=== PATIENT | female | born 1970 | race Caucasian/White ===

== ENCOUNTER → 2020-02-25 15:05 | Outpatient (BNV) | payer MEDICARE, SELFPAY | PROVIDERS: PCP Family Medicine; Visit Provider Internal Medicine | DX: D72.829 Elevated white blood cell count, unspecified (principal); C20 Malignant neoplasm of rectum; K76.89 Other specified diseases of liver | CPT/HCPCS: 99212; 99213; 99214; 99215; G2211 ==

== ENCOUNTER 2020-05-23 11:55 | Outpatient (REF) | payer MEDICARE, SELFPAY ==
--- NOTE | ~2020-05-23 | MM_ITS ---
EXAMINATION: MM SCREENING DIGITAL BREAST TOMOSYNTHESIS, BILATERAL CLINICAL INFORMATION: Screening. Asymptomatic. The lifetime risk of breast cancer based on the Tyrer-Cuzick Model is 7%. COMPARISON: Mammography: 10/16/2018; outside exams 09/28/2015, 05/19/2014 ([place], [place]). TECHNIQUE: Digital breast tomosynthesis is performed in both the craniocaudal and mediolateral oblique views along with computer-aided detection (CAD). Synthesized 2D images are generated from the tomosynthesis. FINDINGS: The breasts are heterogeneously dense, which may obscure small masses (ACR BI-RADS breast composition Category c). Parenchymal pattern is similar to prior studies. There is regional parenchymal asymmetry again noted in the upper outer quadrants, or an right. Bilateral parenchymal asymmetries are stable. There is a small nodule with adjacent biopsy clip marker again seen central 12:00 right breast. There is no interval mass or architectural abnormality or abnormal calcifications. No significant changes. MM/MM tomosynthesis screening BI IMPRESSION: No significant changes from prior exams. ASSESSMENT: BI-RADS 2: Benign RECOMMENDATION: Routine annual mammography screening. This patient's information was entered into a reminder system with a target due date for their next mammogram.
== END 2020-05-23 11:56 | disposition home or self-care (01) ==
LOC: HO.MAMMO 11:55
PROVIDERS: PCP Family Medicine; Visit Provider Family Medicine
DX: Z12.31 Encounter for screening mammogram for malignant neoplasm of breast (principal)
CPT/HCPCS: 77063; 77067

== ENCOUNTER 2020-06-15 10:07 | Outpatient (REF) | payer MEDICARE, SELFPAY ==
[2020-06-15 11:21] LABS: Alanine Aminotransferase 11 U/L (0-31); Albumin Level 4.1 g/dL (3.5-5.0); Alkaline Phosphatase 83 U/L (39-117); Anion Gap 11 (12-20); Aspartate Amino Transferase 12 U/L (5-31); Bilirubin Total 0.3 mg/dL (0.0-1.0); Blood Urea Nitrogen 9 mg/dL (9-16); Calcium 9.1 mg/dL (8.4-10.2); Carbon Dioxide 29 mmol/L (22-29); Chloride 104 mmol/L (96-108); Cholesterol 156 mg/dL; Estimated Glomerular Filt Rate > 60; Glucose Random 103 mg/dL (60-115); HDL Cholesterol 28 mg/dL; LDL Cholesterol Calculated 105 mg/dl; Potassium 4.8 mmol/L (3.3-5.1); Sodium 139 mmol/L (135-145); Total Protein 7.4 g/dL (6.5-8.0); Triglycerides 116 mg/dL
== END 2020-06-15 10:08 | disposition home or self-care (01) ==
LOC: HO.LAB 10:07
PROVIDERS: Absent Provider Internal Medicine; PCP Family Medicine; Visit Provider Family Medicine
DX: D72.829 Elevated white blood cell count, unspecified (principal); E78.5 Hyperlipidemia, unspecified; J44.9 Chronic obstructive pulmonary disease, unspecified
CPT/HCPCS: 36415; 80053; 80061

== ENCOUNTER 2021-04-11 11:16 | Outpatient (REF) | payer MEDICARE, SELFPAY ==
--- NOTE | ~2021-04-11 | MM_ITS ---
EXAMINATION: MM DIAGNOSTIC DIGITAL BREAST TOMOSYNTHESIS, BILATERAL US DIAGNOSTIC ULTRASOUND BREAST, LEFT CLINICAL INFORMATION: Recent palpable fullness subareolar left breast with tenderness. No discharge. Patient started on antibiotics. Due for yearly. No known family history breast cancer. The lifetime risk of breast cancer based on the Tyrer-Cuzick Model is 8%. COMPARISON: Mammography: 05/23/2020, 10/16/2018 TECHNIQUE: Digital breast tomosynthesis is performed in both the craniocaudal and mediolateral oblique views along with computer-aided detection (CAD). Synthesized 2D images are generated from the tomosynthesis. Ultrasound left breast is targeted to the retroareolar region. Grayscale imaging and color Doppler are performed without and with harmonics. FINDINGS: The breasts are heterogeneously dense, which may obscure small masses (ACR BI-RADS breast composition Category c). Right breast parenchymal pattern is similar to prior studies. There are scattered parenchymal asymmetries similar to prior exams. No interval mass or architectural abnormality or abnormal calcifications. There is old biopsy clip marker again seen central 12:00 position. Left breast has new subareolar mass measuring approximately 2 cm in diameter. This extends to the areola. There is borderline/mild nipple retraction. The remainder left breast is unremarkable. The bilateral axilla are stable. Ultrasound left breast demonstrates a complex heterogeneous predominantly cystic mass subareolar left breast measuring approximately 2.0 x 1.8 x 1.5 cm. There is suggestion of uniform thin peripheral rim. Color Doppler shows hyperemia around the mass. No definite color-flow within the lesion. There is mild increased through-transmission of sound. No focal duct ectasia. Results are discussed with the patient at time of visit. Finding left breast is suspicious for abscess. Management options discussed including ultrasound guided aspiration. In the meantime, patient to continue with antibiotics and follow-up with her provider later today for definitive management. Results discussed with primary care provider Ananth Tinajero NP at approximately 1509 hours. Ultrasound-guided aspiration of the lesion recommended and fluid sent for microbiology. If lesion will not aspirate, then this could be converted to core sampling. MM/MM tomosynthesis diagnostic BI IMPRESSION: Left: Complex mass with surrounding hyperemia retroareolar breast 2 cm, suspect abscess. Right: No mammographic evidence of malignancy. ASSESSMENT: BI-RADS 3: Probably Benign RECOMMENDATION: 1. Ultrasound-guided aspiration left breast. If lesion will not aspirate, then conversion to core sampling at same appointment. 2. Patient to continue with antibiotics as prescribed.
== END 2021-04-11 11:17 | disposition home or self-care (01) ==
LOC: HO.MAMMO 11:16
PROVIDERS: PCP Family Medicine; Visit Provider Emergency Medicine
DX: N63.42 Unspecified lump in left breast, subareolar (principal)
CPT/HCPCS: 76642; 77062; 77066

== ENCOUNTER 2021-05-14 13:10 | Outpatient (REF) | payer MEDICARE, SELFPAY | END 2021-05-14 13:11 | disposition home or self-care (01) | LOC: HO.MAMMO 13:10 | PROVIDERS: PCP Family Medicine; Visit Provider Emergency Medicine | DX: Z13.89 Encounter for screening for other disorder (principal) ==

== ENCOUNTER 2021-07-16 10:03 | Outpatient (REF) | payer MEDICARE, SELFPAY ==
--- NOTE | ~2021-07-16 | US_ITS ---
EXAMINATION: US DIAGNOSTIC ULTRASOUND BREAST, LEFT CLINICAL INFORMATION: Six-month follow up left breast lesion, question abscess. COMPARISON: 04/11/2021 and studies dating back to 05/19/2014. TECHNIQUE: Ultrasound of the breast is performed with real-time kuhn scale imaging and color Doppler. FINDINGS: In the retroareolar region approximately 9 o'clock location there is again noted to be a heterogeneous echotexture structure which appears better marginated now than on previous study and is a little smaller in appearance. There is some surrounding vascularity with no definite internal vascularity. Lesion now measures approximately 1.7 x 0.8 x 0.9 cm in size. Lesion is wider than it is tall. No distal sound shadowing is identified and there appears to be some minimal distal sound enhancement. Recommend 6 month followup left breast ultrasound only with mammography to be performed at its yearly interval. Results are discussed with the patient at time of visit. US/US breast LT limited IMPRESSION: Some improvement in appearance of heterogeneous structure retroareolar region 9 o'clock position of the left breast with mild decrease in size. 6 month followup ultrasound is recommended. ASSESSMENT: BI-RADS 3: Probably Benign. RECOMMENDATION: Diagnostic ultrasound in 6 months. This patient's information was entered into a reminder system with a target due date for their next mammogram.
== END 2021-07-16 10:04 | disposition home or self-care (01) ==
LOC: HO.MAMMO 10:03
PROVIDERS: PCP Family Medicine; Visit Provider Emergency Medicine
DX: N64.52 Nipple discharge (principal); N63.42 Unspecified lump in left breast, subareolar
CPT/HCPCS: 76642

== ENCOUNTER 2022-01-31 14:48 | Outpatient (REF) | payer OTHER, SELFPAY | END 2022-01-31 14:49 | disposition home or self-care (01) | LOC: HO.MAMMO 14:48 | PROVIDERS: PCP Family Medicine; Visit Provider Emergency Medicine | DX: N63.25 Unspecified lump in the left breast, overlapping quadrants (principal) | CPT/HCPCS: 76642; 77061; 77065 ==

== ENCOUNTER 2022-07-24 09:40 | Outpatient (REF) | payer OTHER, SELFPAY ==
--- NOTE | ~2022-07-24 | MM_ITS ---
EXAMINATION: MM SCREENING DIGITAL BREAST TOMOSYNTHESIS, BILATERAL CLINICAL INFORMATION: Screening. Asymptomatic. The lifetime risk of breast cancer based on the Tyrer-Cuzick Model is 9%. COMPARISON: Mammography: 01/31/2022, 04/11/2021, 05/23/2020, 10/16/2018; left breast ultrasound 01/31/2022 TECHNIQUE: Digital breast tomosynthesis is performed in both the craniocaudal and mediolateral oblique views along with computer-aided detection (CAD). Synthesized 2D images are generated from the tomosynthesis. FINDINGS: The breasts are heterogeneously dense, which may obscure small masses (ACR BI-RADS breast composition Category c). Parenchymal pattern is similar to prior studies and there is no developing density or interval significant mass or architectural abnormality. There are scattered bilateral stable asymmetries. There is a stable nodule with adjacent biopsy clip marker central mid right breast. No abnormal calcifications. The axilla and skin contours are unremarkable. MM/MM tomosynthesis screening BI IMPRESSION: No mammographic evidence of malignancy. ASSESSMENT: BI-RADS 2: Benign RECOMMENDATION: Routine annual mammography screening. This patient's information was entered into a reminder system with a target due date for their next mammogram.
== END 2022-07-24 09:41 | disposition home or self-care (01) ==
LOC: HO.MAMMO 09:40
PROVIDERS: PCP Family Medicine; Visit Provider Family Medicine
DX: Z12.31 Encounter for screening mammogram for malignant neoplasm of breast (principal)
CPT/HCPCS: 77063; 77067

== ENCOUNTER 2022-09-03 10:29 | Outpatient (REF) | payer OTHER, SELFPAY ==
[2022-09-03 13:33] LABS: Alanine Aminotransferase 34 U/L (0-31); Albumin Level 4.1 g/dL (3.5-5.0); Alkaline Phosphatase 117 U/L (39-117); Aspartate Amino Transferase 14 U/L (5-31); Bilirubin Direct 0.3 mg/dL (0.0-0.5); Bilirubin Total 0.4 mg/dL (0.0-1.0)
== END 2022-09-03 10:30 | disposition home or self-care (01) ==
LOC: HO.HHCL 10:29
PROVIDERS: Visit Provider Family Medicine
DX: R74.01 Elevation of levels of liver transaminase levels (principal)
CPT/HCPCS: 36415; 80076

== ENCOUNTER 2022-10-08 12:26 | Outpatient (REF) | payer OTHER, SELFPAY | END 2022-10-08 12:27 | disposition home or self-care (01) | LOC: HO.HHCL 12:26 | PROVIDERS: Visit Provider Family Medicine | DX: R74.01 Elevation of levels of liver transaminase levels (principal) | CPT/HCPCS: 87338 ==

== ENCOUNTER 2023-01-22 12:05 | Outpatient (REF) | payer OTHER, SELFPAY ==
[2023-01-22 13:29] LABS: Basophils Absolute Auto 0.1 X10*3/uL (0.0-0.2); Basophils Percent Auto 0.4 % (0-2); Eosinophils Absolute Auto 0.1 X10*3/uL (0.0-0.4); Eosinophils Percent Auto 0.7 % (0-4); Hematocrit 43.1 % (37.0-47.0); Hemoglobin 13.7 g/dl (12.0-16.0); Imm Gran Abs Auto 0.04 X10*3/uL (0.00-0.03); Imm Gran Pct Auto 0.3 % (0.0-0.4); Lymphocytes Percent Auto 52.1 % (20-40); MANUAL DIFF FLAG SCAN; Mean Corpuscular HGB Conc 31.8 g/dl (31.0-35.0); Mean Corpuscular Hemoglobin 28.6 pg (27.0-33.0); Mean Platelet Volume 11.5 fL (9.4-12.3); Monocytes Absolute Auto 0.6 X10*3/uL (0.1-1.2); Monocytes Percent Auto 4.8 % (2-11); Neutrophils Absolute Auto 5.6 x10*3/uL (2.0-8.3); Neutrophils Percent Auto 41.7 % (45-73); Platelet Count 220 X10*3/uL (160-400); Red Blood Count 4.79 X10*6/uL (4.20-5.50); Red Cell Distribution Width 21.7 % (11.0-16.0); SCAN SMEAR FLAG 1; White Blood Count 13.4 X10*3/uL (4.8-10.8)
[2023-01-22 13:33] LABS: Estimated Average Glucose 114 mg/dL; Hemoglobin A1c % 5.6 % (<6.0)
[2023-01-22 13:48] LABS: SLIDE REVIEW VERIFIED
[2023-01-22 14:12] LABS: Alanine Aminotransferase 17 U/L (0-31); Albumin Level 4.2 g/dL (3.5-5.0); Alkaline Phosphatase 114 U/L (39-117); Anion Gap 14 (12-20); Aspartate Amino Transferase 15 U/L (5-31); Bilirubin Direct 0.2 mg/dL (0.0-0.5); Bilirubin Total 0.4 mg/dL (0.0-1.0); Blood Urea Nitrogen 10 mg/dL (9-16); Calcium 10.1 mg/dL (8.4-10.2); Carbon Dioxide 26 mmol/L (22-29); Chloride 102 mmol/L (96-108); Cholesterol 132 mg/dL (<200); Estimated Glomerular Filt Rate > 60; Glucose Random 122 mg/dL (60-115); HDL Cholesterol 29 mg/dL (>40); LDL Cholesterol Calculated 77 mg/dL (<100); Magnesium 2.3 mg/dL (1.6-2.6); Potassium 4.4 mmol/L (3.3-5.1); Sodium 138 mmol/L (135-145); Total Protein 8.3 g/dL (6.5-8.0); Triglycerides 130 mg/dL (<150)
[2023-01-22 14:16] LABS: TSH reflex Free T4 0.85 uIU/mL (0.32-4.0); Vitamin D 25-OH Total 10.6 ng/mL (>30)
[2023-01-23 08:06] LABS: HIV AB/AG Nonreactive (Nonreactive); HIV Num 1 0.07 S/CO (0.00-0.99)
== END 2023-01-22 12:06 | disposition home or self-care (01) ==
LOC: HO.HHCL 12:05
PROVIDERS: Visit Provider Family Medicine
DX: F20.9 Schizophrenia, unspecified (principal); E78.5 Hyperlipidemia, unspecified; D72.829 Elevated white blood cell count, unspecified; Z20.2 Contact with and (suspected) exposure to infections with a predominantly sexual mode of transmission; E55.9 Vitamin D deficiency, unspecified
CPT/HCPCS: 36415; 80048; 80061; 80076; 82306; 83036; 83735; 84443; 85025; 87389

== ENCOUNTER 2023-06-30 16:11 | Outpatient (REF) | payer MEDICARE, SELFPAY | END 2023-06-30 16:12 | disposition home or self-care (01) | LOC: HO.LAB 16:11 | PROVIDERS: Visit Provider Internal Medicine | DX: Z13.89 Encounter for screening for other disorder (principal) ==

== ENCOUNTER 2023-07-17 13:42 | Outpatient (AMB) | payer MEDICARE, SELFPAY ==
--- NOTE | 2023-07-17 13:46 | MHC.OFFVIS ---
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 ASL interpretor Suzan Cohennilda present. She is doing well with concerns: diarrhea x 1-2wks. no fever, flu like symptoms, chills or abdominal pain. She reports prior MiraLax use. LMP 01/2023 or 02/2023, spacing out over the last year. Has one meal a day-dinner. Currently not sexually active, lastly 3-4yrs. ago. Denies any vaginal dryness or irritation. STI testing offered; she declines. Last pap smear; 2019, denies any abnormal Pap history. Last mammogram; up-to-date, booked for August 03. Denies any family history of breast, ovarian or colon cancer. She thinks about quitting smoking a little bit, 1 pack a day smoker. FOR[facility]LY [facility], [facility] Medical History History of gallbladder disease Chronic pain of left knee Low vitamin D level Dyslipidemia Mental health disorder Hx of Lyme disease Congenital deafness Surgical History Hx of tubal ligation Hx of appendectomy History of cholecystectomy Hx of foot surgery Family History (Updated 07/17/23 @ 14:29 by GRETTA Madison) Mother Hypertension Social History (Updated 07/17/23 @ 14:12 by Ale Rodas CNM) Household Members: None Housing: Apartment Alcohol intake: former Patient Tobacco Use Status: Current everyday Tobacco user Tobacco use type: Cigarette Cigarette Packs Per Day: 1 Substance Use Type: Marijuana service: No Current occupational status: disabled Female Reproductive History Menstrual Age of Menarche: 15 control method: permanent sterilization Total pregnancies: 4 Full term: 2 Number of Living Children: 2 Ab induced: 1 Ab spontaneous: 1 Date of last pap smear: 02/22/19 (negative) Date of Mammogram: 07/24/22 Review of Systems Const All systems reviewed & are unremarkable except as noted in HPI and below Reports as per HPI Eyes Reports no additional complaints ENT Reports no additional complaints Card Reports no additional complaints Resp Reports no additional complaints GI Reports as per HPI and Reports no additional complaints Reports as per HPI Musc Reports no additional complaints Skin/Breast Reports as per HPI Neuro Reports no additional complaints Psych Reports no additional complaints Endo Reports no additional complaints Augusto/Lymph Reports no additional complaints Aller/Immun Reports no additional complaints Physical Exam Vital Signs: Last Vital Signs BP 94/60 07/17/23 13:49 BMI result Body Mass Index 24.1 Const General: cooperative, healthy appearing, no acute distress, well developed and alert Orientation/consciousness: patient oriented x3 HEENT Head: Yes normal to inspection Teeth and gingiva: other (Teeth removed, no dentures in place) Eyes General: appearance normal, both eyes and all related structures Neck Neck: Yes normal visual inspection Thyroid: Thyroid normal Chest Chest palpation & inspection: normal inspection of the chest and other (no puckering, dimpling, peau de orange, retraction, discharge, masses) Breast/axilla inspection: normal inspection of the breasts Breast/axilla palpation: normal palpation of the breasts Resp Effort & Inspection: normal respiratory effort GI Inspection: Yes normal to inspection Palpation (GI): Soft to palpation Rectal Exam - Female: deferred Other: Liquid stool externally on perineum/ leg General: Yes bladder normal to palpation External Female Exam: normal external appearance and normal appearance of the urethra Speculum Exam - Vagina: normal appearance of the vagina, normal palpation and normal vaginal discharge Speculum Exam - Cervix: normal appearance of the cervix and normal palpation Bimanual exam- vagina & uterus: normal bimanual exam, normal palpation, uterine size normal, bladder normal to palpation, normal palpation and non-tender Bimanual Exam- Adnexa, other: no masses Skin General skin exam: no rashes or lesions noted Rashes: no rashes Neuro General: patient oriented x3 Cognition (Neuro): normal cognition Extrem General: Yes normal to inspection Psych Attitude: cooperative Thought process: Normal thought process present Assessment & Plan Assessment & Plan (1) Encounter for well woman exam with routine gynecological exam: Code(s): Z01.419 - Encounter for gynecological examination (general) (routine) without abnormal findings Category: Medical Plan Discussed: Current recommendations for pap smears per ASCCP guidelines. Breast awareness, periodic self breast exams and yearly mammogram. Maintain a healthy lifestyle. Follow up with Dr. Li regarding diarrhea as soon as possible and continue to hydrate well. Menopause verses perimenopause. Menopause is definitive of 1 year of no menses or 12 months in succession. Report any abnormal uterine bleeding in example prolonged episodes, or short intervals less than [address] Li regarding intention for tobacco sensation for support. Patient verbalizes understanding and agrees to the plan of care. She was given opportunity to ask questions and all questions were answered to the best of my ability. RTO in 1 year for annual editor publications exam. This note is constructed using voice recognition software. While every effort has been made to ensure accuracy, head refrigerating engineer errors may have been included. Coding Level of Care Code New Pt Prev Care 40-64y(86545) Diagnoses Encounter for well woman exam with routine gynecological exam Z01.419
[2023-07-17 13:49] VITALS: BP 94/60; BMI 24.1
== END 2023-07-17 15:08 | disposition home or self-care (01) ==
LOC: HO.HWS 13:42
PROVIDERS: PCP Family Medicine; Visit Provider Advanced Practice Midwife
DX: Z01.419 Encounter for gynecological examination (general) (routine) without abnormal findings (principal)
CPT/HCPCS: G0101

== ENCOUNTER → 2023-07-17 13:42 | Outpatient (BNVA) | payer MEDICARE, SELFPAY | PROVIDERS: PCP Family Medicine; Visit Provider Advanced Practice Midwife | DX: Z01.419 Encounter for gynecological examination (general) (routine) without abnormal findings (principal) | CPT/HCPCS: G0101 ==

== ENCOUNTER → 2023-08-04 14:45 | Outpatient (BNV) | payer MEDICARE, MEDICAID, SELFPAY | PROVIDERS: Visit Provider Radiology Diagnostic Radiology | DX: Z12.31 Encounter for screening mammogram for malignant neoplasm of breast (principal) | CPT/HCPCS: 77063; 77067 ==

== ENCOUNTER 2023-08-04 15:01 | Outpatient (REF) | payer MEDICARE, MEDICAID, SELFPAY ==
--- NOTE | ~2023-08-04 | MM_ITS ---
EXAMINATION: MM SCREENING DIGITAL BREAST TOMOSYNTHESIS, BILATERAL CLINICAL INFORMATION: Screening. Asymptomatic. COMPARISON: Mammography: This study is compared with prior exams dating back to 2019. TECHNIQUE: Procedure with a Digital breast tomosynthesis is performed in both the craniocaudal and mediolateral oblique views along with computer-aided detection (CAD). Synthesized 2D images are generated from the tomosynthesis. FINDINGS: There are scattered areas of fibroglandular density (ACR BI-RADS breast composition Category b). There are no significant masses, abnormal calcifications, or other abnormalities. There is a biopsy tissue marker associated with a benign mass in the superior aspect of the right breast. BI-RADS 2 MM/MM tomosynthesis screening BI IMPRESSION: No mammographic evidence of malignancy. ASSESSMENT: BI-RADS BI-RADS 2 - Benign Findings RECOMMENDATION: Routine annual mammography screening. 1 year F/U This examination should not preclude the clinical evaluation of a suspicious palpable abnormality. This patient's information was entered into a reminder system with a target due date for their next mammogram.
== END 2023-08-04 15:02 | disposition home or self-care (01) ==
LOC: HO.MAMMO 15:01
PROVIDERS: Visit Provider Family Medicine
DX: Z12.31 Encounter for screening mammogram for malignant neoplasm of breast (principal)
CPT/HCPCS: 77063; 77067

== ENCOUNTER 2023-10-08 10:38 | Outpatient (REF) | payer OTHER, SELFPAY ==
[2023-10-08 11:45] LABS: Basophils Absolute Auto 0.1 X10*3/uL (0.0-0.2); Basophils Percent Auto 0.3 % (0-2); Eosinophils Absolute Auto 0.1 X10*3/uL (0.0-0.4); Eosinophils Percent Auto 0.6 % (0-4); Hematocrit 33.6 % (37.0-47.0); Hemoglobin 10.4 g/dl (12.0-16.0); Imm Gran Abs Auto 0.06 X10*3/uL (0.00-0.03); Imm Gran Pct Auto 0.3 % (0.0-0.4); MANUAL DIFF FLAG SCAN; Mean Corpuscular Hemoglobin 23.4 pg (27.0-33.0); Mean Corpuscular Volume 75.5 fL (80.0-98.0); Mean Platelet Volume 9.7 fL (9.4-12.3); Monocytes Absolute Auto 0.9 X10*3/uL (0.1-1.2); Monocytes Percent Auto 5.4 % (2-11); Neutrophils Absolute Auto 9.7 x10*3/uL (2.0-8.3); Neutrophils Percent Auto 55.4 % (45-73); Platelet Count 454 X10*3/uL (160-400); Red Blood Count 4.45 X10*6/uL (4.20-5.50); Red Cell Distribution Width 18.4 % (11.0-16.0); SCAN SMEAR FLAG 1; White Blood Count 17.5 X10*3/uL (4.8-10.8)
[2023-10-08 11:47] LABS: Lymphocytes Absolute Auto 6.6 X10*3/uL (1.2-4.9)
[2023-10-08 12:07] LABS: Estimated Average Glucose 117 mg/dL; Hemoglobin A1c % 5.7 % (<6.0)
[2023-10-08 12:12] LABS: SLIDE REVIEW VERIFIED
[2023-10-08 12:29] LABS: Alanine Aminotransferase 7 U/L (0-31); Albumin Level 3.5 g/dL (3.5-5.0); Alkaline Phosphatase 89 U/L (39-117); Anion Gap 13 (12-20); Aspartate Amino Transferase 8 U/L (5-31); Bilirubin Direct < 0.2 mg/dL (0.0-0.5); Bilirubin Total 0.2 mg/dL (0.0-1.0); Blood Urea Nitrogen 12 mg/dL (9-16); Calcium 9.6 mg/dL (8.4-10.2); Carbon Dioxide 28 mmol/L (22-29); Chloride 101 mmol/L (96-108); Cholesterol 97 mg/dL (<200); Estimated Glomerular Filt Rate > 60; Glucose Random 107 mg/dL (60-115); HDL Cholesterol 25 mg/dL (>40); LDL Cholesterol Calculated 40 mg/dL (<100); Lactate Dehydrogenase 133 U/L (122-220); Magnesium 1.9 mg/dL (1.6-2.6); Sodium 138 mmol/L (135-145); Total Protein 7.1 g/dL (6.5-8.0); Triglycerides 161 mg/dL (<150)
[2023-10-08 12:41] LABS: HIV AB/AG Nonreactive (Nonreactive); HIV Num 1 0.04 S/CO (0.00-0.99)
[2023-10-08 12:48] LABS: TSH reflex Free T4 1.38 uIU/mL (0.32-4.0); Vitamin D 25-OH Total 12.3 ng/mL (>30)
[2023-10-09 12:58] LABS: Alpha Fetoprotein 1.9 ng/mL
== END 2023-10-08 10:39 | disposition home or self-care (01) ==
LOC: HO.LAB 10:38
PROVIDERS: PCP Family Medicine; Visit Provider Family Medicine
DX: F20.9 Schizophrenia, unspecified (principal); D72.829 Elevated white blood cell count, unspecified; R79.89 Other specified abnormal findings of blood chemistry; R59.9 Enlarged lymph nodes, unspecified; Z11.3 Encounter for screening for infections with a predominantly sexual mode of transmission; E78.5 Hyperlipidemia, unspecified
CPT/HCPCS: 36415; 80048; 80061; 80076; 82105; 82306; 82378; 83036; 83615; 83735; 84443; 85025; 87389

== ENCOUNTER 2023-10-23 13:31 | Outpatient (REF) | payer MEDICARE, SELFPAY ==
--- NOTE | ~2023-10-23 | CT_ITS ---
EXAMINATION: CT CHEST, ABDOMEN AND PELVIS WITH CONTRAST CLINICAL INFORMATION: Pretracheal lymph node. Right groin lymph node. COMPARISON: None available. TECHNIQUE: Multidetector volumetric CT imaging of the chest, abdomen, and pelvis was performed after the administration of 85 mL of Omnipaque 300 intravenous contrast without immediate adverse reactions. DOSE LOWERING TECHNIQUES: This CT examination was performed using dose optimization techniques as appropriate, variously including the following: - Automated exposure control - Adjustment of mA and/or kV according to patient size (this includes techniques or standardized protocols for targeted exams where dose is matched to indication/reason for exam; i.e. extremities or head) - Use of iterative reconstruction technique DLP: 236 mGy-cm. FINDINGS: CHEST: LUNGS: 3 mm nodule left upper lobe on image 105 series 7. No focal consolidation. Central airways are patent. MEDIASTINUM: Imaged thyroid gland is unremarkable. Right paratracheal lymph node measures 2.4 x 2.3 cm. No hilar lymphadenopathy. Great vessels are of normal caliber. Heart size is normal. No pericardial effusion. PLEURA: No pleural effusion. AXILLA: No axillary lymphadenopathy. Asymmetrically dense right breast tissue. Advise correlation with recent mammography. ABDOMEN AND PELVIS: LIVER, GALLBLADDER, AND BILIARY TREE: The liver is normal size and contour. Hypervascular lesion in the left hepatic lobe measures 2.3 x 2.7 cm. No biliary ductal dilatation is present. The gallbladder is surgically absent. PANCREAS: No ductal dilatation. SPLEEN: Enlarged. Measures 15.1 cm in AP dimension. ADRENAL GLANDS: 8 mm nodule of the left adrenal apex. No follow-up imaging is recommended. KIDNEYS AND URETERS: The kidneys are normal in size, shape, and attenuation. No hydronephrosis. No perinephric stranding. BLADDER: Unremarkable. GASTROINTESTINAL TRACT: There is an infiltrative soft tissue mass in the presacral region measuring 6.6 x 5.4 x 10.1 cm. There is involvement of the rectosigmoid colon as well as the vagina and cervix. There is extension into the perineum. Small free fluid and inflammatory stranding in the presacral space. A small nodule in the left hemipelvis measures 1.2 x 1.2 cm on image 70 of series 3. Marked fecal retention in the colon. No small bowel obstruction. ABDOMINAL WALL: No significant hernia is appreciated. LYMPH NODES: Enlarged right inguinal lymph node measures 1.9 x 1.4 cm. Right obturator lymph node measures 0.9 x 1.8 cm. VASCULAR: Normal caliber abdominal aorta. PELVIC VISCERA: Uterus and ovaries are within normal limits. OSSEOUS STRUCTURES: No destructive bone lesions. CT/CT abdomen pelvis w IV con IMPRESSION: Infiltrative soft tissue mass in the low pelvis/presacral region measuring 6.6 x 5.4 x 10.1 cm with invasion of the rectosigmoid colon as well as the cervix and vagina. There is extension into the perineum. Small free fluid and inflammatory changes in the presacral space. This most likely represents neoplasm. PET/CT is recommended. There is possible metastatic disease with a small nodule in the left hemipelvis measuring 1.2 x 1.2 cm, an enlarged right inguinal lymph node measuring 1.9 x 1.4 cm and an enlarged right paratracheal lymph node measuring 2.4 x 2.3 cm. 3 mm left upper lobe pulmonary nodule is nonspecific. Hypervascular left hepatic lesion measuring 2.3 x 2.7 cm may be further characterized with MRI. Splenomegaly. Findings were reviewed and discussed with Dr. Li at 9:40 AM on 10/24/2023. Electronically signed by: Lul Kan MD 10/24/2023 09:40 AM EDT
[2023-10-23] MEDS: Barium Sulfate Oral (Vanilla) 450 ML ORAL.SUSP PO ×2 (16:26→16:27)
[2023-10-23] MEDS: iohexoL 350 MG/ML 100 ML INFUS..BTL IV (16:26)
== END 2023-10-23 13:32 | disposition home or self-care (01) ==
LOC: HO.CT 13:31
PROVIDERS: PCP Family Medicine; Visit Provider Family Medicine
DX: R59.9 Enlarged lymph nodes, unspecified (principal); R93.89 Abnormal findings on diagnostic imaging of other specified body structures
CPT/HCPCS: 71260; 74177; Q9967

== ENCOUNTER 2023-10-28 10:16 | Inpatient (IN) | payer OTHER, SELFPAY ==
--- NOTE | ~2023-10-28 | US_ITS ---
Pelvic mass with enlarged right inguinal lymph node PROCEDURES: 1. Limited preprocedure ultrasound of the groin. Permanent images saved in PACS. 2. Ultrasound-guided biopsy of a right inguinal lymph node 3. Limited postprocedure ultrasound of the right groin. Permanent images saved in PACS. CLINICIANS: Shayne Parish PA-C MEDICATIONS: -Lidocaine 1% 10 mL SQ -Antibiotics: None -For additional details, please see nursing flowsheet. COMPLICATIONS: None ESTIMATED BLOOD LOSS: < 5 ml CONTRAST: None SPECIMENS: 5 x 18 g cores were sent for pathology and flow cytometry. PROCEDURE NOTE: The procedure, risks, benefits, and alternatives were carefully explained to the patient and written informed consent was obtained. The patient was placed supine on the exam table. A timeout was performed. A limited ultrasound of the right groin was performed to localize the enlarged, abnormal right inguinal lymph node and choose appropriate needle entry and trajectory. The patient was prepped and draped in usual sterile fashion. The skin and deeper soft tissues were anesthetized with lidocaine. Under ultrasound guidance, a 17 gauge trocar needle was advanced to the right inguinal lymph node An 18 gauge biopsy device was inserted through the trocar needle advanced into the lesion. A total of 5, 18-gauge cores were performed. The specimens were placed in formalin and RPMI. The needle was removed. A limited post procedure ultrasound was then performed. Images were saved in PACS. A dry dressing was applied and secured with Tegaderm. There were no immediate complications. The patient was stable after the procedure and was transferred to the patient's room. US/US biopsy lymph node Impression: Ultrasound-guided biopsy of right inguinal lymph node. This procedure was performed by Shayne Parish PA-C and supervised by Dr. Forbes. Electronically signed by: Sky Forbes MD 11/06/2023 03:19 PM EDT
--- NOTE | ~2023-10-28 | XR_ITS ---
EXAMINATION: XR CHEST CLINICAL INFORMATION: Hypoxia COMPARISON: CT scan of the chest October 2023 TECHNIQUE: Frontal view of the chest was obtained. FINDINGS: Subtle ill-defined opacity overlying the mid-upper right lung. Left lung clear. Cardiomediastinal silhouette normal. Bone and soft tissues unremarkable XR/XR chest 1V IMPRESSION: Subtle ill-defined opacity overlying the mid-upper right lung. This this is not present on the prior CT exam. This could reflect a developing pneumonia. Electronically signed by: Vicente Hutson MD 11/05/2023 03:31 PM EDT
[2023-10-28 10:31] VITALS: BP 92/67; PULSE 96; RESP 18; TEMP 37.1; O2SAT 97; BMI 21.4
[2023-10-28 10:57] LABS: Basophils Absolute Auto 0.1 X10*3/uL (0.0-0.2); Basophils Percent Auto 0.4 % (0-2); Eosinophils Absolute Auto 0.1 X10*3/uL (0.0-0.4); Eosinophils Percent Auto 0.6 % (0-4); Hematocrit 30.2 % (37.0-47.0); Hemoglobin 9.5 g/dl (12.0-16.0); Imm Gran Abs Auto 0.06 X10*3/uL (0.00-0.03); Imm Gran Pct Auto 0.4 % (0.0-0.4); Lymphocytes Absolute Auto 7.1 X10*3/uL (1.2-4.9); Lymphocytes Percent Auto 42.9 % (20-40); MANUAL DIFF FLAG SCAN; Mean Corpuscular HGB Conc 31.5 g/dl (31.0-35.0); Mean Corpuscular Hemoglobin 23.5 pg (27.0-33.0); Mean Corpuscular Volume 74.8 fL (80.0-98.0); Mean Platelet Volume 8.6 fL (9.4-12.3); Monocytes Absolute Auto 0.8 X10*3/uL (0.1-1.2); Monocytes Percent Auto 4.9 % (2-11); Neutrophils Absolute Auto 8.4 x10*3/uL (2.0-8.3); Neutrophils Percent Auto 50.8 % (45-73); Platelet Count 412 X10*3/uL (160-400); Red Blood Count 4.04 X10*6/uL (4.20-5.50); SCAN SMEAR FLAG 1; White Blood Count 16.4 X10*3/uL (4.8-10.8)
[2023-10-28 11:01] LABS: Red Cell Distribution Width 17.8 % (11.0-16.0)
--- OUTSIDE RECORDS SUMMARY | 2023-10-28 11:26 | XMS_ITS | Continuity of Care Document ---
Author Organization [facility] Address [address] [place] [address]- Care Team Providers Care Supervisory Civil Engineer Name Role Phone Sneha Li MD Primary Care Physician Encounter 05/30/23 - 06/12/23 [facility] [address] [place] [id number]- Discharge Disposition: GOALS MET Allergies, Adverse Reactions, Alerts No Known Allergies Immunizations Given and Recorded Vaccine Date Status Refusal Reason pneumococcal 23-valent vaccine 11/22/19 Given influenza virus vaccine, inactivated 11/22/19 Give n Medications Ativan 0.5 mg oral tablet 1 tablet = 0.5 mg, By Mouth, Daily at bedtime, Maintenance, 04/29/23 10:55:00 EDT, Partial fill upon patient request if the prescription is for a schedule II opioid drug. Start Date: 04/29/23 Status: Ordered Colace sodium 100 mg oral capsule 100 mg, 1, capsule, By Mouth, 2 times a day, PRN, # 100 capsule, Refills 0, Tot. Refills 0, Maintenance, for constipation, 05/29/23 13:46:00 EDT, Route to Pharmacy Electronically, [facility], Partial fill upon patient request if the pres... Start Date: 05/29/23 Status: Ordered MiraLax oral powder for reconstitution = 17 Gm, By Mouth, Daily, PRN Constipation, Maintenance, 04/29/23 10:54:00 EDT, Partial fill upon patient request if the prescription is for a schedule II opioid drug. Start Date: 04/29/23 Status: Ordered omeprazole 20 mg oral delayed release tablet 1 tablet = 20 mg, By Mouth, Daily, PRN Dyspepsia, # 30 capsule, 0 Refills, Maintenance, 08/10/22 11:15:00 EDT, CR Tablet, Partial fill upon patient request if the prescription is for a schedule II opioid drug. Start Date: 08/10/22 Status: Ordered risperiDONE 1 mg oral tablet 0.5 mg, 0.5, tablet, By Mouth, Daily, @Noon, Maintenance, 04/29/23 10:53:00 EDT, Partial fill upon patient request if the prescription is for a schedule II opioid drug. Start Date: 04/29/23 Status: Ordered risperiDONE 1 mg oral tablet 1 mg, 1, tablet, By Mouth, Daily in AM, Refills 0, Maintenance, 08/10/22 10:12:00 EDT, Partial fillupon patient request if the prescription is for a schedule II opioid drug. Start Date: 08/10/22 Status: Ordered risperiDONE 4 mg oral tablet 1 tablet = 4 mg, By Mouth, Daily at bedtime, Maintenance, 04/29/23 10:54:00 EDT, Partial fill upon patient request if the prescription is for a schedule II opioid drug. Start Date: 04/29/23 Status: Ordered Walker See Instructions, # 1 each, Maintenance, walker with wheels, 05/02/23 12:12:00 EDT, dx post procedure weakness, Supply Start Date: 05/02/23 Status: Ordered Walker See Instructions, # 1 each, Maintenance, walker with wheels, 05/02/23 12:16:00 EDT, dx post procedure weakness, Supply Start Date: 05/02/23 Status: Ordered Problem List Condition Confirmation Course Effective Dates Status Health St at[facility] Informant Cigarette nicotine dependence Confirmed Active Chronic psychosis Confirmed Active Social History Social History Type Response Smoking Status Former smoker, quit more than 30 days ago; Other: Pt quit 3 months ago; entered on: 04/28/23 Sex Patient Care team information Care Team Personnel Name: Sneha Li MD Position: [facility] Outreach Member Role: PCP Address: Address: [address] [place] [address] [place] [id number] Name: Rebeka Jimenez RN Position: S RN Member Role: Primary Care Nurse Name: Jamaal Cooney RN Position: S RN Member Role: Primary Care Nurse Name: Cathleen Hudson RN Position: S RN Member Role: Primary Care Nurse Name: Kathleen Muniz RN Position: S RN Member Role: Primary Care Nurse Care Team Related Persons Name: ROLA VEGA Name: SHA CORONADO Name: GAUTAM MONTIEL Address: home [address] [place] [address]
--- OUTSIDE RECORDS SUMMARY | 2023-10-28 11:26 | XMS_ITS | Continuity of Care Document ---
Author Organization [facility] Address [address] [place] [id number]- Care Team Providers Care Bead Wrapper Name Role Phone [place] Sneha AVILEZ Primary Care Physician Encounter [facility] Date(s): 05/02/23 - 06/01/[address] [id number] Attending Physician: Not on Staff, Attending MD Admitting Physician: Not on Staff, Admitting MD Referring Physician: Not on Staff, Referring MD Allergies, Adverse Reactions, Alerts No Known Allergies Immunizations Given and Recorded Vaccine Date Status Refusal Reason pneumococcal 23-valent vaccine 11/22/19 Given influenza virus vaccine, inactivated 11/22/19 Give n Medications amoxicillin-clavulanate 875 mg-125 mg oral tablet 1 tablet, By Mouth, 2 times a day, for 4 days, # 7 tablet, 0 Refills, Acute 06/02/23 13:44:00 EDT, 05/29/23 13:44:00 EDT, Tablet, [facility], Partial fill upon patient request if the prescription is for a schedule II opioid drug., 159, c... Start Date: 05/29/23 Stop Date: 06/02/23 Status: Ordered Ativan 0.5 mg oral tablet 1 tablet [...] 05/29/23 13:46:00 EDT, Route to Pharmacy Electronically, [facility], Partial fill upon patient [...] opioid drug. Start Date: 04/29/23 Status: Ordered Tylenol 325 mg oral tablet 650 mg, By Mouth, Every 4 hours, for 14 days, # 84 tablet, Refills 0, Tot. Refills 0, Acute 06/12/23 13:44:00 EDT, 05/29/23 13:44:00 EDT, Route to Pharmacy Electronically, [facility], Partial fill upon patient request if the prescription... Start Date: 05/29/23 Stop Date: 06/12/23 Status: Ordered Walker See Instructions, # 1 [...] Care team information Care Team Personnel Name: Guillermo AVILEZ , Sneha Arceo Position: [facility] Outreach Member Role: PCP Address: Address: [address] [place] [address] [place] [id number] Name: eRbeka Jimenez RN Position: S RN Member Role: Primary Care Nurse Name: Jamaal Cooney RN Position: S RN Member Role: Primary Care Nurse Name: Cathleen Hudson RN Position: S RN Member Role: Primary Care Nurse Name: Kathleen Muniz RN Position: S RN Member Role: Primary Care Nurse Care Team Related Persons Name: ROLA VEGA Name: SHA CORONADO Name: GAUTAM MONTIEL Address: [address] [place] [address]
--- OUTSIDE RECORDS SUMMARY | 2023-10-28 11:26 | XMS_ITS | Continuity of Care Document ---
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 Pitting Machine Operator Name Role Phone Sneha Li MD Primary Care Physician Encounter [facility] [place] Date(s): 09/05/22 - 10/24/[address] [place], [place] [address] Attending Physician: Jaylene Guajardo MD Referring Physician: Sneha Li MD Allergies, Adverse Reactions, Alerts No Known Allergies Immunizations Given and Recorded Vaccine Date Status Refusal Reason pneumococcal 23-valent vaccine 11/22/19 Given influenza virus vaccine, inactivated 11/22/19 Give n Medications diazepam 2 mg oral tablet 2 mg, 1, tablet, By Mouth, Daily, PRN, Refills 0, Maintenance, as needed for anxiety, 08/10/22 11:12:00 EDT, Partial fill upon patient request if the prescription is for a schedule II opioid drug. Start Date: 08/10/22 Status: Ordered LORazepam 0.5 mg oral tablet 1 tablet = 0.5 mg, By Mouth, 2 times a day, PRN Anxiety, # 60 tablet, 0 Refills, Maintenance, 11/29/19 11:39:00 EDT, Tablet Start Date: 11/29/19 Status: Ordered omeprazole 20 mg oral delayed release tablet 1 tablet = 20 mg, By Mouth, Daily, PRN Dyspepsia, # 30 tablet, 0 Refills, Maintenance, 08/10/22 11:15:00 EDT, CR Tablet, Partial fill upon patient request if the prescription is for a schedule II opioid drug. Start Date: 08/10/22 Status: Ordered risperiDONE 1 mg oral tablet See Instructions, 1 tabletin am and 1/2 tab at noon, Refills 0, Maintenance, 08/10/22 10:12:00 EDT,Instructions Replace Required Details, Partial fill upon patient request if the prescription is fora schedule II opioid drug. Start Date: 08/10/22 Status: Ordered risperiDONE 4 mg oral tablet 1 tablet = 4 mg, By Mouth, Daily at bedtime, # 14 capsule, 0 Refills, Maintenance, 01/14/21 17:58:00 EST, [facility] #[id number], 158, cm, 01/14/21 10:58:00 EST, Height, 61.3, kg, 01/14/21 10:58:00 EST, Dry Weight Start Date: 01/14/21 Status: Ordered sertraline 50 mg oral tablet 1 tablet = 50 mg, By Mouth, Daily, # 30 tablet, 0 Refills, Maintenance, 08/25/22 14:48:00 EDT, Tablet, [facility], Partial fill upon patient request if the prescription is for a schedule II opioid drug., 158, cm, 08/25/22 7:37:00 EDT, He... Start Date: 08/25/22 Stop Date: 09/24/22 Status: Ordered Problem List Condition Confirmation Course Effective Dates Status [facility] Informant Cigarette nicotine dependence Confirmed Active Obese class I Confirmed Active Chronic psychosis Confirmed Active Social History Social History Type Response Smoking Status 10 or more cigarette s (1/2 pack or more)/day in last 30 days entered on: 03/23/19 Sex Patient Care team information Care Team Personnel Name: Guillermo AVILEZ , Sneha Arceo Position: [facility] Outreach Member Role: PCP Address: Address: [address] [place] [address] [address] Name: Alana Palma RN Position: S RN Member Role: Primary Care Nurse Name: Cathy Ramírez RN Position: S RN Member Role: Primary Care Nurse Name: Kathleen Muniz RN Position: S RN Member Role: Primary Care Nurse Care Team Related Persons Name: SHA CORONADO Name: GAUTAM MONTIEL
--- OUTSIDE RECORDS SUMMARY | 2023-10-28 11:26 | XMS_ITS | Continuity of Care Document ---
Author Organization [facility] Address [address] [facility] [place] [address]- Care Team Providers Care Still Photographer Name Role Phone [place] Sneha AVILEZ Primary Care Physician Encounter 05/07/23 - 05/14/23 [facility] [address], [address] [place], [place] [address] Attending Physician: Hitesh Gomez MD Admitting Physician: Hitesh Gomez MD Referring Physician: Hitesh Gomez MD Allergies, Adverse Reactions, Alerts No Known [...] Mouth, 2 times a day, PRN, # 20 capsule, Refills 0, Tot. Refills 0, Maintenance, for constipation, 05/02/23 10:09:00 EDT, Route to Pharmacy Electronically, [facility], Partial fill upon patient request if the presc... Start Date: 05/02/23 Status: Ordered MiraLax oral powder for reconstitution [...] List Condition Confirmation Course Effective Dates Status [facility] at Informant Cigarette nicotine dependence Confirmed Active Chronic psychosis Confirmed Active Results Radiology Reports * Exam Date Time Procedure Performing Provider Status 05/07/23 11:[address] Abd/Pelvis W/ IV + Oral Contrast Danyelle Bean (Verified) Notes: (CT Abd/Pelvis W/ IV + Oral Contrast) Reason For Exam: Other:;Other: RESULT: CT Abd/Pelvis W/ IV + Oral Contrast CT Abd/Pelvis W/ IV + Oral Contrast Reason: History of ruptured appendicitis status post drain placement. TECHNIQUE: Spiral CT through the abdomen and pelvis with IV contrast formatted in 3 planes. 100 cc of Omnipaque 300 was administered intravenously. This study was performed with oral contrast. Weight-based protocol using automatic tube modulation was used to optimize exposure parameters. CTDIvol Body: 12.32 mGy, DLP Body: 672 mGy*cm. COMPARISON: Prior CTs, most recently 04/28/2023. FINDINGS: Insecticide Sprayer View Findings, Lines and Tubes: Right lower quadrant pigtail drainage catheter noted. Visualized Chest: Lung bases are clear. No pleural effusion. The heart is normal in size. No pericardial effusion. Diaphragm: Normal. Liver: Liver is mildly enlarged. There is no focal hepatic mass. The main portal vein is patent. Gallbladder: Absent consistent with prior cholecystectomy. Bile ducts: No biliary ductal dilation. Spleen: Spleen is enlarged measuring 15.6 cm in AP dimension. Pancreas: Normal. Adrenal glands: Normal. Kidneys and ureters: No hydronephrosis, stones, or suspicious masses. Bladder: Normal. Reproductive organs: Unremarkable. Stomach, small bowel, and large bowel: The stomach and small bowel are unremarkable. Scattered fluid levels are seen in the colon. Small outpouching/diverticulum is seen along the right upper lateralrectal wall with minimal surrounding stranding (series 2, image 140), likely related to the abscessabove it. Appendix: 8 mm calcified appendicolith is again seen in the mid appendix, with dilated thick-walledappendix distal to this measuring up to about 1.3 cm in diameter. Peritoneum and retroperitoneum: There is been interval placement of a drain in the right pelvis entering anteriorly. Previously noted multiloculated abscess has significantly decreased in size with surrounding stranding noted. A small discrete component is seen deep in the pelvis, posterior to the pigtail catheter measuring about 2.9 x 1.4 cm (series 2, image 125). There is no free air. No omental or mesenteric lesions. Lymph nodes: No enlarged lymph nodes. Blood vessels: Moderate calcified and noncalcified plaque seen along the aorta. No aortic aneurysm.No evidence of venous thrombosis. Abdominal and pelvic wall: Right lower quadrant anterior abdominal wall pigtail catheter is present. Bones: Mild degenerative changes are seen in the spine. IMPRESSION: 1. There has been placement of a right lower quadrant pigtail catheter with significant decrease insize in the previously noted abscess. A residual 2.9 x 1.4 cm abscess is seen deep in the right pelvis. 2. 8 mm calcified appendicolith is again seen with wall thickening and dilatation of the appendix distal to this consistent with appendicitis. 3. Fluid levels are seen in the colon, which may represent diarrheal illness. This should be correlated clinically. 4. Hepatosplenomegaly. WSN: [id number] Ordering Physician: Hitesh Gomez Dictated By: Toyin Mcbride MD Dictated Date/Time: 05/07/23 12:36 p Reviewed By: Toyin Mcbride MD Signed By: Toyin Mcbride MD Signed Date/Time: 05/07/23 12:36 pm Transcribed By: CSTashi Transcribed Date/Time: 05/07/23 12:03 pm Social History Social History Type Response Smoking Status Former smoker, quit more than 30 days ago; Other: Pt quit 3 months ago; entered on: 04/28/23 Sex Patient Care team information Care Team Personnel Name: Sneha Li MD Position: [facility] Outreach Member Role: PCP Address: Address: [address] [place] [address] [place] [address] Name: Rebeka Jimenez RN Position: S RN Member Role: Primary Care Nurse Name: Jamaal Cooney RN Position: S RN Member Role: Primary Care Nurse Name: Kathleen Muniz RN Position: S RN Member Role: Primary Care Nurse Care Team Related Persons Name: ROLA VEGA Name: SHA CORONADO Name: GAUTAM MONTIEL
--- OUTSIDE RECORDS SUMMARY | 2023-10-28 11:26 | XMS_ITS | Continuity of Care Document ---
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 Outreach Member Role: PCP Address: Address: [address] [place] [address] [address] [place], [place] [address] Name: Rebeka Jimenez RN Position: S RN Member Role: Primary Care Nurse Name: Jamaal Cooney RN Position: S RN Member Role: Primary Care Nurse Name: Cathleen Hudson RN Position: S RN Member Role: Primary Care Nurse Name: Kathleen Muniz RN Position: S RN Member Role: Primary Care Nurse Care Team Related Persons Name: ROLA VEGA Name: SHA CORONADO Name: ST LARASchuylerGAUTAM Address: [place] [address] [place] [address]
--- OUTSIDE RECORDS SUMMARY | 2023-10-28 11:26 | XMS_ITS | Continuity of Care Document ---
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 Past Surgical History not reported ?? Social History Alcohol Details:??Use: Never. Substance Abuse Details:??Use: Past. ??Type: Marijuana. Tobacco Details:??Use: 10 or more cigarettes (1/2 pack or more)/day in last 30 days. ? Psychosocial History ??smokes few cig, but quite recently, no drinking or marijuana ?? Family History negative for stones ? Medications Home Medications Diazepam (diazepam 2 mg oral tablet)?2?Milligram?1?tablet?By Mouth?Daily?as needed?as needed for anxiety Lorazepam (LORazepam 0.5 mg oral tablet)?1?tab(s)?0.5?Milligram?By Mouth?2 times a day?as needed?Anxiety Omeprazole (omeprazole 20 mg oral delayed release tablet)?1?tab(s)?20?Milligram?By Mouth?Daily?as needed?Dyspepsia Risperidone (risperiDONE 4 mg oral tablet)?1?tab(s)?4?Milligram?By Mouth?Daily atbedtime Risperidone (risperiDONE 1 mg oral tablet)?See Instructions?1 tabletin am and 1/2 tab at noon ? Inpatient Medications Medications (7) Active SCHEDULED: (5) Heparin 5000 units/mL Inj (1 mL) (Heparin Inj) ??5,000 units 1 mL, Subcutaneous Injection, 3 times a day NaCl 0.9% Flush 3ml (NaCL 0.9% Flush) ??3 mL, IV Push, Every 8 hours Pantoprazole 20 mg EC Tablet (pantoprazole 20 mg oral delayed release tablet) ??20 mg, By Mouth, Daily Risperidone 1 mg Tablet (risperiDONE 1 mg oral tablet) ??1.5 mg, By Mouth, Daily before lunch Risperidone 1 mg Tablet (risperiDONE 1 mg oral tablet) ??4 mg, By Mouth, Daily at bedtime CONTINUOUS: (1) Lactated Ringers (1000 mL) Cont IV 1,000 mL (LR 1,000 mL) ??1,000 mL, IV Infusion, 125 mL/hr PRN: (1) Diazepam 2 mg Tablet (diazepam 2 mg oral tablet) ??2 mg, By Mouth, Daily ? EKG study * Event Display: ECG 12-Lead Authored Date: Please click on pdf link to open report * Event Display: ECG 12-Lead Authored Date: Ventricular Rate: 67 BPM Atrial Rate: 67 BPM P-R Interval: 170 ms QRS Duration: 74 ms Q-T Interval: 402 ms QTC Calculation(Bazett): 424 ms P [place]: 50 degrees R [place]: 69 degrees T [place]: 53 degrees Normal sinus rhythm Normal ECG When compared with ECG of 14-JAN-2021 10:11, No significant change was found Confirmed by WALT VERA MD ([id number]) on 08/22/2022 4:13:28 PM [place]: WALT VERA MD * Event Display: EKG Authored Date: Hospital Progress note * Isabelle Benavides MD, [facility]: PERFORM Event Display: Progress Note Hospital Authored Date: Patient: ??RICK, MAY ? Age:??51 Years?Sex:??Female?:??1970?? Subjective Seen and examined the patient with the help of silver designer machine.?? No acute overnight events.?? LFTs are improving.?? No fevers.?? Leukocytosis is improving.?? Patient tolerating diet.?? Blood pressure labile.?? Patient no longer needs any psychiatric admission after psych evaluation.?? Recommendations provided for medication in hospital and outpatient. Tolerated of lap yoni 08/23.?? Postop??doing well. ASL in person hardware test engineer service is not available to proceed with d/c. So d/c postponed for tomorrow.?? Review of Systems As reviewed above. Objective Vital Signs?? Temperature: 98.2 DegF (08/25/22 07:37:00) Temperature Route: Oral (08/25/22 07:37:00) Pulse Rate: 71 bpm (08/25/22 07:37:00) Respiratory Rate: 18 br/min (08/25/22 07:37:00) Systolic Blood Pressure: 109 mm Hg (08/25/22 07:37:00) Diastolic Blood Pressure: 64 mm Hg (08/25/22 07:37:00) Blood pressure sites: Arm, right (08/25/22 07:37:00) Mean Arterial Pressure: 79 mm Hg (08/25/22 07:37:00) Pulse Pressure: 45 mm Hg (08/25/22 07:37:00) Oxygen Saturation: 98 % (08/25/22 07:37:00) Mode of Delivery (Oxygen): Room air (08/25/22 07:37:00) Early Warning Score: 0 (08/25/22 08:52:29) ? Physical Exam General: lying on the bed, saturating well on room air.?? Cardiovascular: S1, S2. Regular rhythm. No MRG. Respiratory: Reduced breath sound on bases, No RRR.?? Gastrointestinal: Soft, Nontender, Non distended, Normal bowel sounds.?? Bandage + Neurological: Cranial nerves intact. Motor and sensory intact. Results Recent Labs BLOOD COUNT & DIFF WBC 12.2 k/mm3 (High)?? 08/25/2022 00:52 RBC 3.92 m/mm3 (Low)?? 08/25/2022 00:52 Hgb 11.2 Gm/dL (Low)?? 08/25/2022 00:52 Hct 35.3 % (Low)?? 08/25/2022 00:52 MCV 90.1 femtoliters ()?? 08/25/2022 00:52 MCH 28.6 pg ()?? 08/25/2022 00:52 MCHC 31.7 g/dL (Low)?? 08/25/2022 00:52 Platelet Count 188 k/mm3 ()?? 08/25/2022 00:52 RDW-SD 55.3 femtoliters (High)?? 08/25/2022 00:52 MPV 10.0 femtoliters ()?? 08/25/2022 00:52 Nucleated RBC (Automated) 0.0 #/100 WBC'S ()?? 08/25/2022 00:52 Abs. NRBC 0.0 k/mm3 ()?? 08/25/2022 00:52 ?? CHEM GENERAL Sodium 139 mmol/L ()?? 08/25/2022 00:52 Potassium 3.6 mmol/L ()?? 08/25/2022 00:52 Chloride 105 mmol/L ()?? 08/25/2022 00:52 Bicarbonate Level 25 mmol/L ()?? 08/25/2022 00:52 Anion Gap 9 ()?? 08/25/2022 00:52 Glucose Level 126 mg/dL (High)?? 08/25/2022 00:52 BUN 7 mg/dL ()?? 08/25/2022 00:52 Creatinine-Blood 0.7 mg/dL ()?? 08/25/2022 00:52 Estimated GFR Creatinine 101 ML/MIN/1.73 M2 ()?? 08/25/2022 00:52 Calcium 8.0 mg/dL (Low)?? 08/25/2022 00:52 Phosphorus 2.2 mg/dL (Low)?? 08/25/2022 00:52 Magnesium 1.8 mg/dL ()?? 08/25/2022 00:52 Protein, Total 5.4 Gm/dL (Low)?? 08/25/2022 00:52 Albumin 3.1 Gm/dL (Low)?? 08/25/2022 00:52 Alkaline Phosphatase 129 units/L (High)?? 08/25/2022 00:52 AST (SGOT) 72 units/L (High)?? 08/25/2022 00:52 ALT (SGPT) 128 units/L (High)?? 08/25/2022 00:52 Bilirubin, Total 1.0 mg/dL ()?? 08/25/2022 00:52 Bilirubin, Direct 0.7 mg/dL (High)?? 08/25/2022 00:52 Bilirubin, Indirect 0.3 mg/dL ()?? 08/25/2022 00:52 ?? URINE OTHER Est Creatinine Clearance 77.61 mL/min ()?? 08/25/2022 02:00 ? Assessment/Plan 51-year-old female, history of schizophrenia and congenital deafness, extremity with pain and discomfort as well as hallucination. Patient was later found to have some significant choledocholithiasis.? Choledocholithiasis (K80.50):?? Symptomatic cholelithiasis S/p Interval cholecystectomy 08/23 POD 1 Patient was found to have choledocholithiasis on examination and ultrasound??with obstructive stonemeasuring, CBD 1 cm. No signs of infections??as of now(have chronic leukocytosis at baseline)??No fever or??chills. LFTsare trending down s/p??ERCP with sphincterotomy and stones extraction by Dr Latham 08/21 Significant cholelithiasis.?? S/p Interval cholecystectomy 08/23 POD 2 Patient is doing well postoperatively. No fever/chills. She is tolerating a diet?? Dressing down in 2 days, band-aid after that. per surgery team? GERD (gastroesophageal reflux disease) (K21.9):??continue on PPI ?? Auditory Hallucinosis (F28): Worsening auditory hallucination over the last few weeks ??due to??medication nonadherence. Psychiatry was consulted.?? Continue risperidone 1.5 mg a.m and 4 mg at??bedtime Hold sertraline and Valium. Haldol 5 mg 3 times a day for agitation as needed Trazodone 50 mg nightly as needed for insomnia ?? VTE Prophylaxis:??Ambulation Code Status:??Full Patient is medically??and psychiatrically??stable and cleared for discharge ASL in person hardware test engineer service is not available to proceed with d/c. So d/c postponed for tomorrow.? I spent a total of 42??minutes today reviewing the chart/medical records, speaking with the patient, formulating and discussing the treatment plan and documenting the findings in encounter ?? Disclaimer: This dictation was accomplished with use of [employer] voice recognition software, prone tomedical word misidentifications and grammatical errors. The physician does strive to identify and correct these, but some could still be present. Please do not hesitate to contact physician for clarifications.? * Isabelle Benavides MD, [place]: PERFORM Event Display: Progress Note Hospital Authored Date: 2.30 PM. ??Hand Riveter service team was able to??coordinate an in-person military aircraft designer. ??was able to coordinate discharge for today. * Alana Palma RN: PERFORM, SIGN, VERIFY Event Display: Progress Note Hospital Authored Date: Patient: RICK MAY Age: 51 years Sex: Female : 1970 Associated Diagnoses: None Author: Alana Palma RN Findings Problem Related to Evaluation Pt. AOx4, VSS, no complaints of n/v nor abd. pain. During assessment with help of ASL translators pt. reported having active hallucinations, auditory. Denying any visual hallucinations at this time. States she's hearing voices, cannot explain exactly what they're saying but they aren't telling her to harm herself or anyone else. Administered PRN Haldol, seems to be tolerating well. Resting comfortably in bed. Monitoring closely. * Luisa Stover MD: MODIFY, PERFORM, MODIFY, MODIFY, VERIFY, MODIFY, SIGN Event Display: Progress Note Hospital Authored Date: Patient: RICK MAY Age: 51 years Sex: Female : 1970 Associated Diagnoses: None Author: Luisa Stover MD Visit Information Chief Complaint/Reason for Consultation: Hallucinations History of Present Illness Pt is a 51-year-old female, history of schizophrenia and congenital deafness, who presented to the ED with ongoing abd pain, insomnia and hallucination and found to have significant choledocholithiasis. Pt interviewed with the assistance of virtual hourly sign language interpreter. Today pt reports her worsening auditory hallucinations have improved to the point that she no longer wants a voluntary psychiatric admission. She reports I'm fine, I can go home, I am safe at home and I have my psychiatrist and therapist I can call if I need them . She does endorse that she is still hearing voices and ghosts that are bothersome for her but that they have improved. She believesthis may be due to restarting her medications while here in the hospital. She is requesting a VNA at home to assist her in taking her medications. She denies depression, endorses anxiety from voices, reports several nights of poor sleep, endorsessome paranoia, denies confusion or manic symptoms. She firmly denies suicidal ideation, planning orintent, denies homicidal ideation, planning or intent, and appears organized enough to care for herself in the community. She does not appear to be an acute threat to herself or others at this time. Past Psychiatric Hx reviewed: Dx of schizophrenia Therapist: Cristopher OcampoTeresa Psychiatrist: Rod Ohara Psychiatric Admissions: 2019, prior history of tx in [place] ([facility] in 2014), and [facility] in August 2008 and in February, March, and April of 2013. Admissions appear to be for hallucinations. Currently on Risperidone for a few years, previous trials of Geodon, Invega, Invega Sustenna, Paxil, Klonopin Review of Systems 10 point review of systems negative except Pertinent positives as above noted. Objective Mental Status Exam: Appearance: well-groomed. Attitude: cooperative. Motor activity: calm. Mood: anxious. Affect: appropriate. Speech: n/a Perception: reports ongoing AH which have improved over the last few days Orientation: intact. Memory: intact. Judgment: intact. Insight: intact. Thought process: goal-directed. Reliability: fair Suicidality/self-destructive behavior: none. Homicidality/violence: none. Assessment/Plan Results Review Pertinent Physical Data Clinical Measurements and Vital Signs : VITALS 08/24/2022 16:01 EDT Early Warning Score 3.00 08/24/2022 16:01 EDT Height 158 cm Temperature 98.3 DegF Temperature Route Oral Pulse Rate 78 bpm Respiratory Rate 18 br/min Systolic Blood Pressure 110 mm Hg Diastolic Blood Pressure 71 mm Hg Blood pressure sites Arm, right Mean Arterial Pressure 84 mm Hg Pulse Pressure 39 mm Hg Oxygen Saturation 97 % Mode of Delivery (Oxygen) Room air . Impression and Plan Pt is a 51-year-old female, history of schizophrenia and congenital deafness, who presented to the ED with ongoing abd pain, insomnia and hallucination and found to have significant choledocholithiasis. Pt reports worsening AH over the course of the last few weeks and although does not endorse any recent stressors, there does appear to be recent reports of medication non-adherence as well as poor sleep, increased pain. Pt does not currently report any self harm, SI/HI but does endorse not feeling safe returning home with current level of voices. As per patient and records, she does appear to have baseline hx of AH however with medication non-adherence they have been noted to become worse. Today, pt reports she no longer believes she needs voluntary psychiatric admission. This is the second time in the past month she has presented advocating for psychiatric admission and later changed her mind. She does not appear to be an acute danger to herself or to others and can care for herselfin the community, thus she is not a candidate for involuntary psychiatric admission. She appears able to be discharged to home once medically cleared. She can be continued on her home medications at discharge. Dx: Schizophrenia Recommendations: - Pt does not appear to be an acute risk to herself or others and dispo is as per primary team -Continue Risperidone 1.5mg and 4mg qhs -Hold Sertraline and Valium while in the hospital -Can offer haldol 5mg TID prn for agitation, hallucinations -Can offer Trazodone 50mg qhs for insomnia Note * Roro Conner RN: PERFORM Event Display: Discharge/Transfer Note Hospital Authored Date: [id number] Nursing Discharge Note Entered On: 08/25/2022 16:58 EDT Performed On: 08/25/2022 16:57 EDT by Roro Conner RN Nursing Discharge Note 2 Discharge Time : 08/25/2022 16:30 EDT Discharge Level of Care at Discharge : Home/Longterm/Foster Care Patient Left Unit Via : Ambulatory Patient Accompanied Off Unit with : Responsible adult DC Instructions Provided & Signed by Pt : Yes Patient Understands D/C Instructions : Yes Patient Instructions Discharge Signed : Yes Did Pt have Specialty Bed or Wound Vac : No Roro Conner RN - 08/25/2022 16:57 EDT * Thomas Castellano MD: PERFORM Event Display: Discharge/Transfer Note Hospital Authored Date: [id number] Patient: ??RICK, MAY ? Age:??51 Years?Sex:??Female?:??1970?? Patient Information Discharge Location: [facility]4 Primary Care Physician: Not on Staff, PCP Admit Date/Time: 08/19/22 15:40 Discharge Disposition Discharge Disposition: Home: No Services Discharge Diagnosis Choledocholithiasis (K80.50):?? Symptomatic cholelithiasis S/p Interval cholecystectomy GERD Auditory hallucination _ Discharge Medications Acetaminophen (Tylenol 325 mg oral tablet)?650?Milligram?By Mouth?Every 6 hours?as needed?for 5?Days?Pain , Mild Diazepam (diazepam 2 mg oral tablet)?2?Milligram?1?tablet?By Mouth?Daily?as needed?as needed for anxiety Lorazepam (LORazepam 0.5 mg oral tablet)?1?tab(s)?0.5?Milligram?By Mouth?2 times a day?as needed?Anxiety Omeprazole (omeprazole 20 mg oral delayed release tablet)?1?tab(s)?20?Milligram?By Mouth?Daily?as needed?Dyspepsia Polyethylene Glycol 3350 (MiraLax oral powder for reconstitution)?17?gram?By Mouth?Daily?for 5?Days?dissolve in water before taking Risperidone (risperiDONE 4 mg oral tablet)?1?tab(s)?4?Milligram?By Mouth?Daily atbedtime Risperidone (risperiDONE 1 mg oral tablet)?See Instructions?1 tabletin am and 1/2 tab at noon Sertraline (sertraline 50 mg oral tablet)?1?tab(s)?50?Milligram?By Mouth?Daily?for 30?Days?? Medications Started Bowel meds??and??Tylenol Medications Discontinued None Doses Changed None PCP Follow-Up/Heads-Up Follow-up in about 1 to 2 weeks Objective Assessment and Plan 51-year-old female, history of schizophrenia and congenital deafness, extremity with pain and discomfort as well as hallucination. Patient was later found to have some significant choledocholithiasis.? Choledocholithiasis (K80.50):?? Symptomatic cholelithiasis S/p Interval cholecystectomy 08/23 POD 1 Patient was found to have choledocholithiasis on examination and ultrasound??with obstructive stonemeasuring, CBD 1 cm. No signs of infections??as of now(have chronic leukocytosis at baseline)??No fever or??chills. LFTsare trending down s/p??ERCP with sphincterotomy and stones extraction by Dr Latham 08/21 Significant cholelithiasis.?? S/p Interval cholecystectomy 08/23 POD 2 Patient is doing well postoperatively. No fever/chills. She is tolerating a diet?No tub bathing or swimming.?? No heavy lifting.?? She should follow-up with us in 2-3 weeks.? GERD (gastroesophageal reflux disease) (K21.9):??continue on PPI ?? Auditory Hallucinosis (F28): Worsening auditory hallucination over the last few weeks due to??medication nonadherence. Psychiatry was consulted.?? Patient??was resumed??on home dose risperidone??1.5 mg in the a.m. and 4 mg at bedtime She was placed on Haldol??as needed for agitation??and trazodone for insomnia. Patient has not required any trazodone since hospitalization.?? Her hallucination has improved??with medication compliance. Stressed the importance of resuming/taking meds in the community??to prevent??worsening symptoms then requiring hospitalization.?? Psychiatry reevaluated her on 08/24/2022 and deemed safe for discharge. ??Patient does not need any psychiatric admission at this time. Can resume sertraline and Valium as an outpatient but psychiatric. No new prescription??on discharge.. ?? Discharge home today. ? Disclaimer: This dictation was accomplished with use of [employer] voice recognition software, prone tomedical word misidentifications and grammatical errors. The physician does strive to identify and correct these, but some could still be present. Please do not hesitate to contact physician for clarifications.? Vital Signs?? Temperature: 98.2 DegF (08/25/22 07:37:00) Temperature Route: Oral (08/25/22 07:37:00) Pulse Rate: 71 bpm (08/25/22 07:37:00) Respiratory Rate: 18 br/min (08/25/22 07:37:00) Systolic Blood Pressure: 109 mm Hg (08/25/22 07:37:00) Diastolic Blood Pressure: 64 mm Hg (08/25/22 07:37:00) Blood pressure sites: Arm, right (08/25/22 07:37:00) Mean Arterial Pressure: 79 mm Hg (08/25/22 07:37:00) Pulse Pressure: 45 mm Hg (08/25/22 07:37:00) Oxygen Saturation: 98 % (08/25/22 07:37:00) Mode of Delivery (Oxygen): Room air (08/25/22 07:37:00) Early Warning Score: 0 (08/25/22 08:52:29) ? . Physical Exam General: lying on the bed, saturating well on room air.?? Cardiovascular: S1, S2. Regular rhythm. No MRG. Respiratory: Reduced breath sound on bases, No RRR.?? Gastrointestinal: Soft, Nontender, Non distended, Normal bowel sounds.?? Bandage + Neurological: Cranial nerves intact. Motor and sensory intact. Surgical Procedures ERCP with Removal of Calculus 08/21/2022 13:55 Cholecystectomy with Intra-Op Cholangiog 08/23/2022 16:44 Cholecystectomy Open 08/23/2022 16:44 Consultants Surgery Psychiatric Pending Results Add On Lab Order ordered on 08/22/2022 Add On Lab Order ordered on 08/25/2022 Basic Metabolic Panel ordered on 08/26/2022 CBC ordered on 08/26/2022 Hepatic Function Panel ordered on 08/24/2022 Magnesium Level ordered on 08/26/2022 Phosphorus Level ordered on 08/26/2022 Patient Education Titles Discharge Instructions for Laparoscopic Gallbladder Removal Surgery (Cholecystectomy)?? Having Laparoscopic Cholecystectomy?? Follow-Up Appointments Added Follow Up ?Time Frame ?Comments Casandra AVILEZ, Jaylene Gonzalez?2 to 3 weeks?Please call the office to schedule a follow-up appointment. [facility] [phone] Patient Instructions Discharge Instructions? If you develop fever, chills, increased pain, nausea, vomiting, bleeding, or increased redness or pus around the wound please call the surgery office. A narcotic was prescribed to help reduce your pain. Take only as needed for your pain; you may choose to fill the prescription in a lesser amount. When taking opioids, there is an increase chance of abuse and/or overdose. Other side effects/complications include nausea, vomiting, difficulty breathing, sedation and constipation. A stool softener may also be taken to help prevent constipation. Please take medications as prescribed and do not drive while on narcotic medications. ?? You may continue to take Tylenol 650mg every 4-6 hours for pain control if needed ?? Three of your incisions are closed with absorbable sutures and glue.?? The fourth incision is closed with absorbable sutures and dressing.?? The dressing can be removed 48 hours after surgery and then replaced with a Bandaid if needed. ?? If you have any questions, please call the surgery office. ?? Please call your Primary Care Provider within 1 week for post hospital follow up and review of yourmedications. ?? Activity Instructions ?? -No heavy lifting >10 lbs -Increase activity as tolerated -Encourage coughing and deep breathing, use of incentive spirometer -No tub baths until incision(s) has/have healed -May shower 48 hours after surgery -No driving until off narcotics and cleared by Surgery?? Post Discharge Care Diet: Regular Diet Activity: ?? OOB ad Brianna Code Status: ?? Full Resuscitation Discharge ?08/25/22 14:47:00 EDT Discharge Prescriptions ?ePrescribed, ??08/25/22 14:47:00 EDT Home Health Face to Face ^HomeHealthFTF Results Discharge Labs BLOOD BANK Blood Type A Positive ()?? 08/20/2022 13:57 Antibody Screen Negative ()?? 08/20/2022 13:57 ?? BLOOD COUNT & DIFF WBC 12.2 k/mm3 (High)?? 08/25/2022 00:52 RBC 3.92 m/mm3 (Low)?? 08/25/2022 00:52 Hgb 11.2 Gm/dL (Low)?? 08/25/2022 00:52 Hct 35.3 % (Low)?? 08/25/2022 00:52 MCV 90.1 femtoliters ()?? 08/25/2022 00:52 MCH 28.6 pg ()?? 08/25/2022 00:52 MCHC 31.7 g/dL (Low)?? 08/25/2022 00:52 Platelet Count 188 k/mm3 ()?? 08/25/2022 00:52 RDW-SD 55.3 femtoliters (High)?? 08/25/2022 00:52 MPV 10.0 femtoliters ()?? 08/25/2022 00:52 Nucleated RBC (Automated) 0.0 #/100 WBC'S ()?? 08/25/2022 00:52 Abs. NRBC 0.0 k/mm3 ()?? 08/25/2022 00:52 Abs. Neut 4.3 k/mm3 ()?? 08/21/2022 06:26 Abs. Lymph 9.8 k/mm3 (High)?? 08/21/2022 06:26 Abs. Harmon 0.8 k/mm3 ()?? 08/21/2022 06:26 Abs. Eo 0.1 k/mm3 ()?? 08/21/2022 06:26 Abs. Baso 0.0 k/mm3 ()?? 08/21/2022 06:26 Neut % 28.4 % (Low)?? 08/21/2022 06:26 Lymph % 65.5 % (High)?? 08/21/2022 06:26 Harmon % 5.2 % ()?? 08/21/2022 06:26 Eos % 0.9 % ()?? 08/21/2022 06:26 Baso % 0.0 % ()?? 08/21/2022 06:26 WBC Morphology FEW ()?? 08/21/2022 06:26 ? CHEM GENERAL Sodium 139 mmol/L ()?? 08/25/2022 00:52 Potassium 3.6 mmol/L ()?? 08/25/2022 00:52 Chloride 105 mmol/L ()?? 08/25/2022 00:52 Bicarbonate Level 25 mmol/L ()?? 08/25/2022 00:52 Anion Gap 9 ()?? 08/25/2022 00:52 Glucose Level 126 mg/dL (High)?? 08/25/2022 00:52 BUN 7 mg/dL ()?? 08/25/2022 00:52 Creatinine-Blood 0.7 mg/dL ()?? 08/25/2022 00:52 Estimated GFR Creatinine 101 ML/MIN/1.73 M2 ()?? 08/25/2022 00:52 Calcium 8.0 mg/dL (Low)?? 08/25/2022 00:52 Phosphorus 2.2 mg/dL (Low)?? 08/25/2022 00:52 Magnesium 1.8 mg/dL ()?? 08/25/2022 00:52 Protein, Total 5.4 Gm/dL (Low)?? 08/25/2022 00:52 Albumin 3.1 Gm/dL (Low)?? 08/25/2022 00:52 Alkaline Phosphatase 129 units/L (High)?? 08/25/2022 00:52 AST (SGOT) 72 units/L (High)?? 08/25/2022 00:52 ALT (SGPT) 128 units/L (High)?? 08/25/2022 00:52 Bilirubin, Total 1.0 mg/dL ()?? 08/25/2022 00:52 Bilirubin, Direct 0.7 mg/dL (High)?? 08/25/2022 00:52 Bilirubin, Indirect 0.3 mg/dL ()?? 08/25/2022 00:52 ?? URINE OTHER Est Creatinine Clearance 77.61 mL/min ()?? 08/25/2022 02:00 ? 45 minutes spent on discharge * Roro Conner RN: PERFORM Event Display: Patient Education/Instruction Authored Date: [id number] Inpatient Adult Discharge Instructions [address] [address] Name: MAY RICK : 1970 Visit: 08/19/2022 15:40:00 Current Date: 08/25/2022 14:49 Account: [id number] Inpatient Adult Discharge Instructions We would like to thank you for allowing us to assist you with your healthcare needs. The following includes patient education materials and information regarding your injury/illness. Our entire staffstrives to provide an excellent experience for our patients and their families. PLEASE ENSURE YOU FOLLOW-UP PER THE INSTRUCTIONS BELOW! ?? YOUR OPINION IS IMPORTANT TO US! Please complete the survey you may receive by mail or email. Your feedback will be used to make improvements to the healthcare experiences of our patients and their families. Surveys are administered by [employer] ?? If further treatment with your primary care physician or another doctor is recommended, it is important for you to keep the appointment. Call your primary care physician or return to the Emergency Department immediately if your condition worsens, fails to improve, or new symptoms develop. If you need to find a doctor, you can call [facility] for a referral at [phone] or toll free at [phone] or log in to [email or web address].. ?? You can view and manage your care through the patient portal or by using a health care genaro of your choosing. [employer] is a website that allows you to securely view your medical information including your hospital discharge summary, office visit summaries, medications and follow-up visits. You can also request appointments, renew medications, and request access to your medical information using a health care genaro of your choosing, or just ask a question. You can enroll at [email or web address] or register during your next office visit. You have been discharged from [facility], Patient Care Unit: W4. If you have any questions regarding these instructions after you leave, please call us and we will be happy to assist you. [facility] Your Care Team Attending Physician Isabelle Benavides MD, Thomas Consulting Providers Mey Méndez MD Discharging Providers Isabelle Benavides MD, Thomas Reason for Admission CHOLEDOCHOLITHIASIS Your Diagnosis Choledocholithiasis Hallucinosis GERD (gastroesophageal reflux disease) Tests Performed Below is a partial list of the tests performed during your hospitalization. You may have had other tests and procedures not included in this list. Please discuss all test results with your provider. Alk Phos ALT AST Bilirubin Total + Direct BUN CBC w/ Differential Creatinine Electrolytes Glucose Level HEPATIC FUNCTION PANEL Type and Screen XR ERCP Both Ducts Primary Care Provider Not on Staff, PCP Advance Directive Health Care Proxy on File No Patient refuses to discuss Discharge Vitals Temperature: 98.2 DegF Height: 158 cm Pulse Rate: 71 bpm Weight: 85 kg Respiratory Rate: 18 br/min Body Mass Index:??34.05 kg/m2??Critical Systolic Blood Pressure: 109 mm Hg Body surface area: 1.93 Diastolic Blood Pressure: 64 mm Hg ?? Oxygen Saturation: 98 % ?? Studies Pending All tests and labs ordered during this hospital stay have been completed unless listed below. Please discuss all pending results with your provider listed above in these instructions. ?? Add On Lab Order Basic Metabolic Panel CBC Hepatic Function Panel (LFT's) Magnesium Level Phosphorus Level What to do next Instructions From Your Doctor Discharge Instructions? If you develop fever, chills, increased pain, nausea, vomiting, bleeding, or increased redness or pus around the wound please call the surgery office. A narcotic was prescribed to help reduce your pain. Take only as needed for your pain; you may choose to fill the prescription in a lesser amount. When taking opioids, there is an increase chance of abuse and/or overdose. Other side effects/complications include nausea, vomiting, difficulty breathing, sedation and constipation. A stool softener may also be taken to help prevent constipation. Please take medications as prescribed and do not drive while on narcotic medications. ?? You may continue to take Tylenol 650mg every 4-6 hours for pain control if needed ?? Three of your incisions are closed with absorbable sutures and glue.?? The fourth incision is closed with absorbable sutures and dressing.?? The dressing can be removed 48 hours after surgery and then replaced with a Bandaid if needed. ?? If you have any questions, please call the surgery office. ?? Please call your Primary Care Provider within 1 week for post hospital follow up and review of yourmedications. ?? Activity Instructions ?? -No heavy lifting >10 lbs -Increase activity as tolerated -Encourage coughing and deep breathing, use of incentive spirometer -No tub baths until incision(s) has/have healed -May shower 48 hours after surgery -No driving until off narcotics and cleared by Surgery?? Discharge Orders You Need to Schedule the Following Appointments Follow Up with??Casandra AVILEZ, Jaylene Gonzalez When:??Within 2 to 3 weeks Why: Please call the office to schedule a follow-up appointment. Where: [address] [place] [address] Drive [address] [facility] [place] [address]- Follow Up with??[facility] [phone] Discharge Medications RICKMay :1970 Visit Date:08/19/2022 Medications: Please continue your medications until treatment is completed or stopped by your provider. Medications not listed below should be discontinued. Discuss any questions related to medications with your provider. What How Much When Instructions Next Dose Changed Sertraline (sertraline 50 mg oral tablet) 1 tab(s) Oral Daily Duration: 30 Days Pickup at [facility] 3 08/26 9am Unchanged Diazepam (diazepam 2 mg oral tablet) 1 tab(s) Oral Daily as needed for as needed for anxiety as needed ?? Unchanged Lorazepam (LORazepam 0.5 mg oral tablet) 1 tab(s) Oral Twice a day as needed for Anxiety as needed ?? Unchanged Omeprazole (omeprazole 20 mg oral delayed release tablet) 1 tab(s) Oral Daily as needed for Dyspepsia 08/26 at 9am ?? Unchanged Risperidone (risperiDONE 1 mg oral tablet) See instructions 1 tabletin am and 1/ 2 tab at noon ?? 08/26 at 9am and noon ?? Unchanged Risperidone (risperiDONE 4 mg oral tablet) 1 tab(s) Oral Daily at Bedtime 08/25 at 9pm ?? Pharmacy Information [facility] 3: [address], [place] [id number] [phone] Test Results Below is a partial list of the most recent Laboratory test results done prior to this discharge. You may have had other tests and procedures not included in this list. Please discuss all test resultswith your provider. Est Creatinine Clearance - 77.61 mL/min (08/25/2022) Alk Phos (08/21/2022) ???Alkaline Phosphatase - 78 units/L ALT (08/21/2022) ???ALT (SGPT) - 12 units/L AST (08/21/2022) ???AST (SGOT) - 12 units/L Bilirubin Total + Direct (08/21/2022) ? ?Bilirubin, Total - 0.3 mg/dL? ?Bilirubin, Direct - <0.2 mg/dL? ?Bilirubin, Indirect - Direct bilirubin is less than the measureable limit. Therefore, indirect BUN (08/21/2022) ???BUN - 6 mg/dL CBC w/ Differential (08/21/2022) ???WBC - 15.0 k/mm3???RBC - 4.12 m/mm3???Hgb - 11.6 Gm/dL???Hct - 37.2 %???MCV - 90.3 femtoliters???MCH - 28.2 pg???MCHC - 31.2 g/dL???Platelet Count - 197 k/mm3???RDW-SD - 53.5 femtoliters???MPV - 10.2 femtoliters???Nucleated RBC (Automated) - 0.0 #/100 WBC'S???Abs. NRBC - 0.0 k/mm3???Abs. Neut - 4.3 k/mm3???Abs. Lymph - 9.8 k/mm3???Abs. Harmon - 0.8 k/mm3???Abs. Eo - 0.1 k/mm3???Abs. Baso - 0.0 k/mm3???Neut % - 28.4 %???Lymph % - 65.5 %???Harmon % - 5.2 %???Eos % - 0.9 %???Baso % - 0.0 %???WBC Morphology - FEW Creatinine (08/21/2022) ???Creatinine-Blood - 0.9 mg/dL???Estimated GFR Creatinine - 81 ML/MIN/1.73 M2 Electrolytes (08/21/2022) ???Sodium - 140 mmol/L???Potassium - 4.0 mmol/L???Chloride - 105 mmol/L???Bicarbonate Level - 27 mmol/L???Anion Gap - 8 Glucose Level (08/21/2022) ???Glucose Level - 89 mg/dL HEPATIC FUNCTION PANEL (08/25/2022) ???Protein, Total - 5.4 Gm/dL???Albumin - 3.1 Gm/dL???Alkaline Phosphatase - 129 units/L???AST (SGOT) - 72 units/L???ALT (SGPT) - 128 units/L???Bilirubin, Total - 1.0 mg/dL???Bilirubin, Direct - 0.7 mg/dL???Bilirubin, Indirect - 0.3 mg/dL Type and Screen (08/20/2022) ???Blood Type - A Positive???Antibody Screen - Negative Allergies (NKA means No Known Allergies) NKA Problems Active Problems??(3) Chronic psychosis?? Cigarette nicotine dependence?? Obese class I?? Education Materials Below is the list of Educational Leaflet Providered with your Discharge Instructions. Valuables and Belongings I fully understand and agree that [facility] accepts no responsibility for all my personal property including clothing, toilet articles, radios, jewelry, dentures, hearing aids, rings, money, or any other property that is in my possession or is brought to me after admission. I understand certain valuables may be placed in a hospital safe for a short period of time. I understand that the hospital is not liable for loss or damage due to accident, fire, or other natural occurrence while said property is in the safe. I accept full responsibility for any personal property that I keep with me, and will not hold the hospital responsible in case of loss or disappearance. I acknowledge that i have been encouraged to send valuables and belongings home. ?? Review of Valuable and Belonging List: With patient, With witness Possessions released to: [facility] [facility] to PACU Date for Pt to Sign Valuables/Belongings: 08/23/22 15:43:00 ?? Valuables & Belongings ?? Clothes Electronic devices Jewelry Monetary Items Personal devices Miscellaneous Medications (Valuables) Valuables at Bedside Shirt, Slippers, Other: Shorts ?? Rings Credit cards, Purse, Wallet ? Valuables Sent Home ? Valuables Sent to Security ? Other Discharge Information ? Pulmonary Rehab Status?? Pulmonary Rehab Discharge Status?? Respiratory Rate: 18 br/min ? Common Emergency Awareness Tips IS IT A STROKE? Act FAST and Check for these signs: FACE Does the face look uneven? ARM Does one arm drift down? SPEECH Does their speech sound strange? TIME Call at any sign of stroke ?? Heart Attack Signs Chest discomfort: Most heart attacks involve discomfort in the center of the chest and lasts more than a few minutes, or goes away and comes back. It can feel like uncomfortable pressure, squeezing, fullness or pain. Discomfort in upper body: Symptoms can include pain or discomfort in one or both arms, back, neck, jaw or stomach. Shortness of breath: With or without discomfort. Other signs: Breaking out in a cold sweat, nausea, or lightheaded. Remember, MINUTES DO MATTER. If you experience any of these heart attack warning signs, call to get immediate medical attention! ?? Smoking can increase your chances of developing chronic health problems and can cause harmful effects to other family members in your house. If you smoke, you are strongly encouraged to quit. Please call [facility] at [phone] or [phone]) or log in to [email or web address] for referrals to smoking cessation programs. ?? 970 Suicide & Crisis Lifeline is available 02/09 if you or someone you know needs to find a reason to keep living. By calling 995 you'll be connected to a skilled, trained counselor at a crisis center in your area. INPATIENT DISCHARGE INSTRUCTIONS SIGNATURE PAGE May Location:[facility] Registration Date and Time:08/19/2022 15:40 EDT Primary Care Physician: Not on Staff, PCP Attending Physician: Thomas Castellano MD, I RICK, MAY, have received the above patient education materials/instructions and have verbalized understanding. If ambulance or transport services are being used I further acknowledge being given a choice of service. ?? If you need to contact me, please call me at this number: . 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 [address] Discharge Instructions for Laparoscopic Gallbladder Removal Surgery (Cholecystectomy) You had surgery to remove your gallbladder. This is called a cholecystectomy. You had the surgery done with laparoscopy. This means it was done with several small incisions. People who have the surgery done this way often recover more quickly. They may have less pain than with open gallbladder surgery.?? You can live a full and healthy life without your gallbladder. This includes eating the foods and doing the things you enjoyed before. Below are guidelines for home care after surgery. Home care To care for yourself at home:? Get plenty of rest. Don???t worry if you feel tired for the first couple of weeks after your surgery. Fatigue is common. Nap when you feel tired.? Wash the skin around your cut (incision) daily with mild soap and water. It's??OK to shower the day after your surgery unless your healthcare provider says not to. ??? Eat your normal diet. But don't eat rich, greasy, or spicy food for a few days. Many surgeons advise a low-fat diet for the first month after surgery. Don???t eat fried food during this time. ??? You can walk around the house, do office work, climb stairs, or ride in a car if you feel able to do so. ??? Ask someone to drive you to your appointments for the next 3 days[address]???t drive until you have stopped taking pain medicine. Make sure you can step on the brake pedal with no delay. ??? Eat more fiber and use a stool softener if you are constipated. Pain medicine can cause constipation. Talk with your provider if you need more help. ??? Don???t sit in a bathtub, swimming pool, or hot tub until your healthcare provider says it???s safe. Wait until the incision is closed. Wait until any surgical tubes (drains) are removed. ?? Follow-up care Make a follow-up appointment with your surgeon as advised. Call your healthcare provider if these symptoms don???t go away within 1 week after your surgery: ??? Extreme tiredness (fatigue) ??? Pain around the incision ??? Diarrhea or constipation ??? Loss of appetite ?? When to call your healthcare provider Call your healthcare provider right away if you have any of these: ??? Yellowing of your eyes or skin (jaundice) ??? Chills ??? Fever of 100.4??F (38.0??C) or higher, or as directed by your provider? Redness or swelling of the incision ??? Fluid leaking or a bad smell from the incision ??? Incision pain that gets worse ??? Dark or rust-colored urine ??? Stool that is light in color instead of brown ??? Increasing belly pain ??? Rectal bleeding ??? Trouble breathing or shortness of breath ??? Leg swelling ?? Last Reviewed Date: 2021 ?? 9562-5333 [employer]. All rights reserved. This information is not intended as a substitute for professional medical care. Always follow your healthcare professional's instructions. ?? * Isabelle Benavides MD, Thomas: PERFORM Event Display: Patient Education Leaflets Authored Date: [id number] Having Laparoscopic Cholecystectomy ?? [address]0004 Having Laparoscopic Cholecystectomy You???ve had painful attacks caused by gallstones. Because of this, you are having surgery to remove your gallbladder. This is called??cholecystectomy.??A method called laparoscopy will be used. Thisallows surgery to be done through a few small cuts (incisions). Possible incision sites. Before your surgery ??? Tell your provider what medicines you take. This includes prescription medicines, [id number] medicines, illegal drugs, herbs, vitamins, and other supplements. Be sure tomention if you take prescription blood thinners. This includes warfarin, clopidogrel, ibuprofen, and aspirin. You may be asked to stop taking certain medicines several days before surgery. ??? If youdrink alcohol, tell your provider how much you drink.??This is very important if you are a heavy drinker or have had alcohol withdrawal symptoms in the past.??Alcohol withdrawal can be dangerous. Butthe symptoms can be safely managed if your healthcare provider knows your alcohol history. ??? Haveany tests your provider asks for, such as blood and urine tests and an electrocardiogram (ECG). ???Don???t eat or drink after midnight the night before your surgery. This includes water, coffee, andmints. ??? Wash with a special scrub, if you are told to do so. ?? The day of surgery ??? Your provider may have you take your normal medicine with a sip of water. Check with your provider.?? When you arrive, you will prepare for surgery: ??? An IV (intravenous) line will be put into a veinin your arm or hand. This IV line is the way you are given fluids and medicine. ??? An anesthesiologist will talk with you about anesthesia. This is medicine used to prevent pain. You will receive general anesthesia. This puts you into a deep sleep-like state through the procedure. ?? During laparoscopic surgery For this surgery, a thin tube with a tiny camera is used. This is called a??laparoscope. The scope sends images from inside your body to a video screen. This lets the surgeon view and work on your gallbladder: ??? Small incisions are made in your belly (abdomen). The scope is put through 1 of the incisions. Surgical tools are put through other incisions. ??? Small clips are used to close off the connectionbetween the gallbladder and the bile duct. The gallbladder is then detached from the liver. ??? Thegallbladder is removed through 1 of the incisions. Bile still flows from the liver to the small intestine. ??? When the surgery is done, all tools are removed. Incisions are closed with stitches (sutures), surgical glue, or aixa.?? Sometimes, a laparoscopic surgery may need to be changed to an open surgery. This method uses 1 large incision. This change may happen because of scar tissue, unusual anatomy, or for some other unexpected reason. ?? After surgery You will be sent to the post-anesthesia care unit (PACU) to be closely monitored. You will likely go home the same day. In some cases, an overnight stay is needed. When you are released to go home, have a family member or friend ready to drive you. ?? Risks of this surgery All surgeries have risks. The risks of gallbladder surgery include: ??? Bleeding ??? Infection ??? Injury to the common bile duct or nearby organs ??? Blood clots in the legs ??? Bile leaks ??? Hernia at the incision site ??? Pneumonia ?? Last Reviewed Date: 2021 ?? [employer]. All rights reserved. This information is not intended as a substitute for professional medical care. Always follow your healthcare professional's instructions. ?? Patient Care team information Care Team Personnel Name: Alana Palma RN Position: [facility] RN Member Role: Primary Care Nurse Name: Not on Staff, PCP Position: [facility] Physician (General Medicine) Member Role: PCP Name: Cathy Ramírez RN Position: S RN Member Role: Primary Care Nurse Name: Kathleen Muniz RN Position: [facility] RN Member Role: Primary Care Nurse Care Team Related Persons Name: SHA CORONADO Name: GAUTAM MONTIEL
--- OUTSIDE RECORDS SUMMARY | 2023-10-28 11:27 | XMS_ITS | Continuity of Care Document ---
Author Organization [facility] Address [address] [place] [address] [address] [place] [address]- Care Team Providers Care Recreation Teacher Name Role Phone Sneha Li MD Primary Care Physician [place] [facility] [place] - 06/12/[address] [place] [address]- Attending Physician: Marylu Ashton MD Allergies, Adverse Reactions, Alerts No Known [...] 05/29/23 13:46:00 EDT, Route to Pharmacy Electronically, [facility], Partial fill upon patient [...] dependence Confirmed Active Chronic psychosis Confirmed Active Vital Signs Most recent to oldest [Reference Range]: 1 Height 159 cm (06/05/23 1:36 PM) Pulse Rate [55-90 bpm] 103 bpm *H* (06/05/23 1:36 PM) Blood Pressure [90-138/55-84 mm Hg] 115/ 90mm Hg (06/05/23 1:36 PM) Temperature [96.8-100.4 DegF] 96.2 DegF *L* (06/05/23 1:36 PM) Blood pressure sites Arm, left (06/05/23 1:36 PM) Temperature Route Temporal (06/05/23 1:36 PM) Social History Social History Type Response Smoking Status Former smoker, quit more than 30 days ago; Other: Pt quit 3 months ago; entered on: 04/28/23 Sex Patient Care team information Care Team Personnel Name: Sneha Li MD Position: [facility] Outreach Member Role: PCP Address: Address: [address] [place] [address] [address] [place] [address]- Name: Rebeka Jimenez RN Position: S RN Member Role: Primary Care Nurse Name: Jamaal Cooney RN Position: [facility] RN Member Role: Primary Care Nurse Name: Cathleen Hudson RN Position: S RN Member Role: Primary Care Nurse Name: Kathleen Muniz RN Position: [facility] RN Member Role: Primary Care Nurse Care Team Related Persons Name: ROLA VEGA Name: SAH CORONADO Name: GAUTAM MONTIEL Address: home [address] [place] [address]
--- OUTSIDE RECORDS SUMMARY | 2023-10-28 11:27 | XMS_ITS | Continuity of Care Document ---
Author Organization [facility] ter Address [address] [place] [id number] Care Team Providers Care Fur Trimmer Name Role Phone [place] Sneha AVILEZ Primary Care Physician Encounter [facility] Date(s): 04/29/23 - 05/02/[address] [id number] Encounter Diagnosis Appendicitis(Final) - 05/02/23 Discharge Disposition: A-D/C Home Attending Physician: Hitesh Gomez MD Admitting Physician: Hitesh Gomez MD Referring Physician: Not on Staff, Referring [...] opioid drug. Start Date: 04/29/23 Status: Ordered Augmentin 875 mg-125 mg oral tablet 1 tablet, By Mouth, Every 12 hours, for 3 days, # 6 tablet, 0 Refills, Acute 05/05/23 10:08:00 EDT,05/02/23 10:08:00 EDT, Tablet, [facility], Partial fill upon patient request if the prescription is for a schedule II opioid drug., 157,... Start Date: 05/02/23 Stop Date: 05/05/23 Status: Ordered Colace sodium 100 mg oral capsule 100 mg, 1, capsule, By Mouth, 2 times a day, PRN, # 20 capsule, Refills 0, Tot. Refills 0, Maintenance, for constipation, 05/02/23 10:09:00 EDT, Route to Pharmacy Electronically, [facility], Partial fill upon patient [...] opioid drug. Start Date: 08/10/22 Status: Ordered oxyCODONE 5 mg oral tablet 5 mg, Tablet, By Mouth, Every 4 hours, PRN for Pain , Severe, Routine, 04/29/23 3:33:00 EDT Start Date: 04/29/23 Stop Date: 05/03/23 Status: Discontinued oxyCODONE 5 mg oral tablet 5 mg, 1, tablet, By Mouth, Every 6 hours, PRN, for 3 days, # 12 tablet, Refills 0, Tot. Refills 0, Acute 05/05/23 10:09:00 EDT, as needed for pain, 05/02/23 10:09:00 EDT, Route to Pharmacy Electronically, [facility], Partial fill upon pa... Start Date: 05/02/23 Stop Date: 05/05/23 Status: Ordered risperiDONE 1 mg oral tablet [...] Status: Ordered Tylenol 325 mg oral tablet 975 mg, Tablet, By Mouth, 05/02/23 2:00:00 EDT Start Date: 05/02/23 Stop Date: 05/02/23 Status: Completed Tylenol 325 mg oral tablet 325 mg, 1, tablet, By Mouth, Every 6 hours, PRN, # 30 tablet, Refills 0, Tot. Refills 0, Acute 05/10/23 10:10:00 EDT, for pain, 05/02/23 10:09:00 EDT, Route to Pharmacy Electronically, [facility], Partial fill upon patient request if the... Start Date: 05/02/23 Stop Date: 05/10/23 Status: Ordered Walker See Instructions, # 1 [...] Exam Date Time Procedure Performing Provider Status 04/30/23 11:36 AM IR End of Case Report Au th (Verified) IR End of Case Report * Exam Date Time Procedure Performing Provider Status 04/30/23 11:[address] Rad Guide Per Drain W/ Place Una Jerome; Auth (Verified) Notes: (CT Rad Guide Per Drain W/ Place) Reason For Exam: Drain placement into abscess cavity CT Rad Guide Per Drain W/ Place Patient: Study Date: 04/30/2023 Performing: Tanner Ramos MD Referring: : 1970 Age: 52 Gender: FEMALE PROCEDURE: CT guided drainage catheter placement. INDICATION: history of schizophrenia, COPD, GERD who presented as a transfer from [facility] for concerns of perforated appendicitis with an associated large abscess INSURANCE CHECKER(S): Tanner Ramos MD ANESTHESIA: lidocaine was administered for local anesthesia. TECHNIQUE: A limited CT scan of the was performed using automatic tube current modulation to optimize dose parameters. A suitable access site was identified, marked, prepped, and draped in standard fashion. Using intermittent CT fluoroscopy guidance, a 19-gauge introducer needle was advanced into the collection. A 0.035 inch guidewire was placed and the tract was dilated to? 12 Chadian. ?A?14 Fr catheter was placed into the collection. The catheter was maintained to suction and secured to the skin using 2 x 0- prolene suture. A sample was sent for requested studies. cultures COMPLICATIONS: The patient tolerated the procedure well and in stable condition. There were no immediate complications. FINDINGS: Comparison is made to the previous study of PLAN: Routine post procedure monitoring. IMPRESSION: Successful CT-guided placement of a 14 Chadian drainage catheter on the .right - For reasons which not clear to me there is mention that this procedure was declined yesterday as there was no safe window. This is not the case. There was a reasonable window today and yesterday. The abscess is somewhat caught irregular in shape. I could not advance the pigtail catheter deep and if there is inadequate resolution of this abscess with the current 14 Fr catheter she needs to return another day for repositioning of the catheter under fluoroscopic guidance. Agent Dose Route Time By Fentanyl 25 mcg IV 11:31:02 SUMAYA Signed By Tanner Ramos MD On 04/30/2023 12:08:19 Signed By Tanner Ramos MD On 04/30/2023 12:08:19 Tanner Ramos MD Equipment : Subarctic Limited CATHETER 14 FR LOCK RESOLVE [facility] [employer]MONTES 100 W/ TUBE Dictated By: Tanner Ramos MD Dictated Date/Time: 04/30/23 11:36 a Reviewed By: Tanner Ramos MD Signed By: Tanner Ramos MD Signed Date/Time: 04/30/23 11:36 am Transcribed By: [facility] Transcribed Date/Time: 04/30/23 11:36 am Vital Signs Most recent to oldest [Reference Range]: 1 2 3 Height 157 cm (04/29/23 12:50 PM) Weight 68 kg (04/29/23 12:50 PM) Oxygen Saturation [94-100 %] 98 % (05/02/23 10:00 AM) 94 % (05/02/23 2:00 AM) 97 % (05/01/23 10:00 PM) Pulse Rate [55-90 bpm] 80 bpm (05/02/23 10:00 AM) 81 bpm (05/02/23 6:00 AM) 78 bpm (05/02/23 2:00 AM) Body Mass Index [18.5-24.99 kg/m2] 27.59 kg/m2 *H* (04/29/23 12:50 PM) Blood Pressure [90-138/55-84 mm Hg] 102/62mm Hg (05/02/23 10:00 AM) 103/60mm Hg (05/02/23 6:00 AM) 96/56mm Hg (05/02/23 2:00 AM) Respiratory Rate [16-30 br/min] 18 br/min (05/02/23 6:40 AM) 17 br/min (05/02/23 3:04 AM) 18 br/min (05/02/23 2:04 AM) Temperature [96.8-100.4 DegF] 98.1 DegF (05/02/23 10:00 AM) 97.8 DegF (05/02/23 6:00 AM) 97.9 DegF (05/02/23 2:00 AM) Mode of Delivery (Oxygen) Room air (05/02/23 10:00 AM) Room air (05/02/23 6:00 AM) Room air (05/02/23 2:00 AM) Blood pressure sites Arm, left (05/02/23 10:00 AM) Arm, left (05/02/23 6:00 AM) Arm, left (05/02/23 2:00 AM) Temperature Route Oral (05/02/23 10:00 AM) Oral (05/02/23 6:00 AM) Oral (05/02/23 2:00 AM) Dry Weight 68 kg (04/29/23 12:50 PM) Social History Social History Type Response Smoking Status Former smoker, quit more than 30 days ago; Other: Pt quit 3 months ago; entered on: 04/28/23 Sex History and physical note * Event Display: History and Physical Hospital Authored Date: Admission evaluation note * Patricia AVILEZ, Hitesh: Casi Larry MD: PERFORM Event Display: Admission Note Authored Date: [id number] Patient: ??, MAY ? Age:??52 Years?Sex:??Female?:??1970?? Provider Clinical Summary Consulting Physician: Leidy ASCENCIO Clinical Question: Appendicitis with abscess Consult Attending:??Dr. Gomez History of Present Illness May??is a 52-year-old female with a history of schizophrenia, COPD, GERD??who presented as a transfer??from [facility]??for concerns of perforated appendicitis with an associated??large abscess.?? On presentation to [facility], a general surgery consultation was requested. ?? Patient was seen and evaluated bedside.?Video passenger car cleaning supervisor was used for??congenital??deafness.?? Patient was resting comfortably??in no acute distress.?? She states that she started developing abdominal pain about??1- /2??weeks ago.?? It was localized??in the periumbilical to right lower quadrant area.?? Her pain worsened and she had associated nausea vomiting??for about 24 to 48 hours??and her pain subsequently resolved.?? Since that time she has continued to have??persistent diarrhea.?? She states that she has a feeling of malaise??and some chills. ??She denies any fevers, chest pain, shortness of breath.?? She has been able to tolerate a diet??without much issue.?? She denies any changes to her urinary habits.?? She denies any??bubbles in her urine??or stool.?? Her only??surgical procedure??is a laparoscopic cholecystectomy. Review of Systems Negative unless specified above Physical Exam Vitals & Measurements T:??98.1?F?? HR:??86??(Peripheral)?? RR:??23?? BP:??102/61?? SpO2:??94%?GENERAL APPEARANCE:??Well developed, well nourished, in no acute distress. ?LUNGS:??Auscultation of the lungs revealed normal breath sounds without any other adventitious sounds or rubs. ?CARDIOVASCULAR:??There was a regular rate and rhythm without any murmurs, gallops, rubs. ?ABDOMEN:??Soft, nondistended,??mildly tender to palpation in the right lower quadrant.?? Nosigns of peritonitis, rebound tenderness or guarding ?EXTREMITIES:??No cyanosis, clubbing or edema. ?NEUROLOGIC:??Alert and oriented x 3. Normal affect. Assessment/Plan May is a 52-year-old female who presented as a transfer from [facility] for concerns of perforated appendicitis??with a??large associated abscess.?? General surgery was consulted upon arrival to the [facility].?? On evaluation the patient is resting comfortably in no acute distress.?? Her abdomen is soft,??nondistended and mildly tender in the right lower quadrant??with no signs of peritonitis.?? Her labs were reviewed and significant for leukocytosis of 19.1 with a left shift.?? CT imaging was also reviewed which showed perforated tip appendicitis??with an associated abscess of approximately 10 cm in the deep pelvis.?? Given the patient's findings, she will be admitted??to the general surgery service??and started on broad-spectrum antibiotics.?? We will also place an IR consultation??for possible??drain placement??in her abscess. ?? Plan Admission N.p.o. IV fluids IV antibiotics IR consultation??for drain placement No acute surgical intervention at this time ?? Discussed with Dr. Gomez ACS/EGS 87166 Problem List/Past Medical History Ongoing Chronic psychosis Cigarette nicotine dependence Procedure/Surgical History Cholecystectomy Medications Inpatient Ceftriaxone Inj, 2 Gm, IVPB, Every 24 hours Enoxaparin Inj, 30 mg= 0.3 mL, Subcutaneous Injection, 2 times a day Flagyl IVPB, 500 mg= 100 mL, IVPB, Every 8 hours LR 1,000 mL, 1000 mL, IV Infusion oxyCODONE 5 mg oral tablet, 5 mg, By Mouth, Every 6 hours, PRN pantoprazole 20 mg oral delayed release tablet, 20 mg, By Mouth, Daily risperiDONE 1 mg oral tablet, 4 mg, By Mouth, Daily at bedtime sertraline 50 mg oral tablet, 50 mg, By Mouth, Daily Tylenol 325 mg oral tablet, 650 mg, By Mouth, Every 6 hours Zofran Inj, 4 mg, IV Push, Every 6 hours, PRN Home diazepam 2 mg oral tablet, 2 [...] History Alcohol Use: Never. Substance Abuse Use: Never. Tobacco Use: Former smoker, quit more than 30 days ago. Other: Pt quit 3 months ago. Immunizations Vaccine Date Status pneumococcal 23-valent vaccine 11/22/2019 Given influenza virus vaccine, inactivated 11/22/2019 Given pneumococcal 23-valent vaccine - Not Given Comments : Patient Refuses pt states she believes she has already received vaccine from PCP Lab Results BLOOD COUNT & DIFF WBC 19.1 k/mm3 (High)?? 04/28/2023 16:10 RBC 4.13 m/mm3 (Low)?? 04/28/2023 16:10 Hgb 11.1 Gm/dL (Low)?? 04/28/2023 16:10 Hct 33.7 % (Low)?? 04/28/2023 16:10 MCV 81.6 femtoliters ()?? 04/28/2023 16:10 MCH 26.9 pg (Low)?? 04/28/2023 16:10 MCHC 32.9 g/dL (Low)?? 04/28/2023 16:10 Platelet Count 354 k/mm3 ()?? 04/28/2023 16:10 RDW-SD 43.2 femtoliters ()?? 04/28/2023 16:10 MPV 9.2 femtoliters (Low)?? 04/28/2023 16:10 Nucleated RBC (Automated) 0.0 #/100 WBC'S ()?? 04/28/2023 16:10 Abs. NRBC 0.0 k/mm3 ()?? 04/28/2023 16:10 Abs. Neut 11.1 k/mm3 (High)?? 04/28/2023 16:10 Abs. Lymph 7.1 k/mm3 (High)?? 04/28/2023 16:10 Abs. Brooks 1.0 k/mm3 (High)?? 04/28/2023 16:10 Abs. Eo 0.0 k/mm3 ()?? 04/28/2023 16:10 Abs. Baso 0.0 k/mm3 ()?? 04/28/2023 16:10 Neut % 58.0 % ()?? 04/28/2023 16:10 Lymph % 28.0 % ()?? 04/28/2023 16:10 Brooks % 5.0 % ()?? 04/28/2023 16:10 Eos % 0.0 % ()?? 04/28/2023 16:10 Baso % 0.0 % ()?? 04/28/2023 16:10 Atypical Lymph % 9.0 % (High)?? 04/28/2023 16:10 Platelet Estimate ADEQUATE ()?? 04/28/2023 16:10 ?? CHEM GENERAL Sodium 131 mmol/L (Low)?? 04/28/2023 16:10 Potassium 3.7 mmol/L ()?? 04/28/2023 16:10 Chloride 94 mmol/L (Low)?? 04/28/2023 16:10 Bicarbonate Level 26 mmol/L ()?? 04/28/2023 16:10 Anion Gap 11 ()?? 04/28/2023 16:10 Glucose Level 117 mg/dL (High)?? 04/28/2023 16:10 BUN 10 mg/dL ()?? 04/28/2023 16:10 Creatinine-Blood 0.8 mg/dL ()?? 04/28/2023 16:10 Estimated GFR Creatinine 90 ML/MIN/1.73 M2 ()?? 04/28/2023 16:10 Calcium 9.4 mg/dL ()?? 04/28/2023 16:10 Protein, Total 7.5 Gm/dL ()?? 04/28/2023 16:10 Albumin 3.6 Gm/dL ()?? 04/28/2023 16:10 AG Ratio 0.9 ()?? 04/28/2023 16:10 Alkaline Phosphatase 116 units/L (High)?? 04/28/2023 16:10 Lipase 22 units/L ()?? 04/28/2023 16:10 AST (SGOT) 8 units/L ()?? 04/28/2023 16:10 ALT (SGPT) 6 units/L ()?? 04/28/2023 16:10 Bilirubin, Total 0.2 mg/dL ()?? 04/28/2023 16:10 Lactate 0.9 mmol/L ()?? 04/28/2023 16:10 ?? HEME OTHER Hold Blue Top SPECIMEN DISCARDED AFTER 4 HOURS. ()?? 04/28/2023 16:10 ?? MISC. CHEMISTRY Hold Green Top SPECIMEN DISCARDED AFTER 1 WEEK ()?? 04/28/2023 16:10 Hold Gel Top SPECIMEN DISCARDED AFTER 1 WEEK ()?? 04/28/2023 16:10 ?? UA/URINALYSIS Appear/Color, Urine YELLOW ()?? 04/28/2023 16:12 Clarity SL.CLOUDY (Abnormal)?? 04/28/2023 16:12 Specific Johnston, Urine 1.025 ()?? 04/28/2023 16:12 pH, Urine 5.5 ()?? 04/28/2023 16:12 Albumin, Urine TRACE (Abnormal)?? 04/28/2023 16:12 Glucose, Urine NEGATIVE ()?? 04/28/2023 16:12 Ketones, Urine NEGATIVE ()?? 04/28/2023 16:12 Bilirubin, Urine NEGATIVE ()?? 04/28/2023 16:12 Hemoglobin, Urine 1+ (Abnormal)?? 04/28/2023 16:12 Nitrite, Urine NEGATIVE ()?? 04/28/2023 16:12 Leukocyte, Urine 2+ (Abnormal)?? 04/28/2023 16:12 Urobilinogen NORMAL mg/dL ()?? 04/28/2023 16:12 WBC's, Urine 5 /HPF ()?? 04/28/2023 16:12 RBC's, Urine 1 /HPF ()?? 04/28/2023 16:12 Bacteria SLIGHT HPF (Abnormal)?? 04/28/2023 16:12 Squamous Epith 35 /HPF (High)?? 04/28/2023 16:12 Mucus HEAVY /LPF ()?? 04/28/2023 16:12 Budding Yeast PRESENT /HPF ()?? 04/28/2023 16:12 Hold Urine Culture Testing available 48 hours from time of collection. ()?? 04/28/2023 16:12 ?? URINE OTHER Urine, NEGATIVE (N)?? 04/28/2023 16:12 Est Creatinine Clearance 67.16 mL/min ()?? 04/28/2023 16:37 ?? VIROLOGY Influenza A PCR NEGATIVE ()?? 04/28/2023 14:56 Influenza B PCR NEGATIVE ()?? 04/28/2023 14:56 RSV PCR NEGATIVE ()?? 04/28/2023 14:56 COVID-19 PCR Specimen Source NASAL ()?? 04/28/2023 14:56 COVID-19 PCR Result NEGATIVE ()?? 04/28/2023 14:56 ?? Images Abdomen and pelvis with contrast demonstrates subacute perforated tip appendicitis with large associated abscess. ??There is a 10 cm multilocular thick walled abscess contiguous with an arising from the perforated inflamed thickened tip of the appendix which is from the lumen of the rest of the appendix and appendicolith. ??Local inflammation. ??Reactive inflammatory thickening of the adjacent sigmoid colon. ??No pneumoperitoneum..?? * Hitesh Gomez MD: PERFORM Event Display: Admission Note Authored Date: I have seen and examined the patient, the above note summarizes my encounter on the recorded date Hospital Progress note * Carol BOWER, Sherine: PERFORM, SIGN, VERIFY Event Display: Progress Note Hospital Authored Date: [id number] Patient: RADHAMay Age: 52 years Sex: Female : 1970 Associated Diagnoses: None Author: Carol RN, Sherine Findings Evaluation During my shift pt was continuing acute care, RA, A&Ox4, VSS. Pt complaining of some abd pain, pain medications given w/good effect. Pt is deaf and we were able to utilize the stratus interpretorservices. Pt RLQ SHILPA drain outputting small amounts os purulent/serosnag output. Stratus used for discharge instructions and instructions on how to empty SHILPA drain. Pt will be getting VNA services, pharmacy brought up all pt meds. Pt d/c around 1450 and left via wheelchair w/belongings. . Discharge Information Case Management Discharge Plan : Case Management Discharge Plan Data 05/02/2023 15:44 EDT Discharge Level of Care at Discharge Homehealth/VNA Discharge VNA/Hospice/Home Care [facility] [phone] 05/02/2023 10:22 EDT Discharge Level of Care at Discharge Homehealth/VNA Discharge VNA/Hospice/Home Care [facility] [phone] Discharge Transportation Arranged Car Name of Agency #1 In Error (In Error) Agency [facility] Worker #1 Intake Service Categories #1 Physical Therapy, Residential Service Comments #1 You have been set up with homecare services, please allow the agency 24 hours to contact you in regards to your first appointment, if they have not contacted you in this timeframeplease contact the agency. Thank you. (Modified) Additional Info for D/C Instructions [facility] will contact you on your video phone to set up your first appointment. The video phone number that you supplied to us [phone] and that is the number that we shared with them with your permission. Rehabilitation Discharge : Rehab Discharge Index 05/02/2023 12:08 EDT Walker: distance >50 05/01/2023 15:23 EDT Comments on treatment indicated 52yo F, deaf. Admit as tx from [facility] with ruptured appendix and abscess. PT for ambulation, ther-ex, stairs. Rec home c PT services. Distance pt will ambulate 300ft Full chart review completed Yes Hospital course 04/21: Late admit to unit, per chart pt is SBA with ambulation s AD Other findings Per comment: Plan of care PT Gait training, Transfer training, Therapeutic exercise, Functional Activities, Balance training, Neuromuscular education * Madelyn BOWER, Rina Suarez: PERFORM, SIGN, VERIFY Event Display: Progress Note Hospital Authored Date: [id number] Patient: RADHAMay Age: 52 years Sex: Female : 1970 Associated Diagnoses: None Author: Madelyn BOWER, Rina Suarez Findings Problem Related to Alteration in Gastrointestinal : Alteration in Gastrointestinal Func/new 05/01/2023 21:00 EDT Alteration in GI status Related to Abdominal Surgery Goals & Outcomes, Gastrointestinal Nutritional intake is adequate for metabolic needs, Pt will achieve normal/improved fluid balance, Pt will maintain adequate GI function appropriate for pt, Pt will maintain normal elimination patterns Interventions, Gastrointestinal Assess/monitor abdomen for distention, tenderness, Assess/monitor abdominal girth & bowel function, Assess/monitor bowel pattern, bowel sounds, flatus, Assess/monitor number of bowel movements, Assess/monitor color, quantity, quality, consistency of stoo, Assess/monitor pt for nausea, vomiting, Assess/monitor effects of re-hydration, Assess/monitor intake &output, Assess if pt tolerating diet, DVT prophylaxis as ordered, Elevate HOB to facilitate lung expansion, prevent aspiration, Establish toileting schedule for patient, Provide info on community resources for education, support, Teach/encourage deep breath & cough exercises, Teach/encourage use of incentive spirometer Goals/Interventions, Gastrointestinal Yes Gastrointestinal, Problem Start 04/29/2023 12:50 Reviewed plan with, Gastrointestinal Patient Patient Progression, Gastrointestinal Pt progressing according to plan . Narrative/Incidental pt is A&OX4, she is deaf as a baseline, she is able to read lip and we have an passenger car cleaning supervisor as needed, she has been tolerating CL diet without N/V, she has RLQ SHILPA flushed with 5cc, purulent drainage, cap was intact at all times with flush an with all times during emptying of contents of drainagein SHILPA then replaced back to bulb suction, drainage consists of serous/purulent drainage, she was ass isted back and forth to the bathroom, pain controlled with PO scheduled and PRN pain medications. IV antibiotics given as ordered, she requested to have her night time Lorazepam ordered for sleep, MDnotified, they were able to order this for her to sleep with good effect. call light within reach, safety measures provided. see cis for all results and full assessment. . * Enriqueta Smith RN: VERIFY, PERFORM, SIGN Event Display: Progress Note Hospital Authored Date: [id number] Patient: RADHAMay Age: 52 years Sex: Female : 1970 Associated Diagnoses: None Author: Enriqueta Smith RN Findings Problem Related to Alteration in Comfort : Alteration in Comfort/new 05/01/2023 15:00 EDT Alteration in Comfort Related to Surgery Goals & Outcomes: Comfort Pt will report acceptable level of comfort & pain control, Pt will state importance of adhering to pain strategy regime, Pt will demonstrate necessary skills to manage pain, Non-verbal indicators will indicate comfort/pain control Interventions Implemented: Comfort Assess pain using appropriate pain scale/tools, Assess aggravating factors & prevent them accordingly, Assess alleviating factors & promote them accordingly BH Goals/Interventions, Comfort Yes Comfort, Problem Start 05/01/2023 15:00 Reviewed plan with, Comfort Patient Patient Progression, Comfort Pt progressing according to plan Comfort, Problem Ongoing Yes . Alteration in Gastrointestinal : Alteration in Gastrointestinal Func/new 05/01/2023 15:00 EDT Alteration in GI status Related to Abdominal Surgery Goals & Outcomes, Gastrointestinal Nutritional intake is adequate for metabolic needs, Pt will achieve normal/improved fluid balance, Pt will maintain adequate GI function appropriate for pt, Pt will maintain normal elimination patterns Interventions, Gastrointestinal Assess/monitor abdomen for distention, tenderness, Assess/monitor abdominal girth & bowel function, Assess/monitor bowel pattern, bowel sounds, flatus, Assess/monitor number of bowel movements, Assess/monitor color, quantity, quality, consistency of stoo, Assess/monitor pt for nausea, vomiting, Assess/monitor effects of re-hydration, Assess/monitor intake &output, Assess if pt tolerating diet, DVT prophylaxis as ordered, Elevate HOB to facilitate lung expansion, prevent aspiration, Taking PO: Encourage/monitor intake & swallowing ability, Teach Pt/caregiver diet & give copy of dietary instructions, Teach Pt/caregiver on bowel elimination inter ventions, Teach Pt/caregiver re: importance of bowel regime, Teach Pt/caregiver re: nutritional intake & dietary restrict, Teach/encourage deep breath & cough exercises, Teach/encourage use of incentive spirometer, Incision care as ordered BH Goals/Interventions, Gastrointestinal Yes Gastrointestinal, Problem Start 04/29/2023 12:50 Reviewed plan with, Gastrointestinal Patient Patient Progression, Gastrointestinal Pt progressing according to plan . Evaluation Patient is alert and oriented x4. Acute no tele. Patient is deaf but communicates very well with lip reading and the use of a sign language interpretor. Patient has SHILPA drain to RLQ with minimal purulent output. Dressing changed this AM. Drain teaching done with sign language interpretor for care, ho w to empty, how to keep bulb suction and what to record for output and output characteristics. Patients pain is 5/10 to RLQ and being controlled with PRN oxy and scheduled medications. Patient standby assist to bathroom. Tolerating diet without nausea or vomiting. Abdomen is soft, round, non tenderwith positive bowel sounds. Patient had some bleeding when in the bathroom, stated that it was fromher hemmorhoids and that it is normal for her. +pedal.radial pulses. Resting in bed at this time, call wong within reach and alarm activated... Note * Sherine Medina RN: PERFORM Event Display: Discharge/Transfer Note Hospital Authored Date: [id number] Nursing Discharge Note Entered On: 05/02/2023 15:45 EDT Performed On: 05/02/2023 15:44 EDT by Sherine Medina RN Nursing Discharge Note 2 Discharge Time : 05/02/2023 14:50 EDT Discharge Level of Care at Discharge : Homehealth/VNA Discharge VNA/Hospice/Home Care(v001) : [facility] [phone] Patient Left Unit Via : Wheelchair Patient Accompanied Off Unit with : Other: staff DC Instructions Provided & Signed by Pt : Yes Patient Understands D/C Instructions : Yes Patient Instructions Discharge Signed : Yes Did Pt have Specialty Bed or Wound Vac : No Sherine Medina RN - 05/02/2023 15:44 EDT * Liliane Bryant: PERFORM Event Display: Discharge/Transfer Note Hospital Authored Date: [id number] Patient: ??May ? Age:??52 Years?Sex:??Female?:??1970?? Admit Date Admission Date: 04/29/2023 Discharge Date 05/02/23 Discharge Diagnoses Perforated appendicitis, 04/30/2023 Hospital Course May is a 52-year-old female who presented?? to [facility] on 04[place] from [facility] for concerns of perforated appendicitis??with a??large associated abscess.?? General surgery was consulted upon arrival to the [facility].?? Her labs were reviewed and significant for leukocytosis of 19.1 with a left shift.?? CT imaging was also reviewed which showed perforated tip appendicitis??with an associated abscess of approximately 10 cm in the deep pelvis.?? Given the patient'sfindings, she was admitted??to the general surgery service??and started on broad-spectrum antibiotics.?? IR consultation??for possible??drain placement,. She underwent ct guided drain procedure on 04/29 with??30cc purulent output removed. Culture pending at this time. She was continued on ceftriaxone and flagyl.??She remained afebrile. Labs with downtrending leukocytosis. She did have diet advanced to dental soft with good effect. Her abdomen pain improved. She did have bowel function. She was cleared for discharge home . PT was consulted. Home with services recommended. She was discharged home with VNA services for drain management. She will have a CT Scan of the abdomen on 05/07/23 and follow up with the surgical office on 05/07 for close follow up. She will continue Augmentin 875mg bid x3days. She was given oxycodone, Tylenol and colace at discharge. No medication changes made to home m eds. Objective/Physical Exam on Day of Discharge Vitals & Measurements T:??97.8?F?? HR:??81??(Peripheral)?? RR:??18?? BP:??103/60?? SpO2:??94%?? HT:??157??cm?? WT:??68??kg?? BMI:??27.59?? GENERAL APPEARANCE:?? no acute distress. LUNGS:??non labored, RA CARDIOVASCULAR:??RRR ABDOMEN:??Soft, nondistended,??mildly tender to palpation in the right lower quadrant.??No rebound or guarding. IR drain with purulent ss output in bulb. 65 cc x 24 hours EXTREMITIES:??No calf tenderness. NEUROLOGIC:??Alert and oriented x 3. Assessment/Plan Perforated appendicitis (K35.32):??c ?? Future Appointments 2023 1:40 PM EDT ?? With: Hitesh Gomez MD Where: [facility] [address] [place] [address]- Status: Pending Friday 11:30 AM EDT ?? With: Sergei ESTEVEZ, Belle Where: [facility] [address] [facility] 2nd [place] [address]- Status: Pending Patient Discharge Condition Good /improved Discharge Disposition home with vna Home Health Face to Face *Denotes mandatory garrido ?? *I certify that this patient is under my care and that I or an allowed non- physician working with me had a face to face encounter with the patient on this date:??05/02/2023 10:18 ?? *The encounter with the patient was in whole, or in part, for the following medical condition, which is the primary diagnosis(es) for home health care:??Appendicitis (K37) Perforated appendicitis (K35.32) ? *Select the indications for the discipline/s that are being arranged for this patient. Nursing (select all that apply): [_] None [_] Medication management (reconciliation, teaching)?? [_] Chronic disease management?? [x_] Wound care and treatment?? [_] Home safety evaluation [_] Administer SQ/IM/IV medications?? [_] Cath care?? [_x] Drain care?? [_] Trach or GT care?? Other _ Occupation Therapy (select all that apply): [_] None [_] ADL Management [_] Fall prevention training [_] Energy conservation [_] Cognitive training Other _ Physical Therapy (select all that apply): [_] None [_x] Functional mobility training [_] Home exercise program to strengthen [_] Increase ROM?? [_] Falls prevention training [_] Home maintenance program for chronic disease Other _ Speech Therapy (select all that apply): [_] None [_] Swallow evaluation and training [_] Speech and language training [_] Cognitive training to process, organize, and/or recall information Other _ ? *Homebound due to (select all that apply): [x_] Inability to leave home without assistance/supervision [_] Inability to ambulate without assistance [_] Pain [_] Decreased strength and endurance [_] Unsteady gait [_] Severe SOB and fatigue [_] Impaired transfers [_] Inability to negotiate stairs [_] Limited weight bearing [_] Mental status change? *Physician Signature: _ ?? *By signing this, I certify that I have personally evaluated the patient and agree with the findings and recommendations as documented above. ? lthFTF Procedures Performed This Visit CT guided drainage catheter placement Inpatient Medications Medications (11) Active SCHEDULED: (8) Acetaminophen 325 mg Tablet (Tylenol 325 mg oral tablet) ??975 mg, By Mouth, Every 6 hours Ceftriaxone 2 Gm Inj (Ceftriaxone Inj) ??2 Gm, IVPB, Every 24 hours Enoxaparin 30 mg Inj (Enoxaparin Inj) ??30 mg 0.3 mL, Subcutaneous Injection, 2 times a day Metronidazole 500 mg / NaCL 0.9% 100 mL (Flagyl IVPB) ??500 mg 100 mL, IVPB, Every 8 hours Pantoprazole 20 mg EC Tablet (pantoprazole 20 mg oral delayed release tablet) ??20 mg, By Mouth, Daily Risperidone 0.25 mg Tablet (risperiDONE 1 mg oral tablet) ??0.5 mg, By Mouth, Every 24 hours Risperidone 1 mg Tablet (risperiDONE 1 mg oral tablet) ??4 mg, By Mouth, Daily at bedtime Risperidone 1 mg Tablet (risperiDONE 1 mg oral tablet) ??1 mg, By Mouth, Daily before breakfast CONTINUOUS: (0) PRN: (3) Calcium Carbonate 500 mg (Calcium 200 mg) Chewable Tablet (Tums 500 mg oral tablet, chewable) ??1,000 mg 2 tablet, Chew, Every 4 hours Ondansetron 2mg/mL Inj (2mL Vial) (Zofran Inj) ??4 mg, IV Push, Every 6 hours OxyCODONE 5 mg IR Tablet (oxyCODONE 5 mg oral tablet) ??5 mg, By Mouth, Every 4 hours Discharge Medications Acetaminophen (Tylenol 325 mg oral tablet)?325?Milligram?1?tablet?By Mouth?Every 6 hours?as needed?for pain Amoxicillin-Clavulanate (Augmentin 875 mg-125 mg oral tablet)?1?tab(s)?By Mouth?Every 12 hours?for 3?Days Docusate (Colace sodium 100 mg oral capsule)?100?Milligram?1?capsule?By Mouth?2 times a day?as needed?for constipation Lorazepam (Ativan 0.5 mg oral tablet)?1?tab(s)?0.5?Milligram?By Mouth?Daily at bedtime Omeprazole (omeprazole 20 mg oral delayed release tablet)?1?tab(s)?20?Milligram?By Mouth?Daily?as needed?Dyspepsia Oxycodone (oxyCODONE 5 mg oral tablet)?5?Milligram?1?tablet?By Mouth?Every 6 hours?as needed?for 3?Days?as needed for pain Polyethylene Glycol 3350 (MiraLax oral powder for reconstitution)?17?gram?By Mouth?Daily?as needed?Constipation Risperidone (risperiDONE 1 mg oral tablet)?1?Milligram?1?tablet?By Mouth?Daily Lilliana Risperidone (risperiDONE 1 mg oral tablet)?0.5?Milligram?0.5?tablet?By Mouth?Daily?@Noon Risperidone (risperiDONE 4 mg oral tablet)?1?tab(s)?4?Milligram?By Mouth?Daily atbedtime Labs Last 24 Hours BLOOD COUNT & DIFF ? Event Name?? Event Result?? Date/Time?? WBC 10.3 k/mm3 05/02/23 06:45:00 RBC 3.44 m/mm3??Low 05/02/23 06:45:00 Hgb 9.4 Gm/dL??Low 05/02/23 06:45:00 Hct 29.3 %??Low 05/02/23 06:45:00 MCV 85.2 femtoliters 05/02/23 06:45:00 MCH 27.3 pg 05/02/23 06:45:00 MCHC 32.1 g/dL??Low 05/02/23 06:45:00 Platelet Count 281 k/mm3 05/02/23 06:45:00 MPV 9.7 femtoliters 05/02/23 06:45:00 Nucleated RBC (Automated) 0 #/100 WBC'S 05/02/23 06:45:00 ? CHEM GENERAL ? Event Name?? Event Result?? Date/Time?? Sodium 139 mmol/L 05/02/23 06:47:00 Chloride 104 mmol/L 05/02/23 06:47:00 Bicarbonate Level 30 mmol/L??High 05/02/23 06:47:00 Anion Gap 5 05/02/23 06:47:00 BUN 5 mg/dL??Low 05/02/23 06:47:00 Creatinine-Blood 0.7 mg/dL 05/02/23 06:47:00 Calcium, Ionized pH Corrected 1.22 mmol/L 05/02/23 06:47:00 Phosphorus 2.2 mg/dL??Low 05/02/23 06:47:00 Magnesium 1.7 mg/dL 05/02/23 06:47:00 ? Patient Education Titles Web[employer] Ignite Patient Education - What Is Appendicitis??? [employer] Patient Education - Discharge Instructions: Caring for Your Niraj-Montes Drainage Tube?? Follow-Up Appointments Added Follow Up ?Time Frame ?Comments Guillermo AVILEZ , Sneha Arceo?1 week?for post hospital stay follow up Patient Instructions AFTER YOUR SURGERY? IF YOU HAVE HAD GENERAL ANESTHESIA, NO DRIVING, DRINKING ALCOHOL, OR MAKING LEGAL DECISIONS FOR THENEXT 24 HOURS. ?? Diet: ?Return to your regular diet by advancing slowly from clear liquids to soft, bland foods, and finally to a normal meal over 24 hours, avoiding anything heavy, greasy, or spicy. ?Drink 6 to 8 glasses of fluids per day. ?No alcoholic beverages post-operatively or while taking pain medications. ?? Activity:?Avoid any activity that causes discomfort.?Normal daily activities are safe. ?Avoid straining, vigorous sports or lifting anything more than 10 pounds for 4 weeks, or as directed by your surgeon. ?After the first 24 hours, you may drive whenever comfortable, but do not go alone the first time and do not drive after taking pain medications. ? Dressings and Wound care: ?You may remove your bandage (if you have one in place) in 48 hours and shower (no soaking in a tub, pool, or hot tub.)?If you have steri-strips, aixa, or sutures, it???s okay if they happen to get wet, but be sure to pat dry with a clean towel as soon as you get out. ?It is very important to keep your incision area clean and dry.?You may cover up the incisions with a bandage for protection, but once the incisions are dried/ scabbed over, you may leave them open to air.?Steri- strips will start curling up and drying out over several days.?Theymay start to drop off by themselves, and this is all right.? Medications: ?Pain:?If you did not receive your prescription at your office visit, you will be given a prescription for pain at the time of discharge. Follow the instructions for taking these medications.?If the pain you are experiencing is mild, extra-strength Tylenol will likely take care of i t.?Remember that narcotic pain medications can cause constipation.?Some narcotics contain Tylenol (acetaminophen) and if additional pain medicines are required, do not take additional Tylenol products- use ibuprofen or naproxen instead.?Take a stool softener as prescribed below and drink plenty of fluids.?NOTE: Refills for pain medications will be available (if needed) Friday thru 8:30 am to 4:00 pm.??You or a family member will have to come to the office to case picker a paper prescription.??DO NOT call the office or answering service on nights or weekends for pain medication refills because pharmacies do not fill narcotics by phone or fax. ?Home Medications: Resume any medications your primary physician has prescribed unless specifically instructed. ?Antibiotics: If one is prescribed for you, be sure to take it until there are no more pills left.?Stool softener:?Colace 100 mg??or its generic form??DOCUSATE??tablet by mouth twice a day as directed. Some people will need to take stool softener short-term after surgery. If you have chronic diarrhea or inflammatory bowel disease, you should not take stool softener unless you are c onstipated ?Constipation:?Take??Milk of Magnesia??as directed on the bottle every 6 hours for 24hours, OR Miralax at night per directions.?These are both available over the counter.?If thisfails to relieve the problem, call the office. ?? Expect the following: ?Some oozing of blood to the bandage in the first 24 hours. ?Fatigue, especially in the first 24 hours. ?Pain or discomfort, which will lessen as time passes.?If your surgery was done laparoscopically, you could have abdominal, shoulder, or collarbone pains.?These will disappear gradually over several days. ?Constipation is a possibility, especially if narcotic pain relievers are needed. ?? Call the office or answering service immediately if any of the following occur: ?Severe pain not relieved by pain medication. ?Uncontrollable bleeding/ bleeding that saturates your dressing. ?Any bright redness, red streaking, or swelling around your incision, or any bad odor, or pus-like drainage coming from your incision. ?Temperature more than??101 F (38 C). ?Repeated nausea and vomiting or inability to tolerate or hold down fluids ?Inability to urinate. ?? Post-operative appointments: ?If you have not already scheduled your follow-up appointment, call . You should arrange to be seen in 2-3 weeks after surgery.?Ask regarding exact timing of follow-up. ?A nurse visit might also be schedule for 1 week after for staple/suture removal or wound check.? Problems or Questions: ?Office hours are 8:30 am to 5:00 pm Friday thru Friday. It is best to call during office hours with routine questions.?You may reach the clinical staff during office hours at ?If you have an after-hours emergency, you can call the answering service at . ?If you cannot reach our office and your problem truly requires emergency attention, go to??[facility] Emergency Room??or the nearest emergency room. ? See discharge instructions for management of Drain. Keep clean and dry. Keep bulb to suction. Keep track of daily output. Dressing change daily to drain site. Images RESULT: CT Abd/Pelvis W/ IV Contrast Only CT of the abdomen and pelvis dated April 28, 2023. Comparison films are from August 19, 2022. ?? HISTORY: Pain. ?? FINDINGS: CT imaging was performed with multislice acquisition from the dome of the diaphragm through the symphysis pubis without the use of oral contrast material and during the infusion of 100 cc of Omnipaque 300 nonionic contrast material. Axial, coronal, and sagittal reconstruction was performed. A weight based protocol using automatic tube modulation was used to optimize exposure parameters. ?? The liver is mildly increased in size. There is some focal fatty infiltration around the major fissure. ?? The gallbladder is surgically absent. ?? Spleen is markedly enlarged measuring up to 16 cm in transverse diameter. No focal abnormality is appreciated. ?? The pancreas is normal in size and appearance. ?? The adrenal glands are normal in size and appearance. ?? The kidneys are normal in size. They enhance symmetrically. No calculus, mass or obstruction is identified. ?? There are prominent retroperitoneal and intra-abdominal lymph nodes. No free air or free fluid is identified. ?? Examination of the pelvis shows a large loculated abscess adjacent to a dilated appendix. In greatest transverse diameter, this measures up to 10 cm in diameter. It has enhancement of the cruz and some internal gas. Some additional inflammatory changes extend into the pelvis on the right side greater than left. No free air is appreciated. Reproductive organs are age-appropriate. ?? There is no evidence of bowel obstruction. ?? The abdominal wall is intact. ?? Mild atherosclerotic calcifications are present in the aorta and branch vessels. There is normal contrast enhancement of superior mesenteric vein, portal vein splenic vein. ?? As visualized, the lung bases are unremarkable. ?? Partially imaged in the right inferior axilla is a 2.7 cm oval soft tissue structure with a mean Hounsfield unit measurement of 40. ?? Minimal degenerative changes are noted in the spine. ?? IMPRESSION: ?? Findings are consistent with ruptured appendix with a large pelvic abscess. These results were communicated to Dr. Snider, at 12:05 AM eastern standard time on April 29, [address] Cristopher Flanagan. ?? Soft tissue structure in the inferior aspect of the right axilla of uncertain etiology. It was not completely imaged on this study. Further evaluation with physical examination, ultrasound, or CT maybe helpful. ?? Splenomegaly. ?? Hepatomegaly. ?? Status post cholecystectomy. * Gautam AVILEZ, Quique: PERFORM Event Display: Discharge/Transfer Note Hospital Authored Date: I have seen and evaluated this patient on the above documented date. I have discussed the case and its management with the resident team and APPs as documented in the progress note. ? Doing well ?? Discharge planning to home Will need repeat CT abdomen 05/07/23 with plans to f/u in the clinic on 05/08/23. ? RA * Event Display: Discharge/Transfer Note Hospital Authored Date: * Sherine Medina RN: PERFORM Event Display: Patient Education/Instruction Authored Date: [id number] Inpatient Adult Discharge Instructions. [address] [address] Name: VALENTIN GARCIA : 1970?? Visit: 04/29/2023 03:02?? Current Date: 05/02/2023 13:18 ?? Account: [id number]?? Inpatient Adult Discharge Instructions We would like [...] and their families. Surveys are administered by [employer] ?? If further treatment with your primary care physician or another doctor is recommended, it is important for you to keep the appointment. Call your primary care physician or return to the Emergency Department immediately if your condition worsens, fails to improve, or new symptoms develop. If you need to find a doctor, you can call [facility] for a referral at [phone] or toll free at [phone] or log in to [email or web address] ?? [facility], in keeping with [facility] guidance, no longer requires face masks for staff, patientsor visitors in most situations. Similiar to time spent indoors at other locations, there is the chance that you were exposed to repiratory viruses during your time with us (such as flu or COVID-19). If you develop symptoms concerning for a viral respiratory infection, please seek testing (and treatment if indicated) from your medical provider or home test kit. ?? You can view and manage your care through the patient portal or by using a health care genaro of your choosing. [employer] is a website that allows you to securely view your medical information including your hospital discharge summary, office visit summaries, medications and follow-up visits. You can also request appointments, renew medications, and request access to your medical information using a health care genaor of your choosing, or just ask a question. You can enroll at [email or web address] or register during your next office visit. You have been discharged from [facility], Patient Care Unit: SW5??. If you have any questions regarding these instructions, including results of studies pending, afteryou leave, please call us and we will be happy to assist you 02/09. [facility] Your Care Team Attending Physician Hitesh Gomez MD?? Consulting Providers Hitesh Gomez MD?? Discharging Providers Liliane Bryant Reason for Your Visit ??RN to [facility] Velásquez abdominal pain x1 week. 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 ??Blood in stool x1 week. WBC 19.1 CT showed acute appendicitis w/ perforation/abscess. ??1 liter [id number] LAC 11?? Your Diagnosis Perforated appendicitis Tests Performed Below is a partial list of the tests performed during your hospitalization. You may have had other tests and procedures not included in this list. Please discuss all test results with your provider. Blood Culture Blood Culture #2 Blood Culture 2 Results Blood Culture Result BUN CBC w/ Differential COVID-19 (2019 Novel Coronavirus) PCR Creatinine Electrolytes Ionized Calcium Lactate Level Magnesium Level Phosphorus Level PT (INR) PTT UA W/Reflex Culture & Renal URINARY MICROALBUMIN CT Rad Guide Per Drain W/ Place BUN?? CBC w/ Differential?? Creatinine?? Electrolytes?? Ionized Calcium?? Magnesium Level?? Phosphorus Level?? Sterile Body Fluid Culture W/ Gram Smear?? Primary Care Provider Sneha Li MD? Advance Directive Health Care Proxy on File No Patient refuses to discuss Discharge Vitals Temperature: 98.1 DegF Height: 157 cm Pulse Rate: 80 bpm Weight: 68 kg Respiratory Rate: 18 br/min Body Mass Index:??27.59 kg/m2??High Systolic Blood Pressure: 102 mm Hg Body surface area: 1.72 Diastolic Blood Pressure: 62 mm Hg ?? Oxygen Saturation: 98 % ?? Studies Pending All studies ordered during this hospital stay have been completed unless listed below. Please discuss all pending results with your provider listed above in these instructions. ?? BUN?? CBC w/ Differential?? Creatinine?? Electrolytes?? Ionized Calcium?? Magnesium Level?? Phosphorus Level?? Sterile Body Fluid Culture W/ Gram Smear?? What to do next Instructions From Your Doctor AFTER YOUR SURGERY? IF YOU HAVE HAD GENERAL ANESTHESIA, NO DRIVING, DRINKING ALCOHOL, OR MAKING LEGAL DECISIONS FOR THENEXT 24 HOURS. ?? Diet: ?Return to your regular diet by advancing slowly from clear liquids to soft, bland foods, and finally to a normal meal over 24 hours, avoiding anything heavy, greasy, or spicy. ?Drink 6 to 8 glasses of fluids per day. ?No alcoholic beverages post-operatively or while taking pain medications. ?? Activity:?Avoid any activity that causes discomfort.?Normal daily activities are safe. ?Avoid straining, vigorous sports or lifting anything more than 10 pounds for 4 weeks, or as directed by your surgeon. ?After the first 24 hours, you may drive whenever comfortable, but do not go alone the first time and do not drive after taking pain medications. ? Dressings and Wound care: ?You may remove your bandage (if you have one in place) in 48 hours and shower (no soaking in a tub, pool, or hot tub.)?If you have steri-strips, aixa, or sutures, it???s okay if they happen to get wet, but be sure to pat dry with a clean towel as soon as you get out. ?It is very important to keep your incision area clean and dry.?You may cover up the incisions with a bandage for protection, but once the incisions are dried/ scabbed over, you may leave them open to air.?Steri- strips will start curling up and drying out over several days.?Theymay start to drop off by themselves, and this is all right.? Medications: ?Pain:?If you did not receive your prescription at your office visit, you will be given a prescription for pain at the time of discharge. Follow the instructions for taking these medications.?If the pain you are experiencing is mild, extra-strength Tylenol will likely take care of i t.?Remember that narcotic pain medications can cause constipation.?Some narcotics contain Tylenol (acetaminophen) and if additional pain medicines are required, do not take additional Tylenol products- use ibuprofen or naproxen instead.?Take a stool softener as prescribed below and drink plenty of fluids.?NOTE: Refills for pain medications will be available (if needed) Friday thru 8:30 am to 4:00 pm.??You or a family member will have to come to the office to case picker a paper prescription.??DO NOT call the office or answering service on nights or weekends for pain medication refills because pharmacies do not fill narcotics by phone or fax. ?Home Medications: Resume any medications your primary physician has prescribed unless specifically instructed. ?Antibiotics: If one is prescribed for you, be sure to take it until there are no more pills left.?Stool softener:?Colace 100 mg??or its generic form??DOCUSATE??tablet by mouth twice a day as directed. Some people will need to take stool softener short-term after surgery. If you have chronic diarrhea or inflammatory bowel disease, you should not take stool softener unless you are c onstipated ?Constipation:?Take??Milk of Magnesia??as directed on the bottle every 6 hours for 24hours, OR Miralax at night per directions.?These are both available over the counter.?If thisfails to relieve the problem, call the office. ?? Expect the following: ?Some oozing of blood to the bandage in the first 24 hours. ?Fatigue, especially in the first 24 hours. ?Pain or discomfort, which will lessen as time passes.?If your surgery was done laparoscopically, you could have abdominal, shoulder, or collarbone pains.?These will disappear gradually over several days. ?Constipation is a possibility, especially if narcotic pain relievers are needed. ?? Call the office or answering service immediately if any of the following occur: ?Severe pain not relieved by pain medication. ?Uncontrollable bleeding/ bleeding that saturates your dressing. ?Any bright redness, red streaking, or swelling around your incision, or any bad odor, or pus-like drainage coming from your incision. ?Temperature more than??101 F (38 C). ?Repeated nausea and vomiting or inability to tolerate or hold down fluids ?Inability to urinate. ?? Post-operative appointments: ?If you have not already scheduled your follow-up appointment, call . You should arrange to be seen in 2-3 weeks after surgery.?Ask regarding exact timing of follow-up. ?A nurse visit might also be schedule for 1 week after for staple/suture removal or wound check.? Problems or Questions: ?Office hours are 8:30 am to 5:00 pm Friday thru Friday. It is best to call during office hours with routine questions.?You may reach the clinical staff during office hours at ?If you have an after-hours emergency, you can call the answering service at . ?If you cannot reach our office and your problem truly requires emergency attention, go to??[facility] Emergency Room??or the nearest emergency room. ?? Orders?? 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 Do not move to , ??05/02/23 10:28:00 EDT?? Scheduled Follow-Up Appointments 2023 1:40 PM EDT ?? With: Hitesh Gomez MD Where: [facility] [address] [place] [address]- Status: Pending Ana Ken. 4, 2024 11:30 AM EDT ?? With: Sergei ESTEVEZ, Belle Amaro Where: [facility] [address] [facility] 2nd [place] [address]- Status: Pending You Need to Schedule the Following Appointments Follow Up with??Guillermo AVILEZ , Sneha Arceo When:??Within 1 week Why: for post hospital stay follow up Where: [address] [facility] [address] [place] [address]- Discharge Medications May :1970 Visit Date:04/29/2023 Medications: Please continue your medications until treatment is completed or stopped by your provider. Medications not listed below should be discontinued. Discuss any questions related to medications with your provider. What How Much When Instructions Next Dose New Acetaminophen (Tylenol 325 mg oral tablet) 1 tab(s) Oral Every 6 hours as needed for for pain Pickup at [place] [address] 05/01 @ 1800 New Amoxicillin-Clavulanate (Augmentin 875 mg-125 mg oral tablet) 1 tab(s) Oral Every 12 hours Duration: 3 Days Pickup at [place] [address] 05/01 with evening meds New Docusate (Colace sodium 100 mg oral capsule) 1 capsule Oral Twice a day as needed for for constipation Pickup at [place] [address] as needed New Durable Medical Equipment (Walker) See instructions walker with wheels ?? Printed Prescription New Durable Medical Equipment (Walker) See instructions walker with wheels ?? Printed Prescription New Oxycodone (oxyCODONE 5 mg oral tablet) 1 tab(s) Oral Every 6 hours as needed for as needed for pain Duration: 3 Days Pickup at [place] [address] 05/01 when needed and then every 6 hrs Changed Lorazepam (Ativan 0.5 mg oral tablet) 1 tab(s) Oral Daily at Bedtime 05/01 at bedtime Changed Risperidone (risperiDONE 1 mg oral tablet) 1 tab(s) Oral Daily in the morning 05/02 0900 Changed Risperidone (risperiDONE 1 mg oral tablet) 0.5 tab(s) Oral Daily @Noon ?? Changed Risperidone (risperiDONE 4 mg oral tablet) 1 tab(s) Oral Daily at Bedtime 05/01 at bedtime Unchanged Omeprazole (omeprazole 20 mg oral delayed release tablet) 1 tab(s) Oral Daily as needed for Dyspepsia 1x/day??as needed Unchanged Polyethylene Glycol 3350 (MiraLax oral powder for reconstitution) 17 gram Oral Daily as needed for Constipation 1x/day??as needed Pharmacy Information [facility] [address]: [address] [place] [address] [phone] Prescription Given During Visit Acetaminophen (Tylenol 325 mg oral tablet) - 1 tablet = 325 mg, By Mouth, Every 6 hours, # 30 tablet, 0 Refills, [address] [address] [phone]?? Amoxicillin-Clavulanate (Augmentin 875 mg-125 mg oral tablet) - 1 tablet, By Mouth, Every 12 hours,# 6 tablet, 0 Refills, [place] [address] [phone]?? Docusate (Colace sodium 100 mg oral capsule) - 1 capsule = 100 mg, By Mouth, 2 times a day, # 20 capsule, 0 Refills, [facility] [address], [address] [place] [phone] [phone]?? Durable Medical Equipment (Walker) - , # 1 each, walker with wheels?? Durable Medical Equipment (Walker) - , # 1 each, walker with wheels?? Oxycodone (oxyCODONE 5 mg oral tablet) - 1 tablet = 5 mg, By Mouth, Every 6 hours, # 12 tablet, 0 Refills, [address] [address] [phone]?? Laboratory Results Below is a partial list of the most recent Laboratory test results done prior to this discharge. You may have had other tests and procedures not included in this list. Please discuss all test resultswith your provider. Est Creatinine Clearance - 75.38 mL/min (05/01/2023) Blood Culture (04/29/2023) ???Blood Culture Results - Preliminary report???Blood Culture Specimen Source - BLOOD Blood Culture #2 (04/29/2023) ???Blood Cult 2 Results - Preliminary report???Blood Culture 2 Specimen Source - BLOOD Blood Culture 2 Results (04/29/2023) ???Blood Culture 2 Isolate 1 - Comment Blood Culture Result (04/29/2023) ???Blood Culture Isolate 1 - Comment BUN (05/02/2023) ???BUN - 5 mg/dL CBC w/ Differential (05/02/2023) ???WBC - 10.3 k/mm3???RBC - 3.44 m/mm3???Hgb - 9.4 Gm/dL???Hct - 29.3 %???MCV - 85.2 femtoliters???MCH - 27.3 pg???MCHC - 32.1 g/dL???Platelet Count - 281 k/mm3???RDW-SD - 47.5 femtoliters???MPV - 9.7 femtoliters???Nucleated RBC (Automated) - 0.0 #/100 WBC'S???Abs. NRBC - 0.0 k/mm3???Abs. Neut - 4.5 k/mm3???Abs. Lymph - 5.1 k/mm3???Abs. Brooks - 0.6 k/mm3???Abs. Eo - 0.1 k/mm3???Abs. Baso - 0.0 k/mm3???Neut % - 43.7 %???Lymph % - 49.2 %???Brooks % - 5.6 %???Eos % - 0.8 %???Baso % - 0.4 %???Imm Gran- 0.3 %???Abs. Imm Gran - 0.0 k/mm3 COVID-19 (2019 Novel Coronavirus) PCR (04/29/2023) ???COVID-19 PCR Specimen Source - NASAL???COVID-19 PCR Result - NEGATIVE Creatinine (05/02/2023) ???Creatinine-Blood - 0.7 mg/dL???Estimated GFR Creatinine - 105 ML/MIN/1.73 M2 Electrolytes (05/02/2023) ???Sodium - 139 mmol/L???Potassium - 3.9 mmol/L???Chloride - 104 mmol/L???Bicarbonate Level - 30 mmol/L???Anion Gap - 5 Ionized Calcium (05/02/2023) ???Calcium, Ionized pH Corrected - 1.22 mmol/L Lactate Level (04/29/2023) ???Lactate - 0.7 mmol/L Magnesium Level (05/02/2023) ???Magnesium - 1.7 mg/dL Phosphorus Level (05/02/2023) ???Phosphorus - 2.2 mg/dL PT (INR) (04/29/2023) ???INR - 1.1???Protime (PT) - 11.5 seconds PTT (04/29/2023) ???APTT - 29.7 seconds UA W/Reflex Culture & Renal (04/29/2023) ???Appear/Color, Urine - LIGHT YELLOW???Clarity - TURBID???Specific Johnston, Urine - 1.012???pH, Urine - 5.5???Albumin, Urine - NEGATIVE???Glucose, Urine - NEGATIVE???Ketones, Urine - NEGATIVE???Bilirubin, Urine - NEGATIVE???Hemoglobin, Urine - 2+???Nitrite, Urine - NEGATIVE???Leukocyte, Urine - 1+???Urobilinogen - NORMAL???WBC's, Urine - 1 /HPF???RBC's, Urine - 8 /HPF???Bacteria - SLIGHT???Squamous Epith - 10 /HPF? ?Transitional Epith - <1 /HPF? ?Mucus - SLIGHT? ?Budding Yeast - SLIGHT? ?Culture Indication - CULTURE NOT INDICATED URINARY MICROALBUMIN (04/29/2023) ???Malb/Creat Ratio - Unable to calculate???Urine Creat For Micro Alb - 36.1 mg/dL???Micro-Albumin - <12.0 mg/L Allergies (NKA means No Known Allergies) NKA Problems Active Problems??(2) Chronic psychosis?? Cigarette nicotine dependence?? Education Materials Below is the list of Educational Leaflet Providered with your Discharge Instructions. [employer] Ignite Patient Education - What Is Appendicitis??? [employer] Patient Education - Discharge Instructions: Caring for Your Niraj-Montes Drainage Tube?? Valuables and Belongings I fully understand and agree that [facility] accepts no responsibility for all my personal [...] to send valuables and belongings home. ?? No Valuables/Belongings: No valuables/belongings present Review of Valuable and Belonging List: With patient Date for Pt to Sign Valuables/Belongings: 04/29/23 12:43:00 ?? Other Discharge Information ? Case Management Discharge Plan?? Discharge Plan?? Discharge Agency Information?? 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 Thank you. ?? Additional Info for D/C Instructions: [facility] will contact you on your video phone to set up your first appointment. ??The video phone number that you supplied to us [phone] and that is the number that we shared with them with your permission. ?? Pulmonary Rehab Status?? Pulmonary Rehab Discharge Status?? [...] are strongly encouraged to quit. Please call [facility] Link at [phone] or [phone] [email or web address] ([phone]) or log in to [email or web address] for referrals to smoking cessation programs. ?? 484 Suicide & Crisis Lifeline is available 02/09 if you or someone you know needs to find a reason to keep living. By calling 693 you'll be connected to a skilled, trained counselor at a crisis center in your area. INPATIENT DISCHARGE INSTRUCTIONS SIGNATURE DARRELL RADHAMay Location:[facility] Registration Date and Time:04/29/2023 03:02 EDT Primary Care Physician: Sneha Li MD, Attending Physician: Patricia AVLIEZ, Hitesh, I RADHAMay, have received the above patient education materials/instructions and have verbalized understanding. If ambulance or transport services are being used I further acknowledge being given a choice of service. ?? If you need to contact me, please call me at this number: . Patient/Command And Control Specialist Name: Patient/Command And Control Specialist Signature: Relationship to Patient: Witness Name/Signature: Date: * Liliane Bryant: PERFORM Event Display: Patient Education Leaflets Authored Date: [id number] What Is Appendicitis? ?? 07320 What Is Appendicitis? Appendicitis is an inflammation or infection of the appendix. It can cause pain and other problems that start quickly and get worse.??Treatment should start right away to prevent serious problems. Your appendix The appendix is a small pouch about the size of your little finger. It hangs off the colon (large intestine). The purpose of the appendix is unclear. One theory is that the appendix may be a place tostore good bacteria in the gut. But if it??gets blocked, it may get infected. ?? Symptoms of appendicitis Symptoms tend to start quickly, often over 1 to 2 days. They can include: ??? Pain that starts in the center of your belly and moves to your lower right side ??? Worse pain and pressure on your side when you walk ??? Stomach upset (nausea) and vomiting ??? Low appetite ??? Fever ??? Tiredness ??? Either diarrhea or constipation ?? Treatment ? Antibiotic medicine. In some cases, your healthcare provider may advise treatment with antibiotics. This may be an option if the appendix has not ruptured and you don't have other problems or risks. Using antibiotics may help keep you from needing surgery. ??? Surgery.Removing the appendix withsurgery is common. This is called an appendectomy. This is often the best choice. It???s best to remove the appendix before it bursts. If the appendix bursts, it can cause severe health problems. Nothaving an appendix shouldn???t affect your long-term health. ? Last Reviewed Date: 2020 ?? [employer]. All rights reserved. This information is not intended as a substitute for professional medical care. Always follow your healthcare professional's instructions. ?? * Liliane Bryant: PERFORM Event Display: Patient Education Leaflets Authored Date: Discharge Instructions: Caring for Your Niraj-Montes Drainage Tube ?? [id number] Discharge Instructions: Caring for Your Niraj-Montes Drainage Tube Your healthcare provider discharged you with??a Niraj-Montes drainage tube. They commonly leave this drain within the abdomen and other cavities after surgery. It??helps drain and collect blood and body fluid after surgery. This can prevent swelling and reduces the risk for infection. The tube is held in place by a few stitches. It's covered with a bandage. Your healthcare provider will remove the drain when they determine you no longer need it. Home care ??? Don???t sleep on the same side as the tube. ??? Secure the tube and bag inside your clothing with a safety pin. This helps keep the tube from being pulled out. ??? Empty your drain at least twice a day. Empty it more often if the drain is full. Wash and dry your hands before emptying the drain. o Lift the opening on the drain. o Drain the fluid into a measuring cup. o Record the amount of fluid each time you empty the drain. Include the date and time it was emptied. Share this information with your healthcare provider on your next visit. o Squeeze the bulb with your hands until you hear air coming out of the bulb if your healthcare provider has instructed you to do so (sometimes the bulb is used as a reservoir without suction). Check with your healthcare provider about specific drain instructions. o Close the opening. ??? If you are to change the dressing around the tube, follow the directions your provider has given you. Some dressings may not need to be changed, but your provider will let you know. Here are some general steps to follow: o Wash your hands. o Remove the old bandage. o Wash your hands again. o Clean the skin around the incision and tube site as instructed. o Put a new bandage on the incision and tube site. Make the bandage large enough to cover the whole incision area. o Tape the bandage in place. ??? Talk with your healthcare provider about showering with the drain. You may need to keep the??bandage and tube site dry when you shower. Ask [facility] about the best way to do this. ?Stripping?? the tube helps keep blood clots from blocking the tube. Ask your healthcare team how often you should strip the tube. Stripping may not be needed, depending on where and why your healthcare provider placed the tube. It may even be dangerous in??some cases. o Hold the tubing where it leaves the skin, with one hand. This keeps it frompulling on the skin. o Pinch the tubing with the thumb and first finger of your other hand. o Slowly and firmly pull your thumb and first finger down the tubing. You may find it helpful to hold an alcohol swab between your fingers and the tube to lubricate the tubing. o If the pulling hurts or feels like the tube is coming out of the skin, stop. Begin again more gently. ?? Follow-up care Make a follow-up appointment as directed by our staff. ?? When to call your healthcare provider Call your healthcare provider right away if you have any of the following: ??? New or increased pain around the tube ??? Redness, swelling, or warmth around the incision or tube ??? Drainage that is foul-smelling ??? Vomiting ??? Fever of 100.4??F ( 38??C) or higher, or as directed by your provider??? Chills ??? Fluid leaking around the tube ??? Incision doesn't seem to be healing ??? Stitches become loose or the drain starts to come out ??? Tube falls out or breaks ??? Drainage that changes from light pink to dark red ??? Blood clots in the drainage bulb ??? A sudden increase or decrease inthe amount of drainage (over 30 mL) ?? Last Reviewed Date: 2021 ?? 7652-2643 [employer]. All rights reserved. This information is not intended as a substitute for professional medical care. Always follow your healthcare professional's instructions. ?? Patient Care team information Care Team Personnel Name: Sneha Li MD Position: S Outreach Member Role: PCP Address: Address: [address] [facility] [address] [place] [address]- [place] Name: Rebeka Jimenez RN Position: S RN Member Role: Primary Care Nurse Name: Jamaal Cooney RN Position: S RN Member Role: Primary Care Nurse Name: Kathleen Muniz RN Position: [facility] RN Member Role: Primary Care Nurse Care Team Related Persons Name: ROLA VEGA Name: SHA CORONADO Name: GAUTAM MONTIEL
--- OUTSIDE RECORDS SUMMARY | 2023-10-28 11:27 | XMS_ITS | Continuity of Care Document ---
Author Organization [employer] ter Address [address] [place] [id number]- Care Team Providers Care Software Configuration Specialist Name Role Phone Castro Sneha AVILEZ Primary Care Physician Encounter [facility] Date(s): 05/28/23 - 05/29/[address] [address] Encounter Diagnosis Appendicitis(Final) - 05/28/23 Appendicolith(Final) - 05/28/23 Pelvic abscess in female(Final) - 05/28/23 Discharge Disposition: A-Transfer VNA/Home Health Attending Physician: Marylu Ashton MD Admitting Physician: Marylu Ashton MD Referring Physician: Not on Staff, Referring [...] 06/02/23 13:44:00 EDT, 05/29/23 13:44:00 EDT, Tablet, [facility], Partial fill upon patient [...] 05/29/23 13:46:00 EDT, Route to Pharmacy Electronically, [facility], Partial fill upon patient request if [...] oxyCODONE 5 mg oral tablet 5 mg, By Mouth, Every 4 hours, PRN, for 3 days, # 12 tablet, Refills 0, Tot. Refills 0, Acute 06/01/23 13:46:00 EDT, Pain , Moderate, 05/29/23 13:46:00 EDT, Route to Pharmacy Electronically, [facility], Partial fill upon patient request... Start Date: 05/29/23 Stop Date: 06/01/23 Status: Ordered oxyCODONE 5 mg oral tablet 5 mg, Tablet, By Mouth, Every 4 hours, PRN for Pain , Moderate, Routine, 05/28/23 3:37:00 EDT Start Date: 05/28/23 Stop Date: 05/30/23 Status: Discontinued risperiDONE 1 mg oral tablet 0.5 mg, [...] 05/29/23 13:44:00 EDT, Route to Pharmacy Electronically, [facility], Partial fill upon patient [...] Exam Date Time Procedure Performing Provider Status 05/28/23 1:[address] Abd/Pelvis W/ IV Contrast Only Rigoberto Fabian (Verified) Notes: (CT Abd/Pelvis W/ IV Contrast Only) Reason For Exam: RLQ abdominal pain;Other: RESULT: CT Abd/Pelvis W/ IV Contrast Only CT Abd/Pelvis W/ IV Contrast Only Reason: Other:; RLQ abdominal pain; Clinical Question(s): Abscess; Order Comment: TECHNIQUE: Spiral CT through the abdomen and pelvis with IV contrast formatted in 3 planes. 75 cc of Omnipaque 300 was administered intravenously. This study was performed without oral contrast. Weight-based protocol using automatic tube modulation was used to optimize exposure parameters. CTDIvol Body: 13.20 mGy, DLP Body: 730 mGy*cm. COMPARISON: 05/07/2023. 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 Visualized Chest: Lung bases are clear. Small pleural effusions. The heart is normal in size. No pericardial effusion. Diaphragm: Normal. Liver: Normal. Gallbladder: Absent consistent with prior cholecystectomy. Bile ducts: No biliary ductal dilation. Spleen: Unchanged moderate splenomegaly, measuring 14.7 cm in AP dimension. Pancreas: Normal. Adrenal glands: Unchanged left adrenal 1 cm nodule. Unremarkable right adrenal gland. Kidneys and ureters: No hydronephrosis, stones, or suspicious masses. Bladder: Normal. Reproductive organs: Unremarkable. Stomach, small bowel, and large bowel: Right mesorectal 3.1 x 2.4 x 1.8 cm peripherally enhancing fluid collection, extending inferiorly within the intersphincteric space. It previously measured 3 x 2 x 2.1 cm. Otherwise, unremarkable small and large bowel. Appendix: Again seen is a 0.7 cm appendicolith, and mild distal dilatation of the appendiceal tip measuring up to 1.2 cm. Peritoneum and retroperitoneum: No ascites or pneumoperitoneum. No omental or mesenteric lesions. Lymph nodes: No enlarged lymph nodes. Blood vessels: Mild vascular calcifications but no aneurysm. No evidence of venous thrombosis. Abdominal and pelvic wall: Small fat-containing umbilical hernia. Prominent soft tissue within the right breast, better seen and evaluated on the prior mammogram 03/03/2023. Bilateral soft tissue granulomas within the gluteal region. Bones: No acute abnormality. IMPRESSION: Residual peripherally enhancing 3.1 cm fluid collection noted within the right mesorectum, extending into the intersphincteric space, suggestive of an abscess. Again seen is a 0.7 cm appendicolith with mild distal appendiceal tip dilatation up to 1.2 cm. No significant surrounding fat stranding. This is unlikely to represent appendicitis. Left adrenal 1 cm nodule, most likely benign. Consider 12 month follow-up with adrenal CT and biochemical correlation. I have personally reviewed the images and I agree with this report. WSN: [id number] Ordering Physician: Anoop Kaufman Dictated By: Gregory[Radiology] Rodney AVILEZ Dictated Date/Time: 05/28/23 7:34 am Reviewed By: Nguyễn Mace MD Signed By: Nguyễn Mace MD Signed Date/Time: 05/28/23 7:39 am Transcribed By: DELMIS Transcribed Date/Time: 05/28/23 3:32 am Vital Signs Most recent to oldest [Reference Range]: 1 2 3 Height 159 cm (05/29/23 6:36 AM) 159 cm (05/29/23 2:38 AM) 159 cm (05/28/23 8:19 PM) Weight 66 kg (05/28/23 5:00 PM) Oxygen Saturation [94-100 %] 93 % *L* (05/29/23 6:36 AM) 93 % *L* (05/29/23 2:38 AM) 93 % *L* (05/28/23 8:19 PM) Pulse Rate [55-90 bpm] 63 bpm (05/29/23 6:36 AM) 63 bpm (05/29/23 2:38 AM) 61 bpm (05/28/23 8:19 PM) Body Mass Index [18.5-24.99 kg/m2] 26.11 kg/m2 *H* (05/28/23 5:00 PM) Blood Pressure [90-138/55-84 mm Hg] 106/74mm Hg (05/29/23 6:36 AM) 93/52mm Hg (05/29/23 2:38 AM) 106/65mm Hg (05/28/23 8:19 PM) Respiratory Rate [16-30 br/min] 18 br/min (05/29/23 10:48 AM) 16 br/min (05/29/23 6:36 AM) 17 br/min (05/29/23 4:45 AM) Temperature [96.8-100.4 DegF] 97.3 DegF (05/29/23 6:36 AM) 97.8 DegF (05/29/23 2:38 AM) 97.5 DegF (05/28/23 8:19 PM) Liters per Minute 2 L/min (05/28/23 5:00 PM) 3 L/min (05/28/23 3:30 PM) 3 L/min (05/28/23 3:15 PM) Mode of Delivery (Oxygen) Room air (05/29/23 6:36 AM) Room air (05/29/23 2:38 AM) Room air (05/28/23 8:19 PM) Blood pressure sites Arm, right (05/29/23 6:36 AM) Arm, right (05/29/23 2:38 AM) Arm, right (05/28/23 8:19 PM) Temperature Route Oral (05/29/23 6:36 AM) Oral (05/29/23 2:38 AM) Oral (05/28/23 8:19 PM) Dry Weight 66 kg (05/28/23 5:00 PM) Weight Obtained Via Bed scale (05/28/23 5:00 PM) Dry Weight Obtained Via Bed scale (05/28/23 5:00 PM) Social History Social History Type Response Smoking Status Former smoker, quit more than 30 days ago; Other: Pt quit 3 months ago; entered on: 04/28/23 Sex Consult note * Earlene Parker MD: PERFORM, MODIFY, MODIFY, MODIFY Event Display: Consultation Note Authored Date: [id number] Patient: ??RADHA MAY ? Age:??52 Years?Sex:??Female?:??1970?? Chief Complaint Consultation Reason:??RLQ abdominal pain Consulting Provider:??Shae DO Consulted Surgeon:??Poli AVILEZ History of Present Illness May is a 52yo deaf female with PMH of schizophrenia and perforated appendicitis with 10cm abscessmanaged non-operatively with an IR drain (04/30/23, removed 05/08/23) who presents to the ED for recurrent RLQ pain with associated chills. She says that the pain feels exactly the same in the exact same place as when she had perforated appendicitis. She did fine after drain removal and had been tolerating regular diet up until the pain started yesterday. It came on gradually and has continued toworsen, now it is terrible. She has had diminished appetite since the pain began. She has also had 2-3 days of constipation despite still taking her Colace, and she has only been able to pass a fewsmall henri at a time, she does continue to pass gas. She has noticed a few drops of blood with the henri however she also has hemorrhoids so she says this is not abnormal for her. She also has some sensation of urine being stuck and not able to fully empty for the last 1 day. She has had chills but no fevers, nausea, or vomiting. Review of Systems 12-point review of systems was reviewed and is negative except as per HPI.?? Physical Exam Vitals & Measurements T:??98.4?F?? HR:??101??(Peripheral)?? RR:??18?? BP:??127/77?? SpO2:??96%?? General: no acute distress, awake, alert HEENT: NCAT, EOM grossly intact, trachea midline CV: RRR Pulm: nonlabored breathing on room air Abd: soft, mild to moderate RLQ ttp with +Rovsing's, nondistended, no rebound or guarding, well-healed lap incisions, well-healed prior drain site Ext: moving all extremities spontaneously, no lower extremity edema Skin: no rash on limited exam, warm and well-perfused Neuro: answers questions appropriately Psych: appropriate Assessment/Plan Yanna is a 52yo deaf female with PMH of schizophrenia and perforated appendicitis with 10cm abscessmanaged non-operatively with an IR drain (04/30/23, removed 05/08/23) who presents to the ED for recurrent RLQ pain with associated chills. Labs, history, and imaging are concerning for recurrent appendicitis without evidence of perforation, though the CT does show stable appearance of a residual 3cmabscess in the right perirectal region which seems asymptomatic at this time. Given that she has recurred in such a short time period and she has an appendicolith, we will plan to proceed to the OR for laparoscopic, possible open, appendectomy when OR schedule allows. ?? Plan Admit to??Emergency General??Surgery OR for laparoscopic, possible open, appendectomy - booked, consented UA for sensation of urinary retention NPO IVF resuscitation IV CTX/Flagyl Multimodal pain control Antiemetics as needed Home medications as indicated Daily labs; replete PRN DVT PPx: Lovenox OOB/ambulate PCP f/u: right breast/axilla mass ?? Please page Emergency General Surgery with any questions or concerns [id number].?? Discussed with attending physician Dr. Ashton Problem List/Past Medical History Deaf Hemorrhoids Schizophrenia Perforated appendicitis Procedure/Surgical History ERCP & lap yoni (08/2022) IR drain for perforated appendicitis (04/30/23) Home Medications Docusate: 100 mg = 1 capsule, By Mouth, 2 times a day, PRN (for constipation) Durable Medical Equipment: See Instructions, walker with wheels Durable Medical Equipment: See Instructions, walker with wheels Lorazepam: 0.5 mg = 1 tablet, By Mouth, Daily at bedtime Omeprazole: 20 mg = 1 tablet, By Mouth, Daily, PRN (Dyspepsia) Polyethylene Glycol 3350: 17 Gm, By Mouth, Daily, PRN (Constipation) Risperidone: 1 mg = 1 tablet, By Mouth, Daily in AM Risperidone: 0.5 mg = 0.5 tablet, By Mouth, Daily, @Noon Risperidone: 4 mg = 1 tablet, By Mouth, Daily at bedtime Allergies NKA Social History Denies alcohol use Denies recreational drug use Denies tobacco use Family History No family history of bleeding or clotting disorders Radiology CT A/P wet read: appendicolith with appendiceal tip dilation to 1.2cm, no fat stranding; stable 3cmfluid collection right perirectal space Lab Results Labs Last 24 Hours BLOOD COUNT & DIFF ? Event Name?? Event Result?? Date/Time?? WBC 13.4 k/mm3??High 05/28/23 00:32:00 RBC 4.61 m/mm3 05/28/23 00:32:00 Hgb 12 Gm/dL 05/28/23 00:32:00 Hct 37.8 % 05/28/23 00:32:00 MCV 82 femtoliters 05/28/23 00:32:00 MCH 26 pg??Low 05/28/23 00:32:00 MCHC 31.7 g/dL??Low 05/28/23 00:32:00 Platelet Count 264 k/mm3 05/28/23 00:32:00 MPV 9.7 femtoliters 05/28/23 00:32:00 Nucleated RBC (Automated) 0 #/100 WBC'S 05/28/23 00:32:00 ? CHEM GENERAL ? Event Name?? Event Result?? Date/Time?? Sodium 139 mmol/L 05/28/23 00:32:00 Chloride 101 mmol/L 05/28/23 00:32:00 Bicarbonate Level 27 mmol/L 05/28/23 00:32:00 Anion Gap 11 05/28/23 00:32:00 Glucose Level 117 mg/dL??High 05/28/23 00:32:00 BUN 9 mg/dL 05/28/23 00:32:00 Creatinine-Blood 0.8 mg/dL 05/28/23 00:32:00 Calcium, Ionized pH Corrected 1.26 mmol/L 05/28/23 00:32:00 Magnesium 1.9 mg/dL 05/28/23 00:32:00 Alkaline Phosphatase 118 units/L??High 05/28/23 00:32:00 AST (SGOT) 12 units/L 05/28/23 00:32:00 ALT (SGPT) 10 units/L 05/28/23 00:32:00 Bilirubin, Total 0.2 mg/dL 05/28/23 00:32:00 ? Note * Suzan Archer RN: PERFORM Event Display: Discharge/Transfer Note Hospital Authored Date: [id number] Nursing Discharge Note Entered On: 05/29/2023 14:18 EDT Performed On: 05/29/2023 14:18 EDT by Suzan Archer RN Nursing Discharge Note 2 Discharge Time : 05/29/2023 15:40 EDT Suzan Archer RN - 05/29/2023 15:41 EDT Discharge Level of Care at Discharge : Home/Senior Living/Foster Care Patient Left Unit Via : Wheelchair Patient Accompanied Off Unit with : Responsible adult DC Instructions Provided & Signed by Pt : Yes Patient Understands D/C Instructions : Yes Verbalized Understanding of D/C Plan By : Patient Patient Instructions Discharge Signed : Yes Did Pt have Specialty Bed or Wound Vac : No Suzan Archer RN - 05/29/2023 14:18 EDT * Hai ESTEVEZ, Alisia Rivera: PERFORM, MODIFY Event Display: Discharge/Transfer Note Hospital Authored Date: Patient: ??May ? Age:??52 Years?Sex:??Female?:??1970?? Admit Date Admission Date: 05/28/2023 Discharge Date 05/29/2023 Discharge Diagnoses Abdominal pain, 05/28/2023 Hospital Course 52yo deaf woman??with PMH of schizophrenia and perforated appendicitis with 10cm abscess managed non-operatively with an IR drain (04/30/23, removed 05/08/23) who presents to the ED for recurrent RLQ pain with associated chills. Labs, history, and imaging are concerning for recurrent appendicitis without evidence of perforation, though the CT does show stable appearance of a residual 3cm abscess inthe right perirectal region which seems asymptomatic at this time. Given that she has recurred in such a short time period and she has an appendicolith, she was taken to the OR on 05/27 for lap appendectomy with drain placement. She tolerated procedure well without any complications. ?? The patient??was cleared for discharge on??05/29/2023. with VNA services for SHILPA drain managemnt. At that time, her pain was controlled and she was tolerating a diet, voiding, and ambulating.?Shewas given prescriptions acetaminophen 650 mg Q 4 hours PRN, oxycodone 5 mg Q 4 hours PRN and BID docusate for constipation prevention while on narcotic therapy. She was instructed to follow-up as an o utpatient on June 05, 2023 at 1:[address] Ashton for evaluation of drain removal and post operative follow up. Objective/Physical Exam on Day of Discharge Vitals & Measurements T:??97.3?F?? HR:??63??(Peripheral)?? RR:??18?? BP:??106/74?? SpO2:??93%?? HT:??159??cm?? WT:??66??kg?? BMI:??26.11?? General: Speaking in full sentences and in no apparent distress HEENT: Normocephalic and atraumatic Eyes: EOM, no drainage, no redness Ears: Symmetrical, no drainage Nose: Nares patent, no drainage Neck: Soft and supple, trachea midline Resp: bilateral chest rise Cardiac: RRR, no m/g/r,?? Abdomen/ GI: soft nontender, active bowel sounds all 4 quadrants. SHILPA drain in place with minimal ssdrainage. port site dressings CD+I Extremities: No edema Neurologic: alert and oriented?3. Speech is fluent. No facial droop. Intact cranial nerves II-XII; Muscle strength 5/5 in all extremities. Intact gross sensation Psychiatric: Appropriate affect and mood. Able to engage in conversation appropriately Skin: warm pale and dry?? Future Appointments 2023 1:20 PM EDT ?? With: Marylu Ashton MD Where: [facility] [address] [place] [address]- Status: Pending Friday 11:30 AM EDT ?? With: Sergei ESTEVEZ, Belle Amaro Where: [facility] [address] [facility] [address] [place] [address]- Status: Pending Patient Discharge Condition imporved Discharge Disposition home with vna Home Health Face to Face *Denotes mandatory garrido ?? *I certify that this patient is under my care and that I or an allowed non- physician working with me had a face to face encounter with the patient on this date:??05/29/2023 13:54 ?? *The encounter with the patient was in whole, or in part, for the following medical condition, which is the primary diagnosis(es) for home health care:??Appendicitis (K37) Appendicolith (K38.9) Pelvic abscess in female (N73.9) ?? *Select the indications for the discipline/s that are being arranged for this patient. Nursing (select all that apply): [_] None [xx_] Medication management (reconciliation, teaching)?? [xx_] Chronic disease management?? [_] Wound care and treatment?? [xx_] Home safety evaluation [_] Administer SQ/IM/IV medications?? [_] Cath care?? [xx_] Drain care-shilpa drain management, teaching [_] Trach or GT care?? Other _ Occupation Therapy (select all that apply): [_] None [_] ADL Management [_] Fall prevention training [_] Energy conservation [_] Cognitive training Other _ Physical Therapy (select all that apply): [_] None [_] Functional mobility training [_] Home exercise program to strengthen [_] Increase ROM?? [_] Falls prevention training [_] Home maintenance program for chronic disease Other _ Speech Therapy (select all that apply): [_] None [_] Swallow evaluation and training [_] Speech and language training [_] Cognitive training to process, organize, and/or recall information Other _ ? *Homebound due to (select all that apply): [xx_] Inability to leave home without assistance/supervision [_] Inability to ambulate without assistance [xx_] Pain [_] Decreased strength and endurance [_] Unsteady gait [_] Severe SOB and fatigue [_] Impaired transfers [_] Inability to negotiate stairs [_] Limited weight bearing [_] Mental status change? *Physician Signature:??Alisia Valles THERMOPLASTIC TECHNICIAN ?? *By signing this, I certify that I have personally evaluated the patient and agree with the findings and recommendations as documented above. ?? 35 minutes for discharge completion Procedures Performed This Visit Procedure Date: 05/28/2023.?? Preoperative Diagnosis: Previous Perforated appendicitis with new early appendicitis.?? Postoperative Diagnosis: Perforated Appendicitis with Abcess.?? Procedure Performed: Laparoscopic Appendectomy?? Surgeon: Hitesh Gomez MD.?? Anesthesia Type: General.?? Inpatient Medications Medications (12) Active SCHEDULED: (8) Acetaminophen 325 mg Tablet (Tylenol 325 mg oral tablet) ??650 mg, By Mouth, Every 4 hours Amoxicillin 875 mg/Clavulanate 125 mg Tablet (Augmentin 875 Tablet) ??1 tablet, By Mouth, 2 times aday Docusate Sodium 100 mg Capsule (Colace sodium 100 mg oral capsule) ??100 mg 1 capsule, By Mouth, 2 times a day Enoxaparin 40 mg Inj (Enoxaparin Inj) ??40 mg 0.4 mL, Subcutaneous Injection, Daily Pantoprazole 20 mg EC Tablet (pantoprazole 20 mg oral delayed release tablet) ??20 mg, By Mouth, Daily Risperidone 0.25 mg Tablet (risperiDONE 1 mg oral tablet) ??0.5 mg, By Mouth, Every 24 hours Risperidone 1 mg Tablet (risperiDONE 1 mg oral tablet) ??1 mg, By Mouth, Daily in AM Risperidone 1 mg Tablet (risperiDONE 1 mg oral tablet) ??4 mg, By Mouth, Daily at bedtime CONTINUOUS: (1) Lactated Ringers (1000 mL) Cont IV 1,000 mL (LR 1,000 mL) ??1,000 mL, IV Infusion, 100 mL/hr PRN: (3) Lorazepam 0.5 mg Tablet (Ativan 0.5 mg oral tablet) ??0.5 mg, By Mouth, 2 times a day Ondansetron 2mg/mL Inj (2mL Vial) (Ondansetron Inj) ??4 mg, IV Push, Every 6 hours OxyCODONE 5 mg IR Tablet (oxyCODONE 5 mg oral tablet) ??5 mg, By Mouth, Every 4 hours Discharge Medications Acetaminophen (Tylenol 325 mg oral tablet)?650?Milligram?By Mouth?Every 4 hours?for 14?Days Amoxicillin-Clavulanate (amoxicillin-clavulanate 875 mg-125 mg oral tablet)?1?tab(s)?By Mouth?2 times a day?for 4?Days Docusate (Colace sodium 100 mg oral capsule)?100?Milligram?1?capsule?By Mouth?2 times a day?as needed?for constipation Durable Medical Equipment (Walker)?See Instructions?walker with wheels Durable Medical Equipment (Walker)?See Instructions?walker with wheels Lorazepam (Ativan 0.5 mg oral tablet)?1?tab(s)?0.5?Milligram?By Mouth?Daily at bedtime Omeprazole (omeprazole 20 mg oral delayed release tablet)?1?tab(s)?20?Milligram?By Mouth?Daily?as needed?Dyspepsia Oxycodone (oxyCODONE 5 mg oral tablet)?5?Milligram?By Mouth?Every 4 hours?as needed?for 3?Days?Pain , Moderate Polyethylene Glycol 3350 (MiraLax oral powder for reconstitution)?17?gram?By Mouth?Daily?as needed?Constipation Risperidone (risperiDONE 1 mg oral tablet)?1?Milligram?1?tablet?By Mouth?Daily Lilliana Risperidone (risperiDONE 1 mg oral tablet)?0.5?Milligram?0.5?tablet?By Mouth?Daily?@Noon Risperidone (risperiDONE 4 mg oral tablet)?1?tab(s)?4?Milligram?By Mouth?Daily atbedtime Labs Last 24 Hours BLOOD COUNT & DIFF ? Event Name?? Event Result?? Date/Time?? WBC 12.5 k/mm3??High 05/29/23 00:27:00 RBC 4.19 m/mm3??Low 05/29/23 00:27:00 Hgb 10.9 Gm/dL??Low 05/29/23 00:27:00 Hct 34.7 %??Low 05/29/23 00:27:00 MCV 82.8 femtoliters 05/29/23 00:27:00 MCH 26 pg??Low 05/29/23 00:27:00 MCHC 31.4 g/dL??Low 05/29/23 00:27:00 Platelet Count 267 k/mm3 05/29/23 00:27:00 MPV 9.9 femtoliters 05/29/23 00:27:00 Nucleated RBC (Automated) 0 #/100 WBC'S 05/29/23 00:27:00 ? CHEM GENERAL ? Event Name?? Event Result?? Date/Time?? Sodium 137 mmol/L 05/29/23 00:27:00 Chloride 102 mmol/L 05/29/23 00:27:00 Bicarbonate Level 25 mmol/L 05/29/23 00:27:00 Anion Gap 10 05/29/23 00:27:00 BUN 7 mg/dL 05/29/23 00:27:00 Creatinine-Blood 0.9 mg/dL 05/29/23 00:27:00 Calcium, Ionized pH Corrected 1.25 mmol/L 05/29/23 00:27:00 Phosphorus 4.1 mg/dL 05/29/23 00:27:00 Magnesium 1.9 mg/dL 05/29/23 00:27:00 ? Patient Education Titles [employer] Patient Education - After Laparoscopic Appendectomy (Appendix Removal)?? [employer] Patient Education - How to Empty Your Drain After Surgery?? [employer] Patient Education - Discharge Instructions: Caring for Your Niraj-Darden Drainage Tube?? [employer] Patient Education - Oxycodone Oral Tablet?? [employer] Patient Education - Docusate Oral Capsule?? Follow-Up Appointments Added Follow Up ?Time Frame ?Comments Guillermo AVILEZ , Sneha Arceo?Within two weeks?please call to arrange a post hospital follow up Patient Instructions AFTER YOUR SURGERY? [...] have to come to the office to sisal picker a paper prescription.??DO NOT call the [...] your problem truly requires emergency attention, go to??[facility] Emergency Room??or the nearest emergency room. * Hitesh Gomez MD: PERFORM Event Display: Discharge/Transfer Note Hospital Authored Date: I have seen and examined the patient, the above note summarizes my encounter on the recorded date * Urvashi Levy RN: PERFORM, SIGN, VERIFY Event Display: Case Management Discharge Plan Authored Date: Patient: RADHAMay Age: 52 years Sex: Female : 1970 Associated Diagnoses: None Author: Urvashi Levy RN Discharge Plan Case Management Discharge Plan : Case Management Discharge Plan Data 05/29/2023 15:50 EDT Discharge Level of Care at Discharge Homehealth/VNA Discharge VNA/Hospice/Home Care [facility] [phone] Agency Nuclear Physician #1 intake Service Categories #1 Assisted Service Comments #1 the nurse from the [facility] will call to set up atime to see you at home the day after discharge 05/29/2023 14:18 EDT Discharge Level of Care at Discharge Home/Senior Living/Foster Care * Gianni BOWER, Suzan Garcia: PERFORM Event Display: Patient Education/Instruction Authored Date: [id number] Inpatient Adult Discharge Instructions. [address] [address] Name: YANNA GARCIA : 1970?? Visit: 05/28/2023 03:06?? Current Date: 05/29/2023 14:18 ?? Account: [id number]?? Inpatient Adult Discharge Instructions We would like [...] and their families. Surveys are administered by [employer] ?? If further treatment with your primary care physician or another doctor is recommended, it is important for you to keep the appointment. Call your primary care physician or return to the Emergency Department immediately if your condition worsens, fails to improve, or new symptoms develop. If you need to find a doctor, you can call [facility] for a referral at [phone] or toll free at [phone] or log in to [email or web address].. ?? [facility], in keeping with [facility] guidance, no longer requires face masks for [...] a health care genaro of your choosing. [employer] is a website that allows you to securely view your medical information including your hospital discharge summary, office visit summaries, medications and follow-up visits. You can also request appointments, renew medications, and request access to your medical information using a health care genaro of your choosing, or just ask a question. You can enroll at [email or web address] or register during your next office visit. You have been discharged from [facility], Patient Care Unit: S3??. If you have any questions regarding these instructions, including results of studies pending, afteryou leave, please call us and we will be happy to assist you 02/09. [facility] Your Care Team Attending Physician Marylu Ashton MD?? Consulting Providers Marylu Ashton MD?? Discharging Providers Hai ESTEVEZ, Alisia Rivera Reason for Your Visit pt coming from home here 1 month ago perf appy, not removed, was sent home on abx, c/o abd pain x 24 hour, no vomiting.?? Your Diagnosis Abdominal pain Tests Performed Below is a partial list of the tests performed during your hospitalization. You may have had other tests and procedures not included in this list. Please discuss all test results with your provider. Calcium Ionized COMPLETE URINALYSIS Comprehensive Metabolic Panel HOLD URINE CULTURE Magnesium Level PERIPHERAL BLOOD SMEAR REVIEW URINE CT Abd/Pelvis W/ IV Contrast Only BUN?? CBC w/ Differential?? Creatinine?? Electrolytes (Lytes)?? Ionized Calcium?? Magnesium Level?? Pathology Tissue Request ()?? Phosphorus Level?? Urinalysis w/hold for Urine Culture?? Primary Care Provider Guillermo AVILEZ , Sneha Arceo? Advance Directive Health Care Proxy on File No Discharge Vitals Temperature: 97.3 DegF Height: 159 cm Pulse Rate: 63 bpm Weight: 66 kg Respiratory Rate: 18 br/min Body Mass Index:??26.11 kg/m2??High Systolic Blood Pressure: 106 mm Hg Body surface area: 1.71 Diastolic Blood Pressure: 74 mm Hg ?? Oxygen Saturation:??93 %??Low ?? Studies Pending All studies ordered during this hospital stay have been completed unless listed below. Please discuss all pending results with your provider listed above in these instructions. ?? BUN?? CBC w/ Differential?? Creatinine?? Electrolytes (Lytes)?? Ionized Calcium?? Magnesium Level?? Pathology Tissue Request ()?? Phosphorus Level?? Urinalysis w/hold for Urine Culture?? What to do next Instructions From Your [...] have to come to the office to sisal picker a paper prescription.??DO NOT call the [...] your problem truly requires emergency attention, go to??[facility] Emergency Room??or the nearest emergency room. ?? Orders? 05/29/23 14:00:00 EDT?? Scheduled Follow-Up Appointments 2023 1:20 PM EDT ?? With: Marylu Ashton MD Where: [facility] [address] [place] [address]- Status: Pending Friday 11:30 AM EDT ?? With: Sergei ESTEVEZ, Belle Amaro Where: [facility] [address] [facility] 2nd [place] [address]- Status: Pending You Need to Schedule the Following Appointments Follow Up with??Guillermo AVILEZ , Sneha Arceo When:??Within Within two weeks Why: please call to arrange a post hospital follow up Where: [address] [place] [address] [address] [place] [address]- Discharge Medications May :1970 Visit Date:05/28/2023 Medications: Please continue your medications until treatment is completed or stopped by your provider. Medications not listed below should be discontinued. Discuss any questions related to medications with your provider. What How Much When Instructions Next Dose New Acetaminophen (Tylenol 325 mg oral tablet) 650 Milligram Oral Every 4 hours Duration: 14 Days Pickup at [place] [address] 05/28 today at 4pm New Amoxicillin-Clavulanate (amoxicillin-clavulanate 875 mg-125 mg oral tablet) 1 tab(s) Oral Twice a day Duration: 4 Days Pickup at [place] [address] 05/28 tonight New Oxycodone (oxyCODONE 5 mg oral tablet) 5 Milligram Oral Every 4 hours as needed for Pain , Moderate Duration: 3 Days Pickup at [facility] as needed, next dose at 4pm Unchanged Docusate (Colace sodium 100 mg oral capsule) 1 capsule Oral Twice a day as needed for for constipation Pickup at [facility] 3 as needed Unchanged Lorazepam (Ativan 0.5 mg oral tablet) 1 tab(s) Oral Daily at Bedtime 05/28 tonight Unchanged Omeprazole (omeprazole 20 mg oral delayed release tablet) 1 tab(s) Oral Daily as needed for Dyspepsia as needed Unchanged Polyethylene Glycol 3350 (MiraLax oral powder for reconstitution) 17 gram Oral Daily as needed for Constipation as needed Unchanged Risperidone (risperiDONE 1 mg oral tablet) 0.5 tab(s) Oral Daily @Noon ?? 05/29 tomorrow at 12pm Unchanged Risperidone (risperiDONE 1 mg oral tablet) 1 tab(s) Oral Daily in the morning 05/29 tomorrow morning Unchanged Risperidone (risperiDONE 4 mg oral tablet) 1 tab(s) Oral Daily at Bedtime 05/28 tonight Pharmacy Information [place] [address]: [address] [place] [address] [phone] Prescription Given During Visit Acetaminophen (Tylenol 325 mg oral tablet) - 650 mg, By Mouth, Every 4 hours, # 84 tablet, 0 Refills, [address] [phone]?? Amoxicillin-Clavulanate (amoxicillin-clavulanate 875 mg-125 mg oral tablet) - 1 tablet, By Mouth, 2times a day, # 7 tablet, 0 Refills, [address] [phone]?? Docusate (Colace sodium 100 mg oral capsule) - 1 capsule = 100 mg, By Mouth, 2 times a day, # 100 capsule, 0 Refills, [place] [address], [address] [place] [phone]?? Oxycodone (oxyCODONE 5 mg oral tablet) - 5 mg, By Mouth, Every 4 hours, # 12 tablet, 0 Refills, [place] [address], [address] [place] [phone]?? Laboratory Results Below is a partial list of the most recent Laboratory test results done prior to this discharge. You may have had other tests and procedures not included in this list. Please discuss all test resultswith your provider. Est Creatinine Clearance - 60.77 mL/min (05/29/2023) Calcium Ionized (05/28/2023) ???Calcium, Ionized pH Corrected - 1.26 mmol/L COMPLETE URINALYSIS (05/28/2023) ? ?Appear/Color, Urine - LIGHT YELLOW? ?Specific [place], Urine - >1.050? ?pH, Urine - 6.5? ?Albumin, Urine - TRACE???Glucose, Urine - NEGATIVE???Ketones, Urine - NEGATIVE???Bilirubin, Urine - NEGATIVE???Hemoglobin, Urine - 1+???Nitrite, Urine - NEGATIVE???Leukocyte, Urine - 1+???Urobilinogen - NORMAL???WBC's, Urine - 4 /HPF???RBC's, Urine - 2 /HPF???Bacteria - SLIGHT???Squamous Epith - 11 /HPF Comprehensive Metabolic Panel (05/28/2023) ???Sodium - 139 mmol/L???Potassium - 4.1 mmol/L???Chloride - 101 mmol/L???Bicarbonate Level - 27 mmol/L???Anion Gap - 11???Glucose Level - 117 mg/dL???BUN - 9 mg/dL???Creatinine-Blood - 0.8 mg/dL???Estimated GFR Creatinine - 85 ML/MIN/1.73 M2???Calcium - 9.4 mg/dL???Protein, Total - 7.4 Gm/dL???Albumin - 4.2 Gm/dL???AG Ratio - 1.3???Alkaline Phosphatase - 118 units/L???AST (SGOT) - 12 units/L???ALT (SGPT) - 10 units/L???Bilirubin, Total - 0.2 mg/dL HOLD URINE CULTURE (05/28/2023) ???Hold Urine Culture - Testing available 48 hours from time of collection. Magnesium Level (05/29/2023) ???Magnesium - 1.9 mg/dL PERIPHERAL BLOOD SMEAR REVIEW (05/28/2023) ???Peripheral Blood Smear Review Interp. - Reviewed by pathologist. URINE (05/28/2023) ???Urine, - NEGATIVE Allergies (NKA means No Known Allergies) NKA Problems Active Problems??(2) Chronic psychosis?? Cigarette nicotine dependence?? Education Materials Below is the list of Educational Leaflet Providered with your Discharge Instructions. WebMD Ignite Patient Education - After Laparoscopic Appendectomy (Appendix Removal)?? WebMD Ignite Patient Education - How to Empty Your Drain After Surgery?? Web[employer] Ignite Patient Education - Discharge Instructions: Caring for Your Niraj-Darden Drainage Tube?? WebMD Ignite Patient Education - Oxycodone Oral Tablet?? WebMD Ignite Patient Education - Docusate Oral Capsule?? Valuables and Belongings I fully understand and agree that [facility] accepts no responsibility for all my personal [...] home. ?? No Valuables/Belongings: No valuables/belongings present Date for Pt to Sign Valuables/Belongings: 05/28/23 07:31:00 ?? Other Discharge Information ? Case Management Discharge Plan?? Discharge Plan?? Discharge Level of Care at Discharge: Home/Senior Living/Foster Care ?? Pulmonary Rehab Status?? Pulmonary Rehab Discharge [...] are strongly encouraged to quit. Please call [facility] at [phone] or [phone] ([phone]) or log in to [email or web address] for referrals to smoking cessation programs. ?? 814 Suicide & Crisis Lifeline is available 02/09 if you or someone you know needs to find a reason to keep living. By calling 251 you'll be connected to a skilled, trained counselor at a crisis center in your area. INPATIENT DISCHARGE INSTRUCTIONS SIGNATURE DARRELL RADHAMay Location:[facility] Registration Date and Time:05/28/2023 03:06 EDT Primary Care Physician: Sneha Li MD, Attending Physician: Marylu Ashton MD, I RADHAMay, have received the above patient education materials/instructions and have verbalized understanding. If ambulance or transport services are being used I further acknowledge being given a choice of service. ?? If you need to contact me, please call me at this number: . Patient/Customer Care Coordinator Name: Patient/Customer Care Coordinator Signature: Relationship to Patient: Witness Name/Signature: Date: * Suzan Archer RN: PERFORM Event Display: Patient Education Leaflets Authored Date: [id number] Amoxicillin/Clavulanate Oral Tablet ?? [id number] Amoxicillin/Clavulanate Oral Tablet Brands: Augmentin Uses For treating bacterial infection. ?? Instructions Take the medicine with food. Keep the medicine at room temperature. Avoid heat and direct light. It is important that you keep taking each dose of this medicine on time even if you are feeling well. If you forget to take a dose on time, take it as soon as you remember. If it is almost time for thenext dose, do not take the missed dose. Return to your normal schedule. Do not take 2 doses at one time. Tell your doctor and pharmacist about all your medicines. Include prescription and wfiz-bjn-wmfcxfugbvbxhdqu, vitamins, and herbal medicines. Keep using this medicine for the full number of days that it is prescribed. Do not stop the medicine even if you start to feel better. If you have diabetes and use urine glucose tests, this medicine may cause incorrect results. Pleasecheck with your doctor before making any changes to your diabetes treatment plan. ?? Cautions Tell your doctor and pharmacist if you ever had an allergic reaction to a medicine. Do not use the medication any more than instructed. Please tell your doctor if you have moderate to severe diarrhea while on this medicine. Do not treat the diarrhea with jhah-rra-xgzijxb diarrhea medicine. Tell the doctor or pharmacist if you are , planning to be , or . Do not start or stop any other medicines without first speaking to your doctor or pharmacist. Do not share this medicine with anyone who has not been prescribed this medicine. ?? Side Effects The following is a list of some common side effects from this medicine. Please speak with your doctor about what you should do if you experience these or other side effects. ??? diarrhea ??? nausea and vomiting ??? stomach upset or abdominal pain Call your doctor or get medical help right away if you notice any of these more serious side effects: ??? severe or persistent abdominal pain ??? severe, watery or bloody diarrhea ??? signs of liver damage (such as yellowing of eye or skin, dark urine, or unusual tiredness) ??? red, burning, or itchyskin ??? yeast infection of mouth ??? vaginal itching or discharge A few people may have an allergic reaction to this medicine. Symptoms can include difficulty breathing, skin rash, itching, swelling, or severe dizziness. If you notice any of these symptoms, seek medical help quickly. ?? Extra Please speak with your doctor, nurse, or pharmacist if you have any questions about this medicine. ?? [email or web address] IMPORTANT NOTE: This document tells you briefly how to take your medicine, but it does not tell youall there is to know about it. Your doctor or pharmacist may give you other documents about your medicine. Please talk to them if you have any questions. Always follow their advice. There is a more complete description of this medicine available in Ghanaian. Scan this code on your smartphone or tablet or use the web address below. You can also ask your pharmacist for a printout. If you have any questions, please ask your pharmacist. The display and use of this drug information is subject to Terms of Use. Copyright(c) 2022 [employer]. ?? [employer]. All rights reserved. This information is not intended as a substitute for professional medical care. Always follow your healthcare professional's instructions. ?? * Hai ESTEVEZ, Alisia Rivera: PERFORM Event Display: Patient Education Leaflets Authored Date: [id number] After Laparoscopic Appendectomy (Appendix Removal) ?? 82914 After Laparoscopic Appendectomy (Appendix Removal) You have had a surgery to remove your appendix. The appendix is a narrow pouch attached to the lower right part of your large intestine. During your surgery, the doctor made 2 to 4 small cuts (incisions). One was near your belly button. The others were on other parts of your belly. Through one incision, the doctor inserted a thin tube with a camera attached (laparoscope). Other surgery tools wereused in the other incisions. While you recover you may??have pain in your shoulder and chest for up to??48??hours after surgery.This is common. It is caused by carbon dioxide gas used during the surgery. It will go away.?? Home care ??? Keep your incisions clean and dry. ??? Don't pull off the thin strips of tape covering your incision. They should fall off on their own in a week or so. ??? Wear loose-fitting clothes. This will help cause less irritation around your incisions. ??? You can shower as normal. Gently wash around your incisions with soap and water. Don???t take a bath until your incisions are fully healed and your healthcare provider says it's OK. ??? Don???t drive until you have stopped taking prescription pain medicine. ??? Don???t lift anything heavier than??10??pounds until your??healthcare provider??says it???s OK. ??? Limit sports and strenuous activities for??1??or??2??weeks. ??? Resume light activities around your home as soon as you feel comfortable. ?? What to eat Eat a bland, low-fat diet (listed below) at first. If that goes down well, you can gradually begin a regular diet. ??? Well-cooked soft cereals ??? Mashed potatoes ??? Plain toast or bread ??? Plain crackers ??? Plain pasta ??? Rice ??? Cottage cheese ??? Pudding ??? Low- fat yogurt ??? Low-fat milk ??? Ripe bananas Drink 6 to 8 glasses of water a day, unless directed otherwise. If you are constipated, take a fiber laxative or a stool softener. Pain medicines can cause constipation. Try not to strain to move your bowels. ?? When to call your??healthcare provider?? Call your??healthcare provider??right away if you have any of the following: ??? Swelling, pain, fluid, or redness in the incision that gets worse ??? Fever??of??100.4??F (38??C) or higher, or as directed by your healthcare provider ??? Belly (abdominal) pain that gets worse ??? Severe diarrhea, blo ating, or constipation ??? Nausea or vomiting ??? Trouble breathing or shortness of breath ??? Leg swelling ?? Last Reviewed Date: 2021 ?? [employer]. All rights reserved. This information is not intended as a substitute for professional medical care. Always follow your healthcare professional's instructions. ?? * Hai ESTEVEZ, Alisia Rivera: PERFORM Event Display: Patient Education Leaflets Authored Date: [id number] How to Empty Your Drain After Surgery ?? 94303 How to Empty Your Drain After Surgery Cxex-vp-Fbyn: ?? Last Reviewed Date: 2021 ?? [employer]. All rights reserved. This information is not intended as a substitute for professional medical care. Always follow your healthcare professional's instructions. ?? Patient Care team information Care Team Personnel Name: Sneha Li MD Position: [facility] Outreach Member Role: PCP Address: Address: [address] [place] [address] [place] [address]- Name: Rebeka Jimenez RN Position: S RN Member Role: Primary Care Nurse Name: Jamaal Cooney RN Position: S RN Member Role: Primary Care Nurse Name: Cathleen Hudson RN Position: S RN Member Role: Primary Care Nurse Name: Kathleen Muniz RN Position: S RN Member Role: Primary Care Nurse Care Team Related Persons Name: ROLA VEGA Name: SHA CORONADO Name: GAUTAM MONTIEL Address: [address] [place] [address]
--- OUTSIDE RECORDS SUMMARY | 2023-10-28 11:27 | XMS_ITS | Continuity of Care Document ---
Author Organization [facility] Address [address] [place] [address] [address] [place] [address]- Care Team Providers Care Gun Examiner Name Role Phone Cranks Sneha AVILEZ Primary Care Physician Encounter [facility] Date(s): 09/24/22 - 10/24/[address] [place], [place] [address] Attending Physician: Manuel Holliday Admitting Physician: AdmManuel lobo Referring Physician: AdmtrManuel Allergies, Adverse Reactions, Alerts [...] capsule, 0 Refills, Maintenance, 01/14/21 17:58:00 EST, [facility]/pharmacy #[id number], 158, cm, 01/14/21 10:58:00 EST, Height, 61.3, kg, 01/14/21 10:58:00 EST, Dry Weight Start Date: 01/14/21 Status: Ordered sertraline 50 mg oral tablet 1 tablet = 50 mg, By Mouth, Daily, # 30 tablet, 0 Refills, Maintenance, 08/25/22 14:48:00 EDT, Tablet, [facility], Partial fill upon patient [...] Team Personnel Name: Sneha Li MD Position: [facility] Outreach Member Role: PCP Address: Address: [address] [place] [address] [place] [address] Name: Alana Palma RN Position: S RN Member Role: Primary Care Nurse Name: Cathy Ramírez RN Position: S RN Member Role: Primary Care Nurse Name: Kathleen Muniz RN Position: S RN Member Role: Primary Care Nurse Care Team Related Persons Name: SHA CORONADO Name: GAUTAM MONTIEL
--- OUTSIDE RECORDS SUMMARY | 2023-10-28 11:27 | XMS_ITS | Continuity of Care Document ---
Author Organization [facility] Address [address] [place] [address] [address] [place] [address]- Care Team Providers Care Basket Hand Weaver Name Role Phone Sneha Li MD Primary Care Physician [place] [facility] Date(s[place] 09/05/22 - 10/05/[address] [place], [place] [address] Allergies, Adverse Reactions, Alerts No Known Allergies [...] capsule, 0 Refills, Maintenance, 01/14/21 17:58:00 EST, [facility]/pharmacy #[id number], 158, cm, 01/14/21 10:58:00 EST, Height, 61.3, kg, 01/14/21 10:58:00 EST, Dry Weight Start Date: 01/14/21 Status: Ordered sertraline 50 mg oral tablet 1 tablet = 50 mg, By Mouth, Daily, # 30 tablet, 0 Refills, Maintenance, 08/25/22 14:48:00 EDT, Tablet, [facility], Partial fill upon patient [...] Team Personnel Name: Sneha Li MD Position: [facility] Outreach Member Role: PCP Address: Address: [address] [place] [address] [place] [id number] Name: Alana Palma RN Position: S RN Member Role: Primary Care Nurse Name: Cathy Ramírez RN Position: S RN Member Role: Primary Care Nurse Name: Kathleen Muniz RN Position: S RN Member Role: Primary Care Nurse Care Team Related Persons Name: SHA CORONADO Name: GAUTAM MONTIEL
--- OUTSIDE RECORDS SUMMARY | 2023-10-28 11:27 | XMS_ITS | Continuity of Care Document ---
Author Organization [facility] Address [address] [place] [address] [address] [place] [address]- Care Team Providers Care Career Placement Specialist Name Role Phone Guillermo Sneha AVILEZ Primary Care Physician [place] [facility] [place] [id number] Date(s): 05/08/23 - 07/19/[address] [place], [place] [address] Attending Physician: Patricia AVILEZ, Hitesh Allergies, Adverse Reactions, Alerts No Known Allergies [...] 05/29/23 13:46:00 EDT, Route to Pharmacy Electronically, [facility], Partial fill upon patient [...] Team Personnel Name: Sneha Li MD Position: [facility] Outreach Member Role: PCP Address: Address: [address] [place] [address] [address] [place], [place] [address] Name: Rebeka Jimenez RN Position: S RN Member Role: Primary Care Nurse Name: Jamaal Cooney RN Position: S RN Member Role: Primary Care Nurse Name: Cathleen Hudson RN Position: S RN Member Role: Primary Care Nurse Name: Kathleen Muniz RN Position: [facility] RN Member Role: Primary Care Nurse Care Team Related Persons Name: ROLA VEGA Name: SHA CORONADO Name: GAUTAM MONTIEL Address: [address] [address]
--- OUTSIDE RECORDS SUMMARY | 2023-10-28 11:27 | XMS_ITS | Continuity of Care Document ---
Author Organization [facility] Address [address] [place] [address]- Care Team Providers Care Jewel Bearing Facer Name Role Phone [place] Sneha AVILEZ Primary Care Physician Encounter [facility] Date(s): 09/09/22 - 10/09/[address] [address] Attending Physician: Manuel Holliday Admitting Physician: Manuel Holliday Referring Physician: AdmtrManuel Allergies, Adverse Reactions, Alerts [...] capsule, 0 Refills, Maintenance, 01/14/21 17:58:00 EST, [facility]/pharmacy #[id number], 158, cm, 01/14/21 10:58:00 EST, Height, 61.3, kg, 01/14/21 10:58:00 EST, Dry Weight Start Date: 01/14/21 Status: Ordered sertraline 50 mg oral tablet 1 tablet = 50 mg, By Mouth, Daily, # 30 tablet, 0 Refills, Maintenance, 08/25/22 14:48:00 EDT, Tablet, [facility], Partial fill upon patient [...] Name: Guillermo AVILEZ , Sneha Arceo Position: [facility] Outreach Member Role: PCP Address: Address: [address] [place] [address] [address] Name: Alana Palma RN Position: S RN Member Role: Primary Care Nurse Name: Cathy Ramírez RN Position: S RN Member Role: Primary Care Nurse Name: Kathleen Muniz RN Position: S RN Member Role: Primary Care Nurse Care Team Related Persons Name: SHA CORONADO Name: GAUTAM MONTIEL
--- OUTSIDE RECORDS SUMMARY | 2023-10-28 11:27 | XMS_ITS | Continuity of Care Document ---
Author Organization [facility] Address [address] [place] [address]- Care Team Providers Care Motor Man Name Role Phone Sneha Li MD Primary Care Physician Encounter [facility] Date(s): 08/31/22 - 10/09/[address] [id number] Attending Physician: Sneha Li MD Admitting Physician: Sneha Li MD Referring Physician: Sneha Li MD Allergies, [...] capsule, 0 Refills, Maintenance, 01/14/21 17:58:00 EST, [facility]/pharmacy #[id number], 158, cm, 01/14/21 10:58:00 EST, Height, 61.3, kg, 01/14/21 10:58:00 EST, Dry Weight Start Date: 01/14/21 Status: Ordered sertraline 50 mg oral tablet 1 tablet = 50 mg, By Mouth, Daily, # 30 tablet, 0 Refills, Maintenance, 08/25/22 14:48:00 EDT, Tablet, [facility], Partial fill upon patient [...] Team Personnel Name: Sneha Li MD Position: [facility] Outreach Member Role: PCP Address: Address: [address] [place] [address] [place] [id number] Name: Alana Palma RN Position: S RN Member Role: Primary Care Nurse Name: Cathy Ramírez RN Position: S RN Member Role: Primary Care Nurse Name: Kathleen Muniz RN Position: S RN Member Role: Primary Care Nurse Care Team Related Persons Name: SHA CORONADO Name: GAUTAM MONTIEL
--- OUTSIDE RECORDS SUMMARY | 2023-10-28 11:27 | XMS_ITS | Continuity of Care Document ---
Author Organization [facility] Address [address] [place] [address]- Care Team Providers Care Radar Engineering Teacher Name Role Phone Sneha Li MD Primary Care Physician Encounter [facility] Date(s): 03/17/23 - 06/18/[address] [id number] Attending Physician: Sneha Li MD Admitting Physician: [...] 05/29/23 13:46:00 EDT, Route to Pharmacy Electronically, [facility], Partial fill upon patient [...] Personnel Name: Sneha Li MD Position: [facility] Outreach Member Role: PCP Address: Address: [address] [place] [address] [address] [place] [address]- Name: Rebeka Jimenez RN Position: S RN Member Role: Primary Care Nurse Name: Jamaal Cooney RN Position: S RN Member Role: Primary Care Nurse Name: Cathleen Hudson RN Position: S RN Member Role: Primary Care Nurse Name: Kathleen Muniz RN Position: S RN Member Role: Primary Care Nurse Care Team Related Persons Name: ROLA VEGA Name: SHA CORONADO Name: GAUTAM MONTIEL Address: [place] [address] [place] [address]
--- OUTSIDE RECORDS SUMMARY | 2023-10-28 11:27 | XMS_ITS | Continuity of Care Document ---
Author Organization [facility] Address [address] [place] [address]- Care Team Providers Care Toddler Lead Teacher Name Role Phone Sneha Li MD Primary Care Physician Encounter 05/03/23 - 05/27/23 [facility] [address] [place] [id number] Discharge Disposition: [facility] Allergies, Adverse Reactions, [...] 05/02/23 10:09:00 EDT, Route to Pharmacy Electronically, [facility], Partial fill upon patient request [...] Team Personnel Name: Sneha Li MD [facility] Member Role: PCP Address: Address: [address] [place] [address] [address] [place], [place] [address] Name: Rebeka Jimenez RN Position: S RN Member Role: Primary Care Nurse Name: Jamaal Cooney RN Position: S RN Member Role: Primary Care Nurse Name: Kathleen Muniz RN Position: S RN Member Role: Primary Care Nurse Care Team Related Persons Name: ROLA VEGA Name: SHA CORONADO Name: GAUTAM MONTIEL Address: home [address] [place] [address]
--- OUTSIDE RECORDS SUMMARY | 2023-10-28 11:27 | XMS_ITS | Continuity of Care Document ---
Author Organization [facility] Address [address] [address] [place] [address]- Care Team Providers Care Solids Control Technician Name Role Phone Basye Sneha AVILEZ Primary Care Physician Encounter 05/05/23 - 06/06/23 [facility] [address], [address] [place], [place] [address] Attending Physician: Hitesh Gomez MD Admitting Physician: [...] 05/29/23 13:46:00 EDT, Route to Pharmacy Electronically, [facility], Partial fill upon [...] 05/29/23 13:44:00 EDT, Route to Pharmacy Electronically, [facility], Partial fill upon patient request [...] Pt quit 3 months ago; entered on: 3/18/24 Sex Patient Care team information Care Team Personnel Name: Sneha Li MD Position: [facility] Outreach Member Role: PCP Address: Address: [address] [place] [address] [address] [place] [address]- Name: Rebeka Jimenez RN Position: S RN [...] CORONADO Name: GAUTAM MONTIEL Address: home [address] [place] [address]
--- OUTSIDE RECORDS SUMMARY | 2023-10-28 11:27 | XMS_ITS | Continuity of Care Document ---
Author Organization [facility] Address [address] [place] [address] [address] [place] [address]- Care Team Providers Care Aquarium Specialist Name Role Phone Sneha Li MD Primary Care Physician Encounter [facility] Date(s): 05/08/23 - 05/15/[address] [place], [place] [address] Attending Physician: Patricia AVILEZ, Hitesh Allergies, Adverse [...] 05/02/23 10:09:00 EDT, Route to Pharmacy Electronically, [facility], Partial fill upon patient [...] recent to oldest [Reference Range]: 1 Height 157 cm (05/08/23 1:50 PM) Pulse Rate [55-90 bpm] 92 bpm *H* (05/08/23 1:50 PM) Blood Pressure [90-138/55-84 mm Hg] 100/ 67mm Hg (05/08/23 1:50 PM) Temperature [96.8-100.4 DegF] 96.6 DegF *L* (05/08/23 1:50 PM) Blood pressure sites Arm, left (05/08/23 1:50 PM) Temperature Route Temporal (05/08/23 1:50 PM) Social History Social History Type Response Smoking Status Former smoker, quit more than 30 days ago; Other: Pt quit 3 months ago; entered on: 04/28/23 Sex Patient Care team information Care Team Personnel Name: Sneha Li MD Position: [facility] Outreach Member Role: PCP Address: Address: [address] [place] [address] [address] [place], [place] [address] Name: Rebeka Jimenez RN Position: S RN Member Role: Primary Care Nurse Name: Jamaal Cooney RN Position: [facility] RN Member Role: Primary Care Nurse Name: Kathleen Muniz RN Position: [facility] RN Member Role: Primary Care Nurse Care Team Related Persons Name: ROLA VEGA Name: SHA CORONADO Name: GAUTAM MONTIEL
[2023-10-28 11:30] LABS: SLIDE REVIEW VERIFIED
[2023-10-28 11:34] LABS: Alanine Aminotransferase 5 U/L (0-31); Albumin Level 3.2 g/dL (3.5-5.0); Alkaline Phosphatase 89 U/L (39-117); Anion Gap 13 (12-20); Aspartate Amino Transferase 10 U/L (5-31); Bilirubin Total 0.2 mg/dL (0.0-1.0); Blood Urea Nitrogen 10 mg/dL (9-16); Calcium 9.1 mg/dL (8.4-10.2); Carbon Dioxide 27 mmol/L (22-29); Chloride 102 mmol/L (96-108); Estimated Glomerular Filt Rate > 60; Glucose Random 110 mg/dL (60-115); Potassium 4.1 mmol/L (3.3-5.1); Sodium 138 mmol/L (135-145); Total Protein 6.6 g/dL (6.5-8.0)
--- NOTE | 2023-10-28 13:01 | ED_ITS ---
HPI - General Adult General Chief complaint: Abdominal Pain Stated complaint: Body pains Time Seen by Provider: 10/28/23 12:03 History of Present Illness ED Provider: Russell KOEHLER narrative: 52 y/o F patient; PMH deafness, schizophrenia, recent CT Chest/Abdomen/Pelvis with infiltrative soft tissue mass in the presacral region invading the rectosigmoid colon as well as the cervix and vagina with extension into the perineum as well as possible metastatic lesgions in the left hepatic lobe, left hemipelvis, and left upper lung; presenting from home with report of diffuse abdominal pain. The patient's PCP referred her to the emergency department for admission for pain control. She reports a 20lb weight loss in the last 5 months. Decreased PO intake and persistent diarrhea. She denies: fever or chills, chest pain, SOB, cough/congestion. Followed by Oncology for chronic leukocytosis. Pending biopsy and PET scan. Related Data Home Medications ?Medication ?Instructions ?Recorded ?Confirmed albuterol sulfate 90 mcg/actuation 2 puff PO Q6H PRN Wheezing 02/25/20 10/20/23 aerosol inhaler risperidone 0.5 mg tablet 0.5 mg PO Q8-10H 02/25/20 10/20/23 risperidone 4 mg tablet 4 mg PO BEDTIME 02/25/20 10/20/23 lorazepam 0.5 mg tablet 0.5 mg PO BID 07/17/23 10/20/23 acetaminophen 500 mg tablet 500 - 1,000 mg PO Q8-12H PRN Pain 10/28/23 fluticasone 500 mcg-salmeterol 50 1 inh inhalation BID 10/28/23 mcg/dose blistr powdr for inhalation (Advair Diskus) nicotine 21 mg/24 hr daily 1 patch transdermal DAILY 10/28/23 transdermal patch risperidone 1 mg tablet 1 mg PO BID 10/28/23 Previous Rx's ?Medication ?Instructions ?Recorded folic acid 1 mg tablet 1 mg PO DAILY #90 tabs 10/20/23 ferrous sulfate 325 mg (65 mg 325 mg PO BID #60 tabs 10/22/23 iron) tablet Allergies Allergy/AdvReac Type Severity Reaction Status Date / Time No Known Allergies Allergy Verified 10/28/23 10:36 [No Known Allergies*] Review of Systems 2 Review of Systems: Yes all other systems are reviewed and are negative Neurologic: Denies Sensory deficit (Neuro) [facility] Past Medical History Attestation statement: The following information was validated with the patient. Source: old records reviewed Medical History History of gallbladder disease Chronic pain of left knee Low vitamin D level Dyslipidemia Mental health disorder Hx of Lyme disease Congenital deafness Surgical History Hx of tubal ligation Hx of appendectomy History of cholecystectomy Hx of foot surgery Family History Family History Mother Hypertension Social History Social History Household Members: Spouse and None Housing: Apartment Alcohol intake: former Patient Tobacco Use Status: Current everyday Tobacco user Tobacco use type: Cigarette Cigarette Packs Per Day: 1 Substance Use Type: Marijuana Advance Directives: No Advance Directives Information Provided: Yes service: No Current occupational status: disabled Physical Exam ED Vital Signs: Vital Signs - 24 hr 10/28/23 10:31 Temperature 98.7 F Pulse Rate 96 Respiratory Rate 18 Blood Pressure 92/67 Pulse Oximetry 97 Oxygen Delivery Method Room Air BMI result Body Mass Index 21.4 Patient is afebrile, mildly hypotensive, and hemodynamically stable. Const General: cooperative Orientation/consciousness: patient oriented x3 HENMT Head: Yes normal to inspection and Yes atraumatic Eyes General: appearance normal, both eyes and all related structures Pupils: Equal, round and reactive pupils present Neck Neck: Yes normal visual inspection, Yes supple and No tender Chest Chest palpation & inspection: normal inspection of the chest and normal palpation of entire chest wall Resp Effort & Inspection: normal respiratory effort, able to speak in complete sentences and no respiratory distress Auscultation: clear to auscultation bilaterally Cardio Rate: regular rate Rhythm: regular rhythm Peripheral pulses: Peripheral pulses 2+ throughout GI Inspection: Yes normal to inspection Palpation (GI): Soft to palpation, not firm, nontender, no guarding and not rigid Auscultation: normal bowel sounds Neuro General: patient oriented x3 Cranial nerves: Yes Equal, round and reactive pupils present Motor exam (neuro): 5/5 motor strength present throughout Sensory Exam: No Sensory deficit (Neuro) Course Course Course Narrative: Patient is afebrile with mildly soft blood pressure. Providing pain control with IV Morphine, antiemetic with IV Zofran, and hydration with 1L IVF. Labs reviewed. Leukocytosis 16.4 - chronically elevated. Discussed with patient's PCP who provided supplemental information. Paged oncology regarding plan for admission. Provided 2nd dose of Morphine IV and Toradol IV. Patient will require admission for pain control. Plan: Admit to hospitalist Condition: Stable Medications Administered Generic Name Dose Route Start Last Admin Trade Name Freq PRN Reason Stop Dose Admin Sodium Chloride 1,000 mls @ 999 mls/hr 10/28/23 13:15 10/28/23 13:14 Ns IV 10/28/23 14:15 999 mls/hr .Q1H1M GUANAKO Administration Discontinued Medications Generic Name Dose Route Start Last Admin Trade Name Freq PRN Reason Stop Dose Admin Morphine Sulfate 4 mg 10/28/23 13:02 10/28/23 13:15 Morphine Sulfate 4 Mg/Ml Cartridge IVPUSH 10/28/23 13:03 4 mg ONCE ONE Administration Protocol Ondansetron HCl 4 mg 10/28/23 13:06 10/28/23 13:15 Ondansetron Hcl 4 Mg/2 Ml Vial IVPUSH 10/28/23 13:07 4 mg ONCE ONE Administration Medical Decision Making Lab Data 10/28/23 10:52 10/28/23 10:52 Labs: Lab Results 10/28/23 Range/Units 10:52 WBC 16.4 H (4.8-10.8) X10*3/uL RBC 4.04 L (4.20-5.50) X10*6/uL Hgb 9.5 L (12.0-16.0) g/dl Hct 30.2 L (37.0-47.0) % MCV 74.8 L (80.0-98.0) fL MCH 23.5 L (27.0-33.0) pg MCHC 31.5 (31.0-35.0) g/dl RDW 17.8 H (11.0-16.0) % Plt Count 412 H (160-400) X10*3/uL MPV 8.6 L (9.4-12.3) fL Immature Gran % (Auto) 0.4 (0.0-0.4) % Neut % (Auto) 50.8 (45-73) % Lymph % (Auto) 42.9 H (20-40) % [place] % (Auto) 4.9 (2-11) % Eos % (Auto) 0.6 (0-4) % Baso % (Auto) 0.4 (0-2) % Lymph # (Auto) 7.1 H (1.2-4.9) X10*3/uL [place] # (Auto) 0.8 (0.1-1.2) X10*3/uL Eos # (Auto) 0.1 (0.0-0.4) X10*3/uL Baso # (Auto) 0.1 (0.0-0.2) X10*3/uL Abs Immat Gran (auto) 0.06 H (0.00-0.03) X10*3/uL Absolute Neuts (auto) 8.4 H (2.0-8.3) x10*3/uL Absolute Nucleated RBC 0.000 (0.0-0.012) X10*3/uL Nucleated RBC % (auto) 0.0 (0.0-0.2) /100WBC Smear Tech's Comments VERIFIED Sodium 138 (135-145) mmol/L Potassium 4.1 (3.3-5.1) mmol/L Chloride 102 (96-108) mmol/L Carbon Dioxide 27 (22-29) mmol/L Anion Gap 13 (12-20) BUN 10 (9-16) mg/dL Creatinine 0.76 (0.5-1.4) mg/dL Estim Creat Clear Calc 70.0 Estimated GFR > 60 Random Glucose 110 (60-115) mg/dL Calcium 9.1 (8.4-10.2) mg/dL Total Bilirubin 0.2 (0.0-1.0) mg/dL AST 10 (5-31) U/L ALT 5 (0-31) U/L Alkaline Phosphatase 89 (39-117) U/L Total Protein 6.6 (6.5-8.0) g/dL Albumin 3.2 L (3.5-5.0) g/dL Discharge Plan Discharge Clinical Impression: Pain management Patient Disposition: Admitted As Inpatient Prescriptions: No Action albuterol sulfate 90 mcg/actuation HFA aerosol inhaler 2 puff PO Q6H PRN (Reason: Wheezing) risperidone 4 mg Tablet 4 mg PO BEDTIME risperidone 0.5 mg Tablet 0.5 mg PO Q8-10H folic acid 1 mg Tablet 1 mg PO DAILY Qty: 90 3RF ferrous sulfate 325 mg (65 mg iron) Tablet 325 mg PO BID Qty: 60 1RF acetaminophen 500 mg Tablet 500 - 1,000 mg PO Q8-12H PRN (Reason: Pain) fluticasone propion-salmeterol [Advair Diskus] 500-50 mcg/dose Blister With Device 1 inh INHALATION BID nicotine 21 mg/24 hr Patch 24 Hour 1 patch TRANSDERMAL DAILY risperidone 1 mg Tablet 1 mg PO BID lorazepam 0.5 mg tablet 0.5 mg PO BID Print Language: Djib[place]ian Sign Language
[2023-10-28] MEDS: 0.9 % Sodium Chloride 1,000 ML 999 ML IV (13:14)
[2023-10-28] MEDS: ondansetron HCL 4 MG/2 ML VIAL IVPUSH (13:15)
[2023-10-28] MEDS: Morphine Sulfate 4 MG/ML CARTRIDGE IVPUSH ×2 (13:15→14:32)
[2023-10-28 14:00] VITALS: BP 101/59; PULSE 88; RESP 15; TEMP 36.7; O2SAT 96
[2023-10-28] MEDS: Ketorolac Tromethamine 15 MG/ML VIAL IVPUSH (14:33)
--- NOTE | 2023-10-28 14:48 | PHA.MEDREC ---
Pharmacy Consult ? Medication Reconciliation Pharmacy has completed the medication reconciliation, spoke to patient through ALS meal room hand, patient confirmed that list that she provided was the most up to date and that she still takes the iron and folic acid as reflected.
--- NOTE | 2023-10-28 14:49 | PM.IMHP ---
History of Present Illness Date of Service: 10/28/23 Attending physician on admission: Jordy Jenkins Chief Complaint: intractable pain 52-year-old female with history of schizophrenia, anxiety/depression, and mild persistent asthma who is deaf and requires ASL interpretation presents to the ED earlier today accompanied by mental health worker from [facility], [place], for evaluation of diffuse severe pain from the neck down, worst in the abdomen. freelance interpreter/translator Abhinav [id number] used during exam and interview. She states that she has been experiencing 10/10 pain for several weeks. She has also lost over 20 lb unintentionally over the last month. She states she does experience some anorexia and is only eating about 1 meal per day but is tolerating fluids. She has been following with her PCP with recent CT chest/abdomen/pelvis showing infiltrative soft tissue mass in the presacral region invading the rectosigmoid colon as well as the cervix and vagina with extension into the perineum as well as possible metastatic lesions in the left hepatic lobe, left hemipelvis and left upper lung. PCP recommended patient come to the ED for IV pain medication. She has been following with Dr. Dorsey previously due to chronic leukocytosis with next steps including PET scan and biopsy however imaging results are more recent. Since arrival, patient with soft blood pressures but no hypotension, mildly tachycardic to 106. Vitals otherwise within normal limits. She has a leukocytosis of 16.4 which is chronic. H/H 9.5/30.2%, MCV 74.8. Platelets 412. In the ED has been given multiple doses of IV morphine, ketorolac and will be admitted for further management of intractable pain related to metastatic cancer. Review of Systems Review of Systems: General: No fevers, malaise. +unintentional weight loss HEENT: No blurred vision, diplopia. No sore throat, nasal congestion, rhinorrhea, sinus pain, ear pain Cardiovascular: No chest pain, palpitations, or leg edema Respiratory: No shortness of breath, wheezing, cough GI: No abdominal pain, nausea, vomiting, diarrhea, constipation, melena, hematochezia : No dysuria, hematuria, increased urinary frequency, decreased urinary output MSK: +diffuse pain Neuro: No headaches, weakness, paresthesias Skin: No rashes or lesions PMFSH Medical History Schizophrenia Asthma History of gallbladder disease Chronic pain of left knee Low vitamin D level Dyslipidemia Mental health disorder Hx of Lyme disease Congenital deafness Family History Mother Hypertension Surgical History Hx of tubal ligation Hx of appendectomy History of cholecystectomy Hx of foot surgery Social History Household Members: Spouse and None Housing: Apartment Alcohol intake: former Patient Tobacco Use Status: Current everyday Tobacco user Tobacco use type: Cigarette Cigarette Packs Per Day: 1 Substance Use Type: Marijuana Advance Directives: No Advance Directives Information Provided: Yes Patient : No service: No Current occupational status: disabled Meds Allergies Allergy/AdvReac Type Severity Reaction Status Date / Time No Known Allergies Allergy Verified 10/28/23 10:36 [No Known Allergies*] Active Medications: Current Medications Acetaminophen (Acetaminophen 325 Mg Tablet) 650 mg PO Q6H PRN PRN Reason: Pain, Mild (Pain Scale 1-3), fever or headache Calcium Carbonate (Calcium Carbonate 750 Mg Tab.Chew) 750 mg PO Q4H PRN PRN Reason: Heartburn Enoxaparin Sodium (Enoxaparin Sodium 40 Mg/0.4 Ml Syringe) 40 mg SUBCUT Q24H GUANAKO Hydromorphone HCl (Hydromorphone Hcl 1 Mg/Ml Syringe) 0.5 mg IVPUSH Q4H PRN; Protocol PRN Reason: Pain, Severe (Pain Scale 7-10) Lactated Ringer's (Lr) 1,000 mls @ 100 mls/hr IVCONT .Q10H GUANAKO Magnesium Hydroxide (Milk Of Magnesia 30 Ml Oral.Susp) 30 ml PO DAILY PRN PRN Reason: Constipation Melatonin (Melatonin 3 Mg Tablet) 6 mg PO BEDTIME PRN PRN Reason: Insomnia Nicotine (Nicotine 21 Mg Patch.Td24) 21 mg TRANSDERMA DAILY GUANAKO Ondansetron HCl (Ondansetron Hcl 4 Mg/2 Ml Vial) 4 mg IVPUSH Q8H PRN PRN Reason: Nausea and Vomiting Oxycodone HCl (Oxycodone Hcl Immed Release 5 Mg Tablet) 5 mg PO Q6H PRN PRN Reason: Pain, Moderate(Pain Scale 4-6) Sodium Chloride (0.9 % Sodium Chloride Flush 3 Ml Syringe) 3 ml IVFLUSH QSHIFT [facility] Home Medications ?Medication ?Instructions ?Recorded ?Confirmed ?Last Taken ?Type albuterol sulfate 90 mcg/actuation 2 puff PO Q6H PRN Wheezing 02/25/20 10/28/23 Unknown History aerosol inhaler risperidone 4 mg tablet 4 mg PO BEDTIME 02/25/20 10/28/23 Unknown History lorazepam 0.5 mg tablet 0.5 mg PO BID 07/17/23 10/28/23 Unknown History acetaminophen 500 mg tablet 500 - 1,000 mg PO Q8-12H PRN Pain 10/28/23 10/28/23 Unknown History fluticasone 500 mcg-salmeterol 50 1 inh inhalation BID 10/28/23 10/28/23 Unknown History mcg/dose blistr powdr for inhalation (Advair Diskus) nicotine 21 mg/24 hr daily 1 patch transdermal DAILY 10/28/23 10/28/23 Unknown History transdermal patch risperidone 1 mg tablet 1 mg PO BID 10/28/23 10/28/23 Unknown History Physical Exam Vital Signs and Narrative: Vital Signs: Last Vital Signs Temp 98.1 F 10/28/23 14:00 Pulse 88 10/28/23 14:00 Resp 15 10/28/23 14:00 BP 101/59 L 10/28/23 14:00 Pulse Ox 96 10/28/23 14:00 O2 Del Method Room Air 10/28/23 10:31 BMI result Body Mass Index 21.4 Constitutional - Awake and Alert, No apparent distress Eyes - PERRLA, EOMI Cardiovascular - S1S2, RRR, No edema Respiratory - Normal lung expansion, Normal respiratory effort, No respiratory distress, CTA bilaterally Gastrointestinal - soft, nondistended, diffuse tenderness to palpation without guarding or rebound. Positive bowel sounds throughout Extremities - no calf tenderness bilaterally, no swelling Musculoskeletal - Normal inspection, normal ROM. Diffuse midline and paraspinal back pain Skin - Warm/Dry Neurological - Alert & oriented x3, 4/5 strength BUE and BLE Psychological - Appropriate affect Results Labs 10/28/23 10:52 10/28/23 10:52 Labs: Laboratory Results - last 24 hr 10/28/23 10:52 MCV 74.8 L MCH 23.5 L MCHC 31.5 RDW 17.8 H Plt Count 412 H MPV 8.6 L Immature Gran % (Auto) 0.4 Neut % (Auto) 50.8 Lymph % (Auto) 42.9 H [place] % (Auto) 4.9 Eos % (Auto) 0.6 Baso % (Auto) 0.4 Lymph # (Auto) 7.1 H [place] # (Auto) 0.8 Eos # (Auto) 0.1 Baso # (Auto) 0.1 Abs Immat Gran (auto) 0.06 H Absolute Neuts (auto) 8.4 H Absolute Nucleated RBC 0.000 Nucleated RBC % (auto) 0.0 Smear Tech's Comments VERIFIED Anion Gap 13 Estim Creat Clear Calc 70.0 Estimated GFR > 60 Random Glucose 110 Calcium 9.1 Total Bilirubin 0.2 AST 10 ALT 5 Alkaline Phosphatase 89 Total Protein 6.6 Albumin 3.2 L Assessment and Plan (1) Metastatic cancer: Status: Acute (2) Intractable pain: Status: Acute Plan 52-year-old female with history of schizophrenia, anxiety/depression, and mild persistent asthma who is deaf and requires ASL interpretation admitted for further management of intractable pain r/t metastatic cancer. #Intractable pain r/t metastatic cancer -CT Chest/abd/pelvis 10/22 shows: -infiltrative soft tissue mass in the low pelvis/presacral region measuring 6.6 x 5.4 x 10.1 cm with invasion of the rectosigmoid colon as well as service and vagina with extension into the perineum. There also small free fluid and inflammatory changes in the presacral space. -possible metastatic disease with a small nodule in the left hemipelvis measuring 1.2 x 1.2 cm, enlarged right inguinal lymph node measuring 1.9 x 1.4 cm and enlarged right paratracheal lymph node measuring 2.4 x 2.3 cm -3 mm left upper lobe pulmonary nodule -Hypervascular left hepatic lesion measuring 2.3 x 2.7 cm -pain management p.r.n. with IV Dilaudid and oxycodone -oncology consult #SIRS criteria -leukocytosis is chronic. Tachycardia and tachypnea due to patient discomfort and likely hypovolemia from dehydration with poor p.o. intake. There is no sepsis or severe sepsis on admission, no infection # schizophrenia/mood disorder -continue home medications # mild persistent asthma -no exacerbation -continue Flovent, albuterol p.r.n. DVT prophylaxis-Lovenox Full code Patient requires inpatient stay at least 2 midnights for management of intractable pain related to metastatic cancer requiring IV narcotics, expert consultation Quality Stroke Does the patient have a stroke diagnosis?: No VTE Prior VTE?: No VTE Risk Level:: Medical - moderate - high VTE Device Contraindication: Treatment Not Indicated VTE Drug Contraindication: N/A - Med Ordered
--- OUTSIDE RECORDS SUMMARY | 2023-10-28 14:55 | XMS_ITS | Continuity of Care Document ---
Author Organization [facility] Address [address] [place] [id number] Care Team Providers Care Credentialing Coordinator Name Role Phone Sneha Li MD Primary Care Physician [place] [facility] [place] 09/13/22 [facility] [address] [place] [id number] Referring Physician: Noreen Montgomery MD Allergies, Adverse Reactions, Alerts No Known [...] 0 Refills, Maintenance, 01/14/21 17:58:00 EST, [facility]/pharmacy #[id number], 158, cm, 01/14/21 10:58:00 EST, Height, 61.3, kg, 01/14/21 10:58:00 EST, Dry Weight Start Date: 01/14/21 Status: Ordered sertraline 50 mg oral tablet 1 tablet = 50 mg, By Mouth, Daily, # 30 tablet, 0 Refills, Maintenance, 08/25/22 14:48:00 EDT, Tablet, [facility], Partial fill upon patient [...] Team Personnel Name: Sneha Li MD Position: [facility] Outreach Member Role: PCP Address: Address: [address] [place] [address] [place] [id number] Name: Alana Palma RN Position: S RN Member Role: Primary Care Nurse Name: Cathy Ramírez RN Position: S RN Member Role: Primary Care Nurse Name: Kathleen Muniz RN Position: S RN Member Role: Primary Care Nurse Care Team Related Persons Name: SHA CORONADO Name: GAUTAM MONTIEL
[2023-10-28] MEDS: Lactated Ringers 1,000 ML 100 ML IVCONT (14:59)
[2023-10-28] MEDS: Nicotine 21 MG PATCH.TD24 TRANSDERMA (15:02)
[2023-10-28] MEDS: Enoxaparin Sodium 40 MG/0.4 ML SYRINGE SUBCUT (15:02)
--- NOTE | 2023-10-28 15:25 | P.CNHO_ITS ---
Subjective - Subjective Chief complaint: CONSULT FOR: INTRA-ABDOMINAL MALIGNANCY. Patient: known to practice within the last 3 years Consult date: 10/28/23 Requesting Physician: Gregory. Primary Care Provider: Sneha Li MD Family Provider: Sneha Li MD Medical Summary: DIAGNOSIS: INTRA-ABDOMINAL MALIGNANCY. HPI - Consult Narrative Reason for consult: Consult for: Intra-abdominal malignancy. Narrative: Yanna Power is a 52 year old lady admitted to the hospital with the abdominal pain. Unfortunately she is deaf and requires ASL interpretation. She presented to the ED today, accompanied by mental health worker from [facility], [place], for evaluation of diffuse severe pain from the neck down, worst in the abdomen. spanish interpreter Abhinav [id number] used during exam and interview. She states that she has been experiencing 10/10 pain for several weeks. She has also lost over 20 lb unintentionally over the last month. She states she does experience some anorexia and is only eating about 1 meal per day but is tolerating fluids. She has been following with her PCP with recent CT chest/abdomen/pelvis showing infiltrative soft tissue mass in the presacral region invading the rectosigmoid colon as well as the cervix and vagina with extension into the perineum as well as possible metastatic lesions in the left hepatic lobe, left hemipelvis and left upper lung. PCP recommended patient come to the ED for IV pain medication. She has been following with Dr. Dorsey previously due to chronic leukocytosis with next steps including PET scan and biopsy however imaging results are more recent. Since arrival, patient with soft blood pressures but no hypotension, mildly tachycardic to 106. Vitals otherwise within normal limits. DATABASE: She has a leukocytosis of 16.4 which is chronic. H/H 9.5/30.2%, MCV 74.8. Platelets 412. In the ED has recieved multiple doses of IV morphine, ketorolac. PAST MEDICAL HISTORY: She was recently seen by Dr. Dorsey on 10/19. Told of elevated WBC count in 2019. WBC count ranging from 15-23 K with increase in lymphocytes. History of recurrent urinary tract infections. No prednisone use. Chronic smoker/marijuana use. Blood for flow cytometry showed B-cell lymphoid expansion with no definite clonal lymphoid population detected. Polyclonal B-cell lymphocytosis. LDH mildly elevated at 244, serum protein electrophoresis showed a faint M spike. Beta 2 microglobulin mildly elevated at 2.59 mg/L. Interval history: Patient has been sent by her PCP for recent findings of right groin lymph node enlargement and a pretracheal lymph node enlargement. She was found noncontrast CT chest performed for lung cancer screening to have an enlarged pretracheal lymph node as per report, official CT scan report not available. Patient noticed a palpable lymph node in her right groin, she says it is somewhat tender but not significantly. This has been present for several weeks, not growing in size. She reports loss of appetite and weight loss. She has had intermittent hemorrhoidal bleeding. She has not yet undergone colonoscopy. She is postmenopausal. She denies any difficulty swallowing. She was seen by ENT surgeon this week and is awaiting biopsy or excision. [facility] Medical History: schizophrenia, anxiety/depression, and mild persistent asthma. Chronic pain of left knee Congenital deafness Dyslipidemia History of gallbladder disease Hx of Lyme disease Low vitamin D level Mental health disorder Surgical History: History of cholecystectomy Hx of appendectomy Hx of foot surgery Hx of tubal ligation Family History: Mother Hypertension Social History: Living Situation History: Household Members: Spouse Household Members: None Housing: Apartment Alcohol History Details: 1. How often do you have a drink containing alcohol?: a. Never Tobacco History: Patient Tobacco Use Status: Current everyday Tobacco Tobacco use type: Cigarette Cigarette Packs Per Day: 1 Substance Use History: Use of substances other than those prescribed or required for medical reasons : No Substance Use Type: Marijuana Review of Systems - Constitutional Reports fatigue, Reports lack of energy, Denies night sweats, Reports weight loss - ENT Denies dysphagia, Denies facial pain, Denies headache(s) - Cardiovascular Denies chest pain - Respiratory Denies cough - Gastrointestinal Reports gastrointestinal complaints, abdominal pain, Reports bright, red blood in stools Review of Systems - Constitutional Reports no additional constitutional complaints, Reports lack of energy, Reports weight loss - Eyes Reports no additional eye complaints - ENT Reports no additional ear, nose, mouth, and throat complaints - Cardiovascular Reports no additional cardiovascular complaints - Respiratory Reports no additional respiratory complaints - Gastrointestinal Reports no additional gastrointestinal complaints - Genitourinary Reports no additional female genitourinary complaints - Musculoskeletal Reports no additional musculoskeletal complaints - Integumentary/Breasts Skin/Breast: Reports no additional skin complaints - Neurologic Denies sensory deficit - Psychiatric Reports no additional psychiatric complaints - Endocrine Reports no additional endocrine complaints - Hematologic/Lymphatic Reports no additional hematologic/lymphatic complaints - Allergic/Immunologic Reports no additional allergic/immunologic complaints Oncology Screenings - ECOG Performance Status ECOG Performance Status: 2 [facility] Medical History: Medical History (Last Reviewed 10/31/23 @ 13:16 by Zaid Rocha MD) Asthma Chronic pain of left knee Congenital deafness Dyslipidemia History of gallbladder disease Hx of Lyme disease Low vitamin D level Mental health disorder Schizophrenia Functional capacity: uses cane/walker Patient : No Family History: Family History (Last Reviewed 10/28/23 @ 15:04 by SONU Lujan) Mother Hypertension Surgical History: Surgical History (Last Reviewed 10/28/23 @ 15:04 by SONU Lujan) History of cholecystectomy Hx of appendectomy Hx of foot surgery Hx of tubal ligation Social History: Social History (Last Reviewed 10/28/23 @ 15:04 by SONU Lujan) Living Situation History: Household Members: None Housing: Apartment Do you presently have visiting nurse or other home services: Yes Do you presently have visiting nurse or other home services comment: followed by [facility] per records Tobacco History: Patient Tobacco Use Status: Current everyday Tobacco Tobacco use type: Cigarette Cigarette Packs Per Day: 1 Substance Use History: Substance Use Type: Marijuana Occupation Assessmet: service: No Current occupational status: disabled Home Medications and Allergies Current Medications: Current Medications Acetaminophen (Acetaminophen 325 Mg Tablet) 650 mg PO Q6H PRN PRN Reason: Pain, Mild (Pain Scale 1-3), fever or headache Calcium Carbonate (Calcium Carbonate 750 Mg Tab.Chew) 750 mg PO Q4H PRN PRN Reason: Heartburn Enoxaparin Sodium (Enoxaparin Sodium 40 Mg/0.4 Ml Syringe) 40 mg SUBCUT Q24H [facility] Last Admin: 10/28/23 15:02 Dose: 40 mg Hydromorphone HCl (Hydromorphone Hcl 1 Mg/Ml Syringe) 0.5 mg IVPUSH Q4H PRN; Protocol PRN Reason: Pain, Severe (Pain Scale 7-10) Lactated Ringer's (Lr) 1,000 mls @ 100 mls/hr IVCONT .Q10H [facility] Last Admin: 10/28/23 14:59 Dose: 100 mls/hr Magnesium Hydroxide (Milk Of Magnesia 30 Ml Oral.Susp) 30 ml PO DAILY PRN PRN Reason: Constipation Melatonin (Melatonin 3 Mg Tablet) 6 mg PO BEDTIME PRN PRN Reason: Insomnia Nicotine (Nicotine 21 Mg Patch.Td24) 21 mg TRANSDERMA DAILY [facility] Last Admin: 10/28/23 15:02 Dose: 21 mg Ondansetron HCl (Ondansetron Hcl 4 Mg/2 Ml Vial) 4 mg IVPUSH Q8H PRN PRN Reason: Nausea and Vomiting Oxycodone HCl (Oxycodone Hcl Immed Release 5 Mg Tablet) 5 mg PO Q6H PRN PRN Reason: Pain, Moderate(Pain Scale 4-6) Sodium Chloride (0.9 % Sodium Chloride Flush 3 Ml Syringe) 3 ml IVFLUSH QSHIFT [facility] Last Admin: 10/28/23 15:01 Dose: Not Given Home Medications ?Medication ?Instructions ?Recorded ?Confirmed ?Type albuterol sulfate 90 mcg/actuation 2 puff PO Q6H PRN Wheezing 02/25/20 10/28/23 History aerosol inhaler risperidone 4 mg tablet 4 mg PO BEDTIME 02/25/20 10/28/23 History lorazepam 0.5 mg tablet 0.5 mg PO BID 07/17/23 10/28/23 History acetaminophen 500 mg tablet 500 - 1,000 mg PO Q8-12H PRN Pain 10/28/23 10/28/23 History fluticasone 500 mcg-salmeterol 50 1 inh inhalation BID 10/28/23 10/28/23 History mcg/dose blistr powdr for inhalation (Advair Diskus) nicotine 21 mg/24 hr daily 1 patch transdermal DAILY 10/28/23 10/28/23 History transdermal patch risperidone 1 mg tablet 1 mg PO BID 10/28/23 10/28/23 History Allergies Allergy/AdvReac Type Severity Reaction Status Date / Time No Known Allergies Allergy Verified 10/28/23 10:36 [No Known Allergies*] Physical Exam Vital signs: Vital Signs Temp 98.1 F 10/28/23 14:00 Pulse 88 10/28/23 14:00 Resp 15 10/28/23 14:00 BP 101/59 L 10/28/23 14:00 Pulse Ox 96 10/28/23 14:00 O2 Del Method Room Air 10/28/23 10:31 Intake & Output 10/27/23 10/28/23 10/28/23 18:59 06:59 18:59 Intake Total 1000 / 1000 Balance 1000 / 1000 Intake: Intake, IV Amount 1000 / 1000 0.9 % Sodium Chloride 1,000 ml 1000 / 1000 @ 999 mls/hr IV .Q1H1M [facility] Rx#: [id number] Other: Weight 53.2 kg Weight 53.2 kg - Constitutional Present: moderate distress - Routine HEENT Exam Head: Present: normal inspection, normocephalic ENT: Present: mucous membranes moist - Routine Neck Exam Present: supple - Routine Cardiovascular Exam Cardiovascular: Present: S1, S2 - Routine Extremities Exam Present: nontender Hem/Onc Consult Result - Labs CBC & Chem 7: 11/02/23 07:24 10/29/23 06:26 Labs: Short CBC 10/28/23 Range/Units 10:52 WBC 16.4 H (4.8-10.8) X10*3/uL Hgb 9.5 L (12.0-16.0) g/dl Hct 30.2 L (37.0-47.0) % Plt Count 412 H (160-400) X10*3/uL BMP 10/28/23 10:52 Sodium 138 Potassium 4.1 Chloride 102 Carbon Dioxide 27 BUN 10 Creatinine 0.76 Calcium 9.1 Liver Function 10/28/23 Range/Units 10:52 Total Bilirubin 0.2 (0.0-1.0) mg/dL AST 10 (5-31) U/L ALT 5 (0-31) U/L Alkaline Phosphatase 89 (39-117) U/L Albumin 3.2 L (3.5-5.0) g/dL Assessment and Plan Patient Active problem list reviewed?: Yes (1) Metastatic cancer Status: Acute Assessment and plan: This is a pleasant 52-year-old unfortunate lady with recent diagnosis of intra- abdominal malignancy. CT scan of the abdomen pelvis and chest on 10/22 revealed: Infiltrative soft tissue mass in the low pelvis/presacral region measuring 6.6 x 5.4 x 10.1 cm with invasion of the rectosigmoid colon as well as the cervix and vagina. There is extension into the perineum. Small free fluid and inflammatory changes in the presacral space. This most likely represents neoplasm. PET/CT is recommended. There is possible metastatic disease with a small nodule in the left hemipelvis measuring 1.2 x 1.2 cm, an enlarged right inguinal lymph node measuring 1.9 x 1.4 cm and an enlarged right paratracheal lymph node measuring 2.4 x 2.3 cm. 3 mm left upper lobe pulmonary nodule is nonspecific. Hypervascular left hepatic lesion measuring 2.3 x 2.7 cm may be further characterized with MRI. Splenomegaly. Patient was being worked up as an outpatient. She was actually scheduled for a biopsy tomorrow. PLAN: To proceed with IR guided biopsy in the a.m. She can be kept NPO overnight. Further plan will depend upon the sac primary tumor found. Meanwhile will check tumor markers. Address pain control and symptom management as you are doing. Thank you for the consult, Will follow along with you, Thank you, SHAKIRA dietrich. Addendum: Biopsy results came back as carcinoma, bridge worker versus urological. Notified patient and caregivers via the web site designer. Waiting for more definitive conclusion. Will then make a treatment plan. - Time Spent With Patient Time Spent with Patient (in minutes): 30
[2023-10-28 16:09] LABS: Iron 10 mcg/dL (30-160); Percent Iron Saturation 6 % (15-50); Total Iron Binding Capacity 175 mcg/dL (228-428); Unsaturated Iron Binding 165 ug/dL
[2023-10-28] MEDS: Albuterol Sulfate 90 MCG 8 GM INHALER 2 PUFF INHALE (16:23)
[2023-10-28 16:29] LABS: Ferritin 34 ng/mL (10-250)
[2023-10-28 16:37] VITALS: BP 100/56; PULSE 75; RESP 18; TEMP 37; O2SAT 94
--- NOTE | 2023-10-28 16:41 | PC.NURSE ---
Resumed care of pt at 1530. Pt resting in bed quietly, family at bedside. A/ox3, respirations even and unlabored, no increased wob/sob noted, s1 and s2 heard, HR- 70s, abdomen tender on palpation. Pt aware of plan for admit and room on floor. Call wong within reach, all needs met at this time.
--- NOTE | 2023-10-28 19:26 | MHC.EDTECH ---
Tech resumed care, PT found sitting and eating, Pt assisted to bathroom
[2023-10-28 21:30] VITALS: BP 98/55; PULSE 87; RESP 20; TEMP 36.4; O2SAT 93
[2023-10-28 23:01] VITALS: BP 106/57; PULSE 83; RESP 18
[2023-10-28] MEDS: Ferrous Sulfate 324 MG TABLET.DR PO (23:21)
[2023-10-28] MEDS: risperiDONE 1 MG TABLET 4 MG PO (23:21)
[2023-10-28] MEDS: LORazepam 0.5 MG TABLET PO (23:21)
[2023-10-28] MEDS: oxyCODONE HCl Immed Release 5 MG TABLET PO (23:25)
[2023-10-29] MEDS: HYDROmorphone HCl 1 MG/ML SYRINGE 0.5 MG IVPUSH (02:32)
[2023-10-29 03:55] VITALS: BP 124/59; PULSE 88; RESP 20; TEMP 36.1; O2SAT 94
[2023-10-29] MEDS: Lactated Ringers 1,000 ML 100 ML IVCONT ×3 (06:32→20:50)
[2023-10-29 07:00] LABS: Basophils Absolute Auto 0.1 X10*3/uL (0.0-0.2); Basophils Percent Auto 0.4 % (0-2); Eosinophils Absolute Auto 0.2 X10*3/uL (0.0-0.4); Eosinophils Percent Auto 1.2 % (0-4); Hematocrit 26.1 % (37.0-47.0); Hemoglobin 8.1 g/dl (12.0-16.0); Imm Gran Abs Auto 0.04 X10*3/uL (0.00-0.03); Imm Gran Pct Auto 0.3 % (0.0-0.4); Lymphocytes Percent Auto 48.3 % (20-40); MANUAL DIFF FLAG SCAN; Mean Corpuscular Hemoglobin 23.3 pg (27.0-33.0); Monocytes Absolute Auto 0.7 X10*3/uL (0.1-1.2); Monocytes Percent Auto 5.4 % (2-11); Neutrophils Absolute Auto 6.1 x10*3/uL (2.0-8.3); Neutrophils Percent Auto 44.4 % (45-73); Platelet Count 357 X10*3/uL (160-400); Red Blood Count 3.48 X10*6/uL (4.20-5.50); Red Cell Distribution Width 17.7 % (11.0-16.0); SCAN SMEAR FLAG 1; White Blood Count 13.8 X10*3/uL (4.8-10.8)
[2023-10-29 07:01] LABS: Lymphocytes Absolute Auto 6.7 X10*3/uL (1.2-4.9)
[2023-10-29 07:12] LABS: Anion Gap 9 (12-20); Blood Urea Nitrogen 10 mg/dL (9-16); Calcium 8.7 mg/dL (8.4-10.2); Carbon Dioxide 29 mmol/L (22-29); Chloride 104 mmol/L (96-108); Creatinine Clr Calc Pharmacy 73.9; Estimated Glomerular Filt Rate > 60; Glucose Random 100 mg/dL (60-115); Potassium 4.2 mmol/L (3.3-5.1); Sodium 138 mmol/L (135-145)
[2023-10-29 08:00] VITALS: BP 98/56; PULSE 86; RESP 18; TEMP 36.9; O2SAT 92
[2023-10-29 08:49] LABS: SLIDE REVIEW VERIFIED
--- NOTE | 2023-10-29 09:41 | MHC.CM.PN ---
Addendum entered by Dianne Murphy RN 10/29/23 13:14: CM ATTEMPTED TO MEET W/PT TWO MORE TIMES SINCE INTITIAL AND NOW PT IS OFF UNIT FOR US GUIDED BIOPSY. CM ATTEMPTEED TO MEET W/GAUTAM AT NUMBER ON FILE, NO ANSWER AND DETAILED MESSAGE LEFT W/REQUEST FOR COPY OF PT'S HCP, CM CONTACTED PT'S CRITICAL CARE UNIT NURSE SARATH WHO REPORTS PT LIVES ALONE IN AN APT HAS [facility] SERVICES 2 XWK THROUGH VISITING NURSE SERVICES AND SARATH SEE'S PT ONCE A WEEK. PCP YUE TRIANA AND SARATH REPORTS PT'S SISTER HAS COPY OF HCP, HAS REQUESTED. Original Note: CM ATTEMPTED TO MEET W/PT HOWEVER NURSING/US TECH AT BEDSIDE, CM TO REVISIT.
[2023-10-29] MEDS: Folic Acid 1 MG TABLET PO (10:11)
[2023-10-29] MEDS: Docusate Sodium 100 MG CAPSULE PO ×2 (10:11→20:50)
[2023-10-29] MEDS: HYDROmorphone HCl 1 MG/ML SYRINGE IVPUSH ×2 (10:11→20:49)
[2023-10-29] MEDS: Ferrous Sulfate 324 MG TABLET.DR PO ×2 (10:12→20:50)
[2023-10-29] MEDS: LORazepam 0.5 MG TABLET PO ×2 (10:12→20:50)
[2023-10-29] MEDS: 0.9 % Sodium Chloride Flush 3 ML SYRINGE IVFLUSH ×3 (10:12→20:50)
[2023-10-29] MEDS: Tamsulosin HCL 0.4 MG CAPSULE PO (10:12)
[2023-10-29] MEDS: Nicotine 21 MG PATCH.TD24 TRANSDERMA (10:12)
[2023-10-29] MEDS: risperiDONE 1 MG TABLET PO ×2 (10:12→20:49)
[2023-10-29] MEDS: polyethylene glycoL 3350 17 GM POWD.PACK PO (10:13)
[2023-10-29 13:20] VITALS: BMI 21.4
--- NOTE | 2023-10-29 13:39 | PM.PROC ---
Brief Operative Note Date of procedure: 10/29/23 Pre-op diagnosis: Right inguinal lymphadenopathy, pelvic mass Post-op diagnosis: same Procedure: US right inguinal lymph node biopsy Very abnormal/enlarged right inguinal lymph node- 5 x 18 g cores performed and sent for path and flow. No immediate complications. Anesthesia: local
--- NOTE | 2023-10-29 13:58 | MHC.CLN ---
PT IS MODERATELY MALNOURISHED PT WITH MILDLY DEPLETED SUBCUTANEOUS FAT AND MUSCLE MASS WITH 27% SIGNIFICANT WT LOSS X 1 YEAR AND CHRONIC POOR PO INTAKE PT IS CURRENTLY NPO WHEN DIET TO ADVANCE, RECOMMEND ADDING ENSURE TID TO INCREASE KCALS SUPP TO PROVIDE 1020KCALS, 60G PROTEIN MONITOR PO INTAKE AND ENCOURAGE SUPPLEMENTS SEE ALSO FULL CLINICAL NUTRITION ASSESSMENT
[2023-10-29] MEDS: Lidocaine HCl 1 % MPF 5 ML VIAL SUBCUT (14:22)
[2023-10-29] MEDS: oxyCODONE HCl Immed Release 5 MG TABLET 10 MG PO (15:34)
[2023-10-29 15:51] VITALS: BP 95/60; PULSE 87; RESP 20; TEMP 36.1; O2SAT 92
--- NOTE | 2023-10-29 16:55 | P.PNIM_ITS ---
Subjective Subjective Date of Service: 10/29/23 Interval History: Intractable pain r/t metastatic cancer Review of Systems Patient still has intractable pain , also has urinary retention Denies any nausea vomiting Physical Exam 2 Vital Signs: Vital Signs: Last Vital Signs Temp 97.0 F 10/29/23 15:51 Pulse 87 10/29/23 15:51 Resp 20 10/29/23 15:51 BP 95/60 10/29/23 15:51 Pulse Ox 92 10/29/23 15:51 O2 Del Method Room Air 10/29/23 03:55 BMI result Body Mass Index 21.4 Appearance: Alert.? Oriented X3.? cvs: rrr, [id number] . res: clear to auscultation ,no rhonchii or wheezing abd: no rebound or guarding ,nt, bs present. ext pulses present , no cyanosis . neuro: axo3 , nonfocal. Objective Data Active Medications Acetaminophen (Acetaminophen 325 Mg Tablet) 650 mg PO Q6H PRN PRN Reason: Pain, Mild (Pain Scale 1-3), fever or headache Albuterol Sulfate (Albuterol Sulfate 90 Mcg 8 Gm Inhaler) 2 puff INHALE Q6H PRN PRN Reason: Wheezing Last Admin: 10/28/23 16:23 Dose: 2 puff Documented By: GRAYSON Calcium Carbonate (Calcium Carbonate 750 Mg Tab.Chew) 750 mg PO Q4H PRN PRN Reason: Heartburn Docusate Sodium (Docusate Sodium 100 Mg Capsule) 100 mg PO BID [facility] Last Admin: 10/29/23 10:11 Dose: 100 mg Documented By: NANCY Ferrous Sulfate (Ferrous Sulfate 324 Mg Tablet.Dr) 324 mg PO BID [facility] Last Admin: 10/29/23 10:12 Dose: 324 mg Documented By: NANCY Fluticasone/Vilanterol (Fluticasone/Vilanterol 200/25 Blst.W.Dev) 1 puff INHALE RDAILY [facility] Last Admin: 10/29/23 07:27 Dose: Not Given Documented By: [place] Non-Admin Reason: Med Not Available Folic Acid (Folic Acid 1 Mg Tablet) 1 mg PO DAILY [facility] Last Admin: 10/29/23 10:11 Dose: 1 mg Documented By: NANCY Hydromorphone HCl (Hydromorphone Hcl 1 Mg/Ml Syringe) 1 mg IVPUSH Q4H PRN; Protocol PRN Reason: Pain, Severe (Pain Scale 7-10) Last Admin: 10/29/23 10:11 Dose: 1 mg Documented By: NANCY Lactated Ringer's (Lr) 1,000 mls @ 100 mls/hr IVCONT .Q10H [facility] Last Admin: 10/29/23 12:11 Dose: 100 mls/hr Documented By: NANCY Lorazepam (Lorazepam 0.5 Mg Tablet) 0.5 mg PO BID [facility] Last Admin: 10/29/23 10:12 Dose: 0.5 mg Documented By: NANCY Magnesium Hydroxide (Milk Of Magnesia 30 Ml Oral.Susp) 30 ml PO DAILY PRN PRN Reason: Constipation Melatonin (Melatonin 3 Mg Tablet) 6 mg PO BEDTIME PRN PRN Reason: Insomnia Nicotine (Nicotine 21 Mg Patch.Td24) 21 mg TRANSDERMA DAILY [facility] Last Admin: 10/29/23 10:12 Dose: 21 mg Documented By: NANCY Ondansetron HCl (Ondansetron Hcl 4 Mg/2 Ml Vial) 4 mg IVPUSH Q8H PRN PRN Reason: Nausea and Vomiting Oxycodone HCl (Oxycodone Hcl Immed Release 5 Mg Tablet) 10 mg PO Q6H PRN PRN Reason: Pain, Moderate(Pain Scale 4-6) Last Admin: 10/29/23 15:34 Dose: 10 mg Documented By: NANCY Polyethylene Glycol (Polyethylene Glycol 3350 17 Gm Powd.Pack) 17 gm PO DAILY [facility] Last Admin: 10/29/23 10:13 Dose: 17 gm Documented By: NANCY Risperidone (Risperidone 1 Mg Tablet) 1 mg PO BID [facility] Last Admin: 10/29/23 10:12 Dose: 1 mg Documented By: NANCY Risperidone (Risperidone 1 Mg Tablet) 4 mg PO BEDTIME [facility] Last Admin: 10/28/23 23:21 Dose: 4 mg Documented By: ARMANI Sodium Chloride (0.9 % Sodium Chloride Flush 3 Ml Syringe) 3 ml IVFLUSH QSHIFT [facility] Last Admin: 10/29/23 15:35 Dose: Not Given Documented By: NANCY Non-Admin Reason: IV Running Tamsulosin HCl (Tamsulosin Hcl 0.4 Mg Capsule) 0.4 mg PO DAILY [facility] Last Admin: 10/29/23 10:12 Dose: 0.4 mg Documented By: NANCY Labs 10/29/23 06:26 10/29/23 06:26 Labs: Laboratory Results - last 24 hr 10/29/23 06:26 MCV 75.0 L MCH 23.3 L MCHC 31.0 RDW 17.7 H Plt Count 357 MPV 9.0 L Immature Gran % (Auto) 0.3 Neut % (Auto) 44.4 L Lymph % (Auto) 48.3 H [place] % (Auto) 5.4 Eos % (Auto) 1.2 Baso % (Auto) 0.4 Lymph # (Auto) 6.7 H [place] # (Auto) 0.7 Eos # (Auto) 0.2 Baso # (Auto) 0.1 Abs Immat Gran (auto) 0.04 H Absolute Neuts (auto) 6.1 Absolute Nucleated RBC 0.000 Nucleated RBC % (auto) 0.0 Smear Tech's Comments VERIFIED Anion Gap 9 L Estim Creat Clear Calc 73.9 Estimated GFR > 60 Random Glucose 100 Calcium 8.7 Assessment and Plan (1) Metastatic cancer: Status: Acute (2) Intractable pain: Status: Acute Assessment and Plan: 52-year-old female with history of schizophrenia, anxiety/depression, and mild persistent asthma who is deaf and requires ASL interpretation admitted for further management of intractable pain r/t metastatic cancer. Intractable pain r/t metastatic cancer -CT Chest/abd/pelvis 10/22 shows: -infiltrative soft tissue mass in the low pelvis/presacral region measuring 6.6 x 5.4 x 10.1 cm with invasion of the rectosigmoid colon as well as service and vagina with extension into the perineum. There also small free fluid and inflammatory changes in the presacral space. -possible metastatic disease with a small nodule in the left hemipelvis measuring 1.2 x 1.2 cm, enlarged right inguinal lymph node measuring 1.9 x 1.4 cm and enlarged right paratracheal lymph node measuring 2.4 x 2.3 cm -3 mm left upper lobe pulmonary nodule -Hypervascular left hepatic lesion measuring 2.3 x 2.7 cm pain is uncontrolled -pain management p.r.n. with adjusted IV Dilaudid and oxycodone. -oncology consult-going for biopsy today SIRS criteria resolved. -leukocytosis is chronic-improving. Tachycardia and tachypnea resolved. There is no sepsis or severe sepsis on admission, no infection schizophrenia/mood disorder -continue home medications mild persistent asthma -no exacerbation -continue Flovent, albuterol p.r.n. Urinary retention : pvr and flomax. DVT prophylaxis-Lovenox Ongoing need for hospitalization: Intractable pain/possible metastatic disease- need IV pain medications, closely monitor pain, also Quality Stroke Does the patient have a stroke diagnosis?: No VTE Prior VTE?: No VTE Risk Level:: Medical - moderate - high VTE Device Contraindication: Treatment Not Indicated VTE Drug Contraindication: N/A - Med Ordered
[2023-10-29 20:00] VITALS: BP 100/52; PULSE 89; RESP 18; TEMP 36.6; O2SAT 92
[2023-10-29] MEDS: risperiDONE 1 MG TABLET 4 MG PO (20:49)
[2023-10-30 03:34] VITALS: BP 104/62; PULSE 77; RESP 20; TEMP 36.4; O2SAT 94
[2023-10-30] MEDS: HYDROmorphone HCl 1 MG/ML SYRINGE IVPUSH ×3 (04:44→20:29)
[2023-10-30] MEDS: Lactated Ringers 1,000 ML 100 ML IVCONT (06:45)
[2023-10-30 07:34] VITALS: BP 115/59; PULSE 86; RESP 16; TEMP 36; O2SAT 95
[2023-10-30] MEDS: Fluticasone/Vilanterol 200/25 BLST.W.DEV 1 PUFF INHALE (08:06)
[2023-10-30 08:07] VITALS: PULSE 86; RESP 16; O2SAT 95
[2023-10-30] MEDS: Ascorbic Acid 250 MG TABLET PO ×2 (09:18→20:29)
[2023-10-30] MEDS: Tamsulosin HCL 0.4 MG CAPSULE PO (09:18)
[2023-10-30] MEDS: oxyCODONE HCl Immed Release 5 MG TABLET 10 MG PO ×4 (09:18→22:20)
[2023-10-30] MEDS: Ferrous Sulfate 324 MG TABLET.DR PO ×2 (09:18→20:29)
[2023-10-30] MEDS: LORazepam 0.5 MG TABLET PO ×2 (09:18→20:29)
[2023-10-30] MEDS: Nicotine 21 MG PATCH.TD24 TRANSDERMA (09:20)
[2023-10-30] MEDS: Folic Acid 1 MG TABLET 2 MG PO (09:27)
[2023-10-30] MEDS: risperiDONE 1 MG TABLET PO ×2 (09:31→20:28)
[2023-10-30 13:04] VITALS: BP 92/50; PULSE 79; RESP 20; TEMP 36.5; O2SAT 93
--- NOTE | 2023-10-30 14:48 | HO.PM.IMPN ---
Subjective Subjective Date of Service: 10/30/23 Interval History: intractable pain Review of Systems pain seems similar denies new c/o her h/h down from baseline denies any gross bleedin Physical Exam Vital Signs: Vital Signs: Last Vital Signs Temp 97.7 F 10/30/23 13:04 Pulse 79 10/30/23 13:04 Resp 20 10/30/23 13:04 BP 92/50 L 10/30/23 13:04 Pulse Ox 93 10/30/23 13:04 O2 Del Method Room Air 10/30/23 13:04 BMI result Body Mass Index 21.4 Appearance: Alert.? Oriented X3.? cvs: [id number], [id number] . res: clear to auscultation ,no rhonchii or wheezing abd: no rebound or guarding ,nt, bs present. ext pulses present , no cyanosis . neuro: axo3 , nonfocal. Objective Data Active Medications Acetaminophen (Acetaminophen 325 Mg Tablet) 650 mg PO Q6H PRN PRN Reason: Pain, Mild (Pain Scale 1-3), fever or headache Albuterol Sulfate (Albuterol Sulfate 90 Mcg 8 Gm Inhaler) 2 puff INHALE Q6H PRN PRN Reason: Wheezing Last Admin: 10/28/23 16:23 Dose: 2 puff Documented By: GRAYSON Ascorbic Acid (Ascorbic Acid 250 Mg Tablet) 250 mg PO BID [facility] Last Admin: 10/30/23 09:18 Dose: 250 mg Documented By: PADMINI Calcium Carbonate (Calcium Carbonate 750 Mg Tab.Chew) 750 mg PO Q4H PRN PRN Reason: Heartburn Docusate Sodium (Docusate Sodium 100 Mg Capsule) 100 mg PO BID [facility] Last Admin: 10/30/23 09:33 Dose: Not Given Documented By: PADMINI Non-Admin Reason: having loose stool Ferrous Sulfate (Ferrous Sulfate 324 Mg Tablet.Dr) 324 mg PO BID [facility] Last Admin: 10/30/23 09:18 Dose: 324 mg Documented By: PADMINI Fluticasone/Vilanterol (Fluticasone/Vilanterol 200/25 Blst.W.Dev) 1 puff INHALE RDAILY [facility] Last Admin: 10/30/23 08:06 Dose: 1 puff Documented By: KAREN Folic Acid (Folic Acid 1 Mg Tablet) 2 mg PO DAILY [facility] Last Admin: 10/30/23 09:27 Dose: 2 mg Documented By: PADMINI Hydromorphone HCl (Hydromorphone Hcl 1 Mg/Ml Syringe) 1 mg IVPUSH Q4H PRN; Protocol PRN Reason: Pain, Severe (Pain Scale 7-10) Last Admin: 10/30/23 09:17 Dose: 1 mg Documented By: PADMINI Lorazepam (Lorazepam 0.5 Mg Tablet) 0.5 mg PO BID [facility] Last Admin: 10/30/23 09:18 Dose: 0.5 mg Documented By: PADMINI Magnesium Hydroxide (Milk Of Magnesia 30 Ml Oral.Susp) 30 ml PO DAILY PRN PRN Reason: Constipation Melatonin (Melatonin 3 Mg Tablet) 6 mg PO BEDTIME PRN PRN Reason: Insomnia Nicotine (Nicotine 21 Mg Patch.Td24) 21 mg TRANSDERMA DAILY [facility] Last Admin: 10/30/23 09:20 Dose: 21 mg Documented By: PADMINI Ondansetron HCl (Ondansetron Hcl 4 Mg/2 Ml Vial) 4 mg IVPUSH Q8H PRN PRN Reason: Nausea and Vomiting Oxycodone HCl (Oxycodone Hcl Immed Release 5 Mg Tablet) 10 mg PO Q6H PRN PRN Reason: Pain, Moderate(Pain Scale 4-6) Last Admin: 10/30/23 09:18 Dose: 10 mg Documented By: PADMINI Polyethylene Glycol (Polyethylene Glycol 3350 17 Gm Powd.Pack) 17 gm PO DAILY [facility] Last Admin: 10/30/23 09:34 Dose: Not Given Documented By: PADMINI Non-Admin Reason: having loose stool Risperidone (Risperidone 1 Mg Tablet) 1 mg PO BID [facility] Last Admin: 10/30/23 09:31 Dose: 1 mg Documented By: PADMINI Risperidone (Risperidone 1 Mg Tablet) 4 mg PO BEDTIME [facility] Last Admin: 10/29/23 20:49 Dose: 4 mg Documented By: CRISTHIAN Sodium Chloride (0.9 % Sodium Chloride Flush 3 Ml Syringe) 3 ml IVFLUSH QSHIFT [facility] Last Admin: 10/30/23 09:34 Dose: Not Given Documented By: PADMINI Non-Admin Reason: IV Running Tamsulosin HCl (Tamsulosin Hcl 0.4 Mg Capsule) 0.4 mg PO DAILY [facility] Last Admin: 10/30/23 09:18 Dose: 0.4 mg Documented By: PADMINI Labs 10/30/23 09:02 10/29/23 06:26 Labs: Laboratory Results - last 24 hr 10/28/23 10/30/23 10:52 09:02 Smear Path Review SEE NOTE Blood Type A Positive Antibody Screen NEGATIVE Assessment and Plan (1) Metastatic cancer: Status: Acute (2) Intractable pain: Status: Acute Assessment and Plan: 52-year-old female with history of schizophrenia, anxiety/depression, and mild persistent asthma who is deaf and requires ASL interpretation admitted for further management of intractable pain r/t metastatic cancer. Intractable pain r/t metastatic cancer -CT Chest/abd/pelvis 10/22 shows: -infiltrative soft tissue mass in the low pelvis/presacral region measuring 6.6 x 5.4 x 10.1 cm with invasion of the rectosigmoid colon as well as service and vagina with extension into the perineum. There also small free fluid and inflammatory changes in the presacral space. -possible metastatic disease with a small nodule in the left hemipelvis measuring 1.2 x 1.2 cm, enlarged right inguinal lymph node measuring 1.9 x 1.4 cm and enlarged right paratracheal lymph node measuring 2.4 x 2.3 cm -3 mm left upper lobe pulmonary nodule -Hypervascular left hepatic lesion measuring 2.3 x 2.7 cm pain is uncontrolled -pain management p.r.n. with adjusted IV Dilaudid and oxycodone adjusted to scheduled for better pain control. oncology follow up. SIRS criteria resolved. -leukocytosis is chronic-improving. Tachycardia and tachypnea resolved. There is no sepsis or severe sepsis on admission, no infection schizophrenia/mood disorder -continue home medications mild persistent asthma -no exacerbation -continue Flovent, albuterol p.r.n. Urinary retention : pvr and flomax. DVT prophylaxis-Lovenox Ongoing need for hospitalization: Intractable pain/possible metastatic disease-need IV pain medications, closely monitor pain. Quality Stroke Does the patient have a stroke diagnosis?: No VTE Prior VTE?: No VTE Risk Level:: Medical - moderate - high VTE Device Contraindication: Treatment Not Indicated VTE Drug Contraindication: N/A - Med Ordered
[2023-10-30 15:44] VITALS: BP 91/55; PULSE 79; RESP 18; TEMP 37.3; O2SAT 93
[2023-10-30 19:06] VITALS: BP 96/52; PULSE 87; RESP 20; TEMP 36.5; O2SAT 92
[2023-10-30] MEDS: risperiDONE 1 MG TABLET 4 MG PO (20:29)
[2023-10-30] MEDS: 0.9 % Sodium Chloride Flush 3 ML SYRINGE IVFLUSH (20:29)
[2023-10-30] MEDS: Docusate Sodium 100 MG CAPSULE PO (20:29)
[2023-10-30] MEDS: Melatonin 3 MG TABLET 6 MG PO (22:20)
[2023-10-31] VITALS (7 sets, daily range): BP systolic 84–102; BP diastolic 52–72; PULSE 70–94; RESP 12–20; TEMP 36.4–36.9; O2SAT 92–96
[2023-10-31] MEDS: oxyCODONE HCl Immed Release 5 MG TABLET 10 MG PO ×6 (02:05→20:40)
[2023-10-31] MEDS: HYDROmorphone HCl 1 MG/ML SYRINGE IVPUSH ×4 (03:33→22:44)
--- NOTE | 2023-10-31 04:08 | PC.NURSE ---
At 1999 on 10/29, pt unable to void. Bladder scanned for >335, then straight cath'd for 300 ml. At 319 on 10/30 pt still unable to void. Bladder scanned for >494, then straight cath'd for 450 ml. Will continue to monitor.
[2023-10-31 05:53] LABS: Hematocrit 25.3 % (37.0-47.0); Hemoglobin 7.8 g/dl (12.0-16.0)
--- NOTE | 2023-10-31 07:35 | HO.PM.IMPN ---
Subjective Subjective Date of Service: 10/31/23 Interval History: intractable pain Review of Systems anemia ,softer bp asymtomatic pain not controlled. feels consitpated. Physical Exam Vital Signs: Vital Signs: Last Vital Signs Temp 98.0 F 10/31/23 03:12 Pulse 75 10/31/23 03:12 Resp 16 10/31/23 03:12 BP 96/62 10/31/23 03:12 Pulse Ox 92 10/31/23 03:12 O2 Del Method Room Air 10/31/23 03:12 BMI result Body Mass Index 21.4 Appearance: Alert.? Oriented X3.? cvs: rrr, [id number] . res: clear to auscultation ,no rhonchii or wheezing abd: no rebound or guarding ,nt, bs present. ext pulses present , no cyanosis . neuro: axo3 , nonfocal. Objective Data Active Medications Acetaminophen (Acetaminophen 325 Mg Tablet) 650 mg PO Q6H PRN PRN Reason: Pain, Mild (Pain Scale 1-3), fever or headache Albuterol Sulfate (Albuterol Sulfate 90 Mcg 8 Gm Inhaler) 2 puff INHALE Q6H PRN PRN Reason: Wheezing Last Admin: 10/28/23 16:23 Dose: 2 puff Documented By: GRAYSON Ascorbic Acid (Ascorbic Acid 250 Mg Tablet) 250 mg PO BID [facility] Last Admin: 10/30/23 20:29 Dose: 250 mg Documented By: JUAN MANUEL Calcium Carbonate (Calcium Carbonate 750 Mg Tab.Chew) 750 mg PO Q4H PRN PRN Reason: Heartburn Docusate Sodium (Docusate Sodium 100 Mg Capsule) 100 mg PO BID [facility] Last Admin: 10/30/23 20:29 Dose: 100 mg Documented By: JUAN MANUEL Ferrous Sulfate (Ferrous Sulfate 324 Mg Tablet.Dr) 324 mg PO BID [facility] Last Admin: 10/30/23 20:29 Dose: 324 mg Documented By: JUAN MANUEL Fluticasone/Vilanterol (Fluticasone/Vilanterol 200/25 Blst.W.Dev) 1 puff INHALE RDAILY [facility] Last Admin: 10/30/23 08:06 Dose: 1 puff Documented By: KAREN Folic Acid (Folic Acid 1 Mg Tablet) 2 mg PO DAILY [facility] Last Admin: 10/30/23 09:27 Dose: 2 mg Documented By: PADMINI Hydromorphone HCl (Hydromorphone Hcl 1 Mg/Ml Syringe) 1 mg IVPUSH Q4H PRN; Protocol PRN Reason: Pain, Severe (Pain Scale 7-10) Last Admin: 10/31/23 03:33 Dose: 1 mg Documented By: JUAN MANUEL Sodium Chloride (Ns) 100 mls @ 100 mls/hr IV ONCE ONE Stop: 10/31/23 08:26 Lorazepam (Lorazepam 0.5 Mg Tablet) 0.5 mg PO BID [facility] Last Admin: 10/30/23 20:29 Dose: 0.5 mg Documented By: JUAN MANUEL Magnesium Hydroxide (Milk Of Magnesia 30 Ml Oral.Susp) 30 ml PO DAILY PRN PRN Reason: Constipation Melatonin (Melatonin 3 Mg Tablet) 6 mg PO BEDTIME PRN PRN Reason: Insomnia Last Admin: 10/30/23 22:20 Dose: 6 mg Documented By: JUAN MANUEL Nicotine (Nicotine 21 Mg Patch.Td24) 21 mg TRANSDERMA DAILY [facility] Last Admin: 10/30/23 09:20 Dose: 21 mg Documented By: PADMINI Ondansetron HCl (Ondansetron Hcl 4 Mg/2 Ml Vial) 4 mg IVPUSH Q8H PRN PRN Reason: Nausea and Vomiting Oxycodone HCl (Oxycodone Hcl Immed Release 5 Mg Tablet) 10 mg PO Q4H [facility] Last Admin: 10/31/23 05:57 Dose: 10 mg Documented By: JUAN MANUEL Polyethylene Glycol (Polyethylene Glycol 3350 17 Gm Powd.Pack) 17 gm PO DAILY [facility] Last Admin: 10/30/23 09:34 Dose: Not Given Documented By: PADMINI Non-Admin Reason: having loose stool Risperidone (Risperidone 1 Mg Tablet) 1 mg PO BID [facility] Last Admin: 10/30/23 20:28 Dose: 1 mg Documented By: JUAN MANUEL Risperidone (Risperidone 1 Mg Tablet) 4 mg PO BEDTIME [facility] Last Admin: 10/30/23 20:29 Dose: 4 mg Documented By: JUAN MANUEL Sodium Chloride (0.9 % Sodium Chloride Flush 3 Ml Syringe) [facility] Admin: 10/30/23 20:29 Dose: 3 ml Documented By: JUAN MANUEL Tamsulosin HCl (Tamsulosin Hcl 0.4 Mg Capsule) 0.4 mg PO DAILY [facility] Last Admin: 10/30/23 09:18 Dose: 0.4 mg Documented By: PADMINI Labs 10/31/23 04:57 10/29/23 06:26 Labs: Laboratory Results - last 24 hr 10/28/23 10/30/23 10:52 09:02 Smear Path Review SEE NOTE Blood Type A Positive Antibody Screen NEGATIVE Crossmatch See Detail Assessment and Plan (1) Metastatic cancer: Status: Acute (2) Intractable pain: Status: Acute Assessment and Plan: 52-year-old female with history of schizophrenia, anxiety/depression, and mild persistent asthma who is deaf and requires ASL interpretation admitted for further management of intractable pain r/t metastatic cancer. Intractable pain r/t metastatic cancer -CT Chest/abd/pelvis 10/22 shows: -infiltrative soft tissue mass in the low pelvis/presacral region measuring 6.6 x 5.4 x 10.1 cm with invasion of the rectosigmoid colon as well as service and vagina with extension into the perineum. There also small free fluid and inflammatory changes in the presacral space. -possible metastatic disease with a small nodule in the left hemipelvis measuring 1.2 x 1.2 cm, enlarged right inguinal lymph node measuring 1.9 x 1.4 cm and enlarged right paratracheal lymph node measuring 2.4 x 2.3 cm -3 mm left upper lobe pulmonary nodule -Hypervascular left hepatic lesion measuring 2.3 x 2.7 cm pain is uncontrolled -pain management -added oxycodone ER 10 mg po bid , and oxycodone 10 mg q4hr, iv diludid prn oncology follow up. anemia microcytic( acute on ch) : possiblt mixed (iron def+folate),may also have component of underlying maliganancy cbc path review -possible iron def ldh normal fobt needs to send continue folate 2 mg po qd ,ironand vitamin c will add 1 prbc moniter h/h closely one reading of low bp (hypotensive ) -error ,when checked mannually it is above 90's. no sepsis. SIRS criteria resolved. -leukocytosis is chronic-improving. Tachycardia and tachypnea resolved. There is no sepsis or severe sepsis on admission, no infection schizophrenia/mood disorder -continue home medications mild persistent asthma -no exacerbation -continue Flovent, albuterol p.r.n. Urinary retention : pvr and flomax. DVT prophylaxis-Lovenox Ongoing need for hospitalization: Intractable pain/possible metastatic disease-need IV pain medications, closely monitor pain. Quality Stroke Does the patient have a stroke diagnosis?: No VTE Prior VTE?: No VTE Risk Level:: Medical - moderate - high VTE Device Contraindication: Treatment Not Indicated VTE Drug Contraindication: N/A - Med Ordered
[2023-10-31] MEDS: risperiDONE 1 MG TABLET PO ×2 (08:16→20:40)
[2023-10-31] MEDS: polyethylene glycoL 3350 17 GM POWD.PACK PO ×2 (08:16→10:55)
[2023-10-31] MEDS: LORazepam 0.5 MG TABLET PO ×2 (08:16→20:39)
[2023-10-31] MEDS: Tamsulosin HCL 0.4 MG CAPSULE PO (08:16)
[2023-10-31] MEDS: Folic Acid 1 MG TABLET 2 MG PO (08:17)
[2023-10-31] MEDS: Docusate Sodium 100 MG CAPSULE PO ×2 (08:17→20:39)
[2023-10-31] MEDS: Ascorbic Acid 250 MG TABLET PO ×2 (08:17→20:40)
[2023-10-31] MEDS: Ferrous Sulfate 324 MG TABLET.DR PO ×2 (08:17→20:41)
[2023-10-31] MEDS: Nicotine 21 MG PATCH.TD24 TRANSDERMA (08:29)
[2023-10-31] MEDS: Albumin Human 25 % 100 ML IV ×3 (08:30→20:41)
[2023-10-31] MEDS: 0.9 % Sodium Chloride Flush 3 ML SYRINGE IVFLUSH ×2 (08:32→20:37)
--- NOTE | 2023-10-31 10:36 | MHC.CLN ---
F/U DIET=REGULAR. ADDING ENSURE TID TO INCREASE NUTRITIONAL INTAKE. SUPPLEMENT PROVIDES 1050 KCALS, 60 G PROTEIN. LIMITED PO DOC SHOWING 1 MEAL X 50% AND 1 MEAL X 100%. MONITOR PO INTAKE AND ENCOURAGE SUPPLEMENTS.
[2023-10-31] MEDS: Milk of Magnesia 30 ML ORAL.SUSP PO (10:55)
[2023-10-31] MEDS: Acetaminophen 325 MG TABLET 650 MG PO (10:57)
[2023-10-31] MEDS: diphenhydrAMINE HCL 25 MG CAPSULE PO (10:57)
--- NOTE | 2023-10-31 14:36 | MHC.CM.PN ---
CM SPOKE WITH PROGRAM DIRECTOR [employer]LE[employer] SARATH WITH PT'S PERMISSION. PT IS HEARING IMPAIRED BUT IS ABLE TO READ LIPS. PT LIVES ALONE AND IS INDEPENDENT WITH MOBILITY. PT IS ACTIVE WITH [facility] FOR NURSING VISITS. +HCP AT MD OFFICE. CM WILL CALL TO REQUEST COPY. PCP DR. RAZA. DP: HOME WITH RESUMPTION OF SERVICES. IF PT DC OVER WEEKEND, SISTER WILL BE ABLE TO TRANSPORT. [facility] STAFF FROM [facility] CAN TRANSPORT. CM WILL CONTINUE TO FOLLOW FOR ANY CHANGE TO DC PLAN/NEEDS.
[2023-10-31] MEDS: oxyCODONE HCl ER 10 MG TAB.ER.12H PO (20:40)
[2023-10-31] MEDS: risperiDONE 1 MG TABLET 4 MG PO (20:40)
[2023-10-31] MEDS: Melatonin 3 MG TABLET 6 MG PO (22:08)
[2023-11-01] MEDS: oxyCODONE HCl Immed Release 5 MG TABLET 10 MG PO ×6 (03:35→21:04)
[2023-11-01] MEDS: Albumin Human 25 % 100 ML IV (03:35)
[2023-11-01 04:00] VITALS: BP 94/52; PULSE 75; RESP 16; TEMP 36.6; O2SAT 92
[2023-11-01 07:22] VITALS: BP 89/53; PULSE 75; RESP 16; TEMP 36.3; O2SAT 96
[2023-11-01 07:43] VITALS: PULSE 80; RESP 18; O2SAT 97
[2023-11-01] MEDS: Fluticasone/Vilanterol 200/25 BLST.W.DEV 1 PUFF INHALE (07:43)
[2023-11-01 08:37] VITALS: BP 92/60
[2023-11-01 08:44] LABS: Hematocrit 26.9 % (37.0-47.0); Hemoglobin 8.6 g/dl (12.0-16.0)
[2023-11-01] MEDS: Nicotine 21 MG PATCH.TD24 TRANSDERMA (08:44)
[2023-11-01] MEDS: polyethylene glycoL 3350 17 GM POWD.PACK PO (08:44)
[2023-11-01] MEDS: oxyCODONE HCl ER 10 MG TAB.ER.12H 20 MG PO ×2 (08:44→21:04)
[2023-11-01] MEDS: Ferrous Sulfate 324 MG TABLET.DR PO ×2 (08:45→21:03)
[2023-11-01] MEDS: Tamsulosin HCL 0.4 MG CAPSULE PO (08:45)
[2023-11-01] MEDS: risperiDONE 1 MG TABLET PO ×2 (08:45→21:03)
[2023-11-01] MEDS: Folic Acid 1 MG TABLET 2 MG PO (08:45)
[2023-11-01] MEDS: 0.9 % Sodium Chloride Flush 3 ML SYRINGE IVFLUSH ×3 (08:45→21:05)
[2023-11-01] MEDS: Milk of Magnesia 30 ML ORAL.SUSP PO (08:45)
[2023-11-01] MEDS: Ascorbic Acid 250 MG TABLET PO ×2 (08:45→21:03)
[2023-11-01] MEDS: LORazepam 0.5 MG TABLET PO ×2 (08:45→21:03)
[2023-11-01] MEDS: Docusate Sodium 100 MG CAPSULE PO ×2 (08:45→21:03)
--- NOTE | 2023-11-01 08:51 | HO.PM.IMPN ---
Subjective Subjective Date of Service: 11/01/23 Interval History: intractable pain Review of Systems constipation-has some small smear yesterday denies any dysphagia no fever bp recchecked 92/60 (last bp likrly errnous) Physical Exam Vital Signs: Vital Signs: Last Vital Signs Temp 97.4 F 11/01/23 07:22 Pulse 97 11/01/23 07:43 Resp 18 11/01/23 07:43 BP 92/60 11/01/23 08:37 Pulse Ox 96 11/01/23 07:22 O2 Del Method Nasal Cannula 11/01/23 07:22 O2 Flow Rate 2 11/01/23 07:22 BMI result Body Mass Index 21.4 Appearance: Alert.? Oriented X3.? cvs: rrr, [id number] . res: clear to auscultation ,no rhonchii or wheezing abd: no rebound or guarding ,nt, bs present. ext pulses present , no cyanosis . neuro: axo3 , nonfocal. Objective Data Active Medications Acetaminophen (Acetaminophen 325 Mg Tablet) 650 mg PO Q6H PRN PRN Reason: Pain, Mild (Pain Scale 1-3), fever or headache Albuterol Sulfate (Albuterol Sulfate 90 Mcg 8 Gm Inhaler) 2 puff INHALE Q6H PRN PRN Reason: Wheezing Last Admin: 10/28/23 16:23 Dose: 2 puff Documented By: GRAYSON Ascorbic Acid (Ascorbic Acid 250 Mg Tablet) 250 mg PO BID [facility] Last Admin: 11/01/23 08:45 Dose: 250 mg Documented By: KAREN Calcium Carbonate (Calcium Carbonate 750 Mg Tab.Chew) 750 mg PO Q4H PRN PRN Reason: Heartburn Docusate Sodium (Docusate Sodium 100 Mg Capsule) 100 mg PO BID [facility] Last Admin: 11/01/23 08:45 Dose: 100 mg Documented By: KAREN Ferrous Sulfate (Ferrous Sulfate 324 Mg Tablet.Dr) 324 mg PO BID [facility] Last Admin: 11/01/23 08:45 Dose: 324 mg Documented By: KAREN Fluticasone/Vilanterol (Fluticasone/Vilanterol 200/25 Blst.W.Dev) 1 puff INHALE RDAILY [facility] Last Admin: 11/01/23 07:43 Dose: 1 puff Documented By: ISELA Folic Acid (Folic Acid 1 Mg Tablet) 2 mg PO DAILY [facility] Last Admin: 11/01/23 08:45 Dose: 2 mg Documented By: KAREN Hydromorphone HCl (Hydromorphone Hcl 1 Mg/Ml Syringe) 1 mg IVPUSH Q4H PRN; Protocol PRN Reason: Pain, Severe (Pain Scale 7-10) Last Admin: 10/31/23 22:44 Dose: 1 mg Documented By: TAYLOR Albumin Human (Kedbumin 25 %) 100 mls @ 133.333 mls/hr IV Q1H [facility] Stop: 11/01/23 10:29 Sodium Chloride (Ns) 1,000 mls @ 500 mls/hr IVCONT .Q2H ONE Stop: 11/01/23 10:43 Lactulose (Lactulose 20 Gm/30 Ml Solution) 30 gm PO ONCE ONE Stop: 11/01/23 08:51 Lorazepam (Lorazepam 0.5 Mg Tablet) 0.5 mg PO BID [facility] Last Admin: 11/01/23 08:45 Dose: 0.5 mg Documented By: KAREN Magnesium Hydroxide (Milk Of Magnesia 30 Ml Oral.Susp) 30 ml PO DAILY PRN PRN Reason: Constipation Last Admin: 11/01/23 08:45 Dose: 30 ml Documented By: KAREN Melatonin (Melatonin 3 Mg Tablet) 6 mg PO BEDTIME PRN PRN Reason: Insomnia Last Admin: 10/31/23 22:08 Dose: 6 mg Documented By: TAYLOR Nicotine (Nicotine 21 Mg Patch.Td24) 21 mg TRANSDERMA DAILY [facility] Last Admin: 11/01/23 08:44 Dose: 21 mg Documented By: KAREN Ondansetron HCl (Ondansetron Hcl 4 Mg/2 Ml Vial) 4 mg IVPUSH Q8H PRN PRN Reason: Nausea and Vomiting Oxycodone HCl (Oxycodone Hcl Immed Release 5 Mg Tablet) 10 mg PO Q4H [facility] Last Admin: 11/01/23 06:25 Dose: 10 mg Documented By: TAYLOR Oxycodone HCl (Oxycodone Hcl Er 10 Mg Tab.Er.12h) 20 mg PO BID [facility] Last Admin: 11/01/23 08:44 Dose: 20 mg Documented By: KAREN Polyethylene Glycol (Polyethylene Glycol 3350 17 Gm Powd.Pack) 17 gm PO DAILY [facility] Last Admin: 11/01/23 08:44 Dose: 17 gm Documented By: KAREN Risperidone (Risperidone 1 Mg Tablet) 1 mg PO BID [facility] Last Admin: 11/01/23 08:45 Dose: 1 mg Documented By: KAREN Risperidone (Risperidone 1 Mg Tablet) 4 mg PO BEDTIME [facility] Last Admin: 10/31/23 20:40 Dose: 4 mg Documented By: TAYLOR Sodium Chloride (0.9 % Sodium Chloride Flush 3 Ml Syringe) 3 ml IVFLUSH QSHIFT [facility] Last Admin: 11/01/23 08:45 Dose: 3 ml Documented By: KAREN Labs 11/01/23 08:37 10/29/23 06:26 Labs: Laboratory Results - last 24 hr 10/29/23 10/30/23 13:38 09:02 Leuk/Lym Interpretation See Note Blood Type A Positive Antibody Screen NEGATIVE Crossmatch See Detail Assessment and Plan (1) Metastatic cancer: Status: Acute (2) Intractable pain: Status: Acute Assessment and Plan: 52-year-old female with history of schizophrenia, anxiety/depression, and mild persistent asthma who is deaf and requires ASL interpretation admitted for further management of intractable pain r/t metastatic cancer. Intractable pain r/t metastatic cancer -CT Chest/abd/pelvis 10/22 shows: -infiltrative soft tissue mass in the low pelvis/presacral region measuring 6.6 x 5.4 x 10.1 cm with invasion of the rectosigmoid colon as well as service and vagina with extension into the perineum. There also small free fluid and inflammatory changes in the presacral space. -possible metastatic disease with a small nodule in the left hemipelvis measuring 1.2 x 1.2 cm, enlarged right inguinal lymph node measuring 1.9 x 1.4 cm and enlarged right paratracheal lymph node measuring 2.4 x 2.3 cm -3 mm left upper lobe pulmonary nodule -Hypervascular left hepatic lesion measuring 2.3 x 2.7 cm pain is uncontrolled -pain management -added oxycodone ER 10 mg po bid , and oxycodone 10 mg q4hr, iv diludid prn oncology follow up. anemia microcytic( acute on ch) : possiblt mixed (iron def+folate),may also have component of underlying maliganancy cbc path review -possible iron def ldh normal fobt needs to send continue folate 2 mg po qd ,ironand vitamin c given 11 prbc -h/h is 8.6/26.9 moniter h/h closely one reading of low bp (hypotensive ) -error ,when checked mannually it is above 90's. no sepsis. will add ns 500 mlx1 . SIRS criteria resolved. -leukocytosis is chronic-improving. Tachycardia and tachypnea resolved. There is no sepsis or severe sepsis on admission, no infection schizophrenia/mood disorder -continue home medications mild persistent asthma -no exacerbation -continue Flovent, albuterol p.r.n. Urinary retention : pvr and flomax. DVT prophylaxis-Lovenox Ongoing need for hospitalization: Intractable pain/possible metastatic disease-need IV pain medications, closely monitor pain. Quality Stroke Does the patient have a stroke diagnosis?: No VTE Prior VTE?: No VTE Risk Level:: Medical - moderate - high VTE Device Contraindication: Treatment Not Indicated VTE Drug Contraindication: N/A - Med Ordered
[2023-11-01] MEDS: 0.9 % Sodium Chloride 1,000 ML 500 ML IVCONT (08:56)
[2023-11-01] MEDS: Lactulose 20 GM/30 ML SOLUTION 30 GM PO (08:59)
[2023-11-01] MEDS: Albumin Human 25 % 100 ML 133.33 ML IV ×2 (11:24→12:15)
--- NOTE | 2023-11-01 12:49 | PM.HEMONCPN ---
Medical Summary - Medical Summary Date of Service: 11/01/23 Chief complaint: pain and malignancy Primary Care Provider: Sneha Li MD Medical Summary: DIAGNOSIS: INTRA-ABDOMINAL MALIGNANCY. Interval History Interval history: Yanna Power is a 52 year old lady admitted to the hospital with the abdominal pain. Unfortunately she is deaf and requires ASL interpretation. She presented to the ED today, accompanied by mental health worker from [facility], [place], for evaluation of diffuse severe pain from the neck down, worst in the abdomen. seismic interpreter Abhinav [id number] used during exam and interview. She states that she has been experiencing 10/10 pain for several weeks. She has also lost over 20 lb unintentionally over the last month. She states she does experience some anorexia and is only eating about 1 meal per day but is tolerating fluids. She has been following with her PCP with recent CT chest/abdomen/pelvis showing infiltrative soft tissue mass in the presacral region invading the rectosigmoid colon as well as the cervix and vagina with extension into the perineum as well as possible metastatic lesions in the left hepatic lobe, left hemipelvis and left upper lung. PCP recommended patient come to the ED for IV pain medication. She has been following with Dr. Dorsey previously due to chronic leukocytosis with next steps including PET scan and biopsy however imaging results are more recent. Since arrival, patient with soft blood pressures but no hypotension, mildly tachycardic to 106. Vitals otherwise within normal limits. DATABASE: She has a leukocytosis of 16.4 which is chronic. H/H 9.5/30.2%, MCV 74.8. Platelets 412. In the ED has recieved multiple doses of IV morphine, ketorolac. PAST MEDICAL HISTORY: She was recently seen by Dr. Dorsey on 10/19. Told of elevated WBC count in 2019. WBC count ranging from 15-23 K with increase in lymphocytes. History of recurrent urinary tract infections. No prednisone use. Chronic smoker/marijuana use. Blood for flow cytometry showed B-cell lymphoid expansion with no definite clonal lymphoid population detected. Polyclonal B-cell lymphocytosis. LDH mildly elevated at 244, serum protein electrophoresis showed a faint M spike. Beta 2 microglobulin mildly elevated at 2.59 mg/L. Interval history: Patient has been sent by her PCP for recent findings of right groin lymph node enlargement and a pretracheal lymph node enlargement. She was found noncontrast CT chest performed for lung cancer screening to have an enlarged pretracheal lymph node as per report, official CT scan report not available. Patient noticed a palpable lymph node in her right groin, she says it is somewhat tender but not significantly. This has been present for several weeks, not growing in size. She reports loss of appetite and weight loss. She has had intermittent hemorrhoidal bleeding. She has not yet undergone colonoscopy. She is postmenopausal. She denies any difficulty swallowing. She was seen by ENT surgeon this week and is awaiting biopsy or excision. [facility] Medical History: schizophrenia, anxiety/depression, and mild persistent asthma. Chronic pain of left knee Congenital deafness Dyslipidemia History of gallbladder disease Hx of Lyme disease Low vitamin D level Mental health disorder Surgical History: History of cholecystectomy Hx of appendectomy Hx of foot surgery Hx of tubal ligation Family History: Mother Hypertension Social History: Living Situation History: Household Members: Spouse Household Members: None Housing: Apartment Alcohol History Details: 1. How often do you have a drink containing alcohol?: a. Never Tobacco History: Patient Tobacco Use Status: Current everyday Tobacco Tobacco use type: Cigarette Cigarette Packs Per Day: 1 Substance Use History: Use of substances other than those prescribed or required for medical reasons: No Substance Use Type: Marijuana Review of Systems - Constitutional Reports fatigue, Reports lack of energy, Denies night sweats, Reports weight loss - ENT Denies dysphagia, Denies facial pain, Denies headache(s) - Cardiovascular Denies chest pain - Respiratory Denies cough - Gastrointestinal Reports gastrointestinal complaints, abdominal pain, Reports bright, red blood in stools Review of Systems - Constitutional Reports anorexia - Cardiovascular Reports fast heart rate - Respiratory Reports dyspnea on exertion - Gastrointestinal Reports abdominal pain - Genitourinary Reports urinary incontinence - Neurologic Denies sensory deficit [facility] Medical History: Medical History (Last Reviewed 10/31/23 @ 13:16 by Zaid Rocha MD) Asthma Chronic pain of left knee Congenital deafness Dyslipidemia History of gallbladder disease Hx of Lyme disease Low vitamin D level Mental health disorder Schizophrenia Functional capacity: uses cane/walker Family History: Family History (Last Reviewed 10/28/23 @ 15:04 by SONU Lujan) Mother Hypertension Surgical History: Surgical History (Last Reviewed 10/28/23 @ 15:04 by SONU Lujan) History of cholecystectomy Hx of appendectomy Hx of foot surgery Hx of tubal ligation Social History: Social History (Last Reviewed 10/28/23 @ 15:04 by SONU Lujan) Living Situation History: Household Members: None Housing: Apartment Do you presently have visiting nurse or other home services: Yes Do you presently have visiting nurse or other home services comment: followed by [facility] per records Tobacco History: Patient Tobacco Use Status: Current everyday Tobacco Tobacco use type: Cigarette Cigarette Packs Per Day: 1 Substance Use History: Substance Use Type: Marijuana Occupation Assessmet: service: No Current occupational status: disabled Home Medications and Allergies Current Medications: Current Medications Acetaminophen (Acetaminophen 325 Mg Tablet) 650 mg PO Q6H PRN PRN Reason: Pain, Mild (Pain Scale 1-3), fever or headache Albuterol Sulfate (Albuterol Sulfate 90 Mcg 8 Gm Inhaler) 2 puff INHALE Q6H PRN PRN Reason: Wheezing Last Admin: 10/28/23 16:23 Dose: 2 puff Ascorbic Acid (Ascorbic Acid 250 Mg Tablet) 250 mg PO BID [facility] Last Admin: 11/01/23 08:45 Dose: 250 mg Calcium Carbonate (Calcium Carbonate 750 Mg Tab.Chew) 750 mg PO Q4H PRN PRN Reason: Heartburn Docusate Sodium (Docusate Sodium 100 Mg Capsule) 100 mg PO BID [facility] Last Admin: 11/01/23 08:45 Dose: 100 mg Ferrous Sulfate (Ferrous Sulfate 324 Mg Tablet.Dr) 324 mg PO BID [facility] Last Admin: 11/01/23 08:45 Dose: 324 mg Fluticasone/Vilanterol (Fluticasone/Vilanterol 200/25 Blst.W.Dev) 1 puff INHALE RDAILY [facility] Last Admin: 11/01/23 07:43 Dose: 1 puff Folic Acid (Folic Acid 1 Mg Tablet) 2 mg PO DAILY [facility] Last Admin: 11/01/23 08:45 Dose: 2 mg Hydromorphone HCl (Hydromorphone Hcl 1 Mg/Ml Syringe) 1 mg IVPUSH Q4H PRN; Protocol PRN Reason: Pain, Severe (Pain Scale 7-10) Last Admin: 10/31/23 22:44 Dose: 1 mg Lorazepam (Lorazepam 0.5 Mg Tablet) 0.5 mg PO BID [facility] Last Admin: 11/01/23 08:45 Dose: 0.5 mg Magnesium Hydroxide (Milk Of Magnesia 30 Ml Oral.Susp) 30 ml PO DAILY PRN PRN Reason: Constipation Last Admin: 11/01/23 08:45 Dose: 30 ml Melatonin (Melatonin 3 Mg Tablet) 6 mg PO BEDTIME PRN PRN Reason: Insomnia Last Admin: 10/31/23 22:08 Dose: 6 mg Nicotine (Nicotine 21 Mg Patch.Td24) 21 mg TRANSDERMA DAILY [facility] Last Admin: 11/01/23 08:44 Dose: 21 mg Ondansetron HCl (Ondansetron Hcl 4 Mg/2 Ml Vial) 4 mg IVPUSH Q8H PRN PRN Reason: Nausea and Vomiting Oxycodone HCl (Oxycodone Hcl Immed Release 5 Mg Tablet) 10 mg PO Q4H [facility] Last Admin: 11/01/23 11:02 Dose: 10 mg Oxycodone HCl (Oxycodone Hcl Er 10 Mg Tab.Er.12h) 20 mg PO BID [facility] Last Admin: 11/01/23 08:44 Dose: 20 mg Polyethylene Glycol (Polyethylene Glycol 3350 17 Gm Powd.Pack) 17 gm PO DAILY [facility] Last Admin: 11/01/23 08:44 Dose: 17 gm Risperidone (Risperidone 1 Mg Tablet) 1 mg PO BID [facility] Last Admin: 11/01/23 08:45 Dose: 1 mg Risperidone (Risperidone 1 Mg Tablet) 4 mg PO BEDTIME [facility] Last Admin: 10/31/23 20:40 Dose: 4 mg Sodium Biphosphate/Sodium Phosphate (Sodium Phosphate,[place]rest-Dibasic 133 Ml Enema) 133 ml [place] ONCE PRN PRN Reason: Constipation Sodium Chloride (0.9 % Sodium Chloride Flush 3 Ml Syringe) 3 ml IVFLUSH QSHIFT [facility] Last Admin: 11/01/23 08:45 Dose: 3 ml Home Medications ?Medication ?Instructions ?Recorded ?Confirmed ?Type albuterol sulfate 90 mcg/actuation 2 puff PO Q6H PRN Wheezing 02/25/20 10/28/23 History aerosol inhaler risperidone 4 mg tablet 4 mg PO BEDTIME 02/25/20 10/28/23 History lorazepam 0.5 mg tablet 0.5 mg PO BID 07/17/23 10/28/23 History acetaminophen 500 mg tablet 500 - 1,000 mg PO Q8-12H PRN Pain 10/28/23 10/28/23 History fluticasone 500 mcg-salmeterol 50 1 inh inhalation BID 10/28/23 10/28/23 History mcg/dose blistr powdr for inhalation (Advair Diskus) nicotine 21 mg/24 hr daily 1 patch transdermal DAILY 10/28/23 10/28/23 History transdermal patch risperidone 1 mg tablet 1 mg PO BID 10/28/23 10/28/23 History Allergies Allergy/AdvReac Type Severity Reaction Status Date / Time No Known Allergies Allergy Verified 10/28/23 10:36 [No Known Allergies*] Exam Vital signs: Vital Signs Temp 97.4 F 11/01/23 07:22 Pulse 97 11/01/23 07:43 Resp 18 11/01/23 07:43 BP 92/60 11/01/23 08:37 Pulse Ox 96 11/01/23 07:22 O2 Del Method Nasal Cannula 11/01/23 07:22 O2 Flow Rate 2 11/01/23 07:22 Intake & Output 10/31/23 11/01/23 11/01/23 18:59 06:59 18:59 Intake Total 890 / 2490 1600 / 2490 1100 / 1100 Output Total 800 / 800 Balance 890 / 1690 800 / 1690 1100 / 1100 Urine Output (Average ml/kg/hr) 1.25 1.25 Intake: Intake, Oral Amount 240 / 1640 1400 / 1640 Intake (Blood Product) Amount 350 / 350 Red Blood Cells (E0336) Unit 350 / 350 [id number] Intake, IV Amount 300 / 500 200 / 500 1100 / 1100 0.9 % Sodium Chloride 100 ml @ 100 / 100 100 mls/hr IV ONCE ONE Rx#: [id number] Albumin Human 25 % 100 ml @ 133 200 / 400 200 / 400 100 / 100 .333 mls/hr IV Q1H [place] Rx#: [id number] 0.9 % Sodium Chloride 1,000 ml 1000 / 1000 @ 500 mls/hr IVCONT .Q2H ONE Rx #:[id number] Output: Output, Urine Amount 800 / 800 Other: Breakfast % Eaten 25% Dinner % Eaten 100% Eating (Feeding) Ability Independent Independent Urine Bedside Commode Urine Color Yellow Last Bowel Movement 10/30/23 10/31/23 Weight 53.2 kg BMI result Body Mass Index 21.4 - Constitutional Present: no acute distress, moderate distress - Routine HEENT Exam Head: Present: atraumatic, normal inspection, normocephalic ENT: Present: mucous membranes moist - Routine Neck Exam Present: full ROM - Routine Cardiovascular Exam Cardiovascular: Present: RRR, S1, S2 - Routine Abdominal Exam Present: nontender - Routine Extremities Exam Present: nontender Data - Labs CBC & Chem 7: 11/01/23 08:37 10/29/23 06:26 Labs: Laboratory Last Values WBC 13.8 X10*3/uL (4.8-10.8) H 10/29/23 06:26 RBC 3.48 X10*6/uL (4.20-5.50) L 10/29/23 06:26 Hgb 8.6 g/dl (12.0-16.0) L 11/01/23 08:37 Hct 26.9 % (37.0-47.0) L 11/01/23 08:37 MCV 75.0 fL (80.0-98.0) L 10/29/23 06:26 MCH 23.3 pg (27.0-33.0) L 10/29/23 06:26 MCHC 31.0 g/dl (31.0-35.0) 10/29/23 06:26 RDW 17.7 % (11.0-16.0) H 10/29/23 06:26 Plt Count 357 X10*3/uL (160-400) 10/29/23 06:26 MPV 9.0 fL (9.4-12.3) L 10/29/23 06:26 Immature Gran % (Auto) 0.3 % (0.0-0.4) 10/29/23 06:26 Neut % (Auto) 44.4 % (45-73) L 10/29/23 06:26 Lymph % (Auto) 48.3 % (20-40) H 10/29/23 06:26 Forrest % (Auto) 5.4 % (2-11) 10/29/23 06:26 Eos % (Auto) 1.2 % (0-4) 10/29/23 06:26 Baso % (Auto) 0.4 % (0-2) 10/29/23 06:26 Lymph # (Auto) 6.7 X10*3/uL (1.2-4.9) H 10/29/23 06:26 Forrest # (Auto) 0.7 X10*3/uL (0.1-1.2) 10/29/23 06:26 Eos # (Auto) 0.2 X10*3/uL (0.0-0.4) 10/29/23 06:26 Baso # (Auto) 0.1 X10*3/uL (0.0-0.2) 10/29/23 06:26 Abs Immat Gran (auto) 0.04 X10*3/uL (0.00-0.03) H 10/29/23 06:26 Absolute Neuts (auto) 6.1 x10*3/uL (2.0-8.3) 10/29/23 06:26 Absolute Nucleated RBC 0.000 X10*3/uL (0.0-0.012) 10/29/23 06:26 Nucleated RBC % (auto) 0.0 /100WBC (0.0-0.2) 10/29/23 06:26 Smear Tech's Comments VERIFIED 10/29/23 06:26 Smear Path Review SEE NOTE 10/28/23 10:52 Sodium 138 mmol/L (135-145) 10/29/23 06:26 Potassium 4.2 mmol/L (3.3-5.1) 10/29/23 06:26 Chloride 104 mmol/L (96-108) 10/29/23 06:26 Carbon Dioxide 29 mmol/L (22-29) 10/29/23 06:26 Anion Gap 9 (12-20) L 10/29/23 06:26 BUN 10 mg/dL (9-16) 10/29/23 06:26 Creatinine 0.72 mg/dL (0.5-1.4) 10/29/23 06:26 Estim Creat Clear Calc 73.9 10/29/23 06:26 Estimated GFR > 60 10/29/23 06:26 Random Glucose 100 mg/dL (60-115) 10/29/23 06:26 Calcium 8.7 mg/dL (8.4-10.2) 10/29/23 06:26 Iron 10 mcg/dL (30-160) L 10/28/23 10:52 TIBC 175 mcg/dL (228-428) L 10/28/23 10:52 % Saturation 6 % (15-50) L 10/28/23 10:52 Unsat Iron Binding 165 ug/dL 10/28/23 10:52 Ferritin 34 ng/mL (10-250) 10/28/23 10:52 Total Bilirubin 0.2 mg/dL (0.0-1.0) 10/28/23 10:52 AST 10 U/L (5-31) 10/28/23 10:52 ALT 5 U/L (0-31) 10/28/23 10:52 Alkaline Phosphatase 89 U/L (39-117) 10/28/23 10:52 Total Protein 6.6 g/dL (6.5-8.0) 10/28/23 10:52 Albumin 3.2 g/dL (3.5-5.0) L 10/28/23 10:52 Carcinoembryonic Ag 2.00 ng/mL 10/28/23 10:52 Leuk/Lym Interpretation See Note 10/29/23 13:38 Blood Type A Positive 10/30/23 09:02 Antibody Screen NEGATIVE 10/30/23 09:02 Crossmatch See Detail 10/30/23 09:02 Assessment and Plan Patient Active problem list reviewed?: Yes (1) Metastatic cancer Status: Acute Assessment and plan: This is a pleasant 52-year-old unfortunate lady with recent diagnosis of intra-abdominal malignancy. CT scan of the abdomen pelvis and chest on 10/22 revealed: Infiltrative soft tissue mass in the low pelvis/presacral region measuring 6.6 x 5.4 x 10.1 cm with invasion of the rectosigmoid colon as well as the cervix and vagina. There is extension into the perineum. Small free fluid and inflammatory changes in the presacral space. This most likely represents neoplasm. PET/CT is recommended. There is possible metastatic disease with a small nodule in the left hemipelvis measuring 1.2 x 1.2 cm, an enlarged right inguinal lymph node measuring 1.9 x 1.4 cm and an enlarged right paratracheal lymph node measuring 2.4 x 2.3 cm. 3 mm left upper lobe pulmonary nodule is nonspecific. Hypervascular left hepatic lesion measuring 2.3 x 2.7 cm may be further characterized with MRI. Splenomegaly. Patient was being worked up as an outpatient. She was actually scheduled for a biopsy tomorrow. PLAN: To proceed with IR guided biopsy in the a.m. She can be kept NPO overnight. Further plan will depend upon the sac primary tumor found. Meanwhile will check tumor markers. Address pain control and symptom management as you are doing. Thank you for the consult, Will follow along with you, Thank you, SHAKIRA dietrich. - Time Spent With Patient Time Spent with Patient (in minutes): 15
[2023-11-01 15:20] VITALS: BP 98/56; PULSE 76; RESP 20; TEMP 36.6; O2SAT 96
[2023-11-01 19:21] VITALS: BP 116/60; PULSE 73; RESP 18; TEMP 37.2; O2SAT 97
[2023-11-01] MEDS: HYDROmorphone HCl 1 MG/ML SYRINGE IVPUSH (19:44)
[2023-11-01] MEDS: risperiDONE 1 MG TABLET 4 MG PO (21:03)
[2023-11-01] MEDS: Melatonin 3 MG TABLET 6 MG PO (22:07)
[2023-11-02 03:31] VITALS: BP 126/71; PULSE 77; RESP 18; TEMP 36.4; O2SAT 94
[2023-11-02] MEDS: oxyCODONE HCl Immed Release 5 MG TABLET 10 MG PO ×6 (03:32→22:03)
[2023-11-02 07:16] VITALS: BP 97/50; PULSE 78; RESP 16; TEMP 36.2; O2SAT 93
[2023-11-02 07:47] LABS: Hematocrit 27.9 % (37.0-47.0); Hemoglobin 8.6 g/dl (12.0-16.0)
[2023-11-02] MEDS: Fluticasone/Vilanterol 200/25 BLST.W.DEV 1 PUFF INHALE (07:47)
[2023-11-02 07:49] VITALS: PULSE 89; RESP 18; O2SAT 96
[2023-11-02] MEDS: Docusate Sodium 100 MG CAPSULE PO ×2 (08:22→20:09)
[2023-11-02] MEDS: oxyCODONE HCl ER 10 MG TAB.ER.12H 20 MG PO ×2 (08:22→20:09)
[2023-11-02] MEDS: Nicotine 21 MG PATCH.TD24 TRANSDERMA (08:22)
[2023-11-02] MEDS: Ascorbic Acid 250 MG TABLET PO ×2 (08:22→20:09)
[2023-11-02] MEDS: LORazepam 0.5 MG TABLET PO ×2 (08:23→20:10)
[2023-11-02] MEDS: 0.9 % Sodium Chloride Flush 3 ML SYRINGE IVFLUSH ×3 (08:23→20:13)
[2023-11-02] MEDS: Folic Acid 1 MG TABLET 2 MG PO (08:23)
[2023-11-02] MEDS: polyethylene glycoL 3350 17 GM POWD.PACK PO (08:23)
[2023-11-02] MEDS: Ferrous Sulfate 324 MG TABLET.DR PO ×2 (08:23→20:09)
[2023-11-02] MEDS: risperiDONE 1 MG TABLET PO ×2 (08:23→20:08)
--- NOTE | 2023-11-02 11:56 | HO.PM.IMPN ---
Subjective Subjective Date of Service: 11/02/23 Interval History: intractable pain,constipation,anemia Review of Systems seems improving-pain seems somewhat improving h/h stable passing bm's Physical Exam Vital Signs: Vital Signs: Last Vital Signs Temp 97.1 F 11/02/23 07:16 Pulse 89 11/02/23 07:49 Resp 18 11/02/23 07:49 BP 97/50 L 11/02/23 07:16 Pulse Ox 93 11/02/23 07:16 O2 Del Method Room Air 11/02/23 07:16 O2 Flow Rate 2 11/02/23 03:31 BMI result Body Mass Index 21.4 Appearance: Alert.? Oriented X3.? cvs: rrr, [id number] . res: clear to auscultation ,no rhonchii or wheezing abd: no rebound or guarding ,nt, bs present. ext pulses present , no cyanosis . neuro: axo3 , nonfocal. Objective Data Active Medications Acetaminophen (Acetaminophen 325 Mg Tablet) 650 mg PO Q6H PRN PRN Reason: Pain, Mild (Pain Scale 1-3), fever or headache Albuterol Sulfate (Albuterol Sulfate 90 Mcg 8 Gm Inhaler) 2 puff INHALE Q6H PRN PRN Reason: Wheezing Last Admin: 10/28/23 16:23 Dose: 2 puff Documented By: GRAYSON Ascorbic Acid (Ascorbic Acid 250 Mg Tablet) 250 mg PO BID [facility] Last Admin: 11/02/23 08:22 Dose: 250 mg Documented By: KAREN Calcium Carbonate (Calcium Carbonate 750 Mg Tab.Chew) 750 mg PO Q4H PRN PRN Reason: Heartburn Docusate Sodium (Docusate Sodium 100 Mg Capsule) 100 mg PO BID [facility] Last Admin: 11/02/23 08:22 Dose: 100 mg Documented By: KAREN Ferrous Sulfate (Ferrous Sulfate 324 Mg Tablet.Dr) 324 mg PO BID [facility] Last Admin: 11/02/23 08:23 Dose: 324 mg Documented By: KAREN Fluticasone/Vilanterol (Fluticasone/Vilanterol 200/25 Blst.W.Dev) 1 puff INHALE RDAILY [facility] Last Admin: 11/02/23 07:47 Dose: 1 puff Documented By: ISELA Folic Acid (Folic Acid 1 Mg Tablet) 2 mg PO DAILY [facility] Last Admin: 11/02/23 08:23 Dose: 2 mg Documented By: KAREN Hydromorphone HCl (Hydromorphone Hcl 1 Mg/Ml Syringe) 1 mg IVPUSH Q4H PRN; Protocol PRN Reason: Pain, Severe (Pain Scale 7-10) Last Admin: 11/01/23 19:44 Dose: 1 mg Documented By: TAYLOR Lorazepam (Lorazepam 0.5 Mg Tablet) 0.5 mg PO BID [facility] Last Admin: 11/02/23 08:23 Dose: 0.5 mg Documented By: KAREN Magnesium Hydroxide (Milk Of Magnesia 30 Ml Oral.Susp) 30 ml PO DAILY PRN PRN Reason: Constipation Last Admin: 11/01/23 08:45 Dose: 30 ml Documented By: KAREN Melatonin (Melatonin 3 Mg Tablet) 6 mg PO BEDTIME PRN PRN Reason: Insomnia Last Admin: 11/01/23 22:07 Dose: 6 mg Documented By: TAYLOR Nicotine (Nicotine 21 Mg Patch.Td24) 21 mg TRANSDERMA DAILY [facility] Last Admin: 11/02/23 08:22 Dose: 21 mg Documented By: KAREN Ondansetron HCl (Ondansetron Hcl 4 Mg/2 Ml Vial) 4 mg IVPUSH Q8H PRN PRN Reason: Nausea and Vomiting Oxycodone HCl (Oxycodone Hcl Immed Release 5 Mg Tablet) 10 mg PO Q4H [facility] Last Admin: 11/02/23 10:12 Dose: 10 mg Documented By: KAREN Oxycodone HCl (Oxycodone Hcl Er 10 Mg Tab.Er.12h) 20 mg PO BID [facility] Last Admin: 11/02/23 08:22 Dose: 20 mg Documented By: KAREN Polyethylene Glycol (Polyethylene Glycol 3350 17 Gm Powd.Pack) 17 gm PO DAILY [facility] Last Admin: 11/02/23 08:23 Dose: 17 gm Documented By: KAREN Risperidone (Risperidone 1 Mg Tablet) 1 mg PO BID [facility] Last Admin: 11/02/23 08:23 Dose: 1 mg Documented By: KAREN Risperidone (Risperidone 1 Mg Tablet) 4 mg PO BEDTIME [facility] Last Admin: 11/01/23 21:03 Dose: 4 mg Documented By: TAYLOR Sodium Biphosphate/Sodium Phosphate (Sodium Phosphate,[place]-Dibasic 133 Ml Enema) 133 ml [place] ONCE PRN PRN Reason: Constipation Sodium Chloride (0.9 % Sodium Chloride Flush 3 Ml Syringe) 3 ml IVFLUSH QSHIFT [facility] Last Admin: 11/02/23 08:23 Dose: 3 ml Documented By: THEAOS Labs 11/02/23 07:24 10/29/23 06:26 Assessment and Plan (1) Metastatic cancer: Status: Acute (2) Intractable pain: Status: Acute Assessment and Plan: 52-year-old female with history of schizophrenia, anxiety/depression, and mild persistent asthma who is deaf and requires ASL interpretation admitted for further management of intractable pain r/t metastatic cancer. Intractable pain r/t metastatic cancer -CT Chest/abd/pelvis 10/22 shows: -infiltrative soft tissue mass in the low pelvis/presacral region measuring 6.6 x 5.4 x 10.1 cm with invasion of the rectosigmoid colon as well as service and vagina with extension into the perineum. There also small free fluid and inflammatory changes in the presacral space. -possible metastatic disease with a small nodule in the left hemipelvis measuring 1.2 x 1.2 cm, enlarged right inguinal lymph node measuring 1.9 x 1.4 cm and enlarged right paratracheal lymph node measuring 2.4 x 2.3 cm -3 mm left upper lobe pulmonary nodule -Hypervascular left hepatic lesion measuring 2.3 x 2.7 cm pain is uncontrolled -pain management -added oxycodone ER 10 mg po bid , and oxycodone 10 mg q4hr, iv diludid prn oncology follow up. anemia microcytic( acute on ch) : possiblt mixed (iron def+folate),may also have component of underlying maliganancy cbc path review -possible iron def ldh normal fobt needs to send continue folate 2 mg po qd ,ironand vitamin c given 1 prbc -h/h is 8.6/26.9 moniter h/h closely one reading of low bp (hypotensive ) -error ,when checked mannually it is above 90's. no sepsis. will add ns 500 mlx1 . SIRS criteria resolved. -leukocytosis is chronic-improving. Tachycardia and tachypnea resolved. There is no sepsis or severe sepsis on admission, no infection schizophrenia/mood disorder -continue home medications mild persistent asthma -no exacerbation -continue Flovent, albuterol p.r.n. Urinary retention : pvr and flomax. DVT prophylaxis-Lovenox Ongoing need for hospitalization: Intractable pain/possible metastatic disease-need IV pain medications, closely monitor pain. Quality Stroke Does the patient have a stroke diagnosis?: No VTE Prior VTE?: No VTE Risk Level:: Medical - moderate - high VTE Device Contraindication: Treatment Not Indicated VTE Drug Contraindication: N/A - Med Ordered
[2023-11-02 15:11] VITALS: BP 91/50; PULSE 81; RESP 18; TEMP 36.3; O2SAT 96
[2023-11-02 19:30] VITALS: BP 100/57; PULSE 85; RESP 17; TEMP 36.4; O2SAT 95
[2023-11-02] MEDS: risperiDONE 1 MG TABLET 4 MG PO (20:10)
[2023-11-02] MEDS: Melatonin 3 MG TABLET 6 MG PO (20:10)
[2023-11-03] VITALS (9 sets, daily range): BP systolic 80–107; BP diastolic 50–60; PULSE 67–81; RESP 14–20; TEMP 36.2–37.2; O2SAT 93–95
[2023-11-03] MEDS: oxyCODONE HCl Immed Release 5 MG TABLET 10 MG PO ×6 (03:56→21:47)
[2023-11-03] MEDS: Fluticasone/Vilanterol 200/25 BLST.W.DEV 1 PUFF INHALE (08:31)
[2023-11-03] MEDS: Ferrous Sulfate 324 MG TABLET.DR PO ×2 (09:18→20:26)
[2023-11-03] MEDS: Folic Acid 1 MG TABLET 2 MG PO (09:18)
[2023-11-03] MEDS: risperiDONE 1 MG TABLET PO ×2 (09:18→20:26)
[2023-11-03] MEDS: Ascorbic Acid 250 MG TABLET PO ×2 (09:18→20:26)
[2023-11-03] MEDS: polyethylene glycoL 3350 17 GM POWD.PACK PO (09:19)
[2023-11-03] MEDS: oxyCODONE HCl ER 10 MG TAB.ER.12H 20 MG PO ×2 (09:19→20:26)
[2023-11-03] MEDS: Docusate Sodium 100 MG CAPSULE PO ×2 (09:19→20:26)
[2023-11-03] MEDS: LORazepam 0.5 MG TABLET PO ×2 (09:19→20:26)
[2023-11-03] MEDS: 0.9 % Sodium Chloride Flush 3 ML SYRINGE IVFLUSH ×2 (09:20→20:35)
[2023-11-03] MEDS: Nicotine 21 MG PATCH.TD24 TRANSDERMA (09:39)
--- NOTE | 2023-11-03 11:00 | HO.PM.IMPN ---
Subjective Subjective Date of Service: 11/03/23 Interval History: anemia boderline soft bp. Review of Systems still says intractable pain -even though most of times seems comfortable but still says significant pain( also difficult to assess -need mechanical systems designer every time) has haemorroids -bleedin on wipe . denies any dizziness or chest pain Physical Exam Vital Signs: Vital Signs: Last Vital Signs Temp 98.7 F 11/03/23 07:29 Pulse 81 11/03/23 08:34 Resp 18 11/03/23 08:34 BP 92/58 L 11/03/23 10:35 Pulse Ox 93 11/03/23 07:29 O2 Del Method Room Air 11/03/23 07:29 O2 Flow Rate 2 11/03/23 03:52 BMI result Body Mass Index 21.4 Appearance: Alert.? Oriented X3.? cvs: rrr, [id number] . res: clear to auscultation ,no rhonchii or wheezing abd: no rebound or guarding ,nt, bs present. ext pulses present , no cyanosis . neuro: axo3 , nonfocal. Objective Data Active Medications Acetaminophen (Acetaminophen 325 Mg Tablet) 650 mg PO Q6H PRN PRN Reason: Pain, Mild (Pain Scale 1-3), fever or headache Albuterol Sulfate (Albuterol Sulfate 90 Mcg 8 Gm Inhaler) 2 puff INHALE Q6H PRN PRN Reason: Wheezing Last Admin: 10/28/23 16:23 Dose: 2 puff Documented By: GRAYSON Ascorbic Acid (Ascorbic Acid 250 Mg Tablet) 250 mg PO BID [facility] Last Admin: 11/03/23 09:18 Dose: 250 mg Documented By: LEONOR Calcium Carbonate (Calcium Carbonate 750 Mg Tab.Chew) 750 mg PO Q4H PRN PRN Reason: Heartburn Docusate Sodium (Docusate Sodium 100 Mg Capsule) 100 mg PO BID [facility] Last Admin: 11/03/23 09:19 Dose: 100 mg Documented By: LEONOR Ferrous Sulfate (Ferrous Sulfate 324 Mg Tablet.Dr) 324 mg PO BID [facility] Last Admin: 11/03/23 09:18 Dose: 324 mg Documented By: LEONOR Fluticasone/Vilanterol (Fluticasone/Vilanterol 200/25 Blst.W.Dev) 1 puff INHALE RDAILY [facility] Last Admin: 11/03/23 08:31 Dose: 1 puff Documented By: EDMUNDO Folic Acid (Folic Acid 1 Mg Tablet) 2 mg PO DAILY [facility] Last Admin: 11/03/23 09:18 Dose: 2 mg Documented By: LEONOR Lorazepam (Lorazepam 0.5 Mg Tablet) 0.5 mg PO BID [facility] Last Admin: 11/03/23 09:19 Dose: 0.5 mg Documented By: LEONOR Magnesium Hydroxide (Milk Of Magnesia 30 Ml Oral.Susp) 30 ml PO DAILY PRN PRN Reason: Constipation Last Admin: 11/01/23 08:45 Dose: 30 ml Documented By: KAREN Melatonin (Melatonin 3 Mg Tablet) 6 mg PO BEDTIME PRN PRN Reason: Insomnia Last Admin: 11/02/23 20:10 Dose: 6 mg Documented By: AFSHIN Nicotine (Nicotine 21 Mg Patch.Td24) 21 mg TRANSDERMA DAILY [facility] Last Admin: 11/03/23 09:39 Dose: 21 mg Documented By: LEONOR Ondansetron HCl (Ondansetron Hcl 4 Mg/2 Ml Vial) 4 mg IVPUSH Q8H PRN PRN Reason: Nausea and Vomiting Oxycodone HCl (Oxycodone Hcl Immed Release 5 Mg Tablet) 10 mg PO Q4H [facility] Last Admin: 11/03/23 09:26 Dose: 10 mg Documented By: LEONOR Oxycodone HCl (Oxycodone Hcl Er 10 Mg Tab.Er.12h) 20 mg PO BID [facility] Last Admin: 11/03/23 09:19 Dose: 20 mg Documented By: LEONOR Polyethylene Glycol (Polyethylene Glycol 3350 17 Gm Powd.Pack) 17 gm PO DAILY [facility] Last Admin: 11/03/23 09:19 Dose: 17 gm Documented By: LEONOR Risperidone (Risperidone 1 Mg Tablet) 1 mg PO BID [facility] Last Admin: 11/03/23 09:18 Dose: 1 mg Documented By: LEONOR Risperidone (Risperidone 1 Mg Tablet) 4 mg PO BEDTIME [facility] Last Admin: 11/02/23 20:10 Dose: 4 mg Documented By: AFSHIN Sodium Biphosphate/Sodium Phosphate (Sodium Phosphate,[place]-Dibasic 133 Ml Enema) 133 ml [place] ONCE PRN PRN Reason: Constipation Sodium Chloride (0.9 % Sodium Chloride Flush 3 Ml Syringe) 3 ml IVFLUSH QSHIFT [facility] Last Admin: 11/03/23 09:20 Dose: 3 ml Documented By: LEONOR Labs 11/02/23 07:24 10/29/23 06:26 Assessment and Plan (1) Metastatic cancer: Status: Acute (2) Intractable pain: Status: Acute Assessment and Plan: 52-year-old female with history of schizophrenia, anxiety/depression, and mild persistent asthma who is deaf and requires ASL interpretation admitted for further management of intractable pain r/t metastatic cancer. Intractable pain r/t metastatic cancer -CT Chest/abd/pelvis 10/22 shows: -infiltrative soft tissue mass in the low pelvis/presacral region measuring 6.6 x 5.4 x 10.1 cm with invasion of the rectosigmoid colon as well as service and vagina with extension into the perineum. There also small free fluid and inflammatory changes in the presacral space. -possible metastatic disease with a small nodule in the left hemipelvis measuring 1.2 x 1.2 cm, enlarged right inguinal lymph node measuring 1.9 x 1.4 cm and enlarged right paratracheal lymph node measuring 2.4 x 2.3 cm -3 mm left upper lobe pulmonary nodule -Hypervascular left hepatic lesion measuring 2.3 x 2.7 cm plan: patient is s/p biopsy lymph node( right inguinal)-path final report pending pain is uncontrolled -pain management : started oxycodone ER 10 mg -adjusted to 20 mg po bid , and oxycodone 10 mg q4hr, iv diludid prn ( difficult to use due to softer bp). will traget times for pain medication when she except pain most-when she get out of bed ,walking or moving ,also inaddition oxycontin now 20 mg bid. oncology follow up. anemia microcytic( acute on ch) :multifactorial possiblt mixed (iron def+folate),may also have component of underlying maliganancy, external haemorroids cbc path review -possible iron def ldh normal moniter h/h closely ,her h/h was 10-12 range last 3-4 months trending down slowly to 6-7 range ,now in 8.6 range plan: got 1 prbc this admission continue folate 2 mg po qd ,ironand vitamin c,hydrocortizone supp. moniter h/h closely -will consider transfusing 1 more unit prbc if h/h similar range considering her bp is boderline soft. Boderline BP:multifactorial(hypoalbuminemia ,anemia ,po intake , pain meds) she need pediatric cuff -very thin biuld lady-bp mostly in high 90's to 100's asymptomatic h/h pending added albumin encourage for free water 300 ml q6hr will add dose of midodrine. moniter bp closely SIRS criteria resolved-leukocytosis is chronic-improving. Tachycardia and tachypnea resolved. There is no sepsis or severe sepsis on admission, no infection schizophrenia/mood disorder-continue home medications mild persistent asthma-no exacerbation continue Flovent, albuterol p.r.n. Urinary retention :pvr and flomax. DVT prophylaxis-scd, anemia ,haemrroidial bleeding Ongoing need for hospitalization: Intractable pain/possible metastatic disease-need IV pain medications, closely monitor pain. Quality Stroke Does the patient have a stroke diagnosis?: No VTE Prior VTE?: No VTE Risk Level:: Medical - moderate - high VTE Device Contraindication: Treatment Not Indicated VTE Drug Contraindication: N/A - Med Ordered
[2023-11-03] MEDS: Albumin Human 25 % 100 ML IV ×3 (11:16→23:26)
[2023-11-03] MEDS: Midodrine HCl 10 MG TABLET PO (11:17)
--- NOTE | 2023-11-03 11:25 | MHC.CLN ---
F/U PO INTAKE 75-100% DIET RX: REGULAR-APPROPRIATE PT RECEIVING ENSURE TID PROVIDES 1050KCALS, 60G PROTEIN WITH 100% ACCEPTANCE MONITOR PO INTAKE AND ENCOURAGE SUPPLEMENTS
[2023-11-03 12:11] LABS: Hematocrit 26.5 % (37.0-47.0); Hemoglobin 8.3 g/dl (12.0-16.0)
[2023-11-03] MEDS: Hydrocortisone 2.5 % Rectal Cr 30 GM TUBE 1 APPL PR (13:28)
[2023-11-03] MEDS: HYDROmorphone HCl 1 MG/ML SYRINGE IVPUSH (14:31)
[2023-11-03] MEDS: Acetaminophen 325 MG TABLET 650 MG PO (14:32)
--- NOTE | 2023-11-03 15:21 | MHC.CM.PN ---
PER ROUNDS PT NOT MEDICALLY STABLE AT THIS TIME DC PLAN IS TO RETURN HOME [facility] AND ?OUTPT ONCOLOGY
[2023-11-03] MEDS: risperiDONE 1 MG TABLET 4 MG PO (20:33)
[2023-11-03] MEDS: Melatonin 3 MG TABLET 6 MG PO (21:47)
[2023-11-04] MEDS: oxyCODONE HCl Immed Release 5 MG TABLET 10 MG PO ×6 (02:13→21:58)
[2023-11-04 03:37] VITALS: BP 92/54; PULSE 70; RESP 17; TEMP 36.8; O2SAT 93
[2023-11-04] MEDS: Albumin Human 25 % 100 ML IV (05:24)
[2023-11-04 07:51] VITALS: BP 98/57; PULSE 67; RESP 16; TEMP 36.2; O2SAT 96
[2023-11-04] MEDS: 0.9 % Sodium Chloride Flush 3 ML SYRINGE IVFLUSH ×3 (08:03→20:24)
[2023-11-04] MEDS: Fluticasone/Vilanterol 200/25 BLST.W.DEV 1 PUFF INHALE (08:31)
[2023-11-04 08:34] VITALS: PULSE 72; RESP 16; O2SAT 98
[2023-11-04] MEDS: polyethylene glycoL 3350 17 GM POWD.PACK PO (09:00)
[2023-11-04] MEDS: Docusate Sodium 100 MG CAPSULE PO ×2 (09:00→20:23)
[2023-11-04] MEDS: oxyCODONE HCl ER 10 MG TAB.ER.12H 20 MG PO ×2 (09:01→20:24)
[2023-11-04] MEDS: Nicotine 21 MG PATCH.TD24 TRANSDERMA (09:01)
[2023-11-04] MEDS: risperiDONE 1 MG TABLET PO ×2 (09:03→20:23)
[2023-11-04] MEDS: Ferrous Sulfate 324 MG TABLET.DR PO ×2 (09:03→20:23)
[2023-11-04] MEDS: Ascorbic Acid 250 MG TABLET PO ×2 (09:03→20:23)
[2023-11-04] MEDS: Folic Acid 1 MG TABLET 2 MG PO (09:03)
[2023-11-04] MEDS: LORazepam 0.5 MG TABLET PO ×2 (09:03→20:23)
[2023-11-04] MEDS: Hydrocortisone 2.5 % Rectal Cr 30 GM TUBE 1 APPL PR (09:10)
--- NOTE | 2023-11-04 09:43 | HO.PM.IMPN ---
Subjective Subjective Date of Service: 11/04/23 Interval History: anemia boderline soft bp. Review of Systems appear confortable with intermittent pain Physical Exam Vital Signs: Vital Signs: Last Vital Signs Temp 97.2 F 11/04/23 07:51 Pulse 72 11/04/23 08:34 Resp 16 11/04/23 08:34 BP 98/57 L 11/04/23 07:51 Pulse Ox 96 11/04/23 07:51 O2 Del Method Nasal Cannula 11/04/23 07:51 O2 Flow Rate 2 11/04/23 03:37 BMI result Body Mass Index 21.4 Const: Other: General: no distress Resp: CTA bilateral CVS: S1,S2,RRR GI: +BS, NT, no distention Skin: No rash Neuro: motor grossly intact Psych: appropriate affect Objective Data Active Medications Acetaminophen (Acetaminophen 325 Mg Tablet) 650 mg PO Q6H PRN PRN Reason: Pain, Mild (Pain Scale 1-3), fever or headache Last Admin: 11/03/23 14:32 Dose: 650 mg Documented By: LEONOR Albuterol Sulfate (Albuterol Sulfate 90 Mcg 8 Gm Inhaler) 2 puff INHALE Q6H PRN PRN Reason: Wheezing Last Admin: 10/28/23 16:23 Dose: 2 puff Documented By: GRAYSON Ascorbic Acid (Ascorbic Acid 250 Mg Tablet) 250 mg PO BID [facility] Last Admin: 11/04/23 09:03 Dose: 250 mg Documented By: DAVID Calcium Carbonate (Calcium Carbonate 750 Mg Tab.Chew) 750 mg PO Q4H PRN PRN Reason: Heartburn Docusate Sodium (Docusate Sodium 100 Mg Capsule) 100 mg PO BID [facility] Last Admin: 11/04/23 09:00 Dose: 100 mg Documented By: DAVID Ferrous Sulfate (Ferrous Sulfate 324 Mg Tablet.Dr) 324 mg PO BID [facility] Last Admin: 11/04/23 09:03 Dose: 324 mg Documented By: DAVID Fluticasone/Vilanterol (Fluticasone/Vilanterol 200/25 Blst.W.Dev) 1 puff INHALE RDAILY [facility] Last Admin: 11/04/23 08:31 Dose: 1 puff Documented By: SANJANA Folic Acid (Folic Acid 1 Mg Tablet) 2 mg PO DAILY [facility] Last Admin: 11/04/23 09:03 Dose: 2 mg Documented By: DAVID Hydrocortisone (Hydrocortisone 2.5 % Rectal Cr 30 Gm Tube) 1 appl [place] DAILY [facility] Last Admin: 11/04/23 09:10 Dose: 1 appl Documented By: DAVID Hydromorphone HCl (Hydromorphone Hcl 1 Mg/Ml Syringe) 1 mg IVPUSH Q4H PRN; Protocol PRN Reason: Pain, Mild (Pain Scale 1-3) Last Admin: 11/03/23 14:31 Dose: 1 mg Documented By: LEONOR Lorazepam (Lorazepam 0.5 Mg Tablet) 0.5 mg PO BID [facility] Last Admin: 11/04/23 09:03 Dose: 0.5 mg Documented By: DAVID Magnesium Hydroxide (Milk Of Magnesia 30 Ml Oral.Susp) 30 ml PO DAILY PRN PRN Reason: Constipation Last Admin: 11/01/23 08:45 Dose: 30 ml Documented By: KAREN Melatonin (Melatonin 3 Mg Tablet) 6 mg PO BEDTIME PRN PRN Reason: Insomnia Last Admin: 11/03/23 21:47 Dose: 6 mg Documented By: CINTHYA Nicotine (Nicotine 21 Mg Patch.Td24) 21 mg TRANSDERMA DAILY [facility] Last Admin: 11/04/23 09:01 Dose: 21 mg Documented By: DAVID Ondansetron HCl (Ondansetron Hcl 4 Mg/2 Ml Vial) 4 mg IVPUSH Q8H PRN PRN Reason: Nausea and Vomiting Oxycodone HCl (Oxycodone Hcl Immed Release 5 Mg Tablet) 10 mg PO Q4H [facility] Last Admin: 11/04/23 06:29 Dose: 10 mg Documented By: ENDER Oxycodone HCl (Oxycodone Hcl Er 10 Mg Tab.Er.12h) 20 mg PO BID [facility] Last Admin: 11/04/23 09:01 Dose: 20 mg Documented By: DAVID Polyethylene Glycol (Polyethylene Glycol 3350 17 Gm Powd.Pack) 17 gm PO DAILY [facility] Last Admin: 11/04/23 09:00 Dose: 17 gm Documented By: DAVID Risperidone (Risperidone 1 Mg Tablet) 1 mg PO BID [facility] Last Admin: 11/04/23 09:03 Dose: 1 mg Documented By: DAVID Risperidone (Risperidone 1 Mg Tablet) 4 mg PO BEDTIME [facility] Last Admin: 11/03/23 20:33 Dose: 4 mg Documented By: ENDER Sodium Biphosphate/Sodium Phosphate (Sodium Phosphate,[place]-Dibasic 133 Ml Enema) 133 ml [place] ONCE PRN PRN Reason: Constipation Sodium Chloride (0.9 % Sodium Chloride Flush 3 Ml Syringe) 3 ml IVFLUSH QSHIFT [facility] Last Admin: 11/04/23 08:03 Dose: 3 ml Documented By: DAVID Labs 11/03/23 11:58 10/29/23 06:26 Labs: Laboratory Results - last 24 hr 11/03/23 13:05 Blood Type A Positive Antibody Screen NEGATIVE Crossmatch See Detail Assessment and Plan (1) Metastatic cancer: Status: Acute (2) Intractable pain: Status: Acute Assessment and Plan: 52-year-old female with history of schizophrenia, anxiety/depression, and mild persistent asthma who is deaf and requires ASL interpretation admitted for further management of intractable pain r/t metastatic cancer. Intractable pain r/t metastatic cancer -continue oxycodone and oxycontin adjusted as needed Metastatic cancer -CT Chest/abd/pelvis 10/22 shows: -infiltrative soft tissue mass in the low pelvis/presacral region measuring 6.6 x 5.4 x 10.1 cm with invasion of the rectosigmoid colon as well as service and vagina with extension into the perineum. There also small free fluid and inflammatory changes in the presacral space. -possible metastatic disease with a small nodule in the left hemipelvis measuring 1.2 x 1.2 cm, enlarged right inguinal lymph node measuring 1.9 x 1.4 cm and enlarged right paratracheal lymph node measuring 2.4 x 2.3 cm -3 mm left upper lobe pulmonary nodule -Hypervascular left hepatic lesion measuring 2.3 x 2.7 cm -Pathology result pending -oncology to follow and decide on next step Anemia of chronic disease related to above s/p 1 unit or rbc -monitor Borderline BP--assymptomatic -monitor, consider midodrine if symptomatic or SB consistently less than 100 SIRS criteria resolved-leukocytosis is chronic-improving. Tachycardia and tachypnea resolved. There is no sepsis or severe sepsis on admission, no infection schizophrenia/mood disorder-continue home medications mild persistent asthma-no exacerbation continue Flovent, albuterol p.r.n. Urinary retention -flomax -check PVR as needed DVT prophylaxis-scd, anemia ,haemrroidial bleeding Ongoing need for hospitalization: Intractable pain/possible metastatic disease-need IV pain medications, closely monitor pain. Quality Stroke Does the patient have a stroke diagnosis?: No VTE Prior VTE?: No VTE Risk Level:: Medical - moderate - high VTE Device Contraindication: Treatment Not Indicated VTE Drug Contraindication: N/A - Med Ordered
--- NOTE | 2023-11-04 15:05 | MHC.CM.PN ---
CM MET WITH PT AND [employer] CLASSIFIER TENDER. PT DOES NOT FEEL SAFE RIGHT NOW TO RETURN HOME ALONE. PROVIDER WILL GET P.T. EVAL. PT IS CONCERNED HER 02 LEVEL WILL DROP AND NO ONE WILL BE THERE TO HELP HER. CM WILL CONTINUE TO FOLLOW FOR PLAN. PT IS ACTIVE WITH [facility] AND CM WILL UPDATE VIA [facility].
[2023-11-04 15:22] VITALS: BP 95/52; PULSE 73; RESP 14; TEMP 36.2; O2SAT 93
[2023-11-04 20:00] VITALS: BP 103/55; PULSE 72; RESP 16; TEMP 36.7; O2SAT 96
[2023-11-04] MEDS: risperiDONE 1 MG TABLET 4 MG PO (20:23)
[2023-11-04] MEDS: Melatonin 3 MG TABLET 6 MG PO (21:57)
[2023-11-05] VITALS (8 sets, daily range): BP systolic 101–109; BP diastolic 54–57; PULSE 64–77; RESP 16–18; TEMP 36.1–36.8; O2SAT 90–96
[2023-11-05] MEDS: oxyCODONE HCl Immed Release 5 MG TABLET 10 MG PO ×2 (03:21→06:31)
[2023-11-05 05:33] LABS: Hematocrit 29.4 % (37.0-47.0); Hemoglobin 9.4 g/dl (12.0-16.0); Mean Corpuscular Hemoglobin 24.7 pg (27.0-33.0); Mean Corpuscular Volume 77.4 fL (80.0-98.0); Mean Platelet Volume 9.4 fL (9.4-12.3); Platelet Count 317 X10*3/uL (160-400); Red Cell Distribution Width 18.2 % (11.0-16.0); White Blood Count 13.1 X10*3/uL (4.8-10.8)
[2023-11-05] MEDS: 0.9 % Sodium Chloride Flush 3 ML SYRINGE IVFLUSH ×3 (09:11→22:35)
[2023-11-05] MEDS: Nicotine 21 MG PATCH.TD24 TRANSDERMA (09:12)
[2023-11-05] MEDS: LORazepam 0.5 MG TABLET PO ×2 (09:13→20:21)
[2023-11-05] MEDS: risperiDONE 1 MG TABLET PO ×2 (09:13→20:20)
[2023-11-05] MEDS: oxyCODONE HCl ER 10 MG TAB.ER.12H 20 MG PO ×2 (09:13→20:22)
[2023-11-05] MEDS: Ferrous Sulfate 324 MG TABLET.DR PO (09:13)
[2023-11-05] MEDS: Ascorbic Acid 250 MG TABLET PO ×2 (09:13→22:07)
[2023-11-05] MEDS: Folic Acid 1 MG TABLET 2 MG PO (09:13)
[2023-11-05] MEDS: Hydrocortisone 2.5 % Rectal Cr 30 GM TUBE 1 APPL PR (09:19)
--- NOTE | 2023-11-05 09:38 | P.PNHO-ONC_ITS ---
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 WBC count ranging from 15-23 K with increase in lymphocytes. History of recurrent urinary tract infections. No prednisone use. Chronic smoker/marijuana use. Blood for flow cytometry showed B-cell lymphoid expansion with no definite clonal lymphoid population detected. Polyclonal B-cell lymphocytosis. LDH mildly elevated at 244, serum protein electrophoresis showed a faint M spike. Beta 2 microglobulin mildly elevated at 2.59 mg/L. Interval History Interval history: Patient is lying in bed. She appears to be comfortable. She was talking to her son via zoom by sign language. He is also congenitally deaf. She offered no complaints today. Review of Systems - Constitutional Reports as per HPI, Denies fatigue, Denies lack of energy, Denies malaise - Cardiovascular Reports no additional cardiovascular complaints - Respiratory Reports no additional respiratory complaints - Gastrointestinal Reports no additional gastrointestinal complaints - Neurologic Denies sensory deficit [facility] Medical History: Medical History (Last Reviewed 11/05/23 @ 09:18 by Brandie Vogt PT) Asthma Chronic pain of left knee Congenital deafness Dyslipidemia History of gallbladder disease Hx of Lyme disease Low vitamin D level Mental health disorder Schizophrenia Functional capacity: uses cane/walker Family History: Family History (Last Reviewed 10/28/23 @ 15:04 by SONU Lujan) Mother Hypertension Surgical History: Surgical History (Last Reviewed 11/05/23 @ 09:18 by Brandie Vogt PT) History of cholecystectomy Hx of appendectomy Hx of foot surgery Hx of tubal ligation Social History: Social History (Last Reviewed 10/28/23 @ 15:04 by SONU Lujan) Living Situation History: Household Members: None Housing: Apartment Do you presently have visiting nurse or other home services: Yes Do you presently have visiting nurse or other home services comment: followed by [facility] per records Tobacco History: Patient Tobacco Use Status: Current everyday Tobacco Tobacco use type: Cigarette Cigarette Packs Per Day: 1 Substance Use History: Substance Use Type: Marijuana Occupation Assessmet: service: No Current occupational status: disabled Home Medications and Allergies Current Medications: Current Medications Acetaminophen (Acetaminophen 325 Mg Tablet) 650 mg PO Q6H PRN PRN Reason: Pain, Mild (Pain Scale 1-3), fever or headache Last Admin: 11/03/23 14:32 Dose: 650 mg Albuterol Sulfate (Albuterol Sulfate 90 Mcg 8 Gm Inhaler) 2 puff INHALE Q6H PRN PRN Reason: Wheezing Last Admin: 10/28/23 16:23 Dose: 2 puff Ascorbic Acid (Ascorbic Acid 250 Mg Tablet) 250 mg PO BID [facility] Last Admin: 11/05/23 09:13 Dose: 250 mg Calcium Carbonate (Calcium Carbonate 750 Mg Tab.Chew) 750 mg PO Q4H PRN PRN Reason: Heartburn Docusate Sodium (Docusate Sodium 100 Mg Capsule) 100 mg PO BID [facility] Last Admin: 11/05/23 09:20 Dose: Not Given Ferrous Sulfate (Ferrous Sulfate 324 Mg Tablet.Dr) 324 mg PO BID [facility] Last Admin: 11/05/23 09:13 Dose: 324 mg Fluticasone/Vilanterol (Fluticasone/Vilanterol 200/25 Blst.W.Dev) 1 puff INHALE RDAILY [facility] Last Admin: 11/05/23 07:47 Dose: Not Given Folic Acid (Folic Acid 1 Mg Tablet) 2 mg PO DAILY [facility] Last Admin: 11/05/23 09:13 Dose: 2 mg Hydrocortisone (Hydrocortisone 2.5 % Rectal Cr 30 Gm Tube) 1 appl [place] DAILY [facility] Last Admin: 11/05/23 09:19 Dose: 1 appl Hydromorphone HCl (Hydromorphone Hcl 1 Mg/Ml Syringe) 1 mg IVPUSH Q4H PRN; Protocol PRN Reason: Pain, Mild (Pain Scale 1-3) Last Admin: 11/03/23 14:31 Dose: 1 mg Lorazepam (Lorazepam 0.5 Mg Tablet) 0.5 mg PO BID [facility] Last Admin: 11/05/23 09:13 Dose: 0.5 mg Magnesium Hydroxide (Milk Of Magnesia 30 Ml Oral.Susp) 30 ml PO DAILY PRN PRN Reason: Constipation Last Admin: 11/01/23 08:45 Dose: 30 ml Melatonin (Melatonin 3 Mg Tablet) 6 mg PO BEDTIME PRN PRN Reason: Insomnia Last Admin: 11/04/23 21:57 Dose: 6 mg Nicotine (Nicotine 21 Mg Patch.Td24) 21 mg TRANSDERMA DAILY [facility] Last Admin: 11/05/23 09:12 Dose: 21 mg Ondansetron HCl (Ondansetron Hcl 4 Mg/2 Ml Vial) 4 mg IVPUSH Q8H PRN PRN Reason: Nausea and Vomiting Oxycodone HCl (Oxycodone Hcl Immed Release 5 Mg Tablet) 10 mg PO Q4H [facility] Last Admin: 11/05/23 06:31 Dose: 10 mg Oxycodone HCl (Oxycodone Hcl Er 10 Mg Tab.Er.12h) 20 mg PO BID [facility] Last Admin: 11/05/23 09:13 Dose: 20 mg Polyethylene Glycol (Polyethylene Glycol 3350 17 Gm Powd.Pack) 17 gm PO DAILY [facility] Last Admin: 11/05/23 09:21 Dose: Not Given Risperidone (Risperidone 1 Mg Tablet) 1 mg PO BID [facility] Last Admin: 11/05/23 09:13 Dose: 1 mg Risperidone (Risperidone 1 Mg Tablet) 4 mg PO BEDTIME [facility] Last Admin: 11/04/23 20:23 Dose: 4 mg Sodium Biphosphate/Sodium Phosphate (Sodium Phosphate,[place]-Dibasic 133 Ml Enema) 133 ml [place] ONCE PRN PRN Reason: Constipation Sodium Chloride (0.9 % Sodium Chloride Flush 3 Ml Syringe) 3 ml IVFLUSH QSHIFT [facility] Last Admin: 11/05/23 09:11 Dose: 3 ml Home Medications ?Medication ?Instructions ?Recorded ?Confirmed ?Type albuterol sulfate 90 mcg/actuation 2 puff PO Q6H PRN Wheezing 02/25/20 10/28/23 History aerosol inhaler risperidone 4 mg tablet 4 mg PO BEDTIME 02/25/20 10/28/23 History lorazepam 0.5 mg tablet 0.5 mg PO BID 07/17/23 10/28/23 History acetaminophen 500 mg tablet 500 - 1,000 mg PO Q8-12H PRN Pain 10/28/23 10/28/23 History fluticasone 500 mcg-salmeterol 50 1 inh inhalation BID 10/28/23 10/28/23 History mcg/dose blistr powdr for inhalation (Advair Diskus) nicotine 21 mg/24 hr daily 1 patch transdermal DAILY 10/28/23 10/28/23 History transdermal patch risperidone 1 mg tablet 1 mg PO BID 10/28/23 10/28/23 History Allergies Allergy/AdvReac Type Severity Reaction Status Date / Time No Known Allergies Allergy Verified 10/28/23 10:36 [No Known Allergies*] Exam Vital signs: Vital Signs Temp 98.2 F 11/05/23 08:20 Pulse 77 11/05/23 09:15 Resp 18 11/05/23 08:20 BP 109/57 L 11/05/23 08:20 Pulse Ox 90 L 11/05/23 09:15 O2 Del Method Nasal Cannula 11/05/23 08:20 O2 Flow Rate 2 11/05/23 08:20 Intake & Output 11/04/23 11/05/23 11/05/23 18:59 06:59 18:59 Intake Total 1320 / 1680 360 / 1680 Balance 1320 / 1680 360 / 1680 Intake: Intake, Oral Amount 1320 / 1680 360 / 1680 Other: Meal Refused No NPO No Breakfast % Eaten 0% Lunch % Eaten 50% Dinner % Eaten 50% Eating (Feeding) Ability Independent Number of Unmeasured Voids 2 2 Urine Bedside Commode Bedside Commode Urine Color Yellow [place] Tinged Last Bowel Movement 11/04/23 11/05/23 Stool Bedside Commode Stool Amount Small Stool Color Blood Tinged Weight 53.2 kg BMI result Body Mass Index 21.4 - Constitutional Present: no acute distress, moderate distress - Routine HEENT Exam Head: Present: atraumatic, normal inspection, normocephalic - Routine Neck Exam Present: full ROM - Routine Cardiovascular Exam Cardiovascular: Present: RRR, S1, S2 - Routine Abdominal Exam Present: nontender - Routine Extremities Exam Present: nontender Data - Labs CBC & Chem 7: 11/05/23 05:20 10/29/23 06:26 Assessment and Plan Patient Active problem list reviewed?: Yes (1) Metastatic cancer Status: Acute Assessment and plan: 1. 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 CT scan of the abdomen pelvis and chest on 10/22 revealed: Infiltrative soft tissue mass in the low pelvis/presacral region measuring 6.6 x 5.4 x 10.1 cm with invasion of the rectosigmoid colon as well as the cervix and vagina. There is extension into the perineum. Small free fluid and inflammatory changes in the presacral space. This most likely represents neoplasm. PET/CT is recommended. There is possible metastatic disease with a small nodule in the left hemipelvis measuring 1.2 x 1.2 cm, an enlarged right inguinal lymph node measuring 1.9 x 1.4 cm and an enlarged right paratracheal lymph node measuring 2.4 x 2.3 cm. 3 mm left upper lobe pulmonary nodule is nonspecific. Hypervascular left hepatic lesion measuring 2.3 x 2.7 cm may be further characterized with MRI. Splenomegaly. Core right inguinal lymph node biopsy performed 10/29/23 showed metastatic poorly differentiated squamous cell carcinoma, IHC showed positivity for CK7, P16, P 40 and P 63. Weak focal GATA3 immuno reactivity, negative for CK20. I discussed above findings with the patient in the presence of marble helper. Patient has been having symptoms of rectal pain and hematochezia since 01/2023. She has had over 20 lb weight loss in the last 6 months. She was supposed to have a colonoscopy but this was not scheduled until January at [facility]. I recommend GI evaluation to see if she can at least have a anoscopy/sigmoidoscopy to evaluate origin of tumor. Unfortunately she appears to have metastatic disease with enlarged right paratracheal lymph node. Outpatient PET-CT will be arranged. Depending on origin of cancer, recommendations about systemic therapy, most likely palliative chemotherapy will be made. Further recommendations to follow. - Time Spent With Patient Time Spent with Patient (in minutes): 25 Additional Coding: - Additional E/M codes Complex E/M visit Add On: CPT G2211
--- NOTE | 2023-11-05 09:40 | HO.PM.IMPN ---
Subjective Subjective Date of Service: 11/05/23 Interval History: Pt hypoxic overnight and required O2, no symptoms Physical Exam Vital Signs: Vital Signs: Last Vital Signs Temp 98.2 F 11/05/23 08:20 Pulse 77 11/05/23 09:15 Resp 18 11/05/23 08:20 BP 109/57 L 11/05/23 08:20 Pulse Ox 90 L 11/05/23 09:15 O2 Del Method Nasal Cannula 11/05/23 08:20 O2 Flow Rate 2 11/05/23 08:20 BMI result Body Mass Index 21.4 Const: Other: General: no distress Resp: CTA bilateral CVS: S1,S2,RRR GI: +BS, NT, no distention Skin: No rash Neuro: motor grossly intact Psych: appropriate affect Objective Data Active Medications Acetaminophen (Acetaminophen 325 Mg Tablet) 650 mg PO Q6H PRN PRN Reason: Pain, Mild (Pain Scale 1-3), fever or headache Last Admin: 11/03/23 14:32 Dose: 650 mg Documented By: LEONOR Albuterol Sulfate (Albuterol Sulfate 90 Mcg 8 Gm Inhaler) 2 puff INHALE Q6H PRN PRN Reason: Wheezing Last Admin: 10/28/23 16:23 Dose: 2 puff Documented By: GRAYSON Ascorbic Acid (Ascorbic Acid 250 Mg Tablet) 250 mg PO BID [facility] Last Admin: 11/05/23 09:13 Dose: 250 mg Documented By: DAVID Calcium Carbonate (Calcium Carbonate 750 Mg Tab.Chew) 750 mg PO Q4H PRN PRN Reason: Heartburn Docusate Sodium (Docusate Sodium 100 Mg Capsule) 100 mg PO BID [facility] Last Admin: 11/05/23 09:20 Dose: Not Given Documented By: DAVID Non-Admin Reason: pt. refused, loose stools Ferrous Sulfate (Ferrous Sulfate 324 Mg Tablet.Dr) 324 mg PO BID [facility] Last Admin: 11/05/23 09:13 Dose: 324 mg Documented By: DAVID Fluticasone/Vilanterol (Fluticasone/Vilanterol 200/25 Blst.W.Dev) 1 puff INHALE RDAILY [facility] Last Admin: 11/05/23 07:47 Dose: Not Given Documented By: OMNTANA Non-Admin Reason: Patient Asleep Folic Acid (Folic Acid 1 Mg Tablet) 2 mg PO DAILY [facility] Last Admin: 11/05/23 09:13 Dose: 2 mg Documented By: DAVID Hydrocortisone (Hydrocortisone 2.5 % Rectal Cr 30 Gm Tube) 1 appl [place] DAILY [facility] Last Admin: 11/05/23 09:19 Dose: 1 appl Documented By: DAVID Hydromorphone HCl (Hydromorphone Hcl 1 Mg/Ml Syringe) 1 mg IVPUSH Q4H PRN; Protocol PRN Reason: Pain, Mild (Pain Scale 1-3) Last Admin: 11/03/23 14:31 Dose: 1 mg Documented By: LEONOR Lorazepam (Lorazepam 0.5 Mg Tablet) 0.5 mg PO BID [facility] Last Admin: 11/05/23 09:13 Dose: 0.5 mg Documented By: DAVID Magnesium Hydroxide (Milk Of Magnesia 30 Ml Oral.Susp) 30 ml PO DAILY PRN PRN Reason: Constipation Last Admin: 11/01/23 08:45 Dose: 30 ml Documented By: KAREN Melatonin (Melatonin 3 Mg Tablet) 6 mg PO BEDTIME PRN PRN Reason: Insomnia Last Admin: 11/04/23 21:57 Dose: 6 mg Documented By: CINTHYA Nicotine (Nicotine 21 Mg Patch.Td24) 21 mg TRANSDERMA DAILY [facility] Last Admin: 11/05/23 09:12 Dose: 21 mg Documented By: DAVID Ondansetron HCl (Ondansetron Hcl 4 Mg/2 Ml Vial) 4 mg IVPUSH Q8H PRN PRN Reason: Nausea and Vomiting Oxycodone HCl (Oxycodone Hcl Immed Release 5 Mg Tablet) 10 mg PO Q4H [facility] Last Admin: 11/05/23 06:31 Dose: 10 mg Documented By: ENDER Oxycodone HCl (Oxycodone Hcl Er 10 Mg Tab.Er.12h) 20 mg PO BID [facility] Last Admin: 11/05/23 09:13 Dose: 20 mg Documented By: DAVID Polyethylene Glycol (Polyethylene Glycol 3350 17 Gm Powd.Pack) 17 gm PO DAILY [facility] Last Admin: 11/05/23 09:21 Dose: Not Given Documented By: DAVID Non-Admin Reason: pt. refused, loose stools. Risperidone (Risperidone 1 Mg Tablet) 1 mg PO BID [facility] Last Admin: 11/05/23 09:13 Dose: 1 mg Documented By: DAVID Risperidone (Risperidone 1 Mg Tablet) 4 mg PO BEDTIME [facility] Last Admin: 11/04/23 20:23 Dose: 4 mg Documented By: ENDER Sodium Biphosphate/Sodium Phosphate (Sodium Phosphate,[place]-Dibasic 133 Ml Enema) 133 ml [place] ONCE PRN PRN Reason: Constipation Sodium Chloride (0.9 % Sodium Chloride Flush 3 Ml Syringe) 3 ml IVFLUSH QSHIFT [facility] Last Admin: 11/05/23 09:11 Dose: 3 ml Documented By: DAVID Labs 11/05/23 05:20 10/29/23 06:26 Labs: Laboratory Results - last 24 hr 11/05/23 05:20 MCV 77.4 L MCH 24.7 L MCHC 32.0 RDW 18.2 H Plt Count 317 MPV 9.4 Absolute Nucleated RBC 0.000 Nucleated RBC % (auto) 0.0 Assessment and Plan (1) Metastatic cancer: Status: Acute (2) Intractable pain: Status: Acute Assessment and Plan: 52-year-old female with history of schizophrenia, anxiety/depression, and mild persistent asthma who is deaf and requires ASL interpretation admitted for further management of intractable pain r/t metastatic cancer. Intractable pain r/t metastatic cancer -continue oxycodone and oxycontin adjusted as needed Metastatic cancer -CT Chest/abd/pelvis 10/22 shows: -infiltrative soft tissue mass in the low pelvis/presacral region measuring 6.6 x 5.4 x 10.1 cm with invasion of the rectosigmoid colon as well as service and vagina with extension into the perineum. There also small free fluid and inflammatory changes in the presacral space. -possible metastatic disease with a small nodule in the left hemipelvis measuring 1.2 x 1.2 cm, enlarged right inguinal lymph node measuring 1.9 x 1.4 cm and enlarged right paratracheal lymph node measuring 2.4 x 2.3 cm -3 mm left upper lobe pulmonary nodule -Hypervascular left hepatic lesion measuring 2.3 x 2.7 cm -Pathology result pending -oncology will follow in office -GI consult for consideration of sigmoidoscopy vs colonoscopy Hypoxia likely related to above, lung mets. -get CXR Anemia of chronic disease related to above s/p 1 unit of prbc -monitor Borderline BP--assymptomatic -monitor, consider midodrine if symptomatic or SB consistently less than 100 SIRS criteria resolved-leukocytosis is chronic-improving. Tachycardia and tachypnea resolved. There is no sepsis or severe sepsis on admission, no infection schizophrenia/mood disorder-continue home medications mild persistent asthma-no exacerbation continue Flovent, albuterol p.r.n. Urinary retention -flomax -check PVR as needed DVT prophylaxis-scd, anemia ,haemrroidial bleeding Ongoing need for hospitalization: Intractable pain/possible metastatic disease-need IV pain medications, closely monitor pain. PT eval Quality Stroke Does the patient have a stroke diagnosis?: No VTE Prior VTE?: No VTE Risk Level:: Medical - moderate - high VTE Device Contraindication: Treatment Not Indicated VTE Drug Contraindication: N/A - Med Ordered
--- NOTE | 2023-11-05 09:50 | MHC.CLN ---
F/U DIET RX: REGULAR-APPROPRIATE. PT RECEIVING ENSURE TID PROVIDES 1050KCALS, 60G PROTEIN WITH 100% ACCEPTANCE. PO INTAKE VARIABLE, 0-100%, WITH AVERAGE INTAKE APPROX 50%. MONITOR PO INTAKE AND ENCOURAGE SUPPLEMENTS.
[2023-11-05] MEDS: Fluticasone/Vilanterol 200/25 BLST.W.DEV 1 PUFF INHALE (09:56)
[2023-11-05] MEDS: HYDROmorphone HCl 1 MG/ML SYRINGE IVPUSH ×3 (11:30→22:43)
--- NOTE | 2023-11-05 13:33 | MHC.CM.PN ---
per rounds pt not medically ready for dc gi to see pt dc plan remins home with vna
--- NOTE | 2023-11-05 14:57 | P.EN_ITS ---
Event Note Date of Service: 11/05/23 Event Note: GI consult dictated Colonoscopy scheduled for 11/05 to evaluate for source of scc. Risks and benefits of procedure discussed with Yanna via aspnet developer. She understands these and agrees to proceed. Time Spent With Patient Time: Total time managing care of this patient today ____ minutes.
--- NOTE | 2023-11-05 15:56 | CONS_ITS ---
DATE OF SERVICE: 11/05/2023 REFERRING PHYSICIAN: Dr. Cramer REASON FOR CONSULTATION: Metastatic squamous cell carcinoma with abnormal CT scan of the rectum. HISTORY OF PRESENT ILLNESS: The patient is a 52-year-old woman, who was admitted to the hospital on October 27 because of severe pain. She has a history of metastatic squamous cell carcinoma and has had intermittent hemorrhoidal type bleeding. As part of her evaluation, she underwent CT scanning of the abdomen and pelvis earlier in the month, which is reviewed. This showed an infiltrative soft tissue mass in the lower pelvic/presacral region with invasion of the rectosigmoid colon as well as the cervix and the vagina. There was also extension into the perineum. A lymph node biopsy was done under ultrasound of a right inguinal lymph node, which pathologically showed metastatic poorly differentiated squamous cell carcinoma. She has been seen in the hospital by Dr. Dorsey and colonoscopy has been requested to help identify the source for this cancer. The patient apparently has a colonoscopy scheduled as an outpatient, but not until January. She has never undergone previous colonoscopy. PAST MEDICAL HISTORY: 1. Metastatic squamous cell cancer as above. 2. Chronic leukocytosis. 3. Schizophrenia. 4. Asthma. 5. Gallbladder disease. 6. Knee pain. 7. Low vitamin D level. 8. Hyperlipidemia. 9. Anxiety/depression. 10. Lyme disease. 11. Congenital deafness. CURRENT MEDICATIONS: Her current medication list is reviewed in the chart. ALLERGIES: THERE ARE NONE REPORTED. FAMILY HISTORY: This is reviewed in electronic medical record and is noncontributory. SOCIAL HISTORY: She does use marijuana and tobacco in the outpatient setting. REVIEW OF SYSTEMS: SKIN: No pruritus. HEENT: Negative. CARDIOPULMONARY: No shortness of breath or chest pain. GASTROINTESTINAL: As above. GENITOURINARY: Negative. NEUROPSYCHIATRIC: Negative. PHYSICAL EXAMINATION: GENERAL: Shows a pleasant female, sitting up in bed. VITAL SIGNS: Reviewed in electronic medical record and are stable. SKIN: Anicteric. HEENT: Shows no scleral icterus. NECK: Without lymphadenopathy or thyromegaly. LUNGS: Clear. HEART: Shows a regular rate and rhythm. S1, S2. No murmur. ABDOMEN: Soft without focal masses or tenderness. Bowel sounds are present. No organomegaly is noted. EXTREMITIES: Without edema. LABORATORY DATA AND IMAGING STUDIES: Reviewed. IMPRESSION: Metastatic squamous cell cancer with abnormal CT scan showing findings as above. I discussed with the patient through sign language interpreters, going ahead with a colonoscopy for further evaluation and to hopefully identify the source for the metastatic squamous cell carcinoma. I have discussed colonoscopy with her including risks and benefits. She understands these and agrees to proceed. This will be arranged tentatively for tomorrow. Thanks for asking me to see her. I will follow her in the hospital with you. MD TISH Machado/LUCILA / [phone]
[2023-11-05] MEDS: PEG 3350/Na Sulf,Bicarb,Cl/KCL 4,000 ML SOLN.RECON 240 ML PO (16:38)
[2023-11-05] MEDS: risperiDONE 1 MG TABLET 4 MG PO (20:20)
[2023-11-05] MEDS: Melatonin 3 MG TABLET 6 MG PO (22:45)
[2023-11-06] VITALS (10 sets, daily range): BP systolic 87–116; BP diastolic 48–63; PULSE 62–75; RESP 12–18; TEMP 36.2–37; O2SAT 95–99
[2023-11-06] MEDS: HYDROmorphone HCl 1 MG/ML SYRINGE IVPUSH ×4 (03:54→21:01)
--- NOTE | 2023-11-06 09:01 | P.PNIM_ITS ---
Subjective Subjective Date of Service: 11/06/23 Interval History: no new symptoms Physical Exam 2 Vital Signs: Vital Signs: Last Vital Signs Temp 97.2 F 11/06/23 08:00 Pulse 62 11/06/23 08:00 Resp 12 11/06/23 08:00 BP 109/55 L 11/06/23 08:00 Pulse Ox 95 11/06/23 08:00 O2 Del Method Nasal Cannula 11/06/23 08:00 O2 Flow Rate 2 11/06/23 08:00 BMI result Body Mass Index 21.4 Const: Other: General: no distress Resp: CTA bilateral CVS: S1,S2,RRR GI: +BS, NT, no distention Skin: No rash Neuro: motor grossly intact Psych: appropriate affect Objective Data Active Medications Acetaminophen (Acetaminophen 325 Mg Tablet) 650 mg PO Q6H PRN PRN Reason: Pain, Mild (Pain Scale 1-3), fever or headache Last Admin: 11/03/23 14:32 Dose: 650 mg Documented By: LEONOR Albuterol Sulfate (Albuterol Sulfate 90 Mcg 8 Gm Inhaler) 2 puff INHALE Q6H PRN PRN Reason: Wheezing Last Admin: 10/28/23 16:23 Dose: 2 puff Documented By: GRAYSON Ascorbic Acid (Ascorbic Acid 250 Mg Tablet) 250 mg PO BID [facility] Last Admin: 11/05/23 22:07 Dose: 250 mg Documented By: KESHAV Calcium Carbonate (Calcium Carbonate 750 Mg Tab.Chew) 750 mg PO Q4H PRN PRN Reason: Heartburn Docusate Sodium (Docusate Sodium 100 Mg Capsule) 100 mg PO BID [facility] Last Admin: 11/05/23 22:07 Dose: Not Given Documented By: KESHAV Non-Admin Reason: colonoscopy prep Ferrous Sulfate (Ferrous Sulfate 324 Mg Tablet.Dr) 324 mg PO BID [facility] Last Admin: 11/05/23 09:13 Dose: 324 mg Documented By: DAVID Fluticasone/Vilanterol (Fluticasone/Vilanterol 200/25 Blst.W.Dev) 1 puff INHALE RDAILY [facility] Last Admin: 11/06/23 08:58 Dose: Not Given Documented By: MIKE Non-Admin Reason: Patient Asleep Folic Acid (Folic Acid 1 Mg Tablet) 2 mg PO DAILY [facility] Last Admin: 11/05/23 09:13 Dose: 2 mg Documented By: DAVID Hydrocortisone (Hydrocortisone 2.5 % Rectal Cr 30 Gm Tube) 1 appl [place] DAILY [facility] Last Admin: 11/05/23 09:19 Dose: 1 appl Documented By: DAVID Hydromorphone HCl (Hydromorphone Hcl 1 Mg/Ml Syringe) 1 mg IVPUSH Q4H PRN; Protocol PRN Reason: Pain, Mild (Pain Scale 1-3) Last Admin: 11/06/23 03:54 Dose: 1 mg Documented By: KESHAV Lorazepam (Lorazepam 0.5 Mg Tablet) 0.5 mg PO BID [facility] Last Admin: 11/05/23 20:21 Dose: 0.5 mg Documented By: KESHAV Magnesium Hydroxide (Milk Of Magnesia 30 Ml Oral.Susp) 30 ml PO DAILY PRN PRN Reason: Constipation Last Admin: 11/01/23 08:45 Dose: 30 ml Documented By: KAREN Melatonin (Melatonin 3 Mg Tablet) 6 mg PO BEDTIME PRN PRN Reason: Insomnia Last Admin: 11/05/23 22:45 Dose: 6 mg Documented By: KESHAV Nicotine (Nicotine 21 Mg Patch.Td24) 21 mg TRANSDERMA DAILY [facility] Last Admin: 11/05/23 09:12 Dose: 21 mg Documented By: DAVID Ondansetron HCl (Ondansetron Hcl 4 Mg/2 Ml Vial) 4 mg IVPUSH Q8H PRN PRN Reason: Nausea and Vomiting Polyethylene Glycol (Polyethylene Glycol 3350 17 Gm Powd.Pack) 17 gm PO DAILY [facility] Last Admin: 11/05/23 09:21 Dose: Not Given Documented By: DAVID Non-Admin Reason: pt. refused, loose stools. Risperidone (Risperidone 1 Mg Tablet) 1 mg PO BID [facility] Last Admin: 11/05/23 20:20 Dose: 1 mg Documented By: KESHAV Risperidone (Risperidone 1 Mg Tablet) 4 mg PO BEDTIME [facility] Last Admin: 11/05/23 20:20 Dose: 4 mg Documented By: KESHAV Sodium Biphosphate/Sodium Phosphate (Sodium Phosphate,[place]-Dibasic 133 Ml Enema) 133 ml [place] ONCE PRN PRN Reason: Constipation Sodium Chloride (0.9 % Sodium Chloride Flush 3 Ml Syringe) 3 ml IVFLUSH QSHIFT [facility] Last Admin: 11/05/23 22:35 Dose: 3 ml Documented By: KESHAV Labs 11/06/23 09:39 11/06/23 09:39 Assessment and Plan (1) Metastatic cancer: Status: Acute (2) Intractable pain: Status: Acute Assessment and Plan: 52-year-old female with history of schizophrenia, anxiety/depression, and mild persistent asthma who is deaf and requires ASL interpretation admitted for further management of intractable pain r/t metastatic cancer. Intractable pain r/t metastatic cancer -continue oxycodone and oxycontin adjusted as needed Metastatic cancer -CT Chest/abd/pelvis 10/22 shows: -infiltrative soft tissue mass in the low pelvis/presacral region measuring 6.6 x 5.4 x 10.1 cm with invasion of the rectosigmoid colon as well as service and vagina with extension into the perineum. There also small free fluid and inflammatory changes in the presacral space. -possible metastatic disease with a small nodule in the left hemipelvis measuring 1.2 x 1.2 cm, enlarged right inguinal lymph node measuring 1.9 x 1.4 cm and enlarged right paratracheal lymph node measuring 2.4 x 2.3 cm -3 mm left upper lobe pulmonary nodule -Hypervascular left hepatic lesion measuring 2.3 x 2.7 cm -Pathology result pending -oncology will follow in office -GI consult: colonoscopy today Hypoxia, CXR 11/04, Subtle ill-defined opacity overlying the mid-upper right lung ? PNA -start Doxycyline Anemia of chronic disease related to above s/p 1 unit of prbc -monitor Borderline BP--assymptomatic -monitor, consider midodrine if symptomatic or SB consistently less than 100 SIRS criteria resolved-leukocytosis is chronic-improving. Tachycardia and tachypnea resolved. There is no sepsis or severe sepsis on admission, no infection schizophrenia/mood disorder-continue home medications mild persistent asthma-no exacerbation continue Flovent, albuterol p.r.n. Urinary retention -flomax -check PVR as needed DVT prophylaxis-scd, anemia ,haemrroidial bleeding Ongoing need for hospitalization: Intractable pain/possible metastatic disease- need IV pain medications, closely monitor pain. PT eval Quality Stroke Does the patient have a stroke diagnosis?: No VTE Prior VTE?: No VTE Risk Level:: Medical - moderate - high VTE Device Contraindication: Treatment Not Indicated VTE Drug Contraindication: N/A - Med Ordered
[2023-11-06] MEDS: 0.9 % Sodium Chloride Flush 3 ML SYRINGE IVFLUSH ×3 (09:41→23:26)
[2023-11-06] MEDS: cefTRIAXone sodium 1 GM in 0.9 % Sodium Chloride 50 ML IV (09:42)
[2023-11-06] MEDS: Nicotine 21 MG PATCH.TD24 TRANSDERMA (09:42)
[2023-11-06] MEDS: Hydrocortisone 2.5 % Rectal Cr 30 GM TUBE 1 APPL PR (09:47)
[2023-11-06 09:53] LABS: Hematocrit 30.2 % (37.0-47.0); Hemoglobin 9.4 g/dl (12.0-16.0); Mean Corpuscular HGB Conc 31.1 g/dl (31.0-35.0); Mean Corpuscular Hemoglobin 24.1 pg (27.0-33.0); Mean Corpuscular Volume 77.4 fL (80.0-98.0); Mean Platelet Volume 9.4 fL (9.4-12.3); Platelet Count 325 X10*3/uL (160-400); Red Cell Distribution Width 18.5 % (11.0-16.0); White Blood Count 12.1 X10*3/uL (4.8-10.8)
[2023-11-06 10:06] LABS: Anion Gap 12 (12-20); Blood Urea Nitrogen 9 mg/dL (9-16); Calcium 9.8 mg/dL (8.4-10.2); Carbon Dioxide 31 mmol/L (22-29); Chloride 101 mmol/L (96-108); Creatinine Clr Calc Pharmacy 85.9; Estimated Glomerular Filt Rate > 60; Glucose Random 109 mg/dL (60-115); Potassium 3.8 mmol/L (3.3-5.1); Sodium 140 mmol/L (135-145)
--- NOTE | 2023-11-06 11:59 | MHC.SHP ---
Pre-Procedural Eval Section A - 24 Hr Update-Section A only Date of Service: 11/06/23 The patient is an INPATIENT: Yes The patient has been examined within 24 hours of the surgical procedure. The History & Physical has been completed within 30 days and I have reviewed it.: Yes Section B - Complete if H&P > 30 days Chief Complaint: Metastatic cancer intractable pain Allergies: Allergies Allergy/AdvReac Type Severity Reaction Status Date / Time No Known Allergies Allergy Verified 10/28/23 10:36 [No Known Allergies*] Plan I have reviewed the history and physical and performed a pertinent physical examination on my patient. No changes have occurred unless specified. Time Spent With Patient Time: Total time managing care of this patient today ____ minutes.
--- NOTE | 2023-11-06 13:26 | HO.ANESPROP2 ---
HPI - Anesthesia Eval Consult details Narrative: For colonoscopy PMFSH Active Problems Active Problems: All Active Problems Metastatic cancer (Acute) Intractable pain (Acute) Pain management (Acute) Encounter for well woman exam with routine gynecological exam (Acute) Leucocytosis (Chronic) Past Medical History Medical History Schizophrenia Asthma History of gallbladder disease Chronic pain of left knee Low vitamin D level Dyslipidemia Mental health disorder Hx of Lyme disease Congenital deafness Functional capacity: uses cane/walker Family History Family History Mother Hypertension Family history of problems with anesthesia: No Surgical History Surgical History Hx of tubal ligation Hx of appendectomy History of cholecystectomy Hx of foot surgery History of Problems with Anesthesia: No Social History Social History Household Members: None Housing: Apartment Do you presently have visiting nurse or other home services: Yes (followed by [facility] per records) Alcohol intake: former Patient Tobacco Use Status: Current everyday Tobacco user Tobacco use type: Cigarette Cigarette Packs Per Day: 1 Substance Use Type: Marijuana service: No Current occupational status: disabled Meds Allergies Allergy/AdvReac Type Severity Reaction Status Date / Time No Known Allergies Allergy Verified 10/28/23 10:36 [No Known Allergies*] Active Medications: lCurrent Medications Acetaminophen (Acetaminophen 325 Mg Tablet) 650 mg PO Q6H PRN PRN Reason: Pain, Mild (Pain Scale 1-3), fever or headache Last Admin: 11/03/23 14:32 Dose: 650 mg Albuterol Sulfate (Albuterol Sulfate 90 Mcg 8 Gm Inhaler) 2 puff INHALE Q6H PRN PRN Reason: Wheezing Last Admin: 10/28/23 16:23 Dose: 2 puff Ascorbic Acid (Ascorbic Acid 250 Mg Tablet) 250 mg PO BID [facility] Last Admin: 11/06/23 09:28 Dose: Not Given Calcium Carbonate (Calcium Carbonate 750 Mg Tab.Chew) 750 mg PO Q4H PRN PRN Reason: Heartburn Docusate Sodium (Docusate Sodium 100 Mg Capsule) 100 mg PO BID [facility] Last Admin: 11/06/23 09:28 Dose: Not Given Ferrous Sulfate (Ferrous Sulfate 324 Mg Tablet.) 324 mg PO BID [facility] Last Admin: 11/05/23 09:13 Dose: 324 mg Fluticasone/Vilanterol (Fluticasone/Vilanterol 200/25 Blst.W.Dev) 1 puff INHALE RDAILY [facility] Last Admin: 11/06/23 08:58 Dose: Not Given Folic Acid (Folic Acid 1 Mg Tablet) 2 mg PO DAILY [facility] Last Admin: 11/06/23 09:28 Dose: Not Given Hydrocortisone (Hydrocortisone 2.5 % Rectal Cr 30 Gm Tube) 1 appl AL DAILY [facility] Last Admin: 11/06/23 09:47 Dose: 1 appl Hydromorphone HCl (Hydromorphone Hcl 1 Mg/Ml Syringe) 1 mg IVPUSH Q4H PRN; Protocol PRN Reason: Pain, Mild (Pain Scale 1-3) Last Admin: 11/06/23 12:22 Dose: 1 mg Ceftriaxone Sodium 1 gm/ (Sodium Chloride) 50 mls @ 100 mls/hr IV Q24H [facility] Last Infusion: 11/06/23 10:35 Dose: Infused Lorazepam (Lorazepam 0.5 Mg Tablet) 0.5 mg PO BID [facility] Last Admin: 11/06/23 09:28 Dose: Not Given Magnesium Hydroxide (Milk Of Magnesia 30 Ml Oral.Susp) 30 ml PO DAILY PRN PRN Reason: Constipation Last Admin: 11/01/23 08:45 Dose: 30 ml Melatonin (Melatonin 3 Mg Tablet) 6 mg PO BEDTIME PRN PRN Reason: Insomnia Last Admin: 11/05/23 22:45 Dose: 6 mg Nicotine (Nicotine 21 Mg Patch.Td24) 21 mg TRANSDERMA DAILY [facility] Last Admin: 11/06/23 09:42 Dose: 21 mg Ondansetron HCl (Ondansetron Hcl 4 Mg/2 Ml Vial) 4 mg IVPUSH Q8H PRN PRN Reason: Nausea and Vomiting Polyethylene Glycol (Polyethylene Glycol 3350 17 Gm Powd.Pack) 17 gm PO DAILY [facility] Last Admin: 11/06/23 09:28 Dose: Not Given Risperidone (Risperidone 1 Mg Tablet) 1 mg PO BID [facility] Last Admin: 11/06/23 09:29 Dose: Not Given Risperidone (Risperidone 1 Mg Tablet) 4 mg PO BEDTIME [facility] Last Admin: 11/05/23 20:20 Dose: 4 mg Sodium Biphosphate/Sodium Phosphate (Sodium Phosphate,Avery-Dibasic 133 Ml Enema) 133 ml AL ONCE PRN PRN Reason: Constipation Sodium Chloride (0.9 % Sodium Chloride Flush 3 Ml Syringe) 3 ml IVFLUSH QSHIFT [facility] Last Admin: 11/06/23 09:41 Dose: 3 ml Home Medications ?Medication ?Instructions ?Recorded ?Confirmed ?Last Taken ?Type albuterol sulfate 90 mcg/actuation 2 puff PO Q6H PRN Wheezing 02/25/20 10/28/23 Unknown History aerosol inhaler risperidone 4 mg tablet 4 mg PO BEDTIME 02/25/20 10/28/23 Unknown History lorazepam 0.5 mg tablet 0.5 mg PO BID 07/17/23 10/28/23 Unknown History acetaminophen 500 mg tablet 500 - 1,000 mg PO Q8-12H PRN Pain 10/28/23 10/28/23 Unknown History fluticasone 500 mcg-salmeterol 50 1 inh inhalation BID 10/28/23 10/28/23 Unknown History mcg/dose blistr powdr for inhalation (Advair Diskus) nicotine 21 mg/24 hr daily 1 patch transdermal DAILY 10/28/23 10/28/23 Unknown History transdermal patch risperidone 1 mg tablet 1 mg PO BID 10/28/23 10/28/23 Unknown History Exam Height,Weight and Vital Signs: Height 5 ft 2 in Weight 53.2 kg Last Vital Signs Temp 97.2 F 11/06/23 08:00 Pulse 62 11/06/23 08:00 Resp 12 11/06/23 08:00 BP 109/55 L 11/06/23 08:00 Pulse Ox 95 11/06/23 08:00 O2 Del Method Nasal Cannula 11/06/23 08:00 O2 Flow Rate 2 11/06/23 08:00 Pertinent Lab Results Pertinent Lab Results: Laboratory Tests 10/28/23 10/29/23 10/29/23 10:52 06:26 13:38 WBC 16.4 H 13.8 H RBC 4.04 L 3.48 L Hgb 9.5 L 8.1 L Hct 30.2 L 26.1 L MCV 74.8 L 75.0 L MCH 23.5 L 23.3 L MCHC 31.5 31.0 RDW 17.8 H 17.7 H Plt Count 412 H 357 MPV 8.6 L 9.0 L Immature Gran % (Auto) 0.4 0.3 Neut % (Auto) 50.8 44.4 L Lymph % (Auto) 42.9 H 48.3 H Avery % (Auto) 4.9 5.4 Eos % (Auto) 0.6 1.2 Baso % (Auto) 0.4 0.4 Lymph # (Auto) 7.1 H 6.7 H Avery # (Auto) 0.8 0.7 Eos # (Auto) 0.1 0.2 Baso # (Auto) 0.1 0.1 Abs Immat Gran (auto) 0.06 H 0.04 H Absolute Neuts (auto) 8.4 H 6.1 Absolute Nucleated RBC 0.000 0.000 Nucleated RBC % (auto) 0.0 0.0 Smear Tech's Comments VERIFIED VERIFIED Smear Path Review SEE NOTE Sodium 138 138 Potassium 4.1 4.2 Chloride 102 104 Carbon Dioxide 27 29 Anion Gap 13 9 L BUN 10 10 Creatinine 0.76 0.72 Estim Creat Clear Calc 70.0 73.9 Estimated GFR > 60 > 60 Random Glucose 110 100 Calcium 9.1 8.7 Iron 10 L TIBC 175 L % Saturation 6 L Unsat Iron Binding 165 Ferritin 34 Total Bilirubin 0.2 AST 10 ALT 5 Alkaline Phosphatase 89 Total Protein 6.6 Albumin 3.2 L Carcinoembryonic Ag 2.00 Leuk/Lym Interpretation See Note Blood Type Antibody Screen Crossmatch 10/30/23 10/31/23 11/01/23 09:02 04:57 08:37 WBC RBC Hgb 8.0 L 7.8 L 8.6 L Hct 25.0 L 25.3 L 26.9 L MCV MCH MCHC RDW Plt Count MPV Immature Gran % (Auto) Neut % (Auto) Lymph % (Auto) Avery % (Auto) Eos % (Auto) Baso % (Auto) Lymph # (Auto) Avery # (Auto) Eos # (Auto) Baso # (Auto) Abs Immat Gran (auto) Absolute Neuts (auto) Absolute Nucleated RBC Nucleated RBC % (auto) Smear Tech's Comments Smear Path Review Sodium Potassium Chloride Carbon Dioxide Anion Gap BUN Creatinine Estim Creat Clear Calc Estimated GFR Random Glucose Calcium Iron TIBC % Saturation Unsat Iron Binding Ferritin Total Bilirubin AST ALT Alkaline Phosphatase Total Protein Albumin Carcinoembryonic Ag Leuk/Lym Interpretation Blood Type A Positive Antibody Screen NEGATIVE Crossmatch See Detail 11/02/23 11/03/23 11/03/23 07:24 11:58 13:05 WBC RBC Hgb 8.6 L 8.3 L Hct 27.9 L 26.5 L MCV MCH MCHC RDW Plt Count MPV Immature Gran % (Auto) Neut % (Auto) Lymph % (Auto) Avery % (Auto) Eos % (Auto) Baso % (Auto) Lymph # (Auto) Avery # (Auto) Eos # (Auto) Baso # (Auto) Abs Immat Gran (auto) Absolute Neuts (auto) Absolute Nucleated RBC Nucleated RBC % (auto) Smear Tech's Comments Smear Path Review Sodium Potassium Chloride Carbon Dioxide Anion Gap BUN Creatinine Estim Creat Clear Calc Estimated GFR Random Glucose Calcium Iron TIBC % Saturation Unsat Iron Binding Ferritin Total Bilirubin AST ALT Alkaline Phosphatase Total Protein Albumin Carcinoembryonic Ag Leuk/Lym Interpretation Blood Type A Positive Antibody Screen NEGATIVE Crossmatch See Detail 11/05/23 11/06/23 05:20 09:39 WBC 13.1 H 12.1 H RBC 3.80 L 3.90 L Hgb 9.4 L 9.4 L Hct 29.4 L 30.2 L MCV 77.4 L 77.4 L MCH 24.7 L 24.1 L MCHC 32.0 31.1 RDW 18.2 H 18.5 H Plt Count 317 325 MPV 9.4 9.4 Immature Gran % (Auto) Neut % (Auto) Lymph % (Auto) Avery % (Auto) Eos % (Auto) Baso % (Auto) Lymph # (Auto) Avery # (Auto) Eos # (Auto) Baso # (Auto) Abs Immat Gran (auto) Absolute Neuts (auto) Absolute Nucleated RBC 0.000 0.000 Nucleated RBC % (auto) 0.0 0.0 Smear Tech's Comments Smear Path Review Sodium 140 Potassium 3.8 Chloride 101 Carbon Dioxide 31 H Anion Gap 12 BUN 9 Creatinine 0.62 Estim Creat Clear Calc 85.9 Estimated GFR > 60 Random Glucose 109 Calcium 9.8 D Iron TIBC % Saturation Unsat Iron Binding Ferritin Total Bilirubin AST ALT Alkaline Phosphatase Total Protein Albumin Carcinoembryonic Ag Leuk/Lym Interpretation Blood Type Antibody Screen Crossmatch Airway Mallampati Class: II TM Dist: >3cm Neck ROM: Full Denture: Upper and Lower Heart: ok Lungs: ok Assessment and Plan Assessment Anesthesia Assessment: Anesthesia Plan Discussed and Chart Reviewed Final Anesthetic Review Family History of Problems with Anesthesia: No History of Problems with Anesthesia: No NPO: Yes ASA Class: III Final Preanesthetic Review: No Changes in Pt Med Stat, Meds/Allgs Chart Reviewed, Consent Obtained/Reviewed and Anes Risks/Benef Reviewed Patient Risk: Intermediate Procedure Risk: Low Anesthetic Plan Anesthetic Plan: MAC: and Agree w/ Assess. and Plan Disposition: Standard PACU
--- NOTE | 2023-11-06 13:50 | PC.NURSE ---
Patient arrived to [facility] with two IVs. #20 right FA, #22 left hand. Right site asymptomatic, flushed well. Left site infiltrated, painful when flushed, site removed, tolerated well.
[2023-11-06] MEDS: Sodium Phosphate,Mono-Dibasic 133 ML ENEMA PR (13:58)
[2023-11-06] MEDS: Albuterol Sulfate (0.083%) 2.5 MG/3 ML VIAL.NEB INHALE (13:59)
--- NOTE | 2023-11-06 15:16 | PC.NURSE ---
#20g to right fa removed due to infiltrate, warm compress applied to arm
--- NOTE | 2023-11-06 15:20 | PM.OP ---
Brief Operative Note Date of Service: 11/06/23 Pre-op diagnosis: Rectal mass, Metastatic squamous cell cancer Post-op diagnosis: other (Anorectal mass) Procedure: Proctoscopy with biopsies Surgeon: Zaid Awad MD Anesthesia: MAC Was an Hollow Handle Bench Worker used for this Procedure?: No Estimated blood loss (mL): 2.0 Pathology: other (A. Rectal mass) Condition: stable Disposition: PACU
--- NOTE | 2023-11-06 15:21 | PM.EVENT ---
Event Note Date of Service: 11/06/23 Event Note: GI-Proctoscopy with biopsies-Full note dictated Findings: 1. Abnormal tissue in perianal area and deformed anal sphincter. 2. Rectal mass with friability causing obstruction. Biopsies taken. I could not visualize a lumen to advance past the very distal rectum. Imp: Squamous cell cancer of anorectal area. Rec: Check path. Advance diet as tolerated. She says that she has been eating and having some BM's. She drank the bowel prep without vomiting, but if she develops obstruction from the mass she would need consideration of a diverting colostomy. Continued Oncology follow up for any treatment options of XRT/Chemo. I discussed these findings with her sister, Shaina, in detail. I reviewed all of this with Yanna with a signs and displays salesperson as well. Thanks Time Spent With Patient Time: Total time managing care of this patient today ____ minutes.
--- NOTE | 2023-11-06 16:22 | PC.NURSE ---
Diaper changed ,small amt of bloody drainage present
--- NOTE | 2023-11-06 17:04 | PC.NURSE ---
Patient refuses sequentials,encouraged activity and leg excercises '
[2023-11-06] MEDS: Ferrous Sulfate 324 MG TABLET.DR PO (20:40)
[2023-11-06] MEDS: risperiDONE 1 MG TABLET PO (20:40)
[2023-11-06] MEDS: LORazepam 0.5 MG TABLET PO (20:40)
[2023-11-06] MEDS: Docusate Sodium 100 MG CAPSULE PO (20:40)
[2023-11-06] MEDS: risperiDONE 1 MG TABLET 4 MG PO (20:40)
[2023-11-06] MEDS: Ascorbic Acid 250 MG TABLET PO (20:41)
[2023-11-06] MEDS: Melatonin 3 MG TABLET 6 MG PO (21:56)
[2023-11-07] VITALS (10 sets, daily range): BP systolic 81–125; BP diastolic 51–60; PULSE 66–84; RESP 16–18; TEMP 36.2–37.4; O2SAT 92–98
[2023-11-07] MEDS: HYDROmorphone HCl 1 MG/ML SYRINGE IVPUSH (01:45)
--- NOTE | 2023-11-07 02:35 | OP_ITS ---
DATE OF SERVICE: 11/06/2023 SURGEON: Zaid Awad MD INDICATIONS: The patient presents for evaluation of known metastatic squamous cell carcinoma and abnormal imaging of CT scan of rectum. Full consent has been obtained from her for this, including risks of bleeding and perforation. PREOPERATIVE DIAGNOSIS: Abnormal imaging of the rectum on CT scan and known metastatic squamous cell carcinoma. POSTOPERATIVE DIAGNOSIS: Abnormal imaging of the rectum on CT scan and known metastatic squamous cell carcinoma, anorectal mass. PROCEDURE PERFORMED: Proctoscopy with biopsies. ESTIMATED BLOOD LOSS: COMPLICATIONS: ANESTHESIA: Monitored anesthesia care. ASSISTANTS: SPECIMENS: DESCRIPTION OF PROCEDURE: The patient was placed in left lateral decubitus position. The exam of the perianal area was quite remarkable for what appeared to be some mass-like tissue coming from the orifice with a poor sphincter tone. A digital exam revealed some palpable mass. The Olympus videopediatric colonoscope was entered into the anal canal and short ways into the very lower rectum. At this level, there was a large mass-like lesion, which was quite friable. I could not visualize any definitive lumen and therefore, I did not attempt to go any further. Multiple biopsies were obtained from the mass, which was quite friable. The scope could not be retroflexed. The scope was then withdrawn from the patient. She tolerated the procedure well and was returned to recovery area in stable condition. 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 PLAN: Further management will be by the Oncology service. She describes that she was able to drink the prep and did not have vomiting, but at some point, given the appearance on today's exam, she may need a diverting colostomy for palliation. Zaid Awad MD RMW/MODL / [id number]
--- NOTE | 2023-11-07 05:22 | PC.NURSE ---
[id number]; Patient assisted to bedside commode multiple times, voiding, some light bleeding noted on patient's pads. No bowel movements at this time.
[2023-11-07] MEDS: 0.9 % Sodium Chloride Flush 3 ML SYRINGE IVFLUSH ×2 (06:06→20:16)
[2023-11-07] MEDS: oxyCODONE HCl Immed Release 5 MG TABLET 10 MG PO ×5 (06:06→22:06)
[2023-11-07] MEDS: oxyCODONE HCl ER 10 MG TAB.ER.12H 20 MG PO ×2 (06:58→20:15)
[2023-11-07] MEDS: polyethylene glycoL 3350 17 GM POWD.PACK PO (07:00)
[2023-11-07] MEDS: Nicotine 21 MG PATCH.TD24 TRANSDERMA (07:00)
[2023-11-07] MEDS: risperiDONE 1 MG TABLET PO ×2 (07:01→20:16)
[2023-11-07] MEDS: Docusate Sodium 100 MG CAPSULE PO ×2 (07:01→20:15)
[2023-11-07] MEDS: Ascorbic Acid 250 MG TABLET PO ×2 (07:01→20:15)
[2023-11-07] MEDS: Folic Acid 1 MG TABLET 2 MG PO (07:01)
[2023-11-07] MEDS: Ferrous Sulfate 324 MG TABLET.DR PO ×2 (07:01→20:15)
[2023-11-07] MEDS: LORazepam 0.5 MG TABLET PO (07:01)
[2023-11-07] MEDS: Hydrocortisone 2.5 % Rectal Cr 30 GM TUBE 1 APPL PR (07:04)
[2023-11-07 07:21] LABS: Hematocrit 30.6 % (37.0-47.0); Hemoglobin 9.7 g/dl (12.0-16.0); Mean Corpuscular HGB Conc 31.7 g/dl (31.0-35.0); Mean Corpuscular Hemoglobin 24.6 pg (27.0-33.0); Mean Corpuscular Volume 77.7 fL (80.0-98.0); Mean Platelet Volume 11.3 fL (9.4-12.3); Platelet Count 312 X10*3/uL (160-400); Red Blood Count 3.94 X10*6/uL (4.20-5.50); Red Cell Distribution Width 18.8 % (11.0-16.0)
[2023-11-07 08:11] LABS: Anion Gap 13 (12-20); Blood Urea Nitrogen 8 mg/dL (9-16); Calcium 10.2 mg/dL (8.4-10.2); Carbon Dioxide 29 mmol/L (22-29); Chloride 103 mmol/L (96-108); Creatinine Clr Calc Pharmacy 79.4; Estimated Glomerular Filt Rate > 60; Glucose Fasting 106 mg/dL (60-99); Sodium 141 mmol/L (135-145)
[2023-11-07] MEDS: Fluticasone/Vilanterol 200/25 BLST.W.DEV 1 PUFF INHALE (08:35)
[2023-11-07 09:06] LABS: Atypical Lymph Absolute Manual 0.4 x10*3/uL; Atypical Lymphs Percent Manual 3 % (0-6); Band Neutrophils Percent 2 % (3-5); Lymphocytes Absolute Manual 4.6 X10*3/uL (1.2-4.9); Lymphocytes Percent Manual 38 % (20-40); Monocytes Absolute Manual 0.7 X10*3/uL (0.1-1.2); Monocytes Percent Manual 6 % (2-11); Neutrophils Absolute Manual 6.4 X10*3/uL (2.0-8.3); Neutrophils Percent Manual 51 % (45-73)
[2023-11-07 09:10] LABS: Smudge Cells PRESENT
[2023-11-07 09:14] LABS: Hypochromasia 1+ (5-14) /OIF; Platelet Estimate NORMAL (NORMAL); Platelet Morphology Comment NORMAL; RBC Morphology NOTED
[2023-11-07] MEDS: cefTRIAXone sodium 1 GM in 0.9 % Sodium Chloride 50 ML IV (09:44)
[2023-11-07] MEDS: Acetaminophen 325 MG TABLET 650 MG PO ×2 (09:44→19:27)
--- NOTE | 2023-11-07 13:44 | MHC.CLN ---
F/U DIET=REGULAR, LOW FIBER. PT RECEIVING ENSURE TID PROVIDES 1050KCALS, 60G PROTEIN WITH 100% ACCEPTANCE. PO INTAKE VARIABLE, 0-100%, WITH AVERAGE INTAKE APPROX 50%. SKIN WITH REDNESS TO BUTTOCKS. MONITOR PO INTAKE AND ENCOURAGE SUPPLEMENTS.
--- NOTE | 2023-11-07 13:59 | HO.POSTANES ---
Post Anesthesia Evaluation Post Anesthesia Evaluation Date of Service: 11/07/23 Vital Signs: Vital Signs Temp Pulse Resp BP Pulse Ox O2 Del Method O2 Flow Rate 11/07/23 11:43 99.3 F 70 18 89/55 L 96 Room Air 11/07/23 11:33 92 Room Air 11/07/23 08:36 66 17 11/07/23 08:24 92/60 11/07/23 07:58 97.9 F 66 18 81/51 L 95 Nasal Cannula 2 11/07/23 03:11 97.4 F 68 16 93/55 L 97 Nasal Cannula 2 Anesthesia: Monitored Mental Status: Awake Pain Control: Satisfactory Nausea/Vomiting: None Hydration: Adequate Anesthesia-Related Issues: No Anes. Related Issues
--- NOTE | 2023-11-07 15:37 | MHC.CM.PN ---
EMR REVIEWED AND PER MD ROUNDS, PT MAY DC HOME TODAY. CHRYSTAL ROBB UPDATED. CM WILL CONTINUE TO FOLLOW WITH ANY CHANGE TO PLAN.
[2023-11-07] MEDS: Amoxicillin/Potassium Clav 875 MG TABLET PO (20:15)
[2023-11-07] MEDS: risperiDONE 1 MG TABLET 4 MG PO (20:16)
[2023-11-07] MEDS: Melatonin 3 MG TABLET 6 MG PO (21:39)
[2023-11-08] MEDS: oxyCODONE HCl Immed Release 5 MG TABLET 10 MG PO ×3 (03:08→12:38)
[2023-11-08 03:12] VITALS: BP 90/52; PULSE 65; RESP 16; TEMP 36.2; O2SAT 98
[2023-11-08 07:39] VITALS: BP 92/54; PULSE 66; RESP 17; TEMP 36.7; O2SAT 95
[2023-11-08] MEDS: Fluticasone/Vilanterol 200/25 BLST.W.DEV 1 PUFF INHALE (07:58)
[2023-11-08 08:00] VITALS: PULSE 66; RESP 16; O2SAT 95
[2023-11-08] MEDS: Nicotine 21 MG PATCH.TD24 TRANSDERMA (08:01)
[2023-11-08] MEDS: polyethylene glycoL 3350 17 GM POWD.PACK PO (08:02)
[2023-11-08] MEDS: Amoxicillin/Potassium Clav 875 MG TABLET PO (08:02)
[2023-11-08] MEDS: Ascorbic Acid 250 MG TABLET PO (08:02)
[2023-11-08] MEDS: Folic Acid 1 MG TABLET 2 MG PO (08:02)
[2023-11-08] MEDS: Ferrous Sulfate 324 MG TABLET.DR PO (08:03)
[2023-11-08] MEDS: Docusate Sodium 100 MG CAPSULE PO (08:03)
[2023-11-08] MEDS: 0.9 % Sodium Chloride Flush 3 ML SYRINGE IVFLUSH (08:07)
--- NOTE | 2023-11-08 09:14 | HO.PM.IMPN ---
Subjective Subjective Date of Service: 11/08/23 Interval History: no new symptoms seems comfortable, spoke to her with sing language iterpreter remotely Physical Exam Vital Signs: Vital Signs: Last Vital Signs Temp 98.1 F 11/08/23 07:39 Pulse 66 11/08/23 08:00 Resp 16 11/08/23 08:00 BP 92/54 L 11/08/23 07:39 Pulse Ox 95 11/08/23 07:39 O2 Del Method Room Air 11/08/23 07:39 O2 Flow Rate 2 11/07/23 07:58 BMI result Body Mass Index 21.4 Const: Other: General: no distress Resp: CTA bilateral CVS: S1,S2,RRR GI: +BS, NT, no distention Skin: No rash Neuro: motor grossly intact Psych: appropriate affect Objective Data Active Medications Acetaminophen (Acetaminophen 325 Mg Tablet) 650 mg PO Q6H PRN PRN Reason: Pain, Mild (Pain Scale 1-3), fever or headache Last Admin: 11/07/23 19:27 Dose: 650 mg Documented By: ARACELIS Albuterol Sulfate (Albuterol Sulfate 90 Mcg 8 Gm Inhaler) 2 puff INHALE Q6H PRN PRN Reason: Wheezing Last Admin: 10/28/23 16:23 Dose: 2 puff Documented By: GRAYSON Amoxicillin/Clavulanate Potassium (Amoxicillin/Potassium Clav 875 Mg Tablet) 875 mg PO BID [facility] Last Admin: 11/08/23 08:02 Dose: 875 mg Documented By: JOSE LUIS Ascorbic Acid (Ascorbic Acid 250 Mg Tablet) 250 mg PO BID [facility] Last Admin: 11/08/23 08:02 Dose: 250 mg Documented By: JOSE LUIS Calcium Carbonate (Calcium Carbonate 750 Mg Tab.Chew) 750 mg PO Q4H PRN PRN Reason: Heartburn Docusate Sodium (Docusate Sodium 100 Mg Capsule) 100 mg PO BID [facility] Last Admin: 11/08/23 08:03 Dose: 100 mg Documented By: JOSE LUIS Ferrous Sulfate (Ferrous Sulfate 324 Mg Tablet.Dr) 324 mg PO BID [facility] Last Admin: 11/08/23 08:03 Dose: 324 mg Documented By: JOSE LUIS Fluticasone/Vilanterol (Fluticasone/Vilanterol 200/25 Blst.W.Dev) 1 puff INHALE RDAILY [facility] Last Admin: 11/08/23 07:58 Dose: 1 puff Documented By: SANJANA Folic Acid (Folic Acid 1 Mg Tablet) 2 mg PO DAILY [facility] Last Admin: 11/08/23 08:02 Dose: 2 mg Documented By: JOSE LUIS Hydrocortisone (Hydrocortisone 2.5 % Rectal Cr 30 Gm Tube) 1 appl [place] DAILY [facility] Last Admin: 11/07/23 07:04 Dose: 1 appl Documented By: ARTHUR Hydromorphone HCl (Hydromorphone Hcl 1 Mg/Ml Syringe) 1 mg IVPUSH Q4H PRN; Protocol PRN Reason: Pain, Mild (Pain Scale 1-3) Last Admin: 11/07/23 01:45 Dose: 1 mg Documented By: TUMRADHA Magnesium Hydroxide (Milk Of Magnesia 30 Ml Oral.Susp) 30 ml PO DAILY PRN PRN Reason: Constipation Last Admin: 11/01/23 08:45 Dose: 30 ml Documented By: KAREN Melatonin (Melatonin 3 Mg Tablet) 6 mg PO BEDTIME PRN PRN Reason: Insomnia Last Admin: 11/07/23 21:39 Dose: 6 mg Documented By: ARACELIS Naloxone HCl (Naloxone Hcl 0.4 Mg/Ml Vial) 0.04 mg IVPUSH Q5M PRN PRN Reason: Excessive sedation or RR < 8 Nicotine (Nicotine 21 Mg Patch.Td24) 21 mg TRANSDERMA DAILY [facility] Last Admin: 11/08/23 08:01 Dose: 21 mg Documented By: JOSE LUIS Ondansetron HCl (Ondansetron Hcl 4 Mg/2 Ml Vial) 4 mg IVPUSH Q8H PRN PRN Reason: Nausea and Vomiting Oxycodone HCl (Oxycodone Hcl Er 10 Mg Tab.Er.12h) 20 mg PO BID [facility] Last Admin: 11/07/23 20:15 Dose: 20 mg Documented By: ODRISGabriella Oxycodone HCl (Oxycodone Hcl Immed Release 5 Mg Tablet) 10 mg PO Q4H PRN PRN Reason: Pain, Severe (Pain Scale 7-10) Last Admin: 11/08/23 07:41 Dose: 10 mg Documented By: JOSE LUIS Polyethylene Glycol (Polyethylene Glycol 3350 17 Gm Powd.Pack) 17 gm PO DAILY [facility] Last Admin: 11/08/23 08:02 Dose: 17 gm Documented By: JOSE LUIS Risperidone (Risperidone 1 Mg Tablet) 1 mg PO BID [facility] Last Admin: 11/07/23 20:16 Dose: 1 mg Documented By: ARACELIS Risperidone (Risperidone 1 Mg Tablet) 4 mg PO BEDTIME [facility] Last Admin: 11/07/23 20:16 Dose: 4 mg Documented By: ARACELIS Sodium Chloride (0.9 % Sodium Chloride Flush 3 Ml Syringe) 3 ml IVFLUSH QSHIFT [facility] Last Admin: 11/08/23 08:07 Dose: 3 ml Documented By: JOSE LUIS Labs 11/07/23 05:15 11/07/23 05:15 Labs: Laboratory Results - last 24 hr 11/07/23 05:15 Neutrophils % (Manual) 51 Band Neutrophils % 2 L Lymphocytes % (Manual) 38 Atypical Lymphs % (Man) 3 Monocytes % (Manual) 6 Abs Neuts (Manual) 6.4 Lymphocytes # (Manual) 4.6 Atyp Lymphs # (Manual) 0.4 Monocytes # (Manual) 0.7 Smudge Cells PRESENT Platelet Estimate NORMAL Plt Morphology Comment NORMAL RBC Morphology NOTED Hypochromasia 1+ (5-14) Assessment and Plan (1) Metastatic cancer: Status: Acute (2) Intractable pain: Status: Acute Assessment and Plan: 52-year-old female with history of schizophrenia, anxiety/depression, and mild persistent asthma who is deaf and requires ASL interpretation admitted for further management of intractable pain r/t metastatic cancer. Intractable pain r/t metastatic cancer -continue oxycodone and oxycontin adjusted as needed Metastatic cancer -CT Chest/abd/pelvis 10/22 shows: -infiltrative soft tissue mass in the low pelvis/presacral region measuring 6.6 x 5.4 x 10.1 cm with invasion of the rectosigmoid colon as well as service and vagina with extension into the perineum. There also small free fluid and inflammatory changes in the presacral space. -possible metastatic disease with a small nodule in the left hemipelvis measuring 1.2 x 1.2 cm, enlarged right inguinal lymph node measuring 1.9 x 1.4 cm and enlarged right paratracheal lymph node measuring 2.4 x 2.3 cm -3 mm left upper lobe pulmonary nodule -Hypervascular left hepatic lesion measuring 2.3 x 2.7 cm -Pathology result pending -oncology will follow in office -GI consult: 11/05: 1. Abnormal tissue in perianal area and deformed anal sphincter. 2. Rectal mass with friability causing obstruction. Biopsies taken. I could not visualize a lumen to advance past the very distal rectum. Imp: Squamous cell cancer of anorectal area. Hypoxia, CXR 11/04, Subtle ill-defined opacity overlying the mid-upper right lung ? PNA -start Ceftriaxone, now changed to Augmentin. O2 sat is normal on room air Anemia of chronic disease related to above s/p 1 unit of prbc on 11/02 -H/H stable, Borderline BP--assymptomatic -monitor, consider midodrine if symptomatic or SB consistently less than 100 SIRS criteria resolved-leukocytosis is chronic-improving. Tachycardia and tachypnea resolved. There is no sepsis or severe sepsis on admission, no infection schizophrenia/mood disorder-continue home medications mild persistent asthma-no exacerbation continue Flovent, albuterol p.r.n. Urinary retention -flomax -check PVR as needed DVT prophylaxis-scd, anemia ,haemrroidial bleeding Ongoing need for hospitalization: Intractable pain/possible metastatic disease-need IV pain medications, closely monitor pain. PT to reassess for dc Quality Stroke Does the patient have a stroke diagnosis?: No VTE Prior VTE?: No VTE Risk Level:: Medical - moderate - high VTE Device Contraindication: Treatment Not Indicated VTE Drug Contraindication: N/A - Med Ordered
[2023-11-08] MEDS: risperiDONE 1 MG TABLET PO (09:40)
[2023-11-08] MEDS: oxyCODONE HCl ER 10 MG TAB.ER.12H 20 MG PO (09:40)
[2023-11-08] MEDS: Hydrocortisone 2.5 % Rectal Cr 30 GM TUBE 1 APPL PR (09:42)
--- NOTE | 2023-11-08 11:47 | MHC.CM.PN ---
pt dc today tereso notified of dc call placed to sister to take pt home l/m
--- NOTE | 2023-11-08 12:33 | W.MHC.F2F ---
Service Date Service Date: 11/08/23 Encounter Date of encounter: 11/08/23 Reasons for Services Signs and symptoms assessed: weakness from cancer, and hospitalization Reason for halfway: medication management and teach disease management Reason for physical therapy: home safety and mobility, therapeutic exercises and energy conservation Homebound: Leaving the home is medically contraindicated at this time without the asist of a device and/or another person due th the listed conditions above and below. Reason homebound: shortness of breath at rest and weakness related to hospital stay Homebound supporting statement: homebound due to metastatic cancer, and prolonged hospitalization, intractable pain Certification: Based on the above findings, I certify that this patient is confined to the home and needs intermittent halfway care, physical therapy and/or speech therapy, or continues to need occupational therapy. The patient is under my care, and I have initiated the establishment of the plan of care. The patient will be followed by a physician who will periodically review the plan of care. Time Spent With Patient Time: Total time managing care of this patient today ____ minutes.
--- NOTE | 2023-11-08 12:42 | P.DS_ITS ---
DS: Providers Provider Date of Service: 11/08/23 Date of admission: 10/28/23 14:40 Date of discharge: 11/08/23 Primary care physician: Sneha Li MD Consults: 10/28/23 14:46 Consult to Hematology / Oncology Routine Consulting Provider: [facility] [place]/Hematology Reason for consultation: metastatic cancer, intractable pain 11/05/23 09:43 Consult to Gastroenterology Routine Consulting Provider: Zaid Awad Reason for consultation: metastatic disease, ? rectal cancer ? need for colonscopy DS: Diagnosis Discharge Diagnosis (1) Metastatic cancer: Status: Acute (2) Intractable pain: Status: Acute DS: Summary Hospital Course Hospital Course: admission hpi Chief Complaint: intractable pain 52-year-old female with history of schizophrenia, anxiety/depression, and mild persistent asthma who is deaf and requires ASL interpretation presents to the ED earlier today [facility] for [facility] of diffuse severe pain from the neck down, worst in the abdomen. engagement specialist Abhinav [id number] used during exam and interview. She states that she has been experiencing 10/10 pain for several weeks. She has also lost over 20 lb unintentionally over the last month. She states she does experience some anorexia and is only eating about 1 meal per day but is tolerating fluids. She has been following with her PCP with recent CT chest/abdomen/pelvis showing infiltrative soft tissue mass in the presacral region invading the rectosigmoid colon as well as the cervix and vagina with extension into the perineum as well as possible metastatic lesions in the left hepatic lobe, left hemipelvis and left upper lung. PCP recommended patient come to the ED for IV pain medication. She has been following with Dr. Dorsey previously due to chronic leukocytosis with next steps including PET scan and biopsy however imaging results are more recent. Since arrival, patient with soft blood pressures but no hypotension, mildly tachycardic to 106. Vitals otherwise within normal limits. She has a leukocytosis of 16.4 which is chronic. H/H 9.5/30.2%, MCV 74.8. Platelets 412. In the ED has been given multiple doses of IV morphine, ketorolac and will be admitted for further management of intractable pain related to metastatic cancer. Hospital course: Patient was admitted for pain management for what appears to metastic cancer as detail from CT from 9/12 with finding as below -CT Chest/abd/pelvis: -infiltrative soft tissue mass in the low pelvis/presacral region measuring 6.6 x 5.4 x 10.1 cm with invasion of the rectosigmoid colon as well as service and vagina with extension into the perineum. There also small free fluid and inflammatory changes in the presacral space. -possible metastatic disease with a small nodule in the left hemipelvis measuring 1.2 x 1.2 cm, enlarged right inguinal lymph node measuring 1.9 x 1.4 cm and enlarged right paratracheal lymph node measuring 2.4 x 2.3 cm -3 mm left upper lobe pulmonary nodule -Hypervascular left hepatic lesion measuring 2.3 x 2.7 cm -Pathology result pending Patient has been managed thus far with oxycodone and oxycontin with good effect. 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 She had colonoscopy on 11/[address] Awad with finding of 1. Abnormal tissue in perianal area and deformed anal sphincter. 2. Rectal mass with friability causing obstruction. Biopsies taken. I could not visualize a lumen to advance past the very distal rectum. Dr. Dorsey (oncologist) has been following her and will arrange for outpatient PET scan and further treatment. Hypoxia, CXR 11/04, Subtle ill-defined opacity overlying the mid-upper right lung ? PNA -started on Ceftriaxone, WBC stable, no fever, hypoxia likely in part due to lung mets. Will change to oral Augmentin at discharge for 7 days. Anemia of chronic disease related to above s/p 1 unit of prbc, H/H has been stable. Borderline BP--assymptomatic -monitor, consider midodrine if symptomatic or SB consistently less than 100 SIRS criteria resolved-leukocytosis is chronic-improving. Tachycardia and tachypnea resolved. There is no sepsis or severe sepsis on admission, no infection schizophrenia/mood disorder-continue home medications mild persistent asthma-no exacerbation continue Flovent, albuterol p.r.n. Urinary retention -flomax -check PVR as needed Time Attestation Discharge Coordination Time (in mins): 45 Quality: Safe Use of Opioids Does Pt have an Active Cancer Diagnosis on the Problem List?: No Quality: Stroke Does the patient have a stroke diagnosis?: No Physical Exam Vital Signs: Vital Signs: Selected Entries 11/08/23 07:39 11/08/23 08:00 Temperature 98.1 F Pulse Rate 66 Respiratory Rate 17 Pulse Oximetry 95 Oxygen Delivery Me thod Room Air Const: Other: General: no distress Resp: CTA bilateral CVS: S1,S2,RRR GI: +BS, NT, no distention Skin: No rash Neuro: motor grossly intact Psych: appropriate affect DS: Data Data Completed and Pending Completed studies during hospitalization [Text1]: Pending at discharge 10/29/23 13:38 Surgical Path [Surgical] [PTH] Routine Pending studies at discharge: Pending at discharge 11/06/23 14:58 Surgical [PTH] Routine Labs on day of discharge: Laboratory Results - last 24 hr 11/06/23 11/07/23 09:39 05:15 WBC 12.1 H 12.0 H RBC 3.90 L 3.94 L Hgb 9.4 L 9.7 L Hct 30.2 L 30.6 L MCV 77.4 L 77.7 L MCH 24.1 L 24.6 L MCHC 31.1 31.7 RDW 18.5 H 18.8 H Plt Count 325 312 MPV 9.4 11.3 Immature Gran % (Auto) Cancelled Neut % (Auto) Cancelled Lymph % (Auto) Cancelled Johnston % (Auto) Cancelled Eos % (Auto) Cancelled Baso % (Auto) Cancelled Lymph # (Auto) Cancelled Johnston # (Auto) Cancelled Eos # (Auto) Cancelled Baso # (Auto) Cancelled Abs Immat Gran (auto) Cancelled Absolute Neuts (auto) Cancelled Absolute Nucleated RBC 0.000 0.000 Nucleated RBC % (auto) 0.0 0.0 Neutrophils % (Manual) 51 Band Neutrophils % 2 L Lymphocytes % (Manual) 38 Atypical Lymphs % (Man) 3 Monocytes % (Manual) 6 Abs Neuts (Manual) 6.4 Lymphocytes # (Manual) 4.6 Atyp Lymphs # (Manual) 0.4 Monocytes # (Manual) 0.7 Smudge Cells PRESENT Platelet Estimate NORMAL Plt Morphology Comment NORMAL RBC Morphology NOTED Hypochromasia 1+ (5-14) Sodium 140 141 Potassium 3.8 4.0 Chloride 101 103 Carbon Dioxide 31 H 29 Anion Gap 12 13 BUN 9 8 L Creatinine 0.62 0.67 Estim Creat Clear Calc 85.9 79.4 Estimated GFR > 60 > 60 Random Glucose 109 Fasting Glucose 106 H Calcium 9.8 D 10.2 Discharge Plan Discharge Anticipated Discharge Date/Time: 11/08/23 12:30 Patient Disposition: Home Health Service Discharge Diagnosis: Cancer, anemia, Referrals: [facility] [Other] - 1 Week Sneha Li MD [Primary Care Provider] - 1 Week Discharge Medications: New hydrocortisone [Proctozone-HC] 2.5 % Cream With Perineal Applicator 1 appl DE DAILY Qty: 30 0RF ascorbic acid (vitamin C) 250 mg Tablet 250 mg PO BID Qty: 60 0RF oxycodone [OxyContin] 10 mg Tablet,Oral Only,Ext.Rel.12 Hr 20 mg PO BID Qty: 60 0RF Rx Instructions: Partial Fill upon patient request. polyethylene glycol 3350 17 gram Powder In Packet 17 g PO DAILY PRN (Reason: consitpation) Qty: 100 0RF melatonin 3 mg Tablet 6 mg PO BEDTIME PRN (Reason: Insomnia) Qty: 30 0RF oxycodone 10 mg tablet 10 mg PO Q4H PRN (Reason: pain (scale score 7-10)) Qty: 60 0RF Rx Instructions: Partial Fill upon patient request. magnesium hydroxide [Milk of Magnesia] 400 mg/5 mL Suspension 30 ml PO DAILY PRN (Reason: Constipation) Qty: 3000 0RF docusate sodium 100 mg Capsule 100 mg PO BID Qty: 18 0RF amoxicillin-pot clavulanate 875-125 mg Tablet 1 tab PO BID Qty: 8 0RF Continued albuterol sulfate 90 mcg/actuation HFA aerosol inhaler 2 puff PO Q6H PRN (Reason: Wheezing) risperidone 4 mg Tablet 4 mg PO BEDTIME folic acid 1 mg Tablet 1 mg PO DAILY Qty: 90 3RF ferrous sulfate 325 mg (65 mg iron) Tablet 325 mg PO BID Qty: 60 1RF acetaminophen 500 mg Tablet 500 - 1,000 mg PO Q8-12H PRN (Reason: Pain) fluticasone propion-salmeterol [Advair Diskus] 500-50 mcg/dose Blister With Device 1 inh INHALATION BID nicotine 21 mg/24 hr Patch 24 Hour 1 patch TRANSDERMAL DAILY risperidone 1 mg Tablet 1 mg PO BID lorazepam 0.5 mg tablet 0.5 mg PO BID Discharge Orders: Discharge Order (Routine); Ordered 11/08/23 Ordered By: James Cramer Diet: Advance to usual diet Activity on Discharge: As tolerated Stand Alone Forms: Patient Portal Discharge page Print Language: Citizen Of [place] Sign Language Care Plan Goals: treatment for metastatic cancer pain controlled Health Concerns: Squamous cell cancer of anorectal area with metasis Plan of Treatment: take Augmentin for pneumonia. take oxycodone and OxyContin as directed follow-up with your primary care doctor within a week follow-up with Dr. Dorsey Assessment: see above
== END 2023-11-08 14:11 | disposition home health service (06) | DRG 823 ==
LOC: HO.ED 14:13 → HO.EDOVER 14:53 → HO.IMC 19:36 → HO.S3 10-30 14:37
PROVIDERS: Internal Medicine; Internal Medicine Medical Oncology; Pathology Anatomic Pathology & Clinical Pathology; Admitting Provider Physician Assistant; Emergency Provider Emergency Medicine; PCP Family Medicine; Visit Provider Internal Medicine
PROC: 0DJD8ZZ Inspection of Lower Intestinal Tract, Via Natural or Artificial Opening Endoscopic (ICD-10-PCS; CPT 45378; principal; 2023-11-06 14:00)
DX: C77.4 Secondary and unspecified malignant neoplasm of inguinal and lower limb lymph nodes (principal); J18.9 Pneumonia, unspecified organism; C21.8 Malignant neoplasm of overlapping sites of rectum, anus and anal canal; R65.10 Systemic inflammatory response syndrome (SIRS) of non-infectious origin without acute organ dysfunction; C78.02 Secondary malignant neoplasm of left lung; D50.9 Iron deficiency anemia, unspecified; D52.9 Folate deficiency anemia, unspecified; H90.5 Unspecified sensorineural hearing loss; K59.00 Constipation, unspecified; J45.30 Mild persistent asthma, uncomplicated; D63.0 Anemia in neoplastic disease; R33.9 Retention of urine, unspecified; G89.3 Neoplasm related pain (acute) (chronic); R09.02 Hypoxemia; E86.1 Hypovolemia; E86.0 Dehydration; F20.9 Schizophrenia, unspecified; Z87.891 Personal history of nicotine dependence; Z79.51 Long term (current) use of inhaled steroids; Z79.899 Other long term (current) drug therapy
CPT/HCPCS: 36415; 38505; 71045; 76942; 80048; 80053; 82378; 82728; 83540; 85007; 85014; 85018; 85025; 85027; 86850; 86900; 86901; 86923; 88184; 88185; 88300; 88305; 88341; 88342; 94640; 97162; 99285; J0696; J1170; J1650; J1885; J2270; J2371; J2405; J2704; J7120; P9016; P9047

== ENCOUNTER 2023-10-28 14:40 | Outpatient (BNV) | payer OTHER, SELFPAY | END 2023-10-29 12:45 | PROVIDERS: Admitting Provider Physician Assistant; Emergency Provider Emergency Medicine; PCP Family Medicine; Visit Provider Student in an Organized Health Care Education/Training Program | DX: R59.0 Localized enlarged lymph nodes (principal) | CPT/HCPCS: 38505; 76942 ==

== ENCOUNTER → 2023-10-28 14:40 | Outpatient (BNV) | payer MEDICARE, SELFPAY | PROVIDERS: Admitting Provider Physician Assistant; Emergency Provider Emergency Medicine; PCP Family Medicine; Visit Provider Physician Assistant | DX: C21.1 Malignant neoplasm of anal canal (principal); R52 Pain, unspecified | CPT/HCPCS: 99223; 99231; 99232; 99239; G0180 ==

== ENCOUNTER → 2023-10-28 14:40 | Outpatient (BNV) | payer OTHER, SELFPAY | PROVIDERS: Admitting Provider Physician Assistant; Emergency Provider Emergency Medicine; PCP Family Medicine; Visit Provider Internal Medicine Medical Oncology | DX: C79.9 Secondary malignant neoplasm of unspecified site (principal) | CPT/HCPCS: 99222; 99231 ==

== ENCOUNTER 2023-11-11 10:47 | Inpatient (IN) | payer OTHER, SELFPAY ==
--- NOTE | ~2023-11-11 | MR_ITS ---
EXAMINATION: MRI PELVIS WITH AND WITHOUT CONTRAST CLINICAL INFORMATION: Malignancy. COMPARISON: CT abdomen/pelvis 10/23/2023. TECHNIQUE: Multiple routine MRI sequences through the pelvis were obtained on a high-field 1.5 Tamie MRI before and after the uneventful administration of 6 mL Gadavist gadolinium-based IV contrast. FINDINGS: Examination was not obtained with an adequate protocol for local staging of rectal cancer as a 3 Tamie magnet was not utilized, high-resolution axial T2 images with oblique and coronal reformats centered in the mass were not obtained, and other limitations. Large predominantly right-sided ulcerative mass centered in the anal canal/lower rectum measuring approximately 7.4 x 6.7 cm (anteroposterior x transverse dimensions) and 10.5 cm craniocaudally (6:15). The mass extends cephalad up to approximately 9 cm above the anal verge and 6 cm above the anorectal junction; and extends caudally to involve the entirety of the anal canal to the level of the anal verge. There is invasion of the internal and external anal sphincters, invasion of the levator ani muscle and extension into the right ischioanal fossa. Posteriorly the mass extends to the presacral space, and anteriorly there is invasion of the entire posterior vaginal wall up to the level of the vaginal cuff, some questionable early invasion of the right cervix. The lesion is predominantly of intermediate T2 bright signal with some mucinous component, and demonstrates centrally necrotic elements. There is soft tissue swelling and edema around the mass in the pelvis, perineum and right gluteal region. Anteverted uterus with normal morphology. No uterine lesion. Normal appearance of the endometrium and junctional zone. As above, the large anorectal mass invades the vagina and possibly the right aspect of the cervix. Ovaries are symmetric with normal morphology. Abnormal heterogeneous partially necrotic lymph nodes are noted in the right inguinal region measuring 1.9 x 1.5 cm (10:56) and right external iliac region measuring 2.7 x 0.8 cm (10:44). Additional suspicious partially necrotic heterogeneous round peritumoral implant abutting the left aspect of the lower rectal wall measuring 1.4 cm (10:46). Additional smaller but suspicious round and mildly heterogeneous nodules are noted in the CHAYO territory, iliac territory and mesorectum bilaterally for example a superior rectal node measuring 1 cm (3:10). Small amount of pelvic free fluid. Normal appearance of the urinary bladder. No acute or aggressive appearing osseous findings. MR/MR pelvis wo/w con IMPRESSION: Findings are most consistent with malignancy centered in the anal canal/lower rectum, possibly anal in origin, although evaluation of the origin is limited due to the large size of the lesion. There is invasion of several structures in the pelvis including anal sphincters, pelvic floor musculature, ischioanal fossa, presacral space, vagina and possibly right cervix. Pathologic suspicious lymph nodes are noted at multiple calista stations including inguinal, iliac, mesorectal and CHAYO territories. Recommend colorectal oncology consultation. Electronically signed by: Alia Donaldson MD 11/11/2023 05:11 PM EDT
--- NOTE | ~2023-11-11 | CT_ITS ---
EXAMINATION: CT ABDOMEN AND PELVIS WITHOUT CONTRAST CLINICAL INFORMATION: Constipation with history of malignancy, rule out obstruction COMPARISON: CT chest abdomen pelvis 10/23/2023 TECHNIQUE: Multidetector volumetric imaging was performed from the superior aspect of the liver through the pubic symphysis. Sagittal and coronal reformatted images were obtained on the technologist's workstation. This CT examination was performed using dose optimization techniques as appropriate, variously including the following: *Automated exposure control *Adjustment of mA and/or kV according to patient size (this includes techniques or standardized protocols for targeted exams where dose is matched to indication/reason for exam; i.e. extremities or head) *Use of iterative reconstruction technique DLP: 434 mGy-cm FINDINGS: LUNG BASES: The visualized lung bases are unremarkable. There is bibasilar atelectasis. LIVER, GALLBLADDER, AND BILIARY TREE: The liver is enlarged measuring 20 cm in greatest length.. No focal hepatic lesion or biliary ductal dilatation is present. Status post cholecystectomy. PANCREAS: Unremarkable. SPLEEN: The spleen is enlarged at 15.7 cm in greatest transverse dimension. On the ADRENAL GLANDS: Unremarkable. KIDNEYS AND URETERS: The kidneys are normal in size, shape, and attenuation. No hydronephrosis, hydroureter, or calculi seen. No perinephric stranding. BLADDER: Unremarkable. GASTROINTESTINAL TRACT: Again seen is a large infiltrative mass in the perirectal area to the right of the midline anterior to the coccyx which appears to have increased in size since 10/23/2023. It was better seen on the 10/23/2023 study which was performed with IV contrast. In the transverse plane the mass measures 7.6 x 6.1 cm, previously 6.5 x 5.7 cm. There is loss of the fat plane between this mass and the colon. Moderate stool burden is present in the colon. ABDOMINAL WALL: No significant hernia is appreciated. LYMPH NODES: Small right inguinal lymph node is unchanged. There is some shotty retroperitoneal lymph nodes seen which are unchanged as well. There is a right obturator lymph node present to the left of the rectum that has increased in size from 1.2 x 1.2 cm to 1.5 x 1.1 cm (2:73 compare prior 3:70). A right external iliac node has increased in size from 1.8 x 0.9 cm to 2.1 x 0.9 cm (2:77 compare prior 3:73). Lymphadenopathy better seen and characterized on the pelvic MRI with and without contrast earlier today. VASCULAR: Unremarkable. PELVIC VISCERA: The uterus and adnexa are unremarkable. OSSEOUS STRUCTURES: Unremarkable. CT/CT abdomen pelvis wo IV con IMPRESSION: 1. No evidence of bowel obstruction. 2. Large infiltrative mass in the perirectal area has increased in size since 10/23/2023. 3. Pelvic lymphadenopathy has increased in size. Biopsy results from a right inguinal lymph node are pending. 4. Incidental note made of hepatosplenomegaly and cholecystectomy. Fleischner guidelines were followed. Electronically signed by: Nguyễn Marrufo MD 11/11/2023 07:31 PM EDT
[2023-11-11 11:15] VITALS: BP 115/52; PULSE 70; RESP 14; TEMP 36.8; O2SAT 97; BMI 24.7
[2023-11-11 11:51] LABS: Basophils Absolute Auto 0.1 X10*3/uL (0.0-0.2); Basophils Percent Auto 0.3 % (0-2); Eosinophils Absolute Auto 0.2 X10*3/uL (0.0-0.4); Eosinophils Percent Auto 1.5 % (0-4); Hematocrit 33.3 % (37.0-47.0); Hemoglobin 10.4 g/dl (12.0-16.0); Imm Gran Abs Auto 0.05 X10*3/uL (0.00-0.03); Imm Gran Pct Auto 0.3 % (0.0-0.4); Lymphocytes Percent Auto 41.7 % (20-40); MANUAL DIFF FLAG SCAN; Mean Corpuscular HGB Conc 31.2 g/dl (31.0-35.0); Mean Corpuscular Hemoglobin 24.4 pg (27.0-33.0); Mean Corpuscular Volume 78.2 fL (80.0-98.0); Mean Platelet Volume 9.3 fL (9.4-12.3); Monocytes Absolute Auto 0.9 X10*3/uL (0.1-1.2); Monocytes Percent Auto 6.4 % (2-11); Neutrophils Absolute Auto 7.3 x10*3/uL (2.0-8.3); Neutrophils Percent Auto 49.8 % (45-73); Platelet Count 385 X10*3/uL (160-400); Red Blood Count 4.26 X10*6/uL (4.20-5.50); Red Cell Distribution Width 18.8 % (11.0-16.0); SCAN SMEAR FLAG 1; White Blood Count 14.6 X10*3/uL (4.8-10.8)
[2023-11-11 11:52] LABS: Lymphocytes Absolute Auto 6.1 X10*3/uL (1.2-4.9)
[2023-11-11 12:07] LABS: Alanine Aminotransferase 23 U/L (0-31); Albumin Level 4.2 g/dL (3.5-5.0); Alkaline Phosphatase 115 U/L (39-117); Anion Gap 14 (12-20); Aspartate Amino Transferase 17 U/L (5-31); Bilirubin Direct 0.1 mg/dL (0.0-0.5); Bilirubin Total 0.3 mg/dL (0.0-1.0); Blood Urea Nitrogen 8 mg/dL (9-16); Calcium 10.2 mg/dL (8.4-10.2); Carbon Dioxide 27 mmol/L (22-29); Chloride 102 mmol/L (96-108); Creatinine Clr Calc Pharmacy 72.4; Estimated Glomerular Filt Rate > 60; Glucose Random 113 mg/dL (60-115); Lipase 9 U/L (8-78); Magnesium 2.3 mg/dL (1.6-2.6); Potassium 4.5 mmol/L (3.3-5.1); Sodium 138 mmol/L (135-145); Total Protein 7.6 g/dL (6.5-8.0)
--- NOTE | 2023-11-11 12:08 | ED.GENADULT ---
HPI - General Adult General Chief complaint: General Medical Stated complaint: constipation from oncology Time Seen by Provider: 11/11/23 11:02 Source: patient and RN notes reviewed Mode of arrival: ambulatory Limitations: no limitations History of Present Illness ED Provider: Liliane Ahuja PA-C HPI narrative: This is a 52-year-old female, with a recent diagnosis of poorly differentiated squamous cell carcinoma probably originating from the anus (CT scan of the pelvis from 10/31) schizophrenia, anxiety depression, and mild persistent asthma who is deaf and requires ASL interpretation, who presents emergency department from Oncology due to constipation. She reports from her oncology office, Dr. Dorsey, for a follow-up from her recent hospitalization from -11/07 and was sent to the emergency room today from her office as patient has not had a bowel movement despite taking laxatives. She reports generalized discomfort in the pelvic and anal region. She has had no fevers or chills. No nausea, vomiting or diarrhea. Denies any urinary symptoms. She is scheduled for a PET scan next week. Of note, patient was initially seen in the emergency room as a recent CT scan was performed by her primary care physician with findings showing an infiltrative soft tissue mass in the presacral region and waiting the rectosigmoid colon as well as the cervix and vagina with extension into the perineum as well as probable metastatic lesions in the left hepatic lobe, left hemipelvis, and left upper lobe. She was reporting at that at that time with diffuse abdominal pain. She was then admitted where she was seen and evaluated by Dr. Awad who performed a colonoscopy on 11/05, which revealed abnormal tissue in the perianal area. Rectal mass with friability causing obstruction, biopsies were taken, he could not visualize the lumen to advanced past the distal rectum. Dr. Awad recommended that if she does develop obstruction from the mass she would need consideration of a diverting colostomy. At that time she was having some bowel movements however today she is presenting and has not had a bowel movement in 4-5 days. She was discharged on 11/08/2023 with pain medication and laxatives and was instructed to follow-up with her oncologist for further management. MD complaint: Constipation Onset (ago): day(s) Radiation: non-radiation Relieving factors: none Exacerbating factors: none Associated symptoms: denies other symptoms Treatments prior to arrival: none Related Data Home Medications ?Medication ?Instructions ?Recorded ?Confirmed albuterol sulfate 90 mcg/actuation 2 puff PO Q6H PRN Wheezing 02/25/20 11/11/23 aerosol inhaler risperidone 4 mg tablet 4 mg PO BEDTIME 02/25/20 11/11/23 lorazepam 0.5 mg tablet 0.5 mg PO BID 07/17/23 11/11/23 acetaminophen 500 mg tablet 500 - 1,000 mg PO Q8-12H PRN Pain 10/28/23 11/11/23 fluticasone 500 mcg-salmeterol 50 1 inh inhalation BID 10/28/23 11/11/23 mcg/dose blistr powdr for inhalation (Advair Diskus) nicotine 21 mg/24 hr daily 1 patch transdermal DAILY 10/28/23 11/11/23 transdermal patch risperidone 1 mg tablet 1 mg PO BID 10/28/23 11/11/23 Previous Rx's ?Medication ?Instructions ?Recorded folic acid 1 mg tablet 1 mg PO DAILY #90 tabs 10/20/23 ferrous sulfate 325 mg (65 mg 325 mg PO BID #60 tabs 10/22/23 iron) tablet ascorbic acid (vitamin C) 250 mg 250 mg PO BID #60 tabs 11/07/23 tablet docusate sodium 100 mg capsule 100 mg PO BID #18 caps 11/07/23 hydrocortisone 2.5 % topical cream 1 appl LA DAILY #30 grams 11/07/23 with perineal applicator (Proctozone-HC) magnesium hydroxide 400 mg/5 mL 30 ml PO DAILY PRN Constipation 11/07/23 oral suspension (Milk of Magnesia) #3,000 mL melatonin 3 mg tablet 6 mg (2 x 3 mg) PO BEDTIME PRN 11/07/23 Insomnia #30 tabs oxycodone 10 mg tablet 10 mg PO Q4H PRN pain (scale score 11/07/23 7-10) #60 tabs oxycodone 10 mg tablet,crush 20 mg (2 x 10 mg) PO BID #60 tabs 11/07/23 resistant,extended release 12 hr (OxyContin) polyethylene glycol 3350 17 gram 17 g PO DAILY PRN consitpation 11/07/23 oral powder packet #100 ea amoxicillin 875 mg-potassium 1 tab PO BID #8 tabs 11/08/23 clavulanate 125 mg tablet Allergies Allergy/AdvReac Type Severity Reaction Status Date / Time No Known Allergies Allergy Verified 11/11/23 11:17 [No Known Allergies*] Review of Systems Review of Systems: Yes all other systems are reviewed and are negative Constitutional: Constitutional: Reports as per HPI [facility] Past Medical History Medical History Schizophrenia Asthma History of gallbladder disease Chronic pain of left knee Low vitamin D level Dyslipidemia Mental health disorder Hx of Lyme disease Congenital deafness Surgical History Hx of tubal ligation Hx of appendectomy History of cholecystectomy Hx of foot surgery Family History Family History Mother Hypertension Social History Social History Household Members: None Housing: Apartment Do you presently have visiting nurse or other home services: Yes (followed by [facility] per records) Alcohol intake: former Patient Tobacco Use Status: Former Tobacco user Tobacco use type: Cigarette Cigarette Packs Per Day: 1 Smoked in Last 30 Days: Yes Use of substances other than those prescribed or required for medical reasons: No Substance Use Type: Marijuana Advance Directives: No Advance Directives Information Provided: Yes Patient : No service: No Current occupational status: disabled Physical Exam ED Vital Signs: Vital Signs - 24 hr 11/11/23 11:15 11/11/23 14:00 11/11/23 16:00 Temperature 98.3 F 98.2 F 97.9 F Pulse Rate 70 66 73 Respiratory Rate 14 16 16 Blood Pressure 115/52 L 93/55 L 90/53 L Pulse Oximetry 97 98 99 Oxygen Delivery Method Room Air Room Air Room Air 11/11/23 17:55 Temperature 98.4 F Pulse Rate 66 Respiratory Rate 15 Blood Pressure 99/57 L Pulse Oximetry 95 Oxygen Delivery Method Room Air BMI result Body Mass Index 24.7 Const General: cooperative, comfortable and no acute distress Orientation/consciousness: patient oriented x3 Limitations: no limitations HENMT Head: Yes normal to inspection, Yes normocephalic and Yes atraumatic Ears: hearing grossly normal bilaterally General nose exam: Normal external nose present Face and sinus: Yes normal facial exam Mouth: Normal oral and palatal mucosa present, oropharynx normal and moist mucous membranes Throat: Yes posterior oropharynx normal Eyes General: appearance normal, both eyes and all related structures Eyelids: Yes eyelids normal Conjunctivae: conjunctivae normal Sclerae: sclerae normal Pupils: Equal, round and reactive pupils present EOM: EOMs intact bilaterally Neck Neck: Yes normal visual inspection, Yes full ROM and Yes no lymphadenopathy Lymphatic: no lymphadenopathy noted Chest Chest palpation & inspection: normal inspection of the chest Resp Effort & Inspection: normal respiratory effort and able to speak in complete sentences Auscultation: clear to auscultation bilaterally, no crackles, no rales, no rhonchi and no wheezes Cardio Rate: regular rate Rhythm: regular rhythm Heart sounds: S1 normal heart sound present and S2 normal heart sound present GI Other: Diffuse abdominal tenderness to palpation, abdomen is soft. No rebound or guarding Rectum appears to be dilated with multiple scattered external hemorrhoids, as well as external lesions noted, no surrounding erythema or warmth. Rectal examination performed with Major Doan present at all time. Inspection: Yes normal to inspection Skin General skin exam: no rashes or lesions noted Trauma: no lacerations or abrasions Wounds: no wounds Neuro General: patient oriented x3 and moves all extremities Cranial nerves: Yes Equal, round and reactive pupils present Extrem General: Yes normal to inspection Right upper extremity: normal to inspection Left upper extremity: normal to inspection Right lower extremity: normal to inspection Left lower extremity: normal to inspection Course Reevaluation(s) Reevaluation #1: Still awaiting MRI report. Patient remained stable, we will continue to monitor pending workup. Time: 15:04 Reevaluation #2: Multiple attempts have been made out to [facility] to have this MRI reviewed stat. [facility] is awaiting a Oncology radiologist to read this due to complexity of mass. I reached out to Dr. Dorsey, who advised me that she spoke to Dr. Pelayo. I reached out to Dr. Pelayo, however Dr. Ovalle was the general surgeon oncall. She recommends readmission through medicine and will consult for diverting colostomy. Time: 16:56 Reevaluation #3: Dr. Pelayo reach back out to me, and is also requesting a CT scan of her abdomen to rule out obstruction. I sent a message to Dr. Jenkins for admission as well. Awaiting transfer of care at this point. Time: 17:01 Additional Reevaluation(s): 1718 - MRI read, weaning CT scan to rule out obstruction. Dr. Ovalle currently face timing with family member to discuss current situation. Awaiting transfer of care. 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 I received an expect fall from Dr. Ortiz, and given she has not had a bowel movement in 4-5 days, she would likely benefit from an MRI of her pelvis as it is unclear if there is vaginal involvement, cervical involvement and a MRI will best visualize this for further diagnostic care. Patient is medically complex in regards to this type of cancer, and it currently being worked up. There is a possible discussion of a colostomy bag, Dr. Pelayo was made aware that patient was on her way to the emergency room by Dr. Dorsey. See HPI for further detail. Plan: Labs, MRI of the pelvis Differential Diagnosis Differential Diagnoses: The differential diagnosis associated with the presentation includes Bowel obstruction, malignancy, constipation Admission/Observation Consideration of admission/observation: Escalation of care including admission/observation considered Consult Healthcare Provider Management of the patient was discussed with: [facility] Dr. Dorsey, oncology Lab Data [facility] Lab Attestation statement: I reviewed the patient's lab results. Patient has leukocytosis at 14.6, CBC revealing a microcytic anemia with an H&H of 10.4/33.3, chemistry revealing no electrolyte derangement. 11/11/23 11:44 11/11/23 11:44 Labs: Lab Results 11/11/23 Range/Units 11:44 WBC 14.6 H (4.8-10.8) X10*3/uL RBC 4.26 (4.20-5.50) X10*6/uL Hgb 10.4 L (12.0-16.0) g/dl Hct 33.3 L (37.0-47.0) % MCV 78.2 L (80.0-98.0) fL MCH 24.4 L (27.0-33.0) pg MCHC 31.2 (31.0-35.0) g/dl RDW 18.8 H (11.0-16.0) % Plt Count 385 (160-400) X10*3/uL MPV 9.3 L (9.4-12.3) fL Immature Gran % (Auto) 0.3 (0.0-0.4) % Neut % (Auto) 49.8 (45-73) % Lymph % (Auto) 41.7 H (20-40) % Corson % (Auto) 6.4 (2-11) % Eos % (Auto) 1.5 (0-4) % Baso % (Auto) 0.3 (0-2) % Lymph # (Auto) 6.1 H (1.2-4.9) X10*3/uL Corson # (Auto) 0.9 (0.1-1.2) X10*3/uL Eos # (Auto) 0.2 (0.0-0.4) X10*3/uL Baso # (Auto) 0.1 (0.0-0.2) X10*3/uL Abs Immat Gran (auto) 0.05 H (0.00-0.03) X10*3/uL Absolute Neuts (auto) 7.3 (2.0-8.3) x10*3/uL Absolute Nucleated RBC 0.000 (0.0-0.012) X10*3/uL Nucleated RBC % (auto) 0.0 (0.0-0.2) /100WBC Smear Tech's Comments VERIFIED Sodium 138 (135-145) mmol/L Potassium 4.5 (3.3-5.1) mmol/L Chloride 102 (96-108) mmol/L Carbon Dioxide 27 (22-29) mmol/L Anion Gap 14 (12-20) BUN 8 L (9-16) mg/dL Creatinine 0.80 (0.5-1.4) mg/dL Estim Creat Clear Calc 72.4 Estimated GFR > 60 Random Glucose 113 (60-115) mg/dL Calcium 10.2 (8.4-10.2) mg/dL Magnesium 2.3 (1.6-2.6) mg/dL Total Bilirubin 0.3 (0.0-1.0) mg/dL Direct Bilirubin 0.1 (0.0-0.5) mg/dL AST 17 (5-31) U/L ALT 23 (0-31) U/L Alkaline Phosphatase 115 (39-117) U/L Total Protein 7.6 (6.5-8.0) g/dL Albumin 4.2 (3.5-5.0) g/dL Lipase 9 (8-78) U/L Radiology Impression Discussion of test interpretation with radiology: I have reviewed the radiologist's reading. Radiologist Impression: Findings are most consistent with malignancy centered in the anal canal/lower rectum, possibly anal in origin, although evaluation of the origin is limited due to the large size of the lesion. There is invasion of several structures in the pelvis including anal sphincters, pelvic floor musculature, ischioanal fossa, presacral space, vagina and possibly right cervix. Pathologic suspicious lymph nodes are noted at multiple calista stations including inguinal, iliac, mesorectal and CHAYO territories. Recommend colorectal oncology consultation. External Record Review External record reviewed: Outpatient record, Prior outpatient labs and Prior outpatient radiology Review of CT scan performed on 10/23/2023, see below for report: CT/CT abdomen pelvis w IV con IMPRESSION: Infiltrative soft tissue mass in the low pelvis/presacral region measuring 6.6 x 5.4 x 10.1 cm with invasion of the rectosigmoid colon as well as the cervix and vagina. There is extension into the perineum. Small free fluid and inflammatory changes in the presacral space. This most likely represents neoplasm. PET/CT is recommended. There is possible metastatic disease with a small nodule in the left hemipelvis measuring 1.2 x 1.2 cm, an enlarged right inguinal lymph node measuring 1.9 x 1.4 cm and an enlarged right paratracheal lymph node measuring 2.4 x 2.3 cm. 3 mm left upper lobe pulmonary nodule is nonspecific. Hypervascular left hepatic lesion measuring 2.3 x 2.7 cm may be further characterized with MRI. Splenomegaly. Findings were reviewed and discussed with Dr. Li at 9:40 AM on 10/24/2023. Electronically signed by: Lul Kan MD 10/24/2023 09:40 AM EDT RP Dictated By: Kierra Kan MD Critical Care Time Critical Care Time Critical Care Time: Yes Total Critical Care Time: 45 Attestation: I have personally provided critical care time exclusive of time spent on separately billable procedures. Time includes review of lab data, radiology results, discussion with consultants, and monitoring for potential decompensation. Intervention performed as documented. Discharge Plan Discharge Clinical Impression: Metastatic cancer Patient Disposition: Still a Patient
[2023-11-11 12:29] LABS: SLIDE REVIEW VERIFIED
--- NOTE | 2023-11-11 12:35 | PC.NURSE ---
pt to MRI
[2023-11-11] MEDS: gadobutroL 7.5 ML VIAL IVPUSH (12:52)
[2023-11-11 14:00] VITALS: BP 93/55; PULSE 66; RESP 16; TEMP 36.8; O2SAT 98
[2023-11-11] MEDS: 0.9 % Sodium Chloride 1,000 ML 999 ML IV (15:23)
--- NOTE | 2023-11-11 15:24 | PC.NURSE ---
pt ivf started per order
[2023-11-11 16:00] VITALS: BP 90/53; PULSE 73; RESP 16; TEMP 36.6; O2SAT 99
[2023-11-11 17:55] VITALS: BP 99/57; PULSE 66; RESP 15; TEMP 36.9; O2SAT 95
[2023-11-11 18:00] VITALS: BP 92/53
--- NOTE | 2023-11-11 18:02 | PM.IMHP ---
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 ASL interpretor Dorie [phone] assisted with sign language interpretation. The patient reports that she has not moved her bowels in the last 5 days. She was reporting mild diffuse abdominal discomfort rated as a 2-3/10 without any radiation. There is no fevers, chills, nausea, vomiting. She does report a small amount of bright red blood from her rectum. She has no other complaints at this time. She was seen in the Oncology office earlier today recommending she present to the ED for further evaluation of probable bowel obstruction secondary to anorectal cancer likely needing diverting colostomy and recommending MRI of the pelvis with surgical consultation. In the ED, blood pressure soft but no hypotension, otherwise stable. She has a leukocytosis of 14.6. Renal function electrolyte levels are normal. Hepatic function is within normal limits. MRI of the pelvis showed findings most consistent with malignancy centered in the anal canal/lower rectum, possibly anal in origin, though origin evaluation is limited due to size of the lesion. There is also invasion of several structures in the pelvis including anal sphincters, pelvic floor musculature, ischioanal fossa, presacral space, vagina and possibly right cervix with suspicious lymph nodes noted at multiple calista stations including inguinal, iliac, mesorectal and CHAYO territories. CT abd pelvis pending. In the Ed, given 1 L IVF. Review of Systems Review of Systems: Yes all other systems are reviewed and are negative [facility] Medical History Schizophrenia Asthma History of gallbladder disease Chronic pain of left knee Low vitamin D level Dyslipidemia Mental health disorder Hx of Lyme disease Congenital deafness Family History Mother Hypertension Surgical History Hx of tubal ligation Hx of appendectomy History of cholecystectomy Hx of foot surgery Social History Household Members: None Housing: Apartment Do you presently have visiting nurse or other home services: Yes (followed by [facility] per records) Alcohol intake: former Patient Tobacco Use Status: Former Tobacco user Tobacco use type: Cigarette Cigarette Packs Per Day: 1 Smoked in Last 30 Days: Yes Use of substances other than those prescribed or required for medical reasons: No Substance Use Type: Marijuana Advance Directives: No Advance Directives Information Provided: Yes Patient : No service: No Current occupational status: disabled Meds Allergies Allergy/AdvReac Type Severity Reaction Status Date / Time No Known Allergies Allergy Verified 11/11/23 11:17 [No Known Allergies*] Active Medications: Current Medications Acetaminophen (Acetaminophen 325 Mg Tablet) 650 mg PO Q6H PRN PRN Reason: Pain, Mild (Pain Scale 1-3), fever or headache Calcium Carbonate (Calcium Carbonate 750 Mg Tab.Chew) 750 mg PO Q4H PRN PRN Reason: Heartburn Lactated Ringer's (Lr) 1,000 mls @ 100 mls/hr IVCONT .Q10H GUANAKO Magnesium Hydroxide (Milk Of Magnesia 30 Ml Oral.Susp) 30 ml PO DAILY PRN PRN Reason: Constipation Melatonin (Melatonin 3 Mg Tablet) 6 mg PO BEDTIME PRN PRN Reason: Insomnia Nicotine (Nicotine 21 Mg Patch.Td24) 21 mg TRANSDERMA DAILY GUANAKO Sodium Chloride (0.9 % Sodium Chloride Flush 3 Ml Syringe) 3 ml IVFLUSH QSHIFT GUANAKO Home Medications ?Medication ?Instructions ?Recorded ?Confirmed ?Last Taken ?Type albuterol sulfate 90 mcg/actuation 2 puff PO Q6H PRN Wheezing 02/25/20 11/11/23 Unknown History aerosol inhaler risperidone 4 mg tablet 4 mg PO BEDTIME 02/25/20 11/11/23 Unknown History lorazepam 0.5 mg tablet 0.5 mg PO BID 07/17/23 11/11/23 Unknown History acetaminophen 500 mg tablet 500 - 1,000 mg PO Q8-12H PRN Pain 10/28/23 11/11/23 Unknown History fluticasone 500 mcg-salmeterol 50 1 inh inhalation BID 10/28/23 11/11/23 Unknown History mcg/dose blistr powdr for inhalation (Advair Diskus) nicotine 21 mg/24 hr daily 1 patch transdermal DAILY 10/28/23 11/11/23 Unknown History transdermal patch risperidone 1 mg tablet 1 mg PO BID 10/28/23 11/11/23 Unknown History Physical Exam Vital Signs and Narrative: Vital Signs: Last Vital Signs Temp 97.9 F 11/11/23 16:00 Pulse 73 11/11/23 16:00 Resp 16 11/11/23 16:00 BP 92/53 L 11/11/23 18:00 Pulse Ox 99 11/11/23 16:00 O2 Del Method Room Air 11/11/23 16:00 BMI result Body Mass Index 24.7 Constitutional - Awake and Alert, No apparent distress Eyes - PERRLA, EOMI Cardiovascular - S1S2, RRR, No edema Respiratory - Normal lung expansion, Normal respiratory effort, No respiratory distress, CTA bilaterally Gastrointestinal - NT / ND; +BS; No rebound or guarding Extremities - no calf tenderness bilaterally, no swelling Skin - Warm/Dry Neurological - Alert & oriented x3 Results Labs 11/11/23 11:44 11/11/23 11:44 Labs: Laboratory Results - last 24 hr 11/11/23 11:44 MCV 78.2 L MCH 24.4 L MCHC 31.2 RDW 18.8 H Plt Count 385 MPV 9.3 L Immature Gran % (Auto) 0.3 Neut % (Auto) 49.8 Lymph % (Auto) 41.7 H [place] % (Auto) 6.4 Eos % (Auto) 1.5 Baso % (Auto) 0.3 Lymph # (Auto) 6.1 H [place] # (Auto) 0.9 Eos # (Auto) 0.2 Baso # (Auto) 0.1 Abs Immat Gran (auto) 0.05 H Absolute Neuts (auto) 7.3 Absolute Nucleated RBC 0.000 Nucleated RBC % (auto) 0.0 Smear Tech's Comments VERIFIED Anion Gap 14 Estim Creat Clear Calc 72.4 Estimated GFR > 60 Random Glucose 113 Calcium 10.2 Magnesium 2.3 Total Bilirubin 0.3 Direct Bilirubin 0.1 AST 17 ALT 23 Alkaline Phosphatase 115 Total Protein 7.6 Albumin 4.2 Lipase 9 Imaging Radiologist's Impressions: Impressions Pelvis MRI 11/11/23 11:29 IMPRESSION: Findings are most consistent with malignancy centered in the anal canal/lower rectum, possibly anal in origin, although evaluation of the origin is limited due to the large size of the lesion. There is invasion of several structures in the pelvis including anal sphincters, pelvic floor musculature, ischioanal fossa, presacral space, vagina and possibly right cervix. Pathologic suspicious lymph nodes are noted at multiple calista stations including inguinal, iliac, mesorectal and CHAYO territories. Recommend colorectal oncology consultation. 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 ASL interpretor Dorie [phone] assisted with sign language interpretation. She will be admitted for further management of obstipation due to bowel obstruction secondary to anal malignancy. #Obstipation due to bowel obstruction secondary metastatic anal malignancy -MRI of the pelvis showed findings most consistent with malignancy centered in the anal canal/lower rectum, possibly anal in origin, though origin evaluation is limited due to size of the lesion. There is also invasion of several structures in the pelvis including anal sphincters, pelvic floor musculature, ischioanal fossa, presacral space, vagina and possibly right cervix with suspicious lymph nodes noted at multiple calista stations including inguinal, iliac, mesorectal and CHAYO territories. -Clear liquids for now. NPO after midnight. Continue LR -General surgery consult, will need diverting colostomy -Oncology consult -pain management prn #Chronic leukocytosis -due to malignancy, not infectious #Hypotension/soft BPs -r/t malignancy, no sepsis -can consider midodrine if continues #Chronic microcytic anemia -no overt bleeding, above transfusion threshold -follow # schizophrenia/mood disorder -continue home medications # mild persistent asthma -no exacerbation -continue Flovent, albuterol p.r.n. DVT prophylaxis-give one dose heparin now, resume post operatively Full code Patient requires inpatient stay at least 2 midnights for management of obstipation due to bowel obstruction r/t anal malignancy requiring expert consultation and diverting colonocopy Quality Stroke Does the patient have a stroke diagnosis?: No VTE Prior VTE?: No VTE Risk Level:: Medical - moderate - high VTE Device Contraindication: Treatment Not Indicated VTE Drug Contraindication: N/A - Med Ordered
--- NOTE | 2023-11-11 19:00 | PHA.MEDREC ---
Addendum entered by Darius Mcclain 11/11/23 20:40: reviewed Original Note: Pharmacy Consult ? Medication Reconciliation Pharmacy has completed the medication reconciliation. Spoke to patient thought frame tender service (ASL) to confirm med list. Patient states she was just discharged from [facility] on 11/08/23 and there was no changes to her medication since. Utilized discharge packet to confirm med list.
[2023-11-11] MEDS: Lactated Ringers 1,000 ML 100 ML IVCONT (19:44)
[2023-11-11] MEDS: HYDROmorphone HCl 0.5 MG/0.5 ML SYRINGE IVPUSH ×2 (19:51→21:43)
[2023-11-11 20:47] VITALS: BP 98/53; PULSE 71; RESP 17; TEMP 36.5; O2SAT 95
[2023-11-11] MEDS: LORazepam 0.5 MG TABLET PO (22:57)
[2023-11-11] MEDS: Melatonin 3 MG TABLET 6 MG PO (22:57)
--- NOTE | 2023-11-12 01:12 | P.EN_ITS ---
Event Note Date of Service: 11/12/23 Event Note: 1. 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 CT scan of the abdomen pelvis and chest on 10/22 revealed: Infiltrative soft tissue mass in the low pelvis/presacral region measuring 6.6 x 5.4 x 10.1 cm with invasion of the rectosigmoid colon as well as the cervix and vagina. There is extension into the perineum. Small free fluid and inflammatory changes in the presacral space. This most likely represents neoplasm. PET/CT is recommended. There is possible metastatic disease with a small nodule in the left hemipelvis measuring 1.2 x 1.2 cm, an enlarged right inguinal lymph node measuring 1.9 x 1.4 cm and an enlarged right paratracheal lymph node measuring 2.4 x 2.3 cm. 3 mm left upper lobe pulmonary nodule is nonspecific. Hypervascular left hepatic lesion measuring 2.3 x 2.7 cm may be further characterized with MRI. Splenomegaly. Core right inguinal lymph node biopsy performed 10/29/23 showed metastatic poorly differentiated squamous cell carcinoma, IHC showed positivity for CK7, P16, P 40 and P 63. Weak focal GATA3 immuno reactivity, negative for CK20. Patient underwent sigmoidoscopy on 11/06/2023, large masslike lesion visualized in the anal canal. Lumen could not be visualized and therefore scope could not be advanced any further. Biopsy of this revealed invasive squamous cell carcinoma, moderate to poorly differentiated. The pt saw oncology today and was noted no bowel movement in a week in spite of aggressive laxative regimen. ? She has bowel obstruction secondary to anorectal cancer and needs diverting colostomy. Scheduled for outpt PETscan. Repeat CT scan showing -- 1. No evidence of bowel obstruction. 2. Large infiltrative mass in the perirectal area has increased in size since 10/23/2023. 3. Pelvic lymphadenopathy has increased in size. Biopsy results from a right inguinal lymph node are pending. 4. Incidental note made of hepatosplenomegaly and cholecystectomy. In trying to discuss situation with pt and get history and do physical - dificulty with engaging pt through public health teacher and interpreting system. Discussed case with pt's sister - it seems they may not fully understand the seriousness of this prognosis and may benefit from sister being present for communicating surgical procedure risks and benefits. Ct may not show urgernt need for decompression colostomy but at some point she will most likely need one while oncology team comes up with at least a palliative plan for her care. Will discuss with Dr. Pelayo but make npo Time Spent With Patient Time: Total time managing care of this patient today ____ minutes.
[2023-11-12] MEDS: HYDROmorphone HCl 0.5 MG/0.5 ML SYRINGE IVPUSH ×6 (01:32→23:43)
[2023-11-12 02:40] VITALS: BP 116/56; PULSE 73; RESP 17; TEMP 36.5; O2SAT 95
--- NOTE | 2023-11-12 02:55 | PC.NURSE ---
Pt has attempted to void a handful of times and is unable to go. Bladder scan showed 730ml of urine. MD notified to obtain [facility] cath order.
[2023-11-12] MEDS: Lactated Ringers 1,000 ML 100 ML IVCONT ×2 (03:40→20:36)
--- NOTE | 2023-11-12 03:42 | PC.NURSE ---
Pt in a very intense amount of pain. Administered pain medication early d/t fact that she had to be cathetarized and was rolled back in forth in her bed.
[2023-11-12 07:17] LABS: Basophils Percent Auto 0.2 % (0-2); Eosinophils Absolute Auto 0.2 X10*3/uL (0.0-0.4); Eosinophils Percent Auto 1.5 % (0-4); Hematocrit 31.2 % (37.0-47.0); Hemoglobin 9.6 g/dl (12.0-16.0); Imm Gran Abs Auto 0.03 X10*3/uL (0.00-0.03); Imm Gran Pct Auto 0.2 % (0.0-0.4); Lymphocytes Absolute Auto 5.5 X10*3/uL (1.2-4.9); Lymphocytes Percent Auto 42.1 % (20-40); MANUAL DIFF FLAG SCAN; Mean Corpuscular HGB Conc 30.8 g/dl (31.0-35.0); Mean Corpuscular Hemoglobin 23.8 pg (27.0-33.0); Mean Corpuscular Volume 77.4 fL (80.0-98.0); Mean Platelet Volume 11.4 fL (9.4-12.3); Monocytes Absolute Auto 0.8 X10*3/uL (0.1-1.2); Monocytes Percent Auto 5.7 % (2-11); Neutrophils Absolute Auto 6.6 x10*3/uL (2.0-8.3); Neutrophils Percent Auto 50.3 % (45-73); Platelet Count 298 X10*3/uL (160-400); Red Blood Count 4.03 X10*6/uL (4.20-5.50); Red Cell Distribution Width 18.8 % (11.0-16.0); SCAN SMEAR FLAG 1; White Blood Count 13.1 X10*3/uL (4.8-10.8)
[2023-11-12 07:26] VITALS: BP 109/53; PULSE 76; RESP 16; TEMP 36.4; O2SAT 94
[2023-11-12 07:31] LABS: Anion Gap 14 (12-20); Blood Urea Nitrogen 6 mg/dL (9-16); Calcium 9.9 mg/dL (8.4-10.2); Carbon Dioxide 26 mmol/L (22-29); Chloride 104 mmol/L (96-108); Estimated Glomerular Filt Rate > 60; Glucose Random 89 mg/dL (60-115); Potassium 4.1 mmol/L (3.3-5.1); Sodium 140 mmol/L (135-145)
[2023-11-12] MEDS: oxyCODONE HCl Immed Release 5 MG TABLET 10 MG PO ×3 (08:12→17:29)
[2023-11-12] MEDS: oxyCODONE HCl ER 10 MG TAB.ER.12H 20 MG PO ×2 (08:12→20:37)
[2023-11-12] MEDS: Docusate Sodium 100 MG CAPSULE PO (08:13)
[2023-11-12] MEDS: LORazepam 0.5 MG TABLET PO ×2 (08:13→20:37)
[2023-11-12] MEDS: Ferrous Sulfate 324 MG TABLET.DR PO ×2 (08:13→20:37)
[2023-11-12] MEDS: Nicotine 21 MG PATCH.TD24 TRANSDERMA (08:13)
[2023-11-12] MEDS: Folic Acid 1 MG TABLET PO (08:13)
[2023-11-12] MEDS: risperiDONE 1 MG TABLET PO ×2 (08:13→20:36)
--- NOTE | 2023-11-12 08:27 | P.PNGS_ITS ---
Subjective Subjective Date of Service: 11/14/23 Interval history: History of reviewed Recent diagnosis of squamous cell anal carcinoma, bulky and locally advanced Has been constipated Some abdominal pain Communicates via sign language Says she has a history of cholecystectomy and appendectomy Physical Exam 2 Vital Signs: Vital Signs: Last Vital Signs Temp 97.6 F 11/12/23 07:26 Pulse 76 11/12/23 07:26 Resp 16 11/12/23 07:26 BP 109/53 L 11/12/23 07:26 Pulse Ox 94 11/12/23 07:26 O2 Del Method Room Air 11/12/23 07:26 BMI result Body Mass Index 24.7 Const: General: comfortable and no acute distress Resp: Effort & Inspection: normal respiratory effort Cardio: Rate: regular rate GI: Other: Mild diffuse tenderness Palpation (GI): Soft to palpation, not firm and no guarding Objective Data Active Medications Acetaminophen (Acetaminophen 325 Mg Tablet) 650 mg PO Q6H PRN PRN Reason: Pain, Mild (Pain Scale 1-3), fever or headache Albuterol/Ipratropium (Albuterol/Iprat 2.5/0.5mg 3 Ml Ampul.Neb) 3 ml INHALE Q4H PRN PRN Reason: Shortness of Breath/Wheezing Calcium Carbonate (Calcium Carbonate 750 Mg Tab.Chew) 750 mg PO Q4H PRN PRN Reason: Heartburn Docusate Sodium (Docusate Sodium 100 Mg Capsule) 100 mg PO BID [facility] Last Admin: 11/12/23 08:13 Dose: 100 mg Documented By: ARTHUR Ferrous Sulfate (Ferrous Sulfate 324 Mg Tablet.Dr) 324 mg PO BID [facility] Last Admin: 11/12/23 08:13 Dose: 324 mg Documented By: ARTHUR Fluticasone/Vilanterol (Fluticasone/Vilanterol 100/25 Blst.W.Dev) 1 puff INHALE RDAILY [facility] Last Admin: 11/12/23 07:54 Dose: Not Given Documented By: KAREN Non-Admin Reason: Med Not Available Folic Acid (Folic Acid 1 Mg Tablet) 1 mg PO DAILY [facility] Last Admin: 11/12/23 08:13 Dose: 1 mg Documented By: ARTHUR Hydrocortisone (Hydrocortisone 2.5 % Rectal Cr 30 Gm Tube) 1 appl AR DAILY [facility] Hydromorphone HCl (Hydromorphone Hcl 0.5 Mg/0.5 Ml Syringe) 0.5 mg IVPUSH Q3H PRN; Protocol PRN Reason: Pain, Severe (Pain Scale 7-10) Last Admin: 11/12/23 03:39 Dose: 0.5 mg Documented By: CATY Lactated Ringer's (Lr) 1,000 mls @ 100 mls/hr IVCONT .Q10H [facility] Last Admin: 11/12/23 03:40 Dose: 100 mls/hr Documented By: CATY Lorazepam (Lorazepam 0.5 Mg Tablet) 0.5 mg PO BID [facility] Last Admin: 11/12/23 08:13 Dose: 0.5 mg Documented By: ARTHUR Magnesium Hydroxide (Milk Of Magnesia 30 Ml Oral.Susp) 30 ml PO DAILY PRN PRN Reason: Constipation Melatonin (Melatonin 3 Mg Tablet) 6 mg PO BEDTIME PRN PRN Reason: Insomnia Last Admin: 11/11/23 22:57 Dose: 6 mg Documented By: CATY Nicotine (Nicotine 21 Mg Patch.Td24) 21 mg TRANSDERMA DAILY [facility] Last Admin: 11/12/23 08:13 Dose: 21 mg Documented By: ARTHUR Nicotine (Nicotine 21 Mg Patch.Td24) 21 mg TRANSDERMA DAILY [facility] Last Admin: 11/12/23 08:13 Dose: Not Given Documented By: ARTHUR Non-Admin Reason: Duplicate Order Oxycodone HCl (Oxycodone Hcl Immed Release 5 Mg Tablet) 10 mg PO Q4H PRN PRN Reason: pain (scale score 7-10) Last Admin: 11/12/23 08:12 Dose: 10 mg Documented By: ARTHUR Oxycodone HCl (Oxycodone Hcl Er 10 Mg Tab.Er.12h) 20 mg PO BID [facility] Last Admin: 11/12/23 08:12 Dose: 20 mg Documented By: ARTHUR Risperidone (Risperidone 2 Mg Tablet) 4 mg PO BEDTIME [facility] Last Admin: 11/12/23 00:19 Dose: Not Given Documented By: CATY Non-Admin Reason: Patient Asleep Risperidone (Risperidone 1 Mg Tablet) 1 mg PO BID [facility] Last Admin: 11/12/23 08:13 Dose: 1 mg Documented By: ARTHUR Sodium Chloride (0.9 % Sodium Chloride Flush 3 Ml Syringe) 3 ml IVFLUSH QSHIFT [facility] Last Admin: 11/12/23 08:14 Dose: Not Given Documented By: ARTHUR Non-Admin Reason: Previously Administered Labs 11/14/23 07:45 11/14/23 07:45 Labs: Laboratory Results - last 24 hr 11/11/23 11/12/23 11:44 05:08 MCV 78.2 L 77.4 L MCH 24.4 L 23.8 L MCHC 31.2 30.8 L RDW 18.8 H 18.8 H Plt Count 385 298 MPV 9.3 L 11.4 Immature Gran % (Auto) 0.3 Neut % (Auto) 49.8 Lymph % (Auto) 41.7 H [place] % (Auto) 6.4 Eos % (Auto) 1.5 Baso % (Auto) 0.3 Lymph # (Auto) 6.1 H [place] # (Auto) 0.9 Eos # (Auto) 0.2 Baso # (Auto) 0.1 Abs Immat Gran (auto) 0.05 H Absolute Neuts (auto) 7.3 Absolute Nucleated RBC 0.000 Nucleated RBC % (auto) 0.0 Smear Tech's Comments VERIFIED Anion Gap 14 14 Estim Creat Clear Calc 72.4 84.0 Estimated GFR > 60 > 60 Random Glucose 113 89 Calcium 10.2 9.9 Magnesium 2.3 Total Bilirubin 0.3 Direct Bilirubin 0.1 AST 17 ALT 23 Alkaline Phosphatase 115 Total Protein 7.6 Albumin 4.2 Lipase 9 Procedures Date of Service Date of Service: 11/14/23 Progress Note: A&P Assessment and plan (1) Squamous cell carcinoma of anal canal: Status: Acute Assessment and Plan: She has a new diagnosis of squamous cell carcinoma extending to the anal canal all the way to the rectosigmoid Her imaging studies show infiltrative soft tissue mass in the low pelvis/presacral region measuring 6.6 x 5.4 x 10.1 cm with invasion of the rectosigmoid colon as well as the cervix and vagina. There is extension into the perineum This is consistent with locally advanced squamous cell carcinoma There is excision of metastatic disease as well into the region lymph nodes She has heavy stool volume in the entire colon although there is no significant dilatation of the cecum She has had no bowel movement a week now I had a long discussion with her about the benefits of proceeding with a diverting colostomy I explained the technique of hand assisted laparoscopic sigmoid ostomy possibly via a loop I reviewed the risks including but not limited to bleeding, infections, injury to other organs including breast of bowel, urinary tract I explained to her what to expect postoperatively She has given consent We will schedule her for this procedure tomorrow I have discussed the above with her sister Shaina at [phone] Time Spent With Patient Time: Total time managing care of this patient today ____ minutes. Quality Stroke Does the patient have a stroke diagnosis?: No VTE Prior VTE?: No VTE Risk Level:: Medical - moderate - high VTE Device Contraindication: Treatment Not Indicated VTE Drug Contraindication: N/A - Med Ordered
--- NOTE | 2023-11-12 09:04 | P.CNHO_ITS ---
Subjective - Subjective Chief complaint: Abdominal and perineal discomfort Patient: known to practice within the last 3 years Consult date: 11/12/23 Primary Care Provider: Sneha Li MD Medical Summary: Diagnosis-advanced squamous cell carcinoma of anus CT scan of the abdomen pelvis and chest on 10/22 revealed: Infiltrative soft tissue mass in the low pelvis/presacral region measuring 6.6 x 5.4 x 10.1 cm with invasion of the rectosigmoid colon as well as the cervix and vagina. There is extension into the perineum. Small free fluid and inflammatory changes in the presacral space. This most likely represents neoplasm. PET/CT is recommended. There is possible metastatic disease with a small nodule in the left hemipelvis measuring 1.2 x 1.2 cm, an enlarged right inguinal lymph node measuring 1.9 x 1.4 cm and an enlarged right paratracheal lymph node measuring 2.4 x 2.3 cm. 3 mm left upper lobe pulmonary nodule is nonspecific. HPI - Consult Narrative Reason for consult: Recently diagnosed anal cancer Narrative: Yanna Power is a 52 year old female his recent diagnosis of locally advanced anal cancer who is currently admitted for impending bowel obstruction. Imaging showed extensive tumor involving anal canal extending above the rectum as well as involving the posterior vaginal wall. She has not had a bowel movement in almost a week. She reports pain in the perianal/perineal region as well as lower abdomen. No nausea or emesis. No fever or chills. She is awaiting diverting colostomy which has been scheduled for tomorrow. She is now resting comfortably in bed. Review of Systems - Constitutional Reports as per [facility] Medical History: Medical History (Last Reviewed 11/12/23 @ 13:52 by Nona Mcintosh MD) Asthma Chronic pain of left knee Congenital deafness Dyslipidemia History of gallbladder disease Hx of Lyme disease Low vitamin D level Mental health disorder Schizophrenia Squamous cell carcinoma of anal canal Family History: Family History (Last Reviewed 11/12/23 @ 13:52 by Nona Mcintosh MD) Mother Hypertension Surgical History: Surgical History (Last Reviewed 11/12/23 @ 13:52 by Nona Mcintosh MD) History of cholecystectomy Hx of appendectomy Hx of foot surgery Hx of tubal ligation Social History: Social History (Last Reviewed 11/12/23 @ 13:52 by Nona Mcintosh MD) Living Situation History: Household Members: None Housing: Apartment Do you presently have visiting nurse or other home services: Yes Do you presently have visiting nurse or other home services comment: home health aide, medication held Alcohol History Details: 1. How often do you have a drink containing alcohol?: a. Never 3. How often do you have six or more drinks on one occasion?: a. Never AUDIT-C Alcohol total score: 0 Currently Displaying Signs/Symptoms of Alcohol Withdrawal: No Tobacco History: Patient Tobacco Use Status: Former Tobacco user Tobacco use type: Cigarette Cigarette Packs Per Day: 1 Smoked in Last 30 Days: Yes Patient Interested in Nicotine Replacement: Yes Substance Use History: Use of substances other than those prescribed or required for medical reasons : No Substance Use Type: Marijuana Currently Displaying Signs/Symptoms of Drug Intoxication Withdrawal: No Domestic Abuse History: Have you been hit, kicked, punched, or otherwise hurt by someone within the past year? If so, by whom?: No Do you feel safe in your current relationship?: No Current Relationship Is there a partner from a previous relationship who is making you feel unsafe now?: No Are you made to feel afraid or neglected: No Healthcare Practices: [employer] Healthcare Practices: uatsdin Advance Directives: Advance Directives: No Advance Directives Information Provided: Yes Advance Directives on File: No Homicidal Assessment: Do you have a plan to hurt others: No Plan Nutrition Assessment: Recently lost weight without trying: Yes How much weight loss: 24-33 pounds Eating poorly because of decreased appetite: Yes Nutrition screen score: 6 Nutrition Risks: Acute nausea or vomiting Patient : No : No Poor oral hygiene: No Occupation Assessmet: service: No Current occupational status: disabled Home Medications and Allergies Current Medications: Current Medications Acetaminophen (Acetaminophen 325 Mg Tablet) 650 mg PO Q6H PRN PRN Reason: Pain, Mild (Pain Scale 1-3), fever or headache Albuterol/Ipratropium (Albuterol/Iprat 2.5/0.5mg 3 Ml Ampul.Neb) 3 ml INHALE Q4H PRN PRN Reason: Shortness of Breath/Wheezing Calcium Carbonate (Calcium Carbonate 750 Mg Tab.Chew) 750 mg PO Q4H PRN PRN Reason: Heartburn Docusate Sodium (Docusate Sodium 100 Mg Capsule) 100 mg PO BID [facility] Last Admin: 11/12/23 08:13 Dose: 100 mg Ferrous Sulfate (Ferrous Sulfate 324 Mg Tablet.Dr) 324 mg PO BID [facility] Last Admin: 11/12/23 08:13 Dose: 324 mg Fluticasone/Vilanterol (Fluticasone/Vilanterol 100/25 Blst.W.Dev) 1 puff INHALE RDAILY [facility] Last Admin: 11/12/23 07:54 Dose: Not Given Folic Acid (Folic Acid 1 Mg Tablet) 1 mg PO DAILY [facility] Last Admin: 11/12/23 08:13 Dose: 1 mg Hydrocortisone (Hydrocortisone 2.5 % Rectal Cr 30 Gm Tube) 1 appl HI DAILY [facility] Hydromorphone HCl (Hydromorphone Hcl 0.5 Mg/0.5 Ml Syringe) 0.5 mg IVPUSH Q3H PRN; Protocol PRN Reason: Pain, Severe (Pain Scale 7-10) Last Admin: 11/12/23 03:39 Dose: 0.5 mg Lactated Ringer's (Lr) 1,000 mls @ 100 mls/hr IVCONT .Q10H [facility] Last Admin: 11/12/23 03:40 Dose: 100 mls/hr Lorazepam (Lorazepam 0.5 Mg Tablet) 0.5 mg PO BID [facility] Last Admin: 11/12/23 08:13 Dose: 0.5 mg Magnesium Hydroxide (Milk Of Magnesia 30 Ml Oral.Susp) 30 ml PO DAILY PRN PRN Reason: Constipation Melatonin (Melatonin 3 Mg Tablet) 6 mg PO BEDTIME PRN PRN Reason: Insomnia Last Admin: 11/11/23 22:57 Dose: 6 mg Nicotine (Nicotine 21 Mg Patch.Td24) 21 mg TRANSDERMA DAILY [facility] Last Admin: 11/12/23 08:13 Dose: 21 mg Nicotine (Nicotine 21 Mg Patch.Td24) 21 mg TRANSDERMA DAILY [facility] Last Admin: 11/12/23 08:13 Dose: Not Given Oxycodone HCl (Oxycodone Hcl Immed Release 5 Mg Tablet) 10 mg PO Q4H PRN PRN Reason: pain (scale score 7-10) Last Admin: 11/12/23 08:12 Dose: 10 mg Oxycodone HCl (Oxycodone Hcl Er 10 Mg Tab.Er.12h) 20 mg PO BID [facility] Last Admin: 11/12/23 08:12 Dose: 20 mg Risperidone (Risperidone 2 Mg Tablet) 4 mg PO BEDTIME [facility] Last Admin: 11/12/23 00:19 Dose: Not Given Risperidone (Risperidone 1 Mg Tablet) 1 mg PO BID [facility] Last Admin: 11/12/23 08:13 Dose: 1 mg Sodium Chloride (0.9 % Sodium Chloride Flush 3 Ml Syringe) 3 ml IVFLUSH QSHIFT [facility] Last Admin: 11/12/23 08:14 Dose: Not Given Home Medications ?Medication ?Instructions ?Recorded ?Confirmed ?Type albuterol sulfate 90 mcg/actuation 2 puff PO Q6H PRN Wheezing 02/25/20 11/11/23 History aerosol inhaler risperidone 4 mg tablet 4 mg PO BEDTIME 02/25/20 11/11/23 History lorazepam 0.5 mg tablet 0.5 mg PO BID 07/17/23 11/11/23 History acetaminophen 500 mg tablet 500 - 1,000 mg PO Q8-12H PRN Pain 10/28/23 11/11/23 History fluticasone 500 mcg-salmeterol 50 1 inh inhalation BID 10/28/23 11/11/23 History mcg/dose blistr powdr for inhalation (Advair Diskus) nicotine 21 mg/24 hr daily 1 patch transdermal DAILY 10/28/23 11/11/23 History transdermal patch risperidone 1 mg tablet 1 mg PO BID 10/28/23 11/11/23 History Allergies Allergy/AdvReac Type Severity Reaction Status Date / Time No Known Allergies Allergy Verified 11/11/23 11:17 [No Known Allergies*] Physical Exam Vital signs: Vital Signs Temp 97.6 F 11/12/23 07:26 Pulse 76 11/12/23 07:26 Resp 16 11/12/23 07:26 BP 109/53 L 11/12/23 07:26 Pulse Ox 94 11/12/23 07:26 O2 Del Method Room Air 11/12/23 07:26 Intake & Output 11/11/23 11/12/23 11/12/23 18:59 06:59 18:59 Intake Total 1000 / 3.333 913.333 / 1913.333 Balance 1000 / 3.333 913.333 / 3.333 Intake: Intake, Oral Amount 120 / 120 Intake, IV Amount 1000 / 1793.333 793.333 / 1793.333 0.9 % Sodium Chloride 1,000 ml 1000 / 1000 @ 999 mls/hr IV .Q1H1M ONE Rx#: [id number] Lactated Ringers 1,000 ml @ 100 793.333 / 793.333 mls/hr IVCONT .Q10H [facility] Rx#: [id number] Other: NPO Yes Number of Bowel Movements 5 Urine Bedside Commode Urine Color Straw Last Bowel Movement 11/11/23 Stool Bedside Commode Stool Amount Small Weight 61.235 kg Weight 61.235 kg - Constitutional Present: no acute distress - Routine HEENT Exam Head: Present: normal inspection Eye: Present: EOMI - Routine Respiratory Exam Present: CTAB. Absent: accessory muscle use - Routine Cardiovascular Exam Cardiovascular: Present: S1, S2 - Routine Abdominal Exam Present: distended - Routine Skin Exam Present: intact - Routine Neurological Exam Present: alert Hem/Onc Consult Result - Labs CBC & Chem 7: 11/12/23 05:08 11/12/23 05:08 Labs: Short CBC 11/11/23 11/12/23 Range/Units 11:44 05:08 WBC 14.6 H 13.1 H (4.8-10.8) X10*3/uL Hgb 10.4 L 9.6 L (12.0-16.0) g/dl Hct 33.3 L 31.2 L (37.0-47.0) % Plt Count 385 298 (160-400) X10*3/uL BMP 11/11/23 11/12/23 11:44 05:08 Sodium 138 140 Potassium 4.5 4.1 Chloride 102 104 Carbon Dioxide 27 26 BUN 8 L 6 L Creatinine 0.80 0.69 Calcium 10.2 9.9 Liver Function 11/11/23 Range/Units 11:44 Total Bilirubin 0.3 (0.0-1.0) mg/dL Direct Bilirubin 0.1 (0.0-0.5) mg/dL AST 17 (5-31) U/L ALT 23 (0-31) U/L Alkaline Phosphatase 115 (39-117) U/L Albumin 4.2 (3.5-5.0) g/dL Assessment and Plan Patient Active problem list reviewed?: Yes (1) Squamous cell carcinoma of anal canal Status: Acute Assessment and plan: 1. 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 She had core biopsy right inguinal lymph node 10/29/23 which showed metastatic poorly differentiated squamous cell carcinoma, IHC showed positivity for CK7, P16, P 40 and P 63. Weak focal GATA3 immuno reactivity, negative for CK20. Patient underwent sigmoidoscopy on 11/06/2023, large masslike lesion visualized in the anal canal. Lumen could not be visualized and therefore scope could not be advanced any further. Biopsy of this revealed invasive squamous cell carcinoma, moderate to poorly differentiated. MRI pelvis with contrast performed 11/11/2023 showed a right-sided large ulcerative mass in the canal and lower rectum measuring 7.4 x 6.7 x 810.5 cm. There was invasion of internal and external anal sphincters, invasion of levator ani muscles and extension into right ischial anal fossa. Posteriorly the mass extends to the presacral space and anteriorly there was invasion of the entire posterior vaginal wall up to the level of the vaginal cuff, questionable early invasion of the right cervix. Soft tissue swelling and edema around the main mass in the pelvis, perineum and right gluteal region. Abnormal partially necrotic lymph nodes noted in the right inguinal region, right external iliac region additional suspicious lymph nodes seen around the iliac, mesorectal and [place]AY[place] territories. CT abdomen/pelvis without contrast shows no evidence of bowel obstruction. Pelvic lymphadenopathy has increased in size compared to prior imaging. Hepatosplenomegaly noted incidentally. Clinical stage cT4 N1, stage IIIC. PET scan has been scheduled for next week. She is scheduled to undergo HALS diverting colostomy tomorrow. Recommendations about systemic therapy will be made after she undergoes PET scan. Appreciate hospitalist and surgical input. Thank you the referral. - Time Spent With Patient Time Spent with Patient (in minutes): 15 Additional Coding: - Additional E/M codes Complex E/M visit Add On: CPT G2211
--- NOTE | 2023-11-12 09:23 | PC.NURSE ---
patient unable to void, bladder scanned for 468, rocha ordered and inserted and urology consult pending
[2023-11-12 09:30] LABS: SLIDE REVIEW VERIFIED
[2023-11-12] MEDS: Hydrocortisone 2.5 % Rectal Cr 30 GM TUBE 1 APPL PR (10:30)
[2023-11-12 13:30] VITALS: BMI 24.7
--- NOTE | 2023-11-12 13:39 | P.CNUR_ITS ---
History of Present Illness Consult details Consult date: 11/12/23 Narrative: Yanna is a 52 year old female with with mental health disoder, schizophrenia, hearing impaired, diagnosed with anal cancer. Urology called for urinary retention. per nursing bladder scan for > 500 mL, rocha placed for 700 mL output. Review of Systems 2 Review of Systems: Yes all other systems are reviewed and are negative Constitutional: Constitutional: Reports no additional constitutional complaints Eyes: Eyes: Reports no additional eye complaints ENT: Reports system reviewed and no additional complaints, except as documented Cardiovascular: Cardiovascular: Reports no additional cardiovascular complaints Respiratory: Respiratory: Reports no additional respiratory complaints Gastrointestinal: Gastrointestinal: Reports no additional gastrointestinal complaints Genitourinary: Genitourinary: Reports as per HPI Musculoskeletal: Musculoskeletal: Reports no additional musculoskeletal complaints Integumentary/Breasts: Skin/Breast: Reports system reviewed and no additional complaints, except as docu Neurologic: Reports system reviewed and no additional complaints, except as documented Psychiatric: Psychiatric: Reports no additional psychiatric complaints Endocrine: Endocrine: Reports no additional endocrine complaints Hematologic/Lymphatic: Hematologic/Lymphatic: Reports no additional hematologic/lymphatic complaints Allergic/Immunologic: Allergic/Immunologic: Reports no additional allergic/immunologic complaints PMFSH Past Medical History Medical History Squamous cell carcinoma of anal canal Schizophrenia Asthma History of gallbladder disease Chronic pain of left knee Low vitamin D level Dyslipidemia Mental health disorder Hx of Lyme disease Congenital deafness Family History Family History Mother Hypertension Surgical History Surgical History Hx of tubal ligation Hx of appendectomy History of cholecystectomy Hx of foot surgery Social History Social History Household Members: None Housing: Apartment Do you presently have visiting nurse or other home services: Yes (home health aide, medication held) Alcohol intake: former Patient Tobacco Use Status: Former Tobacco user Tobacco use type: Cigarette Cigarette Packs Per Day: 1 Smoked in Last 30 Days: Yes Patient Interested in Nicotine Replacement: Yes Use of substances other than those prescribed or required for medical reasons: No Substance Use Type: Marijuana Currently Displaying Signs/Symptoms of Drug Intoxication Withdrawal: No Have you been hit, kicked, punched, or otherwise hurt by someone within the past year? If so, by whom?: No Do you feel safe in your current relationship?: No Current Relationship Is there a partner from a previous relationship who is making you feel unsafe now?: No Are you made to feel afraid or neglected: No Gnosticism Healthcare Practices: shinto Advance Directives: No Advance Directives Information Provided: Yes Advance Directives on File: No Do you have a plan to hurt others: No Plan Recently lost weight without trying: Yes How much weight loss: 24-33 pounds Eating poorly because of decreased appetite: Yes Nutrition screen score: 6 Nutrition Risks: Acute nausea or vomiting x1 week Patient : No : No Poor oral hygiene: No service: No Current occupational status: [employer] Allergies Allergy/AdvReac Type Severity Reaction Status Date / Time No Known Allergies Allergy Verified 11/11/23 11:17 [No Known Allergies*] Active Medications: Current Medications Acetaminophen (Acetaminophen 325 Mg Tablet) 650 mg PO Q6H PRN PRN Reason: Pain, Mild (Pain Scale 1-3), fever or headache Albuterol/Ipratropium (Albuterol/Iprat 2.5/0.5mg 3 Ml Ampul.Neb) 3 ml INHALE Q4H PRN PRN Reason: Shortness of Breath/Wheezing Calcium Carbonate (Calcium Carbonate 750 Mg Tab.Chew) 750 mg PO Q4H PRN PRN Reason: Heartburn Docusate Sodium (Docusate Sodium 100 Mg Capsule) 100 mg PO BID [facility] Last Admin: 11/12/23 08:13 Dose: 100 mg Ferrous Sulfate (Ferrous Sulfate 324 Mg Tablet.Dr) 324 mg PO BID [facility] Last Admin: 11/12/23 08:13 Dose: 324 mg Fluticasone/Vilanterol (Fluticasone/Vilanterol 100/25 Blst.W.Dev) 1 puff INHALE RDAILY [facility] Last Admin: 11/12/23 07:54 Dose: Not Given Folic Acid (Folic Acid 1 Mg Tablet) 1 mg PO DAILY [facility] Last Admin: 11/12/23 08:13 Dose: 1 mg Hydrocortisone (Hydrocortisone 2.5 % Rectal Cr 30 Gm Tube) 1 appl AL DAILY [facility] Last Admin: 11/12/23 10:30 Dose: 1 appl Hydromorphone HCl (Hydromorphone Hcl 0.5 Mg/0.5 Ml Syringe) 0.5 mg IVPUSH Q3H PRN; Protocol PRN Reason: Pain, Severe (Pain Scale 7-10) Last Admin: 11/12/23 10:30 Dose: 0.5 mg Lactated Ringer's (Lr) 1,000 mls @ 100 mls/hr IVCONT .Q10H [facility] Last Admin: 11/12/23 03:40 Dose: 100 mls/hr Cefazolin Sodium/Dextrose (Ancef) 2 gm in 50 mls @ 100 mls/hr IV PREOP ONE Stop: 11/13/23 09:52 Lorazepam (Lorazepam 0.5 Mg Tablet) 0.5 mg PO BID [facility] Last Admin: 11/12/23 08:13 Dose: 0.5 mg Magnesium Hydroxide (Milk Of Magnesia 30 Ml Oral.Susp) 30 ml PO DAILY PRN PRN Reason: Constipation Melatonin (Melatonin 3 Mg Tablet) 6 mg PO BEDTIME PRN PRN Reason: Insomnia Last Admin: 11/11/23 22:57 Dose: 6 mg Nicotine (Nicotine 21 Mg Patch.Td24) 21 mg TRANSDERMA DAILY [facility] Last Admin: 11/12/23 08:13 Dose: 21 mg Nicotine (Nicotine 21 Mg Patch.Td24) 21 mg TRANSDERMA DAILY [facility] Last Admin: 11/12/23 08:13 Dose: Not Given Oxycodone HCl (Oxycodone Hcl Immed Release 5 Mg Tablet) 10 mg PO Q4H PRN PRN Reason: pain (scale score 7-10) Last Admin: 11/12/23 12:30 Dose: 10 mg Oxycodone HCl (Oxycodone Hcl Er 10 Mg Tab.Er.12h) 20 mg PO BID [facility] Last Admin: 11/12/23 08:12 Dose: 20 mg Risperidone (Risperidone 2 Mg Tablet) 4 mg PO BEDTIME [facility] Last Admin: 11/12/23 00:19 Dose: Not Given Risperidone (Risperidone 1 Mg Tablet) 1 mg PO BID [facility] Last Admin: 11/12/23 08:13 Dose: 1 mg Sodium Chloride (0.9 % Sodium Chloride Flush 3 Ml Syringe) 3 ml IVFLUSH QSHIFT [facility] Last Admin: 11/12/23 08:14 Dose: Not Given Home Medications ?Medication ?Instructions ?Recorded ?Confirmed ?Last Taken ?Type albuterol sulfate 90 mcg/actuation 2 puff PO Q6H PRN Wheezing 02/25/20 11/11/23 Unknown History aerosol inhaler risperidone 4 mg tablet 4 mg PO BEDTIME 02/25/20 11/11/23 11/10/23 History lorazepam 0.5 mg tablet 0.5 mg PO BID 07/17/23 11/11/23 11/11/23 History acetaminophen 500 mg tablet 500 - 1,000 mg PO Q8-12H PRN Pain 10/28/23 11/11/23 Unknown History fluticasone 500 mcg-salmeterol 50 1 inh inhalation BID 10/28/23 11/11/23 11/11/23 History mcg/dose blistr powdr for inhalation (Advair Diskus) nicotine 21 mg/24 hr daily 1 patch transdermal DAILY 10/28/23 11/11/23 11/11/23 History transdermal patch risperidone 1 mg tablet 1 mg PO BID 10/28/23 11/11/23 11/11/23 History Physical Exam 2 Vital Signs: Vital Signs: Last Vital Signs Temp 97.6 F 11/12/23 07:26 Pulse 76 11/12/23 07:26 Resp 16 11/12/23 07:26 BP 109/53 L 11/12/23 07:26 Pulse Ox 94 11/12/23 07:26 O2 Del Method Room Air 11/12/23 07:26 BMI result Body Mass Index 24.7 Results Labs 11/12/23 05:08 11/12/23 05:08 Labs: Abnormal lab results 11/12/23 Range/Units 05:08 WBC 13.1 H (4.8-10.8) X10*3/uL RBC 4.03 L (4.20-5.50) X10*6/uL Hgb 9.6 L (12.0-16.0) g/dl Hct 31.2 L (37.0-47.0) % MCV 77.4 L (80.0-98.0) fL MCH 23.8 L (27.0-33.0) pg MCHC 30.8 L (31.0-35.0) g/dl RDW 18.8 H (11.0-16.0) % Lymph % (Auto) 42.1 H (20-40) % Lymph # (Auto) 5.5 H (1.2-4.9) X10*3/uL BUN 6 L (9-16) mg/dL Short CBC 11/12/23 Range/Units 05:08 WBC 13.1 H (4.8-10.8) X10*3/uL Hgb 9.6 L (12.0-16.0) g/dl Hct 31.2 L (37.0-47.0) % Plt Count 298 (160-400) X10*3/uL BMP 11/12/23 05:08 Sodium 140 Potassium 4.1 Chloride 104 Carbon Dioxide 26 BUN 6 L Creatinine 0.69 Calcium 9.9 Imaging Additional studies: Date of Service: 11/11/23 CT ABDOMEN AND PELVIS WITHOUT CONTRAST CLINICAL INFORMATION: Constipation with history of malignancy, rule out obstruction COMPARISON: CT chest abdomen pelvis 10/23/2023 TECHNIQUE: Multidetector volumetric imaging was performed from the superior aspect of the liver through the pubic symphysis. Sagittal and coronal reformatted images were obtained on the technologist's workstation. This CT examination was performed using dose optimization techniques as appropriate, variously including the following: *Automated exposure control *Adjustment of mA and/or kV according to patient size (this includes techniques or standardized protocols for targeted exams where dose is matched to indication/reason for exam; i.e. extremities or head) *Use of iterative reconstruction technique DLP: 434 mGy-cm FINDINGS: LUNG BASES: The visualized lung bases are unremarkable. There is bibasilar atelectasis. LIVER, GALLBLADDER, AND BILIARY TREE: The liver is enlarged measuring 20 cm in greatest length.. No focal hepatic lesion or biliary ductal dilatation is present. Status post cholecystectomy. PANCREAS: Unremarkable. SPLEEN: The spleen is enlarged at 15.7 cm in greatest transverse dimension. On the ADRENAL GLANDS: Unremarkable. KIDNEYS AND URETERS: The kidneys are normal in size, shape, and attenuation. No hydronephrosis, hydroureter, or calculi seen. No perinephric stranding. BLADDER: Unremarkable. GASTROINTESTINAL TRACT: Again seen is a large infiltrative mass in the perirectal area to the right of the midline anterior to the coccyx which appears to have increased in size since 10/23/2023. It was better seen on the 10/23/2023 study which was performed with IV contrast. In the transverse plane the mass measures 7.6 x 6.1 cm, previously 6.5 x 5.7 cm. There is loss of the fat plane between this mass and the colon. Moderate stool burden is present in the colon. ABDOMINAL WALL: No significant hernia is appreciated. LYMPH NODES: Small right inguinal lymph node is unchanged. There is some shotty retroperitoneal lymph nodes seen which are unchanged as well. There is a right obturator lymph node present to the left of the rectum that has increased in size from 1.2 x 1.2 cm to 1.5 x 1.1 cm (2:73 compare prior 3:70). A right external iliac node has increased in size from 1.8 x 0.9 cm to 2.1 x 0.9 cm (2:77 compare prior 3:73). Lymphadenopathy better seen and characterized on the pelvic MRI with and without contrast earlier today. VASCULAR: Unremarkable. PELVIC VISCERA: The uterus and adnexa are unremarkable. OSSEOUS STRUCTURES: Unremarkable. IMPRESSION: 1. No evidence of bowel obstruction. 2. Large infiltrative mass in the perirectal area has increased in size since 10/23/2023. 3. Pelvic lymphadenopathy has increased in size. Biopsy results from a right inguinal lymph node are pending. 4. Incidental note made of hepatosplenomegaly and cholecystectomy. Assessment and Plan (1) Obstipation: Status: Acute (2) Squamous cell carcinoma of anal canal: Status: Acute (3) Urinary retention: Status: Acute Plan Urinary retention likely secondary to rectal cancer diagnosis Cont rocha. Outpatient urology follow up Procedures Date of Service Date of Service: 11/12/23
--- NOTE | 2023-11-12 13:40 | MHC.CLN ---
NUTRITION CURRENTLY NPO FOR DIVERTING COLOSTOMY SURGERY 11/12. KNOWN FROM PRIOR ADM WITH DISCHARGE 11/07. NUTRITION DX NON SEVERE MALNUTRITION IN THE CONTEXT OF CHRONIC ILLNESS. SIGNIFICANT WEIGHT LOSS X APPROX ONE YEAR -23%. MONITOR FOR DIET ADVANCEMENT AND PO INTAKE.
--- NOTE | 2023-11-12 13:43 | P.PNIM_ITS ---
Subjective Subjective Date of Service: 11/13/23 Interval History: squamous cell carcinoma Review of Systems abd pain similar passing bm's urinary retention Physical Exam 2 Vital Signs: Vital Signs: Last Vital Signs Temp 97.6 F 11/12/23 07:26 Pulse 76 11/12/23 07:26 Resp 16 11/12/23 07:26 BP 109/53 L 11/12/23 07:26 Pulse Ox 94 11/12/23 07:26 O2 Del Method Room Air 11/12/23 07:26 BMI result Body Mass Index 24.7 Appearance: Alert.? Oriented X3.? cvs: rrr, [id number] , no murmur res: clear to auscultation ,no rhonchii or wheezing abd: no rebound or guarding ,nt, bs present,rectal pain ext pulses present , no cyanosis . neuro: axo3 , nonfocal. Objective Data Active Medications Acetaminophen (Acetaminophen 325 Mg Tablet) 650 mg PO Q6H PRN PRN Reason: Pain, Mild (Pain Scale 1-3), fever or headache Albuterol/Ipratropium (Albuterol/Iprat 2.5/0.5mg 3 Ml Ampul.Neb) 3 ml INHALE Q4H PRN PRN Reason: Shortness of Breath/Wheezing Calcium Carbonate (Calcium Carbonate 750 Mg Tab.Chew) 750 mg PO Q4H PRN PRN Reason: Heartburn Docusate Sodium (Docusate Sodium 100 Mg Capsule) 100 mg PO BID [facility] Last Admin: 11/12/23 08:13 Dose: 100 mg Documented By: ARTHUR Ferrous Sulfate (Ferrous Sulfate 324 Mg Tablet.) 324 mg PO BID [facility] Last Admin: 11/12/23 08:13 Dose: 324 mg Documented By: ARTHUR Fluticasone/Vilanterol (Fluticasone/Vilanterol 100/25 Blst.W.Dev) 1 puff INHALE RDAILY [facility] Last Admin: 11/12/23 07:54 Dose: Not Given Documented By: KAREN Non-Admin Reason: Med Not Available Folic Acid (Folic Acid 1 Mg Tablet) 1 mg PO DAILY [facility] Last Admin: 11/12/23 08:13 Dose: 1 mg Documented By: ARTHUR Hydrocortisone (Hydrocortisone 2.5 % Rectal Cr 30 Gm Tube) 1 appl ND DAILY [facility] Last Admin: 11/12/23 10:30 Dose: 1 appl Documented By: ARTHUR Hydromorphone HCl (Hydromorphone Hcl 0.5 Mg/0.5 Ml Syringe) 0.5 mg IVPUSH Q3H PRN; Protocol PRN Reason: Pain, Severe (Pain Scale 7-10) Last Admin: 11/12/23 10:30 Dose: 0.5 mg Documented By: ARTHUR Lactated Ringer's (Lr) 1,000 mls @ 100 mls/hr IVCONT .Q10H [facility] Last Admin: 11/12/23 13:41 Dose: Not Given Documented By: ARTHUR Non-Admin Reason: IV Running Cefazolin Sodium/Dextrose (Ancef) 2 gm in 50 mls @ 100 mls/hr IV PREOP ONE Stop: 11/13/23 09:52 Lorazepam (Lorazepam 0.5 Mg Tablet) 0.5 mg PO BID [facility] Last Admin: 11/12/23 08:13 Dose: 0.5 mg Documented By: ARTHUR Magnesium Hydroxide (Milk Of Magnesia 30 Ml Oral.Susp) 30 ml PO DAILY PRN PRN Reason: Constipation Melatonin (Melatonin 3 Mg Tablet) 6 mg PO BEDTIME PRN PRN Reason: Insomnia Last Admin: 11/11/23 22:57 Dose: 6 mg Documented By: CATY Nicotine (Nicotine 21 Mg Patch.Td24) 21 mg TRANSDERMA DAILY [facility] Last Admin: 11/12/23 08:13 Dose: 21 mg Documented By: ARTHUR Nicotine (Nicotine 21 Mg Patch.Td24) 21 mg TRANSDERMA DAILY [facility] Last Admin: 11/12/23 08:13 Dose: Not Given Documented By: ARTHUR Non-Admin Reason: Duplicate Order Oxycodone HCl (Oxycodone Hcl Immed Release 5 Mg Tablet) 10 mg PO Q4H PRN PRN Reason: pain (scale score 7-10) Last Admin: 11/12/23 12:30 Dose: 10 mg Documented By: ARTHUR Oxycodone HCl (Oxycodone Hcl Er 10 Mg Tab.Er.12h) 20 mg PO BID [facility] Last Admin: 11/12/23 08:12 Dose: 20 mg Documented By: ARTHUR Risperidone (Risperidone 2 Mg Tablet) 4 mg PO BEDTIME [facility] Last Admin: 11/12/23 00:19 Dose: Not Given Documented By: CATY Non-Admin Reason: Patient Asleep Risperidone (Risperidone 1 Mg Tablet) 1 mg PO BID [facility] Last Admin: 11/12/23 08:13 Dose: 1 mg Documented By: ARTHUR Sodium Chloride (0.9 % Sodium Chloride Flush 3 Ml Syringe) 3 ml IVFLUSH QSHIFT [facility] Last Admin: 11/12/23 08:14 Dose: Not Given Documented By: ARTHUR Non-Admin Reason: Previously Administered Labs 11/12/23 05:08 11/12/23 05:08 Labs: Laboratory Results - last 24 hr 11/12/23 05:08 MCV 77.4 L MCH 23.8 L MCHC 30.8 L RDW 18.8 H Plt Count 298 MPV 11.4 Immature Gran % (Auto) 0.2 Neut % (Auto) 50.3 Lymph % (Auto) 42.[address] [place] % (Auto) 5.7 Eos % (Auto) 1.5 Baso % (Auto) 0.2 Lymph # (Auto) 5.[address] [place] # (Auto) 0.8 Eos # (Auto) 0.2 Baso # (Auto) 0.0 Abs Immat Gran (auto) 0.03 Absolute Neuts (auto) 6.6 Absolute Nucleated RBC 0.000 Nucleated RBC % (auto) 0.0 Smear Tech's Comments VERIFIED Anion Gap 14 Estim Creat Clear Calc 84.0 Estimated GFR > 60 Random Glucose 89 Calcium 9.9 Assessment and Plan (1) Squamous cell carcinoma of anal canal: Status: Acute Plan 52-year-old female with history of schizophrenia, anxiety/depression, metastatic cancer likely anal in origin and mild persistent asthma who is deaf and requires ASL interpretation presents to the ED earlier today [facility] for [facility] of obstipation. ASL interpretor Dorie [phone] assisted with sign language interpretation. She will be admitted for further management of obstipation due to bowel obstruction secondary to anal malignancy. Obstipation due to bowel obstruction secondary metastatic anal malignancy -MRI of the pelvis showed findings most consistent with malignancy centered in the anal canal/lower rectum, possibly anal in origin, though origin evaluation is limited due to size of the lesion. There is also invasion of several structures in the pelvis including anal sphincters, pelvic floor musculature, ischioanal fossa, presacral space, vagina and possibly right cervix with suspicious lymph nodes noted at multiple calista stations including inguinal, iliac, mesorectal and CHAYO territories. -Clear liquids for now. NPO after midnight. Continue LR oncology and General surgery consult-? possible diverting colostomy -Oncology consult -pain management prn Chronic leukocytosis -due to malignancy, not infectious Hypotension/soft BPs -r/t malignancy, no sepsis -can consider midodrine if continues Chronic microcytic anemia -no overt bleeding, above transfusion threshold -follow schizophrenia/mood disorder -continue home medications mild persistent asthma -no exacerbation -continue Flovent, albuterol p.r.n. urinary retention: pvr's with stright cath prn DVT prophylaxis-give one dose heparin now, resume post operatively Full code ongoing hospitlisation need for management of obstipation due to bowel obstruction r/t anal malignancy requiring expert consultation and diverting colonocopy Quality Stroke Does the patient have a stroke diagnosis?: No VTE Prior VTE?: No VTE Risk Level:: Medical - moderate - high VTE Device Contraindication: Treatment Not Indicated VTE Drug Contraindication: N/A - Med Ordered
--- NOTE | 2023-11-12 14:15 | PM.EVENT ---
Event Note Date of Service: 11/12/23 Event Note: Seen on afternoon rounds Appears comfortable Abdomen soft Mild diffuse tenderness She is scheduled for HALS diverting colostomy tomorrow view of large, obstructing bulky anal mass extending into the rectosigmoid and pelvis I reviewed with her the planned procedure I have discussed this with her sister Shaina as well as her out reach staff at bedside The patient has given consent Time Spent With Patient Time: Total time managing care of this patient today ____ minutes.
[2023-11-12 15:16] VITALS: BP 100/58; PULSE 76; RESP 14; TEMP 36.6; O2SAT 93
[2023-11-12 19:21] VITALS: BP 98/55; PULSE 67; RESP 16; TEMP 36.2; O2SAT 94
[2023-11-12] MEDS: risperiDONE 2 MG TABLET 4 MG PO (20:36)
[2023-11-12] MEDS: Melatonin 3 MG TABLET 6 MG PO (20:37)
[2023-11-13] VITALS (15 sets, daily range): BP systolic 97–129; BP diastolic 43–71; PULSE 66–83; RESP 12–20; TEMP 36.2–37.2; O2SAT 91–100
[2023-11-13] MEDS: HYDROmorphone HCl 0.5 MG/0.5 ML SYRINGE IVPUSH ×4 (04:53→22:37)
[2023-11-13] MEDS: Lactated Ringers 1,000 ML 100 ML IVCONT (04:53)
--- NOTE | 2023-11-13 07:13 | HO.STUDPN_ITS ---
Subjective Subjective Date of Service: 11/13/23 <Felicity ParsonsBrien - Last Filed: 11/13/23 07:23> 11/14/23 <Desiree Barnes PA-C - Last Filed: 11/14/23 14:22> Interval History: ASL interpretor Fidelina was utilized for this evaluation. Ms. 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 She reports two day history of worsening watery diarrhea and 10/10 abdominal pain. Per nursing staff, she is incontinent of stool and reports stools to be liquid black. Has rocha catheter in place due to urinary retention. Patient denies history of urinary retention leading up to hospitalization. <Felicity Hertford - Last Filed: 11/13/23 07:23> Review of Systems ROS negative except for as stated in HPI <Felicity Hertford - Last Filed: 11/13/23 07:23> Constitutional Constitutional: Reports as per HPI and Reports no additional constitutional complaints < Felicity Hertford - Last Filed: 11/13/23 07:23> Eyes Eyes: Reports no additional eye complaints <Felicity Hertford - Last Filed: 11/13/23 07:23> ENT Ears, Nose, Mouth, and Throat: Reports system reviewed and no additional complaints, except as documented <Felicity Hertford - Last Filed: 11/13/23 07:23> Cardiovascular Cardiovascular: Reports no additional cardiovascular complaints <Felicity Hertford - Last Filed: 11/13/23 07:23> Respiratory Respiratory: Reports no additional respiratory complaints <Felicity Hertford - Last Filed: 11/13/23 07:23> Gastrointestinal Gastrointestinal: Reports no additional gastrointestinal complaints <Felicity Hertford - Last Filed: 11/13/23 07:23> Musculoskeletal Musculoskeletal: Reports no additional musculoskeletal complaints <Felicity Hertford - Last Filed: 11/13/23 07:23> Integumentary/Breasts Skin/Breast: Reports no additional skin complaints <Felicity Hertford - Last Filed: 11/13/23 07:23> Neurologic Neurologic: Reports system reviewed and no additional complaints, except as documented <Felicity Rocha'Brien - Last Filed: 11/13/23 07:23> Psychiatric Psychiatric: Reports no additional psychiatric complaints <Felicity Hertford - Last Filed: 11/13/23 07:23> Endocrine Endocrine: Reports no additional endocrine complaints <Felicity Hertford - Last Filed: 11/13/23 07:23> Hematologic/Lymphatic Hematologic/Lymphatic: Reports no additional hematologic/lymphatic complaints <Felicity Hertford - Last Filed: 11/13/23 07:23> Allergic/Immunologic Allergic/Immunologic: Reports no additional allergic/immunologic complaints <Felicity Hertford - Last Filed: 11/13/23 07:23> Physical Exam 2 Vital Signs: Vital Signs: Last Vital Signs Temp 97.8 F 11/13/23 03:49 Pulse 66 11/13/23 03:49 Resp 16 11/13/23 03:49 BP 97/50 L 11/13/23 03:49 Pulse Ox 93 11/13/23 03:49 O2 Del Method Room Air 11/13/23 03:49 BMI result Body Mass Index 24.7 <Felicity Hertford - Last Filed: 11/13/23 07:23> Const: General: cooperative, comfortable and no acute distress <Felicity Hertford - Last Filed: 11/13/23 07:23> Orientation/consciousness: patient oriented x3 <Felicity Hertford Last Filed: 11/13/23 07:23> Limitations: no limitations <Felicity Hertford - Last Filed: 11/13/23 07:23> HEENT: Head: Yes normal to inspection, Yes normocephalic and Yes atraumatic <Felicity Hertford - Last Filed: 11/13/23 07:23> Ears: hearing grossly normal bilaterally <Felicity - Last Filed: 11/13/23 07:23> General nose exam: Normal external nose present <Felicity Hertford - Last Filed: 11/13/23 07:23> Face and sinus: Yes normal facial exam <Felicity Hertford - Last Filed: 11/13/23 07:23> Mouth: Normal oral and palatal mucosa present, oropharynx normal and moist mucous membranes <Felicity Hertford - Last Filed: 11/13/23 07:23> Throat: Yes posterior oropharynx normal <Felicity Hertford - Last Filed: 11/13/23 07:23> Eyes: General: appearance normal, both eyes and all related structures < Felicity Hertford - Last Filed: 11/13/23 07:23> Alignment and Position: alignment normal <Felicity Hertford - Last Filed: 11/13/23 07:23> Eyelids: Yes eyelids normal <Felicity Hertford - Last Filed: 11/13/23 07:23> Conjunctivae: conjunctivae normal <Felicity Hertford - Last Filed: 11/13/23 07:23> Sclerae: sclerae normal <Felicity Hertford - Last Filed: 11/13/23 07:23> Pupils: Pupils normal by confrontation <Felicity Hertford - Last Filed: 11/13/23 07:23> EOM: EOMs intact bilaterally <Felicity Hertford - Last Filed: 11/13/23 07:23> Neck: Neck: Yes normal visual inspection, Yes full ROM and Yes no lymphadenopathy <Felicity Hertford - Last Filed: 11/13/23 07:23> Lymphatic: no lymphadenopathy noted <Felicity Hertford - Last Filed: 11/13/23 07:23> Chest: Chest palpation & inspection: normal inspection of the chest < Felicity Hertford - Last Filed: 11/13/23 07:23> Resp: Effort & Inspection: normal respiratory effort and able to speak in complete sentences <Felicity Hertford - Last Filed: 11/13/23 07:23> Auscultation: clear to auscultation bilaterally, no crackles, no rales, no rhonchi and no wheezes <Felicity Hertford - Last Filed: 11/13/23 07:23> Cardio: Rate: regular rate <Felicity Hertford - Last Filed: 11/13/23 07:23> Rhythm: regular rhythm <Felicity Hertford - Last Filed: 11/13/23 07:23> Heart sounds: S1 normal heart sound present and S2 normal heart sound present <Felicity Hertford - Last Filed: 11/13/23 07:23> GI: Other: Mild diffuse tenderness <Felicity Hertford - Last Filed: 11/13/23 07:23> Inspection: Yes normal to inspection <[facility] - Last Filed: 11/13/23 07:23> Palpation (GI): Soft to palpation, not firm and no guarding <[facility] - Last Filed: 11/13/23 07:23> Skin: General skin exam: no rashes or lesions noted <[facility] - Last Filed: 11/13/23 07:23> Trauma: no lacerations or abrasions <Felicity Hertford - Last Filed: 11/13/23 07:23> Wounds: no wounds <[facility] - Last Filed: 11/13/23 07:23> Neuro: General: patient oriented x3 and moves all extremities <Felicity Hertford - Last Filed: 11/13/23 07:23> Extrem: General: Yes normal to inspection <Felicity Hertford - Last Filed: 11/13/23 07:23> Right upper extremity: normal to inspection <Felicity Hertford - Last Filed: 11/13/23 07:23> Left upper extremity: normal to inspection <Felicity Hertford - Last Filed: 11/13/23 07:23> Right lower extremity: normal to inspection <Felicity Hertford - Last Filed: 11/13/23 07:23> Left lower extremity: normal to inspection <Felicity Hertford - Last Filed: 11/13/23 07:23> Objective Data Active Medications Acetaminophen (Acetaminophen 325 Mg Tablet) 650 mg PO Q6H PRN PRN Reason: Pain, Mild (Pain Scale 1-3), fever or headache Albuterol/Ipratropium (Albuterol/Iprat 2.5/0.5mg 3 Ml Ampul.Neb) 3 ml INHALE Q4H PRN PRN Reason: Shortness of Breath/Wheezing Calcium Carbonate (Calcium Carbonate 750 Mg Tab.Chew) 750 mg PO Q4H PRN PRN Reason: Heartburn Docusate Sodium (Docusate Sodium 100 Mg Capsule) 100 mg PO BID [facility] Last Admin: 11/12/23 20:35 Dose: Not Given Documented By: JUAN MANUEL Non-Admin Reason: loose stools Ferrous Sulfate (Ferrous Sulfate 324 Mg Tablet.Dr) 324 mg PO BID [facility] Last Admin: 11/12/23 20:37 Dose: 324 mg Documented By: JUAN MANUEL Fluticasone/Vilanterol (Fluticasone/Vilanterol 100/25 Blst.W.Dev) 1 puff INHALE RDAILY [facility] Last Admin: 11/12/23 07:54 Dose: Not Given Documented By: KAREN Non-Admin Reason: Med Not Available Folic Acid (Folic Acid 1 Mg Tablet) 1 mg PO DAILY [facility] Last Admin: 11/12/23 08:13 Dose: 1 mg Documented By: ARTHUR Hydrocortisone (Hydrocortisone 2.5 % Rectal Cr 30 Gm Tube) 1 appl WA DAILY [facility] Last Admin: 11/12/23 10:30 Dose: 1 appl Documented By: ARTHUR Hydromorphone HCl (Hydromorphone Hcl 0.5 Mg/0.5 Ml Syringe) 0.5 mg IVPUSH Q3H PRN; Protocol PRN Reason: Pain, Severe (Pain Scale 7-10) Last Admin: 11/13/23 04:53 Dose: 0.5 mg Documented By: DEEPAK Lactated Ringer's (Lr) 1,000 mls @ 100 mls/hr IVCONT .Q10H [facility] Last Admin: 11/13/23 04:53 Dose: 100 mls/hr Documented By: DEEPAK Cefazolin Sodium/Dextrose (Ancef) 2 gm in 50 mls @ 100 mls/hr IV PREOP ONE Stop: 11/13/23 09:52 Lorazepam (Lorazepam 0.5 Mg Tablet) 0.5 mg PO BID [facility] Last Admin: 11/12/23 20:37 Dose: 0.5 mg Documented By: JUAN MANUEL Magnesium Hydroxide (Milk Of Magnesia 30 Ml Oral.Susp) 30 ml PO DAILY PRN PRN Reason: Constipation Melatonin (Melatonin 3 Mg Tablet) 6 mg PO BEDTIME PRN PRN Reason: Insomnia Last Admin: 11/12/23 20:37 Dose: 6 mg Documented By: JUAN MANUEL Nicotine (Nicotine 21 Mg Patch.Td24) 21 mg TRANSDERMA DAILY [facility] Last Admin: 11/12/23 08:13 Dose: 21 mg Documented By: ARTHUR Nicotine (Nicotine 21 Mg Patch.Td24) 21 mg TRANSDERMA DAILY [facility] Last Admin: 11/12/23 08:13 Dose: Not Given Documented By: ARTHRU Non-Admin Reason: Duplicate Order Oxycodone HCl (Oxycodone Hcl Immed Release 5 Mg Tablet) 10 mg PO Q4H PRN PRN Reason: pain (scale score 7-10) Last Admin: 11/12/23 17:29 Dose: 10 mg Documented By: MADISON Oxycodone HCl (Oxycodone Hcl Er 10 Mg Tab.Er.12h) 20 mg PO BID [facility] Last Admin: 11/12/23 20:37 Dose: 20 mg Documented By: JUAN MANUEL Risperidone (Risperidone 2 Mg Tablet) 4 mg PO BEDTIME [facility] Last Admin: 11/12/23 20:36 Dose: 4 mg Documented By: JUAN MANUEL Risperidone (Risperidone 1 Mg Tablet) 1 mg PO BID [facility] Last Admin: 11/12/23 20:36 Dose: 1 mg Documented By: JUAN MANUEL Sodium Chloride (0.9 % Sodium Chloride Flush 3 Ml Syringe) 3 ml IVFLUSH QSHIFT [facility] Last Admin: 11/12/23 23:23 Dose: Not Given Documented By: DEEPAK Non-Admin Reason: IV Running <Felicity Davies - Last Filed: 11/13/23 07:23> Labs CBC & Chem 7: 11/14/23 07:45 11/14/23 07:45 <Felicity Davies - Last Filed: 11/13/23 07:23> Labs: Laboratory Results - last 24 hr 11/12/23 05:08 MCV 77.4 L MCH 23.8 L MCHC 30.8 L RDW 18.8 H Plt Count 298 MPV 11.4 Immature Gran % (Auto) 0.2 Neut % (Auto) 50.3 Lymph % (Auto) 42.1 H [place] % (Auto) 5.7 Eos % (Auto) 1.5 Baso % (Auto) 0.2 Lymph # (Auto) 5.5 H [place] # (Auto) 0.8 Eos # (Auto) 0.2 Baso # (Auto) 0.0 Abs Immat Gran (auto) 0.03 Absolute Neuts (auto) 6.6 Absolute Nucleated RBC 0.000 Nucleated RBC % (auto) 0.0 Smear Tech's Comments VERIFIED Anion Gap 14 Estim Creat Clear Calc 84.0 Estimated GFR > 60 Random Glucose 89 Calcium 9.9 <Felicity Davies - Last Filed: 11/13/23 07:23> Assessment and Plan (1) Squamous cell carcinoma of anal canal: Status: Acute <Felicity Davies - Last Filed: 11/13/23 07:23> Assessment and Plan: Ms. 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 She reports 2 day history of incontinence with liquid black stools. Urinary retention likely secondary to rectal cancer diagnosis. Pending OR findings, evaluation and treatment, anticipate post operative care will be reliant on this. Has rocha catheter in place, outpatient urology follow up. <Felicity Davies - Last Filed: 11/13/23 07:23> Quality Stroke Does the patient have a stroke diagnosis?: No <Felicity Davies - Last Filed: 11/13/23 07:23> VTE Prior VTE?: No <Felicity Davies - Last Filed: 11/13/23 07:23> VTE Risk Level:: Medical - moderate - high <Felicity Davies - Last Filed: 11/13/23 07:23> VTE Device Contraindication: Treatment Not Indicated <Felicity Davies - Last Filed: 11/13/23 07:23> VTE Drug Contraindication: N/A - Med Ordered <Felicity Davies - Last Filed: 11/13/23 07:23>
[2023-11-13] MEDS: Fluticasone/Vilanterol 100/25 BLST.W.DEV 1 PUFF INHALE (07:47)
--- NOTE | 2023-11-13 08:17 | PM.PNGS ---
Subjective Subjective Date of Service: 11/13/23 Interval history: Some abdominal pain Denies any BMs Denies vomiting Physical Exam Vital Signs: Vital Signs: Last Vital Signs Temp 99 F 11/13/23 07:52 Pulse 66 11/13/23 07:52 Resp 17 11/13/23 07:52 BP 110/57 L 11/13/23 07:52 Pulse Ox 94 11/13/23 07:52 O2 Del Method Room Air 11/13/23 07:52 BMI result Body Mass Index 24.7 Const: Other: Frail looking but not in any distress Resp: Effort & Inspection: normal respiratory effort Cardio: Rate: regular rate GI: Palpation (GI): Soft to palpation, not firm, Tenderness to palpation present (GI) (Mild diffuse tenderness) and no guarding Objective Data Active Medications Acetaminophen (Acetaminophen 325 Mg Tablet) 650 mg PO Q6H PRN PRN Reason: Pain, Mild (Pain Scale 1-3), fever or headache Albuterol/Ipratropium (Albuterol/Iprat 2.5/0.5mg 3 Ml Ampul.Neb) 3 ml INHALE Q4H PRN PRN Reason: Shortness of Breath/Wheezing Calcium Carbonate (Calcium Carbonate 750 Mg Tab.Chew) 750 mg PO Q4H PRN PRN Reason: Heartburn Docusate Sodium (Docusate Sodium 100 Mg Capsule) 100 mg PO BID [facility] Last Admin: 11/12/23 20:35 Dose: Not Given Documented By: JUAN MANUEL Non-Admin Reason: loose stools Ferrous Sulfate (Ferrous Sulfate 324 Mg Tablet.Dr) 324 mg PO BID [facility] Last Admin: 11/12/23 20:37 Dose: 324 mg Documented By: JUAN MANUEL Fluticasone/Vilanterol (Fluticasone/Vilanterol 100/25 Blst.W.Dev) 1 puff INHALE RDAILY [facility] Last Admin: 11/13/23 07:47 Dose: 1 puff Documented By: HELDER Folic Acid (Folic Acid 1 Mg Tablet) 1 mg PO DAILY [facility] Last Admin: 11/12/23 08:13 Dose: 1 mg Documented By: ARTHUR Hydrocortisone (Hydrocortisone 2.5 % Rectal Cr 30 Gm Tube) 1 appl ID DAILY [facility] Last Admin: 11/12/23 10:30 Dose: 1 appl Documented By: ARTHUR Hydromorphone HCl (Hydromorphone Hcl 0.5 Mg/0.5 Ml Syringe) 0.5 mg IVPUSH Q3H PRN; Protocol PRN Reason: Pain, Severe (Pain Scale 7-10) Last Admin: 11/13/23 04:53 Dose: 0.5 mg Documented By: DEEPAK Lactated Ringer's (Lr) 1,000 mls @ 100 mls/hr IVCONT .Q10H [facility] Last Admin: 11/13/23 04:53 Dose: 100 mls/hr Documented By: DEEPAK Cefazolin Sodium/Dextrose (Ancef) 2 gm in 50 mls @ 100 mls/hr IV PREOP ONE Stop: 11/13/23 09:52 Sodium Chloride (Ns) 1,000 mls @ 100 mls/hr IVCONT .Q10H [facility] Last Admin: 11/13/23 07:43 Dose: Not Given Documented By: SOLANGE Non-Admin Reason: IV Running Lorazepam (Lorazepam 0.5 Mg Tablet) 0.5 mg PO BID [facility] Last Admin: 11/12/23 20:37 Dose: 0.5 mg Documented By: JUAN MANUEL Magnesium Hydroxide (Milk Of Magnesia 30 Ml Oral.Susp) 30 ml PO DAILY PRN PRN Reason: Constipation Melatonin (Melatonin 3 Mg Tablet) 6 mg PO BEDTIME PRN PRN Reason: Insomnia Last Admin: 11/12/23 20:37 Dose: 6 mg Documented By: JUAN MANUEL Nicotine (Nicotine 21 Mg Patch.Td24) 21 mg TRANSDERMA DAILY [facility] Last Admin: 11/12/23 08:13 Dose: 21 mg Documented By: ARTHUR Nicotine (Nicotine 21 Mg Patch.Td24) 21 mg TRANSDERMA DAILY [facility] Last Admin: 11/12/23 08:13 Dose: Not Given Documented By: ARTHUR Non-Admin Reason: Duplicate Order Oxycodone HCl (Oxycodone Hcl Immed Release 5 Mg Tablet) 10 mg PO Q4H PRN PRN Reason: pain (scale score 7-10) Last Admin: 11/12/23 17:29 Dose: 10 mg Documented By: MADISON Oxycodone HCl (Oxycodone Hcl Er 10 Mg Tab.Er.12h) 20 mg PO BID [facility] Last Admin: 11/12/23 20:37 Dose: 20 mg Documented By: JUAN MANUEL Risperidone (Risperidone 2 Mg Tablet) 4 mg PO BEDTIME [facility] Last Admin: 11/12/23 20:36 Dose: 4 mg Documented By: JUAN MANUEL Risperidone (Risperidone 1 Mg Tablet) 1 mg PO BID [facility] Last Admin: 11/12/23 20:36 Dose: 1 mg Documented By: JUAN MANUEL Sodium Chloride (0.9 % Sodium Chloride Flush 3 Ml Syringe) 3 ml IVFLUSH QSHIFT [facility] Last Admin: 11/13/23 07:43 Dose: Not Given Documented By: SOLANGE Non-Admin Reason: IV Running Labs 11/12/23 05:08 11/12/23 05:08 Labs: Laboratory Results - last 24 hr 11/12/23 05:08 Immature Gran % (Auto) 0.2 Neut % (Auto) 50.3 Lymph % (Auto) 42.1 H [place] % (Auto) 5.7 Eos % (Auto) 1.5 Baso % (Auto) 0.2 Lymph # (Auto) 5.5 H [place] # (Auto) 0.8 Eos # (Auto) 0.2 Baso # (Auto) 0.0 Abs Immat Gran (auto) 0.03 Absolute Neuts (auto) 6.6 Absolute Nucleated RBC 0.000 Nucleated RBC % (auto) 0.0 Smear Tech's Comments VERIFIED Procedures Date of Service Date of Service: 11/13/23 Progress Note: A&P Assessment and plan (1) Squamous cell carcinoma of anal canal: Status: Acute Assessment and Plan: Has a large bulky tumor extending from the anus to the rectosigmoid No identifiable lumen on attempted anoscopy Heavy stool volume throughout the colon all the way to the rectosigmoid suggestive of obstruction Cecum not markedly dilated on CT scan but patient denies any recall of bowel movements for over a week now Best to proceed with diverting stoma in view of impending complete obstruction I again discussed with her the technique of the procedure I reviewed the risks including but not limited to bleeding, infections, injury to other organs, stoma retraction Exam benign at this time I also discussed the planned procedure with her sister Shaina and outreach staff member Discussed with hospitalist service Time Spent With Patient Time: Total time managing care of this patient today ____ minutes. Quality Stroke Does the patient have a stroke diagnosis?: No VTE Prior VTE?: No VTE Risk Level:: Medical - moderate - high VTE Device Contraindication: Treatment Not Indicated VTE Drug Contraindication: N/A - Med Ordered
--- NOTE | 2023-11-13 09:17 | MHC.CM.PN ---
IMM 11/12/23 DX obstruction HX CA Plan is OR 11/13/23 resection for obstruction and colostomy formation. Patient has been staying with her sister/HCP, Jimena. Patient is very weak. She has not been able mehreen PO for days. The patient is able to ambulate to the bathroom. Patients sister is concerned about ostomy management once pt is discharged. [facility] may be a facility via BLS. Prior to last admit patient was living home alone. She is not feeling safe to live at home now. CM will follow for discharge.
--- NOTE | 2023-11-13 09:30 | P.CONAN_ITS ---
[facility] Active Problems Active Problems: All Active Problems Urinary retention (Acute) Squamous cell carcinoma of anal canal (Acute) Obstipation (Acute) Metastatic cancer (Acute) Intractable pain (Acute) Pain management (Acute) Encounter for well woman exam with routine gynecological exam (Acute) Leucocytosis (Chronic) Past Medical History Medical History Squamous cell carcinoma of anal canal Schizophrenia Asthma History of gallbladder disease Chronic pain of left knee Low vitamin D level Dyslipidemia Mental health disorder Hx of Lyme disease Congenital deafness Family History Family History Mother Hypertension Family history of problems with anesthesia: No Surgical History Surgical History Hx of tubal ligation Hx of appendectomy History of cholecystectomy Hx of foot surgery History of Problems with Anesthesia: No Social History Social History Household Members: None Housing: Apartment Do you presently have visiting nurse or other home services: Yes (home health aide, medication held) Alcohol intake: former Patient Tobacco Use Status: Former Tobacco user Tobacco use type: Cigarette Cigarette Packs Per Day: 1 Smoked in Last 30 Days: Yes Patient Interested in Nicotine Replacement: Yes Use of substances other than those prescribed or required for medical reasons: No Substance Use Type: Marijuana Currently Displaying Signs/Symptoms of Drug Intoxication Withdrawal: No Have you been hit, kicked, punched, or otherwise hurt by someone within the past year? If so, by whom?: No Do you feel safe in your current relationship?: No Current Relationship Is there a partner from a previous relationship who is making you feel unsafe now?: No Are you made to feel afraid or neglected: No [facility] Practices: church Advance Directives: No Advance Directives Information Provided: Yes Advance Directives on File: No Do you have a plan to hurt others: No Plan Recently lost weight without trying: Yes How much weight loss: 24-33 pounds Eating poorly because of decreased appetite: Yes Nutrition screen score: 6 Nutrition Risks: Acute nausea or vomiting x1 week Patient : No : No Poor oral hygiene: No service: No Current occupational status: disabled Meds Allergies Allergy/AdvReac Type Severity Reaction Status Date / Time No Known Allergies Allergy Verified 11/11/23 11:17 [No Known Allergies*] Active Medications: Current Medications Acetaminophen (Acetaminophen 325 Mg Tablet) 650 mg PO Q6H PRN PRN Reason: Pain, Mild (Pain Scale 1-3), fever or headache Albuterol/Ipratropium (Albuterol/Iprat 2.5/0.5mg 3 Ml Ampul.Neb) 3 ml INHALE Q4H PRN PRN Reason: Shortness of Breath/Wheezing Calcium Carbonate (Calcium Carbonate 750 Mg Tab.Chew) 750 mg PO Q4H PRN PRN Reason: Heartburn Docusate Sodium (Docusate Sodium 100 Mg Capsule) 100 mg PO BID [facility] Last Admin: 11/12/23 20:35 Dose: Not Given Ferrous Sulfate (Ferrous Sulfate 324 Mg Tablet.Dr) 324 mg PO BID [facility] Last Admin: 11/12/23 20:37 Dose: 324 mg Fluticasone/Vilanterol (Fluticasone/Vilanterol 100/25 Blst.W.Dev) 1 puff INHALE RDAILY [facility] Last Admin: 11/13/23 07:47 Dose: 1 puff Folic Acid (Folic Acid 1 Mg Tablet) 1 mg PO DAILY [facility] Last Admin: 11/12/23 08:13 Dose: 1 mg Hydrocortisone (Hydrocortisone 2.5 % Rectal Cr 30 Gm Tube) [address] DAILY [facility] Last Admin: 11/12/23 10:30 Dose: 1 appl Hydromorphone HCl (Hydromorphone Hcl 0.5 Mg/0.5 Ml Syringe) 0.5 mg IVPUSH Q3H PRN; Protocol PRN Reason: Pain, Severe (Pain Scale 7-10) Last Admin: 11/13/23 04:53 Dose: 0.5 mg Lactated Ringer's (Lr) 1,000 mls @ 100 mls/hr IVCONT .Q10H [facility] Last Admin: 11/13/23 04:53 Dose: 100 mls/hr Cefazolin Sodium/Dextrose (Ancef) 2 gm in 50 mls @ 100 mls/hr IV PREOP ONE Stop: 11/13/23 09:52 Sodium Chloride (Ns) 1,000 mls @ 100 mls/hr IVCONT .Q10H [facility] Last Admin: 11/13/23 07:43 Dose: Not Given Lorazepam (Lorazepam 0.5 Mg Tablet) 0.5 mg PO BID [facility] Last Admin: 11/12/23 20:37 Dose: 0.5 mg Magnesium Hydroxide (Milk Of Magnesia 30 Ml Oral.Susp) 30 ml PO DAILY PRN PRN Reason: Constipation Melatonin (Melatonin 3 Mg Tablet) 6 mg PO BEDTIME PRN PRN Reason: Insomnia Last Admin: 11/12/23 20:37 Dose: 6 mg Nicotine (Nicotine 21 Mg Patch.Td24) 21 mg TRANSDERMA DAILY [facility] Last Admin: 11/12/23 08:13 Dose: 21 mg Nicotine (Nicotine 21 Mg Patch.Td24) 21 mg TRANSDERMA DAILY [facility] Last Admin: 11/12/23 08:13 Dose: Not Given Oxycodone HCl (Oxycodone Hcl Immed Release 5 Mg Tablet) 10 mg PO Q4H PRN PRN Reason: pain (scale score 7-10) Last Admin: 11/12/23 17:29 Dose: 10 mg Oxycodone HCl (Oxycodone Hcl Er 10 Mg Tab.Er.12h) 20 mg PO BID [facility] Last Admin: 11/12/23 20:37 Dose: 20 mg Risperidone (Risperidone 2 Mg Tablet) 4 mg PO BEDTIME [facility] Last Admin: 11/12/23 20:36 Dose: 4 mg Risperidone (Risperidone 1 Mg Tablet) 1 mg PO BID [facility] Last Admin: 11/12/23 20:36 Dose: 1 mg Sodium Chloride (0.9 % Sodium Chloride Flush 3 Ml Syringe) 3 ml IVFLUSH QSHIFT [facility] Last Admin: 11/13/23 07:43 Dose: Not Given Home Medications ?Medication ?Instructions ?Recorded ?Confirmed ?Last Taken ?Type albuterol sulfate 90 mcg/actuation 2 puff PO Q6H PRN Wheezing 02/25/20 11/11/23 Unknown History aerosol inhaler risperidone 4 mg tablet 4 mg PO BEDTIME 02/25/20 11/11/23 11/10/23 History lorazepam 0.5 mg tablet 0.5 mg PO BID 07/17/23 11/11/23 11/11/23 History acetaminophen 500 mg tablet 500 - 1,000 mg PO Q8-12H PRN Pain 10/28/23 11/11/23 Unknown History fluticasone 500 mcg-salmeterol 50 1 inh inhalation BID 10/28/23 11/11/23 11/11/23 History mcg/dose blistr powdr for inhalation (Advair Diskus) nicotine 21 mg/24 hr daily 1 patch transdermal DAILY 10/28/23 11/11/23 11/11/23 History transdermal patch risperidone 1 mg tablet 1 mg PO BID 10/28/23 11/11/23 11/11/23 History Exam Height,Weight and Vital Signs: Height 5 ft 2 in Weight 61.235 kg Last Vital Signs Temp 99 F 11/13/23 07:52 Pulse 66 11/13/23 07:52 Resp 17 11/13/23 07:52 BP 110/57 L 11/13/23 07:52 Pulse Ox 94 11/13/23 07:52 O2 Del Method Room Air 11/13/23 07:52 Pertinent Lab Results Pertinent Lab Results: Laboratory Tests 11/11/23 11/12/23 11/13/23 11:44 05:08 07:54 WBC 14.6 H 13.1 H RBC 4.26 4.03 L Hgb 10.4 L 9.6 L Hct 33.3 L 31.2 L MCV 78.2 L 77.4 L MCH 24.4 L 23.8 L MCHC 31.2 30.8 L RDW 18.8 H 18.8 H Plt Count 385 298 MPV 9.3 L 11.4 Immature Gran % (Auto) 0.3 0.2 Neut % (Auto) 49.8 50.3 Lymph % (Auto) 41.7 H 42.1 H Dorado % (Auto) 6.4 5.7 Eos % (Auto) 1.5 1.5 Baso % (Auto) 0.3 0.2 Lymph # (Auto) 6.1 H 5.5 H [place] # (Auto) 0.9 0.8 Eos # (Auto) 0.2 0.2 Baso # (Auto) 0.1 0.0 Abs Immat Gran (auto) 0.05 H 0.03 Absolute Neuts (auto) 7.3 6.6 Absolute Nucleated RBC 0.000 0.000 Nucleated RBC % (auto) 0.0 0.0 Smear Tech's Comments VERIFIED VERIFIED Sodium 138 140 Potassium 4.5 4.1 Chloride 102 104 Carbon Dioxide 27 26 Anion Gap 14 14 BUN 8 L 6 L Creatinine 0.80 0.69 Estim Creat Clear Calc 72.4 84.0 Estimated GFR > 60 > 60 Random Glucose 113 89 Calcium 10.2 9.9 Magnesium 2.3 Total Bilirubin 0.3 Direct Bilirubin 0.1 AST 17 ALT 23 Alkaline Phosphatase 115 Total Protein 7.6 Albumin 4.2 Lipase 9 Blood Type A Positive Antibody Screen NEGATIVE Airway Mallampati Class: II (edentulous) TM Dist: >3cm Neck ROM: Full Loose/Missing/Broken Teeth: Yes, Upper and Lower Heart: RRR Lungs: CTA Assessment and Plan Assessment Anesthesia Assessment: Anesthesia Plan Discussed and Chart Reviewed Final Anesthetic Review Family History of Problems with Anesthesia: No History of Problems with Anesthesia: No NPO: Yes ASA Class: III Final Preanesthetic Review: Meds/Allgs Chart Reviewed, Consent Obtained/Reviewed and Anes Risks/Benef Reviewed Patient Risk: Intermediate Procedure Risk: Intermediate Anesthetic Plan Anesthetic Plan: GA Disposition: Standard PACU
--- NOTE | 2023-11-13 12:21 | P.PNIM_ITS ---
Subjective Subjective Date of Service: 11/13/23 Interval History: anal canal cancer Review of Systems has pain anal /similar incontinent stool . Physical Exam 2 Vital Signs: Vital Signs: Last Vital Signs Temp 98.8 F 11/13/23 09:54 Pulse 67 11/13/23 09:54 Resp 16 11/13/23 09:54 BP 106/62 11/13/23 09:54 Pulse Ox 93 11/13/23 09:54 O2 Del Method Room Air 11/13/23 09:54 BMI result Body Mass Index 24.7 Appearance: Alert.? Oriented X3.? cvs: rrr, [id number] , no murmur res: clear to auscultation ,no rhonchii or wheezing abd: no rebound or guarding ,nt, bs present,rectal pain ext pulses present , no cyanosis . neuro: axo3 , nonfocal. Objective Data Active Medications Acetaminophen (Acetaminophen 325 Mg Tablet) 650 mg PO Q6H PRN PRN Reason: Pain, Mild (Pain Scale 1-3), fever or headache Albuterol/Ipratropium (Albuterol/Iprat 2.5/0.5mg 3 Ml Ampul.Neb) 3 ml INHALE Q4H PRN PRN Reason: Shortness of Breath/Wheezing Albuterol/Ipratropium (Albuterol/Iprat 2.5/0.5mg 3 Ml Ampul.Neb) 3 ml INHALE ONCE PRN PRN Reason: Bronchospasm/wheezing Stop: 11/13/23 15:52 Calcium Carbonate (Calcium Carbonate 750 Mg Tab.Chew) 750 mg PO Q4H PRN PRN Reason: Heartburn Docusate Sodium (Docusate Sodium 100 Mg Capsule) 100 mg PO BID [facility] Last Admin: 11/13/23 10:33 Dose: Not Given Documented By: SOLANGE Non-Admin Reason: Off Unit: Surgery Fentanyl (Fentanyl Citrate/Pf 100 Mcg/2 Ml Vial) 25 mcg IVPUSH Q5M PRN PRN Reason: Pain, Moderate to Severe (Pain Scale 4-10) Stop: 11/13/23 15:52 Ferrous Sulfate (Ferrous Sulfate 324 Mg Tablet.Dr) 324 mg PO BID [facility] Last Admin: 11/13/23 10:33 Dose: Not Given Documented By: SOLANGE Non-Admin Reason: Off Unit: Surgery Fluticasone/Vilanterol (Fluticasone/Vilanterol 100/25 Blst.W.Dev) 1 puff INHALE RDAILY [facility] Last Admin: 11/13/23 07:47 Dose: 1 puff Documented By: HELDER Folic Acid (Folic Acid 1 Mg Tablet) 1 mg PO DAILY [facility] Last Admin: 11/13/23 10:34 Dose: Not Given Documented By: SOLANGE Non-Admin Reason: Off Unit: Surgery Hydrocortisone (Hydrocortisone 2.5 % Rectal Cr 30 Gm Tube) 1 appl [place] DAILY [facility] Last Admin: 11/13/23 10:34 Dose: Not Given Documented By: SOLANGE Non-Admin Reason: Off Unit: Surgery Hydromorphone HCl (Hydromorphone Hcl 0.5 Mg/0.5 Ml Syringe) 0.5 mg IVPUSH Q3H PRN; Protocol PRN Reason: Pain, Severe (Pain Scale 7-10) Last Admin: 11/13/23 04:53 Dose: 0.5 mg Documented By: DEEPAK Lactated Ringer's (Lr) 1,000 mls @ 100 mls/hr IVCONT .Q10H [facility] Last Infusion: 11/13/23 11:41 Dose: 0 mls/hr Documented By: SOLANGE Sodium Chloride (Ns) 1,000 mls @ 100 mls/hr IVCONT .Q10H [facility] Last Admin: 11/13/23 07:43 Dose: Not Given Documented By: SOLANGE Non-Admin Reason: IV Running Lorazepam (Lorazepam 0.5 Mg Tablet) 0.5 mg PO BID [facility] Last Admin: 11/13/23 10:34 Dose: Not Given Documented By: SOLANGE Non-Admin Reason: Off Unit: Surgery Magnesium Hydroxide (Milk Of Magnesia 30 Ml Oral.Susp) 30 ml PO DAILY PRN PRN Reason: Constipation Melatonin (Melatonin 3 Mg Tablet) 6 mg PO BEDTIME PRN PRN Reason: Insomnia Last Admin: 11/12/23 20:37 Dose: 6 mg Documented By: JUAN MANUEL Naloxone HCl (Naloxone Hcl 0.4 Mg/Ml Vial) 0.04 mg IVPUSH Q5M PRN PRN Reason: Excessive sedation or RR < 8 Nicotine (Nicotine 21 Mg Patch.Td24) 21 mg TRANSDERMA DAILY [facility] Last Admin: 11/13/23 10:34 Dose: Not Given Documented By: SOLANGE Non-Admin Reason: Off Unit: Surgery Nicotine (Nicotine 21 Mg Patch.Td24) 21 mg TRANSDERMA DAILY [facility] Last Admin: 11/13/23 10:34 Dose: Not Given Documented By: SOLANGE Non-Admin Reason: Off Unit: Surgery Ondansetron HCl (Ondansetron Hcl 4 Mg/2 Ml Vial) 4 mg IVPUSH ONCE PRN PRN Reason: Nausea and Vomiting Stop: 11/13/23 15:52 Oxycodone HCl (Oxycodone Hcl Immed Release 5 Mg Tablet) 10 mg PO Q4H PRN PRN Reason: pain (scale score 7-10) Last Admin: 11/12/23 17:29 Dose: 10 mg Documented By: MADISON Oxycodone HCl (Oxycodone Hcl Er 10 Mg Tab.Er.12h) 20 mg PO BID [facility] Last Admin: 11/13/23 10:34 Dose: Not Given Documented By: SOLANGE Non-Admin Reason: Off Unit: Surgery Oxycodone HCl (Oxycodone Hcl Immed Release 5 Mg Tablet) 5 mg PO ONCE PRN PRN Reason: Pain, Moderate(Pain Scale 4-6) if no IV Access Stop: 11/13/23 15:52 Risperidone (Risperidone 2 Mg Tablet) 4 mg PO BEDTIME [facility] Last Admin: 11/12/23 20:36 Dose: 4 mg Documented By: JUAN MANUEL Risperidone (Risperidone 1 Mg Tablet) 1 mg PO BID [facility] Last Admin: 11/13/23 10:34 Dose: Not Given Documented By: SOLANGE Non-Luis Reason: Off Unit: Surgery Sodium Chloride (0.9 % Sodium Chloride Flush 3 Ml Syringe) 3 ml IVFLUSH QSHIFT [facility] Last Admin: 11/13/23 07:43 Dose: Not Given Documented By: SOLANGE Non-Luis Reason: IV Running Labs 11/12/23 05:08 11/12/23 05:08 Labs: Laboratory Results - last 24 hr 11/13/23 07:54 Blood Type A Positive Antibody Screen NEGATIVE Assessment and Plan (1) Urinary retention: Status: Acute (2) Squamous cell carcinoma of anal canal: Status: Acute Plan 52-year-old female with history of schizophrenia, anxiety/depression, metastatic cancer likely anal in origin and mild persistent asthma who is deaf and requires ASL interpretation presents to the ED earlier today accompanied by mental health worker from [facility], [place], for evaluation of obstipation. ASL interpretor Dorie [phone] assisted with sign language interpretation. She will be admitted for further management of obstipation due to bowel obstruction secondary to anal malignancy. Obstipation due to bowel obstruction secondary metastatic anal malignancy -MRI of the pelvis showed findings most consistent with malignancy centered in the anal canal/lower rectum, possibly anal in origin, though origin evaluation is limited due to size of the lesion. There is also invasion of several structures in the pelvis including anal sphincters, pelvic floor musculature, ischioanal fossa, presacral space, vagina and possibly right cervix with suspicious lymph nodes noted at multiple calista stations including inguinal, iliac, mesorectal and CHAYO territories. -Clear liquids for now. NPO after midnight. Continue LR oncology and General surgery consult-? possible diverting colostomy -Oncology consult -pain management prn Chronic leukocytosis -due to malignancy, not infectious Hypotension/soft BPs -r/t malignancy, no sepsis -can consider midodrine if continues Chronic microcytic anemia -no overt bleeding, above transfusion threshold -follow schizophrenia/mood disorder -continue home medications mild persistent asthma -no exacerbation -continue Flovent, albuterol p.r.n. urinary retention: pvr's with stright cath prn DVT prophylaxis-give one dose heparin now, resume post operatively Full code ongoing hospitlisation need for management of obstipation due to bowel obstruction r/t anal malignancy requiring expert consultation and possible diverting colonocopy Quality Stroke Does the patient have a stroke diagnosis?: No VTE Prior VTE?: No VTE Risk Level:: Medical - moderate - high VTE Device Contraindication: Treatment Not Indicated VTE Drug Contraindication: N/A - Med Ordered
--- NOTE | 2023-11-13 12:55 | P.OP_ITS ---
Operative Note Operative Note Date of Service: 11/13/23 Narrative: Preop diagnosis: Large squamous cell carcinoma of the anal canal with impending obstruction Postop diagnosis: The same Procedure: Hand assisted laparoscopic sigmoid loop colostomy Surgeon: Paul Pelayo MD assistant teaching professor: Attila ASCENCIO student The patient is a 52-year-old female with a large bulky and advanced squamous cell carcinoma of the anal canal extending to the rectum, with impending obstruction. She has had no significant bowel movement for over a week except for liquid stools. Her CAT scan suggested the colon to have a very high fecal load. Her colonoscopy showed this cancer in the anal canal extending to the rectosigmoid, with no visible lumen . She was therefore referred to me for colostomy was diversion in view of impending obstruction. She describes some abdominal pain She understood the technique of the planned procedure as well as the risks, benefits, and alternatives. She was brought to the operating room. She was placed in modified lithotomy position under general anesthesia via endotracheal tube. The abdomen and the perineum were prepped and draped in the usual sterile fashion. A surgical time- out was done. The patient received Cefotan 2 g IV preoperatively Examination of the anal canal showed this large, fungating mass in the right perianal area extending into the entire anal canal, bulky, and friable consistent with her diagnosis of squamous anal canal carcinoma. After prepping and draping, I made a short incision on the midline in the infraumbilical area blade the blade 15. This carried down through the full- thickness of the skin subcutaneous fat with electrocautery. The midline fascia was visualized. This was incised and the peritoneum was entered. We positioned the Raj wound retractor. We insufflated through a port through the GelPort w hich was attached with the wound retractor. The laparoscope was placed. We used a 10 mm 30 degree scope. With laparoscopic visualization and inserted a 5/12 mm port in the epigastric area in the midline. We moved the the camera into this port. I inserted another 5/12 mm port in the right lower quadrant through a small stab incision. I inserted my hand into the GelPort. Patient was placed in a steep head-down [id number] position. I could directly visualize the sigmoid all the way to the left colon. I mobilized the sigmoid by dividing attachments to the left pelvic sidewall using the LigaSure. I mobilized the distal left colon as well by dividing the ligamentous attachments along the white line of Toldt. I was able to visualize the distal sigmoid as well. I could feel some i nduration in the distal rectum. There was some free fluid in the pelvis The left colon actually did not appear markedly distended. There was note of large amounts of stool in the cecum and the right colon I examined the mobilized sigmoid and continued to divide other ligamentous attachments and adhesions. Appeared that we had adequately mobilize the sigmoid to allow us to bring this up as a loop colostomy. I decided on a loop colostomy to allow drainage of the efferent limb in case that there was appropriate obstruction of the rectum from the large tumor. I removed the GelPort. I excised the discoid piece of skin using a knife on the right lower quadrant that was earlier marked. I carried down the dissection through the full-thickness of the skin and subcutaneous fat until the anterior rectus sheath was visualized. I incised the anterior rectus sheath. I did dissection with muscle-splitting of the rectus muscle and incised the posterior rectus sheath. I dilated this stoma opening with 3 fingers. I then applied a [place] drain through a small mesenteric defect in the sigmoid. This drain was pulled through the stoma opening and this pulled the sigmoid loop with this. I replaced the drain with a stoma bridge. This segment was viable and did not appear to be under tension. I then closed the fascia midline incision with a running Maxon 1 stitch. I examined laparoscopically. There were no bowel loops by the midline closure. There was no twisting of the loop colostomy and this segment appeared viable There was no evidence of any bowel injury or any bleeding. I therefore removed the ports and irrigated all incisions. I closed the skin with skin aixa I matured the stoma by incising the anterior wall with electrocautery. I entered the lumen. I secured the anterior wall to the subdermal layer circumferentially on the stomal incision with Polysorb 3-0 simple interrupted sutures. I then digitized the efferent and afferent limbs and this both appeared to be patent past the fascial level I infiltrated all incisions with skin 0.5% for postop analgesia. A stoma appliance and dressings were applied. The procedure was completed The patient tolerated the procedure well. There were no immediate complications. Initial final counts of sponges and instruments were correct. Estimated blood loss was about 25 cc The patient was extubated without difficulty and transferred to the recovery room with stable vital signs.
[2023-11-13] MEDS: fentaNYL citrate/PF 100 MCG/2 ML VIAL 25 MCG IVPUSH ×2 (13:16→13:27)
[2023-11-13] MEDS: Acetaminophen 1,000 MG/100 ML PIGGYBACK 400 MG IV ×2 (13:28→19:27)
[2023-11-13] MEDS: 0.9 % Sodium Chloride Flush 3 ML SYRINGE IVFLUSH (14:55)
[2023-11-13] MEDS: 0.9 % Sodium Chloride 1,000 ML 100 ML IVCONT (15:42)
--- NOTE | 2023-11-13 17:07 | P.EN_ITS ---
Event Note Date of Service: 11/14/23 Event Note: Seen postop She seems comfortable Says she has good pain control Stable vital signs Abdomen soft Stoma viable looking, no output yet Continue pain management telephoto engineer used Time Spent With Patient Time: Total time managing care of this patient today ____ minutes.
[2023-11-13] MEDS: LORazepam 0.5 MG TABLET PO (19:30)
[2023-11-13] MEDS: risperiDONE 2 MG TABLET 4 MG PO (20:09)
[2023-11-13] MEDS: Ferrous Sulfate 324 MG TABLET.DR PO (20:09)
[2023-11-13] MEDS: Docusate Sodium 100 MG CAPSULE PO (20:09)
[2023-11-13] MEDS: risperiDONE 1 MG TABLET PO (20:09)
[2023-11-13] MEDS: oxyCODONE HCl ER 10 MG TAB.ER.12H 20 MG PO (20:09)
[2023-11-13] MEDS: Melatonin 3 MG TABLET 6 MG PO (21:25)
[2023-11-14] VITALS (8 sets, daily range): BP systolic 104–112; BP diastolic 55–68; PULSE 67–76; RESP 16–18; TEMP 36.1–36.3; O2SAT 93–98
[2023-11-14] MEDS: Acetaminophen 1,000 MG/100 ML PIGGYBACK 400 MG IV ×2 (01:42→08:28)
[2023-11-14] MEDS: 0.9 % Sodium Chloride 1,000 ML 100 ML IVCONT (02:23)
[2023-11-14] MEDS: HYDROmorphone HCl 0.5 MG/0.5 ML SYRINGE IVPUSH ×2 (03:28→07:06)
--- NOTE | 2023-11-14 07:00 | HO.STUDENTPN ---
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 She reports 11/19 abdominal pain but states that is it improved from yesterday. States that her appetite is mild and that she is otherwise comfortable, denying chest pain or shortness of breath, <Felicity ParsonsBrien - Last Filed: 11/14/23 07:05> Review of Systems has pain anal /similar incontinent stool . <Felicity Davies - Last Filed: 11/14/23 07:05> Constitutional Constitutional: Reports as per HPI and Reports no additional constitutional complaints <Felicity ParsonsBrien - Last Filed: 11/14/23 07:05> Eyes Eyes: Reports no additional eye complaints <Felicity ParsonsBrien - Last Filed: 11/14/23 07:05> ENT Ears, Nose, Mouth, and Throat: Reports system reviewed and no additional complaints, except as documented <Felicity ParsonsBrien - Last Filed: 11/14/23 07:05> Cardiovascular Cardiovascular: Reports no additional cardiovascular complaints <Felicity ParsonsBrien - Last Filed: 11/14/23 07:05> Respiratory Respiratory: Reports no additional respiratory complaints <Felicity Smithshire - Last Filed: 11/14/23 07:05> Gastrointestinal Gastrointestinal: Reports no additional gastrointestinal complaints <Felicity ParsonsBrien - Last Filed: 11/14/23 07:05> Musculoskeletal Musculoskeletal: Reports no additional musculoskeletal complaints <Felicity ParsonsBrien - Last Filed: 11/14/23 07:05> Integumentary/Breasts Skin/Breast: Reports no additional skin complaints <Felicity ParsonsBrien - Last Filed: 11/14/23 07:05> Neurologic Neurologic: Reports system reviewed and no additional complaints, except as documented <Felicity ParsonsBrien - Last Filed: 11/14/23 07:05> Psychiatric Psychiatric: Reports no additional psychiatric complaints <Felicity ParsonsBrien - Last Filed: 11/14/23 07:05> Endocrine Endocrine: Reports no additional endocrine complaints <[facility] - Last Filed: 11/14/23 07:05> Hematologic/Lymphatic Hematologic/Lymphatic: Reports no additional hematologic/lymphatic complaints <[facility] - Last Filed: 11/14/23 07:05> Allergic/Immunologic Allergic/Immunologic: Reports no additional allergic/immunologic complaints <[facility] - Last Filed: 11/14/23 07:05> Physical Exam Vital Signs: Vital Signs: Last Vital Signs Temp 97.1 F 11/14/23 02:47 Pulse 71 11/14/23 02:47 Resp 17 11/14/23 02:47 BP 109/68 11/14/23 02:47 Pulse Ox 96 11/14/23 05:40 O2 Del Method Room Air 11/14/23 05:40 O2 Flow Rate 1 11/14/23 02:47 BMI result Body Mass Index 24.7 <[facility] - Last Filed: 11/14/23 07:05> Const: Other: Frail looking but not in any distress <[facility] - Last Filed: 11/14/23 07:05> General: cooperative, comfortable and no acute distress <[facility] - Last Filed: 11/14/23 07:05> Orientation/consciousness: patient oriented x3 <[facility] - Last Filed: 11/14/23 07:05> Limitations: no limitations and language barrier <[facility] - Last Filed: 11/14/23 07:05> HEENT: Head: Yes normal to inspection, Yes normocephalic and Yes atraumatic <Felicity Smithshire - Last Filed: 11/14/23 07:05> Ears: hearing grossly normal bilaterally <[facility] - Last Filed: 11/14/23 07:05> General nose exam: Normal external nose present <[facility] - Last Filed: 11/14/23 07:05> Face and sinus: Yes normal facial exam <[facility] - Last Filed: 11/14/23 07:05> Mouth: Normal oral and palatal mucosa present, oropharynx normal and moist mucous membranes <Felicity Smithshire - Last Filed: 11/14/23 07:05> Throat: Yes posterior oropharynx normal <Felicity Smithshire - Last Filed: 11/14/23 07:05> Eyes: General: appearance normal, both eyes and all related structures <Felicity Smithshire - Last Filed: 11/14/23 07:05> Alignment and Position: alignment normal <Felicity Smithshire - Last Filed: 11/14/23 07:05> Eyelids: Yes eyelids normal <Felicity Smithshire - Last Filed: 11/14/23 07:05> Conjunctivae: conjunctivae normal <Felicity Smithshire - Last Filed: 11/14/23 07:05> Sclerae: sclerae normal <Felicity Smithshire - Last Filed: 11/14/23 07:05> Pupils: Equal, round and reactive pupils present and Pupils normal by confrontation <Felicity Smithshire - Last Filed: 11/14/23 07:05> EOM: EOMs intact bilaterally <Felicity Smithshire - Last Filed: 11/14/23 07:05> Neck: Neck: Yes normal visual inspection, Yes full ROM and Yes no lymphadenopathy <Felicity Smithshire - Last Filed: 11/14/23 07:05> Lymphatic: no lymphadenopathy noted <Felicity Smithshire - Last Filed: 11/14/23 07:05> Chest: Chest palpation & inspection: normal inspection of the chest <Felicity Smithshire - Last Filed: 11/14/23 07:05> Resp: Effort & Inspection: normal respiratory effort and able to speak in complete sentences <Felicity Smithshire - Last Filed: 11/14/23 07:05> Auscultation: clear to auscultation bilaterally, no crackles, no rales, no rhonchi and no wheezes <[facility] - Last Filed: 11/14/23 07:05> Cardio: Rate: regular rate <Felicity Smithshire - Last Filed: 11/14/23 07:05> Rhythm: regular rhythm <Felicity Smithshire - Last Filed: 11/14/23 07:05> Heart sounds: S1 normal heart sound present and S2 normal heart sound present <[facility] Last Filed: 11/14/23 07:05> GI: Other: Mild diffuse tenderness, diverting colostomy in place with bridging clip and colostomy bag. Bandages covering laparoscopic ports and bulky abdominal dressing covering midline incision. There is no surrounding swelling or erythema. <[facility] - Last Filed: 11/14/23 07:05> Inspection: Yes normal to inspection <[facility] - Last Filed: 11/14/23 07:05> Palpation (GI): Soft to palpation, not firm, Tenderness to palpation present (GI) (Mild diffuse tenderness) and no guarding <[facility] - Last Filed: 11/14/23 07:05> Skin: General skin exam: no rashes or lesions noted <[facility] - Last Filed: 11/14/23 07:05> Trauma: no lacerations or abrasions <[facility] Last Filed: 11/14/23 07:05> Wounds: no wounds <[facility] - Last Filed: 11/14/23 07:05> Neuro: General: patient oriented x3 and moves all extremities <[facility] - Last Filed: 11/14/23 07:05> Cranial nerves: Yes Equal, round and reactive pupils present <[facility] - Last Filed: 11/14/23 07:05> Extrem: General: Yes normal to inspection <[facility] - Last Filed: 11/14/23 07:05> Right upper extremity: normal to inspection <[facility] - Last Filed: 11/14/23 07:05> Left upper extremity: normal to inspection <[facility] - Last Filed: 11/14/23 07:05> Right lower extremity: normal to inspection <[facility] - Last Filed: 11/14/23 07:05> Left lower extremity: normal to inspection <[facility] - Last Filed: 11/14/23 07:05> Objective Data Active Medications Acetaminophen (Acetaminophen 325 Mg Tablet) 650 mg PO Q6H PRN PRN Reason: Pain, Mild (Pain Scale 1-3), fever or headache Albuterol/Ipratropium (Albuterol/Iprat 2.5/0.5mg 3 Ml Ampul.Neb) 3 ml INHALE Q4H PRN PRN Reason: Shortness of Breath/Wheezing Calcium Carbonate (Calcium Carbonate 750 Mg Tab.Chew) 750 mg PO Q4H PRN PRN Reason: Heartburn Docusate Sodium (Docusate Sodium 100 Mg Capsule) 100 mg PO BID [facility] Last Admin: 11/13/23 20:09 Dose: 100 mg Documented By: SCOTT Ferrous Sulfate (Ferrous Sulfate 324 Mg Tablet.Dr) 324 mg PO BID [facility] Last Admin: 11/13/23 20:09 Dose: 324 mg Documented By: SCOTT Fluticasone/Vilanterol (Fluticasone/Vilanterol 100/25 Blst.W.Dev) 1 puff INHALE RDAILY [facility] Last Admin: 11/13/23 07:47 Dose: 1 puff Documented By: HELDER Folic Acid (Folic Acid 1 Mg Tablet) 1 mg PO DAILY [facility] Last Admin: 11/13/23 10:34 Dose: Not Given Documented By: SOLANGE Non-Admin Reason: Off Unit: Surgery Hydrocortisone (Hydrocortisone 2.5 % Rectal Cr 30 Gm Tube) [address] DAILY [facility] Last Admin: 11/13/23 10:34 Dose: Not Given Documented By: SOLANGE Non-Admin Reason: Off Unit: Surgery Hydromorphone HCl (Hydromorphone Hcl 0.5 Mg/0.5 Ml Syringe) 0.5 mg IVPUSH Q3H PRN; Protocol PRN Reason: Pain, Severe (Pain Scale 7-10) Last Admin: 11/14/23 03:28 Dose: 0.5 mg Documented By: SCOTT Sodium Chloride (Ns) 1,000 mls @ 100 mls/hr IVCONT .Q10H [facility] Last Admin: 11/14/23 02:23 Dose: 100 mls/hr Documented By: SCOTT Acetaminophen (Ofirmev) 1,000 mg in 100 mls @ 400 mls/hr IV Q6H [facility] Stop: 11/14/23 07:29 Last Infusion: 11/14/23 02:01 Dose: Infused Documented By: SCOTT Lorazepam (Lorazepam 0.5 Mg Tablet) 0.5 mg PO BID [facility] Last Admin: 11/13/23 20:12 Dose: Not Given Documented By: SCOTT Non-Admin Reason: patient was given one time dose @ 1930 Magnesium Hydroxide (Milk Of Magnesia 30 Ml Oral.Susp) 30 ml PO DAILY PRN PRN Reason: Constipation Melatonin (Melatonin 3 Mg Tablet) 6 mg PO BEDTIME PRN PRN Reason: Insomnia Last Admin: 11/13/23 21:25 Dose: 6 mg Documented By: SCOTT Morphine Sulfate (Morphine Sulfate 2 Mg/Ml Cartridge) 2 mg IVPUSH Q3H PRN; Protocol PRN Reason: Pain, Severe (Pain Scale 7-10) Naloxone HCl (Naloxone Hcl 0.4 Mg/Ml Vial) 0.04 mg IVPUSH Q5M PRN PRN Reason: Excessive sedation or RR < 8 Nicotine (Nicotine 21 Mg Patch.Td24) 21 mg TRANSDERMA DAILY [facility] Last Admin: 11/13/23 10:34 Dose: Not Given Documented By: SOLANGE Non-Admin Reason: Off Unit: Surgery Nicotine (Nicotine 21 Mg Patch.Td24) 21 mg TRANSDERMA DAILY [facility] Last Admin: 11/13/23 10:34 Dose: Not Given Documented By: SOLANGE Non-Admin Reason: Off Unit: Surgery Oxycodone HCl (Oxycodone Hcl Immed Release 5 Mg Tablet) 10 mg PO Q4H PRN PRN Reason: pain (scale score 7-10) Last Admin: 11/12/23 17:29 Dose: 10 mg Documented By: MADISON Oxycodone HCl (Oxycodone Hcl Er 10 Mg Tab.Er.12h) 20 mg PO BID [facility] Last Admin: 11/13/23 20:09 Dose: 20 mg Documented By: SCOTT Risperidone (Risperidone 2 Mg Tablet) 4 mg PO BEDTIME [facility] Last Admin: 11/13/23 20:09 Dose: 4 mg Documented By: SCOTT Risperidone (Risperidone 1 Mg Tablet) 1 mg PO BID [facility] Last Admin: 11/13/23 20:09 Dose: 1 mg Documented By: SCOTT Sodium Chloride (0.9 % Sodium Chloride Flush 3 Ml Syringe) 3 ml IVFLUSH QSHIFT [facility] Last Admin: 11/13/23 23:44 Dose: Not Given Documented By: SCOTT Non-Admin Reason: IV Running <Felicity Davies - Last Filed: 11/14/23 07:05> Labs CBC & Chem 7: 11/12/23 05:08 11/12/23 05:08 <Felicity Davies - Last Filed: 11/14/23 07:05> Labs: Laboratory Results - last 24 hr 11/13/23 07:54 Blood Type A Positive Antibody Screen NEGATIVE <Felicity Davies - Last Filed: 11/14/23 07:05> Assessment and Plan (1) Squamous cell carcinoma of anal canal: Status: Acute <Felicity Davies - Last Filed: 11/14/23 07:05> Assessment and Plan: Yanna is a 52 year old female POD1 for diverting colostomy secondary to 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 Has a large bulky tumor extending from the anus to the rectosigmoid Proceeding with diverting stoma in view of impending complete obstruction, now reports continued 10/10 pain, states that it is improved from yesterday. Anticipate wound dressing changes and maintenance of colostomy. Exam benign at this time. Colostomy with dark brown liquid output. No surround erythema or swelling to incision sites. <Felicity Davies - Last Filed: 11/14/23 07:05> Assessment and Plan: Status post diverting loop sigmoid colostomy No events reported overnight Describes pain appropriate to postop course Stoma with stool output Tolerating diet Rest of management as per the hospitalist service Pain control Seen and examined independently <Paul Pelayo MD - Last Filed: 11/14/23 08:19> Quality Stroke Does the patient have a stroke diagnosis?: No <Felicity Davies - Last Filed: 11/14/23 07:05> VTE Prior VTE?: No <Felicity Davies - Last Filed: 11/14/23 07:05> VTE Risk Level:: Medical - moderate - high <Felicity Davies - Last Filed: 11/14/23 07:05> VTE Device Contraindication: Treatment Not Indicated <Felicity Davies - Last Filed: 11/14/23 07:05> VTE Drug Contraindication: N/A - Med Ordered <Felicity Davies - Mike Filed: 11/14/23 07:05>
--- NOTE | 2023-11-14 07:59 | HO.POSTANES ---
Post Anesthesia Evaluation Post Anesthesia Evaluation Date of Service: 11/14/23 Vital Signs: Vital Signs Temp Pulse Resp BP Pulse Ox O2 Del Method O2 Flow Rate 11/14/23 07:38 97.4 F 67 18 112/60 93 Room Air 11/14/23 05:40 96 Room Air 11/14/23 02:47 97.1 F 71 17 109/68 98 Nasal Cannula 1 11/14/23 00:20 17 98 Nasal Cannula 2 Anesthesia: General Endotracheal-GETA Mental Status: Awake Nausea/Vomiting: Mild Hydration: Adequate Anesthesia-Related Issues: No Anes. Related Issues Comments: Reports 11/19 pain. Care per primary team. Anesthesia team to follow-up as necessary.
[2023-11-14 08:19] LABS: Hemoglobin 9.7 g/dl (12.0-16.0)
[2023-11-14] MEDS: Docusate Sodium 100 MG CAPSULE PO ×2 (08:28→20:57)
[2023-11-14] MEDS: oxyCODONE HCl ER 10 MG TAB.ER.12H 20 MG PO ×2 (08:28→20:56)
[2023-11-14] MEDS: risperiDONE 1 MG TABLET PO ×2 (08:28→20:57)
[2023-11-14] MEDS: Folic Acid 1 MG TABLET PO (08:28)
[2023-11-14] MEDS: LORazepam 0.5 MG TABLET PO ×2 (08:28→20:56)
[2023-11-14] MEDS: Ferrous Sulfate 324 MG TABLET.DR PO ×2 (08:28→20:57)
[2023-11-14] MEDS: Nicotine 21 MG PATCH.TD24 TRANSDERMA (08:30)
[2023-11-14 08:37] LABS: Anion Gap 13 (12-20); Blood Urea Nitrogen 7 mg/dL (9-16); Carbon Dioxide 26 mmol/L (22-29); Chloride 106 mmol/L (96-108); Creatinine Clr Calc Pharmacy 87.8; Estimated Glomerular Filt Rate > 60; Glucose Random 95 mg/dL (60-115); Potassium 3.7 mmol/L (3.3-5.1); Sodium 141 mmol/L (135-145)
--- NOTE | 2023-11-14 09:15 | MHC.CLN ---
F/U S/P COLOSTOMY SURGERY. DIET=REGULAR. APPEARS TO BE TOLERATING CURRENT DIET. CONTINUE TO FOLLOW FOR DIET TOLERANCE AND PO INTAKE.
[2023-11-14] MEDS: oxyCODONE HCl Immed Release 5 MG TABLET 10 MG PO ×3 (09:49→19:31)
[2023-11-14] MEDS: Morphine Sulfate 2 MG/ML CARTRIDGE IVPUSH (13:15)
--- NOTE | 2023-11-14 14:45 | MHC.CM.PN ---
PER ROUNDS PT NOT MEDICALLY READY FOR DC PLAN REMAINS TBD
--- NOTE | 2023-11-14 14:54 | HO.PM.IMPN ---
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 Oriented X3.? cvs: rrr, [id number] . res: clear to auscultation ,no rhonchii or wheezing abd: soft ,rectal pain ext pulses present , no cyanosis . neuro: axo3 , nonfocal. Objective Data Active Medications Acetaminophen (Acetaminophen 325 Mg Tablet) 650 mg PO Q6H PRN PRN Reason: Pain, Mild (Pain Scale 1-3), fever or headache Albuterol/Ipratropium (Albuterol/Iprat 2.5/0.5mg 3 Ml Ampul.Neb) 3 ml INHALE Q4H PRN PRN Reason: Shortness of Breath/Wheezing Calcium Carbonate (Calcium Carbonate 750 Mg Tab.Chew) 750 mg PO Q4H PRN PRN Reason: Heartburn Docusate Sodium (Docusate Sodium 100 Mg Capsule) 100 mg PO BID [facility] Last Admin: 11/14/23 08:28 Dose: 100 mg Documented By: SOLANGE Ferrous Sulfate (Ferrous Sulfate 324 Mg Tablet.Dr) 324 mg PO BID [facility] Last Admin: 11/14/23 08:28 Dose: 324 mg Documented By: SOLANGE Fluticasone/Vilanterol (Fluticasone/Vilanterol 100/25 Blst.W.Dev) 1 puff INHALE RDAILY [facility] Last Admin: 11/14/23 07:44 Dose: Not Given Documented By: VALENTE Non-Admin Reason: Med Not Available Folic Acid (Folic Acid 1 Mg Tablet) 1 mg PO DAILY [facility] Last Admin: 11/14/23 08:28 Dose: 1 mg Documented By: SOLANGE Hydrocortisone (Hydrocortisone 2.5 % Rectal Cr 30 Gm Tube) 1 appl OR DAILY [facility] Last Admin: 11/14/23 09:52 Dose: Not Given Documented By: SOLANGE Non-Admin Reason: Med Not Available Hydromorphone HCl (Hydromorphone Hcl 0.5 Mg/0.5 Ml Syringe) 1 mg IVPUSH Q4H PRN; Protocol PRN Reason: Pain, Severe (Pain Scale 7-10) Lorazepam (Lorazepam 0.5 Mg Tablet) 0.5 mg PO BID [facility] Last Admin: 11/14/23 08:28 Dose: 0.5 mg Documented By: SOLANGE Magnesium Hydroxide (Milk Of Magnesia 30 Ml Oral.Susp) 30 ml PO DAILY PRN PRN Reason: Constipation Melatonin (Melatonin 3 Mg Tablet) 6 mg PO BEDTIME PRN PRN Reason: Insomnia Last Admin: 11/13/23 21:25 Dose: 6 mg Documented By: SCOTT Morphine Sulfate (Morphine Sulfate 2 Mg/Ml Cartridge) 2 mg IVPUSH Q3H PRN; Protocol PRN Reason: Pain, Severe (Pain Scale 7-10) Last Admin: 11/14/23 13:15 Dose: 2 mg Documented By: DURGA Naloxone HCl (Naloxone Hcl 0.4 Mg/Ml Vial) 0.04 mg IVPUSH Q5M PRN PRN Reason: Excessive sedation or RR < 8 Nicotine (Nicotine 21 Mg Patch.Td24) 21 mg TRANSDERMA DAILY [facility] Last Admin: 11/14/23 08:30 Dose: 21 mg Documented By: SOLANGE Nicotine (Nicotine 21 Mg Patch.Td24) 21 mg TRANSDERMA DAILY [facility] Last Admin: 11/14/23 08:35 Dose: Not Given Documented By: SOLANGE Non-Admin Reason: Duplicate Order Oxycodone HCl (Oxycodone Hcl Immed Release 5 Mg Tablet) 10 mg PO Q4H PRN PRN Reason: pain (scale score 7-10) Last Admin: 11/14/23 09:49 Dose: 10 mg Documented By: SOLANGE Oxycodone HCl (Oxycodone Hcl Er 10 Mg Tab.Er.12h) 20 mg PO BID [facility] Last Admin: 11/14/23 08:28 Dose: 20 mg Documented By: SOLANGE Risperidone (Risperidone 2 Mg Tablet) 4 mg PO BEDTIME [facility] Last Admin: 11/13/23 20:09 Dose: 4 mg Documented By: SCOTT Risperidone (Risperidone 1 Mg Tablet) 1 mg PO BID [facility] Last Admin: 11/14/23 08:28 Dose: 1 mg Documented By: SOLANGE Sodium Chloride (0.9 % Sodium Chloride Flush 3 Ml Syringe) 3 ml IVFLUSH QSHIFT [facility] Last Admin: 11/14/23 08:35 Dose: Not Given Documented By: SOLANGE Non-Admin Reason: IV Running Labs 11/14/23 07:45 11/14/23 07:45 Labs: Laboratory Results - last 24 hr 11/14/23 07:45 Anion Gap 13 Estim Creat Clear Calc 87.8 Estimated GFR > 60 Random Glucose 95 Calcium 9.0 D Assessment and Plan (1) Squamous cell carcinoma of anal canal: Status: Acute Plan 52-year-old female with history of schizophrenia, anxiety/depression, metastatic cancer likely anal in origin and mild persistent asthma who is deaf and requires ASL interpretation presents to the ED earlier today [facility] for [facility] of obstipation. ASL interpretor Dorie [id number] assisted with sign language interpretation. She will be admitted for further management of obstipation due to bowel obstruction secondary to anal malignancy. Obstipation due to bowel obstruction secondary metastatic anal malignancy -MRI of the pelvis showed findings most consistent with malignancy centered in the anal canal/lower rectum, possibly anal in origin, though origin evaluation is limited due to size of the lesion. There is also invasion of several structures in the pelvis including anal sphincters, pelvic floor musculature, ischioanal fossa, presacral space, vagina and possibly right cervix with suspicious lymph nodes noted at multiple calista stations including inguinal, iliac, mesorectal and CHAYO territories. oncology and General surgery consult-s/p diverting colostomy still has pain Oncology consult-pet scan next week,plan for chemo after that plan: pain management prn Chronic leukocytosis -due to malignancy, not infectious Hypotension/soft BPs -r/t malignancy, no sepsis -can consider midodrine if continues Chronic microcytic anemia -no overt bleeding, above transfusion threshold -follow schizophrenia/mood disorder -continue home medications mild persistent asthma -no exacerbation -continue Flovent, albuterol p.r.n. urinary retention: pvr's with stright cath prn DVT prophylaxis-give one dose heparin now, resume post operatively Full code ongoing hospitlisation need for management of obstipation due to bowel obstruction r/t anal malignancy requiring expert consultation and possible diverting colonocopy Quality Stroke Does the patient have a stroke diagnosis?: No VTE Prior VTE?: No VTE Risk Level:: Medical - moderate - high VTE Device Contraindication: Treatment Not Indicated VTE Drug Contraindication: N/A - Med Ordered
[2023-11-14] MEDS: Heparin Sodium,Porcine 5,000 UNIT/ML VIAL 5000 UNIT SUBCUT (15:22)
--- NOTE | 2023-11-14 15:42 | HO.OSTOMY ---
Ostomy Consult: Initial Teaching 52yr old female [place] [facility] [place] see H&P for detailed history and admission.? Consult for new ostomy teaching. ?She had an Loop Colostomy creation on 11/13/[address] Pelayo. ?Upon entry into patient's room, she is lying in her bed, she is alert and oriented x 3, she currently has no complaints. She is deaf and uses [employer] - Video health safety manager used throughout entire teaching. ?Introductions were completed, she is agreeable to continuing with teaching. ? We discussed her pain control at 5/10 at the current moment, she reports she has not yet ambulated the unit. ?We began by discussing general knowledge about the Colostomy and questions she had. ?We discussed opening and closing the ostomy pouch. She was able to independently provide a return demonstration on an empty pouch. ?She had not yet emptied her pouch so I performed this and she observed.? We discussed the importance of emptying pouch when 1/3 to 1/2 full, how to empty pouch, and lining water with toilet paper to prevent splash back. With an empty Coloplast pouch she performed a second demonstration. She was also educated on when to contact concrete stone fabricator/Dr Pelayo's office/seek emergency medical treatment. Aware that Rx written for pouches and rings will be sent by Outpt nurse to [place] for home delivery.? Reviewed written education with patient and left at bedside for further review. ?She did not watch the education videos supplied by [facility], but understanding where to find the videos should she want to watch. Permission was granted for pouch assessment and no leak was noted.? Stoma is red and appears viable through pouch with clear bridge in place.? She requests to not have continued teaching at this time. She defers to learning about a pouch change in the future, she reported having no questions at this time. ?Patient was made aware that I will return to bedside early next week for ongoing education. She will benefit from VNA services at time of discharge. ?All questions and concerns addressed at this time. Next teaching session goals: Demonstrate open and close independently
[2023-11-14] MEDS: HYDROmorphone HCl 0.5 MG/0.5 ML SYRINGE 1 MG IVPUSH (17:52)
[2023-11-14] MEDS: risperiDONE 2 MG TABLET 4 MG PO (20:56)
[2023-11-14] MEDS: 0.9 % Sodium Chloride Flush 3 ML SYRINGE IVFLUSH (20:57)
[2023-11-14] MEDS: Melatonin 3 MG TABLET 6 MG PO (22:12)
[2023-11-15] MEDS: Heparin Sodium,Porcine 5,000 UNIT/ML VIAL 5000 UNIT SUBCUT ×2 (03:28→14:30)
[2023-11-15] MEDS: Morphine Sulfate 2 MG/ML CARTRIDGE IVPUSH ×4 (03:41→18:41)
[2023-11-15 03:46] VITALS: BP 111/58; PULSE 79; RESP 16; TEMP 36.7; O2SAT 94
[2023-11-15 07:14] VITALS: BP 104/58; PULSE 71; RESP 16; TEMP 36.9; O2SAT 94
[2023-11-15 07:19] VITALS: BP 133/70; PULSE 74; RESP 20; TEMP 36.9; O2SAT 94
[2023-11-15 08:00] VITALS: BP 133/70; PULSE 74; RESP 16; TEMP 36.7; O2SAT 94
[2023-11-15] MEDS: 0.9 % Sodium Chloride Flush 3 ML SYRINGE IVFLUSH ×3 (08:46→20:35)
[2023-11-15] MEDS: oxyCODONE HCl ER 10 MG TAB.ER.12H 20 MG PO ×2 (08:48→20:34)
[2023-11-15] MEDS: Nicotine 21 MG PATCH.TD24 TRANSDERMA (08:48)
[2023-11-15] MEDS: Docusate Sodium 100 MG CAPSULE PO ×2 (08:48→20:35)
[2023-11-15] MEDS: LORazepam 0.5 MG TABLET PO ×2 (08:49→20:35)
[2023-11-15] MEDS: risperiDONE 1 MG TABLET PO ×2 (08:49→20:35)
[2023-11-15] MEDS: Ferrous Sulfate 324 MG TABLET.DR PO ×2 (08:49→20:35)
[2023-11-15] MEDS: Folic Acid 1 MG TABLET PO (08:49)
--- NOTE | 2023-11-15 09:08 | P.PNHO-ONC_ITS ---
Medical Summary - Medical Summary Date of Service: 11/15/23 Chief complaint: squamous cell carcinoma Primary Care Provider: Sneha Li MD Medical Summary: Diagnosis-advanced squamous cell carcinoma of anus CT scan of the abdomen pelvis and chest on 10/22 revealed: Infiltrative soft tissue mass in the low pelvis/presacral region measuring 6.6 x 5.4 x 10.1 cm with invasion of the rectosigmoid colon as well as the cervix and vagina. There is extension into the perineum. Small free fluid and inflammatory changes in the presacral space. This most likely represents neoplasm. PET/CT is recommended. There is possible metastatic disease with a small nodule in the left hemipelvis measuring 1.2 x 1.2 cm, an enlarged right inguinal lymph node measuring 1.9 x 1.4 cm and an enlarged right paratracheal lymph node measuring 2.4 x 2.3 cm. 3 mm left upper lobe pulmonary nodule is nonspecific. Interval History Interval history: Yanna Power is a 52 year old female his recent diagnosis of locally advanced anal cancer who is currently admitted for impending bowel obstruction. Imaging showed extensive tumor involving anal canal extending above the rectum as well as involving the posterior vaginal wall. She has not had a bowel movement in almost a week. She reports pain in the perianal/perineal region as well as lower abdomen. No nausea or emesis. No fever or chills. She is awaiting diverting colostomy which has been scheduled for tomorrow. She is now resting comfortably in bed. Review of Systems - Constitutional Reports anorexia - Eyes Reports pain - ENT Reports system reviewed and no additional complaints, except as documented - Cardiovascular Reports fast heart rate - Respiratory Reports chest congestion - Gastrointestinal Reports abdominal pain - Genitourinary Reports abnormal vaginal bleeding, Reports difficulty urinating, Reports pelvic pain - Neurologic Reports system reviewed and no additional complaints, except as documented PMFSH Medical History: Medical History (Last Reviewed 11/13/23 @ 09:51 by Melba Frias MD) Asthma Chronic pain of left knee Congenital deafness Dyslipidemia History of gallbladder disease Hx of Lyme disease Low vitamin D level Mental health disorder Schizophrenia Squamous cell carcinoma of anal canal Family History: Family History (Last Reviewed 11/13/23 @ 09:51 by Melba Frias MD) Mother Hypertension Surgical History: Surgical History (Last Reviewed 11/13/23 @ 09:51 by Melba Frias MD) History of cholecystectomy Hx of appendectomy Hx of foot surgery Hx of tubal ligation Social History: Social History (Last Reviewed 11/13/23 @ 09:51 by Melba Frias MD) Living Situation History: Household Members: None Housing: Apartment Do you presently have visiting nurse or other home services: Yes Do you presently have visiting nurse or other home services comment: home health aide, medication held Alcohol History Details: 1. How often do you have a drink containing alcohol?: a. Never 3. How often do you have six or more drinks on one occasion?: a. Never AUDIT-C Alcohol total score: 0 Currently Displaying Signs/Symptoms of Alcohol Withdrawal: No Tobacco History: Patient Tobacco Use Status: Former Tobacco user Tobacco use type: Cigarette Cigarette Packs Per Day: 1 Smoked in Last 30 Days: Yes Patient Interested in Nicotine Replacement: Yes Substance Use History: Use of substances other than those prescribed or required for medical reasons : No Substance Use Type: Marijuana Currently Displaying Signs/Symptoms of Drug Intoxication Withdrawal: No Domestic Abuse History: Have you been hit, kicked, punched, or otherwise hurt by someone within the past year? If so, by whom?: No Do you feel safe in your current relationship?: No Current Relationship Is there a partner from a previous relationship who is making you feel unsafe now?: No Are you made to feel afraid or neglected: No Healthcare Practices: Anabaptist Healthcare Practices: baptism Advance Directives: Advance Directives: No Advance Directives Information Provided: Yes Advance Directives on File: No Homicidal Assessment: Do you have a plan to hurt others: No Plan Nutrition Assessment: Recently lost weight without trying: Yes How much weight loss: 24-33 pounds Eating poorly because of decreased appetite: Yes Nutrition screen score: 6 Nutrition Risks: Acute nausea or vomiting Patient : No : No Poor oral hygiene: No Occupation Assessmet: service: No Current occupational status: disabled Home Medications and Allergies Current Medications: Current Medications Acetaminophen (Acetaminophen 325 Mg Tablet) 650 mg PO Q6H PRN PRN Reason: Pain, Mild (Pain Scale 1-3), fever or headache Albuterol/Ipratropium (Albuterol/Iprat 2.5/0.5mg 3 Ml Ampul.Neb) 3 ml INHALE Q4H PRN PRN Reason: Shortness of Breath/Wheezing Calcium Carbonate (Calcium Carbonate 750 Mg Tab.Chew) 750 mg PO Q4H PRN PRN Reason: Heartburn Docusate Sodium (Docusate Sodium 100 Mg Capsule) 100 mg PO BID [facility] Last Admin: 11/15/23 08:48 Dose: 100 mg Ferrous Sulfate (Ferrous Sulfate 324 Mg Tablet.Dr) 324 mg PO BID [facility] Last Admin: 11/15/23 08:49 Dose: 324 mg Fluticasone/Vilanterol (Fluticasone/Vilanterol 100/25 Blst.W.Dev) 1 puff INHALE RDAILY [facility] Last Admin: 11/15/23 07:35 Dose: Not Given Folic Acid (Folic Acid 1 Mg Tablet) 1 mg PO DAILY [facility] Last Admin: 11/15/23 08:49 Dose: 1 mg Heparin Sodium (Porcine) (Heparin Sodium,Porcine 5,000 Unit/Ml Vial) 5,000 unit SUBCUT Q12H [facility] Last Admin: 11/15/23 03:28 Dose: 5,000 unit Hydrocortisone (Hydrocortisone 2.5 % Rectal Cr 30 Gm Tube) 1 appl FL DAILY [facility] Last Admin: 11/14/23 09:52 Dose: Not Given Hydromorphone HCl (Hydromorphone Hcl 0.5 Mg/0.5 Ml Syringe) 1 mg IVPUSH Q4H PRN; Protocol PRN Reason: Pain, Severe (Pain Scale 7-10) Last Admin: 11/14/23 17:52 Dose: 1 mg Lorazepam (Lorazepam 0.5 Mg Tablet) 0.5 mg PO BID [facility] Last Admin: 11/15/23 08:49 Dose: 0.5 mg Magnesium Hydroxide (Milk Of Magnesia 30 Ml Oral.Susp) 30 ml PO DAILY PRN PRN Reason: Constipation Melatonin (Melatonin 3 Mg Tablet) 6 mg PO BEDTIME PRN PRN Reason: Insomnia Last Admin: 11/14/23 22:12 Dose: 6 mg Morphine Sulfate (Morphine Sulfate 2 Mg/Ml Cartridge) 2 mg IVPUSH Q3H PRN; Protocol PRN Reason: Pain, Severe (Pain Scale 7-10) Last Admin: 11/15/23 08:46 Dose: 2 mg Naloxone HCl (Naloxone Hcl 0.4 Mg/Ml Vial) 0.04 mg IVPUSH Q5M PRN PRN Reason: Excessive sedation or RR < 8 Nicotine (Nicotine 21 Mg Patch.Td24) 21 mg TRANSDERMA DAILY [facility] Last Admin: 11/15/23 08:48 Dose: 21 mg Nicotine (Nicotine 21 Mg Patch.Td24) 21 mg TRANSDERMA DAILY [facility] Last Admin: 11/14/23 08:35 Dose: Not Given Oxycodone HCl (Oxycodone Hcl Immed Release 5 Mg Tablet) 10 mg PO Q4H PRN PRN Reason: pain (scale score 7-10) Last Admin: 11/14/23 19:31 Dose: 10 mg Oxycodone HCl (Oxycodone Hcl Er 10 Mg Tab.Er.12h) 20 mg PO BID [facility] Last Admin: 11/15/23 08:48 Dose: 20 mg Risperidone (Risperidone 2 Mg Tablet) 4 mg PO BEDTIME [facility] Last Admin: 11/14/23 20:56 Dose: 4 mg Risperidone (Risperidone 1 Mg Tablet) 1 mg PO BID [facility] Last Admin: 11/15/23 08:49 Dose: 1 mg Sodium Chloride (0.9 % Sodium Chloride Flush 3 Ml Syringe) 3 ml IVFLUSH QSHIFT [facility] Last Admin: 11/15/23 08:46 Dose: 3 ml Home Medications ?Medication ?Instructions ?Recorded ?Confirmed ?Type albuterol sulfate 90 mcg/actuation 2 puff PO Q6H PRN Wheezing 02/25/20 11/11/23 History aerosol inhaler risperidone 4 mg tablet 4 mg PO BEDTIME 02/25/20 11/11/23 History lorazepam 0.5 mg tablet 0.5 mg PO BID 07/17/23 11/11/23 History acetaminophen 500 mg tablet 500 - 1,000 mg PO Q8-12H PRN Pain 10/28/23 11/11/23 History fluticasone 500 mcg-salmeterol 50 1 inh inhalation BID 10/28/23 11/11/23 History mcg/dose blistr powdr for inhalation (Advair Diskus) nicotine 21 mg/24 hr daily 1 patch transdermal DAILY 10/28/23 11/11/23 History transdermal patch risperidone 1 mg tablet 1 mg PO BID 10/28/23 11/11/23 History Allergies Allergy/AdvReac Type Severity Reaction Status Date / Time No Known Allergies Allergy Verified 11/11/23 11:17 [No Known Allergies*] Exam Vital signs: Vital Signs Temp 98.1 F 11/15/23 08:00 Pulse 74 11/15/23 08:00 Resp 16 10/05/24 08:00 BP 133/70 11/15/23 08:00 Pulse Ox 94 11/15/23 08:00 O2 Del Method Room Air 11/15/23 08:00 O2 Flow Rate 1 11/14/23 02:47 Intake & Output 11/14/23 11/15/23 11/15/23 18:59 06:59 18:59 Intake Total 1570 / 2290 720 / 2290 Output Total 400 / 1350 950 / 1350 Balance 1170 / 940 -230 / 940 Urine Output (Average ml/kg/hr) 0.54 1.29 Intake: Intake, Oral Amount 720 / 1440 720 / 1440 Intake, IV Amount 850 / 850 Acetaminophen 1,000 mg In 100 100 / 100 ml @ 400 mls/hr IV Q6H [facility] Rx#: [id number] 0.9 % Sodium Chloride 1,000 ml 750 / 750 @ 100 mls/hr IVCONT .Q10H [facility] Rx#:[id number] Output: Output, Urine Amount 400 / 850 450 / 850 Output, Urine Amount (Catheter) 500 / 500 2-way Urethral 500 / 500 Other: Breakfast % Eaten 100% Lunch % Eaten 50% Eating (Feeding) Ability Independent Independent Urine rocha Urine Color Yellow Yellow Stool Ostomy Weight 61.235 kg BMI result Body Mass Index 24.7 - Constitutional Present: no acute distress - Routine HEENT Exam Head: Present: atraumatic, normal inspection - Routine Respiratory Exam Present: decreased breath sounds, CTAB. Absent: accessory muscle use - Routine Cardiovascular Exam Cardiovascular: Present: RRR, S1, S2 - Routine Abdominal Exam Present: diminished bowel sounds, distended - Routine Rectal Exam Visual: Present: tenderness - Routine Exam Groin: Present: tenderness - Routine Skin Exam Present: intact - Routine Neurological Exam Present: alert Data - Labs CBC & Chem 7: 11/14/23 07:45 11/14/23 07:45 Labs: Laboratory Last Values WBC 13.1 X10*3/uL (4.8-10.8) H 11/12/23 05:08 RBC 4.03 X10*6/uL (4.20-5.50) L 11/12/23 05:08 Hgb 9.7 g/dl (12.0-16.0) L 11/14/23 07:45 Hct 31.0 % (37.0-47.0) L 11/14/23 07:45 MCV 77.4 fL (80.0-98.0) L 11/12/23 05:08 MCH 23.8 pg (27.0-33.0) L 11/12/23 05:08 MCHC 30.8 g/dl (31.0-35.0) L 11/12/23 05:08 RDW 18.8 % (11.0-16.0) H 11/12/23 05:08 Plt Count 298 X10*3/uL (160-400) 11/12/23 05:08 MPV 11.4 fL (9.4-12.3) 11/12/23 05:08 Immature Gran % (Auto) 0.2 % (0.0-0.4) 11/12/23 05:08 Neut % (Auto) 50.3 % (45-73) 11/12/23 05:08 Lymph % (Auto) 42.1 % (20-40) H 11/12/23 05:08 [place] % (Auto) 5.7 % (2-11) 11/12/23 05:08 Eos % (Auto) 1.5 % (0-4) 11/12/23 05:08 Baso % (Auto) 0.2 % (0-2) 11/12/23 05:08 Lymph # (Auto) 5.5 X10*3/uL (1.2-4.9) H 11/12/23 05:08 [place] # (Auto) 0.8 X10*3/uL (0.1-1.2) 11/12/23 05:08 Eos # (Auto) 0.2 X10*3/uL (0.0-0.4) 11/12/23 05:08 Baso # (Auto) 0.0 X10*3/uL (0.0-0.2) 11/12/23 05:08 Abs Immat Gran (auto) 0.03 X10*3/uL (0.00-0.03) 11/12/23 05:08 Absolute Neuts (auto) 6.6 x10*3/uL (2.0-8.3) 11/12/23 05:08 Absolute Nucleated RBC 0.000 X10*3/uL (0.0-0.012) 11/12/23 05:08 Nucleated RBC % (auto) 0.0 /100WBC (0.0-0.2) 11/12/23 05:08 Smear Tech's Comments VERIFIED 11/12/23 05:08 Sodium 141 mmol/L (135-145) 11/14/23 07:45 Potassium 3.7 mmol/L (3.3-5.1) 11/14/23 07:45 Chloride 106 mmol/L (96-108) 11/14/23 07:45 Carbon Dioxide 26 mmol/L (22-29) 11/14/23 07:45 Anion Gap 13 (12-20) 11/14/23 07:45 BUN 7 mg/dL (9-16) L 11/14/23 07:45 Creatinine 0.66 mg/dL (0.5-1.4) 11/14/23 07:45 Estim Creat Clear Calc 87.8 11/14/23 07:45 Estimated GFR > 60 11/14/23 07:45 Random Glucose 95 mg/dL (60-115) 11/14/23 07:45 Calcium 9.0 mg/dL (8.4-10.2) D 11/14/23 07:45 Magnesium 2.3 mg/dL (1.6-2.6) 11/11/23 11:44 Total Bilirubin 0.3 mg/dL (0.0-1.0) 11/11/23 11:44 Direct Bilirubin 0.1 mg/dL (0.0-0.5) 11/11/23 11:44 AST 17 U/L (5-31) 11/11/23 11:44 ALT 23 U/L (0-31) 11/11/23 11:44 Alkaline Phosphatase 115 U/L (39-117) 11/11/23 11:44 Total Protein 7.6 g/dL (6.5-8.0) 11/11/23 11:44 Albumin 4.2 g/dL (3.5-5.0) 11/11/23 11:44 Lipase 9 U/L (8-78) 11/11/23 11:44 Blood Type A Positive 11/13/23 07:54 Antibody Screen NEGATIVE 11/13/23 07:54 - Imaging Radiologist's impression: ITS Impressions Pelvis MRI 11/11/23 11:29 IMPRESSION: Findings are most consistent with malignancy centered in the anal canal/lower rectum, possibly anal in origin, although evaluation of the origin is limited due to the large size of the lesion. There is invasion of several structures in the pelvis including anal sphincters, pelvic floor musculature, ischioanal fossa, presacral space, vagina and possibly right cervix. Pathologic suspicious lymph nodes are noted at multiple calista stations including inguinal, iliac, mesorectal and CHAYO territories. Recommend colorectal oncology consultation. Electronically signed by: Alia Donaldson MD 11/11/2023 05:11 PM EDT RP Abdomen/Pelvis CT 11/11/23 17:17 IMPRESSION: 1. No evidence of bowel obstruction. 2. Large infiltrative mass in the perirectal area has increased in size since 10/23/2023. 3. Pelvic lymphadenopathy has increased in size. Biopsy results from a right inguinal lymph node are pending. 4. Incidental note made of hepatosplenomegaly and cholecystectomy. Fleischner guidelines were followed. Electronically signed by: Nguyễn Marrufo MD 11/11/2023 07:31 PM EDT RP Assessment and Plan Patient Active problem list reviewed?: Yes (1) Metastatic cancer Status: Acute Assessment and plan: She is stable. We are witing for the pet/ct scan to determine appropriate antineoplastic treatment. - Time Spent With Patient Time Spent with Patient (in minutes): 15
--- NOTE | 2023-11-15 10:36 | P.PNIM_ITS ---
Subjective Subjective Date of Service: 11/15/23 Interval History: rectal cancer Review of Systems pain seems similar no new c/o Physical Exam 2 Vital Signs: Vital Signs: Last Vital Signs Temp 98.1 F 11/15/23 08:00 Pulse 74 11/15/23 08:00 Resp 16 11/15/23 08:00 BP 133/70 11/15/23 08:00 Pulse Ox 94 11/15/23 08:00 O2 Del Method Room Air 11/15/23 08:00 O2 Flow Rate 1 11/14/23 02:47 BMI result Body Mass Index 24.7 Appearance: Alert.? Oriented X3.? cvs: rrr, [id number] . res: clear to auscultation ,no rhonchii or wheezing abd: soft ,rectal pain ,has colostomy ext pulses present , no cyanosis . neuro: axo3 , nonfocal. Objective Data Active Medications Acetaminophen (Acetaminophen 325 Mg Tablet) 650 mg PO Q6H PRN PRN Reason: Pain, Mild (Pain Scale 1-3), fever or headache Albuterol/Ipratropium (Albuterol/Iprat 2.5/0.5mg 3 Ml Ampul.Neb) 3 ml INHALE Q4H PRN PRN Reason: Shortness of Breath/Wheezing Calcium Carbonate (Calcium Carbonate 750 Mg Tab.Chew) 750 mg PO Q4H PRN PRN Reason: Heartburn Docusate Sodium (Docusate Sodium 100 Mg Capsule) 100 mg PO BID [facility] Last Admin: 11/15/23 08:48 Dose: 100 mg Documented By: LEX Ferrous Sulfate (Ferrous Sulfate 324 Mg Tablet.) 324 mg PO BID [facility] Last Admin: 11/15/23 08:49 Dose: 324 mg Documented By: LEX Fluticasone/Vilanterol (Fluticasone/Vilanterol 100/25 Blst.W.Dev) 1 puff INHALE RDAILY [facility] Last Admin: 11/15/23 07:35 Dose: Not Given Documented By: VALENTE Non-Admin Reason: No med pharm called Folic Acid (Folic Acid 1 Mg Tablet) 1 mg PO DAILY [facility] Last Admin: 11/15/23 08:49 Dose: 1 mg Documented By: LEX Heparin Sodium (Porcine) (Heparin Sodium,Porcine 5,000 Unit/Ml Vial) 5,000 unit SUBCUT Q12H [facility] Last Admin: 11/15/23 03:28 Dose: 5,000 unit Documented By: SVETLANA Hydrocortisone (Hydrocortisone 2.5 % Rectal Cr 30 Gm Tube) 1 appl AR DAILY [facility] Last Admin: 11/15/23 09:16 Dose: Not Given Documented By: LEX Non-Admin Reason: Patient Refused Hydromorphone HCl (Hydromorphone Hcl 0.5 Mg/0.5 Ml Syringe) 1 mg IVPUSH Q4H PRN; Protocol PRN Reason: Pain, Severe (Pain Scale 7-10) Last Admin: 11/14/23 17:52 Dose: 1 mg Documented By: SOLANGE Lorazepam (Lorazepam 0.5 Mg Tablet) 0.5 mg PO BID [facility] Last Admin: 11/15/23 08:49 Dose: 0.5 mg Documented By: LEX Magnesium Hydroxide (Milk Of Magnesia 30 Ml Oral.Susp) 30 ml PO DAILY PRN PRN Reason: Constipation Melatonin (Melatonin 3 Mg Tablet) 6 mg PO BEDTIME PRN PRN Reason: Insomnia Last Admin: 11/14/23 22:12 Dose: 6 mg Documented By: MARQUEZ Morphine Sulfate (Morphine Sulfate 2 Mg/Ml Cartridge) 2 mg IVPUSH Q3H PRN; Protocol PRN Reason: Pain, Severe (Pain Scale 7-10) Last Admin: 11/15/23 08:46 Dose: 2 mg Documented By: LEX Naloxone HCl (Naloxone Hcl 0.4 Mg/Ml Vial) 0.04 mg IVPUSH Q5M PRN PRN Reason: Excessive sedation or RR < 8 Nicotine (Nicotine 21 Mg Patch.Td24) 21 mg TRANSDERMA DAILY [facility] Last Admin: 11/15/23 08:48 Dose: 21 mg Documented By: LEX Nicotine (Nicotine 21 Mg Patch.Td24) 21 mg TRANSDERMA DAILY [facility] Last Admin: 11/15/23 10:29 Dose: Not Given Documented By: LEX Non-Admin Reason: Patient Refused Oxycodone HCl (Oxycodone Hcl Immed Release 5 Mg Tablet) 10 mg PO Q4H PRN PRN Reason: pain (scale score 7-10) Last Admin: 11/14/23 19:31 Dose: 10 mg Documented By: MARQUEZ Oxycodone HCl (Oxycodone Hcl Er 10 Mg Tab.Er.12h) 20 mg PO BID [facility] Last Admin: 11/15/23 08:48 Dose: 20 mg Documented By: LEX Risperidone (Risperidone 2 Mg Tablet) 4 mg PO BEDTIME [facility] Last Admin: 11/14/23 20:56 Dose: 4 mg Documented By: MARQUEZ Risperidone (Risperidone 1 Mg Tablet) 1 mg PO BID [facility] Last Admin: 11/15/23 08:49 Dose: 1 mg Documented By: LEX Sodium Chloride (0.9 % Sodium Chloride Flush 3 Ml Syringe) 3 ml IVFLUSH QSHIFT [facility] Last Admin: 11/15/23 08:46 Dose: 3 ml Documented By: LEX Labs 11/14/23 07:45 11/14/23 07:45 Assessment and Plan (1) Squamous cell carcinoma of anal canal: Status: Acute Plan 52-year-old female with history of schizophrenia, anxiety/depression, metastatic cancer likely anal in origin and mild persistent asthma who is deaf and requires ASL interpretation presents [facility] the [facility] earlier [facility]. ASL interpretor Dorie [phone] assisted with sign language interpretation. She will be admitted for further management of obstipation due to bowel obstruction secondary to anal malignancy. Obstipation due to bowel obstruction secondary metastatic anal malignancy -MRI of the pelvis showed findings most consistent with malignancy centered in the anal canal/lower rectum, possibly anal in origin, though origin evaluation is limited due to size of the lesion. There is also invasion of several structures in the pelvis including anal sphincters, pelvic floor musculature, ischioanal fossa, presacral space, vagina and possibly right cervix with suspicious lymph nodes noted at multiple calista stations including inguinal, iliac, mesorectal and CHAYO territories. oncology and General surgery consult-s/p diverting colostomy still has pain Oncology consult-pet scan next week,plan for chemo after that plan: pain management prn Chronic leukocytosis -due to malignancy, not infectious Hypotension/soft BPs -r/t malignancy, no sepsis -can consider midodrine if continues Chronic microcytic anemia -no overt bleeding, above transfusion threshold -follow schizophrenia/mood disorder -continue home medications mild persistent asthma -no exacerbation -continue Flovent, albuterol p.r.n. urinary retention: pvr's with stright cath prn DVT prophylaxis-give one dose heparin now, resume post operatively Full code ongoing hospitlisation need for management of obstipation due to bowel obstruction r/t anal malignancy s/pdiverting colonocopy, will plan dispo once ok by surgery. Quality Stroke Does the patient have a stroke diagnosis?: No VTE Prior VTE?: No VTE Risk Level:: Medical - moderate - high VTE Device Contraindication: Treatment Not Indicated VTE Drug Contraindication: N/A - Med Ordered
[2023-11-15] MEDS: oxyCODONE HCl Immed Release 5 MG TABLET 10 MG PO ×2 (14:36→21:21)
[2023-11-15 15:11] VITALS: BP 99/58; PULSE 68; RESP 20; TEMP 36.3; O2SAT 93
--- NOTE | 2023-11-15 17:10 | P.PNGS_ITS ---
Subjective Subjective Date of Service: 11/15/23 Interval history: Patient minimally communicative but seemed to understand when I asked her how she was doing. No acute issues. Physical Exam 2 Vital Signs: Vital Signs: Last Vital Signs Temp 97.3 F 11/15/23 15:11 Pulse 68 11/15/23 15:11 Resp 20 11/15/23 15:11 BP 99/58 L 11/15/23 15:11 Pulse Ox 9 L 11/15/23 15:11 O2 Del Method Room Air 11/15/23 15:11 O2 Flow Rate 1 11/14/23 02:47 BMI result Body Mass Index 24.7 GI: Other: Abdomen is soft. Incision dressing clean dry and intact. Ostomy with stool. Objective Data Active Medications Acetaminophen (Acetaminophen 325 Mg Tablet) 650 mg PO Q6H PRN PRN Reason: Pain, Mild (Pain Scale 1-3), fever or headache Albuterol/Ipratropium (Albuterol/Iprat 2.5/0.5mg 3 Ml Ampul.Neb) 3 ml INHALE Q4H PRN PRN Reason: Shortness of Breath/Wheezing Calcium Carbonate (Calcium Carbonate 750 Mg Tab.Chew) 750 mg PO Q4H PRN PRN Reason: Heartburn Docusate Sodium (Docusate Sodium 100 Mg Capsule) 100 mg PO BID [facility] Last Admin: 11/15/23 08:48 Dose: 100 mg Documented By: LEX Ferrous Sulfate (Ferrous Sulfate 324 Mg Tablet.) 324 mg PO BID [facility] Last Admin: 11/15/23 08:49 Dose: 324 mg Documented By: LEX Fluticasone/Vilanterol (Fluticasone/Vilanterol 100/25 Blst.W.Dev) 1 puff INHALE RDAILY [facility] Last Admin: 11/15/23 07:35 Dose: Not Given Documented By: VALENTE Non-Admin Reason: No med pharm called Folic Acid (Folic Acid 1 Mg Tablet) 1 mg PO DAILY [facility] Last Admin: 11/15/23 08:49 Dose: 1 mg Documented By: LEX Heparin Sodium (Porcine) (Heparin Sodium,Porcine 5,000 Unit/Ml Vial) 5,000 unit SUBCUT Q12H [facility] Last Admin: 11/15/23 14:30 Dose: 5,000 unit Documented By: LEX Hydrocortisone (Hydrocortisone 2.5 % Rectal Cr 30 Gm Tube) 1 appl [place] DAILY [facility] Last Admin: 11/15/23 09:16 Dose: Not Given Documented By: LEX Non-Admin Reason: Patient Refused Hydromorphone HCl (Hydromorphone Hcl 0.5 Mg/0.5 Ml Syringe) 1 mg IVPUSH Q4H PRN; Protocol PRN Reason: Pain, Severe (Pain Scale 7-10) Last Admin: 11/14/23 17:52 Dose: 1 mg Documented By: SOLANGE Lorazepam (Lorazepam 0.5 Mg Tablet) 0.5 mg PO BID [facility] Last Admin: 11/15/23 08:49 Dose: 0.5 mg Documented By: LEX Magnesium Hydroxide (Milk Of Magnesia 30 Ml Oral.Susp) 30 ml PO DAILY PRN PRN Reason: Constipation Melatonin (Melatonin 3 Mg Tablet) 6 mg PO BEDTIME PRN PRN Reason: Insomnia Last Admin: 11/14/23 22:12 Dose: 6 mg Documented By: MARQUEZ Morphine Sulfate (Morphine Sulfate 2 Mg/Ml Cartridge) 2 mg IVPUSH Q3H PRN; Protocol PRN Reason: Pain, Severe (Pain Scale 7-10) Last Admin: 11/15/23 11:52 Dose: 2 mg Documented By: LEX Naloxone HCl (Naloxone Hcl 0.4 Mg/Ml Vial) 0.04 mg IVPUSH Q5M PRN PRN Reason: Excessive sedation or RR < 8 Nicotine (Nicotine 21 Mg Patch.Td24) 21 mg TRANSDERMA DAILY [facility] Last Admin: 11/15/23 08:48 Dose: 21 mg Documented By: LEX Nicotine (Nicotine 21 Mg Patch.Td24) 21 mg TRANSDERMA DAILY [facility] Last Admin: 11/15/23 10:29 Dose: Not Given Documented By: LEX Non-Admin Reason: Patient Refused Oxycodone HCl (Oxycodone Hcl Immed Release 5 Mg Tablet) 10 mg PO Q4H PRN PRN Reason: pain (scale score 7-10) Last Admin: 11/15/23 14:36 Dose: 10 mg Documented By: LEX Oxycodone HCl (Oxycodone Hcl Er 10 Mg Tab.Er.12h) 20 mg PO BID [facility] Last Admin: 11/15/23 08:48 Dose: 20 mg Documented By: LEX Risperidone (Risperidone 2 Mg Tablet) 4 mg PO BEDTIME [facility] Last Admin: 11/14/23 20:56 Dose: 4 mg Documented By: MARQUEZ Risperidone (Risperidone 1 Mg Tablet) 1 mg PO BID [facility] Last Admin: 11/15/23 08:49 Dose: 1 mg Documented By: LEX Sodium Chloride (0.9 % Sodium Chloride Flush 3 Ml Syringe) 3 ml IVFLUSH QSHIFT [facility] Last Admin: 11/15/23 14:32 Dose: 3 ml Documented By: LEX Labs 11/14/23 07:45 11/14/23 07:45 Procedures Date of Service Date of Service: 11/15/23 Progress Note: A&P Assessment and plan (1) Postop check: Status: Acute Plan Uneventful postoperative course. Diet as tolerated. Out of bed. Encourage incentive spirometry. Time Spent With Patient Time: Total time managing care of this patient today ____ minutes. Quality Stroke Does the patient have a stroke diagnosis?: No VTE Prior VTE?: No VTE Risk Level:: Medical - moderate - high VTE Device Contraindication: Treatment Not Indicated VTE Drug Contraindication: N/A - Med Ordered
[2023-11-15 19:57] VITALS: BP 96/58; PULSE 73; RESP 20; TEMP 36.2; O2SAT 94
[2023-11-15] MEDS: risperiDONE 2 MG TABLET 4 MG PO (20:35)
[2023-11-15] MEDS: Melatonin 3 MG TABLET 6 MG PO (22:17)
[2023-11-16] VITALS (7 sets, daily range): BP systolic 99–112; BP diastolic 55–68; PULSE 66–80; RESP 12–16; TEMP 36.4–37.1; O2SAT 94–97
--- NOTE | 2023-11-16 02:31 | PC.NURSE ---
patient states pain level 10 at all times, appears to be relaxed.
[2023-11-16] MEDS: Heparin Sodium,Porcine 5,000 UNIT/ML VIAL 5000 UNIT SUBCUT ×2 (03:29→16:11)
--- NOTE | 2023-11-16 03:34 | PC.NURSE ---
colostomy bag leaking at seal site, new applied . device supporting ostomy present and intact.
[2023-11-16] MEDS: oxyCODONE HCl Immed Release 5 MG TABLET 10 MG PO ×4 (03:44→21:40)
[2023-11-16] MEDS: Fluticasone/Vilanterol 100/25 BLST.W.DEV 1 PUFF INHALE (07:48)
--- NOTE | 2023-11-16 09:15 | PM.HEMONCPN ---
Medical Summary - Medical Summary Date of Service: 11/16/23 Chief complaint: squamous cell carcinoma Primary Care Provider: Sneha Li MD Medical Summary: Diagnosis-advanced squamous cell carcinoma of anus CT scan of the abdomen pelvis and chest on 10/22 revealed: Infiltrative soft tissue mass in the low pelvis/presacral region measuring 6.6 x 5.4 x 10.1 cm with invasion of the rectosigmoid colon as well as the cervix and vagina. There is extension into the perineum. Small free fluid and inflammatory changes in the presacral space. This most likely represents neoplasm. PET/CT is recommended. There is possible metastatic disease with a small nodule in the left hemipelvis measuring 1.2 x 1.2 cm, an enlarged right inguinal lymph node measuring 1.9 x 1.4 cm and an enlarged right paratracheal lymph node measuring 2.4 x 2.3 cm. 3 mm left upper lobe pulmonary nodule is nonspecific. Interval History Interval history: Yanna Power is a 52 year old female his recent diagnosis of locally advanced anal cancer who is currently admitted for impending bowel obstruction. Imaging showed extensive tumor involving anal canal extending above the rectum as well as involving the posterior vaginal wall. She has not had a bowel movement in almost a week. She reports pain in the perianal/perineal region as well as lower abdomen. No nausea or emesis. No fever or chills. She is awaiting diverting colostomy which has been scheduled for tomorrow. She is now resting comfortably in bed. Review of Systems - Constitutional Reports anorexia - ENT Reports other - Cardiovascular Reports fast heart rate - Respiratory Reports dyspnea on exertion - Gastrointestinal Reports abdominal pain - Neurologic Reports system reviewed and no additional complaints, except as documented PMFSH Medical History: Medical History (Last Reviewed 11/13/23 @ 09:51 by Melba Frias MD) Asthma Chronic pain of left knee Congenital deafness Dyslipidemia History of gallbladder disease Hx of Lyme disease Low vitamin D level Mental health disorder Schizophrenia Squamous cell carcinoma of anal canal Family History: Family History (Last Reviewed 11/13/23 @ 09:51 by Melba Frias MD) Mother Hypertension Surgical History: Surgical History (Last Reviewed 11/13/23 @ 09:51 by Melba Frias MD) History of cholecystectomy Hx of appendectomy Hx of foot surgery Hx of tubal ligation Social History: Social History (Last Reviewed 11/13/23 @ 09:51 by Melba Frias MD) Living Situation History: Household Members: None Housing: Apartment Do you presently have visiting nurse or other home services: Yes Do you presently have visiting nurse or other home services comment: home health aide, medication held Alcohol History Details: 1. How often do you have a drink containing alcohol?: a. Never 3. How often do you have six or more drinks on one occasion?: a. Never AUDIT-C Alcohol total score: 0 Currently Displaying Signs/Symptoms of Alcohol Withdrawal: No Tobacco History: Patient Tobacco Use Status: Former Tobacco user Tobacco use type: Cigarette Cigarette Packs Per Day: 1 Smoked in Last 30 Days: Yes Patient Interested in Nicotine Replacement: Yes Substance Use History: Use of substances other than those prescribed or required for medical reasons: No Substance Use Type: Marijuana Currently Displaying Signs/Symptoms of Drug Intoxication Withdrawal: No Domestic Abuse History: Have you been hit, kicked, punched, or otherwise hurt by someone within the past year? If so, by whom?: No Do you feel safe in your current relationship?: No Current Relationship Is there a partner from a previous relationship who is making you feel unsafe now?: No Are you made to feel afraid or neglected: No Healthcare Practices: Hinduism Healthcare Practices: hindu Advance Directives: Advance Directives: No Advance Directives Information Provided: Yes Advance Directives on File: No Homicidal Assessment: Do you have a plan to hurt others: No Plan Nutrition Assessment: Recently lost weight without trying: Yes How much weight loss: 24-33 pounds Eating poorly because of decreased appetite: Yes Nutrition screen score: 6 Nutrition Risks: Acute nausea or vomiting Patient : No : No Poor oral hygiene: No Occupation Assessmet: service: No Current occupational status: disabled Home Medications and Allergies Current Medications: Current Medications Acetaminophen (Acetaminophen 325 Mg Tablet) 650 mg PO Q6H PRN PRN Reason: Pain, Mild (Pain Scale 1-3), fever or headache Albuterol/Ipratropium (Albuterol/Iprat 2.5/0.5mg 3 Ml Ampul.Neb) 3 ml INHALE Q4H PRN PRN Reason: Shortness of Breath/Wheezing Calcium Carbonate (Calcium Carbonate 750 Mg Tab.Chew) 750 mg PO Q4H PRN PRN Reason: Heartburn Docusate Sodium (Docusate Sodium 100 Mg Capsule) 100 mg PO BID [facility] Last Admin: 11/15/23 20:35 Dose: 100 mg Ferrous Sulfate (Ferrous Sulfate 324 Mg Tablet.Dr) 324 mg PO BID [facility] Last Admin: 11/15/23 20:35 Dose: 324 mg Fluticasone/Vilanterol (Fluticasone/Vilanterol 100/25 Blst.W.Dev) 1 puff INHALE RDAILY [facility] Last Admin: 11/16/23 07:48 Dose: 1 puff Folic Acid (Folic Acid 1 Mg Tablet) 1 mg PO DAILY [facility] Last Admin: 11/15/23 08:49 Dose: 1 mg Heparin Sodium (Porcine) (Heparin Sodium,Porcine 5,000 Unit/Ml Vial) 5,000 unit SUBCUT Q12H [facility] Last Admin: 11/16/23 03:29 Dose: 5,000 unit Hydrocortisone (Hydrocortisone 2.5 % Rectal Cr 30 Gm Tube) 1 appl [place] DAILY [facility] Last Admin: 11/15/23 09:16 Dose: Not Given Hydromorphone HCl (Hydromorphone Hcl 0.5 Mg/0.5 Ml Syringe) 1 mg IVPUSH Q4H PRN; Protocol PRN Reason: Pain, Severe (Pain Scale 7-10) Last Admin: 11/14/23 17:52 Dose: 1 mg Lorazepam (Lorazepam 0.5 Mg Tablet) 0.5 mg PO BID [facility] Last Admin: 11/15/23 20:35 Dose: 0.5 mg Magnesium Hydroxide (Milk Of Magnesia 30 Ml Oral.Susp) 30 ml PO DAILY PRN PRN Reason: Constipation Melatonin (Melatonin 3 Mg Tablet) 6 mg PO BEDTIME PRN PRN Reason: Insomnia Last Admin: 11/15/23 22:17 Dose: 6 mg Morphine Sulfate (Morphine Sulfate 2 Mg/Ml Cartridge) 2 mg IVPUSH Q3H PRN; Protocol PRN Reason: Pain, Severe (Pain Scale 7-10) Last Admin: 11/15/23 18:41 Dose: 2 mg Naloxone HCl (Naloxone Hcl 0.4 Mg/Ml Vial) 0.04 mg IVPUSH Q5M PRN PRN Reason: Excessive sedation or RR < 8 Nicotine (Nicotine 21 Mg Patch.Td24) 21 mg TRANSDERMA DAILY [facility] Last Admin: 11/15/23 08:48 Dose: 21 mg Nicotine (Nicotine 21 Mg Patch.Td24) 21 mg TRANSDERMA DAILY [facility] Last Admin: 11/15/23 10:29 Dose: Not Given Oxycodone HCl (Oxycodone Hcl Immed Release 5 Mg Tablet) 10 mg PO Q4H PRN PRN Reason: pain (scale score 7-10) Last Admin: 11/16/23 03:44 Dose: 10 mg Oxycodone HCl (Oxycodone Hcl Er 10 Mg Tab.Er.12h) 20 mg PO BID [facility] Last Admin: 11/15/23 20:34 Dose: 20 mg Risperidone (Risperidone 2 Mg Tablet) 4 mg PO BEDTIME [facility] Last Admin: 11/15/23 20:35 Dose: 4 mg Risperidone (Risperidone 1 Mg Tablet) 1 mg PO BID [facility] Last Admin: 11/15/23 20:35 Dose: 1 mg Sodium Chloride (0.9 % Sodium Chloride Flush 3 Ml Syringe) 3 ml IVFLUSH QSHIFT [facility] Last Admin: 11/15/23 20:35 Dose: 3 ml Home Medications ?Medication ?Instructions ?Recorded ?Confirmed ?Type albuterol sulfate 90 mcg/actuation 2 puff PO Q6H PRN Wheezing 02/25/20 11/11/23 History aerosol inhaler risperidone 4 mg tablet 4 mg PO BEDTIME 02/25/20 11/11/23 History lorazepam 0.5 mg tablet 0.5 mg PO BID 07/17/23 11/11/23 History acetaminophen 500 mg tablet 500 - 1,000 mg PO Q8-12H PRN Pain 10/28/23 11/11/23 History fluticasone 500 mcg-salmeterol 50 1 inh inhalation BID 10/28/23 11/11/23 History mcg/dose blistr powdr for inhalation (Advair Diskus) nicotine 21 mg/24 hr daily 1 patch transdermal DAILY 10/28/23 11/11/23 History transdermal patch risperidone 1 mg tablet 1 mg PO BID 10/28/23 11/11/23 History Allergies Allergy/AdvReac Type Severity Reaction Status Date / Time No Known Allergies Allergy Verified 11/11/23 11:17 [No Known Allergies*] Exam Vital signs: Vital Signs Temp 97.7 F 11/16/23 08:04 Pulse 71 11/16/23 08:04 Resp 12 11/16/23 08:04 BP 110/55 L 11/16/23 08:04 Pulse Ox 97 11/16/23 08:04 O2 Del Method Room Air 11/16/23 08:04 O2 Flow Rate 1 11/14/23 02:47 Intake & Output 11/15/23 11/16/23 11/16/23 18:59 06:59 18:59 Intake Total 680 / 2240 1560 / 2240 Output Total 1900 / 1900 Balance 680 / 340 -340 / 340 Urine Output (Average ml/kg/hr) 2.52 Intake: Intake, Oral Amount 680 / 2240 1560 / 2240 Output: Output, Urine Amount 1000 / 1000 Output, Stool Amount 50 / 50 Output, Urine Amount (Catheter) 850 / 850 2-way Urethral 850 / 850 Other: Meal Refused No NPO No Breakfast % Eaten 50% Lunch % Eaten 75% Dinner % Eaten 100% Eating (Feeding) Ability Independent Independent Urine rocha Urine Color Yellow Straw Last Bowel Movement 11/16/23 Stool Bedside Commode Ostomy Continuous Bladder Irrigation Fluid - Amount Instilled 2-way Urethral 600 Weight 61.235 kg BMI result Body Mass Index 24.7 - Constitutional Present: no acute distress - Routine HEENT Exam Head: Present: atraumatic, normal inspection - Routine Neck Exam Present: full ROM - Routine Respiratory Exam Present: decreased breath sounds, CTAB. Absent: accessory muscle use - Routine Cardiovascular Exam Cardiovascular: Present: RRR, S1, S2 - Routine Abdominal Exam Present: diminished bowel sounds, distended - Routine Extremities Exam Present: nontender - Routine Back/Spine/Pelvis Exam Back/Spine: Present: full ROM - Routine Skin Exam Present: intact - Routine Neurological Exam Present: alert Data - Labs CBC & Chem 7: 11/14/23 07:45 11/14/23 07:45 - Imaging Radiologist's impression: ITS Impressions Pelvis MRI 11/11/23 11:29 IMPRESSION: Findings are most consistent with malignancy centered in the anal canal/lower rectum, possibly anal in origin, although evaluation of the origin is limited due to the large size of the lesion. There is invasion of several structures in the pelvis including anal sphincters, pelvic floor musculature, ischioanal fossa, presacral space, vagina and possibly right cervix. Pathologic suspicious lymph nodes are noted at multiple calista stations including inguinal, iliac, mesorectal and CHAYO territories. Recommend colorectal oncology consultation. Electronically signed by: Alia Donaldson MD 11/11/2023 05:11 PM EDT RP Abdomen/Pelvis CT 11/11/23 17:17 IMPRESSION: 1. No evidence of bowel obstruction. 2. Large infiltrative mass in the perirectal area has increased in size since 10/23/2023. 3. Pelvic lymphadenopathy has increased in size. Biopsy results from a right inguinal lymph node are pending. 4. Incidental note made of hepatosplenomegaly and cholecystectomy. Fleischner guidelines were followed. Electronically signed by: Nguyễn Marrufo MD 11/11/2023 07:31 PM EDT RP Assessment and Plan Patient Active problem list reviewed?: Yes (1) Metastatic cancer Status: Acute Assessment and plan: She is stable. We are witing for the pet/ct scan to determine appropriate antineoplastic treatment. (2) Squamous cell carcinoma of anal canal Status: Acute Assessment and plan: 1. 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 She had core biopsy right inguinal lymph node 10/29/23 which showed metastatic poorly differentiated squamous cell carcinoma, IHC showed positivity for CK7, P16, P 40 and P 63. Weak focal GATA3 immuno reactivity, negative for CK20. Patient underwent sigmoidoscopy on 11/06/2023, large masslike lesion visualized in the anal canal. Lumen could not be visualized and therefore scope could not be advanced any further. Biopsy of this revealed invasive squamous cell carcinoma, moderate to poorly differentiated. MRI pelvis with contrast performed 11/11/2023 showed a right-sided large ulcerative mass in the canal and lower rectum measuring 7.4 x 6.7 x 810.5 cm. There was invasion of internal and external anal sphincters, invasion of levator ani muscles and extension into right ischial anal fossa. Posteriorly the mass extends to the presacral space and anteriorly there was invasion of the entire posterior vaginal wall up to the level of the vaginal cuff, questionable early invasion of the right cervix. Soft tissue swelling and edema around the main mass in the pelvis, perineum and right gluteal region. Abnormal partially necrotic lymph nodes noted in the right inguinal region, right external iliac region additional suspicious lymph nodes seen around the iliac, mesorectal and CHAYO territories. CT abdomen/pelvis without contrast shows no evidence of bowel obstruction. Pelvic lymphadenopathy has increased in size compared to prior imaging. Hepatosplenomegaly noted incidentally. Clinical stage cT4 N1, stage IIIC. PET scan has been scheduled for next week. She is scheduled to undergo HALS diverting colostomy tomorrow. Recommendations about systemic therapy will be made after she undergoes PET scan. Appreciate hospitalist and surgical input. Thank you the referral. - Time Spent With Patient Time Spent with Patient (in minutes): 15
[2023-11-16] MEDS: Morphine Sulfate 2 MG/ML CARTRIDGE IVPUSH (09:30)
[2023-11-16] MEDS: 0.9 % Sodium Chloride Flush 3 ML SYRINGE IVFLUSH ×3 (09:30→21:43)
[2023-11-16] MEDS: LORazepam 0.5 MG TABLET PO ×2 (09:35→21:40)
[2023-11-16] MEDS: Docusate Sodium 100 MG CAPSULE PO ×2 (09:35→21:39)
[2023-11-16] MEDS: oxyCODONE HCl ER 10 MG TAB.ER.12H 20 MG PO ×2 (09:35→21:41)
[2023-11-16] MEDS: risperiDONE 1 MG TABLET PO ×2 (09:35→21:40)
[2023-11-16] MEDS: Folic Acid 1 MG TABLET PO (09:35)
[2023-11-16] MEDS: Ferrous Sulfate 324 MG TABLET.DR PO ×2 (09:35→21:39)
[2023-11-16] MEDS: Nicotine 21 MG PATCH.TD24 TRANSDERMA (09:37)
[2023-11-16] MEDS: Hydrocortisone 2.5 % Rectal Cr 30 GM TUBE 1 APPL PR (09:38)
--- NOTE | 2023-11-16 09:45 | P.DS_ITS ---
DS: Providers Provider Date of Service: 11/17/23 Date of admission: 11/11/23 17:56 Date of discharge: 11/17/23 Primary care physician: Sneha Li MD Consults: 11/11/23 17:20 Consult to General Surgery [place] [facility] [place] Reason for consultation: constipation > colostomy Consult to Hematology / Oncology Stat Consulting [place] [facility] [place] Reason for consultation: malignancy Has provider been notified: Yes 11/11/23 17:55 Consult to General Surgery Routine Consulting [place] [facility] [place] [facility] Reason for consultation: obstipation, obstructive neoplasm Consult to Hematology / Oncology Routine Consulting [place] [facility] [place] Reason for consultation: metastatic cancer, obstipation due to obstructive neoplasm 11/12/23 08:58 Consult to Urology Routine Consulting [place] [facility] [place] Reason for consultation: Urinary retention 11/14/23 08:41 Consult to Ostomy Care Routine Attending physician on discharge: Jordy Jenkins Discharging clinician: Jordy Jenkins DS: Diagnosis Discharge Diagnosis (1) Metastatic cancer: Status: Acute (2) Squamous cell carcinoma of anal canal: Status: Acute DS: Summary Hospital Course Hospital Course: Date of service and discharge: 11/17/23. 52-year-old female with history of schizophrenia, anxiety/depression, metastatic cancer likely anal in origin and mild persistent asthma who is deaf and requires ASL interpretation presents to the ED earlier today [facility]. ASL interpretor Dorie [phone] assisted with sign language interpretation. The patient reports that she has not moved her bowels in the last 5 days. She was reporting mild diffuse abdominal discomfort rated as a 2-3/10 without any radiation. There is no fevers, chills, nausea, vomiting. She does report a small amount of bright red blood from her rectum. She has no other complaints at this time. She was seen in the Oncology office earlier today recommending she present to the ED for further evaluation of probable bowel obstruction secondary to anorectal cancer likely needing diverting colostomy and recommending MRI of the pelvis with surgical consultation. In the ED, blood pressure soft but no hypotension, otherwise stable. She has a leukocytosis of 14.6. Renal function electrolyte levels are normal. Hepatic function is within normal limits. MRI of the pelvis showed findings most consistent with malignancy centered in the anal canal/lower rectum, possibly anal in origin, though origin evaluation is limited due to size of the lesion. There is also invasion of several structures in the pelvis including anal sphincters, pelvic floor musculature, ischioanal fossa, presacral space, vagina and possibly right cervix with suspicious lymph nodes noted at multiple calista stations including inguinal, iliac, mesorectal and CHAYO territories. CT abd pelvis pending. In the Ed, given 1 L IVF. Hospital course: Patient came to the hospital because of obstipation due to possible bowel obstr uction secondary to metastatic anal malignancy,MRI of the pelvis showed findings most consistent with malignancy centered in the anal canal/lower rectum: Patient was seen by General surgery and Oncology : Patient was recommended for diverting colostomy which was done by surgery. Currently colostomy checked by surgery seems fine, cleared by surgery for discharge. Patient also needs to follow up with Oncology outpatient for further PET scan and management of cancer. Patient is to follow-up out patiently with surgery. Patient has urinary retention urology saw the patient recommended likely renal knee retention in the setting of rectal malignancy: Follow-up with Urology outpatient. Colostomy care: Coloplast #[id number]; change appliance every 3-4 days and as needed. plan: Follow-up with surgery and Oncology for above management and further workup. Continue laxatives. VNA with colostomy care as above(wound care had done detail teaching for the patient) also surgery placed discharge instructions also. Assessment plan coordination time spent 40 minute. Above management discussed with the patient detail length she understand and in agreement with the above plan. Time Attestation Total time managing care of this patient today: 40 mintues. Discharge Coordination Time (in mins): 40 min Quality: Safe Use of Opioids Does Pt have an Active Cancer Diagnosis on the Problem List?: Yes Opioid Measure Date for CMS Report: 10/18/23 Opioid Measure Time for CMS Report: 12:45 Quality: Stroke Does the patient have a stroke diagnosis?: No Physical Exam Vital Signs: Vital Signs: Last Vital Signs Temp 97.7 F 11/16/23 08:04 Pulse 71 11/16/23 08:04 Resp 16 11/16/23 09:30 BP 110/55 L 11/16/23 08:04 Pulse Ox 97 11/16/23 08:04 O2 Del Method Room Air 11/16/23 08:04 O2 Flow Rate 1 11/14/23 02:47 BMI result Body Mass Index 24.7 Appearance: Alert.? Oriented X3.? cvs: rrr, [id number] . res: clear to auscultation ,no rales or wheezing. abd: soft ,rectal pain ,has colostomy, having stool output. ext pulses present , no cyanosis . neuro: axo3 , nonfocal. DS: Data Data Completed and Pending Completed studies during hospitalization [Text1]: Procedures Excision of Rectum, Via Natural or Artificial Opening Endoscopic, Diagnostic (10/28/23) Excision of Right Inguinal Lymphatic, Percutaneous Approach, Diagnostic (10/28/23) Transfusion of Nonautologous Red Blood Cells into Peripheral Vein, Percutaneous Approach (10/28/23) Imaging Chest x-ray: Radiologist's impression: ITS Impressions Pelvis MRI 11/11/23 11:29 IMPRESSION: Findings are most consistent with malignancy centered in the anal canal/lower rectum, possibly anal in origin, although evaluation of the origin is limited due to the large size of the lesion. There is invasion of several structures in the pelvis including anal sphincters, pelvic floor musculature, ischioanal fossa, presacral space, vagina and possibly right cervix. Pathologic suspicious lymph nodes are noted at multiple calista stations including inguinal, iliac, mesorectal and CHAYO territories. Recommend colorectal oncology consultation. Electronically signed by: Alia Donaldson MD 11/11/2023 05:11 PM EDT RP Abdomen/Pelvis CT 11/11/23 17:17 IMPRESSION: 1. No evidence of bowel obstruction. 2. Large infiltrative mass in the perirectal area has increased in size since 10/23/2023. 3. Pelvic lymphadenopathy has increased in size. Biopsy results from a right inguinal lymph node are pending. 4. Incidental note made of hepatosplenomegaly and cholecystectomy. Fleischner guidelines were followed. Electronically signed by: Nguyễn Marrufo MD 11/11/2023 07:31 PM EDT RP Discharge Plan Discharge Anticipated Discharge Date/Time: 11/16/23 09:36 Patient Disposition: Home Health Service Discharge Diagnosis: Rectal mass/constipation-status post diverting colostomy, urinary retention Referrals: [facility] [Other] - 1 Week ([facility] will call you to schedule home nursing visits. ) Guillermo,Sneha, MD [Primary Care Provider] - 1 Week Paul Pelayo MD [Physician] - 2 Weeks Discharge Medications: Continued albuterol sulfate 90 mcg/actuation HFA aerosol inhaler 2 puff PO Q6H PRN (Reason: Wheezing) risperidone 4 mg Tablet 4 mg PO BEDTIME folic acid 1 mg Tablet 1 mg PO DAILY Qty: 90 3RF ferrous sulfate 325 mg (65 mg iron) Tablet 325 mg PO BID Qty: 60 1RF acetaminophen 500 mg Tablet 500 - 1,000 mg PO Q8-12H PRN (Reason: Pain) fluticasone propion-salmeterol [Advair Diskus] 500-50 mcg/dose Blister With Device 1 inh INHALATION BID nicotine 21 mg/24 hr Patch 24 Hour 1 patch TRANSDERMAL DAILY risperidone 1 mg Tablet 1 mg PO BID hydrocortisone [Proctozone-HC] 2.5 % Cream With Perineal Applicator 1 appl [place] DAILY Qty: 30 0RF ascorbic acid (vitamin C) 250 mg Tablet 250 mg PO BID Qty: 60 0RF oxycodone [OxyContin] 10 mg Tablet,Oral Only,Ext.Rel.12 Hr 20 mg PO BID Qty: 60 0RF Rx Instructions: Partial Fill upon patient request. polyethylene glycol 3350 17 gram Powder In Packet 17 g PO DAILY PRN (Reason: consitpation) Qty: 100 0RF melatonin 3 mg Tablet 6 mg PO BEDTIME PRN (Reason: Insomnia) Qty: 30 0RF oxycodone 10 mg tablet 10 mg PO Q4H PRN (Reason: pain (scale score 7-10)) Qty: 60 0RF Rx Instructions: Partial Fill upon patient request. magnesium hydroxide [Milk of Magnesia] 400 mg/5 mL Suspension 30 ml PO DAILY PRN (Reason: Constipation) Qty: 3000 0RF docusate sodium 100 mg Capsule 100 mg PO BID Qty: 18 0RF lorazepam 0.5 mg tablet 0.5 mg PO BID Discontinued amoxicillin-pot clavulanate 875-125 mg Tablet 1 tab PO BID Qty: 8 0RF Rx Instructions: End date 11/12/23 Discharge Orders: Discharge Order (Routine); Ordered 11/17/23 Ordered By: Jordy Jenkins Diet: Advance to usual diet Activity on Discharge: As tolerated Stand Alone Forms: Patient Portal Discharge page Print Language: Malian Sign Language Care Plan Goals: Patient came to the hospital because of obstipation due to possible bowel obstruction secondary to metastatic anal malignancy,MRI of the pelvis showed findings most consistent with malignancy centered in the anal canal/lower rectum: Patient was seen by General surgery and Oncology : Patient was r ecommended for diverting colostomy which was done by surgery. Currently colostomy checked by surgery seems fine, cleared by surgery for discharge. Patient also needs to follow up with Oncology outpatient for further PET scan and management of cancer. Patient is to follow-up out patiently with surgery. Patient has urinary retention urology saw the patient recommended likely renal knee retention in the setting of rectal malignancy: Follow-up with Urology outpatient. Above management discussed with the patient and her family. They understand and in agreement with the above plan- Time spent 40 minute. Colostomy care: Coloplast #[id number]; change appliance every 3-4 days and as needed. Health Concerns: As above. Plan of Treatment: As above. Assessment: As above. Patient Instructions: Colostomy Care (DC)
--- NOTE | 2023-11-16 10:36 | MHC.CM.PN ---
Addendum entered by Karla Wallace 11/16/23 11:43: [facility] provides Med management. They do not manage Ostomy or rocha catheters. Message sent via [employer] asking for clarification on services available. A referral will be sent to [facility] as a back up. Patient will stay with her sister. She may need to manage medications until Ostomy+ rocha catheter management education is complete. Original Note: Spoke with pts sisterShaina re discharge plan. The Ostomy nurse will provide additional education for Appliance management tomorrow. The plan is to discharge once the education is complete. [facility] will resume services at discharge. Patient will return to her sisters house. Sh[facility]a will provide transport home.
--- NOTE | 2023-11-16 13:01 | P.PNIM_ITS ---
Subjective Subjective Date of Service: 11/16/23 Interval History: pain seems improving no new c/o Review of Systems has colostomy Physical Exam 2 Vital Signs: Vital Signs: Last Vital Signs Temp 97.7 F 11/16/23 08:04 Pulse 71 11/16/23 08:04 Resp 16 11/16/23 09:30 BP 110/55 L 11/16/23 08:04 Pulse Ox 97 11/16/23 09:00 O2 Del Method Room Air 11/16/23 09:00 O2 Flow Rate 1 11/14/23 02:47 BMI result Body Mass Index 24.7 Appearance: Alert.? Oriented X3.? cvs: rrr, [id number] . res: clear to auscultation ,no rales or wheezing. abd: soft ,rectal pain ,has colostomy ext pulses present , no cyanosis . neuro: axo3 , nonfocal. Objective Data Active Medications Acetaminophen (Acetaminophen 325 Mg Tablet) 650 mg PO Q6H PRN PRN Reason: Pain, Mild (Pain Scale 1-3), fever or headache Albuterol/Ipratropium (Albuterol/Iprat 2.5/0.5mg 3 Ml Ampul.Neb) 3 ml INHALE Q4H PRN PRN Reason: Shortness of Breath/Wheezing Calcium Carbonate (Calcium Carbonate 750 Mg Tab.Chew) 750 mg PO Q4H PRN PRN Reason: Heartburn Docusate Sodium (Docusate Sodium 100 Mg Capsule) 100 mg PO BID [facility] Last Admin: 11/16/23 09:35 Dose: 100 mg Documented By: DAVID Ferrous Sulfate (Ferrous Sulfate 324 Mg Tablet.) 324 mg PO BID [facility] Last Admin: 11/16/23 09:35 Dose: 324 mg Documented By: DAVID Fluticasone/Vilanterol (Fluticasone/Vilanterol 100/25 Blst.W.Dev) 1 puff INHALE RDAILY [facility] Last Admin: 11/16/23 07:48 Dose: 1 puff Documented By: [place] Folic Acid (Folic Acid 1 Mg Tablet) 1 mg PO DAILY [facility] Last Admin: 11/16/23 09:35 Dose: 1 mg Documented By: DAVID Heparin Sodium (Porcine) (Heparin Sodium,Porcine 5,000 Unit/Ml Vial) 5,000 unit SUBCUT Q12H [facility] Last Admin: 11/16/23 03:29 Dose: 5,000 unit Documented By: MARQUEZ Hydrocortisone (Hydrocortisone 2.5 % Rectal Cr 30 Gm Tube) 1 appl [place] DAILY [facility] Last Admin: 11/16/23 09:38 Dose: 1 appl Documented By: DAVID Hydromorphone HCl (Hydromorphone Hcl 0.5 Mg/0.5 Ml Syringe) 1 mg IVPUSH Q4H PRN; Protocol PRN Reason: Pain, Severe (Pain Scale 7-10) Last Admin: 11/14/23 17:52 Dose: 1 mg Documented By: SOLANGE Lorazepam (Lorazepam 0.5 Mg Tablet) 0.5 mg PO BID [facility] Last Admin: 11/16/23 09:35 Dose: 0.5 mg Documented By: DAVID Magnesium Hydroxide (Milk Of Magnesia 30 Ml Oral.Susp) 30 ml PO DAILY PRN PRN Reason: Constipation Melatonin (Melatonin 3 Mg Tablet) 6 mg PO BEDTIME PRN PRN Reason: Insomnia Last Admin: 11/15/23 22:17 Dose: 6 mg Documented By: MARQUEZ Morphine Sulfate (Morphine Sulfate 2 Mg/Ml Cartridge) 2 mg IVPUSH Q3H PRN; Protocol PRN Reason: Pain, Severe (Pain Scale 7-10) Last Admin: 11/16/23 09:30 Dose: 2 mg Documented By: DAVID Naloxone HCl (Naloxone Hcl 0.4 Mg/Ml Vial) 0.04 mg IVPUSH Q5M PRN PRN Reason: Excessive sedation or RR < 8 Nicotine (Nicotine 21 Mg Patch.Td24) 21 mg TRANSDERMA DAILY [facility] Last Admin: 11/16/23 09:37 Dose: 21 mg Documented By: DAVID Nicotine (Nicotine 21 Mg Patch.Td24) 21 mg TRANSDERMA DAILY [facility] Last Admin: 11/16/23 09:38 Dose: Not Given Documented By: DAVID Non-Admin Reason: Duplicate Order Oxycodone HCl (Oxycodone Hcl Immed Release 5 Mg Tablet) 10 mg PO Q4H PRN PRN Reason: pain (scale score 7-10) Last Admin: 11/16/23 03:44 Dose: 10 mg Documented By: MARQUEZ Oxycodone HCl (Oxycodone Hcl Er 10 Mg Tab.Er.12h) 20 mg PO BID [facility] Last Admin: 11/16/23 09:35 Dose: 20 mg Documented By: DAVID Risperidone (Risperidone 2 Mg Tablet) 4 mg PO BEDTIME [facility] Last Admin: 11/15/23 20:35 Dose: 4 mg Documented By: MARQUEZ Risperidone (Risperidone 1 Mg Tablet) 1 mg PO BID [facility] Last Admin: 11/16/23 09:35 Dose: 1 mg Documented By: DAVID Sodium Chloride (0.9 % Sodium Chloride Flush 3 Ml Syringe) 3 ml IVFLUSH QSHIFT [facility] Last Admin: 11/16/23 09:30 Dose: 3 ml Documented By: DAVID Labs 11/14/23 07:45 11/14/23 07:45 Assessment and Plan (1) Squamous cell carcinoma of anal canal: Status: Acute Plan 52-year-old female with history of schizophrenia, anxiety/depression, metastatic cancer likely anal in origin and mild persistent asthma who is deaf and requires ASL interpretation presents to the ED earlier today [facility] for evaluation of obstipation. ASL interpretor Dorie [phone] assisted with sign language interpretation. She will be admitted for further management of obstipation due to bowel obstruction secondary to anal malignancy. Obstipation due to bowel obstruction secondary metastatic anal malignancy -MRI of the pelvis showed findings most consistent with malignancy centered in the anal canal/lower rectum, possibly anal in origin, though origin evaluation is limited due to size of the lesion. There is also invasion of several structures in the pelvis including anal sphincters, pelvic floor musculature, ischioanal fossa, presacral space, vagina and possibly right cervix with suspicious lymph nodes noted at multiple calista stations including inguinal, iliac, mesorectal and CHAYO territories. oncology and General surgery consult-s/p diverting colostomy still has pain Oncology consult-pet scan next week,plan for chemo after that plan: pain management prn Chronic leukocytosis -due to malignancy, not infectious Hypotension/soft BPs -r/t malignancy, no sepsis -can consider midodrine if continues Chronic microcytic anemia -no overt bleeding, above transfusion threshold -follow schizophrenia/mood disorder -continue home medications mild persistent asthma -no exacerbation -continue Flovent, albuterol p.r.n. urinary retention: pvr's with stright cath prn DVT prophylaxis-give one dose heparin now, resume post operatively Full code ongoing hospitlisation need for management of obstipation due to bowel obstruction r/t anal malignancy s/pdiverting colonocopy, need colostomy nursing training Quality Stroke Does the patient have a stroke diagnosis?: No VTE Prior VTE?: No VTE Risk Level:: Medical - moderate - high VTE Device Contraindication: Treatment Not Indicated VTE Drug Contraindication: N/A - Med Ordered
[2023-11-16] MEDS: Acetaminophen 325 MG TABLET 650 MG PO (16:11)
--- NOTE | 2023-11-16 18:34 | PC.NURSE ---
Pt. refused to get OOB, numerous attempts by this Nurse and education provided about importance of being OOB but pt. refused, made a voice and stated not today, chair is not comfortable and I don't want to walk today.
[2023-11-16] MEDS: Melatonin 3 MG TABLET 6 MG PO (21:40)
[2023-11-16] MEDS: risperiDONE 2 MG TABLET 4 MG PO (21:40)
[2023-11-17] MEDS: oxyCODONE HCl Immed Release 5 MG TABLET 10 MG PO ×3 (03:30→13:03)
[2023-11-17] MEDS: Heparin Sodium,Porcine 5,000 UNIT/ML VIAL 5000 UNIT SUBCUT (03:33)
[2023-11-17 03:40] VITALS: BP 94/56; PULSE 71; RESP 14; TEMP 36.4; O2SAT 94
[2023-11-17] MEDS: HYDROmorphone HCl 0.5 MG/0.5 ML SYRINGE 1 MG IVPUSH (06:41)
--- NOTE | 2023-11-17 06:59 | HO.STUDPN_ITS ---
Subjective Subjective Date of Service: 11/17/23 <Felicitydamion Davies - Last Filed: 11/17/23 07:19> 11/17/23 <Desiree Barnes PA-C - Last Filed: 11/17/23 10:55> 11/17/23 <Paul Pelayo MD - Last Filed: 11/17/23 15:58> Interval History: Patient states that she is doing well, reports improvement in pain. States that pain is so-so is at most 5/10. No acute overnight events reported. States that she is unable to ambulate out of bed due to rocha catheter but wishes to be discharged when rocha is removed. <Felicity Seaton - Last Filed: 11/17/23 07:19> Review of Systems ROS negative except for as previously stated. <Felicity Seaton - Last Filed: 11/17/23 07:19> Constitutional Constitutional: Reports as per HPI, Reports no additional constitutional complaints and Reports anorexia <Felicity Seaton - Last Filed: 11/17/23 07:19> Eyes Eyes: Reports no additional eye complaints and Reports eye pain <Felicity Seaton - Last Filed: 11/17/23 07:19> ENT Ears, Nose, Mouth, and Throat: Reports system reviewed and no additional complaints, except as documented and Reports other <Felicity Seaton - Last Filed: 11/17/23 07:19> Cardiovascular Cardiovascular: Reports no additional cardiovascular complaints, Reports rapid heart rate and Reports dyspnea on exertion <Felicity Seaton - Last Filed: 11/17/23 07:19> Respiratory Respiratory: Reports no additional respiratory complaints, Reports chest congestion and Reports dyspnea on exertion <Felicity Seaton - Last Filed: 11/17/23 07:19> Gastrointestinal Gastrointestinal: Reports no additional gastrointestinal complaints and Reports abdominal pain <Felicity Seaton - Last Filed: 11/17/23 07:19> Musculoskeletal Musculoskeletal: Reports no additional musculoskeletal complaints <Felicity Seaton - Last Filed: 11/17/23 07:19> Integumentary/Breasts Skin/Breast: Reports no additional skin complaints <Felicity Seaton - Last Filed: 11/17/23 07:19> Neurologic Neurologic: Reports system reviewed and no additional complaints, except as documented <[facility] - Last Filed: 11/17/23 07:19> Psychiatric Psychiatric: Reports no additional psychiatric complaints <Felicity - Last Filed: 11/17/23 07:19> Endocrine Endocrine: Reports no additional endocrine complaints <[facility] - Last Filed: 11/17/23 07:19> Hematologic/Lymphatic Hematologic/Lymphatic: Reports no additional hematologic/lymphatic complaints <[facility] - Last Filed: 11/17/23 07:19> Allergic/Immunologic Allergic/Immunologic: Reports no additional allergic/immunologic complaints <[facility] - Last Filed: 11/17/23 07:19> Physical Exam 2 Vital Signs: Vital Signs: Last Vital Signs Temp 97.5 F 11/17/23 03:40 Pulse 71 11/17/23 03:40 Resp 14 11/17/23 03:40 BP 94/56 L 11/17/23 03:40 Pulse Ox 94 11/17/23 03:40 O2 Del Method Room Air 11/17/23 03:40 O2 Flow Rate 1 11/14/23 02:47 BMI result Body Mass Index 24.7 <Felicity Seaton - Last Filed: 11/17/23 07:19> Const: Other: Frail looking but not in any distress <[facility] - Last Filed: 11/17/23 07:19> General: cooperative, comfortable and no acute distress <[facility] - Last Filed: 11/17/23 07:19> Orientation/consciousness: patient oriented x3 <[facility] - Last Filed: 11/17/23 07:19> Limitations: no limitations and language barrier <[facility] - Last Filed: 11/17/23 07:19> HEENT: Head: Yes normal to inspection, Yes normocephalic and Yes atraumatic <[facility] - Last Filed: 11/17/23 07:19> Ears: hearing grossly abnormal bilaterally (chronic, signs ASL, verbally communicative with written and interpretator) <[facility] - Last Filed: 11/17/23 07:19> General nose exam: Normal external nose present <[facility] - Last Filed: 11/17/23 07:19> Face and sinus: Yes normal facial exam <[facility] - Last Filed: 11/17/23 07:19> Mouth: Normal oral and palatal mucosa present, oropharynx normal and moist mucous membranes <[facility] Last Filed: 11/17/23 07:19> Throat: Yes posterior oropharynx normal <[facility] - Last Filed: 11/17/23 07:19> Eyes: General: appearance normal, both eyes and all related structures < [facility] - Last Filed: 11/17/23 07:19> Alignment and Position: alignment normal <[facility] - Last Filed: 11/17/23 07:19> Eyelids: Yes eyelids normal <[facility] - Last Filed: 11/17/23 07:19> Conjunctivae: conjunctivae normal <[facility] - Last Filed: 11/17/23 07:19> Sclerae: sclerae normal <[facility] - Last Filed: 11/17/23 07:19> Pupils: Equal, round and reactive pupils present and Pupils normal by confrontation <[facility] - Last Filed: 11/17/23 07:19> EOM: EOMs intact bilaterally <[facility] Last Filed: 11/17/23 07:19> Neck: Neck: Yes normal visual inspection, Yes full ROM and Yes no lymphadenopathy <[facility] - Last Filed: 11/17/23 07:19> Lymphatic: no lymphadenopathy noted <[facility] Last Filed: 11/17/23 07:19> Chest: Chest palpation & inspection: normal inspection of the chest < [facility] - Last Filed: 11/17/23 07:19> Resp: Effort & Inspection: normal respiratory effort and able to speak in complete sentences <[facility] - Last Filed: 11/17/23 07:19> Auscultation: clear to auscultation bilaterally, no crackles, no rales, no rhonchi and no wheezes <Felicity Seaton - Last Filed: 11/17/23 07:19> Cardio: Rate: regular rate <Felicity Seaton - Last Filed: 11/17/23 07:19> Rhythm: regular rhythm <Felicitydamion Davies - Last Filed: 11/17/23 07:19> Heart sounds: S1 normal heart sound present and S2 normal heart sound present <Feliciyt Seaton - Last Filed: 11/17/23 07:19> GI: Other: Abdomen is soft. Incision dressing clean dry and intact. Ostomy with stool. <Felicity Seaton - Last Filed: 11/17/23 07:19> Other: Abdomen is soft. Incisions clean. Ostomy with small amount of black stool, bridge in place <Desiree Barnes PA-C - Last Filed: 11/17/23 10:55> Inspection: Yes normal to inspection <Felicity Seaton - Last Filed: 11/17/23 07:19> Palpation (GI): Soft to palpation, not firm, Tenderness to palpation present (GI) (Mild diffuse tenderness with mild distention. Incision site dressing clean ) and no guarding <Felicity Seaton - Last Filed: 11/17/23 07:19> Skin: General skin exam: no rashes or lesions noted <Felicity Seaton - Last Filed: 11/17/23 07:19> Trauma: no lacerations or abrasions <Felicity Seaton - Last Filed: 11/17/23 07:19> Wounds: no wounds <Felicity Seaton - Last Filed: 11/17/23 07:19> Neuro: General: patient oriented x3 and moves all extremities <Felicity Seaton - Last Filed: 11/17/23 07:19> Cranial nerves: Yes Equal, round and reactive pupils present <Felicity Seaton - Last Filed: 11/17/23 07:19> Extrem: General: Yes normal to inspection <Felicitydamion Davies - Last Filed: 11/17/23 07:19> Right upper extremity: normal to inspection <Felicity Davies - Last Filed: 11/17/23 07:19> Left upper extremity: normal to inspection <Felicity Davies - Last Filed: 11/17/23 07:19> Right lower extremity: normal to inspection <Felicityzechariah Davies - Last Filed: 11/17/23 07:19> Left lower extremity: normal to inspection <Felicity Davies - Last Filed: 11/17/23 07:19> Objective Data Active Medications Acetaminophen (Acetaminophen 325 Mg Tablet) 650 mg PO Q6H PRN PRN Reason: Pain, Mild (Pain Scale 1-3), fever or headache Last Admin: 11/16/23 16:11 Dose: 650 mg Documented By: DAVID Albuterol/Ipratropium (Albuterol/Iprat 2.5/0.5mg 3 Ml Ampul.Neb) 3 ml INHALE Q4H PRN PRN Reason: Shortness of Breath/Wheezing Calcium Carbonate (Calcium Carbonate 750 Mg Tab.Chew) 750 mg PO Q4H PRN PRN Reason: Heartburn Docusate Sodium (Docusate Sodium 100 Mg Capsule) 100 mg PO BID [facility] Last Admin: 11/16/23 21:39 Dose: 100 mg Documented By: AFSHIN Ferrous Sulfate (Ferrous Sulfate 324 Mg Tablet.) 324 mg PO BID [facility] Last Admin: 11/16/23 21:39 Dose: 324 mg Documented By: AFSHIN Fluticasone/Vilanterol (Fluticasone/Vilanterol 100/25 Blst.W.Dev) 1 puff INHALE RDAILY [facility] Last Admin: 11/16/23 07:48 Dose: 1 puff Documented By: [place] Folic Acid (Folic Acid 1 Mg Tablet) 1 mg PO DAILY [facility] Last Admin: 11/16/23 09:35 Dose: 1 mg Documented By: DAVID Heparin Sodium (Porcine) (Heparin Sodium,Porcine 5,000 Unit/Ml Vial) 5,000 unit SUBCUT Q12H [facility] Last Admin: 11/17/23 03:33 Dose: 5,000 unit Documented By: AFSHIN Hydrocortisone (Hydrocortisone 2.5 % Rectal Cr 30 Gm Tube) 1 appl IA DAILY [facility] Last Admin: 11/16/23 09:38 Dose: 1 appl Documented By: DAVID Hydromorphone HCl (Hydromorphone Hcl 0.5 Mg/0.5 Ml Syringe) 1 mg IVPUSH Q4H PRN; Protocol PRN Reason: Pain, Severe (Pain Scale 7-10) Last Admin: 11/17/23 06:41 Dose: 1 mg Documented By: AFSHIN Magnesium Hydroxide (Milk Of Magnesia 30 Ml Oral.Susp) 30 ml PO DAILY PRN PRN Reason: Constipation Melatonin (Melatonin 3 Mg Tablet) 6 mg PO BEDTIME PRN PRN Reason: Insomnia Last Admin: 11/16/23 21:40 Dose: 6 mg Documented By: AFSHIN Morphine Sulfate (Morphine Sulfate 2 Mg/Ml Cartridge) 2 mg IVPUSH Q3H PRN; Protocol PRN Reason: Pain, Severe (Pain Scale 7-10) Last Admin: 11/16/23 09:30 Dose: 2 mg Documented By: DAVID Naloxone HCl (Naloxone Hcl 0.4 Mg/Ml Vial) 0.04 mg IVPUSH Q5M PRN PRN Reason: Excessive sedation or RR < 8 Nicotine (Nicotine 21 Mg Patch.Td24) 21 mg TRANSDERMA DAILY [facility] Last Admin: 11/16/23 09:37 Dose: 21 mg Documented By: DAVID Nicotine (Nicotine 21 Mg Patch.Td24) 21 mg TRANSDERMA DAILY [facility] Last Admin: 11/16/23 09:38 Dose: Not Given Documented By: DAVID Non-Admin Reason: Duplicate Order Oxycodone HCl (Oxycodone Hcl Immed Release 5 Mg Tablet) 10 mg PO Q4H PRN PRN Reason: pain (scale score 7-10) Last Admin: 11/17/23 03:30 Dose: 10 mg Documented By: AFSHIN Oxycodone HCl (Oxycodone Hcl Er 10 Mg Tab.Er.12h) 20 mg PO BID [facility] Last Admin: 11/16/23 21:41 Dose: 20 mg Documented By: AFSHIN Risperidone (Risperidone 2 Mg Tablet) 4 mg PO BEDTIME [facility] Last Admin: 11/16/23 21:40 Dose: 4 mg Documented By: AFSHIN Risperidone (Risperidone 1 Mg Tablet) 1 mg PO BID [facility] Last Admin: 11/16/23 21:40 Dose: 1 mg Documented By: HO.WYSK Sodium Chloride (0.9 % Sodium Chloride Flush 3 Ml Syringe) 3 ml IVFLUSH QSHIFT [place] Last Admin: 11/16/23 21:43 Dose: 3 ml Documented By: AFSHIN <Felicitydamion Davies - Last Filed: 11/17/23 07:19> Labs CBC & Chem 7: 11/14/23 07:45 11/14/23 07:45 <Felicitydamion Davies - Last Filed: 11/17/23 07:19> Assessment and Plan (1) S/P colostomy: Status: Acute <Felicitydamion Davies - Last Filed: 11/17/23 07:19> Assessment and Plan: She feels well Abdomen is soft and benign Incision clean Stoma functioning well with good output Stoma care Seen and examined independently She will need to be seen and followed by the oncologist service <Paul Pelayo MD - Last Filed: 11/17/23 15:58> Assessment and Plan: Yanna is a 52 year old female POD3 for diverting colostomy secondary to 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 Has a large bulky tumor extending from the anus to the rectosigmoid. Uneventful postoperative course thus far. Continue diet as tolerated, she reports that she is eating approximately 50% of her meals. Encouraged ambulation out of bed and hourly use of incentive spirometer. Vital signs and labs have been stable, with exception of what appears to be chronic leukocytosis and normocytic anemia. No overt bleeding noted. Incision site dressing clean dry & intact. Ostomy with dark liquid brown stool output. 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 Has a large bulky tumor extending from the anus to the rectosigmoid. Uneventful postoperative course thus far. Continue diet as tolerated, she reports that she is eating approximately 50% of her meals. Encouraged ambulation out of bed and hourly use of incentive spirometer. Vital signs and labs have been stable, with exception of what appears to be chronic leukocytosis and normocytic anemia. No overt bleeding noted. Incision site dressing clean dry & intact. Ostomy with dark liquid brown stool output. Agree with above assessment and plan. Patient POD #4 s/p hand assisted laparoscopic sigmoid loop colostomy. Doing overall well, tolerating diet, having stool output. VSS. ABd is benign with clean incisions, ostomy with black stool (on iron therapy) and bridge removed. Cont ostomy education. PT consult for ambulation, increase activity. Bowel regimen to prevent constipation on oral iron therapy. Surgically doing well and stable for dc with VNA services for ostomy care. F/u in office in 1-2 weeks. <Desiree Barnes PA-C - Last Filed: 11/17/23 10:55> Quality Stroke Does the patient have a stroke diagnosis?: No <Felicity Davies - Last Filed: 11/17/23 07:19> VTE Prior VTE?: No <Felicity Davies - Last Filed: 11/17/23 07:19> VTE Risk Level:: Medical - moderate - high <Felicity Davies - Last Filed: 11/17/23 07:19> VTE Device Contraindication: Treatment Not Indicated <Felicity Davies - Last Filed: 11/17/23 07:19> VTE Drug Contraindication: N/A - Med Ordered <Felicity Davies - Last Filed: 11/17/23 07:19>
[2023-11-17] MEDS: Docusate Sodium 100 MG CAPSULE PO (07:11)
[2023-11-17] MEDS: risperiDONE 1 MG TABLET PO (07:11)
[2023-11-17] MEDS: oxyCODONE HCl ER 10 MG TAB.ER.12H 20 MG PO (07:11)
[2023-11-17] MEDS: Nicotine 21 MG PATCH.TD24 TRANSDERMA (07:11)
[2023-11-17] MEDS: Folic Acid 1 MG TABLET PO (07:11)
[2023-11-17] MEDS: Ferrous Sulfate 324 MG TABLET.DR PO (07:11)
[2023-11-17] MEDS: 0.9 % Sodium Chloride Flush 3 ML SYRINGE IVFLUSH (07:12)
[2023-11-17] MEDS: Fluticasone/Vilanterol 100/25 BLST.W.DEV 1 PUFF INHALE (07:37)
[2023-11-17 07:38] VITALS: PULSE 71; RESP 14; O2SAT 93
[2023-11-17 07:50] VITALS: BP 106/60; PULSE 70; RESP 16; TEMP 36.7; O2SAT 97
[2023-11-17 09:00] VITALS: O2SAT 94
--- NOTE | 2023-11-17 09:09 | MHC.CLN ---
F/U S/P COLOSTOMY SURGERY. DIET=REGULAR. APPEARS TO BE TOLERATING CURRENT DIET. INTAKE X 3 DAYS VARIABLE, WITH AVERAGE INTAKE APPROX 50%. CONTINUE TO FOLLOW FOR DIET TOLERANCE AND PO INTAKE.
[2023-11-17 10:49] VITALS: RESP 16
[2023-11-17] MEDS: Morphine Sulfate 2 MG/ML CARTRIDGE IVPUSH (10:49)
--- NOTE | 2023-11-17 12:10 | HO.OSTOMY ---
Ostomy Consult: Follow up Teaching 52yr old female admitted to [facility] on 11/11/23 see H&P for detailed history and admission.? Consult for new ostomy teaching. ?She had a Loop Colostomy creation on 11/13/[address] Pelayo. ?Upon entry into patient's room, she is lying in her bed, she is alert and oriented x 3, she currently has no complaints. She is deaf and uses [employer] workforce development specialist used throughout entire teaching. ?Introductions were completed, she is agreeable to continuing with teaching. ? We discussed her pain control at 06/19 at the current moment, she reports she has not yet ambulated the unit. We discussed with importance of her ambulating and the benefits to her bowel function return. ?We began by discussing general knowledge about the Colostomy and questions she had. ?We discussed opening and closing the ostomy pouch. She was able to independently provide a return demonstration on an empty pouch. ?She had not yet emptied her pouch, she reported she watched over the weekend but did not participate. Patient was informed in order to d/c to home she would need to be able to empty her own pouch. She reported understanding. While at bedside discussed concern for minimal output with General Surg team who will see patient shortly. Discussed concern for lack of ambulation post surgery for 4 days and return to home - Pt consult ordered. See Pt consult for details. We discussed the importance of emptying pouch when 1/3 to 1/2 full, how to empty pouch, and lining water with toilet paper to prevent splash back. She did not want to ambulate to bathroom at this time - she performed pouch empty while in bed with container. She did so well without concern - she reported that was easy after completion. Together along with workforce development specialist still online we performed a pouch change on the stoma model. Her pouch was intact and no leaking noted. Her pouch was changed yesterday based on RN discussion. She was also educated on when to contact supervisor electronic testing/Dr Pelayo's office/seek emergency medical treatment. Aware that Rx written for pouches and rings will be sent by Outpt nurse to [facility] for home delivery.? She requests this be sent to her sisters home in [place] as this is where she will be staying. Reviewed written education with patient and left at bedside for further review. ?She did not watch the education videos supplied by [facility], but understanding where to find the videos should she want to watch. Permission was granted for pouch assessment and no leak was noted.? Stoma is red and appears viable through pouch with clear bridge no longer in place.? She reported having no questions at this time.Patient aware of plan for d/c to home with VNA services to assist with care and teaching. She will benefit from VNA services at time of discharge. ?All questions and concerns addressed at this time.
--- NOTE | 2023-11-17 12:32 | HE.CSO ---
pt being dcd today with hemanthk sister maikol transporting pt
[2023-11-17] MEDS: Acetaminophen 325 MG TABLET 650 MG PO (13:03)
--- NOTE | 2023-11-17 13:53 | PC.NURSE ---
Sister at bedside, this Nurse went over f/c maintance, print out also give, return demonstration done by patient. Overnight bag changed to leg bag, secured. Urology number given to patient for follow up. Extra supplies given. All questions answered.
--- NOTE | 2023-11-17 16:09 | W.MHC.F2F ---
Service Date Service Date: 11/17/23 Encounter Date of encounter: 11/17/23 Encounter: anal canal cancer,abd pain Reasons for Services Signs and symptoms assessed: abd pain Reason for [facility]: wound care (colostomy care), medication management, medication treatment and teach disease management MD Overseeing Care: Sneha Li Homebound: Leaving the home is medically contraindicated at this time without the asist of a device and/or another person due th the listed conditions above and below. Reason homebound: weakness related to hospital stay Homebound supporting statement: Patient is generalised weak post hospitlisation and need help with going to appointments and labs draws as well as colostomy care. Certification: Based on the above findings, I certify that this patient is confined to the home and needs intermittent [facility] care, physical therapy and/or speech therapy, or continues to need occupational therapy. The patient is under my care, and I have initiated the establishment of the plan of care. The patient will be followed by a physician who will periodically review the plan of care. Time Spent With Patient Time: Total time managing care of this patient today ____ minutes.
== END 2023-11-17 13:57 | disposition home health service (06) | DRG 330 ==
LOC: HO.ED 16:54 → HO.EDOVER 18:29 → HO.S3 19:34
PROVIDERS: Physician Assistant Medical; Surgery; Admitting Provider Physician Assistant; Emergency Provider Emergency Medicine; PCP Family Medicine; Visit Provider Internal Medicine
PROC: 0D1N0Z4 Bypass Sigmoid Colon to Cutaneous, Open Approach (ICD-10-PCS; CPT 49320; principal; 2023-11-13 10:00)
DX: C21.8 Malignant neoplasm of overlapping sites of rectum, anus and anal canal (principal); C77.8 Secondary and unspecified malignant neoplasm of lymph nodes of multiple regions; K56.609 Unspecified intestinal obstruction, unspecified as to partial versus complete obstruction; K59.00 Constipation, unspecified; F20.9 Schizophrenia, unspecified; H90.3 Sensorineural hearing loss, bilateral; D50.9 Iron deficiency anemia, unspecified; R33.9 Retention of urine, unspecified; J45.30 Mild persistent asthma, uncomplicated; F41.9 Anxiety disorder, unspecified; F32.A Depression, unspecified; I95.9 Hypotension, unspecified; Z87.891 Personal history of nicotine dependence; Z79.51 Long term (current) use of inhaled steroids; Z79.899 Other long term (current) drug therapy
CPT/HCPCS: 36415; 72197; 74176; 80048; 80076; 83690; 83735; 85014; 85018; 85025; 86850; 86900; 86901; 97162; 99285; A9585; C1758; J0131; J0665; J0690; J1100; J1171; J1644; J2003; J2250; J2270; J2405; J2598; J2704; J2795; J3010; J7120

== ENCOUNTER → 2023-11-11 17:56 | Outpatient (BNV) | payer OTHER, SELFPAY | PROVIDERS: Admitting Provider Physician Assistant; Emergency Provider Emergency Medicine; PCP Family Medicine; Visit Provider Internal Medicine | DX: C21.1 Malignant neoplasm of anal canal (principal) | CPT/HCPCS: 99222 ==

== ENCOUNTER → 2023-11-11 17:56 | Outpatient (BNV) | payer OTHER, SELFPAY | PROVIDERS: Admitting Provider Physician Assistant; Emergency Provider Emergency Medicine; PCP Family Medicine; Visit Provider Surgery | DX: Z09 Encounter for follow-up examination after completed treatment for conditions other than malignant neoplasm (principal) | CPT/HCPCS: 44208; 99024; 99222; 99429; 99499 ==

== ENCOUNTER → 2023-11-11 17:56 | Outpatient (BNV) | payer OTHER, SELFPAY | PROVIDERS: Admitting Provider Physician Assistant; Emergency Provider Emergency Medicine; PCP Family Medicine; Visit Provider Physician Assistant | DX: C21.1 Malignant neoplasm of anal canal (principal) | CPT/HCPCS: 99223; 99231; 99232; 99239; 99499; G0180 ==

== ENCOUNTER → 2023-11-11 17:56 | Outpatient (BNV) | payer OTHER, SELFPAY | PROVIDERS: Admitting Provider Physician Assistant; Emergency Provider Emergency Medicine; PCP Family Medicine; Visit Provider Urology | DX: K59.00 Constipation, unspecified (principal); C21.1 Malignant neoplasm of anal canal; R33.9 Retention of urine, unspecified | CPT/HCPCS: 99222 ==

== ENCOUNTER 2023-11-28 10:34 | Outpatient (AMB) | payer OTHER, SELFPAY ==
--- NOTE | 2023-11-28 10:45 | MHC.OFFVIS ---
Intake Visit Reasons: ER Follow up and VT Intake Note: Patient is present for ER F/U AND VT Urology Medication:NONE Antibiotic Allergy:NONE Blood Thinner:NONE Molecular Biology Professor Required: No Allergies No Known Allergies [No Known Allergies*] Allergy (Verified 12/01/23 15:54) HPI Comments Details: 52-year-old female with history of schizophrenia, anxiety/depression, metastatic cancer likely anal in origin and mild persistent asthma who is deaf and requires ASL interpretation here for voiding trial. Patient failed voiding trial 14 fr catheter placed. Start tamsulosin, fu in 4 weeks for repeat voiding trial with Urology nurse [facility] Medical History Squamous cell carcinoma of anal canal Schizophrenia Asthma History of gallbladder disease Chronic pain of left knee Low vitamin D level Dyslipidemia Mental health disorder Hx of Lyme disease Congenital deafness Surgical History Hx of surgical procedure (~11/13/23) Hx of tubal ligation Hx of appendectomy History of cholecystectomy Hx of foot surgery Family History Mother Hypertension Social History Household Members: None Housing: Apartment Are you a primary manager critical care to a significant other at home: No Do you presently have visiting nurse or other home services: Yes (VNA) Alcohol intake: former Patient Tobacco Use Status: Former Tobacco user Tobacco use type: Cigarette Cigarette Packs Per Day: 1 Years Smoked: 30 service: No Current occupational status: disabled Female Reproductive History Menstrual Age of Menarche: 15 Review of Systems Const All systems reviewed & are unremarkable except as noted in HPI and below Reports no additional complaints Eyes Reports no additional complaints ENT Reports no additional complaints Card Reports no additional complaints Resp Reports no additional complaints GI Reports no additional complaints Reports as per HPI Musc Reports no additional complaints Skin/Breast Reports system reviewed and no additional complaints, except as documented Neuro Reports no additional complaints Psych Reports no additional complaints Endo Reports no additional complaints Augusto/Lymph Reports no additional complaints Aller/Immun Reports no additional complaints Physical Exam Const General: cooperative and no acute distress Orientation/consciousness: patient oriented x3 HEENT Head: Yes normal to inspection, Yes normocephalic and Yes atraumatic Eyes Conjunctivae: conjunctivae normal Neck Neck: Yes normal visual inspection and Yes trachea midline Chest Chest palpation & inspection: normal inspection of the chest Resp Effort & Inspection: normal respiratory effort Cardio Rate: regular rate GI Inspection: Yes normal to inspection Palpation (GI): Soft to palpation General: No no CVA tenderness Back/Spine/Pelvis Back: No no CVA tenderness Neuro General: patient oriented x3 Extrem General: No edema Psych Appearance: grossly normal Office Procedures Bladder/Catheter Procedure Details: Patient presents to office for new patient visit and voiding trial. Approximately 120mls instilled into bladder through catheter, patient tolerated instillation well. Removed 16fr rocha catheter, patient tolerated well. Patient able to void approximately [address] Hanna- Dr. Hanna to room to speak with patient. Per DR. Hanna insert 14 fr rocha catheter and have patient begin tamsulosin daily at bedtime, come back to office in 4 weeks for repeat VT. 14 fr rocha catheter 10 ml balloon with blue plug inserted, patient tolerated well. Explained to come back in 4 weeks for another VT, patient stated she understood and was agreeable. Appt booked at checkout. Medication sent for patient 24927-[id number] of Bladder 61072-Hfrpyf Temporary Bladder Catheter Procedure code (CPT) selection complete Assessment & Plan Assessment & Plan (1) Squamous cell carcinoma of anal canal: Code(s): C21.1 - Malignant neoplasm of anal canal Category: Medical (2) Urinary retention: Code(s): R33.9 - Retention of urine, unspecified Category: Medical Plan tamsulosin, FU in 4 weeks for repeat voiding trial with urology nurse Orders: Orders AMB Bladder/Catheter Procedure 11/28/23 R33.9 - Retention of urine, unspecified Medications: New tamsulosin 0.4 mg PO BEDTIME 30 caps 1RF 30 days Coding Level of Care Code Est Pt Level 4 (04618) Diagnoses Squamous cell carcinoma of anal canal C21.1 Urinary retention R33.9 CPT Codes Bladder/Catheter Procedure - CPT: 90289-Rtmrpdiren of Bladder ([id number]) Bladder/Catheter Procedure - CPT: 73988-Zkxspj Temporary Bladder Catheter ([id number])
== END 2023-11-28 12:01 | disposition home or self-care (01) ==
PROVIDERS: PCP Family Medicine; Visit Provider Urology
DX: R33.9 Retention of urine, unspecified (principal)
CPT/HCPCS: 51700; 99214

== ENCOUNTER → 2023-11-28 10:34 | Outpatient (BNVA) | payer OTHER, SELFPAY | PROVIDERS: PCP Family Medicine; Visit Provider Urology | DX: R33.9 Retention of urine, unspecified (principal); Z46.6 Encounter for fitting and adjustment of urinary device; Z96.0 Presence of urogenital implants | CPT/HCPCS: 51700; 99212 ==

== ENCOUNTER 2023-12-01 10:18 | Day surgery (SDC) | payer OTHER, SELFPAY ==
--- NOTE | 2023-11-28 08:51 | HO.ANESPROP2 ---
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 with GA-ETT 7 PMFSH Active Problems Active Problems: All Active Problems Carcinoma of anal canal (Acute) Squamous cell carcinoma of anal canal (Acute) S/P colostomy (Acute) Postop check (Acute) Urinary retention (Acute) Obstipation (Acute) Pain management (Acute) Encounter for well woman exam with routine gynecological exam (Acute) Leucocytosis (Chronic) Past Medical History Medical History (Updated 11/25/23 @ 15:58 by Bhumi Rodriguez [facility]) Squamous cell carcinoma of anal canal Schizophrenia Asthma History of gallbladder disease Chronic pain of left knee Low vitamin D level Dyslipidemia Mental health disorder Hx of Lyme disease Congenital deafness Family History Family History Mother Hypertension Family history of problems with anesthesia: No Surgical History Surgical History (Updated 11/28/23 @ 09:14 by GRETTA Cerna) Hx of surgical procedure (~11/13/23) Hx of tubal ligation Hx of appendectomy History of cholecystectomy Hx of foot surgery History of Problems with Anesthesia: No Social History Social History (Updated 11/27/23 @ 13:53 by Kathie Fernando RN) Household Members: None Housing: Apartment Are you a primary medicare coordinator to a significant other at home: No Do you presently have visiting nurse or other home services: Yes (VNA) Alcohol intake: former Patient Tobacco Use Status: Former Tobacco user Tobacco use type: Cigarette Cigarette Packs Per Day: 1 Years Smoked: 30 service: No Current occupational status: disabled Meds Allergies Allergy/AdvReac Type Severity Reaction Status Date / Time No Known Allergies Allergy Verified 11/28/23 10:46 [No Known Allergies*] Home Medications ?Medication ?Instructions ?Recorded ?Confirmed ?Last Taken ?Type albuterol sulfate 90 mcg/actuation 2 puff PO Q6H PRN Wheezing 02/25/20 11/27/23 Unknown History aerosol inhaler risperidone 4 mg tablet 4 mg PO BEDTIME 02/25/20 11/27/23 11/10/23 History lorazepam 0.5 mg tablet 0.5 mg PO BID 07/17/23 11/27/23 11/11/23 History acetaminophen 500 mg tablet 500 - 1,000 mg PO Q8-12H PRN Pain 10/28/23 11/27/23 Unknown History fluticasone 500 mcg-salmeterol 50 1 inh inhalation BID 10/28/23 11/27/23 11/11/23 History mcg/dose blistr powdr for inhalation (Advair Diskus) nicotine 21 mg/24 hr daily 1 patch transdermal DAILY 10/28/23 11/27/23 11/11/23 History transdermal patch risperidone 1 mg tablet 1 mg PO BID 10/28/23 11/27/23 11/11/23 History Exam Height,Weight and Vital Signs: Height 5 ft 2 in Pertinent Lab Results Pertinent Lab Results: Laboratory Tests 11/14/23 11/21/23 07:45 10:50 WBC 17.6 H Hgb 11.4 L Hct 35.9 L Plt Count 421 H D Sodium 141 Potassium 3.7 Chloride 106 Carbon Dioxide 26 BUN 7 L Creatinine 0.66 Assessment and Plan Assessment Anesthesia Assessment: Chart Reviewed Final Anesthetic Review Family History of Problems with Anesthesia: No History of Problems with Anesthesia: No Documented by User: Anali Pizano MD 12/01/23 13:33 [facility] Past Medical History Medical History (Updated 11/25/23 @ 15:58 by Bhumi Rodriguez [facility]) Squamous cell carcinoma of anal canal Schizophrenia Asthma History of gallbladder disease Chronic pain of left knee Low vitamin D level Dyslipidemia Mental health disorder Hx of Lyme disease Congenital deafness Family History Family History Mother Hypertension Surgical History Surgical History (Updated 11/28/23 @ 09:14 by Charlotte Jiménez Nico) Hx of surgical procedure (~11/13/23) Hx of tubal ligation Hx of appendectomy History of cholecystectomy Hx of foot surgery Social History Social History (Updated 11/27/23 @ 13:53 by Kathie Fernando RN) Household Members: None Housing: Apartment Are you a primary medicare coordinator to a significant other at home: No Do you presently have visiting nurse or other home services: Yes (VNA) Alcohol intake: former Patient Tobacco Use Status: Former Tobacco user Tobacco use type: Cigarette Cigarette Packs Per Day: 1 Years Smoked: 30 service: No Current occupational status: disabled Meds Allergies Allergy/AdvReac Type Severity Reaction Status Date / Time No Known Allergies Allergy Verified 11/28/23 10:46 [No Known Allergies*] Home Medications ?Medication ?Instructions ?Recorded ?Confirmed ?Last Taken ?Type albuterol sulfate 90 mcg/actuation 2 puff PO Q6H PRN Wheezing 02/25/20 11/27/23 Unknown History aerosol inhaler risperidone 4 mg tablet 4 mg PO BEDTIME 02/25/20 11/27/23 11/10/23 History lorazepam 0.5 mg tablet 0.5 mg PO BID 07/17/23 11/27/23 11/11/23 History acetaminophen 500 mg tablet 500 - 1,000 mg PO Q8-12H PRN Pain 10/28/23 11/27/23 Unknown History fluticasone 500 mcg-salmeterol 50 1 inh inhalation BID 10/28/23 11/27/23 11/11/23 History mcg/dose blistr powdr for inhalation (Advair Diskus) nicotine 21 mg/24 hr daily 1 patch transdermal DAILY 10/28/23 11/27/23 11/11/23 History transdermal patch risperidone 1 mg tablet 1 mg PO BID 10/28/23 11/27/23 11/11/23 History Exam Airway Mallampati Class: II TM Dist: >3cm Neck ROM: Full Assessment and Plan Assessment Anesthesia Assessment: Anesthesia Plan Discussed Final Anesthetic Review NPO: Yes ASA Class: III Final Preanesthetic Review: No Changes in Pt Med Stat, Meds/Allgs Chart Reviewed, Consent Obtained/Reviewed and Anes Risks/Benef Reviewed Patient Risk: Intermediate Procedure Risk: Low Anesthetic Plan Anesthetic Plan: MAC: Disposition: Standard PACU
--- NOTE | ~2023-12-01 | IR_ITS ---
CLINICAL HISTORY: Colorectal cancer. The patient presents to interventional radiology for placement of a port for chemotherapy. PROCEDURES: 1. Real-time ultrasound-guided access into the right internal jugular vein after documentation of selected vessel patency, and permanent image storing in the patient records. 2. Placement of a 6.0 Lithuanian single-lumen slim power port. CLINICIAN: Shayne Parish PA-C MEDICATIONS: - Lidocaine 1% 10 mL SQ -Antibiotics: Ancef 2g -For additional details, please see nursing and anesthesia flowsheet. Complications: None. Estimated blood loss: <5 ml Specimens: None. Contrast: None. Fluoroscopy time: 0.5 min PROCEDURE NOTE: The procedure, risks, benefits, and alternatives were carefully explained to the patient and written informed consent was obtained. The patient was placed supine on the fluoroscopy table. A timeout was performed. The right neck and chest was prepped and draped in usual sterile fashion. Maximum barrier technique was utilized. Local anesthesia was administered to the access site with 1% lidocaine. Under ultrasound guidance, the right internal jugular vein was accessed with a 5 fr micropuncture set. A 0.035 in wire was advanced into the IVC. A peel-away sheath was advanced over the wire and into the SVC, and the wire was removed. Next, subcutaneous lidocaine was administered to the chest. The port pocket was created after the skin incision, utilizing blunt dissection. Using blunt dissection, a subcutaneous tunnel was created that connects from the port pocket to the venotomy site. Through the peel-away sheath, the 6.0 Lithuanian port catheter was placed. The catheter position was verified with fluoroscopy to be at the superior vena cava/right atrial junction. The port was connected to the catheter and was placed in the pocket. The venotomy site was closed with a 3-0 Vicryl subcutaneous suture. The port incision site was closed with interrupted 3-0 Vicryl subcutaneous sutures and surgical glue. Prior to closing the skin, 1 g of Ancef solution was placed in the pocket. The port was tested, flushed, and packed with heparin per routine protocol. The patient tolerated the procedure well. The patient was stable after the procedure and was transferred to the PACU. A permanent image of the ultrasound the neck and fluoroscopic image of the chest was saved and sent to PACS. FINDINGS: 1. Patent right internal jugular vein 2. Placement of a 6.0 Lithuanian single lumen slim power port. 3. Port flushes and aspirates very well with a 10 mL syringe. No pneumothorax. IR/IR cvc insert tunnel w prt/dairy farm manager IMPRESSION: Placement of a 6.0 Lithuanian single-lumen slim power port. PLAN: - The patient will be discharged home when stable by sedation protocol. - Port may be used immediately. This procedure was performed by Shayne Parish PA-C, and directly supervised by Dr. Forbes Electronically signed by: Sky Forbes MD 12/04/2023 02:10 PM EDT
[2023-12-01 11:29] VITALS: BP 89/58; PULSE 77; RESP 16; TEMP 37; O2SAT 95
[2023-12-01 11:30] VITALS: BP 102/68; PULSE 80
[2023-12-01 11:31] VITALS: BMI 21.9
[2023-12-01] MEDS: Lactated Ringers 1,000 ML 100 ML IVCONT (11:53)
[2023-12-01 13:30] VITALS: BP 83/62; PULSE 83; RESP 17; TEMP 36.4; O2SAT 95
[2023-12-01 13:45] VITALS: BP 95/57; PULSE 86; RESP 17; O2SAT 94
[2023-12-01] MEDS: oxyCODONE HCl Immed Release 5 MG TABLET PO (13:58)
[2023-12-01 13:59] VITALS: BP 92/68; PULSE 83; RESP 17; TEMP 36.4; O2SAT 96
== END 2023-12-01 14:15 | disposition home or self-care (01) ==
PROVIDERS: Physician Assistant Surgical; PCP Family Medicine; Visit Provider Student in an Organized Health Care Education/Training Program
DX: Z45.2 Encounter for adjustment and management of vascular access device (principal); C21.1 Malignant neoplasm of anal canal
CPT/HCPCS: 36561; 99212; C1769; C1788; J0690; J1100; J1642; J1644; J2003; J2250; J2405; J2704; J3010

== ENCOUNTER → 2023-12-01 11:40 | Outpatient (BNV) | payer OTHER, SELFPAY | PROVIDERS: PCP Family Medicine; Visit Provider Physician Assistant Surgical | DX: C18.9 Malignant neoplasm of colon, unspecified (principal); Z45.2 Encounter for adjustment and management of vascular access device | CPT/HCPCS: 36561; 76937 ==

== ENCOUNTER 2023-12-01 15:45 | Outpatient (AMB) | payer OTHER, SELFPAY ==
--- NOTE | 2023-12-01 15:46 | A.OFFVIS_ITS ---
Vital Signs 12/01/23 15:55 Height 5 ft 2 in Weight 119 lb 0.794 oz BMI 21.8 Pulse 80 Intake Visit Reasons: s/p hand assisted lap sigmoid loop colostomy Intake Note: This patient presents for post-op assessment status post hand assisted laparoscopic sigmoid loop colostomy. Pt c/o; here for aixa removal, no concerns regarding the wound, no changes since last visit Hazmat Technician Required: Yes Hazmat Technician Language: Section Crews Activities Clerk Name: Kenia Information Interpreted: non-clinical & clinical Accompanied by: Sister Allergies No Known Allergies [No Known Allergies*] Allergy (Verified 12/01/23 15:54) HPI HPI s/p hand assisted lap sigmoid loop colostomy: Details: 52-year-old female here for a postop visit. 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 She had impending obstruction from the mass and had been unable to have good bowel movements. She therefore underwent hand assisted laparoscopic sigmoid loop colostomy last 11/13/2023. She denies any current complaints at this time. She has congenital deafness. She had undergone port placement this morning as she is going to undergo chemotherapy and radiation. She does describe pain in the anus. [facility] Medical History Squamous cell carcinoma of anal canal Schizophrenia Asthma History of gallbladder disease Chronic pain of left knee Low vitamin D level Dyslipidemia Mental health disorder Hx of Lyme disease Congenital deafness Surgical History Hx of surgical procedure (~11/13/23) Hx of tubal ligation Hx of appendectomy History of cholecystectomy Hx of foot surgery Family History Mother Hypertension Social History Household Members: None Housing: Apartment Are you a primary resident care technician to a significant other at home: No Do you presently have visiting nurse or other home services: Yes (VNA) Alcohol intake: former Patient Tobacco Use Status: Former Tobacco user Tobacco use type: Cigarette Cigarette Packs Per Day: 1 Years Smoked: 30 service: No Current occupational status: disabled Female Reproductive History Menstrual Age of Menarche: 15 Review of Systems Const Denies chills and Denies fever(s) Card Denies chest pain GI Denies abdominal pain Physical Exam Const Other: On wheelchair General: comfortable and no acute distress Resp Effort & Inspection: normal respiratory effort GI Other: Stoma functioning well, incisions well healed, not infected Palpation (GI): Soft to palpation, not firm, nontender and no guarding Assessment & Plan Assessment & Plan (1) Squamous cell carcinoma of anal canal: Code(s): C21.1 - Malignant neoplasm of anal canal Category: Medical Plan: Status post loop colostomy for impending obstruction. She is doing well postoperatively. Her stoma is functioning well. She has had no problems with the colostomy appliance I removed all her skin aixa. The incisions are well healed She is going to undergo chemotherapy and radiation. She had her port placed today. She is being seen regularly by Dr. Dorsey of Oncology . We will see her again in the office in about 6 months. Coding Level of Care Code Global (81833) Diagnoses Squamous cell carcinoma of anal canal C21.1
[2023-12-01 15:55] VITALS: PULSE 80; BMI 21.8
== END 2023-12-01 16:13 | disposition home or self-care (01) ==
PROVIDERS: PCP Family Medicine; Visit Provider Surgery
DX: C21.1 Malignant neoplasm of anal canal (principal)
CPT/HCPCS: 99024

== ENCOUNTER → 2023-12-17 10:30 | Outpatient (BNVA) | payer OTHER, SELFPAY | PROVIDERS: PCP Family Medicine; Visit Provider Urology | DX: R33.9 Retention of urine, unspecified (principal) | CPT/HCPCS: 51700; 51798 ==

== ENCOUNTER 2024-04-01 15:48 | Outpatient (AMB) | payer OTHER, SELFPAY ==
--- NOTE | 2024-04-01 15:52 | A.OFFVIS_ITS ---
Intake Visit Reasons: 6w follow up/PVR Intake Note: Patient presents today for voiding trial Urology Medication: Tamsulosin Antibiotic Allergy:NONE Blood Thinner:NONE Cage Supervisor Required: No Accompanied by: Unknown Allergies No Known Allergies [No Known Allergies*] Allergy (Verified 04/01/24 16:59) Medication List - Last Reviewed 04/01/24 by Martin Agosto acetaminophen 500 - 1,000 mg PO Q8-12H PRN ascorbic acid (vitamin C) 250 mg PO BID clotrimazole-betamethasone 1-0.05 % 1 appl topical BID 2 weeks lorazepam 0.5 mg PO BID melatonin 6 mg (2 x 3 mg) PO BEDTIME PRN nicotine 1 patch transdermal DAILY oxycodone 10 mg PO Q4H PRN oxycodone ER (OxyContin) 20 mg (2 x 10 mg) PO BID polyethylene glycol 3350 17 grams PO DAILY PRN risperidone 4 mg PO BEDTIME risperidone 1 mg PO BID solifenacin (Vesicare) 10 mg PO DAILY sulfamethoxazole-trimethoprim 800-160 mg (Bactrim DS) 1 tab PO BID tamsulosin 0.4 mg PO BEDTIME 30 days HPI Comments Details: 04/01/24--May is a 53-year-old female who is deaf; history of schizophrenia, anxiety/depression, 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 Rocha is in place patient has failed voiding trials. On examination there is excoriation of her perineum. Nursing staff has changed Rocha catheter 16 Argentine placed. We will empirically place her on Bactrim. We will start VESIcare for bladder spasms. Lotrisone ointment to apply to perineum. Follow-up in 2 weeks for nursing staff to review the perineum. 11/28/23--52-year-old female with history of schizophrenia, anxiety/depression, metastatic cancer likely anal in origin and mild persistent asthma who is deaf and requires ASL interpretation here for voiding trial. Patient failed voiding trial 14 fr catheter placed. Start tamsulosin, fu in 4 weeks for repeat voiding trial with Urology nurse [facility] Medical History Squamous cell carcinoma of anal canal Schizophrenia Asthma History of gallbladder disease Chronic pain of left knee Low vitamin D level Dyslipidemia Mental health disorder Hx of Lyme disease Congenital deafness Surgical History Hx of surgical procedure (~11/13/23) Hx of tubal ligation Hx of appendectomy History of cholecystectomy Hx of foot surgery Family History Mother Hypertension Social History Household Members: None Housing: Apartment Are you a primary client care manager to a significant other at home: No Do you presently have visiting nurse or other home services: Yes (VNA) Alcohol intake: former Patient Tobacco Use Status: Former Tobacco user Tobacco use type: Cigarette Cigarette Packs Per Day: 1 Years Smoked: 30 service: No Current occupational status: disabled Female Reproductive History Menstrual Age of Menarche: 15 Review of Systems Const All systems reviewed & are unremarkable except as noted in HPI and below Office Procedures Bladder/Catheter Procedure Details: Patient in the office for voiding trial. 16Fr rocha catheter in place and instilled 60ml of sterile water. After first 60ml patient immediately had urge to void and leaked urine out around the catheter and was unable to control. Dr. Hanna notified and in room to assess. She advised to remove catheter and insert new catheter. New 16fr rocha catheter with 10ml inserted. Educated patient and career technology teacher to use flip valve. Attempted to obtain clean urine specimen for culture, but unable due to patient emptying bladder. Plan for patient to return in 4 weeks for a cath change. Patient will also return in 2 weeks for a skin check due to perineum area moderately reddened and excoriated. Patient and career technology teacher verbalized understanding of plan. [id number] of Bladder [id number]-Pyrnso Temporary Bladder Catheter Procedure code (CPT) selection complete Assessment & Plan Assessment & Plan (1) Squamous cell carcinoma of anal canal: Code(s): C21.1 - Malignant neoplasm of anal canal Category: Medical (2) Urinary retention: Code(s): R33.9 - Retention of urine, unspecified Category: Medical Plan Sixteen Argentine catheter with flip valve patient to drain every 3 hours. Bactrim ds b.i.d. for 5 days, VESIcare 10 mg daily, follow-up in 2 weeks for skin check with nursing staff. Follow-up in 4 weeks for catheter change with nursing staff and MD GALLEGOS. Orders: Orders AMB Bladder/Catheter Procedure Today R33.9 - Retention of urine, unspecified Medications: New clotrimazole-betamethasone 1-0.05 % use cream on perineum twice daily 1 appl topical BID 2 weeks 45 grams 1RF solifenacin (Vesicare) 10 mg PO DAILY 90 tabs 3RF sulfamethoxazole-trimethoprim 800-160 mg (Bactrim DS) 1 tab PO BID 10 tabs 0RF Coding Level of Care Code Est Pt Level 4 (64803) Diagnoses Squamous cell carcinoma of anal canal C21.1 Urinary retention R33.9 CPT Codes Bladder/Catheter Procedure - CPT: 92977-Ztspapvzmk of Bladder ([id number]) Bladder/Catheter Procedure - CPT: 95555-Tmdkxf Temporary Bladder Catheter ([id number])
--- OUTSIDE RECORDS SUMMARY | 2024-04-01 16:42 | XMS_ITS | Encounter Summary ---
Author Organization [employer] Address [address] [place] [address] Care Team Providers Care Set Making Machine Operator Name Role Phone Sneha Li MD Primary Care Provider [phone]- [phone] Encounter Details Date Type Department Care Team (Latest Contact Info) Description 03/08/2024 1:15 PM EST - 03/08/2024 11:59 PM EST Hospital Encounter [facility] Radiation Oncology [address] [phone] Discharge Disposition: Home or Self Care Social History Tobacco Use Types Packs/Day Years Used Date Smoking Tobacco: Former Cigarettes Smokeless Tobacco: Never Alcohol Use Standard Drinks/Week Comments Not Currently 0 (1 standard drink = 0.6 oz pur e alcohol) Interpersonal Safety Answer Date Record ed Physical Abuse 02/17/2024 Verbal Abuse 02/17/2024 Comments Unknown Sex and Gender Information Value Date Recorded Sex Assigned at Not on file Legal Sex Female 8:10 PM EST Gender Identity Not on file Sexual Orientation Not on file documented as of this encounter Functional Status * Are you deaf or do you have serious difficulty hearing? Answer Date of Assessment Author Yes 02/05/2024 3:20 PM EST Aubrey Gomez RN * Are you blind or do you have serious difficulty seeing, even when wearing glasses? Answer Date of Assessment Author No 02/05/2024 3:20 PM Aubrey Millan RN * Do you have serious difficulty walking or climbing stairs? Answer Date of Assessment Author Yes 02/05/2024 3:20 PM Aubrey Millan RN * Do you have serious difficulty dressing or bathing? Answer Date of Assessment Author Yes 02/05/2024 3:20 PM Aubrey Millan RN * Because of a physical, mental, or emotional condition, do you have serious difficulty doing errandsalone such as visiting the doctor? Answer Date of Assessment Author Yes 02/05/2024 3:20 PM Aubrey Millan RN documented as of this encounter Medications at Time of Discharge ferrous sulfate 325 mg (65 mg elemental iron) tablet Take 1 tablet (325 mg total) by mouth 2 times daily. 10/20/2023 fludrocortisone (FLORINEF) 0.1 mg tablet Take 1 tablet (0.1 mg total) by mouth 1 (one) time each day. 30 each 03/05/2024 04/04/2024 fluticasone propion-salmeter oL (ADVAIR DISKUS) 500-50 mcg/dose diskus inhaler Inhale 500 mcg by mouth 2 times daily. 10/08/2023 folic acid (FOLVITE) 1 mg tablet Take 1 tablet (1,000 mcg total) by mouth daily. 10/20/2023 hydrocortisone (ANUSOL-HC) 2.5 % rectal cream 11/08/2023 LORazepam (ATIVAN) 0.5 mg tablet Take 1 tablet (0.5 mg total) by mouth 2 (two) times a day if needed for anxiety. melatonin 3 mg tablet Take 2 tablets (6 mg total) by mouth at bedtime as needed. 11/08/2023 midodrine (PROAMATINE) 5 mg tablet Take 1 tablet (5 mg total) by mouth 3 (three) times a day before meals. 90 each 02/10/2024 multivitamin tablet Take 1 tablet by mouth 1 (one) time each day. 30 each 03/04/2024 04/03/2024 ondansetron (ZOFRAN) 8 mg tabletIndication s:prevention of chemotherapy-ind uced nausea and vomiting Take 1 tablet (8 mg total) by mouth every 8 (eight) hours if needed for nausea or vomiting. oxyCODONE (OxyCONTIN) 20 mg 12 hr abuse-deterrent tablet Take 1 tablet (20 mg total) by mouth every 12 (twelve) hours. Do not crush, chew, or split. oxyCODONE (ROXICODONE) 5 mg immediate release tablet Take 1 tablet (5 mg total) by mouth every 4 (four) hours if needed for severe pain or moderate pain. polyethylene glycol (MIRALAX) 17 gram packet Take 17 g by mouth 1 (one) time each day if needed for constipation. 51 g 03/03/2024 04/02/2024 risperiDONE (RisperDAL) 1 mg tablet Take 1 tablet (1 mg total) by mouth 2 (two) times a day. 08/10/2022 risperiDONE (RisperDAL) 4 mg tablet Take 1 tablet (4 mg total) by mouth at bedtime. thiamine (VITAMIN B-1) 100 mg tablet Take 1 tablet (100 mg total) by mouth 1 (one) time each day. 30 tablet 03/04/2024 04/03/2024 magnesium oxide (MAG-OX) 400 mg (241.3 elemental magnesium) tablet Take 1 tablet (400 mg total) by mouth 1 (one) time each day for 10 days. 10 each 03/03/2024 03/13/2024 documented as of this encounter Discharge Disposition Disposition Code Departure Means Destination Home or Self Care documented in this encounter Plan of Treatment Upcoming Encounters Date Type Department Care Team (Late st Contact Info) Description 04/13/2024 1:30 PM EST Appointment [facility] Radiation Oncology [address] [place] [address] 2nd [place] [phone] Samina Diaz MD [address] [place] [address] 05/04/2024 11:20 AM EDT Office Visit Breast Care [facility] 271 [facility] [address] [place] [phone] Lalito Miller MD 271 [facility] [address] [place] [address] documented as of this encounter Procedures Procedure Name Priority Date/Time Associated Diagnosis Comments RAD ONC MSQ TREATMENT SUMMARY Routine 03/08/2024 1:45 PM EST documented in this encounter Results * Rad Onc Msq Treatment Summary (03/08/2024 1:45 PM EST) Treatment Site Pelvis/Anus MOS AIQ RADIATION ONCOLOGY Course Number 1 MOSAIQ RADIATION ONCOLOGY Prescribed Fractional Dose 180 cGray MOSAIQ RADIATION ONCOLOGY Prescribed Total Dose 5,400 cGray MOSAIQ RADIATION ONCOLOGY Actual Fractions Delivered 16 MOSAIQ RADIATION ONCOLOGY Prescription Pattern Comment Empty Colostomy Bag Pre TX. custom bolus, see plan MOSAIQ RADIATION ONCOLOGY Actual Session Delivered Dose 180 cGray MOSAIQ RADIATION ONCOLOGY Actual Total Dose 2,880 cGray MOSAIQ RADIATION ONCOLOGY Prescribed Technique 4 ARC VMAT MOSAIQ RADIATION ONCOLOGY Elapsed Days 28 MOSAIQ RADIATION ONCOLOGY Start Date 02/09/2024 MOSAIQ RADIATION ONCOLOGY Last Date 03/08/2024 MOSAIQ RADIATION ONCOLOGY Prescribed Number of Fractions 30 MOSAIQ RADIATION ONCOLOGY 03/08/2024 1:45 PM EST us Physician Radiation Oncology RADIATION ONCOLO GY ORDERABLES Final Result MOSAIQ RADIATION ONCOLOGY documented in this encounter Visit Diagnoses Not on filedocumented in this encounter Care Teams Set Making Machine Operator Relationship Specialty Start Date End Date Sneha Li MD [address] [place] [address] [place] [phone] PCP - General 01/23/23 documented as of this encounter
--- OUTSIDE RECORDS SUMMARY | 2024-04-01 16:42 | XMS_ITS | Encounter Summary ---
Author Organization [employer] Address [address] [place] [address] Care Team Providers Care Foundation Assistant Name Role Phone Sneha Li MD Primary Care Provider +1- [phone] Encounter Details Date Type Department Care Team (Latest Contact Info) Description 03/15/2024 1:15 PM EST - 03/15/2024 11:59 PM EST Hospital Encounter [facility] Radiation Oncology [address] [phone] Discharge Disposition: Home or Self Care Social [...] time each day. 30 tablet 03/04/2024 04/03/2024 documented as of this encounter Discharge Disposition Disposition Code Departure Means Destination Home or Self Care documented in this encounter Plan of Treatment Upcoming Encounters Date Type Department Care Team (Late st Contact Info) Description 04/13/2024 1:30 PM EST Appointment [facility] Radiation Oncology 271 [facility] 2nd [place] [phone] Samina Diaz MD 271 [place] [address] 05/04/2024 11:20 AM EDT Office Visit Breast Care [facility] [address] [facility] [address] [place] [address] Lalito Miller MD 271 [facility] [address] [place] [address] documented as of this encounter Procedures Procedure Name Priority Date/Time Associated Diagnosis Comments RAD ONC MSQ TREATMENT SUMMARY Routine 03/15/2024 1:57 PM EST documented in this encounter Results * Rad Onc Msq Treatment Summary (03/15/2024 1:57 PM EST) Treatment Site Pelvis/Anus MOS AIQ RADIATION ONCOLOGY Course Number 1 MOSAIQ RADIATION ONCOLOGY Prescribed Fractional Dose 180 cGray MOSAIQ RADIATION ONCOLOGY Prescribed Total Dose 5,400 cGray MOSAIQ RADIATION ONCOLOGY Actual Fractions Delivered 20 MOSAIQ RADIATION ONCOLOGY Prescription Pattern Comment Empty Colostomy Bag Pre TX. custom bolus, see plan MOSAIQ RADIATION ONCOLOGY Actual Session Delivered Dose 180 cGray MOSAIQ RADIATION ONCOLOGY Actual Total Dose 3,600 cGray MOSAIQ RADIATION ONCOLOGY Prescribed Technique 4 ARC VMAT MOSAIQ RADIATION ONCOLOGY Elapsed Days 35 MOSAIQ RADIATION ONCOLOGY Start Date 02/09/2024 MOSAIQ RADIATION ONCOLOGY Last Date 03/15/2024 MOSAIQ RADIATION ONCOLOGY Prescribed Number of Fractions 30 MOSAIQ RADIATION ONCOLOGY 03/15/2024 1:57 PM EST Physician Radiation Oncology RADIATION ONCOLO GY ORDERABLES Final Result MOSAIQ RADIATION ONCOLOGY documented in this encounter Visit Diagnoses Not on filedocumented in this encounter Care Teams Foundation Assistant Relationship Specialty Start Date End Date Sneha Li MD [address] [place] [phone] PCP - General 01/23/23 documented as of this encounter
--- OUTSIDE RECORDS SUMMARY | 2024-04-01 16:42 | XMS_ITS | Encounter Summary ---
Author Organization [employer] Address [address] [place] [address] Care Team Providers Care Special Inspector Name Role Phone Sneha Li MD Primary Care Provider +1- [phone] Reason for Visit * Episode Based Medications (Routine) - Authorized Specialty Diagnoses / Procedures Referred By Contac t Referred To Contact Diagnoses Primary squamous cell carcinoma of anus (CMS/HCC) Arlen Medrano DO [address] [place] [address] Phone: tel: fax: [address] [address] Phone: tel: fax: Referral ID Status Reason Start Date Expiration Date V isits Requested Visits Authorized [id number] Authorized 12/21/2023 12/20/2024 1 11 Encounter Details Date Type Department Care Team (Latest Contact Info) Description 03/22/2024 10:00 AM EST - 03/22/2024 11:59 PM EST Hospital Encounter [facility] [address] [place] [phone] Arlen Medrano DO [address] [place] [address] Primary squamous cell carcinoma of anus (CMS/HCC) (Primary Dx) Discharge Disposition: Home or Self Care Social History Tobacco Use Types Packs/Day Years Used Date Smoking Tobacco: Former Cigarettes Smokeless Tobacco: Never Tobacco Cessation:Counseling Given: Yes Alcohol Use Standard Drinks/Week Comments Not Currently [...] on file documented as of this encounter Last Filed Vital Signs Vital Sign Reading Time Taken Comments Blood Pressure 104/58 03/22/2024 11:42 AM EST Pulse 99 03/22/2024 11:42 AM EST Temperature 36.4 ??C (97.6 ??F) 03/22/2024 11:[address] Respiratory Rate 18 03/22/2024 11:42 AM EST Oxygen Saturation 99% 03/22/2024 11:42 AM EST Inhaled Oxygen Concentration - - Weight 47.3 kg (104 lb 4.8 oz) 03/22/2024 11:42 AM EST Height - - Body Mass Index 19.08 02/17/2024 9:11 PM EST documented in this encounter Functional Status * Are you deaf or do you have serious difficulty hearing? Answer Date of Assessment Author Yes 02/05/2024 3:20 PM EST Aubrey Gomez RN * Are you blind or do you have serious difficulty seeing, even when wearing glasses? Answer Date of Assessment Author No 02/05/2024 3:20 PM EST Aubrey Gomez RN * Do you have serious difficulty [...] 02/05/2024 3:20 PM EST Aubrey Gomez RN documented as of this encounter Medications [...] or Self Care documented in this encounter Progress Notes * Kym Louis RN - 03/22/2024 10:00 AM EST 1120 Yanna arrives for last week of concurrent chemotherapy RT with mitomycin and fluorouracil. Sheis alone, she is in her wheelchair. Using Video master control engineer, with anguillan sign language, video master control engineer [place], [place] [id number], assessment completed. Tolentino catheter in place draining clear peg uri ne, with ostomy in place output is soft brown stool, unformed. For comfort, Yanna lying in bed, offthe site of the tumor. Port a cath accessed and labs drawn and sent stat. Yanna reports her appetite is great and she tells us through the video master control engineer that she is hungry all the time. Yanna also states she is not wearing the Nicoderm patch and is smoking. She states the smoking helps with her nerves, it is more calming than the Nicoderm patch. Gingerale provided, call wong in reach. 1150 Dr. Medrano at bedside. 1219 lunch provided, ate sandwich, more tarun gianni and a little soup and tolerated well. 1315 transported via her wheelchair to RT 1340 returned from Rt. Labs reviewed and within range for treatment. 1400 premeds administered, resting 1500 Mitomycin administered slowly over 10 minutes.. using video interperterlAe, I was able toagain explain to Yanna the procedure.. using video interperter with Mauritan[place] Sign Language, I againreviewed the 5 fu pump and what to watch for during the infusion. 1600 treatment completed. Yanna transported back home via wheel chair van with [place] transportationteam. She is feeling well. documented in this encounter Plan of Treatment Upcoming Encounters Date Type Department Care Team (Late st Contact Info) Description 04/13/2024 1:30 PM EST Appointment [facility] Radiation Oncology [address] [place] [phone] Samina Diaz MD 271 [place] [address] 05/04/2024 11:20 AM EDT Office Visit [facility] 271 [facility] [address] [place] [address] Lalito Miller MD 271 [facility] [address] [place] [address] documented as of this encounter Procedures Procedure Name Priority Date/Time Associated Diagnosis Comments CBC WITH AUTO DIFFERENTIAL Routine 03/22/2024 11:39 AM EST Primary squamous cell carcinoma of anus (CMS/HCC) CBC AND DIFFERENTIAL Routine 03/22/2024 11:39 AM EST Primary squamous cell carcinoma of anus (CMS/HCC) COMPREHENSIVE METABOLIC PANEL Routine 03/22/2024 11:39 AM EST Primary squamous cell carcinoma of anus (CMS/HCC) documented in this encounter Results * (ABNORMAL) CBC auto differential (03/22/2024 11:39 AM EST) WBC 5.4 4.8 - 10.8 K/[facility] LAB HEMETOLOGY METHOD 03/22/2024 12:41 PM [facility] RBC 3.70(L) 3.80 - 4.80 M/[facility] LAB HEMETOLOGY METHOD 03/22/2024 12:41 PM [facility] Hemoglobin 9.8(L) 11.5 - 16.0 g/dL LAB HEMETOLOGY METHOD 03/22/2024 12:41 PM [facility] Hematocrit 31.7(L) 35.0 - 47.0 % LAB HEMETOLOGY METHOD 03/22/2024 12:41 PM [facility] MCV 85.0 79.0 - 98.0 FL LAB HEMETOLOGY METHOD 03/22/2024 12:41 PM [facility] MCH 26.3(L) 27.0 - 32.0 pcg LAB HEMETOLOGY METHOD 03/22/2024 12:41 PM [facility] MCHC 30.9(L) 32.0 - 37.0 g/dL LAB HEMETOLOGY METHOD 03/22/2024 12:41 PM [facility] RDW 24.9(H) 11.0 - 15.0 % LAB HEMETOLOGY METHOD 03/22/2024 12:41 PM [facility] Platelets 216 130 - 400 K/mcL LAB HEMETOLOGY METHOD 03/22/2024 12:41 PM [facility] MPV 10.0 7.0 - 11.0 FL LAB HEMETOLOGY METHOD 03/22/2024 12:41 PM [facility] NRBC 0.0 <1.0 % LAB HEMETOLOGY METHOD 03/22/2024 12:41 PM [facility] NRBC Absolute 0.00 <0.10 K/mcL LAB HEMETOLOGY METHOD 03/22/2024 12:41 PM [facility] Neutrophils Relative 77.9 % LAB HEMETOLOGY METHOD 03/22/2024 12:41 PM [facility] Lymphocytes Relative 7.6 % LAB HEMETOLOGY METHOD 03/22/2024 12:41 PM [facility] Monocytes Relative 11.2 % LAB HEMETOLOGY METHOD 03/22/2024 12:41 PM [facility] Eosinophils Relative 2.2 % LAB HEMETOLOGY METHOD 03/22/2024 12:41 PM [facility] Basophils Relative 0.4 % LAB HEMETOLOGY METHOD 03/22/2024 12:41 PM [facility] Immature Granulocytes Relative 0.7 % LAB HEMETOLOGY METHOD 03/22/2024 12:41 PM EST [facility] Neutrophils Absolute 4.18 1.50 - 7.00 K/mcL LAB HEMETOLOGY METHOD 03/22/2024 12:41 PM [facility] Lymphocytes Absolute 0.41(L) 1.00 - 5.00 K/mcL LAB HEMETOLOGY METHOD 03/22/2024 12:41 PM EST [facility] Monocytes Absolute 0.60 0.20 - 1.00 K/mcL LAB HEMETOLOGY METHOD 03/22/2024 12:41 PM [facility] Eosinophils Absolute 0.12 0.00 - 0.50 K/[facility] LAB HEMETOLOGY METHOD 03/22/2024 12:41 PM [facility] Basophils Absolute 0.02 0.00 - 0.20 K/mcL LAB HEMETOLOGY METHOD 03/22/2024 12:41 PM [facility] Immature Granulocytes Absolute 0.04(H) 0.00 - 0.03 K/mcL LAB HEMETOLOGY METHOD 03/22/2024 12:41 PM [facility] Blood Blood sample taken from central line / Unknown Existing Catheter / Unknown 03/22/2024 11:39 AM EST 03/22/2024 11:51 AM EST us Arlen Medrano DO LAB BLOOD ORDERABLES Final Result [facility] [address] [place] [address], * (ABNORMAL) Comprehensive metabolic panel (03/22/2024 11:39 AM EST) Sodium 134 133 - 145 mmol/L LAB CHEMISTRY METHOD 03/22/2024 1:14 PM EST [facility] Potassium 4.0 3.5 - 5.5 mmol/L LAB CHEMISTRY METHOD 03/22/2024 1:14 PM [facility] Chloride 101 96 - 110 mmol/L LAB CHEMISTRY METHOD 03/22/2024 1:14 PM [facility] CO2 27 21 - 32 mmol/L LAB CHEMISTRY METHOD 03/22/2024 1:14 PM [facility] Anion Gap 6 3 - 11 LAB CHEMISTRY METHOD 03/22/2024 1:14 PM [facility] Glucose 121(H) 70 - 100 mg/dL LAB CHEMISTRY METHOD 03/22/2024 1:14 PM [facility] BUN 6 5 - 25 mg/dL LAB CHEMISTRY METHOD 03/22/2024 1:14 PM [facility] Creatinine 0.56 0.50 - 1.10 mg/dL LAB CHEMISTRY METHOD 03/22/2024 1:14 PM [facility] eGFR 111 >=60 mL/min/1. 73m2 LAB CHEMISTRY METHOD 03/22/2024 1:14 PM [facility] Comment:Calculation based on the??Chronic Kidney Disease Epidemiology Collaboration (CKD-EPI) equation refit??without adjustment for race. BUN/Creatinine Ratio 10.7 LAB CHEMISTRY METHOD 03/22/2024 1:14 PM [facility] Calcium 9.1 8.5 - 10.5 mg/dL LAB CHEMISTRY METHOD 03/22/2024 1:14 PM [facility] AST (SGOT) 13 10 - 42 unit/L LAB CHEMISTRY METHOD 03/22/2024 1:14 PM [facility] ALT (SGPT) 15 10 - 60 unit/L LAB CHEMISTRY METHOD 03/22/2024 1:14 PM [facility] Alkaline Phosphatase 117 42 - 121 unit/L LAB CHEMISTRY METHOD 03/22/2024 1:14 PM [facility] Total Protein 6.6 6.0 - 8.0 g/dL LAB CHEMISTRY METHOD 03/22/2024 1:14 PM [facility] Albumin 2.7(L) 3.2 - 5.0 g/dL LAB CHEMISTRY METHOD 03/22/2024 1:14 PM EST [facility] Comment:Results verified by repeat testing Total Bilirubin 0.3 0.0 - 1.4 mg/dL LAB CHEMISTRY METHOD 03/22/2024 1:14 PM EST [facility] Blood Blood sample taken from central line / Unknown Existing Catheter / Unknown 03/22/2024 11:39 AM EST 03/22/2024 11:51 AM EST us Arlen Medrano DO LAB BLOOD ORDERABLES Final Result [facility] [address] [place] [address], documented in this encounter Visit Diagnoses Diagnosis Primary squamous cell carcinoma of anus (CMS/HCC)- Primary Malignant neoplasm of anus, unspecified site documented in this encounter Administered Medications Inactive Administered Medications - up to 3 most recent administrations Medication Order MAR Action Action Date Dose Rate Site dexAMETHasone (DECADRON) injection 12 mg 12 mg, intravenous, Once, On Fri03/22/24 at 1315, For 1 doseIndications:Primary squamous cell carcinoma of anus (CMS/HCC) Given 03/22/2024 1:56 PM EST 12 mg fluorouracil (ADRUCIL) 4,350 mg in sodium chloride 0.9 % 144 mL chemo infusion 4,350 mg (750 mg/m2/day ? 1.45 m2), intravenous, at 1.5 mL/hr, Administer over 96 Hours, Over 96 hours, First dose on Fri03/22/24 at 1400, For 1 dose, Fluorouracil is administered as a continuous infusion over 96 hours in this regimen. The dose defined on this template is a 24-hour dose. Protect from light HAZARDOUS Drug Precautions - High Risk (Category C/NIOSH Group 1) Antineoplastic: - Double pair of ASTM standard [id number] certified chemotherapy gloves - Chemotherapy gown - Closed-System Transfer Device (CSTD) recommended - Eye protection (goggles or face shield) required only with a potential for facial contact (i.e. concern for spitting or vomiting of the dose during or after administration)Indications:Pr imary squamous cell carcinoma of anus (CMS/HCC) Given 03/22/2024 3:10 PM EST 4,350 mg 1.5 mL/hr mitoMYcin (MUTAMYCIN) 11.6 mg in sterile water 23.2 mL chemo IV syringe 11.6 mg (8 mg/m2 ? 1.45 m2), intravenous, Administer over 10 Minutes, Once, On Fri03/22/24 at 1400, For 1 dose, Mitomycin is a VESICANT VESICANT- Central venous access is recommended for administration of this agent. HAZARDOUS Drug Precautions - High Risk (Category C/NIOSH Group 1) Antineoplastic: - Double pair of ASTM standard [id number] certified chemotherapy gloves - Chemotherapy gown - Closed-System Transfer Device (CSTD) recommended - Eye protection (goggles or face shield) required only with a potential for facial contact (i.e. concern for spitting or vomiting of the dose during or after administration)Indications:Pr imary squamous cell carcinoma of anus (CMS/HCC) New Bag 03/22/2024 2:46 PM EST 11.6 mg ondansetron (PF) (ZOFRAN) injection 8 mg 8 mg, intravenous, Once, On Fri03/22/24 at 1415, For 1 dose, Infuse over 2 minutes. Given 03/22/2024 1:53 PM EST 8 mg oxyCODONE (ROXICODONE) immediate release tablet 5 mg 5 mg, oral, Once, On Fri03/22/24 at 1430, For 1 dose Given 03/22/2024 2:28 PM EST 5 mg documented in this encounter Care Teams Special Inspector Relationship Specialty Start Date End Date Sneha Li MD [address] [place] [phone] PCP - General 01/23/23 documented as of this encounter
--- OUTSIDE RECORDS SUMMARY | 2024-04-01 16:42 | XMS_ITS | Encounter Summary ---
Author Organization [employer] Address [address] [place] [address] Care Team Providers Care Claims Vice President Name Role Phone Sneha Li MD Primary Care Provider +1- [phone] Encounter Details Date Type Department Care Team (Latest Contact Info) Description 03/19/2024 1:11 PM EST - 03/19/2024 11:59 PM EST Hospital Encounter [facility] Radiation Oncology [address] [phone] Discharge Disposition: Home or Self Care Social [...] Info) Description 04/13/2024 1:30 PM EST Appointment [facility] Radiation Oncology 271 [facility] 2nd [place] [phone] Samina Diaz MD [address] [place] [address] 05/04/2024 11:20 AM EDT Office Visit Breast Care [facility] [address] [facility] [address] [place] [address] Lalito Miller MD [address] [facility] [address] [place] [address] documented as of this encounter Procedures Procedure Name Priority Date/Time Associated Diagnosis Comments RAD ONC MSQ TREATMENT SUMMARY Routine 03/19/2024 1:31 PM EST documented in this encounter Results * Rad Onc Msq Treatment Summary (03/19/2024 1:31 PM EST) Treatment Site Pelvis/Anus MOS AIQ RADIATION ONCOLOGY Course Number 1 MOSAIQ RADIATION ONCOLOGY Prescribed Fractional Dose 180 cGray MOSAIQ RADIATION ONCOLOGY Prescribed Total Dose 5,400 cGray MOSAIQ RADIATION ONCOLOGY Actual Fractions Delivered 24 MOSAIQ RADIATION ONCOLOGY Prescription Pattern Comment Empty Colostomy Bag Pre TX. custom bolus, see plan MOSAIQ RADIATION ONCOLOGY Actual Session Delivered Dose 180 cGray MOSAIQ RADIATION ONCOLOGY Actual Total Dose 4,320 cGray MOSAIQ RADIATION ONCOLOGY Prescribed Technique 4 ARC VMAT MOSAIQ RADIATION ONCOLOGY Elapsed Days 39 MOSAIQ RADIATION ONCOLOGY Start Date 02/09/2024 MOSAIQ RADIATION ONCOLOGY Last Date 03/19/2024 MOSAIQ RADIATION ONCOLOGY Prescribed Number of Fractions 30 MOSAIQ RADIATION ONCOLOGY 03/19/2024 1:31 PM EST Physician Radiation Oncology RADIATION ONCOLO GY ORDERABLES Final Result MOSAIQ RADIATION ONCOLOGY documented in this encounter Visit Diagnoses Not on filedocumented in this encounter Care Teams Claims Vice President Relationship Specialty Start Date End Date Sneha Li MD [address] [place] [phone] PCP - General 01/23/23 documented as of this encounter
--- OUTSIDE RECORDS SUMMARY | 2024-04-01 16:42 | XMS_ITS | Encounter Summary ---
Author Organization [facility] Address [address] [place] [address] Care Team Providers Care Informatics Consultant Name Role Phone Sneha Li MD Primary Care Provider +1- [phone] Encounter Details Date Type Department Care Team (Latest Contact Info) Description 03/11/2024 1:11 PM EST - 03/11/2024 11:59 PM EST Hospital Encounter [facility] Radiation Oncology [address] [phone] Discharge Disposition: Home or Self Care Social [...] Info) Description 04/13/2024 1:30 PM EST Appointment [facility] Radiation Oncology [address] [place] [address] [address] [place] [phone] Samina Diaz MD 271 [place] [address] 05/04/2024 11:20 AM EDT Office Visit [facility] [address] [facility] [address] [place] [phone] Lalito Miller MD 271 [facility] [address] [place] [address] documented as of this encounter Procedures Procedure Name Priority Date/Time Associated Diagnosis Comments RAD ONC MSQ TREATMENT SUMMARY Routine 03/11/2024 1:34 PM EST documented in this encounter Results * Rad Onc Msq Treatment Summary (03/11/2024 1:34 PM EST) Treatment Site Pelvis/Anus MOS AIQ RADIATION ONCOLOGY Course Number 1 MOSAIQ RADIATION ONCOLOGY Prescribed Fractional Dose 180 cGray MOSAIQ RADIATION ONCOLOGY Prescribed Total Dose 5,400 cGray MOSAIQ RADIATION ONCOLOGY Actual Fractions Delivered 18 MOSAIQ RADIATION ONCOLOGY Prescription Pattern Comment Empty Colostomy Bag Pre TX. custom bolus, see plan MOSAIQ RADIATION ONCOLOGY Actual Session Delivered Dose 180 cGray MOSAIQ RADIATION ONCOLOGY Actual Total Dose 3,240 cGray MOSAIQ RADIATION ONCOLOGY Prescribed Technique 4 ARC VMAT MOSAIQ RADIATION ONCOLOGY Elapsed Days 31 MOSAIQ RADIATION ONCOLOGY Start Date 02/09/2024 MOSAIQ RADIATION ONCOLOGY Last Date 03/11/2024 MOSAIQ RADIATION ONCOLOGY Prescribed Number of Fractions 30 MOSAIQ RADIATION ONCOLOGY 03/11/2024 1:34 PM EST us Physician Radiation Oncology RADIATION ONCOLO GY ORDERABLES Final Result Performing Organization Address City/State/[facility] Co de Phone Number MOSAIQ RADIATION ONCOLOGY documented in this encounter Visit Diagnoses Not on filedocumented in this encounter Care Teams Informatics Consultant Relationship Specialty Start Date End Date Sneha Li MD [address] [place] [address] [place] [phone] PCP - General 01/23/23 documented as of this encounter
--- OUTSIDE RECORDS SUMMARY | 2024-04-01 16:42 | XMS_ITS | Encounter Summary ---
Author Organization [facility] Address [address] [place] [address] Care Team Providers Care Underground Supervisor Name Role Phone Sneha Li MD Primary Care Provider +1- [phone] Reason for Visit * Reason Comments OTV Encounter Details Date Type Department Care Team (Latest Contact Info) Description 03/12/2024 1:20 PM EST - 03/12/2024 11:59 PM EST Hospital Encounter [facility] Radiation Oncology [address] [phone] Samina Diaz MD 271 [place] [address] Primary squamous cell carcinoma of anus (CMS/HCC) [...] documented in this encounter Progress Notes * Yola Finley RN - 03/12/2024 1:20 PM EST Accompanied by: video sign language Subjective: Patient has been discharged home. Has rocha catheter in place. Is patient experiencing any fatigue? Yes Pt is having extreme fatigue Is patient experiencing any diarrhea or loose stools? Watery stools in ostomy How many per day? 0 Using anything for it? No Patient has ostomy Is there any rectal discomfort/pain with bowel movements? Yes pain 10/10 Is there any blood in the stools? No Any skin irritation or desquamation? Yes Pt has rash and dryness in treatment area. Not using any lotions/creams at this point. Is patient on Chemo/Hydration/Labs? Yes Patient says she has sitz bath at home. Pt reports ostomy working well Pain in buttocks, leg and bladder. Under control with current med regime * Samina Diaz MD - 03/12/2024 1:20 PM EST Radiation Oncology On Treatment Visit Patient Name: Yanan Power Attending Provider: Samina Diaz MD Encounter Date: 03/12/2024 DIAGNOSIS: 1. 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 Med onc Dr. Medrano. Accompanied by: video sign language used. Subjective: Patient is now at home. [facility] Has rocha catheter in place. Is patient experiencing any fatigue? Yes Pt is having extreme fatigue Is patient experiencing any diarrhea or loose stools? Watery stools in ostomy How many per day? 0 Using anything for it? No Patient has ostomy Is there any rectal discomfort/pain with bowel movements? Yes pain 10/10 Is there any blood in the stools? No Any skin irritation or desquamation? Yes Pt has rash and dryness in treatment area. Not using any lotions/creams at this point. Is patient on Chemo/Hydration/Labs? Yes Patient says she can't do sitz bath at home. Pt reports ostomy working well Pain in buttocks, leg and bladder. Under control with current med regime Pt reports that she feels like she is urinating out her vagina but nothing comes out because she has a rocha placed. LABS: Lab Results Component Value Date WBC 2.9 (L) 03/04/2024 HGB 8.0 (L) 03/05/2024 HCT 25.7 (L) 03/05/2024 MCV 82.0 03/04/2024 PLT 145 03/04/2024 Lab Results Component Value Date NA 136 03/04/2024 K 3.8 03/04/2024 CL 100 03/04/2024 CO2 31 03/04/2024 GLUCOSE 100 03/04/2024 BUN 6 03/04/2024 CREATININE 0.43 (L) 03/04/2024 CALCIUM 8.0 (L) 03/04/2024 PROT 5.0 (L) 02/17/2024 ALBUMIN 1.7 (L) 02/17/2024 BILITOT 0.4 02/17/2024 AST 13 02/17/2024 ALT 14 02/17/2024 PHOS 3.1 03/04/2024 MG 1.9 03/04/2024 ALKPHOS 98 02/17/2024 EGFR 118 03/04/2024 Physical Exam: There were no vitals filed for this visit. Patients weight: 119.6 lb on 02/13/24. General: appears in comfortable laying on left side on stretcher Has rocha Ostomy bag, contains some soft stool today. Has diaper on, there is drainage from the anal area noted. Skin intact in posterior anal area and gluteal fold. Some ulcerated skin noted which is from the tumor. Right groin has palpable adenopathy.Skin starting to have few small (few mm) patches of desquamation in left groin and in perianal area. Vulvar skin intact. Assessment/Plan: She is tolerating treatments well. Continue radiation as scheduled. I have reviewed set-up, dosimetry, and CBCT. I explained to patient that I will need to see her skin in the anal area during weekly visits. Keep rocha for now to allow for better bladder filling. Patient encouraged to drink water before treatments to help full her bladder. Treatment break from 03/19 - 03/24 due to hospital admission due to fever, low BP and electrolyte abnormalities. Resumed RT on 02/23/24. Pt given samples of OTC moisturizer and a peribottle to use in perineal area. Due for next chemo on 03/22/24. Check weekly weights. Labs per med onc. Previously noted: Patient was given instructions about filling bladder and to clamp rocha one hour prior to treatment, then unclamp after treatment. Patient advised to use sitz bath Patient advised to let us know if she has any diarrhea Patient advised to empty ostomy bag just prior to coming for RT. documented in this encounter Plan of Treatment Upcoming Encounters Date Type Department Care Team (Late st Contact Info) Description 04/13/2024 1:30 PM EST Appointment [facility] Radiation Oncology 271 [facility] 2nd [place] [address] Samina Diaz MD 271 [place] [address] 05/04/2024 11:20 AM EDT Office Visit Breast Care [facility] 271 [facility] [address] [place] [phone] Lalito Miller MD 271 [facility] 110 [place] [address] documented as of this encounter Visit Diagnoses Diagnosis Primary squamous cell carcinoma of anus (CMS/HCC)- Primary Malignant neoplasm of anus, unspecified site documented in this encounter Care Teams Underground Supervisor Relationship Specialty Start Date End Date Sneha Li MD 230 [facility] 1 [place] [address] PCP - General 01/23/23 documented as of this encounter
--- OUTSIDE RECORDS SUMMARY | 2024-04-01 16:42 | XMS_ITS | Encounter Summary ---
Author Organization [employer] Address [address] [place] [address] Care Team Providers Care Roll Hauler Name Role Phone Sneha Li MD Primary Care Provider +1- [phone] Encounter Details Date Type Department Care Team (Latest Contact Info) Description 03/24/2024 1:13 PM EST - 03/24/2024 11:59 PM EST Hospital Encounter Radiation Oncology [address] [phone] Discharge Disposition: Home or Self Care Social [...] Info) Description 04/13/2024 1:30 PM EST Appointment Radiation Oncology 271 [facility] 2nd [place] [phone] Samina Diaz MD 271 [place] [address] 05/04/2024 11:20 AM EDT Office Visit Breast Care [facility] [address] [facility] [address] [place] [address] Lalito Miller MD 271 [facility] [address] [place] [address] documented as of this encounter Procedures Procedure Name Priority Date/Time Associated Diagnosis Comments RAD ONC MSQ TREATMENT SUMMARY Routine 03/24/2024 1:32 PM EST documented in this encounter Results * Rad Onc Msq Treatment Summary (03/24/2024 1:32 PM EST) Treatment Site Pelvis/Anus MOS AIQ RADIATION ONCOLOGY Course Number 1 MOSAIQ RADIATION ONCOLOGY Prescribed Fractional Dose 180 cGray MOSAIQ RADIATION ONCOLOGY Prescribed Total Dose 5,400 cGray MOSAIQ RADIATION ONCOLOGY Actual Fractions Delivered 27 MOSAIQ RADIATION ONCOLOGY Prescription Pattern Comment Empty Colostomy Bag Pre TX. custom bolus, see plan MOSAIQ RADIATION ONCOLOGY Actual Session Delivered Dose 180 cGray MOSAIQ RADIATION ONCOLOGY Actual Total Dose 4,860 cGray MOSAIQ RADIATION ONCOLOGY Prescribed Technique 4 ARC VMAT MOSAIQ RADIATION ONCOLOGY Elapsed Days 44 MOSAIQ RADIATION ONCOLOGY Start Date 02/09/2024 MOSAIQ RADIATION ONCOLOGY Last Date 03/24/2024 MOSAIQ RADIATION ONCOLOGY Prescribed Number of Fractions 30 MOSAIQ RADIATION ONCOLOGY 03/24/2024 1:32 PM EST Physician Radiation Oncology RADIATION ONCOLO GY ORDERABLES Final Result MOSAIQ RADIATION ONCOLOGY documented in this encounter Visit Diagnoses Not on filedocumented in this encounter Care Teams Roll Hauler Relationship Specialty Start Date End Date Sneha Li MD [address] [place] [phone] PCP - General 01/23/23 documented as of this encounter
--- OUTSIDE RECORDS SUMMARY | 2024-04-01 16:42 | XMS_ITS | Encounter Summary ---
Author Organization [employer] Address [address] [place] [address] Care Team Providers Care Director Of Informatics Name Role Phone Sneha Li MD Primary Care Provider +1- [phone] Encounter Details Date Type Department Care Team (Latest Contact Info) Description 03/12/2024 1:05 PM EST - 03/12/2024 11:59 PM EST Hospital Encounter [facility] Radiation Oncology [address] [phone] Discharge Disposition: Home or Self Care Social [...] Info) Description 04/13/2024 1:30 PM EST Appointment [facility] Radiation Oncology [address] [place] [address] 2nd [place] [phone] Samina Diaz MD 271 [place] [address] 05/04/2024 11:20 AM EDT Office Visit [facility] 271 [facility] [address] [place] [phone] Lalito Miller MD 271 [facility] [address] [place] [address] documented as of this encounter Procedures Procedure Name Priority Date/Time Associated Diagnosis Comments RAD ONC MSQ TREATMENT SUMMARY Routine 03/12/2024 1:47 PM EST documented in this encounter Results * Rad Onc Msq Treatment Summary (03/12/2024 1:47 PM EST) Treatment Site Pelvis/Anus MOS AIQ RADIATION ONCOLOGY Course Number 1 MOSAIQ RADIATION ONCOLOGY Prescribed Fractional Dose 180 cGray MOSAIQ RADIATION ONCOLOGY Prescribed Total Dose 5,400 cGray MOSAIQ RADIATION ONCOLOGY Actual Fractions Delivered 19 MOSAIQ RADIATION ONCOLOGY Prescription Pattern Comment Empty Colostomy Bag Pre TX. custom bolus, see plan MOSAIQ RADIATION ONCOLOGY Actual Session Delivered Dose 180 cGray MOSAIQ RADIATION ONCOLOGY Actual Total Dose 3,420 cGray MOSAIQ RADIATION ONCOLOGY Prescribed Technique 4 ARC VMAT MOSAIQ RADIATION ONCOLOGY Elapsed Days 32 MOSAIQ RADIATION ONCOLOGY Start Date 02/09/2024 MOSAIQ RADIATION ONCOLOGY Last Date 03/12/2024 MOSAIQ RADIATION ONCOLOGY Prescribed Number of Fractions 30 MOSAIQ RADIATION ONCOLOGY 03/12/2024 1:47 PM EST us Physician Radiation Oncology RADIATION ONCOLO GY ORDERABLES Final Result Performing Organization Address City/State/[facility] Co de Phone Number MOSAIQ RADIATION ONCOLOGY documented in this encounter Visit Diagnoses Not on filedocumented in this encounter Care Teams Director Of Informatics Relationship Specialty Start Date End Date Sneha Li MD [address] [place] [address] [place] [phone] PCP - General 01/23/23 documented as of this encounter
--- OUTSIDE RECORDS SUMMARY | 2024-04-01 16:42 | XMS_ITS | Encounter Summary ---
Author Organization [employer] Address [address] [place] [address] Care Team Providers Care Clinical Assessment Manager Name Role Phone Sneha Li MD Primary Care Provider +1- [phone] Encounter Details Date Type Department Care Team (Latest Contact Info) Description 03/16/2024 1:08 PM EST - 03/16/2024 11:59 PM EST Hospital Encounter [facility] Radiation Oncology [address] [phone] Discharge Disposition: Home or Self Care Social [...] Info) Description 04/13/2024 1:30 PM EST Appointment [facility] Radiation Oncology [address] [facility] 2nd [place] [phone] Samina Diaz MD 271 [place] [address] 05/04/2024 11:20 AM EDT Office Visit [facility] [address] [facility] [address] [place] [address] Lalito Miller MD [address] [facility] [address] [place] [address] documented as of this encounter Procedures Procedure Name Priority Date/Time Associated Diagnosis Comments RAD ONC MSQ TREATMENT SUMMARY Routine 03/16/2024 1:47 PM EST documented in this encounter Results * Rad Onc Msq Treatment Summary (03/16/2024 1:47 PM EST) Treatment Site Pelvis/Anus MOS AIQ RADIATION ONCOLOGY Course Number 1 MOSAIQ RADIATION ONCOLOGY Prescribed Fractional Dose 180 cGray MOSAIQ RADIATION ONCOLOGY Prescribed Total Dose 5,400 cGray MOSAIQ RADIATION ONCOLOGY Actual Fractions Delivered 21 MOSAIQ RADIATION ONCOLOGY Prescription Pattern Comment Empty Colostomy Bag Pre TX. custom bolus, see plan MOSAIQ RADIATION ONCOLOGY Actual Session Delivered Dose 180 cGray MOSAIQ RADIATION ONCOLOGY Actual Total Dose 3,780 cGray MOSAIQ RADIATION ONCOLOGY Prescribed Technique 4 ARC VMAT MOSAIQ RADIATION ONCOLOGY Elapsed Days 36 MOSAIQ RADIATION ONCOLOGY Start Date 02/09/2024 MOSAIQ RADIATION ONCOLOGY Last Date 03/16/2024 MOSAIQ RADIATION ONCOLOGY Prescribed Number of Fractions 30 MOSAIQ RADIATION ONCOLOGY 03/16/2024 1:47 PM EST Physician Radiation Oncology RADIATION ONCOLO GY ORDERABLES Final Result MOSAIQ RADIATION ONCOLOGY documented in this encounter Visit Diagnoses Not on filedocumented in this encounter Care Teams Clinical Assessment Manager Relationship Specialty Start Date End Date Sneha Li MD [address] [place] [phone] PCP - General 01/23/23 documented as of this encounter
--- OUTSIDE RECORDS SUMMARY | 2024-04-01 16:42 | XMS_ITS | Encounter Summary ---
Author Organization [facility] Address [address] [place] [address] Care Team Providers Care Irrigation Specialist Name Role Phone Sneha Li MD Primary Care Provider +1- [phone] Reason for Visit * Reason Comments OTV Encounter Details Date Type Department Care Team (Latest Contact Info) Description 03/19/2024 1:20 PM EST - 03/19/2024 11:59 PM EST Hospital Encounter [facility] Radiation Oncology [address] [phone] Samina Diaz MD 271 [place] [address] Primary squamous cell carcinoma of anus (CMS/HCC) [...] Sign Reading Time Taken Comments Blood Pressure - - Pulse - - Temperature - - Respiratory Rate - - Oxygen Saturation - - Inhaled Oxygen Concentration - - Weight 49.1 kg (108 lb 4.8 oz) 03/19/2024 1:51 P M EST Height - - Body Mass Index 19.81 02/17/2024 9:11 PM EST documented in this encounter Functional Status * Are you deaf or do you have serious difficulty hearing? Answer Date of Assessment Author Yes 02/05/2024 3:20 PM Aubrey Millan RN * Are you blind or do [...] Progress Notes * Yola Finley RN - 03/19/2024 1:20 PM EST Accompanied by: video sign language used. Subjective: Patient is now at home. Has rocha catheter in place. Is patient experiencing any fatigue? No Is patient experiencing any diarrhea or loose stools? Loose stools in ostomy How many per day? 0 Using anything for it? No Patient has ostomy Is there any rectal discomfort/pain with bowel movements? No Is there any blood in the stools? No Any skin irritation or desquamation? Yes Pt has rash and dryness in treatment area. Not using any lotions/creams at this point. Is patient on Chemo/Hydration/Labs? Yes Patient says she can't do sitz bath at home. Pt reports ostomy working well Pain in buttocks and stomach. Rates pain 8/10. Under control with current med regime Pt reports appetite is good, she has been eating a lot. * Samina Diaz MD - 03/19/2024 1:20 PM EST Radiation Oncology On Treatment Visit Patient Name: Yanna Power Attending Provider: Samina Diaz MD Encounter Date: 03/19/2024 DIAGNOSIS: 1. Primary squamous cell carcinoma of [...] Fraction Dose Fractions Total Dose Course 1 02/09/2024-03/19/2024 (days elapsed: 39) Pelvis/Anus 02/09/2024-03/19/2024 4 ARC VMAT 180 / 180 cGy 4320 / 5,400 cGy TOTAL PLANNED DOSE: 5400 cGy in 30 fractions CONCURRENT THERAPY: 5-FU and mitomycin, started on 02/12/2024. Med onc Dr. Medrano. Accompanied by: video sign language used. Subjective: Patient is now at home. Has rocha catheter in place. Is patient experiencing any fatigue? No Is patient experiencing any diarrhea or loose stools? Loose stools in ostomy How many per day? 0 Using anything for it? No Patient has ostomy Is there any rectal discomfort/pain with bowel movements? No Is there any blood in the stools? No Any skin irritation or desquamation? Yes Pt has rash and dryness in treatment area. Not using any lotions/creams at this point. Is patient on Chemo/Hydration/Labs? Yes Patient says she can't do sitz bath at home. Pt reports ostomy working well Pain in buttocks and stomach. Rates pain 8/10. Under control with current med regime Pt reports appetite is good, she has been eating a lot. LABS: Lab Results Component Value Date WBC [...] 119.6 lb on 02/13/24. General: appears in comfortable, sitting in wheelchair Has rocha On 03/19/24 patient declined examination Exam from 03/12/24: Ostomy bag, contains some soft stool today. [...] and electrolyte abnormalities. Resumed RT on 02/23/24. Previously Pt given samples of OTC moisturizer and [...] Info) Description 04/13/2024 1:30 PM EST Appointment [facility] Radiation Oncology 271 [facility] 2nd [place] [phone] Samina Diaz MD 271 [place] [address] 05/04/2024 11:20 AM EDT Office Visit [facility] 271 [facility] 200 [place] [phone] Lalito Miller MD 271 [facility] 110 [place] [address] documented as of this encounter Visit Diagnoses Diagnosis Primary squamous cell carcinoma of anus (CMS/HCC)- Primary Malignant neoplasm of anus, unspecified site documented in this encounter Care Teams Irrigation Specialist Relationship Specialty Start Date End Date Sneha Li MD 230 [facility] 1 [place] [phone] PCP - General 01/23/23 documented as of this encounter
--- OUTSIDE RECORDS SUMMARY | 2024-04-01 16:42 | XMS_ITS | Encounter Summary ---
Author Organization [employer] Address [address] [place] [address] Care Team Providers Care Furnace Keeper Name Role Phone Sneha Li MD Primary Care Provider +1- [phone] Encounter Details Date Type Department Care Team (Latest Contact Info) Description 03/26/2024 1:06 PM EST - 03/26/2024 11:59 PM EST Hospital Encounter [facility] Radiation Oncology [address] [phone] Discharge Disposition: Home or Self Care Social [...] (one) time each day. 30 each 03/05/2024 5 fluticasone propion-salmeteroL (ADVAIR DISKUS) 500-50 mcg/dose diskus inhaler Inhale [...] by mouth at bedtime as needed. 11/08/2023 multivitamin tablet Take 1 tablet by mouth 1 (one) time each day. 30 each 03/04/2024 5 ondansetron (ZOFRAN) 8 mg tabletIndications: prevention of chemotherapy-induc ed nausea and vomiting Take 1 tablet (8 [...] if needed for constipation. 51 g 03/03/2024 risperiDONE (RisperDAL) 1 mg tablet Take 1 tablet (1 mg total) by mouth 2 (two) times a day. 08/10/2022 risperiDONE (RisperDAL) 4 mg tablet Take 1 tablet (4 mg total) by mouth at bedtime. silver sulfADIAZINE (SILVADENE, SSD) 1 % cream Apply topically 2 (two) times a day. Apply to affected area 2-3 times per day 400 g 03/26/2024 thiamine (VITAMIN B-1) 100 mg tablet Take 1 tablet (100 mg total) by mouth 1 (one) time each day. 30 tablet 03/04/2024 5 documented as of this encounter Discharge Disposition Disposition Code Departure Means Destination Home or Self Care documented in this encounter Plan of Treatment Upcoming Encounters Date Type Department Care Team (Late st Contact Info) Description 04/13/2024 1:30 PM EST Appointment [facility] Radiation Oncology 271 [facility] 2nd [place] [address] Samina Diaz MD 271 [place] [address] 05/04/2024 11:20 AM EDT Office Visit [facility] 271 [facility] [address] [place] [phone] Lalito Miller MD 271 [facility] [address] [place] [address] documented as of this encounter Procedures Procedure Name Priority Date/Time Associated Diagnosis Comments RAD ONC MSQ TREATMENT SUMMARY Routine 03/26/2024 1:34 PM EST documented in this encounter Results * Rad Onc Msq Treatment Summary (03/26/2024 1:34 PM EST) Treatment Site Pelvis/Anus MOS AIQ RADIATION ONCOLOGY Course Number 1 MOSAIQ RADIATION ONCOLOGY Prescribed Fractional Dose 180 cGray MOSAIQ RADIATION ONCOLOGY Prescribed Total Dose 5,400 cGray MOSAIQ RADIATION ONCOLOGY Actual Fractions Delivered 29 MOSAIQ RADIATION ONCOLOGY Prescription Pattern Comment Empty Colostomy Bag Pre TX. custom bolus, see plan MOSAIQ RADIATION ONCOLOGY Actual Session Delivered Dose 180 cGray MOSAIQ RADIATION ONCOLOGY Actual Total Dose 5,220 cGray MOSAIQ RADIATION ONCOLOGY Prescribed Technique 4 ARC VMAT MOSAIQ RADIATION ONCOLOGY Elapsed Days 46 MOSAIQ RADIATION ONCOLOGY Start Date 02/09/2024 MOSAIQ RADIATION ONCOLOGY Last Date 03/26/2024 MOSAIQ RADIATION ONCOLOGY Prescribed Number of Fractions 30 MOSAIQ RADIATION ONCOLOGY 03/26/2024 1:34 PM EST Physician Radiation Oncology RADIATION ONCOLO GY ORDERABLES Final Result MOSAIQ RADIATION ONCOLOGY documented in this encounter Visit Diagnoses Not on filedocumented in this encounter Care Teams Furnace Keeper Relationship Specialty Start Date End Date Sneha Li MD [address] [place] [phone] PCP - General 01/23/23 documented as of this encounter
--- OUTSIDE RECORDS SUMMARY | 2024-04-01 16:42 | XMS_ITS | Encounter Summary ---
Author Organization [employer] Address [address] [place] [address] Care Team Providers Care Sew Out Operator Name Role Phone Sneha Li MD Primary Care Provider +1- [phone] Encounter Details Date Type Department Care Team (Late st Contact Info) Description 03/10/2024 Telephone [facility] Radiation Oncology [address] [address] Zoila Villegas RN Social History Tobacco Use Types Packs/Day Years [...] 3:20 PM EST Aubrey Gomez RN * Because of a physical, mental, or emotional condition, do you have serious difficulty doing errandsalone such as visiting the doctor? Answer Date of Assessment Author Yes 02/05/2024 3:20 PM Aubrey Millan RN documented as of this encounter Progress Notes * Zoila Villegas RN - 03/10/2024 2:36 PM EST Patient did not show up for her rt appt. Today. I called and spoke with Shaina (sister) who stated that the transportation company did not show and that they are trying to confirm rides for remainderof treatments. I asked that they call our direct linac line if patient is unable to make it to any appt's. documented in this encounter Plan of Treatment Upcoming Encounters Date Type Department Care Team (Late st Contact Info) Description 04/13/2024 1:30 PM EST Appointment [facility] Radiation Oncology 271 [facility] 2nd [place] [phone] Samina Diaz MD 271 [place] [address] 05/04/2024 11:20 AM EDT Office Visit Breast Care [facility] [address] [facility] [address] [place] [phone] Lalito Miller MD [address] [facility] 110 [place] [address] documented as of this encounter Visit Diagnoses Not on filedocumented in this encounter Care Teams Sew Out Operator Relationship Specialty Start Date End Date Sneha Li MD [address] [place] [phone] PCP - General 01/23/23 documented as of this encounter
--- OUTSIDE RECORDS SUMMARY | 2024-04-01 16:42 | XMS_ITS | Encounter Summary ---
Author Organization [employer] Address [address] [place] [address] Care Team Providers Care Booth Cleaner Name Role Phone Sneha Li MD Primary Care Provider +1- [phone] Encounter Details Date Type Department Care Team (Latest Contact Info) Description 03/05/2024 1:20 PM EST - 03/05/2024 11:59 PM EST Hospital Encounter [facility] Radiation Oncology [address] [phone] Samina Diaz MD 271 [place] [address] Primary squamous cell carcinoma of anus (CMS/HCC) [...] each day. 30 each 03/05/2024 5 fluticasone propion-salmeter oL (ADVAIR DISKUS) 500-50 mcg/dose [...] each 03/04/2024 5 ondansetron (ZOFRAN) 8 mg tabletIndication s:prevention of [...] if needed for constipation. 51 g 03/03/2024 5 risperiDONE (RisperDAL) 1 mg tablet Take 1 tablet (1 mg total) by mouth 2 (two) times a day. 08/10/2022 risperiDONE (RisperDAL) 4 mg tablet Take 1 tablet (4 mg total) by mouth at bedtime. thiamine (VITAMIN B-1) 100 mg tablet Take 1 tablet (100 mg total) by mouth 1 (one) time each day. 30 tablet 03/04/2024 5 magnesium oxide (MAG-OX) 400 mg (241.3 elemental magnesium) tablet Take 1 tablet (400 mg total) by mouth 1 (one) time each day for 10 days. 10 each 03/03/2024 5 acetaminophen (TYLENOL) 325 mg tablet Take 2 tablets (650 mg total) by mouth every 6 (six) hours if needed for mild pain or fever - temperature GREATER than 38 C (100.4 F) for up to 10 days. 30 tablet 02/10/2024 5 amoxicillin-clav ulanate (AUGMENTIN) 875-125 mg per tablet Take 1 tablet by mouth 2 (two) times a day for 5 days. 10 each 02/10/2024 5 doxycycline (VIBRAMYCIN) 100 mg capsule Take 1 capsule (100 mg total) by mouth 2 (two) times a day for 5 days. Take with at least 8 ounces (large glass) of water, do not lie down for 30 minutes after 10 each 02/10/2024 5 documented as of this encounter Discharge Disposition Disposition Code Departure Means Destination Home or Self Care documented in this encounter Progress Notes * Yola Finley RN - 03/05/2024 1:20 PM EST Accompanied by: In demand final tester Norma # [id number] Subjective: Has rocha catheter in place. Is patient experiencing any fatigue? Yes Pt is having extreme fatigue Is patient experiencing any diarrhea or loose stools? Loose stools in ostomy. No blood How many per day? 0 Using anything for it? No Patient has ostomy Is there any rectal discomfort/pain with bowel movements? Yes pain 10/10 buttocks and abdomen. Is there any blood in the stools? No Any skin irritation or desquamation? Yes Pt has rash and dryness in treatment area. Not using any lotions/creams at this point. Is patient on Chemo/Hydration/Labs? Yes Patient says she has sitz bath at home. Pt reports ostomy working well Pain in buttocks, leg and bladder. Under control with current med regime Pt reports she is not ready to go home and does not know when she will be discharged * Samina Diaz MD - 03/05/2024 1:20 PM EST Radiation Oncology On Treatment Visit Patient Name: May Tono Attending Provider: Samina Diaz MD Encounter Date: 03/05/2024 DIAGNOSIS: 1. Primary squamous cell carcinoma of [...] Fraction Dose Fractions Total Dose Course 1 02/09/2024-03/04/2024 (days elapsed: 24) Pelvis/Anus 02/09/2024-03/04/2024 4 ARC VMAT 180 / 180 cGy 2520 / 5,400 cGy Patient was treated today and total dose is now 2700 cGy in 15 fractions. TOTAL PLANNED DOSE: 5400 cGy in 30 fractions CONCURRENT THERAPY: 5-FU and mitomycin, started on 02/12/2024. Med onc Dr. Medrano. Accompanied by: video sign language # [id number] Subjective: Patient is still inpatient. Looks like plan is to discharge patient to home but she doesn't feel ready to go home. Has no one to help her at home. Has rocha catheter in place. [...] in comfortable laying on left side on hospital stretcher Has rocha Ostomy bag, contains firm stool today. Has diaper on, there is drainage from the anal area noted. Skin intact in posterior anal area and gluteal fold. Some ulcerated skin noted which is from the tumor. Right groin has palpable adenopathy.Skin intact. Vulvar skin intact. Assessment/Plan: She is tolerating [...] and electrolyte abnormalities. Resumed RT on 02/23/24. Patient continues to be inpt. She is supposed to be discharged to home with services. Patient is concerned about going home. Check weekly weights. Labs per med onc. [...] Description 04/13/2024 1:30 PM EST Appointment [facility] Radiation Oncology [address] [facility] 2nd [place] [phone] Samina Diaz MD 271 [place] [address] 05/04/2024 11:20 AM EDT Office Visit [facility] [address] [facility] [address] [place] [phone] Lalito Miller MD 271 [facility] 110 [place] [address] documented as of this encounter Visit Diagnoses Diagnosis Primary squamous cell carcinoma of anus (CMS/HCC)- Primary Malignant neoplasm of anus, unspecified site documented in this encounter Care Teams Booth Cleaner Relationship Specialty Start Date End Date Guillermo, MD Sneha [address] [facility] 1 [place] [address] PCP - General 01/23/23 documented as of this encounter
--- OUTSIDE RECORDS SUMMARY | 2024-04-01 16:42 | XMS_ITS | Encounter Summary ---
Author Organization [employer] Address [address] [facility] 7t [place] [address] Care Team Providers Care Bookstore Manager Name Role Phone Sneha Li MD Primary Care Provider +1- [phone] Reason for Visit * Reason Onset Date Comments Durable Medical Equipment 05/27/2023 Encounter Details Date Type Department Care Team ([facility] st Contact Info) Description 05/27/2023 Telephone [facility] MEDICINE 230 [place], [place] [phone] Sneha Li MD 230 [place], [place] [phone] Durable Medical Equipment Social History Tobacco Use Types Packs/Day Years Used Date Smoking Tobacco: Every Day Cigarettes Passive Smoke Exposure: Current Smokeless Tobacco: Never Alcohol Use Standard Drinks/Week Comments Never 0 (1 standard drink = 0.6 oz pur e alcohol) Housing Stability Answer Date Recorded What is your housing situation today? I have elidia morrison 12/04/[address] you li ve. Do you have problems with any of the following? None of the above 12/04/2022 Food Insecurity Answer Date Recorded Within the past 12 months, y ou worried that your food would run out before you got money to buy more: Never True 12/04/2022 Within the past 12 months,th e food you bought just didn't last and you didn't have enough money to get more: Never True Transportation Answer Date Recorded In the past 12 months, has l ack of transportation kept you from medical appts, meetings, work or from getting things needed for daily living? Yes, it has kept me from medical appointments or getting medications. 11/17/2022 Utilities Answer Date Recorded In the past 12 months, has t he electric, gas, oil or water company threatened to shut off services in your home? No 12/04/2022 Depression Answer Date Recorded Patient Health Questionnaire-2 Score 2 07/31/2022 Comments Unknown Sex and Gender Information Value Date Recorded Sex Assigned at Female 12/10/2021 10:35 AM EDT Legal Sex Female 10:35 AM EDT Gender Identity Female 12/10/2021 10:35 AM EDT Sexual Orientation Straight 12/10/2021 10 :35 AM EDT documented as of this encounter Miscellaneous Notes * Telephone Encounter - Ivonne Madsen - 05/27/2023 1:26 PM EDT DME RX GENERATED FOR SHOWER CHAIR PLACED AT PCP DESK FOR REVIEW AND SIGNATURE. ONCE SIGNED WILL BE FAXED TO [employer] FOR APPROVAL AND SCAN TO MEDIA. * Telephone Encounter - Rio Graves - 05/27/2023 12:28 PM EDT Tc from Norma with [facility] requesting DME: Shower chair If any questions you can contact Norma at [phone]. Norma would like that faxed to [facility] [employer] documented in this encounter Plan of Treatment Not on file documented as of this encounter Visit Diagnoses Not on filedocumented in this encounter Care Teams Bookstore Manager Relationship Specialty Start Date End Date Sneha Li MD 230 [place] [address] PCP - General Family Medicine 10/02/18 Dr. Lalito Miller MD [address] [address] Gynecologic Oncology 12/31/23 Dr. Samina Diaz [facility] Radiation Oncology 12/04/23 Dr. Pamela Medrano DO, Oncology 11/26/23 [facility] 11/20/23 documented as of this encounter
--- OUTSIDE RECORDS SUMMARY | 2024-04-01 16:42 | XMS_ITS | Encounter Summary ---
Author Organization [employer] Address [address] [facility] 7t [place] [address] Care Team Providers Care Cloth Examiner Name Role Phone Sneha Li MD Primary Care Provider +1- [phone] Reason for Visit * Reason Onset Date Comments FYI 09/09/2023 Encounter Details Date Type Department Care Team ([facility] st Contact Info) Description 09/09/[address] [facility] MEDICINE 230 [place], [place] [phone] Sneha Li MD 230 [place], [place] [phone] FYI Social History Tobacco Use Types Packs/Day Years [...] encounter Miscellaneous Notes * Telephone Encounter - Rio Graves - 09/09/2023 1:02 PM EDT Tc from Kayla with [facility] calling to inform pcp on readings during today's visit. Heart rate came out to 118 regular and blood pressure was 100/60. If any questuions you can contact Kayla at [phone]. documented in this encounter Plan of Treatment Not on file documented as of this encounter Visit Diagnoses Not on filedocumented in this encounter Care Teams Cloth Examiner Relationship Specialty Start Date End Date Sneha Li MD [address] [place] [address] PCP - General Family Medicine 10/02/18 Dr. Lalito Miller MD [address] [address] Gynecologic Oncology 12/31/23 Dr. Samina Diaz [facility] Radiation Oncology 12/04/23 Dr. Pamela Medrano DO, Oncology 11/26/23 [facility] 11/20/23 documented as of this encounter
--- OUTSIDE RECORDS SUMMARY | 2024-04-01 16:42 | XMS_ITS | Encounter Summary ---
Author Organization [employer] Address [address] [place] [address] Care Team Providers Care Painter Helper Name Role Phone Sneha Li MD Primary Care Provider +1- [phone] Encounter Details Date Type Department Care Team (Late st Contact Info) Description 03/31/2024 12:58 PM EST Hospital Encounter [facility] Radiation Oncology [address] [place] [address] Social History Tobacco Use Types Packs/Day Years [...] Gomez RN documented as of this encounter Plan of Treatment Upcoming Encounters Date Type Department Care Team (Late st Contact Info) Description 04/13/2024 1:30 PM EST Appointment [facility] Radiation Oncology [address] [facility] 2nd [place] [address] Samina Diaz MD 271 [place], [place] [phone] 05/04/2024 11:20 AM EDT Office Visit [facility] [address] [facility] [address] [place] [address] Lalito Miller MD [address] [facility] [address] [place], [place] [phone] documented as of this encounter Procedures Procedure Name Priority Date/Time Associated Diagnosis Comments RAD ONC MSQ TREATMENT SUMMARY Routine 03/31/2024 1:33 PM EST documented in this encounter Results * Rad Onc Msq Treatment Summary (03/31/2024 1:33 PM EST) Treatment Site Pelvis/Anus MOS AIQ RADIATION ONCOLOGY Course Number 1 MOSAIQ RADIATION ONCOLOGY Prescribed Fractional Dose 180 cGray MOSAIQ RADIATION ONCOLOGY Prescribed Total Dose 5,400 cGray MOSAIQ RADIATION ONCOLOGY Actual Fractions Delivered 30 MOSAIQ RADIATION ONCOLOGY Prescription Pattern Comment Empty Colostomy Bag Pre TX. custom bolus, see plan MOSAIQ RADIATION ONCOLOGY Actual Session Delivered Dose 180 cGray MOSAIQ RADIATION ONCOLOGY Actual Total Dose 5,400 cGray MOSAIQ RADIATION ONCOLOGY Prescribed Technique 4 ARC VMAT MOSAIQ RADIATION ONCOLOGY Elapsed Days 51 MOSAIQ RADIATION ONCOLOGY Start Date 02/09/2024 MOSAIQ RADIATION ONCOLOGY Last Date 03/31/2024 MOSAIQ RADIATION ONCOLOGY Prescribed Number of Fractions 30 MOSAIQ RADIATION ONCOLOGY 03/31/2024 1:33 PM EST us Physician Radiation Oncology RADIATION ONCOLO GY ORDERABLES Final Result MOSAIQ RADIATION ONCOLOGY documented in this encounter Visit Diagnoses Not on filedocumented in this encounter Care Teams Painter Helper Relationship Specialty Start Date End Date Guillermo, MD Sneha [address] [place] [phone] PCP - General 01/23/23 documented as of this encounter
--- OUTSIDE RECORDS SUMMARY | 2024-04-01 16:42 | XMS_ITS | Encounter Summary ---
Author Organization [facility] Address [address] [place] [address] Care Team Providers Care Senior Data Quality Analyst Name Role Phone Sneha Li MD Primary Care Provider +1- [phone] Reason for Visit * Reason Comments OTV Encounter Details Date Type Department Care Team (Latest Contact Info) Description 03/26/2024 1:20 PM EST - 03/26/2024 11:59 PM EST Hospital Encounter [facility] Radiation Oncology [address] [phone] Samina Diaz MD 271 [place] [address] Primary squamous cell carcinoma of anus (CMS/HCC) [...] - Inhaled Oxygen Concentration - - Weight 51.5 kg (113 lb 9.6 oz) 03/26/2024 1:42 P M EST Height - - Body Mass Index 20.78 02/17/2024 9:11 PM EST documented in this [...] (one) time each day. 30 each 03/05/2024 fluticasone propion-salmeteroL (ADVAIR DISKUS) 500-50 mcg/dose diskus [...] 03/04/2024 5 documented as of this encounter Ordered Prescriptions Prescription Sig Dispense Quantity Refills Last Filled Start Date End Date silver sulfADIAZINE (SILVADENE, SSD) 1 % cream Apply topically 2 (two) times a day. Apply to affected area 2-3 times per day 400 g 03/26/2024 documented in this encounter Discharge Disposition Disposition Code Departure Means Destination Home or Self Care documented in this encounter Progress Notes * Yola Finley RN - 03/26/2024 1:20 PM ESTEncounter addended by: Yola Finley RN on: 03/26/2024 3:16 PM Actions taken: MAR administration accepted * Yola Finley RN - 03/26/2024 1:20 PM EST Accompanied by: video sign language used. Subjective: Patient is now at home. Has rocha catheter in place. Urine is cloudy Is patient experiencing any fatigue? Yes very tired this week Is patient experiencing any diarrhea or loose stools? Pt reports Friday and today she had watery stools in her ostomy How many per day? 0 Using anything for it? No Patient has ostomy Is there any rectal discomfort/pain with bowel movements? Pain in her upper buttocks. Feels like itis dry. Is there any blood in the stools? No Any skin irritation or desquamation? Yes Pt has rash and dryness in treatment area. Not using any lotions/creams at this point. Is patient on Chemo/Hydration/Labs? Yes Patient says she can't do sitz bath at home. Pt reports ostomy working well Pt reports appetite is good, she has been eating a lot. Also drinking 1 boost daily. Has gained 9 lbs x 1 week. * Samina Diaz MD - 03/26/2024 1:20 PM EST Radiation Oncology On Treatment Visit Patient Name: Yanna Power Attending Provider: Samina Diaz MD Encounter Date: 03/26/2024 DIAGNOSIS: 1. Primary squamous cell carcinoma of [...] Fraction Dose Fractions Total Dose Course 1 02/09/2024-03/26/2024 (days elapsed: 46) Pelvis/Anus 02/09/2024-03/26/2024 4 ARC VMAT 180 / 180 cGy 5220 / 5,400 cGy TOTAL PLANNED DOSE: 5400 cGy in 30 fractions CONCURRENT THERAPY: 5-FU and mitomycin, started on 02/12/2024. Med onc Dr. Medrano. Accompanied by: video ui designer used. Subjective: Patient is now at home. [...] LABS: Lab Results Component Value Date WBC 5.4 03/22/2024 HGB 9.8 (L) 03/22/2024 HCT 31.7 (L) 03/22/2024 MCV 85.0 03/22/2024 PLT 216 03/22/2024 Lab Results Component Value Date NA 134 03/22/2024 K 4.0 03/22/2024 CL 101 03/22/2024 CO2 27 03/22/2024 GLUCOSE 121 (H) 03/22/2024 BUN 6 03/22/2024 CREATININE 0.56 03/22/2024 CALCIUM 9.1 03/22/2024 PROT 6.6 03/22/2024 ALBUMIN 2.7 (L) 03/22/2024 BILITOT 0.3 03/22/2024 AST 13 03/22/2024 ALT 15 03/22/2024 PHOS 3.1 03/04/2024 MG 1.9 03/04/2024 ALKPHOS 117 03/22/2024 EGFR 111 03/22/2024 Physical Exam: There were no vitals filed for this visit. Patients weight: 119.6 lb on 02/13/24. General: appears in comfortable, sitting in wheelchair Has rocha Ostomy bag, contains some minimal stool today. Has diaper on, there is drainage from the anal area noted. Some ulcerated skin with volumeloss fromwhere the tumor was and is regressing. Skin in posterior anal area and gluteal fold has developed moist desquamation. Right groin has superficial lumps. Groin skin rowan, dry. Vulvar skin with some desquamation as well. Assessment/Plan: She is tolerating treatments well. Continue radiation as scheduled. I have reviewed set-up, dosimetry, and CBCT. EOT on 03/29/24, FU in ~ [address] Diaz for skin check. Keep rocha for now to allow for [...] [facility] Rad[facility] [address] [facility] [address]nd [place] [phone] Samina Diaz MD 271 [place] [address] 05/04/2024 11:20 AM EDT Office Visit [facility] [place] [facility] [place] [address] [facility] [address] [place] [phone] Lalito Miller MD [address] [facility] [address] [place] [address] documented as of this encounter Visit Diagnoses Diagnosis Primary squamous cell carcinoma of anus (CMS/HCC)- Primary Malignant neoplasm of anus, unspecified site documented in this encounter Administered Medications Inactive Administered Medications - up to 3 most recent administrations Medication Order MAR Action Action Date Dose Rate Site silver sulfADIAZINE (SILVADENE, SSD) 1 % cream Topical, Daily, First dose on Fri03/26/24 at 1430, Apply to affected area Given 03/26/2024 2:35 PM EST 1 Application Other documented in this encounter Care Teams Senior Data Quality Analyst Relationship Specialty Start Date End Date Sneha Li MD [address] [place] [phone] PCP - General 01/23/23 documented as of this encounter
--- OUTSIDE RECORDS SUMMARY | 2024-04-01 16:42 | XMS_ITS | Encounter Summary ---
Author Organization [employer] Address [address] [place] [address] Care Team Providers Care Web Art Director Name Role Phone Sneha Li MD Primary Care Provider +1- [phone] Encounter Details Date Type Department Care Team (Latest Contact Info) Description 03/22/2024 1:15 PM EST - 03/22/2024 11:59 PM EST Hospital Encounter [facility] Radiation Oncology [address] [phone] Discharge Disposition: Home or Self Care Social [...] Info) Description 04/13/2024 1:[address] [facility] Radiation Oncology [address] [facility] 2nd [place] [phone] Samina Diaz MD 271 [place] [address] 05/04/2024 11:20 AM EDT Office Visit [facility] [address] [facility] [address] [place] [address] Lalito Miller MD [address] [facility] [address] [place] [address] documented as of this encounter Procedures Procedure Name Priority Date/Time Associated Diagnosis Comments RAD ONC MSQ TREATMENT SUMMARY Routine 03/22/2024 1:34 PM EST documented in this encounter Results * Rad Onc Msq Treatment Summary (03/22/2024 1:34 PM EST) Treatment Site Pelvis/Anus MOS AIQ RADIATION ONCOLOGY Course Number 1 MOSAIQ RADIATION ONCOLOGY Prescribed Fractional Dose 180 cGray MOSAIQ RADIATION ONCOLOGY Prescribed Total Dose 5,400 cGray MOSAIQ RADIATION ONCOLOGY Actual Fractions Delivered 25 MOSAIQ RADIATION ONCOLOGY Prescription Pattern Comment Empty Colostomy Bag Pre TX. custom bolus, see plan MOSAIQ RADIATION ONCOLOGY Actual Session Delivered Dose 180 cGray MOSAIQ RADIATION ONCOLOGY Actual Total Dose 4,500 cGray MOSAIQ RADIATION ONCOLOGY Prescribed Technique 4 ARC VMAT MOSAIQ RADIATION ONCOLOGY Elapsed Days 42 MOSAIQ RADIATION ONCOLOGY Start Date 02/09/2024 MOSAIQ RADIATION ONCOLOGY Last Date 03/22/2024 MOSAIQ RADIATION ONCOLOGY Prescribed Number of Fractions 30 MOSAIQ RADIATION ONCOLOGY 03/22/2024 1:34 PM EST Physician Radiation Oncology RADIATION ONCOLO GY ORDERABLES Final Result MOSAIQ RADIATION ONCOLOGY documented in this encounter Visit Diagnoses Not on filedocumented in this encounter Care Teams Web Art Director Relationship Specialty Start Date End Date Sneha Li MD [address] [place] [phone] PCP - General 01/23/23 documented as of this encounter
--- OUTSIDE RECORDS SUMMARY | 2024-04-01 16:42 | XMS_ITS | Encounter Summary ---
Author Organization [employer] Address [address] [place] [address] Care Team Providers Care Die Maker Electronic Name Role Phone Sneha Li MD Primary Care Provider +1- [phone] Encounter Details Date Type Department Care Team (Latest Contact Info) Description 03/09/2024 1:02 PM EST - 03/09/2024 11:59 PM EST Hospital Encounter [facility] Radiation Oncology [address] [phone] Discharge Disposition: Home or Self Care Social [...] Info) Description 04/13/2024 1:30 PM EST Appointment [facility] Radiation Oncology [address] [place] [address] 2nd [place] [phone] Samina Diaz MD 271 [place] [address] 05/04/2024 11:20 AM EDT Office Visit [facility] 271 [facility] [address] [place] [phone] Lalito Milelr MD 271 [facility] [address] [place] [address] documented as of this encounter Procedures Procedure Name Priority Date/Time Associated Diagnosis Comments RAD ONC MSQ TREATMENT SUMMARY Routine 03/09/2024 1:42 PM EST documented in this encounter Results * Rad Onc Msq Treatment Summary (03/09/2024 1:42 PM EST) Treatment Site Pelvis/Anus MOS AIQ RADIATION ONCOLOGY Course Number 1 MOSAIQ RADIATION ONCOLOGY Prescribed Fractional Dose 180 cGray MOSAIQ RADIATION ONCOLOGY Prescribed Total Dose 5,400 cGray MOSAIQ RADIATION ONCOLOGY Actual Fractions Delivered 17 MOSAIQ RADIATION ONCOLOGY Prescription Pattern Comment Empty Colostomy Bag Pre TX. custom bolus, see plan MOSAIQ RADIATION ONCOLOGY Actual Session Delivered Dose 180 cGray MOSAIQ RADIATION ONCOLOGY Actual Total Dose 3,060 cGray MOSAIQ RADIATION ONCOLOGY Prescribed Technique 4 ARC VMAT MOSAIQ RADIATION ONCOLOGY Elapsed Days 29 MOSAIQ RADIATION ONCOLOGY Start Date 02/09/2024 MOSAIQ RADIATION ONCOLOGY Last Date 03/09/2024 MOSAIQ RADIATION ONCOLOGY Prescribed Number of Fractions 30 MOSAIQ RADIATION ONCOLOGY 03/09/2024 1:42 PM EST us Physician Radiation Oncology RADIATION ONCOLO GY ORDERABLES Final Result Performing Organization Address City/State/[facility] Co de Phone Number MOSAIQ RADIATION ONCOLOGY documented in this encounter Visit Diagnoses Not on filedocumented in this encounter Care Teams Die Maker Electronic Relationship Specialty Start Date End Date Sneha Li MD [address] [place] [address] [place] [phone] PCP - General 01/23/23 documented as of this encounter
--- OUTSIDE RECORDS SUMMARY | 2024-04-01 16:42 | XMS_ITS | Encounter Summary ---
Author Organization [email or web address] Address [address] [place] [address] Care Team Providers Care Auto Striper Name Role Phone Sneha Li MD Primary Care Provider +1- [phone] Encounter Details Date Type Department Care Team (Latest Contact Info) Description 03/18/2024 12:47 PM EST - 03/18/2024 11:59 PM EST Hospital Encounter [facility] Radiation Oncology [address] [phone] Discharge Disposition: Home or Self Care Social [...] Assessment Author Yes 02/05/2024 3:20 PM EST Aburey Gomez RN * Are you blind or [...] Info) Description 04/13/2024 1:30 PM EST Appointment [facility] Radiation Oncology 271 [facility] 2nd [place] [phone] Samina Diaz MD 271 [place] [address] 05/04/2024 11:20 AM EDT Office Visit Breast Care [facility] 271 [facility] [address] [place] [address] Lalito Miller MD 271 [facility] [address] [place] [address] documented as of this encounter Procedures Procedure Name Priority Date/Time Associated Diagnosis Comments RAD ONC MSQ TREATMENT SUMMARY Routine 03/18/2024 1:32 PM EST documented in this encounter Results * Rad Onc Msq Treatment Summary (03/18/2024 1:32 PM EST) Treatment Site Pelvis/Anus MOS AIQ RADIATION ONCOLOGY Course Number 1 MOSAIQ RADIATION ONCOLOGY Prescribed Fractional Dose 180 cGray MOSAIQ RADIATION ONCOLOGY Prescribed Total Dose 5,400 cGray MOSAIQ RADIATION ONCOLOGY Actual Fractions Delivered 23 MOSAIQ RADIATION ONCOLOGY Prescription Pattern Comment Empty Colostomy Bag Pre TX. custom bolus, see plan MOSAIQ RADIATION ONCOLOGY Actual Session Delivered Dose 180 cGray MOSAIQ RADIATION ONCOLOGY Actual Total Dose 4,140 cGray MOSAIQ RADIATION ONCOLOGY Prescribed Technique 4 ARC VMAT MOSAIQ RADIATION ONCOLOGY Elapsed Days 38 MOSAIQ RADIATION ONCOLOGY Start Date 02/09/2024 MOSAIQ RADIATION ONCOLOGY Last Date 03/18/2024 MOSAIQ RADIATION ONCOLOGY Prescribed Number of Fractions 30 MOSAIQ RADIATION ONCOLOGY 03/18/2024 1:32 PM EST Physician Radiation Oncology RADIATION ONCOLO GY ORDERABLES Final Result MOSAIQ RADIATION ONCOLOGY documented in this encounter Visit Diagnoses Not on filedocumented in this encounter Care Teams Auto Striper Relationship Specialty Start Date End Date Sneha Li MD [address] [place] [phone] PCP - General 01/23/23 documented as of this encounter
--- OUTSIDE RECORDS SUMMARY | 2024-04-01 16:42 | XMS_ITS | Encounter Summary ---
Author Organization [facility] Address [address] [place] [address] Care Team Providers Care Orchestra Musician Name Role Phone Sneha Li MD Primary Care Provider +1- [phone] Encounter Details Date Type Department Care Team (Latest Contact Info) Description 03/24/2024 11:00 AM EST - 03/24/2024 11:59 PM EST Hospital Encounter [facility] Infusion Center [address] [phone] Arlen Medrano, DO 271 [place] [address] Rectal mass (Primary Dx); Primary squamous cell carcinoma of anus (CMS/HCC) Discharge Disposition: Home or Self Care Social [...] Sign Reading Time Taken Comments Blood Pressure 107/58 03/24/2024 1:01 PM EST Pulse 85 03/24/2024 1:01 PM EST Temperature 36.2 ??C (97.2 ??F) 03/24/2024 11:[address] Respiratory Rate 18 03/24/2024 11:50 AM EST Oxygen Saturation 100% 03/24/2024 11:50 AM EST Inhaled Oxygen Concentration - - Weight - - Height - - Body Mass Index - - documented in this encounter Functional Status * [...] in this encounter Progress Notes * Kym Louis, RN - 03/24/2024 11:00 AM EST 1199 arrives via stretcher with [facility]. She looks well and reports, using video steak sauce maker, Erin, that she is feeling fine, no nausea or vomiting, no changes to stool, and overall feels normal she is in good spirits and is accompanied by her home CUTTER GRINDER OPERATOR, Kimmie. 5 fluorouracil is infusing as programed, and no problems over the past two days with the pump. IV hydration initiated and tarun gianni provided. Call wong in reach. 1230 ate lunch and tolerated well 1310 IV hydration completed without incident, transported via wheelchair to RT. Will return Friday for pump removal. documented in this encounter Plan of Treatment Upcoming Encounters Date Type Department Care Team (Late st Contact Info) Description 04/13/2024 1:30 PM EST Appointment [facility] Radiation Oncology 271 [facility] 2nd [place] [phone] Samina Diaz MD 271 [place] [address] 05/04/2024 11:20 AM EDT Office [facility] 271 [facility] [address] [place] [phone] Lalito Miller MD 271 [facility] 110 [place] [address] documented as of this encounter Visit Diagnoses Diagnosis Rectal mass- Primary Other symptoms involving digestive system Primary squamous cell carcinoma of anus (CMS/HCC) Malignant neoplasm of anus, unspecified site documented in this encounter Administered Medications Inactive Administered Medications - up to 3 most recent administrations Medication Order MAR Action Action Date Dose Rate Site sodium chloride 0.9 % bolus 1,000 mL 1,000 mL, intravenous, at 1,000 mL/hr, Administer over 1 Hours, Once, On Fri03/24/24 at 1200, For 1 dose New Bag 03/24/2024 12:00 PM EST 1,000 mL 1000 mL/hr documented in this encounter Orders Medications Ordered That Kashmir ht Not Have Been Administered Count Last Ordered Date First Ordered Date sodium chloride 0.9 % bolus 1,000 mL 1 03/13 documented in this encounter Care Teams Orchestra Musician Relationship Specialty Start Date End Date Sneha Li MD 230 [facility] 1 [place] [address] PCP - General 01/23/23 documented as of this encounter
--- OUTSIDE RECORDS SUMMARY | 2024-04-01 16:42 | XMS_ITS | Encounter Summary ---
Author Organization [employer] Address [address] [place] [address] Care Team Providers Care Finance Clerk Name Role Phone Sneha Li MD Primary Care Provider +1- [phone] Encounter Details Date Type Department Care Team (Latest Contact Info) Description 03/23/2024 1:15 PM EST - 03/23/2024 11:59 PM EST Hospital Encounter [facility] Radiation Oncology [address] [phone] Discharge Disposition: Home or Self Care Social [...] Description 04/13/2024 1:[address] [facility] Radiation Oncology 271 [facility] 2nd [place] [phone] Samina Diaz MD 271 [place] [address] 05/04/2024 11:20 AM EDT Office Visit Breast Care [facility] 271 [facility] [address] [place] [address] Lalito Miller MD 271 [facility] [address] [place] [address] documented as of this encounter Procedures Procedure Name Priority Date/Time Associated Diagnosis Comments RAD ONC MSQ TREATMENT SUMMARY Routine 03/23/2024 1:38 PM EST documented in this encounter Results * Rad Onc Msq Treatment Summary (03/23/2024 1:38 PM EST) Treatment Site Pelvis/Anus MOS AIQ RADIATION ONCOLOGY Course Number 1 MOSAIQ RADIATION ONCOLOGY Prescribed Fractional Dose 180 cGray MOSAIQ RADIATION ONCOLOGY Prescribed Total Dose 5,400 cGray MOSAIQ RADIATION ONCOLOGY Actual Fractions Delivered 26 MOSAIQ RADIATION ONCOLOGY Prescription Pattern Comment Empty Colostomy Bag Pre TX. custom bolus, see plan MOSAIQ RADIATION ONCOLOGY Actual Session Delivered Dose 180 cGray MOSAIQ RADIATION ONCOLOGY Actual Total Dose 4,680 cGray MOSAIQ RADIATION ONCOLOGY Prescribed Technique 4 ARC VMAT MOSAIQ RADIATION ONCOLOGY Elapsed Days 43 MOSAIQ RADIATION ONCOLOGY Start Date 02/09/2024 MOSAIQ RADIATION ONCOLOGY Last Date 03/23/2024 MOSAIQ RADIATION ONCOLOGY Prescribed Number of Fractions 30 MOSAIQ RADIATION ONCOLOGY 03/23/2024 1:38 PM EST Physician Radiation Oncology RADIATION ONCOLO GY ORDERABLES Final Result MOSAIQ RADIATION ONCOLOGY documented in this encounter Visit Diagnoses Not on filedocumented in this encounter Care Teams Finance Clerk Relationship Specialty Start Date End Date Sneha Li MD [address] [place] [phone] PCP - General 01/23/23 documented as of this encounter
--- OUTSIDE RECORDS SUMMARY | 2024-04-01 16:42 | XMS_ITS | Encounter Summary ---
Author Organization [employer] Address [address] [place] [address] Care Team Providers Care Heatset Winder Operator Name Role Phone Sneha Li MD Primary Care Provider +1- [phone] Encounter Details Date Type Department Care Team (Late st Contact Info) Description 03/22/2024 10:45 AM EST Office Visit [facility] Hematology Oncology 271 [place] [phone] Arlen Medrano, DO 271 [place] [address] Anal cancer (CMS/HCC) (Primary Dx); Port-A-Cath in place; Cancer associated pain; Mild anemia Social History Tobacco Use Types Packs/Day Years [...] as of this encounter Progress Notes * Arlen Medrano, DO - 03/22/2024 10:45 AM EST Hematology/Oncology Follow Up Note Date: 03/23/2024 Subjective Interval history Certified completion engineer via secure video Ana Maria #[id number] was utilized for the duration of today's visit Yanna is seen for follow-up in the infusion suite. Since last visit the patient was admitted for hypotension. She was started on midodrine, received IV fluids. She was ultimately discharged home. She has been going for daily radiation under the care of Dr. Diaz. States that overall she is feeling okay. She denies any neuropathy. She denies any mouth sores. Hasnot noted any rashes. She feels her posterior sacral wound is improving. Onc hx Oncology History Overview Note Initially felt to be due to hemorrhoids. She then developed a lump in the groin area. Ultimately was evaluated in [place] [facility] and imaging showed a soft tissue mass in the low pelvis prescaral region measuring 6.7 x 5.4 x 10.1 cm with invasion of rectosigmoid colon and cervix and veagina, and multiple enlarged lymph nodes. She was admitted to hospital for further work up. 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 Then on 11/05 had proctoscopy with biopsy which showed large mass like lesion pathology also squamous cell cancer. A week later was re-admitted and ended up having a colostomy placed. Primary squamous cell carcinoma of anus (CMS/HCC) 01/01/2024 Cancer Staged Staging form: Anus, AJCC V9 - Clinical: Stage IIIC (cT4, cN1, cM0) - Signed by Samina Diaz MD on 01/01/2024 Past Medical History Congenital deafness Schizophrenia Asthma Lyme disease Vit D deficiency Anal cancer Past Surgical History Cholecystectomy Colostomy placement Bunion surgery Foot surgery Tubal ligation Family History No family history on file. Personal and Social History Social History Tobacco Use Smoking Status Former Types: Cigarettes Smokeless Tobacco Never Social History Substance and Sexual Activity Alcohol Use Not Currently Social History Substance and Sexual Activity Drug Use Never REVIEW OF SYSTEMS: Constitutional: see above Respiratory: No cough, Cardiac: No chest pain, palpitations GI: + rectal pain. Skin: No rashes or ease of bruising Neuro: No headaches, dizziness, Musculoskeletal: No bone pain, no joint pain. Objective Medications Current Outpatient Medications: ferrous sulfate 325 mg (65 mg elemental iron) tablet, Take 1 tablet (325 mg total) by mouth 2 timesdaily. (Patient not taking: Reported on 03/22/2024), Disp: , Rfl: fludrocortisone (FLORINEF) 0.1 mg tablet, Take 1 tablet (0.1 mg total) by mouth 1 (one) time each day., Disp: 30 each, Rfl: 0 fluticasone propion-salmeteroL (ADVAIR DISKUS) 500-50 mcg/dose diskus inhaler, Inhale 500 mcg by mouth 2 times daily., Disp: , Rfl: folic acid (FOLVITE) 1 mg tablet, Take 1 tablet (1,000 mcg total) by mouth daily., Disp: , Rfl: hydrocortisone (ANUSOL-HC) 2.5 % rectal cream, , Disp: , Rfl: LORazepam (ATIVAN) 0.5 mg tablet, Take 1 tablet (0.5 mg total) by mouth 2 (two) times a day if needed for anxiety., Disp: , Rfl: melatonin 3 mg tablet, Take 2 tablets (6 mg total) by mouth at bedtime as needed., Disp: , Rfl: midodrine (PROAMATINE) 5 mg tablet, Take 1 tablet (5 mg total) by mouth 3 (three) times a day before meals., Disp: 90 each, Rfl: 0 multivitamin tablet, Take 1 tablet by mouth 1 (one) time each day., Disp: 30 each, Rfl: 0 ondansetron (ZOFRAN) 8 mg tablet, Take 1 tablet (8 mg total) by mouth every 8 (eight) hours if needed for nausea or vomiting., Disp: , Rfl: oxyCODONE (OxyCONTIN) 20 mg 12 hr abuse-deterrent tablet, Take 1 tablet (20 mg total) by mouth every 12 (twelve) hours. Do not crush, chew, or split. (Patient not taking: Reported on 03/22/2024), Disp: , Rfl: oxyCODONE (ROXICODONE) 5 mg immediate release tablet, Take 1 tablet (5 mg total) by mouth every 4 (four) hours if needed for severe pain or moderate pain., Disp: , Rfl: polyethylene glycol (MIRALAX) 17 gram packet, Take 17 g by mouth 1 (one) time each day if needed for constipation., Disp: 51 g, Rfl: 0 risperiDONE (RisperDAL) 1 mg tablet, Take 1 tablet (1 mg total) by mouth 2 (two) times a day., Disp: , Rfl: risperiDONE (RisperDAL) 4 mg tablet, Take 1 tablet (4 mg total) by mouth at bedtime., Disp: , Rfl: thiamine (VITAMIN B-1) 100 mg tablet, Take 1 tablet (100 mg total) by mouth 1 (one) time each day.,Disp: 30 tablet, Rfl: 0 No current facility-administered medications for this visit. Facility-Administered Medications Ordered in Other Visits: fluorouracil (ADRUCIL) 4,350 mg in sodium chloride 0.9 % 144 mL chemo infusion, 750 mg/m2/day, intravenous, Over 96 hr, Arlen Medrano, DO, 4,350 mg at 03/22/24 1510 Allergies No Known Allergies PHYSICAL EXAM BP 104/58 (BP Location: Right arm, Patient Position: Lying, BP Cuff Size: Small adult) Pulse 99 Temp 36.4 ??C (97.6 ??F) (Temporal) Resp 18 Wt 47.3 kg (104 lb 4.8 oz) SpO2 99% Performance Status: 1 General: pale thin middle aged woman, HENT: no scleral icterus Chest: port in place Resp: normal inspiratory effort, Cardio: RRR, Abdomen: soft , ostomy in place draining soft brown stool. Neuro: alert and oriented, Labs Lab Results Component Value Date WBC 5.4 03/22/2024 RBC 3.70 (L) 03/22/2024 HGB 9.8 (L) 03/22/2024 HCT 31.7 (L) 03/22/2024 MCV 85.0 03/22/2024 MCHC 30.9 (L) 03/22/2024 RDW 24.9 (H) 03/22/2024 PLT 216 03/22/2024 MPV 10.0 03/22/2024 NRBC 0.0 03/22/2024 DIFF Lab Results Component Value Date LYMPHOPCT 7.6 03/22/2024 NEUTROABS 4.18 03/22/2024 LYMPHSABS 0.41 (L) 03/22/2024 MONOABS 0.60 03/22/2024 EOSABS 0.12 03/22/2024 BASOSABS 0.02 03/22/2024 IMMGRANABS 0.04 (H) 03/22/2024 Assessment & Plan 53 year old female congenital deafness, presents for follow up of anal cancer. The patient presented with large symptomatic bulky disease , along with multiple metastatic lymph nodes. She was seen and evaluated by multidisciplinary team and recommendation was to proceed with concurrent chemotherapywith radiation. Due to the patient missing several visits the start of her treatment was delayed. She has now completed the first 3 weeks of treatment and is here for the final dose of chemotherapy. Squamous cell carcinoma of anus, p16+ Cancer associated pain Mild anemia Proceed with chemotherapy today, second and final dose of 5FU and mitomycin, (day 1 and day 29) Given her significant hospitalization after last chemotherapy, will dose attenuate both the 5-FU and mitomycin Labs ordered to be done today CBC CMP magnesium Monitor for side effects of cancer directed therapy Return on Friday and Friday for 1 L of intravenous fluids, consider also to return next week forfluids as well. Continue on as needed Compazine and Zofran, recommend also Imodium if ostomy output becomes more watery Return in a few weeks for follow-up Continue on as needed pain medication Will also recommend follow-up with dietitian. Have asked that the patient bring her medication list to the next visit so we know which she is taking at home. Sign: Pamela Medrano DO Hematology/Oncology [facility] [phone] documented in this encounter Plan of Treatment Upcoming Encounters Date Type Department Care Team (Late st Contact Info) Description 04/13/2024 1:30 PM EST Appointment [facility] Radiation Oncology 271 [facility] 2nd [place] [phone] Samina Diaz MD 271 [place] [address] 05/04/2024 11:20 AM EDT Office Visit Breast Care [facility] 271 [facility] [address] [place] [phone] Lalito Miller MD 271 [facility] 110 [place] [address] documented as of this encounter Visit Diagnoses Diagnosis Anal cancer (CMS/HCC)- Primary Malignant neoplasm of anus, unspecified site Port-A-Cath in place Cancer associated pain Neoplasm related pain (acute) (chronic) Mild anemia documented in this encounter Care Teams Heatset Winder Operator Relationship Specialty Start Date End Date Sneha Li MD 230 [facility] 1 [place] [address] PCP - General 01/23/23 documented as of this encounter
--- OUTSIDE RECORDS SUMMARY | 2024-04-01 16:42 | XMS_ITS | Encounter Summary ---
Author Organization [employer] Address [address] [place] [address] Care Team Providers Care Appraisal Manager Name Role Phone Sneha Li MD Primary Care Provider +1- [phone] Encounter Details Date Type Department Care Team (Latest Contact Info) Description 03/25/2024 1:03 PM EST - 03/25/2024 11:59 PM EST Hospital Encounter [facility] Radiation Oncology [address] [phone] Discharge Disposition: Home or Self Care Social [...] Info) Description 04/13/2024 1:30 PM EST Appointment [facility] Radiation Oncology 271 [facility] 2nd [place] [phone] Samina Diaz MD 271 [place] [address] 05/04/2024 11:20 AM EDT Office Visit Breast Care [facility] 271 [facility] [address] [place] [address] Lalito Miller MD 271 [facility] [address] [place] [address] documented as of this encounter Procedures Procedure Name Priority Date/Time Associated Diagnosis Comments RAD ONC MSQ TREATMENT SUMMARY Routine 03/25/2024 1:26 PM EST documented in this encounter Results * Rad Onc Msq Treatment Summary (03/25/2024 1:26 PM EST) Treatment Site Pelvis/Anus MOS AIQ RADIATION ONCOLOGY Course Number 1 MOSAIQ RADIATION ONCOLOGY Prescribed Fractional Dose 180 cGray MOSAIQ RADIATION ONCOLOGY Prescribed Total Dose 5,400 cGray MOSAIQ RADIATION ONCOLOGY Actual Fractions Delivered 28 MOSAIQ RADIATION ONCOLOGY Prescription Pattern Comment Empty Colostomy Bag Pre TX. custom bolus, see plan MOSAIQ RADIATION ONCOLOGY Actual Session Delivered Dose 180 cGray MOSAIQ RADIATION ONCOLOGY Actual Total Dose 5,040 cGray MOSAIQ RADIATION ONCOLOGY Prescribed Technique 4 ARC VMAT MOSAIQ RADIATION ONCOLOGY Elapsed Days 45 MOSAIQ RADIATION ONCOLOGY Start Date 02/09/2024 MOSAIQ RADIATION ONCOLOGY Last Date 03/25/2024 MOSAIQ RADIATION ONCOLOGY Prescribed Number of Fractions 30 MOSAIQ RADIATION ONCOLOGY 03/25/2024 1:26 PM EST Physician Radiation Oncology RADIATION ONCOLO GY ORDERABLES Final Result MOSAIQ RADIATION ONCOLOGY documented in this encounter Visit Diagnoses Not on filedocumented in this encounter Care Teams Appraisal Manager Relationship Specialty Start Date End Date Sneha Li MD [address] [place] [phone] PCP - General 01/23/23 documented as of this encounter
--- OUTSIDE RECORDS SUMMARY | 2024-04-01 16:42 | XMS_ITS | Encounter Summary ---
Author Organization [employer] Address [address] [facility] 7t [place] [address] Care Team Providers Care Plate Put In Worker Name Role Phone Sneha Li MD Primary Care Provider +1- [phone] Reason for Visit * Reason Onset Date Comments FYI 05/06/2023 Encounter Details Date Type Department Care Team ([facility] st Contact Info) Description 05/06/2023 Telephone [facility] 230 [place], [place] [phone] Sneha Li MD 230 [place], [place] [phone] FYI Social History Tobacco Use Types Packs/Day [...] encounter Miscellaneous Notes * Telephone Encounter - Jimmy Boss - 05/06/2023 3:02 PM EDT Tc darron Adhikari at [facility] calling to inform the PCP the patient denied PT services andstated does not need it documented in this encounter Plan of Treatment Not on file documented as of this encounter Visit Diagnoses Not on filedocumented in this encounter Care Teams Plate Put In Worker Relationship Specialty Start Date End Date Guillermo, MD Sneha [address] [place] [address] PCP - General Family Medicine 10/02/18 Dr. Lalito Miller MD [address] [address] Gynecologic Oncology 12/31/23 Dr. Samina Diaz [facility] Radiation Oncology 12/04/23 Dr. Pamela Medrano DO, Oncology 11/26/23 [facility] 11/20/23 documented as of this encounter
--- OUTSIDE RECORDS SUMMARY | 2024-04-01 16:42 | XMS_ITS | Encounter Summary ---
Author Organization [employer] Address [address] [place] [address] Care Team Providers Care Product Handler Name Role Phone Sneha Li MD Primary Care Provider +1- [phone] Encounter Details Date Type Department Care Team (Latest Contact Info) Description 03/04/2024 1:15 PM EST - 03/04/2024 11:59 PM EST Hospital Encounter [facility] Radiation Oncology [address] [phone] Discharge Disposition: Home or Self Care Social [...] Info) Description 04/13/2024 1:30 PM EST Appointment [facility] Radiation Oncology [address] [phone] Samina Diaz MD 271 [place] [address] 05/04/2024 11:20 AM EDT Office Visit [facility] [address] [facility] [address] [place] [phone] Lalito Miller MD 271 [facility] 110 [place] [address] documented as of this encounter Procedures Procedure Name Priority Date/Time Associated Diagnosis Comments RAD ONC MSQ TREATMENT SUMMARY Routine 03/04/2024 1:59 PM EST documented in this encounter Results * Rad Onc Msq Treatment Summary (03/04/2024 1:59 PM EST) Treatment Site Pelvis/Anus MOS AIQ RADIATION ONCOLOGY Course Number 1 MOSAIQ RADIATION ONCOLOGY Prescribed Fractional Dose 180 cGray MOSAIQ RADIATION ONCOLOGY Prescribed Total Dose 5,400 cGray MOSAIQ RADIATION ONCOLOGY Actual Fractions Delivered 14 MOSAIQ RADIATION ONCOLOGY Prescription Pattern Comment Empty Colostomy Bag Pre TX. custom bolus, see plan MOSAIQ RADIATION ONCOLOGY Actual Session Delivered Dose 180 cGray MOSAIQ RADIATION ONCOLOGY Actual Total Dose 2,520 cGray MOSAIQ RADIATION ONCOLOGY Prescribed Technique 4 ARC VMAT MOSAIQ RADIATION ONCOLOGY Elapsed Days 24 MOSAIQ RADIATION ONCOLOGY Start Date 02/09/2024 MOSAIQ RADIATION ONCOLOGY Last Date 03/04/2024 MOSAIQ RADIATION ONCOLOGY Prescribed Number of Fractions 30 MOSAIQ RADIATION ONCOLOGY 03/04/2024 1:59 PM EST us Physician Radiation Oncology RADIATION ONCOLO GY ORDERABLES Final Result MOSAIQ RADIATION ONCOLOGY documented in this encounter Visit Diagnoses Not on filedocumented in this encounter Care Teams Product Handler Relationship Specialty Start Date End Date Sneha Li MD 230 [facility] 1 [place] [address] PCP - General 01/23/23 documented as of this encounter
--- OUTSIDE RECORDS SUMMARY | 2024-04-01 16:42 | XMS_ITS | Encounter Summary ---
Author Organization [employer] Address [address] [place] [address] Care Team Providers Care Tax Compliance Agent Name Role Phone Sneha Li MD Primary Care Provider +1- [phone] Encounter Details Date Type Department Care Team (Latest Contact Info) Description 03/03/2024 12:45 PM EST - 03/03/2024 11:59 PM EST Hospital Encounter [facility] Radiation Oncology [address] [phone] Discharge Disposition: Home or Self Care Social [...] Description 04/13/2024 1:[address] [facility] Radiation Oncology [address] [phone] Samina Diaz MD 271 [place] [address] 05/04/2024 11:20 AM EDT Office Visit [facility] [address] [facility] [address] [place] [phone] Lalito Miller MD 271 [facility] 110 [place] [address] documented as of this encounter Procedures Procedure Name Priority Date/Time Associated Diagnosis Comments RAD ONC MSQ TREATMENT SUMMARY Routine 03/03/2024 1:33 PM EST documented in this encounter Results * Rad Onc Msq Treatment Summary (03/03/2024 1:33 PM EST) Treatment Site Pelvis/Anus MOS AIQ RADIATION ONCOLOGY Course Number 1 MOSAIQ RADIATION ONCOLOGY Prescribed Fractional Dose 180 cGray MOSAIQ RADIATION ONCOLOGY Prescribed Total Dose 5,400 cGray MOSAIQ RADIATION ONCOLOGY Actual Fractions Delivered 13 MOSAIQ RADIATION ONCOLOGY Prescription Pattern Comment Empty Colostomy Bag Pre [place]. custom bolus, see plan MOSAIQ RADIATION ONCOLOGY Actual Session Delivered Dose 180 cGray MOSAIQ RADIATION ONCOLOGY Actual Total Dose 2,340 cGray MOSAIQ RADIATION ONCOLOGY Prescribed Technique 4 ARC VMAT MOSAIQ RADIATION ONCOLOGY Elapsed Days 23 MOSAIQ RADIATION ONCOLOGY Start Date 02/09/2024 MOSAIQ RADIATION ONCOLOGY Last Date 03/03/2024 MOSAIQ RADIATION ONCOLOGY Prescribed Number of Fractions 30 MOSAIQ RADIATION ONCOLOGY 03/03/2024 1:33 PM EST us Physician Radiation Oncology RADIATION ONCOLO GY ORDERABLES Final Result MOSAIQ RADIATION ONCOLOGY documented in this encounter Visit Diagnoses Not on filedocumented in this encounter Care Teams Tax Compliance Agent Relationship Specialty Start Date End Date Sneha Li MD 230 [facility] 1 [place] [address] PCP - General 01/23/23 documented as of this encounter
--- OUTSIDE RECORDS SUMMARY | 2024-04-01 16:42 | XMS_ITS | Encounter Summary ---
Author Organization [facility] Address [address] [place] [address] Care Team Providers Care Still Operator Batch Or Continuous Name Role Phone Sneha Li MD Primary Care Provider +1- [phone] Encounter Details Date Type Department Care Team (Latest Contact Info) Description 03/26/2024 2:00 PM EST - 03/26/2024 11:59 PM EST Hospital Encounter [facility] [address] [phone] Arlen Medrano, DO 271 [place] [address] Rectal mass (Primary Dx); Primary squamous cell [...] Sign Reading Time Taken Comments Blood Pressure 109/73 03/26/2024 4:19 PM EST Pulse 83 03/26/2024 2:31 PM EST Temperature 36.2 ??C (97.2 ??F) 03/26/2024 2:31 PM ES T Respiratory Rate 16 03/26/2024 2:31 PM EST Oxygen Saturation 98% 03/26/2024 2:31 PM EST Inhaled Oxygen Concentration - - Weight [...] this encounter Progress Notes * Kym Louis, CHELI - 03/26/2024 2:00 PM EST 1430 May arrives for 5 fu pump removal and scheduled hydration. 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 She returns after RT. Using wet finisher, Marta, May reports that she continues to feel well. She is eating well and her colostomy is outputting unformed brown stool, that is not watery. Her rocha catheter is draining peg urine. Hydration initiated, BP low on arrival, May denies feeling weak or dizzy. Call wong in reach. Resting. Taking tarun gianni. 1600 one liter of hydration complete. BP improved. Fluorouracil fully infused. Port a cath needle removed and port flushed. Message sent to Dr. Medrano regarding next follow up with Dr. Medrano. I told May I would reach out to her with next follow up. documented in this encounter Plan of Treatment Upcoming Encounters Date Type Department Care Team (Late st Contact Info) Description 04/13/2024 1:[address] [facility] Radiation Oncology 271 [facility] 2nd [place] [phone] Samina Diaz MD 271 [place] [address] 05/04/2024 11:20 AM EDT Office Visit [facility] [address] [facility] [address] [place] [phone] Lalito Miller MD 271 [facility] 110 [place] [address] documented as of this encounter Visit Diagnoses [...] mL/hr, Administer over 1 Hours, Once, On Fri03/26/24 at 1500, For 1 dose New Bag 03/26/2024 2:55 PM EST 1,000 mL 100 0 mL/hr documented in this encounter Orders Medications Ordered That [place] ht Not Have Been Administered Count Last Ordered Date First Ordered Date sodium chloride 0.9 % bolus 1,000 mL 1 03/13 documented in this encounter Care Teams Still Operator Batch Or Continuous Relationship Specialty Start Date End Date Sneha Li MD [address] [place] [phone] PCP - General 01/23/23 documented as of this encounter
--- OUTSIDE RECORDS SUMMARY | 2024-04-01 16:42 | XMS_ITS | Encounter Summary ---
Author Organization [email or web address] Address [address] [place] [address] Care Team Providers Care Auricular Therapist Name Role Phone Sneha Li MD Primary Care Provider +1- [phone] Reason for Visit * Reason Onset Date Comments clamp catheter 03/03/2024 Encounter Details Date Type Department Care Team (Late st Contact Info) Description 03/03/2024 Telephone [facility] Radiation Oncology [address] [phone] Yola Finley RN clamp catheter Social History Tobacco Use Types Packs/Day Years [...] Gomez RN documented as of this encounter Progress Notes * Yola Finley RN - 03/03/2024 9:14 AM EST T/C to inpatient floor and spoke to nurse Cathleen. Requested that pt be given 20 oz of water to drink at 12pm and to have pt drink water within 10 minutes after getting it and to clamp her rocha cath at the same time. Cathleen verbalized understanding. documented in this encounter Plan of Treatment Upcoming Encounters Date Type Department Care Team (Late st Contact Info) Description 04/13/2024 1:30 PM EST Appointment [facility] Radiation Oncology 271 [facility] 2nd [place] [address] Samina Diaz MD 271 [place] [address] 05/04/2024 11:20 AM EDT Office Visit [facility] 271 [facility] [address] [place] [phone] Lalito Miller MD 271 [facility] 110 [place] [address] documented as of this encounter Visit Diagnoses Not on filedocumented in this encounter Care Teams Auricular Therapist Relationship Specialty Start Date End Date Sneha Li MD [address] [place] [address] 1 [place] [address] PCP - General 01/23/23 documented as of this encounter
--- OUTSIDE RECORDS SUMMARY | 2024-04-01 16:42 | XMS_ITS | Encounter Summary ---
Author Organization [employer] Address [address] [place] [address] Care Team Providers Care Educational Resource Coordinator Name Role Phone Sneha Li MD Primary Care Provider +1- [phone] Encounter Details Date Type Department Care Team (Latest Contact Info) Description 03/05/2024 1:15 PM EST - 03/05/2024 11:59 PM EST Hospital Encounter [facility] Radiation Oncology [address] [phone] Discharge Disposition: Home or Self Care Social [...] Description 04/13/2024 1:30 PM EST Appointment [facility] Radiation Oncology [address] [phone] Samina Diaz MD 271 [place] [address] 05/04/2024 11:20 AM EDT Office Visit [facility] [address] [facility] [address] [place] [phone] Lalito Miller MD 271 [facility] 110 [place] [address] documented as of this encounter Procedures Procedure Name Priority Date/Time Associated Diagnosis Comments RAD ONC MSQ TREATMENT SUMMARY Routine 03/05/2024 1:54 PM EST documented in this encounter Results * Rad Onc Msq Treatment Summary (03/05/2024 1:54 PM EST) Treatment Site Pelvis/Anus MOS AIQ RADIATION ONCOLOGY Course Number 1 MOSAIQ RADIATION ONCOLOGY Prescribed Fractional Dose 180 cGray MOSAIQ RADIATION ONCOLOGY Prescribed Total Dose 5,400 cGray MOSAIQ RADIATION ONCOLOGY Actual Fractions Delivered 15 MOSAIQ RADIATION ONCOLOGY Prescription Pattern Comment Empty Colostomy Bag Pre [place]. custom bolus, see plan MOSAIQ RADIATION ONCOLOGY Actual Session Delivered Dose 180 cGray MOSAIQ RADIATION ONCOLOGY Actual Total Dose 2,700 cGray MOSAIQ RADIATION ONCOLOGY Prescribed Technique 4 ARC VMAT MOSAIQ RADIATION ONCOLOGY Elapsed Days 25 MOSAIQ RADIATION ONCOLOGY Start Date 02/09/2024 MOSAIQ RADIATION ONCOLOGY Last Date 03/05/2024 MOSAIQ RADIATION ONCOLOGY Prescribed Number of Fractions 30 MOSAIQ RADIATION ONCOLOGY 03/05/2024 1:54 PM EST us Physician Radiation Oncology RADIATION ONCOLO GY ORDERABLES Final Result MOSAIQ RADIATION ONCOLOGY documented in this encounter Visit Diagnoses Not on filedocumented in this encounter Care Teams Educational Resource Coordinator Relationship Specialty Start Date End Date Sneha Li MD 230 [facility] 1 [place] [address] PCP - General 01/23/23 documented as of this encounter
--- OUTSIDE RECORDS SUMMARY | 2024-04-01 16:42 | XMS_ITS | Encounter Summary ---
Author Organization [employer] Address [address] [place] [address] Care Team Providers Care Industrial Diamond Polisher Name Role Phone Sneha Li MD Primary Care Provider +1- [phone] Encounter Details Date Type Department Care Team (Latest Contact Info) Description 03/17/2024 12:55 PM EST - 03/17/2024 11:59 PM EST Hospital Encounter [facility] Radiation Oncology [address] [phone] Discharge Disposition: Home or Self Care Social [...] of Assessment Author Yes 02/05/2024 3:20 PM Aburey Millan RN documented as of this encounter [...] Description 04/13/2024 1:30 PM EST Appointment [facility] Radiation Oncology 271 [facility] 2nd [place] [phone] Samina Diaz MD 271 [place] [address] 05/04/2024 11:20 AM EDT Office Visit [facility] 271 [facility] [address] [place] [address] Lalito Miller MD 271 [facility] 110 [place] [address] documented as of this encounter Procedures Procedure Name Priority Date/Time Associated Diagnosis Comments RAD ONC MSQ TREATMENT SUMMARY Routine 03/17/2024 1:19 PM EST documented in this encounter Results * Rad Onc Msq Treatment Summary (03/17/2024 1:19 PM EST) Treatment Site Pelvis/Anus MOS AIQ RADIATION ONCOLOGY Course Number 1 MOSAIQ RADIATION ONCOLOGY Prescribed Fractional Dose 180 cGray MOSAIQ RADIATION ONCOLOGY Prescribed Total Dose 5,400 cGray MOSAIQ RADIATION ONCOLOGY Actual Fractions Delivered 22 MOSAIQ RADIATION ONCOLOGY Prescription Pattern Comment Empty Colostomy Bag Pre [place]. custom bolus, see plan MOSAIQ RADIATION ONCOLOGY Actual Session Delivered Dose 180 cGray MOSAIQ RADIATION ONCOLOGY Actual Total Dose 3,960 cGray MOSAIQ RADIATION ONCOLOGY Prescribed Technique 4 ARC VMAT MOSAIQ RADIATION ONCOLOGY Elapsed Days 37 MOSAIQ RADIATION ONCOLOGY Start Date 02/09/2024 MOSAIQ RADIATION ONCOLOGY Last Date 03/17/2024 MOSAIQ RADIATION ONCOLOGY Prescribed Number of Fractions 30 MOSAIQ RADIATION ONCOLOGY 03/17/2024 1:19 PM EST Physician Radiation Oncology RADIATION ONCOLO GY ORDERABLES Final Result MOSAIQ RADIATION ONCOLOGY documented in this encounter Visit Diagnoses Not on filedocumented in this encounter Care Teams Industrial Diamond Polisher Relationship Specialty Start Date End Date Sneha Li MD [address] [place] [phone] PCP - General 01/23/23 documented as of this encounter
--- OUTSIDE RECORDS SUMMARY | 2024-04-01 16:43 | XMS_ITS | Encounter Summary ---
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 I have elidia [place]rison 10/08/[address] you li ve. Do you have problems with any of the following? None of the above 10/08/2023 Food Insecurity Answer Date Recorded Within the past 12 months, y ou worried that your food would run out before you got money to buy more: Never True 10/08/2023 Within the past 12 months,th e food you bought just didn't last and you didn't have enough money to get more: Never True Transportation Answer Date Recorded In the past 12 months, has l ack of transportation kept you from medical appts, meetings, work or from getting things needed for daily living? No 10/08/2023 Utilities Answer Date Recorded In the past 12 months, has t he electric, gas, oil or water company threatened to shut off services in your home? 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 Lalito Miller MD [address] [address] Gynecologic Oncology 12/31/[address] [facility] Radiation Oncology 12/04/23 Dr. Pamela Medrano DO, Oncology 11/26/23 [facility] 11/20/23 documented as of this encounter
--- OUTSIDE RECORDS SUMMARY | 2024-04-01 16:43 | XMS_ITS | Encounter Summary ---
Author Organization [employer] Address [address] [facility] 7t [place] [address] Care Team Providers Care Clinical Care Manager Name Role Phone Sneha Li MD Primary Care Provider +1- [phone] Reason for Visit * Reason Onset Date Comments Durable Medical Equipment 03/03/2024 briefs Encounter Details Date Type Department Care Team ([facility] st Contact Info) Description 03/03/2024 Telephone [facility] MEDICINE 230 [place], [place] [phone] Sneha Li MD 230 [place], [place] [phone] Durable Medical Equipment (briefs) Social History Tobacco Use Types Packs/Day Years [...] encounter Miscellaneous Notes * Telephone Encounter - Zee Goodson - 03/04/2024 11:24 AM EST Confirmation of order form signed and faxed to [employer]. Fax confirmation received and sent to scan. * Telephone Encounter - Zee Goodson - 03/03/2024 2:22 PM EST Received DME form from [employer] requesting Qty and size info. Form completed and placed on pcp desk for review and signature. documented in this encounter Plan of Treatment Not on file documented as of this encounter Visit Diagnoses Not on filedocumented in this encounter Additional Health Concerns Assessment Noted Time PHQ-9 Depression Total Score: 4 10/08/19 24 9:22 AM EDT documented as of this encounter Care Teams Clinical Care Manager Relationship Specialty Start Date End Date Sneha Li MD [address] [place] [address] PCP - General Family Medicine 10/02/18 Dr. Lalito Miller MD [address] [address] Gynecologic Oncology 12/31/23 Dr. Samina Diaz [facility] Radiation Oncology 12/04/23 Dr. Pamela Medrano DO, Oncology 11/26/23 [facility] 11/20/23 documented as of this encounter
--- OUTSIDE RECORDS SUMMARY | 2024-04-01 16:43 | XMS_ITS | Clinical Summary ---
Author Organization [facility] Address [address] [place] [address] Care Team Providers Care Mechatronics Engineer Name Role Phone Sneha Li MD Primary Care Provider [phone] Allergies No known active allergies Medications fluticasone propion-salmeter oL (ADVAIR DISKUS) 500-50 mcg/dose diskus inhaler Inhale 500 mcg by mouth 2 times daily. 10/08/19 24 Active ferrous sulfate 325 mg (65 mg elemental iron) tablet Take 1 tablet (325 mg total) by mouth 2 times daily. 10/20/19 24 Active folic acid (FOLVITE) 1 mg tablet Take 1 tablet (1,000 mcg total) by mouth daily. 10/20/19 24 Active hydrocortisone (ANUSOL-HC) 2.5 % rectal cream 11/08/19 24 Active LORazepam (ATIVAN) 0.5 mg tablet Take 1 tablet (0.5 mg total) by mouth 2 (two) times a day if needed for anxiety. Active melatonin 3 mg tablet Take 2 tablets (6 mg total) by mouth at bedtime as needed. 11/08/19 24 Active risperiDONE (RisperDAL) 4 mg tablet Take 1 tablet (4 mg total) by mouth at bedtime. Active risperiDONE (RisperDAL) 1 mg tablet Take 1 tablet (1 mg total) by mouth 2 (two) times a day. 08/11/19 23 Active oxyCODONE (OxyCONTIN) 20 mg 12 hr abuse-deterrent tablet Take 1 tablet (20 mg total) by mouth every 12 (twelve) hours. Do not crush, chew, or split. Active oxyCODONE (ROXICODONE) 5 mg immediate release tablet Take 1 tablet (5 mg total) by mouth every 4 (four) hours if needed for severe pain or moderate pain. Active midodrine (PROAMATINE) 5 mg tablet Take 1 tablet (5 mg total) by mouth 3 (three) times a day before meals. 90 each 02/10/20 24 Active ondansetron (ZOFRAN) 8 mg tabletIndication s:prevention of chemotherapy-ind uced nausea and vomiting Take 1 tablet (8 mg total) by mouth every 8 (eight) hours if needed for nausea or vomiting. Active multivitamin tablet Take 1 tablet by mouth 1 (one) time each day. 30 each 03/04/19 25 025 Active polyethylene glycol (MIRALAX) 17 gram packet Take 17 g by mouth 1 (one) time each day if needed for constipation. 51 g 03/03/19 25 025 Active thiamine (VITAMIN B-1) 100 mg tablet Take 1 tablet (100 mg total) by mouth 1 (one) time each day. 30 tablet 03/04/19 25 Active fludrocortisone (FLORINEF) 0.1 mg tablet Take 1 tablet (0.1 mg total) by mouth 1 (one) time each day. 30 each 03/05/19 25 Active silver sulfADIAZINE (SILVADENE, SSD) 1 % cream Apply topically 2 (two) times a day. Apply to affected area 2-3 times per day 400 g 03/26/19 25 Active acetaminophen (TYLENOL) 325 mg tablet Take 2 tablets (650 mg total) by mouth every 6 (six) hours if needed for mild pain or fever - temperature GREATER than 38 C (100.4 F) for up to 10 days. 30 tablet 02/10/20 24 Discontinu ed(Stop Taking at Discharge) amoxicillin-clav ulanate (AUGMENTIN) 875-125 mg per tablet Take 1 tablet by mouth 2 (two) times a day for 5 days. 10 each 02/10/20 24 025 Discontinu ed(Stop Taking at Discharge) doxycycline (VIBRAMYCIN) 100 mg capsule Take 1 capsule (100 mg total) by mouth 2 (two) times a day for 5 days. Take with at least 8 ounces (large glass) of water, do not lie down for 30 minutes after 10 each 02/10/20 24 025 Discontinu ed(Stop Taking at Discharge) magnesium oxide (MAG-OX) 400 mg (241.3 elemental magnesium) tablet Take 1 tablet (400 mg total) by mouth 1 (one) time each day for 10 days. 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(cT4, cN1, cM0) - Signed by Samina Diaz MD on 01/01/2024 Congenital deafness 03/21/2023 COPD (chronic obstructive pulmonary disease) 10/2023 Low vitamin D level 03/21/2023 Nicotine dependence 03/21/2023 Resolved Problems Problem Noted Date Diagnosed Date Resolved Date Dehydration with hyponatremia 02/17/2024 03/03/2024 Hypotension 02/06/2024 02/10/2024 Hyponatremia 02/06/2024 02/10/2024 Dyslipidemia 03/21/2023 12/25/2023 Leukocytosis 03/21/2023 12/25/2023 Onychomycosis 03/21/2023 12/25/2023 Subareolar mass of left breast 03/21/2023 12/25/2023 Encounters Date Type Department Care Team Description 03/31/2024 1:30 PM EST Hospital Encounter [facility] Radiation Oncology [address] [place] [phone] Nickie Duron NP Primary squamous cell carcinoma of anus (CMS/HCC) (Primary Dx) 03/31/2024 12:58 PM EST Hospital Encounter [facility] Radiation Oncology [address] [place] [phone] 03/26/2024 2:00 PM EST - 03/26/2024 11:59 PM EST Hospital Encounter [facility] Infusion Center [address] [phone] Arlen Medrano DO Rectal mass (Primary Dx); Primary squamous cell carcinoma of anus (CMS/HCC) Discharge Disposition: Home or Self Care 03/26/2024 1:20 PM EST - 03/26/2024 11:59 PM EST Hospital Encounter [facility] Radiation Oncology [address] [place] [phone] Samina Diaz MD Primary squamous cell carcinoma of anus (CMS/HCC) (Primary Dx) Discharge Disposition: Home or Self Care 03/26/2024 1:06 PM EST - 03/26/2024 11:59 PM EST Hospital Encounter [facility] Radiation Oncology [address] [place] [phone] Discharge Disposition: Home or Self Care 03/25/2024 1:03 PM EST - 03/25/2024 11:59 PM EST Hospital Encounter [facility] Radiation Oncology [address] [place] [phone] Discharge Disposition: Home or Self Care 03/24/2024 1:13 PM EST - 03/24/2024 11:59 PM EST Hospital Encounter [facility] Radiation Oncology [address] [place] [phone] Discharge Disposition: Home or Self Care 03/24/2024 11:00 AM EST - 03/24/2024 11:59 PM EST Hospital Encounter [facility] Infusion Center [address] [place] [phone] Arlen Medrano DO Rectal mass (Primary Dx); Primary squamous cell carcinoma of anus (CMS/HCC) Discharge Disposition: Home or Self Care 03/23/2024 1:15 PM EST - 03/23/2024 11:59 PM EST Hospital Encounter [facility] Radiation Oncology [address] [place] [phone] Discharge Disposition: Home or Self Care 03/22/2024 1:15 PM EST - 03/22/2024 11:59 PM EST Hospital Encounter [facility] Radiation Oncology [address] [place] [phone] Discharge Disposition: Home or Self Care 03/22/2024 10:45 AM EST Office Visit [facility] Hematology Oncology [address] [place] [phone] Arlen Medrano DO Anal cancer (CMS/HCC) (Primary Dx); Port-A-Cath in place; Cancer associated pain; Mild anemia 03/22/2024 10:00 AM EST - 03/22/2024 11:59 PM EST Hospital Encounter [facility] Infusion Center [address] [place] [phone] Arlen Medrano DO Primary squamous cell carcinoma of anus (CMS/HCC) (Primary Dx) Discharge Disposition: Home or Self Care 03/19/2024 1:20 PM EST - 03/19/2024 11:59 PM EST Hospital Encounter [facility] Radiation Oncology [address] [place] [phone] Samina Diaz MD Primary squamous cell carcinoma of anus (CMS/HCC) (Primary Dx) Discharge Disposition: Home or Self Care 03/19/2024 1:11 PM EST - 03/19/2024 11:59 PM EST Hospital Encounter [facility] Radiation Oncology [address] [place] [phone] Discharge Disposition: Home or Self Care 03/18/2024 12:47 PM EST - 03/18/2024 11:59 PM EST Hospital Encounter [facility] Radiation Oncology [address] [place] [phone] Discharge Disposition: Home or Self Care 03/17/2024 12:55 PM EST - 03/17/2024 11:59 PM EST Hospital Encounter [facility] Radiation Oncology [address] [place] [phone] Discharge Disposition: Home or Self Care 03/16/2024 1:08 PM EST - 03/16/2024 11:59 PM EST Hospital Encounter [facility] Radiation Oncology [address] [place] [phone] Discharge Disposition: Home or Self Care 03/15/2024 1:15 PM EST - 03/15/2024 11:59 PM EST Hospital Encounter [facility] Radiation Oncology [address] [place] [phone] Discharge Disposition: Home or Self Care 03/12/2024 1:20 PM EST - 03/12/2024 11:59 PM EST Hospital Encounter [facility] Radiation Oncology [address] [place] [phone] Samina Diaz MD Primary squamous cell carcinoma of anus (CMS/HCC) (Primary Dx) Discharge Disposition: Home or Self Care 03/12/2024 1:05 PM EST - 03/12/2024 11:59 PM EST Hospital Encounter [facility] Radiation Oncology [address] [place] [phone] Discharge Disposition: Home or Self Care 03/11/2024 1:11 PM EST - 03/11/2024 11:59 PM EST Hospital Encounter [facility] Radiation Oncology [address] [place] [phone] Discharge Disposition: Home or Self Care 03/10/2024 Telephone [facility] Radiation Oncology [address] [place] [phone] Zoila Villegas RN 03/09/2024 1:02 PM EST - 03/09/2024 11:59 PM EST Hospital Encounter [facility] Radiation Oncology [address] [place] [phone] Discharge Disposition: Home or Self Care 03/08/2024 1:15 PM EST - 03/08/2024 11:59 PM EST Hospital Encounter [facility] Radiation Oncology [address] [place] [phone] Discharge Disposition: Home or Self Care 03/05/2024 1:20 PM EST - 03/05/2024 11:59 PM EST Hospital Encounter [facility] Radiation Oncology [address] [place] [phone] Samina Diaz MD Primary squamous cell carcinoma of anus (CMS/HCC) (Primary Dx) Discharge Disposition: Home or Self Care 03/05/2024 1:15 PM EST - 03/05/2024 11:59 PM EST Hospital Encounter [facility] Radiation Oncology [address] [place] [phone] Discharge Disposition: Home or Self Care 03/04/2024 1:15 PM EST - 03/04/2024 11:59 PM EST Hospital Encounter [facility] Radiation Oncology [address] [place] [phone] Discharge Disposition: Home or Self Care 03/03/2024 12:45 PM EST - 03/03/2024 11:59 PM EST Hospital Encounter [facility] Radiation Oncology [address] [place] [phone] Discharge Disposition: Home or Self Care 03/03/2024 Telephone [facility] Radiation Oncology [address] [place] [phone] Yola Finley RN clamp catheter 03/02/2024 1:15 PM EST - 03/02/2024 11:59 PM EST Hospital Encounter [facility] Radiation Oncology [address] [place] [phone] Discharge Disposition: Home or Self Care 03/01/2024 8:12 AM EST - 03/01/2024 11:59 PM EST Hospital Encounter [facility] Radiation Oncology [address] [place] [phone] Discharge Disposition: Home or Self Care 02/27/2024 1:20 PM EST - 02/27/2024 11:59 PM EST Hospital Encounter [facility] Radiation Oncology [address] [place] [phone] Samina Diaz MD Primary squamous cell carcinoma of anus (CMS/HCC) (Primary Dx) Discharge Disposition: Home or Self Care 02/27/2024 1:15 PM EST - 02/27/2024 11:59 PM EST Hospital Encounter [facility] Radiation Oncology [address] [place] [phone] Discharge Disposition: Home or Self Care 02/26/2024 1:15 PM EST - 02/26/2024 11:59 PM EST Hospital Encounter [facility] Radiation Oncology [address] [place] [phone] Discharge Disposition: Home or Self Care 02/25/2024 12:16 PM EST - 02/25/2024 11:59 PM EST Hospital Encounter [facility] Radiation Oncology [address] [place] [phone] Discharge Disposition: Home or Self Care 02/24/2024 1:20 PM EST - 02/24/2024 11:59 PM EST Hospital Encounter [facility] Radiation Oncology [address] [place] [phone] Samina Diaz MD Primary squamous cell carcinoma of anus (CMS/HCC) (Primary Dx) Discharge Disposition: Home or Self Care 02/24/2024 1:15 PM EST - 02/24/2024 11:59 PM EST Hospital Encounter [facility] Radiation Oncology [address] [place] [phone] Discharge Disposition: Home or Self Care 02/23/2024 1:15 PM EST - 02/23/2024 11:59 PM EST Hospital Encounter [facility] Radiation Oncology [address] [place] [phone] Discharge Disposition: Home or Self Care 02/17/2024 2:11 PM EST - 03/06/2024 1:20 PM EST Hospital Encounter [facility] Medical Surgical Unit [address] [place] [phone] Carlos Malave MD Bukalo, Nermina, MD Seralathan, Manikandan, MD Bell, Alistair A, MD Mohani, Priya, MD Dehydration (Primary Dx); Generalized abdominal pain; Diabetic ulcer of right buttock (CMS/HCC); Hyponatremia; Anal cancer (CMS/HCC); Dehydration with hyponatremia; Weakness generalized Discharge Disposition: Home-Health Care Svc 02/16/2024 2:00 PM EST - 02/16/2024 11:59 PM EST Hospital Encounter [facility] Infusion Center [address] [place] [phone] Arlen Medrano DO Primary squamous cell carcinoma of anus (CMS/HCC) (Primary Dx) Discharge Disposition: Home or Self Care 02/16/2024 1:15 PM EST - 02/16/2024 11:59 PM EST Hospital Encounter [facility] Radiation Oncology [address] [place] [phone] Discharge Disposition: Home or Self Care 02/13/2024 1:20 PM EST - 02/13/2024 11:59 PM EST Hospital Encounter [facility] Radiation Oncology [address] [place] [phone] Samina Diaz MD Primary squamous cell carcinoma of anus (CMS/HCC) (Primary Dx) Discharge Disposition: Home or Self Care 02/13/2024 1:09 PM EST - 02/13/2024 11:59 PM EST Hospital Encounter [facility] Radiation Oncology [address] [place] [phone] Discharge Disposition: Home or Self Care 02/12/2024 1:11 PM EST - 02/12/2024 11:59 PM EST Hospital Encounter [facility] Radiation Oncology [address] [place] [phone] Discharge Disposition: Home or Self Care 02/12/2024 10:00 AM EST - 02/12/2024 11:59 PM EST Hospital Encounter [facility] Infusion Center [address] [place] [phone] Primary squamous cell carcinoma of anus (CMS/HCC) (Primary Dx) Discharge Disposition: Home or Self Care 02/10/2024 1:15 PM EST - 02/10/2024 11:59 PM EST Hospital Encounter [facility] Radiation Oncology [address] [place] [phone] Samina Diaz MD Discharge Disposition: Home or Self Care 02/09/2024 4:00 PM EST - 02/09/2024 11:59 PM EST Hospital Encounter [facility] Radiation Oncology [address] [place] [phone] Jaylon Rivera MD Discharge Disposition: Home or Self Care 02/09/2024 3:25 PM EST - 02/09/2024 11:59 PM EST Hospital Encounter [facility] Radiation Oncology [address] [place] [phone] Jaylon Rivera MD Discharge Disposition: Home or Self Care 02/09/2024 Telephone [facility] Radiation Oncology [address] [place] [phone] Zoila Villegas RN 02/05/2024 3:45 PM EST - 02/05/2024 11:59 PM EST Hospital Encounter [facility] Radiation Oncology [address] [place] [phone] Discharge Disposition: Home or Self Care 02/05/2024 3:04 PM EST - 02/10/2024 1:00 PM EST Hospital Encounter [facility] Urology Unit [address] [place] [phone] Ismael Eaton, Matt Bhatt MD Ishtiaq, Rizwan, MD Kokosadze, Estate, MD Rasul, Yar M, MD Anal squamous cell carcinoma (CMS/HCC) (Primary Dx); Rectal mass; Hypotension Discharge Disposition: Home-Health Care [facility] 02/05/2024 1:00 PM EST - 02/05/2024 11:59 PM EST Hospital Encounter [facility] Infusion Center [address] [place] [phone] Primary squamous cell carcinoma of anus (CMS/HCC) Discharge Disposition: Home or Self Care 02/05/2024 Telephone [facility] Hematology Oncology [address] [place] [phone] Arlen Medrano, DO 02/02/2024 Telephone [facility] Hematology Oncology [address] [place] [phone] Arlen Medrano, DO 01/22/2024 2:00 PM EST Office Visit [facility] Hematology Oncology [address] [place] [phone] Arlen Medrano DO Anal cancer (CMS/HCC) (Primary Dx); Port-A-Cath in place; Cancer associated pain 01/20/2024 9:57 AM EST - 01/20/2024 11:59 PM EST Hospital Encounter [facility] Radiation Oncology [address] [phone] Samina Diaz MD Primary squamous cell carcinoma of anus ([facility]/HCC) Discharge Disposition: Home or Self Care 01/05/2024 11:24 AM EST - 01/05/2024 11:59 PM EST Hospital Encounter [facility] Radiation Oncology [address] [place] [phone] Primary squamous cell carcinoma of anus ([facility]/HCC) (Primary Dx) Discharge Disposition: Home or Self Care 12/31/2023 Telephone [facility] Hematology Oncology [address] [place] [phone] Arlen Medrano DO from Last 3 Months Surgical History Surgery Date Site/Laterality Comments CHOLECYSTECTOMY COLOSTOMY FOOT SURGERY TUBAL LIGATION APPENDECTOMY Medical History Medical History Date Comments COPD (chronic obstructive pu lmonary disease) ([facility]) 03/21/2023 DX:COPD (chronic obstructive pulmonary disease) ([facility]) Leukocytosis 03/21/2023 DX:Leukocytosis Cancer of anus ([facility]) Congenital deafness 03/21/2023 Low vitamin D level 03/21/2023 Nicotine dependence 03/21/2023 Schizophrenia ([facility]) 12/25/2023 Port-A-Cath in place Schizo affective schizophren ia ([facility]) Social History Tobacco Use Types Packs/Day Years [...] on file Sexual Orientation Not on file Obstetrics History Last Filed Vital Signs Vital Sign Reading Time Taken Comments Blood Pressure 109/73 03/26/2024 4:19 PM EST Pulse 83 03/26/2024 2:31 PM EST Temperature 36.2 ??C (97.2 ??F) 03/26/2024 2:31 PM ES T Respiratory Rate 16 03/26/2024 2:31 PM EST Oxygen Saturation 98% 03/26/2024 2:31 PM EST Inhaled Oxygen Concentration - - Weight 51.5 kg (113 lb 9.6 oz) 03/26/2024 1:42 P M EST Height 157.5 cm (5' 2 ) 02/17/2024 9:11 PM EST Body Mass Index 20.78 02/17/2024 9:11 PM EST Plan of Treatment Upcoming Encounters Date Type Department Care Team (Late st Contact Info) Description 04/13/2024 1:30 PM EST Appointment [facility] Radiation Oncology [address] [facility] 2nd [place] [phone] Samina Diaz MD [address] [place] [address] 05/04/2024 11:20 AM EDT Office Visit [facility] [address] [facility] [address] [place] [phone] Lalito Miller MD [address] [facility] [address] [place] [address] Health Maintenance Due Date Last Done Comments Breast Cancer Screening 1972 Diabetes: Annual Foot Exam 1982 Diabetes: Annual Retina Eye Exam 1982 Zoster Vaccines (1 of 2) 12/30/1991 Cervical Cancer Screening: Pap Smear 1993 Colorectal Cancer Screening: Colonoscopy 03/06/2023 Hepatitis C Screening 03/06/2023 Medicare Annual Wellness Visit 03/06/2023 Social Influencers of Health Screening 03/06/2023 COVID-19 Vaccine ( season) 2023 06/25/2023, 07/31/2022, 03/05/2021, Additional history exists Diabetes: Annual Urine Albumin-Creatinine Ratio (uACR) 02/17/2024 Diabetes: Blood Sugar Control Test (HGBA1C) 04/09/2024 10/08/2023 Depression Screening 10/07/2024 10/08/2023 Diabetes: Annual GFR (Glomerular Filtration Rate) 03/22/2025 03/22/2024, 03/04/2024, 03/02/2024, Additional history exists Cholesterol Screening (Lipid Panel) 10/07/2028 10/08/2023 DTaP,Tdap,and Td Vaccines (2 - Td or Tdap) 01/04/2029 01/04/2019 Pneumococcal Vaccine: 50+ Years Completed 01/22/2023, 11/22/2019, 01/04/2019 Pneumococcal Vaccine: Pediatrics (0 to 5 Years) and At-Risk Patients (6 to 64 Years) Completed 01/22/2023, 11/22/2019, 01/04/2019 Hepatitis B Vaccines Completed 06/25/2023, 01/22/2023, 07/31/2022 HIV Screening Completed 10/08/2023 Hepatitis A Vaccines Completed 10/08/2023, 01/23/20 23 Influenza Vaccine Completed 10/24/2023, , 11/22/2019, Additional history exists HIB Vaccines Aged Out No longer eligi ble based on patient's age to complete this topic HPV Vaccines Aged Out No longer eligi ble based on patient's age to complete this topic IPV Vaccines Aged Out No longer eligi ble based on patient's age to complete this topic MMR Vaccines Aged Out No longer eligi ble based on patient's age to complete this topic Meningococcal ACWY Vaccine Aged Out N o longer eligible based on patient's age to complete this topic Meningococcal B Vacine Aged Out No lo nger eligible based on patient's age to complete this topic RSV Immunization Patients Under 20 months Aged Out No longer eligible based on patient's age to complete this topic Varicella Vaccines Aged Out No longer eligible based on patient's age to complete this topic Medical Devices Implanted Type Area Chemistry Quality Control Technician Device Identifier Shelf Expiration Date Model / Serial / Lot Kit Surgiflo W 2000 Units Ster Lyo - Sn/A - [id number] Implanted:Qty: 1 on 2023 by Lalito Miller MD at [facility] Hemostasis N/A: Vagina [employer] 12/10/2024 2994 / N/A / [id number] Procedures Procedure Name Priority Date/Time Associated Diagnosis Comments RAD ONC MSQ TREATMENT SUMMARY Routine 03/31/2024 1:33 PM EST RAD ONC MSQ TREATMENT SUMMARY Routine 03/26/2024 1:34 PM EST RAD ONC MSQ TREATMENT SUMMARY Routine 03/25/2024 1:26 PM EST RAD ONC MSQ TREATMENT SUMMARY Routine 03/24/2024 1:32 PM EST RAD ONC MSQ TREATMENT SUMMARY Routine 03/23/2024 1:38 PM EST RAD ONC MSQ TREATMENT SUMMARY Routine 03/22/2024 1:34 PM EST CBC WITH AUTO DIFFERENTIAL Routine 03/22/2024 11:39 AM EST Primary squamous cell carcinoma of anus (CMS/HCC) COMPREHENSIVE METABOLIC PANEL Routine 03/22/2024 11:39 AM EST Primary squamous cell carcinoma of anus (CMS/HCC) CBC AND DIFFERENTIAL Routine 03/22/2024 11:39 AM EST Primary squamous cell carcinoma of anus (CMS/HCC) RAD ONC MSQ TREATMENT SUMMARY Routine 03/19/2024 1:31 PM EST RAD ONC MSQ TREATMENT SUMMARY Routine 03/18/2024 1:32 PM EST RAD ONC MSQ TREATMENT SUMMARY Routine 03/17/2024 1:19 PM EST RAD ONC MSQ TREATMENT SUMMARY Routine 03/16/2024 1:47 PM EST RAD ONC MSQ TREATMENT SUMMARY Routine 03/15/2024 1:57 PM EST RAD ONC MSQ TREATMENT SUMMARY Routine 03/12/2024 1:47 PM EST RAD ONC MSQ TREATMENT SUMMARY Routine 03/11/2024 1:34 PM EST RAD ONC MSQ TREATMENT SUMMARY Routine 03/09/2024 1:42 PM EST RAD ONC MSQ TREATMENT SUMMARY Routine 03/08/2024 1:45 PM EST RAD ONC MSQ TREATMENT SUMMARY Routine 03/05/2024 1:54 PM EST HEMOGLOBIN AND HEMATOCRIT STAT 03/05/2024 11:04 AM EST TRANSFUSE RED BLOOD CELLS Routine 03/04/2024 7:22 PM EST RAD ONC MSQ TREATMENT SUMMARY Routine 03/04/2024 1:59 PM EST TYPE AND SCREEN Routine 03/04/2024 12:27 PM EST PREPARE RBC Routine 03/04/2024 9:14 AM EST CBC WITH AUTO DIFFERENTIAL Routine 03/04/2024 5:14 AM EST CBC AND DIFFERENTIAL Routine 03/04/2024 5:14 AM EST BASIC METABOLIC PANEL Routine 03/04/2024 5:14 AM EST MAGNESIUM Routine 03/04/2024 5:14 AM EST PHOSPHORUS Routine 03/04/2024 5:14 AM EST RAD ONC MSQ TREATMENT SUMMARY Routine 03/03/2024 1:33 PM EST COMPLETE BLOOD COUNT Routine 03/02/2024 8:24 AM EST MAGNESIUM Add-On 03/02/2024 7:29 AM EST BASIC METABOLIC PANEL Add-On 03/02/2024 7:29 AM EST FERRITIN Routine 03/02/2024 7:29 AM EST IRON AND TIBC Routine 03/02/2024 7:29 AM EST TRANSFERRIN Routine 03/02/2024 6:41 AM EST RAD ONC MSQ TREATMENT SUMMARY Routine 03/01/2024 8:30 AM EST CBC WITH AUTO DIFFERENTIAL Routine 03/01/2024 4:55 AM EST CBC AND DIFFERENTIAL Routine 03/01/2024 4:55 AM EST BASIC METABOLIC PANEL Routine 03/01/2024 4:55 AM EST MAGNESIUM Routine 03/01/2024 4:55 AM EST PHOSPHORUS Routine 03/01/2024 4:55 AM EST HEMOGLOBIN AND HEMATOCRIT Routine 02/29/2024 9:45 AM EST MAGNESIUM Routine 02/28/2024 5:25 AM EST BASIC METABOLIC PANEL Routine 02/28/2024 5:25 AM EST COMPLETE BLOOD COUNT Routine 02/28/2024 5:25 AM EST RAD ONC MSQ TREATMENT SUMMARY Routine 02/27/2024 1:37 PM EST MAGNESIUM Routine 02/27/2024 5:06 AM EST BASIC METABOLIC PANEL Routine 02/27/2024 5:06 AM EST COMPLETE BLOOD COUNT Routine 02/27/2024 5:06 AM EST RAD ONC MSQ TREATMENT SUMMARY Routine 02/26/2024 2:57 PM EST MAGNESIUM Routine 02/26/2024 9:20 AM EST BASIC METABOLIC PANEL Routine 02/26/2024 9:20 AM EST COMPLETE BLOOD COUNT Routine 02/26/2024 9:20 AM EST RAD ONC MSQ TREATMENT SUMMARY Routine 02/25/2024 12:45 PM EST BASIC METABOLIC PANEL Routine 02/25/2024 4:53 AM EST MAGNESIUM Routine 02/25/2024 4:53 AM EST COMPLETE BLOOD COUNT Routine 02/25/2024 4:53 AM EST RAD ONC MSQ TREATMENT SUMMARY Routine 02/24/2024 1:50 PM EST HEMOGLOBIN AND HEMATOCRIT Routine 02/24/2024 10:12 AM EST COMPLETE BLOOD COUNT Routine 02/24/2024 6:24 AM EST BASIC METABOLIC PANEL Routine 02/24/2024 6:24 AM EST MAGNESIUM Routine 02/24/2024 6:24 AM EST RAD ONC MSQ TREATMENT SUMMARY Routine 02/23/2024 1:56 PM EST PHOSPHORUS Add-On 02/23/2024 6:52 AM EST MAGNESIUM Add-On 02/23/2024 6:52 AM EST BASIC METABOLIC PANEL Routine 02/23/2024 6:52 AM EST COMPLETE BLOOD COUNT Routine 02/23/2024 6:52 AM EST HEMOGLOBIN AND HEMATOCRIT Routine 02/20/2024 5:08 PM EST CBC WITH AUTO DIFFERENTIAL Routine 02/19/2024 8:01 AM EST CBC AND DIFFERENTIAL Routine 02/19/2024 8:01 AM EST LAVENDER - EDTA Routine 02/18/2024 7:04 AM EST EXTRA TUBES Routine 02/18/2024 7:04 AM EST LACTATE, WITH REFLEX Routine 02/18/2024 7:04 AM EST PROCALCITONIN STAT Add-on 02/18/2024 7:04 AM EST COMPLETE BLOOD COUNT Routine 02/18/2024 3:21 AM EST BASIC METABOLIC PANEL Routine 02/18/2024 3:21 AM EST CARRANZA URINE CULTURE TUBE STAT 02/16/19 5:27 PM EST URINALYSIS WITH REFLEX MICROSCOPIC AND CULTURE STAT 02/17/2024 5:27 PM EST URINALYSIS WITH REFLEX MICROSCOPIC AND CULTURE STAT 02/17/2024 5:[address] ABDOMEN PELVIS W CONTRAST STAT 02/17/2024 4:59 PM EST CULTURE BLOOD STAT 02/17/2024 4:27 PM EST CULTURE BLOOD STAT 02/17/2024 4:24 PM EST RESPIRATORY VIRUS PANEL MOLECULAR STUDY STAT 02/17/2024 4:22 PM EST XR CHEST 1 VIEW STAT 02/17/2024 4:06 PM EST LACTATE, WITH REFLEX STAT 02/17/2024 3:42 PM EST CBC WITH AUTO DIFFERENTIAL STAT 02/17/2024 3:23 PM EST COMPREHENSIVE METABOLIC PANEL STAT 02/17/2024 3:23 PM EST CBC AND DIFFERENTIAL STAT 02/17/2024 3:23 PM EST LIPASE STAT 02/17/2024 3:23 PM EST RAD ONC MSQ TREATMENT SUMMARY Routine 02/16/2024 2:03 PM EST RAD ONC MSQ TREATMENT SUMMARY Routine 02/13/2024 1:40 PM EST RAD ONC MSQ TREATMENT SUMMARY Routine 02/12/2024 1:49 PM EST RAD ONC MSQ TREATMENT SUMMARY Routine 02/10/2024 1:50 PM EST RAD ONC MSQ TREATMENT SUMMARY Routine 02/10/2024 1:34 PM EST HEMOGLOBIN AND HEMATOCRIT Routine 02/10/2024 6:50 AM EST BASIC METABOLIC PANEL Routine 02/10/2024 6:50 AM EST POTASSIUM Routine 02/09/2024 8:45 PM EST RAD ONC MSQ TREATMENT SUMMARY Routine 02/09/2024 4:12 PM EST TRANSFUSE RED BLOOD CELLS Routine 02/09/2024 10:37 AM EST PREPARE RBC Routine 02/09/2024 9:55 AM EST CBC WITH AUTO DIFFERENTIAL Routine 02/09/2024 6:04 AM EST MAGNESIUM Routine 02/09/2024 6:04 AM EST CBC AND DIFFERENTIAL Routine 02/09/2024 6:04 AM EST BASIC METABOLIC PANEL Routine 02/09/2024 6:04 AM EST HEMOGLOBIN AND HEMATOCRIT Timed 02/09/2024 6:04 AM EST XR CHEST 1 VIEW STAT 02/09/2024 6:01 AM EST MRSA PCR Routine 02/09/2024 4:07 AM EST RESPIRATORY VIRUS PANEL MOLECULAR STUDY Routine 02/09/2024 4:07 AM EST CULTURE BLOOD STAT 02/08/2024 11:50 PM EST LACTATE Routine 02/08/2024 11:43 PM EST CULTURE BLOOD Routine 02/08/2024 11:43 PM EST CBC WITH AUTO DIFFERENTIAL Routine 02/08/2024 6:27 AM EST MAGNESIUM Routine 02/08/2024 6:27 AM EST CBC AND DIFFERENTIAL Routine 02/08/2024 6:27 AM EST BASIC METABOLIC PANEL Routine 02/08/2024 6:27 AM EST PARATHYROID HORMONE RELATED PROTEIN Routine 02/08/2024 6:27 AM EST HEMOGLOBIN AND HEMATOCRIT Timed 02/08/2024 6:27 AM EST HEMOGLOBIN AND HEMATOCRIT Timed 02/07/2024 8:04 PM EST MANUAL DIFFERENTIAL - SYSMEX WAM Routine 02/07/2024 4:23 AM EST PARATHYROID HORMONE INTACT Add-On 02/07/2024 4:23 AM EST CBC WITH AUTO DIFFERENTIAL Routine 02/07/2024 4:23 AM EST MAGNESIUM Routine 02/07/2024 4:23 AM EST HEPATIC FUNCTION PANEL Routine 4:23 AM EST CBC AND DIFFERENTIAL Routine 02/07/2024 4:23 AM EST BASIC METABOLIC PANEL Routine 02/07/2024 4:23 AM EST CARRANZA URINE CULTURE TUBE Routine 02/06/20 6:44 PM EST URINALYSIS WITH REFLEX MICROSCOPIC AND CULTURE Routine 02/06/2024 6:44 PM EST URINALYSIS WITH REFLEX MICROSCOPIC AND CULTURE Routine 02/06/2024 6:44 PM EST OSMOLALITY, URINE Routine 02/06/2024 6:4 4 PM EST SODIUM, URINE, RANDOM STAT 02/06/2024 6:44 PM EST TRANSFUSE RED BLOOD CELLS Routine 02/06/2024 2:21 PM EST SODIUM Routine 02/06/2024 10:26 AM EST PREPARE RBC Routine 02/06/2024 7:01 AM EST TYPE AND SCREEN Routine 02/06/2024 4:35 AM EST ALBUMIN Routine 02/06/2024 4:35 AM EST CBC WITH AUTO DIFFERENTIAL Routine 02/06/2024 4:35 AM EST CORTISOL Routine 02/06/2024 4:35 AM EST THYROID STIMULATING HORMONE WITH REFLEX TO FREE T4 AND FREE T3 Routine 02/06/2024 4:35 AM EST CBC AND DIFFERENTIAL Routine 02/06/2024 4:35 AM EST MAGNESIUM Routine 02/06/2024 4:35 AM EST BASIC METABOLIC PANEL Routine 02/06/2024 4:35 AM EST POCT GLUCOSE BLOOD Routine 02/05/2024 11 :17 PM EST CULTURE GENITAL STAT 02/05/2024 9:53 PM EST XR CHEST 2 VIEWS STAT 02/05/2024 8:[address] ABDOMEN PELVIS W CONTRAST STAT 02/05/2024 8:18 PM EST CULTURE BLOOD STAT 02/05/2024 7:31 PM EST CULTURE BLOOD STAT 02/05/2024 6:52 PM EST LACTATE STAT 02/05/2024 6:[address] CERVICAL SPINE WO CONTRAST STAT 02/05/2024 5:[address] HEAD WO CONTRAST STAT 02/05/2024 5 :11 PM EST MANUAL DIFFERENTIAL - SYSMEX WAM STAT 02/05/2024 4:40 PM EST OSMOLALITY STAT Add-on 02/05/2024 4:40 PM EST CBC WITH AUTO DIFFERENTIAL STAT 02/05/2024 4:40 PM EST BASIC METABOLIC PANEL STAT 02/05/2024 4:40 PM EST CBC AND DIFFERENTIAL STAT 02/05/2024 4:40 PM EST ALKALINE PHOSPHATASE STAT 02/05/2024 4:40 PM EST BILIRUBIN, TOTAL STAT 02/05/2024 4:40 PM EST ALANINE AMINOTRANSFERASE STAT 02/05/2024 4:40 PM EST ASPARTATE AMINOTRANSFERASE STAT 02/05/2024 4:40 PM EST LIPASE STAT 02/05/2024 4:40 PM EST HCG QUALITATIVE, URINE STAT 9:59 AM EST Primary squamous cell carcinoma of anus (CMS/HCC) from Last 3 Months Results * Rad Onc Msq Treatment Summary [...] MOSAIQ RADIATION ONCOLOGY 03/31/2024 1:33 PM EST Physician Radiation Oncology RADIATION ONCOLO GY ORDERABLES Final Result MOSAIQ RADIATION ONCOLOGY * Rad Onc Msq Treatment Summary (03/26/2024 [...] MOSAIQ RADIATION ONCOLOGY 03/26/2024 1:34 PM EST us Physician Radiation Oncology RADIATION ONCOLO GY ORDERABLES Final Result MOSAIQ RADIATION ONCOLOGY * Rad Onc Msq Treatment Summary (03/25/2024 [...] GY ORDERABLES Final Result Performing Organization Address [facility] Co de Phone Number MOSAIQ RADIATION ONCOLOGY * Rad Onc Msq Treatment Summary (03/24/2024 [...] GY ORDERABLES Final Result MOSAIQ RADIATION ONCOLOGY * Rad Onc Msq Treatment Summary (03/23/2024 [...] 1:38 PM EST Physician Radiation Oncology RADIATION ONCSENTHIL GY ORDERABLES Final Result Performing Organization Address City/State/[facility] Co de Phone Number MOSAIQ RADIATION ONCOLOGY * Rad Onc Msq Treatment Summary (03/22/2024 [...] 1:34 PM EST Physician Radiation Oncology RADIATION ONCSENTHIL GY ORDERABLES Final Result MOSAIQ RADIATION ONCOLOGY * (ABNORMAL) CBC auto differential (03/22/2024 11:39 AM EST) Only the most recent of10 resultswithin the time period is included. [facility] Signature WBC 5.4 4.8 - 10.8 K/mcL LAB HEMETOLOGY METHOD 03/22/2024 12:[address] [facility] RBC 3.70(L) 3.80 - 4.80 M/mcL LAB HEMETOLOGY METHOD 03/22/2024 12:[address] [facility] Hemoglobin 9.8(L) 11.5 - 16.0 g/dL LAB HEMETOLOGY METHOD 03/22/2024 12:[address] [facility] Hematocrit 31.7(L) 35.0 - 47.0 % LAB HEMETOLOGY METHOD 03/22/2024 12:[address] [facility] MCV 85.0 79.0 - 98.0 FL LAB HEMETOLOGY METHOD 03/22/2024 12:[address] [facility] MCH 26.3(L) 27.0 - 32.0 pcg LAB HEMETOLOGY METHOD 03/22/2024 12:[address] [facility] MCHC 30.9(L) 32.0 - 37.0 g/dL LAB HEMETOLOGY METHOD 03/22/2024 12:[address] [facility] RDW 24.9(H) 11.0 - 15.0 % LAB HEMETOLOGY METHOD 03/22/2024 12:[address] [facility] Platelets 216 130 - 400 K/mcL LAB HEMETOLOGY METHOD 03/22/2024 12:[address] [facility] MPV 10.0 7.0 - 11.0 FL LAB HEMETOLOGY METHOD 03/22/2024 12:[address] [facility] NRBC 0.0 <1.0 % LAB HEMETOLOGY METHOD 03/22/2024 12:[address] [facility] NRBC Absolute 0.00 <0.10 K/mcL LAB HEMETOLOGY METHOD 03/22/2024 12:[address] [facility] Neutrophils Relative 77.9 % LAB HEMETOLOGY METHOD 03/22/2024 12:[address] [facility] Lymphocytes Relative 7.6 % LAB HEMETOLOGY METHOD 03/22/2024 12:[address] [facility] Monocytes Relative 11.2 % LAB HEMETOLOGY METHOD 03/22/2024 12:[address] [facility] Eosinophils Relative 2.2 % LAB HEMETOLOGY METHOD 03/22/2024 12:[address] [facility] Basophils Relative 0.4 % LAB HEMETOLOGY METHOD 03/22/2024 12:[address] [facility] Immature Granulocytes Relative 0.7 % LAB HEMETOLOGY METHOD 03/22/2024 12:[address] [facility] Neutrophils Absolute 4.18 1.50 - 7.00 K/mcL LAB HEMETOLOGY METHOD 03/22/2024 12:[address] [facility] Lymphocytes Absolute 0.41(L) 1.00 - 5.00 K/mcL LAB HEMETOLOGY METHOD 03/22/2024 12:[address] [facility] Monocytes Absolute 0.60 0.20 - 1.00 K/mcL LAB HEMETOLOGY METHOD 03/22/2024 12:[address] [facility] Eosinophils Absolute 0.12 0.00 - 0.50 K/mcL LAB HEMETOLOGY METHOD 03/22/2024 12:[address] [facility] Basophils Absolute 0.02 0.00 - 0.20 K/mcL LAB HEMETOLOGY METHOD 03/22/2024 12:[address] [facility] Immature Granulocytes Absolute 0.04(H) 0.00 - 0.03 K/mcL LAB HEMETOLOGY METHOD 03/22/2024 12:[address] [facility] Blood Blood sample taken from central line / Unknown Existing Catheter / Unknown 03/22/2024 11:39 AM EST 03/22/2024 11:51 AM EST Arlen Melgar Mitchell DO LAB BLOOD ORDERABLES Final Result [facility] [address] [place] [address], * (ABNORMAL) Comprehensive metabolic panel (03/22/2024 11:39 AM EST) Only the most recent of2 resultswithin the time period is included. Sodium 134 133 - 145 mmol/L LAB CHEMISTRY METHOD 03/22/2024 1:[address] [facility] Potassium 4.0 3.5 - 5.5 mmol/L LAB CHEMISTRY METHOD 03/22/2024 1:[address] [facility] Chloride 101 96 - 110 mmol/L LAB CHEMISTRY METHOD 03/22/2024 1:[address] [facility] CO2 27 21 - 32 mmol/L LAB CHEMISTRY METHOD 03/22/2024 1:[address] [facility] Anion Gap 6 3 - 11 LAB CHEMISTRY METHOD 03/22/2024 1:[address] [facility] Glucose 121(H) 70 - 100 mg/dL LAB CHEMISTRY METHOD 03/22/2024 1:[address] [facility] BUN 6 5 - 25 mg/dL LAB CHEMISTRY METHOD 03/22/2024 1:[address] [facility] Creatinine 0.56 0.50 - 1.10 mg/dL LAB CHEMISTRY METHOD 03/22/2024 1:[address] [facility] eGFR 111 >=60 mL/min/1. 73m2 LAB CHEMISTRY METHOD 03/22/2024 1:[address] [facility] Comment:Calculation based on the??Chronic Kidney Disease Epidemiology Collaboration (CKD-EPI) equation refit??without adjustment for race. BUN/Creatinine Ratio 10.7 LAB CHEMISTRY METHOD 03/22/2024 1:[address] [facility] Calcium 9.1 8.5 - 10.5 mg/dL LAB CHEMISTRY METHOD 03/22/2024 1:[address] [facility] AST (SGOT) 13 10 - 42 unit/L LAB CHEMISTRY METHOD 03/22/2024 1:[address] [facility] ALT (SGPT) 15 10 - 60 unit/L LAB CHEMISTRY METHOD 03/22/2024 1:[address] [facility] Alkaline Phosphatase 117 42 - 121 unit/L LAB CHEMISTRY METHOD 03/22/2024 1:[address] [facility] Total Protein 6.6 6.0 - 8.0 g/dL LAB CHEMISTRY METHOD 03/22/2024 1:[address] [facility] Albumin 2.7(L) 3.2 - 5.0 g/dL LAB CHEMISTRY METHOD 03/22/2024 1:[address] [facility] Comment:Results verified by repeat testing Total Bilirubin 0.3 0.0 - 1.4 mg/dL LAB CHEMISTRY METHOD 03/22/2024 1:[address] [facility] Blood Blood sample taken from central line / Unknown Existing Catheter / Unknown 03/22/2024 11:39 AM EST 03/22/2024 11:51 AM EST us Arlen Medrano DO LAB BLOOD ORDERABLES Final Result [facility] [address] [place] [address], * Rad Onc Msq Treatment Summary (03/19/2024 [...] 1:31 PM EST Physician Radiation Oncology RADIATION ONCSENTHIL GY ORDERABLES Final Result MOSAIQ RADIATION ONCOLOGY * Rad Onc Msq Treatment Summary (03/18/2024 [...] GY ORDERABLES Final Result MOSAIQ RADIATION ONCOLOGY * Rad Onc Msq Treatment Summary (03/17/2024 [...] GY ORDERABLES Final Result MOSAIQ RADIATION ONCOLOGY * Rad Onc Msq Treatment Summary (03/16/2024 [...] GY ORDERABLES Final Result MOSAIQ RADIATION ONCOLOGY * Rad Onc Msq Treatment Summary (03/15/2024 [...] 1:57 PM EST Physician Radiation Oncology RADIATION ONCSENTHIL GY ORDERABLES Final Result Performing Organization Address [facility] Co de Phone Number MOSAIQ RADIATION ONCOLOGY * Rad Onc Msq Treatment Summary (03/12/2024 [...] MOSAIQ RADIATION ONCOLOGY 03/12/2024 1:47 PM EST Physician Radiation Oncology RADIATION ONCSENTHIL GY ORDERABLES Final Result Performing Organization Address City/[facility] Co de Phone Number MOSAIQ RADIATION ONCOLOGY * Rad Onc Msq Treatment Summary (03/11/2024 [...] MOSAIQ RADIATION ONCOLOGY 03/11/2024 1:34 PM EST Physician Radiation Oncology RADIATION ONCOLO GY ORDERABLES Final Result MOSAIQ RADIATION ONCOLOGY * Rad Onc Msq Treatment Summary (03/09/2024 [...] MOSAIQ RADIATION ONCOLOGY 03/09/2024 1:42 PM EST Physician Radiation Oncology RADIATION ONCOLO GY ORDERABLES Final Result MOSAIQ RADIATION ONCOLOGY * Rad Onc Msq Treatment Summary (03/08/2024 [...] MOSAIQ RADIATION ONCOLOGY 03/08/2024 1:45 PM EST Physician Radiation Oncology RADIATION ONCOLO GY ORDERABLES Final Result Performing Organization Address City/State/[facility] Co de Phone Number MOSAIQ RADIATION ONCOLOGY * Rad Onc Msq Treatment Summary (03/05/2024 1:54 PM EST) Pathologist [facility] Treatment Site Pelvis/Anus MOS AIQ RADIATION ONCOLOGY [...] MOSAIQ RADIATION ONCOLOGY 03/05/2024 1:54 PM EST Physician Radiation Oncology RADIATION ONCOLO GY ORDERABLES Final Result Performing Organization Address City/[facility] de Phone Number MOSAIQ RADIATION ONCOLOGY * (ABNORMAL) Hemoglobin and hematocrit (03/05/2024 11:04 AM EST) Only the most recent of8 resultswithin the time period is included. Hemoglobin 8.0(L) 11.5 - 16.0 g/dL LAB HEMETOLOGY METHOD 03/05/2024 11:43 AM EST [facility] Hematocrit 25.7(L) 35.0 - 47.0 % LAB HEMETOLOGY METHOD 03/05/2024 11:43 AM EST [facility] Blood Venipuncture / Unknown 03/05/2024 11:04 AM EST 03/05/2024 11:27 AM EST Al Gan MD LAB BLOOD ORDERABLES Fi nal Result Performing Organization Address City/[facility] Co de Phone Number [facility] [address] [place] [address], [place] [phone] * Transfuse RBC (03/05/2024 12:50 AM EST) Only the most recent of3 resultswithin the time period is included. Al Gan MD BLOOD TRANSFUSION ORDER JAYCOB Final Result * Rad Onc Msq Treatment Summary (03/04/2024 [...] MOSAIQ RADIATION ONCOLOGY 03/04/2024 1:59 PM EST Physician Radiation Oncology RADIATION ONCOLO GY ORDERABLES Final Result Performing Organization Address City/[facility] Co de Phone Number MOSAIQ RADIATION ONCOLOGY * Type and screen (03/04/2024 12:27 PM EST) Only the most recent of2 resultswithin the time period is included. ABO Group A 03/04/2024 5:13 PM EST [facility] Rh Type Positive 03/04/2024 5:13 PM EST [facility] Antibody Screen Negative 03/04/2024 5:13 PM EST [facility] Blood Venous blood specimen / Unknown Venipuncture / Unknown 03/04/2024 12:27 PM EST 03/04/2024 12:41 PM EST us Al Gan MD LAB BLOOD BANK TEST ORD ERABLES Final Result Performing Organization Address [facility]/ZIP Co de Phone Number [facility] [address] [place] [address], * Prepare RBC: 1 Units (03/04/2024 9:14 AM EST) Only the most recent of3 resultswithin the time period is included. [facility] Signature Product Code [id number] 03/04/2024 7:[address] [facility] Unit Number [id number] 03/04/19 7:[address] [facility] Crossmatch Compatible 03/04/2024 5:[address] [facility] Dispense Status Transfused 03/04/2024 7:[address] [facility] Unit ABO Rh APOS 03/04/2024 7:[address] [facility] Unit Expiration Date Time [id number] 03/04/2024 7:[address] [facility] Unit Blood Type 6200 03/04/2024 7:[address] [facility] Blood Venous blood specimen / Unknown 03/04/2024 9:14 AM EST 03/04/2024 12:41 PM EST us Al Gan MD BLOOD BANK PRODUCT ORDE RABLES Final Result Performing Organization Address City/[facility]/ZIP Co de Phone Number [facility] [address] [place] [address], * Phosphorus (03/04/2024 5:14 AM EST) Only the most recent of3 resultswithin the time period is included. Pathologist [facility] Phosphorus 3.1 2.5 - 4.5 mg/dL LAB CHEMISTRY METHOD 03/04/2024 8:[address] [facility] Blood Venous blood specimen / Unknown Venipuncture / Unknown 03/04/2024 5:14 AM EST 03/04/2024 7:30 AM EST us Al Gan MD LAB BLOOD ORDERABLES Fi nal Result Performing Organization Address City/[facility]/ZIP Co de Phone Number [facility] [address] [place] [address], [place] [phone] * Magnesium (03/04/2024 5:14 AM EST) Only the most recent of13 resultswithin the time period is included. [facility] Magnesium 1.9 1.9 - 2.6 mg/dL LAB CHEMISTRY METHOD 03/04/2024 8:03 AM EST [facility] Blood Venous blood specimen / Unknown Venipuncture / Unknown 03/04/2024 5:14 AM EST 03/04/2024 7:30 AM EST us Al Gan MD LAB BLOOD ORDERABLES Fi nal Result Performing Organization Address City/[facility]/ZIP Co de Phone Number [facility] [address] [place] [address], [place] [phone] * (ABNORMAL) Basic metabolic panel (03/04/2024 5:14 AM EST) Only the most recent of16 resultswithin the time period is included. [facility] Sodium 136 133 - 145 mmol/L LAB CHEMISTRY METHOD 03/04/2024 8:[address] [facility] Potassium 3.8 3.5 - 5.5 mmol/L LAB CHEMISTRY METHOD 03/04/2024 8:03 AM EST [facility] Chloride 100 96 - 110 mmol/L LAB CHEMISTRY METHOD 03/04/2024 8:[address] [facility] CO2 31 21 - 32 mmol/L LAB CHEMISTRY METHOD 03/04/2024 8:[address] [facility] Anion Gap 5 3 - 11 LAB CHEMISTRY METHOD 03/04/2024 8:[address] [facility] Glucose 100 70 - 100 mg/dL LAB CHEMISTRY METHOD 03/04/2024 8:[address] [facility] BUN 6 5 - 25 mg/dL LAB CHEMISTRY METHOD 03/04/2024 8:[address] [facility] Creatinine 0.43(L) 0.50 - 1.10 mg/dL LAB CHEMISTRY METHOD 03/04/2024 8:[address] [facility] eGFR 118 >=60 mL/min/1. 73m2 LAB CHEMISTRY METHOD 03/04/2024 8:[address] [facility] Comment:Calculation based on the??Chronic Kidney Disease Epidemiology Collaboration (CKD-EPI) equation refit??without adjustment for race. BUN/Creatinine Ratio 14.0 LAB CHEMISTRY METHOD 03/04/2024 8:[address] [facility] Calcium 8.0(L) 8.5 - 10.5 mg/dL LAB CHEMISTRY METHOD 03/04/2024 8:[address] [facility] Blood Venous blood specimen / Unknown Venipuncture / Unknown 03/04/2024 5:14 AM EST 03/04/2024 7:30 AM EST us Al Gan MD LAB BLOOD ORDERABLES Fi nal Result [facility] [address] [place] [address], * Rad Onc Msq Treatment Summary (03/03/2024 [...] MOSAIQ RADIATION ONCOLOGY 03/03/2024 1:33 PM EST Physician Radiation Oncology MD RADIATION ONCOLO GY ORDERABLES Final Result MOSAIQ RADIATION ONCOLOGY * (ABNORMAL) Complete blood count (03/02/2024 8:24 AM EST) Only the most recent of8 resultswithin the time period is included. WBC 2.5(L) 4.8 - 10.8 K/[facility] LAB HEMETOLOGY METHOD 03/02/2024 9:[address] [facility] RBC 2.90(L) 3.80 - 4.80 M/[facility] LAB HEMETOLOGY METHOD 03/02/2024 9:[address] [facility] Hemoglobin 7.3(L) 11.5 - 16.0 g/dL LAB HEMETOLOGY METHOD 03/02/2024 9:[address] [facility] Hematocrit 23.3(L) 35.0 - 47.0 % LAB HEMETOLOGY METHOD 03/02/2024 9:[address] [facility] MCV 81.2 79.0 - 98.0 FL LAB HEMETOLOGY METHOD 03/02/2024 9:[address] [facility] MCH 25.4(L) 27.0 - 32.0 pcg LAB HEMETOLOGY METHOD 03/02/2024 9:[address] [facility] MCHC 31.3(L) 32.0 - 37.0 g/dL LAB HEMETOLOGY METHOD 03/02/2024 9:26 AM EST [facility] RDW 20.9(H) 11.0 - 15.0 % LAB HEMETOLOGY METHOD 03/02/2024 9:[address] [facility] Platelets 114(L) 130 - 400 K/mcL LAB HEMETOLOGY METHOD 03/02/2024 9:[address] [facility] MPV 9.8 7.0 - 11.0 FL LAB HEMETOLOGY METHOD 03/02/2024 9:[address] [facility] NRBC 0.0 <1.0 % LAB HEMETOLOGY METHOD 03/02/2024 9:[address] [facility] NRBC Absolute 0.00 <0.10 K/mcL LAB HEMETOLOGY METHOD 03/02/2024 9:[address] [facility] Blood Venous blood specimen / Unknown Venipuncture / Unknown 03/02/2024 8:24 AM EST 03/02/2024 9:23 AM EST Al Gan MD LAB BLOOD ORDERABLES Fi nal Result [facility] [address] [place] [address], * (ABNORMAL) Iron and TIBC (03/02/2024 7:29 AM EST) Iron 20(L) 40 - 150 mcg/dL LAB CHEMISTRY METHOD 03/02/2024 10:[address] [facility] TIBC 111(L) 250 - 450 mcg/dL LAB CHEMISTRY METHOD 03/02/2024 10:[address] [facility] Iron Saturation 18 15 - 50 % LAB CHEMISTRY METHOD 03/02/2024 10:06 AM EST [facility] Blood Blood sample taken from central line / Unknown Existing Catheter / Unknown 03/02/2024 7:29 AM EST 03/02/2024 10:06 AM EST us Al Gan MD LAB BLOOD ORDERABLES Fi nal Result [facility] [address] [place] [address], [place] [phone] * Ferritin (03/02/2024 7:29 AM EST) Pathologist [facility] Ferritin 237 8 - 252 ng/mL LAB CHEMISTRY METHOD 03/02/2024 10:07 AM EST [facility] Blood Blood sample taken from central line / Unknown Existing Catheter / Unknown 03/02/2024 7:29 AM EST 03/02/2024 10:06 AM EST us Al Gan MD LAB BLOOD ORDERABLES Fi nal Result Performing Organization Address City/[facility]/ZIP Co de Phone Number [facility] [address] [place] [address], [place] [phone] * (ABNORMAL) Transferrin (03/02/2024 6:41 AM EST) Transferrin 83(L) 200 - 360 mg/dL 03/04/2024 5:12 AM EST [facility] Comment: Test performed at [facility], [address] , [place] [place], [place] ??[address] ? [phone] Clare Scales MD, PhD - Cancer Genetics Assistant Blood Blood sample taken from central line / Unknown Venipuncture / Unknown 03/02/2024 6:41 AM EST 03/02/2024 7:21 AM EST us Al Gan MD LAB BLOOD ORDERABLES Fi nal Result [facility] [address] [place] [address] * Rad Onc Msq Treatment Summary (03/01/2024 8:30 AM EST) Treatment Site Pelvis/Anus MOS AIQ RADIATION ONCOLOGY Course Number 1 MOSAIQ RADIATION ONCOLOGY Prescribed Fractional Dose 180 cGray MOSAIQ RADIATION ONCOLOGY Prescribed Total Dose 5,400 cGray MOSAIQ RADIATION ONCOLOGY Actual Fractions Delivered 11 MOSAIQ RADIATION ONCOLOGY Prescription Pattern Comment Empty Colostomy Bag Pre TX. custom bolus, see plan MOSAIQ RADIATION ONCOLOGY Actual Session Delivered Dose 180 cGray MOSAIQ RADIATION ONCOLOGY Actual Total Dose 1,980 cGray MOSAIQ RADIATION ONCOLOGY Prescribed Technique 4 ARC VMAT MOSAIQ RADIATION ONCOLOGY Elapsed Days 21 MOSAIQ RADIATION ONCOLOGY Start Date 02/09/2024 MOSAIQ RADIATION ONCOLOGY Last Date 03/01/2024 MOSAIQ RADIATION ONCOLOGY Prescribed Number of Fractions 30 MOSAIQ RADIATION ONCOLOGY 03/01/2024 8:30 AM EST Physician Radiation Oncology RADIATION ONCOLO GY ORDERABLES Final Result Performing Organization Address [facility] Co de Phone Number MOSAIQ RADIATION ONCOLOGY * Rad Onc Msq Treatment Summary (02/27/2024 1:37 PM EST) Treatment Site Pelvis/Anus MOS AIQ RADIATION ONCOLOGY Course Number 1 MOSAIQ RADIATION ONCOLOGY Prescribed Fractional Dose 180 cGray MOSAIQ RADIATION ONCOLOGY Prescribed Total Dose 5,400 cGray MOSAIQ RADIATION ONCOLOGY Actual Fractions Delivered 10 MOSAIQ RADIATION ONCOLOGY Prescription Pattern Comment Empty Colostomy Bag Pre TX. custom bolus, see plan MOSAIQ RADIATION ONCOLOGY Actual Session Delivered Dose 180 cGray MOSAIQ RADIATION ONCOLOGY Actual Total Dose 1,800 cGray MOSAIQ RADIATION ONCOLOGY Prescribed Technique 4 ARC VMAT MOSAIQ RADIATION ONCOLOGY Elapsed Days 18 MOSAIQ RADIATION ONCOLOGY Start Date 02/09/2024 MOSAIQ RADIATION ONCOLOGY Last Date 02/27/2024 MOSAIQ RADIATION ONCOLOGY Prescribed Number of Fractions 30 MOSAIQ RADIATION ONCOLOGY 02/27/2024 1:37 PM EST Physician Radiation Oncology RADIATION ONCSENTHIL GY ORDERABLES Final Result MOSAIQ RADIATION ONCOLOGY * Rad Onc Msq Treatment Summary (02/26/2024 2:57 PM EST) Treatment Site Pelvis/Anus MOS AIQ RADIATION ONCOLOGY Course Number 1 MOSAIQ RADIATION ONCOLOGY Prescribed Fractional Dose 180 cGray MOSAIQ RADIATION ONCOLOGY Prescribed Total Dose 5,400 cGray MOSAIQ RADIATION ONCOLOGY Actual Fractions Delivered 9 MOSAIQ RADIATION ONCOLOGY Prescription Pattern Comment Empty Colostomy Bag Pre TX. custom bolus, see plan MOSAIQ RADIATION ONCOLOGY Actual Session Delivered Dose 180 cGray MOSAIQ RADIATION ONCOLOGY Actual Total Dose 1,620 cGray MOSAIQ RADIATION ONCOLOGY Prescribed Technique 4 ARC VMAT MOSAIQ RADIATION ONCOLOGY Elapsed Days 17 MOSAIQ RADIATION ONCOLOGY Start Date 02/09/2024 MOSAIQ RADIATION ONCOLOGY Last Date 02/26/2024 MOSAIQ RADIATION ONCOLOGY Prescribed Number of Fractions 30 MOSAIQ RADIATION ONCOLOGY 02/26/2024 2:57 PM EST Physician Radiation Oncology RADIATION ONCSENTHIL GY ORDERABLES Final Result Performing Organization Address [facility] Co de Phone Number MOSAIQ RADIATION ONCOLOGY * Rad Onc Msq Treatment Summary (02/25/2024 12:45 PM EST) Treatment Site Pelvis/Anus MOS AIQ RADIATION ONCOLOGY Course Number 1 MOSAIQ RADIATION ONCOLOGY Prescribed Fractional Dose 180 cGray MOSAIQ RADIATION ONCOLOGY Prescribed Total Dose 5,400 cGray MOSAIQ RADIATION ONCOLOGY Actual Fractions Delivered 8 MOSAIQ RADIATION ONCOLOGY Prescription Pattern Comment Empty Colostomy Bag Pre TX. custom bolus, see plan MOSAIQ RADIATION ONCOLOGY Actual Session Delivered Dose 180 cGray MOSAIQ RADIATION ONCOLOGY Actual Total Dose 1,440 cGray MOSAIQ RADIATION ONCOLOGY Prescribed Technique 4 ARC VMAT MOSAIQ RADIATION ONCOLOGY Elapsed Days 16 MOSAIQ RADIATION ONCOLOGY Start Date 02/09/2024 MOSAIQ RADIATION ONCOLOGY Last Date 02/25/2024 MOSAIQ RADIATION ONCOLOGY Prescribed Number of Fractions 30 MOSAIQ RADIATION ONCOLOGY 02/25/2024 12:4 5 PM EST Physician Radiation Oncology RADIATION ONCOLO GY ORDERABLES Final Result MOSAIQ RADIATION ONCOLOGY * Rad Onc Msq Treatment Summary (02/24/2024 1:50 PM EST) Treatment Site Pelvis/Anus MOS AIQ RADIATION ONCOLOGY Course Number 1 MOSAIQ RADIATION ONCOLOGY Prescribed Fractional Dose 180 cGray MOSAIQ RADIATION ONCOLOGY Prescribed Total Dose 5,400 cGray MOSAIQ RADIATION ONCOLOGY Actual Fractions Delivered 7 MOSAIQ RADIATION ONCOLOGY Prescription Pattern Comment Empty Colostomy Bag Pre TX. custom bolus, see plan MOSAIQ RADIATION ONCOLOGY Actual Session Delivered Dose 180 cGray MOSAIQ RADIATION ONCOLOGY Actual Total Dose 1,260 cGray MOSAIQ RADIATION ONCOLOGY Prescribed Technique 4 ARC VMAT MOSAIQ RADIATION ONCOLOGY Elapsed Days 15 MOSAIQ RADIATION ONCOLOGY Start Date 02/09/2024 MOSAIQ RADIATION ONCOLOGY Last Date 02/24/2024 MOSAIQ RADIATION ONCOLOGY Prescribed Number of Fractions 30 MOSAIQ RADIATION ONCOLOGY 02/24/2024 1:50 PM EST Physician Radiation Oncology RADIATION ONCOLO GY ORDERABLES Final Result Performing Organization Address [facility] Co de Phone Number MOSAIQ RADIATION ONCOLOGY * Rad Onc Msq Treatment Summary (02/23/2024 1:56 PM EST) Treatment Site Pelvis/Anus MOS AIQ RADIATION ONCOLOGY Course Number 1 MOSAIQ RADIATION ONCOLOGY Prescribed Fractional Dose 180 cGray MOSAIQ RADIATION ONCOLOGY Prescribed Total Dose 5,400 cGray MOSAIQ RADIATION ONCOLOGY Actual Fractions Delivered 6 MOSAIQ RADIATION ONCOLOGY Prescription Pattern Comment Empty Colostomy Bag Pre TX. custom bolus, see plan MOSAIQ RADIATION ONCOLOGY Actual Session Delivered Dose 180 cGray MOSAIQ RADIATION ONCOLOGY Actual Total Dose 1,080 cGray MOSAIQ RADIATION ONCOLOGY Prescribed Technique 4 ARC VMAT MOSAIQ RADIATION ONCOLOGY Elapsed Days 14 MOSAIQ RADIATION ONCOLOGY Start Date 02/09/2024 MOSAIQ RADIATION ONCOLOGY Last Date 02/23/2024 MOSAIQ RADIATION ONCOLOGY Prescribed Number of Fractions 30 MOSAIQ RADIATION ONCOLOGY 02/23/2024 1:56 PM EST Physician Radiation Oncology RADIATION ONCOLO GY ORDERABLES Final Result MOSAIQ RADIATION ONCOLOGY * Lactate, with reflex (02/18/2024 7:04 AM EST) Only the most recent of2 resultswithin the time period is included. LACTIC ACID 0.9 0.4 - 2.0 mmol/L LAB CHEMISTRY METHOD 02/18/2024 8:06 AM EST [facility] Blood Venous blood specimen / Unknown Venipuncture / Unknown 02/18/2024 7:04 AM EST 02/18/2024 7:18 AM EST us Magali ASCENCIO LAB BLOOD ORDERABLES Final R esult [facility] [address] [place] [address], * Procalcitonin (02/18/2024 7:04 AM EST) Procalcitonin 0.05 <=0.16 ng/mL LAB CHEMISTRY METHOD 02/18/2024 8:52 AM EST [facility] Blood Venous blood specimen / Unknown Venipuncture / Unknown 02/18/2024 7:04 AM EST 02/18/2024 7:15 AM EST Narrative [facility] - 02/18/2024 8:52 AM EST Procalcitonin > 2.00 ng/ml: Procalcitonin Levels above 2.00 ng/ml, on the first day of ICU admission represent a high risk for progression to severe sepsis and/or septic shock. Procalcitonin < 0.50 ng/ml: Procalcitonin levels below 0.50 ng/ml on the first day of ICU admission represent a low risk for progression to severe sepsis and/or septic shock. Concentrations <0.5 ng/mL do not exclude an infection, on account of local ized infections (without systemic signs) which can be associated with such low concentrations, or a systemic infection in its initial stages (<6 hours). Furthermore, increased procalcitonin can occur without infection. PCT concentrations between 0.5 and 2.0 ng/mL should be interpreted taking into account the patient's history. It is recommended to retest PCT within 6-24 hours if any concentrations <2.0 ng/mL are obtained. Magali ASCENCIO LAB BLOOD ORDERABLES Final R esult Performing Organization Address City/[facility]/ZIP Co de Phone Number [facility] [address] [place] [address], [place] [phone] * Lavender tube (02/18/2024 7:04 AM EST) [facility] Extra Tube Hold for add-ons. 02/18/2024 9:[address] [facility] Comment:Auto resulted. Blood Venous blood specimen / Unknown Venipuncture / Unknown 02/18/2024 7:04 AM EST 02/18/2024 7:23 AM EST Al Gan MD LAB BLOOD ORDERABLES Fi nal Result Performing Organization Address [facility] Co de Phone Number [facility] [address] [place] [address], [place] [phone] * (ABNORMAL) Urinalysis with reflex microscopic and culture (02/17/2024 5:27 PM EST) Only the most recent of2 resultswithin the time period is included. [facility] Specific [place] Urine >1.045(H) 1.003 - 1.030 LAB URINALYSIS - AUTOMATED METHOD 02/17/2024 6:[address] [facility] pH, Urine 6.0 5.0 - 8.0 pH LAB URINALYSIS - AUTOMATED METHOD 02/17/2024 6:[address] [facility] Leukocytes, Urine Negative Negative LAB URINALYSIS - AUTOMATED METHOD 02/17/2024 6:[address] [facility] Nitrite, Urine Negative Negative LAB URINALYSIS - AUTOMATED METHOD 02/17/2024 6:[address] [facility] Protein, Urine 30(A) <=Trace mg/dL LAB URINALYSIS - AUTOMATED METHOD 02/17/2024 6:[address] [facility] Glucose, Urine Negative Negative mg/dL LAB URINALYSIS - AUTOMATED METHOD 02/17/2024 6:[address] [facility] Ketones, Urine Negative Negative mg/dL LAB URINALYSIS - AUTOMATED METHOD 02/17/2024 6:[address] [facility] Urobilinogen , Urine 0.2 0.2 - 1.0 mg/dL LAB URINALYSIS - AUTOMATED METHOD 02/17/2024 6:[address] [facility] Bilirubin, Urine Negative Negative LAB URINALYSIS - AUTOMATED METHOD 02/17/2024 6:[address] [facility] Blood, Urine Small(A) Negative LAB URINALYSIS - AUTOMATED METHOD 02/17/2024 6:[address] [facility] RBC, Urine 4.0 0 - 4 /HPF LAB URINALYSIS - AUTOMATED METHOD 02/17/2024 6:[address] [facility] WBC, Urine 4.0 0 - 4 /HPF LAB URINALYSIS - AUTOMATED METHOD 02/17/2024 6:[address] [facility] Squamous Epithelial, Urine >100(H) 0 - 60 /LPF LAB URINALYSIS - AUTOMATED METHOD 02/17/2024 6:[address] [facility] Non-Squamous Epithelial, Urine Rare Renal Tubular epithelial cells. 5-10 Transitional epithelial cells. /LPF LAB URINALYSIS - AUTOMATED METHOD 02/17/2024 6:[address] [facility] Crystals, Urine Light Calcium Oxalate crystals. Light Amorphous Urate crystals. /LPF LAB URINALYSIS - AUTOMATED METHOD 02/17/2024 6:[address] [facility] Bacteria, Urine Negative Negative /HPF LAB URINALYSIS - AUTOMATED METHOD 02/17/2024 6:[address] [facility] Urine Urine specimen obtained by clean catch procedure / Unknown Non-blood Collection / Unknown 02/17/2024 5:27 PM EST 02/17/2024 5:32 PM EST us Carlos Malave MD LAB URINE ORDERABLES Yamila l Result Performing Organization Address [facility] Co de Phone Number [facility] [address] [place] [address], [place] [phone] * Carranza urine culture tube (02/17/2024 5:27 PM EST) Only the most recent of2 resultswithin the time period is included. Extra Tube Hold for add-ons. 02/17/2024 7:01 PM EST [facility] Comment:Auto resulted. Urine Urine specimen obtained by clean catch procedure / Unknown Non-blood Collection / Unknown 02/17/2024 5:27 PM EST 02/17/2024 5:32 PM EST us Carlos Malave MD LAB URINE ORDERABLES Yamila l Result Performing Organization Address [facility] de Phone Number [facility] [address] [place] [address], [place] [phone] * CT Abdomen Pelvis w Contrast (02/17/2024 4:59 PM EST) Only the most recent of2 resultswithin the time period is included. Anatomical Region Laterality Modality Body Computed Tomogra phy 02/17/2024 5:22 PM EST Impressions 02/17/2024 5:22 PM EST Impression: Heterogeneous mass in the pelvis involving the rectum, vagina and labia is consistent with the given history of anal cancer. Mild interval decrease in size could be secondary to treatment. Central fluid attenuation is secondary to necrosis. Infection is considered less likely. Slight interval increase in size and malignant lymphadenopathy. This document has been electronically signed by: Danielle Thompson MD on 02/17/2024 17:22:27 Narrative 02/17/2024 5:[address] abdomen and pelvis with contrast Comparison: CT - CT ABD PEL W CONTRAST - 02/05/24 20:18 EST Findings: No consolidation at the lung bases. Unchanged pulmonary nodules measure up to 3 mm; follow up as clinically indicated. Trace pleural fluid. Status post cholecystectomy. The spleen is enlarged, measuring 14.9 cm in craniocaudal dimension. Subcentimeter low attenuating lesions which are too small to characterize in the left kidney. No hydronephrosis. Left nephrolithiasis measures 3 mm. There is a Tolentino catheter in the bladder, which is decompressed. The other solid organs are unremarkable. No dilation or wall thickening of the small bowel and colon. Status post appendectomy. Left lower quadrant colostomy. There is a heterogeneous enhancing mass in the pelvis measuring 8.6 x 9.3 cm, previously measuring 9.1 x 9.8 cm. The mass measures greater than 13.1 cm in craniocaudal dimension. The mass involves the rectum, vagina and labia. Central decreased attenuation likely indicates necrosis. There is fluid in the vagina. Associated centrally necrotic lymph nodes measure up to 2.3 cm, previously 2.1 cm in short axis in the right groin and 1.9 cm, previously 1.8 cm in short axis along the right pelvic sidewall. No aneurysm. Kccj-yo-oajtsumh calcified and noncalcified atherosclerotic disease. No ascites. There is infiltration of the subcutaneous fat which may indicate anasarca. There is presacral edema. No acute osseous abnormality. Procedure Note Danielle Basilio MD - 02/17/2024 CT abdomen and pelvis with contrast Comparison: CT - CT ABD PEL W CONTRAST - 02/05/24 20:18 EST Findings: No consolidation at the lung bases. Unchanged pulmonary nodules measureup to 3 mm; follow up as clinically indicated. Trace pleural fluid. Status post cholecystectomy. The spleen is enlarged, measuring 14.9 cmin craniocaudal dimension. Subcentimeter low attenuating lesions which are too small to characterize in the left kidney. No hydronephrosis. Left nephrolithiasis measures 3 mm. There is a Tolentino catheter in the bladder, which is decompressed. The other solid organs are unremarkable. No dilation or wall thickening of the small bowel and colon. Status post appendectomy. Left lower quadrant colostomy. There is a heterogeneous enhancing mass in the pelvis measuring 8.6 x 9.3 cm, previouslymeasuring 9.1 x 9.8 cm. The mass measures greater than 13.1 cm in craniocaudal dimension. The mass involves the rectum, vagina and labia. Central decreased attenuation likely indicates necrosis. There is fluid in the vagina. Associated centrally necrotic lymph nodes measure up to 2.3 cm, previously 2.1 cm in short axis in the right groin and 1.9 cm,previously 1.8 cm in short axis along the right pelvic sidewall. No aneurysm. Gvqc-mi-hlojmumq calcified and noncalcified atherosclerotic disease. No ascites. There is infiltration of the subcutaneous fat which may indicate anasarca. There is presacral edema. No acute osseous abnormality. IMPRESSION: Impression: Heterogeneous mass in the pelvis involving the rectum, vagina and labiais consistent with the given history of anal cancer. Mild interval decrease in size could be secondary to treatment. Central fluid attenuation is secondary to necrosis. Infection is considered less likely. Slight interval increase in size and malignant lymphadenopathy. This document has been electronically signed by: Danielle Thompson MD on 02/17/2024 17:22:27 Carlos Malave MD IMG CT PROCEDURES Final R esult * Blood Culture, Peripheral #2 (02/17/2024 4:27 PM EST) Only the most recent of6 resultswithin the time period is included. [facility] Culture, Blood No growth at 5 days 02/22/2024 5:01 PM EST [facility] Blood Venous blood specimen / Unknown Venipuncture / Unknown 02/17/2024 4:27 PM EST 02/17/2024 4:46 PM EST Carlos Malave MD LAB MICROBIOLOGY - GENERA L ORDERABLES Final Result [facility] [address] [place] [address], [place] [phone] * Respiratory virus panel molecular study (02/17/2024 4:22 PM EST) Only the most recent of2 resultswithin the time period is included. [facility] Adenovirus Detection by PCR Not Detected Not Detected LAB MICROBIOLOGY METHOD 02/17/2024 5:[address] [facility] Influenza A PCR Not Detected Not Detected LAB MICROBIOLOGY METHOD 02/17/2024 5:[address] [facility] Influenza B PCR Not Detected Not Detected LAB MICROBIOLOGY METHOD 02/17/2024 5:[address] [facility] Coronavirus 229E Not Detected Not Detected LAB MICROBIOLOGY METHOD 02/17/2024 5:[address] [facility] Coronavirus HKU1 Not Detected Not Detected LAB MICROBIOLOGY METHOD 02/17/2024 5:[address] [facility] Coronavirus OC43 Not Detected Not Detected LAB MICROBIOLOGY METHOD 02/17/2024 5:[address] [facility] Coronavirus NL63 Not Detected Not Detected LAB MICROBIOLOGY METHOD 02/17/2024 5:[address] [facility] Parainfluenza Virus 1 Not Detected Not Detected LAB MICROBIOLOGY METHOD 02/17/2024 5:[address] [facility] Parainfluenza Virus 2 Not Detected Not Detected LAB MICROBIOLOGY METHOD 02/17/2024 5:[address] [facility] Parainfluenza Virus 3 Not Detected Not Detected LAB MICROBIOLOGY METHOD 02/17/2024 5:[address] [facility] Parainfluenza Virus 4 Not Detected Not Detected LAB MICROBIOLOGY METHOD 02/17/2024 5:[address] [facility] RSV PCR Not Detected Not Detected LAB MICROBIOLOGY METHOD 02/17/2024 5:[address] [facility] Human Metapneumovirus A and B Not Detected Not Detected LAB MICROBIOLOGY METHOD 02/17/2024 5:[address] [facility] Rhinovirus/Entero virus Not Detected Not Detected LAB MICROBIOLOGY METHOD 02/17/2024 5:[address] [facility] Bordetella pertussis Not Detected Not Detected LAB MICROBIOLOGY METHOD 02/17/2024 5:[address] [facility] Bordetella parapertussis Not Detected Not Detected LAB MICROBIOLOGY METHOD 02/17/2024 5:42 PM EST [facility] Mycoplasma pneumo by PCR Not Detected Not Detected LAB MICROBIOLOGY METHOD 02/17/2024 5:42 PM EST [facility] Chlamydia pneumoniae Not Detected Not Detected LAB MICROBIOLOGY METHOD 02/17/2024 5:42 PM EST [facility] SARS COV-2 Not Detected Not Detected LAB MICROBIOLOGY METHOD 02/17/2024 5:42 PM EST [facility] Swab Both anterior nares / Unknown Non-blood Collection / Unknown 02/17/2024 4:22 PM EST 02/17/2024 4:45 PM EST [facility] - 02/17/2024 5:42 PM EST Testing was performed using the [employer] Respiratory Pathogen PCR Assay. All results must be correlated with the clinical findings. Results should not be used as the sole basis for diagnosis. False Negative results may occur from the presence of sequence variants in the region targeted by the assay or the presence of inhibitors. Results may be affected by concurrent antiviral/antimicrobial therapy or levels of organisms that are below the limit of detection. us Carlos Malave MD LAB MICROBIOLOGY - GENERA L ORDERABLES Final Result [facility] [address] [place] [address], * XR Chest 1 View (02/17/2024 4:06 PM EST) Only the most recent of2 resultswithin the time period is included. Anatomical Region Laterality Modality Body Radiographic Cesia ging 02/17/2024 4:16 PM EST Impressions 02/17/2024 4:17 PM EST Impression: No active pulmonary process identified. [facility] SONU ([id number]) -------- FINAL REPORT -------- Dictated By: Mae Oreilly Dictated Date: 02/17/2024 16:16 ET Assigned Physician: Mae Oreilly Reviewed and Electronically Signed By: Mae Oreilly Signed Date: 02/17/2024 16:17 ET Workstation ID: [id number] Transcribed By: Self Edit Transcribed Date: 02/17/2024 16:16 ET Narrative 02/17/2024 4:17 PM EST History: Generalized weakness. Personal history of anorectal carcinoma. Comparison: 02/09/24 Findings: Semiupright portable AP chest from 4:00 PM. The cardiac silhouette remains normal in size. A Port-A-Cath is again seen on the right, the tip projecting at the level of the SVC, unchanged. Hilar contours and pulmonary vascularity are within normal limits. The lungs are grossly clear. The costophrenic angles are sharp. Cholecystectomy clips are again seen. Procedure Note Mae Oreilly MD - 02/17/2024 History: Generalized weakness. Personal history of anorectal carcinoma. Comparison: 02/09/24 Findings: Semiupright portable AP chest from 4:00 PM. The cardiac silhouette remainsnormal in size. A Port-A-Cath is again seen on the right, the tipprojecting at the level of the SVC, unchanged. Hilar contours andpulmonary vascularity are within normal limits. The lungs are grosslyclear. The costophrenic angles are sharp. Cholecystectomy clips are againseen. IMPRESSION: Impression: No active pulmonary process identified. [employer] PA ([id number]) -------- FINAL REPORT -------- Dictated By: Mae Oreilly Dictated Date: 02/17/2024 16:16 ET Assigned Physician: Mae Oreilly Reviewed and Electronically Signed By: Mae Oreilly Signed Date: 02/17/2024 16:17 ET Workstation ID: [id number] Transcribed By: Self Edit Transcribed Date: 02/17/2024 16:16 ET us Carlos Malave MD IMG XR PROCEDURES Final R esult * (ABNORMAL) Lipase (02/17/2024 3:23 PM EST) Only the most recent of2 resultswithin the time period is included. Lipase 10(L) 13 - 75 unit/L LAB CHEMISTRY METHOD 02/17/2024 4:04 PM EST [facility] Blood Venous blood specimen / Unknown Venipuncture / Unknown 02/17/2024 3:23 PM EST 02/17/2024 3:45 PM EST Carlos Malave MD LAB BLOOD ORDERABLES Yamila l Result [facility] [address] [place] [address], [place] [phone] * Rad Onc Msq Treatment Summary (02/16/2024 2:03 PM EST) Pathologist [facility] Treatment Site Pelvis/Anus MOS AIQ RADIATION ONCOLOGY Course Number 1 MOSAIQ RADIATION ONCOLOGY Prescribed Fractional Dose 180 cGray MOSAIQ RADIATION ONCOLOGY Prescribed Total Dose 5,400 cGray MOSAIQ RADIATION ONCOLOGY Actual Fractions Delivered 5 MOSAIQ RADIATION ONCOLOGY Prescription Pattern Comment Empty Colostomy Bag Pre TX. custom bolus, see plan MOSAIQ RADIATION ONCOLOGY Actual Session Delivered Dose 180 cGray MOSAIQ RADIATION ONCOLOGY Actual Total Dose 900 cGray MOSAIQ RADIATION ONCOLOGY Prescribed Technique 4 ARC VMAT MOSAIQ RADIATION ONCOLOGY Elapsed Days 7 MOSAIQ RADIATION ONCOLOGY Start Date 02/09/2024 MOSAIQ RADIATION ONCOLOGY Last Date 02/16/2024 MOSAIQ RADIATION ONCOLOGY Prescribed Number of Fractions 30 MOSAIQ RADIATION ONCOLOGY 02/16/2024 2:03 PM EST Physician Radiation Oncology RADIATION ONCOLO GY ORDERABLES Final Result MOSAIQ RADIATION ONCOLOGY * Rad Onc Msq Treatment Summary (02/13/2024 1:40 PM EST) Treatment Site Pelvis/Anus MOS AIQ RADIATION ONCOLOGY Course Number 1 MOSAIQ RADIATION ONCOLOGY Prescribed Fractional Dose 180 cGray MOSAIQ RADIATION ONCOLOGY Prescribed Total Dose 5,400 cGray MOSAIQ RADIATION ONCOLOGY Actual Fractions Delivered 4 MOSAIQ RADIATION ONCOLOGY Prescription Pattern Comment Empty Colostomy Bag Pre TX. custom bolus, see plan MOSAIQ RADIATION ONCOLOGY Actual Session Delivered Dose 180 cGray MOSAIQ RADIATION ONCOLOGY Actual Total Dose 720 cGray MOSAIQ RADIATION ONCOLOGY Prescribed Technique 4 ARC VMAT MOSAIQ RADIATION ONCOLOGY Elapsed Days 4 MOSAIQ RADIATION ONCOLOGY Start Date 02/09/2024 MOSAIQ RADIATION ONCOLOGY Last Date 02/13/2024 MOSAIQ RADIATION ONCOLOGY Prescribed Number of Fractions 30 MOSAIQ RADIATION ONCOLOGY 02/13/2024 1:40 PM EST Physician Radiation Oncology RADIATION ONCSENTHIL GY ORDERABLES Final Result Performing Organization Address [facility] Co de Phone Number MOSAIQ RADIATION ONCOLOGY * Rad Onc Msq Treatment Summary (02/12/2024 1:49 PM EST) Treatment Site Pelvis/Anus MOS AIQ RADIATION ONCOLOGY Course Number 1 MOSAIQ RADIATION ONCOLOGY Prescribed Fractional Dose 180 cGray MOSAIQ RADIATION ONCOLOGY Prescribed Total Dose 5,400 cGray MOSAIQ RADIATION ONCOLOGY Actual Fractions Delivered 3 MOSAIQ RADIATION ONCOLOGY Prescription Pattern Comment Empty Colostomy Bag Pre TX. custom bolus, see plan MOSAIQ RADIATION ONCOLOGY Actual Session Delivered Dose 180 cGray MOSAIQ RADIATION ONCOLOGY Actual Total Dose 540 cGray MOSAIQ RADIATION ONCOLOGY Prescribed Technique 4 ARC VMAT MOSAIQ RADIATION ONCOLOGY Elapsed Days 3 MOSAIQ RADIATION ONCOLOGY Start Date 02/09/2024 MOSAIQ RADIATION ONCOLOGY Last Date 02/12/2024 MOSAIQ RADIATION ONCOLOGY Prescribed Number of Fractions 30 MOSAIQ RADIATION ONCOLOGY 02/12/2024 1:49 PM EST Physician Radiation Oncology RADIATION PATRICIA GY ORDERABLES Final Result Performing Organization Address [facility] Co de Phone Number MOSAIQ RADIATION ONCOLOGY * Rad Onc Msq Treatment Summary (02/10/2024 1:50 PM EST) Treatment Site Pelvis/Anus MOS AIQ RADIATION ONCOLOGY Course Number 1 MOSAIQ RADIATION ONCOLOGY Prescribed Fractional Dose 180 cGray MOSAIQ RADIATION ONCOLOGY Prescribed Total Dose 5,400 cGray MOSAIQ RADIATION ONCOLOGY Actual Fractions Delivered 2 MOSAIQ RADIATION ONCOLOGY Prescription Pattern Comment Empty Colostomy Bag Pre TX. custom bolus, see plan MOSAIQ RADIATION ONCOLOGY Actual Session Delivered Dose 180 cGray MOSAIQ RADIATION ONCOLOGY Actual Total Dose 360 cGray MOSAIQ RADIATION ONCOLOGY Prescribed Technique 4 ARC VMAT MOSAIQ RADIATION ONCOLOGY Elapsed Days 1 MOSAIQ RADIATION ONCOLOGY Start Date 02/09/2024 MOSAIQ RADIATION ONCOLOGY Last Date 02/10/2024 MOSAIQ RADIATION ONCOLOGY Prescribed Number of Fractions 30 MOSAIQ RADIATION ONCOLOGY 02/10/2024 1:50 PM EST Physician Radiation Oncology RADIATION ONCOLO GY ORDERABLES Final Result Performing Organization Address [facility]/ZIP Co de Phone Number MOSAIQ RADIATION ONCOLOGY * Rad Onc Msq Treatment Summary (02/10/2024 1:34 PM EST) Pathologist [facility] Treatment Site Pelvis/Anus MOS AIQ RADIATION ONCOLOGY Course Number 1 MOSAIQ RADIATION ONCOLOGY Prescribed Fractional Dose 180 cGray MOSAIQ RADIATION ONCOLOGY Prescribed Total Dose 5,400 cGray MOSAIQ RADIATION ONCOLOGY Actual Fractions Delivered 2 MOSAIQ RADIATION ONCOLOGY Prescription Pattern Comment Empty Colostomy Bag Pre TX. custom bolus, see plan MOSAIQ RADIATION ONCOLOGY Actual Session Delivered Dose 180 cGray MOSAIQ RADIATION ONCOLOGY Actual Total Dose 360 cGray MOSAIQ RADIATION ONCOLOGY Prescribed Technique 4 ARC VMAT MOSAIQ RADIATION ONCOLOGY Elapsed Days 1 MOSAIQ RADIATION ONCOLOGY Start Date 02/09/2024 MOSAIQ RADIATION ONCOLOGY Last Date 02/10/2024 MOSAIQ RADIATION ONCOLOGY Prescribed Number of Fractions 30 MOSAIQ RADIATION ONCOLOGY 02/10/2024 1:34 PM EST Physician Radiation Oncology RADIATION ONCOLO GY ORDERABLES Final Result Performing Organization Address [facility] de Phone Number MOSAIQ RADIATION ONCOLOGY * Potassium (02/09/2024 8:45 PM EST) Pathologist [facility] Potassium 3.6 3.5 - 5.5 mmol/L LAB CHEMISTRY METHOD 02/09/2024 9:41 PM EST [facility] Blood Venous blood specimen / Unknown Venipuncture / Unknown 02/09/2024 8:45 PM EST 02/09/2024 9:24 PM EST Rob Desir MD LAB BLOOD ORDERABLES Final Resul t Performing Organization Address [facility] Co de Phone Number [facility] [address] [place] [address], [place] [phone] * Rad Onc Msq Treatment Summary (02/09/2024 4:12 PM EST) [facility] Treatment Site Pelvis/Anus MOS AIQ RADIATION ONCOLOGY Course Number 1 MOSAIQ RADIATION ONCOLOGY Prescribed Fractional Dose 180 cGray MOSAIQ RADIATION ONCOLOGY Prescribed Total Dose 5,400 cGray MOSAIQ RADIATION ONCOLOGY Actual Fractions Delivered 1 MOSAIQ RADIATION ONCOLOGY Prescription Pattern Comment Empty Colostomy Bag Pre TX. custom bolus, see plan MOSAIQ RADIATION ONCOLOGY Actual Session Delivered Dose 180 cGray MOSAIQ RADIATION ONCOLOGY Actual Total Dose 180 cGray MOSAIQ RADIATION ONCOLOGY Prescribed Technique 4 ARC VMAT MOSAIQ RADIATION ONCOLOGY Elapsed Days 0 MOSAIQ RADIATION ONCOLOGY Start Date 02/09/2024 MOSAIQ RADIATION ONCOLOGY Last Date 02/09/2024 MOSAIQ RADIATION ONCOLOGY Prescribed Number of Fractions 30 MOSAIQ RADIATION ONCOLOGY 02/09/2024 4:12 PM EST Physician Radiation Oncology MD RADIATION ONCOLO GY ORDERABLES Final Result MOSAIQ RADIATION ONCOLOGY * MRSA molecular study (02/09/2024 4:07 AM EST) [facility] MRSA Screen PCR Not Detected Not Detected LAB MICROBIOLOGY METHOD 02/09/2024 9:13 AM EST [facility] Swab Both anterior nares / Unknown Non-blood Collection / Unknown 02/09/2024 4:07 AM EST 02/09/2024 4:48 AM EST Maria Luisa [facility] LAB MICROBIOLOGY - GENERAL ORDE DARCI Final Result [facility] [address] [place] [address], [place] [phone] * (ABNORMAL) Lactate (02/08/2024 11:43 PM EST) Only the most recent of2 resultswithin the time period is included. [facility] Lactate 2.8(H) 0.4 - 2.0 mmol/L LAB CHEMISTRY METHOD 02/09/2024 1:29 AM EST [facility] Blood Venous blood specimen / Unknown Venipuncture / Unknown 02/08/2024 11:43 PM EST 02/09/2024 12:55 AM EST Maria Luisa [facility] LAB BLOOD ORDERABLES Final Resu lt Performing Organization Address [facility]/ZIP Co de Phone Number [facility] [address] [place] [address], * (ABNORMAL) Parathyroid hormone related protein (02/08/2024 6:27 AM EST) [facility] PTH-related Protein (PTHrP) 30(H) 11 - 20 pg/mL 02/17/2024 1:42 AM EST [facility] Comment: This is a C-terminal PTH-RP assay. PTH-RP is useful in the differential diagnosis of hypercalcemia and levels may be elevated in patients with tumor-associated hypercalcemia. Elevated results may also be observed in patients with renal disease. This test was developed and its analytical performance characteristics have been determined by [facility]. It has not been cleared or approved by FDA. This assay has been validated pursuant to the CLIA regulations and is used for clinical purposes. Test Performed at: [facility] [address] ??[id number] ? I Jacob AVILEZ, PhD, JIMMIE Blood Venous blood specimen / Unknown Venipuncture / Unknown 02/08/2024 6:27 AM EST 02/08/2024 6:58 AM EST Xavi Lozada MD LAB BLOOD ORDERABLES Final R esult [facility] [address] [place] [address] * (ABNORMAL) Manual differential (02/07/2024 4:23 AM EST) Only the most recent of2 resultswithin the time period is included. Neutrophils % 76.0 % LAB HEMETOLOGY METHOD 02/07/2024 5:[address] [facility] Bands % 1.0 % LAB HEMETOLOGY METHOD 02/07/2024 5:[address] [facility] Lymphocytes % 9.0 % LAB HEMETOLOGY METHOD 02/07/2024 5:[address] [facility] Monocytes % 10.0 % LAB HEMETOLOGY METHOD 02/07/2024 5:[address] [facility] Eosinophils % 2.0 % LAB HEMETOLOGY METHOD 02/07/2024 5:[address] [facility] Basophils % 2.0 % LAB HEMETOLOGY METHOD 02/07/2024 5:[address] [facility] Neutrophils Absolute Manual 10.64(H) 1.50 - 7.00 K/mcL LAB HEMETOLOGY METHOD 02/07/2024 5:[address] [facility] Bands Absolute Manual 0.14(H) 0.00 - 0.00 K/mcL LAB HEMETOLOGY METHOD 02/07/2024 5:[address] [facility] Lymphocytes Absolute 1.26 1.00 - 5.00 K/mcL LAB HEMETOLOGY METHOD 02/07/2024 5:[address] [facility] Monocytes Absolute Manual 1.40(H) 0.20 - 1.00 K/mcL LAB HEMETOLOGY METHOD 02/07/2024 5:[address] [facility] Eosinophils Absolute Manual 0.28 0.00 - 0.50 K/mcL LAB HEMETOLOGY METHOD 02/07/2024 5:[address] [facility] Basophils Absolute Manual 0.28(H) 0.00 - 0.20 K/mcL LAB HEMETOLOGY METHOD 02/07/2024 5:[address] [facility] Rbc Morphology Consistent with indices Consistent with indices, Normal for [place] LAB HEMETOLOGY METHOD 02/07/2024 5:38 AM EST [facility] Platelet Morphology - WAM Normal Normal LAB HEMETOLOGY METHOD 02/07/2024 5:38 AM EST [facility] Blood Venous blood specimen / Unknown Venipuncture / Unknown 02/07/2024 4:23 AM EST 02/07/2024 4:36 AM EST us Xavi Lozada MD LAB BLOOD ORDERABLES Final R esult [facility] [address] [place] [address], [place] [phone] * (ABNORMAL) Parathyroid hormone intact (02/07/2024 4:23 AM EST) PTH <6.3(L) 18.5 - 88.0 pcg/mL LAB CHEMISTRY METHOD 02/07/2024 1:38 PM EST [facility] Blood Venous blood specimen / Unknown Venipuncture / Unknown 02/07/2024 4:23 AM EST 02/07/2024 4:37 AM EST us Xavi Lozada MD LAB BLOOD ORDERABLES Final R esult Performing Organization Address City/[facility]/ZIP Co de Phone Number [facility] [address] [place] [address], [place] [phone] * (ABNORMAL) Hepatic function panel (02/07/2024 4:23 AM EST) Total Protein 4.6(L) 6.0 - 8.0 g/dL LAB CHEMISTRY METHOD 02/07/2024 5:13 AM EST [facility] Albumin 2.3(L) 3.2 - 5.0 g/dL LAB CHEMISTRY METHOD 02/07/2024 5:13 AM EST [facility] Total Bilirubin 0.7 0.0 - 1.4 mg/dL LAB CHEMISTRY METHOD 02/07/2024 5:[address] [facility] Bilirubin, Direct 0.2 0.0 - 0.3 mg/dL LAB CHEMISTRY METHOD 02/07/2024 5:[address] [facility] Bilirubin, Indirect 0.5 0.0 - 1.1 mg/dL LAB CHEMISTRY METHOD 02/07/2024 5:[address] [facility] ALT (SGPT) 9(L) 10 - 60 unit/L LAB CHEMISTRY METHOD 02/07/2024 5:[address] [facility] AST (SGOT) 9(L) 10 - 42 unit/L LAB CHEMISTRY METHOD 02/07/2024 5:[address] [facility] Alkaline Phosphatase 63 42 - 121 unit/L LAB CHEMISTRY METHOD 02/07/2024 5:[address] [facility] Blood Venous blood specimen / Unknown Venipuncture / Unknown 02/07/2024 4:23 AM EST 02/07/2024 4:37 AM EST Xavi Lozada MD LAB BLOOD ORDERABLES Final R esult Performing Organization Address City/[facility]/ZIP Co de Phone Number [facility] [address] [place] [address], [place] [phone] * Sodium, urine, random (02/06/2024 6:44 PM EST) Sodium, Ur 13 mmol/L LAB CHEMISTRY METHOD 02/06/2024 9:05 PM EST [facility] Urine Urine specimen from urethra / Unknown Non-blood Collection / Unknown 02/06/2024 6:44 PM EST 02/06/2024 8:51 PM EST Shadi [facility] LAB URINE ORDERABLES Final Res ult [facility] [address] [place] [address], [place] [phone] * (ABNORMAL) Osmolality, urine (02/06/2024 6:44 PM EST) Pathologist [facility] Osmolality, Urine 236(L) 300 - 1,300 mOsm/kg LAB CHEMISTRY METHOD 02/06/2024 9:08 PM EST [facility] Urine Urine specimen obtained by clean catch procedure / Unknown Non-blood Collection / Unknown 02/06/2024 6:44 PM EST 02/06/2024 8:51 PM EST Shadi [facility] LAB URINE ORDERABLES Final Res ult [facility] [address] [place] [address], [place] [phone] * Sodium (02/06/2024 10:26 AM EST) [facility] Sodium 135 133 - 145 mmol/L LAB CHEMISTRY METHOD 02/06/2024 11:31 AM EST [facility] Blood Venous blood specimen / Unknown Venipuncture / Unknown 02/06/2024 10:26 AM EST 02/06/2024 11:05 AM EST Shadi [facility] LAB BLOOD ORDERABLES Final Res ult [facility] [address] [place] [address], [place] [phone] * Thyroid stimulating hormone with reflex to free t4 and free t3 (02/06/2024 4:35 AM EST) Pathologist [facility] TSH 0.88 0.40 - 4.00 mcIU/mL LAB CHEMISTRY METHOD 02/06/2024 6:33 AM EST [facility] Blood Venous blood specimen / Unknown Venipuncture / Unknown 02/06/2024 4:35 AM EST 02/06/2024 5:41 AM EST us Shadi [facility] LAB BLOOD ORDERABLES Final Res ult Performing Organization Address [facility]/ZIP Co de Phone Number [facility] [address] [place] [address], [place] [phone] * Cortisol (02/06/2024 4:35 AM EST) Cortisol 13.0 mcg/dL LAB CHEMISTRY METHOD 02/06/2024 6:33 AM EST [facility] Blood Venous blood specimen / Unknown Venipuncture / Unknown 02/06/2024 4:35 AM EST 02/06/2024 5:41 AM EST Narrative [facility] - 02/06/2024 6:33 AM EST CORTISOL REFERENCE RANGE ?? 8 AM SPEC: ??5.0-23.0 mcg/dL ?? 4 PM SPEC: ??3.0-16.0 mcg/dL ?? 8 PM SPEC: ??<5.0 mcg/dL us Shadi [facility] LAB BLOOD ORDERABLES Final Res ult Performing Organization Address [facility]/ZIP Co de Phone Number [facility] [address] [place] [address], [place] [phone] * (ABNORMAL) Serum albumin (02/06/2024 4:35 AM EST) Albumin 2.5(L) 3.2 - 5.0 g/dL LAB CHEMISTRY METHOD 02/06/2024 6:20 AM EST [facility] Blood Venous blood specimen / Unknown Venipuncture / Unknown 02/06/2024 4:35 AM EST 02/06/2024 5:41 AM EST us Shadi [facility] LAB BLOOD ORDERABLES Final Res ult [facility] [address] [place] [address], [place] [phone] * (ABNORMAL) POCT Glucose, blood (02/05/2024 11:17 PM EST) Glucose POCT 115(H) 70 - 100 mg/dL 02/05/2024 11:18 PM EST [facility] Blood Capillary blood specimen / Unknown 02/05/2024 11:17 PM EST 02/05/2024 11:19 PM EST Polo Lugo MD LAB POINT OF CARE TE ST DOCKED DEVICE UNSOLICITED RESULTS Final Result [facility] [address] [place] [address], [place] [phone] * Culture genital (02/05/2024 9:53 PM EST) Culture, Genital No yeast, Beta Strep group B, Neisseria gonorrhoeae, Listeria, Gardnerella vaginalis, or other predominant potentially significant pathogens noted. 02/08/2024 11:11 AM EST [facility] Vaginal Fluid Vaginal structure / Unknown Non-blood Collection / Unknown 02/05/2024 9:53 PM EST 02/05/2024 10:43 PM EST Narrative [facility] - 02/08/2024 11:11 AM EST Heavy growth of gram negative bacilli, may be indicative of uti us Andie [facility] LAB MICROBIOLOGY - GENERAL OR DERABLES Final Result [facility] [address] [place] [address], [place] [phone] * XR Chest 2 Views (02/05/2024 8:58 PM EST) Anatomical Region Laterality Modality Body Radiographic Cesia ging 02/06/2024 7:48 AM EST Impressions 02/06/2024 8:01 AM EST No acute findings. ??Superior mediastinal fullness could represent a mediastinal mass or lymphadenopathy. -------- FINAL REPORT -------- Dictated By: Arsh Hercules Dictated Date: 02/06/2024 07:48 ET Assigned Physician: Arsh Hercules Reviewed and Electronically Signed By: Arsh Hercules Signed Date: 02/06/2024 08:01 ET Workstation ID: [id number] Transcribed By: Self Edit Transcribed Date: 02/06/2024 07:48 ET Narrative 02/06/2024 8:01 AM EST PA and lateral views of the chest dated 02/05/2024. HISTORY: weakness. COMPARISON: None. FINDINGS: Right-sided single-lumen port with the catheter tip in the lower SVC. ??Lungs are mildly hypoventilatory but clear. ??No pleural effusion, pulmonary edema, or pneumothorax. ??There is soft tissue fullness of the superior mediastinum. ??This could be secondary prominence of the great vessels but cannot exclude a superior mediastinal mass/adenopathy in this patient with a malignancy history. Procedure Note Arsh Hercules MD - 02/06/2024 PA and lateral views of the chest dated 02/05/2024. HISTORY: weakness. COMPARISON: None. FINDINGS: Right-sided single-lumen port with the catheter tip in the lower SVC.Lungs are mildly hypoventilatory but clear. No pleural effusion,pulmonary edema, or pneumothorax. There is soft tissue fullness of thesuperior mediastinum. This could be secondary prominence of the greatvessels but cannot exclude a superior mediastinal mass/adenopathy in thispatient with a malignancy history. IMPRESSION: No acute findings. Superior mediastinal fullness could represent amediastinal mass or lymphadenopathy. -------- FINAL REPORT -------- Dictated By: Arsh Hercules Dictated Date: 02/06/2024 07:48 ET Assigned Physician: Arsh Hercules Reviewed and Electronically Signed By: Arsh Hercules Signed Date: 02/06/2024 08:01 ET Workstation ID: [id number] Transcribed By: Self Edit Transcribed Date: 02/06/2024 07:48 ET Ismael Eaton DO IMG XR PROCEDURES Final Result * CT Cervical Spine wo Contrast (02/05/2024 5:11 PM EST) Anatomical Region Laterality Modality Spine, C-spine Computed Tomogra phy 02/05/2024 5:36 PM EST Impressions 02/05/2024 5:36 PM EST Impression: No acute findings. This document has been electronically signed by: Danielle Thompson MD on 02/05/2024 17:36:03 Narrative 02/05/2024 5:[address] cervical spine without contrast Comparison: None Findings: Normal alignment. No fracture. No severe spinal canal stenosis. No epidural hematoma. Normal thickness of the prevertebral soft tissues. The lung apices are clear. Procedure Note Danielle Basilio MD - 02/05/2024 CT cervical spine without contrast Comparison: None Findings: Normal alignment. No fracture. No severe spinal canal stenosis. No epidural hematoma. Normal thickness of the prevertebral soft tissues. The lung apices are clear. IMPRESSION: Impression: No acute findings. This document has been electronically signed by: Danielle Thompson MD on 02/05/2024 17:36:03 Ismael Eaton DO IMG CT PROCEDURES Final Result * CT Head wo Contrast (02/05/2024 5:11 PM EST) Anatomical Region Laterality Modality Head and Neck Computed Tomogra phy 02/05/2024 5:31 PM EST Impressions 02/05/2024 5:31 PM EST Impression: No acute findings. This document has been electronically signed by: Danielle Thompson MD on 02/05/2024 17:31:39 Narrative 02/05/2024 5:[address] head without contrast Comparison: None Findings: No acute hemorrhage. Pineal gland cyst measuring 6 mm. No hydrocephalus, mass-effect or herniation. Carranza-white differentiation is maintained. There is patchy hypoattenuation of the periventricular and deep white matter, which is most likely the sequela of mild chronic small vessel ischemic disease. No acute orbital pathology. No acute soft tissue abnormality. No fracture. The visualized paranasal sinuses are predominantly clear. The mastoid air cells are clear. Procedure Note Danielle Basilio MD - 02/05/2024 CT head without contrast Comparison: None Findings: No acute hemorrhage. Pineal gland cyst measuring 6 mm. No hydrocephalus, mass-effect or herniation. Carranza-white differentiation is maintained.There is patchy hypoattenuation of the periventricular and deep white matter, which is most likely the sequela of mild chronic small vessel ischemic disease. No acute orbital pathology. No acute soft tissue abnormality. Nofracture. The visualized paranasal sinuses are predominantly clear. The mastoidair cells are clear. IMPRESSION: Impression: No acute findings. This document has been electronically signed by: Danielle Thompson MD on 02/05/2024 17:31:39 us Ismael Eaton DO IMG CT PROCEDURES Final Result * (ABNORMAL) Alanine aminotransferase (02/05/2024 4:40 PM EST) ALT (SGPT) 9(L) 10 - 60 unit/L LAB CHEMISTRY METHOD 02/05/2024 6:05 PM EST [facility] Blood Venous blood specimen / Unknown Venipuncture / Unknown 02/05/2024 4:40 PM EST 02/05/2024 5:39 PM EST Ismael Eaton DO LAB BLOOD ORDERABLES Final Res ult [facility] [address] [place] [address], [place] [phone] * Aspartate aminotransferase (02/05/2024 4:40 PM EST) AST (SGOT) 11 10 - 42 unit/L LAB CHEMISTRY METHOD 02/05/2024 6:05 PM EST [facility] Blood Venous blood specimen / Unknown Venipuncture / Unknown 02/05/2024 4:40 PM EST 02/05/2024 5:39 PM EST us Ismael Eaton DO LAB BLOOD ORDERABLES Final Res ult Performing Organization Address [facility] Co de Phone Number [facility] [address] [place] [address], [place] [phone] * Alkaline phosphatase (02/05/2024 4:40 PM EST) [facility] Alkaline Phosphatase 117 42 - 121 unit/L LAB CHEMISTRY METHOD 02/05/2024 6:05 PM EST [facility] Blood Venous blood specimen / Unknown Venipuncture / Unknown 02/05/2024 4:40 PM EST 02/05/2024 5:39 PM EST us Ismael Eaton DO LAB BLOOD ORDERABLES Final Res ult Performing Organization Address [facility] de Phone Number [facility] [address] [place] [address], [place] [phone] * (ABNORMAL) Osmolality (02/05/2024 4:40 PM EST) [facility] Osmolality Jeny 259(L) 280 - 300 mOsm/kg LAB CHEMISTRY METHOD 02/05/2024 11:16 PM EST [facility] Blood Venous blood specimen / Unknown Venipuncture / Unknown 02/05/2024 4:40 PM EST 02/05/2024 5:39 PM EST us Shadi [facility] LAB BLOOD ORDERABLES Final Res ult Performing Organization Address [facility] Co de Phone Number [facility] [address] [place] [address], [place] [phone] * Bilirubin, total (02/05/2024 4:40 PM EST) [facility] Total Bilirubin 0.4 0.0 - 1.4 mg/dL LAB CHEMISTRY METHOD 02/05/2024 6:05 PM EST [facility] Blood Venous blood specimen / Unknown Venipuncture / Unknown 02/05/2024 4:40 PM EST 02/05/2024 5:39 PM EST Ismael Eaton DO LAB BLOOD ORDERABLES Final Res ult Performing Organization Address [facility]/ZIP Co de Phone Number [facility] [address] [place] [address], [place] [phone] * HCG qualitative, urine (01/23/2024 9:59 AM EST) Preg Test, Ur Negative Negative 01/23/2024 10:15 AM EST [facility] Urine Urine specimen obtained by clean catch procedure / Unknown Non-blood Collection / Unknown 01/23/2024 9:59 AM EST 01/23/2024 10:04 AM EST Samina Diaz MD LAB URINE ORDERABLES Final R esult Performing Organization Address City/[facility]/ZIP Co de Phone Number [facility] [address] [place] [address], [place] [phone] from Last [address] [place] [address] MEDICARE Member Subscriber Plan / Payer (Ef fective 2023-Present) Name:Yanna Power Relation to Subscriber:Self Name:Yanna Power Payer ID:[id number] Group ID:[id number] Type:Not on file Address: [place] [address] [address] [id number] Advance Directives Documents on File Type Date Recorded 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 Do not modify or discontinue any currently active code status orders. * Full Code - Default Date Activated Date Inactivated Comments 02/05/2024 10:36 PM 02/10/2024 3:11 PM This is o rder is used when code status has not been discussed with the patient, or code status is otherwise unknown/unconfirmed To update the patient's code status, place a code status order. Do not modify or discontinue any currently active code status orders. * Full Code - Default Date Activated Date Inactivated Comments 2023 11:47 AM 2023 7:04 PM This is o rder is used when code status has not been discussed with the patient, or code status is otherwise unknown/unconfirmed To update the patient's code status, place a code status order. Do not modify or discontinue any currently active code status orders. Healthcare Agents on File Name Relationship Healthcare Agent Relationshi p Communication Shaina Morrow Sister Health Care Agent Care Teams Mechatronics Engineer Relationship Specialty Start Date End Date Sneha Li MD [address] [place] [phone] PCP - General 01/23/23
--- OUTSIDE RECORDS SUMMARY | 2024-04-01 16:43 | XMS_ITS | Clinical Summary ---
Author Organization [employer] Address [address] [place] [address] Care Team Providers Care Freight Representative Name Role Phone Sneha Li MD Primary Care Provider [phone] Allergies No known active allergies Medications * This document contains information received from the source organization and may not represent a complete record from that organization. Acetaminophen Extra Strength 500 MG tabletIndicati ons:Pain TAKE 1 TO 2 TABLETS BY MOUTH EVERY 8-12 HOURS NEEDED 40 tablet 1 08/15/19 24 Active risperiDONE (RisperDAL) 4 MG tabletIndicati ons:Chronic psychosis (CMS/HCC) Take 1 tablet by mouth at bedtime. Prescribe by psychiatry 08/02/19 24 Active risperiDONE (RisperDAL) 1 MG tabletIndicati ons:Chronic psychosis (CMS/HCC) Take 1 tablet by mouth 2 times daily. Increased to bid in hospital 09/2023 Prescribe by psychiatry 08/20/19 24 Active LORazepam (Ativan) 0.5 MG tabletIndicati ons:Chronic psychosis (CMS/HCC) Take by mouth 2 times daily. psychiatry Active Fluticasone-Sa lmeterol (Advair Diskus) 500-50 MCG/ACT aerosol powderIndicati ons:Moderate chronic obstructive pulmonary disease (CMS/HCC) Inhale 500 mcg 2 times daily. Discontinue flovent 3 each 10/08/19 24 Active albuterol 108 (90 Base) MCG/ACT inhalerIndicat ions:Moderate chronic obstructive pulmonary disease (CMS/HCC) Inhale 2 puffs every 6 (six) hours if needed for wheezing. 18 g 10/24/19 24 025 Active ammonium lactate (Lac-Hydrin) 12 % lotion APPLY TO SOLES OF FEET AT NIGHT. WEAR SOCKS TO BED. 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 May repeat every 2-3 minutes if needed, alternating nostrils, until medical assistance becomes available. 2 each 01/07/20 24 025 Active nicotine (Nicoderm, Step 1) 21 MG/24HR patchIndicatio ns:Nicotine Dependence Place 1 patch on the skin 1 (one) time each day at the same time. 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 Number of tab increased due to increased need for metastatic cancer. 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 Do not crush, chew, or split. 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 Number of tab increased due to increased need for metastatic cancer. 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 Do not crush, chew, or split. Dose increased 01/07/24 60 tablet 01/30/20 24 025 Discontinued(R eorder (will not trigger notification to Pharmacy)) Active Problems Patient Care Coordination No te Formatting of this note migh t be different from the original. [facility] Supervisor Paint Department: [place], member services number [phone], provider services line, , option 4 they told me Helena Perez is director of home care hospice who work with [facility] phone number . I called that number Fruit Loader Agency: [facility], job analysis manager Shari Heath [phone] Problem Noted Date Diagnosed Date S/P colostomy 11/19/2023 Metastatic squamous cell car cinoma involving anus with unknown primary site 10/24/2023 Overview (03/23/2024): Primary squamous cell carcinoma of anus (CMS/HCC) Staging form: Anus, AJCC V9 Stage 3c (cT4,cN1,cM0) advanced Squamous cell carcinoma of anus, p16+ -physical exam 10/08/23 revealed abnormal lymph node in R groin, -STAT CT 10/23/23 revealed Infiltrative soft tissue mass in the pelvis/presacral area 6.6 x 5.4 x 10.1 cm with invasion of the rectosigmoid colon, cervix and vagina. Possible metastatic disease with a small nodule in the left hemipelvis 1.2 x 1.2 cm, an enlarged right inguinal lymph node 1.9 x1.4 cm and an enlarged right paratracheal lymph node 2.4 x 2.3 cm. 3 mm left upper lobe pulmonary nodule is nonspecific. This is markedly cahnged from CT done 05/2023 when she had appendicitis and no mass noted. -right inguinal lymph node biopsy 10/29/23 showed metastatic poorly differentiated squamous cell carcinoma, IHC showed positivity for CK7, P16, P 40 and P 63. Weak focal GATA3 immuno reactivity, negative for CK20. -Patient underwent sigmoidoscopy on 11/06/2023, large masslike lesion visualized in the anal canal. Lumen could not be visualized and therefore scope could not be advanced any further. Biopsy of this revealed invasive squamous cell carcinoma, moderate to poorly differentiated. -she underwent HALS diverting colostomy and rocha catheter was placed 10/2023, she was discharged home -per oncology note 11/24/23 she will start on chemotherapy for advanced disease with carboplatin and Taxol. MediPort placement will be scheduled. -care transferred by [facility] oncology to [facility] -Seen by Dr. Shayne Brock, general surgery 12/16/2023 for consultation regarding management of locally advanced squamous cell cancer . This was requested by radiation oncology however they deferred to Dr. Pelayo at [facility] as he did the colostomy on her -seen 12/24/23 with Pamela Cooper DO, Hematology/Oncology at [facility]: pet scan which shows involvement of only local lymph nodes. She has large symptomatic bulky disease which would benefit from treatment with radiation along with chemotherapy as per guidelines. She has already been seen by radiation who agrees with the plan. -Recommendation is for concurrent chemotherapy and radiation therapy. Plan for 5FU and mitomycin concurrent with RT -radiation oncologist is Dr. Samina Diaz -12/25/23 seen by [employer] On[employer] Dr Miller :The tumor is quite large and involves several structures in the pelvis and extends into the pelvic and inguinal lymph nodes. MRI demonstrates involvement of the vagina and possibly cervix raising concern that this may be a gynecologic primary. I was not able to complete a gynecologic exam during our visit today due to the patient's refusal because of pelvic pain. She requests examination to be formed under anesthesia. -12/29/23 senior java web developer onc examination under anesthesia with biopsies of cervix, vagina, vulva, and possible cystoscopy and rigid proctoscopy for further evaluation of the extent of malignancy. -coordinate with Dr. Samina Diaz to see if she would be available during the surgery to also assess the tumor and aid with radiation planning. -follow up with heme onc with Talia Blanchard -follow up with senior java web developer onc Paul Yanez -Pain medication sent by PCP Oxycontin 10mg bid with oxycodone 10mg q 4 hr prn breakthrough pain -rx for Boost Chocolate written (pt received strawberry but does not drink it) -rx for diapers due to continued fluid and blood from anus 11/14/23 -request for commode that is shower safe to wash given pain in rectal mass -Oncology note 03/23/[address] Cooper, DO: pt to start concurrent radiation and chemotherapy with 5FU and mitomycin Completed first three weeks of treatment and getting final dose of chemotherapy 03/23/24 (day 1 of 29) Interval/Dose History: VMAT: Anus Treatment Period Technique Fraction Dose Fractions Total Dose Course 1 02/09/2024-03/12/2024 (days elapsed: 32) Pelvis/Anus 02/09/2024-03/12/2024 4 ARC VMAT 180 / 180 cGy 3420 / 5,400 cGy TOTAL PLANNED DOSE: 5400 cGy in 30 fractions CONCURRENT THERAPY: 5-FU and mitomycin, started on 02/12/2024. Med onc Dr. Cooper. Assessment & Plan (11/19/2023 4:54 PM EDT): -On 10/08/23 physical exam reveals 3 cm abnormal lymph node in R groin, STAT CT ordered -10/23/23 CT revealed Infiltrative soft tissue mass in the low pelvis/presacral region measuring 6.6 x 5.4 x 10.1 cm with invasion of the rectosigmoid colon as well as the cervix and vagina. There is extension into the perineum. There is possible metastatic disease with a small nodule in the left hemipelvis measuring 1.2 x 1.2 cm, an enlarged right inguinal lymph node measuring 1.9 x1.4 cm and an enlarged right paratracheal lymph node measuring 2.4 x 2.3 cm. 3 mm left upper lobe pulmonary nodule is nonspecific. This is markedly cahnged from CT done 05/2023 when she had appendicitis and no mass noted. -Core right inguinal lymph node biopsy performed 10/29/23 showed metastatic poorly differentiated squamous cell carcinoma, IHC showed positivity for CK7, P16, P 40 and P 63. Weak focal GATA3 immuno reactivity, negative for CK20. -hospitalized for pain management at [facility] 10/2023 - awaiting outpatient PET-CT . Depending on origin of cancer, recommendations about systemic therapy, most likely palliative chemotherapy will be made. -Patient underwent sigmoidoscopy on 11/06/2023, large masslike lesion visualized in the anal canal. Lumen could not be visualized and therefore scope could not be advanced any further. Biopsy of this revealed invasive squamous cell carcinoma, moderate to poorly differentiated. -she was discharged and seen in oncology office 11/11/23 when she was referred to the ER due to no bowel movement in a week in spite of aggressive laxative regimen. She has bowel obstruction secondary to anorectal cancer and needs diverting colostomy. -MRI pelvis done in ER 11/11/23 with and without contrast and surgical consultation, MRI abdomin increase size of mass -she underwent HALS diverting colostomy and rocha catheter was placed 10/2023, she was discharged home -Recommendations about systemic therapy will be made after she undergoes PET scan. -She is scheduled for PET-CT next FridayNovember 17 -Pain medication sent by PCP Oxycontin 10mg bid with oxycodone 10mg q 4 hr prn breakthrough pain -rx for Boost Chocolate written (pt received strawberry but does not drink it) -rx for diapers due to continued fluid and blood from anus 11/14/23 -will call [facility] and ask what colostomy supplies are needed and that pt needs services [facility] to help her with colostomy 11/19/23 -will continue to call weekly -she is aware of her oncology appointment 11/21/23 and has transportation -sister reports oncology working on getting faster PET scan trying to be arranged at [facility] and they should hear from them. Assessment & Plan (10/24/2023 3:54 PM EDT): -On 10/08/23 physical exam reveals 3 cm abnormal lymph node in R groin -10/23/23 ABD/PELV CT IMPRESSION: Infiltrative soft tissue mass in the low pelvis/presacral region measuring 6.6 x 5.4 x 10.1 cm with invasion of the rectosigmoid colon as well as the cervix and vagina. There is extension into the perineum. Small free fluid and inflammatory changes in the presacral space. This most likely represents neoplasm. PET/CT is recommended. There is possible metastatic disease with a small nodule in the left hemipelvis measuring 1.2 x 1.2 cm, an enlarged right inguinal lymph node measuring 1.9 x1.4 cm and an enlarged right paratracheal lymph node measuring 2.4 x 2.3 cm. 3 mm left upper lobe pulmonary nodule is nonspecific. Hypervascular left hepatic lesion measuring 2.3 x 2.7 cm may be further characterized with MRI. This is markedly cahnged from CT done 05/2023, (see HPI) I spoke with hematology office who will be ordering PET scan and biopsy -I explained findings to patient and her family -Plan to have pt get PET scan, biopsy and will prescribe Ensure due to failure to thrive 10/24/23. Adult failure to thrive 10/24/2023 Overview (10/24/2023): -Will prescribe Ensure 10/24/23 Assessment & Plan (10/24/2023 2:25 PM EDT): -Will prescribe Ensure 10/24/23 Other specified anemias 10/08/2023 Overview (10/08/2023): Lab Results Component Value Date HGB 10.4 (L) 10/08/2023 HGB 13.7 01/22/2023 Pt seeing GI and heme Major depressive disorder, r ecurrent, severe with psychotic symptoms 09/03/2023 Overview (10/07/2023): See diagnosis of psychosis. Assessment & Plan (10/08/2023 9:27 AM EDT): See diagnosis of psychosis Schizophrenia, unspecified type 06/25/2023 Other hemorrhoids 06/25/2023 Other constipation 06/25/2023 Cardiac risk counseling 06/04/2023 Overview (10/08/2023): Calculated 10/08/23: Intermediate Risk The 10-year ASCVD risk score (Vincent WILLIAMSON, et al., 2019) is: 2.7% Values used to calculate the score: Age: 52 years Sex: Female Is Non- : No Diabetic: No Tobacco smoker: Yes Systolic Blood Pressure: 99 mmHg Is BP treated: No HDL Cholesterol: 29 mg/dL Total Cholesterol: 132 mg/dL LDL -Tobacco cessation: encouraged -Statin therapy: consider if LDL > 100 with shared decision making -Importance of moderate physical activity and nutrition interventions discussed Class 1 obesity 01/22/2023 01/22/2023 Status post laparoscopic cholecystectomy 023 Chronic psychosis 07/31/2022 Overview (10/08/2023): Dx schizoaffective disorder. Pt was admitted for psychiatric admission on 03/24/2019. ER visit for hallucination 01/14/2021. Hospitalization for hallucinations 09/2023.Reports command hallucinations under control with current med regimen. - Continue q3 mo f/u with Dr. Peterson. -Her caseworkr at [facility] is Matt #[phone] -Continue with therapist Cara Ramsay. -Prescribed 0.5 mg Lorazepam, BID on recent admission to [facility] on 08/27/23 and Risperidone was increased to 4 mg, daily -Was prescribed Hydroxyzine as well, but per pt psychiatrist stopped after discharge. -Follows up with psychiatrist regularly Assessment & Plan (10/08/2023 9:43 AM EDT): Dx schizoaffective disorder. Pt was admitted for psychiatric admission on 03/24/2019. ER visit for hallucination 01/14/2021. Hospitalization for hallucinations 09/2023.Reports command hallucinations under control with current med regimen. - Continue q3 mo f/u with Dr. Peterson. -Her caseworkr at [facility] is Matt #[phone] -Continue with therapist Cara Ramsay. -Prescribed 0.5 mg Lorazepam, BID on recent admission to [facility] on 08/27/23 and Risperidone was increased to 4 mg, daily -Was prescribed Hydroxyzine as well, but per pt psychiatrist stopped after discharge. -Follows up with psychiatrist regularly Assessment & Plan (01/20/2023 10:27 AM EST): Dx schizoaffective disorder. Reports command hallucinations under control with current med regimen, Risperidone 4 mg at night and 1mg in the morning ,well as diazepam. Continue q3 mo f/u with Dr. ePterson. Pt was admitted for psychiatric admission on 03/24/2019 was discharged on 04/08/2019.Last ER visit for hallucination 01/14/2021. Her caseworkr at [facility] is Matt #[phone] Continue with therapist Cara Ramsay. Assessment & Plan (07/31/2022 11:35 AM EDT): Dx schizoaffective disorder. Reports command hallucinations under control with current med regimen, Risperidone 4 mg at night and 1mg in the morning ,well as diazepam. Continue q3 mo f/u with Dr. Peterson. Pt was admitted for psychiatric admission on 03/24/2019 was discharged on 04/08/2019.Last ER visit for hallucination 01/14/2021. Her caseworkr at [facility] is Matt #[phone] Continue with therapist Cara Ramsay. Cigarette nicotine dependence 07/31/2022 Overview (10/08/2023): In precontemplative stages of quitting. Declines medication. -Cigg/day: 20 -Age started: 17 -Total years smokin -Pack year history: 37 Encouraged smoking cessation resources such as pharmacomtherapy, [facility] smoking cessation group, and [facility] pharmacy smoking cessation clinic. She will try patches and lozenge -LDCT: 11/08/22 revealed enlarged right pretracheal node 2.2 cm, otherwise unremarkable, referred to ENT but soonest apt is 1 year out from study, referred to oncology 06/25/23 -reordered LDCT 10/08/23 Assessment & Plan (10/08/2023 9:31 AM EDT): In precontemplative stages of quitting. Declines medication. -Cigg/day: 20 -Age started: 17 -Total years smokin -Pack year history: 37 Encouraged smoking cessation resources such as pharmacomtherapy, [facility] smoking cessation group, and [facility] pharmacy smoking cessation clinic. She will try patches and lozenge -LDCT: 11/08/22 revealed enlarged right pretracheal node 2.2 cm, otherwise unremarkable, referred to ENT but soonest apt is 1 year out from study, referred to oncology 06/25/23 -reordered LDCT 10/08/23 Assessment & Plan (06/25/2023 12:00 PM EDT): In precontemplative stages of quitting. Declines medication. -Cigg/day: 20 -Age started: 17 -Total years smokin -Pack year history: 37 Encouraged smoking cessation resources such as pharmacomtherapy, [facility] smoking cessation group, and [facility] pharmacy smoking cessation clinic. She will try patches and lozenge -LDCT: 11/09/23 revealed enlarged right pretracheal node 2.2 cm, otherwise unremarkable, referred to ENT but coonest apt is 1 year out from study, will refer to oncology 06/25/23 Assessment & Plan (04/11/2023 11:41 AM EST): In precontemplative stages of quitting. Declines medication. -Cigg/day: 20 -Age started: 17 -Total years smokin -Pack year history: 37 Encouraged smoking cessation resources such as pharmacomtherapy, [facility] smoking cessation group, and [facility] pharmacy smoking cessation clinic -LDCT: 11/09/23 revealed enlarged right pretracheal node 2.2 cm, otherwise unremarkable Assessment & Plan (07/31/2022 11:33 AM EDT): Pt does not like patches. -She will ask for mint flavored gum, she does not like the cinnamon. Bilateral deafness 07/31/2022 Overview (10/07/2023): -Has services with [employer] -Needs ASL interpreters for all speciality appointments. Assessment & Plan (10/24/2023 1:52 PM EDT): -Has services with [employer] -Needs ASL interpreters for all speciality appointments. Assessment & Plan (10/08/2023 9:39 AM EDT): -Has services with [employer] -Needs ASL interpreters for all speciality appointments. Assessment & Plan (06/25/2023 10:28 AM EDT): -Has services with [employer] -Needs ASL interpreters for all speciality appointments. Assessment & Plan (01/20/2023 10:25 AM EST): Has services with [employer] Needs ASL interpreters for all speciality appointments. Assessment & Plan (07/31/2022 9:22 AM EDT): Has services with [employer]. Needs ASL interpreters for all speciality appointments. Gastroesophageal reflux disease without esophagi tis 07/31/2022 Dyslipidemia 07/31/2022 Overview (10/07/2023): Lab Results Component Value Date TRIG 130 01/22/2023 CHOL 132 01/22/2023 LDLCHOLCAL 77 01/22/2023 HDL 29 (L) 01/22/2023 -continue lifestyle modifications Assessment & Plan (10/08/2023 9:30 AM EDT): Lab Results Component Value Date TRIG 130 01/22/2023 CHOL 132 01/22/2023 LDLCHOLCAL 77 01/22/2023 HDL 29 (L) 01/22/2023 -continue lifestyle modifications Assessment & Plan (06/25/2023 9:58 AM EDT): Lab Results Component Value Date TRIG 130 01/22/2023 CHOL 132 01/22/2023 LDLCHOLCAL 77 01/22/2023 HDL 29 (L) 01/22/2023 -continue lifestyle modifications Knee pain 07/31/2022 Overview (07/31/2022): Referral to PT done 07/31/2022. Assessment & Plan (07/31/2022 11:30 AM EDT): Referral to PT done 07/31/2022. Low vitamin D level 07/31/2022 Overview (10/08/2023): Lab Results Component Value Date [id number] 10.6 (L) 01/22/2023 -vit D 50,000 weekly started 01/22/2023 -ordered Vitamin D level ordered 10/08/23 Assessment & Plan (10/08/2023 9:30 AM EDT): Lab Results Component Value Date [id number] 10.6 (L) 01/22/2023 -vit D 50,000 weekly started 01/22/2023 -ordered Vitamin D level ordered 10/08/23 Preventative health care 07/31/2022 Overview (10/07/2023): -next physical exam due after 01/23/2024. -[facility] in [place], last seen May 2022, will request note 07/31/2022. -[facility] -health care proxy paperwork filed 06/25/23 Assessment & Plan (10/08/2023 9:44 AM EDT): -next physical exam due after 01/23/2024. -followed by [facility] in [place], last seen May 2022, will request note 07/31/2022. -[facility] -health care proxy paperwork filed 06/25/23 Assessment & Plan (06/25/2023 10:29 AM EDT): -next physical exam due after 01/23/2024. -She goes to [facility] in [place], last seen May 2022, will request note 07/31/2022. -[employer] -health care proxy paperwork filed 06/25/23 Assessment & Plan (01/22/2023 11:44 AM EST): Next PE due after 01/23/2024 -She goes to [facility] in [place], last seen May 2022, will request note 07/31/2022. Assessment & Plan (07/31/2022 11:29 AM EDT): Next PE due after 08/01/2023. -She goes to [facility] in [place], last seen May 2022, will request note 07/31/2022. Colon cancer screening 07/31/2022 Overview (10/08/2023): -referral placed 03/2021 and to [facility] 08/01/22 - pt has appointment 07/15/23 at 11:30am it will be at [address] [place] [address] in [place] ASL interpretation services requested. Ollie pt's careers counsellor is aware -Saw GI and has colonoscopy scheduled for 01/13/24 -I called over to [facility] and will send new labs revealing new anemia. Will fax to [phone]. Assessment & Plan (10/08/2023 1:48 PM EDT): -referral placed 03/2021 and to [facility] 08/01/22 - pt has appointment 07/15/23 at 11:30am it will be at [address] [facility] in [facility] interpretation services requested. Ollie pt's careers counsellor is aware -Saw GI and has colonoscopy scheduled for 01/13/24 -I called over to [facility] and will send new labs revealing new anemia. Will fax to [phone]. Assessment & Plan (07/31/2022 11:29 AM EDT): Referred 04/02/2021. Subareolar mass of left breast 07/31/2022 Overview (04/25/2023): Patient given empiric abx for periductal mastitis 04/11/2021 cefadroxil 500mg bid x 7 days -US 04/11/2021 ASSESSMENT: BI-RADS 3: Probably Benign recommended Ultrasound- guided aspiration left breast. If lesion will not aspirate, then conversion to core sampling at same appointment. -US done 01/31/22 showed no evidence of malignancy and no residual fluid collection. -Mammo done 07/24/2022 showed BIRADs 2, next due 1 year. -mammogram 03/03/23 1.1 cmcircumscribed oval isodense mass in upper slightly medial right breast is stable to multiple pior studies and considered benign (compared to 05/23/20,04/11/21 and 07/24/22). The questioned mass in the upper inner left breast also appears stable and is considered benign. Assessment & Plan (01/20/2023 10:24 AM EST): Patient given empiric abx for periductal mastitis 04/11/2021 cefadroxil 500mg bid x 7 days -US 04/11/2021 ASSESSMENT: BI-RADS 3: Probably Benign recommended Ultrasound- guided aspiration left breast. If lesion will not aspirate, then conversion to core sampling at same appointment. -US done 01/31/22 showed no evidence of malignancy and no residual fluid collection. -Mammo done 07/24/2022 showed BIRADs 2, next due 1 year. Assessment & Plan (07/31/2022 11:32 AM EDT): Patient given empiric abx for periductal mastitis 04/11/2021 cefadroxil 500mg bid x 7 days -US 04/11/2021 ASSESSMENT: BI-RADS 3: Probably Benign recommended Ultrasound- guided aspiration left breast. If lesion will not aspirate, then conversion to core sampling at same appointment. -US done 01/31/22 showed no evidence of malignancy and no residual fluid collection. -Mammo done 07/24/2022 showed BIRADs 2, next due 1 year. Leukocytosis 03/28/2021 Overview (10/08/2023): Pt notes white count 15-23 k with an increase in lymphocytes. Chronic smoker. No prednisone use. Initially seen by oncology 04/20/2019, last visit 08/2019 This is a 48-year-old woman with chronic leukocytosis with slight increase in lymphocytes. Review of peripheral smear shows increase in mature appearing lymphocytes and some activated/atypical lymphocytes. No immature or blast forms seen. Blood for flow cytometry showed B-cell lymphoid expansion with no definite clonal lymphoid population detected. Polyclonal B-cell lymphocytosis. LDH mildly elevated at 244, serum protein electrophoresis showed a faint M spike. Beta 2 microglobulin mildly elevated at 2.59 mg/L. Blood work is stable. -Seen by oncology 08/2022, flow cytology ordered and 1 year follow up recommended -Elevated WBC in ED on 08/27/23 WBC 19.1 k/mm3 -ordered CBC 10/08/23 Assessment & Plan (10/08/2023 9:39 AM EDT): Pt notes white count 15-23 k with an increase in lymphocytes. Chronic smoker. No prednisone use. Initially seen by oncology 04/20/2019, last visit 08/2019 This is a 48-year-old woman with chronic leukocytosis with slight increase in lymphocytes. Review of peripheral smear shows increase in mature appearing lymphocytes and some activated/atypical lymphocytes. No immature or blast forms seen. Blood for flow cytometry showed B-cell lymphoid expansion with no definite clonal lymphoid population detected. Polyclonal B-cell lymphocytosis. LDH mildly elevated at 244, serum protein electrophoresis showed a faint M spike. Beta 2 microglobulin mildly elevated at 2.59 mg/L. Blood work is stable. -Seen by oncology 08/2022, flow cytology ordered and 1 year follow up recommended -Elevated WBC in ED on 08/27/23 WBC 19.1 k/mm3 -ordered CBC 10/08/23 Assessment & Plan (01/22/2023 12:32 PM EST): Pt notes white count 15-23 k with an increase in lymphocytes. Chronic smoker. No prednisone use. Initially seen by oncology 04/20/2019, last visit 08/2019 This is a 48-year-old woman with chronic leukocytosis with slight increase in lymphocytes. Review of peripheral smear shows increase in mature appearing lymphocytes and some activated/atypical lymphocytes. No immature or blast forms seen. Blood for flow cytometry showed B-cell lymphoid expansion with no definite clonal lymphoid population detected. Polyclonal B-cell lymphocytosis. LDH mildly elevated at 244, serum protein electrophoresis showed a faint M spike. Beta 2 microglobulin mildly elevated at 2.59 mg/L. Blood work is stable. -Seen by oncology 08/2022, flow cytology ordered and 1 year follow up recommended Assessment & Plan (07/31/2022 11:45 AM EDT): Pt notes white count 15-23 k with an increase in lymphocytes. Chronic smoker. No prednisone use. Initially seen by oncology 04/20/2019, last visit 08/2019 This is a 48-year-old woman with chronic leukocytosis with slight increase in lymphocytes. Review of peripheral smear shows increase in mature appearing lymphocytes and some activated/atypical lymphocytes. No immature or blast forms seen. Blood for flow cytometry showed B-cell lymphoid expansion with no definite clonal lymphoid population detected. Polyclonal B-cell lymphocytosis. LDH mildly elevated at 244, serum protein electrophoresis showed a faint M spike. Beta 2 microglobulin mildly elevated at 2.59 mg/L. Blood work is stable. -Due for oncology follow, referral done 07/31/22. Moderate chronic obstructive pulmonary disease 0 03/28/2021 Overview (07/31/2022): PFTS 10/2018 Moderate obstructive ventilatory defect with significant improvement with bronchodilator therapy. Positive bronchodilator response. -Stop Flovent and start Advair 500 BID 07/31/2022. -Rx albuterol prn -flu vac 12/2018 -pneumovax 12/2018 -schedule for COVID booster -counseled smoking cessation. Assessment & Plan (10/24/2023 2:22 PM EDT): PFTS 10/2018 Moderate obstructive ventilatory defect with significant improvement with bronchodilator therapy. Positive bronchodilator response. -Stop Flovent and start Advair 500 BID 07/31/2022. -Rx albuterol prn -flu vac 12/2018 -pneumovax 12/2018 -schedule for COVID booster -counseled smoking cessation. Assessment & Plan (10/08/2023 9:39 AM EDT): PFTS 10/2018 Moderate obstructive ventilatory defect with significant improvement with bronchodilator therapy. Positive bronchodilator response. -Stop Flovent and start Advair 500 BID 07/31/2022. -Rx albuterol prn -flu vac 12/2018 -pneumovax 12/2018 -schedule for COVID booster -counseled smoking cessation. Assessment & Plan (01/20/2023 10:25 AM EST): PFTS 10/2018 Moderate obstructive ventilatory defect with significant improvement with bronchodilator therapy. Positive bronchodilator response. -Stop Flovent and start Advair 500 BID 07/31/2022. -Rx albuterol prn -flu vac 12/2018 -pneumovax 12/2018 -schedule for COVID booster -counseled smoking cessation Assessment & Plan (07/31/2022 11:07 AM EDT): PFTS 10/2018 Moderate obstructive ventilatory defect with significant improvement with bronchodilator therapy. Positive bronchodilator response. -Stop Flovent and start Advair 07/31/2022. -Rx albuterol prn -flu vac 12/2018 -pneumovax 12/2018 -schedule for COVID booster -counseled smoking cessation. Resolved Problems Problem Noted Date Diagnosed Date Resolved Date History of appendicitis 06/09/2023 08/08/2023 Overview (06/25/2023): Admitted to [facility] 05/27-05/29/23 for appendicitis with 10 cm abscess managed non operatively with IR drain 04/30/23 removed 05/08/23. Returned to ER 05/28/23 with concerns for recurrent appendicitis without evidence of perforation. She was staken to OR for lap appendectomy with drain placement. -discharged with [facility] for SHILPA drain management -follow up June [address] Ashton for evaluation of drain removal and pot op follow up Assessment & Plan (06/25/2023 9:56 AM EDT): Admitted to [facility] 05/27-05/29/23 for appendicitis with 10 cm abscess managed non operatively with IR drain 04/30/23 removed 05/08/23. Returned to ER 05/28/23 with concerns for recurrent appendicitis without evidence of perforation. She was staken to OR for lap appendectomy with drain placement. -discharged with [facility] for SHILPA drain management -follow up June [address] Ashton for evaluation of drain removal and pot op follow up Physical exam 01/22/2023 06/09/2023 Overview (01/22/2023): -Normal growth and development. -Anticipatory guidance discussed. -Preventative care / harm reduction discussed. Assessment & Plan (01/22/2023 11:50 AM EST): -Normal growth and development. -Anticipatory guidance discussed. -Preventative care / harm reduction discussed. 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 ([facility]/HCC) 03/03/2024 Telephone [facility] [address] [place] [phone] Sneha Li MD Durable Medical Equipment (briefs) 02/27/[address] [phone] Norma Boss [place] DME colostomy bags (I faxed the order for DME to [facility].) 02/23/2024 Telephone [facility] [address] [place] [address] [place], [place] Durable Medical Equipment 02/19/2024 Telephone [facility] [address] [place] [phone] [place], [place] Durable Medical Equipment 02/16/[address] [phone] Sneha Li MD 02/16/[address] [address] Channing Solares, CHELI Error (VOID this visit) 01/30/2024 Orders Only [address] [address] Sneha Li MD 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 ([facility]) 01/14/2024 Refill [facility] [address] [place] [phone] Sneha Li MD Cigarette nicotine dependence without complication 01/14/[address] [address] Sneha Li MD Durable Medical Equipment 01/12/[address] [phone] Sneha Li MD Durable Medical Equipment 01/12/[address] [phone] Jessica Arora [place] DME from [facility] 01/07/2024 Orders Only [facility] [address] [place] [address] Sneha Li MD 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) (Primary Dx) 12/31/2023 Refill [facility] [address] [place] [address] Sneha Li MD 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) from Last 3 Months Immunizations Name Administration Dates Next Due Hep A, Adult 10/08/2023,01/22/2023 Hep B, adult 06/25/2023,01/22/2023,07/31/2022 Influenza injectable quadriv alent preservative free 01/22/2023,01/04/2019 Influenza, IIV3, injectable 11/22/2019 Influenza, seasonal, injecta ble, preservative free 10/24/2023 Moderna Covid-19 Vaccine 6+ Bivalent 07/31/2022 Pfizer Covid-19 Vaccine 12+ 06/25/2023 Pneumococcal Conjugate PCV 20 01/22/2023 Pneumococcal Polysaccharide PPSV23 11/22/2019, Tdap 01/04/2019 Social History Tobacco Use Types Packs/Day Years [...] Orientation Straight 12/10/2021 10 :35 AM EDT Last Filed Vital Signs Vital Sign Reading Time Taken Comments Blood Pressure 112/61 10/24/2023 1:43 PM EDT Pulse 125 10/24/2023 1:43 PM EDT Temperature 36.8 ??C (98.2 ??F) 10/24/2023 1:43 PM ED T Respiratory Rate 17 10/24/2023 1:43 PM EDT Oxygen Saturation 97% 10/24/2023 1:43 PM EDT Inhaled Oxygen Concentration - - Weight 53.9 kg (118 lb 12.8 oz) 10/24/2023 1:43 PM EDT Height 157.5 cm (5' 2 ) 10/08/2023 9:16 AM EDT Body Mass Index 21.73 10/08/2023 9:16 AM EDT Plan of Treatment Health Maintenance Due Date Last Done Comments CT Colonography 1972 Dental Prophylaxis 1972 Dental X-Ray: Bitewings 1972 Dental X-Ray: Full Mouth 1972 FIT DNA/Cologuard 1972 FIT 1972 FOBT 1972 Sigmoidoscopy 1972 Alcohol/Substance Use Screening 1984 Zoster Vaccines (1 of 2) 2022 COVID-19 Vaccine ( season) 2023 06/25/2023, 07/31/2022, 03/05/2021, Additional history exists Dental Oral Exam 01/10/2024 07/09/2023 HPV/Cotest 02/20/2024 02/19/2019, 02/19/2019 Pap Smear 02/20/2024 02/19/2019 Depression Screening 10/07/2024 10/08/2023, 10/08/19 Diabetes: Hemoglobin A1C 10/07/2024 10/08/2023, 01/10 SDOH Screening 10/07/2024 10/08/2023 Family Planning (PISQ) 10/23/2024 10/24/2023 Tobacco Screening 12/15/2024 12/16/2023 Mammogram 01/31/2025 08/04/2023, 02/11, 07/24/2022, Additional history exists Lipid Panel 10/07/2028 10/08/2023, 01/10, 06/15/2020 DTaP/Tdap/Td Vaccines (2 - Td or Tdap) 01/04/2029 01/04/2019 Colonoscopy 11/05/2033 11/06/2023 Colorectal Cancer Screening 11/05/2033 RSV Patients and Patients Aged 60 years or older (1 - 1-dose 75+ series) 12/30/2047 Hepatitis C Screening Completed 02/23/2019, 020 Pneumococcal Vaccine: 50+ Years Completed 01/22/2023, 11/22/2019, 01/04/2019 Hepatitis B Vaccines Completed 06/25/2023, 01/22/2023, 07/31/2022 HIV Screening Completed 10/08/2023, 01/22/2023 Hepatitis A Vaccines Completed 10/08/2023, 01/23/20 Influenza Vaccine Completed 10/24/2023, , 11/22/2019, Additional history exists Cervical Cancer Screening Discontinued HIB Vaccines Aged Out No longer eligi ble based on patient's age to complete this topic HPV Vaccines Aged Out No longer eligi ble based on patient's age to complete this topic IPV Vaccines Aged Out No longer eligi ble based on patient's age to complete this topic Meningococcal Vaccine Aged Out No ramón yoly eligible based on patient's age to complete this topic RSV under 20 months Aged Out No longe r eligible based on patient's age to complete this topic Rotavirus Vaccines Aged Out No longer eligible based on patient's age to complete this topic Procedures Procedure Name Priority Date/Time Associated Diagnosis Comments COLONOSCOPY Routine 11/06/2023 HIV 1/2 ANTIGEN/ANTIBODY, FOURTH GENERATION W/RFL Routine 10/08/2023 10:52 AM EDT HEMOGLOBIN A1C Routine 10/08/2023 10:52 AM EDT LIPID PANEL, STANDARD Routine 10/08/2023 10:52 AM EDT BI MAMMOGRAM SCREENING TOMOSYNTHESIS BILATERAL Routine 08/04/2023 3:22 PM EDT PERIODIC ORAL EVALUATION - ESTABLISHED PATIENT Routine 07/09/2023 2:00 PM EDT HEPATITIS C ANTIBODY (EXTERNAL RESULTS ONLY) Routine 02/23/2019 10:52 AM EST ZZZ HISTORICAL HPV E6/E7 RFLX JOSH 16 18/45 Routine 02/19/2019 10:40 AM EST THINPREP PAP AND HPV MRNA E6/E7 Routine 02/19/2019 12:00 AM EST from Last 3 Months or Most Recently Relevant to Health Maintenance Results * (ABNORMAL) Colonoscopy (11/06/2023) Colonoscopy Abnormal( A) Normal Comment:rectal mass Historical Provider HEALTH MAINTENANCE Final Result * HIV-1/2 Antigen and Antibodies, Fourth Generation, with Reflexes (10/08/2023 10:52 AM EDT) HIV AB/AG Nonreactive Nonreactive [facility] Comment:HIV-1 p24 Ag and/or HIV-1/HIV-2 Ab not detected.A test result that is nonreactive does not exclude thepossibility of exposure to or infection with HIV-1 and/orHIV-2. Nonreactive results in this assay for individualswith prior exposure to HIV-1 and/or HIV-2 may be due toantigen and antibody levels that are below the limit ofdetection of this assay.The [employer] HIV Ag/Ab Combo assay result andsupplemental assay results should be interpreted inconjunction with the patient's clinical presentation,history and other laboratory results. If the results areinconsistent with clinical evidence, additional testing issuggested to confirm the result. 10/08/2023 10:5 2 AM EDT 10/08/2023 10:52 AM EDT Sneha Li MD LAB BLOOD ORDERABLES Final Result Performing Organization Address [facility] Co de Phone Number [facility] [address] [place] [phone] * Hemoglobin A1c (10/08/2023 10:52 AM EDT) Hemoglobin A1c 5.7 <6.0 % [facility] Comment:Hemoglobin A1C Refer ence Range Adults: 4.8 - 6.0 % Non diabetic: < 6.0 % Goal: < 7.0 %Additional Action Suggested: > 8.0 %Note: Hemoglobin A1c results are invalid for patients with abnormal amounts of HbF. Blood transfusions may impact the HbA1c concentration in the patient sample. Estimated Average Glucose 117 mg/dL [facility] Comment:eAG = Estimated ave rage glucose which is %A1C expressed asaverage glucose, using the formula of the J2M-NoxjlzsSzbrvdk Glucose study (ADAG), Diabetes Care, Vol.31,#8,Aug. 2007 10/08/2023 10:5 2 AM EDT 10/08/2023 10:52 AM EDT Sneha Li MD LAB BLOOD ORDERABLES Final Result Performing Organization Address [facility] de Phone Number [facility] [address] [place] [phone] * (ABNORMAL) Lipid Panel, Standard (10/08/2023 10:52 AM EDT) Triglycerides 161(H) <150 mg/dL [facility] Comment:Desirable Triglyceri de: less than 150 mg/dLBorderline High Triglyceride 150-199 mg/dLHigh Triglyceride: 200-499 mg/dLVery High Triglyceride: greater than or equal to 5OO mg/dL Cholesterol 97 <200 mg/dL [facility] Comment:Desirable Cholestero l: less than 200 mg/dLBorderline High Cholesterol: 200-239 mg/dLHigh Cholesterol: greater than 239 mg/dL LDL Cholesterol Calculated 40 <100 mg/dL [facility] Comment:Desirable LDL: less than 100 mg/dLNear Optimal/Above Optimal LDL: 110- 129 mg/dLBorderline High LDL: 130-159 mg/dLHigh LDL: 160-189 mg/dLVery High LDL: greater than or equal to 190 mg/dL HDL Cholesterol 25(L) >40 mg/dL [facility] Comment:Desirable HDL: great er than 40 mg/dL Note: This HDL assay may give artificially low results in patients with liver disease. 10/08/2023 10:5 2 AM EDT 10/08/2023 10:52 AM EDT Sneha Li MD LAB BLOOD ORDERABLES Final Result [facility] [address] [place] [phone] * BI Mammogram Screening Tomosynthesis Bilateral (08/04/2023 3:22 PM EDT) Anatomical Region Laterality Modality Breast Bilateral Mammography 08/04/2023 3:22 PM EDT Narrative 08/04/2023 4:49 PM EDT ? [facility] [place] ? [address] ?[place] [address] ? Mammography Report ? Signed ? Patient: Tono,Yanna T ?MR#: [id number] ?? 131 ? : 1970 ?Acct:[id number] ? Age/Sex: 52 / F ?ADM Date: 06/24/24 ? Loc: HO.MAMMO ? Attending Dr: Sneha Li MD ? Ordering Physician: Sneha Li MD ?Results: 2B ?? enign Findings ? Date of Service: 08/04/23 ?Follow Up: 1 Year From Orig ?? inal Mammogram ? Procedure(s): MM tomosynthesis screening BI ?? Accession Number(s): [id number] ? cc: Sneha Li MD ? EXAMINATION: ?? MM SCREENING DIGITAL BREAST TOMOSYNTHESIS, BILATERAL ? CLINICAL INFORMATION: ? Screening. Asymptomatic. ? COMPARISON: ?? Mammography: This study is compared with prior exams dating back to ?? 2019. ? TECHNIQUE: Procedure with a ?? Digital breast tomosynthesis is performed in both the craniocaudal and ?? mediolateral oblique views along with computer-aided detection (CAD). ?? Synthesized 2D images are generated from the tomosynthesis. ? FINDINGS: ?? There are scattered areas of fibroglandular density (ACR BI-RADS breast ?? composition Category b). ? There are no significant masses, abnormal calcifications, or other ?? abnormalities. ? There is a biopsy tissue marker associated with a benign mass in the ?? superior aspect of the right breast. ?? BI-RADS 2 ? MM/MM tomosynthesis screening BI ?? IMPRESSION: ?? No mammographic evidence of malignancy. ? ASSESSMENT: ? BI-RADS BI-RADS 2 - Benign Findings ? RECOMMENDATION: ?? Routine annual mammography screening. ? 1 year F/U ? This examination should not preclude the clinical evaluation of a ?? suspicious palpable abnormality. ? This patient's information was entered into a reminder system with a ?? target due date for their next mammogram. ? Dictated By: ?Nidhi Alonso MD ? Signed By: ?<Electronically signed by Nidhi Alonso MD in OV> ? 08/03/ 1645 ? DD/ 1522 ? TD/TT: ? Printing Technician: ? Procedure Note Donotuseinterpreter, [facility] - [facility] [address] [place] [address] Mammography Report Signed Patient: TonoMay TMR#: [id number] 131 : 1970Acct:[id number] Age/Sex: 52 / FADM Date: 08/04/23 Loc: HO.MAMMO Attending Dr: Sneha Li MD Ordering Physician: Sneha Li MDResults: 2B enign Findings Date of Service: 08/04/23Follow Up: 1 Year From Orig inal Mammogram Procedure(s): MM tomosynthesis screening BI Accession Number(s): [id number] cc: Sneha iL MD EXAMINATION: MM SCREENING DIGITAL BREAST TOMOSYNTHESIS, BILATERAL CLINICAL INFORMATION: Screening. Asymptomatic. COMPARISON: Mammography: This study is compared with prior exams dating back to 2019. TECHNIQUE: Procedure with a Digital breast tomosynthesis is performed in both the craniocaudal and mediolateral oblique views along with computer-aided detection (CAD). Synthesized 2D images are generated from the tomosynthesis. FINDINGS: There are scattered areas of fibroglandular density (ACR BI-RADS breast composition Category b). There are no significant masses, abnormal calcifications, or other abnormalities. There is a biopsy tissue marker associated with a benign mass in the superior aspect of the right breast. BI-RADS 2 MM/MM tomosynthesis screening BI IMPRESSION: No mammographic evidence of malignancy. ASSESSMENT: BI-RADS BI-RADS 2 - Benign Findings RECOMMENDATION: Routine annual mammography screening. 1 year F/U This examination should not preclude the clinical evaluation of a suspicious palpable abnormality. This patient's information was entered into a reminder system with a target due date for their next mammogram. Dictated By: Nidhi Alonso MD Signed By: <Electronically signed by Nidhi Alonso MD in OV> 08/04/23 1645 DD/ 1522 TD/TT: Printing Technician: Sneha Li MD IMG BI PROCEDURES Final Re sult * Hepatitis C Antibody (02/23/2019 10:52 AM EST) Pathologist [facility] Hepatitis C Antibody Nonreactive Blood 02/23/2019 10:5 2 AM EST Historical Provider POINT OF CARE TEST ENTER/ EDIT ORDERABLES Final Result * HPV E6/E7 RFLX JOSH 16 18/45 (02/19/2019 10:40 AM EST) Pathologist [facility] ADDITIONAL TESTING Not indicated () [facility] Comment: Test Performed by [facility], [place], [address] [place] [address] Ananth Boston M.D., Ph.D., Director of Laboratories , [facility] [id number] HPV 16 RNA Test not performed [facility] HPV 18/45 RNA Test not performed [facility] HPV mRNA E6/E7 Not Detected NOT DETECTED [facility] Comment: This test was performed using the APTIMA(R) HPV Assay ([employer] This assay detects E6/E7 viral messenger RNA (mRNA) from 14 high-risk HPV types (16,18,31,33,35,39,45,51, 52,56,58,59,66,68). For additional information please refer to: http://education.EventSorbet/faq/HAS985i2 (This link is being provided for informational/ educational purposes only.) The analytical performance characteristics of this assay have been determined by [facility] [place], [place]. The modifications have not been cleared or approved by the FDA. This assay has been validated pursuant to the CLIA regulations and is used for clinical purposes. Please note: ??Effective 10/23/2015, HPV testing will be performed using [employer]'s APTIMA test which targets mRNA. Detecting mRNA instead of DNA, as in older methods, offers significant improvements in specificity. 02/19/2019 10:4 0 AM EST us Sneha Li MD HISTORICAL/NON ORDERABLE L ABS Final Result Performing Organization Address City/[facility]/ZIP Co de Phone Number [facility] [address] * Thinprep PAP and HPV nRNA E6/E7 (02/19/2019 12:00 AM EST) Historical Provider MD LAB PATHOLOGY ORDERABLES Final Result Performing Organization Address City/[facility] Co de Phone Number IMAGING from Last 3 Months or Most Recently Relevant to Health Maintenance Insurance [facility] STAND ADULT Advance Directives Documents on File Type Date Recorded Patient Weight And Balance Control Agent Expl anation Advance Directives and Living Will 06/25/2023 Health Care Proxy 06/25/23 Care Teams Freight Representative Relationship Specialty Start Date End Date Guillermo, MD Sneha [address] [place] [phone] PCP - General Family Medicine 10/02/18 Dr. Lalito Miller MD [address] [address] Gynecologic Oncology 12/31/23 Dr. Samina Diaz [facility] Radiation Oncology 12/04/23 Dr. Pamela Cooper DO, Oncology 11/26/23 [facility] 11/20/23
--- OUTSIDE RECORDS SUMMARY | 2024-04-01 16:43 | XMS_ITS | Encounter Summary ---
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 Phone Sneha Li MD Primary Care Provider [phone] Reason for Visit * Reason Comments Abdominal Pain 10 abdominal pain with dizziness * Auth/Cert (Routine) Specialty Diagnoses / Procedures Referred By Contac t Referred To Contact Diagnoses Dehydration Hyponatremia Anal cancer (CMS/HCC) Generalized abdominal pain Dehydration with hyponatremia Diabetic ulcer of right buttock (CMS/HCC) Procedures [facility] IP/OBS CARE INITIAL MODERATE LEVEL PER DAY Charlie Mercer MD [address] [place] [address] Phone: tel: fax: [facility] [address] [place] [address] Phone: tel: Referral ID Status Reason Start Date Expiration Date Visits Re quested Visits Authorized [id number] 1 1 Encounter Details Date Type Department Care Team (Late st Contact Info) Description 02/17/2024 2:11 PM EST - 03/06/2024 1:20 PM EST Hospital Encounter [facility] [address] [place] [address] Carlos Malave MD [address] [place], [place] [id number] Charlie Mercer MD [address] [place], [place] [address] Al Gan MD [address] [place] [address] Tono Stack MD [address] [place] [address] Luzmaria Cobb MD [address] [place] [address] Dehydration (Primary Dx); Generalized abdominal pain; Diabetic ulcer of right buttock (CMS/HCC); Hyponatremia; Anal cancer (CMS/HCC); Dehydration with hyponatremia; Weakness generalized Discharge Disposition: Home-Health Care Svc Social History Tobacco Use Types Packs/Day Years [...] Sign Reading Time Taken Comments Blood Pressure 102/58 03/06/2024 11:19 AM EST Pulse 91 03/06/2024 11:19 AM EST Temperature 36.6 ??C (97.8 ??F) 03/06/2024 7 :35 AM EST Respiratory Rate 15 03/06/2024 7:35 AM EST Oxygen Saturation 98% 03/06/2024 11: 19 AM EST Inhaled Oxygen Concentration - - Weight 54 kg (119 lb) 02/25/2024 6:13 PM EST per EPIC record Height 157.5 cm (5' 2 ) 02/17/2024 9:11 PM EST Body Mass Index 21.77 02/17/2024 9:11 PM EST documented in this [...] Millan RN documented as of this encounter Discharge Summaries * Al Gan MD - 03/06/2024 12:09 PM EST Images from the original note were not included. 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 She is known to our care and does receive chemo and radiation treatment with Dr. Diaz and Mitchell. She has a known rectal ulceration and has undergone colectomy with colostomy for diversion. She did report low-grade temp unspecified at home yesterday and looks by outpatient med list to have completed oralDoxycycline and Augmentin from 02/09 through 02/14 recent hospitalization of rectal abscess. Workup in the emergency room was performed patient is hypotensive heart rate 84 temperature is 100.1white blood cell count 6.1 sodium low at 128 BUN [address] scan of the abdomen was performed today showing heterogeneous mass in the pelvis involving rectum, vagina and labia consistent with given history of anal cancer possible interval decrease in size noted. Infection was considered less likely at this time malignant lymphadenopathy is present however. Due to low-grade temp respiratory panel was also obtained and negative. Chest x-ray obtained showing no acute active pulmonary process cultures ordered and pending urinalysis does show some blood high epithelial count. Patient does show signs of hypovolemic hyponatremia IV albumin and IV fluids being provided with inpatient hospital stay Functional status prior to presentation: Physically decline states unable to care for herself at home would like a transferred to acute rehab Hospital course Patient is 53 years old female with past medical history significant for COPD, squamous cell carcinoma of the rectum, presented to the hospital with generalized weakness. Patient is on chemotherapy, radiation treatment with Dr. Diaz, Dr. Medrano. Patient was recently admitted for sepsis in the setting of soft tissue infection of the cancerous mass. Patient was treated with IV antibiotics and subsequently discharged on oral antibiotics. # Hypotension, dehydration # Hypovolemic hyponatremia -Patient was hypotensive upon presentation, systolic 58/24. Labs reviewed noted hyponatremia with sodium of 128, subsequently improved. -CT abdomen pelvis obtained upon presentation showed heterogeneous mass in the pelvis involving therectum, vagina, labia consistent with history of cancer. Mild interval decrease in size noted giventhe treatment. Slight interval increase in size and malignant lymphadenopathy. -Patient was seen by ICU filling layer up given the hypotension. -Blood pressure continues to be on the lower side, currently maintained on florinef, midodrin 5 mg tid . dc florinef today and monitor BPs. # Squamous cell carcinoma, rectal mass. # Chronic pain -Patient is on radiation treatment . Continue sitz bath but patient is unable to tolerate.. Overallpatient has poor performance status. Oncologist recommending physical therapy to improve strength to continue treatment.PT eval completed on 03/02/24 recommends home PT # Hypokalemia, hypomagnesemia likely from poor oral intake -Potassium improved with replacement. magnesium supplements upon dc. appreciate sales and marketing intern recommendations # History of schizophrenia -Continue risperidone, Ativan 0.5 mg p.o. twice daily as needed for anxiety. # History of COPD -Continue with advair diskus at home upon dc. # Anemia of chronic disease -Hemoglobin 7.3 . No indication for transfusion # Disposition home PT Total time spent 35 minutes This dictation was performed using voice recognition software. Word substitution may have occurred and may have gone unnoticed and uncorrected Follow-Up Instructions and Recommendations Sneha Li MD [address] [facility] 1 [facility] [id number] Schedule an appointment as soon as possible for a visit in 3 day(s) for transition of care visit Arlen Medrano DO [address] [facility] [address] Schedule an appointment as soon as possible for a visit in 1 week(s) for managment of malignancy [facility] [address] [facility] 25 [facility] [address] Discharge Procedure Orders Wheelchair Order Comments: Height: 1.575 m (62 ) Weight: 54 kg (119 lb) Order Specific Question Answer Comments Type Standard Face to face evaluation was performed on 03/06/2024 Complete blood count Standing Status: Future Standing Exp. Date: 03/03/25 Discharge Diet: Regular Diet Order Specific Question Answer Comments Discharge diet you should follow at home Regular Diet Notify provider - General Order Specific Question Answer Comments Reason(s) If you are unable to obtain your medications/prescriptions Reason(s) If you experience a fever above 101 degree Fahrenheit (38.3 degrees Celsius) or chills Reason(s) If you experience increased confusion, irritability, slurred or incoherent speech Restrict your activities and rest today, may resume normal activity tomorrow There are no outpatient Patient Instructions on file for this admission. Discharge Medications Your medication list START taking these medications Instructions Last Dose Given Next Dose Due fludrocortisone 0.1 mg tablet Commonly known as: FLORINEF Take 1 tablet (0.1 mg total) by mouth 1 (one) time each day. magnesium oxide 400 mg (241.3 elemental magnesium) tablet Commonly known as: MAG-OX Take 1 tablet (400 mg total) by mouth 1 (one) time each day for 10 days. multivitamin tablet Take 1 tablet by mouth 1 (one) time each day. polyethylene glycol 17 gram packet Commonly known as: MIRALAX Take 17 g by mouth 1 (one) time each day if needed for constipation. thiamine 100 mg tablet Commonly known as: VITAMIN B-1 Take 1 tablet (100 mg total) by mouth 1 (one) time each day. CONTINUE taking these medications Instructions Last Dose Given Next Dose Due ferrous sulfate 325 mg (65 mg elemental iron) tablet Take 1 tablet (325 mg total) by mouth 2 times daily. fluticasone propion-salmeteroL 500-50 mcg/dose diskus inhaler Commonly known as: ADVAIR DISKUS Inhale 500 mcg by mouth 2 times daily. folic acid 1 mg tablet Commonly known as: FOLVITE Take 1 tablet (1,000 mcg total) by mouth daily. hydrocortisone 2.5 % rectal cream Commonly known as: ANUSOL-HC LORazepam 0.5 mg tablet Commonly known as: ATIVAN Take 1 tablet (0.5 mg total) by mouth 2 (two) times a day if needed for anxiety. midodrine 5 mg tablet Commonly known as: PROAMATINE Take 1 tablet (5 mg total) by mouth 3 (three) times a day before meals. ondansetron 8 mg tablet Commonly known as: ZOFRAN Take 1 tablet (8 mg total) by mouth every 8 (eight) hours if needed for nausea or vomiting. oxyCODONE 20 mg 12 hr abuse-deterrent tablet Commonly known as: OxyCONTIN Take 1 tablet (20 mg total) by mouth every 12 (twelve) hours. Do not crush, chew, or split. oxyCODONE 5 mg immediate release tablet Commonly known as: ROXICODONE Take 1 tablet (5 mg total) by mouth every 4 (four) hours if needed for severe pain or moderate pain. risperiDONE 4 mg tablet Commonly known as: RisperDAL Take 1 tablet (4 mg total) by mouth at bedtime. risperiDONE 1 mg tablet Commonly known as: RisperDAL Take 1 tablet (1 mg total) by mouth 2 (two) times a day. STOP taking these medications acetaminophen 325 mg tablet Commonly known as: TYLENOL amoxicillin-clavulanate 875-125 mg per tablet Commonly known as: AUGMENTIN doxycycline 100 mg capsule Commonly known as: VIBRAMYCIN ASK your doctor about these medications Instructions Last Dose Given Next Dose Due melatonin 3 mg tablet Take 2 tablets (6 mg total) by mouth at bedtime as needed. Where to Get Your Medications These medications were sent to [facility]/pharmacy #[id number] [place] [address] [facility] [id number] fludrocortisone 0.1 mg tablet magnesium oxide 400 mg (241.3 elemental magnesium) tablet multivitamin tablet polyethylene glycol 17 gram packet thiamine 100 mg tablet Physical Exam at time of Discharge Physical Exam HENT: Head: Normocephalic. Pulmonary: Effort: Pulmonary effort is normal. No respiratory distress. Breath sounds: Normal breath sounds. Neurological: Mental Status: She is alert. Mental status is at baseline. Motor: Weakness present. Psychiatric: Mood and Affect: Mood normal. Behavior: Behavior normal. Vitals Visit Vitals BP 102/58 (BP Location: Right arm, Patient Position: Lying) Pulse 91 Temp 36.6 ??C (97.8 ??F) (Temporal) Resp 15 Temp (24hrs), Av.6 ??C (97.8 ??F), Min:36.2 ??C (97.2 ??F), Max:36.9 ??C (98.4 ??F) Body mass index is 21.77 kg/m??. No results found for: PTWT , PTHT * Al Gan MD - 03/05/2024 12:14 PM EST Images from the original note were not included. 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 She is known to our care and does receive chemo and radiation treatment with Dr. Diaz and Mitchell. She has a known rectal ulceration and has undergone colectomy with colostomy for diversion. She did report low-grade temp unspecified at home yesterday and looks by outpatient med list to have completed oralDoxycycline and Augmentin from 02/09 through 02/14 recent hospitalization of rectal abscess. Workup in the emergency room was performed patient is hypotensive heart rate 84 temperature is 100.1white blood cell count 6.1 sodium low at 128 BUN [address] scan of the abdomen was performed today showing heterogeneous mass in the pelvis involving rectum, vagina and labia consistent with given history of anal cancer possible interval decrease in size noted. Infection was considered less likely at this time malignant lymphadenopathy is present however. Due to low-grade temp respiratory panel was also obtained and negative. Chest x-ray obtained showing no acute active pulmonary process cultures ordered and pending urinalysis does show some blood high epithelial count. Patient does show signs of hypovolemic hyponatremia IV albumin and IV fluids being provided with inpatient hospital stay Functional status prior to presentation: Physically decline states unable to care for herself at home would like a transferred to acute rehab Hospital course Patient is 53 years old female with past medical history significant for COPD, squamous cell carcinoma of the rectum, presented to the hospital with generalized weakness. Patient is on chemotherapy, radiation treatment with Dr. Diaz, Dr. Medrano. Patient was recently admitted for sepsis in the setting of soft tissue infection of the cancerous mass. Patient was treated with IV antibiotics and subsequently discharged on oral antibiotics. # Hypotension, dehydration # Hypovolemic hyponatremia -Patient was hypotensive upon presentation, systolic 58/24. Labs reviewed noted hyponatremia with sodium of 128, subsequently improved. -CT abdomen pelvis obtained upon presentation showed heterogeneous mass in the pelvis involving therectum, vagina, labia consistent with history of cancer. Mild interval decrease in size noted giventhe treatment. Slight interval increase in size and malignant lymphadenopathy. -Patient was seen by ICU filling layer up given the hypotension. -Blood pressure continues to be on the lower side, currently maintained on florinef, midodrin 5 mg tid . Will cont florinef # Squamous cell carcinoma, rectal mass. # Chronic pain -Patient is on radiation treatment . Continue sitz bath but patient is unable to tolerate.. Overallpatient has poor performance status. Oncologist recommending physical therapy to improve strength to continue treatment.PT eval completed on 03/02/24 recommends home PT # Hypokalemia, hypomagnesemia likely from poor oral intake -Potassium improved with replacement. magnesium supplements upon dc. appreciate sales and marketing intern recommendations # History of schizophrenia -Continue risperidone, Ativan 0.5 mg p.o. twice daily as needed for anxiety. # History of COPD -Continue with advair diskus at home upon dc. # Anemia of chronic disease -transfused 1 unit prbc on 03/04 for hb 7.0 -repeat hb is 8 today # Disposition Home with PT Total time spent 35 minutes This dictation was performed using voice recognition software. Word substitution may have occurred and may have gone unnoticed and uncorrected Follow-Up Instructions and Recommendations Sneha Li MD [address] [facility] 1 [facility] [id number] Schedule an appointment as soon as possible for a visit in 3 day(s) for transition of care visit Arlen Medrano DO [address] [facility] [address] Schedule an appointment as soon as possible for a visit in 1 week(s) for managment of malignancy [facility] [address] [facility] [address] [facility] [address] Discharge Procedure Orders Complete blood count Standing Status: Future Standing Exp. Date: 03/03/25 Discharge Diet: Regular Diet Order Specific Question Answer Comments Discharge diet you should follow at home Regular Diet Notify provider - General Order Specific Question Answer Comments Reason(s) If you are unable to obtain your medications/prescriptions Reason(s) If you experience a fever above 101 degree Fahrenheit (38.3 degrees Celsius) or chills Reason(s) If you experience increased confusion, irritability, slurred or incoherent speech Restrict your activities and rest today, may resume normal activity tomorrow There are no outpatient Patient Instructions on file for this admission. Discharge Medications Your medication list START taking these medications Instructions Last Dose Given Next Dose Due magnesium oxide 400 mg (241.3 elemental magnesium) tablet Commonly known as: MAG-OX Take 1 tablet (400 mg total) by mouth 1 (one) time each day for 10 days. multivitamin tablet Take 1 tablet by mouth 1 (one) time each day. polyethylene glycol 17 gram packet Commonly known as: MIRALAX Take 17 g by mouth 1 (one) time each day if needed for constipation. thiamine 100 mg tablet Commonly known as: VITAMIN B-1 Take 1 tablet (100 mg total) by mouth 1 (one) time each day. CONTINUE taking these medications Instructions Last Dose Given Next Dose Due ferrous sulfate 325 mg (65 mg elemental iron) tablet Take 1 tablet (325 mg total) by mouth 2 times daily. fluticasone propion-salmeteroL 500-50 mcg/dose diskus inhaler Commonly known as: ADVAIR DISKUS Inhale 500 mcg by mouth 2 times daily. folic acid 1 mg tablet Commonly known as: FOLVITE Take 1 tablet (1,000 mcg total) by mouth daily. hydrocortisone 2.5 % rectal cream Commonly known as: ANUSOL-HC LORazepam 0.5 mg tablet Commonly known as: ATIVAN Take 1 tablet (0.5 mg total) by mouth 2 (two) times a day if needed for anxiety. midodrine 5 mg tablet Commonly known as: PROAMATINE Take 1 tablet (5 mg total) by mouth 3 (three) times a day before meals. ondansetron 8 mg tablet Commonly known as: ZOFRAN Take 1 tablet (8 mg total) by mouth every 8 (eight) hours if needed for nausea or vomiting. oxyCODONE 20 mg 12 hr abuse-deterrent tablet Commonly known as: OxyCONTIN Take 1 tablet (20 mg total) by mouth every 12 (twelve) hours. Do not crush, chew, or split. oxyCODONE 5 mg immediate release tablet Commonly known as: ROXICODONE Take 1 tablet (5 mg total) by mouth every 4 (four) hours if needed for severe pain or moderate pain. risperiDONE 4 mg tablet Commonly known as: RisperDAL Take 1 tablet (4 mg total) by mouth at bedtime. risperiDONE 1 mg tablet Commonly known as: RisperDAL Take 1 tablet (1 mg total) by mouth 2 (two) times a day. STOP taking these medications acetaminophen 325 mg tablet Commonly known as: TYLENOL amoxicillin-clavulanate 875-125 mg per tablet Commonly known as: AUGMENTIN doxycycline 100 mg capsule Commonly known as: VIBRAMYCIN ASK your doctor about these medications Instructions Last Dose Given Next Dose Due melatonin 3 mg tablet Take 2 tablets (6 mg total) by mouth at bedtime as needed. Where to Get Your Medications These medications were sent to [facility]/pharmacy #[id number] [place] - [address] [place] [address] [facility] [id number] magnesium oxide 400 mg (241.3 elemental magnesium) tablet multivitamin tablet polyethylene glycol 17 gram packet thiamine 100 mg tablet Physical Exam at time of Discharge Physical Exam Constitutional: Appearance: Normal appearance. She is ill-appearing. HENT: Head: Normocephalic. Eyes: Conjunctiva/sclera: Conjunctivae normal. Cardiovascular: Pulses: Normal pulses. Heart sounds: Normal heart sounds. Pulmonary: Effort: Pulmonary effort is normal. No respiratory distress. Breath sounds: Normal breath sounds. Abdominal: General: Bowel sounds are normal. There is no distension. Palpations: Abdomen is soft. Tenderness: There is no abdominal tenderness. Neurological: Motor: Weakness present. Psychiatric: Mood and Affect: Mood normal. Behavior: Behavior normal. Vitals Visit Vitals BP 107/58 Pulse 85 Temp 36.3 ??C (97.3 ??F) (Temporal) Resp 14 Temp (24hrs), Av.4 ??C (97.6 ??F), Min:36.2 ??C (97.1 ??F), Max:36.9 ??C (98.4 ??F) Body mass index is 21.77 kg/m??. No results found for: PTWT , PTHT * Al Gan MD - 03/04/2024 11:12 AM EST Images from the original note were not included. 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 She is known to our care and does receive chemo and radiation treatment with Dr. Diaz and Mitchell. She has a known rectal ulceration and has undergone colectomy with colostomy for diversion. She did report low-grade temp unspecified at home yesterday and looks by outpatient med list to have completed oralDoxycycline and Augmentin from 02/09 through 02/14 recent hospitalization of rectal abscess. Workup in the emergency room was performed patient is hypotensive heart rate 84 temperature is 100.1white blood cell count 6.1 sodium low at 128 BUN [address] scan of the abdomen was performed today showing heterogeneous mass in the pelvis involving rectum, vagina and labia consistent with given history of anal cancer possible interval decrease in size noted. Infection was considered less likely at this time malignant lymphadenopathy is present however. Due to low-grade temp respiratory panel was also obtained and negative. Chest x-ray obtained showing no acute active pulmonary process cultures ordered and pending urinalysis does show some blood high epithelial count. Patient does show signs of hypovolemic hyponatremia IV albumin and IV fluids being provided with inpatient hospital stay Functional status prior to presentation: Physically decline states unable to care for herself at home would like a transferred to acute rehab Hospital course Patient is 53 years old female with past medical history significant for COPD, squamous cell carcinoma of the rectum, presented to the hospital with generalized weakness. Patient is on chemotherapy, radiation treatment with Dr. Diaz, Dr. Medrano. Patient was recently admitted for sepsis in the setting of soft tissue infection of the cancerous mass. Patient was treated with IV antibiotics and subsequently discharged on oral antibiotics. # Hypotension, dehydration # Hypovolemic hyponatremia -Patient was hypotensive upon presentation, systolic 58/24. Labs reviewed noted hyponatremia with sodium of 128, subsequently improved. -CT abdomen pelvis obtained upon presentation showed heterogeneous mass in the pelvis involving therectum, vagina, labia consistent with history of cancer. Mild interval decrease in size noted giventhe treatment. Slight interval increase in size and malignant lymphadenopathy. -Patient was seen by ICU filling layer up given the hypotension. -Blood pressure continues to be on the lower side, currently maintained on florinef, midodrin 5 mg tid . Will cont florinef # Squamous cell carcinoma, rectal mass. # Chronic pain -Patient is on radiation treatment . Continue sitz bath but patient is unable to tolerate.. Overallpatient has poor performance status. Oncologist recommending physical therapy to improve strength to continue treatment.PT eval completed on 03/02/24 recommends home PT # Hypokalemia, hypomagnesemia likely from poor oral intake -Potassium improved with replacement. magnesium supplements upon dc. appreciate sales and marketing intern recommendations # History of schizophrenia -Continue risperidone, Ativan 0.5 mg p.o. twice daily as needed for anxiety. # History of COPD -Continue with advair diskus at home upon dc. # Anemia of chronic disease -Hemoglobin 7.0 today. Will transfuse 1 unit prbc today # Disposition rehab Total time spent 35 minutes This dictation was performed using voice recognition software. Word substitution may have occurred and may have gone unnoticed and uncorrected Follow-Up Instructions and Recommendations Sneha Li MD [address] [phone] Schedule an appointment as soon as possible for a visit in 3 day(s) for transition of care visit Arlen Medrano DO [address] [place] [phone] Schedule an appointment as soon as possible for a visit in 1 week(s) for managment of malignancy Discharge Procedure Orders Complete blood count Standing Status: Future Standing Exp. Date: 03/03/25 Discharge Diet: Regular Diet Order Specific Question Answer Comments Discharge diet you should follow at home Regular Diet Notify provider - General Order Specific Question Answer Comments Reason(s) If you are unable to obtain your medications/prescriptions Reason(s) If you experience a fever above 101 degree Fahrenheit (38.3 degrees Celsius) or chills Reason(s) If you experience increased confusion, irritability, slurred or incoherent speech Restrict your activities and rest today, may resume normal activity tomorrow There are no outpatient Patient Instructions on file for this admission. Discharge Medications Your medication list START taking these medications Instructions Last Dose Given Next Dose Due magnesium oxide 400 mg (241.3 elemental magnesium) tablet Commonly known as: MAG-OX Take 1 tablet (400 mg total) by mouth 1 (one) time each day for 10 days. multivitamin tablet Take 1 tablet by mouth 1 (one) time each day. polyethylene glycol 17 gram packet Commonly known as: MIRALAX Take 17 g by mouth 1 (one) time each day if needed for constipation. thiamine 100 mg tablet Commonly known as: VITAMIN B-1 Take 1 tablet (100 mg total) by mouth 1 (one) time each day. CONTINUE taking these medications Instructions Last Dose Given Next Dose Due ferrous sulfate 325 mg (65 mg elemental iron) tablet Take 1 tablet (325 mg total) by mouth 2 times daily. fluticasone propion-salmeteroL 500-50 mcg/dose diskus inhaler Commonly known as: ADVAIR DISKUS Inhale 500 mcg by mouth 2 times daily. folic acid 1 mg tablet Commonly known as: FOLVITE Take 1 tablet (1,000 mcg total) by mouth daily. hydrocortisone 2.5 % rectal cream Commonly known as: ANUSOL-HC LORazepam 0.5 mg tablet Commonly known as: ATIVAN Take 1 tablet (0.5 mg total) by mouth 2 (two) times a day if needed for anxiety. midodrine 5 mg tablet Commonly known as: PROAMATINE Take 1 tablet (5 mg total) by mouth 3 (three) times a day before meals. ondansetron 8 mg tablet Commonly known as: ZOFRAN Take 1 tablet (8 mg total) by mouth every 8 (eight) hours if needed for nausea or vomiting. oxyCODONE 20 mg 12 hr abuse-deterrent tablet Commonly known as: OxyCONTIN Take 1 tablet (20 mg total) by mouth every 12 (twelve) hours. Do not crush, chew, or split. oxyCODONE 5 mg immediate release tablet Commonly known as: ROXICODONE Take 1 tablet (5 mg total) by mouth every 4 (four) hours if needed for severe pain or moderate pain. risperiDONE 4 mg tablet Commonly known as: RisperDAL Take 1 tablet (4 mg total) by mouth at bedtime. risperiDONE 1 mg tablet Commonly known as: RisperDAL Take 1 tablet (1 mg total) by mouth 2 (two) times a day. STOP taking these medications acetaminophen 325 mg tablet Commonly known as: TYLENOL amoxicillin-clavulanate 875-125 mg per tablet Commonly known as: AUGMENTIN doxycycline 100 mg capsule Commonly known as: VIBRAMYCIN ASK your doctor about these medications Instructions Last Dose Given Next Dose Due melatonin 3 mg tablet Take 2 tablets (6 mg total) by mouth at bedtime as needed. Where to Get Your Medications These medications were sent to [facility]/pharmacy #[id number] [facility] [id number] magnesium oxide 400 mg (241.3 elemental magnesium) tablet multivitamin tablet polyethylene glycol 17 gram packet thiamine 100 mg tablet Physical Exam at time of Discharge Physical Exam Constitutional: Appearance: Normal appearance. She is ill-appearing. HENT: Head: Normocephalic. Eyes: Conjunctiva/sclera: Conjunctivae normal. Cardiovascular: Pulses: Normal pulses. Heart sounds: Normal heart sounds. Pulmonary: Effort: Pulmonary effort is normal. No respiratory distress. Breath sounds: Normal breath sounds. Abdominal: General: Bowel sounds are normal. There is no distension. Palpations: Abdomen is soft. Tenderness: There is no abdominal tenderness. Neurological: Motor: Weakness present. Psychiatric: Mood and Affect: Mood normal. Behavior: Behavior normal. Vitals Visit Vitals BP 87/59 (BP Location: Left arm, Patient Position: Lying) Pulse 85 Temp 36.4 ??C (97.5 ??F) (Temporal) Resp 12 Temp (24hrs), Av.5 ??C (97.7 ??F), Min:36.4 ??C (97.5 ??F), Max:36.6 ??C (97.8 ??F) Body mass index is 21.77 kg/m??. No results found for: PTWT , PTHT * Al Gan MD - 03/03/2024 2:27 PM EST Images from the original note were not included. 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 She is known to our care and does receive chemo and radiation treatment with Dr. Diaz and Mitchell. She has a known rectal ulceration and has undergone colectomy with colostomy for diversion. She did report low-grade temp unspecified at home yesterday and looks by outpatient med list to have completed oralDoxycycline and Augmentin from 02/09 through 02/14 recent hospitalization of rectal abscess. Workup in the emergency room was performed patient is hypotensive heart rate 84 temperature is 100.1white blood cell count 6.1 sodium low at 128 BUN [address] scan of the abdomen was performed today showing heterogeneous mass in the pelvis involving rectum, vagina and labia consistent with given history of anal cancer possible interval decrease in size noted. Infection was considered less likely at this time malignant lymphadenopathy is present however. Due to low-grade temp respiratory panel was also obtained and negative. Chest x-ray obtained showing no acute active pulmonary process cultures ordered and pending urinalysis does show some blood high epithelial count. Patient does show signs of hypovolemic hyponatremia IV albumin and IV fluids being provided with inpatient hospital stay Functional status prior to presentation: Physically decline states unable to care for herself at home would like a transferred to acute rehab Hospital course Patient is 53 years old female with past medical history significant for COPD, squamous cell carcinoma of the rectum, presented to the hospital with generalized weakness. Patient is on chemotherapy, radiation treatment with Dr. Diaz, Dr. Medrano. Patient was recently admitted for sepsis in the setting of soft tissue infection of the cancerous mass. Patient was treated with IV antibiotics and subsequently discharged on oral antibiotics. # Hypotension, dehydration # Hypovolemic hyponatremia -Patient was hypotensive upon presentation, systolic 58/24. Labs reviewed noted hyponatremia with sodium of 128, subsequently improved. -CT abdomen pelvis obtained upon presentation showed heterogeneous mass in the pelvis involving therectum, vagina, labia consistent with history of cancer. Mild interval decrease in size noted giventhe treatment. Slight interval increase in size and malignant lymphadenopathy. -Patient was seen by ICU filling layer up given the hypotension. -Blood pressure continues to be on the lower side, currently maintained on florinef, midodrin 5 mg tid . dc florinef today and monitor BPs. # Squamous cell carcinoma, rectal mass. # Chronic pain -Patient is on radiation treatment . Continue sitz bath but patient is unable to tolerate.. Overallpatient has poor performance status. Oncologist recommending physical therapy to improve strength to continue treatment.PT eval completed on 03/02/24 recommends home PT # Hypokalemia, hypomagnesemia likely from poor oral intake -Potassium improved with replacement. magnesium supplements upon dc. appreciate sales and marketing intern recommendations # History of schizophrenia -Continue risperidone, Ativan 0.5 mg p.o. twice daily as needed for anxiety. # History of COPD -Continue with advair diskus at home upon dc. # Anemia of chronic disease -Hemoglobin 7.3 . No indication for transfusion # Disposition home PT Total time spent 35 minutes This dictation was performed using voice recognition software. Word substitution may have occurred and may have gone unnoticed and uncorrected Follow-Up Instructions and Recommendations Sneha Li MD [address] [phone] Schedule an appointment as soon as possible for a visit in 3 day(s) for transition of care visit Arlen Medrano DO [address] [place] [id number] Schedule an appointment as soon as possible for a visit in 1 week(s) for managment of malignancy Discharge Procedure Orders Complete blood count Standing Status: Future Standing Exp. Date: 03/03/25 Discharge Diet: Regular Diet Order Specific Question Answer Comments Discharge diet you should follow at home Regular Diet Notify provider - General Order Specific Question Answer Comments Reason(s) If you are unable to obtain your medications/prescriptions Reason(s) If you experience a fever above 101 degree Fahrenheit (38.3 degrees Celsius) or chills Reason(s) If you experience increased confusion, irritability, slurred or incoherent speech Restrict your activities and rest today, may resume normal activity tomorrow There are no outpatient Patient Instructions on file for this admission. Discharge Medications Your medication list START taking these medications Instructions Last Dose Given Next Dose Due magnesium oxide 400 mg (241.3 elemental magnesium) tablet Commonly known as: MAG-OX Take 1 tablet (400 mg total) by mouth 1 (one) time each day for 10 days. multivitamin tablet Start taking on: March 04, 2024 Take 1 tablet by mouth 1 (one) time each day. polyethylene glycol 17 gram packet Commonly known as: MIRALAX Take 17 g by mouth 1 (one) time each day if needed for constipation. thiamine 100 mg tablet Commonly known as: VITAMIN B-1 Start taking on: March 04, 2024 Take 1 tablet (100 mg total) by mouth 1 (one) time each day. CONTINUE taking these medications Instructions Last Dose Given Next Dose Due ferrous sulfate 325 mg (65 mg elemental iron) tablet Take 1 tablet (325 mg total) by mouth 2 times daily. fluticasone propion-salmeteroL 500-50 mcg/dose diskus inhaler Commonly known as: ADVAIR DISKUS Inhale 500 mcg by mouth 2 times daily. folic acid 1 mg tablet Commonly known as: FOLVITE Take 1 tablet (1,000 mcg total) by mouth daily. hydrocortisone 2.5 % rectal cream Commonly known as: ANUSOL-HC LORazepam 0.5 mg tablet Commonly known as: ATIVAN Take 1 tablet (0.5 mg total) by mouth 2 (two) times a day if needed for anxiety. midodrine 5 mg tablet Commonly known as: PROAMATINE Take 1 tablet (5 mg total) by mouth 3 (three) times a day before meals. ondansetron 8 mg tablet Commonly known as: ZOFRAN Take 1 tablet (8 mg total) by mouth every 8 (eight) hours if needed for nausea or vomiting. oxyCODONE 20 mg 12 hr abuse-deterrent tablet Commonly known as: OxyCONTIN Take 1 tablet (20 mg total) by mouth every 12 (twelve) hours. Do not crush, chew, or split. oxyCODONE 5 mg immediate release tablet Commonly known as: ROXICODONE Take 1 tablet (5 mg total) by mouth every 4 (four) hours if needed for severe pain or moderate pain. risperiDONE 4 mg tablet Commonly known as: RisperDAL Take 1 tablet (4 mg total) by mouth at bedtime. risperiDONE 1 mg tablet Commonly known as: RisperDAL Take 1 tablet (1 mg total) by mouth 2 (two) times a day. STOP taking these medications acetaminophen 325 mg tablet Commonly known as: TYLENOL amoxicillin-clavulanate 875-125 mg per tablet Commonly known as: AUGMENTIN doxycycline 100 mg capsule Commonly known as: VIBRAMYCIN ASK your doctor about these medications Instructions Last Dose Given Next Dose Due melatonin 3 mg tablet Take 2 tablets (6 mg total) by mouth at bedtime as needed. Where to Get Your Medications These medications were sent to [facility]/pharmacy #[id number] - [place], [place] - [address] [place] [id number] magnesium oxide 400 mg (241.3 elemental magnesium) tablet multivitamin tablet polyethylene glycol 17 gram packet thiamine 100 mg tablet Physical Exam at time of Discharge Physical Exam Constitutional: Appearance: Normal appearance. She is ill-appearing. HENT: Head: Normocephalic. Eyes: Conjunctiva/sclera: Conjunctivae normal. Cardiovascular: Pulses: Normal pulses. Heart sounds: Normal heart sounds. Pulmonary: Effort: Pulmonary effort is normal. No respiratory distress. Breath sounds: Normal breath sounds. Abdominal: General: Bowel sounds are normal. There is no distension. Palpations: Abdomen is soft. Tenderness: There is no abdominal tenderness. Neurological: Motor: Weakness present. Psychiatric: Mood and Affect: Mood normal. Behavior: Behavior normal. Vitals Visit Vitals BP 111/67 (BP Location: Right arm, Patient Position: Lying) Pulse 81 Temp 36.2 ??C (97.2 ??F) (Temporal) Resp 15 Temp (24hrs), Av.6 ??C (97.8 ??F), Min:36.2 ??C (97.2 ??F), Max:36.9 ??C (98.4 ??F) Body mass index is 21.77 kg/m??. No results found for: PTWT , PTHT documented in this encounter Discharge Instructions * Discharge Instructions* Alyson Pettit RN - 03/04/2024 12:29 PM EST Images from the original note were not included. 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 COLOSTOMY OSTOMY ASSESSMENT AND RECOMMENDATIONS: Type and Location: End Colostomy in LLQ / Temporary Stoma: Color: pale, pink, Shape and Size: round 1 inch Height: flushed Appearance of mucosa: moist, textured Lumen: centrally located Mucocutaneous Junction: well healed Effluent: pasty, sticky, brown and caking up around stoma Peristomal Skin: intact Abdomen: rounded, small hernia noted at 1 o'clock of stoma Stoma/Peristomal Skin Complications: Ostomy Appliance: Supplier: [place] Type: 2-piece pre-sized 1 inch, flat Skin Barrier: Flat ref#[id number] Pouch: Closed End ref# [id number] Ostomy Accessories: Skin Protective Wipes- [place] [employer] ref#[id number] Ostomy Powder- [place] ref#[id number]) Barrier Ring- [place] [employer] Barrier Ring Cera 2 ref#[id number] Odor Eliminator and Lubricant- [place] [employer] ref#[id number] (0.27oz packet/ 50/box) Patient and Caregiver Education: Patient is not able to walk due to perineal pain and sit on the toilet for pouch emptying and therefore she has been changing appliance when needed to empty. She lives alone. I recommended wafer cut to fit stoma and disposable pouches. Both should make adriel appliancechange and emptying much easier for patient. I taught her to use adapt ring if needed for extra seal when pouch leaking and staying for for 3-5 days. I taught her to use lubricant to avoid stool collection around stoma. New order will be faxed to [facility]. COLOSTOMY The average wear time is 5-7 days. Always change your pouching system at the first sign of leakage.Do not try to patch the pouching system with tape or paste. Leaving a leaking pouch on can cause skin irritation. Itching or burning under the pouch most likely is related to leakage. The stool from the colostomy after surgery is liquid and with healing and regular diet it becomes formed. Diet: After healing is complete most people with colostomies return to a regular diet. Prevent constipation by eating foods high in fiber and drinking plenty of fluids. Some foods may cause more gas such as broccoli, cabbage, beans, cheese, onions, eggs, and alcohol. If you have a lot of gas, you may want to consider using pouch with filter. You can burp the pouch by pulling on the upper tab, release gas and snap pouch back onto wafer. Empty pouch when it is 1/3 to 1?? full. Overfilled pouch may unsnap from the wafer or may cause leak under wafer. Excessive hair around stoma area can interfere with skin barrier and it may be painful to remove wafer. Trim hair with scissors or use electric razor. Remove the wafer (skin barrier) by gently pushing your skin down and away from the wafer rather than pulling it away from the skin. Start from the top and work down to the bottom. If you use adhesiveremover pads or spray to assist with taking down of wafer it is very important to wash off skin with water and dry completely before you put on your new pouching system. Clean the skin surface around the stoma with water and good quality paper towels. A mild soap may be used, but rinse thoroughly. Do not use moistened wipes, baby wipes that contain moisturizer as it will interfere with the wafer (skin barrier) sticking and may irritate your skin. Cleaning around the stoma may cause slight bleeding. Spots of blood are no cause for alarm. You may bathe with or without pouching system in place. For bathing or swimming, you may want to protect the barrier by tapingthe edges with waterproof tape. Gas filters do not work after they get wet. Protect filter with waterproof tape or stickers provided in the box before water activities. The gas filer is usually effective up to 3 days. Your stoma will be swollen immediately after surgery, and it will shrink over 6- 8 weeks. During this time the stoma should be measured once a week. The opening on the wafer (skin barrier) should be no more than 1/8 inch larger than the stoma size. It should fit very closely around the stoma withoutexposing too much skin. You will have a cut-to-fit pouching system (you cut it to fit your stoma size) and when your stoma size stabilizes, you may wish to change to pre-cut pouch system (already cutto fit your stoma size). If using Adapt seal stretch it to fit stoma and apply directly around opening on the wafer, press gently to attach onto wafer and then apply pouch with seal over stoma. Whendone put your open hand over attached pouch and stoma, gently press against the pouch and keep yourhand for 10 min to allow pouch to mold onto your skin and improve the seal. In case of raw and weepy skin around your stoma follow this crusting technique: sprinkle ostomy powder over irritated area and dust it off, it will look like most of powder has been removed, dab or spray a non-sting skin barrier sealant, may repeat 1-2 times. A starter [place] kit was requested for you, and it will be delivered to you by mail. It will include a caring case, mirror, scissors and some samples of pouching systems and accessory supplies. If you discharged with [facility] services and your insurance is traditional Medicare, your VNA nurse willorder ostomy supplies. Start ordering your supplies after you discharged from [facility]. If you have other insurance than tradition Medicare, you may start ordering supplies right away from [facility]. Your prescriptions will be sent to [facility] tel: . Follow up ostomy appointment with ostomy nurse- if needed please schedule [facility] [address], [address], [facility] [address]. Please call if need to cancel or reschedule at [phone]. documented in this encounter Medications at Time of Discharge [...] 03/03/2024 03/13/2024 documented as of this encounter Ordered Prescriptions Prescription Sig Dispense Quantity Refills Last Filled Start Date End Date fludrocortisone (FLORINEF) 0.1 mg tablet Take 1 tablet (0.1 mg total) by mouth 1 (one) time each day. 30 each 03/05/2024 04/04/2024 thiamine (VITAMIN B-1) 100 mg tablet Take 1 tablet (100 mg total) by mouth 1 (one) time each day. 30 tablet 03/04/2024 04/03/2024 polyethylene glycol (MIRALAX) 17 gram packet Take 17 g by mouth 1 (one) time each day if needed for constipation . 51 g 03/03/2024 04/02/2024 multivitamin tablet Take 1 tablet by mouth 1 (one) time each day. 30 each 03/04/2024 04/03/2024 magnesium oxide (MAG-OX) 400 mg (241.3 elemental magnesium) tablet Take 1 tablet (400 mg total) by mouth 1 (one) time each day for 10 days. 10 each 03/03/2024 03/13/2024 documented in this encounter Discharge Disposition Disposition Code Departure Means Destination Comment s Home-Health Care [facility] documented in this encounter Progress Notes * Susan Doan RN - 03/06/2024 1:22 PM EST Education provided with regards to scripts/meds/wound care/ostomy care/f/u labs and appointments * Sneha Malcolm RN - 03/06/2024 12:19 PM EST ICC and RN met with pt and sister Shaina at bedside. [employer] [id number] utilized. Pt reported she was unsure on how she would get to chemo after d/c ICC reviewed there are transportation services provided from [facility] that can assist. Pt additionally reported she does not have an aid that comes to help her on the weekends. ICC inquired how she managed at home on the weekends prior to admission, ptreported she has informal support from her sister and niece. ICC additionally discussed Moms meals or HDM, pt reported she is not interested in those services as wants home cooked meals. Pt reported that her aid that comes to help is not always reliable. [facility] reviewed that this can be discussed withher case monitor through [facility] in the community upon d/c. ICC advised pt to follow up with [facility] to discuss supportive services in the home. Pt verbalized understanding. Pt reported she has the number to contact [facility]. Pt/ sister aware ambulance is coming at 1:30 today to transport home and [facility] is also aware of d/c home today. Pt/ sister had no additional questions. SANA * Bertha Tavares OT - 03/06/2024 10:47 AM EST Therapy session was attempted for May by Bertha Tavares OT on 03/06/2024. The patient was unable to be seen for the following reason(s): Refused treatment, despite verbal cues of encouragement to participate, pt politely refused OT treatment at this time d/t 10/10 pain in abd. And fatigue. Plan for return visit: As soon as possible * Sneha Malcolm RN - 03/06/2024 10:43 AM EST 03/06/24 1042 Transportation Transportation at discharge [facility] providing transportation raúl What day is the transport expected? 03/06/24 What time is the transport expected? 1330 Final Discharge Disposition Home Health Care Services ([facility] to resume services) [facility] met with pt at bedside [employer] [id number] utilized. ICC reported transport has been booked to d/c home today at 1:30pm. Pt reported she has the keys to get into her apartment. ICC additionally spoke to pt's sister Shaina and provided update on d/c time. Pt / sister verbalized understanding of plan * Karin Coello RN - 03/05/2024 11:15 PM EST Goals: Pain level will improve or be tolerable Identify possible barriers to meeting goals/advancing plan of care: chronic pain issues Stability of the patient: Moderately Stable - Low risk of patient condition declining or worsening End of Shift Summary: Pt resting comfortably this evening. Received scheduled oxycontin and prn oxycodone for pain * Sneha Malcolm RN - 03/05/2024 5:07 PM EST CM Progress Note ICC spoke with JORDAN clinician Yessi from [facility]. Confirmed pt is authorized 35 hours a week for personal correction making through [employer] caregivers, pt has VNA through [employer], ACCS team through [facility] and [facility] support. ICC met with pt at bedside. [employer] utilized [id number]. ICC discussed PT recommendations to go home. Pt reported she was OK with going home but she needed a new w/c because the one she received in November was not big enough, Pt also reported she is not able to cook for herself and wanted cooked meals. ICC reviewed that her formal services provided in the home are there to assist with meal prep. Pt also reported she will need transportation home. ICC will continue to follow for d/c * Natalya Zazueta, PT - 03/05/2024 12:15 PM EST Patient: May Tono Age: 53 y.o. Sex: female Dehydration with hyponatremia 03/05/24 1215 PT Last Visit PT Received On 03/05/24 General Family/Caregiver Present No PT Time Calculation PT Start Time 1215 PT Stop Time 1300 PT Time Calculation (min) 45 min Precautions Medical Precautions Fall Risk Safety Interventions Call stack within reach;ID band on;Bed alarm RUE Weight Bearing Status Full LUE Weight Bearing Status Full RLE Weight Bearing Status Full LLE Weight Bearing Status Full Oxygen Therapy Oxygen Therapy None (Room air) Pain Assessment Pain Assessment 0-10 Pain Score 10 - Worst possible pain Pain Type Acute pain Pain Location Abdomen Pain Orientation (AND BUTTOCKS.) Pain Frequency Constant/continuous Activity Tolerance Endurance Tolerates 30 min exercise with multiple rests Static Sitting Balance Static Sitting-Level of Assistance Independent Dynamic Sitting Balance Dynamic Sitting-Level of Assistance Independent Static Standing Balance Static Standing-Level of Assistance Supervision Dynamic Standing Balance Dynamic Standing-Level of Assistance Supervision Bed Mobility Sitting to Lying Assistance Independent Lying to Sitting Assistance Independent Transfers Sit to Stand Assistance Supervision Chair/Bed to Chair/Bed Transfer Assistance Supervision Ambulation Device Rolling walker Distance Ambulated (ft) 20 Stairs Stairs Assistance Standby assistance Stair Management Technique/Device One rail R Number of Stairs 5 (declined any further stairs, but was able to complete last visit)) Procedures Procedures Gait Training Gait Training Gait Training Time Entry 30 Gait Training Activity 1 Standing/gait with rwalker, supervised, no LOB Gait Training Activity 2 stair training with r rail, 2 ft per step x 4, up/down (sba good balance and foot placement; pt previously went up/down 10 steps, previous tx session without difficulty) Therapeutic Activity Therapeutic Activity Time Entry 15 Therapeutic Activity 1 dc planning: pt concerned about meal prep at home, and refused to use MOW; discussed food prep at wc level; and recommendation for home PT and OT Therapeutic Activity 2 functional mobility: pt performs bed mobility I; (she offloads rbuttoshe offloads rbuttocks by sitting on l foot;) Therapeutic Activity 3 sitting over EOB, i; sit -stand , bed wc transfers, supervised,no lOB PT Assessment PT Assessment Results Decreased strength;Decreased endurance;Impaired gait;Decreased mobility;Impaired hearing;Pain (pain appears to be most limiting factor, impacting functional mobility. She has mild ble strength deficits, decreased activity tolerance,but demonstrates safe functional mobility on level surfaces and stairs, no lob. recommend home PT) Prognosis Good Evaluation/Treatment Tolerance Patient limited by pain Medical Staff Made Aware Yes Plan PT Discharge Recommendations Home PT Barriers to Discharge pain PT - OK to Discharge Yes ASSESSMENT Physical therapy is necessary to continue to work toward goals of strengthening, bed mobility, transfers, balance and gait training to increase patient's independence in all areas of functional mobility. Pt demonstrates adequate mobility to return home with continued home PT to further progress gait, balance, strength and endurance to increase patient's independence in all areas of functional mobility and to reduce the risk for falls. PT Assessment Results: Decreased strength, Decreased endurance, Impaired gait, Decreased mobility, Impaired hearing, Pain (pain appears to be most limiting factor, impacting functional mobility. She has mild ble strength deficits, decreased activity tolerance,but demonstrates safe functional mobility on level surfaces and stairs, no lob. recommend home PT) Prognosis: Good Evaluation/Treatment Tolerance: Patient limited by pain Medical Staff Made Aware: Yes PLAN Acute Care Plan: Treatment/Interventions: ADL retraining, Functional transfer training, LE strengthening/ROM, Endurance training, Patient/family training, Bed mobility, Gait training, Continued evaluation, Balance training (pt is deaf and needs asl teleinterpreter (used [id number])) PT Plan: Skilled PT PT Frequency: 2-5 days per week PT Discharge Recommendations: Home PT Time Spent: PT Time Calculation PT Start Time: 1215 PT Stop Time: 1300 PT Time Calculation (min): 45 min Time Entry: PT Therapeutic Procedures Time Entry Gait Training Time Entry: 30 Therapeutic Activity Time Entry: 15 Goals: Encounter Problems Encounter Problems (Active) Template: Physical Therapy Problem: PT Short Term Goals Dates: Start: 02/24/24 Goal: Pt. will Perform transfers, stand by assist with rwalker Dates: Start: 02/24/24 Expected End: 03/08/24 Outcomes Date/Time User Outcome 03/02/24 1627 Natalya Zazueta PT Progressing Goal: Pt. will ambulate x 50 ft with rwalker, stand by assist Dates: Start: 02/24/24 Expected End: 03/08/24 Outcomes Date/Time User Outcome 03/02/24 1627 Natalya Zazueta, PT Progressing Encounter Problems (Resolved) There are no resolved problems. EDUCATION Education Documentation Teach information regarding safety precautions, taught by Natalya Zazueta PT at 03/05/2024 1:26 PM. Learner: Patient Readiness: Acceptance Method: Explanation Response: Verbalizes Understanding Comment: advised to navigate steps, 2 ft /step Explain information regarding therapeutic regimen, taught by Natalya Zazueta PT at 03/05/2024 1:26 PM. Learner: Patient Readiness: Acceptance Method: Explanation Response: Verbalizes Understanding Comment: advised to navigate steps, 2 ft /step Teach proper use of assistive devices, taught by Natalya Zazueta PT at 03/05/2024 1:26 PM. Learner: Patient Readiness: Acceptance Method: Explanation Response: Verbalizes Understanding Comment: advised to navigate steps, 2 ft /step Education Comments No comments found. * Chinmay Woods - 03/05/2024 9:21 AM EST Spiritual Care Visit Attempt Receiving Team Member attempted to visit the patient but the patient was unavailable. Follow- up visits will be attempted throughout hospitalization to assess emotional and spiritual support needs. * Bertha Tavares OT - 03/05/2024 8:45 AM EST [facility] Occupational Therapy Treatment Note DATE: Tuesday March 05, 2024 TIME IN: 0845 TIME OUT: 30 Pt: May Tono [id number] DISCHARGE RECS: Home OT EQUIPMENT RECS: Walker-rolling SAFE PT HANDLING REC FOR STAFF: 1 person SPV with RW PRECAUTIONS: Precautions Medical Precautions: Fall Risk Safety Interventions: Call stack within reach, ID band on, Bed alarm RUE Weight Bearing Status: Full LUE Weight Bearing Status: Full RLE Weight Bearing Status: Full LLE Weight Bearing Status: Full ASSESSMENT: Pt participated in skilled OT session today. Patient engaged in therapeutic activity. Patient was most limited today by abdomen pain. Patient verbalized understanding to education provided and responded appropriately to cues. Patient would continue to benefit from skilled acute care OT to address ADLs. Subjective Video food service supervisor utilized d/t pt using sign language for communication Objective 03/05/24 1043 OT Last Visit OT Received On 03/05/24 OT Time Calculation OT Start Time 0845 OT Stop Time 0930 OT Time Calculation (min) 45 min Precautions Medical Precautions Fall Risk Safety Interventions Call stack within reach;ID band on;Bed alarm RUE Weight Bearing Status Full LUE Weight Bearing Status Full RLE Weight Bearing Status Full LLE Weight Bearing Status Full Vital Signs Patient Identification Yes Pain Assessment Pain Assessment 0-10 Pain Score 10 - Worst possible pain Pain Location Abdomen Functional Mobility Walking Assistance Supervision Device Rolling walker Distance Ambulated (ft) 120 Comments pt steady t/o mobility tasks. Cognition Overall Cognitive Status WFL Therapeutic Activity Therapeutic Activity Time Entry 45 Therapeutic Activity 2 Pt agreeable to participate in session. Pt completed bed mobility IND with increase time to task d/t pain in abd. Pt sat EOB for approx 5 minutes IND. Pt completed sit to standto RW with initial SPV for safety. Pt completed fxnl mobility with RW approx 120 ft with slow pace with SPV for safety. Pt with good balance t/o. Pt without LOB. Pt completed toilet txfer with RW with SPV for safety. Pt SPV with toileting tasks. Pt completed EOB to supine IND. OT recommending home OT services to further address ADLs in pts home. OT Assessment OT Assessment Results Decreased ADL status;Decreased endurance Prognosis Good Evaluation/Treatment Tolerance Patient limited by pain Plan Treatment Interventions ADL retraining;Functional transfer training OT Plan Skilled OT OT Frequency 2-5 days per week OT Duration of Sessions 30-60 min per session OT Treatments per day 1 time per day OT - Evaluation Status Complete OT Discharge Recommendations Home OT Equipment Recommended Walker-rolling ADDITIONAL COMMENTS: Chart reviewed. RN clears pt for session. Pt agrees to participate and received supine with HOB elevated. All lines in place. Medical precautions observed appropriately. Patient educated on Role of OT and ADL Techniques and Safety . Good verbal understanding and returndemonstration. No further education and training recommended. EXIT STATUS: Session ended with patient supine with HOB elevated. Needs in reach. RN notified. Assessment & Plan EDUCATION Education Documentation Body Mechanics, taught by Bertha Tavares OT at 03/05/2024 10:59 AM. Learner: Patient Readiness: Acceptance Method: Explanation Response: Verbalizes Understanding Comment: Pt educated on pacing self t/o daily tasks. Education Comments No comments found. Encounter Problems Encounter Problems (Active) Template: Occupational Therapy Problem: OT Short Term Goals Dates: Start: 02/24/24 Goal: pt will complete fxnl mobility with RW to bathroom in order to complete toilet txfer with minassist (Resolved) Dates: Start: 02/24/24 Expected End: 03/04/24 Resolved: 03/05/24 Outcomes Date/Time User Outcome 03/05/24 1058 Bertha Tavares OT Completed Goal: pt will complete lower body dressing task with min assist AE PRN Dates: Start: 02/24/24 Expected End: 03/04/24 Goal: OT STG 3 Dates: Start: 03/05/24 Encounter Problems (Resolved) There are no resolved problems. Bertha Tavares OT * Karin Coello RN - 03/05/2024 1:31 AM EST Goals: PAIN WILL IMPROVE OR BE TOLERABLE Identify possible barriers to meeting goals/advancing plan of care: RECTAL CANCER Stability of the patient: Moderately Stable - Low risk of patient condition declining or worsening End of Shift Summary: PT W/ CONGENITAL DEAFNESS ADMITTED WITH ABDOMINAL PAIN, ON SCHEDULED OXYCONTIN AND PRN OXYCODONE. RESTING COMFORTABLY. * Karin Oscar RN - 03/04/2024 5:24 PM EST CM 03/04 OWEN: 03/05 Barriers: wound, M-F radiation treatments until 03/29 [facility] has secured PT-1 transport, no bed offeres Plan: Passed PT- VNA ? Comfort + Patient deaf will need ALS food service supervisor HCP on file * Alyson Pettit RN - 03/04/2024 12:05 PM EST Images from the original note were not included. Ostomy Initial Consult Visit Date: 03/04/2024 Patient Name: Yanna Power Date of : 1970 Surgery Date: Patient with well matured colostomy and the initial purpose of this assessment was tofollow up on perineal wound. However, discharge panner informed that patient does not do well with ostomy management and instead of emptying she is changing entire appliance. I used video ASL scrap preparation supervisor for this visit. At the end of ostomy teaching patient declined wound assessment and wanted to rest. 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[facility]) 12/16/2023 Congenital deafness 03/21/2023 COPD (chronic obstructive pulmonary disease) ([facility]) 03/21/2023 Low vitamin D level 03/21/2023 Nicotine dependence 03/21/2023 Ostomy Exam: Colostomy LLQ (Active) Wound Image 03/04/24 1005 Stomal Appliance 2 piece;Flat 03/04/24 1203 Stoma Assessment [place] 03/04/24 1203 Peristomal Assessment Intact 03/04/24 1203 Mucocutaneous Junction Intact 03/04/24 1203 Wound/Ostomy Consult Ordered Yes 02/26/24 0844 Treatment Pouch change 03/04/24 1203 Output (mL) 0 mL 02/29/24 0830 Impression/Recommendations: Patient is 53 years old female with with 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 COLOSTOMY OSTOMY ASSESSMENT AND RECOMMENDATIONS: Type and Location: End Colostomy in LLQ / Temporary Stoma: Color: pale, pink, Shape and Size: round 1 inch Height: flushed Appearance of mucosa: moist, textured Lumen: centrally located Mucocutaneous Junction: well healed Effluent: pasty, sticky, brown and caking up around stoma Peristomal Skin: intact Abdomen: rounded, small hernia noted at 1 o'clock of stoma Stoma/Peristomal Skin Complications: Ostomy Appliance: Supplier: Alejandra Type: 2-piece pre-sized 1 inch, flat Skin Barrier: Flat ref#[id number] Pouch: Closed End ref# [id number] Ostomy Accessories: Skin Protective Wipes- Alejandra Adapt ref#[id number] Ostomy Powder- Alejandra Adapt ref#[id number]) Barrier Ring- [place] Adapt Barrier Ring Cera 2 ref#[id number] Odor Eliminator and Lubricant- Alejandra Adapt ref#[id number] (0.27oz packet/ 50/box) Patient and Caregiver Education: Patient is not able to walk due to perineal pain and sit on the toilet for pouch emptying and therefore she has been changing appliance when needed to empty. She lives alone. I recommended wafer cut to fit stoma and disposable pouches. Both should make adriel appliancechange and emptying much easier for patient. I taught her to use adapt ring if needed for extra seal when pouch leaking and staying for for 3-5 days. I taught her to use lubricant to avoid stool collection around stoma. New order will be faxed to [facility]. COLOSTOMY The average wear time is 5-7 days. Always change your pouching system at the first sign of leakage.Do not try to patch the pouching system with tape or paste. Leaving a leaking pouch on can cause skin irritation. Itching or burning under the pouch most likely is related to leakage. The stool from the colostomy after surgery is liquid and with healing and regular diet it becomes formed. Diet: After healing is complete most people with colostomies return to a regular diet. Prevent constipation by eating foods high in fiber and drinking plenty of fluids. Some foods may cause more gas such as broccoli, cabbage, beans, cheese, onions, eggs, and alcohol. If you have a lot of gas, you may want to consider using pouch with filter. You can burp the pouch by pulling on the upper tab, release gas and snap pouch back onto wafer. Empty pouch when it is 1/3 to 1?? full. Overfilled pouch may unsnap from the wafer or may cause leak under wafer. Excessive hair around stoma area can interfere with skin barrier and it may be painful to remove wafer. Trim hair with scissors or use electric razor. Remove the wafer (skin barrier) by gently pushing your skin down and away from the wafer rather than pulling it away from the skin. Start from the top and work down to the bottom. If you use adhesiveremover pads or spray to assist with taking down of wafer it is very important to wash off skin with water and dry completely before you put on your new pouching system. Clean the skin surface around the stoma with water and good quality paper towels. A mild soap may be used, but rinse thoroughly. Do not use moistened wipes, baby wipes that contain moisturizer as it will interfere with the wafer (skin barrier) sticking and may irritate your skin. Cleaning around the stoma may cause slight bleeding. Spots of blood are no cause for alarm. You may bathe with or without pouching system in place. For bathing or swimming, you may want to protect the barrier by tapingthe edges with waterproof tape. Gas filters do not work after they get wet. Protect filter with waterproof tape or stickers provided in the box before water activities. The gas filer is usually effective up to 3 days. Your stoma will be swollen immediately after surgery, and it will shrink over 6- 8 weeks. During this time the stoma should be measured once a week. The opening on the wafer (skin barrier) should be no more than 1/8 inch larger than the stoma size. It should fit very closely around the stoma withoutexposing too much skin. You will have a cut-to-fit pouching system (you cut it to fit your stoma size) and when your stoma size stabilizes, you may wish to change to pre-cut pouch system (already cutto fit your stoma size). If using Adapt seal stretch it to fit stoma and apply directly around opening on the wafer, press gently to attach onto wafer and then apply pouch with seal over stoma. When done put your open hand over attached pouch and stoma, gently press against the pouch and keep your hand for 10 min to allow pouch to mold onto your skin and improve the seal. In case of raw and weepy skin around your stoma follow this crusting technique: sprinkle ostomy powder over irritated area and dust it off, it will look like most of powder has been removed, dab or spray a non-sting skin barrier sealant, may repeat 1-2 times. A starter Alejandra kit was requested for you, and it will be delivered to you by mail. It will include a caring case, mirror, scissors and some samples of pouching systems and accessory supplies. If you discharged with VNA services and your insurance is traditional Medicare, your VNA nurse willorder ostomy supplies. Start ordering your supplies after you discharged from VNA. If you have other insurance than tradition Medicare, you may start ordering supplies right away from [place]. Your prescriptions will be sent to [facility] tel: . Follow up ostomy appointment with ostomy nurse- if needed please schedule [facility] [address], [address], [place] [address]. Please call if need to cancel or reschedule at [phone]. Education: as above 03/04/2024 12:05 PM EST * Cathleen Fitch RN - 03/04/2024 10:45 AM EST Problem: Sensory: Acute Pain Goal: Pain level will improve or be tolerable Outcome: Progressing Goal: Ability to develop a pain control plan will improve Outcome: Progressing Goals: Identify possible barriers to meeting goals/advancing plan of care: low h/h - require blood transfusion Stability of the patient: Moderately Stable - Low risk of patient condition declining or worsening End of Shift Summary: Patient alert and oriented. Cooperative with plan of care/meds. Ostomy teaching reinforced with wound nurse. Wound care performed. Able to make needs known. Plan for blood transfusion and radiation treatment today. Care ongoing at this time. 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 She is known to our care and does receive chemo and radiation treatment with Dr. Diaz and Mitchell. She has a known rectal ulceration and has undergone colectomy with colostomy for diversion. She did report low-grade temp unspecified at home yesterday and looks by outpatient med list to have completed oralDoxycycline and Augmentin from 02/09 through 02/14 recent hospitalization of rectal abscess. Workup in the emergency room was performed patient is hypotensive heart rate 84 temperature is 100.1white blood cell count 6.1 sodium low at 128 BUN [address] scan of the abdomen was performed today showing heterogeneous mass in the pelvis involving rectum, vagina and labia consistent with given history of anal cancer possible interval decrease in size noted. Infection was considered less likely at this time malignant lymphadenopathy is present however. Due to low-grade temp respiratory panel was also obtained and negative. Chest x-ray obtained showing no acute active pulmonary process cultures ordered and pending urinalysis does show some blood high epithelial count. Patient does show signs of hypovolemic hyponatremia IV albumin and IV fluids being provided with inpatient hospital stay Functional status prior to presentation: Physically decline states unable to care for herself at home would like a transferred to acute rehab Hospital course Patient is 53 years old female with past medical history significant for COPD, squamous cell carcinoma of the rectum, presented to the hospital with generalized weakness. Patient is on chemotherapy, radiation treatment with Dr. Diaz, Dr. Medrano. Patient was recently admitted for sepsis in the setting of soft tissue infection of the cancerous mass. Patient was treated with IV antibiotics and subsequently discharged on oral antibiotics. # Hypotension, dehydration # Hypovolemic hyponatremia -Patient was hypotensive upon presentation, systolic 58/24. Labs reviewed noted hyponatremia with sodium of 128, subsequently improved. -CT abdomen pelvis obtained upon presentation showed heterogeneous mass in the pelvis involving therectum, vagina, labia consistent with history of cancer. Mild interval decrease in size noted giventhe treatment. Slight interval increase in size and malignant lymphadenopathy. -Patient was seen by ICU filling layer up given the hypotension. -Blood pressure continues to be on the lower side, currently maintained on florinef, midodrin 5 mg tid . dc florinef today and monitor BPs. # Squamous cell carcinoma, rectal mass. # Chronic pain -Patient is on radiation treatment . Continue sitz bath but patient is unable to tolerate.. Overallpatient has poor performance status. Oncologist recommending physical therapy to improve strength to continue treatment.PT eval completed on 03/02/24 recommends home PT # Hypokalemia, hypomagnesemia likely from poor oral intake -Potassium improved with replacement. magnesium supplements upon dc. appreciate sales and marketing intern recommendations # History of schizophrenia -Continue risperidone, Ativan 0.5 mg p.o. twice daily as needed for anxiety. # History of COPD -Continue with advair diskus at home upon dc. # Anemia of chronic disease -Hemoglobin 7.3 . No indication for transfusion # Disposition home PT Total time spent 35 minutes This dictation was performed using voice recognition software. Word substitution may have occurred and may have gone unnoticed and uncorrected * Cathleen Fitch RN - 03/03/2024 12:30 PM EST Problem: Sensory: Acute Pain Goal: Pain level will improve or be tolerable Outcome: Progressing Goal: Ability to develop a pain control plan will improve Outcome: Progressing Goals: Identify possible barriers to meeting goals/advancing plan of care: difficult placement d/t daily radiation Stability of the patient: Moderately Stable - Low risk of patient condition declining or worsening End of Shift Summary: Patient alert and oriented - cooperative with meds and plan of care. Communication with ASL/lip reading. Medicated as needed for pain. See MAR. Dressing changed per orders. Ostomy appliance changed. Patient currently in radiation. Care ongoing * Giana Gooden RN - 03/03/2024 3:39 AM EST Problem: Sensory: Acute Pain Goal: Pain level will improve or be tolerable Outcome: Progressing Goal: Ability to develop a pain control plan will improve Outcome: Progressing Identify possible barriers to meeting goals/advancing plan of care: Radiation M-F Stability of the patient: Moderately Stable - Low risk of patient condition declining or worsening End of Shift Summary: Patient alert and oriented overnight, deaf in both ears. ASL to translate. VSS. Pain mediation given as scheduled with good effect, no additional medications needed. BID dressing changes on malaika rectal wound. * Natalya Zazueta, PT - 03/02/2024 4:00 PM EST Patient: Yanna Tono Age: 53 y.o. Sex: female Dehydration with hyponatremia [facility] Physical Therapy Treatment Ambulation: Walking Assistance: Supervision Device: Rolling walker Distance Ambulated (ft): 20 PLOF: Level of [place]: Independent with mobility and functional transfers Lives With: Alone Receives Help From: (no longer has a REVENUE INSPECTOR) Type of Home: Apartment Home Adaptive Equipment: Walker - rolling, Cane Home Layout: One level Home Access: Stairs to enter with rails DME Needs: PT Discharge Recommendation: Home PT Reason for current recommendation based on assessment: Pt demonstrates adequate mobility to return home with continued home PT to further progress gait, balance, strength and endurance to increase patient's independence in all areas of functional mobility and to reduce the risk for falls. SUBJECTIVE RN approved pt. for PT visit at this time. Pt. was educated on the PT role, understood the benefitsof working with PT, and was agreeable. 03/02/24 1600 PT Last Visit PT Received On 03/02/24 General Family/Caregiver Present No PT Time Calculation PT Start Time 1600 PT Stop Time 1623 PT Time Calculation (min) 23 min Precautions Medical Precautions Fall Risk Safety Interventions Call stack within reach;ID band on;Bed alarm RUE Weight Bearing Status Full LUE Weight Bearing Status Full RLE Weight Bearing Status Full LLE Weight Bearing Status Full Oxygen Therapy Oxygen Therapy None (Room air) Pain Assessment Pain Assessment No/denies pain Pain Frequency Constant/continuous Transfers Chair/Bed to Chair/Bed Transfer Assistance Supervision Ambulation Walking Assistance Supervision Device Rolling walker Distance Ambulated (ft) 20 Stairs Number of Stairs 10 Procedures Procedures Gait Training Gait Training Gait Training Time Entry 23 Gait Training Activity 1 gait with rwalker on level surfaces Gait Training Activity 2 stair training PT Assessment PT Assessment Results Decreased strength;Decreased endurance;Impaired balance;Impaired gait Prognosis Good Evaluation/Treatment Tolerance Patient tolerated treatment well Medical Staff Made Aware Yes Plan PT Discharge Recommendations Home PT PT - OK to Discharge Yes PT Discharge Recommendations: Home PT Time Spent: PT Time Calculation PT Start Time: 1600 PT Stop Time: 1623 PT Time Calculation (min): 23 min Time Entry: PT Therapeutic Procedures Time Entry Gait Training Time Entry: 23 Goals: Encounter Problems Encounter Problems (Active) Template: Physical Therapy Problem: PT Short Term Goals Dates: Start: 02/24/24 Goal: Pt. will Perform transfers, stand by assist with rwalker Dates: Start: 02/24/24 Expected End: 03/04/24 Outcomes Date/Time User Outcome 03/01/24 1439 Natalya Zazueta PT Progressing Goal: Pt. will ambulate x 50 ft with rwalker, stand by assist Dates: Start: 02/24/24 Expected End: 03/04/24 Outcomes Date/Time User Outcome 03/01/24 1439 Natalya Zazueta PT Progressing Encounter Problems (Resolved) There are no resolved problems. EDUCATION Education Documentation Teach information regarding safety precautions, taught by Natalya Zazueta PT at 03/02/2024 4:21 PM. Learner: Patient Readiness: Acceptance Method: Explanation Response: Verbalizes Understanding Comment: pt advised to have someone stand by to assist when going up steps into homerecommended home PT Explain information regarding therapeutic regimen, taught by Natalya Zazueta PT at 03/02/2024 4:21 PM. Learner: Patient Readiness: Acceptance Method: Explanation Response: Verbalizes Understanding Comment: pt advised to have someone stand by to assist when going up steps into homerecommended home PT Teach proper use of assistive devices, taught by Natalya Zazueta PT at 03/02/2024 4:21 PM. Learner: Patient Readiness: Acceptance Method: Explanation Response: Verbalizes Understanding Comment: pt advised to have someone stand by to assist when going up steps into homerecommended home PT Education Comments No comments found. 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 CHARITY PROGRESS NOTE Date: 03/02/2024 Author: Al Gan MD Patient ID: Yanna Power is a 53 y.o. female : 1970 MR#: [id number] SUBJECTIVE Subjective No acute events overnight. Placement is challenging given the need for radiation 5 days a week No new concerns Allergies Patient has no known allergies. Current Medications: ferrous sulfate, 325 mg, oral, Daily fludrocortisone, 0.1 mg, oral, Daily folic acid, 1,000 mcg, oral, Daily magnesium oxide, 400 mg, oral, BID metroNIDAZOLE, , Topical, BID midodrine, 5 mg, oral, TID AC multivitamin, 1 each, oral, Daily nicotine, 1 patch, transdermal, Daily oxyCODONE, 30 mg, oral, q12h polyetheylene glycol, 17 g, oral, Daily risperiDONE, 1 mg, oral, BID risperiDONE, 4 mg, oral, Nightly thiamine, 100 mg, oral, Daily PRN medications: LORazepam, melatonin, ondansetron (ZOFRAN-ODT) disintegrating tablet, oxyCODONE, simethicone OBJECTIVE Vitals: 03/01/24 2043 03/02/24 0316 03/02/24 0808 03/02/24 1153 BP: 97/61 103/61 122/66 89/55 BP Location: Right arm Right arm Right arm Patient Position: Lying Lying Pulse: 90 81 89 86 Resp: 16 16 16 Temp: 37.2 ??C (99 ??F) 36.7 ??C (98.1 ??F) 36.4 ??C (97.6 ??F) TempSrc: Oral Temporal Temporal SpO2: 98% 97% 97% Weight: Height: Physical Exam Constitutional: Appearance: She is ill-appearing. HENT: Head: Normocephalic. Eyes: Conjunctiva/sclera: Conjunctivae normal. Cardiovascular: Rate and Rhythm: Normal rate and regular rhythm. Pulses: Normal pulses. Heart sounds: Normal heart sounds. Pulmonary: Effort: Pulmonary effort is normal. No respiratory distress. Breath sounds: Normal breath sounds. Abdominal: General: Bowel sounds are normal. There is no distension. Palpations: Abdomen is soft. Skin: General: Skin is warm. Neurological: Mental Status: She is alert. Motor: Weakness present. Psychiatric: Mood and Affect: Mood normal. Behavior: Behavior normal. LABS HEMATOLOGY Lab Results Component Value Date WBC 2.5 (L) 03/02/2024 HGB 7.3 (L) 03/02/2024 HCT 23.3 (L) 03/02/2024 MCV 81.2 03/02/2024 PLT 114 (L) 03/02/2024 CHEMISTRY Lab Results Component Value Date GLUCOSE 126 (H) 03/02/2024 NA 136 03/02/2024 K 3.6 03/02/2024 CO2 30 03/02/2024 CL 103 03/02/2024 BUN 4 (L) 03/02/2024 CREATININE 0.40 (L) 03/02/2024 EGFR 120 03/02/2024 CALCIUM 8.5 03/02/2024 MG 1.7 (L) 03/02/2024 PHOS 3.0 03/01/2024 ANIONGAP 3 03/02/2024 Imaging: CT Abdomen Pelvis w Contrast Narrative: CT abdomen and pelvis with contrast Comparison: [...] nephrolithiasis measures 3 mm. There is a Rocha catheter in the bladder, which is decompressed. [...] along the right pelvic sidewall. No aneurysm. [id number] calcified and noncalcified atherosclerotic disease. No ascites. There is infiltration of the subcutaneous fat which may indicate anasarca. There is presacral edema. No acute osseous abnormality. Impression: Impression: Heterogeneous mass in the pelvis involving [...] by: Danielle Thompson MD on 02/17/2024 17:22:27 XR Chest 1 View Narrative: History: Generalized weakness. Personal history of anorectal [...] are sharp. Cholecystectomy clips are again seen. Impression: Impression: No active pulmonary process identified. Telerad PA ([id number]) -------- FINAL REPORT -------- Dictated By: Mae Oreilly Dictated Date: 02/17/2024 16:16 ET Assigned Physician: Mae Oreilly Reviewed and Electronically Signed By: Mae Oreilly Signed Date: 02/17/2024 16:17 ET Workstation ID: [id number] Transcribed By: Self Edit Transcribed Date: 02/17/2024 16:16 ET ASSESSMENT & PLAN Assessment/Plan Principal Problem: Dehydration with hyponatremia No problem-specific Assessment & Plan notes found for this encounter. Patient is 53 years old female with past medical history significant for COPD, squamous cell carcinoma of the rectum, presented to the hospital with generalized weakness. Patient is on chemotherapy, radiation treatment with Dr. Diaz, Dr. Medrano. Patient was recently admitted for sepsis in the setting of soft tissue infection of the cancerous mass. Patient was treated with IV antibiotics and subsequently discharged on oral antibiotics. # Hypotension, dehydration # Hypovolemic hyponatremia -Patient was hypotensive upon presentation, systolic 58/24. Labs reviewed noted hyponatremia with sodium of 128, subsequently improved. -CT abdomen pelvis obtained upon presentation showed heterogeneous mass in the pelvis involving therectum, vagina, labia consistent with history of cancer. Mild interval decrease in size noted giventhe treatment. Slight interval increase in size and malignant lymphadenopathy. -Patient was seen by ICU filling layer up given the hypotension. Recommended to increase the dose of oral midodrine to 10 mg 3 times daily, hydrocortisone 50 mg IV 3 times daily and Florinef 0.1 mg p.o. daily. -Blood pressure on the lower side, on Florinef 0.1 mg p.o. daily, midodrine 5 mg 3 times daily. Received IV fluids yesterday 03/01/24. # Squamous cell carcinoma, rectal mass. # Chronic pain -Patient is on radiation treatment while in the hospital. Continue sitz bath but patient is unable to tolerate.. Patient will need short-term rehab placement for intensive physical therapy. Overall patient has poor performance status. Oncologist recommending physical therapy to improve strength to continue treatment. # Hypokalemia, hypomagnesemia likely from poor oral intake -Potassium improved with replacement. Monitor levels closely. -Continue oral magnesium supplements -Nutrition consult # History of schizophrenia -Continue risperidone, Ativan 0.5 mg p.o. twice daily as needed for anxiety. # History of COPD -Continue formoterol, budesonide nebulization. # Anemia of chronic disease -Hemoglobin 7.3 today. No indication for transfusion. Monitor for bleeding episodes. # Disposition -Need rehab placement. Stable for transfer. Placement is challenging given the need for radiation 5 days a week Total time spent 30 minutes This dictation was performed using voice recognition software. Word substitution may have occurred and may have gone unnoticed and uncorrected * Giana Gooden RN - 03/02/2024 4:05 AM EST Problem: Sensory: Acute Pain Goal: Pain level will improve or be tolerable Outcome: Progressing Goal: Ability to develop a pain control plan will improve Outcome: Progressing Identify possible barriers to meeting goals/advancing plan of care: Daily M-F Radiation & Lg perirectal wound Stability of the patient: Moderately Unstable - Medium risk of patient condition declining or worsening End of Shift Summary: Patient pleasant overnight. Medicated with scheduled pain medications with good effect, no further medication was needed. VSS. BP steady in low 100's/60's. BID dressing changes of perirectal wound. Patient tolerated well. 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 CHARITY PROGRESS NOTE Date: 03/01/2024 Author: Al Gan MD Patient ID: Yanna Power is a 53 y.o. female : 1970 MR#: [id number] SUBJECTIVE Subjective Patient seen evaluated this morning No acute events overnight. Placement is challenging given the need for radiation 5 days a week Patient's appetite is poor, not eating much. Blood pressure on the lower side today. Allergies Patient has no known allergies. Current Medications: ferrous sulfate, 325 mg, oral, Daily fludrocortisone, 0.1 mg, oral, Daily folic acid, 1,000 mcg, oral, Daily magnesium oxide, 400 mg, oral, BID metroNIDAZOLE, , Topical, BID midodrine, 5 mg, oral, TID AC multivitamin, 1 each, oral, Daily nicotine, 1 patch, transdermal, Daily oxyCODONE, 30 mg, oral, q12h polyetheylene glycol, 17 g, oral, Daily risperiDONE, 1 mg, oral, BID risperiDONE, 4 mg, oral, Nightly thiamine, 100 mg, oral, Daily PRN medications: LORazepam, melatonin, ondansetron (ZOFRAN-ODT) disintegrating tablet, oxyCODONE, simethicone OBJECTIVE Vitals: 03/01/24 0858 03/01/24 0921 03/01/24 1120 03/01/24 1237 BP: (!) 84/48 84/55 (!) 82/36 97/56 BP Location: Right arm Left arm Left arm Right arm Patient Position: Lying Lying Lying Lying Pulse: 89 100 81 81 Resp: 17 Temp: 36.6 ??C (97.8 ??F) TempSrc: Temporal SpO2: 97% 97% 97% Weight: Height: Physical Exam Constitutional: Appearance: She is ill-appearing. HENT: Head: Normocephalic. Eyes: Conjunctiva/sclera: Conjunctivae normal. Cardiovascular: Rate and Rhythm: Normal rate and regular rhythm. Pulses: Normal pulses. Heart sounds: Normal heart sounds. Pulmonary: Effort: Pulmonary effort is normal. No respiratory distress. Breath sounds: Normal breath sounds. Abdominal: General: Bowel sounds are normal. There is no distension. Palpations: Abdomen is soft. Skin: General: Skin is warm. Neurological: Mental Status: She is alert. Motor: Weakness present. Psychiatric: Mood and Affect: Mood normal. Behavior: Behavior normal. LABS HEMATOLOGY Lab Results Component Value Date WBC 3.4 (L) 03/01/2024 HGB 7.3 (L) 03/01/2024 HCT 23.5 (L) 03/01/2024 MCV 79.7 03/01/2024 PLT 112 (L) 03/01/2024 CHEMISTRY Lab Results Component Value Date GLUCOSE 109 (H) 03/01/2024 NA 131 (L) 03/01/2024 K 3.7 03/01/2024 CO2 28 03/01/2024 CL 98 03/01/2024 BUN 5 03/01/2024 CREATININE 0.46 (L) 03/01/2024 EGFR 116 03/01/2024 CALCIUM 7.9 (L) 03/01/2024 MG 1.8 (L) 03/01/2024 PHOS 3.0 03/01/2024 ANIONGAP 5 03/01/2024 Imaging: CT Abdomen Pelvis w Contrast Narrative: CT abdomen and pelvis with contrast Comparison: [...] nephrolithiasis measures 3 mm. There is a Rocha catheter in the bladder, which is decompressed. [...] along the right pelvic sidewall. No aneurysm. [id number] calcified and noncalcified atherosclerotic disease. No ascites. There is infiltration of the subcutaneous fat which may indicate anasarca. There is presacral edema. No acute osseous abnormality. Impression: Impression: Heterogeneous mass in the pelvis involving [...] by: Danielle Thompson MD on 02/17/2024 17:22:27 XR Chest 1 View Narrative: History: Generalized weakness. Personal history of anorectal [...] are sharp. Cholecystectomy clips are again seen. Impression: Impression: No active pulmonary process identified. Telerad SONU ([id number]) -------- FINAL REPORT -------- Dictated By: Mae Oreilly Dictated Date: 02/17/2024 16:16 ET Assigned Physician: Mae Oreilly Reviewed and Electronically Signed By: Mae Oreilly Signed Date: 02/17/2024 16:17 ET Workstation ID: [id number] Transcribed By: Self Edit Transcribed Date: 02/17/2024 16:16 ET ASSESSMENT & PLAN Assessment/Plan Principal Problem: Dehydration with hyponatremia No problem-specific Assessment & Plan notes found for this encounter. Patient is 53 years old female with past medical history significant for COPD, squamous cell carcinoma of the rectum, presented to the hospital with generalized weakness. Patient is on chemotherapy, radiation treatment with Dr. Diaz, Dr. Medrano. Patient was recently admitted for sepsis in the setting of soft tissue infection of the cancerous mass. Patient was treated with IV antibiotics and subsequently discharged on oral antibiotics. # Hypotension, dehydration # Hypovolemic hyponatremia -Patient was hypotensive upon presentation, systolic 58/24. Labs reviewed noted hyponatremia with sodium of 128, subsequently improved. -CT abdomen pelvis obtained upon presentation showed heterogeneous mass in the pelvis involving therectum, vagina, labia consistent with history of cancer. Mild interval decrease in size noted giventhe treatment. Slight interval increase in size and malignant lymphadenopathy. -Patient was seen by ICU filling layer up given the hypotension. Recommended to increase the dose of oral midodrine to 10 mg 3 times daily, hydrocortisone 50 mg IV 3 times daily and Florinef 0.1 mg p.o. daily. -Blood pressure low today, on Florinef 0.1 mg p.o. daily, midodrine 5 mg 3 times daily. IV fluid bolus, maintenance today. # Squamous cell carcinoma, rectal mass. # Chronic pain -Patient is on radiation treatment while in the hospital. Continue sitz bath but patient is unable to tolerate.. Patient will need short-term rehab placement for intensive physical therapy. Overall patient has poor performance status. Oncologist recommending physical therapy to improve strength to continue treatment. # Hypokalemia, hypomagnesemia likely from poor oral intake -Potassium, improved with replacement. Monitor levels closely. -Continue oral magnesium supplements # History of schizophrenia -Continue risperidone, Ativan 0.5 mg p.o. twice daily as needed for anxiety. # History of COPD -Continue formoterol, budesonide nebulization. # Anemia of chronic disease -Hemoglobin 7.3 today. No indication for transfusion. Monitor for bleeding episodes. # Disposition -Need rehab placement. Stable for transfer. Placement is challenging given the need for radiation 5 days a week Total time spent 35 minutes This dictation was performed using voice recognition software. Word substitution may have occurred and may have gone unnoticed and uncorrected * Shannon Ram RN - 02/29/2024 10:59 PM EST Goals: Identify possible barriers to meeting goals/advancing plan of care: awaiting snf placement Stability of the patient: Moderately Stable - Low risk of patient condition declining or worsening End of Shift Summary: vss resting comfortably pain controlled * Duane Guaman RN - 02/29/2024 6:52 PM EST Problem: Sensory: Acute Pain Goal: Pain level will improve or be tolerable Outcome: Progressing Goal: Ability to develop a pain control plan will improve Outcome: Progressing Problem: Cognitive: Acute Pain Goal: Expressions of feelings of enhanced comfort will increase Outcome: Progressing Problem: Cognitive: Rogers Anders Fall Risk Goal: Last Known Fall Outcome: Progressing Goal: Mobility requiring assistance of person or device Outcome: Progressing Goal: Dizziness Outcome: Progressing Goal: Medications Outcome: Progressing Goal: Mental Status/LOC/Awareness Outcome: Progressing Goal: Toileting Needs Outcome: Progressing Goal: Volume and Electrolyte Status Outcome: Progressing Goal: Communication/Sensory Outcome: Progressing Goal: Behavior Outcome: Progressing Problem: Skin Integrity: Pressure Injury Actual or Risk of Goal: Will not develop new pressure injury Outcome: Progressing Goal: Skin integrity will improve Outcome: Progressing Goal: Risk for impaired skin integrity will decrease Outcome: Progressing Problem: Activity:Pressure Injury Actual or Risk of Goal: Mobility will improve Outcome: Progressing Problem: Nutritional:Pressure Injury Actual or Risk of Goal: Nutritional status will improve Outcome: Progressing Problem: Skin Integrity: Skin Integrity Impairment Goal: Skin integrity will improve Outcome: Progressing Goals: Accepting facility for rehab. Identify possible barriers to meeting goals/advancing plan of care: Insurance authorization. Stability of the patient: Moderately Stable - Low risk of patient condition declining or worsening End of Shift Summary: Comfort maintained with PRN pain meds & scheduled oxycontin. Appetite fair, pt drank ensure drinks with each meal, and milkshake brought in by sister. Delorisey catheter draining well. Ostomy appliance changed for leaking stool. Perianal wound changed per orders twice this shift. * Al Gan MD - 02/29/2024 2:01 PM EST Images from the original note were not included. [facility] PROGRESS NOTE Date: 02/29/2024 Author: Al Gan MD Patient ID: Yanna Power is a 53 y.o. female : 1970 MR#: [id number] SUBJECTIVE Subjective Patient seen evaluated this morning No acute events overnight. Placement is challenging given the need for radiation 5 days a week Allergies Patient has no known allergies. Current Medications: ferrous sulfate, 325 mg, oral, Daily fludrocortisone, 0.1 mg, oral, Daily folic acid, 1,000 mcg, oral, Daily magnesium oxide, 400 mg, oral, BID metroNIDAZOLE, , Topical, BID midodrine, 5 mg, oral, TID AC multivitamin, 1 each, oral, Daily nicotine, 1 patch, transdermal, Daily oxyCODONE, 30 mg, oral, q12h polyetheylene glycol, 17 g, oral, Daily risperiDONE, 1 mg, oral, BID risperiDONE, 4 mg, oral, Nightly thiamine, 100 mg, oral, Daily PRN medications: LORazepam, melatonin, ondansetron (ZOFRAN-ODT) disintegrating tablet, oxyCODONE, simethicone OBJECTIVE Vitals: 02/28/24201602/29/24 0327 02/29/24 0824 02/29/24 1212 BP: 104/66 (!) 91/48 (!) 93/47 92/53 BP Location: Left arm Patient Position: Lying Pulse: 92 91 94 88 Resp: 16 16 16 Temp: 36.2 ??C (97.1 ??F) 36.3 ??C (97.3 ??F) 36.9 ??C (98.4 ??F) TempSrc: Temporal SpO2: 98% 96% 94% 97% Weight: Height: Physical Exam Constitutional: Appearance: She is ill-appearing. HENT: Head: Normocephalic. Eyes: Conjunctiva/sclera: Conjunctivae normal. Cardiovascular: Rate and Rhythm: Normal rate and regular rhythm. Pulses: Normal pulses. Heart sounds: Normal heart sounds. Pulmonary: Effort: Pulmonary effort is normal. No respiratory distress. Breath sounds: Normal breath sounds. Abdominal: General: Bowel sounds are normal. There is no distension. Palpations: Abdomen is soft. Skin: General: Skin is warm. Neurological: Mental Status: She is alert. Motor: Weakness present. Psychiatric: Mood and Affect: Mood normal. Behavior: Behavior normal. LABS HEMATOLOGY Lab Results Component Value Date WBC 2.9 (L) 02/28/2024 HGB 7.5 (L) 02/29/2024 HCT 24.0 (L) 02/29/2024 MCV 79.9 02/28/2024 PLT 99 (L) 02/28/2024 CHEMISTRY Lab Results Component Value Date GLUCOSE 107 (H) 02/28/2024 NA 134 02/28/2024 K 4.1 02/28/2024 CO2 28 02/28/2024 CL 99 02/28/2024 BUN 3 (L) 02/28/2024 CREATININE 0.36 (L) 02/28/2024 EGFR 123 02/28/2024 CALCIUM 7.8 (L) 02/28/2024 MG 2.1 02/28/2024 PHOS 2.5 02/23/2024 ANIONGAP 7 02/28/2024 Imaging: CT Abdomen Pelvis w Contrast Narrative: CT abdomen and pelvis with contrast Comparison: [...] nephrolithiasis measures 3 mm. There is a Rocha catheter in the bladder, which is decompressed. [...] along the right pelvic sidewall. No aneurysm. [id number] calcified and noncalcified atherosclerotic disease. No ascites. There is infiltration of the subcutaneous fat which may indicate anasarca. There is presacral edema. No acute osseous abnormality. Impression: Impression: Heterogeneous mass in the pelvis involving [...] by: Danielle Thompson MD on 02/17/2024 17:22:27 XR Chest 1 View Narrative: History: Generalized weakness. Personal history of anorectal [...] are sharp. Cholecystectomy clips are again seen. Impression: Impression: No active pulmonary process identified. Telerad SONU ([id number]) -------- FINAL REPORT -------- Dictated By: Mae Oreilly Dictated Date: 02/17/2024 16:16 ET Assigned Physician: Mae Oreilly Reviewed and Electronically Signed By: Mae Oreilly Signed Date: 02/17/2024 16:17 ET Workstation ID: [id number] Transcribed By: Self Edit Transcribed Date: 02/17/2024 16:16 ET ASSESSMENT & PLAN Assessment/Plan Principal Problem: Dehydration with hyponatremia No problem-specific Assessment & Plan notes found for this encounter. Patient is 53 years old female with past medical history significant for COPD, squamous cell carcinoma of the rectum, presented to the hospital with generalized weakness. Patient is on chemotherapy, radiation treatment with Dr. Diaz, Dr. Medrano. Patient was recently admitted for sepsis in the setting of soft tissue infection of the cancerous mass. Patient was treated with IV antibiotics and subsequently discharged on oral antibiotics. # Hypotension, dehydration # Hypovolemic hyponatremia -Patient was hypotensive upon presentation, systolic 58/24. Labs reviewed noted hyponatremia with sodium of 128, subsequently improved. -CT abdomen pelvis obtained upon presentation showed heterogeneous mass in the pelvis involving therectum, vagina, labia consistent with history of cancer. Mild interval decrease in size noted giventhe treatment. Slight interval increase in size and malignant lymphadenopathy. -Patient was seen by ICU filling layer up given the hypotension. Recommended to increase the dose of oral midodrine to 10 mg 3 times daily, hydrocortisone 50 mg IV 3 times daily and Florinef 0.1 mg p.o. daily. -Blood pressure is in the range systolic 95 to 100s. On Florinef 0.1 mg p.o. daily, midodrine 5 mg 3 times daily # Squamous cell carcinoma, rectal mass. # Chronic pain -Patient is on radiation treatment while in the hospital. Continue sitz bath but patient is unable to tolerate.. Patient will need short-term rehab placement for intensive physical therapy. Overall patient has poor performance status. Oncologist recommending physical therapy to improve strength to continue treatment. # Hypokalemia, hypomagnesemia likely from poor oral intake -Potassium, magnesium levels improved with replacement. Monitor levels closely. # History of schizophrenia -Continue risperidone, Ativan 0.5 mg p.o. twice daily as needed for anxiety. # History of COPD -Continue formoterol, budesonide nebulization. # Anemia of chronic disease -Hemoglobin 7.5 today. No indication for transfusion. Monitor for bleeding episodes. # Disposition -Need rehab placement. Stable for transfer. Placement is challenging given the need for radiation 5 days a week Total time spent 30 minutes doing chart review, interviewing patient, gathering information, performing physical exam, formulating plan, explaining management plan to patient, , coordinating care with RN, documentation and placing orders. This dictation was performed using voice recognition software. Word substitution may have occurred and may have gone unnoticed and uncorrected * Shannon Ram RN - 02/28/2024 10:20 PM EST Problem: Sensory: Acute Pain Goal: Pain level will improve or be tolerable Outcome: Progressing Goal: Ability to develop a pain control plan will improve Outcome: Progressing Goals: Identify possible barriers to meeting goals/advancing plan of care: snf placement Stability of the patient: Moderately Stable - Low risk of patient condition declining or worsening End of Shift Summary: vss pain controlled * Kandi Chen RN - 02/28/2024 5:03 PM EST Goals: Identify possible barriers to meeting goals/advancing plan of care: wound/weakness/oncology mgmt Stability of the patient: Moderately Stable - Low risk of patient condition declining or worsening End of Shift Summary: 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 Adequate pain control. Wound mgmt. Ostomy changed. Pt resting in isotour bed. Encouraged po. * Al Gan MD - 02/28/2024 2:22 PM EST Images from the original note were not included. CHARITY PROGRESS NOTE Date: 02/28/2024 Author: Al Gan MD Patient ID: Yanna Power is a 53 y.o. female : 1970 MR#: [id number] SUBJECTIVE Subjective Patient seen evaluated this morning No acute events overnight. Interview was done with help of food service supervisor. Patient reports pain but otherwise has no other complaints. Awaiting to go to rehab. Allergies Patient has no known allergies. Current Medications: ferrous sulfate, 325 mg, oral, Daily fludrocortisone, 0.1 mg, oral, Daily folic acid, 1,000 mcg, oral, Daily magnesium oxide, 400 mg, oral, BID metroNIDAZOLE, , Topical, BID midodrine, 5 mg, oral, TID AC multivitamin, 1 each, oral, Daily nicotine, 1 patch, transdermal, Daily oxyCODONE, 30 mg, oral, q12h polyetheylene glycol, 17 g, oral, Daily risperiDONE, 1 mg, oral, BID risperiDONE, 4 mg, oral, Nightly thiamine, 100 mg, oral, Daily PRN medications: LORazepam, melatonin, ondansetron (ZOFRAN-ODT) disintegrating tablet, oxyCODONE, simethicone OBJECTIVE Vitals: 02/27/24 2028 02/28/24 0059 02/28/24 0801 02/28/24 1242 BP: 111/72 110/59 100/60 102/64 BP Location: Right arm Right arm Left arm Patient Position: Lying Lying Pulse: 88 89 77 74 Resp: Temp: 36.8 ??C (98.2 ??F) 36.7 ??C (98 ??F) 36.1 ??C (97 ??F) TempSrc: Temporal Temporal Temporal SpO2: 97% 96% 97% Weight: Height: Physical Exam Constitutional: Appearance: She is ill-appearing. HENT: Head: Normocephalic. Eyes: Conjunctiva/sclera: Conjunctivae normal. Cardiovascular: Rate and Rhythm: Normal rate and regular rhythm. Pulses: Normal pulses. Heart sounds: Normal heart sounds. Pulmonary: Effort: Pulmonary effort is normal. No respiratory distress. Breath sounds: Normal breath sounds. Abdominal: General: Bowel sounds are normal. There is no distension. Palpations: Abdomen is soft. Skin: General: Skin is warm. Neurological: Mental Status: She is alert. Motor: Weakness present. Psychiatric: Mood and Affect: Mood normal. Behavior: Behavior normal. LABS HEMATOLOGY Lab Results Component Value Date WBC 2.9 (L) 02/28/2024 HGB 7.1 (L) 02/28/2024 HCT 22.7 (L) 02/28/2024 MCV 79.9 02/28/2024 PLT 99 (L) 02/28/2024 CHEMISTRY Lab Results Component Value Date GLUCOSE 107 (H) 02/28/2024 NA 134 02/28/2024 K 4.1 02/28/2024 CO2 28 02/28/2024 CL 99 02/28/2024 BUN 3 (L) 02/28/2024 CREATININE 0.36 (L) 02/28/2024 EGFR 123 02/28/2024 CALCIUM 7.8 (L) 02/28/2024 MG 2.1 02/28/2024 PHOS 2.5 02/23/2024 ANIONGAP 7 02/28/2024 Imaging: CT Abdomen Pelvis w Contrast Narrative: CT abdomen and pelvis with contrast Comparison: [...] nephrolithiasis measures 3 mm. There is a Rocha catheter in the bladder, which is decompressed. [...] along the right pelvic sidewall. No aneurysm. [id number]-[id number] calcified and noncalcified atherosclerotic disease. No ascites. There is infiltration of the subcutaneous fat which may indicate anasarca. There is presacral edema. No acute osseous abnormality. Impression: Impression: Heterogeneous mass in the pelvis involving [...] by: Danielle Thompson MD on 02/17/2024 17:22:27 XR Chest 1 View Narrative: History: Generalized weakness. Personal history of anorectal [...] are sharp. Cholecystectomy clips are again seen. Impression: Impression: No active pulmonary process identified. [employer] ASCENCIO ([id number]) -------- FINAL REPORT -------- Dictated By: Mae Oreilly Dictated Date: 02/17/2024 16:16 ET Assigned Physician: Mae Oreilly Reviewed and Electronically Signed By: Mae Oreilly Signed Date: 02/17/2024 16:17 ET Workstation ID: [id number] Transcribed By: Self Edit Transcribed Date: 02/17/2024 16:16 ET ASSESSMENT & PLAN Assessment/Plan Principal Problem: Dehydration with hyponatremia No problem-specific Assessment & Plan notes found for this encounter. Patient is 53 years old female with past medical history significant for COPD, squamous cell carcinoma of the rectum, presented to the hospital with generalized weakness. Patient is on chemotherapy, radiation treatment with Dr. Diaz, Dr. Medrano. Patient was recently admitted for sepsis in the setting of soft tissue infection of the cancerous mass. Patient was treated with IV antibiotics and subsequently discharged on oral antibiotics. # Hypotension, dehydration # Hypovolemic hyponatremia -Patient was hypotensive upon presentation, systolic 58/24. Labs reviewed noted hyponatremia with sodium of 128, subsequently improved. -CT abdomen pelvis obtained upon presentation showed heterogeneous mass in the pelvis involving therectum, vagina, labia consistent with history of cancer. Mild interval decrease in size noted giventhe treatment. Slight interval increase in size and malignant lymphadenopathy. -Patient was seen by ICU filling layer up given the hypotension. Recommended to increase the dose of oral midodrine to 10 mg 3 times daily, hydrocortisone 50 mg IV 3 times daily and Florinef 0.1 mg p.o. daily. -Blood pressure is in the range systolic 95 to 100s. On Florinef 0.1 mg p.o. daily, midodrine 5 mg 3 times daily # Squamous cell carcinoma, rectal mass. # Chronic pain -Patient is on radiation treatment while in the hospital. Continue sitz bath but patient is unable to tolerate.. Patient will need short-term rehab placement for intensive physical therapy. Overall patient has poor performance status. Oncologist recommending physical therapy to improve strength to continue treatment. # Hypokalemia, hypomagnesemia likely from poor oral intake -Potassium, magnesium levels improved today with replacement. Monitor levels closely. # History of schizophrenia -Continue risperidone, Ativan 0.5 mg p.o. twice daily as needed for anxiety. # History of COPD -Continue formoterol, budesonide nebulization. # Anemia of chronic disease -Hemoglobin 7.1 today. No indication for transfusion. Monitor for bleeding episodes. # Disposition -Need rehab placement. Stable for transfer. Total time spent 38 minutes doing chart review, interviewing patient, gathering information, performing physical exam, formulating plan, explaining management plan to patient, , coordinating care with RN, documentation and placing orders. This dictation was performed using voice recognition software. Word substitution may have occurred and may have gone unnoticed and uncorrected * Shannon Ram RN - 02/27/2024 11:42 PM EST Problem: Sensory: Acute Pain Goal: Pain level will improve or be tolerable Outcome: Progressing Goal: Ability to develop a pain control plan will improve Outcome: Progressing Goals: Identify possible barriers to meeting goals/advancing plan of care electrolytes imbalace Stability of the patient: Moderately Stable - Low risk of patient condition declining or worsening End of Shift Summary: resting comfortably vss tolerating po fluids * Natalya Zazueta PT - 02/27/2024 2:34 PM EST Physical Therapy Therapy session was attempted for May by Natalya Zazueta PT on 02/27/2024. The patient was unable to be seen for the following reason(s): Out of room at a medical procedure Plan for return visit: As soon as possible * Alyson Pettit RN - 02/27/2024 2:25 PM EST Images from the original note were not included. Wound Care Initial Consult Visit Date: 02/27/2024 Patient Name: Yanna Power Date of : 1970 Reason for Consult: Wound RN Consult received to assess perianal area wound related to malignancy and recommend topical treatment. Wound History: Patient Active Problem List Diagnosis Date Noted Date Diagnosed Dehydration with hyponatremia 02/17/2024 Rectal mass 02/05/2024 Schizophrenia ([facility]) 12/25/2023 Primary squamous cell carcinoma of anus ([facility]) 12/16/2023 Congenital deafness 03/21/2023 COPD (chronic obstructive pulmonary disease) ([facility]) 03/21/2023 Low vitamin D level 03/21/2023 Nicotine dependence 03/21/2023 Nutritional Status: Pertinent Labs: Albumin Date Value Ref Range Status 02/17/2024 1.7 (L) 3.2 - 5.0 g/dL Final WBC Date Value Ref Range Status 02/27/2024 2.5 (L) 4.8 - 10.8 K/mcL Final WBC, Urine Date Value Ref Range Status 02/17/2024 4.0 0 - 4 /HPF Final Glucose POCT Date Value Ref Range Status 02/05/2024 115 (H) 70 - 100 mg/dL Final Wound Assessment: Wound Other (comment) Perianal (Active) Wound Image 02/27/24947 Wound Bed Tissue Assessment Red;[place];Sloughing;Fibrinous;Yellow 02/27/24947 Malaika-Wound Assessment [place] 02/27/24742 Wound Length (cm) 9 cm 02/27/24947 Wound Width (cm) 4 cm 02/27/24947 Wound Surface Area (cm^2) 36 cm^2 02/27/24947 Wound Depth (cm) 7 cm 02/27/24947 Wound Volume (cm^3) 252 cm^3 02/27/24947 Drainage Description Purulent;Foul 02/27/24947 Drainage Amount Large 02/27/24947 Treatments Cleansed 02/27/24947 Dressing Alginate;Other (Comment) 02/27/24947 Dressing Changed Changed 02/27/24947 Dressing Status Other (Comment) 02/27/24742 State of Healing Non-healing 02/27/24947 Support Surface: Patient is on Isotour bed. Her Leon scale score is 14 and at moderate risk. Wound Summary Assessment: Wound is a large cavity and not able to fully probe the wound due to pain. Wound with large amount of yellow creamy exudate with odor. Wound bed is yellow fibrinous with some pink. Wound Plan: Recommending Flagyl ointment to reduce odor and easier application would be in cream option then crushed tablet. Will check with Dr. Stack and pharmacy if cream option is available. Pack lightly with alginate ag. Apply absorbent pad and depends. May need to change BID vs daily. 02/27/2024 2:25 PM EST * Bertha Tavares OT - 02/27/2024 2:00 PM EST Therapy session was attempted for Yanna Power by Bertha Tavares OT on 02/27/2024. The patient was unable to be seen for the following reason(s): Out of room at a medical procedure. Pt at radiology at this time. Plan for return visit: Tomorrow * Tono Stack MD - 02/27/2024 12:30 PM EST Images from the original note were not included. CHARITY PROGRESS NOTE Date: 02/27/2024 Author: Tono Stack MD Patient ID: Yanna Power is a 53 y.o. female : 1970 MR#: [id number] ASSESSMENT & PLAN Assessment/Plan Principal Problem: Dehydration with hyponatremia Yanna Power is a 53 y.o. female who has PMH of COPD/asthma, recently diagnosed squamous cell analcarcinoma, congenital deafness, schizophrenia. Patient presented to ED with complaints of weakness and malaise. She also reported low- grade temperature at home. CT abdomen showed heterogeneous mass in the pelvis involving rectum, vagina and labia. Chest x-ray showed no acute process. Patient was hypotensive, temperature 100.1 ??F, WBC of 6.1, sodium 128, creatinine 0.5. 1. Hypotension-resolved BP stable. Continues on midodrine. 2. 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 Patient has started chemoradiation but has poor performance status. Oncologist recommends physical therapy to improve her strength so she can continue treatment. She has malodorous vaginal/rectal discharge. Continues on radiation treatment while in hospital. Patient should be doing sitz bath's, not able to tolerate. Pending short-term rehab placement for intensive physical therapy. 3. Anemia Hemoglobin remains low but stable at 7.1. No indication for transfusion at this time. Will continueto follow. 4. Hypokalemia Potassium low at 2.6. Potassium replacement ordered. 5. Hypomagnesemia Magnesium reduced at 1.3. Oral and IV magnesium replacement ordered. 6. Malnutrition Nutrition consult and supplements ordered. SUBJECTIVE Subjective Patient was seen in bed. Interviewed with the use of landcare facilitator. Patient continues to complainof lower pelvic pain and weakness. She has been trying to exercise but complains of persistent weakness. She denied nausea, vomiting, fever, chills, chest pain, shortness of breath. Allergies Patient has no known allergies. Current Medications: ferrous sulfate, 325 mg, oral, Daily fludrocortisone, 0.1 mg, oral, Daily folic acid, 1,000 mcg, oral, Daily magnesium oxide, 400 mg, oral, BID magnesium sulfate, 2 g, intravenous, q2h midodrine, 5 mg, oral, TID AC multivitamin, 1 each, oral, Daily nicotine, 1 patch, transdermal, Daily oxyCODONE, 30 mg, oral, q12h polyetheylene glycol, 17 g, oral, Daily potassium chloride oral extended release, 40 mEq, oral, TID risperiDONE, 1 mg, oral, BID risperiDONE, 4 mg, oral, Nightly thiamine, 100 mg, oral, Daily PRN medications: LORazepam, melatonin, ondansetron (ZOFRAN-ODT) disintegrating tablet, oxyCODONE, simethicone OBJECTIVE Vitals: 02/26/24 2002 02/27/24 0302 02/27/24 0318 02/27/24 0757 BP: 101/52 (!) 89/46 93/57 (!) 92/48 BP Location: Left arm Right arm Right arm Right arm Patient Position: Lying Lying Lying Lying Pulse: 89 88 79 Resp: 16 16 15 Temp: 36.6 ??C (97.8 ??F) 36.8 ??C (98.2 ??F) 36.7 ??C (98 ??F) TempSrc: Temporal Temporal Temporal SpO2: 97% 93% 94% Weight: Height: Physical Exam Vitals and nursing note reviewed. Constitutional: General: She is not in acute distress. HENT: Head: Normocephalic and atraumatic. Nose: Nose normal. Mouth/Throat: Mouth: Mucous membranes are moist. Eyes: Extraocular Movements: Extraocular movements intact. Pupils: Pupils are equal, round, and reactive to light. Cardiovascular: Rate and Rhythm: Normal rate and regular rhythm. Pulmonary: Effort: Pulmonary effort is normal. No respiratory distress. Breath sounds: No wheezing or rales. Abdominal: General: There is no distension. Palpations: Abdomen is soft. Tenderness: There is abdominal tenderness (Suprapubic tenderness). There is no guarding or rebound. Comments: Colostomy present Genitourinary: Comments: Malodorous vaginal discharge Musculoskeletal: General: No swelling or deformity. Skin: General: Skin is warm and dry. Neurological: General: No focal deficit present. Mental Status: She is alert. Mental status is at baseline. LABS HEMATOLOGY Lab Results Component Value Date WBC 2.5 (L) 02/27/2024 HGB 7.1 (L) 02/27/2024 HCT 22.9 (L) 02/27/2024 MCV 79.8 02/27/2024 PLT 98 (L) 02/27/2024 CHEMISTRY Lab Results Component Value Date GLUCOSE 87 02/27/2024 NA 138 02/27/2024 K 2.6 (LL) 02/27/2024 CO2 25 02/27/2024 CL 108 02/27/2024 BUN 2 (L) 02/27/2024 CREATININE 0.19 (L) 02/27/2024 EGFR 144 02/27/2024 CALCIUM 6.4 (L) 02/27/2024 MG 1.3 (L) 02/27/2024 PHOS 2.5 02/23/2024 ANIONGAP 5 02/27/2024 No results found for this or any previous visit (from the past 168 hour(s)). Imaging: CT Abdomen Pelvis w Contrast Narrative: CT abdomen and pelvis with contrast Comparison: CT - CT ABD PEL W CONTRAST - 12/26/24 20:18 EST Findings: No consolidation at the lung bases. Unchanged pulmonary nodules measure up to 3 mm; follow up as clinically indicated. Trace pleural fluid. Status post cholecystectomy. The spleen is enlarged, measuring 14.9 cm in craniocaudal dimension. Subcentimeter low attenuating lesions which are too small to characterize in the left kidney. No hydronephrosis. Left nephrolithiasis measures 3 mm. There is a Rocha catheter in the bladder, which is decompressed. [...] along the right pelvic sidewall. No aneurysm. [id number] calcified and noncalcified atherosclerotic disease. No ascites. There is infiltration of the subcutaneous fat which may indicate anasarca. There is presacral edema. No acute osseous abnormality. Impression: Impression: Heterogeneous mass in the pelvis involving [...] by: Danielle Thompson MD on 02/17/2024 17:22:27 XR Chest 1 View Narrative: History: Generalized weakness. Personal history of anorectal [...] are sharp. Cholecystectomy clips are again seen. Impression: Impression: No active pulmonary process identified. [place] ([id number]) -------- FINAL REPORT -------- Dictated By: Mae Oreilly Dictated Date: 02/17/2024 16:16 ET Assigned Physician: Mae Oreilly Reviewed and Electronically Signed By: Mae Oreilly Signed Date: 02/17/2024 16:17 ET Workstation ID: [id number] Transcribed By: Self Edit Transcribed Date: 02/17/2024 16:16 ET DAILY CARE CHECKLIST Length of Stay: 02d 22h 58m VTE Prophylaxis: Enoxaparin Resuscitation: Full Code - Default IV Access: Chest port Tubes, Catheters, Devices: None PCP: Sneha Li MD Disposition: Pending short-term rehab placement. Patient sister Shaina was called for update. Tono Stack MD 02/27/24 12:30 PM EST * Callie Spears RN - 02/27/2024 11:32 AM EST OWEN: 03/02 - no accepting STR Barriers: malodorous wound, RN initiated wound care consult, Needs M-F radiation treatments until 03/29, Will need transport set up with [facility], accepting STR Plan: SNF-Wide search initiated * Cathleen Fitch RN - 02/27/2024 11:01 AM EST Problem: Sensory: Acute Pain Goal: Pain level will improve or be tolerable Outcome: Progressing Goal: Ability to develop a pain control plan will improve Outcome: Progressing Goals: Identify possible barriers to meeting goals/advancing plan of care: awaiting placement, wound care,replacing electrolytes Stability of the patient: Moderately Stable - Low risk of patient condition declining or worsening End of Shift Summary: Patient alert and oriented, has congenital deafness - assessment completed with assistance of video landcare facilitator Danyelle #[id number]. Cooperative with plan of care and medications.Replacing mag/K. Wound to buttock - dressing replaced with wound nurse, Unable to assess bed d/t depth. Copious amounts of malodorous drainage noted. Medicated per MAR for pain. Care ongoing at this time. * Penny Mcghee RN - 02/27/2024 1:22 AM EST Goals: Identify possible barriers to meeting goals/advancing plan of care: Placement Stability of the patient: Moderately Stable - Low risk of patient condition declining or worsening End of Shift Summary: PT resting quietly with call stack within reach. PT uses [place] Sign Language. * Rachel Garcia RN - 02/26/2024 4:01 PM EST Goals: Problem: Skin Integrity: Pressure Injury Actual or Risk of Goal: Skin integrity will improve Outcome: Progressing Problem: Sensory: Acute Pain Goal: Pain level will improve or be tolerable Outcome: Progressing Identify possible barriers to meeting goals/advancing plan of care: radiation M-F Stability of the patient: Moderately Unstable - Medium risk of patient condition declining or worsening End of Shift Summary: Admitted with weakness, hx squamous cell carcinoma of rectum. Went to radiation oncology today. Assessed perianal wound & applied wet to dry dressing with guaze packing & placed wound nurse consult. Patient c/o constant severe rectal/bladder pain, receiving scheduled PO oxycontin & prn oxycodone. Awaiting SNF placement difficult d/t radiation schedule. * Tono Stack MD - 02/26/2024 2:15 PM EST Images from the original note were not included. CHARITY PROGRESS NOTE Date: 02/26/2024 Author: Tono Stack MD Patient ID: Yanna Power is a 53 y.o. female : 1970 MR#: [id number] ASSESSMENT & PLAN Assessment/Plan Principal Problem: Dehydration with hyponatremia Yanna Power is a 53 y.o. female who has PMH of COPD/asthma, recently diagnosed squamous cell analcarcinoma, congenital deafness, schizophrenia. Patient presented to ED with complaints of weakness and malaise. She also reported low- grade temperature at home. CT abdomen showed heterogeneous mass in the pelvis involving rectum, vagina and labia. Chest x-ray showed no acute process. Patient was hypotensive, temperature 100.1 ??F, WBC of 6.1, sodium 128, creatinine 0.5. 1. Hypotension-resolved BP stable. Continues on midodrine. 2. 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 Patient has started chemoradiation but has poor performance status. Oncologist recommends physical therapy to improve her strength so she can continue treatment. She has malodorous vaginal/rectal discharge. Continues on radiation treatment while in hospital. Patient should be doing sitz bath's, not able to tolerate. Pending short-term rehab placement for intensive physical therapy. 3. Anemia Hemoglobin remains low but stable at 7.3. No indication for transfusion at this time. Will continueto follow. 4. Hypokalemia Potassium low at 3.1. Potassium replacement ordered. 5. Hypomagnesemia Magnesium reduced at 1.8. Magnesium replacement ordered. 6. Malnutrition Nutrition consult and supplements ordered. SUBJECTIVE Subjective Patient was seen in bed. Interviewed with the use of landcare facilitator. Patient continues to complainof lower pelvic pain and weakness. She has been trying to exercise but complains of persistent weakness. She denied nausea, vomiting, fever, chills, chest pain, shortness of breath. Allergies Patient has no known allergies. Current Medications: ferrous sulfate, 325 mg, oral, Daily fludrocortisone, 0.1 mg, oral, Daily folic acid, 1,000 mcg, oral, Daily magnesium oxide, 400 mg, oral, Daily midodrine, 5 mg, oral, TID AC nicotine, 1 patch, transdermal, Daily oxyCODONE, 30 mg, oral, q12h polyetheylene glycol, 17 g, oral, Daily risperiDONE, 1 mg, oral, BID risperiDONE, 4 mg, oral, Nightly PRN medications: LORazepam, melatonin, ondansetron (ZOFRAN-ODT) disintegrating tablet, oxyCODONE, simethicone OBJECTIVE Vitals: 02/25/24 1813 02/25/24 1959 02/26/24 0250 02/26/24 0805 BP: 105/54 106/52 95/51 BP Location: Right arm Right arm Right arm Patient Position: Lying Pulse: 83 84 88 Resp: Temp: 36.9 ??C (98.5 ??F) 36.7 ??C (98 ??F) 36.5 ??C (97.7 ??F) TempSrc: Temporal SpO2: 99% 95% 95% Weight: 54 kg (119 lb) Height: Physical Exam Vitals and nursing note reviewed. Constitutional: General: She is not in acute distress. HENT: Head: Normocephalic and atraumatic. Nose: Nose normal. Mouth/Throat: Mouth: Mucous membranes are moist. Eyes: Extraocular Movements: Extraocular movements intact. Pupils: Pupils are equal, round, and reactive to light. Cardiovascular: Rate and Rhythm: Normal rate and regular rhythm. Pulmonary: Effort: Pulmonary effort is normal. No respiratory distress. Breath sounds: No wheezing or rales. Abdominal: General: There is no distension. Palpations: Abdomen is soft. Tenderness: There is abdominal tenderness (Suprapubic tenderness). There is no guarding or rebound. Comments: Colostomy present Genitourinary: Comments: Malodorous vaginal discharge Musculoskeletal: General: No swelling or deformity. Skin: General: Skin is warm and dry. Neurological: General: No focal deficit present. Mental Status: She is alert. Mental status is at baseline. LABS HEMATOLOGY Lab Results Component Value Date WBC 2.4 (L) 02/26/2024 HGB 7.3 (L) 02/26/2024 HCT 23.4 (L) 02/26/2024 MCV 80.1 02/26/2024 PLT 121 (L) 02/26/2024 CHEMISTRY Lab Results Component Value Date GLUCOSE 149 (H) 02/26/2024 NA 133 02/26/2024 K 3.1 (L) 02/26/2024 CO2 29 02/26/2024 CL 98 02/26/2024 BUN 3 (L) 02/26/2024 CREATININE 0.41 (L) 02/26/2024 EGFR 119 02/26/2024 CALCIUM 8.0 (L) 02/26/2024 MG 1.8 (L) 02/26/2024 PHOS 2.5 02/23/2024 ANIONGAP 6 02/26/2024 No results found for this or any previous visit (from the past 168 hour(s)). Imaging: CT Abdomen Pelvis w Contrast Narrative: CT abdomen and pelvis with contrast Comparison: [...] nephrolithiasis measures 3 mm. There is a Rocha catheter in the bladder, which is decompressed. [...] along the right pelvic sidewall. No aneurysm. [id number] calcified and noncalcified atherosclerotic disease. No ascites. There is infiltration of the subcutaneous fat which may indicate anasarca. There is presacral edema. No acute osseous abnormality. Impression: Impression: Heterogeneous mass in the pelvis involving [...] by: Danielle Thompson MD on 02/17/2024 17:22:27 XR Chest 1 View Narrative: History: Generalized weakness. Personal history of anorectal [...] are sharp. Cholecystectomy clips are again seen. Impression: Impression: No active pulmonary process identified. Telerad [place] ([id number]) -------- FINAL REPORT -------- Dictated By: Mae Oreilly Dictated Date: 02/17/2024 16:16 ET Assigned Physician: Mae Oreilly Reviewed and Electronically Signed By: Mae Oreilly Signed Date: 02/17/2024 16:17 ET Workstation ID: [id number] Transcribed By: Self Edit Transcribed Date: 02/17/2024 16:16 ET DAILY CARE CHECKLIST Length of Stay: 02d 00h 43m VTE Prophylaxis: Enoxaparin Resuscitation: Full Code - Default IV Access: Chest port Tubes, Catheters, Devices: None PCP: Sneha Li MD Disposition: Pending short-term rehab placement. Patient sister Shaina was called for update but no response. Tono Stack MD 02/26/24 2:15 PM EST * Callie Spears RN - 02/26/2024 12:01 PM EST OWEN: 02/27 Barriers: Needs daily radiation treatments until 03/29, Will need transport set up with PT[facility], accepting STR Plan: [facility]-Wide search initiated, [facility] considering. * Giana Gooden RN - 02/26/2024 4:16 AM EST Problem: Sensory: Acute Pain Goal: Pain level will improve or be tolerable Outcome: Progressing Goal: Ability to develop a pain control plan will improve Outcome: Progressing Identify possible barriers to meeting goals/advancing plan of care: M-F radiation Stability of the patient: Moderately Stable - Low risk of patient condition declining or worsening End of Shift Summary: Patient alert and oriented overnight, VSS. Medicated with naina OxyContin with good effect. No further pain management necessary. Large wound to perianal area, rocha in place to promote wound healing. Attempted to empty ostomy but patient insisted it was empty. Sleeping comfortably. * Millicent VillasenorRejiMichael, RD - 02/25/2024 6:09 PM EST 02/25/2024 @ 6:23 PM EST Nutrition Initial Assessment Reason for RD Intervention: Assessment Type: Nutrition Trigger Reason for Assessment: LOS Anthropometrics: Height: 157.5 cm (62 ) Weight: 54 kg (119 lb) (per EPIC record) Weight Method: Actual BMI (Calculated): 21.8 BMI Class: Normal UBW (lbs): (possibly 160 lbs per pt report) Current Diet and Supplements: Dietary Orders (From admission, onward) Start Ordered 02/17/24 1843 Adult diet [facility]; General; Regular Diet effective now Question Answer Comment Location [facility] Diet Type (req) General General Diet Regular 02/17/24 1842 History of presenting illness: Patient is a 53 y.o. female with a history of Past Medical History: Diagnosis Date Cancer of anus ([facility]/HCC) Congenital deafness 03/21/2023 COPD (chronic obstructive pulmonary disease) ([facility]/HCC) 03/21/2023 DX:COPD (chronic obstructive pulmonary disease) ([facility]) Leukocytosis 03/21/2023 DX:Leukocytosis Low vitamin D level 03/21/2023 Nicotine dependence 03/21/2023 Port-A-Cath in place Schizo affective schizophrenia ([facility]/HCC) Schizophrenia ([facility]/HCC) 12/25/2023 Past Surgical History: Procedure Laterality Date APPENDECTOMY CHOLECYSTECTOMY COLOSTOMY FOOT SURGERY TUBAL LIGATION admitted 02/17/2024 with Dehydration with hyponatremia. Food/Nutrition History: Self-selected diet(s) followed: Pt seen with landcare facilitator Aye [id number]. She reports painful mouth, has softer fods but requesting bagels and Panini. Reports weight was 160lbs in 2023, now 114 lbs. Per EPIC record, weight was 148 lbs in March of 2023, 119 lbs in December of 2023. States she could not sit to eat due to pain so she ate 50% of usual. No food allergies, limited dentition. C onfirms height. Takes 2-3 chocolate boost daily. Appetite [employer] SPECIALIST: Other (Comment) (Pt reports 50% of usula intake since July.) Vitamins/Minerals/Herbs: Vitamin C Nourishment Type: Boost Frequency: TID Denies food allergies. Weight History: Wt Readings from Last 10 Encounters: 02/25/24 54 kg (119 lb) 02/13/24 54.3 kg (119 lb 9.6 oz) 02/08/24 51.7 kg (113 lb 15.7 oz) 01/22/24 51.7 kg (114 lb) 12/25/23 51.7 kg (114 lb) 12/18/23 53.7 kg (118 lb 6.4 oz) 12/16/23 54.2 kg (119 lb 8 oz) 03/24/23 67.1 kg (148 lb) Subjective Assessment: Pt presents with dehydration and hyponatremia. 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 Provider replacing potassium. Pt dislikes many hospital foods. Preferences reviewed and diet office alerted. RN reports she ordered a new breakfast for the pt, at the pt's request, and pt still did not consume her meal. Pt has a diverting colostomy. Suspect PO not adequate for ostomy losses. Nutrition-Related Lab Values: Results from last 7 days Lab Units 02/25/24 0453 02/24/24 0624 02/23/24 0652 SODIUM mmol/L 132* < > 137 POTASSIUM mmol/L 3.3* < > 2.6* PHOSPHORUS mg/dL -- -- 2.5 MAGNESIUM mg/dL 1.8* < > 1.1* CHLORIDE mmol/L 98 < > 102 CO2 mmol/L 31 < > 29 BUN mg/dL 4* < > 2* CREATININE mg/dL 0.40* < > 0.37* EGFR mL/min/1.73m2 120 < > 122 CALCIUM mg/dL 7.4* < > 7.8* GLUCOSE mg/dL 103* < > 104* WBC AUTO K/mcL 2.7* < > 3.0* < > = values in this interval not displayed. Lab Results Component Value Date LIPASE 10 (L) 02/17/2024 Medications: ferrous sulfate, 325 mg, oral, Daily fludrocortisone, 0.1 mg, oral, Daily folic acid, 1,000 mcg, oral, Daily magnesium oxide, 400 mg, oral, Daily midodrine, 5 mg, oral, TID AC nicotine, 1 patch, transdermal, Daily oxyCODONE, 30 mg, oral, q12h polyetheylene glycol, 17 g, oral, Daily risperiDONE, 1 mg, oral, BID risperiDONE, 4 mg, oral, Nightly CONTINUOUS: PRN medications: LORazepam, melatonin, ondansetron (ZOFRAN-ODT) disintegrating tablet, oxyCODONE, simethicone Food/Nutrition-Current Status: Intake Type: P.O. Current Diet Status: Appropriate Current Supplement Status: Other (Comment) (pt requestin ensure tid) Appetite: Other (Comment) (dislikes most food, limited intake) Intake Amount (%): Other (Comment) (varies 25%-100%, most valies 50% or less, overall data limited) Intake Assessment: Inadequate Nutrition Focused Physical Findings: Overall Appearance: lying on her side in bed Digestive System (Mouth to Rectum): Chewing difficulty (pt reports some mouth pain wihth po but requesting solid textured foods) Nerves and Cognition: Alert, Oriented Skin: colostomy, open area, perianal cancer Fluid Accumulation/Edema: Not Examined Loss of Fat Location: Orbital, Buccal, Triceps, Ribs Loss of Fat Amt-Orbital: No Losses Loss of Fat Amt-Buccal: No Losses Loss of Fat Amt-Triceps: Mild Loss of Fat Amt-Ribs: Not Examined Loss of Muscle Location: Temples, Clavicle, Shoulders, Scapula, Thigh, Calf Loss of Muscle Amt-Temples: No Losses Loss of Muscle Amt-Clavicle: Mild Loss of Muscle Amt-Shoulders: No Losses Loss of Muscle Amt-Scapula: Not Examined Loss of Muscle Amt-Thigh: Not Examined Loss of Muscle Amt-Calf: Not Examined Nutrition Diagnosis: Code Type: (reported weight change does not match documented weight history, possible loss of 19.6 % over 11 months, however stable since December when pt reported loss.) Nutrition Interventions: Requested provider order consult for supplements or ensure plus high protein tid Food preferences relayed to diet office to maximize intake -when consult available, would also consider thiamine for 7 days and multivitamin daily Goals: Patient will consume greater than or equal to 75% meals., Patient will consume ONS., Maintain weight., and Maintain skin integrity. Coordination of Patient Care: Verbal discussion with RN. and Discussed with provider(s) via [facility] Secure Chat/Haiku. Monitoring/Evaluation: Oral intake, weight, labs Nutrition Recommendations/Plan of Care: Oral supplements, tid, monitor for need for altered textures Follow Up: Nutrition Priority Level: Moderate Please consult nutrition if needed sooner. RD remains available and will continue to follow. Signature: Millicent Quinteros RD * Duane Guaman RN - 02/25/2024 5:45 PM EST Problem: Sensory: Acute Pain Goal: Pain level will improve or be tolerable Outcome: Progressing Goal: Ability to develop a pain control plan will improve Outcome: Progressing Problem: Cognitive: Acute Pain Goal: Expressions of feelings of enhanced comfort will increase Outcome: Progressing Problem: Patient Specific Problem: Acute Pain Goal: Patient Specific Outcome Outcome: Progressing Problem: Cognitive: Rogers Anders Fall Risk Goal: Last Known Fall Outcome: Progressing Goal: Mobility requiring assistance of person or device Outcome: Progressing Goal: Dizziness Outcome: Progressing Goal: Medications Outcome: Progressing Goal: Mental Status/LOC/Awareness Outcome: Progressing Goal: Toileting Needs Outcome: Progressing Goal: Volume and Electrolyte Status Outcome: Progressing Goal: Communication/Sensory Outcome: Progressing Goal: Behavior Outcome: Progressing Problem: Skin Integrity: Pressure Injury Actual or Risk of Goal: Will not develop new pressure injury Outcome: Progressing Goal: Skin integrity will improve Outcome: Progressing Goal: Risk for impaired skin integrity will decrease Outcome: Progressing Problem: Activity:Pressure Injury Actual or Risk of Goal: Mobility will improve Outcome: Progressing Problem: Nutritional:Pressure Injury Actual or Risk of Goal: Nutritional status will improve Outcome: Progressing Problem: Patient Specific Problem: Pressure Injury Actual or Risk of Goal: Patient Specific Outcome Outcome: Progressing Goals: transfer to SNF for PT & radition fri-friday Identify possible barriers to meeting goals/advancing plan of care: Radiation tx Friday-friday Stability of the patient: Moderately Stable - Low risk of patient condition declining or worsening End of Shift Summary: Pt had radiation treatment today and complains of increased pain to anal areaand bladder secondary to treatment. Dr. Stack messaged for extra pain medication. Awaiting orders. Pt also refused recommended sitz bath twice today and states she is having too much pain to get up and participate in that today. * Agata Zelaya RN - 02/25/2024 12:12 PM EST Progress Note OWEN: 02/27 Barriers: Needs daily radiation treatments until 03/29, Will need transport set up with [facility] Plan: SNF-Wide search initiated * Tono Stack MD - 02/25/2024 12:04 PM EST Images from the original note were not included. [facility] PROGRESS NOTE Date: 02/25/2024 Author: Tono Stack MD Patient ID: Yanna Power is a 53 y.o. female : 1970 MR#: [id number] ASSESSMENT & PLAN Assessment/Plan Principal Problem: Dehydration with hyponatremia Yanna Power is a 53 y.o. female who has PMH of COPD/asthma, recently diagnosed squamous cell analcarcinoma, congenital deafness, schizophrenia. Patient presented to ED with complaints of weakness and malaise. She also reported low- grade temperature at home. CT abdomen showed heterogeneous mass in the pelvis involving rectum, vagina and labia. Chest x-ray showed no acute process. Patient was hypotensive, temperature 100.1 ??F, WBC of 6.1, sodium 128, creatinine 0.5. 1. Hypotension-resolved BP stable. Continues on midodrine. 2. 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 Patient has started chemoradiation but has poor performance status. Oncologist recommends physical therapy to improve her strength so she can continue treatment. She has malodorous vaginal/rectal discharge. Continues on radiation treatment while in hospital. Patient should be doing sitz bath's. Pending short-term rehab placement for intensive physical therapy. 3. Anemia Hemoglobin at 7.1. No indication for transfusion at this time. Will continue to follow. 4. Hypokalemia Potassium low at 3.3. Potassium replacement ordered. 5. Hypomagnesemia Magnesium reduced at 1.8. Magnesium replacement ordered. 6. Malnutrition Nutrition consult and supplements ordered. SUBJECTIVE Subjective Patient was seen in bed. Interviewed with the use of landcare facilitator. Patient continues to complainof lower pelvic pain and weakness. She also has poor appetite. Complains of pain to her upper thighs and abdomen. Allergies Patient has no known allergies. Current Medications: ferrous sulfate, 325 mg, oral, Daily fludrocortisone, 0.1 mg, oral, Daily folic acid, 1,000 mcg, oral, Daily magnesium oxide, 400 mg, oral, Daily midodrine, 5 mg, oral, TID AC nicotine, 1 patch, transdermal, Daily oxyCODONE, 30 mg, oral, q12h polyetheylene glycol, 17 g, oral, Daily risperiDONE, 1 mg, oral, BID risperiDONE, 4 mg, oral, Nightly PRN medications: LORazepam, melatonin, ondansetron (ZOFRAN-ODT) disintegrating tablet, oxyCODONE, simethicone OBJECTIVE Vitals: 02/25/24 0426 02/25/24 0428 02/25/24 0500 02/25/24 0750 BP: (!) 87/47 92/54 105/50 97/52 BP Location: Right arm Left arm Right arm Patient Position: Lying Lying Lying Pulse: 85 82 85 79 Resp: 16 14 Temp: 37.7 ??C (99.9 ??F) 37.1 ??C (98.8 ??F) TempSrc: Temporal SpO2: 96% 100% Weight: Height: Physical Exam Vitals and nursing note reviewed. Constitutional: General: She is not in acute distress. HENT: Head: Normocephalic and atraumatic. Nose: Nose normal. Mouth/Throat: Mouth: Mucous membranes are moist. Eyes: Extraocular Movements: Extraocular movements intact. Pupils: Pupils are equal, round, and reactive to light. Cardiovascular: Rate and Rhythm: Normal rate and regular rhythm. Pulmonary: Effort: Pulmonary effort is normal. No respiratory distress. Breath sounds: No wheezing or rales. Abdominal: General: There is no distension. Palpations: Abdomen is soft. Tenderness: There is abdominal tenderness (Suprapubic tenderness). There is no guarding or rebound. Comments: Colostomy present Genitourinary: Comments: Malodorous vaginal discharge Musculoskeletal: General: No swelling or deformity. Skin: General: Skin is warm and dry. Neurological: General: No focal deficit present. Mental Status: She is alert. Mental status is at baseline. LABS HEMATOLOGY Lab Results Component Value Date WBC 2.7 (L) 02/25/2024 HGB 7.1 (L) 02/25/2024 HCT 22.7 (L) 02/25/2024 MCV 80.2 02/25/2024 PLT 154 02/25/2024 CHEMISTRY Lab Results Component Value Date GLUCOSE 103 (H) 02/25/2024 NA 132 (L) 02/25/2024 K 3.3 (L) 02/25/2024 CO2 31 02/25/2024 CL 98 02/25/2024 BUN 4 (L) 02/25/2024 CREATININE 0.40 (L) 02/25/2024 EGFR 120 02/25/2024 CALCIUM 7.4 (L) 02/25/2024 MG 1.8 (L) 02/25/2024 PHOS 2.5 02/23/2024 ANIONGAP 3 02/25/2024 No results found for this or any previous visit (from the past 168 hour(s)). Imaging: CT Abdomen Pelvis w Contrast Narrative: CT abdomen and pelvis with contrast Comparison: [...] nephrolithiasis measures 3 mm. There is a Rocha catheter in the bladder, which is decompressed. [...] along the right pelvic sidewall. No aneurysm. [id number] calcified and noncalcified atherosclerotic disease. No ascites. There is infiltration of the subcutaneous fat which may indicate anasarca. There is presacral edema. No acute osseous abnormality. Impression: Impression: Heterogeneous mass in the pelvis involving [...] by: Danielle Thompson MD on 02/17/2024 17:22:27 XR Chest 1 View Narrative: History: Generalized weakness. Personal history of anorectal [...] are sharp. Cholecystectomy clips are again seen. Impression: Impression: No active pulmonary process identified. Telerad PA ([id number]) -------- FINAL REPORT -------- Dictated By: Mae Oreilly Dictated Date: 02/17/2024 16:16 ET Assigned Physician: Mae Oreilly Reviewed and Electronically Signed By: Mae Oreilly Signed Date: 02/17/2024 16:17 ET Workstation ID: [id number] Transcribed By: Self Edit Transcribed Date: 02/17/2024 16:16 ET DAILY CARE CHECKLIST Length of Stay: 22h 32m VTE Prophylaxis: Enoxaparin Resuscitation: Full Code - Default IV Access: Chest port Tubes, Catheters, Devices: None PCP: Sneha Li MD Disposition: Pending short-term rehab placement. Tono Stack MD 02/25/24 12:04 PM EST * Karin Coello RN - 02/24/2024 11:44 PM EST Goals: PAIN LEVEL WILL IMPROVE OR BE TOLERABLE Identify possible barriers to meeting goals/advancing plan of care: CHRONIC PAIN ISSUES, RECTAL CANCER Stability of the patient: Moderately Stable - Low risk of patient condition declining or worsening End of Shift Summary: PT W/ CONGENITAL DEAFNESS ADMITTED FOR FEVER, WEAKNESS, AND HYPOTENSION. TAKING SCHEDULED OXYCONTIN AND PRN OXYCODONE. RESTING COMFORTABLY * Tono Stack MD - 02/24/2024 1:53 PM EST [facility] Provider Response Note PATIENT: TONOMay : 1970 ADMIT DATE: 02/17/2024 6:42 PM DISCH DATE: RESPONDING PROVIDER #: [id number] PROVIDER RESPONSE TEXT: The diagnosis was present on admission at the time of the order to admit the patient to inpatient status. QUERY TEXT: The current medical record documentation is unclear whether a diagnosis was present on admission. Your help is needed. Please clarify the POA status of Severe malnutrition , such as: H&P 02/17/2024 Patient is hypotensive and has adult failure to thrive with decreased p.o. intake. She is dehydrated She is also very anemic. She has hypovolemic hyponatremia. Consults 02/20/2024 53 year old female congenital deafness, with anal cancer. She had pet scan which shows involvement of only local lymph nodes. She has large symptomatic bulky disease which would benefit from treatment with radiation along with chemotherapy as per guidelines. Start of treatment has been delayed for multiple reasons, including patient leaving her simulation appointment early and also being hospitalized Ultimately she was started on concurrent chemoradiation last week. Unfortunately she is now here with weakness and failure to thrive. Squamous cell carcinoma of anus, p16+ Cancer associated pain Mild anemia Severe malnutrition Hypotension Recommend nutrition consultation, I am concerned regards to her nutritional input BMI 21.88 kg/m?? per EMR Albumin (g/dL) 02/16; 1.7 per EMR Contact: The patient's clinical indicators include: Options provided: -- Yes, the condition was present on admission at the time of the order to admit the patient to inpatient status -- No, the condition was not present on admission and developed during the inpatient stay -- Unable to determine -- Other - I will add my own diagnosis -- Disagree - Not applicable / Not valid Query created by: Michelle Scott on 02/24/2024 1:27 PM Electronically signed by: TONO STACK MD 02/24/2024 1:52 PM * Fiona Bedoya RN - 02/24/2024 1:31 PM EST Handoff report given to nurse assuming care of patient in RM 508. Will transfer to new unit post radiation treatment. * Tono Stack MD - 02/24/2024 11:47 AM EST Images from the original note were not included. [facility] PROGRESS NOTE Date: 02/24/2024 Author: Tono Stack MD Patient ID: Yanna Power is a 53 y.o. female : 1970 MR#: [id number] ASSESSMENT & PLAN Assessment/Plan Principal Problem: Dehydration with hyponatremia Yanna Power is a 53 y.o. female who has PMH of COPD/asthma, recently diagnosed squamous cell analcarcinoma, congenital deafness, schizophrenia. Patient presented to ED with complaints of weakness and malaise. She also reported low- grade temperature at home. CT abdomen showed heterogeneous mass in the pelvis involving rectum, vagina and labia. Chest x-ray showed no acute process. Patient was hypotensive, temperature 100.1 ??F, WBC of 6.1, sodium 128, creatinine 0.5. 1. Hypotension-resolved BP stable. Continues on midodrine. 2. 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 Patient has started chemoradiation but has poor performance status. Oncologist recommends physical therapy to improve her strength so she can continue treatment. She has malodorous vaginal/rectal discharge. Continues on radiation treatment while in hospital. Pending short-term rehab placement for intensive physical therapy. 3. Anemia Hemoglobin at 7.3. No indication for transfusion at this time. Will continue to follow. 4. Hypokalemia Potassium low at 3.2. 80 mEq KCl ordered. 5. Hypomagnesemia Magnesium improved to 1.9. SUBJECTIVE Subjective Patient was seen in bed. Interviewed with the use of landcare facilitator. Patient complains of pain to her upper thighs and abdomen. She attempted to work with physical therapy but could not do much due to pain and weakness. She denied nausea, vomiting, fever, chills, chest pain. Allergies Patient has no known allergies. Current Medications: ferrous sulfate, 325 mg, oral, Daily fludrocortisone, 0.1 mg, oral, Daily folic acid, 1,000 mcg, oral, Daily midodrine, 5 mg, oral, TID AC nicotine, 1 patch, transdermal, Daily oxyCODONE, 30 mg, oral, q12h polyetheylene glycol, 17 g, oral, Daily risperiDONE, 1 mg, oral, BID risperiDONE, 4 mg, oral, Nightly lactated Ringer's, 75 mL/hr, Last Rate: 75 mL/hr (02/24/24 1016) PRN medications: LORazepam, melatonin, ondansetron (ZOFRAN-ODT) disintegrating tablet, oxyCODONE, simethicone OBJECTIVE Vitals: 02/23/24 1539 02/23/24 1956 02/24/24 0329 02/24/24 0721 BP: 103/61 93/56 90/50 96/53 BP Location: Left arm Left arm Left arm Left arm Patient Position: Lying Lying Lying Lying Pulse: 75 88 77 76 Resp: 16 18 18 16 Temp: 36.9 ??C (98.5 ??F) 37.1 ??C (98.7 ??F) 36.1 ??C (97 ??F) 37 ??C (98.6 ??F) TempSrc: Temporal Temporal Temporal Temporal SpO2: 97% 98% 97% 96% Weight: Height: Physical Exam Vitals and nursing note reviewed. Constitutional: General: She is not in acute distress. HENT: Head: Normocephalic and atraumatic. Nose: Nose normal. Mouth/Throat: Mouth: Mucous membranes are moist. Eyes: Extraocular Movements: Extraocular movements intact. Pupils: Pupils are equal, round, and reactive to light. Cardiovascular: Rate and Rhythm: Normal rate and regular rhythm. Pulmonary: Effort: Pulmonary effort is normal. No respiratory distress. Breath sounds: No wheezing or rales. Abdominal: General: There is no distension. Palpations: Abdomen is soft. Tenderness: There is abdominal tenderness (Suprapubic tenderness). There is no guarding or rebound. Comments: Colostomy present Genitourinary: Comments: Malodorous vaginal discharge Musculoskeletal: General: No swelling or deformity. Skin: General: Skin is warm and dry. Neurological: General: No focal deficit present. Mental Status: She is alert. Mental status is at baseline. LABS HEMATOLOGY Lab Results Component Value Date WBC 2.4 (L) 02/24/2024 HGB 7.3 (L) 02/24/2024 HCT 23.5 (L) 02/24/2024 MCV 80.7 02/24/2024 PLT 150 02/24/2024 CHEMISTRY Lab Results Component Value Date GLUCOSE 102 (H) 02/24/2024 NA 135 02/24/2024 K 3.2 (L) 02/24/2024 CO2 29 02/24/2024 CL 101 02/24/2024 BUN 4 (L) 02/24/2024 CREATININE 0.36 (L) 02/24/2024 EGFR 123 02/24/2024 CALCIUM 7.6 (L) 02/24/2024 MG 1.9 02/24/2024 PHOS 2.5 02/23/2024 ANIONGAP 5 02/24/2024 Recent Results (from the past 168 hour(s)) Respiratory virus panel molecular study Collection Time: 02/17/24 4:22 PM Specimen: Nares; Swab Result Value Ref Range Adenovirus Detection by PCR Not Detected Not Detected Influenza A PCR Not Detected Not Detected Influenza B PCR Not Detected Not Detected Coronavirus 229E Not Detected Not Detected Coronavirus HKU1 Not Detected Not Detected Coronavirus OC43 Not Detected Not Detected Coronavirus NL63 Not Detected Not Detected Parainfluenza Virus 1 Not Detected Not Detected Parainfluenza Virus 2 Not Detected Not Detected Parainfluenza Virus 3 Not Detected Not Detected Parainfluenza Virus 4 Not Detected Not Detected RSV PCR Not Detected Not Detected Human Metapneumovirus A and B Not Detected Not Detected Rhinovirus/Enterovirus Not Detected Not Detected Bordetella pertussis Not Detected Not Detected Bordetella parapertussis Not Detected Not Detected Mycoplasma pneumo by PCR Not Detected Not Detected Chlamydia pneumoniae Not Detected Not Detected SARS COV-2 Not Detected Not Detected Blood Culture, Peripheral #1 Collection Time: 02/17/24 4:24 PM Specimen: Blood, Venous Result Value Ref Range Culture, Blood No growth at 5 days Blood Culture, Peripheral #2 Collection Time: 02/17/24 4:27 PM Specimen: Blood, Venous Result Value Ref Range Culture, Blood No growth at 5 days Imaging: CT Abdomen Pelvis w Contrast Narrative: CT abdomen and pelvis with contrast Comparison: [...] nephrolithiasis measures 3 mm. There is a Rocha catheter in the bladder, which is decompressed. [...] along the right pelvic sidewall. No aneurysm. [id number] calcified and noncalcified atherosclerotic disease. No ascites. There is infiltration of the subcutaneous fat which may indicate anasarca. There is presacral edema. No acute osseous abnormality. Impression: Impression: Heterogeneous mass in the pelvis involving [...] by: Danielle Thompson MD on 02/17/2024 17:22:27 XR Chest 1 View Narrative: History: Generalized weakness. Personal history of anorectal [...] are sharp. Cholecystectomy clips are again seen. Impression: Impression: No active pulmonary process identified. [place] PA ([id number]) -------- FINAL REPORT -------- Dictated By: Mae Oreilly Dictated Date: 02/17/2024 16:16 ET Assigned Physician: Mae Oreilly Reviewed and Electronically Signed By: Mae Oreilly Signed Date: 02/17/2024 16:17 ET Workstation ID: [id number] Transcribed By: Self Edit Transcribed Date: 02/17/2024 16:16 ET DAILY CARE CHECKLIST Length of Stay: 06d 02h 23m VTE Prophylaxis: Enoxaparin Resuscitation: Full Code - Default IV Access: Chest port Tubes, Catheters, Devices: None PCP: Sneha Li MD Disposition: Pending short-term rehab placement. Patient's sister Shaina updated over telephone. Tono Stack MD 02/24/24 11:47 AM EST * Natalya Zazueta, PT - 02/24/2024 8:20 AM EST Patient: May Tono Age: 53 y.o. Sex: female Dehydration with hyponatremia [facility] Physical Therapy Evaluation Ambulation: Walking Assistance: Minimum assistance Walking Deficit: Limited endurance, Impaired balance, Assist for weight shifting, LE weakness (pain) Device: Rolling walker Distance Ambulated (ft): 1 PLOF: Level of [place]: Independent with mobility and functional transfers (with rwalkier) Lives With: Alone Receives Help From: Other (Comment) (no longer has REVENUE INSPECTOR; no one assists) Type of Home: Apartment Home Adaptive Equipment: Walker - rolling, Cane Home Layout: One level Home Access: Stairs to enter with rails DME Needs: PT Discharge Recommendation: Inpatient rehab facility placement, halfway facility placement Reason for current recommendation based on assessment: Based on present level of mobility, pt is below baseline for functioning, is at a high risk for falls and is unable to safely ambulate a household distance at this time. Pt was previously independent and would benefit from the most intensive level of post- acute rehab for the best functional outcome. Extracted from EMR: SUBJECTIVE RN approved pt. for PT visit at this time. Pt. was educated on the PT role, understood the benefitsof working with PT, and was agreeable. Past Medical History: Diagnosis Date Cancer of anus ([facility]) Congenital deafness 03/21/2023 COPD (chronic obstructive pulmonary disease) [place]) 03/21/2023 DX:COPD (chronic obstructive pulmonary disease) ([facility]) Leukocytosis 03/21/2023 DX:Leukocytosis Low vitamin D level 03/21/2023 Nicotine dependence 03/21/2023 Port-A-Cath in place Schizo affective schizophrenia ([facility]) Schizophrenia ([facility]) 12/25/2023 Past Surgical History: Procedure Laterality Date APPENDECTOMY CHOLECYSTECTOMY COLOSTOMY FOOT SURGERY TUBAL LIGATION 02/24/24 0820 PT Last Visit PT Received On 02/24/24 General Family/Caregiver Present No PT Time Calculation PT Start Time 0820 PT Stop Time 0850 PT Time Calculation (min) 30 min Precautions Medical Precautions Fall Risk Safety Interventions Bed alarm;Call stack within reach;ID band on;Side rails up x1 RUE Weight Bearing Status Full LUE Weight Bearing Status Full RLE Weight Bearing Status Full LLE Weight Bearing Status Full Pain Assessment Pain Assessment 0-10 Pain Score 10 - Worst possible pain Pain Location Knee Pain Orientation Right Effect of Pain on Daily Activities physical activity Multiple Pain Sites Three Pain 2 Pain Score 2 10 - Worst possible pain Pain Location 2 Knee Pain Orientation 2 Left Pain 3 Pain Score 3 10 - Worst possible pain Pain Location 3 Back Pain Orientation 3 Lower Activities/Procedures Causing Pain 3 Activity (Up to chair, ambulation) Cognition Orientation Level Oriented X4 Following Commands Follows all commands and directions without difficulty Home Living Type of Home Apartment Lives With Alone Home Adaptive Equipment Walker - rolling;Cane Home Layout One level Home Access Stairs to enter with rails Entrance Stairs-Number of Steps 14 Prior Function Level of [place] Independent with mobility and functional transfers (with rwalkier) Ambulation Status Household ambulator Receives Help From Other (Comment) (no longer has REVENUE INSPECTOR; no one assists) Indoor Mobility Assistance Needed Some Help Stairs Assistance Needed Some Help Prior Device Use Walker;Cane Activity Tolerance Endurance Tolerates less than 10 min exercise, no significant change in vital signs Activity Tolerance Comments only stood at rwalker x 30s seconds, and took 4 sidesteps to r Sensation Light Touch No apparent deficits Static Sitting Balance Static Sitting-Level of Assistance Standby assistance Static Sitting-Balance Support No upper extremity supported Dynamic Sitting Balance Dynamic Sitting-Level of Assistance Contact guard Dynamic Sitting-Balance Support No upper extremity supported Static Standing Balance Static Standing-Level of Assistance Contact guard Static Standing-Comment/Number of Minutes fair- Dynamic Standing Balance Dynamic Standing-Level of Assistance Minimum assistance Dynamic Standing-Balance Support Right upper extremity supported;Left upper extremity supported Bed Mobility Sitting to Lying Assistance Supervision Lying to Sitting Assistance Minimum assistance Transfers Sit to Stand Assistance Minimum assistance Sit to Stand Deficit Steadying;Assist for lift off Chair/Bed to Chair/Bed Transfer Assistance Patient declined Ambulation Walking Assistance Minimum assistance Walking Deficit Limited endurance;Impaired balance;Assist for weight shifting;LE weakness (pain) Device Rolling walker Distance Ambulated (ft) 1 Stairs 12 steps: Assistance Not attempted, medical/safety concerns RUE Assessment RUE Assessment Within Functional Limits LUE Assessment LUE Assessment Within Functional Limits RLE Assessment RLE Assessment Impaired RLE Assessment Comments strength: 3-3-/5; prom knee extensiojn painful LLE Assessment LLE Assessment Impaired LLE Assessment Comments strength: 3-3-/5; prom knee extensiojn painful PT Assessment PT Assessment Results Decreased strength;Decreased range of motion;Decreased endurance;Impaired balance;Impaired gait;Decreased mobility;Pain;Other (Comment) Prognosis Good Evaluation/Treatment Tolerance Patient limited by pain Medical Staff Made Aware Yes Plan Treatment/Interventions ADL retraining;Functional transfer training;LE strengthening/ROM;Endurance training;Patient/family training;Bed mobility;Gait training;Continued evaluation;Balance training (pt is deaf and needs asl teleinterpreter (used [id number])) PT Plan Skilled PT PT Frequency 2-5 days per week PT Discharge Recommendations Inpatient rehab facility placement;halfway facility placement PT - Evaluation Status Complete PT Evaluation Time Entry PT Evaluation (Moderate) Time Entry 30 ASSESSMENT Based on present level of mobility, pt is below baseline for functioning, is at a high risk for falls and is unable to safely ambulate a household distance at this time. Pt was previously independentand would benefit from the most intensive level of post-acute rehab for the best functional outcome. Physical therapy is necessary to continue to work toward goals of strengthening, bed mobility, transfers, balance and gait training to increase patient's independence in all areas of functional mobility. PT Assessment PT Assessment Results: Decreased strength, Decreased range of motion, Decreased endurance, Impairedbalance, Impaired gait, Decreased mobility, Pain, Other (Comment) Prognosis: Good Evaluation/Treatment Tolerance: Patient limited by pain Medical Staff Made Aware: Yes PLAN Acute Care Plan: Treatment/Interventions: ADL retraining, Functional transfer training, LE strengthening/ROM, Endurance training, Patient/family training, Bed mobility, Gait training, Continued evaluation, Balance training (pt is deaf and needs asl teleinterpreter (used [id number])) PT Plan: Skilled PT PT Frequency: 2-5 days per week PT Discharge Recommendations: Inpatient rehab facility placement, halfway facility placement Encounter Problems Encounter Problems (Active) Template: Physical Therapy Problem: PT Short Term Goals Dates: Start: 02/24/24 Goal: PT STG 1 Dates: Start: 02/24/24 Goal: PT STG 2 Dates: Start: 02/24/24 Encounter Problems (Resolved) There are no resolved problems. EDUCATION Education Documentation Teach proper use of assistive devices, taught by Natalya Zazueta PT at 02/24/2024 9:26 AM. Learner: Patient Readiness: Acceptance Method: Explanation, Solar Photovoltaic Installer Response: Demonstrated Understanding Comment: pt instructed to use call stack for all needs; recommended str before returning home Education Comments No comments found. Natalya Zazueta PT * Bertha Tavares OT - 02/24/2024 8:00 AM EST [facility] Occupational Therapy Evaluation DATE: Saturday February 24, 2024 TIME IN: 0800 TIME OUT: 0835 Pt: May Tono ROOM: [id number] Discharge Recommendation: Inpatient rehab and halfway facility Equipment Recommendation: walker Staff recommendations for safe patient handlin person min assist with RW, pt unable to take forward steps d/t pain in feli Les. Pt able to side step to HOB with RW min assist. Assessment: Patient is a 53 y.o. y.o. female presenting for OT evaluation following admission due to weakness and malaise. During today's skilled acute care OT evaluation, pt demonstrated the following deficits: pain, decreased standing balance, decreased ADLs/IADLs, decreased fxnl mobility. Pt currently requires assistance for ADLs and physical assistance for functional transfers/mobility. Pt will continue to benefit from skilled acute care OT services this admission to facilitate improvementsin the areas of deficit listed above and to progress toward their PLOF with ADLs and IADLs. OT Time Calculation OT Start Time: 0800 OT Stop Time: 0835 OT Time Calculation (min): 35 min History of Present Illness: Patient is a 53 y.o. female admitted to [facility] on 02/17/2024. Occupational Therapy evaluation and treatment ordered to assess ADL independence, safety, and functional mobility for discharge planning. Patient Active Problem List Diagnosis Congenital deafness COPD (chronic obstructive pulmonary disease) ([facility]) Low vitamin D level Nicotine dependence Primary squamous cell carcinoma of anus ([facility]) Schizophrenia ([facility]) Rectal mass Dehydration with hyponatremia Past Medical History: Diagnosis Date Cancer of anus ([facility]) Congenital deafness 03/21/2023 COPD (chronic obstructive pulmonary disease) ([facility]) 03/21/2023 DX:COPD (chronic obstructive pulmonary disease) ([facility]) Leukocytosis 03/21/2023 DX:Leukocytosis Low vitamin D level 03/21/2023 Nicotine dependence 03/21/2023 Port-A-Cath in place Schizo affective schizophrenia ([facility]) Schizophrenia ([facility]) 12/25/2023 Past Surgical History: Procedure Laterality Date APPENDECTOMY CHOLECYSTECTOMY COLOSTOMY FOOT SURGERY TUBAL LIGATION Subjective Patient alert and agreeable to engage in OT evaluation and treatment. Objective Patient was identified by name and x2. Hearing: Pt uses sign language Speech: Impaired and Pt uses sign language Vision: Vision: Intact 02/24/24 1209 OT Last Visit OT Received On 02/24/24 General Family/Caregiver Present No OT Time Calculation OT Start Time 0800 OT Stop Time 834 OT Time Calculation (min) 35 min Precautions Medical Precautions Fall Risk Safety Interventions Call stack within reach;ID band on;Bed alarm RUE Weight Bearing Status Full LUE Weight Bearing Status Full RLE Weight Bearing Status Full LLE Weight Bearing Status Full Vital Signs Patient Identification Yes Pain Assessment Pain Assessment 0-10 Pain Score 10 - Worst possible pain Pain Type Acute pain Pain Location Leg Pain Orientation Right;Left Pain Descriptors Aching;Jabbing Pain Interventions Medication (See MAR) Home Living Type of Home Apartment Lives With Alone Home Adaptive Equipment Walker - rolling;Cane Home Layout One level Home Access Stairs to enter with rails Entrance Stairs-Number of Steps 14 Prior Function Level of [place] Independent with mobility and functional transfers Ambulation Status Household ambulator Receives Help From (no longer has a REVENUE INSPECTOR) Indoor Mobility Assistance Independent Prior Device Use Walker;Cane ADL/IADL History ADL Assistance (Self Care) Independent ADL Eating Assistance Setup Grooming Assistance Setup Oral Hygiene Assistance Setup Bathing Assistance Minimum assistance UE Dressing Assistance Supervision LE Dressing Assistance Maximum assistance Footwear Assistance Dependent Toileting Assistance Maximum assistance Bed Mobility Lying to Sitting Assistance Minimum assistance Functional Transfers Sit to Stand Assistance Minimum assistance (more than steadying assist to RW) Toilet Transfer Assistance Not attempted, medical/safety concerns (d/t pain in feli LEs) Cognition Overall Cognitive Status WFL Arousal/Alertness Appropriate responses to stimuli Orientation Level Oriented X4 Following Commands Follows all commands and directions without difficulty Perception Inattention/Neglect Appears intact Proprioception Proprioception No apparent deficits Sensation Light Touch No apparent deficits Hand Function Gross Grasp Functional Coordination Coordination (decreased motor speed) RUE Assessment RUE Assessment Within Functional Limits RUE Assessment Comments 3+/5 shoulder flex (however with decreased motor speed) LUE Assessment LUE Assessment Within Functional Limits LUE Assessment Comments 3+/5 shoulder flex RLE Assessment RLE Assessment Impaired LLE Assessment LLE Assessment Impaired OT Assessment OT Assessment Results Decreased ADL status;Decreased upper extremity range of motion;Decreased upper extremity strength;Decreased fine motor control;Decreased functional mobility Prognosis Good Evaluation/Treatment Tolerance Patient limited by pain Plan Treatment Interventions ADL retraining;Functional transfer training;Endurance training;UE strengthening/ROM OT Plan Skilled OT OT Frequency 2-5 days per week OT Duration of Sessions 30-60 min per session OT Treatments per day 1 time per day OT - Evaluation Status Complete OT Discharge Recommendations Inpatient rehab facility placement;halfway facility placement Equipment Recommended Walker-rolling OT Evaluation Time Entry OT Evaluation (Low) Time Entry 35 Pt completed bed mobility with min assist. Pt sat EOB for approx 10 minutes with SPV for safety. Ptreporting 101/10 pain in feli Les and lower back. Pt completed sit to stand to RW with min assist for more than steadying assist. Pt stood to RW for approx 1 minute then required seated rest break. Ptcomplete sit to stand to RW with min assist for more than steadying assist. Pt side stepped to HOB to R side with min assist for more than steadying assist. Pt with increase in pain in feli Les with movement. Pt unable to take forward steps at this time d/t pain tolerance. Pt completed EOB to supinewith SPV for safety. ADDITIONAL COMMENTS: Chart reviewed. CHELI Jaimes clears pt for session. Pt agrees to participate and received supine with HOB elevated. All lines in place. No family or guests present during session. Medical precautions observed appropriately. Initiated education on Role of OT and ADL Techniques and Safety . Pt needs reinforcement for carry over. EXIT STATUS: Session ended with patient supine with HOB elevated. Needs in reach. RN made aware. OT Goals Pt seen for OT eval and treatment session to assess ADL and functional status. See above for details of evaluation/treatment session. OT Assessment OT Assessment Results: Decreased ADL status, Decreased upper extremity range of motion, Decreased upper extremity strength, Decreased fine motor control, Decreased functional mobility Prognosis: Good Evaluation/Treatment Tolerance: Patient limited by pain Plan Treatment Interventions: ADL retraining, Functional transfer training, Endurance training, UE strengthening/ROM OT Plan: Skilled OT OT Frequency : 2-5 days per week OT Duration of Sessions: 30-60 min per session OT Treatments per day: 1 time per day OT - Evaluation Status: Complete OT Discharge Recommendations: Inpatient rehab facility placement, halfway facility placement Equipment Recommended: Walker-rolling Encounter Problems Encounter Problems (Active) Template: Occupational Therapy Problem: OT Short Term Goals Dates: Start: 02/24/24 Goal: pt will complete fxnl mobility with RW to bathroom in order to complete toilet txfer with minassist Dates: Start: 02/24/24 Expected End: 03/02/24 Goal: pt will complete lower body dressing task with min assist AE PRN Dates: Start: 02/24/24 Expected End: 03/02/24 Encounter Problems (Resolved) There are no resolved problems. Education Documentation Body Mechanics, taught by Bertha Tavares OT at 02/24/2024 12:20 PM. Learner: Patient Readiness: Acceptance Method: Explanation Response: Needs Reinforcement Comment: Pt educated on pacing self t/o daily tasks. pt educated on pain management and taking painmedication prior to therapy ADL Training, taught by Bertha Tavares OT at 02/24/2024 12:20 PM. Learner: Patient Readiness: Acceptance Method: Explanation Response: Needs Reinforcement Comment: Pt educated on pacing self t/o daily tasks. pt educated on pain management and taking painmedication prior to therapy Education Comments No comments found. Bertha Tavares OT * Macey Alvarez RN - 02/24/2024 12:28 AM EST Problem: Sensory: Acute Pain Goal: Pain level will improve or be tolerable Outcome: Progressing Goal: Ability to develop a pain control plan will improve Outcome: Progressing Problem: Cognitive: Acute Pain Goal: Expressions of feelings of enhanced comfort will increase Outcome: Progressing Problem: Patient Specific Problem: Acute Pain Goal: Patient Specific Outcome Outcome: Progressing Problem: Cognitive: Rogers Anders Fall Risk Goal: Last Known Fall Outcome: Progressing Goal: Mobility requiring assistance of person or device Outcome: Progressing Goal: Dizziness Outcome: Progressing Goal: Medications Outcome: Progressing Goal: Mental Status/LOC/Awareness Outcome: Progressing Goal: Toileting Needs Outcome: Progressing Goal: Volume and Electrolyte Status Outcome: Progressing Goal: Communication/Sensory Outcome: Progressing Goal: Behavior Outcome: Progressing Problem: Skin Integrity: Pressure Injury Actual or Risk of Goal: Will not develop new pressure injury Outcome: Progressing Goal: Skin integrity will improve Outcome: Progressing Goal: Risk for impaired skin integrity will decrease Outcome: Progressing Problem: Activity:Pressure Injury Actual or Risk of Goal: Mobility will improve Outcome: Progressing Problem: Nutritional:Pressure Injury Actual or Risk of Goal: Nutritional status will improve Outcome: Progressing Problem: Patient Specific Problem: Pressure Injury Actual or Risk of Goal: Patient Specific Outcome Outcome: Progressing Identify possible barriers to meeting goals/advancing plan of care: Placement, hypotension, and review of morning labs Stability of the patient: Moderately Stable - Low risk of patient condition declining or worsening End of Shift Summary: Patient resting comfortably * Callie Spears RN - 02/23/2024 3:53 PM EST Pt needs landcare facilitator OWEN: TBD Barriers: hypotensive and FTT with decreased p.o. intake, wound, trend labs, lytes continue to be critically low despite repletion 1230PM to [facility] for Radiation [place]. Dispo: A/STR, referrals initiated, prefers [facility]; needs to get stronger in order to get back on chemotherapy - active w [facility] for mass in the pelvis involving rectum and vagina as well as labia that was consistent with known history of anal cancer * Natalya Zazueta PT - 02/23/2024 2:23 PM EST Physical Therapy Therapy session was attempted for Yanna Power by Natalya Zazueta PT on 02/23/2024. The patient was unable to be seen for the following reason(s): With other team members Plan for return visit: As soon as possible * Tono Stack MD - 02/23/2024 1:18 PM EST Images from the original note were not included. CHARITY PROGRESS NOTE Date: 02/23/2024 Author: Tono Stack MD Patient ID: Yanna Power is a 53 y.o. female : 1970 MR#: [id number] ASSESSMENT & PLAN Assessment/Plan Principal Problem: Dehydration with hyponatremia Yanna Power is a 53 y.o. female who has PMH of COPD/asthma, recently diagnosed squamous cell analcarcinoma, congenital deafness, schizophrenia. Patient presented to ED with complaints of weakness and malaise. She also reported low- grade temperature at home. CT abdomen showed heterogeneous mass in the pelvis involving rectum, vagina and labia. Chest x-ray showed no acute process. Patient was hypotensive, temperature 100.1 ??F, WBC of 6.1, sodium 128, creatinine 0.5. 1. Hypotension-resolved BP stable. Continues on midodrine. 2. 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 Patient has started chemoradiation with his poor performance status. Oncologist recommends physical therapy to improve her strength so she can continue treatment. She hasmalodorous vaginal discharge. Continues on radiation treatment while in hospital. 3. Anemia Hemoglobin at 7.3. No indication for transfusion at this time. Will continue to follow. 4. Hypokalemia Potassium low at 2.6. Potassium placement ordered. 5. Hypomagnesemia Magnesium level of 1.1. IV magnesium sulfate ordered. SUBJECTIVE Subjective Patient was seen in bed. Interviewed with the use of landcare facilitator. Patient complains of pain to her upper thighs and abdomen. She has not been working with PT. She denied nausea, vomiting, fever, chills, chest pain. Allergies Patient has no known allergies. Current Medications: ferrous sulfate, 325 mg, oral, Daily fludrocortisone, 0.1 mg, oral, Daily folic acid, 1,000 mcg, oral, Daily magnesium sulfate, 2 g, intravenous, q2h midodrine, 5 mg, oral, TID AC nicotine, 1 patch, transdermal, Daily oxyCODONE, 30 mg, oral, q12h polyetheylene glycol, 17 g, oral, Daily risperiDONE, 1 mg, oral, BID risperiDONE, 4 mg, oral, Nightly sodium chloride, 75 mL/hr, Last Rate: Stopped (02/23/24 1153) PRN medications: LORazepam, melatonin, ondansetron (ZOFRAN-ODT) disintegrating tablet, oxyCODONE, simethicone OBJECTIVE Vitals: 02/23/24 0050 02/23/24 0349 02/23/24 0735 02/23/24 1213 BP: 114/55 98/57 101/57 105/55 BP Location: Left arm Left arm Left arm Left arm Patient Position: Lying Lying Lying Lying Pulse: 87 86 85 78 Resp: 15 15 16 16 Temp: 36.8 ??C (98.2 ??F) 36.9 ??C (98.4 ??F) 36.9 ??C (98.5 ??F) 37.3 ??C (99.1 ??F) TempSrc: Temporal Temporal Temporal Temporal SpO2: 97% 94% 97% 96% Weight: Height: Physical Exam Vitals and nursing note reviewed. Constitutional: General: She is not in acute distress. HENT: Head: Normocephalic and atraumatic. Nose: Nose normal. Mouth/Throat: Mouth: Mucous membranes are moist. Eyes: Extraocular Movements: Extraocular movements intact. Pupils: Pupils are equal, round, and reactive to light. Cardiovascular: Rate and Rhythm: Normal rate and regular rhythm. Pulmonary: Effort: Pulmonary effort is normal. No respiratory distress. Breath sounds: No wheezing or rales. Abdominal: General: There is no distension. Palpations: Abdomen is soft. Tenderness: There is abdominal tenderness (Suprapubic tenderness). There is no guarding or rebound. Comments: Colostomy present Genitourinary: Comments: Malodorous vaginal discharge Musculoskeletal: General: No swelling or deformity. Skin: General: Skin is warm and dry. Neurological: General: No focal deficit present. Mental Status: She is alert. Mental status is at baseline. LABS HEMATOLOGY Lab Results Component Value Date WBC 3.0 (L) 02/23/2024 HGB 7.3 (L) 02/23/2024 HCT 23.5 (L) 02/23/2024 MCV 81.0 02/23/2024 PLT 187 02/23/2024 CHEMISTRY Lab Results Component Value Date GLUCOSE 104 (H) 02/23/2024 NA 137 02/23/2024 K 2.6 (LL) 02/23/2024 CO2 29 02/23/2024 CL 102 02/23/2024 BUN 2 (L) 02/23/2024 CREATININE 0.37 (L) 02/23/2024 EGFR 122 02/23/2024 CALCIUM 7.8 (L) 02/23/2024 MG 1.1 (L) 02/23/2024 PHOS 2.5 02/23/2024 ANIONGAP 6 02/23/2024 Recent Results (from the past 168 hour(s)) Respiratory virus panel molecular study Collection Time: 02/17/24 4:22 PM Specimen: Nares; Swab Result Value Ref Range Adenovirus Detection by PCR Not Detected Not Detected Influenza A PCR Not Detected Not Detected Influenza B PCR Not Detected Not Detected Coronavirus 229E Not Detected Not Detected Coronavirus HKU1 Not Detected Not Detected Coronavirus OC43 Not Detected Not Detected Coronavirus NL63 Not Detected Not Detected Parainfluenza Virus 1 Not Detected Not Detected Parainfluenza Virus 2 Not Detected Not Detected Parainfluenza Virus 3 Not Detected Not Detected Parainfluenza Virus 4 Not Detected Not Detected RSV PCR Not Detected Not Detected Human Metapneumovirus A and B Not Detected Not Detected Rhinovirus/Enterovirus Not Detected Not Detected Bordetella pertussis Not Detected Not Detected Bordetella parapertussis Not Detected Not Detected Mycoplasma pneumo by PCR Not Detected Not Detected Chlamydia pneumoniae Not Detected Not Detected SARS COV-2 Not Detected Not Detected Blood Culture, Peripheral #1 Collection Time: 02/17/24 4:24 PM Specimen: Blood, Venous Result Value Ref Range Culture, Blood No growth at 5 days Blood Culture, Peripheral #2 Collection Time: 02/17/24 4:27 PM Specimen: Blood, Venous Result Value Ref Range Culture, Blood No growth at 5 days Imaging: CT Abdomen Pelvis w Contrast Narrative: CT abdomen and pelvis with contrast Comparison: [...] nephrolithiasis measures 3 mm. There is a Rocha catheter in the bladder, which is decompressed. [...] along the right pelvic sidewall. No aneurysm. [id number] calcified and noncalcified atherosclerotic disease. No ascites. There is infiltration of the subcutaneous fat which may indicate anasarca. There is presacral edema. No acute osseous abnormality. Impression: Impression: Heterogeneous mass in the pelvis involving [...] by: Danielle Thompson MD on 02/17/2024 17:22:27 XR Chest 1 View Narrative: History: Generalized weakness. Personal history of anorectal [...] are sharp. Cholecystectomy clips are again seen. Impression: Impression: No active pulmonary process identified. Telerad PA ([id number]) -------- FINAL REPORT -------- Dictated By: Mae Oreilly Dictated Date: 02/17/2024 16:16 ET Assigned Physician: Mae Oreilly Reviewed and Electronically Signed By: Mae Oreilly Signed Date: 02/17/2024 16:17 ET Workstation ID: [id number] Transcribed By: Self Edit Transcribed Date: 02/17/2024 16:16 ET DAILY CARE CHECKLIST Length of Stay: 05d 03h 54m VTE Prophylaxis: Enoxaparin Resuscitation: Full Code - Default IV Access: Chest port Tubes, Catheters, Devices: None PCP: Sneha Li MD Disposition: Pending PT eval and clinical improvement Tono Stack MD 02/23/24 1:18 PM EST * Nickie Duron NP - 02/23/2024 11:03 AM EST [place], [place] [facility] INPATIENT EVALUATION Staff Physician: Nickie Duron NP Date of Service: 02/17/2024 Diagnosis: 1. Dehydration 2. Generalized abdominal pain 3. Diabetic ulcer of right buttock (CMS/HCC) 4. Hyponatremia 5. Anal cancer (CMS/HCC) Stage: Cancer Staging Primary squamous cell carcinoma of anus (CMS/HCC) Staging form: Anus, AJCC V9 - Clinical: Stage IIIC (cT4, cN1, cM0) - Signed by Samina Diaz MD on 01/01/2024 Prior treatment: VMAT: Anus Treatment Period Technique Fraction Dose Fractions Total Dose Course 1 02/09/2024-02/16/2024 (days elapsed: 7) Pelvis/Anus 02/09/2024-02/16/2024 4 ARC VMAT 180 / 180 cGy 900 / 5,400 cGy HPI: Patient was admitted to the hospital for weakness and malaise. Reported a low grade fever at home. She was noted to be significantly hypotensive but not requiring an ICU stay. Blood pressure as low as 58/24. She was also noted to be anemic. She is reporting right leg pain from laying in bed, but has not been getting out of bed. Case management is looking for skilled placement for the patient. Certified landcare facilitator Cris used for the visit. ID # [id number]. ROS: Review of Systems Constitutional: Positive for fatigue. Pain in pelvis. Musculoskeletal: Right leg pain Medications: No current facility-administered medications on file prior to encounter. Current Outpatient Medications on File Prior to Encounter Medication Sig Dispense Refill [] acetaminophen (TYLENOL) 325 mg tablet Take 2 tablets (650 mg total) by mouth every 6 (six) hours if needed for mild pain or fever - temperature GREATER than 38 C (100.4 F) for up to 10 days. 30 tablet 0 ferrous sulfate 325 mg (65 mg elemental iron) tablet Take 1 tablet (325 mg total) by mouth 2 times daily. fluticasone propion-salmeteroL (ADVAIR DISKUS) 500-50 mcg/dose diskus inhaler Inhale 500 mcg by mouth 2 times daily. folic acid (FOLVITE) 1 mg tablet Take 1 tablet (1,000 mcg total) by mouth daily. hydrocortisone (ANUSOL-HC) 2.5 % rectal cream LORazepam (ATIVAN) 0.5 mg tablet Take 1 tablet (0.5 mg total) by mouth 2 (two) times a day if needed for anxiety. midodrine (PROAMATINE) 5 mg tablet Take 1 tablet (5 mg total) by mouth 3 (three) times a day beforemeals. 90 each 0 ondansetron (ZOFRAN) 8 mg tablet Take 1 tablet (8 mg total) by mouth every 8 (eight) hours if needed for nausea or vomiting. oxyCODONE (OxyCONTIN) 20 mg 12 hr abuse-deterrent tablet Take 1 tablet (20 mg total) by mouth every12 (twelve) hours. Do not crush, chew, or split. oxyCODONE (ROXICODONE) 5 mg immediate release tablet Take 1 tablet (5 mg total) by mouth every 4 (four) hours if needed for severe pain or moderate pain. risperiDONE (RisperDAL) 1 mg tablet Take 1 tablet (1 mg total) by mouth 2 (two) times a day. risperiDONE (RisperDAL) 4 mg tablet Take 1 tablet (4 mg total) by mouth at bedtime. melatonin 3 mg tablet Take 2 tablets (6 mg total) by mouth at bedtime as needed. (Patient not taking: Reported on 02/17/2024) [DISCONTINUED] docusate sodium (COLACE) 100 mg capsule Take 1 capsule (100 mg total) by mouth 2 times daily. (Patient not taking: Reported on 02/17/2024) [DISCONTINUED] magnesium hydroxide (MILK OF MAGNESIA) 400 mg/5 mL suspension Take 30 mL by mouth. (Patient not taking: Reported on 02/17/2024) [DISCONTINUED] nicotine (NICODERM CQ) 21 mg/[address] 1 patch on the skin 1 (one) time each day. (Patient not taking: Reported on 02/17/2024) [DISCONTINUED] prochlorperazine (COMPAZINE) 10 mg tablet Take 1 tablet (10 mg total) by mouth every8 (eight) hours if needed for nausea or vomiting. Imported vital signs, weight Visit Vitals BP 101/57 (BP Location: Left arm, Patient Position: Lying) Pulse 85 Temp 36.9 ??C (98.5 ??F) (Temporal) Resp 16 Ht 1.575 m (62 ) Wt 54.3 kg (119 lb 9.6 oz) LMP (LMP Unknown) SpO2 97% BMI 21.88 kg/m?? OB Status Unknown Smoking Status Former BSA 1.54 m?? Pain Score: 5 - Moderate pain Physical Exam: Physical Exam Constitutional: General: She is not in acute distress. HENT: Head: Normocephalic. Neurological: Mental Status: She is oriented to person, place, and time. Psychiatric: Mood and Affect: Mood normal. Behavior: Behavior normal. Thought Content: Thought content normal. Judgment: Judgment normal. Impression: Patients blood pressure is back to baseline. She is agreeable to resuming RT today. Encouraged to work with PT and OT. Plan: Will resume RT therapy. The office will arrange transportation. Clamp rocha catheter 1 hour prior to treatment. Roechristianneu sent to nurse Fiona RN to plan for 1245 pick-up time from transportation with treatment time of 1315 along with clamping of catheter instructions. Nickie Duron NP 02/23/24 11:04 AM EST * Patricia Gonzalez RN - 02/22/2024 7:01 PM EST Goals: Identify possible barriers to meeting goals/advancing plan of care: Stability of the patient: Moderately Stable - Low risk of patient condition declining or worsening End of Shift Summary: * Chelsea Pelayo PT - 02/22/2024 2:39 PM EST Therapy session was attempted for May by Chelsea Pelayo PT on 02/22/2024. The patient was unable to be seen for the following reason(s): Refused treatment and Other: too tired Plan for return visit: Tomorrow * Tono Stack MD - 02/22/2024 11:39 AM EST Images from the original note were not included. CHARITY PROGRESS NOTE Date: 02/22/2024 Author: Tono Stack MD Patient ID: Yanna Power is a 53 y.o. female : 1970 MR#: [id number] ASSESSMENT & PLAN Assessment/Plan Principal Problem: Dehydration with hyponatremia Yanna Power is a 53 y.o. female who has PMH of COPD/asthma, recently diagnosed squamous cell analcarcinoma, congenital deafness, schizophrenia. Patient presented to ED with complaints of weakness and malaise. She also reported low- grade temperature at home. CT abdomen showed heterogeneous mass in the pelvis involving rectum, vagina and labia. Chest x-ray showed no acute process. Patient was hypotensive, temperature 100.1 ??F, WBC of 6.1, sodium 128, creatinine 0.5. 1. Hypotension Patient presented with hypotension. She did not require ICU admission and was treated with midodrine and hydrocortisone. BP remained stable, will continue midodrine 5 mg 3 times daily. 2. 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 Patient has started chemoradiation with his poor performance status. Oncologist recommends physical therapy to improve her strength so she can continue treatment. She hasmalodorous vaginal discharge. 3. Anemia Hemoglobin stable at 8.4. No need for transfusion at this time. SUBJECTIVE Subjective Patient was seen in bed. Interviewed with the use of landcare facilitator. Patient complains of pain to her upper thighs. Also complains of abdominal pain. She denied nausea, vomiting, fever, chills, chest pain. Allergies Patient has no known allergies. Current Medications: ferrous sulfate, 325 mg, oral, Daily fludrocortisone, 0.1 mg, oral, Daily folic acid, 1,000 mcg, oral, Daily midodrine, 5 mg, oral, TID AC nicotine, 1 patch, transdermal, Daily oxyCODONE, 30 mg, oral, q12h polyetheylene glycol, 17 g, oral, Daily risperiDONE, 1 mg, oral, BID risperiDONE, 4 mg, oral, Nightly sodium chloride, 75 mL/hr, Last Rate: 75 mL/hr (02/22/24 0344) PRN medications: LORazepam, melatonin, ondansetron (ZOFRAN-ODT) disintegrating tablet, oxyCODONE, simethicone OBJECTIVE Vitals: 02/21/245 02/22/24 0045 02/22/24 0359 02/22/24 0815 BP: 108/56 125/62 109/54 (!) 95/45 BP Location: Left arm Left arm Left arm Right arm Patient Position: Lying Lying Lying Lying Pulse: 86 88 91 83 Resp: 18 16 20 16 Temp: 36.2 ??C (97.1 ??F) 36.9 ??C (98.5 ??F) 37.1 ??C (98.7 ??F) 37.1 ??C (98.8 ??F) TempSrc: Temporal Temporal Temporal Temporal SpO2: 98% 97% 96% 98% Weight: Height: Physical Exam Vitals and nursing note reviewed. Constitutional: General: She is not in acute distress. HENT: Head: Normocephalic and atraumatic. Nose: Nose normal. Mouth/Throat: Mouth: Mucous membranes are moist. Eyes: Extraocular Movements: Extraocular movements intact. Pupils: Pupils are equal, round, and reactive to light. Cardiovascular: Rate and Rhythm: Normal rate and regular rhythm. Pulmonary: Effort: Pulmonary effort is normal. No respiratory distress. Breath sounds: No wheezing or rales. Abdominal: General: There is no distension. Palpations: Abdomen is soft. Tenderness: There is abdominal tenderness (Suprapubic tenderness). There is no guarding or rebound. Comments: Colostomy present Genitourinary: Comments: Malodorous vaginal discharge Musculoskeletal: General: No swelling or deformity. Skin: General: Skin is warm and dry. Neurological: General: No focal deficit present. Mental Status: She is alert. Mental status is at baseline. LABS HEMATOLOGY Lab Results Component Value Date WBC 3.9 (L) 02/19/2024 HGB 8.4 (L) 02/20/2024 HCT 27.2 (L) 02/20/2024 MCV 79.9 02/19/2024 PLT 264 02/19/2024 CHEMISTRY Lab Results Component Value Date GLUCOSE 93 02/18/2024 NA 135 02/18/2024 K 3.5 02/18/2024 CO2 30 02/18/2024 CL 101 02/18/2024 BUN 3 (L) 02/18/2024 CREATININE 0.50 02/18/2024 EGFR 114 02/18/2024 CALCIUM 8.5 02/18/2024 MG 1.6 (L) 02/09/2024 ANIONGAP 4 02/18/2024 Recent Results (from the past 168 hour(s)) Respiratory virus panel molecular study Collection Time: 02/17/24 4:22 PM Specimen: Nares; Swab Result Value Ref Range Adenovirus Detection by PCR Not Detected Not Detected Influenza A PCR Not Detected Not Detected Influenza B PCR Not Detected Not Detected Coronavirus 229E Not Detected Not Detected Coronavirus HKU1 Not Detected Not Detected Coronavirus OC43 Not Detected Not Detected Coronavirus NL63 Not Detected Not Detected Parainfluenza Virus 1 Not Detected Not Detected Parainfluenza Virus 2 Not Detected Not Detected Parainfluenza Virus 3 Not Detected Not Detected Parainfluenza Virus 4 Not Detected Not Detected RSV PCR Not Detected Not Detected Human Metapneumovirus A and B Not Detected Not Detected Rhinovirus/Enterovirus Not Detected Not Detected Bordetella pertussis Not Detected Not Detected Bordetella parapertussis Not Detected Not Detected Mycoplasma pneumo by PCR Not Detected Not Detected Chlamydia pneumoniae Not Detected Not Detected SARS COV-2 Not Detected Not Detected Blood Culture, Peripheral #1 Collection Time: 02/17/24 4:24 PM Specimen: Blood, Venous Result Value Ref Range Culture, Blood No growth at 2 days Blood Culture, Peripheral #2 Collection Time: 02/17/24 4:27 PM Specimen: Blood, Venous Result Value Ref Range Culture, Blood No growth at 2 days Imaging: CT Abdomen Pelvis w Contrast Narrative: CT abdomen and pelvis with contrast Comparison: [...] nephrolithiasis measures 3 mm. There is a Rocha catheter in the bladder, which is decompressed. [...] along the right pelvic sidewall. No aneurysm. [id number] calcified and noncalcified atherosclerotic disease. No ascites. There is infiltration of the subcutaneous fat which may indicate anasarca. There is presacral edema. No acute osseous abnormality. Impression: Impression: Heterogeneous mass in the pelvis involving [...] by: Danielle Thompson MD on 02/17/2024 17:22:27 XR Chest 1 View Narrative: History: Generalized weakness. Personal history of anorectal [...] are sharp. Cholecystectomy clips are again seen. Impression: Impression: No active pulmonary process identified. Telerad PA ([id number]) -------- FINAL REPORT -------- Dictated By: Mae Oreilly Dictated Date: 02/17/2024 16:16 ET Assigned Physician: Mae Oreilly Reviewed and Electronically Signed By: Mae Oreilly Signed Date: 02/17/2024 16:17 ET Workstation ID: [id number] Transcribed By: Self Edit Transcribed Date: 02/17/2024 16:16 ET DAILY CARE CHECKLIST Length of Stay: 04d 02h 15m VTE Prophylaxis: Enoxaparin Resuscitation: Full Code - Default IV Access: Chest port Tubes, Catheters, Devices: None PCP: Sneha Li MD Disposition: Pending PT eval and clinical improvement Tono Stack MD 02/22/24 11:39 AM EST * Callie Spears RN - 02/21/2024 5:09 PM EST ICC met w Pt at bedside w video food service supervisor Ghada [id number] and discussed Pt Choice re: [facility]. Pt requesting [facility] or another venue closer to [place] - entered referrals into [facility] as requested. PT/OT evals still pending. * Tono Stack MD - 02/21/2024 3:40 PM EST Images from the original note were not included. CHARITY PROGRESS NOTE Date: 02/21/2024 Author: Tono Stack MD Patient ID: Yanna Power is a 53 y.o. female : 1970 MR#: [id number] ASSESSMENT & PLAN Assessment/Plan Principal Problem: Dehydration with hyponatremia Yanna Power is a 53 y.o. female who has PMH of COPD/asthma, recently diagnosed squamous cell analcarcinoma, congenital deafness, schizophrenia. Patient presented to ED with complaints of weakness and malaise. She also reported low- grade temperature at home. Patient was recently hospitalized for rectal abscess and completed course of antibiotic. CT abdomen showed heterogeneous mass in the pelvis involving rectum, vagina and labia. Chest x-ray showed no acute process. Patient was hypotensive,temperature 100.1 ??F, WBC of 6.1, sodium 128, creatinine 0.5. 1. Hypotension Patient presented with hypotension. She did not require ICU admission and was treated with midodrine and hydrocortisone. I will stop hydrocortisone, BP remains normal. Will continue midodrine 5 mg 3 times daily. 2. 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 Patient has started chemoradiation with his poor performance status. Oncologist recommends physical therapy to improve her strength so she can continue treatment. 3. Anemia Hemoglobin stable at 8.4. No need for transfusion at this time. SUBJECTIVE Subjective Patient was seen in bed. Interviewed with the use of landcare facilitator. Patient complains of lower abdominal pain. She has no other complaints. She denied nausea, vomiting, fever, chills, chest pain, shortness of breath. Allergies Patient has no known allergies. Current Medications: budesonide, 1 mg, nebulization, Daily And formoterol, 20 mcg, nebulization, BID ferrous sulfate, 325 mg, oral, Daily fludrocortisone, 0.1 mg, oral, Daily folic acid, 1,000 mcg, oral, Daily midodrine, 5 mg, oral, TID AC nicotine, 1 patch, transdermal, Daily oxyCODONE, 30 mg, oral, q12h polyetheylene glycol, 17 g, oral, Daily risperiDONE, 1 mg, oral, BID risperiDONE, 4 mg, oral, Nightly sodium chloride, 75 mL/hr, Last Rate: 75 mL/hr (02/21/24 1330) PRN medications: LORazepam, melatonin, ondansetron (ZOFRAN-ODT) disintegrating tablet, oxyCODONE, simethicone OBJECTIVE Vitals: 02/20/24 2305 02/21/24 0314 02/21/24 0841 02/21/24 1132 BP: 112/68 126/72 116/57 128/68 BP Location: Left arm Left arm Left arm Left arm Patient Position: Lying Lying Lying Lying Pulse: 74 73 72 75 Resp: 16 16 16 16 Temp: 37.2 ??C (99 ??F) 36.6 ??C (97.9 ??F) 36.6 ??C (97.9 ??F) TempSrc: Temporal Temporal Temporal Temporal SpO2: 98% 96% 97% 97% Weight: Height: Physical Exam Vitals and nursing note reviewed. Constitutional: General: She is not in acute distress. HENT: Head: Normocephalic and atraumatic. Nose: Nose normal. Mouth/Throat: Mouth: Mucous membranes are moist. Eyes: Extraocular Movements: Extraocular movements intact. Pupils: Pupils are equal, round, and reactive to light. Cardiovascular: Rate and Rhythm: Normal rate and regular rhythm. Pulmonary: Effort: Pulmonary effort is normal. No respiratory distress. Breath sounds: No wheezing or rales. Abdominal: General: There is no distension. Palpations: Abdomen is soft. Tenderness: There is abdominal tenderness (Suprapubic tenderness). There is no guarding or rebound. Comments: Colostomy present Musculoskeletal: General: No swelling or deformity. Skin: General: Skin is warm and dry. Neurological: General: No focal deficit present. Mental Status: She is alert. Mental status is at baseline. LABS HEMATOLOGY Lab Results Component Value Date WBC 3.9 (L) 02/19/2024 HGB 8.4 (L) 02/20/2024 HCT 27.2 (L) 02/20/2024 MCV 79.9 02/19/2024 PLT 264 02/19/2024 CHEMISTRY Lab Results Component Value Date GLUCOSE 93 02/18/2024 NA 135 02/18/2024 K 3.5 02/18/2024 CO2 30 02/18/2024 CL 101 02/18/2024 BUN 3 (L) 02/18/2024 CREATININE 0.50 02/18/2024 EGFR 114 02/18/2024 CALCIUM 8.5 02/18/2024 MG 1.6 (L) 02/09/2024 ANIONGAP 4 02/18/2024 Recent Results (from the past 168 hour(s)) Respiratory virus panel molecular study Collection Time: 02/17/24 4:22 PM Specimen: Nares; Swab Result Value Ref Range Adenovirus Detection by PCR Not Detected Not Detected Influenza A PCR Not Detected Not Detected Influenza B PCR Not Detected Not Detected Coronavirus 229E Not Detected Not Detected Coronavirus HKU1 Not Detected Not Detected Coronavirus OC43 Not Detected Not Detected Coronavirus NL63 Not Detected Not Detected Parainfluenza Virus 1 Not Detected Not Detected Parainfluenza Virus 2 Not Detected Not Detected Parainfluenza Virus 3 Not Detected Not Detected Parainfluenza Virus 4 Not Detected Not Detected RSV PCR Not Detected Not Detected Human Metapneumovirus A and B Not Detected Not Detected Rhinovirus/Enterovirus Not Detected Not Detected Bordetella pertussis Not Detected Not Detected Bordetella parapertussis Not Detected Not Detected Mycoplasma pneumo by PCR Not Detected Not Detected Chlamydia pneumoniae Not Detected Not Detected SARS COV-2 Not Detected Not Detected Blood Culture, Peripheral #1 Collection Time: 02/17/24 4:24 PM Specimen: Blood, Venous Result Value Ref Range Culture, Blood No growth at 2 days Blood Culture, Peripheral #2 Collection Time: 02/17/24 4:27 PM Specimen: Blood, Venous Result Value Ref Range Culture, Blood No growth at 2 days Imaging: CT Abdomen Pelvis w Contrast Narrative: CT abdomen and pelvis with contrast Comparison: [...] nephrolithiasis measures 3 mm. There is a Rocha catheter in the bladder, which is decompressed. [...] along the right pelvic sidewall. No aneurysm. [id number] calcified and noncalcified atherosclerotic disease. No ascites. There is infiltration of the subcutaneous fat which may indicate anasarca. There is presacral edema. No acute osseous abnormality. Impression: Impression: Heterogeneous mass in the pelvis involving [...] by: Danielle Thompson MD on 02/17/2024 17:22:27 XR Chest 1 View Narrative: History: Generalized weakness. Personal history of anorectal [...] are sharp. Cholecystectomy clips are again seen. Impression: Impression: No active pulmonary process identified. Telerad SONU ([id number]) -------- FINAL REPORT -------- Dictated By: Mae Oreilly Dictated Date: 02/17/2024 16:16 ET Assigned Physician: Mae Oreilly Reviewed and Electronically Signed By: Mae Oreilly Signed Date: 02/17/2024 16:17 ET Workstation ID: [id number] Transcribed By: Self Edit Transcribed Date: 02/17/2024 16:16 ET DAILY CARE CHECKLIST Length of Stay: 03d 06h 16m VTE Prophylaxis: Enoxaparin Resuscitation: Full Code - Default IV Access: Chest port Tubes, Catheters, Devices: None PCP: Sneha Li MD Disposition: Pending PT eval and clinical improvement Tono Stack MD 02/21/24 3:40 PM EST * Janet Nguyen RN - 02/20/2024 5:23 PM EST Goals: Identify possible barriers to meeting goals/advancing plan of care: . Stability of the patient: Moderately Stable - Low risk of patient condition declining or worsening End of Shift Summary: . * Callie Spears RN - 02/20/2024 2:21 PM EST 02/20/24 1416 Initial Transition Plan Initial Transition Plan Home Health Care ([facility]UE [facility]) Back up Transition Plan Back up Transition plan Residential Facility Discharge Planning Living Arrangements Alone Type of Residence Private residence Assistive Devices Wheelchair Support Systems Caregiver Pt is a READMISSION w recent JORD[facility] 02/09, home w care giving assistance via [facility]. PER EMR: IN ED since 02/16, needs landcare facilitator Barriers: hypotensive and FTT with decreased p.o. intake, wound, trend labs, Dispo: requesting STR, active w [facility] - mass in the pelvis involving rectum and vagina as wellas labia that was consistent with known history of anal cancer. * Al Gan MD - 02/20/2024 1:08 PM EST Images from the original note were not included. [facility] PROGRESS NOTE Date: 02/20/2024 Author: Al Gan MD Patient ID: Yanna Tono is a 53 y.o. female : 1970 MR#: [id number] SUBJECTIVE Subjective Patient seen by the bedside this morning No acute events overnight. Interview was done with help of ALS food service supervisor. Patient denies any new complaints. Feeling about the same. Denies any chest pain or shortness of breath. Telemetry monitoring due to hypotension. Discussed management plan with patient's sister over the phone, answered all the question. Will request oncology opinion. Allergies Patient has no known allergies. Current Medications: budesonide, 1 mg, nebulization, Daily And formoterol, 20 mcg, nebulization, BID ferrous sulfate, 325 mg, oral, Daily fludrocortisone, 0.1 mg, oral, Daily folic acid, 1,000 mcg, oral, Daily hydrocortisone sodium succinate, 50 mg, intravenous, q8h midodrine, 5 mg, oral, TID AC nicotine, 1 patch, transdermal, Daily oxyCODONE, 30 mg, oral, q12h polyetheylene glycol, 17 g, oral, Daily risperiDONE, 1 mg, oral, BID risperiDONE, 4 mg, oral, Nightly sodium chloride, 75 mL/hr, Last Rate: 75 mL/hr (02/20/24 1058) PRN medications: acetaminophen, LORazepam, melatonin, ondansetron (ZOFRAN-ODT) disintegrating tablet, oxyCODONE, simethicone OBJECTIVE Vitals: 02/19/24 2309 02/20/24 0254 02/20/24 0738 02/20/24 1124 BP: 100/56 110/67 108/59 106/58 BP Location: Left arm Left arm Left arm Patient Position: Lying Lying Lying Pulse: 74 68 75 72 Resp: 18 16 16 Temp: 36.1 ??C (97 ??F) 36.2 ??C (97.1 ??F) 37.1 ??C (98.7 ??F) 36.4 ??C (97.6 ??F) TempSrc: Temporal Temporal Temporal SpO2: 97% 97% 97% 98% Weight: Height: Physical Exam Constitutional: Appearance: She is ill-appearing. HENT: Head: Normocephalic. Cardiovascular: Rate and Rhythm: Normal rate and regular rhythm. Pulmonary: Effort: Pulmonary effort is normal. No respiratory distress. Breath sounds: Normal breath sounds. Abdominal: General: Bowel sounds are normal. There is no distension. Palpations: Abdomen is soft. Neurological: Motor: Weakness present. Psychiatric: Behavior: Behavior normal. LABS HEMATOLOGY Lab Results Component Value Date WBC 3.9 (L) 02/19/2024 HGB 8.4 (L) 02/19/2024 HCT 27.0 (L) 02/19/2024 MCV 79.9 02/19/2024 PLT 264 02/19/2024 CHEMISTRY Lab Results Component Value Date GLUCOSE 93 02/18/2024 NA 135 02/18/2024 K 3.5 02/18/2024 CO2 30 02/18/2024 CL 101 02/18/2024 BUN 3 (L) 02/18/2024 CREATININE 0.50 02/18/2024 EGFR 114 02/18/2024 CALCIUM 8.5 02/18/2024 MG 1.6 (L) 02/09/2024 ANIONGAP 4 02/18/2024 Imaging: CT Abdomen Pelvis w Contrast Narrative: CT abdomen and pelvis with contrast Comparison: [...] nephrolithiasis measures 3 mm. There is a Rocha catheter in the bladder, which is decompressed. [...] along the right pelvic sidewall. No aneurysm. [id number] calcified and noncalcified atherosclerotic disease. No ascites. There is infiltration of the subcutaneous fat which may indicate anasarca. There is presacral edema. No acute osseous abnormality. Impression: Impression: Heterogeneous mass in the pelvis involving [...] by: Danielle Thompson MD on 02/17/2024 17:22:27 XR Chest 1 View Narrative: History: Generalized weakness. Personal history of anorectal [...] are sharp. Cholecystectomy clips are again seen. Impression: Impression: No active pulmonary process identified. [facility] PA ([id number]) -------- FINAL REPORT -------- Dictated By: Mae Oreilly Dictated Date: 02/17/2024 16:16 ET Assigned Physician: Mae Oreilly Reviewed and Electronically Signed By: Mae Oreilly Signed Date: 02/17/2024 16:17 ET Workstation ID: [id number] Transcribed By: Self Edit Transcribed Date: 02/17/2024 16:16 ET ASSESSMENT & PLAN Assessment/Plan Principal Problem: Dehydration with hyponatremia No problem-specific Assessment & Plan notes found for this encounter. Patient is 53 years old female with past medical history significant for COPD, squamous cell carcinoma of the rectum, presented to the hospital with generalized weakness. Patient is on chemotherapy, radiation treatment with Dr. Diaz, Dr. Medrano. Patient was recently admitted for sepsis in the setting of soft tissue infection of the cancerous mass. Patient was treated with IV antibiotics and subsequently discharged on oral antibiotics. # Hypotension, dehydration # Hypovolemic hyponatremia -Patient was hypotensive upon presentation, systolic 58/24. Labs reviewed noted hyponatremia with sodium of 128, subsequently improved. -CT abdomen pelvis obtained upon presentation showed heterogeneous mass in the pelvis involving therectum, vagina, labia consistent with history of cancer. Mild interval decrease in size noted giventhe treatment. Slight interval increase in size and malignant lymphadenopathy. -Patient was seen by ICU filling layer up given the hypotension. Recommended to increase the dose of oral midodrine to 10 mg 3 times daily, also ordered hydrocortisone 50 mg IV 3 times daily and Florinef 0.1 mg p.o. daily. -Continue IV fluids and monitor blood pressures closely. Continue telemetry monitoring. -decreasing the midodrine to 5mg tid. Cont iv fluids. Opioids likely contributing to hypotension. Will change oxycodone to 5 tid prn. # Squamous cell carcinoma, rectal mass. # Chronic pain -Patient will need outpatient follow-up with oncology and radiation oncology. -Will hold off on further antibiotics. Patient recently completed oral antibiotics. -Pain management with oxycodone, OxyContin. Oncology consult today. # History of schizophrenia -Continue risperidone, Ativan 0.5 mg p.o. twice daily as needed for anxiety. # History of COPD -Continue formoterol, budesonide nebulization. # Disposition -Continue telemetry monitoring given the hypotension. Total time spent 38 minutes doing chart review, interviewing patient, gathering information, performing physical exam, formulating plan, explaining management plan to patient, coordinating care with specialists, coordinating care with RN, documentation and placing orders. This dictation was performed using voice recognition software. Word substitution may have occurred and may have gone unnoticed and uncorrected * Janet Nguyen RN - 02/19/2024 5:12 PM EST Goals: Identify possible barriers to meeting goals/advancing plan of care: . Stability of the patient: Moderately Stable - Low risk of patient condition declining or worsening End of Shift Summary: . * Al Gna MD - 02/19/2024 11:05 AM EST Images from the original note were not included. [facility] PROGRESS NOTE Date: 02/19/2024 Author: Al Gan MD Patient ID: Yanna Power is a 53 y.o. female : 1970 MR#: [id number] SUBJECTIVE Subjective Patient seen by the bedside this morning No acute events overnight. Patient is comfortable appearing and not in distress. Interview was donewith help of ALS light rail signal technician. Patient is feeling about the same. Not much of appetite. Feeling tired. Currently in telemetry unit given the borderline blood pressures. Allergies Patient has no known allergies. Current Medications: budesonide, 1 mg, nebulization, Daily And formoterol, 20 mcg, nebulization, BID ferrous sulfate, 325 mg, oral, Daily fludrocortisone, 0.1 mg, oral, Daily folic acid, 1,000 mcg, oral, Daily hydrocortisone sodium succinate, 50 mg, intravenous, q8h midodrine, 10 mg, oral, TID AC oxyCODONE, 30 mg, oral, q12h risperiDONE, 1 mg, oral, BID risperiDONE, 4 mg, oral, Nightly sodium chloride, 75 mL/hr, Last Rate: 75 mL/hr (02/19/24 0843) PRN medications: acetaminophen, LORazepam, melatonin, ondansetron (ZOFRAN-ODT) disintegrating tablet, oxyCODONE, simethicone OBJECTIVE Vitals: 02/18/24202502/19/24 0001 02/19/24 0331 02/19/24 0755 BP: 98/58 99/56 95/55 100/58 BP Location: Left arm Left arm Left arm Left arm Patient Position: Lying Lying Lying Lying Pulse: 74 78 72 74 Resp: 16 16 16 16 Temp: 36.1 ??C (97 ??F) 35.9 ??C (96.7 ??F) 36.1 ??C (97 ??F) 36.1 ??C (97 ??F) TempSrc: Temporal Temporal Temporal Temporal SpO2: 96% 95% 95% Weight: Height: Physical Exam Constitutional: Appearance: She is ill-appearing. HENT: Head: Normocephalic. Cardiovascular: Rate and Rhythm: Normal rate and regular rhythm. Pulmonary: Effort: Pulmonary effort is normal. No respiratory distress. Breath sounds: Normal breath sounds. Abdominal: General: Bowel sounds are normal. There is no distension. Palpations: Abdomen is soft. Neurological: Motor: Weakness present. Psychiatric: Behavior: Behavior normal. LABS HEMATOLOGY Lab Results Component Value Date WBC 3.9 (L) 02/19/2024 HGB 8.4 (L) 02/19/2024 HCT 27.0 (L) 02/19/2024 MCV 79.9 02/19/2024 PLT 264 02/19/2024 CHEMISTRY Lab Results Component Value Date GLUCOSE 93 02/18/2024 NA 135 02/18/2024 K 3.5 02/18/2024 CO2 30 02/18/2024 CL 101 02/18/2024 BUN 3 (L) 02/18/2024 CREATININE 0.50 02/18/2024 EGFR 114 02/18/2024 CALCIUM 8.5 02/18/2024 MG 1.6 (L) 02/09/2024 ANIONGAP 4 02/18/2024 Imaging: CT Abdomen Pelvis w Contrast Narrative: CT abdomen and pelvis with contrast Comparison: [...] nephrolithiasis measures 3 mm. There is a Rocha catheter in the bladder, which is decompressed. [...] along the right pelvic sidewall. No aneurysm. Qrkq-it-gudhtmno calcified and noncalcified atherosclerotic disease. No ascites. There is infiltration of the subcutaneous fat which may indicate anasarca. There is presacral edema. No acute osseous abnormality. Impression: Impression: Heterogeneous mass in the pelvis involving [...] by: Danielle Thompson MD on 02/17/2024 17:22:27 XR Chest 1 View Narrative: History: Generalized weakness. Personal history of anorectal [...] are sharp. Cholecystectomy clips are again seen. Impression: Impression: No active pulmonary process identified. [facility] PA ([id number]) -------- FINAL REPORT -------- Dictated By: Mae Oreilly Dictated Date: 02/17/2024 16:16 ET Assigned Physician: Mae Oreilly Reviewed and Electronically Signed By: Mae Oreilly Signed Date: 02/17/2024 16:17 ET Workstation ID: [id number] Transcribed By: Self Edit Transcribed Date: 02/17/2024 16:16 ET ASSESSMENT & PLAN Assessment/Plan Principal Problem: Dehydration with hyponatremia No problem-specific Assessment & Plan notes found for this encounter. Patient is 53 years old female with past medical history significant for COPD, squamous cell carcinoma of the rectum, presented to the hospital with generalized weakness. Patient is on chemotherapy, radiation treatment with Dr. Diaz, Dr. Medrano. Patient was recently admitted for sepsis in the setting of soft tissue infection of the cancerous mass. Patient was treated with IV antibiotics and subsequently discharged on oral antibiotics. # Hypotension, dehydration # Hypovolemic hyponatremia -Patient was hypotensive upon presentation, systolic 58/24. Labs reviewed noted hyponatremia with sodium of 128, subsequently improved. -CT abdomen pelvis obtained upon presentation showed heterogeneous mass in the pelvis involving therectum, vagina, labia consistent with history of cancer. Mild interval decrease in size noted giventhe treatment. Slight interval increase in size and malignant lymphadenopathy. -Patient was seen by ICU filling layer up given the hypotension. Recommended to increase the dose of oral midodrine to 10 mg 3 times daily, also ordered hydrocortisone 50 mg IV 3 times daily and Florinef 0.1 mg p.o. daily. -Continue IV fluids and monitor blood pressures closely. Continue telemetry monitoring. -Monitor sodium levels closely # Squamous cell carcinoma, rectal mass. # Chronic pain -Patient will need outpatient follow-up with oncology and radiation oncology. -Will hold off on further antibiotics. Patient recently completed oral antibiotics. -Pain management with oxycodone, OxyContin. # History of schizophrenia -Continue risperidone, Ativan 0.5 mg p.o. twice daily as needed for anxiety. # History of COPD -Continue formoterol, budesonide nebulization. # Disposition -Continue telemetry monitoring given the hypotension. Anticipate dc 02/20/24 Total time spent 35 minutes doing chart review, interviewing patient, gathering information, performing physical exam, formulating plan, explaining management plan to patient, coordinating care with specialists, coordinating care with RN, documentation and placing orders. This dictation was performed using voice recognition software. Word substitution may have occurred and may have gone unnoticed and uncorrected * Evelyn Chris RN - 02/19/2024 5:23 AM EST Goals: Identify possible barriers to meeting goals/advancing plan of care: Stability of the patient: Moderately Stable - Low risk of patient condition declining or worsening End of Shift Summary: * Al Gan MD - 02/18/2024 2:42 PM EST Images from the original note were not included. [facility] PROGRESS NOTE Date: 02/18/2024 Author: Al Gan MD Patient ID: Yanna Power is a 53 y.o. female : 1970 MR#: [id number] SUBJECTIVE Subjective Patient seen by the bedside this morning Patient was hypotensive earlier, blood pressure slightly improved this morning. Discussed with ICU filling layer up, recommending oral midodrine, hydrocortisone, Florinef. Patient is asymptomatic Allergies Patient has no known allergies. Current Medications: budesonide, 1 mg, nebulization, Daily And formoterol, 20 mcg, nebulization, BID ferrous sulfate, 325 mg, oral, Daily fludrocortisone, 0.1 mg, oral, Daily folic acid, 1,000 mcg, oral, Daily hydrocortisone sodium succinate, 50 mg, intravenous, q8h midodrine, 10 mg, oral, TID AC oxyCODONE, 30 mg, oral, q12h risperiDONE, 1 mg, oral, BID risperiDONE, 4 mg, oral, Nightly dextrose, 75 mL/hr, Last Rate: 75 mL/hr (02/18/24 0844) PRN medications: acetaminophen, LORazepam, melatonin, ondansetron (ZOFRAN-ODT) disintegrating tablet, oxyCODONE OBJECTIVE Vitals: 02/18/24 0931 02/18/24 1010 02/18/24 1103 02/18/24 1119 BP: 100/62 105/54 97/56 97/56 BP Location: Patient Position: Pulse: 78 73 Resp: Temp: TempSrc: SpO2: 95% Weight: Height: Physical Exam Constitutional: Appearance: She is ill-appearing. HENT: Head: Normocephalic. Cardiovascular: Rate and Rhythm: Normal rate and regular rhythm. Pulmonary: Effort: Pulmonary effort is normal. No respiratory distress. Breath sounds: Normal breath sounds. Abdominal: General: Bowel sounds are normal. There is no distension. Palpations: Abdomen is soft. Neurological: Motor: Weakness present. Psychiatric: Behavior: Behavior normal. LABS HEMATOLOGY Lab Results Component Value Date WBC 4.5 (L) 02/18/2024 HGB 7.1 (L) 02/18/2024 HCT 23.3 (L) 02/18/2024 MCV 79.5 02/18/2024 PLT 231 02/18/2024 CHEMISTRY Lab Results Component Value Date GLUCOSE 93 02/18/2024 NA 135 02/18/2024 K 3.5 02/18/2024 CO2 30 02/18/2024 CL 101 02/18/2024 BUN 3 (L) 02/18/2024 CREATININE 0.50 02/18/2024 EGFR 114 02/18/2024 CALCIUM 8.5 02/18/2024 MG 1.6 (L) 02/09/2024 ANIONGAP 4 02/18/2024 Imaging: CT Abdomen Pelvis w Contrast Narrative: CT abdomen and pelvis with contrast Comparison: [...] nephrolithiasis measures 3 mm. There is a Rocha catheter in the bladder, which is decompressed. [...] along the right pelvic sidewall. No aneurysm. Kcqk-uz-otgydplb calcified and noncalcified atherosclerotic disease. No ascites. There is infiltration of the subcutaneous fat which may indicate anasarca. There is presacral edema. No acute osseous abnormality. Impression: Impression: Heterogeneous mass in the pelvis involving [...] by: Danielle Thompson MD on 02/17/2024 17:22:27 XR Chest 1 View Narrative: History: Generalized weakness. Personal history of anorectal [...] are sharp. Cholecystectomy clips are again seen. Impression: Impression: No active pulmonary process identified. [facility] [place] ([id number]) -------- FINAL REPORT -------- Dictated By: Mae Oreilly Dictated Date: 02/17/2024 16:16 ET Assigned Physician: Mae Oreilly Reviewed and Electronically Signed By: Mae Oreilly Signed Date: 02/17/2024 16:17 ET Workstation ID: [id number] Transcribed By: Self Edit Transcribed Date: 02/17/2024 16:16 ET ASSESSMENT & PLAN Assessment/Plan Principal Problem: Dehydration with hyponatremia No problem-specific Assessment & Plan notes found for this encounter. Patient is 53 years old female with past medical history significant for COPD, squamous cell carcinoma of the rectum, presented to the hospital with generalized weakness. Patient is on chemotherapy, radiation treatment with Dr. Diaz, Dr. Medrano. Patient was recently admitted for sepsis in the setting of soft tissue infection of the cancerous mass. Patient was treated with IV antibiotics and subsequently discharged on oral antibiotics. # Hypotension, dehydration # Hypovolemic hyponatremia -Patient was hypotensive upon presentation, systolic 58/24. Labs reviewed noted hyponatremia with sodium of 128. Noted low albumin levels 1.7. -CT abdomen pelvis obtained upon presentation showed heterogeneous mass in the pelvis involving therectum, vagina, labia consistent with history of cancer. Mild interval decrease in size noted giventhe treatment. Slight interval increase in size and malignant lymphadenopathy. -Patient was seen by ICU filling layer up given the hypotension. Recommending to increase the dose of oral midodrine to 10 mg 3 times daily, also ordered hydrocortisone 50 mg IV 3 times daily and Florinef0.1 mg p.o. daily. -Continue IV fluids and monitor blood pressures closely. Continue telemetry monitoring. -Monitor sodium levels closely # Squamous cell carcinoma, rectal mass. # Chronic pain -Patient will need outpatient follow-up with oncology and radiation oncology. -Will hold off on further antibiotics. Patient recently completed oral antibiotics. -Pain management with oxycodone, OxyContin. # History of schizophrenia -Continue risperidone, Ativan 0.5 mg p.o. twice daily as needed for anxiety. # History of COPD -Continue formoterol, budesonide nebulization. # Disposition -Continue telemetry monitoring given the hypotension. Anticipate another 24 to 48 hours for improvement. Total time spent 40 minutes doing chart review, interviewing patient, gathering information, performing physical exam, formulating plan, explaining management plan to patient, coordinating care with specialists, coordinating care with RN, documentation and placing orders. This dictation was performed using voice recognition software. Word substitution may have occurred and may have gone unnoticed and uncorrected * SONU Daniel - 02/18/2024 7:00 AM EST Cross coverage notified that pt has been hypotensive with Bps of 77/44, 71/21. Pt alert and oriented, asymptomatic. Additional albumin ordered. At this time CBC and BMP were ordered as well. Repeat BP at 0430 58/24, pt sleeping, asymptomatic. Lab work returned with sodium increased from 128 to 135. Hgb dropped from 8.6 to 7.1 Normal saline switched to D5W (although it was cancelled, unsure by who) ICU was consulted. ICU placed orders for Albumin 5%, increased Midodrine to 10 mg, added Solu-Cortef and Fludrocortisone. Pt to be transferred to [facility], procalcitonin, and lactate pending. * Penny Mcghee RN - 02/18/2024 3:09 AM EST Goals: Identify possible barriers to meeting goals/advancing plan of care: Stability of the patient: Moderately Stable - Low risk of patient condition declining or worsening End of Shift Summary: Problem: Sensory: Acute Pain Goal: Pain level will improve or be tolerable Outcome: Progressing Goal: Ability to develop a pain control plan will improve Outcome: Progressing Problem: Cognitive: Acute Pain Goal: Expressions of feelings of enhanced comfort will increase Outcome: Progressing Problem: Patient Specific Problem: Acute Pain Goal: Patient Specific Outcome Outcome: Progressing * Jennifer Mcdaniel RN - 02/17/2024 7:06 PM EST ED RN HANDOFF (All Farmer Below Must Be Completed) Reason/Diagnosis for Admission: Type of Admission: [x] Medsurg, [] Telemetry Already in a Hospital Bed: [] Yes / [x] No Room Considerations/Precautions (ex: fever, diarrhea, or any infectious concerns): [] Yes / [x] No Zone Maintenance Technician: [] Yes / [x] No If YES, Cardiac Rhythm: [] NSR, [] SB, [] ST, [] A-FIB, [] A-Flutter, [] Pacemaker, [] 1st Degree HB, [] 2nd Degree HB, [] 3rd Degree HB Reason for Zone Maintenance Technician: VS: Visit Vitals BP (!) 87/41 (BP Location: Left arm, Patient Position: Lying) Pulse 84 Temp 37.8 ??C (100.1 ??F) (Oral) Resp 16 Ht 1.575 m (62 ) Wt 51.7 kg (114 lb) LMP (LMP Unknown) SpO2 98% BMI 20.85 kg/m?? OB Status Unknown Smoking Status Former BSA 1.51 m?? Current Mental Status: A/O x [x]4, []3, []2, []1 Current Ambulation Status: IV Access: [x] Yes / [] No Field IV present: [] Yes / [x] No Hx of Violence: [] Yes / [x] No / [] Unknown Fall Risk:[x] Yes / [] No Yellow Bracelet Applied [x] Yes / [] No Yellow Socks Applied [] Yes / [] No Patient Belongings inventoried and BL completed: [] Yes / [] No Patient belongings stored in the security closet: [] Yes (If Yes please supply Security bag #): [x] No Patient Medications stored in Pharmacy: [] Yes (If Yes please supply Medication Security bag #): [x] No ED Summary of Care: Rocha changed today. Pressures soft. See trend. Submitted by and Phone Extension: Jennifer Mcdaniel, [phone] * Jennifer Mcdaniel RN - 02/17/2024 2:15 PM EST Patient arrives via EMS from home for abdominal pain and buttocks that started today. Deaf at baseline and has REVENUE INSPECTOR's at home for care. * Carlos Malave MD - 02/17/2024 2:00 PM EST Emergency Medicine Note Patient Name: Yanna Power Initial Evaluation: 02/17/2024 : 1970 Patient's PCP: Sneha Li MD Emergency Physician: Carlos Malave MD History of Present Illness Chief Complaint: Chief Complaint Patient presents with Abdominal Pain 10/10 abdominal pain with dizziness 53-year-old female with history of anal cancer, COPD, congenital deafness, nicotine dependence, schizoaffective schizophrenia presents with caregiver for evaluation of fever and malaise. States that she was diagnosed with cancer recently and is now undergoing chemotherapy and radiation therapy. Shewas slated to go to radiation therapy today but developed abdominal pain and pain in the buttock aswell over the last 24 hours. Reports fever yesterday as well. Reports general malaise but denies cough, sore throat, vomiting, diarrhea. History provided by: Patient anchor tacker used: Yes (ALS) ROS: I have performed a ROS with the pertinent positives and negatives documented in the history ofpresent illness. Previous History Past Medical History: Diagnosis Date Cancer of anus ([facility]) Congenital deafness 03/21/2023 COPD (chronic obstructive pulmonary disease) ([facility]) 03/21/2023 DX:COPD (chronic obstructive pulmonary disease) ([facility]) Leukocytosis 03/21/2023 DX:Leukocytosis Low vitamin D level 03/21/2023 Nicotine dependence 03/21/2023 Port-A-Cath in place Schizo affective schizophrenia ([facility]) [place] [place] 12/25/2023 Past Surgical History: Procedure Laterality Date APPENDECTOMY CHOLECYSTECTOMY COLOSTOMY FOOT SURGERY TUBAL LIGATION Social History Tobacco Use Smoking status: Former Types: Cigarettes Smokeless tobacco: Never Substance Use Topics Alcohol use: Not Currently Drug use: Never No family history on file. has No Known Allergies. Current Facility-Administered Medications on File Prior to Encounter Medication Dose Route Frequency Provider Last Rate Last Admin [MAR Hold] sodium chloride 0.9 % flush 10 mL 10 mL intravenous PRN Arlen Medrano, DO 10 mL at 02/16/24 1500 Current Outpatient Medications on File Prior to Encounter Medication Sig Dispense Refill acetaminophen (TYLENOL) 325 mg tablet Take 2 tablets (650 mg total) by mouth every 6 (six) hours ifneeded for mild pain or fever - temperature GREATER than 38 C (100.4 F) for up to 10 days. 30 tablet 0 [] amoxicillin-clavulanate (AUGMENTIN) 875-125 mg per tablet Take 1 tablet by mouth 2 (two) times a day for 5 days. 10 each 0 docusate sodium (COLACE) 100 mg capsule Take 1 capsule (100 mg total) by mouth 2 times daily. [] doxycycline (VIBRAMYCIN) 100 mg capsule Take 1 capsule (100 mg total) by mouth 2 (two) times a day for 5 days. Take with at least 8 ounces (large glass) of water, do not lie down for 30 minutes after 10 each 0 ferrous sulfate 325 mg (65 mg elemental iron) tablet Take 1 tablet (325 mg total) by mouth 2 times daily. fluticasone propion-salmeteroL (ADVAIR DISKUS) 500-50 mcg/dose diskus inhaler Inhale 500 mcg by mouth 2 times daily. folic acid (FOLVITE) 1 mg tablet Take 1 tablet (1,000 mcg total) by mouth daily. hydrocortisone (ANUSOL-HC) 2.5 % rectal cream LORazepam (ATIVAN) 0.5 mg tablet Take 1 tablet (0.5 mg total) by mouth 2 (two) times a day if needed for anxiety. magnesium hydroxide (MILK OF MAGNESIA) 400 mg/5 mL suspension Take 30 mL by mouth. melatonin 3 mg tablet Take 2 tablets (6 mg total) by mouth at bedtime as needed. midodrine (PROAMATINE) 5 mg tablet Take 1 tablet (5 mg total) by mouth 3 (three) times a day beforemeals. 90 each 0 nicotine (NICODERM CQ) 21 mg/[address] 1 patch on the skin 1 (one) time each day. ondansetron (ZOFRAN) 8 mg tablet Take 1 tablet (8 mg total) by mouth every 8 (eight) hours if needed for nausea or vomiting. oxyCODONE (OxyCONTIN) 20 mg 12 hr abuse-deterrent tablet Take 1 tablet (20 mg total) by mouth every12 (twelve) hours. Do not crush, chew, or split. oxyCODONE (ROXICODONE) 5 mg immediate release tablet Take 1 tablet (5 mg total) by mouth every 4 (four) hours if needed for severe pain or moderate pain. prochlorperazine (COMPAZINE) 10 mg tablet Take 1 tablet (10 mg total) by mouth every 8 (eight) hours if needed for nausea or vomiting. risperiDONE (RisperDAL) 1 mg tablet Take 1 tablet (1 mg total) by mouth 2 (two) times a day. risperiDONE (RisperDAL) 4 mg tablet Take 1 tablet (4 mg total) by mouth at bedtime. Physical Exam ED Triage Vitals [02/17/24 1427] Temp Heart Rate Resp BP 36.7 ??C (98.1 ??F) 81 -- 100/64 SpO2 Temp Source Heart Rate Source Patient Position 98 % Oral Monitor Sitting BP Location FiO2 (%) Right arm -- Physical Exam Vitals and nursing note reviewed. Constitutional: Appearance: Normal appearance. She is not ill-appearing. HENT: Head: Normocephalic. Mouth/Throat: Mouth: Mucous membranes are moist. Eyes: Conjunctiva/sclera: Conjunctivae normal. Cardiovascular: Rate and Rhythm: Normal rate and regular rhythm. Pulmonary: Effort: Pulmonary effort is normal. Breath sounds: Normal breath sounds. No stridor. Abdominal: Palpations: Abdomen is soft. Tenderness: There is generalized abdominal tenderness. Musculoskeletal: Cervical back: Normal range of motion. Right lower leg: No swelling or tenderness. No edema. Left lower leg: No swelling or tenderness. No edema. Skin: General: Skin is warm and dry. Comments: Skin is warm and dry except for area of the right medial buttock where there is a skin ulcer that is full-thickness with fat layer visible. Wound edges are irregular and there is fibrin andslough overlying the wound bed. There does not appear to be any tunneling or undermining. There is surrounding erythema. Neurological: General: No focal deficit present. Mental Status: She is alert. Psychiatric: Attention and Perception: Attention normal. Behavior: Behavior normal. Results Labs Reviewed LIPASE - Abnormal Result Value Lipase 10 (*) URINALYSIS WITH REFLEX MICROSCOPIC AND CULTURE - Abnormal Specific [place] Urine >1.045 (*) pH, Urine 6.0 Leukocytes, Urine Negative Nitrite, Urine Negative Protein, Urine 30 (*) Glucose, Urine Negative Ketones, Urine Negative Urobilinogen, Urine 0.2 Bilirubin, Urine Negative Blood, Urine Small (*) RBC, Urine 4.0 WBC, Urine 4.0 Squamous Epithelial, Urine >100 (*) Non-Squamous Epithelial, Urine Value: Rare Renal Tubular epithelial cells. 5-10 Transitional epithelial cells. Crystals, Urine Value: Light Calcium Oxalate crystals. Light Amorphous Urate crystals. Bacteria, Urine Negative COMPREHENSIVE METABOLIC PANEL - Abnormal Sodium 128 (*) Potassium 3.7 Chloride 95 (*) CO2 29 Anion Gap 4 Glucose 106 (*) BUN 6 Creatinine 0.52 eGFR 113 BUN/Creatinine Ratio 11.5 Calcium 8.7 AST (SGOT) 13 ALT (SGPT) 14 Alkaline Phosphatase 98 Total Protein 5.0 (*) Albumin 1.7 (*) Total Bilirubin 0.4 CBC WITH AUTO DIFFERENTIAL - Abnormal WBC 6.1 RBC 3.40 (*) Hemoglobin 8.6 (*) Hematocrit 27.5 (*) MCV 80.6 MCH 25.2 (*) MCHC 31.3 (*) RDW 19.9 (*) Platelets 261 MPV 9.9 NRBC 0.0 NRBC Absolute 0.00 Neutrophils Relative 67.6 Lymphocytes Relative 23.7 Monocytes Relative 3.0 Eosinophils Relative 2.1 Basophils Relative 0.3 Immature Granulocytes Relative 3.3 Neutrophils Absolute 4.10 Lymphocytes Absolute 1.44 Monocytes Absolute 0.18 (*) Eosinophils Absolute 0.13 Basophils Absolute 0.02 Immature Granulocytes Absolute 0.20 (*) RESPIRATORY VIRUS PANEL MOLECULAR STUDY - Normal Adenovirus Detection by PCR Not Detected Influenza A PCR Not Detected Influenza B PCR Not Detected Coronavirus 229E Not Detected Coronavirus HKU1 Not Detected Coronavirus OC43 Not Detected Coronavirus NL63 Not Detected Parainfluenza Virus 1 Not Detected Parainfluenza Virus 2 Not Detected Parainfluenza Virus 3 Not Detected Parainfluenza Virus 4 Not Detected RSV PCR Not Detected Human Metapneumovirus A and B Not Detected Rhinovirus/Enterovirus Not Detected Bordetella pertussis Not Detected Bordetella parapertussis Not Detected Mycoplasma pneumo by PCR Not Detected Chlamydia pneumoniae Not Detected SARS COV-2 Not Detected Narrative: Testing was performed using the [employer] Respiratory Pathogen PCR Assay. All results must [...] that are below the limit of detection. LACTATE, WITH REFLEX - Normal LACTIC ACID 1.2 CULTURE BLOOD Culture, Blood Culture in progress CULTURE BLOOD Culture, Blood Culture in progress CBC AND DIFFERENTIAL Narrative: The following orders were created for panel order CBC and differential. Procedure Abnormality Status --------- ------ CBC auto differential[[id number]] Abnormal Final result Please view results for these tests on the individual orders. URINALYSIS WITH REFLEX MICROSCOPIC AND CULTURE Narrative: The following orders were created for panel order Urinalysis with reflex microscopic and culture. Procedure Abnormality Status --------- ------ Urinalysis with reflex ...[[id number]] Abnormal Final result Carranza urine culture tube[[id number]] In process Please view results for these tests on the individual orders. Abnormal Labs Reviewed LIPASE - Abnormal; Notable for the following components: Result Value Lipase 10 (*) All other components within normal limits URINALYSIS WITH REFLEX MICROSCOPIC AND CULTURE - Abnormal; Notable for the following components: Specific Spark[place] Urine >1.045 (*) Protein, Urine 30 (*) Blood, Urine Small (*) Squamous Epithelial, Urine >100 (*) All other components within normal limits COMPREHENSIVE METABOLIC PANEL - Abnormal; Notable for the following components: Sodium 128 (*) Chloride 95 (*) Glucose 106 (*) Total Protein 5.0 (*) Albumin 1.7 (*) All other components within normal limits CBC WITH AUTO DIFFERENTIAL - Abnormal; Notable for the following components: RBC 3.40 (*) Hemoglobin 8.6 (*) Hematocrit 27.5 (*) MCH 25.2 (*) MCHC 31.3 (*) RDW 19.9 (*) Monocytes Absolute 0.18 (*) Immature Granulocytes Absolute 0.20 (*) All other components within normal limits CT Abdomen Pelvis w Contrast Final Result Impression: Heterogeneous mass in the pelvis involving [...] by: Danielle Thompson MD on 02/17/2024 17:22:27 XR Chest 1 View Final Result Impression: No active pulmonary process identified. Telerad PA ([id number]) -------- FINAL REPORT -------- Dictated By: Mae Oreilly Dictated Date: 02/17/2024 16:16 ET Assigned Physician: Mae Oreilly Reviewed and Electronically Signed By: Mae Oreilly Signed Date: 02/17/2024 16:17 ET Workstation ID: [id number] Transcribed By: Self Edit Transcribed Date: 02/17/2024 16:16 ET I have discussed the incidental/abnormal imaging and/or lab abnormalities with the patient and haveinstructed them the need for further evaluation and workup with their primary care doctor. I have provided the patient with a paper copy of the abnormality. The laboratory results, imaging results and other diagnostic exam results were reviewed in the EMR. EKG Interpretation Critical Care Time None ? Differential Diagnosis Upper respiratory infection, bronchitis, pneumonia, gastroenteritis, cholecystitis, urinary tract infection, pyelonephritis, viral syndrome, meningitis, encephalitis Medical Decision Making Medical Decision Making Borderline hypotension on arrival but no tachycardia or fever today. Wide differential in this patient with cancer and receiving chemotherapy and radiation. I do have some concern for wound infectioncausing her fever but will screen for viral pathogens and obtain urinalysis, chest x-ray and abdominal CT as well. Will hold off on empiric antibiotics until viral swab is back. I do anticipate admission. Amount and/or Complexity of Data Reviewed Independent Historian: caregiver Details: Bedside on arrival and he reports that the patient will need additional resources at time of discharge that she is unable to stand and care for herself now. Her REVENUE INSPECTOR became overwhelmed and quit recently as well. Medications iopamidoL (ISOVUE-370) 370 mg iodine /mL (76 %) injection 100 mL (has no administration in time range) albumin human 25 % infusion 25 g (has no administration in time range) morphine injection 4 mg (has no administration in time range) morphine injection 4 mg (4 mg intravenous Given 02/17/24 1535) ondansetron (PF) (ZOFRAN) injection 4 mg (4 mg intravenous Given 02/17/24 1531) sodium chloride 0.9 % bolus 1,000 mL (0 mL intravenous Stopped 02/17/24 1730) sodium chloride 0.9 % flush 10 mL (10 mL intravenous Given 02/17/24 1650) iopamidoL (ISOVUE-370) 370 mg iodine /mL (76 %) injection 100 mL (90 mL intravenous Given 02/17/24 1651) sodium chloride 0.9 % flush 10 mL (10 mL intravenous Given 02/17/24 1719) ED Course as of 02/17/24 1845 Tue Feb 17, [address] Abdomen Pelvis w Contrast [TC] 1800 Respiratory virus panel molecular study Viral respiratory panel is negative. [TC] 1844 CT of the abdomen pelvis shows mild decrease in cancer bulk with anasarca of the lower abdomen. Blood work shows evidence of dehydration and poor intake with hyponatremia, hypoalbuminemia. Respiratory viral panel is negative. Blood work also shows worsening anemia, likely due to chronic disease. Does not meet threshold for transfusion at this time. Discussed with Dr. Mercer for hospitalization. [TC] ED Course User Index [TC] Carlos Malave MD Clinical Impressions as of 02/17/241844 Dehydration Generalized abdominal pain Diabetic ulcer of right buttock (CMS/HCC) Hyponatremia Anal cancer (CMS/HCC) Procedures Procedures Diagnosis 1. Dehydration 2. Generalized abdominal pain 3. Diabetic ulcer of right buttock (CMS/HCC) 4. Hyponatremia 5. Anal cancer (CMS/HCC) Disposition Admit to Inpatient ED Prescriptions None Physician Attestation Please note that this chart has been created using speech recognition software and may contain errors related to that system, including errors in grammar, punctuation, and spelling. It may also include errors in words and phrases. If there are any questions or concerns, please feel free to contact me for clarification. Carlos Malave MD 02/17/24 1534 Carlos Malave MD 02/17/24 [id number] documented in this encounter H&P Notes * SONU Su - 02/17/2024 9:05 PM EST Images from the original note were not included. CHARITY HISTORY AND PHYSICAL Please contact author [SONU Su] via [employer]. 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 She is known to our care and does receive chemo and radiation treatment with Dr. Diaz and Mitchell.She has a known rectal ulceration and has undergone colectomy with colostomy for diversion. She didreport low-grade temp unspecified at home yesterday and looks by outpatient med list to have completed oralDoxycycline and Augmentin from 02/09 through 02/14 recent hospitalization of rectal abscess. Workup in the emergency room was performed patient is hypotensive heart rate 84 temperature is 100.1 white blood cell count 6.1 sodium low at 128 BUN [address] scan of the abdomen was performed today showing heterogeneous mass in the pelvis involving rectum, vagina and labia consistent with given history of anal cancer possible interval decrease in size noted. Infection was considered less likely at this time malignant lymphadenopathy is present however. Due to low-grade temp respiratory panel was also obtained and negative. Chest x-ray obtained showing no acute active pulmonary process cultures ordered and pending urinalysis does show some blood high epithelial count. Patient does show signs of hypovolemic hyponatremia IV albumin and IV fluids being provided with inpatient hospital stay Functional status prior to presentation: Physically decline states unable to care for herself at home would like a transferred to acute rehab Review of Systems Translation surface with ALS for deaf communication #[id number] patient does read lips as well. Patient reports poor p.o. intake overall states she has been caring for her ostomy denies increasedoutput. Also has a chronic Rocha denies hematuria. She reports things are getting difficult at homeand her REVENUE INSPECTOR recently stopped coming. She reports chronic abdominal pain worsened with elevation of her head better when it is flat using OxyContin and oxycodone at home does report some nausea no vomiting. Recently transferred from our facility to home with oral antibiotics for toxic wound infection completed on 02/14. Low-grade temp had been noted but she is nonspecific. Here Tmax is 100.1. She denies dizziness. MEDICAL HISTORY Past Medical History Past Medical History: Diagnosis Date ??? Cancer of anus (CMS/HCC) ??? 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 COPD (chronic obstructive pulmonary disease) (CMS/HCC) 03/21/2023 DX:COPD (chronic obstructive pulmonary disease) ([facility]) ??? Leukocytosis 03/21/2023 DX:Leukocytosis ??? Low vitamin D level 03/21/2023 ??? Nicotine dependence 03/21/2023 ??? Port-A-Cath in place ??? Schizo affective schizophrenia (CMS/HCC) ??? Schizophrenia ([facility]) 12/25/2023 Past Surgical History Past Surgical History: Procedure Laterality Date ??? APPENDECTOMY ??? CHOLECYSTECTOMY ??? COLOSTOMY ??? FOOT SURGERY ??? TUBAL LIGATION Social History reports that she has quit smoking. Her smoking use included cigarettes. She has never used smokeless tobacco. She reports that she does not currently use alcohol. She reports that she does not use drugs. Family History family history is not on file. Allergies has No Known Allergies. Home Medications Current Facility-Administered Medications on File Prior to Encounter Medication Dose Route Frequency Provider Last Rate Last Admin ??? [MAR Hold] sodium chloride 0.9 % flush 10 mL 10 mL intravenous PRN Arlen Jonesuliffe, DO 10 mL at 02/16/24 1500 Current Outpatient Medications on File Prior to Encounter Medication Sig Dispense Refill ??? acetaminophen (TYLENOL) 325 mg tablet Take 2 tablets (650 mg total) by mouth every 6 (six) hours if needed for mild pain or fever - temperature GREATER than 38 C (100.4 F) for up to 10 days. 30 tablet 0 ??? ferrous sulfate 325 mg (65 mg elemental iron) tablet Take 1 tablet (325 mg total) by mouth 2 times daily. ??? fluticasone propion-salmeteroL (ADVAIR DISKUS) 500-50 mcg/dose diskus inhaler Inhale 500 mcg bymouth 2 times daily. ??? folic acid (FOLVITE) 1 mg tablet Take 1 tablet (1,000 mcg total) by mouth daily. ??? hydrocortisone (ANUSOL-HC) 2.5 % rectal cream ??? LORazepam (ATIVAN) 0.5 mg tablet Take 1 tablet (0.5 mg total) by mouth 2 (two) times a day if needed for anxiety. ??? midodrine (PROAMATINE) 5 mg tablet Take 1 tablet (5 mg total) by mouth 3 (three) times a day before meals. 90 each 0 ??? ondansetron (ZOFRAN) 8 mg tablet Take 1 tablet (8 mg total) by mouth every 8 (eight) hours if needed for nausea or vomiting. ??? oxyCODONE (OxyCONTIN) 20 mg 12 hr abuse-deterrent tablet Take 1 tablet (20 mg total) by mouth every 12 (twelve) hours. Do not crush, chew, or split. ??? oxyCODONE (ROXICODONE) 5 mg immediate release tablet Take 1 tablet (5 mg total) by mouth every 4 (four) hours if needed for severe pain or moderate pain. ??? risperiDONE (RisperDAL) 1 mg tablet Take 1 tablet (1 mg total) by mouth 2 (two) times a day. ??? risperiDONE (RisperDAL) 4 mg tablet Take 1 tablet (4 mg total) by mouth at bedtime. ??? [] amoxicillin-clavulanate (AUGMENTIN) 875-125 mg per tablet Take 1 tablet by mouth 2 (two) times a day for 5 days. 10 each 0 ??? [] doxycycline (VIBRAMYCIN) 100 mg capsule Take 1 capsule (100 mg total) by mouth 2 (two) times a day for 5 days. Take with at least 8 ounces (large glass) of water, do not lie down for 30minutes after 10 each 0 ??? melatonin 3 mg tablet Take 2 tablets (6 mg total) by mouth at bedtime as needed. (Patient not taking: Reported on 02/17/2024) ??? [DISCONTINUED] docusate sodium (COLACE) 100 mg capsule Take 1 capsule (100 mg total) by mouth 2times daily. (Patient not taking: Reported on 02/17/2024) ??? [DISCONTINUED] magnesium hydroxide (MILK OF MAGNESIA) 400 mg/5 mL suspension Take 30 mL by mouth. (Patient not taking: Reported on 02/17/2024) ??? [DISCONTINUED] nicotine (NICODERM CQ) 21 mg/[address] 1 patch on the skin 1 (one) time each day. (Patient not taking: Reported on 02/17/2024) ??? [DISCONTINUED] prochlorperazine (COMPAZINE) 10 mg tablet Take 1 tablet (10 mg total) by mouth every 8 (eight) hours if needed for nausea or vomiting. OBJECTIVE Vitals Visit Vitals BP (!) 87/41 (BP Location: Left arm, Patient Position: Lying) Pulse 84 Temp 37.8 ??C (100.1 ??F) (Oral) Resp 16 Temp (24hrs), Av.3 ??C (99.1 ??F), Min:36.7 ??C (98.1 ??F), Max:37.8 ??C (100.1 ??F) Body mass index is 20.85 kg/m??. No results found for: PTWT , PTHT Physical Examination Patient cachectic female lying in bed in no acute distress. HEENT: Head is normocephalic and atraumatic, PERRLA, EOMI, no JVD Cardiac: S1-S2 regular rate and rhythm no rubs murmurs gallops Lungs: Clear to auscultation bilaterally Abdomen: Soft, diffuse tenderness lower quadrant colostomy with stool soft/diarrhea no blood Rocha in place draining yellow urine Extremities: Patient without pitting edema. Skin: Per ER examination reviewed e right medial buttock where there is a skin ulcer that is full-thickness with fat layer visible. Wound edges are irregular and there is fibrin and slough overlyingthe wound bed. There does not appear to be any tunneling or undermining. There is surrounding erythema. Neuro: alert and oriented ??3 without focal neurologic deficit LAB RESULTS (most recent) HEMATOLOGY Lab Results Component Value Date WBC 6.1 02/17/2024 HGB 8.6 (L) 02/17/2024 HCT 27.5 (L) 02/17/2024 MCV 80.6 02/17/2024 PLT 261 02/17/2024 CHEMISTRY Lab Results Component Value Date GLUCOSE 106 (H) 02/17/2024 NA 128 (L) 02/17/2024 K 3.7 02/17/2024 CO2 29 02/17/2024 CL 95 (L) 02/17/2024 BUN 6 02/17/2024 CREATININE 0.52 02/17/2024 EGFR 113 02/17/2024 CALCIUM 8.7 02/17/2024 MG 1.6 (L) 02/09/2024 ANIONGAP 4 02/17/[address] Abdomen Pelvis w Contrast Final Result Impression: Heterogeneous mass in the pelvis involving [...] by: Danielle Thompson MD on 02/17/2024 17:22:27 XR Chest 1 View Final Result Impression: No active pulmonary process identified. Telerad SONU ([id number]) -------- FINAL REPORT -------- Dictated By: Mae Oreilly Dictated Date: 02/17/2024 16:16 ET Assigned Physician: Mae Oreilly Reviewed and Electronically Signed By: Mae Oreilly Signed Date: 02/17/2024 16:17 ET Workstation ID: [id number] Transcribed By: Self Edit Transcribed Date: 02/17/2024 16:16 ET ASSESSMENT & PLAN #Hypotension/dehydration For p.o. intake with nausea at times (available Start albumin x 1 Start normal saline 100 cc an hour repeat BMP at midnight and at 6 AM monitoring for correction Maintained at home on midodrine 5 mg twice a day #Hypovolemic hyponatremia Patient with hypovolemic hyponatremia recently admitted for similar cause avoid rapid overcorrection #Rectal mass/squamous cell carcinoma Low-grade temps have been noted recently completed oral measurements. White blood cell count has corrected low-grade temp was noted. Blood culture still pending. Hold off on IV empiric antibiotic for now as just completed Augmentin and doxycycline Other causes of possible temp have been ruled out chest x-ray urine and respiratory viral panel Continue diverting colostomy care and Rocha care Follow-up outpatient with oncology for further radiation and chemo plan #Neuropsych history of schizophrenia continue respiradol and lorazepam prn Patient is alert and oriented states her healthcare proxy is her Sister Shaina #COPD with tobacco misuse recently quit Does not want the nicotine patch Continue Advair supports she has nonhypoxic #Chronic pain Continue OxyContin 30 mg every 12 hours MassPAT reviewed as well as oxycodone 5 mg every 4 hours asneeded for pain continuing ferrous sulfate hemoglobin slightly worse at 8.6 from prior hospitalization #Deconditioning Patient voicing that it is difficult to care for herself at home would like a placement to [facility] on discharge Admission checklist [x] Code status: Full Code - Default : Dietary Orders (From admission, onward) Start Ordered 02/17/24 1843 Adult diet [facility]; General; Regular Diet effective now Question Answer Comment Location [facility] Diet Type (req) General General Diet Regular 02/17/24 1842 Health Care proxy Sister Shaina [phone] Mercer who agrees with the care plan above Chart reviewed, med reconciliation performed, critical care provided time spent 60 minutes Cosigned by Charlie Mercer MD at 02/18/2024 5:58 PM EST Associated attestation - Charlie Mercer MD - 02/18/2024 5:58 PM EST This is a split/shared visit with SONU Su. I personally performed the medical decision making (MDM) for the care of this patient on 02/17/24 as documented below 53-year-old female with history of COPD and recently diagnosed squamous cell carcinoma of rectum onchronic opioid management presents with increased generalized weakness. He recently completed antibiotics for rectal abscess. I reviewed CT of the abdomen that still showed mass in the pelvis involving rectum and vagina as well as labia that was consistent with known history of anal cancer. Patient is hypotensive and has adult failure to thrive with decreased p.o. intake. She is dehydrated She is also very anemic. She has hypovolemic hyponatremia. Case was discussed with emergency room providers and final decision has been made to admit the patient to the hospital for further workup and treatment as well as rehydration. With resuscitation with IV fluids as well as IV albumin. Follow strict inputs and outputs and BMP in the morning. Start home midodrine of 5 mg twice daily. Follow sodium in the morning. Low-grade temps could be due to squamous cell carcinoma. Check procalcitonin levels. Agree with holding off on empiric antibiotics since she already completed Augmentin and doxycycline. Charlie Mercer MD 02/18/24 5:56 PM EST documented in this encounter Consult Notes * Millicent Quinteros RD - 03/02/2024 3:54 PM ESTAssociated Order(s): IP CONSULT TO NUTRITION SERVICES 03/02/2024 @ 3:54 PM EST Nutrition Follow up note [employer]: Language: GREGORIA Bernard [id number] and GREGORIA Romero [id number] Reason for RD Intervention: Assessment Type: Follow-up Reason for Assessment: Decreased Intake Anthropometrics: Height: 157.5 cm (62 ) Weight: 54 kg (119 lb) (per EPIC record) Weight Method: Actual BMI (Calculated): 21.8 BMI Class: Normal UBW (lbs): (possibly 160 lbs per pt report) Current Diet and Supplements: Dietary Orders (From admission, onward) Start Ordered 03/02/24 1552 Dietary nutrition supplements Three times daily (TID); [facility]; Other Continuous Comments: 4 times daily, with meals and 10 am snack Chocolate ensure plus HP Question Answer Comment Frequency Three times daily (TID) Location [facility] Supplements Other 03/02/24 1551 02/17/24 1843 Adult diet [facility]; General; Regular Diet effective now Question Answer Comment Location [facility] Diet Type (req) General General Diet Regular 02/17/24 1842 History of presenting illness: Patient is a 53 y.o. 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 COPD (chronic obstructive pulmonary disease) ([facility]) 03/21/2023 DX:COPD (chronic obstructive pulmonary disease) ([facility]) Leukocytosis 03/21/2023 DX:Leukocytosis Low vitamin D level 03/21/2023 Nicotine dependence 03/21/2023 Port-A-Cath in place Schizo affective schizophrenia ([facility]) Schizophrenia ([facility]) 12/25/2023 Past Surgical History: Procedure Laterality Date APPENDECTOMY CHOLECYSTECTOMY COLOSTOMY FOOT SURGERY TUBAL LIGATION admitted 02/17/2024 with Dehydration with hyponatremia. Food/Nutrition History: Self-selected diet(s) followed: Pt seen with landcare facilitator Aye Shelley. She reports painful mouth, has softer fods but requesting bagels and Panini. Reports weight was 160lbs in 2023, now 114 lbs. Per EPIC record, weight was 148 lbs in March of 2023, 119 lbs in December of 2023. States she could not sit to eat due to pain so she ate 50% of usual. No food allergies, limited dentition. Confirms height. Takes 2-3 chocolate boost daily. Appetite LAN SUPPORT SPECIALIST: Other (Comment) (Pt reports 50% of usual intake since July.) Vitamins/Minerals/Herbs: Vitamin C Nourishment Type: Boost Frequency: TID Weight History: Wt Readings from Last 10 Encounters: 02/25/24 54 kg (119 lb) 02/13/24 54.3 kg (119 lb 9.6 oz) 02/08/24 51.7 kg (113 lb 15.7 oz) 01/22/24 51.7 kg (114 lb) 12/25/23 51.7 kg (114 lb) 12/18/23 53.7 kg (118 lb 6.4 oz) 12/16/23 54.2 kg (119 lb 8 oz) 03/24/23 67.1 kg (148 lb) Subjective Assessment: Pt was sleeping but woke with ease on interview. Reports her intake is fair. She is taking the ensures and feels she could consume more. Pt continues with radiation treatments. Plan is for rehab at discharge. Electrolytes replaced, per provider depleted from inadequate intake. Pt is on multivitamin, thiamine and folic acid. Nutrition-Related Lab Values: Results from last 7 days Lab Units 03/02/24 0824 03/02/24 0729 03/01/24 0455 SODIUM mmol/L -- 136 131* POTASSIUM mmol/L -- 3.6 3.7 PHOSPHORUS mg/dL -- -- 3.0 MAGNESIUM mg/dL -- 1.7* 1.8* CHLORIDE mmol/L -- 103 98 CO2 mmol/L -- 30 28 BUN mg/dL -- 4* 5 CREATININE mg/dL -- 0.40* 0.46* EGFR mL/min/1.73m2 -- 120 116 CALCIUM mg/dL -- 8.5 7.9* GLUCOSE mg/dL -- 126* 109* WBC AUTO K/mcL 2.5* -- 3.4* Lab Results Component Value Date LIPASE 10 (L) 02/17/2024 Medications: ferrous sulfate, 325 mg, oral, Daily fludrocortisone, 0.1 mg, oral, Daily folic acid, 1,000 mcg, oral, Daily magnesium oxide, 400 mg, oral, BID metroNIDAZOLE, , Topical, BID midodrine, 5 mg, oral, TID AC multivitamin, 1 each, oral, Daily nicotine, 1 patch, transdermal, Daily oxyCODONE, 30 mg, oral, q12h polyetheylene glycol, 17 g, oral, Daily risperiDONE, 1 mg, oral, BID risperiDONE, 4 mg, oral, Nightly thiamine, 100 mg, oral, Daily CONTINUOUS: PRN medications: LORazepam, melatonin, ondansetron (ZOFRAN-ODT) disintegrating tablet, oxyCODONE, simethicone Food/Nutrition-Current Status: Intake Type: P.O. Current Diet Status: Appropriate Current Supplement Status: Appropriate Appetite: Fair Intake Amount (%): 25-50% Intake Assessment: Other (Comment) (improved but inadequate) Main IVF: None Nutrition Focused Physical Findings: Overall Appearance: comfortable in bed Digestive System (Mouth to Rectum): Other (Comment) (tolerating current texture, endentulous) Nerves and Cognition: Alert, Oriented Skin: colostomy, open area, perianal cancer Fluid Accumulation/Edema: Not Examined Loss of Fat Location: Orbital, Buccal, Triceps, Ribs Loss of Fat Amt-Orbital: No Losses Loss of Fat Amt-Buccal: No Losses Loss of Fat Amt-Triceps: Mild Loss of Fat Amt-Ribs: Not Examined Loss of Muscle Location: Temples, Clavicle, Shoulders, Scapula, Thigh, Calf Loss of Muscle Amt-Temples: No Losses Loss of Muscle Amt-Clavicle: Mild Loss of Muscle Amt-Shoulders: No Losses Loss of Muscle Amt-Scapula: Not Examined Loss of Muscle Amt-Thigh: Not Examined Loss of Muscle Amt-Calf: Not Examined Nutrition Diagnosis: Code Type: (reported weight change does not match documented weight history, possible loss of 19.6 % over 11 months, however stable since December when pt reported loss.) Diagnosis: Inadequate Oral Intake Etiology: Changes in taste and appetite or preference Symptoms: as evidenced by oral intake 50%/fair per pt record and EPIC documentation Nutrition Interventions: Medical Food Supplement, Meals/Snacks Increase Ensure plus HP supplement to QID, adjust menu again for updated food preferences, add realmilkshakes BID per pt preference. Goals: Patient will consume greater than or equal to 75% meals., Patient will consume ONS., Electrolytes within normal range., Maintain weight., Stooling appropriately., and Maintain skin integrity. Monitoring/Evaluation: Food Intake, Medical Food Supp/Oral Nutrition Supp Nutrition Recommendations/Plan of Care: Continue with Ensure supplements QID Follow Up: Nutrition Priority Level: Moderate Please consult nutrition if needed sooner. Nutritional Discharge Recommendations: Continue with Ensure supplements QID RD remains available and will continue to follow. Signature: Millicent Quinteros RD * Arlen Medrano, DO - 02/20/2024 4:22 PM ESTAssociated Order(s): IP CONSULT TO ONCOLOGY Hematology/Oncology Consult Note Date: 02/09/2024 Subjective HPI on Friday developed a fever at home. She was also found to be profoundly weak. She presented to the hospital via ambulance for further evaluation. At that time she was found to have a blood pressure as low as 58/24. She was admitted to the hospital for further evaluation. Her blood pressure continued to remain low. She was evaluated by the filling layer up her midodrine dose was increased and she was continued on steroids as well as fluids. Today she says she is feeling a little bit better. May seen and examined at bedside. Certified video light rail signal technician Parvin #[id number] was utilized for duration of visit. Onc hx Oncology History Overview Note Initially felt to be due to hemorrhoids. She then developed a lump in the groin area. Ultimately was evaluated in [place] [facility] and imaging showed a soft tissue [...] surgery Foot surgery Tubal ligation Family History Family History No family history on file. Personal and Social History Tobacco Use History Social History Tobacco Use Smoking Status [...] pain, no joint pain. Objective Medications Current Facility-Administered Medications: acetaminophen (TYLENOL) tablet 650 mg, 650 mg, oral, q6h PRN, SONU Su, 650 mg at 02/20/24 1622 budesonide (PULMICORT) 1 mg/2 mL nebulizer solution 1 mg, 1 mg, nebulization, Daily, 1 mg at 02/18/2430 AND formoterol (PERFOROMIST) 20 mcg/2 mL nebulizer solution 20 mcg, 20 mcg, nebulization, BID, SONU Su, 20 mcg at 02/18/242007 ferrous sulfate tablet 325 mg, 325 mg, oral, Daily, SONU Su, 325 mg at 02/18/24 102 fludrocortisone (FLORINEF) tablet 0.1 mg, 0.1 mg, oral, Daily, Herbert Connors DO, 0.1 mg at 02/20/24 08 folic acid (FOLVITE) tablet 1,000 mcg, 1,000 mcg, oral, Daily, SONU Su, 1,000 mcg at 02/20/24 08 hydrocortisone sod succ (PF) (SOLU-CORTEF) injection 50 mg, 50 mg, intravenous, q8h, Herbert Connors DO, 50 mg at 02/20/24 1444 LORazepam (ATIVAN) tablet 0.5 mg, 0.5 mg, oral, BID PRN, SONU Su, 0.5 mg at 02/19/24 210 melatonin tablet 6 mg, 6 mg, oral, Nightly PRN, SONU Su, 6 mg at 02/19/242099 midodrine (PROAMATINE) tablet 5 mg, 5 mg, oral, TID AC, Al Gan MD, 5 mg at 619 nicotine (NICODERM CQ) 14 mg/24 hr patch 1 patch, 1 patch, transdermal, Daily, Al Gan MD, 1 patch at 02/20/24 0806 ondansetron ODT (ZOFRAN-ODT) disintegrating tablet 4 mg, 4 mg, oral, q8h PRN, SONU Su oxyCODONE (OxyCONTIN) 12 hr abuse-deterrent tablet 30 mg, 30 mg, oral, q12h, SONU Su, 30 mg at 02/20/24 0807 oxyCODONE (ROXICODONE) immediate release tablet 5 mg, 5 mg, oral, TID PRN, Al Gan MD, 5 mg at 02/20/24 1443 polyethylene glycol (MIRALAX) packet 17 g, 17 g, oral, Daily, Al Gan MD, 17 g at 02/20/24 0807 risperiDONE (RisperDAL) tablet 1 mg, 1 mg, oral, BID, SONU Su, 1 mg at 02/20/24 1443 risperiDONE (RisperDAL) tablet 4 mg, 4 mg, oral, Nightly, SONU Su, 4 mg at 02/19/24 2101 simethicone (MYLICON) chewable tablet 80 mg, 80 mg, oral, 4x daily PRN, Al Gan MD, 80 mg at 02/18/24 1645 sodium chloride 0.9 % infusion, 75 mL/hr, intravenous, Continuous, Al Gan MD, Last Rate: 75 mL/hr at 02/20/24 1058, 75 mL/hr at 02/20/24 1058 Allergies Allergies No Known Allergies Physical Exam Vitals: 02/20/24 1518 BP: 96/55 Pulse: 77 Resp: 20 Temp: 36.6 ??C (97.8 ??F) SpO2: 98% Performance Status: 1 General: pale thin middle aged woman, Seated in wheelchair HENT: no scleral icterus Chest: port in place Lymph: No palpable cervical, supraclavicular or axillary adenopathy. Resp: normal inspiratory effort, Cardio: RRR, Abdomen: soft , ostomy in place, Neuro: alert and oriented, Labs Lab Results Component Value Date WBC 3.9 (L) 02/19/2024 RBC 3.40 (L) 02/19/2024 HGB 8.4 (L) 02/19/2024 HCT 27.0 (L) 02/19/2024 MCV 79.9 02/19/2024 MCHC 31.1 (L) 02/19/2024 RDW 19.6 (H) 02/19/2024 PLT 264 02/19/2024 MPV 9.7 02/19/2024 NRBC 0.0 02/19/2024 DIFF Lab Results Component Value Date LYMPHOPCT 17.5 02/19/2024 NEUTROABS 2.96 02/19/2024 LYMPHSABS 0.68 (L) 02/19/2024 MONOABS 0.14 (L) 02/19/2024 EOSABS 0.02 02/19/2024 BASOSABS 0.02 02/19/2024 IMMGRANABS 0.06 (H) 02/19/2024 Lab Results Component Value Date NA 135 02/18/2024 K 3.5 02/18/2024 CL 101 02/18/2024 CO2 30 02/18/2024 GLUCOSE 93 02/18/2024 BUN 3 (L) 02/18/2024 CREATININE 0.50 02/18/2024 CALCIUM 8.5 02/18/2024 PROT 5.0 (L) 02/17/2024 ALBUMIN 1.7 (L) 02/17/2024 BILITOT 0.4 02/17/2024 AST 13 02/17/2024 ALT 14 02/17/2024 MG 1.6 (L) 02/09/2024 ALKPHOS 98 02/17/2024 EGFR 114 02/18/2024 Assessment & Plan 53 year old female congenital deafness, with anal cancer. She had pet scan which shows involvement of only local lymph nodes. She has large symptomatic bulky disease which would benefit from treatment with radiation along with chemotherapy as per guidelines. Start of treatment has been delayed for multiple reasons, including patient leaving her simulation appointment early and also being hospitalized Ultimately she was started on concurrent chemoradiation last week. Unfortunately she is now here with weakness and failure to thrive. Squamous cell carcinoma of anus, p16+ Cancer associated pain Mild anemia Severe malnutrition Hypotension Recommend nutrition consultation, I am concerned regards to her nutritional input Recommend PT and OT consultations Patient would be best served going to a [facility] facility as they are unable to care for herat home Ensure there is no underlying infection that is also contributing to her hypotension I did discuss with her if she wants to still continue on treatment and that she needs to get stronger in order to get back on chemotherapy she does states she would like to continue her cancer directed treatment If clinically she does not continue to improve then goals of care will need to be readdressed Sign: * Herbert Connors DO - 02/18/2024 6:48 AM EST Critical Care Consult Note History Of Present Illness (include Chief Complaint): Yanna Power is a 53 y.o.,female with a PMH notable for 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 Charity team consulted ICU for hypotension overnight with blood pressures as low as 50s systolic. The patient received a bolus of 25g of albumin with persistent hypotension. Of note, her blood pressures were trending in the 80-90s systolic yesterday and she received NS bolus and was initiated on continuous normal saline infusion. Her home medications include midodrine which was ordered last night, but there is no record the patient received the dose. This morning the patient seen and examined. Provider notes reviewed. Chart, labs, studies, old records reviewed where available. Review of Systems Constitutional: Positive for fatigue. HENT: Positive for hearing loss. Respiratory: Negative. Cardiovascular: Negative. Gastrointestinal: Negative. Endocrine: Negative. Genitourinary: Negative. Musculoskeletal: Negative. Skin: Negative. Breast: negative. Allergic/Immunologic: Negative. Neurological: Positive for dizziness and weakness. Psychiatric/Behavioral: Negative. Past Medical History: She has a past medical history of Cancer of anus ([facility]), Congenital deafness (03/21/2023), COPD (chronic obstructive pulmonary disease) ([facility]) (03/21/2023), Leukocytosis (03/21/2023), Low vitamin Dlevel (03/21/2023), Nicotine dependence (03/21/2023), Port-A-Cath in place, Schizo affective schizophrenia ([facility]), and Schizophrenia ([facility]) (12/25/2023). Surgical History: She has a past surgical history that includes Cholecystectomy; Colostomy; Foot surgery; Tubal ligation; and Appendectomy. Family History: family history is not on file. Social History: She reports that she has quit smoking. Her smoking use included cigarettes. She has never used smokeless tobacco. She reports that she does not currently use alcohol. She reports that she does not use drugs. Allergies: Patient has no known allergies. Home Medications: Medications Prior to Admission Medication Sig Dispense Refill Last Dose ??? acetaminophen (TYLENOL) 325 mg tablet Take 2 tablets (650 mg total) by mouth every 6 (six) hours if needed for mild pain or fever - temperature GREATER than 38 C (100.4 F) for up to 10 days. 30 tablet 0 02/17/2024 ??? ferrous sulfate 325 mg (65 mg elemental iron) tablet Take 1 tablet (325 mg total) by mouth 2 times daily. 02/17/2024 ??? fluticasone propion-salmeteroL (ADVAIR DISKUS) 500-50 mcg/dose diskus inhaler Inhale 500 mcg bymouth 2 times daily. 02/17/2024 ??? folic acid (FOLVITE) 1 mg tablet Take 1 tablet (1,000 mcg total) by mouth daily. 02/17/2024 ??? hydrocortisone (ANUSOL-HC) 2.5 % rectal cream 02/17/2024 ??? LORazepam (ATIVAN) 0.5 mg tablet Take 1 tablet (0.5 mg total) by mouth 2 (two) times a day if needed for anxiety. 02/17/2024 ??? midodrine (PROAMATINE) 5 mg tablet Take 1 tablet (5 mg total) by mouth 3 (three) times a day before meals. 90 each 0 02/17/2024 ??? ondansetron (ZOFRAN) 8 mg tablet Take 1 tablet (8 mg total) by mouth every 8 (eight) hours if needed for nausea or vomiting. 02/17/2024 ??? oxyCODONE (OxyCONTIN) 20 mg 12 hr abuse-deterrent tablet Take 1 tablet (20 mg total) by mouth every 12 (twelve) hours. Do not crush, chew, or split. 02/17/2024 ??? oxyCODONE (ROXICODONE) 5 mg immediate release tablet Take 1 tablet (5 mg total) by mouth every 4 (four) hours if needed for severe pain or moderate pain. 02/17/2024 ??? risperiDONE (RisperDAL) 1 mg tablet Take 1 tablet (1 mg total) by mouth 2 (two) times a day. 02/17/2024 ??? risperiDONE (RisperDAL) 4 mg tablet Take 1 tablet (4 mg total) by mouth at bedtime. 02/17/2024 ??? [] amoxicillin-clavulanate (AUGMENTIN) 875-125 mg per tablet Take 1 tablet by mouth 2 (two) times a day for 5 days. 10 each 0 ??? [] doxycycline (VIBRAMYCIN) 100 mg capsule Take 1 capsule (100 mg total) by mouth 2 (two) times a day for 5 days. Take with at least 8 ounces (large glass) of water, do not lie down for 30minutes after 10 each 0 ??? melatonin 3 mg tablet Take 2 tablets (6 mg total) by mouth at bedtime as needed. (Patient not taking: Reported on 02/17/2024) Not Taking Last Recorded Vitals: Blood pressure (!) 83/48, pulse 86, temperature 36 ??C (96.8 ??F), temperature source Temporal, resp. rate 18, height 1.575 m (62 ), weight 54.3 kg (119 lb 9.6 oz), SpO2 98%. Physical Exam Constitutional: Appearance: She is not toxic-appearing. HENT: Head: Normocephalic. Mouth/Throat: Mouth: Mucous membranes are moist. Eyes: Pupils: Pupils are equal, round, and reactive to light. Cardiovascular: Rate and Rhythm: Normal rate. Pulmonary: Effort: Pulmonary effort is normal. Abdominal: General: Bowel sounds are normal. Musculoskeletal: General: Normal range of motion. Cervical back: Neck supple. Skin: General: Skin is warm and dry. Capillary Refill: Capillary refill takes 2 to 3 seconds. Neurological: General: No focal deficit present. Mental Status: She is alert and oriented to person, place, and time. Psychiatric: Mood and Affect: Mood normal. : In general the patient appears frail and drowsy but easily awakens to voice and touch. The patient complains of mild dizziness while lying supine. She is following commands appropriately. HEENT is remarkable for heard of hearing, predominantly in right ear. Pupils are equal round reactive to light. Neck is supple, no JVD appreciated. The patient has a central venous port for access. Heart is regular. Faint murmur auscultated over 5th intercostal space. Chest has clear breath sounds. Abdomen is soft, without tenderness. Bowel sounds quiet. She has a colostomy with adequate stool output. Extremities are warm and well-perfused without evidence of edema. Distal pulses palpable in the radial/dorsalis pedis. Neuro exam is unremarkable, the patient is alert, oriented and moves all extremities. Rectal is deferred is deferred. Rocha in place. Skin is pink, warm and dry. Relevant Results: WBC notable for 13.8 on admission, now 4.5 this morning. Lactate was 1.2 as of yesterday. Assessment/Plan Principal Problem: Dehydration with hyponatremia This is an unfortunate 53 y/o female full code with a history of squamous cell carcinoma of the rectum, on chronic opioid management presents with generalized weakness with refractory hypotension. She received one dose of albumin overnight. Neuro: Patient is alert and oriented with drowsiness but is able to make her needs known. Continue home regimen of pain and anxiolytic management cautiously in the setting of persistent hypotension. Continue risperidone and melatonin for sleep management. CV: Hypotensive this morning with recheck of 83/48 upon examination. Increase midodrine dose to 10 mg TID. Albumin 5% infusion ordered. Continue maintenance IV infusion. Pulm: Patient on room air. Continue formoterol and budesonide nebulizer. GI: Continue diet as tolerated. Colostomy draining adequate stool output. Continue folic acid and ferrous sulfate. Renal: Monitor I&Os, monitor electrolytes and replete as necessary. ID: Adding procalcitonin and lactate to AM labs. Afebrile overnight. Blood cultures pending. Viral PCR and chlamydia penumoniae negative.. Endocrine: Adding fludrocortisone and hydrocortisone. Blood sugars acceptable, continue to monitor. Other: Maintain bedrest until blood pressure and dizziness and blood pressure improves. Proph: Continue sequential compression device. Code: Patient is full code. Contact is sister Shaina Hernandez at [phone] Disp: Pt to be transferred to intermediate care for increased monitoring and blood pressure trend. Consult time 45 min. documented in this encounter Plan of Treatment Upcoming Encounters Date Type Department Care Team (Late st Contact Info) Description 04/13/2024 1:30 PM EST Appointment [facility] Radiation Oncology [address] [place] [id number] Samina Diaz MD [address] [place] [address] 05/04/2024 11:20 AM EDT Office Visit Breast Care [facility] [address] [place] [id number] Lalito Miller MD [address] [place] [address] Scheduled Orders Name Type Priority Associated Diagnoses Orde r Schedule Complete blood count Lab Routine Dehydration with hyponatremia Expected: 03/10/2024, Expires: 03/03/2025 documented as of this encounter Procedures Procedure Name Priority Date/Time Associated Diagnosis Comments HEMOGLOBIN AND HEMATOCRIT STAT 03/05/2024 11:04 AM EST TRANSFUSE RED BLOOD CELLS Routine 03/04/2024 7:22 PM EST TYPE AND SCREEN Routine 03/04/2024 12:27 PM EST PREPARE RBC Routine 03/04/2024 9:14 AM EST CBC WITH AUTO DIFFERENTIAL Routine 03/04/2024 5:14 AM EST CBC AND DIFFERENTIAL Routine 03/04/2024 5:14 AM EST PHOSPHORUS Routine 03/04/2024 5:14 AM EST MAGNESIUM Routine 03/04/2024 5:14 AM EST BASIC METABOLIC PANEL Routine 03/04/2024 5:14 AM EST COMPLETE BLOOD COUNT Routine 03/02/2024 8:24 AM EST IRON AND TIBC Routine 03/02/2024 7:29 AM EST MAGNESIUM Add-On 03/02/2024 7:29 AM EST FERRITIN Routine 03/02/2024 7:29 AM EST BASIC METABOLIC PANEL Add-On 03/02/2024 7:29 AM EST TRANSFERRIN Routine 03/02/2024 6:41 AM EST CBC WITH AUTO DIFFERENTIAL Routine 03/01/2024 4:55 AM EST CBC AND DIFFERENTIAL Routine 03/01/2024 4:55 AM EST PHOSPHORUS Routine 03/01/2024 4:55 AM EST MAGNESIUM Routine 03/01/2024 4:55 AM EST BASIC METABOLIC PANEL Routine 03/01/2024 4:55 AM EST HEMOGLOBIN AND HEMATOCRIT Routine 02/29/2024 9:45 AM EST COMPLETE BLOOD COUNT Routine 02/28/2024 5:25 AM EST MAGNESIUM Routine 02/28/2024 5:25 AM EST BASIC METABOLIC PANEL Routine 02/28/2024 5:25 AM EST COMPLETE BLOOD COUNT Routine 02/27/2024 5:06 AM EST MAGNESIUM Routine 02/27/2024 5:06 AM EST BASIC METABOLIC PANEL Routine 02/27/2024 5:06 AM EST COMPLETE BLOOD COUNT Routine 02/26/2024 9:20 AM EST MAGNESIUM Routine 02/26/2024 9:20 AM EST BASIC METABOLIC PANEL Routine 02/26/2024 9:20 AM EST COMPLETE BLOOD COUNT Routine 02/25/2024 4:53 AM EST MAGNESIUM Routine 02/25/2024 4:53 AM EST BASIC METABOLIC PANEL Routine 02/25/2024 4:53 AM EST HEMOGLOBIN AND HEMATOCRIT Routine 02/24/2024 10:12 AM EST COMPLETE BLOOD COUNT Routine 02/24/2024 6:24 AM EST MAGNESIUM Routine 02/24/2024 6:24 AM EST BASIC METABOLIC PANEL Routine 02/24/2024 6:24 AM EST COMPLETE BLOOD COUNT Routine 02/23/2024 6:52 AM EST PHOSPHORUS Add-On 02/23/2024 6:52 AM EST MAGNESIUM Add-On 02/23/2024 6:52 AM EST BASIC METABOLIC PANEL Routine 02/23/2024 6:52 AM EST HEMOGLOBIN AND HEMATOCRIT Routine 02/20/2024 5:08 PM EST CBC WITH AUTO DIFFERENTIAL Routine 02/19/2024 8:01 AM EST CBC AND DIFFERENTIAL Routine 02/19/2024 8:01 AM EST LACTATE, WITH REFLEX Routine 02/18/2024 7:04 AM EST PROCALCITONIN STAT Add-on 02/18/2024 7:04 AM EST EXTRA TUBES Routine 02/18/2024 7:04 AM EST LAVENDER - EDTA Routine 02/18/2024 7:04 AM EST COMPLETE BLOOD COUNT Routine 02/18/2024 3:21 AM EST BASIC METABOLIC PANEL Routine 02/18/2024 3:21 AM EST URINALYSIS WITH REFLEX MICROSCOPIC AND CULTURE STAT 02/17/2024 5:27 PM EST CARRANZA URINE CULTURE TUBE STAT 02/17/2024 5:27 PM EST URINALYSIS WITH [...] AUTO DIFFERENTIAL STAT 02/17/2024 3:23 PM EST CBC AND DIFFERENTIAL STAT 02/17/2024 3:23 PM EST LIPASE STAT 02/17/2024 3:23 PM EST COMPREHENSIVE METABOLIC PANEL STAT 02/17/2024 3:23 PM EST documented in this encounter Results * (ABNORMAL) Hemoglobin and hematocrit (03/05/2024 11:04 AM EST) Hemoglobin 8.0(L) 11.5 - 16.0 g/dL LAB HEMETOLOGY METHOD 03/05/2024 11:[address] [facility] Hematocrit 25.7(L) 35.0 - 47.0 % LAB HEMETOLOGY METHOD 03/05/2024 11:[address] [facility] Blood Venipuncture / Unknown 03/05/2024 11:04 AM EST 03/05/2024 11:27 AM EST us Al Gan MD LAB BLOOD ORDERABLES Fi nal Result [facility] [address] [place] [address], [place] [phone] * Transfuse RBC (03/05/2024 12:50 AM EST) us Al Gan MD BLOOD TRANSFUSION ORDER JAYCOB Final Result * Transfuse RBC: 1 Units (03/05/2024 12:50 AM EST) us Al Gan MD BLOOD TRANSFUSION ORDER JAYCOB Final Result * Type and screen (03/04/2024 12:27 PM EST) ABO Group A 03/04/2024 5:[address] [facility] Rh Type Positive 03/04/2024 5:[address] [facility] Antibody Screen Negative 03/04/2024 5:[address] [facility] Blood Venous blood specimen / Unknown Venipuncture / Unknown 03/04/2024 12:27 PM EST 03/04/2024 12:41 PM EST us Al Gan MD LAB BLOOD BANK TEST ORD ERABLES Final Result [facility] [address] [place] [address], [place] [phone] * Prepare RBC: 1 Units (03/04/2024 9:14 AM EST) Pathologist [facility] Product Code [id number] 03/04/2024 7:[address] [facility] Unit Number [id number] 03/04/19 7:[address] [facility] Crossmatch Compatible 03/04/2024 5:[address] [facility] Dispense Status Transfused 03/04/2024 7:[address] [facility] Unit ABO Rh APOS 03/04/2024 7:[address] [facility] Unit Expiration Date Time [id number] 03/04/2024 7:[address] [facility] Unit Blood Type 6200 03/04/2024 7:[address] [facility] Blood Venous blood specimen / Unknown 03/04/2024 9:14 AM EST 03/04/2024 12:41 PM EST Al Gan MD BLOOD BANK PRODUCT ORDE RABBUCK Final Result [facility] [address] [place] [address], * (ABNORMAL) CBC auto differential (03/04/2024 5:14 AM EST) [facility] WBC 2.9(L) 4.8 - 10.8 K/mcL LAB HEMETOLOGY METHOD 03/04/2024 7:[address] [facility] RBC 2.70(L) 3.80 - 4.80 M/mcL LAB HEMETOLOGY METHOD 03/04/2024 7:[address] [facility] Hemoglobin 7.0(L) 11.5 - 16.0 g/dL LAB HEMETOLOGY METHOD 03/04/2024 7:[address] [facility] Hematocrit 22.3(L) 35.0 - 47.0 % LAB HEMETOLOGY METHOD 03/04/2024 7:[address] [facility] MCV 82.0 79.0 - 98.0 FL LAB HEMETOLOGY METHOD 03/04/2024 7:[address] [facility] MCH 25.7(L) 27.0 - 32.0 pcg LAB HEMETOLOGY METHOD 03/04/2024 7:[address] [facility] MCHC 31.4(L) 32.0 - 37.0 g/dL LAB HEMETOLOGY METHOD 03/04/2024 7:[address] [facility] RDW 21.3(H) 11.0 - 15.0 % LAB HEMETOLOGY METHOD 03/04/2024 7:[address] [facility] Platelets 145 130 - 400 K/mcL LAB HEMETOLOGY METHOD 03/04/2024 7:[address] [facility] MPV 10.9 7.0 - 11.0 FL LAB HEMETOLOGY METHOD 03/04/2024 7:[address] [facility] NRBC 0.0 <1.0 % LAB HEMETOLOGY METHOD 03/04/2024 7:[address] [facility] NRBC Absolute 0.00 <0.10 K/mcL LAB HEMETOLOGY METHOD 03/04/2024 7:[address] [facility] Neutrophils Relative 65.2 % LAB HEMETOLOGY METHOD 03/04/2024 7:[address] [facility] Lymphocytes Relative 22.1 % LAB HEMETOLOGY METHOD 03/04/2024 7:[address] [facility] Monocytes Relative 10.5 % LAB HEMETOLOGY METHOD 03/04/2024 7:[address] [facility] Eosinophils Relative 1.4 % LAB HEMETOLOGY METHOD 03/04/2024 7:[address] [facility] Basophils Relative 0.4 % LAB HEMETOLOGY METHOD 03/04/2024 7:[address] [facility] Immature Granulocytes Relative 0.4 % LAB HEMETOLOGY METHOD 03/04/2024 7:[address] [facility] Neutrophils Absolute 1.86 1.50 - 7.00 K/mcL LAB HEMETOLOGY METHOD 03/04/2024 7:[address] [facility] Lymphocytes Absolute 0.63(L) 1.00 - 5.00 K/mcL LAB HEMETOLOGY METHOD 03/04/2024 7:[address] [facility] Monocytes Absolute 0.30 0.20 - 1.00 K/mcL LAB HEMETOLOGY METHOD 03/04/2024 7:[address] [facility] Eosinophils Absolute 0.04 0.00 - 0.50 K/mcL LAB HEMETOLOGY METHOD 03/04/2024 7:[address] [facility] Basophils Absolute 0.01 0.00 - 0.20 K/mcL LAB HEMETOLOGY METHOD 03/04/2024 7:[address] [facility] Immature Granulocytes Absolute 0.01 0.00 - 0.03 K/mcL LAB HEMETOLOGY METHOD 03/04/2024 7:[address] [facility] Blood Venous blood specimen / Unknown Venipuncture / Unknown 03/04/2024 5:14 AM EST 03/04/2024 7:30 AM EST us Al Gan MD LAB BLOOD ORDERABLES Fi nal Result [facility] [address] [place] [address], * (ABNORMAL) Basic metabolic panel (03/04/2024 5:14 AM EST) Sodium 136 133 - 145 mmol/L LAB CHEMISTRY METHOD 03/04/2024 8:[address] [facility] Potassium 3.8 3.5 - 5.5 mmol/L LAB CHEMISTRY METHOD 03/04/2024 8:[address] [facility] Chloride 100 96 - 110 mmol/L LAB CHEMISTRY METHOD 03/04/2024 8:[address] [facility] CO2 31 21 - 32 mmol/L LAB CHEMISTRY METHOD 03/04/2024 8:[address] [facility] Anion Gap 5 3 - 11 LAB CHEMISTRY METHOD 03/04/2024 8:[address] [facility] Glucose 100 70 - 100 mg/dL LAB CHEMISTRY METHOD 03/04/2024 8:[address] [facility] BUN 6 5 - 25 mg/dL LAB CHEMISTRY METHOD 03/04/2024 8:[address] [facility] Creatinine 0.43(L) 0.50 - 1.10 mg/dL LAB CHEMISTRY METHOD 03/04/2024 8:[address] [facility] eGFR 118 >=60 mL/min/1. 73m2 LAB CHEMISTRY METHOD 03/04/2024 8:[address] [facility] Comment:Calculation based on the??Chronic Kidney Disease Epidemiology Collaboration (CKD-EPI) equation refit??without adjustment for race. BUN/Creatinine Ratio 14.0 LAB CHEMISTRY METHOD 03/04/2024 8:[address] [facility] Calcium 8.0(L) 8.5 - 10.5 mg/dL LAB CHEMISTRY METHOD 03/04/2024 8:[address] [facility] Blood Venous blood specimen / Unknown Venipuncture / Unknown 03/04/2024 5:14 AM EST 03/04/2024 7:30 AM EST us Al Gan MD LAB BLOOD ORDERABLES Fi nal Result [facility] [address] [place] [address], * Magnesium (03/04/2024 5:14 AM EST) [facility] Magnesium 1.9 1.9 - 2.6 mg/dL LAB CHEMISTRY METHOD 03/04/2024 8:[address] [facility] Blood Venous blood specimen / Unknown Venipuncture / Unknown 03/04/2024 5:14 AM EST 03/04/2024 7:30 AM EST us Al Gan MD LAB BLOOD ORDERABLES Fi nal Result [facility] [address] [place] [address], * Phosphorus (03/04/2024 5:14 AM EST) [facility] Phosphorus 3.1 2.5 - 4.5 mg/dL LAB CHEMISTRY METHOD 03/04/2024 8:[address] [facility] Blood Venous blood specimen / Unknown Venipuncture / Unknown 03/04/2024 5:14 AM EST 03/04/2024 7:30 AM EST us Al Gan MD LAB BLOOD ORDERABLES Fi nal Result [facility] [address] [place] [address], [place] [phone] * (ABNORMAL) Complete blood count (03/02/2024 8:24 AM EST) [facility] WBC 2.5(L) 4.8 - 10.8 K/[facility] LAB HEMETOLOGY METHOD 03/02/2024 9:[address] [facility] RBC 2.90(L) 3.80 - 4.80 M/mcL LAB HEMETOLOGY METHOD 03/02/2024 9:[address] [facility] Hemoglobin 7.3(L) 11.5 - 16.0 g/dL LAB HEMETOLOGY METHOD 03/02/2024 9:[address] [facility] Hematocrit 23.3(L) 35.0 - 47.0 % LAB HEMETOLOGY METHOD 03/02/2024 9:[address] [facility] MCV 81.2 79.0 - 98.0 FL LAB HEMETOLOGY METHOD 03/02/2024 9:[address] [facility] MCH 25.4(L) 27.0 - 32.0 pcg LAB HEMETOLOGY METHOD 03/02/2024 9:[address] [facility] MCHC 31.3(L) 32.0 - 37.0 g/dL LAB HEMETOLOGY METHOD 03/02/2024 9:[address] [facility] RDW 20.9(H) 11.0 - 15.0 % LAB HEMETOLOGY METHOD 03/02/2024 9:[address] [facility] Platelets 114(L) 130 - 400 K/mcL LAB HEMETOLOGY METHOD 03/02/2024 9:[address] [facility] MPV 9.8 7.0 - 11.0 FL LAB HEMETOLOGY METHOD 03/02/2024 9:[address] [facility] NRBC 0.0 <1.0 % LAB HEMETOLOGY METHOD 03/02/2024 9:[address] [facility] NRBC Absolute 0.00 <0.10 K/mcL LAB HEMETOLOGY METHOD 03/02/2024 9:[address] [facility] Blood Venous blood specimen / Unknown Venipuncture / Unknown 03/02/2024 8:24 AM EST 03/02/2024 9:23 AM EST us Al Gan MD LAB BLOOD ORDERABLES Fi nal Result Performing Organization Address City/[facility]/ZIP Co de Phone Number [facility] [address] [place] [address], [place] [phone] * (ABNORMAL) Magnesium (03/02/2024 7:29 AM EST) Pathologist [facility] Magnesium 1.7(L) 1.9 - 2.6 mg/dL LAB CHEMISTRY METHOD 03/02/2024 10:[address] [facility] Blood Blood sample taken from central line / Unknown Existing Catheter / Unknown 03/02/2024 7:29 AM EST 03/02/2024 10:06 AM EST us Al Gan MD LAB BLOOD ORDERABLES Fi nal Result Performing Organization Address [facility]/ZIP Co de Phone Number [facility] [address] [place] [address], [place] [phone] * (ABNORMAL) Basic metabolic panel (03/02/2024 7:29 AM EST) [facility] Sodium 136 133 - 145 mmol/L LAB CHEMISTRY METHOD 03/02/2024 10:[address] [facility] Potassium 3.6 3.5 - 5.5 mmol/L LAB CHEMISTRY METHOD 03/02/2024 10:[address] [facility] Chloride 103 96 - 110 mmol/L LAB CHEMISTRY METHOD 03/02/2024 10:[address] [facility] CO2 30 21 - 32 mmol/L LAB CHEMISTRY METHOD 03/02/2024 10:[address] [facility] Anion Gap 3 3 - 11 LAB CHEMISTRY METHOD 03/02/2024 10:[address] [facility] Glucose 126(H) 70 - 100 mg/dL LAB CHEMISTRY METHOD 03/02/2024 10:[address] [facility] BUN 4(L) 5 - 25 mg/dL LAB CHEMISTRY METHOD 03/02/2024 10:[address] [facility] Creatinine 0.40(L) 0.50 - 1.10 mg/dL LAB CHEMISTRY METHOD 03/02/2024 10:[address] [facility] eGFR 120 >=60 mL/min/1. 73m2 LAB CHEMISTRY METHOD 03/02/2024 10:[address] [facility] Comment:Calculation based on the??Chronic Kidney Disease Epidemiology Collaboration (CKD-EPI) equation refit??without adjustment for race. BUN/Creatinine Ratio 10.0 LAB CHEMISTRY METHOD 03/02/2024 10:[address] [facility] Calcium 8.5 8.5 - 10.5 mg/dL LAB CHEMISTRY METHOD 03/02/2024 10:[address] [facility] Blood Blood sample taken from central line / Unknown Existing Catheter / Unknown 03/02/2024 7:29 AM EST 03/02/2024 10:06 AM EST us Al Gan MD LAB BLOOD ORDERABLES Fi nal Result Performing Organization Address City/[facility]/ZIP Co de Phone Number [facility] [address] [place] [address], [place] [phone] * Ferritin (03/02/2024 7:29 AM EST) Ferritin 237 8 - 252 ng/mL LAB CHEMISTRY METHOD 03/02/2024 10:[address] [facility] Blood Blood sample taken from central line / Unknown Existing Catheter / Unknown 03/02/2024 7:29 AM EST 03/02/2024 10:06 AM EST us Al Gan MD LAB BLOOD ORDERABLES Fi nal Result Performing Organization Address City/[facility]/ZIP Co de Phone Number [facility] [address] [place] [address], [place] [phone] * (ABNORMAL) Iron and TIBC (03/02/2024 7:29 AM EST) Pathologist [facility] Iron 20(L) 40 - 150 mcg/dL LAB CHEMISTRY METHOD 03/02/2024 10:[address] [facility] TIBC 111(L) 250 - 450 mcg/dL LAB CHEMISTRY METHOD 03/02/2024 10:[address] [facility] Iron Saturation 18 15 - 50 % LAB CHEMISTRY METHOD 03/02/2024 10:[address] [facility] Blood Blood sample taken from central line / Unknown Existing Catheter / Unknown 03/02/2024 7:29 AM EST 03/02/2024 10:06 AM EST us Al Gan MD LAB BLOOD ORDERABLES Fi nal Result Performing Organization Address City/[facility]/ZIP Co de Phone Number [facility] [address] [place] [address], * (ABNORMAL) Transferrin (03/02/2024 6:41 AM EST) [facility] Transferrin 83(L) 200 - 360 mg/dL 03/04/2024 5:12 AM EST [facility] Comment: Test performed at [facility], [address] [place], [place] ??[address] ? [phone] Clare Scales MD, PhD - [employer] Blood Blood sample taken from central line / Unknown Venipuncture / Unknown 03/02/2024 6:41 AM EST 03/02/2024 7:21 AM EST us Al Gan MD LAB BLOOD ORDERABLES Fi nal Result [facility] [address] [place] [address] * (ABNORMAL) CBC auto differential (03/01/2024 4:55 AM EST) [facility] WBC 3.4(L) 4.8 - 10.8 K/mcL LAB HEMETOLOGY METHOD 03/01/2024 7:[address] [facility] RBC 3.00(L) 3.80 - 4.80 M/mcL LAB HEMETOLOGY METHOD 03/01/2024 7:[address] [facility] Hemoglobin 7.3(L) 11.5 - 16.0 g/dL LAB HEMETOLOGY METHOD 03/01/2024 7:[address] [facility] Hematocrit 23.5(L) 35.0 - 47.0 % LAB HEMETOLOGY METHOD 03/01/2024 7:[address] [facility] MCV 79.7 79.0 - 98.0 FL LAB HEMETOLOGY METHOD 03/01/2024 7:[address] [facility] MCH 24.7(L) 27.0 - 32.0 pcg LAB HEMETOLOGY METHOD 03/01/2024 7:[address] [facility] MCHC 31.1(L) 32.0 - 37.0 g/dL LAB HEMETOLOGY METHOD 03/01/2024 7:[address] [facility] RDW 20.8(H) 11.0 - 15.0 % LAB HEMETOLOGY METHOD 03/01/2024 7:[address] [facility] Platelets 112(L) 130 - 400 K/[facility] LAB HEMETOLOGY METHOD 03/01/2024 7:[address] [facility] MPV 10.5 7.0 - 11.0 FL LAB HEMETOLOGY METHOD 03/01/2024 7:[address] [facility] NRBC 0.0 <1.0 % LAB HEMETOLOGY METHOD 03/01/2024 7:[address] [facility] NRBC Absolute 0.00 <0.10 K/mcL LAB HEMETOLOGY METHOD 03/01/2024 7:[address] [facility] Neutrophils Relative 65.8 % LAB HEMETOLOGY METHOD 03/01/2024 7:[address] [facility] Lymphocytes Relative 19.7 % LAB HEMETOLOGY METHOD 03/01/2024 7:[address] [facility] Monocytes Relative 11.5 % LAB HEMETOLOGY METHOD 03/01/2024 7:[address] [facility] Eosinophils Relative 1.5 % LAB HEMETOLOGY METHOD 03/01/2024 7:[address] [facility] Basophils Relative 0.6 % LAB HEMETOLOGY METHOD 03/01/2024 7:[address] [facility] Immature Granulocytes Relative 0.9 % LAB HEMETOLOGY METHOD 03/01/2024 7:[address] [facility] Neutrophils Absolute 2.24 1.50 - 7.00 K/mcL LAB HEMETOLOGY METHOD 03/01/2024 7:[address] [facility] Lymphocytes Absolute 0.67(L) 1.00 - 5.00 K/mcL LAB HEMETOLOGY METHOD 03/01/2024 7:[address] [facility] Monocytes Absolute 0.39 0.20 - 1.00 K/mcL LAB HEMETOLOGY METHOD 03/01/2024 7:[address] [facility] Eosinophils Absolute 0.05 0.00 - 0.50 K/mcL LAB HEMETOLOGY METHOD 03/01/2024 7:[address] [facility] Basophils Absolute 0.02 0.00 - 0.20 K/mcL LAB HEMETOLOGY METHOD 03/01/2024 7:[address] [facility] Immature Granulocytes Absolute 0.03 0.00 - 0.03 K/mcL LAB HEMETOLOGY METHOD 03/01/2024 7:[address] [facility] Blood Venous blood specimen / Unknown Venipuncture / Unknown 03/01/2024 4:55 AM EST 03/01/2024 6:52 AM EST Al Gan MD LAB BLOOD ORDERABLES Fi nal Result [facility] [address] [place] [address], * (ABNORMAL) Basic metabolic panel (03/01/2024 4:55 AM EST) Sodium 131(L) 133 - 145 mmol/L LAB CHEMISTRY METHOD 03/01/2024 7:[address] [facility] Potassium 3.7 3.5 - 5.5 mmol/L LAB CHEMISTRY METHOD 03/01/2024 7:[address] [facility] Chloride 98 96 - 110 mmol/L LAB CHEMISTRY METHOD 03/01/2024 7:[address] [facility] CO2 28 21 - 32 mmol/L LAB CHEMISTRY METHOD 03/01/2024 7:[address] [facility] Anion Gap 5 3 - 11 LAB CHEMISTRY METHOD 03/01/2024 7:[address] [facility] Glucose 109(H) 70 - 100 mg/dL LAB CHEMISTRY METHOD 03/01/2024 7:[address] [facility] BUN 5 5 - 25 mg/dL LAB CHEMISTRY METHOD 03/01/2024 7:[address] [facility] Creatinine 0.46(L) 0.50 - 1.10 mg/dL LAB CHEMISTRY METHOD 03/01/2024 7:[address] [facility] eGFR 116 >=60 mL/min/1. 73m2 LAB CHEMISTRY METHOD 03/01/2024 7:[address] [facility] Comment:Calculation based on the??Chronic Kidney Disease Epidemiology Collaboration (CKD-EPI) equation refit??without adjustment for race. BUN/Creatinine Ratio 10.9 LAB CHEMISTRY METHOD 03/01/2024 7:[address] [facility] Calcium 7.9(L) 8.5 - 10.5 mg/dL LAB CHEMISTRY METHOD 03/01/2024 7:[address] [facility] Blood Venous blood specimen / Unknown Venipuncture / Unknown 03/01/2024 4:55 AM EST 03/01/2024 6:51 AM EST us Al Gan MD LAB BLOOD ORDERABLES Fi nal Result Performing Organization Address [facility] de Phone Number [facility] [address] [place] [address], [place] [phone] * (ABNORMAL) Magnesium (03/01/2024 4:55 AM EST) Magnesium 1.8(L) 1.9 - 2.6 mg/dL LAB CHEMISTRY METHOD 03/01/2024 7:[address] [facility] Blood Venous blood specimen / Unknown Venipuncture / Unknown 03/01/2024 4:55 AM EST 03/01/2024 6:51 AM EST us Al Gan MD LAB BLOOD ORDERABLES Fi nal Result Performing Organization Address [facility] de Phone Number [facility] [address] [place] [address], [place] [phone] * Phosphorus (03/01/2024 4:55 AM EST) Phosphorus 3.0 2.5 - 4.5 mg/dL LAB CHEMISTRY METHOD 03/01/2024 7:[address] [facility] Blood Venous blood specimen / Unknown Venipuncture / Unknown 03/01/2024 4:55 AM EST 03/01/2024 6:51 AM EST us Al Gan MD LAB BLOOD ORDERABLES Fi nal Result Performing Organization Address City/State/[facility] de Phone Number [facility] [address] [place] [address], [place] [phone] * (ABNORMAL) Hemoglobin and hematocrit (02/29/2024 9:45 AM EST) [facility] Hemoglobin 7.5(L) 11.5 - 16.0 g/dL LAB HEMETOLOGY METHOD 02/29/2024 10:[address] [facility] Hematocrit 24.0(L) 35.0 - 47.0 % LAB HEMETOLOGY METHOD 02/29/2024 10:[address] [facility] Blood Venous blood specimen / Unknown Venipuncture / Unknown 02/29/2024 9:45 AM EST 02/29/2024 9:51 AM EST Al Gan MD LAB BLOOD ORDERABLES Fi nal Result Performing Organization Address [facility] Co de Phone Number [facility] [address] [place] [address], * Magnesium (02/28/2024 5:25 AM EST) [facility] Magnesium 2.1 1.9 - 2.6 mg/dL LAB CHEMISTRY METHOD 02/28/2024 8:[address] [facility] Blood Venous blood specimen / Unknown Venipuncture / Unknown 02/28/2024 5:25 AM EST 02/28/2024 6:50 AM EST Tono Stack MD LAB BLOOD ORDERABLES Final Re sult Performing Organization Address [facility]/ZIP Co de Phone Number [facility] [address] [place] [address], [place] [phone] * (ABNORMAL) Basic metabolic panel (02/28/2024 5:25 AM EST) [facility] Sodium 134 133 - 145 mmol/L LAB CHEMISTRY METHOD 02/28/2024 8:[address] [facility] Potassium 4.1 3.5 - 5.5 mmol/L LAB CHEMISTRY METHOD 02/28/2024 8:[address] [facility] Chloride 99 96 - 110 mmol/L LAB CHEMISTRY METHOD 02/28/2024 8:[address] [facility] CO2 28 21 - 32 mmol/L LAB CHEMISTRY METHOD 02/28/2024 8:[address] [facility] Anion Gap 7 3 - 11 LAB CHEMISTRY METHOD 02/28/2024 8:[address] [facility] Glucose 107(H) 70 - 100 mg/dL LAB CHEMISTRY METHOD 02/28/2024 8:[address] [facility] Comment:Lipemia present BUN 3(L) 5 - 25 mg/dL LAB CHEMISTRY METHOD 02/28/2024 8:[address] [facility] Creatinine 0.36(L) 0.50 - 1.10 mg/dL LAB CHEMISTRY METHOD 02/28/2024 8:[address] [facility] eGFR 123 >=60 mL/min/1. 73m2 LAB CHEMISTRY METHOD 02/28/2024 8:[address] [facility] Comment:Calculation based on the??Chronic Kidney Disease Epidemiology Collaboration (CKD-EPI) equation refit??without adjustment for race. BUN/Creatinine Ratio 8.3 LAB CHEMISTRY METHOD 02/28/2024 8:[address] [facility] Calcium 7.8(L) 8.5 - 10.5 mg/dL LAB CHEMISTRY METHOD 02/28/2024 8:[address] [facility] Blood Venous blood specimen / Unknown Venipuncture / Unknown 02/28/2024 5:25 AM EST 02/28/2024 6:50 AM EST us Tono Stack MD LAB BLOOD ORDERABLES Final Re sult [facility] [address] [place] [address], * (ABNORMAL) Complete blood count (02/28/2024 5:25 AM EST) WBC 2.9(L) 4.8 - 10.8 K/mcL LAB HEMETOLOGY METHOD 02/28/2024 7:[address] [facility] RBC 2.80(L) 3.80 - 4.80 M/mcL LAB HEMETOLOGY METHOD 02/28/2024 7:[address] [facility] Hemoglobin 7.1(L) 11.5 - 16.0 g/dL LAB HEMETOLOGY METHOD 02/28/2024 7:[address] [facility] Hematocrit 22.7(L) 35.0 - 47.0 % LAB HEMETOLOGY METHOD 02/28/2024 7:[address] [facility] MCV 79.9 79.0 - 98.0 FL LAB HEMETOLOGY METHOD 02/28/2024 7:[address] [facility] MCH 25.0(L) 27.0 - 32.0 pcg LAB HEMETOLOGY METHOD 02/28/2024 7:[address] [facility] MCHC 31.3(L) 32.0 - 37.0 g/dL LAB HEMETOLOGY METHOD 02/28/2024 7:[address] [facility] RDW 20.5(H) 11.0 - 15.0 % LAB HEMETOLOGY METHOD 02/28/2024 7:[address] [facility] Platelets 99(L) 130 - 400 K/mcL LAB HEMETOLOGY METHOD 02/28/2024 7:[address] [facility] Comment:previously verified by slide MPV 10.1 7.0 - 11.0 FL LAB HEMETOLOGY METHOD 02/28/2024 7:[address] [facility] NRBC 0.0 <1.0 % LAB HEMETOLOGY METHOD 02/28/2024 7:[address] [facility] NRBC Absolute 0.00 <0.10 K/mcL LAB HEMETOLOGY METHOD 02/28/2024 7:[address] [facility] Blood Venous blood specimen / Unknown Venipuncture / Unknown 02/28/2024 5:25 AM EST 02/28/2024 6:50 AM EST us Tono Stack MD LAB BLOOD ORDERABLES Final Re sult Performing Organization Address [facility]/ZIP Co de Phone Number [facility] [address] [place] [address], [place] [phone] * (ABNORMAL) Magnesium (02/27/2024 5:06 AM EST) Magnesium 1.3(L) 1.9 - 2.6 mg/dL LAB CHEMISTRY METHOD 02/27/2024 8:[address] [facility] Blood Venous blood specimen / Unknown Venipuncture / Unknown 02/27/2024 5:06 AM EST 02/27/2024 7:48 AM EST us Tono Stack MD LAB BLOOD ORDERABLES Final Re sult Performing Organization Address City/[facility]/ZIP Co de Phone Number [facility] [address] [place] [address], [place] [phone] * (ABNORMAL) Basic metabolic panel (02/27/2024 5:06 AM EST) Sodium 138 133 - 145 mmol/L LAB CHEMISTRY METHOD 02/27/2024 8:[address] [facility] Potassium 2.6(LL) 3.5 - 5.5 mmol/L LAB CHEMISTRY METHOD 02/27/2024 8:[address] [facility] Chloride 108 96 - 110 mmol/L LAB CHEMISTRY METHOD 02/27/2024 8:[address] [facility] CO2 25 21 - 32 mmol/L LAB CHEMISTRY METHOD 02/27/2024 8:[address] [facility] Anion Gap 5 3 - 11 LAB CHEMISTRY METHOD 02/27/2024 8:[address] [facility] Glucose 87 70 - 100 mg/dL LAB CHEMISTRY METHOD 02/27/2024 8:[address] [facility] BUN 2(L) 5 - 25 mg/dL LAB CHEMISTRY METHOD 02/27/2024 8:[address] [facility] Creatinine 0.19(L) 0.50 - 1.10 mg/dL LAB CHEMISTRY METHOD 02/27/2024 8:[address] [facility] eGFR 144 >=60 mL/min/1. 73m2 LAB CHEMISTRY METHOD 02/27/2024 8:[address] [facility] Comment:Calculation based on the??Chronic Kidney Disease Epidemiology Collaboration (CKD-EPI) equation refit??without adjustment for race. BUN/Creatinine Ratio 10.5 LAB CHEMISTRY METHOD 02/27/2024 8:[address] [facility] Calcium 6.4(L) 8.5 - 10.5 mg/dL LAB CHEMISTRY METHOD 02/27/2024 8:[address] [facility] Blood Venous blood specimen / Unknown Venipuncture / Unknown 02/27/2024 5:06 AM EST 02/27/2024 7:48 AM EST us Tono Stack MD LAB BLOOD ORDERABLES Final Re sult [facility] [address] [place] [address], * (ABNORMAL) Complete blood count (02/27/2024 5:06 AM EST) WBC 2.5(L) 4.8 - 10.8 K/mcL LAB HEMETOLOGY METHOD 02/27/2024 8:[address] [facility] RBC 2.90(L) 3.80 - 4.80 M/mcL LAB HEMETOLOGY METHOD 02/27/2024 8:[address] [facility] Hemoglobin 7.1(L) 11.5 - 16.0 g/dL LAB HEMETOLOGY METHOD 02/27/2024 8:[address] [facility] Hematocrit 22.9(L) 35.0 - 47.0 % LAB HEMETOLOGY METHOD 02/27/2024 8:[address] [facility] MCV 79.8 79.0 - 98.0 FL LAB HEMETOLOGY METHOD 02/27/2024 8:[address] [facility] MCH 24.7(L) 27.0 - 32.0 pcg LAB HEMETOLOGY METHOD 02/27/2024 8:[address] [facility] MCHC 31.0(L) 32.0 - 37.0 g/dL LAB HEMETOLOGY METHOD 02/27/2024 8:[address] [facility] RDW 20.7(H) 11.0 - 15.0 % LAB HEMETOLOGY METHOD 02/27/2024 8:[address] [facility] Platelets 98(L) 130 - 400 K/mcL LAB HEMETOLOGY METHOD 02/27/2024 8:[address] [facility] Comment:reviewed by slide MPV 10.4 7.0 - 11.0 FL LAB HEMETOLOGY METHOD 02/27/2024 8:[address] [facility] NRBC 0.0 <1.0 % LAB HEMETOLOGY METHOD 02/27/2024 8:[address] [facility] NRBC Absolute 0.00 <0.10 K/mcL LAB HEMETOLOGY METHOD 02/27/2024 8:[address] [facility] Blood Venous blood specimen / Unknown Venipuncture / Unknown 02/27/2024 5:06 AM EST 02/27/2024 7:48 AM EST Tono Stack MD LAB BLOOD ORDERABLES Final Re sult Performing Organization Address [facility]/ZIP Co de Phone Number [facility] [address] [place] [address], * (ABNORMAL) Magnesium (02/26/2024 9:20 AM EST) Magnesium 1.8(L) 1.9 - 2.6 mg/dL LAB CHEMISTRY METHOD 02/26/2024 10:[address] [facility] Blood Venous blood specimen / Unknown Venipuncture / Unknown 02/26/2024 9:20 AM EST 02/26/2024 9:35 AM EST us Tono Stack MD LAB BLOOD ORDERABLES Final Re sult Performing Organization Address [facility] Co de Phone Number [facility] [address] [place] [address], * (ABNORMAL) Basic metabolic panel (02/26/2024 9:20 AM EST) Sodium 133 133 - 145 mmol/L LAB CHEMISTRY METHOD 02/26/2024 10:[address] [facility] Potassium 3.1(L) 3.5 - 5.5 mmol/L LAB CHEMISTRY METHOD 02/26/2024 10:[address] [facility] Chloride 98 96 - 110 mmol/L LAB CHEMISTRY METHOD 02/26/2024 10:[address] [facility] CO2 29 21 - 32 mmol/L LAB CHEMISTRY METHOD 02/26/2024 10:[address] [facility] Anion Gap 6 3 - 11 LAB CHEMISTRY METHOD 02/26/2024 10:[address] [facility] Glucose 149(H) 70 - 100 mg/dL LAB CHEMISTRY METHOD 02/26/2024 10:[address] [facility] BUN 3(L) 5 - 25 mg/dL LAB CHEMISTRY METHOD 02/26/2024 10:[address] [facility] Creatinine 0.41(L) 0.50 - 1.10 mg/dL LAB CHEMISTRY METHOD 02/26/2024 10:[address] [facility] eGFR 119 >=60 mL/min/1. 73m2 LAB CHEMISTRY METHOD 02/26/2024 10:[address] [facility] Comment:Calculation based on the??Chronic Kidney Disease Epidemiology Collaboration (CKD-EPI) equation refit??without adjustment for race. BUN/Creatinine Ratio 7.3 LAB CHEMISTRY METHOD 02/26/2024 10:[address] [facility] Calcium 8.0(L) 8.5 - 10.5 mg/dL LAB CHEMISTRY METHOD 02/26/2024 10:[address] [facility] Blood Venous blood specimen / Unknown Venipuncture / Unknown 02/26/2024 9:20 AM EST 02/26/2024 9:35 AM EST us Tono Stack MD LAB BLOOD ORDERABLES Final Re sult [facility] [address] [place] [address], * (ABNORMAL) Complete blood count (02/26/2024 9:20 AM EST) WBC 2.4(L) 4.8 - 10.8 K/mcL LAB HEMETOLOGY METHOD 02/26/2024 10:[address] [facility] RBC 2.90(L) 3.80 - 4.80 M/mcL LAB HEMETOLOGY METHOD 02/26/2024 10:[address] [facility] Hemoglobin 7.3(L) 11.5 - 16.0 g/dL LAB HEMETOLOGY METHOD 02/26/2024 10:[address] [facility] Hematocrit 23.4(L) 35.0 - 47.0 % LAB HEMETOLOGY METHOD 02/26/2024 10:[address] [facility] MCV 80.1 79.0 - 98.0 FL LAB HEMETOLOGY METHOD 02/26/2024 10:[address] [facility] MCH 25.0(L) 27.0 - 32.0 pcg LAB HEMETOLOGY METHOD 02/26/2024 10:[address] [facility] MCHC 31.2(L) 32.0 - 37.0 g/dL LAB HEMETOLOGY METHOD 02/26/2024 10:[address] [facility] RDW 20.9(H) 11.0 - 15.0 % LAB HEMETOLOGY METHOD 02/26/2024 10:[address] [facility] Platelets 121(L) 130 - 400 K/mcL LAB HEMETOLOGY METHOD 02/26/2024 10:[address] [facility] MPV 9.3 7.0 - 11.0 FL LAB HEMETOLOGY METHOD 02/26/2024 10:[address] [facility] NRBC 0.0 <1.0 % LAB HEMETOLOGY METHOD 02/26/2024 10:[address] [facility] NRBC Absolute 0.00 <0.10 K/mcL LAB HEMETOLOGY METHOD 02/26/2024 10:[address] [facility] Blood Venous blood specimen / Unknown Venipuncture / Unknown 02/26/2024 9:20 AM EST 02/26/2024 9:35 AM EST us Tono Stack MD LAB BLOOD ORDERABLES Final Re sult [facility] [address] [place] [address], * (ABNORMAL) Basic metabolic panel (02/25/2024 4:53 AM EST) Sodium 132(L) 133 - 145 mmol/L LAB CHEMISTRY METHOD 02/25/2024 7:[address] [facility] Potassium 3.3(L) 3.5 - 5.5 mmol/L LAB CHEMISTRY METHOD 02/25/2024 7:[address] [facility] Chloride 98 96 - 110 mmol/L LAB CHEMISTRY METHOD 02/25/2024 7:[address] [facility] CO2 31 21 - 32 mmol/L LAB CHEMISTRY METHOD 02/25/2024 7:[address] [facility] Anion Gap 3 3 - 11 LAB CHEMISTRY METHOD 02/25/2024 7:[address] [facility] Glucose 103(H) 70 - 100 mg/dL LAB CHEMISTRY METHOD 02/25/2024 7:[address] [facility] BUN 4(L) 5 - 25 mg/dL LAB CHEMISTRY METHOD 02/25/2024 7:[address] [facility] Creatinine 0.40(L) 0.50 - 1.10 mg/dL LAB CHEMISTRY METHOD 02/25/2024 7:[address] [facility] eGFR 120 >=60 mL/min/1. 73m2 LAB CHEMISTRY METHOD 02/25/2024 7:[address] [facility] Comment:Calculation based on the??Chronic Kidney Disease Epidemiology Collaboration (CKD-EPI) equation refit??without adjustment for race. BUN/Creatinine Ratio 10.0 LAB CHEMISTRY METHOD 02/25/2024 7:[address] [facility] Calcium 7.4(L) 8.5 - 10.5 mg/dL LAB CHEMISTRY METHOD 02/25/2024 7:[address] [facility] Blood Venous blood specimen / Unknown Venipuncture / Unknown 02/25/2024 4:53 AM EST 02/25/2024 6:49 AM EST us Tono Stack MD LAB BLOOD ORDERABLES Final Re sult Performing Organization Address [facility]/ZIP Co de Phone Number [facility] [address] [place] [address], [place] [phone] * (ABNORMAL) Magnesium (02/25/2024 4:53 AM EST) Magnesium 1.8(L) 1.9 - 2.6 mg/dL LAB CHEMISTRY METHOD 02/25/2024 7:[address] [facility] Blood Venous blood specimen / Unknown Venipuncture / Unknown 02/25/2024 4:53 AM EST 02/25/2024 6:49 AM EST us Tono Stack MD LAB BLOOD ORDERABLES Final Re sult Performing Organization Address [facility]/ZIP Co de Phone Number [facility] [address] [place] [address], * (ABNORMAL) Complete blood count (02/25/2024 4:53 AM EST) WBC 2.7(L) 4.8 - 10.8 K/mcL LAB HEMETOLOGY METHOD 02/25/2024 7:[address] [facility] RBC 2.80(L) 3.80 - 4.80 M/[facility] LAB HEMETOLOGY METHOD 02/25/2024 7:[address] [facility] Hemoglobin 7.1(L) 11.5 - 16.0 g/dL LAB HEMETOLOGY METHOD 02/25/2024 7:[address] [facility] Hematocrit 22.7(L) 35.0 - 47.0 % LAB HEMETOLOGY METHOD 02/25/2024 7:[address] [facility] MCV 80.2 79.0 - 98.0 FL LAB HEMETOLOGY METHOD 02/25/2024 7:[address] [facility] MCH 25.1(L) 27.0 - 32.0 pcg LAB HEMETOLOGY METHOD 02/25/2024 7:[address] [facility] MCHC 31.3(L) 32.0 - 37.0 g/dL LAB HEMETOLOGY METHOD 02/25/2024 7:[address] [facility] RDW 20.7(H) 11.0 - 15.0 % LAB HEMETOLOGY METHOD 02/25/2024 7:[address] [facility] Platelets 154 130 - 400 K/mcL LAB HEMETOLOGY METHOD 02/25/2024 7:[address] [facility] MPV 9.9 7.0 - 11.0 FL LAB HEMETOLOGY METHOD 02/25/2024 7:[address] [facility] NRBC 0.0 <1.0 % LAB HEMETOLOGY METHOD 02/25/2024 7:[address] [facility] NRBC Absolute 0.00 <0.10 K/mcL LAB HEMETOLOGY METHOD 02/25/2024 7:[address] [facility] Blood Venous blood specimen / Unknown Venipuncture / Unknown 02/25/2024 4:53 AM EST 02/25/2024 6:50 AM EST us Tono Stack MD LAB BLOOD ORDERABLES Final Re sult [facility] [address] [place] [address], * (ABNORMAL) Hemoglobin and hematocrit (02/24/2024 10:12 AM EST) Hemoglobin 7.3(L) 11.5 - 16.0 g/dL LAB HEMETOLOGY METHOD 02/24/2024 10:[address] [facility] Hematocrit 23.5(L) 35.0 - 47.0 % LAB HEMETOLOGY METHOD 02/24/2024 10:[address] [facility] Blood Blood sample taken from central line / Unknown Venipuncture / Unknown 02/24/2024 10:12 AM EST 02/24/2024 10:33 AM EST us Tono Stack MD LAB BLOOD ORDERABLES Final Re sult [facility] [address] [place] [address], * (ABNORMAL) Complete blood count (02/24/2024 6:24 AM EST) WBC 2.4(L) 4.8 - 10.8 K/mcL LAB HEMETOLOGY METHOD 02/24/2024 6:[address] [facility] RBC 2.80(L) 3.80 - 4.80 M/[facility] LAB HEMETOLOGY METHOD 02/24/2024 6:[address] [facility] Hemoglobin 7.1(L) 11.5 - 16.0 g/dL LAB HEMETOLOGY METHOD 02/24/2024 6:[address] [facility] Hematocrit 22.6(L) 35.0 - 47.0 % LAB HEMETOLOGY METHOD 02/24/2024 6:[address] [facility] MCV 80.7 79.0 - 98.0 FL LAB HEMETOLOGY METHOD 02/24/2024 6:[address] [facility] MCH 25.4(L) 27.0 - 32.0 pcg LAB HEMETOLOGY METHOD 02/24/2024 6:[address] [facility] MCHC 31.4(L) 32.0 - 37.0 g/dL LAB HEMETOLOGY METHOD 02/24/2024 6:[address] [facility] RDW 20.3(H) 11.0 - 15.0 % LAB HEMETOLOGY METHOD 02/24/2024 6:[address] [facility] Platelets 150 130 - 400 K/mcL LAB HEMETOLOGY METHOD 02/24/2024 6:[address] [facility] MPV 8.9 7.0 - 11.0 FL LAB HEMETOLOGY METHOD 02/24/2024 6:[address] [facility] NRBC 0.0 <1.0 % LAB HEMETOLOGY METHOD 02/24/2024 6:[address] [facility] NRBC Absolute 0.00 <0.10 K/mcL LAB HEMETOLOGY METHOD 02/24/2024 6:[address] [facility] Blood Venous blood specimen / Unknown Venipuncture / Unknown 02/24/2024 6:24 AM EST 02/24/2024 6:44 AM EST us Tono Stack MD LAB BLOOD ORDERABLES Final Re sult [facility] [address] [place] [address], * (ABNORMAL) Basic metabolic panel (02/24/2024 6:24 AM EST) Sodium 135 133 - 145 mmol/L LAB CHEMISTRY METHOD 02/24/2024 7:[address] [facility] Potassium 3.2(L) 3.5 - 5.5 mmol/L LAB CHEMISTRY METHOD 02/24/2024 7:[address] [facility] Chloride 101 96 - 110 mmol/L LAB CHEMISTRY METHOD 02/24/2024 7:[address] [facility] CO2 29 21 - 32 mmol/L LAB CHEMISTRY METHOD 02/24/2024 7:[address] [facility] Anion Gap 5 3 - 11 LAB CHEMISTRY METHOD 02/24/2024 7:[address] [facility] Glucose 102(H) 70 - 100 mg/dL LAB CHEMISTRY METHOD 02/24/2024 7:[address] [facility] BUN 4(L) 5 - 25 mg/dL LAB CHEMISTRY METHOD 02/24/2024 7:[address] [facility] Creatinine 0.36(L) 0.50 - 1.10 mg/dL LAB CHEMISTRY METHOD 02/24/2024 7:[address] [facility] eGFR 123 >=60 mL/min/1. 73m2 LAB CHEMISTRY METHOD 02/24/2024 7:[address] [facility] Comment:Calculation based on the??Chronic Kidney Disease Epidemiology Collaboration (CKD-EPI) equation refit??without adjustment for race. BUN/Creatinine Ratio 11.1 LAB CHEMISTRY METHOD 02/24/2024 7:[address] [facility] Calcium 7.6(L) 8.5 - 10.5 mg/dL LAB CHEMISTRY METHOD 02/24/2024 7:[address] [facility] Blood Venous blood specimen / Unknown Venipuncture / Unknown 02/24/2024 6:24 AM EST 02/24/2024 6:44 AM EST us Tono Stack MD LAB BLOOD ORDERABLES Final Re sult [facility] [address] [place] [address], * Magnesium (02/24/2024 6:24 AM EST) Magnesium 1.9 1.9 - 2.6 mg/dL LAB CHEMISTRY METHOD 02/24/2024 7:[address] [facility] Blood Venous blood specimen / Unknown Venipuncture / Unknown 02/24/2024 6:24 AM EST 02/24/2024 6:44 AM EST us Tono Stack MD LAB BLOOD ORDERABLES Final Re sult Performing Organization Address [facility] de Phone Number [facility] [address] [place] [address], [place] [phone] * Phosphorus (02/23/2024 6:52 AM EST) [facility] Phosphorus 2.5 2.5 - 4.5 mg/dL LAB CHEMISTRY METHOD 02/23/2024 9:[address] [facility] Blood Blood sample taken from central line / Unknown Existing Catheter / Unknown 02/23/2024 6:52 AM EST 02/23/2024 7:24 AM EST us Tono Stack MD LAB BLOOD ORDERABLES Final Re sult Performing Organization Address [facility] Co de Phone Number [facility] [address] [place] [address], [place] [phone] * (ABNORMAL) Magnesium (02/23/2024 6:52 AM EST) [facility] Magnesium 1.1(L) 1.9 - 2.6 mg/dL LAB CHEMISTRY METHOD 02/23/2024 9:[address] [facility] Blood Blood sample taken from central line / Unknown Existing Catheter / Unknown 02/23/2024 6:52 AM EST 02/23/2024 7:24 AM EST us Tono Stack MD LAB BLOOD ORDERABLES Final Re sult Performing Organization Address [facility]/ZIP Co de Phone Number [facility] [address] [place] [address], [place] [phone] * (ABNORMAL) Basic metabolic panel (02/23/2024 6:52 AM EST) Sodium 137 133 - 145 mmol/L LAB CHEMISTRY METHOD 02/23/2024 8:[address] [facility] Potassium 2.6(LL) 3.5 - 5.5 mmol/L LAB CHEMISTRY METHOD 02/23/2024 8:[address] [facility] Chloride 102 96 - 110 mmol/L LAB CHEMISTRY METHOD 02/23/2024 8:[address] [facility] CO2 29 21 - 32 mmol/L LAB CHEMISTRY METHOD 02/23/2024 8:[address] [facility] Anion Gap 6 3 - 11 LAB CHEMISTRY METHOD 02/23/2024 8:[address] [facility] Glucose 104(H) 70 - 100 mg/dL LAB CHEMISTRY METHOD 02/23/2024 8:[address] [facility] BUN 2(L) 5 - 25 mg/dL LAB CHEMISTRY METHOD 02/23/2024 8:[address] [facility] Creatinine 0.37(L) 0.50 - 1.10 mg/dL LAB CHEMISTRY METHOD 02/23/2024 8:[address] [facility] eGFR 122 >=60 mL/min/1. 73m2 LAB CHEMISTRY METHOD 02/23/2024 8:[address] [facility] Comment:Calculation based on the??Chronic Kidney Disease Epidemiology Collaboration (CKD-EPI) equation refit??without adjustment for race. BUN/Creatinine Ratio 5.4 LAB CHEMISTRY METHOD 02/23/2024 8:[address] [facility] Calcium 7.8(L) 8.5 - 10.5 mg/dL LAB CHEMISTRY METHOD 02/23/2024 8:[address] [facility] Blood Blood sample taken from central line / Unknown Existing Catheter / Unknown 02/23/2024 6:52 AM EST 02/23/2024 7:24 AM EST Tono Stack MD LAB BLOOD ORDERABLES Final Re sult [facility] [address] [place] [address], * (ABNORMAL) Complete blood count (02/23/2024 6:52 AM EST) [facility] Signature WBC 3.0(L) 4.8 - 10.8 K/mcL LAB HEMETOLOGY METHOD 02/23/2024 7:[address] [facility] RBC 2.90(L) 3.80 - 4.80 M/mcL LAB HEMETOLOGY METHOD 02/23/2024 7:[address] [facility] Hemoglobin 7.3(L) 11.5 - 16.0 g/dL LAB HEMETOLOGY METHOD 02/23/2024 7:[address] [facility] Hematocrit 23.5(L) 35.0 - 47.0 % LAB HEMETOLOGY METHOD 02/23/2024 7:[address] [facility] MCV 81.0 79.0 - 98.0 FL LAB HEMETOLOGY METHOD 02/23/2024 7:[address] [facility] MCH 25.2(L) 27.0 - 32.0 pcg LAB HEMETOLOGY METHOD 02/23/2024 7:[address] [facility] MCHC 31.1(L) 32.0 - 37.0 g/dL LAB HEMETOLOGY METHOD 02/23/2024 7:[address] [facility] RDW 20.6(H) 11.0 - 15.0 % LAB HEMETOLOGY METHOD 02/23/2024 7:[address] [facility] Platelets 187 130 - 400 K/mcL LAB HEMETOLOGY METHOD 02/23/2024 7:[address] [facility] MPV 9.3 7.0 - 11.0 FL LAB HEMETOLOGY METHOD 02/23/2024 7:[address] [facility] NRBC 0.0 <1.0 % LAB HEMETOLOGY METHOD 02/23/2024 7:[address] [facility] NRBC Absolute 0.00 <0.10 K/[facility] LAB HEMETOLOGY METHOD 02/23/2024 7:[address] [facility] Blood Blood sample taken from central line / Unknown Existing Catheter / Unknown 02/23/2024 6:52 AM EST 02/23/2024 7:24 AM EST us Tono Stack MD LAB BLOOD ORDERABLES Final Re sult Performing Organization Address [facility]/ZIP Co de Phone Number [facility] [address] [place] [address], [place] [phone] * (ABNORMAL) Hemoglobin and hematocrit (02/20/2024 5:08 PM EST) Hemoglobin 8.4(L) 11.5 - 16.0 g/dL LAB HEMETOLOGY METHOD 02/20/2024 5:[address] [facility] Hematocrit 27.2(L) 35.0 - 47.0 % LAB HEMETOLOGY METHOD 02/20/2024 5:[address] [facility] Blood Venous blood specimen / Unknown Venipuncture / Unknown 02/20/2024 5:08 PM EST 02/20/2024 5:40 PM EST Al Gan MD LAB BLOOD ORDERABLES Fi nal Result [facility] [address] [place] [address], [place] [phone] * (ABNORMAL) CBC auto differential (02/19/2024 8:01 AM EST) WBC 3.9(L) 4.8 - 10.8 K/mcL LAB HEMETOLOGY METHOD 02/19/2024 8:[address] [facility] RBC 3.40(L) 3.80 - 4.80 M/mcL LAB HEMETOLOGY METHOD 02/19/2024 8:[address] [facility] Hemoglobin 8.4(L) 11.5 - 16.0 g/dL LAB HEMETOLOGY METHOD 02/19/2024 8:[address] [facility] Hematocrit 27.0(L) 35.0 - 47.0 % LAB HEMETOLOGY METHOD 02/19/2024 8:[address] [facility] MCV 79.9 79.0 - 98.0 FL LAB HEMETOLOGY METHOD 02/19/2024 8:[address] [facility] MCH 24.9(L) 27.0 - 32.0 pcg LAB HEMETOLOGY METHOD 02/19/2024 8:[address] [facility] MCHC 31.1(L) 32.0 - 37.0 g/dL LAB HEMETOLOGY METHOD 02/19/2024 8:[address] [facility] RDW 19.6(H) 11.0 - 15.0 % LAB HEMETOLOGY METHOD 02/19/2024 8:[address] [facility] Platelets 264 130 - 400 K/mcL LAB HEMETOLOGY METHOD 02/19/2024 8:[address] [facility] MPV 9.7 7.0 - 11.0 FL LAB HEMETOLOGY METHOD 02/19/2024 8:[address] [facility] NRBC 0.0 <1.0 % LAB HEMETOLOGY METHOD 02/19/2024 8:[address] [facility] NRBC Absolute 0.00 <0.10 K/mcL LAB HEMETOLOGY METHOD 02/19/2024 8:[address] [facility] Neutrophils Relative 76.4 % LAB HEMETOLOGY METHOD 02/19/2024 8:[address] [facility] Lymphocytes Relative 17.5 % LAB HEMETOLOGY METHOD 02/19/2024 8:[address] [facility] Monocytes Relative 3.6 % LAB HEMETOLOGY METHOD 02/19/2024 8:[address] [facility] Eosinophils Relative 0.5 % LAB HEMETOLOGY METHOD 02/19/2024 8:[address] [facility] Basophils Relative 0.5 % LAB HEMETOLOGY METHOD 02/19/2024 8:[address] [facility] Immature Granulocytes Relative 1.5 % LAB HEMETOLOGY METHOD 02/19/2024 8:[address] [facility] Neutrophils Absolute 2.96 1.50 - 7.00 K/mcL LAB HEMETOLOGY METHOD 02/19/2024 8:[address] [facility] Lymphocytes Absolute 0.68(L) 1.00 - 5.00 K/mcL LAB HEMETOLOGY METHOD 02/19/2024 8:[address] [facility] Monocytes Absolute 0.14(L) 0.20 - 1.00 K/mcL LAB HEMETOLOGY METHOD 02/19/2024 8:[address] [facility] Eosinophils Absolute 0.02 0.00 - 0.50 K/mcL LAB HEMETOLOGY METHOD 02/19/2024 8:[address] [facility] Basophils Absolute 0.02 0.00 - 0.20 K/mcL LAB HEMETOLOGY METHOD 02/19/2024 8:[address] [facility] Immature Granulocytes Absolute 0.06(H) 0.00 - 0.03 K/mcL LAB HEMETOLOGY METHOD 02/19/2024 8:[address] [facility] Blood Venous blood specimen / Unknown Venipuncture / Unknown 02/19/2024 8:01 AM EST 02/19/2024 8:16 AM EST us Al Gan MD LAB BLOOD ORDERABLES Fi nal Result Performing Organization Address City/[facility]/ZIP Co de Phone Number [facility] [address] [place] [address], * Lavender tube (02/18/2024 7:04 AM EST) Extra Tube Hold for add-ons. 02/18/2024 9:[address] [facility] Comment:Auto resulted. Blood Venous blood specimen / Unknown Venipuncture / Unknown 02/18/2024 7:04 AM EST 02/18/2024 7:23 AM EST Al Gan MD LAB BLOOD ORDERABLES Fi nal Result Performing Organization Address [facility] de Phone Number [facility] [address] [place] [address], * Lactate, with reflex (02/18/2024 7:04 AM EST) LACTIC ACID 0.9 0.4 - 2.0 mmol/L LAB CHEMISTRY METHOD 02/18/2024 8:[address] [facility] Blood Venous blood specimen / Unknown Venipuncture / Unknown 02/18/2024 7:04 AM EST 02/18/2024 7:18 AM EST [facility] LAB BLOOD ORDERABLES Final R esult Performing Organization Address [facility]/ZIP Co de Phone Number [facility] [address] [place] [address], * Procalcitonin (02/18/2024 7:04 AM EST) Procalcitonin 0.05 <=0.16 ng/mL LAB CHEMISTRY METHOD 02/18/2024 8:[address] [facility] Blood Venous blood specimen / Unknown Venipuncture / Unknown 02/18/2024 7:04 AM EST 02/18/2024 7:[address] [facility] - 02/18/2024 8:52 AM EST [...] if any concentrations <2.0 ng/mL are obtained. us [facility] LAB BLOOD ORDERABLES Final R esult [facility] [address] [place] [address], * (ABNORMAL) Complete blood count (02/18/2024 3:21 AM EST) [facility] WBC 4.5(L) 4.8 - 10.8 K/mcL LAB HEMETOLOGY METHOD 02/18/2024 3:[address] [facility] RBC 2.90(L) 3.80 - 4.80 M/mcL LAB HEMETOLOGY METHOD 02/18/2024 3:[address] [facility] Hemoglobin 7.1(L) 11.5 - 16.0 g/dL LAB HEMETOLOGY METHOD 02/18/2024 3:[address] [facility] Hematocrit 23.3(L) 35.0 - 47.0 % LAB HEMETOLOGY METHOD 02/18/2024 3:[address] [facility] MCV 79.5 79.0 - 98.0 FL LAB HEMETOLOGY METHOD 02/18/2024 3:[address] [facility] MCH 24.2(L) 27.0 - 32.0 pcg LAB HEMETOLOGY METHOD 02/18/2024 3:[address] [facility] MCHC 30.5(L) 32.0 - 37.0 g/dL LAB HEMETOLOGY METHOD 02/18/2024 3:[address] [facility] RDW 19.8(H) 11.0 - 15.0 % LAB HEMETOLOGY METHOD 02/18/2024 3:[address] [facility] Platelets 231 130 - 400 K/mcL LAB HEMETOLOGY METHOD 02/18/2024 3:[address] [facility] MPV 9.6 7.0 - 11.0 FL LAB HEMETOLOGY METHOD 02/18/2024 3:[address] [facility] NRBC 0.0 <1.0 % LAB HEMETOLOGY METHOD 02/18/2024 3:[address] [facility] NRBC Absolute 0.00 <0.10 K/mcL LAB HEMETOLOGY METHOD 02/18/2024 3:[address] [facility] Blood Venous blood specimen / Unknown Venipuncture / Unknown 02/18/2024 3:21 AM EST 02/18/2024 3:26 AM EST us [facility] LAB BLOOD ORDERABLES Final R esult [facility] [address] [place] [address], * (ABNORMAL) Basic metabolic panel (02/18/2024 3:21 AM EST) Sodium 135 133 - 145 mmol/L LAB CHEMISTRY METHOD 02/18/2024 4:[address] [facility] Potassium 3.5 3.5 - 5.5 mmol/L LAB CHEMISTRY METHOD 02/18/2024 4:[address] [facility] Chloride 101 96 - 110 mmol/L LAB CHEMISTRY METHOD 02/18/2024 4:[address] [facility] CO2 30 21 - 32 mmol/L LAB CHEMISTRY METHOD 02/18/2024 4:[address] [facility] Anion Gap 4 3 - 11 LAB CHEMISTRY METHOD 02/18/2024 4:[address] [facility] Glucose 93 70 - 100 mg/dL LAB CHEMISTRY METHOD 02/18/2024 4:[address] [facility] BUN 3(L) 5 - 25 mg/dL LAB CHEMISTRY METHOD 02/18/2024 4:[address] [facility] Creatinine 0.50 0.50 - 1.10 mg/dL LAB CHEMISTRY METHOD 02/18/2024 4:[address] [facility] eGFR 114 >=60 mL/min/1. 73m2 LAB CHEMISTRY METHOD 02/18/2024 4:[address] [facility] Comment:Calculation based on the??Chronic Kidney Disease Epidemiology Collaboration (CKD-EPI) equation refit??without adjustment for race. BUN/Creatinine Ratio 6.0 LAB CHEMISTRY METHOD 02/18/2024 4:[address] [facility] Calcium 8.5 8.5 - 10.5 mg/dL LAB CHEMISTRY METHOD 02/18/2024 4:[address] [facility] Blood Venous blood specimen / Unknown Venipuncture / Unknown 02/18/2024 3:21 AM EST 02/18/2024 3:26 AM EST Magali ASCENCIO LAB BLOOD ORDERABLES Final R esult [facility] [address] [place] [address], [place] [phone] * Carranza urine culture tube (02/17/2024 5:27 PM EST) Pathologist [facility] Extra Tube Hold for add-ons. 02/17/2024 7:[address] [facility] Comment:Auto resulted. Urine Urine specimen obtained by clean catch procedure / Unknown Non-blood Collection / Unknown 02/17/2024 5:27 PM EST 02/17/2024 5:32 PM EST Carlos Malave MD LAB URINE ORDERABLES Yamila l Result Performing Organization Address City/[facility]/ZIP Co de Phone Number [facility] [address] [place] [address], [place] [phone] * (ABNORMAL) Urinalysis with reflex microscopic and culture (02/17/2024 5:27 PM EST) Pathologist [facility] Specific [place] Urine >1.045(H) 1.003 - 1.030 LAB URINALYSIS - AUTOMATED METHOD 02/17/2024 6:[address] [facility] pH, Urine 6.0 5.0 - 8.0 pH LAB URINALYSIS - AUTOMATED METHOD 02/17/2024 6:[address] [facility] Leukocytes, Urine Negative Negative LAB URINALYSIS - AUTOMATED METHOD 02/17/2024 6:[address] [facility] Nitrite, Urine Negative Negative LAB URINALYSIS - AUTOMATED METHOD 02/17/2024 6:[address] [facility] Protein, Urine 30(A) <=Trace mg/dL LAB URINALYSIS - AUTOMATED METHOD 02/17/2024 6:[address] [facility] Glucose, Urine Negative Negative mg/dL LAB URINALYSIS - AUTOMATED METHOD 02/17/2024 6:[address] [facility] Ketones, Urine Negative Negative mg/dL LAB URINALYSIS - AUTOMATED METHOD 02/17/2024 6:[address] [facility] Urobilinogen , Urine 0.2 0.2 - 1.0 mg/dL LAB URINALYSIS - AUTOMATED METHOD 02/17/2024 6:[address] [facility] Bilirubin, Urine Negative Negative LAB URINALYSIS - AUTOMATED METHOD 02/17/2024 6:[address] [facility] Blood, Urine Small(A) Negative LAB URINALYSIS - AUTOMATED METHOD 02/17/2024 6:[address] [facility] RBC, Urine 4.0 0 - 4 /HPF LAB URINALYSIS - AUTOMATED METHOD 02/17/2024 6:[address] [facility] WBC, Urine 4.0 0 - 4 /HPF LAB URINALYSIS - AUTOMATED METHOD 02/17/2024 6:[address] [facility] Squamous Epithelial, Urine >100(H) 0 - 60 /LPF LAB URINALYSIS - AUTOMATED METHOD 02/17/2024 6:[address] [facility] Non-Squamous Epithelial, Urine Rare Renal Tubular epithelial cells. 5-10 Transitional epithelial cells. /LPF LAB URINALYSIS - AUTOMATED METHOD 02/17/2024 6:[address] [facility] Crystals, Urine Light Calcium Oxalate crystals. Light Amorphous Urate crystals. /LPF LAB URINALYSIS - AUTOMATED METHOD 02/17/2024 6:[address] [facility] Bacteria, Urine Negative Negative /HPF LAB URINALYSIS - AUTOMATED METHOD 02/17/2024 6:[address] [facility] Urine Urine specimen obtained by clean catch procedure / Unknown Non-blood Collection / Unknown 02/17/2024 5:27 PM EST 02/17/2024 5:32 PM EST us Carlos Malave MD LAB URINE ORDERABLES Yamila domínguez Result [facility] ([facility]) [facility] [address] [place] [address], * CT Abdomen Pelvis w Contrast (02/17/2024 4:59 PM EST) Anatomical Region Laterality Modality Body Computed Tomogra [...] nephrolithiasis measures 3 mm. There is a Rocha catheter in the bladder, which is decompressed. [...] along the right pelvic sidewall. No aneurysm. [id number] calcified and noncalcified atherosclerotic disease. No ascites. [...] nephrolithiasis measures 3 mm. There is a Rocha catheter in the bladder, which is decompressed. [...] along the right pelvic sidewall. No aneurysm. Noxa-cl-cfkjulmz calcified and noncalcified atherosclerotic disease. No ascites. [...] Culture, Peripheral #2 (02/17/2024 4:27 PM EST) [facility] Culture, Blood No growth at 5 days 02/22/2024 5:[address] [facility] Blood Venous blood specimen / Unknown Venipuncture / Unknown 02/17/2024 4:27 PM EST 02/17/2024 4:46 PM EST us Carlos Malave MD LAB MICROBIOLOGY - GENERA L ORDERABLES Final Result Performing Organization Address City/[facility]/ZIP Co de Phone Number [facility] [address] [place] [address], [place] [phone] * Blood Culture, Peripheral #1 (02/17/2024 4:24 PM EST) [facility] Culture, Blood No growth at 5 days 02/22/2024 5:[address] [facility] Blood Venous blood specimen / Unknown Venipuncture / Unknown 02/17/2024 4:24 PM EST 02/17/2024 4:46 PM EST us Carlos Malave MD LAB MICROBIOLOGY - GENERA L ORDERABLES Final Result Performing Organization Address City/[facility]/ZIP Co de Phone Number [facility] [address] [place] [address], [place] [phone] * Respiratory virus panel molecular study (02/17/2024 4:22 PM EST) [facility] Adenovirus Detection by PCR Not Detected Not Detected LAB MICROBIOLOGY METHOD 02/17/2024 5:[address] [facility] Influenza A PCR Not Detected Not Detected LAB MICROBIOLOGY METHOD 02/17/2024 5:[address] [facility] Influenza B PCR Not Detected Not Detected LAB MICROBIOLOGY METHOD 02/17/2024 5:[address] [facility] Coronavirus 229E Not Detected Not Detected LAB MICROBIOLOGY METHOD 02/17/2024 5:[address] [facility] Coronavirus HKU1 Not Detected Not Detected LAB MICROBIOLOGY METHOD 02/17/2024 5:[address] [facility] Coronavirus OC43 Not Detected Not Detected LAB MICROBIOLOGY METHOD 02/17/2024 5:[address] [facility] Coronavirus NL63 Not Detected Not Detected LAB MICROBIOLOGY METHOD 02/17/2024 5:[address] [facility] Parainfluenza Virus 1 Not Detected Not Detected LAB MICROBIOLOGY METHOD 02/17/2024 5:[address] [facility] Parainfluenza Virus 2 Not Detected Not Detected LAB MICROBIOLOGY METHOD 02/17/2024 5:[address] [facility] Parainfluenza Virus 3 Not Detected Not Detected LAB MICROBIOLOGY METHOD 02/17/2024 5:[address] [facility] Parainfluenza Virus 4 Not Detected Not Detected LAB MICROBIOLOGY METHOD 02/17/2024 5:[address] [facility] RSV PCR Not Detected Not Detected LAB MICROBIOLOGY METHOD 02/17/2024 5:[address] [facility] Human Metapneumovirus A and B Not Detected Not Detected LAB MICROBIOLOGY METHOD 02/17/2024 5:[address] [facility] Rhinovirus/Entero virus Not Detected Not Detected LAB MICROBIOLOGY METHOD 02/17/2024 5:[address] [facility] Bordetella pertussis Not Detected Not Detected LAB MICROBIOLOGY METHOD 02/17/2024 5:[address] [facility] Bordetella parapertussis Not Detected Not Detected LAB MICROBIOLOGY METHOD 02/17/2024 5:[address] [facility] Mycoplasma pneumo by PCR Not Detected Not Detected LAB MICROBIOLOGY METHOD 02/17/2024 5:[address] [facility] Chlamydia pneumoniae Not Detected Not Detected LAB MICROBIOLOGY METHOD 02/17/2024 5:[address] [facility] SARS COV-2 Not Detected Not Detected LAB MICROBIOLOGY METHOD 02/17/2024 5:[address] [facility] Swab Both anterior nares / Unknown Non-blood Collection / Unknown 02/17/2024 4:22 PM EST 02/17/2024 4:[address] [facility] - 02/17/2024 5:42 PM EST Testing was performed using the VHT Respiratory Pathogen PCR Assay. All results must [...] MICROBIOLOGY - GENERA L ORDERABLES Final Result [facility] [address] [place] [address], * XR Chest 1 View (02/17/2024 4:06 PM EST) Anatomical Region Laterality Modality Body Radiographic Cesia ging 02/17/2024 4:16 PM EST Impressions 02/17/2024 4:17 PM EST Impression: No active pulmonary process identified. [place] ([id number]) -------- FINAL REPORT -------- Dictated By: Mae Oreilly Dictated Date: 02/17/2024 16:16 ET Assigned Physician: Mae Oreilly Reviewed and Electronically Signed By: Mae Oreilly Signed Date: 02/17/2024 16:17 ET Workstation ID: [id number] Transcribed By: Self Edit Transcribed Date: 02/17/2024 [...] No active pulmonary process identified. [place] ([id number]) -------- FINAL REPORT -------- Dictated By: Mae Oreilly Dictated Date: 02/17/2024 16:16 ET Assigned Physician: Mae Oreilly Reviewed and Electronically Signed By: Mae Oreilly Signed Date: 02/17/2024 16:17 ET Workstation ID: [id number] Transcribed By: Self Edit Transcribed Date: 02/17/2024 16:16 ET Carlos Malave MD IMG XR PROCEDURES Final R esult * Lactate, with Reflex (02/17/2024 3:42 PM EST) LACTIC ACID 1.2 0.4 - 2.0 mmol/L LAB CHEMISTRY METHOD 02/17/2024 4:40 PM EST [facility] [place] ([facility]) [facility] Blood Venous blood specimen / Unknown Venipuncture / Unknown 02/17/2024 3:42 PM EST 02/17/2024 4:05 PM EST Carlos Malave MD LAB BLOOD ORDERABLES Yamila l Result [facility] [address] [place] [address], * (ABNORMAL) CBC auto differential (02/17/2024 3:23 PM EST) [facility] WBC 6.1 4.8 - 10.8 K/mcL LAB HEMETOLOGY METHOD 02/17/2024 3:[address] [facility] RBC 3.40(L) 3.80 - 4.80 M/mcL LAB HEMETOLOGY METHOD 02/17/2024 3:[address] [facility] Hemoglobin 8.6(L) 11.5 - 16.0 g/dL LAB HEMETOLOGY METHOD 02/17/2024 3:[address] [facility] Hematocrit 27.5(L) 35.0 - 47.0 % LAB HEMETOLOGY METHOD 02/17/2024 3:[address] [facility] MCV 80.6 79.0 - 98.0 FL LAB HEMETOLOGY METHOD 02/17/2024 3:[address] [facility] MCH 25.2(L) 27.0 - 32.0 pcg LAB HEMETOLOGY METHOD 02/17/2024 3:[address] [facility] MCHC 31.3(L) 32.0 - 37.0 g/dL LAB HEMETOLOGY METHOD 02/17/2024 3:[address] [facility] RDW 19.9(H) 11.0 - 15.0 % LAB HEMETOLOGY METHOD 02/17/2024 3:[address] [facility] Platelets 261 130 - 400 K/mcL LAB HEMETOLOGY METHOD 02/17/2024 3:[address] [facility] MPV 9.9 7.0 - 11.0 FL LAB HEMETOLOGY METHOD 02/17/2024 3:[address] [facility] NRBC 0.0 <1.0 % LAB HEMETOLOGY METHOD 02/17/2024 3:[address] [facility] NRBC Absolute 0.00 <0.10 K/mcL LAB HEMETOLOGY METHOD 02/17/2024 3:[address] [facility] Neutrophils Relative 67.6 % LAB HEMETOLOGY METHOD 02/17/2024 3:[address] [facility] Lymphocytes Relative 23.7 % LAB HEMETOLOGY METHOD 02/17/2024 3:[address] [facility] Monocytes Relative 3.0 % LAB HEMETOLOGY METHOD 02/17/2024 3:[address] [facility] Eosinophils Relative 2.1 % LAB HEMETOLOGY METHOD 02/17/2024 3:[address] [facility] Basophils Relative 0.3 % LAB HEMETOLOGY METHOD 02/17/2024 3:[address] [facility] Immature Granulocytes Relative 3.3 % LAB HEMETOLOGY METHOD 02/17/2024 3:[address] [facility] Neutrophils Absolute 4.10 1.50 - 7.00 K/mcL LAB HEMETOLOGY METHOD 02/17/2024 3:[address] [facility] Lymphocytes Absolute 1.44 1.00 - 5.00 K/mcL LAB HEMETOLOGY METHOD 02/17/2024 3:[address] [facility] Monocytes Absolute 0.18(L) 0.20 - 1.00 K/mcL LAB HEMETOLOGY METHOD 02/17/2024 3:[address] [facility] Eosinophils Absolute 0.13 0.00 - 0.50 K/mcL LAB HEMETOLOGY METHOD 02/17/2024 3:[address] [facility] Basophils Absolute 0.02 0.00 - 0.20 K/mcL LAB HEMETOLOGY METHOD 02/17/2024 3:[address] [facility] Immature Granulocytes Absolute 0.20(H) 0.00 - 0.03 K/mcL LAB HEMETOLOGY METHOD 02/17/2024 3:[address] [facility] Blood Venous blood specimen / Unknown Venipuncture / Unknown 02/17/2024 3:23 PM EST 02/17/2024 3:45 PM EST us Carlos Malave MD LAB BLOOD ORDERABLES Yamila l Result [facility] [address] [place] [address], [place] [phone] * (ABNORMAL) Comprehensive metabolic panel (02/17/2024 3:23 PM EST) Sodium 128(L) 133 - 145 mmol/L LAB CHEMISTRY METHOD 02/17/2024 4:[address] [facility] Potassium 3.7 3.5 - 5.5 mmol/L LAB CHEMISTRY METHOD 02/17/2024 4:[address] [facility] Chloride 95(L) 96 - 110 mmol/L LAB CHEMISTRY METHOD 02/17/2024 4:[address] [facility] CO2 29 21 - 32 mmol/L LAB CHEMISTRY METHOD 02/17/2024 4:[address] [facility] Anion Gap 4 3 - 11 LAB CHEMISTRY METHOD 02/17/2024 4:[address] [facility] Glucose 106(H) 70 - 100 mg/dL LAB CHEMISTRY METHOD 02/17/2024 4:[address] [facility] BUN 6 5 - 25 mg/dL LAB CHEMISTRY METHOD 02/17/2024 4:[address] [facility] Creatinine 0.52 0.50 - 1.10 mg/dL LAB CHEMISTRY METHOD 02/17/2024 4:[address] [facility] eGFR 113 >=60 mL/min/1. 73m2 LAB CHEMISTRY METHOD 02/17/2024 4:[address] [facility] Comment:Calculation based on the??Chronic Kidney Disease Epidemiology Collaboration (CKD-EPI) equation refit??without adjustment for race. BUN/Creatinine Ratio 11.5 LAB CHEMISTRY METHOD 02/17/2024 4:[address] [facility] Calcium 8.7 8.5 - 10.5 mg/dL LAB CHEMISTRY METHOD 02/17/2024 4:[address] [facility] AST (SGOT) 13 10 - 42 unit/L LAB CHEMISTRY METHOD 02/17/2024 4:[address] [facility] ALT (SGPT) 14 10 - 60 unit/L LAB CHEMISTRY METHOD 02/17/2024 4:[address] [facility] Alkaline Phosphatase 98 42 - 121 unit/L LAB CHEMISTRY METHOD 02/17/2024 4:[address] [facility] Total Protein 5.0(L) 6.0 - 8.0 g/dL LAB CHEMISTRY METHOD 02/17/2024 4:[address] [facility] Albumin 1.7(L) 3.2 - 5.0 g/dL LAB CHEMISTRY METHOD 02/17/2024 4:[address] [facility] Total Bilirubin 0.4 0.0 - 1.4 mg/dL LAB CHEMISTRY METHOD 02/17/2024 4:[address] [facility] Blood Venous blood specimen / Unknown Venipuncture / Unknown 02/17/2024 3:23 PM EST 02/17/2024 3:44 PM EST us Carlos Malave MD LAB BLOOD ORDERABLES Yamila l Result [facility] [address] [place] [address], * (ABNORMAL) Lipase (02/17/2024 3:23 PM EST) Lipase 10(L) 13 - 75 unit/L LAB CHEMISTRY METHOD 02/17/2024 4:[address] [facility] Blood Venous blood specimen / Unknown Venipuncture / Unknown 02/17/2024 3:23 PM EST 02/17/2024 3:45 PM EST us Carlos Malave MD LAB BLOOD ORDERABLES Yamila sang Result 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, unspecified site Dehydration with hyponatremia Hyposmolality and/or hyponatremia Weakness generalized Other malaise and fatigue documented in this encounter Admitting Diagnoses Diagnosis Dehydration with hyponatremia Hyposmolality and/or hyponatremia documented in this encounter Administered Medications Inactive Administered Medications - up to 3 most recent administrations Medication Order MAR Action Action Date Dose Rate Site acetaminophen (TYLENOL) tablet 650 mg 650 mg, oral, Every 6 hours PRN, mild pain, fever - temperature GREATER than 38 C (100.4 F), Starting on Fri02/17/24 at 2055, For 3 days Given 02/20/2024 4:22 PM EST 650 mg Given 02/19/2024 4:13 PM EST 650 mg albumin human 25 % infusion 25 g 25 g, intravenous, Once, On Fri02/17/24 at 1839, For 1 dose, Do not exceed 1 mL/minute in patients with normal plasma volume; 3 mL/minute in patients with hypoproteinemia., Indications: hypoalbuminemiaIndications:hypoalb uminemia New Bag 02/17/2024 6:47 PM EST 25 g 100 mL/hr albumin human 25 % infusion 25 g 25 g, intravenous, Once, On Fri02/18/24 at 0315, For 1 dose, FOR HYPOVOLEMIC SHOCK: Infuse 5% Albumin as rapidly as tolerated (500 mL over 1 - 2 hr) or (250 mL over 30 - 60 min), as blood volume approaches normal then infusion rate should not exceed 1 mL/min. Infusing too rapidly may cause vascular overload which may lead to pulmonary edema or cardiac failure. ROUTINE REPLACEMENT: (non-critical) Infuse 5% or 25% Albumin @ 100 mL/hr for routine albumin replacement in non-critical situations. Faster infusion rates are appropriate for hypovolemic shock (see above). ADMINISTRATION NOTE: A 15-micron filter is only required for Buminate; however, filters are NOT required for all other brands (Albuked, Albuminar, Albuminex, AlbuRx, Albutein, Flexbumin, Kedbumin, Plasbumin). Do not exceed 1 mL/minute in patients with normal plasma volume; 3 mL/minute in patients with hypoproteinemia., Indications: hypotensionIndications:hypotension New Bag 02/18/2024 3:07 AM EST 25 g albumin human 5 % infusion 25 g 25 g, intravenous, Once, On Fri02/18/24 at 0730, For 1 dose, FOR HYPOVOLEMIC SHOCK: Infuse 5% Albumin as rapidly as tolerated (500 mL over 1 - 2 hr) or (250 mL over 30 - 60 min), as blood volume approaches normal then infusion rate should not exceed 1 mL/min. Infusing too rapidly may cause vascular overload which may lead to pulmonary edema or cardiac failure. ROUTINE REPLACEMENT: (non-critical) Infuse 5% or 25% Albumin @ 100 mL/hr for routine albumin replacement in non-critical situations. Faster infusion rates are appropriate for hypovolemic shock (see above). ADMINISTRATION NOTE: A 15-micron filter is only required for Buminate; however, filters are NOT required for all other brands (Albuked, Albuminar, Albuminex, AlbuRx, Albutein, Flexbumin, Kedbumin, Plasbumin). Do not exceed 4 mL/minute in patients with normal plasma volume; 10 mL/minute in patients with hypoproteinemia., Indications: hypoalbuminemia, hypovolemic shockIndications:hypoalbuminemia,h ypovolemic shock New Bag 02/18/2024 8:13 AM EST 25 g budesonide (PULMICORT) 1 mg/2 mL nebulizer solution 1 mg 1 mg, nebulization, Daily, First dose on Fri02/18/24 at 0800, Rinse mouth with water after use to reduce aftertaste and incidence of candidiasis. Do not swallow. Therapeutic substitution for ADVAIR DISKUS 500/50 is budesonide neb daily and formoterol neb twice daily. Given 02/18/2024 8:30 AM EST 1 mg dextrose 5 % and sodium chloride 0.9 % bolus 500 mL 500 mL, intravenous, Once, On Fri03/01/24 at 1200, For 1 dose New Bag 03/01/2024 11:49 AM EST 500 mL dextrose 5 % and sodium chloride 0.9 % infusion 75 mL/hr, intravenous, Continuous, Starting on Fri03/01/24 at 1700, For 10 hours New Bag 03/01/2024 5:12 PM EST 75 mL/hr 75 mL/hr dextrose 5 % infusion 75 mL/hr, intravenous, Continuous, Starting on Fri02/18/24 at 0745, For 10 hours New Bag 02/18/2024 8:44 AM EST 75 mL/hr 75 mL/hr ferrous sulfate tablet 325 mg 325 mg, oral, Daily, First dose on Fri02/18/24 at 0900, Take on an empty stomach with a full glass of water, at least 1 hour before or 2 hours after a meal. May be taken with food if causes an upset stomach. Avoid taking antacids or antibiotics within 2 hours before or after. Ordered as ferrous sulfate. 325 mg ferrous sulfate = 65 mg elemental iron. Given 02/29/2024 8:27 AM EST 325 mg Given 02/28/2024 8:39 AM EST 325 mg Given 02/27/2024 9:08 AM EST 325 mg fludrocortisone (FLORINEF) tablet 0.1 mg 0.1 mg, oral, Daily, First dose on Fri02/18/24 at 0900 Given 03/06/2024 8:44 AM EST 0.1 mg Given 03/05/2024 9:29 AM EST 0.1 mg Given 03/04/2024 9:01 AM EST 0.1 mg folic acid (FOLVITE) tablet 1,000 mcg 1,000 mcg, oral, Daily, First dose on Fri02/18/24 at 0900 Given 03/06/2024 8:43 AM EST 1,000 mcg Given 03/05/2024 9:29 AM EST 1,000 mcg Given 03/04/2024 9:01 AM EST 1,000 mcg formoterol (PERFOROMIST) 20 mcg/2 mL nebulizer solution 20 mcg 20 mcg, nebulization, 2 times daily, First dose on Fri02/17/24 at 2102, Therapeutic substitution for ADVAIR DISKUS 500/50 is budesonide neb daily and formoterol neb twice daily. Given 02/18/2024 8:08 PM EST 20 mcg Given 02/18/2024 8:30 AM EST 20 mcg hydrocortisone sod succ (PF) (SOLU-CORTEF) injection 50 mg 50 mg, intravenous, Every 8 hours, First dose on Fri02/18/24 at 0645 Given 02/21/2024 6:28 AM EST 50 mg Given 02/20/2024 9:47 PM EST 50 mg Given 02/20/2024 2:44 PM EST 50 mg iopamidoL (ISOVUE-370) 370 mg iodine /mL (76 %) injection 100 mL 100 mL, intravenous, Once in imaging, Starting on Fri02/17/24 at 1650, For 1 dose Given 02/17/2024 4:51 PM EST 90 mL lactated Ringer's infusion 75 mL/hr, intravenous, Continuous, Starting on Fri02/24/24 at 0830, For 10 hours New Bag 02/24/2024 3:21 PM EST 75 mL/hr 75 mL/hr New Bag 02/24/2024 10:16 AM EST 75 mL/hr 75 mL/hr LORazepam (ATIVAN) tablet 0.5 mg 0.5 mg, oral, 2 times daily PRN, anxiety, Starting on Fri02/17/24 at 2056 Given 02/29/2024 2:20 AM EST 0.5 mg Given 02/26/2024 9:53 PM EST 0.5 mg Given 02/24/2024 9:09 PM EST 0.5 mg magnesium oxide (MAG-OX) tablet 400 mg 400 mg, oral, Daily, First dose on Fri02/25/24 at 0915 Given 02/26/2024 8:38 AM EST 400 mg Given 02/25/2024 10:30 AM EST 400 mg magnesium oxide (MAG-OX) tablet 400 mg 400 mg, oral, 2 times daily, First dose (after last modification) on Fri02/26/24 at 2100 Given 03/06/2024 8:44 AM EST 400 mg Given 03/05/2024 9:07 PM EST 400 mg Given 03/05/2024 9:29 AM EST 400 mg magnesium sulfate 2 gram/50 mL (4 %) IVPB 2 g 2 g, intravenous, at 25 mL/hr, Administer over 2 Hours, Every 2 hours, First dose on Fri02/23/24 at 1200, For 2 doses New Bag 02/23/2024 1:53 PM EST 2 g 25 mL/hr New Bag 02/23/2024 11:52 AM EST 2 g 25 mL/hr magnesium sulfate 2 gram/50 mL (4 %) IVPB 2 g 2 g, intravenous, at 25 mL/hr, Administer over 2 Hours, Every 2 hours, First dose on Fri02/27/24 at 0915, For 2 doses New 02/27/2024 10:33 AM EST 2 g 25 mL/hr New 02/27/2024 10:32 AM EST 2 g 25 mL/hr melatonin tablet 6 mg 6 mg, oral, Nightly PRN, sleep, Starting on Fri02/17/24 at 2057 Given 03/02/2024 8:54 PM EST 6 mg Given 03/01/2024 9:02 PM EST 6 mg Given 02/29/2024 2:20 AM EST 6 mg metroNIDAZOLE (METROGEL) 0.75 % gel Topical, 2 times daily, First dose on Fri02/27/24 at 2100, Apply to perineum. Given 03/06/2024 8:48 AM EST Given 03/05/2024 9:30 AM EST Given 03/04/2024 9:38 PM EST midodrine (PROAMATINE) tablet 10 mg 10 mg, oral, 3 times daily before meals, First dose (after last modification) on Fri02/18/24 at 0730 Given 02/20/2024 6:43 AM EST 10 mg Given 02/19/2024 4:08 PM EST 10 mg Given 02/19/2024 11:34 AM EST 10 mg midodrine (PROAMATINE) tablet 5 mg 5 mg, oral, 3 times daily before meals, First dose (after last modification) on Fri02/20/24 at 1130, Hold if BP >110 Given 03/06/2024 11:20 AM EST 5 mg Given 03/06/2024 8:44 AM EST 5 mg Given 03/05/2024 4:56 PM EST 5 mg morphine injection 4 mg 4 mg, intravenous, Once, On Fri02/17/24 at 1502, For 1 dose Given 02/17/2024 3:35 PM EST 4 mg morphine injection 4 mg 4 mg, intravenous, Once, On Fri02/17/24 at 1839, For 1 dose Given 02/17/2024 6:46 PM EST 4 mg multivitamin tablet 1 tablet 1 tablet (1 each), oral, Daily, First dose on Fri02/26/24 at 1700 Given 03/06/2024 8:44 AM EST 1 tablet Given 03/05/2024 9:30 AM EST 1 tablet Given 03/04/2024 9:01 AM EST 1 tablet nicotine (NICODERM CQ) 14 mg/24 hr patch 1 patch 1 patch, transdermal, Administer over 24 Hours, Daily, First dose on Fri02/19/24 at 1900 Patch Applied 03/06/2024 8:44 AM EST 1 patch Ri ght Arm Patch Applied 03/05/2024 9:30 AM EST 1 patch Left Arm Patch Applied 03/04/2024 9:01 AM EST 1 patch Left Arm ondansetron (PF) (ZOFRAN) injection 4 mg 4 mg, intravenous, Once, On Fri02/17/24 at 1502, For 1 dose Given 02/17/2024 3:31 PM EST 4 mg oxyCODONE (OxyCONTIN) 12 hr abuse-deterrent tablet 30 mg 30 mg, oral, Every 12 hours, First dose on Fri02/17/24 at 2102, Do not crush, chew, or split. Given 03/06/2024 8:4 3 AM EST 30 mg Given 03/05/2024 9:09 PM EST 30 mg Given 03/05/2024 9:30 AM EST 30 mg oxyCODONE (ROXICODONE) immediate release tablet 5 mg 5 mg, oral, Every 4 hours PRN, severe pain, moderate pain, Starting on Fri02/17/24 at 2057 Given 02/20/2024 11: 06 AM EST 5 mg Given 02/20/2024 6:44 AM EST 5 mg Given 02/20/2024 12:11 AM EST 5 mg oxyCODONE (ROXICODONE) immediate release tablet 5 mg 5 mg, oral, 3 times daily PRN, severe pain, moderate pain, Starting on 02/20/24 at 1314 Given 02/21/2024 12 :17 PM EST 5 mg Given 02/21/2024 3:19 AM EST 5 mg Given 02/20/2024 9:48 PM EST 5 mg oxyCODONE (ROXICODONE) immediate release tablet 5 mg 5 mg, oral, Every 4 hours PRN, severe pain, moderate pain, Starting on 02/21/24 at 1608 Given 03/06/2024 11 :20 AM EST 5 mg Given 03/05/2024 9:14 PM EST 5 mg Given 03/05/2024 4:56 PM EST 5 mg polyethylene glycol (MIRALAX) packet 17 g 17 g, oral, Daily, First dose on [place] 02/19/24 at 1815 Given 02/28/2024 8:40 AM EST 17 g Given 02/27/2024 9:09 AM EST 17 g Given 02/20/2024 8:07 AM EST 17 g potassium chloride (KLOR-CON M20) CR tablet 40 mEq 40 mEq, oral, Once, On Fri02/23/24 at 0900, For 1 dose, Tablet may be swallowed whole (do not crush/chew/suck on) OR broken in half and each half swallowed separately OR dissolved (whole tablet) in ~4 ounces of water (allow ~2 minutes to dissolve, stir well and administer immediately). Given 02/23/2024 9:07 AM EST 40 mEq potassium chloride (KLOR-CON M20) CR tablet 40 mEq 40 mEq, oral, Once, On Fri02/23/24 at 1100, For 1 dose, Tablet may be swallowed whole (do not crush/chew/suck on) OR broken in half and each half swallowed separately OR dissolved (whole tablet) in ~4 ounces of water (allow ~2 minutes to dissolve, stir well and administer immediately). Given 02/23/2024 11:15 AM EST 40 mEq potassium chloride (KLOR-CON M20) CR tablet 40 mEq 40 mEq, oral, Once, On Fri02/24/24 at 0830, For 1 dose, Tablet may be swallowed whole (do not crush/chew/suck on) OR broken in half and each half swallowed separately OR dissolved (whole tablet) in ~4 ounces of water (allow ~2 minutes to dissolve, stir well and administer immediately). Given 02/24/2024 9:58 AM EST 40 mEq potassium chloride (KLOR-CON M20) CR tablet 40 mEq 40 mEq, oral, Once, On Fri02/24/24 at 1100, For 1 dose, Tablet may be swallowed whole (do not crush/chew/suck on) OR broken in half and each half swallowed separately OR dissolved (whole tablet) in ~4 ounces of water (allow ~2 minutes to dissolve, stir well and administer immediately). Given 02/24/2024 11:44 AM EST 40 mEq potassium chloride (KLOR-CON M20) CR tablet 40 mEq 40 mEq, oral, Once, On Fri02/25/24 at 0915, For 1 dose, Tablet may be swallowed whole (do not crush/chew/suck on) OR broken in half and each half swallowed separately OR dissolved (whole tablet) in ~4 ounces of water (allow ~2 minutes to dissolve, stir well and administer immediately). Given 02/25/2024 10:30 AM EST 40 mEq potassium chloride (KLOR-CON M20) CR tablet 40 mEq 40 mEq, oral, Once, On Fri02/26/24 at 1500, For 1 dose, Tablet may be swallowed whole (do not crush/chew/suck on) OR broken in half and each half swallowed separately OR dissolved (whole tablet) in ~4 ounces of water (allow ~2 minutes to dissolve, stir well and administer immediately). Given 02/26/2024 3:44 PM EST 40 mEq potassium chloride (KLOR-CON M20) CR tablet 40 mEq 40 mEq, oral, 3 times daily, First dose (after last reorder) on Fri02/27/24 at 0915, For 3 doses, Tablet may be swallowed whole (do not crush/chew/suck on) OR broken in half and each half swallowed separately OR dissolved (whole tablet) in ~4 ounces of water (allow ~2 minutes to dissolve, stir well and administer immediately). Given 02/27/2024 9:50 PM EST 40 mEq Given 02/27/2024 3:06 PM EST 40 mEq Given 02/27/2024 10:32 AM EST 40 mEq risperiDONE (RisperDAL) tablet 1 mg 1 mg, oral, 2 times daily, First dose (after last modification) on Fri02/18/24 at 0900, 9 am and 2 pm, Indications: schizoaffective disorderIndications:schizoaffective disorder Given 03/06/2024 8:44 AM EST 1 mg Given 03/05/2024 9:31 AM EST 1 mg Given 03/04/2024 3:44 PM EST 1 mg risperiDONE (RisperDAL) tablet 4 mg 4 mg, oral, Nightly, First dose on Fri02/17/24 at 2102 Given 03/05/2024 9:07 PM EST 4 mg Given 03/04/2024 8:54 PM EST 4 mg Given 03/03/2024 8:57 PM EST 4 mg simethicone (MYLICON) chewable tablet 80 mg 80 mg, oral, 4 times daily PRN, flatulence, indigestion, Starting on Fri02/18/24 at 1532 Given 02/18/2024 4:45 PM EST 80 mg sodium chloride 0.9 % bolus 1,000 mL 1,000 mL, intravenous, at 1,000 mL/hr, Administer over 1 Hours, Once, On Fri02/17/24 at 1503, For 1 dose New Bag 02/17/2024 4:19 PM EST 1,000 mL 1000 mL/hr sodium chloride 0.9 % flush 10 mL 10 mL, intravenous, Once, On Fri02/17/24 at 1634, For 1 dose Given 02/17/2024 4:50 PM EST 10 mL sodium chloride 0.9 % flush 10 mL 10 mL, intravenous, Once, On Fri02/17/24 at 1651, For 1 dose Given 02/17/2024 5:19 PM EST 10 mL sodium chloride 0.9 % infusion 100 mL/hr, intravenous, Continuous, Starting on Fri02/17/24 at 2102 New Bag 02/17/2024 11:16 PM EST 100 mL/hr 100 mL/hr sodium chloride 0.9 % infusion 75 mL/hr, intravenous, Continuous, Starting on Fri02/19/24 at 0815 New Bag 02/24/2024 1:57 AM EST 75 mL/hr 75 mL/hr Restarted 02/23/2024 3:35 PM EST 75 mL/hr 75 mL/hr New Bag 02/23/2024 6:47 AM EST 75 mL/hr 75 mL/hr sodium chloride 0.9 % infusion 42 mL/hr, intravenous, As needed, pre-, and post- transfusion as needed for line flush purposes, in conjunction with blood product transfusion only, Starting on [place] 03/04/24 at 0913, -Use only the amount required from a 250 mL bag of NS to adequately flush -A new NS bag is required with each new unit of blood administered thiamine (VITAMIN B-1) tablet 100 mg 100 mg, oral, Daily, First dose on [place] 02/26/24 at 1700 Given 03/06/2024 8:44 AM EST 100 mg Given 03/05/2024 9:31 AM EST 100 mg Given 03/04/2024 9:02 AM EST 100 mg documented in this encounter Discontinued Medications Medication Sig Discontinue Reason Start Date End Da te docusate sodium (COLACE) 100 mg capsule Take 1 capsule (100 mg total) by mouth 2 times daily. Formulary change 05/29/2023 02/17/2024 magnesium hydroxide (MILK OF MAGNESIA) 400 mg/5 mL suspension Take 30 mL by mouth. Formulary change 11/08/2023 02/17/2024 nicotine (NICODERM CQ) 21 mg/[address] 1 patch on the skin 1 (one) time each day. Formulary change 10/07/2023 02/17/2024 prochlorperazine (COMPAZINE) 10 mg tabletIndications:can cer chemotherapy-induced nausea and vomiting Take 1 tablet (10 mg total) by mouth every 8 (eight) hours if needed for nausea or vomiting. Formulary change 02/17/2024 acetaminophen (TYLENOL) 325 mg tablet Take 2 tablets (650 mg total) by mouth every 6 (six) hours if needed for mild pain or fever - temperature GREATER than 38 C (100.4 F) for up to 10 days. Stop Taking at Discharge 02/10/2024 03/06/2024 amoxicillin-clavulana te (AUGMENTIN) 875-125 mg per tablet Take 1 tablet by mouth 2 (two) times a day for 5 days. Stop Taking at Discharge 02/10/2024 03/06/2024 doxycycline (VIBRAMYCIN) 100 mg capsule Take 1 capsule (100 mg total) by mouth 2 (two) times a day for 5 days. Take with at least 8 ounces (large glass) of water, do not lie down for 30 minutes after Stop Taking at Discharge 02/10/2024 03/06/2024 documented as of this encounter Active and Recently Administered Medications Times are shown in EST. Scheduled Medication Order 03/04/2024 03/05/2024 03/06/2024 ferrous sulfate tablet 325 mg 325 mg, oral, Daily, First dose on Fri02/18/24 at 0900, Take on an empty stomach with a full glass of water, at least 1 hour before or 2 hours after a meal. May be taken with food if causes an upset stomach. Avoid taking antacids or antibiotics within 2 hours before or after. Ordered as ferrous sulfate. 325 mg ferrous sulfate = 65 mg elemental iron. 0903 (Not Given - Provider: Cathleen Fitch RN - Reason: Patient/Resident/Ag ent refused - education provided ) 928 (Not Given - Provider: Naomi Cavanaugh RN - Reason: Patient/Resident/Ag ent refused - education provided ) 0844 (Not Given - Provider: Naomi Cavanaugh RN - Reason: Patient/Resident/Agent refused - education provided ) fludrocortisone (FLORINEF) tablet 0.1 mg 0.1 mg, oral, Daily, First dose on Fri02/18/24 at 0900 0852 (Unheld by provider - Provider: Al Gan MD)09 (Given - Provider: Cathleen Fithc RN) 09 (Given - Provider: Naomi Cavanaugh RN) 0844 (Given - Provider: Naomi Cavanaugh RN) folic acid (FOLVITE) tablet 1,000 mcg 1,000 mcg, oral, Daily, First dose on Fri02/18/24 at 0900 0901 (Given - Provider: Cathleen Fitch RN) 09 (Given - Provider: Naomi Cavanaugh RN) 0843 (Given - Provider: Naomi Cavanaugh RN) magnesium oxide (MAG-OX) tablet 400 mg 400 mg, oral, 2 times daily, First dose (after last modification) on [place] 02/26/24 at 2100 0901 (Given - Provider: Cathleen Fitch RN)2053 (Given - Provider: Karin Coello RN) 0929 (Given - Provider: Naomi Cavanaugh RN)2107 (Given - Provider: Karin Coello RN) 0844 (Given - Provider: Naomi Cavanaugh RN) metroNIDAZOLE (METROGEL) 0.75 % gel Topical, 2 times daily, First dose on Fri02/27/24 at 2100, Apply to perineum. 0903 (Given - Provider: Cathleen Fitch RN)8 (Given - Provider: Karin Coello RN) 0930 (Given - Provider: Naomi Cavanaugh RN)0 (Not Given - Provider: Karin Coello RN - Reason: Patient/Resident/Ag ent refused - education provided ) 0848 (Given - Provider: Naomi Cavanaugh RN) midodrine (PROAMATINE) tablet 5 mg 5 mg, oral, 3 times daily before meals, First dose (after last modification) on Fri02/20/24 at 1130, Hold if BP >110 0902 (Given - Provider: Cathleen Fitch RN)1153 (Given - Provider: Cathleen Fitch RN)1544 (Given - Provider: Cathleen Fitch RN) 0930 (Given - Provider: Naomi Cavanaugh RN)1141 (Given - Provider: Naomi Cavanaugh RN)1656 (Given - Provider: Naomi Cavanaugh RN) 0844 (Given - Provider: Naomi Cavanaugh RN)1120 (Given - Provider: Naomi Cavanaugh RN) multivitamin tablet 1 tablet 1 tablet (1 each), oral, Daily, First dose on Fri02/26/24 at 1700 0901 (Given - Provider: Cathleen Fitch RN) 0930 (Given - Provider: Naomi Cavanaugh RN) 0844 (Given - Provider: Naomi Cavanaugh RN) nicotine (NICODERM CQ) 14 mg/24 hr patch 1 patch 1 patch, transdermal, Administer over 24 Hours, Daily, First dose on Fri02/19/24 at 1900 0901 (Patch Applied - Provider: Cathleen Fitch RN) 0929 (Patch Removed - Provider: Naomi Cavanaugh RN)0930 (Patch Applied - Provider: Naomi Cavanaugh RN) 0843 (Patch Removed - Provider: Naomi Cavanaugh RN)0844 (Patch Applied - Provider: Naomi Cavanaugh RN)1320 (Due: Patch Removed - Provider: Automatic Discharge Provider - Comment: Time automatically adjusted from order being discontinued) oxyCODONE (OxyCONTIN) 12 hr abuse-deterrent tablet 30 mg 30 mg, oral, Every 12 hours, First dose on Fri02/17/24 at 2102, Do not crush, chew, or split. 0902 (Given - Provider: Cathleen Fitch RN)2053 (Given - Provider: Karin Coello RN) 0930 (Given - Provider: Naomi Cavanaugh RN)2109 (Given - Provider: Karin Coello RN) 0843 (Given - Provider: Naomi Cavanaugh RN) polyethylene glycol (MIRALAX) packet 17 g 17 g, oral, Daily, First dose on Fri02/19/24 at 1815 0902 (Not Given - Provider: Cathleen Fitch RN - Reason: Patient/Resident/Ag ent refused - education provided ) 0929 (Not Given - Provider: Naomi Cavanaugh RN - Reason: Patient/Resident/Ag ent refused - education provided ) 0844 (Not Given - Provider: Naomi Cavanaugh RN - Reason: Patient/Resident/Agent refused - education provided ) risperiDONE (RisperDAL) tablet 1 mg 1 mg, oral, 2 times daily, First dose (after last modification) on Fri02/18/24 at 0900, 9 am and 2 pm, Indications: schizoaffective disorder 0901 (Given - Provider: Cathleen Fitch RN)1544 (Given - Provider: Cathleen Fitch RN) 0931 (Given - Provider: Naomi Cavanaugh RN)1311 (Not Given - Provider: Naomi Cavanaugh RN - Reason: Patient/Resident/Ag ent refused - education provided ) 0844 (Given - Provider: Naomi Cavanaugh RN)1400 (Canceled Entry - Provider: Automatic Discharge Provider - Comment: Automatically canceled at discontinue of medication order) risperiDONE (RisperDAL) tablet 4 mg 4 mg, oral, Nightly, First dose on Fri02/17/24 at 2102 2053 (Given - Provider: Karin Coello RN) 2106 (Given - Provider: Karin Coello RN) thiamine (VITAMIN B-1) tablet 100 mg 100 mg, oral, Daily, First dose on Fri02/26/24 at 1700 0902 (Given - Provider: Cathleen Fitch RN) 0931 (Given - Provider: Naomi Cavanaugh, CHELI) 0844 (Given - Provider: Naomi Cavanaugh RN) PRN Medication Order 03/04/2024 03/05/2024 03/06/2024 LORazepam (ATIVAN) tablet 0.5 mg 0.5 mg, oral, 2 times daily PRN, anxiety, Starting on Fri02/17/24 at 2055 melatonin tablet 6 mg 6 mg, oral, Nightly PRN, sleep, Starting on Fri02/17/24 at 2056 ondansetron ODT (ZOFRAN-ODT) disintegrating tablet 4 mg 4 mg, oral, Every 8 hours PRN, nausea, vomiting, Starting on Fri02/17/24 at 2056 oxyCODONE (ROXICODONE) immediate release tablet 5 mg 5 mg, oral, Every 4 hours PRN, severe pain, moderate pain, Starting on Fri02/21/24 at 1608 0519 (Given - Provider: Shannon Ram RN)1153 (Given - Provider: Cathleen Fitch RN)1543 (Given - Provider: Cathleen Fitch RN)2054 (Given - Provider: Karin Coello RN) 1308 (Given - Provider: Naomi Cavanaugh, CHELI)1656 (Given - Provider: Naomi Cavanaugh, CHELI)2113 (Given - Provider: Karin Coello RN) 1120 (Given - Provider: Naomi Cavanaugh RN) simethicone (MYLICON) chewable tablet 80 mg 80 mg, oral, 4 times daily PRN, flatulence, indigestion, Starting on Fri02/18/24 at 1532 sodium chloride 0.9 % infusion 42 mL/hr, intravenous, As needed, pre-, and post- transfusion as needed for line flush purposes, in conjunction with blood product transfusion only, Starting on [place] 03/04/24 at 0913, -Use only the amount required from a 250 mL bag of NS to adequately flush -A new NS bag is required with each new unit of blood administered documented in this encounter Orders Medications Ordered That [place] ht Not Have Been Administered Count Last Ordered Date First Ordered Date sodium chloride 0.9 % infusion 1 03/04/2024 albumin human 5 % infusion 25 g 2 dextrose 5 % infusion 1 02/18/2024 hydrocortisone 1 % topical cream 1 02/16/19 iopamidoL (ISOVUE-370) 370 m g iodine /mL (76 %) injection 100 mL 1 02/17/2024 midodrine (PROAMATINE) tablet 5 mg 1 2024 ondansetron ODT (ZOFRAN-ODT) disintegrating tablet 4 mg 1 02/17/2024 risperiDONE (RisperDAL) tablet 1 mg 1 02/16 General Supply Count Last Ordered Date First Or dered Date WHEELCHAIR 1 03/06/2024 Diet Count Last Ordered Date First Orde red Date ADULT DISCHARGE DIET 1 03/03/2024 Nursing Count Last Ordered Date First Orde red Date ACTIVITY 1 03/03/2024 NOTIFY PROVIDER - INDICATE REASON 1 025 INSERT INDWELLING CATHETER 1 02/17/2024 Consult Count Last Ordered Date First Orde red Date IP CONSULT TO NUTRITION SERVICES 1 03/02/19 25 WOUND OSTOMY EVAL AND TREAT 1 02/26/2024 IP CONSULT TO ONCOLOGY 1 02/20/2024 IV Count Last Ordered Date First Orde red Date INSERT PERIPHERAL IV 1 02/17/2024 Admission Count Last Ordered Date First Orde red Date ADMIT TO INPATIENT 1 02/17/2024 Transfer Count Last Ordered Date First Orde red Date TRANSFER PATIENT TO NEW UNIT 2 02/22/2024 02/18/2024 ED TO FLOOR BED REQUEST 1 02/17/2024 Discharge Count Last Ordered Date First Orde red Date DISCHARGE PATIENT 1 03/06/2024 documented in this encounter Additional Health Concerns Infection Onset Date Last Indicated Resolved Time Respiratory Rule-Out 02/17/2024 02/17/2024 025 5:42 PM EST documented as of this encounter Care Teams [employer] Scarfer Tender Relationship Specialty Start Date End Date Sneha Li MD [address] [address] PCP - General 01/23/23 documented as of this encounter
--- OUTSIDE RECORDS SUMMARY | 2024-04-01 16:43 | XMS_ITS | Encounter Summary ---
Author Organization [employer] Address [address] [place] [address] Care Team Providers Care Control Center Operator Name Role Phone Sneha Li MD Primary Care Provider [phone] Reason for Visit * Reason Onset Date Comments [employer] 03/24/2024 I ncontinence Procare, underpad Encounter Details Date Type Department Care Team (Late st Contact Info) Description 03/24/2024 Telephone [facility] MEDICINE [address] [place], [place] [id number] Sneha Li MD [address] [place], [place] [phone] [employer] (Incontinence Procare, underpad) Social History Tobacco Use Types Packs/Day Years [...] encounter Miscellaneous Notes * Telephone Encounter - Manuel Hilliard MA - 03/24/2024 10:18 AM EST Received medical necessity form from [employer] [place] for Incontinence Procare, underpad. Form has been filled out and placed on PCP's desk fro their signature. documented in this encounter Plan of Treatment Not on file documented as of this encounter Visit Diagnoses Not on filedocumented in this encounter Additional Health Concerns Assessment Noted Time PHQ-9 Depression Total Score: 4 10/08/19 9:22 AM EDT documented as of this encounter Care Teams Control Center Operator Relationship Specialty Start Date End Date Sneha Li MD [address] [place] [id number] PCP - General Family Medicine 10/02/18 Dr. Lalito Miller MD [address] [address] Gynecologic Oncology 12/31/23 Dr. Samina Diaz [facility] Radiation Oncology 12/04/23 Dr. Pamela Medrano DO, Oncology 11/26/23 [facility] 11/20/23 documented as of this encounter
--- OUTSIDE RECORDS SUMMARY | 2024-04-01 16:43 | XMS_ITS | Data Portability ---
Author Organization [employer] Address [address] [place] [address] Care Team Providers Care Ethnology Teacher Name Role Phone HIM CCA OTHER [facility] Referring Provider Assessment No assessment recorded. Plan of Treatment Reminders Order Date Submit Date Provider Last Modified By Organization Details Last Modified Time Details Appointments None record ed. Lab None record ed. Referral None record ed. Procedures None record ed. Surgeries None record ed. Imaging None record ed. Medication Orders None record ed. Patient TargetsNo targets recorded. Patient InstructionsNo instructions recorded. Reason for Referral None Reported. Medical Equipment None Reported. Medications Name Sig Start Date Stop Date Status Note LastModified by Organization Details LastModified Time nicotine 14 mg/[address] patch [address] 1 PATCH ON THE SKIN 1 TIME EACH DAY AT THE SAME TIME. active Not Available Not Available N ot Available ammonium lactate 12 % lotion APPLY TO SOLES OF FEET AT NIGHT. WEAR SOCKS TO BED. active Not Available Not Available No t Available ibuprofen 800 mg tablet TAKE 1 TABLET BY MOUTH TWICE A DAY WITH FOOD NEEDED active Not Available Not Available No t Available risperidone 4 mg tablet TAKE 1 TABLET BY MOUTH EVERYDAY AT BEDTIME active Not Available Not Available No t Available hydrocodone 5 mg-acetamino phen 325 mg tablet TAKE 1-2 TABLET BY MOUTH EVERY 6 HOURS NEEDED FOR PAIN active Not Available Not Available No t Available prednisone 20 mg tablet TAKE 2 TABLETS BY MOUTH EVERY DAY FOR 5 DAYS active Not Available Not Available No t Available Milk of Magnesia 400 mg/5 mL oral suspension 30 ML ORALLY DAILY NEEDED FOR CONSTIPATIO N active Not Available Not Available No t Available hydroxyzine pamoate 50 mg capsule NEEDED TAKE 1 CAPSULE BY MOUTH EVERY 4 HOURS NEEDED MODERATE TO SEVERE ANXIETY active Not Available Not Available No t Available melatonin 3 mg tablet TAKE 2 TABLETS BY MOUTH AT BEDTIME NEEDED FOR INSOMNIA active Not Available Not Available No t Available acetaminophe n 500 mg tablet TAKE 1 TO 2 TABLETS BY MOUTH EVERY 8-12 HOURS NEEDED active Not Available Not Available No t Available hydrocortiso ne acetate 25 mg rectal suppository INSERT 1 SUPPOSITORY TWICE A DAY BY RECTAL ROUTE FOR 14 DAYS, FOR HEMORRHOIDS . active Not Available Not Available No t Available ciclopirox 8 % topical solution APPLY DAILY TO NAILS. CLEAN MEDICATION RESIDUE OFF OF NAIL PLATE EVERY 3 DAYS WITH RUBBING ALCOHOL active Not Available Not Available No t Available hydrocortiso ne 2.5 % topical cream with perineal applicator 1 APPL RECTALLY DAILY active Not Available Not Available No t Available lorazepam 0.5 mg tablet TAKE 1 TABLET BY MOUTH TWICE A DAY NEEDED active Not Available Not Available No t Available ascorbic acid (vitamin C) 250 mg chewable tablet CHEW 1 TABLET BY MOUTH TWICE A DAY active Not Available Not Available No t Available ferrous sulfate 325 mg (65 mg iron) tablet TAKE 1 TABLET BY MOUTH TWICE A DAY active Not Available Not Available No t Available nicotine 21 mg/[address] daily transdermal patch PLACE 1 PATCH ON THE SKIN 1 TIME EACH DAY AT THE SAME TIME. active Not Available Not Available N ot Available docusate sodium 100 mg capsule TAKE 1 CAPSULE BY MOUTH 2 TIMES A DAY active Not Available Not Available Not Available omeprazole 20 mg capsule,boyd yed release TAKE 1 CAPSULE BY MOUTH EVERY DAY BEFORE A MEAL NEEDED active Not Available Not Available No t Available folic acid 1 mg tablet TAKE 1 TABLET BY MOUTH EVERY DAY active Not Available Not Available No t Available ergocalcifer ol (vitamin D2) 1,250 mcg (50,000 unit) capsule TAKE 1 CAPSULE BY MOUTH ONE TIME PER WEEK active Not Available Not Available No t Available albuterol sulfate HFA 90 mcg/actuatio n aerosol inhaler INHALE 2 PUFFS EVERY 6 HOURS IF NEEDED FOR WHEEZING. active Not Available Not Available No t Available clotrimazole 1 % topical cream APPLY TO SKIN ONCE DAILY FOR 6 WEEKS active Not Available Not Available No t Available risperidone 1 mg tablet TAKE 1 TABLET BY MOUTH TWICE A DAY active Not Available Not Available No t Available amoxicillin 875 mg-potassium clavulanate 125 mg tablet TAKE 1 TABLET BY MOUTH TWICE A DAY active Not Available Not Available No t Available nicotine 7 mg/[address] daily transdermal patch PLACE 1 PATCH ON THE SKIN 1 TIME EACH DAY AT THE SAME TIME. active Not Available Not Available N ot Available oxycodone 5 mg tablet TAKE 1 TABLET BY MOUTH EVERY 4 HOURS NEEDED FOR MODERATE PAIN active Not Available Not Available No t Available mirtazapine 7.5 mg tablet TAKE 1 TABLET BY MOUTH AT BEDTIME NEEDED active Not Available Not Available No t Available nitrofuranto in monohydrate/ macrocrystal s 100 mg capsule TAKE 1 CAPSULE BY MOUTH TWICE A DAY active Not Available Not Available No t Available duloxetine 30 mg capsule,boyd yed release TAKE 1 CAPSULE BY MOUTH EVERY DAY IN THE MORNING active Not Available Not Available No t Available oxycodone 10 mg tablet TAKE 1 TABLET BY MOUTH EVERY 4 HOURS NEEDED FOR PAIN (SCALE SCORE 7-10) active Not Available Not Available Not Available Gavilax 17 gram/dose oral powder 17 G ORALLY DAILY NEEDED FOR CONSITPATIO N active Not Available Not Available No t Available OxyContin 10 mg tablet,crush resistant,ex tended release TAKE 2 TABLETS BY MOUTH 2 TIMES PER DAY active Not Available Not Available No t Available Wixela Inhub 500 mcg-50 mcg/dose powder for inhalation INHALE 1 PUFF BY MOUTH 2 TIMES DAILY. DISCONTINUE FLOVENT active Not Available Not Available No t Available Vitals Date Recorded Heart rate Oxygen saturation Oxygen saturation in Arterial blood by Pulse oximetry Body temperature Respiratory rate Systolic blood pressure Diastolic blood pressure Provider Name and Address Organization Details Last Updated DateTime 4 92 /min 94 % 94 % 98.5 [degF] 18 /min 101 mm[Hg] 70 mm[Hg] Not Available [facility] - production 4 18:21:57 Social History None recorded. Functional Status None recorded. Mental Status None recorded. Family History Nothing Reported. Medical History No medical history recorded. Gynecological HistoryNo gynecological history recorded. Obstetrics History GPAL:G 0 P 0 0 0 0 Past Encounters Encounter ID Performer Location Encounter Start Date Encounter Closed Date Diagnosis/Indication Diagnosis SNOMED-CT Code Diagnosis ICD10 Code Diagnosis Note [id number] Buffy Youssef MD [facility] - [facility] [address] [place] [phone] 11/18/2023 18:21:55 11/18/2023 23:33:25 Retention of urine [id number] R33.9 As noted, we were called to see this patient regarding concerns of complicati ons of urinary catheter. Evaluation in the field was performed by my electronic lab technician colleague, as noted above, I provided real-time direction and supervisio n for this visit. The evaluation revealed 52 yo woman, discharged recently after colostomy with new urinary retention requiring catheter. She tugged the catheter by accident earlier today and has some pain at the top of urethra. She still has clear yellow urine draining without issue and no blood. Impression :non displaceme nt of catheter Plan:jovanni nue to monitor; tylenol prn. no indication given pain is internal and good drainage to change catheter or provide lidocaine jelly.She has good follow up with PCP planned. Dispositio n: We discussed the diagnostic uncertaint y of home visits and the risk associated with this. In this case, the patient and I felt this to be an acceptable and reasonable amount of risk given the benefit of avoiding an ED visit. We discussed the need to seek care urgently/e mergently in the setting of any new or worsening serious symptoms, particular ly changes to consciousn ess, chest pain, dyspnea or changes to urination. Health Concerns Section Related Observation LastModified by Organization Detai ls LastModified Time None Recorded Concern Status LastModified by Organization Details LastModified Time None Recorded Advance Directives Directive None Recorded Payers Encounter Date Sequence Insurance Name Policy Number Policy Noonan Covered Member ID Noonan Member ID Guarantor Name 11/18/2023 1 [facility] - DOS ON OR AFTER 2022 - DUAL ELIGIBLE - [employer] AND ONE [employer] (MEDICARE REPLACEMENT/ADV ANTAGE - HMO) Yanna Power [id number] Yanna Power Notes Date Note Type Note Provider Name and Address Organization Details Recorded Time 11/18/2023 text/html HPI: Patient recently inpatient (discharged on 11/16) due to possible bowel obstruction secondary to metastatic anal malignancy and underwent surgery for diverting colostomy. She was discharged home with rocha cathether as well as colostomy, today reports having tugged on bag while getting into the car and now reports new pain (unrelated to surgery) and burning sensation. Pt is ASL speaking, is with sister who reports medium yellow urine in bag, reports bag is draining, denies blood. .................. .................. .................. .................. .................. .................. .................. ............... [facility] Nurse Triage Notes (Benji Lechuga): Chief Complaints: Equipment-Related, Pain PMH: Cancer Comments: HPI reviewed by this RN, no further information needed to process visit -Alessia Lechuga RN .................. .................. .................. .................. .................. .................. .................. ............... Appeals Board Referee Note From Nunu Aponte: Sent to a call for a pt complaining of burning pain after her rocha catheter was pulled on today. SC8 arrives on scene, pt is alert and oriented, airway is patent. Pt is deaf and uses ASL and pt's sister serves as marketing data specialist. Pt was hospitalized from 11/10-11/16, had a colostomy bag placed, and also a rocha cath due to urine retention. Pt states she accidentally pulled on rocha cath line this morning while getting in the car on the way to an appt. Pt reports burning pain in bladder/upper urethra. Pt also complains of abd pain/dark stool (both symptoms present while in hospital due to cancer/surgery/iro n supplement)Pt denies gutierrez, dizziness, cp, sob, n/v/ hematuria, fever, or loc. Pt's catheter is draining normally, pt has normal urinary output and urine looks yellow, clear, and diluted; Pt has f/u appt with PCP tomorrow and Oncology appt on Fri. BP:101/70, P:92, RR:18, SpO2:94% RA, T:98.5; Head: unremarkable; Lung sounds: clear bilaterally; Abdomen: colostomy present w/incision covered; Genito/urinary: slight erythema at site of urethra (probably due to catheter movement) Extremities: unremarkable; Skin: pink, warm, dry; [facility] consulted and no orders are given. Pt advised to f/u with PCP and Oncology. Pt advised to monitor for UTI symptoms and contact [facility] if needed. Red flags discussed. Pt has no further questions. .................. .................. .................. .................. .................. .................. .................. ............... Disposition: Fulfilled Buffy Youssef MD [address] [facility],[address], [place], [address], [employer] - [employer] 11/18/2023 19:22:05 OBGyn Episode No OBEpisode recorded.
--- OUTSIDE RECORDS SUMMARY | 2024-04-01 16:44 | XMS_ITS | Encounter Summary ---
Author Organization [employer] Address [address] [facility] 7t [place] [address] Care Team Providers Care Engine Mechanic Name Role Phone Sneha Li MD Primary Care Provider +1- [phone] Reason for Visit * Reason Comments Med Refill Encounter Details Date Type Department Care Team ([facility] st Contact Info) Description 01/28/2023 Refill [facility] [address] [place], [place] [phone] Sneha Li MD [address] [place], [place] [phone] Wheeze Social History Tobacco Use Types Packs/Day Years [...] as of this encounter Visit Diagnoses Diagnosis Wheeze Wheezing documented in this encounter Care Teams Engine Mechanic Relationship Specialty Start Date End Date Sneha Li MD [address] [place] [address] PCP - General Family Medicine 10/02/18 Dr. Lalito Miller MD [address] [address] Gynecologic Oncology 12/31/23 Dr. Samina Diaz [facility] Radiation Oncology 12/04/23 Dr. Pamela Medrano DO, Oncology 11/26/23 [facility] 11/20/23 documented as of this encounter
--- OUTSIDE RECORDS SUMMARY | 2024-04-01 16:44 | XMS_ITS | Encounter Summary ---
Author Organization [employer] Address [address] [facility] 7[address] [place] [address] Care Team Providers Care Railway Equipment Operator Name Role Phone Sneha Li MD Primary Care Provider +1- [phone] Encounter Details Date Type Department Care Team ([facility] st Contact Info) Description 01/30/2024 Orders Only [facility] MED[facility]INE [address] [place] [address] Sneha Li MD 230 [place], [place] [phone] Metastatic squamous cell carcinoma involving anus with [...] documented as of this encounter Care Teams Railway Equipment Operator Relationship Specialty Start Date End Date Sneha Li MD [address] [place] [address] PCP - General Family Medicine 10/02/18 Dr. Lalito Miller MD [address] [address] Gynecologic Oncology 12/31/23 Dr. Samina Diaz [facility] Radiation Oncology 12/04/23 Dr. Pamela Medrano DO, Oncology 11/26/23 [facility] 11/20/23 documented as of this encounter
--- OUTSIDE RECORDS SUMMARY | 2024-04-01 16:44 | XMS_ITS | Encounter Summary ---
Author Organization [employer] Address [address] [facility] 7t [place] [address] Care Team Providers Care Buttonhole Tacker Name Role Phone Sneha Li MD Primary Care Provider +1- [phone] Encounter Details Date Type Department Care Team (Late st Contact Info) Description 10/24/2023 Orders Only [facility] [address] [place], [place] [phone] Sneha Li MD 230 [place], [place] [phone] Social History Tobacco Use Types Packs/Day Years [...] documented as of this encounter Care Teams Buttonhole Tacker Relationship Specialty Start Date End Date Sneha Li MD [address] [place] [address] PCP - General Family Medicine 10/02/18 Dr. Lalito Miller MD [address] [address] Gynecologic Oncology 12/31/23 Dr. Samina Diaz [facility] Radiation Oncology 12/04/23 Dr. Pamela Medrano DO, Oncology 11/26/23 [facility] 11/20/23 documented as of this encounter
--- OUTSIDE RECORDS SUMMARY | 2024-04-01 16:44 | XMS_ITS | Encounter Summary ---
Author Organization [employer] Address [address] [place] [address] Care Team Providers Care Inspector Government Property Name Role Phone Sneha Li MD Primary Care Provider +1- [phone] Encounter Details Date Type Department Care Team (Latest Contact Info) Description 03/02/2024 1:15 PM EST - 03/02/2024 11:59 PM EST Hospital Encounter [facility] Radiation Oncology [address] [phone] Discharge Disposition: Home or Self Care Social [...] Description 04/13/2024 1:30 PM EST Appointment [facility] Radiation Oncology [address] [phone] Samina Diaz MD [address] [place] [address] 05/04/2024 11:20 AM EDT Office Visit [facility] 271 [facility] [address] [place] [phone] Lalito Miller MD 271 [facility] [address] [place] [address] documented as of this encounter Visit Diagnoses Not on filedocumented in this encounter Care Teams Inspector Government Property Relationship Specialty Start Date End Date Sneha Li MD 230 [facility] 1 [place] [address] PCP - General 01/23/23 documented as of this encounter
--- OUTSIDE RECORDS SUMMARY | 2024-04-01 16:44 | XMS_ITS ---
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 Cancer Staging:Clinical:Stage IIIC(cT4, cN1, cM0) - Signed by Samina Diaz MD on 01/01/2024 Congenital deafness 03/21/2023 COPD (chronic obstructive pulmonary disease) 10/2023 Low vitamin D level 03/21/2023 Nicotine dependence 03/21/2023 Current Oncology Plans Fluorouracil / MitoMYcin (D1, D29) with Concurrent Radiation* Plan Start Date: 12/21/2023 Plan Provider:Arlen Medrano, Linked Problems Primary squamous cell carcin comfort of anus (CMS/HCC) Treatment Medications 5-FU (ADRUCIL) chemo infusio n 100 mL - for home use solution5-FU (ADRUCIL) chemo infusion 250 mL - for home use solutionmitoMYcin (MUTAMYCIN) chemo IV syringe 0.5 mg/ml (20 mg vial) Past Plans No past plan information found. Radiation Treatments * Treatment Site Started On Last Treated On Elapsed Days Fractions Complete Last Fraction Dose Given/Prescribed Total Dose Given/Prescribed Technique Pelvis/Juanita s 02/09/20 24 5 51 30 of 30 180 cGy / 180 cGy 5,400 cGy / 5, 400 cGy 4 ARC VMAT Lifetime Dose Tracking * Chemical Lifetime Dose Automatic Entry Manual Entr y mitomycin 26.7 mg 26.7 mg 0 mg Resolved Problems Problem Noted Date Diagnosed Date Resolved Date Dehydration with hyponatremia 02/17/2024 03/03/2024 Hypotension 02/06/2024 02/10/2024 Hyponatremia 02/06/2024 02/10/2024 Dyslipidemia 03/21/2023 12/25/2023 Leukocytosis 03/21/2023 12/25/2023 Onychomycosis 03/21/2023 12/25/2023 Subareolar mass of left breast 03/21/2023 12/25/2023
--- OUTSIDE RECORDS SUMMARY | 2024-04-01 16:44 | XMS_ITS | Encounter Summary ---
Author Organization [employer] Address [address] [place] [address] Care Team Providers Care Latex Thread Machine Operator Name Role Phone Sneha Li MD Primary Care Provider +1- [phone] Encounter Details Date Type Department Care Team (Latest Contact Info) Description 03/01/2024 8:12 AM EST - 03/01/2024 11:59 PM EST Hospital Encounter [facility] Radiation Oncology [address] [phone] Discharge Disposition: Home or Self Care Social [...] Description 04/13/2024 1:30 PM EST Appointment [facility] Radiation Oncology [address] [phone] Samina Diaz MD 271 [place] [address] 05/04/2024 11:20 AM EDT Office Visit [facility] [place] [address] [facility] [address] [place] [phone] Lalito Miller MD 271 [facility] 110 [place] [address] documented as of this encounter Procedures Procedure Name Priority Date/Time Associated Diagnosis Comments RAD ONC MSQ TREATMENT SUMMARY Routine 03/01/2024 8:30 AM EST documented in this encounter Results * Rad Onc Msq Treatment Summary (03/01/2024 [...] [facility] RADIATION ONCOLOGY 03/01/2024 8:30 AM EST us Physician Radiation Oncology RADIATION ONCOLO GY ORDERABLES Final Result MOSAI[facility] RADIATION ONCOLOGY documented in this encounter Visit Diagnoses Not on filedocumented in this encounter Care Teams Latex Thread Machine Operator Relationship Specialty Start Date End Date Sneha Li MD 230 [facility] 1 [place] [address] PCP - General 01/23/23 documented as of this encounter
--- OUTSIDE RECORDS SUMMARY | 2024-04-01 16:44 | XMS_ITS | Encounter Summary ---
Author Organization [employer] Address [address] [facility] 7[address] [place] [address] Care Team Providers Care Gold Leaf Layer Name Role Phone Sneha Li MD Primary Care Provider +1- [phone] Reason for Visit * Reason Onset Date Comments Nurse Triage 01/01/2023 Encounter Details Date Type Department Care Team ([facility] st Contact Info) Description 01/01/2023 Telephone [facility] MEDICINE [address] [place], [place] [phone] Sneha Li MD [address] [place], [place] [phone] Nurse Triage Social History Tobacco Use Types Packs/Day Years [...] encounter Miscellaneous Notes * Telephone Encounter - Urvashi Owens RN - 01/01/2023 2:55 PM EST Triage call with logistics supervisor ID [id number]. Pt advocate Shayne Golden is speaking for [facility]. Pt has been reporting some difficulty with constipation and some rectal bleeding. Pt reports last stool yesterday 12/31/22 was very hard and difficult to pass with some blood noted on the toilet paper. Pthas been advised about liquids and diet but, is not adhering to advice. Pt drinks pepsicola, coffeefor liquids most of the time. Pt doesn't eat fruits or vegetables and very little fiber. Diet is reviewed at this time. Pt is advised to use MOM 30cc this evening if needed and agrees . Apt with Dr. Li is requested. Earliest apt is 01/22/23 at 1100am. logistics supervisor is needed at time of visit. Protocol Used: Constipation (Adult) Protocol-Based Disposition: See in Office or Video Visit within 2 Weeks Video visit not offered Positive Triage Questions: * Constipation is a recurrent ongoing problem (i.e., < 3 BMs / week or straining > 25% of thetime) * Minor bleeding from rectum (e.g., blood just on toilet paper, few drops, streaks on surface of normal formed BM) occurs more than twice * All higher-acuity triage questions were negative Care Advice Discussed: * Reassurance and Education - Constipation * General Constipation Instructions * High Fiber Diet * Drink Adequate Liquids * Get Into a Rhythm * Reasons To Call Back - Constipation lasts more than 1 week after using Care Advice - Abdomen swelling, vomiting or fever occur - Constant or increasing abdomen pain - You think you need to be seen - You become worse * Step 2 - Use an Osmotic Laxative if Needed * Telephone Encounter - Anuja Wahl - 01/01/2023 2:23 PM EST Symptoms: Rectal Bleeding, Constipation Outcome: Schedule an urgent appointment (within 1 hour) or talk to a nurse or provider soon Reason: Severe pain now The caller accepted this outcome Please call [phone] documented in this encounter Plan of Treatment Not on file documented as of this encounter Visit Diagnoses Not on filedocumented in this encounter Care Teams Gold Leaf Layer Relationship Specialty Start Date End Date Sneha Li MD [address] [place] [address] PCP - General Family Medicine 10/02/18 Dr. Lalito Miller MD [address] [address] Gynecologic Oncology 12/31/23 Dr. Samina Diaz [facility] Radiation Oncology 12/04/23 Dr. Pamela Medrano DO, Oncology 11/26/23 [facility] 11/20/23 documented as of this encounter
--- OUTSIDE RECORDS SUMMARY | 2024-04-01 16:44 | XMS_ITS | Encounter Summary ---
Author Organization [employer] Address [address] [facility] 7t [place] [address] Care Team Providers Care High Worker Name Role Phone Sneha Li MD Primary Care Provider +1- [phone] Encounter Details Date Type Department Care Team (Late st Contact Info) Description 03/19/2022 Abstract [facility] [address] [place], [place] [phone] Sneha Li MD [address] [place], [place] [phone] Social History Tobacco Use Types Packs/Day Years Used Date Smoking Tobacco: Never Assessed Comments Unknown Sex and Gender Information Value Date Recorded Sex Assigned at Female 12/10/2021 10:35 AM EDT Legal Sex Female 10:35 AM EDT Gender Identity Female 12/10/2021 10:35 AM EDT Sexual Orientation Straight 12/10/2021 10 :35 AM EDT documented as of this encounter Plan of Treatment Not on file documented as of this encounter Procedures Procedure Name Priority Date/Time Associated Diagnosis Comments MAMMOGRAPHY Routine 05/23/2020 THINPREP PAP AND HPV MRNA E6/E7 Routine 02/19/2019 12:00 AM EST documented in this encounter Results * Mammography (05/23/2020) Mammogram BIRADS 2 Anatomical Region Laterality Modality Other Historical Provider HEALTH MAINTENANCE Final Result * Thinprep PAP and HPV nRNA E6/E7 (02/19/2019 12:00 AM EST) us Historical Provider LAB PATHOLOGY ORDERABLES Final Result IMAGING documented in this encounter Visit Diagnoses Not on filedocumented in this encounter Care Teams High Worker Relationship Specialty Start Date End Date Sneha Li MD [address] [place] [address] PCP - General Family Medicine 10/02/18 Dr. Lalito Miller MD [address] [address] Gynecologic Oncology 12/31/23 Dr. Samina Diaz [facility] Radiation Oncology 12/04/23 Dr. Pamela Medrano DO, Oncology 11/26/23 [facility] 11/20/23 documented as of this encounter
--- OUTSIDE RECORDS SUMMARY | 2024-04-01 16:44 | XMS_ITS | Encounter Summary ---
Author Organization [employer] Address [address] [facility] 7t [place] [address] Care Team Providers Care Room Service Food Server Name Role Phone Sneha Li MD Primary Care Provider +1- [phone] Encounter Details Date Type Department Care Team (Late st Contact Info) Description 12/16/2023 Orders Only [facility] [address] [place], [place] [phone] Sneha Li MD [address] [place], [place] [phone] Metastatic squamous cell carcinoma involving anus with [...] documented as of this encounter Care Teams Room Service Food Server Relationship Specialty Start Date End Date Sneha Li MD [address] [place] [address] PCP - General Family Medicine 10/02/18 Dr. Lalito Miller MD [address] [address] Gynecologic Oncology 12/31/23 Dr. Samina Diaz [facility] Radiation Oncology 12/04/23 Dr. Pamela Medrano DO, Oncology 11/26/23 [facility] 11/20/23 documented as of this encounter
--- OUTSIDE RECORDS SUMMARY | 2024-04-01 16:44 | XMS_ITS | Encounter Summary ---
Author Organization [employer] Address [address] [facility] 7t [place] [address] Care Team Providers Care Pulp And Paper Tester Name Role Phone Sneha Li MD Primary Care Provider +1- [phone] Encounter Details Date Type Department Care Team ([facility] st Contact Info) Description 01/22/2023 Orders Only [facility] [address] [place] [address] Sneha Li MD 230 [place], [place] [phone] Low vitamin D level Social History Tobacco Use Types Packs/Day Years [...] as of this encounter Visit Diagnoses Diagnosis Low vitamin D level documented in this encounter Care Teams Pulp And Paper Tester Relationship Specialty Start Date End Date Sneha Li MD [address] [place] [address] PCP - General Family Medicine 10/02/18 Dr. Lalito Miller MD [address] [address] Gynecologic Oncology 12/31/23 Dr. Samina Diaz [facility] Radiation Oncology 12/04/23 Dr. Pamela Medrano DO, Oncology 11/26/23 [facility] 11/20/23 documented as of this encounter
--- OUTSIDE RECORDS SUMMARY | 2024-04-01 16:44 | XMS_ITS | Encounter Summary ---
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 She denies any fatigue. She reports some mild loose stools. Denies hematochezia. She is using the Silvadene cream. Appetite is good. Pain 6-8/10 - reporting it isimproved. Tolentino in place. Groin is rowan. Desquamation present. Anal and gluteal fold I moist desquamation. Plan/Instructions: Continue to use Silvadene cream and Sitz bath. Let us know if loose stool worsens. Call with any questions or concerns. Hydrate well. Eat well rounded diet. straight tooth gear generator operator instructions reviewed. Patient reports understanding and has no questions or concerns at this time. Treatment Outcome: Completed with breaks Treatment Delay: hospitalization and transportation issues. Disease Response to Treatment: Will be assessed at time of follow-up and Cannot yet be determined Follow-up: Return to Radiation Oncology on 04/13/[address] Diaz Cosigned by Samina Diaz MD at 04/01/2024 4:38 PM EST * Nickie Duron NP - 03/31/2024 1:30 PM EST Discharge Instructions after Radiation Treatments Side effects present at the end of treatment will usually improve in a few weeks. If you developed a skin reaction, it may continue to worsen for the next 7-10 days. Continue to be gentle with your skin. Your skin will be more sensitive to sunburn. Protect yourself from the sun. If needed, use sunscreen at least SPF 30. Fatigue and weakness may continue for several weeks. Be sure to get plenty of rest. Plan your activities accordingly. Continue healthy eating habits. Stay well hydrated, drink plenty of fluids. Follow-up visits will be scheduled so your Radiation physician can monitor your progress. Follow up in 4 - 6 weeks. Go to supervisor front for follow up appointment. Please call [phone] and select option #2 with any questions or concerns prior to your next visit. documented in this encounter Plan of Treatment Upcoming Encounters Date Type Department Care Team (Late st Contact Info) Description 04/13/2024 1:30 PM EST Appointment [facility] Radiation Oncology [address] [phone] Samina Diaz MD 271 [place] [address] 05/04/2024 11:20 AM EDT Office Visit [facility] [address] [facility] [address] [place] [phone] Lalito Miller MD 271 [facility] [address] [place] [address] documented as of this encounter Visit Diagnoses Diagnosis Primary squamous cell carcinoma of anus (CMS/HCC)- Primary Malignant neoplasm of anus, unspecified site documented in this encounter Care Teams Sausage Tier Relationship Specialty Start Date End Date Sneha iL MD 230 [facility] 1 [place] [address] PCP - General 01/23/23 documented as of this encounter
--- OUTSIDE RECORDS SUMMARY | 2024-04-01 16:44 | XMS_ITS | Patient Health Record ---
Author Organization [facility] Address [address] [place] [address] Care Team Providers Care Watch Train Assembler Name Role Phone Sneha Li MD Primary Care Provider Fariba Zaid Hinojosa Unavailable [phone] RESULTS Component Value Reference Range Notes Pathology Reviewed date:11/10/2023 06:52:10 PM Interpretation: Performing Lab:[facility], [address] [place] [phone] Notes/Report: Complete Blood Count Man Dif Reviewed date:11/08/2023 08:15:59 PM Interpretation: Performing Lab:[facility], [address] [place] [phone] Notes/Report: White Blood Count 12.0 4.8-10.8 X10*3/uL Red Blood Count 3.94 4.20-5.50 X10*6/uL Hemoglobin 9.7 12.0-16.0 g/dl Hematocrit 30.6 37.0-47.0 % Mean Corpuscular Volume 77.7 80.0-98.0 fL Mean Corpuscular Hemoglobin 24.6 27.0-33.0 pg Mean Corpuscular HGB Conc 31.7 31.0-35.0 g/dl Red Cell Distribution Width 18.8 11.0-16.0 % Platelet Count 312 160-400 X10*3/uL Mean Platelet Volume 11.3 9.4-12.3 fL NRBC Pct Auto 0.0 0.0-0.2 /100WBC NRBC Abs Auto 0.000 0.0-0.012 X10*3/uL Neutrophils Percent Manual 51 45-73 % Band Neutrophils Percent 2 3-5 % Lymphocytes Percent Manual 38 20-40 % Atypical Lymphs Percent Manual 3 0-6 % Monocytes Percent Manual 6 2-11 % Neutrophils Absolute Manual 6.4 2.0-8.3 X10*3 /uL Lymphocytes Absolute Manual 4.6 1.2-4.9 X10*3 /uL Atypical Lymph Absolute Manual 0.4 Monocytes Absolute Manual 0.7 0.1-1.2 X10*3/u L Smudge Cells PRESENT Platelet Estimate NORMAL NORMAL Platelet Morphology Comment NORMAL RBC Morphology NOTED Hypochromasia 1+ (5-14) Basic Metabolic Panel Fastin g Reviewed date:11/08/2023 08:15:44 PM Interpretation: Performing Lab:[facility], [address] [place] [phone] Notes/Report: Sodium 141 135-145 mmol/L Potassium 4.0 3.3-5.1 mmol/L Chloride 103 96-108 mmol/L Carbon Dioxide 29 22-29 mmol/L Anion Gap 13 12-20 Blood Urea Nitrogen 8 9-16 mg/dL Creatinine 0.67 0.5-1.4 mg/dL Creatinine Clr Calc Pharmacy 79.4 Provided height and weight: 157.48 cm, 53.2 kg. eGFR (calculated from the MDRD study equation) and eCrCl (calculated from the Cockcroft-Gault equation) are based on different parameters and may not yield comparable results. If eCrCl result is absurd, please check patient's height/weight. Estimated Glomerular Filt Rate > 60 NOTE: For -Peruvian individuals, multiply the result by 1.210. Chronic Kidney Disease: Estimated GFR < 60 mL/min/1.73m2 Severe Kidney Disease: Estimated GFR < 15 mL/min/1.73m2 Glucose Fasting 106 60-99 mg/dL A fasting glucose from 100-125 mg/dl is considered impaired (pre-diabetes). 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
--- OUTSIDE RECORDS SUMMARY | 2024-04-01 16:44 | XMS_ITS ---
Author Organization [facility] Address [address] [place] [address] Care Team Providers Care Commercial Intern Name Role Phone Sneha Li MD Primary Care Provider Fariba vailable Zaid Awad Unavailable [phone] [address]IT [address] scan colon Encounters Encounter Location Date Provider Diagnosis [facility] [place] [address] [place], [place] [phone] 11/06/2023 Zaid Awad PLAN OF TREATMENT No Information
== END 2024-04-01 17:06 | disposition home or self-care (01) ==
LOC: HO.HUSH 15:48
PROVIDERS: PCP Family Medicine; Visit Provider Urology
DX: C21.1 Malignant neoplasm of anal canal (principal); R33.9 Retention of urine, unspecified
CPT/HCPCS: 51700; 99214

== ENCOUNTER → 2024-04-01 15:48 | Outpatient (BNVA) | payer OTHER, SELFPAY | PROVIDERS: PCP Family Medicine; Visit Provider Urology | DX: C21.1 Malignant neoplasm of anal canal (principal); R33.9 Retention of urine, unspecified | CPT/HCPCS: 51700; 99212 ==

== ENCOUNTER 2024-05-07 15:34 | Outpatient (REF) | payer OTHER, SELFPAY | END 2024-05-07 15:35 | disposition home or self-care (01) | LOC: HO.LAB 15:34 | PROVIDERS: PCP Family Medicine; Visit Provider Urology | DX: R33.9 Retention of urine, unspecified (principal) | CPT/HCPCS: 87086; 87088; 87186 ==

== ENCOUNTER 2024-05-07 15:34 | Outpatient (AMB) | payer OTHER, SELFPAY ==
--- NOTE | 2024-05-07 14:33 | A.OFFVIS_ITS ---
Intake Visit Reasons: Cystoscopy Intake Note: Patient presents today for cystoscopy Urology Medication: Tamsulosin, Vesicare Antibiotic Allergy:NONE Blood Thinner:NONE Director Emergency Services Required: No Accompanied by: Unknown Allergies No Known Allergies [No Known Allergies*] Allergy (Verified 05/24/24 11:40) Medication List - Last Reconciled 05/07/24 by Nona Mcintosh MD acetaminophen 500 - 1,000 mg PO Q8-12H PRN ascorbic acid (vitamin C) 250 mg PO BID cefuroxime axetil 500 mg PO BID 5 days clotrimazole-betamethasone 1-0.05 % 1 appl topical BID 2 weeks lorazepam 0.5 mg PO BID melatonin 6 mg (2 x 3 mg) PO BEDTIME PRN nicotine 1 patch transdermal DAILY oxycodone 10 mg PO Q4H PRN oxycodone ER (OxyContin) 20 mg (2 x 10 mg) PO BID polyethylene glycol 3350 17 grams PO DAILY PRN risperidone 4 mg PO BEDTIME risperidone 1 mg PO BID solifenacin (Vesicare) 10 mg PO DAILY sulfamethoxazole-trimethoprim 800-160 mg (Bactrim DS) 1 tab PO BID tamsulosin 0.4 mg PO BEDTIME 30 days HPI Comments Details: 05/07/24--Here for office cystoscopy-May is a 53-year-old female who is deaf; history of schizophrenia, anxiety/depression, 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 Rocha is in place patient has failed voiding trials. Cystoscopy findings: bladder wall thickening,erythematous changes c/w chronic rocha and cystitis. Plan continue with rocha to manage urinary retention, vesicare daily, ceftin bid for dys. 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 Rocha is in place patient has failed voiding trials. On examination there is excoriation of her perineum. Nursing staff has changed Rocha catheter 16 Turkish placed. We will empirically place her on Bactrim. We will start VESIcare for bladder spasms. Lotrisone ointment to apply to perineum. Follow-up in 2 weeks for nursing staff to review the perineum. 11/28/23--52-year-old female with history of schizophrenia, anxiety/depression, metastatic cancer likely anal in origin and mild persistent asthma who is deaf and requires ASL interpretation here for voiding trial. Patient failed voiding trial 14 fr catheter placed. Start tamsulosin, fu in 4 weeks for repeat voiding trial with Urology nurse [facility] Medical History Squamous cell carcinoma of anal canal Schizophrenia Asthma History of gallbladder disease Chronic pain of left knee Low vitamin D level Dyslipidemia Mental health disorder Hx of Lyme disease Congenital deafness Surgical History Hx of surgical procedure (~11/13/23) Hx of tubal ligation Hx of appendectomy History of cholecystectomy Hx of foot surgery Family History Mother Hypertension Social History Household Members: None Housing: Apartment Are you a primary health care marketing manager to a significant other at home: No Do you presently have visiting nurse or other home services: Yes ([facility]) Alcohol intake: former Patient Tobacco Use Status: Former Tobacco user Tobacco use type: Cigarette Cigarette Packs Per Day: 1 Years Smoked: 30 service: No Current occupational status: disabled Female Reproductive History Menstrual Age of Menarche: 15 Review of Systems Const All systems reviewed & are unremarkable except as noted in HPI and below Reports no additional complaints Eyes Reports no additional complaints ENT Reports no additional complaints Card Reports no additional complaints Resp Reports no additional complaints GI Reports no additional complaints Reports as per HPI Musc Reports no additional complaints Skin/Breast Reports system reviewed and no additional complaints, except as documented Neuro Reports no additional complaints Psych Reports no additional complaints Endo Reports no additional complaints Augusto/Lymph Reports no additional complaints Aller/Immun Reports no additional complaints Office Procedures Bladder/Catheter Procedure Details: Prior to cystoscopy prep, 16Fr rocha catheter with valve removed. 14Fr rocha catheter with 10ml and valve reinserted post procedure per Dr. Hanna. Dr. Hanna advises patient uses night bag for night time only to help prevent any bladder spasms at night since patient has some mild skin breakdown still in her kacy area. Educated patient on the valve and use of night bag at night. Patients OXYGEN SYSTEM TESTER Marisa in the room at the end and education given to her as well. Patient to follow up for 4 week cath change with nurses. [id number] Temporary Bladder Catheter Procedure code (CPT) selection complete Cystoscopy Consent Discussed risk and benefit or proposed procedure with the patient. Information consent for procedure given to the patient. Discussed technical aspects, risks, benefits and alternatives in full. Addressed all of the patient's questions and concerns regarding the procedure. The patient demonstrated knowledge and understanding. They wish to proceed with this procedure. Preparation The patient was prepped in the usual manner. A sawmilling operator was present and in the room. Genitalia was prepped with betadine solution in a sterile manner. Lidocaine Jelly 2% was placed into the urethra and 16Fr flexible Olympus cystoscope was inserted into the meatus after adequate lubrication. Procedure Time out per protocol performed. Speculum used as indicated for adequate visualization of urethra, the flexible cystoscope is passed transurethrally: The bladder was inspected in its entirety with utilization retroflexion displaying: Tumor(s): no suspicious bladder lesions visualized Trabeculation: Mild to Moderate Mucosal Erthema: changes consistent with chronic catheter Orifices: normal shape and position Urethra: normal 16Fr catheter with valve removed prior to medication prep for the cystoscopy [id number] DISPOSABLE SCOPE URO-G FLEXIBLE SCOPE Procedure code (CPT) selection complete Office Meds lidocaine HCl 2 % mucosal jelly in applicator Performing Provider: Nona Mcintosh MD [place] [facility] [place] [facility] Administered by: Kathie Artis RN on 05/07/24 16:07 Dose Route Admin Location Dispensed [place] Number Ex[place] Date [facility] [place] [facility] 20 mL intra-urethral 20 mL ciprofloxacin HCl 500 mg tablet Performing Provider: Nona Mcintosh MD [place] [facility] [place] [facility] Administered by: Kathie Artis RN on 05/07/24 16:07 Dose Route Admin Location Dispensed Lot Number Expiration Date [facility] [place] [facility] 500 mg PO 1 tab phenazopyridine 200 mg tablet Performing Provider: Nona Mcintosh MD [place] [facility] [place] [facility] Administered by: Kathie Artis RN on 05/07/24 16:07 Dose Route Admin Location Dispensed Lot Number Expiration Date [employer] Radiator Specialist 200 mg PO 1 tab Results AMB Urinalysis, Automated UA Leukoctes 500 Yadira/uL Last Edit by Crystal Hipolito on 05/07/24 16:21 UA Nitrite Positive Last Edit by Crystal Mcmillan on 05/07/24 16:21 UA Urobilinogen 0.2 mg/dL Last Edit by Crystal Mcmillan on 05/07/24 16:21 UA Protein 30 mg/dL Last Edit by Crystal Mcmillan on 05/07/24 16:21 UA pH 6.0 Last Edit by Crystal Mcmillan on 05/07/24 16:21 UA Blood 25 Arturo/uL Last Edit by Crystal Mcmillan on 05/07/24 16:21 UA Specific Reader 1.020 Last Edit by Crystal Mcmillan on 05/07/24 16:21 UA Ketone Negative Last Edit by Crystal Mcmillan on 05/07/24 16:21 UA Bilirubin 0 mg/dL Last Edit by Crystal Mcmillan on 05/07/24 16:21 UA Glucose 0 mg/dL Last Edit by Crystal Mcmillan on 05/07/24 16:21 Results Reviewed Results Reviewed: Laboratory Last Values Urine pH (Auto) 6.0 05/07/24 16:20 Specific Reader (Auto) 1.020 05/07/24 16:20 Urine Protein (Auto) 30 mg/dL 05/07/24 16:20 Glucose (UA)(Auto) 0 mg/dL 05/07/24 16:20 Urine Ketones (Auto) Negative 05/07/24 16:20 Urine Blood (Auto) 25 Arturo/uL 05/07/24 16:20 Urine Nitrite (Auto) Positive 05/07/24 16:20 Urine Bilirubin (Auto) 0 mg/dL 05/07/24 16:20 Urine Urobilinogen (Auto) 0.2 mg/dL 05/07/24 16:20 Leukocyte Esterase (Auto) 500 Yadira/uL 05/07/24 16:20 Assessment & Plan Assessment & Plan (1) Squamous cell carcinoma of anal canal: Code(s): C21.1 - Malignant neoplasm of anal canal Category: Medical (2) Urinary retention: Code(s): R33.9 - Retention of urine, unspecified Category: Medical (3) Cystitis: Code(s): N30.90 - Cystitis, unspecified without hematuria Category: Medical (4) Detrusor overactivity: Code(s): N32.81 - Overactive bladder Category: Medical Plan VESIcare 10 mg daily, Cont rocha with q4 week changes and prn Ceftin 500mg bid for 5 days Orders: Orders AMB Bladder/Catheter Procedure 05/07/24 R33.9 - Retention of urine, unspecified Urine Culture 05/07/24 N39.0 - Urinary tract infection, site not specified AMB Cystoscopy 05/07/24 R33.9 - Retention of urine, unspecified AMB Urinalysis Automated 05/07/24 Z13.9 - Encounter for screening, unspecified Medications: New cefuroxime axetil 500 mg PO BID 10 tabs 0RF 5 days Patient Instructions: The patient had an opportunity to ask questions regarding treatment plan. The patient expressed understanding and agreement with the above treatment plan. The patient is aware they should contact our office by phone for worsening of their current condition or the appearance of new symptoms. Compliance is encouraged with any medications and followup testing that is ordered. It is a privilege to be allowed the opportunity to participate in the urologic care of your patient. If you have any questions or concerns regarding treatment for the above conditions please do not hesitate to contact me. The office telephone contact is [phone]. This note is constructed in part using voice recognition software. While every effort has been made to ensure accuracy crop picker errors may have been included. Yours sincerely, Nona Mcintosh MD Scribe Plan - Not visible on output: Patient was informed and verbally consented to the use of an ambient scribe for clinic note documentation during this visit. Coding Level of Care Code Est Pt Level 3 (73606) Diagnoses Squamous cell carcinoma of anal canal C21.1 Urinary retention R33.9 Cystitis N30.90 Detrusor overactivity N32.81 CPT Codes Bladder/Catheter Procedure - CPT: 76814-Hyrrhc Temporary Bladder Catheter ([id number]) Cystoscopy - CPT: 56994-Rbbfcvvyls ([id number])
== END 2024-05-07 16:30 | disposition home or self-care (01) ==
LOC: HO.HUSH 15:35
PROVIDERS: PCP Family Medicine; Visit Provider Urology
DX: R33.9 Retention of urine, unspecified (principal); Z13.9 Encounter for screening, unspecified
CPT/HCPCS: 52000

== ENCOUNTER 2024-05-24 11:19 | Outpatient (AMB) | payer OTHER, SELFPAY ==
--- NOTE | 2024-05-24 11:32 | A.OFFVIS_ITS ---
Vital Signs 05/24/24 11:40 Height 5 ft 2 in Weight 111 lb BMI 20.3 BP 96/52 L Blood Pressure Location Lt brachial Position Sitting Pulse 85 Intake Visit Reasons: 6 month follow up, sigmoid loop colostomy Intake Note: Patient is seen in office for 6 month follow up visit, following sigmoid loop colostomy. Pt c/o: admits to abdominal pain and anal pain, had recent radiation that might have contributed to the pain, takes stool softener, eating is fair Tie Sawyer Required: No Accompanied by: Other Relationship Allergies No Known Allergies [No Known Allergies*] Allergy (Verified 05/24/24 11:40) HPI HPI 6 month follow up, sigmoid loop colostomy: Details: [age] year female here for follow-up after a sigmoid loop colostomy. She had undergone this because of impending obstruction with her very bulky squamous cell carcinoma of the anal canal in November,. She had been having significant pain as well at that time She has started chemotherapy and radiation for her squamous cell carcinoma in [facility]. She says that she continues to have pain and discomfort although this the neoadjuvant treatment has helped some Her colostomy has been functioning well. She has a known hearing impairment. She communicates by sign language and by lip reading. [facility] Medical History Squamous cell carcinoma of anal canal Schizophrenia Asthma History of gallbladder disease Chronic pain of left knee Low vitamin D level Dyslipidemia Mental health disorder Hx of Lyme disease Congenital deafness Surgical History Hx of surgical procedure (~11/13/23) Hx of tubal ligation Hx of appendectomy History of cholecystectomy Hx of foot surgery Family History Mother Hypertension Social History Household Members: None Housing: Apartment Are you a primary complex care nurse practitioner to a significant other at home: No Do you presently have visiting nurse or other home services: Yes ([facility]) Alcohol intake: former Patient Tobacco Use Status: Former Tobacco user Tobacco use type: Cigarette Cigarette Packs Per Day: 1 Years Smoked: 30 service: No Current occupational status: disabled Female Reproductive History Menstrual Age of Menarche: 15 Review of Systems Const Denies chills and Denies fever(s) Card Denies chest pain Resp Denies cough GI Details: Colostomy in place Denies abdominal pain Physical Exam Vital Signs: Last Vital Signs Pulse 85 05/24/24 11:40 BP 96/52 L 05/24/24 11:40 BMI result Body Mass Index 20.3 Assessment & Plan Assessment & Plan (1) Squamous cell carcinoma of anal canal: Code(s): C21.1 - Malignant neoplasm of anal canal Category: Medical Plan: She is known to me for 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 She had a very large, bulky lesions seen on her CAT scan last October,. This was seen to have impending obstruction so did her diverting sigmoid loop colostomy last November,. She states that her colostomy has been functioning well. She denies complaints with regards to these. She continues to have pain in the anus. She has seen fecal Oncology as well as Radiation Oncology. She has undergone treatment with 5 FU and mitomycin, along with radiation. She was supposed to undergo follow up imaging studies with a PET scan as well as an MRI. Currently, in view of her advanced disease, no surgical intervention is being planned. She is supposed to have a follow up with her medical oncologist next week. She is undergoing all of these treatment at [facility]. She also has a Tolention catheter in place and she says that he has changed regularly her visiting nurse. I emphasized to her the importance of continuing to follow up with her medical oncologist for treatment. Again, she understands that at this time, no surgical intervention is being planned. She can however see me in the office down the line. She seems to understand the plan well. Her caregiver was with her and helped with the explanation above. Coding Level of Care Code Est Pt Level 4 (63750) Diagnoses Squamous cell carcinoma of anal canal C21.1
[2024-05-24 11:40] VITALS: BP 96/52; PULSE 85; BMI 20.3
--- OUTSIDE RECORDS SUMMARY | 2024-05-24 13:21 | XMS_ITS | Encounter Summary ---
Author Organization [employer] Address [address] [place] [address] Care Team Providers Care Pull Over Name Role Phone Sneha Li MD Primary Care Provider +1- [phone] Nona Hanna MD Unavailable Reason for Visit * Reason Onset Date Comments Durable Medical Equipment 05/27/2023 Encounter Details Date Type Department Care Team (Late st Contact Info) Description 05/27/2023 Telephone [facility] [address] [place], [place] [phone] Sneha Li MD [address] [place], [place] [phone] Durable Medical Equipment Social History Tobacco Use [...] 12:28 PM EDT Tc from Norma with [facility] requesting DME: Shower chair If any questions you can contact Norma at [phone]. Norma would like that faxed to David. L&C documented in this encounter Plan of Treatment Not on file documented as of this encounter Visit Diagnoses Not on filedocumented in this encounter Care Teams Pull Over Relationship Specialty Start Date End Date Sneha Li MD [address] [place] [address] PCP - General Family Medicine 10/02/18 Nona Hanna MD [address] [place] [address] Urology 04/02/24 Dr. Lalito Miller MD [address] [address] Gynecologic Oncology 12/31/23 Dr. Samina Diaz [facility] Radiation Oncology 12/04/23 Dr. Pamela Medrano DO, Oncology 11/26/23 [facility] 11/20/23 documented as of this encounter
--- OUTSIDE RECORDS SUMMARY | 2024-05-24 13:21 | XMS_ITS | Encounter Summary ---
Author Organization [email or web address] Address [address] [facility] [address] [place] [address] Care Team Providers Care Rougher Machine Operator Name Role Phone Sneha Li MD Primary Care Provider +1- [phone] Nona Hanna MD Unavailable Reason for Visit * Reason Onset Date Comments FYI 09/09/2023 Encounter Details Date Type Department Care Team ([facility] st Contact Info) Description 09/09/2023 Telephone [facility] [address] [place], [place] [phone] Sneha Li MD [address] [place], [place] [phone] FYI Social History Tobacco Use Types Packs/Day [...] 1:02 PM EDT Tc from Kayla with [facility] calling to inform pcp on readings during today's visit. Heart rate came out to 118 regular and blood pressure was 100/60. If any questuions you can contact Kayla at [phone]. documented in this encounter Plan of Treatment Not on file documented as of this encounter Visit Diagnoses Not on filedocumented in this encounter Care Teams Rougher Machine Operator Relationship Specialty Start Date End Date Sneha Li MD [address] [place] [address] PCP - General Family Medicine 10/02/18 Nona Hanna MD [address] [place] [address] Drive [address] [place] [address] Urology 04/02/24 Dr. Lalito Miller MD [address] [address] Gynecologic Oncology 12/31/23 Dr. Samina Diaz [facility] Radiation Oncology 12/04/23 Dr. Pamela Medrano DO, Oncology 11/26/23 [facility] 11/20/23 documented as of this encounter
--- OUTSIDE RECORDS SUMMARY | 2024-05-24 13:21 | XMS_ITS | Encounter Summary ---
Author Organization [employer] Address [address] [facility] [address] [place] [address] Care Team Providers Care Diagnostic Cardiac Sonographer Name Role Phone Sneha Li MD Primary Care Provider +1- [phone] Nona Hanna MD Unavailable Reason for Visit * Reason Onset Date Comments FYI 05/06/2023 Encounter Details Date Type Department Care Team ([facility] st Contact Info) Description 05/06/2023 Telephone [facility] [address] [place], [place] [phone] Sneha Li MD [address] [place], [place] [phone] FYI Social History Tobacco Use Types Packs/Day [...] Boss - 05/06/2023 3:02 PM EDT Tc from Onofre at [facility] calling to inform the PCP the patient denied PT services andstated does not need it documented in this encounter Plan of Treatment Not on file documented as of this encounter Visit Diagnoses Not on filedocumented in this encounter Care Teams Diagnostic Cardiac Sonographer Relationship Specialty Start Date End Date Sneha Li MD [address] [place] [address] PCP - General Family Medicine 10/02/18 Nona Hanna MD [address] [place] [address] Drive [address] [place] [address] Urology 04/02/24 Dr. Lalito Miller MD [address] [address] Gynecologic Oncology 12/31/23 Dr. Samina Diaz [facility] Radiation Oncology 12/04/23 Dr. Pamela Medrano DO, Oncology 11/26/23 [facility] 11/20/23 documented as of this encounter
--- OUTSIDE RECORDS SUMMARY | 2024-05-24 13:21 | XMS_ITS | Clinical Summary ---
Author Organization [employer] Address [address] [facility] [address] [place] [address] Care Team Providers Care Med Dir Name Role Phone Sneha Li MD Primary Care Provider [phone] Nona Hanna MD Unavailable Allergies No known active allergies Medications * This document contains information received from the source organization and may not represent a complete record from that organization. Acetaminophen Extra Strength 500 MG tabletIndicatio ns:Pain TAKE 1 TO 2 TABLETS BY MOUTH EVERY 8-12 HOURS NEEDED 40 tablet 1 024 Active risperiDONE (RisperDAL) 4 MG tabletIndicatio ns:Chronic psychosis (CMS/HCC) Take 1 tablet by mouth at bedtime. Prescribe by psychiatry 024 Active risperiDONE (RisperDAL) 1 MG tabletIndicatio ns:Chronic psychosis (CMS/HCC) Take 1 tablet by mouth 2 times daily. Increased to bid in hospital 09/2023 Prescribe by psychiatry 024 Active LORazepam (Ativan) 0.5 MG tabletIndicatio ns:Chronic psychosis (CMS/HCC) Take by mouth 2 times daily. psychiatry Active Fluticasone-Anish meterol (Advair Diskus) 500-50 MCG/ACT aerosol powderIndicatio ns:Moderate chronic obstructive pulmonary disease (CMS/HCC) Inhale 500 mcg 2 times daily. Discontinue flovent 3 each 024 Active albuterol 108 (90 Base) MCG/ACT inhalerIndicati ons:Moderate chronic obstructive pulmonary disease (CMS/HCC) Inhale 2 puffs every 6 (six) hours if needed for wheezing. 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 May repeat every 2-3 minutes if needed, alternating nostrils, until medical assistance becomes available. 2 each 024 2024 Active nicotine (Nicoderm, Step 1) 21 MG/24HR patchIndication s:Nicotine Dependence Place 1 patch on the skin 1 (one) time each day at the same time. 30 patch 3 024 Active varenicline (Chantix) 0.5 MG tabletIndicatio ns:Tobacco abuse Take 0.5 mg PO once daily on Days 1 through 3, then 0.5 mg PO twice daily on Days 4 through 7, and finally 1 mg PO twice daily on day 8 until the end of treatment. 12 tablet 2 025 Active varenicline (Chantix) 1 MG tabletIndicatio ns:Tobacco abuse Take 1 tablet (1 mg) by mouth 2 times daily. 0.5 mg PO once daily on Days 1 through 3, then 0.5 mg PO twice daily on Days 4 through 7, and finally 1 mg PO twice daily on day 8 until the end of treatment. 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 Number of tab increased due to increased need for metastatic cancer. 150 tablet 025 Active ammonium lactate (Lac-Hydrin) 12 % lotion APPLY TO SOLES OF FEET AT NIGHT. WEAR SOCKS TO BED. 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 Number of tab increased due to increased need for metastatic cancer. 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 Do not crush, chew, or split. Dose increased 01/07/24 60 tablet 025 2024 Discontinued(A lternate therapy) Active Problems Patient Care Coordination No te Formatting of this note migh t be different from the original. [facility] Operator: Helena, member services number [phone], provider services line, , option 4 they told me Helena Chris is respiratory care assistant who work with [facility] phone number . 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 On exam Dr Diaz noted 3cm disc mass in upper outter quadrannt. Pts last mammo normal 07/2023. Will order urgent US and mammo to be done at [facility]. spanish interpreter/translator will be needed. -Ordered mammogram and US, scheduled for 06/03/24 Assessment & Plan (05/14/2024 11:25 AM EDT): Call received from Dr Diaz radiation oncologist who reports pt states she has right breast mass that is new. On exam Dr Diaz noted 3cm disc mass in upper outter quadrannt. Pts last mammo normal 07/2023. Will order urgent US and mammo to be done at [facility]. spanish interpreter/translator will be needed. -Ordered mammogram and US, scheduled for 06/03/24 Tobacco abuse 04/16/2024 Overview (05/14/2024): Back to smoking a pack a day. -discussed all the options, and she requested Chantix. She understands there is a risk for exacerbation of mental health issues, but given the severity of her risk with smoking, shared decision-making done. -prescribed varenicline (Chantix) 0.5 MG 04/16/24 -not started yet, will try and start Chantix soon 05/14/24 Assessment & Plan (05/14/2024 11:24 AM EDT): Back to smoking a pack a day. -discussed all the options, and she requested Chantix. She understands there is a risk for exacerbation of mental health issues, but given the severity of her risk with smoking, shared decision-making done. -prescribed varenicline (Chantix) 0.5 MG 04/16/24 -not started yet, will try and start Chantix soon 05/14/24 Assessment & Plan (04/16/2024 5:52 PM EST): Back to smoking a pack a day. -discussed all the options, and she requested Chantix. She understands there is a risk for exacerbation of mental health issues, but given the severity of her risk with smoking, shared decision-making done. -prescribed varenicline (Chantix) 0.5 MG 04/16/24 S/P colostomy 11/19/2023 Metastatic squamous cell car cinoma involving anus with unknown primary site 10/24/2023 Overview (05/14/2024): Primary squamous cell carcinoma of anus (CMS/HCC) [...] placement will be scheduled. -care transferred by [facility] oncology to [facility] -Seen by Dr. Shayne Brock, general surgery 12/16/2023 for consultation regarding management of locally advanced squamous cell cancer . This was requested by radiation oncology however they deferred to Dr. Pelayo at [facility] as he did the colostomy on her -seen 12/24/23 with Pamela Cooper DO, Hematology/Oncology at [facility]: pet scan which shows involvement of only [...] is Dr. Samina Diaz -12/25/23 seen by Cartography Professor Onc Dr Miller :The tumor is quite [...] examination to be formed under anesthesia. -12/29/23 yardage caller onc examination under anesthesia with biopsies of cervix, vagina, vulva, and possible cystoscopy and rigid proctoscopy for further evaluation of the extent of malignancy. -coordinate with Dr. Samina Diaz to see if she would be available during the surgery to also assess the tumor and aid with radiation planning. -follow up with heme onc with Talia Blanchard -follow up with yardage caller onc Paul Yanez -Pain medication sent by [...] started on 02/12/2024. Med onc Dr. Cooper. -radiation oncology note with Dr. Samina Diaz 04/13/24May completed radiation therapy and chemotherapy the end of March 2024. The tumor has regressed but left a tissue void. She has follow up with Dr. Lanza 05.04.[address] Cooper 05/07/24 -rocha to be replaced or removed by urology at [facility] -Cancer responded well to radiation, has follow-up with Oncologist June 29, 2024. 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 Reports decreased oxycodone to 10 mg tabs only 05/14/24 Assessment & Plan (05/14/2024 11:30 AM EDT): Primary squamous cell carcinoma of anus (CMS/HCC) [...] placement will be scheduled. -care transferred by [facility] oncology to [facility] -Seen by Dr. Shayne Brock, general surgery 12/16/2023 for consultation regarding management of locally advanced squamous cell cancer . This was requested by radiation oncology however they deferred to Dr. Pelayo at [facility] as he did the colostomy on her -seen 12/24/23 with Pamela Cooper DO, Hematology/Oncology at [facility]: pet scan which shows involvement of only [...] is Dr. Samina Diaz -12/25/23 seen by Cartography Professor Onc Dr Miller :The tumor is quite [...] examination to be formed under anesthesia. -12/29/23 yardage caller onc examination under anesthesia with biopsies of cervix, vagina, vulva, and possible cystoscopy and rigid proctoscopy for further evaluation of the extent of malignancy. -coordinate with Dr. Samina Diaz to see if she would be available during the surgery to also assess the tumor and aid with radiation planning. -follow up with heme onc with Talia Blanchard -follow up with yardage caller onc Paul Yanez -Pain medication sent by [...] rectal mass -Oncology note 03/23/[address] Allison DO: pt to start concurrent radiation and [...] started on 02/12/2024. Med onc Dr. Cooper. -radiation oncology note with Dr. Samina Diaz 04/13/24May completed radiation therapy and chemotherapy the end of March 2024. The tumor has regressed but left a tissue void. She has follow up with Dr. Lanza 05.04.[address] Cooper 05/07/24 -rocha to be replaced or removed by urology at [facility] -Cancer responded well to radiation, has follow-up with Oncologist June 29, 2024. 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 Reports decreased oxycodone to 10 mg tabs only 05/14/24 Assessment & Plan (04/16/2024 5:50 PM EST): Primary squamous cell carcinoma of anus (CMS/HCC) [...] placement will be scheduled. -care transferred by [facility] oncology to [facility] -Seen by Dr. Shayne Brock, general surgery 12/16/2023 for consultation regarding management of locally advanced squamous cell cancer . This was requested by radiation oncology however they deferred to Dr. Pelayo at [facility] as he did the colostomy on her -seen 12/24/23 with Pamela Cooper DO, Hematology/Oncology at [facility]: pet scan which shows involvement of only [...] is Dr. Samina Diaz -12/25/23 seen by Cartography Professor Onc Dr Miller :The tumor is quite [...] examination to be formed under anesthesia. -12/29/23 yardage caller onc examination under anesthesia with biopsies of cervix, vagina, vulva, and possible cystoscopy and rigid proctoscopy for further evaluation of the extent of malignancy. -coordinate with Dr. Samina Diaz to see if she would be available during the surgery to also assess the tumor and aid with radiation planning. -follow up with heme onc with Talia Blanchard -follow up with yardage caller onc Paul Yanez -Pain medication sent by [...] started on 02/12/2024. Med onc Dr. Cooper. -radiation oncology note with Dr. Samina Diaz 04/13/24May completed radiation therapy and chemotherapy the end of March 2024. The tumor has regressed but left a tissue void. She has follow up with Dr. Lanza 05.04.[address] Cooper 05/07/24 -rocha to be replaced or removed by urology at [facility] Assessment & Plan (11/19/2023 4:54 PM EDT): [...] for CK20. -hospitalized for pain management at [facility] 10/2023 - awaiting outpatient PET-CT . Depending [...] PET scan trying to be arranged at [place] and they should hear from them. Assessment [...] f/u with Dr. Peterson. -Her caseworkr at [facility] is [facility] #[phone] -Continue with therapist Cara Ramsay. -Prescribed 0.5 mg Lorazepam, BID on recent admission to [facility] on 08/27/23 and Risperidone was increased to [...] f/u with Dr. Peterson. -Her caseworkr at [facility] is [facility] #[phone] -Continue with therapist Cara Ramsay. -Prescribed 0.5 mg Lorazepam, BID on recent admission to [facility] on 08/27/23 and Risperidone was increased to [...] visit for hallucination 01/14/2021. Her caseworkr at [facility] is Matt #[phone] Continue with therapist Cara Ramsay. Assessment & [...] visit for hallucination 01/14/2021. Her caseworkr at [facility] is Matt #[phone] Continue with therapist Cara Ramsay. Cigarette nicotine [...] deafness 07/31/2022 Overview (10/07/2023): -Has services with [employer]. -Needs ASL interpreters for all speciality appointments. Assessment & Plan (05/14/2024 11:26 AM EDT): -Has services with [employer] -Needs ASL interpreters for all speciality appointments. Assessment & Plan (04/16/2024 5:50 PM EST): -Has services with [employer] -Needs ASL [...] (07/31/2022 9:22 AM EDT): Has services with [employer] Needs ASL [...] Overview (10/08/2023): Lab Results Component Value Date [id number] 10.6 (L) 01/22/2023 -vit D 50,000 weekly started 01/22/2023 -ordered Vitamin D level ordered 10/08/23 Assessment & Plan (10/08/2023 9:30 AM EDT): Lab Results Component Value Date [id number] 10.6 (L) 01/22/2023 -vit D 50,000 weekly started 01/22/2023 -ordered Vitamin D level ordered 10/08/23 Preventative health care 07/31/2022 Overview (10/07/2023): -next physical exam due after 01/23/2024. -followed by [facility] in [place], last seen May 2022, will request note 07/31/2022. -[employer] -health care proxy paperwork filed 06/25/23 Assessment & Plan (10/08/2023 9:44 AM EDT): -next physical exam due after 01/23/2024. -followed by [facility] in [place], last seen May 2022, will request note 07/31/2022. -[employer] -health care proxy paperwork filed 06/25/23 Assessment & Plan (06/25/2023 10:29 AM EDT): -next physical exam due after 01/23/2024. -She goes to [facility] in [place], last seen May 2022, will request note 07/31/2022. -[employer] -health care proxy paperwork filed 06/25/23 Assessment & Plan (01/22/2023 11:44 AM EST): Next PE due after 01/23/2024 -She goes to [facility] in [place], last seen May 2022, will request note 07/31/2022. Assessment & Plan (07/31/2022 11:29 AM EDT): Next PE due after 08/01/2023. -She goes to [facility] in [place], last seen May 2022, will request note 07/31/2022. Colon cancer screening 07/31/2022 Overview (05/14/2024): -referral placed 03/2021 and to [facility] 08/01/22 - pt has appointment 07/15/23 at 11:30am it will be at [address] [facility] interpretation services requested. Ollie pt's rn intensive care unit is aware -Saw GI and has colonoscopy scheduled for 01/13/24 -I called over to [facility] and will send new labs revealing new anemia. Will fax to [phone]. -Encouraged to consider getting colonoscopy despite concern with prep 05/14/24 Assessment & Plan (05/14/2024 11:26 AM EDT): -referral placed 03/2021 and to [facility] 08/01/22 - pt has appointment 07/15/23 at 11:30am it will be at [address] [facility] interpretation services requested. Ollie pt's rn intensive care unit is aware -Saw GI and has colonoscopy scheduled for 01/13/24 -I called over to [facility] and will send new labs revealing new anemia. Will fax to [phone]. -Encouraged to consider getting colonoscopy despite concern with prep 05/14/24 Assessment & Plan (10/08/2023 1:48 PM EDT): -referral placed 03/2021 and to [facility] 08/01/22 - pt has appointment 07/15/23 at 11:30am it will be at [facility] in [facility] interpretation services requested. Ollie pt's rn intensive care unit is aware -Saw GI and has colonoscopy scheduled for 01/13/24 -I called over to [facility] and will send new labs revealing new anemia. Will fax to [phone]. Assessment & Plan (07/31/2022 11:29 AM EDT): [...] booster -counseled smoking cessation. 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) 05/17/[address] [address] Sneha Li MD Appointment Request 05/14/2024 11:00 AM EDT Telemedicine [address] [address] Sneha Li MD 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) (Primary Dx); Mass of upper outer quadrant of right breast; S/P colostomy (CMS/HCC); Moderate chronic obstructive pulmonary disease (CMS/HCC); Calcification of indwelling Rocha catheter, subsequent encounter; Constipation, unspecified constipation type; Schizophrenia, unspecified type (CMS/HCC); Tobacco abuse; Colon cancer screening; Bilateral deafness 05/14/2024 Travel 05/12/2024 Orders Only [address] [address] Sneha Li MD Mass of upper outer quadrant of right breast (Primary Dx) 05/12/[address] [address] Sneha Li MD call back needed 05/07/2024 Orders Only GENERIC EXTERNAL DATA DEPARTMENT Provider, Generic External Data 04/27/[address] [address] Sneha Li MD Paperwork/Forms 04/22/[address] [address] Sneha Li MD 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) 04/19/[address] [address] Sneha Li MD Appointment Request 04/16/2024 11:45 AM EST Telemedicine [address] [address] Sneha Li MD 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) (Primary Dx); Tobacco abuse; Bilateral deafness 03/24/[address] [address] Sneha Li MD [employer] (Incontinence Procare, underpad) 03/15/2024 Refill [facility] [address] [place] [address] Sneha Li MD 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) 03/03/2024 Telephone [facility] [address] [place] [address] Sneha Li MD Durable Medical Equipment (briefs) 02/27/2024 Telephone [facility] [address] [place], [place] [phone] Norma Boss [place] DME colostomy bags (I faxed the order for DME to [facility] from Last 3 Months Immunizations Name Administration [...] the past 12 months, has t he MDconnectME, gas, oil or water company threatened to [...] 02/20/2024 02/19/2019 Depression Screening 10/07/2024 10/08/2023, 10/08/19 24 Diabetes: Hemoglobin A1C 10/07/2024 10/08/2023, 01/10 SDOH Screening 10/07/2024 10/08/2023 Tobacco Screening 12/15/2024 12/16/2023 Mammogram 01/31/2025 08/04/2023, 02/11, 07/24/2022, Additional history exists Family Planning (PISQ) 05/14/2025 05/14/2024 Lipid Panel 10/07/2028 10/08/2023, 01/10, 06/15/2020 DTaP/Tdap/Td [...] Screening Completed 10/08/2023, 01/22/2023 Hepatitis A Vaccines Aged Out 10/08/2023, 01/23/20 23 No longer eligible based on patient's age to complete this topic Influenza Vaccine Completed 10/24/2023, , 11/22/2019, Additional [...] Procedure Name Priority Date/Time Associated Diagnosis Comments CULTURE, URINE, ROUTINE Routine 05/07/2024 3:34 PM EDT HM COLONOSCOPY Routine 11/06/2023 HIV 1/2 ANTIGEN/ANTIBODY, FOURTH [...] Recently Relevant to Health Maintenance Results * Culture, Urine, Routine (05/07/2024 3:34 PM EDT) Urine Urine specimen obtained by clean catch procedure / Unknown 05/07/2024 3:34 PM EDT 05/07/2024 4:46 PM EDT Comment:[facility] - 05/09/2024 7:34 AM EDT Escherichia coli Quant > 100,000 cfu/mL Escherichia coli: Ampicillin >=32(R) Escherichia coli: Cefazolin (Urine) 2(S) Escherichia coli: Cefepime <=0.12(S) Escherichia coli: Ceftriaxone <=0.25(S) Escherichia coli: Ciprofloxacin 0.5(I) Escherichia coli: Gentamicin <=1(S) Escherichia coli: Nitrofurantoin <=16(S) Escherichia coli: Trimethoprim/Sulfamethoxazole >=320(R) Specimen Source: Urine clean catch us Generic External Data Provider LAB MICROBIOLOGY - GENERAL ORDERABLES Final Result [facility] [address] [place] [phone] * (ABNORMAL) Colonoscopy (11/06/2023) Colonoscopy Abnormal( A) Normal Comment:rectal mass Historical Provider HEALTH MAINTENANCE Final Result * HIV-1/2 Antigen and Antibodies, Fourth Generation, with Reflexes (10/08/2023 10:52 AM EDT) HIV AB/AG Nonreactive Nonreactive [facility] Comment:HIV-1 p24 Ag and/or HIV-1/HIV-2 Ab not detected.A test result that is nonreactive does not exclude thepossibility of exposure to or infection with HIV-1 and/orHIV-2. Nonreactive results in this assay for individualswith prior exposure to HIV-1 and/or HIV-2 may be due toantigen and antibody levels that are below the limit ofdetection of this assay.The fotobabble HIV Ag/Ab Combo assay result andsupplemental assay results should be interpreted inconjunction with the patient's clinical presentation,history and other laboratory results. If the results areinconsistent with clinical evidence, additional testing issuggested to confirm the result. 10/08/2023 10:5 2 AM EDT 10/08/2023 10:52 AM EDT us Sneha Pecos MD LAB BLOOD ORDERABLES Final Result Performing Organization Address [facility]/ZIP Co de Phone Number [facility] [address] [place] [phone] * Hemoglobin A1c (10/08/2023 10:52 AM EDT) Hemoglobin A1c 5.7 <6.0 % [facility] Comment:Hemoglobin A1C Refer ence Range Adults: 4.8 - 6.0 % Non diabetic: < 6.0 % Goal: < 7.0 %Additional Action Suggested: > 8.0 %Note: Hemoglobin A1c results are invalid for patients with abnormal amounts of HbF. Blood transfusions may impact the HbA1c concentration in the patient sample. Estimated Average Glucose 117 mg/dL [facility] Comment:eAG = Estimated ave rage glucose which is %A1C expressed asaverage glucose, using the formula of the F6O-KwarifbYgcwldc Glucose study (ADAG), Diabetes Care, Vol.31,#8,Sep. 2007 10/08/2023 10:5 2 AM EDT 10/08/2023 10:52 AM EDT Sneha Li MD LAB BLOOD ORDERABLES Final Result Performing Organization Address [facility] Co de Phone Number [facility] [address] [place] [phone] * (ABNORMAL) Lipid Panel, Standard (10/08/2023 10:52 AM EDT) Triglycerides 161(H) <150 mg/dL [facility] Comment:Desirable Triglyceri de: less than 150 mg/dLBorderline High Triglyceride 150-199 mg/dLHigh Triglyceride: 200-499 mg/dLVery High Triglyceride: greater than or equal to 5OO mg/dL Cholesterol 97 <200 mg/dL [facility] Comment:Desirable Cholestero l: less than 200 mg/dLBorderline High Cholesterol: 200-239 mg/dLHigh Cholesterol: greater than 239 mg/dL LDL Cholesterol Calculated 40 <100 mg/dL [facility] Comment:Desirable LDL: less than 100 mg/dLNear Optimal/Above Optimal LDL: 110- 129 mg/dLBorderline High LDL: 130-159 mg/dLHigh LDL: 160-189 mg/dLVery High LDL: greater than or equal to 190 mg/dL HDL Cholesterol 25(L) >40 mg/dL [facility] Comment:Desirable HDL: great er than 40 mg/dL Note: This HDL assay may give artificially low results in patients with liver disease. 10/08/2023 10:5 2 AM EDT 10/08/2023 10:52 AM EDT us Sneha Li MD LAB BLOOD ORDERABLES Final Result [facility] [address] [place] [address] [phone] * BI Mammogram Screening Tomosynthesis Bilateral (08/04/2023 3:22 PM EDT) Anatomical Region Laterality Modality Breast Bilateral Mammography 08/04/2023 3:22 PM EDT Narrative 08/04/2023 4:49 PM EDT ? [facility] [place] ? [address] ?[place] [address] ? Mammography Report ? Signed ? Patient: Tono,Yanna T ?MR#: [id number] ?? 131 ? : 1970 ?Acct:[id number] ? Age/Sex: 52 / F ?ADM Date: 06/24/24 ? Loc: HO.MAMMO ? Attending Dr: Sneha Li MD ? Ordering Physician: Sneha Li MD ?Results: 2B ?? enign Findings ? Date of Service: 08/04/23 ?Follow Up: 1 Year From Orig ?? inal Mammogram ? Procedure(s): MM tomosynthesis screening BI ?? Accession Number(s): [id number] ? cc: Sneha Li MD ? EXAMINATION: ?? MM SCREENING DIGITAL BREAST TOMOSYNTHESIS, BILATERAL ? CLINICAL INFORMATION: ? Screening. Asymptomatic. ? COMPARISON: ?? Mammography: This study is compared with prior exams dating back to ?? 2018. ? TECHNIQUE: Procedure with a ?? Digital [...] by Nidhi Alonso MD in OV> ? 08/04/23 1645 ? DD/ 1522 ? TD/TT: ? Blow Down Helper: ? Procedure Note Donotuseinterpreter, Image - 08/04/2023 [facility] [address] [place] [address] Mammography Report Signed Patient: TonoMay TMR#: [id number] 131 : 1970Acct:[id number] Age/Sex: 52 / FADM Date: 08/04/23 Loc: HO.MAMMO Attending Dr: Sneha Li MD Ordering Physician: Sneha Li MDResults: 2B enign Findings Date of Service: 08/04/23Follow Up: 1 Year From Orig inal Mammogram Procedure(s): MM tomosynthesis screening BI Accession Number(s): [id number] cc: Sneha Li MD EXAMINATION: MM SCREENING DIGITAL BREAST TOMOSYNTHESIS, [...] in OV> 08/04/23 1645 DD/ 1522 TD/TT: Blow Down Helper: Sneha Li MD IMG BI PROCEDURES Final Re sult * Hepatitis C Antibody (02/23/2019 10:52 AM EST) Pathologist [facility] Hepatitis C Antibody Nonreactive Blood 02/23/2019 10:5 2 AM EST us Historical Provider POINT OF CARE TEST ENTER/ EDIT ORDERABLES Final Result * HPV E6/E7 RFLX JOSH 16 18/45 (02/19/2019 10:40 AM EST) Pathologist [facility] ADDITIONAL TESTING Not indicated () [facility] Comment: Test Performed by [employer] [place], [email or web address] [place], [address] [place], [place] Ananth Boston M.D., Ph.D., Director of Laboratories , [facility] [id number] HPV 16 RNA Test not performed [facility] HPV 18/45 RNA Test not performed [facility] HPV mRNA E6/E7 Not Detected NOT DETECTED [facility] Comment: This test was performed using the APTIMA(R) HPV Assay ([employer] This assay detects E6/E7 viral messenger RNA (mRNA) from 14 high-risk HPV types (16,18,31,33,35,39,45,51, 52,56,58,59,66,68). For additional information please refer to: http://education.InviteDEV/faq/GSN218s4 (This link is being provided for informational/ educational purposes only.) The analytical performance characteristics of this assay have been determined by [employer] [place], [place]. The modifications have not been cleared or approved by the FDA. This assay has been validated pursuant to the CLIA regulations and is used for clinical purposes. Please note: ??Effective 10/23/2015, HPV testing will be performed using [employer]'s APTIMA test which targets mRNA. Detecting mRNA instead of DNA, as in older methods, offers significant improvements in specificity. 02/19/2019 10:4 0 AM EST Sneha Li MD HISTORICAL/NON ORDERABLE L ABS Final Result [facility] [address] * Thinprep PAP and HPV nRNA E6/E7 (02/19/2019 12:00 AM EST) us Historical Provider MD LAB PATHOLOGY ORDERABLES Final Result IMAGING from Last 3 Months or Most Recently Relevant to Health Maintenance Insurance [facility] STAND ADULT Advance Directives Documents on File Type Date Recorded Patient Home Support Worker Expl anation Advance Directives and Living Will 06/25/2023 Health Care Proxy 06/25/23 Care Teams Med Dir Relationship Specialty Start Date End Date Guillermo, MD Sneha [address] [place] [address] PCP - General Family Medicine 10/02/18 Nona Hanna MD [address] [place] [address] [address] [place] [address] Urology 04/02/24 Dr. Lalito Miller MD [address] [address] Gynecologic Oncology 12/31/23 Dr. Samina Diaz [facility] Radiation Oncology 12/04/23 Dr. Pamela Cooper DO, Oncology 11/26/23 [facility] 11/20/23
--- OUTSIDE RECORDS SUMMARY | 2024-05-24 13:21 | XMS_ITS | Data Portability ---
Author Organization [employer] [employer] Address [address] [place] [address] Care Team Providers Care Master Scheduler Name Role Phone HIM CCA OTHER [facility] Referring Provider Assessment No assessment recorded. [...] SNOMED-CT Code Diagnosis ICD10 Code Diagnosis Note [id number] Buffy Youssef MD Main - instED [address] [place] [phone] 11/18/2023 18:21:55 11/18/2023 23:33:25 Retention of urine [id number] R33.9 As noted, we were called to see this patient regarding concerns of complicati ons of urinary catheter. Evaluation in the field was performed by my packer colleague, as noted above, I provided real-time [...] Noonan Member ID Guarantor Name 11/18/2023 1 [facility] - DOS ON OR AFTER 2022 - DUAL ELIGIBLE - PENITENTIARY OPTIONS AND ONE CARE (MEDICARE REPLACEMENT/ADV ANTAGE - HMO) Yanna Power [id number] Yanna Power Notes Date Note Type Note [...] .................. .................. .................. .................. .................. .................. ............... Foam Rubber Fabricator Note From Nunu Aponte: Sent to a call for a pt complaining of burning pain after her rocha catheter was pulled on today. SC8 arrives on scene, pt is alert and oriented, airway is patent. Pt is deaf and uses ASL and pt's sister serves as medical planner. Pt was hospitalized from 11/10-11/16, had a colostomy bag placed, and also a rohca cath due to urine retention. Pt states [...] ............... Disposition: Fulfilled Buffy Youssef MD [address] [facility], [place], [address], [email or web address] 11/18/2023 19:22:05 OBGyn Episode No OBEpisode recorded.
--- OUTSIDE RECORDS SUMMARY | 2024-05-24 13:22 | XMS_ITS | Encounter Summary ---
Author Organization [employer] Address [address] [facility] 7t [place] [address] Care Team Providers Care Chick Sexer Name Role Phone Sneha Li MD Primary Care Provider +1- [phone] Nona Hanna MD Unavailable Reason for Visit * Reason Comments Med Refill Encounter Details Date Type Department Care Team ([facility] st Contact Info) Description 01/28/2023 Refill [facility] MEDICINE [address] [place], [place] [phone] Sneha Li MD [address] [place], [place] [phone] Wheeze Social History Tobacco Use Types Packs/Day [...] Wheezing documented in this encounter Care Teams Chick Sexer Relationship Specialty Start Date End Date Sneha Li MD [address] [place] [address] PCP - General Family Medicine 10/02/18 Nona Hanna MD [address] [place] [address] Urology 04/02/24 Dr. Lalito Miller MD [address] [address] Gynecologic Oncology 12/31/[address] [facility] Radiation Oncology 12/04/23 Dr. Pamela Medrano DO, Oncology 11/26/23 [facility] 11/20/23 documented as of this encounter
--- OUTSIDE RECORDS SUMMARY | 2024-05-24 13:22 | XMS_ITS | Encounter Summary ---
Author Organization [employer] Address [address] [facility] 7t [place] [address] Care Team Providers Care Civil Transportation Engineer Name Role Phone Sneha Li MD Primary Care Provider +1- [phone] Nona Hanna MD Unavailable Encounter Details Date Type Department Care Team ([facility] st Contact Info) Description 03/19/2022 Abstract [facility] MEDICINE [address] [place], [place] [phone] Sneha Li MD [address] [place], [place] [phone] Social History Tobacco Use Types Packs/Day Years [...] on filedocumented in this encounter Care Teams Civil Transportation Engineer Relationship Specialty Start Date End Date [place], MD Sneha [address] [place] [address] PCP - General Family Medicine 10/02/18 Nona Hanna MD [address] [place] [address] Urology 04/02/24 Dr. Lalito Miller MD [address] [address] Gynecologic Oncology 12/31/23 Dr. Samina Diaz [facility] Radiation Oncology 12/04/23 Dr. Pamela Medrano DO, Oncology 11/26/23 [facility] 11/20/23 documented as of this encounter
--- OUTSIDE RECORDS SUMMARY | 2024-05-24 13:22 | XMS_ITS | Encounter Summary ---
Author Organization [employer] Address [address] [facility] 7t [place] [address] Care Team Providers Care Laryngologist Name Role Phone Sneha Li MD Primary Care Provider +1- [phone] Nona Hanna MD Unavailable Encounter Details Date Type Department Care Team (Late st Contact Info) Description 12/16/2023 Orders Only [facility] [address] [place], [place] [phone] Sneha Li MD [address] [place], [place] [phone] Metastatic squamous cell carcinoma involving anus with [...] documented as of this encounter Care Teams Laryngologist Relationship Specialty Start Date End Date Sneha Li MD [address] [place] [address] PCP - General Family Medicine 10/02/18 Nona Hanna MD [address] [place] [address] Drive [address] [place] [address] Urology 04/02/24 Dr. Lalito Miller MD [address] [address] Gynecologic Oncology 12/31/23 Dr. Samina Diaz [facility] Radiation Oncology 12/04/23 Dr. Pamela Medrano DO, Oncology 11/26/23 [facility] 11/20/23 documented as of this encounter
--- OUTSIDE RECORDS SUMMARY | 2024-05-24 13:22 | XMS_ITS ---
Author Organization [facility] Address [address] [place] [address] Care Team Providers Care Supervisor Bakery Sanitation Name Role Phone [place], Sneha AVILEZ Primary Care Provider +1- [phone] Active Problems Problem Noted Date Diagnosed Date Rectal mass 02/05/2024 Schizophrenia ([facility] V24, [facility] V28) 024 Primary squamous cell carcin comfort of anus ([facility] V24, [facility] V28) 12/16/2023 Cancer Staging:Clinical:Stage IIIC(cT4, cN1, cM0) - Signed by Samina Diaz MD on 01/01/2024 S/P colostomy ([facility] V24, [facility] V28) 024 Adult failure to thrive 10/24/2023 Overview (04/26/2024): -Will prescribe Ensure 10/24/23 Metastatic squamous cell car 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 -care transferred by [facility] oncology to [facility] -Seen by Dr. Shayne Brock, general surgery 12/16/2023 for consultation regarding management of locally advanced squamous cell cancer . This was requested by radiation oncology however they deferred to Dr. Pelayo at [facility] as he did the colostomy on her -seen 12/24/23 with Pamela Medrano DO, Hematology/Oncology at [facility]: pet scan which shows involvement of only [...] is Dr. Samina Diaz -12/25/23 seen by Fire Control Assistant Onc Dr Miller :The tumor is quite [...] examination to be formed under anesthesia. -12/29/23 air traffic systems technician onc examination under anesthesia with biopsies of cervix, vagina, vulva, and possible cystoscopy and rigid proctoscopy for further evaluation of the extent of malignancy. -coordinate with Dr. Samina Diaz to see if she would be available during the surgery to also assess the tumor and aid with radiation planning. -follow up with heme onc with Talia Blanchard -follow up with air traffic systems technician onc Paul Yanez -Pain medication sent by [...] rectal mass -Oncology note 03/23/[address] Medrano, DO: pt to start concurrent radiation and [...] started on 02/12/2024. Med onc Dr. Medrano. Other specified anemias 10/08/2023 Overview (04/26/2024): Lab Results Component Value Date HGB 10.4 (L) 10/08/2023 HGB 13.7 01/22/2023 Pt seeing GI and heme Major depressive disorder, r ecurrent, severe with psychotic symptoms (CMS/HCC V24, CMS/HCC V28) 09/03/2023 Overview (04/26/2024): See diagnosis of psychosis. Other constipation 06/25/2023 Other hemorrhoids 06/25/2023 Schizophrenia ([facility] V24, [facility] V28) 024 Congenital deafness 03/21/2023 COPD (chronic obstructive pu lmonary disease) ([facility] V24, [facility] V28) 03/21/2023 Nicotine dependence 03/21/2023 Class 1 obesity 01/22/2023 Status post laparoscopic cholecystectomy 023 Dyslipidemia 07/31/2022 Overview (04/26/2024): Lab Results Component Value Date TRIG 130 01/22/2023 CHOL 132 01/22/2023 LDLCHOLCAL 77 01/22/2023 HDL 29 (L) 01/22/2023 -continue lifestyle modifications Low vitamin D level 07/31/2022 Overview (04/26/2024): Lab Results Component Value Date [id number] 10.6 (L) 01/22/2023 -vit D 50,000 weekly started 01/22/2023 -ordered Vitamin D level ordered 10/08/23 Subareolar mass of left breast 07/31/2022 Overview (04/26/2024): Patient given empiric abx for periductal mastitis [...] also appears stable and is considered benign. Bilateral deafness 07/31/2022 Overview (04/26/2024): -Has services with [employer]. -Needs ASL interpreters for all speciality appointments. Cigarette nicotine dependence 07/31/2022 Overview (04/26/2024): In precontemplative stages of quitting. Declines medication. -Cigg/day: 20 -Age started: 17 -Total years smokin -Pack year history: 37 Encouraged smoking cessation resources such as pharmacomtherapy, [facility] smoking cessation group, and [facility] pharmacy smoking cessation clinic. She will try patches and lozenge -LDCT: 11/08/22 revealed enlarged right pretracheal node 2.2 cm, otherwise unremarkable, referred to ENT but soonest apt is 1 year out from study, referred to oncology 06/25/23 -reordered LDCT 10/08/23 Gastroesophageal reflux disease without esophagi tis 07/31/2022 Knee pain 07/31/2022 Overview (04/26/2024): Referral to PT done 07/31/2022. Chronic psychosis (CMS/HCC V24, CMS/HCC V28) Overview (04/26/2024): Dx schizoaffective disorder. Pt was admitted for psychiatric admission on 03/24/2019. ER visit for hallucination 01/14/2021. Hospitalization for hallucinations 09/2023.Reports command hallucinations under control with current med regimen. - Continue q3 mo f/u with Dr. Peterson. -Her caseworkr at [facility] is [employer] #[phone] -Continue with therapist Cara Ramsay. -Prescribed 0.5 mg Lorazepam, BID on recent admission to [facility] on 08/27/23 and Risperidone was increased to 4 mg, daily -Was prescribed Hydroxyzine as well, but per pt psychiatrist stopped after discharge. -Follows up with psychiatrist regularly Leukocytosis 03/28/2021 Overview (04/26/2024): Pt notes white count 15-23 k with [...] 08/27/23 WBC 19.1 k/mm3 -ordered CBC 10/08/23 Moderate chronic obstructive pulmonary disease ([facility] V24, [facility] V28) 03/28/2021 Overview (04/26/2024): PFTS 10/2018 Moderate obstructive ventilatory defect with significant improvement with bronchodilator therapy. Positive bronchodilator response. -Stop Flovent and start Advair 500 BID 07/31/2022. -Rx albuterol prn -flu vac 12/2018 -pneumovax 12/2018 -schedule for COVID booster -counseled smoking cessation. Current Oncology Plans Fluorouracil / MitoMYcin (D1, D29) with Concurrent Radiation* Plan Start Date: 12/21/2023 Plan Provider:Arlen Medrano, DO Linked Problems Primary squamous cell carcin comfort of anus ([facility] V24, [facility] V28) Treatment Medications 5-FU (ADRUCIL) chemo infusio n [...] 03/03/2024 Hypotension 02/06/2024 02/10/2024 Hyponatremia 02/06/2024 02/10/2024 Onychomycosis 03/21/2023 12/25/2023
--- OUTSIDE RECORDS SUMMARY | 2024-05-24 13:22 | XMS_ITS | Encounter Summary ---
Author Organization [employer] Address [address] [facility] 7t [place] [address] Care Team Providers Care Fusion Juncture Grinder Name Role Phone Sneha Li MD Primary Care Provider +1- [phone] Nona Hanna MD Unavailable Reason for Visit * Reason Onset Date Comments Nurse Triage 01/01/2023 Encounter Details Date Type Department Care Team ([facility] st Contact Info) Description 01/01/2023 Telephone [facility] MEDICINE [address] [place], [place] [phone] Sneha Li MD [address] [place], [place] [phone] Nurse Triage Social History Tobacco Use Types [...] 01/01/2023 2:55 PM EST Triage call with senior nuclear medicine technologist ID [id number]. Pt advocate Shayne Golden is [...] requested. Earliest apt is 01/22/23 at 1100am. senior nuclear medicine technologist is needed at time of visit. Protocol [...] The caller accepted this outcome Please call [phone] documented in this encounter Plan of Treatment Not on file documented as of this encounter Visit Diagnoses Not on filedocumented in this encounter Care Teams Fusion Juncture Grinder Relationship Specialty Start Date End Date [place], MD Sneha [address] [place] [address] PCP - General Family Medicine 10/02/18 Nona Hanna MD [address] [facility] [address] [place] [address] Urology 04/02/24 Dr. Lalito Miller MD [address] [address] Gynecologic Oncology 12/31/23 Dr. Samina Diaz [facility] Radiation Oncology 12/04/23 Dr. Pamela Medrano DO, Oncology 11/26/23 [facility] 11/20/23 documented as of this encounter
--- OUTSIDE RECORDS SUMMARY | 2024-05-24 13:22 | XMS_ITS | Encounter Summary ---
Author Organization [employer] Address [address] [facility] 7t [place] [address] Care Team Providers Care Placement Interviewer Name Role Phone Sneha Li MD Primary Care Provider +1- [phone] Nona Hanna MD Unavailable Encounter Details Date Type Department Care Team ([facility] st Contact Info) Description 01/30/2024 Orders Only [facility] MEDICINE [address] [place], [place] [phone] Sneha Li MD [address] [place], [place] [phone] Metastatic squamous cell carcinoma involving anus with [...] documented as of this encounter Care Teams Placement Interviewer Relationship Specialty Start Date End Date Sneha Li MD [address] [place] [address] PCP - General Family Medicine 10/02/18 Nona Hanna MD [address] [place] [address] Drive [address] [place] [address] Urology 04/02/24 Dr. Lalito Miller MD [address] [address] Gynecologic Oncology 12/31/23 Dr. Samina Diaz [facility] Radiation Oncology 12/04/23 Dr. Pamela Medrano DO, Oncology 11/26/23 [facility] 11/20/23 documented as of this encounter
--- OUTSIDE RECORDS SUMMARY | 2024-05-24 13:22 | XMS_ITS | Encounter Summary ---
Author Organization [employer] Address [address] [facility] 7t [place] [address] Care Team Providers Care Kitman Name Role Phone Sneha Li MD Primary Care Provider +1- [phone] Nona Hanna MD Unavailable Reason for Visit * Reason Onset Date Comments Med Refill 05/21/2024 Encounter Details Date Type Department Care Team (Late st Contact Info) Description 05/21/2024 Refill [facility] MEDICINE [address] [place], [place] [phone] Sneha Li MD [address] [place], [place] [phone] Metastatic squamous cell carcinoma involving anus with [...] documented as of this encounter Care Teams Kitman Relationship Specialty Start Date End Date Sneha Li MD [address] [place] [address] PCP - General Family Medicine 10/02/18 Nona Hanna MD [address] [place] [address] Urology 04/02/24 Dr. Lalito Miller MD [address] [address] Gynecologic Oncology 12/31/23 Dr. Samina Diaz [facility] Radiation Oncology 12/04/23 Dr. Pamela Medrano DO, Oncology 11/26/23 [facility] 11/20/23 documented as of this encounter
--- OUTSIDE RECORDS SUMMARY | 2024-05-24 13:22 | XMS_ITS | Clinical Summary ---
Author Organization [facility] Address [address] [place] [address] Care Team Providers Care Diamond Expert Name Role Phone Sneha Li MD Primary Care Provider [phone] Allergies No known active allergies Medications fluticasone propion-salmetero L (ADVAIR DISKUS) 500-50 mcg/dose diskus inhaler Inhale 500 mcg by mouth 2 times daily. 4 Active ferrous sulfate 325 mg (65 mg elemental iron) tablet Take 1 tablet (325 mg total) by mouth 2 times daily. 4 Active folic acid (FOLVITE) 1 mg tablet Take 1 tablet (1,000 mcg total) by mouth daily. 4 Active hydrocortisone (ANUSOL-HC) 2.5 % rectal cream 4 Active LORazepam (ATIVAN) 0.5 mg tablet Take 1 tablet (0.5 mg total) by mouth 2 (two) times a day if needed for anxiety. Active melatonin 3 mg tablet Take 2 tablets (6 mg total) by mouth at bedtime as needed. 4 Active risperiDONE (RisperDAL) 4 mg tablet Take 1 tablet (4 mg total) by mouth at bedtime. Active risperiDONE (RisperDAL) 1 mg tablet Take 1 tablet (1 mg total) by mouth 2 (two) times a day. 3 Active oxyCODONE (OxyCONTIN) 20 mg 12 hr [...] times a day before meals. 90 each 4 Active ondansetron (ZOFRAN) 8 mg tabletIndications :prevention of chemotherapy-vidya tomeka nausea and vomiting Take 1 tablet (8 mg total) by mouth every 8 (eight) hours if needed for nausea or vomiting. Active fludrocortisone (FLORINEF) 0.1 mg tablet Take 1 tablet (0.1 mg total) by mouth 1 (one) time each day. 30 each 5 Active silver sulfADIAZINE (SILVADENE, SSD) 1 % cream Apply topically 2 (two) times a day. Apply to affected area 2-3 times per day 400 g 5 Active senna (SENOKOT) 8.6 mg tablet Take 1 tablet (8.6 mg total) by mouth 1 (one) time each day if needed for constipation. 30 each 11 5 05/08/19 26 Active Active Problems Problem Noted Date Diagnosed Date Rectal mass 02/05/2024 Schizophrenia ([facility] V24, [facility] V28) 024 Primary squamous cell carcin comfort of anus ([facility] V24, [facility] V28) 12/16/2023 Cancer Staging:Clinical:Stage IIIC(cT4, cN1, cM0) - Signed by Samina Diaz MD on 01/01/2024 S/P colostomy ([facility] V24, [facility] V28) 024 Adult failure to thrive 10/24/2023 Overview (04/26/2024): -Will prescribe Ensure 10/24/23 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 -care transferred by [facility] oncology to [facility] -Seen by Dr. Shayne Brock, general surgery 12/16/2023 for consultation regarding management of locally advanced squamous cell cancer . This was requested by radiation oncology however they deferred to Dr. Pelayo at [facility] as he did the colostomy on her -seen 12/24/23 with Pamela Cooper DO, Hematology/Oncology at [facility]: pet scan which shows involvement of [...] is Dr. Samina Diaz -12/25/23 seen by [facility] Dr Miller :The tumor is quite [...] examination to be formed under anesthesia. -12/29/23 legal transcriptionist onc examination under anesthesia with biopsies of cervix, vagina, vulva, and possible cystoscopy and rigid proctoscopy for further evaluation of the extent of malignancy. -coordinate with Dr. Samina Diaz to see if she would be available during the surgery to also assess the tumor and aid with radiation planning. -follow up with heme onc with Talia Blanchard -follow up with legal transcriptionist onc Paul Yanez -Pain medication sent by [...] started on 02/12/2024. Med onc Dr. Cooper. Other specified anemias 10/08/2023 Overview (04/26/2024): Lab Results Component Value Date HGB 10.4 (L) 10/08/2023 HGB 13.7 01/22/2023 Pt seeing GI and heme Major depressive disorder, r ecurrent, severe with psychotic symptoms ([facility] V24, [facility] V28) 09/03/2023 Overview (04/26/2024): See diagnosis of psychosis. Other constipation 06/25/2023 Other hemorrhoids 06/25/2023 Schizophrenia ([facility] V24, [facility] V28) 024 Congenital deafness 03/21/2023 COPD (chronic obstructive pu lmonary disease) ([facility] V24, [facility] V28) 03/21/2023 Nicotine dependence 03/21/2023 Class 1 obesity 01/22/2023 Status post laparoscopic cholecystectomy 023 Dyslipidemia 07/31/2022 Overview (04/26/2024): Lab Results Component Value Date TRIG 130 01/22/2023 CHOL 132 01/22/2023 LDLCHOLCAL 77 01/22/2023 HDL 29 (L) 01/22/2023 -continue lifestyle modifications Low vitamin D level 07/31/2022 Overview (04/26/2024): Lab Results Component Value Date [id number] 10.6 (L) 01/22/2023 -vit D 50,000 weekly [...] deafness 07/31/2022 Overview (04/26/2024): -Has services with [facility]. -Needs ASL interpreters for all speciality appointments. Cigarette nicotine dependence 07/31/2022 Overview (04/26/2024): In precontemplative stages of quitting. Declines medication. -Cigg/day: 20 -Age started: 17 -Total years smokin -Pack year history: 37 Encouraged smoking cessation resources such as pharmacomtherapy, [facility] smoking cessation group, and [facility] pharmacy smoking cessation clinic. She will try [...] [place]. -Her caseworkr at [facility] is Matt #[phone] -Continue with therapist Cara Ramsay. -Prescribed 0.5 mg Lorazepam, BID on recent admission to [facility] on 08/27/23 and Risperidone was increased [...] CBC 10/08/23 Moderate chronic obstructive pulmonary disease (CMS/HCC V24, CMS/HCC V28) 03/28/2021 Overview (04/26/2024): PFTS 10/2018 Moderate [...] 02/10/2024 Hyponatremia 02/06/2024 02/10/2024 Onychomycosis 03/21/2023 12/25/2023 Encounters Date Type Department Care Team Description 05/07/2024 Telephone [facility] Hematology Oncology [address] [place] [phone] Arlen Cooper DO 04/27/2024 3:00 PM EDT - 04/27/2024 11:59 PM EDT Hospital Encounter [facility] Radiation Oncology [address] [phone] Samina Diaz MD 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 V24, CMS/HCC V28) (Primary Dx) Discharge Disposition: Home or Self Care 04/13/2024 1:06 PM EST - 04/13/2024 11:59 PM EST Hospital Encounter [facility] Radiation Oncology [address] [place] [phone] Samina Diaz MD Primary squamous cell carcinoma of anus (CMS/HCC V24, CMS/HCC V28) (Primary Dx) Discharge Disposition: Home or Self Care 03/31/2024 1:30 PM EST - 03/31/2024 11:59 PM EST Hospital Encounter [facility] Radiation Oncology [address] [place] [phone] Nickie Duron, HERB Primary squamous cell carcinoma of anus (CMS/HCC V24, [facility]/HCC V28) (Primary Dx) Discharge Disposition: Home or Self Care 03/31/2024 12:58 PM EST - 03/31/2024 11:59 PM EST Hospital Encounter [facility] Radiation Oncology [address] [place] [phone] Discharge Disposition: Home or Self Care 03/26/2024 2:00 PM EST - 03/26/2024 11:59 PM EST Hospital Encounter [facility] Infusion Center [address] [place] [phone] Arlen Cooper, Rectal mass (Primary Dx); Primary squamous cell carcinoma of anus (CMS/HCC V24, CMS/HCC V28) Discharge Disposition: Home or Self Care 03/26/2024 1:20 PM EST - 03/26/2024 11:59 PM EST Hospital Encounter [facility] Radiation Oncology [address] [place] [phone] Samina Diaz MD Primary squamous cell carcinoma of anus (CMS/HCC V24, CMS/HCC V28) (Primary Dx) Discharge Disposition: Home or Self Care 03/26/2024 1:06 PM EST - 03/26/2024 11:59 PM EST Hospital Encounter [facility] Radiation Oncology [address] [place] [phone] Discharge Disposition: Home or Self Care 03/25/2024 1:03 PM EST - 03/25/2024 11:59 PM EST Hospital Encounter [facility] Radiation Oncology [address] [place] [phone] Discharge Disposition: Home or Self Care 03/24/2024 1:13 PM EST - 03/24/2024 11:59 PM EST Hospital Encounter [facility] Radiation Oncology [address] [place] [phone] Discharge Disposition: Home or Self Care 03/24/2024 11:00 AM EST - 03/24/2024 11:59 PM EST Hospital Encounter [facility] Infusion Center [address] [place] [phone] Arlen Cooper DO Rectal mass (Primary Dx); Primary squamous cell carcinoma of anus (CMS/HCC V24, CMS/HCC V28) Discharge Disposition: Home or Self Care 03/23/2024 1:15 PM EST - 03/23/2024 11:59 PM EST Hospital Encounter [facility] Radiation Oncology [address] [place] [phone] Discharge Disposition: Home or Self Care 03/22/2024 1:15 PM EST - 03/22/2024 11:59 PM EST Hospital Encounter [facility] Radiation Oncology [address] [place] [phone] Discharge Disposition: Home or Self Care 03/22/2024 10:45 AM EST Office Visit [facility] Hematology Oncology [address] [place] [phone] Arlen Cooper DO Anal cancer (CMS/HCC V24, CMS/HCC V28) (Primary Dx); Port-A-Cath in place; Cancer associated pain; Mild anemia 03/22/2024 10:00 AM EST - 03/22/2024 11:59 PM EST Hospital Encounter [facility] Infusion Center [address] [place] [phone] Arlen Cooper DO Primary squamous cell carcinoma of anus (CMS/HCC V24, CMS/HCC V28) (Primary Dx) Discharge Disposition: Home or Self Care 03/19/2024 1:20 PM EST - 03/19/2024 11:59 PM EST Hospital Encounter [facility] Radiation Oncology [address] [place] [phone] Samina Diaz MD Primary squamous cell carcinoma of anus (CMS/HCC V24, CMS/HCC V28) (Primary Dx) Discharge Disposition: Home or Self Care 03/19/2024 1:11 PM EST - 03/19/2024 11:59 PM EST Hospital Encounter [facility] Radiation Oncology [address] [place] [phone] Discharge Disposition: Home or Self Care 03/18/2024 12:47 PM EST - 03/18/2024 11:59 PM EST Hospital Encounter [facility] Radiation Oncology [address] [place] [phone] Discharge Disposition: Home or Self Care 03/17/2024 12:55 PM EST - 03/17/2024 11:59 PM EST Hospital Encounter [facility] Radiation Oncology [address] [place] [phone] Discharge Disposition: Home or Self Care 03/16/2024 1:08 PM EST - 03/16/2024 11:59 PM EST Hospital Encounter [facility] Radiation Oncology [address] [place] [phone] Discharge Disposition: Home or Self Care 03/15/2024 1:15 PM EST - 03/15/2024 11:59 PM EST Hospital Encounter [facility] Radiation Oncology [address] [place] [phone] Discharge Disposition: Home or Self Care 03/12/2024 1:20 PM EST - 03/12/2024 11:59 PM EST Hospital Encounter [facility] Radiation Oncology [address] [place] [phone] Samina Diaz MD Primary squamous cell carcinoma of anus (CMS/HCC V24, CMS/HCC V28) (Primary Dx) Discharge Disposition: Home or Self Care 03/12/2024 1:05 PM EST - 03/12/2024 11:59 PM EST Hospital Encounter [facility] Radiation Oncology [address] [place] [phone] Discharge Disposition: Home or Self Care 03/11/2024 1:11 PM EST - 03/11/2024 11:59 PM EST Hospital Encounter [facility] Radiation Oncology [address] [place] [phone] Discharge Disposition: Home or Self Care 03/10/2024 Telephone [facility] Radiation Oncology [address] [place] [phone] Zoila Villegas RN 03/09/2024 1:02 PM EST - 03/09/2024 11:59 PM EST Hospital Encounter [facility] Radiation Oncology [address] [place] [phone] Discharge Disposition: Home or Self Care 03/08/2024 1:15 PM EST - 03/08/2024 11:59 PM EST Hospital Encounter [facility] Radiation Oncology [address] [place] [phone] Discharge Disposition: Home or Self Care 03/05/2024 1:20 PM EST - 03/05/2024 11:59 PM EST Hospital Encounter [facility] Radiation Oncology [address] [place] [phone] Samina Diaz MD Primary squamous cell carcinoma of anus (CMS/HCC V24, CMS/HCC V28) (Primary Dx) Discharge Disposition: Home or Self Care 03/05/2024 1:15 PM EST - 03/05/2024 11:59 PM EST Hospital Encounter [facility] Radiation Oncology [address] [place] [phone] Discharge Disposition: Home or Self Care 03/04/2024 1:15 PM EST - 03/04/2024 11:59 PM EST Hospital Encounter [facility] Radiation Oncology [address] [place] [phone] Discharge Disposition: Home or Self Care 03/03/2024 12:45 PM EST - 03/03/2024 11:59 PM EST Hospital Encounter [facility] Radiation Oncology [address] [place] [phone] Discharge Disposition: Home or Self Care 03/03/2024 Telephone [facility] Radiation Oncology [address] [place] [phone] Yola Finley, CHELI clamp catheter 03/02/2024 1:15 PM EST - 03/02/2024 11:59 PM EST Hospital Encounter [facility] Radiation Oncology [address] [place] [phone] Discharge Disposition: Home or Self Care 03/01/2024 8:12 AM EST - 03/01/2024 11:59 PM EST Hospital Encounter [facility] Radiation Oncology [address] [place] [phone] Discharge Disposition: Home or Self Care 02/27/2024 1:20 PM EST - 02/27/2024 11:59 PM EST Hospital Encounter [facility] Radiation Oncology [address] [place] [phone] Samina Diaz MD Primary squamous cell carcinoma of anus (CMS/HCC V24, CMS/HCC V28) (Primary Dx) Discharge Disposition: Home or Self Care 02/27/2024 1:15 PM EST - 02/27/2024 11:59 PM EST Hospital Encounter [facility] Radiation Oncology [address] [place] [phone] Discharge Disposition: Home or Self Care 02/26/2024 1:15 PM EST - 02/26/2024 11:59 PM EST Hospital Encounter [facility] Radiation Oncology [address] [place] [phone] Discharge Disposition: Home or Self Care 02/25/2024 12:16 PM EST - 02/25/2024 11:59 PM EST Hospital Encounter [facility] Radiation Oncology [address] [place] [phone] Discharge Disposition: Home or Self Care 02/24/2024 1:20 PM EST - 02/24/2024 11:59 PM EST Hospital Encounter [facility] Radiation Oncology [address] [place] [phone] Samina Diaz MD Primary squamous cell carcinoma of anus ([facility] V24, [facility] V28) (Primary Dx) Discharge Disposition: Home or Self Care 02/24/2024 1:15 PM EST - 02/24/2024 11:59 PM EST Hospital Encounter [facility] Radiation Oncology [address] [place] [phone] Discharge Disposition: Home or Self Care 02/17/2024 2:11 PM EST - 03/06/2024 1:20 PM EST Hospital Encounter [facility] Medical Surgical Unit [address] [place] [phone] Carlos Malave MD Bukalo, Nermina, MD Seralathan, Manikandan, MD Bell, Alistair A, MD Mohani, Priya, MD Dehydration (Primary Dx); Generalized abdominal pain; Diabetic ulcer of right buttock ([facility] V24, [facility] V28); Hyponatremia; Anal cancer ([facility] V24, [facility] V28); Dehydration with hyponatremia; Weakness generalized Discharge Disposition: Home-Health Care [facility] from Last 3 Months Surgical History Surgery Date Site/Laterality Comments CHOLECYSTECTOMY COLOSTOMY FOOT SURGERY TUBAL LIGATION APPENDECTOMY Medical History Medical History Date Comments COPD (chronic obstructive pu lmonary disease) ([facility] V24, [facility] V28) 03/21/2023 DX:COPD (chronic o bstructive pulmonary disease) ([facility]) Leukocytosis 03/21/2023 DX:Leukocytosis Cancer of anus ([facility] V24, [facility] V28) Congenital deafness 03/21/2023 Low vitamin D level 07/31/2022 Nicotine dependence 03/21/2023 Schizophrenia ([facility] V24, [facility] V28) 12/25/2023 Port-A-Cath in place Schizo affective schizophren ia ([facility] V24, [facility] V28) Social History Tobacco Use Types Packs/Day Years [...] Sign Reading Time Taken Comments Blood Pressure 98/55 04/27/2024 3:08 PM EDT Pulse 102 04/27/2024 3:08 PM EDT Temperature 35.9 ??C (96.6 ??F) 04/27/2024 3:08 PM ED T Respiratory Rate 16 04/27/2024 3:08 PM EDT Oxygen Saturation 98% 04/27/2024 3:08 PM EDT Inhaled Oxygen Concentration - - Weight 50.4 kg (111 lb 3.2 oz) 04/27/2024 3:08 P M EDT Height 157.5 cm (5' 2 ) 02/17/2024 9:11 PM EST Body Mass Index 20.34 02/17/2024 9:11 PM EST Plan of Treatment Upcoming Encounters Date Type Department Care Team (Late st Contact Info) Description 05/31/2024 1:30 PM EDT [facility]ointment [facility] [address] [phone] 05/31/2024 2:00 PM EDT Appointment [facility] Ultrasound [address] [place] [phone] 06/14/2024 1:30 PM EDT Office Visit [facility] Hematology Oncology [address] [place] [phone] Arlen Cooper, DO [address] [place] [phone] 06/29/2024 1:30 PM EDT Appointment [facility] Radiation Oncology [address] [phone] Samina Diaz MD [address] [place] [address] Health Maintenance Due Date Last Done Comments [...] HIV Screening Completed 10/08/2023 Hepatitis A Vaccines Aged Out 10/08/2023, 01/23/20 [...] age to complete this topic Meningococcal B Vaccine Aged Out No l onger eligible based on patient's age to complete this topic RSV Immunization Patients Under 20 months Aged Out No longer eligible based on patient's age to complete this topic Varicella Vaccines Aged Out No longer eligible based on patient's age to complete this topic Medical Devices Implanted Type Area Precision Lens Polisher Device Identifier Shelf Expiration Date Model / Serial / Lot Kit Surgiflo W 2000 Units Ster Lyo - Sn/A - [id number] Implanted:Qty: 1 on 2023 by Lalito Miller MD at [facility] Hemostasis N/A: Vagina [employer] 12/10/2024 2994 / N/A / [id number] Procedures Procedure Name Priority Date/Time Associated Diagnosis [...] EST Primary squamous cell carcinoma of anus (CMS/HCC V24, CMS/HCC V28) COMPREHENSIVE METABOLIC PANEL Routine 03/22/2024 11:39 AM EST Primary squamous cell carcinoma of anus (CMS/HCC V24, CMS/HCC V28) CBC AND DIFFERENTIAL Routine 03/22/2024 11:39 AM EST Primary squamous cell carcinoma of anus (CMS/HCC V24, CMS/HCC V28) RAD ONC MSQ TREATMENT SUMMARY Routine 03/19/2024 [...] EST MAGNESIUM Routine 02/24/2024 6:24 AM EST from Last 3 Months Results * Rad [...] 03/31/2024 1:33 PM EST Physician Radiation Oncology MD [...] 1:26 PM EST Physician Radiation Oncology RADIATION ONCSENTHIL GY ORDERABLES Final Result Performing Organization Address City/[facility] Co de Phone Number [facility] RADIATION ONCOLOGY [...] 11:39 AM EST) Only the most recent of3 resultswithin the time period is included. WBC 5.4 4.8 - 10.8 K/mcL LAB HEMETOLOGY METHOD 03/22/2024 12:[address] [facility] RBC 3.70(L) 3.80 - 4.80 M/mcL LAB HEMETOLOGY METHOD 03/22/2024 12:[address] [facility] Hemoglobin 9.8(L) 11.5 - 16.0 g/dL LAB HEMETOLOGY METHOD 03/22/2024 12:[address] [facility] Hematocrit 31.7(L) 35.0 - 47.0 % LAB HEMETOLOGY METHOD 03/22/2024 12:[address] [facility] MCV 85.0 79.0 - 98.0 FL LAB HEMETOLOGY METHOD 03/22/2024 12:[address] [facility] MCH 26.3(L) 27.0 - 32.0 pcg LAB HEMETOLOGY METHOD 03/22/2024 12:[address] [facility] MCHC 30.9(L) 32.0 - 37.0 g/dL LAB HEMETOLOGY METHOD 03/22/2024 12:[address] [facility] RDW 24.9(H) 11.0 - 15.0 % LAB HEMETOLOGY METHOD 03/22/2024 12:[address] [facility] Platelets 216 130 - 400 K/mcL LAB HEMETOLOGY METHOD 03/22/2024 12:[address] [facility] MPV 10.0 7.0 - 11.0 FL LAB HEMETOLOGY METHOD 03/22/2024 12:[address] [facility] NRBC 0.0 <1.0 % LAB HEMETOLOGY METHOD 03/22/2024 12:[address] [facility] NRBC Absolute 0.00 <0.10 K/mcL LAB HEMETOLOGY METHOD 03/22/2024 12:[address] [facility] Neutrophils Relative 77.9 % LAB HEMETOLOGY METHOD 03/22/2024 12:[address] [facility] Lymphocytes Relative 7.6 % LAB HEMETOLOGY METHOD 03/22/2024 12:[address] [facility] Monocytes Relative 11.2 % LAB HEMETOLOGY METHOD 03/22/2024 12:[address] [facility] Eosinophils Relative 2.2 % LAB HEMETOLOGY METHOD 03/22/2024 12:[address] [facility] Basophils Relative 0.4 % LAB HEMETOLOGY METHOD 03/22/2024 12:[address] [facility] Immature Granulocytes Relative 0.7 % LAB HEMETOLOGY METHOD 03/22/2024 12:[address] [facility] Neutrophils Absolute 4.18 1.50 - 7.00 K/mcL LAB HEMETOLOGY METHOD 03/22/2024 12:[address] [facility] Lymphocytes Absolute 0.41(L) 1.00 - 5.00 K/mcL LAB HEMETOLOGY METHOD 03/22/2024 12:[address] [facility] Monocytes Absolute 0.60 0.20 - 1.00 K/mcL LAB HEMETOLOGY METHOD 03/22/2024 12:[address] [facility] Eosinophils Absolute 0.12 0.00 - 0.50 K/mcL LAB HEMETOLOGY METHOD 03/22/2024 12:[address] [facility] Basophils Absolute 0.02 0.00 - 0.20 K/mcL LAB HEMETOLOGY METHOD 03/22/2024 12:[address] [facility] Immature Granulocytes Absolute 0.04(H) 0.00 - 0.03 K/mcL LAB HEMETOLOGY METHOD 03/22/2024 12:[address] [facility] Blood Blood sample taken from central line / Unknown Existing Catheter / Unknown 03/22/2024 11:39 AM EST 03/22/2024 11:51 AM EST us Arlen Cooper DO LAB BLOOD ORDERABLES Final Result [facility] [address] [place] [address], [place] [phone] * (ABNORMAL) Comprehensive metabolic panel (03/22/2024 11:39 AM EST) Sodium 134 133 - 145 mmol/L LAB CHEMISTRY METHOD 03/22/2024 1:[address] [facility] Potassium 4.0 3.5 - 5.5 mmol/L LAB CHEMISTRY METHOD 03/22/2024 1:[address] [facility] Chloride 101 96 - 110 mmol/L LAB CHEMISTRY METHOD 03/22/2024 1:[address] [facility] CO2 27 21 - 32 mmol/L LAB CHEMISTRY METHOD 03/22/2024 1:[address] [facility] Anion Gap 6 3 - 11 LAB CHEMISTRY METHOD 03/22/2024 1:[address] [facility] Glucose 121(H) 70 - 100 mg/dL LAB CHEMISTRY METHOD 03/22/2024 1:[address] [facility] BUN 6 5 - 25 mg/dL LAB CHEMISTRY METHOD 03/22/2024 1:[address] [facility] Creatinine 0.56 0.50 - 1.10 mg/dL LAB CHEMISTRY METHOD 03/22/2024 1:[address] [facility] eGFR 111 >=60 mL/min/1. 73m2 LAB CHEMISTRY METHOD 03/22/2024 1:[address] [facility] Comment:Calculation based on the??Chronic Kidney Disease Epidemiology Collaboration (CKD-EPI) equation refit??without adjustment for race. BUN/Creatinine Ratio 10.7 LAB CHEMISTRY METHOD 03/22/2024 1:[address] [facility] Calcium 9.1 8.5 - 10.5 mg/dL LAB CHEMISTRY METHOD 03/22/2024 1:[address] [facility] AST (SGOT) 13 10 - 42 unit/L LAB CHEMISTRY METHOD 03/22/2024 1:[address] [facility] ALT (SGPT) 15 10 - 60 unit/L LAB CHEMISTRY METHOD 03/22/2024 1:[address] [facility] Alkaline Phosphatase 117 42 - 121 unit/L LAB CHEMISTRY METHOD 03/22/2024 1:[address] [facility] Total Protein 6.6 6.0 - 8.0 g/dL LAB CHEMISTRY METHOD 03/22/2024 1:[address] [facility] Albumin 2.7(L) 3.2 - 5.0 g/dL LAB CHEMISTRY METHOD 03/22/2024 1:[address] [facility] Comment:Results verified by repeat testing Total Bilirubin 0.3 0.0 - 1.4 mg/dL LAB CHEMISTRY METHOD 03/22/2024 1:[address] [facility] Blood Blood sample taken from central line / Unknown Existing Catheter / Unknown 03/22/2024 11:39 AM EST 03/22/2024 11:51 AM EST us Arlen Cooper DO LAB BLOOD ORDERABLES Final Result [facility] [address] [place] [address], * Rad Onc Msq Treatment Summary (03/19/2024 [...] GY ORDERABLES Final Result Performing Organization Address [facility] Co de Phone Number [facility] RADIATION ONCOLOGY [...] 1:32 PM EST Physician Radiation Oncology RADIATION ONCSENTHIL [...] GY ORDERABLES Final Result Performing Organization Address City/[facility] Co de Phone Number [facility] RADIATION ONCOLOGY [...] 1:42 PM EST Physician Radiation Oncology RADIATION ONCSENTHIL GY ORDERABLES Final Result Performing Organization Address City/[facility]/ZIP Co de Phone Number [facility] RADIATION ONCOLOGY [...] 1:45 PM EST Physician Radiation Oncology RADIATION ONCSENTHIL GY ORDERABLES Final Result Performing Organization Address City/[facility] Co de Phone Number [facility] RADIATION ONCOLOGY [...] 1:54 PM EST Physician Radiation Oncology RADIATION ONCSENTHIL GY ORDERABLES Final Result Performing Organization Address City/[facility] de Phone Number [facility] RADIATION ONCOLOGY * (ABNORMAL) Hemoglobin and hematocrit (03/05/2024 11:04 AM EST) Only the most recent of3 resultswithin the time period is included. Hemoglobin 8.0(L) 11.5 - 16.0 g/dL LAB HEMETOLOGY METHOD 03/05/2024 11:[address] [facility] Hematocrit 25.7(L) 35.0 - 47.0 % LAB HEMETOLOGY METHOD 03/05/2024 11:[address] [facility] Blood Venipuncture / Unknown 03/05/2024 11:04 AM EST 03/05/2024 11:27 AM EST Al Gan MD LAB BLOOD ORDERABLES Fi nal Result [facility] [address] [place] [address], * Transfuse RBC (03/05/2024 12:50 AM EST) Al Gan MD BLOOD TRANSFUSION ORDER JAYCOB [...] ORDERABLES Final Result [facility] * Type and screen (03/04/2024 12:27 PM EST) ABO Group A 03/04/2024 5:[address] [facility] Rh Type Positive 03/04/2024 5:[address] [facility] Antibody Screen Negative 03/04/2024 5:[address] [facility] Blood Venous blood specimen / Unknown Venipuncture / Unknown 03/04/2024 12:27 PM EST 03/04/2024 12:41 PM EST us Al Gan MD LAB BLOOD BANK TEST ORD ERABLES Final Result Performing Organization Address City/[facility]/ZIP Co de Phone Number [facility] [address] [place] [address], * Prepare RBC: 1 Units (03/04/2024 9:14 AM EST) Pathologist [facility] Product Code [id number] 03/04/2024 7:[address] [facility] Unit Number [id number] 03/04/19 7:[address] [facility] Crossmatch Compatible 03/04/2024 5:[address] [facility] Dispense Status Transfused 03/04/2024 7:[address] [facility] Unit ABO Rh APOS 03/04/2024 7:[address] [facility] Unit Expiration Date Time [id number] 03/04/2024 7:[address] [facility] Unit Blood Type 6200 03/04/2024 7:[address] [facility] Blood Venous blood specimen / Unknown 03/04/2024 9:14 AM EST 03/04/2024 12:41 PM EST us Al Gan MD BLOOD BANK PRODUCT ORDE RABLES Final Result Performing Organization Address City/[facility]/ZIP Co de Phone Number [facility] [address] [place] [address], [place] [phone] * Phosphorus (03/04/2024 5:14 AM EST) Only the most recent of2 resultswithin the time period is included. Phosphorus 3.1 2.5 - 4.5 mg/dL LAB CHEMISTRY METHOD 03/04/2024 8:[address] [facility] Blood Venous blood specimen / Unknown Venipuncture / Unknown 03/04/2024 5:14 AM EST 03/04/2024 7:30 AM EST us Al Gan MD LAB BLOOD ORDERABLES Fi nal Result Performing Organization Address City/[facility]/ZIP Co de Phone Number [facility] [address] [place] [address], [place] [phone] * Magnesium (03/04/2024 5:14 AM EST) Only the most recent of8 resultswithin the time period is included. Magnesium 1.9 1.9 - 2.6 mg/dL LAB CHEMISTRY METHOD 03/04/2024 8:[address] [facility] Blood Venous blood specimen / Unknown Venipuncture / Unknown 03/04/2024 5:14 AM EST 03/04/2024 7:30 AM EST us Al Gan MD LAB BLOOD ORDERABLES Fi nal Result Performing Organization Address [facility] de Phone Number [facility] [address] [place] [address], [place] [phone] * (ABNORMAL) Basic metabolic panel (03/04/2024 5:14 AM EST) Only the most recent of8 resultswithin the time period is included. Sodium 136 133 - 145 mmol/L LAB CHEMISTRY METHOD 03/04/2024 8:[address] [facility] Potassium 3.8 3.5 - 5.5 mmol/L LAB CHEMISTRY METHOD 03/04/2024 8:[address] [facility] Chloride 100 96 - 110 mmol/L LAB CHEMISTRY METHOD 03/04/2024 8:[address] [facility] CO2 31 21 [...] nal Result [facility] [address] [place] [address], * Rad Onc Msq Treatment Summary (03/03/2024 [...] 8:24 AM EST) Only the most recent of6 resultswithin the time period is included. WBC 2.5(L) 4.8 - 10.8 K/mcL LAB HEMETOLOGY METHOD 03/02/2024 9:[address] [facility] RBC 2.90(L) [...] 9:[address] [facility] RDW 20.9(H) 11.0 - 15.0 % LAB HEMETOLOGY METHOD 03/02/2024 9:[address] [facility] Platelets 114(L) 130 - 400 K/mcL LAB HEMETOLOGY METHOD 03/02/2024 9:[address] [facility] MPV 9.8 7.0 - 11.0 FL LAB HEMETOLOGY METHOD 03/02/2024 9:[address] [facility] NRBC [...] nal Result [facility] [address] [place] [address], * (ABNORMAL) Iron and TIBC (03/02/2024 7:29 AM EST) Iron 20(L) 40 - 150 mcg/dL LAB CHEMISTRY METHOD 03/02/2024 10:[address] [facility] TIBC 111(L) 250 - 450 mcg/dL LAB CHEMISTRY METHOD 03/02/2024 10:[address] [facility] Iron Saturation 18 15 - 50 % LAB CHEMISTRY METHOD 03/02/2024 10:[address] [facility] Blood Blood sample taken from central line / Unknown Existing Catheter / Unknown 03/02/2024 7:29 AM EST 03/02/2024 10:06 AM EST us Al Gan MD LAB BLOOD ORDERABLES Fi nal Result [facility] [address] [place] [address], [place] [phone] * Ferritin (03/02/2024 7:29 AM EST) Pathologist [facility] Ferritin 237 8 - 252 ng/mL LAB CHEMISTRY METHOD 03/02/2024 10:[address] [facility] Blood Blood sample taken from central line / Unknown Existing Catheter / Unknown 03/02/2024 7:29 AM EST 03/02/2024 10:06 AM EST Al Gan MD LAB BLOOD ORDERABLES Fi nal Result Performing Organization Address [facility]/ZIP Co de Phone Number [facility] [address] [place] [address], [place] [phone] * (ABNORMAL) Transferrin (03/02/2024 6:41 AM EST) [facility] Transferrin 83(L) 200 - 360 mg/dL 03/04/2024 5:12 AM EST [facility] Comment: Test performed at [facility], [address] , [place], [place] ??[address] ? [phone] Clare Scales MD, PhD - Service Delivery Director Blood Blood sample taken from central line / Unknown Venipuncture / Unknown 03/02/2024 6:41 AM EST 03/02/2024 7:21 AM EST us Al Gan MD LAB BLOOD ORDERABLES Fi nal Result [facility] [address] [place] [address] * Rad Onc Msq Treatment Summary (03/01/2024 [...] GY ORDERABLES Final Result Performing Organization Address City/[facility] Co de Phone Number [facility] RADIATION ONCOLOGY [...] 1:37 PM EST Physician Radiation Oncology RADIATION ONCOLO [...] GY ORDERABLES Final Result Performing Organization Address [facility] Co de Phone Number [facility]COL[facility] * Rad Onc Msq Treatment Summary (02/25/2024 12:45 PM EST) Pathologist [facility] Treatment Site Pelvis/Anus MOS AIQ RADIATION ONCOLOGY [...] 02/24/2024 1:50 PM EST Physician Radiation Oncology MD RADIATION ONCOLO GY ORDERABLES Final Result [facility] RADIATION ONCOLOGY from Last 3 Months Insurance [facility] Member Subscriber Plan / Payer (Ef fective 2023-Present) Name:Tono Yanna Relation to Subscriber:Self Name:Tono Yanna Payer ID:[id number] Group ID:[id number] Type:Not on file Address: [place] [address] [address] [place] [id number] Advance Directives Documents on File Type Date Recorded Patient Revenue Audit Clerk Expl anation Advance Directives and Livin g Will 02/12/2024 9:18 AM Shaina Morrow [...] Agents on File Name Relationship Healthcare Agent [facility] Care Agent Care Teams Diamond Expert Relationship Specialty Start Date End Date Sneha Li MD [address] [place] [phone] PCP - General 01/23/23
--- OUTSIDE RECORDS SUMMARY | 2024-05-24 13:22 | XMS_ITS | Encounter Summary ---
Author Organization [employer] Address [address] [facility] 7t [place] [address] Care Team Providers Care Graphic Editor Name Role Phone Sneha Li MD Primary Care Provider +1- [phone] Nona Hanna MD Unavailable Encounter Details Date Type Department Care Team (Late st Contact Info) Description 10/24/2023 Orders Only [facility] [address] [place], [place] [phone] Sneha Li MD [address] [place], [place] [phone] Social History Tobacco Use Types Packs/Day Years [...] documented as of this encounter Care Teams Graphic Editor Relationship Specialty Start Date End Date Sneha Li MD [address] [place] [address] PCP - General Family Medicine 10/02/18 Nona Hanna MD [address] [place] [address] Urology 04/02/24 Dr. Lalito Miller MD [address] [address] Gynecologic Oncology 12/31/23 Dr. Samina Diaz [facility] Radiation Oncology 12/04/23 Dr. Pamela Medrano DO, Oncology 11/26/23 [facility] 11/20/23 documented as of this encounter
--- OUTSIDE RECORDS SUMMARY | 2024-05-24 13:22 | XMS_ITS | Encounter Summary ---
Author Organization [employer] Address [address] [facility] 7t [place] [address] Care Team Providers Care Gas Cutter Name Role Phone Sneha Li MD Primary Care Provider +1- [phone] Nona Hanna MD Unavailable Encounter Details Date Type Department Care Team ([facility] st Contact Info) Description 01/22/2023 Orders Only [facility] [address] [place], [place] [phone] Sneha Li MD [address] [place], [place] [phone] Low vitamin D level Social History Tobacco [...] level documented in this encounter Care Teams Gas Cutter Relationship Specialty Start Date End Date Sneha Li MD [address] [place] [address] PCP - General Family Medicine 10/02/18 Nona Hanna MD [address] [place] [address] [address] [place] [address] Urology 04/02/24 Dr. Lalito Miller MD [address] [address] Gynecologic Oncology 12/31/23 Dr. Samina Diaz [facility] Radiation Oncology 12/04/23 Dr. Pamela Medrano DO, Oncology 11/26/23 [facility] 11/20/23 documented as of this encounter
== END 2024-05-24 11:53 | disposition home or self-care (01) ==
LOC: HO.HGS 11:19
PROVIDERS: PCP Family Medicine; Visit Provider Surgery
DX: C21.1 Malignant neoplasm of anal canal (principal)
CPT/HCPCS: 99214

== ENCOUNTER → 2024-05-24 11:19 | Outpatient (BNVA) | payer OTHER, SELFPAY | PROVIDERS: PCP Family Medicine; Visit Provider Surgery | DX: C21.1 Malignant neoplasm of anal canal (principal) | CPT/HCPCS: 99212 ==

== ENCOUNTER 2024-06-28 14:02 | Outpatient (AMB) | payer OTHER, SELFPAY ==
--- OUTSIDE RECORDS SUMMARY | 2024-06-28 14:06 | XMS_ITS | Encounter Summary ---
Author Organization [employer] Address [address] [facility] 7t [place] [address] Care Team Providers Care Scientific Linguist Name Role Phone Sneha Li MD Primary Care Provider +1- [phone] Nona Hanna MD Unavailable Reason for Visit * Reason Onset Date Comments FYI 05/06/2023 Encounter Details Date Type Department Care Team ([facility] st Contact Info) Description 05/06/2023 Telephone [facility] [address] [place], [place] [phone] Sneha Li MD [address] [place], [place] [phone] FYI Social History Tobacco Use Types Packs/Day [...] 3:02 PM EDT Tc from Onofre at [facility] calling to inform the PCP the patient denied PT services andstated does not need it documented in this encounter Plan of Treatment Upcoming Encounters Date Type Department Care Team (Late st Contact Info) Description 07/28/2024 3:30 PM EDT Office Visit [facility] [address] [place] [phone] Sneha Li MD [address] [place] [address] 08/23/2024 1:30 PM EDT Nurse Only [facility] [address] [place] [phone] documented as of this encounter Visit Diagnoses Not on filedocumented in this encounter Care Teams Scientific Linguist Relationship Specialty Start Date End Date Sneha Li MD [address] [place] [address] PCP - General Family Medicine 10/02/18 Nona Hanna MD [address] [place] [address] Urology 04/02/24 Dr. Lalito Miller MD [address] [address] Gynecologic Oncology 12/31/23 Dr. Samina Diaz [facility] Radiation Oncology 12/04/23 Dr. Pamela Medrano DO, Oncology 11/26/23 [facility] 11/20/23 documented as of this encounter
--- OUTSIDE RECORDS SUMMARY | 2024-06-28 14:06 | XMS_ITS | Encounter Summary ---
Author Organization [employer] Address [address] [facility] 7t [place] [address] Care Team Providers Care Ldr Rn Name Role Phone Sneha Li MD Primary Care Provider +1- [phone] Nona Hanna MD Unavailable Reason for Visit * Reason Onset Date Comments Durable Medical Equipment 05/27/2023 Encounter Details Date Type Department Care Team (Late st Contact Info) Description 05/27/2023 Telephone [facility] [address] [place], [place] [phone] Sneha Li MD [address] [place] [address] Durable Medical Equipment Social History Tobacco Use [...] 12:28 PM EDT Tc from Norma with [facility] requesting DME: Shower chair If any questions you can contact Norma at [phone]. Norma would like that faxed to David. L&C documented in this encounter Plan of Treatment Upcoming Encounters Date Type Department Care Team (Late st Contact Info) Description 07/28/2024 3:30 PM EDT Office Visit [facility] [address] [place] [address] Sneha Li MD [address] [place] [address] 08/23/2024 1:30 PM EDT Nurse Only [facility] [address] [place] [phone] documented as of this encounter Visit Diagnoses Not on filedocumented in this encounter Care Teams Ldr Rn Relationship Specialty Start Date End Date Fred Liie, MD [address] [place] [address] PCP - General Family Medicine 10/02/18 Nona Hanna MD [address] [place] [address] Drive [address] [place] [address] Urology 04/02/24 Dr. Lalito Miller MD [address] [address] Gynecologic Oncology 12/31/23 Dr. Samina Diaz [facility] Radiation Oncology 12/04/23 Dr. Pamela Medrano DO, Oncology 11/26/23 [facility] 11/20/23 documented as of this encounter
--- OUTSIDE RECORDS SUMMARY | 2024-06-28 14:06 | XMS_ITS | Clinical Summary ---
Author Organization [employer] Address [address] [facility] [address] [place] [address] Care Team Providers Care Criminal Defense Lawyer Name Role Phone Sneha Li MD Primary Care Provider [phone] Nona Hanna MD Unavailable Allergies No known active allergies Medications * This document contains information received from the source organization and may not represent a complete record from that organization. risperiDONE (RisperDAL) 4 MG tabletIndicatio ns:Chronic psychosis [...] hours if needed for wheezing. 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 May repeat every 2-3 minutes if needed, alternating nostrils, until medical assistance becomes available. 2 each 024 2024 Active tamsulosin (Flomax) 0.4 MG 24 hr capsuleIndicati ons:Calcificati on of indwelling Rocha catheter, subsequent encounter take 1 capsule by mouth everyday at bedtime Active docusate sodium (Colace) 100 MG capsuleIndicati ons:Constipatio n, unspecified constipation type Take 1 tab po bid prn constipation 60 capsule 3 Active melatonin 3 MG tablet Take 1 tablet by mouth at bedtime. Active Senna-Time 8.6 MG tablet Take 1 tablet by mouth if needed each day for constipation. 025 Active thiamine (Vitamin B-1) 100 MG tablet Take 1 tablet by mouth Once per day. Active Multiple Vitamin (multivitamin) tablet Take 1 tablet by mouth Once per day. 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 Do not crush, chew, or split. 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 Number of tab increased due to increased need for metastatic cancer. 150 tablet 025 Active Acetaminophen Extra Strength 500 MG tabletIndicatio ns:Pain TAKE 1 TO 2 TABLETS BY MOUTH EVERY 8-12 HOURS NEEDED 40 tablet 1 024 2024 Discontinued(M ed list cleanup (will not trigger notification to Pharmacy)) nicotine (Nicoderm, Step 1) 21 MG/24HR patchIndication s:Nicotine Dependence Place 1 patch on the skin 1 (one) time each day at the same time. 30 patch 3 024 2024 Discontinued(M ed list cleanup (will not trigger notification to Pharmacy)) varenicline (Chantix) 0.5 MG tabletIndicatio ns:Tobacco abuse Take 0.5 mg PO once daily on Days 1 through 3, then 0.5 mg PO twice daily on Days 4 through 7, and finally 1 mg PO twice daily on day 8 until the end of treatment. 12 tablet 2 04/16/ 025 2024 Discontinued(M ed list cleanup (will not trigger notification to Pharmacy)) varenicline (Chantix) 1 MG tabletIndicatio ns:Tobacco abuse Take 1 tablet (1 mg) by mouth 2 times daily. 0.5 mg PO once daily on Days 1 through 3, then 0.5 mg PO twice daily on Days 4 through 7, and finally 1 mg PO twice daily on day 8 until the end of treatment. 60 tablet 2 025 2024 Discontinued(M ed list cleanup (will not [...] migh t be different from the original. [facility] Director University: [place], member services number [phone], provider services line, , option 4 they told me Helena Perez is nurse wound care who work with [facility] phone number . I called that number Occupational Health Coordinator Agency: [place], supervisor laundry Shari Caicedokhoi [phone] Problem Noted Date Diagnosed Date Weakness 05/25/2024 Assessment & Plan (05/25/2024 7:35 PM EDT): Pt with chronic severe illness, metastatic cancer with worsening weakness, bilateral eye drainage, indwelling rocha and lives alone. She refuses hospital and states she will not go with EMS if EMS called. She agrees to [facility] visit who will see her tonight. Her case therapist was updated and anaya see her tomorrow. She agrees with the plan. Eye drainage 05/25/2024 Indwelling Rocha catheter calcification 05/15/19 25 Constipation [...] US and mammo to be done at [facility]. installation & maintenance executive will be needed. -Ordered mammogram and US, scheduled for 06/03/24 Assessment & Plan (05/14/2024 11:25 AM EDT): Call received from Dr Diaz radiation oncologist who reports pt states she has right breast mass that is new. On exam Dr Diaz noted 3cm disc mass in upper outter quadrannt. Pts last mammo normal 07/2023. Will order urgent US and mammo to be done at [facility]. installation & maintenance executive will be needed. -Ordered mammogram and US, [...] anus with unknown primary site 10/24/2023 Overview (06/28/2024): Primary squamous cell carcinoma of anus (CMS/HCC) [...] placement will be scheduled. -care transferred by [facility] oncology to [facility] -Seen by Dr. Shayne Brock, general surgery 12/16/2023 for consultation regarding management of locally advanced squamous cell cancer . This was requested by radiation oncology however they deferred to Dr. Pelayo at [facility] as he did the colostomy on her -seen 12/24/23 with Pamela Cooper DO, Hematology/Oncology at [facility]: pet scan which shows involvement of only [...] is Dr. Samina Diaz -12/25/[address] Miller :The tumor is quite [...] examination to be formed under anesthesia. -12/29/23 tile grinder onc examination under anesthesia with biopsies of cervix, vagina, vulva, and possible cystoscopy and rigid proctoscopy for further evaluation of the extent of malignancy. -coordinate with Dr. Samina Diaz to see if she would be available during the surgery to also assess the tumor and aid with radiation planning. -follow up with heme onc with Talia Blanchard -follow up with tile grinder onc Paul Yanez -Pain medication sent by [...] be replaced or removed by urology at [facility] -Cancer responded well to radiation, has follow-up with Oncologist June 29, 2024. 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 Reports decreased oxycodone to 10 mg tabs only 05/14/24 -Admitted to [facility] 06/02/24 for failure to thrive and pain, discharged to rehab and left rehab AMA -Admitted to [facility] 06/11/24 for abdominal pain -Not from Dr. Allison DO, oncologist 06/14/24 reports May has cancelled and missed multiple oncology appointments. PET scan ordered, next steps depend on results of PET scan, will be discussed with tumor board. -PET CT 06/18/24 reveales metabolically active large rectal mass without PET/CT evidence of metastatic disease Assessment & Plan (06/22/2024 10:18 AM EDT): Primary squamous cell carcinoma of [...] placement will be scheduled. -care transferred by [facility] oncology to [facility] -Seen by Dr. Shayne Brock, general surgery 12/16/2023 for consultation regarding management of locally advanced squamous cell cancer . This was requested by radiation oncology however they deferred to Dr. Pelayo at [facility] as he did the colostomy on her -seen 12/24/23 with Pamela Cooper DO, Hematology/Oncology at [facility]: pet scan which shows involvement of only [...] is Dr. Samina Diaz -12/25/23 seen by Entertainment Agent Onc [address] Miller :The tumor is quite [...] examination to be formed under anesthesia. -12/29/23 tile grinder onc examination under anesthesia with biopsies of cervix, vagina, vulva, and possible cystoscopy and rigid proctoscopy for further evaluation of the extent of malignancy. -coordinate with Dr. Samina Diaz to see if she would be available during the surgery to also assess the tumor and aid with radiation planning. -follow up with heme onc with Talia Blanchard -follow up with tile grinder onc Paul Yanez -Pain medication sent by [...] be replaced or removed by urology at [facility] -Cancer responded well to radiation, has [...] placement will be scheduled. -care transferred by [facility] oncology to [facility] -Seen by Dr. Shayne Brock, general surgery 12/16/2023 for consultation regarding management of locally advanced squamous cell cancer . This was requested by radiation oncology however they deferred to Dr. Pelayo at [facility] as he did the colostomy on her -seen 12/24/23 with Pamela Cooper DO, Hematology/Oncology at [facility]: pet scan which shows involvement of only [...] is Dr. Samina Diaz -12/25/23 seen by Entertainment Agent Onc [address] Miller :The tumor is quite [...] examination to be formed under anesthesia. -12/29/23 tile grinder onc examination under anesthesia with biopsies of cervix, vagina, vulva, and possible cystoscopy and rigid proctoscopy for further evaluation of the extent of malignancy. -coordinate with Dr. Samina Diaz to see if she would be available during the surgery to also assess the tumor and aid with radiation planning. -follow up with heme onc with Talia Blanchard -follow up with tile grinder onc Paul Yanez -Pain medication sent by [...] be replaced or removed by urology at [facility] -Cancer responded well to radiation, has [...] placement will be scheduled. -care transferred by [facility] oncology to [facility] -Seen by Dr. Shayne Brock, general surgery 12/16/2023 for consultation regarding management of locally advanced squamous cell cancer . This was requested by radiation oncology however they deferred to Dr. Pelayo at [facility] as he did the colostomy on her -seen 12/24/23 with Pamela Cooper DO, Hematology/Oncology at [facility]: pet scan which shows involvement of only [...] is Dr. Samina Diaz -12/25/23 seen [address] Entertainment Agent Onc [address] Miller :The tumor is quite [...] examination to be formed under anesthesia. -12/29/23 tile grinder onc examination under anesthesia with biopsies of cervix, vagina, vulva, and possible cystoscopy and rigid proctoscopy for further evaluation of the extent of malignancy. -coordinate with Dr. Samina Diaz to see if she would be available during the surgery to also assess the tumor and aid with radiation planning. -follow up with heme onc with Talia Blanchard -follow up with tile grinder onc Paul Yanez -Pain medication sent by [...] be replaced or removed by urology at [facility] Assessment & Plan (11/19/2023 4:54 PM [...] for CK20. -hospitalized for pain management at [facility] 10/2023 - awaiting outpatient PET-CT . [...] PET scan trying to be arranged at [facility] and they should hear from them. Assessment [...] f/u with Dr. Peterson. -Her caseworkr at [facility] is [phone] -Continue with therapist Cara Ramsay. -Prescribed 0.5 [...] f/u with Dr. Peterson. -Her caseworkr at [facility] is [employer] #[phone] -Continue with therapist Cara Ramsay. -Prescribed 0.5 [...] visit for hallucination 01/14/2021. Her caseworkr at [facility] is Matt [phone] Continue with therapist Cara Ramsay. Assessment & [...] visit for hallucination 01/14/2021. Her caseworkr at [facility] is Matt #[phone] Continue with therapist Cara Ramsay. Cigarette nicotine dependence 07/31/2022 Overview (10/08/2023): In precontemplative stages of quitting. Declines medication. -Cigg/day: 20 -Age started: 17 -Total years smokin -Pack year history: 37 Encouraged smoking cessation resources such as pharmacomtherapy, [facility] smoking cessation group, and [facility] pharmacy smoking cessation clinic. She will [...] as pharmacomtherapy, [facility] smoking cessation group, and [facility] pharmacy smoking cessation clinic. She will [...] as pharmacomtherapy, [facility] smoking cessation group, and [facility] pharmacy smoking cessation clinic. She will [...] as pharmacomtherapy, [facility] smoking cessation group, and [facility] pharmacy smoking cessation clinic -LDCT: 11/09/23 revealed enlarged right pretracheal node 2.2 cm, otherwise unremarkable Assessment & Plan (07/31/2022 11:33 AM EDT): Pt does not like patches. -She will ask for mint flavored gum, she does not like the cinnamon. Bilateral deafness 07/31/2022 Overview (10/07/2023): -Has services with [employer] -Needs ASL interpreters for all speciality appointments. Assessment & Plan (06/22/2024 9:01 AM EDT): -Has services with [employer] [...] Overview (10/08/2023): Lab Results Component Value Date [id number] 10.6 (L) 01/22/2023 -vit D 50,000 weekly started 01/22/2023 -ordered Vitamin D level ordered 10/08/23 Assessment & Plan (10/08/2023 9:30 AM EDT): Lab Results Component Value Date [id number] 10.6 (L) 01/22/2023 -vit D 50,000 weekly started 01/22/2023 -ordered Vitamin D level ordered 10/08/23 Preventative health care 07/31/2022 Overview (10/07/2023): -next physical exam due after 01/23/2024. -followed by [facility] in [place], last seen May 2022, will request note 07/31/2022. -[employer] -health care proxy paperwork filed 06/25/23 Assessment & Plan (10/08/2023 9:44 AM EDT): -next physical exam due after 01/23/2024. -followed by [facility] in [place], last seen May 2022, will request note 07/31/2022. -[employer] -health care proxy paperwork filed 06/25/23 Assessment & Plan (06/25/2023 10:29 AM EDT): -next physical exam due after 01/23/2024. -She goes to [facility] in [place], last seen May 2022, will request note 07/31/2022. -[employer] -health care proxy paperwork filed 06/25/23 Assessment & Plan (01/22/2023 11:44 AM EST): Next PE due after 01/23/2024 -She goes to [facility] [place] [facility] in [place], last seen May 2022, will request note 07/31/2022. Assessment & Plan (07/31/2022 11:29 AM EDT): Next PE due after 08/01/2023. -She goes to [facility] in [place], last seen May 2022, will request note 07/31/2022. Colon cancer screening 07/31/2022 Overview (05/14/2024): -referral placed 03/2021 and to [facility] GI 08/01/22 - pt has appointment 07/15/23 at 11:30am it will be at [facility] interpretation services requested. Ollie pt's complex care nurse practitioner is aware -Saw GI and has colonoscopy scheduled for 01/13/24 -I called over to [facility] and will send new labs revealing new anemia. Will fax to [phone]. -Encouraged to consider getting colonoscopy despite concern with prep 05/14/24 Assessment & Plan (05/14/2024 11:26 AM EDT): -referral placed 03/2021 and to [facility] GI 08/01/22 - pt has appointment 07/15/23 at 11:30am it will be at [facility] interpretation services requested. Ollie pt's complex care nurse practitioner is aware -Saw GI and has colonoscopy scheduled for 01/13/24 -I called over to [facility] and will send new labs revealing new anemia. Will fax to [phone]. -Encouraged to consider getting colonoscopy despite concern with prep 05/14/24 Assessment & Plan (10/08/2023 1:48 PM EDT): -referral placed 03/2021 and to [facility] 08/01/22 - pt has appointment 07/15/23 at 11:30am it will be at [facility] in [facility] interpretation services requested. Ollie pt's complex care nurse practitioner is aware -Saw GI and has colonoscopy scheduled for 01/13/24 -I called over to [facility] and will send new labs revealing new anemia. Will fax to [phone]. 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) 06/22/2024 9:30 AM EDT Office Visit [address] [address] Noreen Montgomery MD 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 ([facility]/HCC) (Primary Dx); Hypotension, unspecified hypotension type; Bilateral deafness; Cigarette nicotine dependence without complication 06/22/2024 Travel 06/21/[address] [address] Noreen Montgomery MD CHART PREP 06/17/2024 Patient Outreach [address] [address] Sneha Li MD Transition Of Care (Tcm) (Discharge request) 06/09/[address] [address] Norma Astorga, Calli discharge request 06/07/2024 Patient Outreach [address] [address] Sneha Li MD Transition Of Care (Tcm) (HDF-Scheduled (direct)) 05/26/[address] [address] Sneha Li MD 05/25/2024 5:20 PM EDT Telemedicine [facility] [address] [place] [phone] Sneha Li MD Weakness (Primary Dx); Eye drainage 05/25/2024 Travel 05/21/[address] [address] Sneha Li MD 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 ([facility]/HCC) 05/17/[address] [address] Sneha Li MD Appointment Request 05/14/2024 11:00 AM EDT Telemedicine [address] [address] Sneha Li MD 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) (Primary Dx); Mass of upper outer quadrant of right breast; S/P colostomy (CMS/HCC); Moderate chronic obstructive pulmonary disease (CMS/HCC); Calcification of indwelling Rocha catheter, subsequent encounter; Constipation, unspecified constipation type; Schizophrenia, unspecified type (CMS/HCC); Tobacco abuse; Colon cancer screening; Bilateral deafness 05/14/2024 Travel 05/12/2024 Orders Only [address] [address] Sneha Li MD Mass of upper outer quadrant of right breast (Primary Dx) 05/12/[address] [address] Sneha Li MD call back needed 05/07/2024 Orders Only GENERIC EXTERNAL DATA DEPARTMENT Provider, Generic External Data 04/27/[address] [address] Sneha Li MD Paperwork/Forms 04/22/[address] [address] Sneha Li MD 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 ([facility]/HCC) 04/19/[address] [address] Sneha Li MD Appointment Request 04/16/2024 11:45 AM EST Telemedicine [address] [address] Sneha Li MD 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 ([facility]/HCC) (Primary Dx); Tobacco abuse; Bilateral deafness from Last 3 Months Immunizations Immunization Administration Dates Next Due Hep A, Adult 10/08/2023,01/22/2023 Hep B, adult 06/25/2023,01/22/2023,07/31/2022 Influenza injectable quadriv alent preservative free 01/22/2023,01/04/2019 Influenza, IIV3, injectable 11/22/2019 Influenza, seasonal, injecta ble, preservative free 10/24/2023 Moderna Covid-19 Vaccine 6+ Bivalent 07/31/2022 Pfizer Covid-19 Vaccine 12+ 06/25/2023 Pneumococcal Conjugate PCV 20 01/22/2023 Pneumococcal Polysaccharide PPSV23 11/22/2019, Tdap 01/04/2019 Zoster, Recombinant 06/21/2024 Social History Tobacco Use Types Packs/Day Years [...] Q2 Not on file 10/12/2023 Comments Unknown Intention Date Recorded No desire to become (finding) 0 05/14/2024 Sex and Gender Information Value Date Recorded Sex Assigned at Female 12/10/2021 10:35 AM EDT Legal Sex Female 10:35 AM EDT Gender Identity Female 12/10/2021 10:35 AM EDT Sexual Orientation Straight 12/10/2021 10 :35 AM EDT Last Filed Vital Signs Vital Sign Reading Time Taken Comments Blood Pressure 100/57 06/22/2024 9:44 AM EDT Pulse 82 06/22/2024 9:44 AM EDT Temperature 36.3 ??C (97.3 ??F) 06/22/2024 9:44 AM ED T Respiratory Rate 17 06/22/2024 9:44 AM EDT Oxygen Saturation 97% 10/24/2023 1:43 PM EDT Inhaled Oxygen Concentration - - Weight 53.9 kg (118 lb 12.8 oz) 10/24/2023 1:43 PM EDT Height 157.5 cm (5' 2 ) 10/08/2023 9:16 AM EDT Body Mass Index 21.73 10/08/2023 9:16 AM EDT Plan of Treatment Upcoming Encounters Date Type Department Care Team (Late st Contact Info) Description 07/28/2024 3:30 PM EDT Office Visit [facility] [address] [place] [address] [phone] Sneha Li MD [address] [place] [phone] 08/23/2024 1:30 PM EDT Nurse Only [facility] [address] [place] [address] [phone] Health Maintenance Due Date Last Done Comments CT Colonography 1972 Dental Prophylaxis 1972 Dental X-Ray: Bitewings 1972 Dental X-Ray: Full Mouth 1972 FIT DNA/Cologuard 1972 FIT 1972 FOBT 1972 Sigmoidoscopy 1972 Disability Screening 1972 Alcohol/Substance Use Screening 1984 COVID-19 Vaccine ( season) 2023 06/25/2023, 07/31/2022, 03/05/2021, Additional history exists Dental Oral Exam 01/10/2024 07/09/2023 HPV/Cotest 02/20/2024 02/19/2019, 02/19/2019 Pap Smear 02/20/2024 02/19/2019 Zoster Vaccines (2 of 2) 08/16/2024 06/21/2024 Depression Screening 10/07/2024 10/08/2023, 10/08/19 24 Diabetes: Hemoglobin A1C 10/07/2024 10/08/2023, 01/10 SDOH Screening 10/07/2024 10/08/2023 Family Planning (PISQ) 05/14/2025 05/14/2024 Tobacco Screening 06/22/2025 06/22/2024 Mammogram 06/24/2026 06/24/2024, 06/10, 06/24/2024, Additional history exists Lipid Panel 10/07/2028 10/08/2023, [...] 3:34 PM EDT 05/07/2024 4:46 PM EDT Comment:[facility] - 05/09/2024 7:34 AM EDT Escherichia coli Quant > 100,000 cfu/mL Escherichia coli: Ampicillin >=32(R) Escherichia coli: Cefazolin (Urine) 2(S) Escherichia coli: Cefepime <=0.12(S) Escherichia coli: Ceftriaxone <=0.25(S) Escherichia coli: Ciprofloxacin 0.5(I) Escherichia coli: Gentamicin <=1(S) Escherichia coli: Nitrofurantoin <=16(S) Escherichia coli: Trimethoprim/Sulfamethoxazole >=320(R) Specimen Source: Urine clean catch Generic External Data Provider LAB MICROBIOLOGY - GENERAL ORDERABLES Final Result Performing Organization Address [facility]/ZIP Co de Phone Number [facility] [address] [place] [address] [phone] * (ABNORMAL) Hm Colonoscopy (11/06/2023) Pathologist [facility] Colonoscopy Abnormal( A) Normal Comment:rectal mass Historical Provider HEALTH MAINTENANCE Final Result * HIV-1/2 Antigen and Antibodies, Fourth Generation, with Reflexes (10/08/2023 10:52 AM EDT) [facility] HIV AB/AG Nonreactive Nonreactive [facility] Comment:HIV-1 p24 Ag and/or HIV-1/HIV-2 Ab not detected.A test result that is nonreactive does not exclude thepossibility of exposure to or infection with HIV-1 and/orHIV-2. Nonreactive results in this assay for individualswith prior exposure to HIV-1 and/or HIV-2 may be due toantigen and antibody levels that are below the limit ofdetection of this assay.The [employer] HIV Ag/Ab Combo assay result andsupplemental assay results should be interpreted inconjunction with the patient's clinical presentation,history and other laboratory results. If the results areinconsistent with clinical evidence, additional testing issuggested to confirm the result. 10/08/2023 10:5 2 AM EDT 10/08/2023 10:52 AM EDT Sneha Li MD LAB BLOOD ORDERABLES Final Result Performing Organization Address City/[facility]/ZIP Co de Phone Number [facility] [address] [place] [address] [phone] * Hemoglobin A1c (10/08/2023 10:52 AM EDT) [facility] Hemoglobin A1c 5.7 <6.0 % [facility] Comment:Hemoglobin A1C Refer ence Range Adults: 4.8 - 6.0 % Non diabetic: < 6.0 % Goal: < 7.0 %Additional Action Suggested: > 8.0 %Note: Hemoglobin A1c results are invalid for patients with abnormal amounts of HbF. Blood transfusions may impact the HbA1c concentration in the patient sample. Estimated Average Glucose 117 mg/dL [facility] Comment:eAG = Estimated ave rage glucose which is %A1C expressed asaverage glucose, using the formula of the [id number] Glucose study (ADAG), Diabetes Care, Vol.31,#8,Sep. 2007 10/08/2023 10:5 2 AM EDT 10/08/2023 10:52 AM EDT us Sneha Li MD LAB BLOOD ORDERABLES Final Result [facility] [address] [place] [phone] * (ABNORMAL) Lipid Panel, Standard (10/08/2023 10:52 AM EDT) Triglycerides 161(H) <150 mg/dL [facility] Comment:Desirable Triglyceri de: less than 150 mg/dLBorderline High Triglyceride 150-199 mg/dLHigh Triglyceride: 200-499 mg/dLVery High Triglyceride: greater than or equal to 5OO mg/dL Cholesterol 97 <200 mg/dL [facility] Comment:Desirable Cholestero l: less than 200 mg/dLBorderline High Cholesterol: 200-239 mg/dLHigh Cholesterol: greater than 239 mg/dL LDL Cholesterol Calculated 40 <100 mg/dL [facility] Comment:Desirable LDL: less than 100 mg/dLNear Optimal/Above Optimal LDL: 110- 129 mg/dLBorderline High LDL: 130-159 mg/dLHigh LDL: 160-189 mg/dLVery High LDL: greater than or equal to 190 mg/dL HDL Cholesterol 25(L) >40 mg/dL [facility] Comment:Desirable HDL: great er than 40 mg/dL Note: This HDL assay may give artificially low results in patients with liver disease. 10/08/2023 10:5 2 AM EDT 10/08/2023 10:52 AM EDT Sneha Li MD LAB BLOOD ORDERABLES Final Result [facility] [address] [place] [phone] * Hepatitis C Antibody (02/23/2019 10:52 AM EST) Hepatitis C Antibody Nonreactive Blood 02/23/2019 10:5 2 AM EST Yves Brennan MD POINT OF CARE TEST ENTER/ EDIT ORDERABLES Final Result * HPV E6/E7 RFLX JOSH 16 18/45 (02/19/2019 10:40 AM EST) ADDITIONAL TESTING Not indicated () [facility] Comment: Test Performed by Heaven Taylor, [employer] [place], [address] [place] [address] Ananth Boston M.D., Ph.D., Director of Laboratories , [facility] [id number] HPV 16 RNA Test not performed [facility] HPV 18/45 RNA Test not performed [facility] HPV mRNA E6/E7 Not Detected NOT DETECTED [facility] Comment: This test was performed using the APTIMA(R) HPV Assay ([employer] This assay detects E6/E7 viral messenger RNA (mRNA) from 14 high-risk HPV types (16,18,31,33,35,39,45,51, 52,56,58,59,66,68). For additional information please refer to: http://education.Mirada/faq/UKB623o6 (This link is being provided for informational/ educational purposes only.) The analytical performance characteristics of this assay have been determined by [employer], [place]. The modifications have not been cleared or approved by the FDA. This assay has been validated pursuant to the CLIA regulations and is used for clinical purposes. Please note: ??Effective 10/23/2015, HPV testing will be performed using [employer]'s APTIMA test which targets mRNA. Detecting mRNA instead of DNA, as in older methods, offers significant improvements in specificity. 02/19/2019 10:4 0 AM EST us Sneha Li MD HISTORICAL/NON ORDERABLE L ABS Final Result [facility] [address] * Thinprep PAP and HPV nRNA E6/E7 (02/19/2019 12:00 AM EST) us Historical Provider LAB PATHOLOGY ORDERABLES Final Result IMAGING from Last 3 Months or Most Recently Relevant to Health Maintenance Insurance 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 Lalito Miller MD [address] [address] Gynecologic Oncology 12/31/23 Dr. Samina Diaz [facility] Radiation Oncology 12/04/23 Dr. Pamela Cooper DO, Oncology 11/26/23 [facility] 11/20/23
--- OUTSIDE RECORDS SUMMARY | 2024-06-28 14:06 | XMS_ITS | Encounter Summary ---
Author Organization [employer] Address [address] [facility] 7[address] [place] [address] Care Team Providers Care Wire Steward Name Role Phone Guillermo, Sneha AVILEZ Primary Care Provider [phone]- [phone] Nona Hanna MD Unavailable Reason for Visit * Reason Onset Date Comments Med Refill 06/28/2024 Encounter Details Date Type Department Care Team (Late st Contact Info) Description 06/28/2024 Refill [facility] [address] [place] [address] Jennifer Evans, ANP [address] [place] [address] Metastatic squamous cell carcinoma involving anus with [...] Description 07/28/2024 3:30 PM EDT Office Visit [facility] [address] [place] [phone] Sneha Li MD [address] [place] [phone] 08/23/2024 1:30 PM EDT Nurse Only [address] [address] documented as of this encounter Visit Diagnoses Diagnosis 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 [address] Gynecologic Oncology 12/31/[address] [facility] Radiation Oncology 12/04/23 Dr. Pamela Medrano DO, Oncology 11/26/23 [facility] 11/20/23 documented as of this encounter
--- OUTSIDE RECORDS SUMMARY | 2024-06-28 14:06 | XMS_ITS | Encounter Summary ---
Author Organization [employer] Address [address] [facility] 7t [place] [address] Care Team Providers Care Utility Pipe Layer Name Role Phone Sneha Li MD Primary Care Provider +1- [phone] Nona Hanna MD Unavailable Reason for Visit * Reason Onset Date Comments FYI 09/09/2023 Encounter Details Date Type Department Care Team ([facility] st Contact Info) Description 09/09/2023 Telephone [facility] MEDICINE [address] [place], [place] [phone] Sneha Li MD [address] [place] [address] FYI Social History Tobacco Use Types Packs/Day [...] 1:02 PM EDT Tc from Kayla with [facility] calling to inform pcp on readings during today's visit. Heart rate came out to 118 regular and blood pressure was 100/60. If any questuions you can contact Kayla at [phone]. documented in this encounter Plan of Treatment Upcoming Encounters Date Type Department Care Team (Late st Contact Info) Description 07/28/2024 3:30 PM EDT Office Visit [facility] MEDICINE [address] [place] [phone] Sneha Li MD [address] [place] [address] 08/23/2024 1:30 PM EDT Nurse Only [facility] [address] [place] [address] documented as of this encounter Visit Diagnoses Not on filedocumented in this encounter Care Teams Utility Pipe Layer Relationship Specialty Start Date End Date Sneha Li MD [address] [place] [address] PCP - General Family Medicine 10/02/18 Nona Hanna MD [address] [place] [address] Urology 04/02/24 Dr. Lalito Miller MD [address] [address] Gynecologic Oncology 12/31/23 Dr. Samina Diaz [facility] Radiation Oncology 12/04/23 Dr. Pamela Medrano DO, Oncology 11/26/23 [facility] 11/20/23 documented as of this encounter
--- OUTSIDE RECORDS SUMMARY | 2024-06-28 14:07 | XMS_ITS | Encounter Summary ---
Author Organization [facility] Address [address] [place] [address] Care Team Providers Care Culinary Intern Name Role Phone Sneha Li MD Primary Care Provider [phone]- [phone] Reason for Referral * Imaging (Routine) - Authorized Specialty Diagnoses / Procedures Referred By Jacinda vaughn Referred To Contact Radiology Diagnoses Unspecified lump in the right breast, upper outer quadrant Procedures US Breast Limited bilat US Breast Limited Right Sneha Li MD [address] [place] [address] Phone: tel: fax: [facility] [place] Referral ID Status Reason Start Date Expiration Date V isits Requested Visits Authorized [id number] Authorized 05/13/2024 05/13/2025 1 1 Reason for Visit * Imaging (Routine) - Authorized Specialty Diagnoses / Procedures Referred By Jacinda vaughn Referred To Contact Radiology Diagnoses Unspecified lump in the right breast, upper outer quadrant Procedures US Breast Limited bilat US Breast Limited Right Sneha Li MD [address] [place] [address] Phone: tel: fax: [facility] [place] Referral ID Status Reason Start Date Expiration Date V isits Requested Visits Authorized [id number] Authorized 05/13/2024 05/13/2025 1 1 Encounter Details Date Type Department Care Team (Latest Contact Info) Description 06/24/2024 2:38 PM EDT - 06/24/2024 11:59 PM EDT Hospital Encounter [facility] Ultrasound [address] [place] [address] Unspecified lump in the right breast, upper outer quadrant Discharge Disposition: Home or Self Care Social History Tobacco Use Types Packs/Day Years Used Date Smoking Tobacco: Former Cigarettes Smokeless Tobacco: Never Alcohol Use Standard Drinks/Week Comments Not Currently 0 (1 standard drink = 0.6 oz pur e alcohol) Housing Instability Answer Date Recorde d Are you worried that in the next 2 months you may not have stable housing? No 05/29/2024 Food Access & Nutrition Answer Date Rec orded Do you have access to a vari ety of food including fruits and vegetables? Yes 05/29/2024 Access to Healthcare Answer Date Record ed Within the last 3 months, ho w many times did you visit the emergency department for your medical care? 1 05/29/2024 Health Literacy Answer Date Recorded How often do you need to hav e someone help you when you read instructions, pamphlets, or other written material from your doctor or pharmacy? Never 05/29/2024 Caregiver: How often do you need to have someone help you when you read instructions, pamphlets, or other written material from your doctor or pharmacy? Not on file 05/29/2024 Financial Risk Answer Date Recorded How hard is it for you to pa y for the very basics like food, housing, medical care, and air conditioning / heating? Not very hard 05/29/2024 Transportation Answer Date Recorded Has the lack of transportati on kept you from meetings, work, or from getting things needed for daily living? No Has the lack of transportati on kept you from medical appointments or from getting medications? No 05/29/2024 Social Isolation Answer Date Recorded How often do you feel lonely or isolated from th ose around you? Rarely 05/29/2024 Food Risk Answer Date Recorded Within the past 12 months we worried whether our food would run out before we got money to buy more. Never true 05/29/2024 Within the past 12 months th e food we bought just didn't last and we didn't have money to get more. Never true 05/29/2024 Dependent Care Answer Date Recorded Do you need help finding or paying for care for your loved ones. For example, child protection specialist or elderly care for an older adult? No 05/29/2024 Education Answer Date Recorded Do you think completing more education or training, like finishing a GED, going to college, or learning a trade, would be helpful for you? No 05/29/2024 Employment and Income Answer Date Recor ded During the last four weeks, have you been actively looking for work? No 05/29/2024 Living Situation Answer Date Recorded What is your living situation? 0 05/29/2024 Interpersonal Safety Answer Date Record ed Physical Abuse 05/29/2024 Verbal Abuse 05/29/2024 Comments No Sex and Gender Information Value Date Recorded Sex Assigned at Female 05/28/2024 5:07 PM EDT Legal Sex Female 8:10 PM EST Gender Identity Female 05/28/2024 5:07 PM EDT Sexual Orientation Straight 05/28/2024 5: 07 PM EDT documented as of this encounter Functional Status [...] total) by mouth 2 times daily. 10/20/2023 fluticasone propion-salmeteroL (ADVAIR DISKUS) 500-50 mcg/dose diskus [...] by mouth at bedtime as needed. 11/08/2023 ondansetron (ZOFRAN) 8 mg tabletIndications: prevention of [...] (4 mg total) by mouth at bedtime. senna (SENOKOT) 8.6 mg tablet Take 1 tablet (8.6 mg total) by mouth 1 (one) time each day if needed for constipation. 30 each 11 05/07/2024 silver sulfADIAZINE (SILVADENE, SSD) 1 % cream Apply topically 2 (two) times a day. Apply to affected area 2-3 times per day 400 g 03/26/2024 documented as of this encounter Discharge Disposition Disposition Code Departure Means Destination Home or Self Care documented in this encounter Plan of Treatment Upcoming Encounters Date Type Department Care Team (Late st Contact Info) Description 06/29/2024 1:30 PM EDT Appointment [facility] Radiation Oncology [address] [place] [phone] Samina Diaz MD [address] [place] [address] 07/12/2024 2:15 PM EDT Office Visit [facility] Hematology Oncology [address] [place] [address] Arlen Medrano DO [address] [place] [address] documented as of this encounter Procedures Procedure Name Priority Date/Time Associated Diagnosis Comments US BREAST LIMITED BILAT Routine 06/24/2024 3:59 PM EDT Unspecified lump in the right breast, upper outer quadrant documented in this encounter Results * US Breast Limited bilat (06/24/2024 3:59 PM EDT) Anatomical Region Laterality Modality Breast Bilateral Ultrasound 06/24/2024 3:43 PM EDT Impressions 06/24/2024 3:52 PM EDT No mammographic or sonographic evidence of malignancy. ?? Stable appearance on mammography. ??The palpable findings could be related to weight loss. The patient should be managed on the basis of the clinical breast exam The findings and recommendations were written for the patient who is deaf A negative mammogram in the presence of a clinically suspicious palpable abnormality does not preclude the possibility of malignancy or alter the indications for biopsy. ASSESSMENT: ?? BI-RADS 2: BENIGN RECOMMENDATION(S): 1: Clinical correlation recommended BILATERAL [facility] [address] [place], [address] -------- FINAL REPORT -------- Dictated By: Alvin White Dictated Date: 06/24/2024 15:43 ET Assigned Physician: Alvin White Reviewed and Electronically Signed By: Alvin White Signed Date: 06/24/2024 15:52 ET Workstation ID: [id number] Transcribed By: Self Edit Transcribed Date: 06/24/2024 15:48 ET Narrative 06/24/2024 3:52 PM EDT EXAM: ??DIAGNOSTIC MAMMOGRAPHY, BILATERAL ULTRASOUND: DIAGNOSTIC ULTRASOUND, BILATERAL HISTORY: ??Patient has metastatic anal cancer. ??Abnormal clinical breast exam. Multiple palpable abnormalities. ??Lumps in the upper outer right breast outer right breast and upper outer left breast. Report of PET CT 06/18/24 indicates no abnormal metabolic activity in the chest. COMPARISON: ??08/04/23, 07/24/22, 04/11/21, 05/23/20, 09/28/15, 06/03/14 TECHNIQUE: Synthesized CC and MLO projections of each breast. ??Tomosynthesis of each breast in the CC and MLO projections. ADDITIONAL IMAGING: None High-frequency linear transducer ultrasound of each breast targeted to the area of clinical concern. Computer-aided detection was employed with the iCAD ??profound AI 3-D. TISSUE DENSITY: The breasts are heterogeneously dense, which may obscure small masses. (BI-RADS category C) FINDINGS: There has been apparent weight loss when compared to multiple previous studies. MAMMOGRAPHY: RIGHT BREAST: There is a 7.1 x 4.5 cm global asymmetry in the upper outer right breast. ??This correlates to an area of palpable concern. ??This has been present since at least 2014. Circumscribed oval mass with an associated metallic marker in the 12 o'clock position 8 cm from the nipple is unchanged. ?? No new suspicious right breast finding. LEFT BREAST: There is a 4.9 x 2.8 cm global asymmetry in the superficial upper outer left breast which correlates to an area of palpable concern. ??This is unchanged since at least 2014. ?? No new suspicious left breast findings ULTRASOUND: RIGHT BREAST: 11 o'clock position, 6 cm from right nipple Area of palpable concern There is a circumscribed oval area of altered echotexture which correlates to the finding on mammography. There are no enlarged right axillary lymph nodes. No other suspicious right breast findings LEFT BREAST: 2 o'clock position, 6 cm from the left nipple Area of palpable concern There is no suspicious mass. ??There is no suspicious area of altered echotexture. Some fibroglandular tissue likely correlates to the finding on the mammogram. There are no enlarged left axillary lymph nodes Procedure Note Alvin White MD - 06/24/2024 EXAM: DIAGNOSTIC MAMMOGRAPHY, BILATERAL ULTRASOUND: DIAGNOSTIC ULTRASOUND, BILATERAL HISTORY: Patient has metastatic anal cancer. Abnormal clinical breastexam. Multiple palpable abnormalities. Lumps in the upper outer right breastouter right breast and upper outer left breast. Report of PET CT 06/18/24 indicates no abnormal metabolic activity in thechest. COMPARISON: 08/04/23, 07/24/22, 04/11/21, 05/23/20, 09/28/15, 06/03/14 TECHNIQUE: Synthesized CC and MLO projections of each breast.Tomosynthesis of each breast in the CC and MLO projections. ADDITIONAL IMAGING: None High-frequency linear transducer ultrasound of each breast targeted to thearea of clinical concern. Computer-aided detection was employed with the [employer] 3-D. TISSUE DENSITY: The breasts are heterogeneously dense, which may obscuresmall masses. (BI-RADS category C) FINDINGS: There has been apparent weight loss when compared to multiple previousstudies. MAMMOGRAPHY: RIGHT BREAST: There is a 7.1 x 4.5 cm global asymmetry in the upper outer right breast.This correlates to an area of palpable concern. This has been presentsince at least 2014. Circumscribed oval mass with an associated metallic marker in the 12o'clock position 8 cm from the nipple is unchanged. No new suspicious right breast finding. LEFT BREAST: There is a 4.9 x 2.8 cm global asymmetry in the superficial upper outerleft breast which correlates to an area of palpable concern. This isunchanged since at least 2014. No new suspicious left breast findings ULTRASOUND: RIGHT BREAST: 11 o'clock position, 6 cm from right nipple Area of palpable concern There is a circumscribed oval area of altered echotexture which correlatesto the finding on mammography. There are no enlarged right axillary lymph nodes. No other suspicious right breast findings LEFT BREAST: 2 o'clock position, 6 cm from the left nipple Area of palpable concern There is no suspicious mass. There is no suspicious area of alteredechotexture. Some fibroglandular tissue likely correlates to the finding on themammogram. There are no enlarged left axillary lymph nodes IMPRESSION: No mammographic or sonographic evidence of malignancy. Stable appearance on mammography. The palpable findings could be relatedto weight loss. The patient should be managed on the basis of the clinical breast exam The findings and recommendations were written for the patient who isdeaf A negative mammogram in the presence of a clinically suspicious palpableabnormality does not preclude the possibility of malignancy or alter theindications for biopsy. ASSESSMENT: BI-RADS 2: BENIGN RECOMMENDATION(S): 1: Clinical correlation recommended BILATERAL [facility] [address], [address] -------- FINAL REPORT -------- Dictated By: Alvin White Dictated Date: 06/24/2024 15:43 ET Assigned Physician: Alvin White Reviewed and Electronically Signed By: Alvin White Signed Date: 06/24/2024 15:52 ET Workstation ID: [id number] Transcribed By: Self Edit Transcribed Date: 06/24/2024 15:48 ET us Sneha Li MD IMG US PROCEDURES Final Re sult documented in this encounter Visit Diagnoses Diagnosis Unspecified lump in the right breast, upper outer quadrant documented in this encounter Care Teams Culinary Intern Relationship Specialty Start Date End Date Sneha Li MD [address] [place] [phone] PCP - General 01/23/23 documented as of this encounter
--- OUTSIDE RECORDS SUMMARY | 2024-06-28 14:07 | XMS_ITS | Clinical Summary ---
Author Organization [facility] Address [address] [place] [address] Care Team Providers Care Product Marketer Name Role Phone Sneha Li MD Primary Care Provider [phone] Allergies No known active allergies Medications fluticasone [...] each 4 Active ondansetron (ZOFRAN) 8 mg tabletIndication s:prevention [...] day if needed for constipation. 30 each 5 05/08/19 Active Additional Information Patient not taking.Reported on 05/29/2024 Active Problems Problem Noted Date Diagnosed Date Anal pain 05/28/2024 Rectal mass 02/05/2024 Schizophrenia ([facility] V24, [facility] V28) 024 Primary squamous cell carcin comfort of anus ([facility] V24, [facility] V28) 12/16/2023 Cancer Staging:Clinical:Stage IIIC(cT4, cN1, cM0) - Signed by Samina Diaz MD on 01/01/2024 S/P colostomy ([facility] V24, [facility] V28) 024 Adult failure to thrive 10/24/2023 Overview (04/26/2024): -Will prescribe Ensure 10/24/23 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 -care transferred by [facility] oncology to [facility] -Seen by Dr. Shayne Brock, general surgery 12/16/2023 for consultation regarding management of locally advanced squamous cell cancer . This was requested by radiation oncology however they deferred to Dr. Pelayo at [facility] as he did the colostomy on her -seen 12/24/23 with Pamela Cooper DO, Hematology/Oncology at [facility]: pet scan which shows involvement of [...] is Dr. Samina Diaz -12/25/23 seen [address] [employer] Onc Dr Miller :The tumor is quite [...] examination to be formed under anesthesia. -12/29/23 leach cell operator onc examination under anesthesia with biopsies of cervix, vagina, vulva, and possible cystoscopy and rigid proctoscopy for further evaluation of the extent of malignancy. -coordinate with Dr. Samina Diaz to see if she would be available during the surgery to also assess the tumor and aid with radiation planning. -follow up with heme onc with Talia Blanchard -follow up with leach cell operator onc Paul Yanez -Pain medication sent by [...] disorder, r ecurrent, severe with psychotic symptoms ([facility] V24, [facility] V28) 09/03/2023 Overview (04/26/2024): See diagnosis of psychosis. Other constipation 06/25/2023 Other hemorrhoids 06/25/2023 Schizophrenia ([facility] V24, [facility] V28) 024 Congenital deafness 03/21/2023 COPD (chronic obstructive pu lmonary disease) ([facility] V24, [facility] V28) 03/21/2023 Nicotine dependence 03/21/2023 Class 1 obesity 01/22/2023 Status post laparoscopic cholecystectomy 023 Dyslipidemia 07/31/2022 Overview (04/26/2024): Lab Results Component Value Date TRIG 130 01/22/2023 CHOL 132 01/22/2023 LDLCHOLCAL 77 01/22/2023 HDL 29 (L) 01/22/2023 -continue lifestyle modifications Low vitamin D level 07/31/2022 Overview (04/26/2024): Lab Results Component Value Date [id number] 10.6 (L) 01/22/2023 -vit D 50,000 weekly [...] deafness 07/31/2022 Overview (04/26/2024): -Has services with [employer]. -Needs ASL interpreters for all speciality appointments. Cigarette nicotine dependence 07/31/2022 Overview (04/26/2024): In precontemplative stages of quitting. Declines medication. -Cigg/day: 20 -Age started: 17 -Total years smokin -Pack year history: 37 Encouraged smoking cessation resources such as pharmacomtherapy, [facility] smoking cessation group, and [facility] pharmacy smoking cessation clinic. She will [...] f/u with Dr. Peterson. -Her caseworkr at [facility] is [facility] #[phone] -Continue with therapist Cara Ramsay. -Prescribed 0.5 [...] Encounters Date Type Department Care Team Description 06/24/2024 2:38 PM EDT - 06/24/2024 11:59 PM EDT Hospital Encounter [facility] Ultrasound [address] [place] [address] Unspecified lump in the right breast, upper outer quadrant Discharge Disposition: Home or Self Care 06/24/2024 2:02 PM EDT - 06/24/2024 11:59 PM EDT [facility] [address] [phone] Unspecified lump in the right breast, upper outer quadrant Discharge Disposition: Home or Self Care 06/18/2024 12:50 PM EDT - 06/18/2024 11:59 PM EDT Hospital Encounter [facility] PET Scan [address] [place] [phone] 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 ([facility] V24, [facility] V28) Discharge Disposition: Home or Self Care 06/14/2024 1:30 PM EDT Office Visit [facility] Hematology Oncology [address] [place] [phone] Arlen Cooper DO Anal cancer ([facility] V24, [facility] V28) (Primary Dx); Port-A-Cath in place; Mild anemia; Breast lump in female 06/01/2024 Telephone [facility] Hematology Oncology [address] [place] [phone] Arlen Cooper DO 05/28/2024 4:37 PM EDT - 06/03/2024 11:51 AM EDT Hospital Encounter [facility] Medical Surgical Unit [address] [place] [phone] Hiram Coe MD Japaridze, Anna, MD Kokosadze, Estate, MD Bell, Alistair A, MD Anal pain (Primary Dx) Discharge Disposition: [facility] 05/24/2024 Telephone [facility] Infusion Center [address] [place] [phone] Kym Louis, CHELI May not feeling well 05/07/2024 Telephone [facility] Hematology Oncology [address] [place] [phone] Arlen Cooper DO 04/27/2024 3:00 PM EDT - 04/27/2024 11:59 PM EDT Hospital Encounter [facility] Radiation Oncology [address] [place] [phone] Samina Diaz MD 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 ([facility] V24, [facility] V28) (Primary Dx) Discharge Disposition: Home or Self Care 04/13/2024 1:06 PM EST - 04/13/2024 11:59 PM EST Hospital Encounter [facility] Radiation Oncology [address] [place] [phone] Samina Diaz MD Primary squamous cell carcinoma of anus ([facility] V24, [facility] V28) (Primary Dx) Discharge Disposition: Home or Self Care 03/31/2024 1:30 PM EST - 03/31/2024 11:59 PM EST Hospital Encounter [facility] Radiation Oncology [address] [place] [phone] Nickie Duron NP Primary squamous cell carcinoma of anus ([facility] V24, [facility] V28) (Primary Dx) Discharge Disposition: Home or Self Care 03/31/2024 12:58 PM EST - 03/31/2024 11:59 PM EST Hospital Encounter [facility] Radiation Oncology [address] [place] [phone] Discharge Disposition: Home or Self Care from Last 3 Months Surgical History Surgery Date Site/Laterality Comments CHOLECYSTECTOMY COLOSTOMY FOOT SURGERY TUBAL LIGATION APPENDECTOMY Medical History Medical History Date Comments COPD (chronic obstructive pu lmonary disease) ([facility] V24, [facility] V28) 03/21/2023 DX:COPD (chronic o bstructive pulmonary disease) ([facility]) Leukocytosis 03/21/2023 DX:Leukocytosis Cancer of anus ([facility] V24, [facility] V28) Congenital deafness 03/21/2023 Low vitamin D level 07/31/2022 Nicotine dependence 03/21/2023 Schizophrenia ([facility] V24, [facility] V28) 12/25/2023 Port-A-Cath in [address] Schizo affective schizophren ia ([facility] V24, [facility] V28) Social History Tobacco Use Types Packs/Day [...] for your loved ones. For example, child attendant or elderly care for an older adult? [...] Orientation Straight 05/28/2024 5: 07 PM EDT Obstetrics History Para Term AB IAB SAB Ectopic Multiple Livin g Live Births 2 Last Filed Vital Signs Vital Sign Reading Time Taken Comments Blood Pressure 75/47 06/14/2024 1:43 PM EDT Pulse 90 06/14/2024 1:43 PM EDT Temperature 36.7 ??C (98.1 ??F) 06/14/2024 1:43 PM ED T Respiratory Rate 14 06/03/2024 7:00 AM EDT Oxygen Saturation 93% 06/14/2024 1:43 PM EDT Inhaled Oxygen Concentration - - Weight 47.2 kg (104 lb) 06/24/2024 2:13 PM EDT Height 157.5 cm (5' 2 ) 06/24/2024 2:13 PM EDT Body Mass Index 19.02 06/24/2024 2:13 PM EDT Plan of Treatment Upcoming Encounters Date Type Department Care Team (Late st Contact Info) Description 06/29/2024 1:30 PM EDT Appointment [facility] Radiation Oncology [address] [place] [phone] Samina Diaz MD [address] [place] [address] 07/12/2024 2:15 PM EDT Office Visit [facility] Hematology Oncology [address] [place] [phone] Arlen Cooper DO [address] [place] [address] Health Maintenance Due Date Last Done Comments Cervical Cancer Screening: Pap Smear 1993 Colorectal Cancer Screening: Colonoscopy 03/06/2023 Hepatitis C Screening 03/06/2023 Medicare Annual Wellness Visit 03/06/2023 COVID-19 Vaccine ( season) 2023 06/25/2023, 07/31/2022, 03/05/2021, Additional history exists Zoster Vaccines (2 of 2) 08/16/2024 06/21/2024 Depression Screening 10/07/2024 10/08/2023 Social Influencers of Health Screening 05/29/2025 05/29/2024 Breast Cancer Screening 06/24/2026 06/24/2024, 08/03 Cholesterol Screening (Lipid Panel) 10/07/2028 10/08/2023 DTaP,Tdap,and [...] this topic Medical Devices Implanted Type Area Director Of Graduate Admissions Device Identifier Shelf Expiration Date Model / Serial / Lot Kit Surgiflo W 2000 Units Ster Lyo - Sn/A - [id number] Implanted:Qty: [facility] N/A: Vagina [employer] 12/10/2024 2994 / N/A / [id number] Procedures Procedure Name Priority Date/Time Associated Diagnosis Comments US BREAST LIMITED BILAT Routine 06/24/2024 3:59 PM EDT Unspecified lump in the right breast, upper outer quadrant MG MAMMO DIGITAL DIAGNOSTIC W BRYN BILAT Routine 06/24/2024 3:36 PM EDT Unspecified lump in the right breast, upper outer quadrant PET CT SKULL TO MID THIGH SUBSEQUENT Routine 06/18/2024 2:40 PM EDT 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 V24, CMS/HCC V28) CBC WITH AUTO DIFFERENTIAL Routine 05/31/2024 6:11 AM EDT CBC AND DIFFERENTIAL Routine 05/31/2024 6:11 AM EDT BASIC METABOLIC PANEL Routine 05/31/2024 6:11 AM EDT CBC WITH AUTO DIFFERENTIAL Routine 05/29/2024 6:03 AM EDT CBC AND DIFFERENTIAL Routine 05/29/2024 6:03 AM EDT BASIC METABOLIC PANEL Routine 05/29/2024 6:03 AM EDT XR CHEST 2 VIEWS Routine 05/29/2024 12:4 5 AM EDT CBC WITH AUTO DIFFERENTIAL STAT 05/28/2024 8:24 PM EDT CBC AND DIFFERENTIAL STAT 05/28/2024 8:24 PM EDT CARRANZA URINE CULTURE TUBE STAT 05/28/2024 7:31 PM EDT URINALYSIS WITH REFLEX MICROSCOPIC AND CULTURE STAT 05/28/2024 7:31 PM EDT URINALYSIS WITH REFLEX MICROSCOPIC AND CULTURE STAT 05/28/2024 7:31 PM EDT PHOSPHORUS STAT 05/28/2024 6:13 PM EDT MAGNESIUM STAT 05/28/2024 6:13 PM EDT COMPREHENSIVE METABOLIC PANEL STAT 05/28/2024 6:13 PM EDT RAD ONC MSQ TREATMENT SUMMARY Routine 03/31/2024 1:33 PM EST from Last 3 Months Results * US Breast Limited bilat (06/24/2024 [...] BILATERAL [facility]ammography location: [facility] [address], [address] -------- FINAL REPORT -------- Dictated By: Alvin White Dictated Date: 06/24/2024 15:43 ET Assigned Physician: Alvin White Reviewed and Electronically Signed By: Alvin White Signed Date: 06/24/2024 15:52 ET Workstation ID: [id number] Transcribed By: Self Edit Transcribed Date: 06/24/2024 [...] concern. Computer-aided detection was employed with the TechniScan 3-D. TISSUE DENSITY: The breasts are heterogeneously [...] BILATERAL Mammography location: [facility] at [address], [address] -------- FINAL REPORT -------- Dictated By: Alvin White Dictated Date: 06/24/2024 15:43 ET Assigned Physician: Alvin White Reviewed and Electronically Signed By: Alvin White Signed Date: 06/24/2024 15:52 ET Workstation ID: [id number] Transcribed By: Self Edit Transcribed Date: 06/24/2024 15:48 ET us Sneha Li MD IMG US PROCEDURES Final Re sult * MG Mammo Digital Diagnostic w Bryn bilat (06/24/2024 3:36 PM EDT) Anatomical Region Laterality Modality Breast Bilateral Mammography 06/24/2024 3:43 PM EDT Impressions 06/24/2024 3:52 [...] BILATERAL Mammography location: [facility] at [address], [address] -------- FINAL REPORT -------- Dictated By: Alvin White Dictated Date: 06/24/2024 15:43 ET Assigned Physician: Alvin White Reviewed and Electronically Signed By: Alvin White Signed Date: 06/24/2024 15:52 ET Workstation ID: [id number] Transcribed By: Self Edit Transcribed Date: 06/24/2024 [...] concern. Computer-aided detection was employed with the TechniScan 3-D. TISSUE DENSITY: The breasts are heterogeneously [...] BILATERAL Mammography location: [facility] at [address], [address] -------- FINAL REPORT -------- Dictated By: Alvin White Dictated Date: 06/24/2024 15:43 ET Assigned Physician: Alvin White Reviewed and Electronically Signed By: Alvin White Signed Date: 06/24/2024 15:52 ET Workstation ID: [id number] Transcribed By: Self Edit Transcribed Date: 06/24/2024 15:48 ET Sneha Li MD IMG BI PROCEDURES Final Re sult * PET CT Skull to Mid Thigh Subsequent (06/18/2024 2:40 PM EDT) Anatomical Region Laterality Modality Body Radiographic Cesia ging 06/23/2024 2:29 PM EDT Impressions 06/23/2024 2:39 PM EDT Metabolically active large rectal mass without PET/CT evidence of metastatic disease. -------- FINAL REPORT -------- Dictated By: Laurie Membreno Dictated Date: 06/23/2024 14:29 ET Assigned Physician: Laurie Membreno Reviewed and Electronically Signed By: Laurie Membreno Signed Date: 06/23/2024 14:39 ET Workstation ID: [id number] Transcribed By: Self Edit Transcribed Date: 06/23/2024 14:29 ET Narrative 06/23/2024 2:39 PM EDT INDICATION: Vaginal carcinoma, subsequent treatment strategy Prior relevant studies: CT scan of the abdomen and pelvis from February 17, 2024 Radiopharmaceutical: 10.7 mCi of F-18 FDG IV. Blood glucose: 122 mg/dl. PROCEDURE: Routine body FDG PET-CT imaging was performed from the skull base to the proximal/mid thighs and reconstructed in axial, coronal, and sagittal planes at the computer workstation with fused data from both the PET imaging study and attenuation correction CT. The CT portion of the examination was done strictly for attenuation correction and is not a true diagnostic CT examination. CTDI: 2.62 mGy FINDINGS: HEAD AND NECK: No abnormal FDG activity. Paraspinal muscular activity noted within the right side of the neck appears physiological. THORAX: No abnormal FDG activity. ABDOMEN/PELVIS: Focal intense activity along the left para-aortic region is tubular in orientation and therefore likely represents activity within the left ureter. Intensely FDG avid pelvic rectal mass with SUV max of 7.7. No FDG avid right inguinal lymphadenopathy. MUSCULOSKELETAL: No abnormal FDG activity. Mild activity along right lateral gluteal subcutaneous calcifications likely injection granulomas. Procedure Note Laurie Membreno MD - 06/23/2024 INDICATION: Vaginal carcinoma, subsequent treatment strategy Prior relevant studies: CT scan of the abdomen and pelvis from February Radiopharmaceutical: 10.7 mCi of F-18 FDG IV. Blood glucose: 122 mg/dl. PROCEDURE: Routine body FDG PET-CT imaging was performed from the skullbase to the proximal/mid thighs and reconstructed in axial, coronal, andsagittal planes at the computer workstation with fused data from both thePET imaging study and attenuation correction CT. The CT portion of theexamination was done strictly for attenuation correction and is not a truediagnostic CT examination. CTDI: 2.62 mGy FINDINGS: HEAD AND NECK: No abnormal FDG activity. Paraspinal muscular activitynoted within the right side of the neck appears physiological. THORAX: No abnormal FDG activity. ABDOMEN/PELVIS: Focal intense activity along the left para-aortic regionis tubular in orientation and therefore likely represents activity withinthe left ureter. Intensely FDG avid pelvic rectal mass with SUV max of 7.7. No FDG avid right inguinal lymphadenopathy. MUSCULOSKELETAL: No abnormal FDG activity. Mild activity along rightlateral gluteal subcutaneous calcifications likely injection granulomas. IMPRESSION: Metabolically active large rectal mass without PET/CT evidence ofmetastatic disease. -------- FINAL REPORT -------- Dictated By: Laurie Membreno Dictated Date: 06/23/2024 14:29 ET Assigned Physician: Laurie Membreno Reviewed and Electronically Signed By: Laurie Membreno Signed Date: 06/23/2024 14:39 ET Workstation ID: [id number] Transcribed By: Self Edit Transcribed Date: 06/23/2024 14:29 ET us Samina Diaz MD IMG NM PROCEDURES Final Resu lt * (ABNORMAL) CBC auto differential (05/31/2024 6:11 AM EDT) Only the most recent of3 resultswithin the time period is included. WBC 3.7(L) 4.8 - 10.8 K/mcL LAB HEMETOLOGY METHOD 05/31/2024 7:45 AM [facility] RBC 3.30(L) 3.80 - 4.80 M/mcL LAB HEMETOLOGY METHOD 05/31/2024 7:45 AM [facility] Hemoglobin 9.8(L) 11.5 - 16.0 g/dL LAB HEMETOLOGY METHOD 05/31/2024 7:45 AM [facility] Hematocrit 31.0(L) 35.0 - 47.0 % LAB HEMETOLOGY METHOD 05/31/2024 7:45 AM [facility] MCV 94.5 79.0 - 98.0 FL LAB HEMETOLOGY METHOD 05/31/2024 7:45 AM [facility] MCH 29.9 27.0 - 32.0 pcg LAB HEMETOLOGY METHOD 05/31/2024 7:45 AM [facility] MCHC 31.6(L) 32.0 - 37.0 g/dL LAB HEMETOLOGY METHOD 05/31/2024 7:45 AM [facility] RDW 15.9(H) 11.0 - 15.0 % LAB HEMETOLOGY METHOD 05/31/2024 7:45 AM [facility] Platelets 177 130 - 400 K/mcL LAB HEMETOLOGY METHOD 05/31/2024 7:45 AM [facility] MPV 10.0 7.0 - 11.0 FL LAB HEMETOLOGY METHOD 05/31/2024 7:45 AM [facility] NRBC 0.0 <1.0 % LAB HEMETOLOGY METHOD 05/31/2024 7:45 AM [facility] NRBC Absolute 0.00 <0.10 K/mcL LAB HEMETOLOGY METHOD 05/31/2024 7:45 AM [facility] Neutrophils Relative 55.6 % LAB HEMETOLOGY METHOD 05/31/2024 7:45 AM [facility] Lymphocytes Relative 22.5 % LAB HEMETOLOGY METHOD 05/31/2024 7:45 AM [facility] Monocytes Relative 11.5 % LAB HEMETOLOGY METHOD 05/31/2024 7:45 AM [facility] Eosinophils Relative 9.6 % LAB HEMETOLOGY METHOD 05/31/2024 7:45 AM [facility] Basophils Relative 0.5 % LAB HEMETOLOGY METHOD 05/31/2024 7:45 AM [facility] Immature Granulocytes Relative 0.3 % LAB HEMETOLOGY METHOD 05/31/2024 7:45 AM [facility] Neutrophils Absolute 2.08 1.50 - 7.00 K/mcL LAB HEMETOLOGY METHOD 05/31/2024 7:45 AM [facility] Lymphocytes Absolute 0.84(L) 1.00 - 5.00 K/mcL LAB HEMETOLOGY METHOD 05/31/2024 7:45 AM EDT [facility] Monocytes Absolute 0.43 0.20 - 1.00 K/[facility] LAB HEMETOLOGY METHOD 05/31/2024 7:45 AM EDT [facility] Eosinophils Absolute 0.36 0.00 - 0.50 K/[facility] LAB HEMETOLOGY METHOD 05/31/2024 7:45 AM EDT [facility] Basophils Absolute 0.02 0.00 - 0.20 K/[facility] LAB HEMETOLOGY METHOD 05/31/2024 7:45 AM EDT [facility] Immature Granulocytes Absolute 0.01 0.00 - 0.03 K/[facility] LAB HEMETOLOGY METHOD 05/31/2024 7:45 AM EDT [facility] Blood Venous blood specimen / Unknown Venipuncture / Unknown 05/31/2024 6:11 AM EDT 05/31/2024 7:35 AM EDT us Estate Kierra AVILEZ LAB BLOOD ORDERABLES Final R esult [facility] [address] [place] [address], * (ABNORMAL) Basic metabolic panel (05/31/2024 6:11 AM EDT) Only the most recent of2 resultswithin the time period is included. Sodium 143 133 - 145 mmol/L LAB CHEMISTRY METHOD 05/31/2024 8:12 AM EDT [facility] Potassium 3.6 3.5 - 5.5 mmol/L LAB CHEMISTRY METHOD 05/31/2024 8:12 AM EDT [facility] Chloride 110 96 - 110 mmol/L LAB CHEMISTRY METHOD 05/31/2024 8:12 AM EDT [facility] CO2 28 21 - 32 mmol/L LAB CHEMISTRY METHOD 05/31/2024 8:12 AM EDT [facility] Anion Gap 5 3 - 11 LAB CHEMISTRY METHOD 05/31/2024 8:12 AM T [facility] Glucose 89 70 - 100 mg/dL LAB CHEMISTRY METHOD 05/31/2024 8:12 AM [facility] BUN 4(L) 5 - 25 mg/dL LAB CHEMISTRY METHOD 05/31/2024 8:12 AM [facility] Creatinine 0.55 0.50 - 1.10 mg/dL LAB CHEMISTRY METHOD 05/31/2024 8:12 AM [facility] eGFR 111 >=60 mL/min/1. 73m2 LAB CHEMISTRY METHOD 05/31/2024 8:12 AM [facility] Comment:Calculation based on the??Chronic Kidney Disease Epidemiology Collaboration (CKD-EPI) equation refit??without adjustment for race. BUN/Creatinine Ratio 7.3 LAB CHEMISTRY METHOD 05/31/2024 8:12 AM [facility] Calcium 9.0 8.5 - 10.5 mg/dL LAB CHEMISTRY METHOD 05/31/2024 8:12 AM [facility] Blood Venous blood specimen / Unknown Venipuncture / Unknown 05/31/2024 6:11 AM EDT 05/31/2024 7:35 AM EDT us Xavi Lozada MD LAB BLOOD ORDERABLES Final R esult [facility] [address] [place] [address], * XR Chest 2 Views (05/29/2024 12:45 AM EDT) Anatomical Region Laterality Modality Body Radiographic Cesia ging 05/29/2024 9:43 AM EDT Impressions 05/29/2024 9:46 AM EDT Impression: 1. Possible small infiltrate in the lingula or right middle lobe (seen in the lateral projection only). Short-term follow-up is recommended. 2. Port-A-Cath well positioned. Telerad SONU ([id number]) -------- FINAL REPORT -------- Dictated By: Mae Oreilly Dictated Date: 05/29/2024 09:43 ET Assigned Physician: Mae Oreilly Reviewed and Electronically Signed By: Mae Oreilly Signed Date: 05/29/2024 09:46 ET Workstation ID: [id number] Transcribed By: Self Edit Transcribed Date: 05/29/2024 09:43 ET Narrative 05/29/2024 9:46 AM EDT History: Hypoxia. Comparison: 02/17/24 Findings: Upright AP and lateral views of the chest. The cardiac silhouette remains normal in size. A Port-A-Cath is seen on the right, the tip projecting at the level of the SVC, unchanged. Hilar contours and pulmonary vascularity appear normal. The lungs are clear. A small airspace infiltrate is seen in the anterior chest on the lateral view only, consistent with either right middle lobe or lingula. This appears new from 02/05/24. The costophrenic angles are sharp. Cholecystectomy clips are noted. Procedure Note Mae Oreilly MD - 05/29/2024 History: Hypoxia. Comparison: 02/17/24 Findings: Upright AP and lateral views of the chest. The cardiac silhouette remainsnormal in size. A Port-A-Cath is seen on the right, the tip projecting atthe level of the SVC, unchanged. Hilar contours and pulmonary vascularityappear normal. The lungs are clear. A small airspace infiltrate is seen inthe anterior chest on the lateral view only, consistent with either rightmiddle lobe or lingula. This appears new from 02/05/24. The costophrenicangles are sharp. Cholecystectomy clips are noted. IMPRESSION: Impression: 1. Possible small infiltrate in the lingula or right middle lobe (seen inthe lateral projection only). Short-term follow-up is recommended. 2. Port-A-Cath well positioned. Telerad SONU ([id number]) -------- FINAL REPORT -------- Dictated By: Mae Oreilly Dictated Date: 05/29/2024 09:43 ET Assigned Physician: Mae Oreilly Reviewed and Electronically Signed By: Mae Oreilly Signed Date: 05/29/2024 09:46 ET Workstation ID: [id number] Transcribed By: Self Edit Transcribed Date: 05/29/2024 09:43 ET Urvashi ASCENCIO IMG XR PROCEDURES Final Resul t * (ABNORMAL) Urinalysis with reflex microscopic and culture (05/28/2024 7:31 PM EDT) Specific [place] Urine 1.008 1.003 - 1.030 LAB URINALYSIS - AUTOMATED METHOD [facility]/28[facility]2024 8:[facility] pH, Urine 7.5 5.0 - 8.0 pH LAB URINALYSIS - AUTOMATED METHOD 05/28/2024 8:35 [facility] Leukocytes, Urine Moderate(A) Negative LAB URINALYSIS - AUTOMATED METHOD 05/28/2024 8:35 PM [facility] Nitrite, Urine Positive(A) Negative LAB URINALYSIS - AUTOMATED METHOD 05/28/2024 8:35 PM [facility] Protein, Urine Negative <=Trace mg/dL LAB URINALYSIS - AUTOMATED METHOD 05/28/2024 8:35 PM [facility] Glucose, Urine Negative Negative mg/dL LAB URINALYSIS - AUTOMATED METHOD 05/28/2024 8:35 PM [facility] Ketones, Urine Negative Negative mg/dL LAB URINALYSIS - AUTOMATED METHOD 05/28/2024 8:35 PM [facility] Urobilinogen , Urine 1.0 0.2 - 1.0 mg/dL LAB URINALYSIS - AUTOMATED METHOD 05/28/2024 8:35 PM [facility] Bilirubin, Urine Negative Negative LAB URINALYSIS - AUTOMATED METHOD 05/28/2024 8:35 PM EDT [facility] Blood, Urine Negative Negative LAB URINALYSIS - AUTOMATED METHOD 05/28/2024 8:35 PM EDT [facility] RBC, Urine 0.0 0 - 4 /HPF LAB URINALYSIS - AUTOMATED METHOD 05/28/2024 8:35 PM EDT [facility] WBC, Urine 22.2(H) 0 - 4 /HPF LAB URINALYSIS - AUTOMATED METHOD 05/28/2024 8:35 PM EDT [facility] Squamous Epithelial, Urine 5 0 - 60 /LPF LAB URINALYSIS - AUTOMATED METHOD 05/28/2024 8:35 PM EDT [facility] Crystals, Urine Moderate Amorphous Phosphate crystals. /LPF LAB URINALYSIS - AUTOMATED METHOD 05/28/2024 8:35 PM EDT [facility] Bacteria, Urine Few(A) Negative /HPF LAB URINALYSIS - AUTOMATED METHOD 05/28/2024 8:35 PM EDT [facility] Hyaline Casts, Urine 0.0 0 - 3 /LPF LAB URINALYSIS - AUTOMATED METHOD 05/28/2024 8:35 PM EDT [facility] Urine Urine specimen obtained by clean catch procedure / Unknown Non-blood Collection / Unknown 05/28/2024 7:31 PM EDT 05/28/2024 8:14 PM EDT us Norma ASECNCIO LAB URINE ORDERABLES Fin al Result [facility] [address] [place] [address], * Carranza urine culture tube (05/28/2024 7:31 PM EDT) Extra Tube Hold for add-ons. 05/28/2024 10:05 PM EDT [facility] Comment:Auto resulted. Urine Urine specimen obtained by clean catch procedure / Unknown Non-blood Collection / Unknown 05/28/2024 7:31 PM EDT 05/28/2024 8:15 PM EDT Norma ASCECNIO LAB URINE ORDERABLES Fin al Result Performing Organization Address [facility]/ZIP Co de Phone Number [facility] [address] [place] [address], [place] [phone] * Phosphorus (05/28/2024 6:13 PM EDT) Phosphorus 3.2 2.5 - 4.5 mg/dL LAB CHEMISTRY METHOD 05/28/2024 8:06 PM EDT [facility] Blood Venous blood specimen / Unknown Venipuncture / Unknown 05/28/2024 6:13 PM EDT 05/28/2024 7:20 PM EDT [facility] [place] LAB BLOOD ORDERABLES Fin al Result Performing Organization Address [facility] Co de Phone Number [facility] [address] [place] [address], [place] [phone] * Magnesium (05/28/2024 6:13 PM EDT) Magnesium 1.9 1.9 - 2.6 mg/dL LAB CHEMISTRY METHOD 05/28/2024 8:06 PM EDT [facility] Blood Venous blood specimen / Unknown Venipuncture / Unknown 05/28/2024 6:13 PM EDT 05/28/2024 7:20 PM EDT [facility] [place] LAB BLOOD ORDERABLES Fin al Result Performing Organization Address [facility]/ZIP Co de Phone Number [facility] [address] [place] [address], [place] [phone] * (ABNORMAL) Comprehensive metabolic panel (05/28/2024 6:13 PM EDT) Sodium 135 133 - 145 mmol/L LAB CHEMISTRY METHOD 05/28/2024 8:06 PM [facility] Potassium 3.7 3.5 - 5.5 mmol/L LAB CHEMISTRY METHOD 05/28/2024 8:06 PM [facility] Chloride 103 96 - 110 mmol/L LAB CHEMISTRY METHOD 05/28/2024 8:06 PM [facility] CO2 29 21 - 32 mmol/L LAB CHEMISTRY METHOD 05/28/2024 8:06 PM [facility] Anion Gap 3 3 - 11 LAB CHEMISTRY METHOD 05/28/2024 8:06 PM [facility] Glucose 95 70 - 100 mg/dL LAB CHEMISTRY METHOD 05/28/2024 8:06 PM [facility] BUN 8 5 - 25 mg/dL LAB CHEMISTRY METHOD 05/28/2024 8:06 PM [facility] Creatinine 0.62 0.50 - 1.10 mg/dL LAB CHEMISTRY METHOD 05/28/2024 8:06 PM [facility] eGFR 108 >=60 mL/min/1. 73m2 LAB CHEMISTRY METHOD 05/28/2024 8:06 PM [facility] Comment:Calculation based on the??Chronic Kidney Disease Epidemiology Collaboration (CKD-EPI) equation refit??without adjustment for race. BUN/Creatinine Ratio 12.9 LAB CHEMISTRY METHOD 05/28/2024 8:06 PM [facility] Calcium 8.8 8.5 - 10.5 mg/dL LAB CHEMISTRY METHOD 05/28/2024 8:06 PM [facility] AST (SGOT) 8(L) 10 - 42 unit/L LAB CHEMISTRY METHOD 05/28/2024 8:06 PM [facility] ALT (SGPT) 9(L) 10 - 60 unit/L LAB CHEMISTRY METHOD 05/28/2024 8:06 PM EDT [facility] Alkaline Phosphatase 111 42 - 121 unit/L LAB CHEMISTRY METHOD 05/28/2024 8:06 PM EDT [facility] Total Protein 6.2 6.0 - 8.0 g/dL LAB CHEMISTRY METHOD 05/28/2024 8:06 PM EDT [facility] Albumin 2.7(L) 3.2 - 5.0 g/dL LAB CHEMISTRY METHOD 05/28/2024 8:06 PM EDT [facility] Total Bilirubin 0.4 0.0 - 1.4 mg/dL LAB CHEMISTRY METHOD 05/28/2024 8:06 PM EDT [facility] Blood Venous blood specimen / Unknown Venipuncture / Unknown 05/28/2024 6:13 PM EDT 05/28/2024 7:20 PM EDT Norma ASCENCIO LAB BLOOD ORDERABLES Fin al Result [facility] [address] [place] [address], * Rad Onc Msq Treatment Summary (03/31/2024 [...] RADIATION ONCOLOGY from Last [address] [place] [address] [place] [address] MEDICARE Member Subscriber Plan / Payer (Ef fective 2023-Present) Name:Tono May Relation to Subscriber:Self Name:Tono May Payer ID:[id number] Group ID:[id number] Type:Not on file Address: [place] [address] [address] [id number] Advance Directives Documents on File Type Date Recorded Patient Stopperer Assembler Expl anation Advance Directives and Livin g Will 02/12/2024 9:18 AM Shaina Morrow * Full Code - Default (Latest Code Status on File) Date Activated Date Inactivated Comments 05/28/2024 9:40 PM 06/03/2024 2:18 PM This is orde r is used when code status has not been discussed with the patient, or code status is otherwise unknown/unconfirmed To update the patient's code status, place a code status order. Do not modify or discontinue any currently active code status orders. * Full Code - Default Date Activated Date Inactivated Comments 02/17/2024 6:42 [...] Agents on File Name Relationship Healthcare Agent [facility] Care Agent Care Teams Product Marketer Relationship Specialty Start Date End Date Guillermo, MD Sneha [address] [place] [phone] PCP - General 01/23/23
--- OUTSIDE RECORDS SUMMARY | 2024-06-28 14:07 | XMS_ITS | Encounter Summary ---
Author Organization [employer] Address [address] 7[address] [place] [address] Care Team Providers Care Settlement Processor Name Role Phone Sneha Li MD Primary Care Provider +1- [phone] Nona Hanna MD Unavailable Encounter Details Date Type Department Care Team (Late st Contact Info) Description 12/16/2023 Orders Only [facility] [address] [place], [place] [phone] Sneha Li MD [address] [place], [place] [phone] Metastatic squamous cell carcinoma involving anus with [...] is your housing situation today? 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 Lalito Miller MD [address] [address] Gynecologic Oncology 12/31/23 Dr. Samina Diaz [facility] Radiation Oncology 12/04/23 Dr. Pamela Medrano DO, Oncology 11/26/23 [facility] 11/20/23 documented as of this encounter
--- OUTSIDE RECORDS SUMMARY | 2024-06-28 14:07 | XMS_ITS | Encounter Summary ---
Author Organization [employer] Address [address] [place] [address] 7t [place] [address] Care Team Providers Care Portal Administrator Name Role Phone Sneha Li MD Primary Care Provider +1- [phone] Nona Hanna MD Unavailable Encounter Details Date Type Department Care Team (Late st Contact Info) Description 03/19/[address] [facility] [address] [place] [address] [phone] Sneha Li MD [address] [place] [phone] Social History Tobacco Use Types Packs/Day Years [...] Description 07/28/2024 3:30 PM EDT Office Visit [facility] [address] [place] [address] [phone] Sneha Li MD [address] [place] [address] [phone] 08/23/2024 1:30 PM EDT Nurse Only [address] [phone] documented as of this encounter Procedures Procedure Name Priority Date/Time Associated Diagnosis Comments MAMMOGRAPHY Routine 05/23/2020 THINPREP PAP AND HPV MRNA E6/E7 Routine 02/19/2019 12:00 AM EST documented in this encounter Results * Mammography (05/23/2020) HM Mammogram BIRADS 2 Anatomical Region Laterality Modality Other Historical Provider HEALTH MAINTENANCE Final Result * Thinprep PAP and HPV nRNA E6/E7 (02/19/2019 12:00 AM EST) Historical Provider LAB PATHOLOGY ORDERABLES Final Result IMAGING documented in this encounter Visit Diagnoses Not on filedocumented in this encounter Care Teams Portal Administrator Relationship Specialty Start Date End Date Sneha Li MD [address] [place] [address] PCP - General Family Medicine 10/02/18 Nona Hanna MD [address] [place] [address] Drive [address] [place] [address] Urology 04/02/24 Dr. Lalito Miller MD [address] [address] Gynecologic Oncology 12/31/23 Dr. Samina Diaz [facility] Radiation Oncology 12/04/23 Dr. Pamela Medrano DO, Oncology 11/26/23 [facility] 11/20/23 documented as of this encounter
--- OUTSIDE RECORDS SUMMARY | 2024-06-28 14:07 | XMS_ITS | Encounter Summary ---
Author Organization [employer] Address [address] [facility] 7t [place] [address] Care Team Providers Care Customer Support Consultant Name Role Phone Sneha Li MD Primary Care Provider +1- [phone] oNna Hanna MD Unavailable Reason for Visit * Reason Comments Med Refill Encounter Details Date Type Department Care Team ([facility] st Contact Info) Description 01/28/2023 Refill [facility] [address] [place], [place] [phone] Sneha Li MD [address] [place] [address] Wheeze Social History Tobacco Use Types Packs/Day Years Used Date Smoking Tobacco: Every Day Cigarettes Passive Smoke Exposure: Current Smokeless Tobacco: Never Alcohol Use Standard Drinks/Week Comments Never 0 (1 standard drink = 0.6 oz pur e alcohol) Housing Stability Answer Date Recorded What is your housing situation today? I have elidia prince 12/04/[address] you li [...] Description 07/28/2024 3:30 PM EDT Office Visit [facility] [address] [place] [address] Sneha Li MD [address] [place] [address] 08/23/2024 1:30 PM EDT Nurse Only [facility] [address] [place] [address] documented as of this encounter Visit Diagnoses Diagnosis Wheeze Wheezing documented in this encounter Care Teams Customer Support Consultant Relationship Specialty Start Date End Date Sneha Li MD [address] [place] [address] PCP - General Family Medicine 10/02/18 Nona Hanna MD [address] [place] [address] Urology 04/02/24 Dr. Lalito Miller MD [address] [address] Gynecologic Oncology 12/31/23 Dr. Samina iDaz [facility] Radiation Oncology 12/04/23 Dr. Pamela Medrano DO, Oncology 11/26/23 [facility] 11/20/23 documented as of this encounter
--- OUTSIDE RECORDS SUMMARY | 2024-06-28 14:07 | XMS_ITS | Encounter Summary ---
Author Organization [facility] Address [address] [place] [address] Care Team Providers Care Web Analytics Developer Name Role Phone Sneha Li MD Primary Care Provider +1- [phone] Reason for Visit * Imaging (Routine) - Authorized Specialty Diagnoses / Procedures Referred By Contac roderick Referred To Contact Radiology Diagnoses Unspecified lump in the right breast, upper outer quadrant Procedures MG Mammo Digital Diagnostic w Bernadine bilat MG Mammo Digital Diagnostic w Bernadine Right Sneha Li MD [address] [place] [address] Phone: tel: fax: [facility] [place] Referral ID Status Reason Start Date Expiration Date V isits Requested Visits Authorized [id number] Authorized 05/13/2024 05/13/2025 1 1 Encounter Details Date Type Department Care Team (Latest Contact Info) Description 06/24/2024 2:02 PM EDT - 06/24/2024 11:59 PM EDT Hospital [facility] [address] [phone] Unspecified lump in the right breast, [...] for your loved ones. For example, child day care provider or elderly care for an older adult? [...] PM EDT documented as of this encounter Last Filed Vital Signs Vital Sign Reading Time Taken Comments Blood Pressure - - Pulse - - Temperature - - Respiratory Rate - - Oxygen Saturation - - Inhaled Oxygen Concentration - - Weight 47.2 kg (104 lb) 06/24/2024 2:13 PM EDT Height 157.5 cm (5' 2 ) 06/24/2024 2:13 PM EDT Body Mass Index 19.02 06/24/2024 2:13 PM EDT documented in this encounter Functional Status * [...] Info) Description 06/29/2024 1:[address] [facility] Radiation Oncology [address] [place] [phone] Samina Diaz MD [address] [place] [address] 07/12/2024 2:15 PM EDT Office Visit [facility] Hematology Oncology [address] [place] [phone] Arlen Medrano, DO [address] [place] [address] documented as of this encounter Procedures Procedure Name Priority Date/Time Associated Diagnosis Comments MG MAMMO DIGITAL DIAGNOSTIC W BERNADINE BILAT Routine 06/24/2024 3:36 PM EDT Unspecified lump in the right breast, upper outer quadrant documented in this encounter Results * MG Mammo Digital Diagnostic w Bernadine bilat (06/24/2024 3:36 PM EDT) Anatomical Region [...] BILATERAL Mammography location: [facility] [address] [place], [address] -------- FINAL REPORT -------- Dictated By: Alvin White Dictated Date: 06/24/2024 15:43 ET Assigned Physician: Alvin White Reviewed and Electronically Signed By: Alvin White Signed Date: 06/24/2024 15:52 ET Workstation ID: [id number] Transcribed By: Self Edit Transcribed Date: 06/24/2024 [...] concern. Computer-aided detection was employed with the Flexuspine 3-D. TISSUE DENSITY: The breasts are heterogeneously [...] BILATERAL Mammography location: [facility] [address], [address] -------- FINAL REPORT -------- Dictated By: Alvin White Dictated Date: 06/24/2024 15:43 ET Assigned Physician: Alvin White Reviewed and Electronically Signed By: Alvin White Signed Date: 06/24/2024 15:52 ET Workstation ID: [id number] Transcribed By: Self Edit Transcribed Date: 06/24/2024 15:48 ET Sneha Li MD IMG BI PROCEDURES Final Re sult documented in this encounter Visit Diagnoses Diagnosis Unspecified lump in the right breast, upper outer quadrant documented in this encounter Care Teams Web Analytics Developer Relationship Specialty Start Date End Date Sneha Li MD [address] [place] [phone] PCP - General 01/23/23 documented as of this encounter
--- OUTSIDE RECORDS SUMMARY | 2024-06-28 14:07 | XMS_ITS | Encounter Summary ---
Author Organization [employer] Address [address] [facility] 7t [place] [address] Care Team Providers Care Network Support Name Role Phone Sneha Li MD Primary Care Provider +1- [phone] Nona Hanna MD Unavailable Encounter Details Date Type Department Care Team (Late st Contact Info) Description 01/22/2023 Orders Only [facility] [address] [place], [place] [phone] Sneha Li MD [address] [place], [place] [phone] Low vitamin D level Social History Tobacco Use Types Packs/Day Years Used Date Smoking Tobacco: Every Day Cigarettes Passive Smoke Exposure: Current Smokeless Tobacco: Never Alcohol Use Standard Drinks/Week Comments Never 0 (1 standard drink = 0.6 oz pur e alcohol) Housing Stability Answer Date Recorded What is your housing situation today? I have elidiatez morrison 12/04/[address] you [...] Description 07/28/2024 3:30 PM EDT Office Visit [address] [address] Sneha Li MD [address] [place] [address] 08/23/2024 1:30 PM EDT Nurse Only [facility] [address] [place] [address] documented as of this encounter Visit Diagnoses Diagnosis Low vitamin D level documented in this encounter Care Teams Network Support Relationship Specialty Start Date End Date Sneha Li MD [address] [place] [address] PCP - General Family Medicine 10/02/18 Nona Hanna MD [address] [place] [address] Urology 04/02/24 Dr. Lalito Miller MD [address] [address] Gynecologic Oncology 12/31/23 Dr. Samina Diaz [facility] Radiation Oncology 12/04/23 Dr. Pamela Medrano DO, Oncology 11/26/23 [facility] 11/20/23 documented as of this encounter
--- OUTSIDE RECORDS SUMMARY | 2024-06-28 14:07 | XMS_ITS | Patient Health Record ---
Author Organization [facility] Address [address] [place] [address] Care Team Providers Care Surety Bond Agent Name Role Phone Sneha Li MD Primary Care Provider Fariba randalnathalyZaid Mondragon [phone] Results Component Value Reference Range Notes Pathology Reviewed date:11/10/2023 06:52:10 PM Interpretation: Performing Lab:[facility], [address] [place] [phone] Notes/Report: --- Name: T Age/Sex: 52/F : 1970 Unit#: [id number] Attend Dr: James Cramer MD Re10/28/23 Status : DIS IN Location: [facility] 363-1 Disch: 11/08/23 --- SPEC : [id number] RECD : 11/07/239527 STATUS: MITZI LOONEY NUM: [id number] SHANTA: 11/06/23-[address]: Zaid Awad MD ENTERED: 11/07/23- SP TYPE: Surgical OTHR DR: Sneha Li MD [facility],James AVILEZ ORDERED: HE Stain/3, Gross Micro L4 Addendum Addendum 1 Entered: 11/10/23-1332 Additional history: Perianal/anal tissue is also abnormal on exam. The differential remains anal vs. director of student financial services primary. Addendum Signed (signature on file) Regina Jose 11/10/23 1334 --- Diagnosis Rectal mass: Invasiv e squamous cell carcinoma, moderate-poorly differentiated. Comment: The differential includes anal and director of student financial services primary tumors. The mass involves the cervix and vagina on imaging and this site may be the origin. Clinical correlation is necessary. Clinical History Pre-Op Dx: Metastati c cancer Post-Op Dx: Rectal mass Microscopic Description Histologic sections show an infiltration of tumor with fibrosis. ?The malignant cells are in irregular sheets and groups. The cells have scant to moderate eosinophilic cytoplasm with intercellular bridge s, focal keratinization, increased nuclear:cytoplasmic ratios, irregular nuclei, nucleoli, ma ny mitoses, and focal necrosis. Material Received Rectal mass Gross Description Received in formalin labeled ?bx's rectal mass? are several minute to 0.25 cm pale, semitranslucent, kuhn-white irregular tissue fragments aggregating 0.8 x 0.6 x 0.2 cm, submitted in toto in a cassette labeled A. CONTINUED ON NEXT PAGE --- Name: Tono Age/Sex: 52/F : 1970 Unit#: [id number] Attend Dr: James Cramer MD Re10/28/23 Status : DIS IN Location: [facility] 363-1 Disch: 11/08/23 --- SPEC : [id number] REC STATUS: MITZI LOONEY NUM: [id number] SHANTA: 11/06/23-[address] [facility] [address]: Zaid Awad MD ENTERED: 11/07/23- SP TYPE: Surgical OTHR DR: Sneha Li MD, Theodore MD ORDERED: HE Stain/3, Gross Micro L4 Gross Description (Continued) CEDS This case was review ed intradepartmentally. Results given to Emely Black by secure text by Dr. Garcia on 11/10/2023 at 1:10 pm. Copies To: Sneha Li MD [address] [address] James Cramer MD [address] [place] [address] Zaid Awad MD [facility] [address] [place] [address] --- Signed (signature on file) Regina Quemado 11/10/23 1316 --- END OF REPORT Complete Blood Count Man Shabana Reviewed date:11/08/2023 08:15:59 PM Interpretation: Performing Lab:[facility], [address] [place] [phone] Notes/Report: White Blood Count 12.0 4.8-10.8 X10*3/uL [...] 2-11 % Neutrophils Absolute Manual 6.4 2.0-8.3 X10*3/uL Lymphocytes Absolute Manual 4.6 1.2-4.9 X10*3/uL Atypical Lymph Absolute Manual 0.4 Monocytes Absolute Manual 0.7 0.1-1.2 X10*3/uL Smudge Cells PRESENT Platelet Estimate NORMAL NORMAL Platelet Morphology Comment NORMAL RBC Morphology NOTED Hypochromasia 1+ (5-14) Basic Metabolic Panel Meri lilly Reviewed date:11/08/2023 08:15:44 PM Interpretation: Performing Lab:[facility], [address] [place] [phone] Notes/Report: Sodium 141 135-145 mmol/L Potassium 4.0 [...] Glomerular Filt Rate > 60 NOTE: For -Burkinan individuals, multiply the result by 1.210. Chronic Kidney Disease: Estimated GFR < 60 mL/min/1.73m2 Severe Kidney Disease: Estimated GFR < 15 mL/min/1.73m2 Glucose Fasting 106 60-99 mg/dL A fasting glucose from 100-125 mg/dl is considered impaired (pre-diabetes). 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
--- OUTSIDE RECORDS SUMMARY | 2024-06-28 14:07 | XMS_ITS | Encounter Summary ---
Author Organization [employer] Address [address] [facility] 7t [place] [address] Care Team Providers Care Chain Mortiser Operator Name Role Phone Sneha Li MD Primary Care Provider +1- [phone] Nona Hanna MD Unavailable Reason for Visit * Reason Onset Date Comments Nurse Triage 01/01/2023 Encounter Details Date Type Department Care Team ([facility] st Contact Info) Description 01/01/2023 Telephone [facility] [address] [place], [place] [phone] Sneha Li MD [address] [place] [address] Nurse Triage Social History Tobacco Use Types [...] 01/01/2023 2:55 PM EST Triage call with aviation manager ID [id number]. Pt advocate Shayne Golden is [...] requested. Earliest apt is 01/22/23 at 1100am. aviation manager is needed at time of visit. Protocol [...] The caller accepted this outcome Please call [phone] documented in this encounter Plan of Treatment Upcoming Encounters Date Type Department Care Team (Late st Contact Info) Description 07/28/2024 3:30 PM EDT Office Visit [address] [address] Sneha Li MD [address] [place] [address] 08/23/2024 1:30 PM EDT Nurse Only [address] [address] documented as of this encounter Visit Diagnoses Not on filedocumented in this encounter Care Teams Chain Mortiser Operator Relationship Specialty Start Date End Date Sneha Li MD [address] [place] [address] PCP - General Family Medicine 10/02/18 Nona Hanna MD [address] [place] [address] Urology 04/02/24 Dr. Lalito Miller MD [address] [address] Gynecologic Oncology 12/31/23 Dr. Samina Diaz [facility] Radiation Oncology 12/04/23 Dr. Pamela Medrano DO, Oncology 11/26/23 [facility] 11/20/23 documented as of this encounter
--- OUTSIDE RECORDS SUMMARY | 2024-06-28 14:07 | XMS_ITS | Encounter Summary ---
Author Organization [employer] Address [address] 7[address] [place] [address] Care Team Providers Care Pull Worker Name Role Phone Sneha Li MD Primary Care Provider +1- [phone] Nona Hanna MD Unavailable Encounter Details Date Type Department Care Team (Late st Contact Info) Description 10/24/2023 Orders Only [facility] [address] [place], [place] [phone] Sneha Li MD [address] [place], [place] [phone] Social History Tobacco Use Types Packs/Day Years [...] Description 07/28/2024 3:30 PM EDT Office Visit [facility] [address] [place] [address] Sneha Li MD [address] [place] [address] 08/23/2024 1:30 PM EDT Nurse Only [facility] [address] [place] [address] documented as of this encounter Visit Diagnoses Not on filedocumented in this encounter Additional Health Concerns Assessment Noted Time PHQ-9 Depression Total Score: 4 10/08/19 24 9:22 AM EDT documented as of this encounter Care Teams Pull Worker Relationship Specialty Start Date End Date Sneha Li MD [address] [place] [address] PCP - General Family Medicine 10/02/18 Nona Hanna MD [address] [place] [address] Urology 04/02/24 Dr. Lalito Miller MD [address] [address] Gynecologic Oncology 12/31/23 Dr. Samina Diaz [facility] Radiation Oncology 12/04/23 Dr. Pamela Medrano DO, Oncology 11/26/23 [facility] 11/20/23 documented as of this encounter
--- OUTSIDE RECORDS SUMMARY | 2024-06-28 14:07 | XMS_ITS | Encounter Summary ---
Author Organization [employer] Address [address] [facility] 7t [place] [address] Care Team Providers Care Quality Assurance Group Leader Name Role Phone Sneha Li MD Primary Care Provider +1- [phone] Nona Hanna MD Unavailable Encounter Details Date Type Department Care Team (Late st Contact Info) Description 01/30/2024 Orders Only [facility] [address] [place], [place] [phone] Sneha Li MD [address] [place], [place] [phone] Metastatic squamous cell carcinoma involving anus with [...] your housing situation today? 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 Lalito Miller MD [address] [address] Gynecologic Oncology 12/31/23 Dr. Samina Diaz [facility] Radiation Oncology 12/04/23 Dr. Pamela Medrano DO, Oncology 11/26/23 [facility] 11/20/23 documented as of this encounter
--- OUTSIDE RECORDS SUMMARY | 2024-06-28 14:07 | XMS_ITS ---
Author Organization [facility] Address [address] [place] [address] Care Team Providers Care Biochemistry Technician Name Role Phone Guillermo, Sneha AVILEZ Primary Care Provider +1- [phone] Active Problems Problem Noted Date Diagnosed Date Anal pain 05/28/2024 Rectal mass 02/05/2024 Schizophrenia (CMS/HCC V24, CMS/HCC V28) 024 Primary squamous cell carcin comfort of anus (CMS/HCC V24, CMS/HCC V28) 12/16/2023 Cancer Staging:Clinical:Stage IIIC(cT4, cN1, cM0) - Signed by Samina Diaz MD on 01/01/2024 S/P colostomy ([facility]/HCC V24, [facility] V28) 024 Adult failure to thrive 10/24/2023 Overview (04/26/2024): -Will prescribe Ensure 10/24/23 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 -care transferred by [facility] oncology to [facility] -Seen by Dr. Shayne Brock, general surgery 12/16/2023 for consultation regarding management of locally advanced squamous cell cancer . This was requested by radiation oncology however they deferred to Dr. Pelayo at [facility] as he did the colostomy on her -seen 12/24/23 with Pamela Medrano DO, Hematology/Oncology at [facility]: pet scan which shows involvement of only [...] is Dr. Samina Diaz -12/25/23 seen by Geodetic Advisor Onc Dr Miller :The tumor is quite [...] examination to be formed under anesthesia. -12/29/23 food and beverage assistant onc examination under anesthesia with biopsies of cervix, vagina, vulva, and possible cystoscopy and rigid proctoscopy for further evaluation of the extent of malignancy. -coordinate with Dr. Samina Diaz to see if she would be available during the surgery to also assess the tumor and aid with radiation planning. -follow up with heme onc with Talia Blanchard -follow up with food and beverage assistant onc Paul Yanez -Pain medication sent by [...] Other constipation 06/25/2023 Other hemorrhoids 06/25/2023 Schizophrenia ([facility] V24, [facility] V28) 024 Congenital deafness 03/21/2023 COPD (chronic obstructive pu lmonary disease) ([facility] V24, [facility] V28) 03/21/2023 Nicotine dependence 03/21/2023 Class 1 obesity 01/22/2023 Status post laparoscopic cholecystectomy 023 Dyslipidemia 07/31/2022 Overview (04/26/2024): Lab Results Component Value Date TRIG 130 01/22/2023 CHOL 132 01/22/2023 LDLCHOLCAL 77 01/22/2023 HDL 29 (L) 01/22/2023 -continue lifestyle modifications Low vitamin D level 07/31/2022 Overview (04/26/2024): Lab Results Component Value Date [id number] 10.6 (L) 01/22/2023 -vit D 50,000 weekly [...] deafness 07/31/2022 Overview (04/26/2024): -Has services with [employer]. -Needs ASL interpreters for all speciality appointments. Cigarette nicotine dependence 07/31/2022 Overview (04/26/2024): In precontemplative stages of quitting. Declines medication. -Cigg/day: 20 -Age started: 17 -Total years smokin -Pack year history: 37 Encouraged smoking cessation resources such as pharmacomtherapy, [facility] smoking cessation group, and [facility] pharmacy smoking cessation clinic. She will [...] f/u with Dr. Peterson. -Her caseworkr at [facility] is Matt #[phone] -Continue with therapist Cara Ramsay. -Prescribed 0.5 mg Lorazepam, BID on recent admission to [facility] on 08/27/23 and Risperidone was increased [...] booster -counseled smoking cessation. Current Oncology Plans No current plan information found. Past Plans Oncology Treatment Plan Name Start Date Discontinue Date Treatment Medications Discontinue Reason Plan Provider Cycles Fluorouracil / MitoMYcin (D1, D29) with Concurrent Radiation 5 05/31/2024 5-FU (ADRUCIL) chemo infusion 100 mL - for home use solution5-FU (ADRUCIL) chemo infusion 250 mL - for home use solutionmitoMYcin (MUTAMYCIN) chemo IV syringe 0.5 mg/ml (20 mg vial) - Therapy Complete Arlen Medrano, DO 1 of 1 cycle started Radiation Treatments * Treatment Site Started On [...]
--- OUTSIDE RECORDS SUMMARY | 2024-06-28 14:07 | XMS_ITS ---
Author Organization [facility] Address [address] [place] [address] Care Team Providers Care Automation Operator Name Role Phone Guillermo AVILEZ, Sneha Primary Care Provider Fariba Zaid Hinojosa [phone] RE[address] V[address]IT ab[address] ct scan colon Encounters Encounter Location Date Provider Diagnosis [facility] [address] [place], [place] [phone] 11/06/2023 Zaid Awad Plan Of Treatment No Information Progress Notes * MayDOB:1970 (53 yo F)Acc No.[id number]:11/06/2023 COLON WITH MAC Patient:?May Provider:?Zaid Awad MD :1970???Age:52 Y???Sex:Female D ate:11/06/2023 Address:[address] [place] [address] [address] ROMY Ovalle, [facility] Pcp:Sneha Li MD Subjective: * Chief Complaints: * ???1. Abn ct scan colon. * Medical History:? Objective: * Vitals:? Assessment: Plan: * Treatment: * * The named appointment provid er may or may not be the originator of this progress note, and it is not deemed complete until electronically signed by the appointment provider. Sign off status: Pending * Provider:?Zaid Awad MD Date:? 024 Generated for Rodney smith/Louis/Matiasitting on:?06/28/2024 02:06 PM EDT
--- NOTE | 2024-06-28 14:28 | AM.OFFVISNUR ---
Intake Visit Reasons: cath change Allergies No Known Allergies [No Known Allergies*] Allergy (Verified 05/24/24 11:40) Office Procedures Bladder/Catheter Procedure Details: Patient presents to office for catheter change. 14fr rocha catheter 10ml balloon flip valve removed, new 14fr rocha catheter with 10ml balloon flip valve inserted. Patient tolerated exchange well. Patient reports 1 week of burning at urethra and urine odor. Once new catheter placed, urine collected and dipped in office. Reviewed results with Dr. Hanna and script for Macrobid BIDx7 days sent to pharmacy. Notified patient plan for her to take full course and will call her if abx need to be changed. Patient to make follow up in 4 weeks with provider and nurse for next cath change. Patient is deaf, offered sign language services, but patient declined and able to communicate appropriately reading lips and patients career information specialist at the office visit able to also relay information to patient. [id number] Temporary Bladder Catheter Procedure code (CPT) selection complete Assessment & Plan Assessment & Plan Orders: Orders AMB Bladder/Catheter Procedure Today R33.9 - Retention of urine, unspecified Medications: New nitrofurantoin monohyd/m-cryst 100 mg (Macrobid) must administer with a meal/food 100 mg PO BID 14 caps 0RF 7 days Coding CPT Codes Bladder/Catheter Procedure - CPT: 50450-Wmpibe Temporary Bladder Catheter ([id number])
== END 2024-06-28 14:32 | disposition home or self-care (01) ==
LOC: HO.HUSH 14:02
PROVIDERS: PCP Family Medicine; Visit Provider Urology
DX: Z13.9 Encounter for screening, unspecified (principal)

== ENCOUNTER 2024-06-28 14:02 | Outpatient (REF) | payer OTHER, SELFPAY ==
--- OUTSIDE RECORDS SUMMARY | 2024-06-28 17:08 | XMS_ITS | Encounter Summary ---
Author Organization [employer] Address [address] [facility] 7t [place] [address] Care Team Providers Care Supervisor Contact Lens Name Role Phone Guillermo, Sneha AVILEZ Primary Care Provider +1- [phone] Nona Hanna MD Unavailable Reason for Visit * Reason Onset Date Comments Med Refill 06/28/2024 Encounter Details Date Type Department Care Team (Late st Contact Info) Description 06/28/2024 Refill [facility] [address] [place] [address] Jennifer Evans, ANP [address] [place] [address] Metastatic squamous cell carcinoma involving anus with [...] Description 07/28/2024 3:30 PM EDT Office Visit [facility] [address] [place] [address] Sneha Li MD [address] [place] [address] 08/23/2024 1:30 PM EDT Nurse Only [address] [address] documented as of this encounter Visit Diagnoses Diagnosis 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 [address] Gynecologic Oncology 12/31/23 Dr. Samina Diaz [facility] Radiation Oncology 12/04/23 Dr. Pamela Medrano DO, Oncology 11/26/23 [facility] 11/20/23 documented as of this encounter
--- OUTSIDE RECORDS SUMMARY | 2024-06-28 17:08 | XMS_ITS | Clinical Summary ---
Author Organization [employer] Address [address] [facility] [address] [place] [address] Care Team Providers Care Cutter Operator Name Role Phone Sneha Li MD Primary Care Provider +1- [phone] Nona Hanna MD Unavailable Allergies No known [...] Once per day. Active Blood Pressure Monitor [facility] BP daily 1 each [...] be different from the original. [facility] Angle Shear Set Up Operator: Helena, member services number [phone], provider services line, , option 4 they told me Helena Perez is career information specialist who work with [facility] phone number . I called that number Weed Thinner Agency: Clara, station baggage agent Shari Caicedokhoi [phone] Problem Noted Date Diagnosed Date Weakness 05/25/2024 Assessment & Plan (05/25/2024 7:35 PM EDT): Pt with chronic severe illness, metastatic cancer with worsening weakness, bilateral eye drainage, indwelling rocha and lives alone. She refuses hospital and states she will not go with EMS if EMS called. She agrees to [facility] visit who will see her tonight. Her rehabilitation caseworker was updated and anaya see her tomorrow. [...] US and mammo to be done at [facility]. php wordpress developer will be needed. -Ordered mammogram and US, scheduled for 06/03/24 Assessment & Plan (05/14/2024 11:25 AM EDT): Call received from Dr Diaz radiation oncologist who reports pt states she has right breast mass that is new. On exam Dr Diaz noted 3cm disc mass in upper outter quadrannt. Pts last mammo normal 07/2023. Will order urgent US and mammo to be done at [facility]. php wordpress developer will be needed. -Ordered mammogram and US, [...] placement will be scheduled. -care transferred by [facility] oncology to [facility] -Seen by Dr. Shayne Brock, general surgery 12/16/2023 for consultation regarding management of locally advanced squamous cell cancer . This was requested by radiation oncology however they deferred to Dr. Pelayo at [facility] as he did the colostomy on her -seen 12/24/23 with Pamela Cooper DO, Hematology/Oncology at [facility]: pet scan which shows involvement of [...] is Dr. Samina Diaz -12/25/23 seen by Piece Dyer Onc Dr Miller :The tumor is quite [...] examination to be formed under anesthesia. -12/29/23 physician advisor onc examination under anesthesia with biopsies of cervix, vagina, vulva, and possible cystoscopy and rigid proctoscopy for further evaluation of the extent of malignancy. -coordinate with Dr. Samina Diaz to see if she would be available during the surgery to also assess the tumor and aid with radiation planning. -follow up with heme onc with Talia Blanchard -follow up with physician advisor onc Paul Yanez -Pain medication sent by [...] be replaced or removed by urology at [facility] -Cancer responded well to radiation, has follow-up with Oncologist June 29, 2024. 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 Reports decreased oxycodone to 10 mg tabs only 05/14/24 -Admitted to [facility] 06/02/24 for failure to thrive and pain, discharged to rehab and left rehab AMA -Admitted to [facility] 06/11/24 for abdominal pain -Not from [...] placement will be scheduled. -care transferred by [facility] oncology to [facility] -Seen by Dr. Shayne Brock, general surgery 12/16/2023 for consultation regarding management of locally advanced squamous cell cancer . This was requested by radiation oncology however they deferred to Dr. Pelayo at [facility] as he did the colostomy on her -seen 12/24/23 with Pamela Cooper DO, Hematology/Oncology at [facility]: pet scan which shows involvement of [...] is Dr. Samina Diaz -12/25/23 seen [address] Piece Dyer Onc Dr Miller :The tumor is quite [...] examination to be formed under anesthesia. -12/29/23 physician advisor onc examination under anesthesia with biopsies of cervix, vagina, vulva, and possible cystoscopy and rigid proctoscopy for further evaluation of the extent of malignancy. -coordinate with Dr. Samina Diaz to see if she would be available during the surgery to also assess the tumor and aid with radiation planning. -follow up with heme onc with Talia Blanchard -follow up with physician advisor onc Paul Yanez -Pain medication sent by [...] be replaced or removed by urology at [facility] -Cancer responded well to radiation, has [...] placement will be scheduled. -care transferred by [facility] oncology to [facility] -Seen by Dr. Shayne Brock, general surgery 12/16/2023 for consultation regarding management of locally advanced squamous cell cancer . This was requested by radiation oncology however they deferred to Dr. Pelayo at [facility] as he did the colostomy on her -seen 12/24/23 with Pamela Cooper DO, Hematology/Oncology at [facility]: pet scan which shows involvement of [...] is Dr. Samina Diaz -12/25/23 seen [address] Piece Dyer Onc Dr Miller :The tumor is quite [...] examination to be formed under anesthesia. -12/29/23 physician advisor onc examination under anesthesia with biopsies of cervix, vagina, vulva, and possible cystoscopy and rigid proctoscopy for further evaluation of the extent of malignancy. -coordinate with Dr. Samina Diaz to see if she would be available during the surgery to also assess the tumor and aid with radiation planning. -follow up with heme onc with Talia Blanchard -follow up with physician advisor onc Paul Yanez -Pain medication sent by [...] be replaced or removed by urology at [facility] -Cancer responded well to radiation, has [...] placement will be scheduled. -care transferred by [facility] oncology to [facility] -Seen by Dr. Shayne Brock, general surgery 12/16/2023 for consultation regarding management of locally advanced squamous cell cancer . This was requested by radiation oncology however they deferred to Dr. Pelayo at [facility] as he did the colostomy on her -seen 12/24/23 with Pamela Cooper DO, Hematology/Oncology at [facility]: pet scan which shows involvement of [...] is Dr. Samina Diaz -12/25/23 seen [address] D[address] Onc [address] Miller :The tumor is quite [...] examination to be formed under anesthesia. -12/29/23 physician advisor onc examination under anesthesia with biopsies of cervix, vagina, vulva, and possible cystoscopy and rigid proctoscopy for further evaluation of the extent of malignancy. -coordinate with Dr. Samina Diaz to see if she would be available during the surgery to also assess the tumor and aid with radiation planning. -follow up with heme onc with Talia Blanchard -follow up with physician advisor onc Paul Yanez -Pain medication sent by [...] be replaced or removed by urology at [facility] Assessment & Plan (11/19/2023 4:54 PM [...] for CK20. -hospitalized for pain management at [facility] 10/2023 - awaiting outpatient PET-CT . [...] PET scan trying to be arranged at [facility] and they should hear from them. Assessment [...] f/u with Dr. Peterson. -Her caseworkr at [facility] is [phone] -Continue with therapist Cara Ramsay. -Prescribed 0.5 [...] f/u with Dr. Peterson. -Her caseworkr at [facility] is [employer] #[phone] -Continue with therapist Cara Ramsay. -Prescribed 0.5 [...] visit for hallucination 01/14/2021. Her caseworkr at [facility] is [phone] Continue with therapist Cara Ramsay. Assessment & [...] visit for hallucination 01/14/2021. Her caseworkr at [facility] is Matt #[phone] Continue with therapist Cara Ramsay. Cigarette nicotine dependence 07/31/2022 Overview (10/08/2023): In precontemplative stages of quitting. Declines medication. -Cigg/day: 20 -Age started: 17 -Total years smokin -Pack year history: 37 Encouraged smoking cessation resources such as pharmacomtherapy, [facility] smoking cessation group, and [facility] pharmacy smoking cessation clinic. She will try [...] as pharmacomtherapy, [facility] smoking cessation group, and [facility] pharmacy smoking cessation clinic. She will try [...] as pharmacomtherapy, [facility] smoking cessation group, and [facility] pharmacy smoking cessation clinic. She will try [...] as pharmacomtherapy, [facility] smoking cessation group, and [facility] pharmacy smoking cessation clinic -LDCT: 11/09/23 revealed [...] Overview (10/08/2023): Lab Results Component Value Date [id number] 10.6 (L) 01/22/2023 -vit D 50,000 weekly started 01/22/2023 -ordered Vitamin D level ordered 10/08/23 Assessment & Plan (10/08/2023 9:30 AM EDT): Lab Results Component Value Date NJVB28UGQMH 10.6 (L) 01/22/2023 -vit D 50,000 weekly started 01/22/2023 -ordered Vitamin D level ordered 10/08/23 Preventative health care 07/31/2022 Overview (10/07/2023): -next physical exam due after 01/23/2024. -followed by [facility] in [place], last seen May 2022, will request note 07/31/2022. -edentulous -health care proxy paperwork filed 06/25/23 Assessment & Plan (10/08/2023 9:44 AM EDT): -next physical exam due after 01/23/2024. -followed by [facility] in [place], last seen May 2022, will request note 07/31/2022. -[facility]entulous -health care proxy paperwork filed 06/25/23 Assessment & Plan (06/25/2023 10:29 AM EDT): -next physical exam due after 01/23/2024. -She goes to [facility] in [place], last seen May 2022, will request note 07/31/2022. -edentulous -health care proxy paperwork filed 06/25/23 Assessment & Plan (01/22/2023 11:44 AM EST): Next PE due after 01/23/2024 -She goes to [facility] in [place], last seen May 2022, will request note 07/31/2022. Assessment & Plan (07/31/2022 11:29 AM EDT): Next PE due after 08/01/2023. -She goes to [facility] in [place], last seen May 2022, will request note 07/31/2022. Colon cancer screening 07/31/2022 Overview (05/14/2024): -referral placed 03/2021 and to [facility] GI 08/01/22 - pt has appointment 07/15/23 at 11:30am it will be at [address] [facility] interpretation services requested. Ollie pt's personal care home administrator is aware -Saw GI and has colonoscopy scheduled for 01/13/24 -I called over to [facility] GI and will send new labs revealing new anemia. Will fax to [phone]. -Encouraged to consider getting colonoscopy despite concern with prep 05/14/24 Assessment & Plan (05/14/2024 11:26 AM EDT): -referral placed 03/2021 and to [facility] GI 08/01/22 - pt has appointment 07/15/23 at 11:30am it will be at [address] [facility] interpretation services requested. Ollie pt's personal care home administrator is aware -Saw GI and has colonoscopy scheduled for 01/13/24 -I called over to [facility] GI and will send new labs revealing new anemia. Will fax to [phone]. -Encouraged to consider getting colonoscopy despite concern with prep 05/14/24 Assessment & Plan (10/08/2023 1:48 PM EDT): -referral placed 03/2021 and to [facility] GI 08/01/22 - pt has appointment 07/15/23 at 11:30am it will be at [facility] in [facility] interpretation services requested. Ollie pt's personal care home administrator is aware -Saw GI and has colonoscopy scheduled for 01/13/24 -I called over to [facility] GI and will send new labs revealing new anemia. Will fax to [phone]. 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) 06/22/2024 9:30 AM EDT Office Visit [address] [address] Noreen Montgomery MD 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 ([facility]/HCC) (Primary Dx); Hypotension, unspecified hypotension type; Bilateral deafness; Cigarette nicotine dependence without complication 06/22/2024 Travel 06/21/[address] [address] Noreen Montgomery MD CHART PREP 06/17/2024 Patient Outreach [address] [address] Sneha Li MD Transition Of Care (Tcm) (Discharge request) 06/09/[address] [address] Norma Astorga, Calli discharge request 06/07/2024 Patient Outreach [address] [address] Sneha Li MD Transition Of Care (Tcm) (HDF-Scheduled (direct)) 05/26/[address] [address] Sneha Li MD 05/25/2024 5:20 PM EDT Telemedicine [facility] [address] [place] [phone] Sneha Li MD Weakness (Primary Dx); Eye drainage 05/25/2024 Travel 05/21/[address] [address] Sneha Li MD 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 ([facility]/HCC) 05/17/[address] [address] Sneha Li MD Appointment Request 05/14/2024 11:00 AM EDT Telemedicine [address] [address] Sneha Li MD 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) (Primary Dx); Mass of upper outer quadrant of right breast; S/P colostomy (CMS/HCC); Moderate chronic obstructive pulmonary disease (CMS/HCC); Calcification of indwelling Rocha catheter, subsequent encounter; Constipation, unspecified constipation type; Schizophrenia, unspecified type (CMS/HCC); Tobacco abuse; Colon cancer screening; Bilateral deafness 05/14/2024 Travel 05/12/2024 Orders Only [address] [address] Sneha Li MD Mass of upper outer quadrant of right breast (Primary Dx) 05/12/[address] [address] Sneha Li MD call back needed 05/07/2024 Orders Only GENERIC EXTERNAL DATA DEPARTMENT Provider, Generic External Data 04/27/[address] [address] Sneha Li MD Paperwork/Forms 04/22/[address] [address] Sneha Li MD 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 ([facility]/HCC) 04/19/[address] [address] Sneha Li MD Appointment Request 04/16/2024 11:45 AM EST Telemedicine [address] [address] Sneha Li MD 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 ([facility]/HCC) (Primary Dx); Tobacco abuse; Bilateral deafness from [...] Description 07/28/2024 3:30 PM EDT Office Visit [facility] MEDICINE [address] [place] [address] [phone] Sneha Li MD [address] [place] [phone] 08/23/2024 1:30 PM EDT Nurse Only [facility] MEDICINE [address] [place] [address] [phone] Health Maintenance Due Date Last Done Comments [...] 3:34 PM EDT 05/07/2024 4:46 PM EDT Comment:[facility] - 05/09/2024 7:34 AM EDT Escherichia [...] GENERAL ORDERABLES Final Result Performing Organization Address [facility]/ZIP Co de Phone Number [facility] [address] [place] [address] [phone] * (ABNORMAL) Hm Colonoscopy (11/06/2023) Pathologist [facility] Colonoscopy Abnormal( A) Normal Comment:rectal mass Historical Provider HEALTH MAINTENANCE Final Result * HIV-1/2 Antigen and Antibodies, Fourth Generation, with Reflexes (10/08/2023 10:52 AM EDT) [facility] HIV AB/AG Nonreactive Nonreactive [facility] Comment:HIV-1 p24 Ag and/or HIV-1/HIV-2 Ab not detected.A test result that is nonreactive does not exclude thepossibility of exposure to or infection with HIV-1 and/orHIV-2. Nonreactive results in this assay for individualswith prior exposure to HIV-1 and/or HIV-2 may be due toantigen and antibody levels that are below the limit ofdetection of this assay.The [employer] HIV Ag/Ab Combo assay result andsupplemental assay results should be interpreted inconjunction with the patient's clinical presentation,history and other laboratory results. If the results areinconsistent with clinical evidence, additional testing issuggested to confirm the result. 10/08/2023 10:5 2 AM EDT 10/08/2023 10:52 AM EDT Sneha Li MD LAB BLOOD ORDERABLES Final Result Performing Organization Address City/[facility]/ZIP Co de Phone Number [facility] [address] [place] [address] [phone] * Hemoglobin A1c (10/08/2023 10:52 AM EDT) [facility] Hemoglobin A1c 5.7 <6.0 % [facility] Comment:Hemoglobin A1C Refer ence Range Adults: 4.8 - 6.0 % Non diabetic: < 6.0 % Goal: < 7.0 %Additional Action Suggested: > 8.0 %Note: Hemoglobin A1c results are invalid for patients with abnormal amounts of HbF. Blood transfusions may impact the HbA1c concentration in the patient sample. Estimated Average Glucose 117 mg/dL [facility] Comment:eAG = Estimated ave rage glucose which is %A1C expressed asaverage glucose, using the formula of the I9M-NospgsjAqfpglb Glucose study (ADAG), Diabetes Care, Vol.31,#8,Sep. 2007 10/08/2023 10:5 2 AM EDT 10/08/2023 10:52 AM EDT us Sneha Li MD LAB BLOOD ORDERABLES Final Result [facility] [address] [place] [phone] * (ABNORMAL) Lipid Panel, Standard (10/08/2023 10:52 AM EDT) Triglycerides 161(H) <150 mg/dL [facility] Comment:Desirable Triglyceri de: less than 150 mg/dLBorderline High Triglyceride 150-199 mg/dLHigh Triglyceride: 200-499 mg/dLVery High Triglyceride: greater than or equal to 5OO mg/dL Cholesterol 97 <200 mg/dL [facility] Comment:Desirable Cholestero l: less than 200 mg/dLBorderline High Cholesterol: 200-239 mg/dLHigh Cholesterol: greater than 239 mg/dL LDL Cholesterol Calculated 40 <100 mg/dL [facility] Comment:Desirable LDL: less than 100 mg/dLNear Optimal/Above Optimal LDL: 110- 129 mg/dLBorderline High LDL: 130-159 mg/dLHigh LDL: 160-189 mg/dLVery High LDL: greater than or equal to 190 mg/dL HDL Cholesterol 25(L) >40 mg/dL [facility] Comment:Desirable HDL: great er than 40 mg/dL Note: This HDL assay may give artificially low results in patients with liver disease. 10/08/2023 10:5 2 AM EDT 10/08/2023 10:52 AM EDT Sneha Li MD LAB BLOOD ORDERABLES Final Result [facility] [address] [place] [phone] * Hepatitis C Antibody (02/23/2019 10:52 AM EST) Hepatitis C Antibody Nonreactive Blood 02/23/2019 10:5 2 AM EST Yves Brennan MD POINT OF CARE TEST ENTER/ EDIT ORDERABLES Final Result * HPV E6/E7 RFLX JOSH 16 18/45 (02/19/2019 10:40 AM EST) ADDITIONAL TESTING Not indicated () [facility] Comment: Test Performed by Heaven Taylor, [employer] [place], [address] [place] [address] Ananth Boston M.D., Ph.D., Director of Laboratories , [facility] [id number] HPV 16 RNA Test not performed [facility] HPV 18/45 RNA Test not performed [facility] HPV mRNA E6/E7 Not Detected NOT DETECTED [facility] Comment: This test was performed using the APTIMA(R) HPV Assay ([employer] This assay detects E6/E7 viral messenger RNA (mRNA) from 14 high-risk HPV types (16,18,31,33,35,39,45,51, 52,56,58,59,66,68). For additional information please refer to: http://education.[employer]/faq/DIB377x9 (This link is being provided for informational/ educational purposes only.) The analytical performance characteristics of this assay have been determined by [employer] [place], [place]. The modifications have not been cleared or approved by the FDA. This assay has been validated pursuant to the CLIA regulations and is used for clinical purposes. Please note: ??Effective 10/23/2015, HPV testing will be performed using [employer]'s APTIMA test which targets mRNA. Detecting mRNA instead of DNA, as in older methods, offers significant improvements in specificity. 02/19/2019 10:4 0 AM EST us Sneha Li MD HISTORICAL/NON ORDERABLE L ABS Final Result [facility] [address] * Thinprep PAP and HPV nRNA E6/E7 (02/19/2019 12:00 AM EST) us Historical Provider LAB PATHOLOGY ORDERABLES Final Result IMAGING from Last 3 Months or Most Recently Relevant to Health Maintenance Insurance [facility] ST[facility] ONE CARE < 65 [place] STAND AD[place] Advance Directives Documents on File Type Date Recorded Patient Medical Orderly Expl anation Advance Directives and Living Will 06/25/2023 Health Care Proxy 06/25/23 Care Teams Cutter Operator Relationship Specialty Start Date End Date [place], MD Sneha [address] [place] [phone] PCP - General Family Medicine 10/02/18 Nona Hanna MD [address] [place] [address] Drive [address] [place] [address] Urology 04/02/24 Dr. Lalito Miller MD [address] [address] Gynecologic Oncology 12/31/23 Dr. Samina Diaz [facility] Radiation Oncology 12/04/23 Dr. Pamela Cooper DO, Oncology 11/26/23 [facility] 11/20/23
--- OUTSIDE RECORDS SUMMARY | 2024-06-28 17:08 | XMS_ITS | Encounter Summary ---
Author Organization [employer] Address [address] [place] [address] Care Team Providers Care Drafter Marine Name Role Phone Sneha Li MD Primary Care Provider [phone] Nona Hanna MD Unavailable Reason for Visit * Reason Onset Date Comments FYI 09/09/2023 Encounter Details Date Type Department Care Team ([facility] st Contact Info) Description 09/09/2023 Telephone [facility] [address] [place], [place] [phone] Sneha Li MD [address] [place] [address] FYI Social History Tobacco Use Types Packs/Day [...] 1:02 PM EDT Tc from Kayla with [facility] calling to inform pcp on readings during today's visit. Heart rate came out to 118 regular and blood pressure was 100/60. If any questuions you can contact Kayla at [phone]. documented in this encounter Plan of Treatment Upcoming Encounters Date Type Department Care Team (Late st Contact Info) Description 07/28/2024 3:30 PM EDT Office Visit [facility] [address] [place] [phone] Sneha Li MD [address] [place] [address] 08/23/2024 1:30 PM EDT Nurse Only [facility] [address] [place] [phone] documented as of this encounter Visit Diagnoses Not on filedocumented in this encounter Care Teams Drafter Marine Relationship Specialty Start Date End Date Sneha Li MD [address] [place] [address] PCP - General Family Medicine 10/02/18 Nona Hanna MD [address] [place] [address] Urology 04/02/24 Dr. Lalito Miller MD [address] [address] Gynecologic Oncology 12/31/23 Dr. Samina Diaz [facility] Radiation Oncology 12/04/23 Dr. Pamela Medrano DO, Oncology 11/26/23 [facility] 11/20/23 documented as of this encounter
--- OUTSIDE RECORDS SUMMARY | 2024-06-28 17:08 | XMS_ITS | Encounter Summary ---
Author Organization [employer] Address [address] [facility] 7t [place] [address] Care Team Providers Care Water Treatment Plant Supervisor Name Role Phone Sneha Li MD Primary Care Provider +1- [phone] Nona Hanna MD Unavailable Reason for Visit * Reason Onset Date Comments FYI 05/06/2023 Encounter Details Date Type Department Care Team ([facility] st Contact Info) Description 05/06/2023 Telephone [facility] [address] [place], [place] [phone] Sneha Li MD [address] [place], [place] [phone] FYI Social History Tobacco Use Types Packs/Day [...] 3:02 PM EDT Tc from [facility] at [facility] calling to inform the PCP the patient denied PT services andstated does not need it documented in this encounter Plan of Treatment Upcoming Encounters Date Type Department Care Team (Late st Contact Info) Description 07/28/2024 3:30 PM EDT Office Visit [facility] [address] [place] [phone] Sneha Li MD [address] [place] [address] 08/23/2024 1:30 PM EDT Nurse Only [facility] [address] [place] [phone] documented as of this encounter Visit Diagnoses Not on filedocumented in this encounter Care Teams Water Treatment Plant Supervisor Relationship Specialty Start Date End Date Sneha Li MD [address] [place] [address] PCP - General Family Medicine 10/02/18 Nona Hanna MD [address] [facility] [address] [place] [address] Urology 04/02/24 Dr. Lalito Miller MD [address] [address] Gynecologic Oncology 12/31/23 Dr. Samina Diaz [facility] Radiation Oncology 12/04/23 Dr. Pamela Medrano DO, Oncology 11/26/23 [facility] 11/20/23 documented as of this encounter
--- OUTSIDE RECORDS SUMMARY | 2024-06-28 17:09 | XMS_ITS | Encounter Summary ---
Author Organization [employer] Address [address] [facility] 7t [place] [address] Care Team Providers Care Fur Cleaner Name Role Phone Sneha Li MD Primary Care Provider +1- [phone] Nona Hanna MD Unavailable Reason for Visit * Reason Comments Med Refill Encounter Details Date Type Department Care Team ([facility] st Contact Info) Description 01/28/2023 Refill [facility] MEDICINE [address] [place], [place] [phone] Sneha Li MD [address] [place] [address] Wheeze Social History Tobacco Use Types Packs/Day [...] Description 07/28/2024 3:30 PM EDT Office Visit [facility] MEDICINE [address] [place] [address] Sneha Li MD [address] [place] [address] 08/23/2024 1:30 PM EDT Nurse Only [facility] MEDICINE [address] [place] [address] documented as of this encounter Visit Diagnoses Diagnosis Wheeze Wheezing documented in this encounter Care Teams Fur Cleaner Relationship Specialty Start Date End Date Sneha Li MD [address] [place] [address] PCP - General Family Medicine 10/02/18 Nona Hanna MD [address] [place] [address] Urology 04/02/24 Dr. Lalito Miller MD [address] [address] Gynecologic Oncology 12/31/23 Dr. Samina Diaz [facility] Radiation Oncology 12/04/23 Dr. Pamela Medrano DO, Oncology 11/26/23 [facility] 11/20/23 documented as of this encounter
--- OUTSIDE RECORDS SUMMARY | 2024-06-28 17:09 | XMS_ITS | Encounter Summary ---
Author Organization [facility] Address [address] [place] [address] Care Team Providers Care Wood Heel Finisher Name Role Phone Sneha Li MD Primary Care Provider +1- [phone] Reason for Referral * Imaging (Routine) - Authorized Specialty Diagnoses / Procedures Referred By Jacinda vaughn Referred To Contact Radiology Diagnoses Unspecified lump in the right breast, upper outer quadrant Procedures US Breast Limited bilat US Breast Limited Right Sneha Li MD [address] [place] [address] Phone: tel: fax: [facility] Referral ID Status Reason Start Date Expiration Date V isits Requested Visits Authorized [id number] Authorized 05/13/2024 05/13/2025 1 1 Reason for Visit * Imaging (Routine) - Authorized Specialty Diagnoses / Procedures Referred By Jacinda vaughn Referred To Contact Radiology Diagnoses Unspecified lump in the right breast, upper outer quadrant Procedures US Breast Limited bilat US Breast Limited Right Sneha Li MD [address] [place] [address] Phone: tel: fax: [facility] [place] Referral ID Status Reason Start Date Expiration Date V isits Requested Visits Authorized [id number] Authorized 05/13/2024 05/13/2025 1 1 Encounter Details Date Type Department Care Team (Latest Contact Info) Description 06/24/2024 2:38 PM EDT - 06/24/2024 11:59 PM EDT Hospital Encounter [facility] Ultrasound [address] [place] [address] Unspecified lump in the right [...] care for your loved ones. For example, early childhood special educator or elderly care for an older adult? [...] Info) Description 06/29/2024 1:30 PM EDT Appointment [facility] Radiation Oncology [address] [place] [phone] Samina Diaz MD [address] [place] [address] 07/12/2024 2:15 PM EDT Office Visit [facility] Hematology Oncology [address] [place] [address] Arlen Medrano DO [address] [place] [address] documented as of this encounter Procedures Procedure [...] BILATERAL Mammography location: [facility] [address] [place], [address] -------- FINAL REPORT -------- Dictated By: Alvin White Dictated Date: 06/24/2024 15:43 ET Assigned Physician: Alvin White Reviewed and Electronically Signed By: Alvin White Signed Date: 06/24/2024 15:52 ET Workstation ID: [id number] Transcribed By: Self Edit Transcribed Date: 06/24/2024 [...] concern. Computer-aided detection was employed with the [employer] 3-D. TISSUE DENSITY: The breasts are heterogeneously [...] BILATERAL Mammography location: [facility] [address], [address] -------- FINAL REPORT -------- Dictated By: Alvin White Dictated Date: 06/24/2024 15:43 ET Assigned Physician: Alvin White Reviewed and Electronically Signed By: Alvin White Signed Date: 06/24/2024 15:52 ET Workstation ID: [id number] Transcribed By: Self Edit Transcribed Date: 06/24/2024 15:48 ET us Sneha Li MD IMG US PROCEDURES Final Re sult documented in this encounter Visit Diagnoses Diagnosis Unspecified lump in the right breast, upper outer quadrant documented in this encounter Care Teams Wood Heel Finisher Relationship Specialty Start Date End Date Sneha Li MD [address] [place] [phone] PCP - General 01/23/23 documented as of this encounter
--- OUTSIDE RECORDS SUMMARY | 2024-06-28 17:09 | XMS_ITS | Clinical Summary ---
Author Organization [facility] Address [address] [place] [address] Care Team Providers Care Infection Control Nurse Name Role Phone Sneha Li MD Primary Care Provider [phone] Allergies No known active allergies Medications fluticasone [...] Anal pain 05/28/2024 Rectal mass 02/05/2024 Schizophrenia ([facility] V24, [facility] V28) 024 Primary squamous cell carcin comfort of anus ([facility] V24, [facility] V28) 12/16/2023 Cancer Staging:Clinical:Stage IIIC(cT4, cN1, cM0) - Signed by Samina Diaz MD on 01/01/2024 S/P colostomy ([facility] V24, [facility] V28) 024 Adult failure to thrive 10/24/2023 Overview (04/26/2024): -Will prescribe Ensure 10/24/23 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 -care transferred by [facility] oncology to [facility] -Seen by Dr. Shayne Brock, general surgery 12/16/2023 for consultation regarding management of locally advanced squamous cell cancer . This was requested by radiation oncology however they deferred to Dr. Pelayo at [facility] as he did the colostomy on her -seen 12/24/23 with Pamela Cooper DO, Hematology/Oncology at [facility]: pet scan which shows involvement of [...] is Dr. Samina Diaz -12/25/23 seen by Marketing Assistant Manager Onc Dr Miller :The tumor is quite [...] examination to be formed under anesthesia. -12/29/23 plaster mold maker onc examination under anesthesia with biopsies of cervix, vagina, vulva, and possible cystoscopy and rigid proctoscopy for further evaluation of the extent of malignancy. -coordinate with Dr. Samina Diaz to see if she would be available during the surgery to also assess the tumor and aid with radiation planning. -follow up with heme onc with Talia Blanchard -follow up with plaster mold maker onc Paul Yanez -Pain medication sent by [...] disorder, r ecurrent, severe with psychotic symptoms ([facility] V24, [facility] V28) 09/03/2023 Overview (04/26/2024): See diagnosis of psychosis. Other constipation 06/25/2023 Other hemorrhoids 06/25/2023 Schizophrenia ([facility] V24, [facility] V28) 024 Congenital deafness 03/21/2023 COPD (chronic obstructive pu lmonary disease) ([facility] V24, [facility] V28) 03/21/2023 Nicotine dependence 03/21/2023 Class 1 obesity 01/22/2023 Status post laparoscopic cholecystectomy 023 Dyslipidemia 07/31/2022 Overview (04/26/2024): Lab Results Component Value Date TRIG 130 01/22/2023 CHOL 132 01/22/2023 LDLCHOLCAL 77 01/22/2023 HDL 29 (L) 01/22/2023 -continue lifestyle modifications Low vitamin D level 07/31/2022 Overview (04/26/2024): Lab Results Component Value Date [id number] 10.6 (L) 01/22/2023 -vit D 50,000 weekly [...] deafness 07/31/2022 Overview (04/26/2024): -Has services with [employer]. -Needs ASL interpreters for all speciality appointments. Cigarette nicotine dependence 07/31/2022 Overview (04/26/2024): In precontemplative stages of quitting. Declines medication. -Cigg/day: 20 -Age started: 17 -Total years smokin -Pack year history: 37 Encouraged smoking cessation resources such as pharmacomtherapy, [facility] smoking cessation group, and [facility] pharmacy smoking cessation clinic. She will [...] f/u with Dr. Peterson. -Her caseworkr at [facility] is Pusher #[phone] -Continue with therapist Cara Ramsay. -Prescribed 0.5 [...] - 06/24/2024 11:59 PM EDT Hospital Encounter [facility] Ultrasound [address] [place] [address] Unspecified lump in the right breast, upper outer quadrant Discharge Disposition: Home or Self Care 06/24/2024 2:02 PM EDT - 06/24/2024 11:59 PM EDT [facility] [address] [phone] Unspecified lump in the right breast, upper outer quadrant Discharge Disposition: Home or Self Care 06/18/2024 12:50 PM EDT - 06/18/2024 11:59 PM EDT Hospital Encounter [facility] PET Scan [address] [place] [phone] 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 ([facility] V24, [facility] V28) Discharge Disposition: Home or Self Care 06/14/2024 1:30 PM EDT Office Visit [facility] Hematology Oncology [address] [place] [phone] Arlen Cooper DO Anal cancer ([facility] V24, [facility] V28) (Primary Dx); Port-A-Cath in place; Mild anemia; Breast lump in female 06/01/2024 Telephone [facility] Hematology Oncology [address] [place] [phone] Arlen Cooper DO 05/28/2024 4:37 PM EDT - 06/03/2024 11:51 AM EDT Hospital Encounter [facility] Medical Surgical Unit [address] [place] [phone] Hiram Coe MD Japaridze, Anna, MD Kokosadze, Estate, MD Bell, Alistair A, MD Anal pain (Primary Dx) Discharge Disposition: Intermediate Facility 05/24/2024 Telephone [facility] Infusion Center [address] [place] [phone] Kym Louis, CHELI May not feeling well 05/07/2024 Telephone [facility] Hematology Oncology [address] [place] [phone] Arlen Cooper DO 04/27/2024 3:00 PM EDT - 04/27/2024 11:59 PM EDT Hospital Encounter [facility] Radiation Oncology [address] [place] [phone] Samina Diaz MD 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 ([facility] V24, [facility] V28) (Primary Dx) Discharge Disposition: Home or Self Care 04/13/2024 1:06 PM EST - 04/13/2024 11:59 PM EST Hospital Encounter [facility] Radiation Oncology [address] [place] [phone] Samina Diaz MD Primary squamous cell carcinoma of anus ([facility] V24, [facility] V28) (Primary Dx) Discharge Disposition: Home or Self Care 03/31/2024 1:30 PM EST - 03/31/2024 11:59 PM EST Hospital Encounter [facility] Radiation Oncology [address] [place] [phone] Nickie Duron NP Primary squamous cell carcinoma of anus ([facility] V24, [facility] V28) (Primary Dx) Discharge Disposition: Home or Self Care 03/31/2024 12:58 PM EST - 03/31/2024 11:59 PM EST Hospital Encounter [facility] Radiation Oncology [address] [place] [phone] Discharge Disposition: Home or Self Care from Last 3 Months Surgical History Surgery Date Site/Laterality Comments CHOLECYSTECTOMY COLOSTOMY FOOT SURGERY TUBAL LIGATION APPENDECTOMY Medical History Medical History Date Comments COPD (chronic obstructive pu lmonary disease) ([facility] V24, [facility] V28) 03/21/2023 DX:COPD (chronic o bstructive pulmonary disease) ([facility]) Leukocytosis 03/21/2023 DX:Leukocytosis Cancer of anus ([facility] V24, [facility] V28) Congenital deafness 03/21/2023 Low vitamin D level 07/31/2022 Nicotine dependence 03/21/2023 Schizophrenia ([facility] V24, [facility] V28) 12/25/2023 Port-A-Cath in place Schizo affective schizophren ia ([facility] V24, [facility] V28) Social History Tobacco Use Types Packs/Day [...] for your loved ones. For example, child care giver or elderly care for an older adult? [...] Info) Description 06/29/2024 1:30 PM EDT Appointment [facility] Radiation Oncology [address] [place] [phone] Samina Diaz MD [address] [place] [address] 07/12/2024 2:15 PM EDT Office Visit [facility] Hematology Oncology [address] [place] [phone] Arlen Cooper DO [address] [place] [address] Health Maintenance Due Date Last Done Comments [...] this topic Medical Devices Implanted Type Area Circulation Analyst Device Identifier Shelf Expiration Date Model / Serial / Lot Kit Surgiflo W 2000 Units Ster Lyo - Sn/A - [id number] Implanted:Qty: 1 [facility] 2023 [facility] N/A: Vagina [employer] 12/10/2024 2994 / N/A / [id number] Procedures Procedure Name Priority Date/Time Associated Diagnosis [...] BILATERAL [facility]ammography location: [facility] [address], [address] -------- FINAL REPORT -------- Dictated By: Alvin White Dictated Date: 06/24/2024 15:43 ET Assigned Physician: Alvin White Reviewed and Electronically Signed By: Alvin White Signed Date: 06/24/2024 15:52 ET Workstation ID: [id number] Transcribed By: Self Edit Transcribed Date: 06/24/2024 [...] concern. Computer-aided detection was employed with the [employer] 3-D. TISSUE DENSITY: The breasts are heterogeneously [...] BILATERAL Mammography location: [facility] at [address], [address] -------- FINAL REPORT -------- Dictated By: Alvin White Dictated Date: 06/24/2024 15:43 ET Assigned Physician: Alvin White Reviewed and Electronically Signed By: Alvin White Signed Date: 06/24/2024 15:52 ET Workstation ID: [id number] Transcribed By: Self Edit Transcribed Date: 06/24/2024 [...] BILATERAL Mammography location: [facility] [address], [address] -------- FINAL REPORT -------- Dictated By: Alvin White Dictated Date: 06/24/2024 15:43 ET Assigned Physician: Alvin White Reviewed and Electronically Signed By: Alvin White Signed Date: 06/24/2024 15:52 ET Workstation ID: [id number] Transcribed By: Self Edit Transcribed Date: 06/24/2024 [...] concern. Computer-aided detection was employed with the [employer] 3-D. TISSUE DENSITY: The breasts are heterogeneously [...] BILATERAL Mammography location: [facility] at [address], [address] -------- FINAL REPORT -------- Dictated By: Alvin White Dictated Date: 06/24/2024 15:43 ET Assigned Physician: Alvin White Reviewed and Electronically Signed By: Alvin White Signed Date: 06/24/2024 15:52 ET Workstation ID: [id number] Transcribed By: Self Edit Transcribed Date: 06/24/2024 [...] Signed Date: 06/23/2024 14:39 ET Workstation ID: [id number] Transcribed By: Self Edit Transcribed Date: 06/23/2024 [...] Signed Date: 06/23/2024 14:39 ET Workstation ID: [id number] Transcribed By: Self Edit Transcribed Date: 06/23/2024 14:29 ET us Samina Diaz MD IMG NM PROCEDURES Final Resu lt * (ABNORMAL) CBC auto differential (05/31/2024 6:11 AM EDT) Only the most recent of3 resultswithin the time period is included. WBC 3.7(L) 4.8 - 10.8 K/mcL LAB HEMETOLOGY METHOD 05/31/2024 7:45 AM [facility] RBC 3.30(L) 3.80 - 4.80 M/mcL LAB HEMETOLOGY METHOD 05/31/2024 7:45 AM [facility] Hemoglobin 9.8(L) 11.5 - 16.0 g/dL LAB HEMETOLOGY METHOD 05/31/2024 7:45 AM [facility] Hematocrit 31.0(L) 35.0 - 47.0 % LAB HEMETOLOGY METHOD 05/31/2024 7:45 AM [facility] MCV 94.5 79.0 - 98.0 FL LAB HEMETOLOGY METHOD 05/31/2024 7:45 AM [facility] MCH 29.9 27.0 - 32.0 pcg LAB HEMETOLOGY METHOD 05/31/2024 7:45 AM [facility] MCHC 31.6(L) 32.0 - 37.0 g/dL LAB HEMETOLOGY METHOD 05/31/2024 7:45 AM [facility] RDW 15.9(H) 11.0 - 15.0 % LAB HEMETOLOGY METHOD 05/31/2024 7:45 AM [facility] Platelets 177 130 - 400 K/mcL LAB HEMETOLOGY METHOD 05/31/2024 7:45 AM [facility] MPV 10.0 7.0 - 11.0 FL LAB HEMETOLOGY METHOD 05/31/2024 7:45 AM [facility] NRBC 0.0 <1.0 % LAB HEMETOLOGY METHOD 05/31/2024 7:45 AM [facility] NRBC Absolute 0.00 <0.10 K/mcL LAB HEMETOLOGY METHOD 05/31/2024 7:45 AM [facility] Neutrophils Relative 55.6 % LAB HEMETOLOGY METHOD 05/31/2024 7:45 AM [facility] Lymphocytes Relative 22.5 % LAB HEMETOLOGY METHOD 05/31/2024 7:45 AM [facility] Monocytes Relative 11.5 % LAB HEMETOLOGY METHOD 05/31/2024 7:45 AM [facility] Eosinophils Relative 9.6 % LAB HEMETOLOGY METHOD 05/31/2024 7:45 AM [facility] Basophils Relative 0.5 % LAB HEMETOLOGY METHOD 05/31/2024 7:45 AM [facility] Immature Granulocytes Relative 0.3 % LAB HEMETOLOGY METHOD 05/31/2024 7:45 AM [facility] Neutrophils Absolute 2.08 1.50 - 7.00 K/mcL LAB HEMETOLOGY METHOD 05/31/2024 7:45 AM [facility] Lymphocytes Absolute 0.84(L) 1.00 - 5.00 K/mcL LAB HEMETOLOGY METHOD 05/31/2024 7:45 AM EDT [facility] Monocytes Absolute 0.43 0.20 - 1.00 K/[facility] LAB HEMETOLOGY METHOD 05/31/2024 7:45 AM EDT [facility] Eosinophils Absolute 0.36 0.00 - 0.50 K/[facility] LAB HEMETOLOGY METHOD 05/31/2024 7:45 AM EDT [facility] Basophils Absolute 0.02 0.00 - 0.20 K/[facility] LAB HEMETOLOGY METHOD 05/31/2024 7:45 AM EDT [facility] Immature Granulocytes Absolute 0.01 0.00 - 0.03 K/[facility] LAB HEMETOLOGY METHOD 05/31/2024 7:45 AM EDT [facility] Blood Venous blood specimen / Unknown Venipuncture / Unknown 05/31/2024 6:11 AM EDT 05/31/2024 7:35 AM EDT us Estate Kierra AVILEZ LAB BLOOD ORDERABLES Final R esult [facility] [address] [place] [address], * (ABNORMAL) Basic metabolic panel (05/31/2024 6:11 AM EDT) Only the most recent of2 resultswithin the time period is included. Sodium 143 133 - 145 mmol/L LAB CHEMISTRY METHOD 05/31/2024 8:12 AM EDT [facility] Potassium 3.6 3.5 - 5.5 mmol/L LAB CHEMISTRY METHOD 05/31/2024 8:12 AM EDT [facility] Chloride 110 96 - 110 mmol/L LAB CHEMISTRY METHOD 05/31/2024 8:12 AM EDT [facility] CO2 28 21 - 32 mmol/L LAB CHEMISTRY METHOD 05/31/2024 8:12 AM EDT [facility] Anion Gap 5 3 - 11 LAB CHEMISTRY METHOD 05/31/2024 8:12 AM T [facility] Glucose 89 70 - 100 mg/dL LAB CHEMISTRY METHOD 05/31/2024 8:12 AM [facility] BUN 4(L) 5 - 25 mg/dL LAB CHEMISTRY METHOD 05/31/2024 8:12 AM [facility] Creatinine 0.55 0.50 - 1.10 mg/dL LAB CHEMISTRY METHOD 05/31/2024 8:12 AM [facility] eGFR 111 >=60 mL/min/1. 73m2 LAB CHEMISTRY METHOD 05/31/2024 8:12 AM [facility] Comment:Calculation based on the??Chronic Kidney Disease Epidemiology Collaboration (CKD-EPI) equation refit??without adjustment for race. BUN/Creatinine Ratio 7.3 LAB CHEMISTRY METHOD 05/31/2024 8:12 AM [facility] Calcium 9.0 8.5 - 10.5 mg/dL LAB CHEMISTRY METHOD 05/31/2024 8:12 AM [facility] Blood Venous blood specimen / Unknown Venipuncture / Unknown 05/31/2024 6:11 AM EDT 05/31/2024 7:35 AM EDT us Xavi Lozada MD LAB BLOOD ORDERABLES Final R esult [facility] [address] [place] [address], * XR Chest 2 Views (05/29/2024 12:45 AM EDT) Anatomical Region Laterality Modality Body Radiographic Cesia ging 05/29/2024 9:43 AM EDT Impressions 05/29/2024 9:46 AM EDT Impression: 1. Possible small infiltrate in the lingula or right middle lobe (seen in the lateral projection only). Short-term follow-up is recommended. 2. Port-A-Cath well positioned. Telerad SONU ([id number]) -------- FINAL REPORT -------- Dictated By: Mae Oreilly Dictated Date: 05/29/2024 09:43 ET Assigned Physician: Mae Oreilly Reviewed and Electronically Signed By: Mae Oreilly Signed Date: 05/29/2024 09:46 ET Workstation ID: [id number] Transcribed By: Self Edit Transcribed Date: 05/29/2024 [...] recommended. 2. Port-A-Cath well positioned. Telerad SONU ([id number]) -------- FINAL REPORT -------- Dictated By: Mae Oreilly Dictated Date: 05/29/2024 09:43 ET Assigned Physician: Mae Oreilly Reviewed and Electronically Signed By: Mae Oreilly Signed Date: 05/29/2024 09:46 ET Workstation ID: [id number] Transcribed By: Self Edit Transcribed Date: 05/29/2024 09:43 ET Urv[facility] IMG XR PROCEDURES Final Resul t * (ABNORMAL) Urinalysis with reflex microscopic and culture (05/28/2024 7:31 PM EDT) Specific Ovid Urine 1.008 1.003 - 1.030 LAB URINALYSIS - [facility]OMATED [facility], Urine 7.5 5.0 - 8.0 pH LAB URINALYSIS - AUTOMATED METHOD 05/28[facility]2024 8[facility] Leukocytes, Urine Moderate(A) Negative LAB URINALYSIS - AUTOMATED METHOD 05/28/2024 8:35 PM [facility] Nitrite, Urine Positive(A) Negative LAB URINALYSIS - AUTOMATED METHOD 05/28/2024 8:35 PM [facility] Protein, Urine Negative <=Trace mg/dL LAB URINALYSIS - AUTOMATED METHOD 05/28/2024 8:35 PM [facility] Glucose, Urine Negative Negative mg/dL LAB URINALYSIS - AUTOMATED METHOD 05/28/2024 8:35 PM [facility] Ketones, Urine Negative Negative mg/dL LAB URINALYSIS - AUTOMATED METHOD 05/28/2024 8:35 PM [facility] Urobilinogen , Urine 1.0 0.2 - 1.0 mg/dL LAB URINALYSIS - AUTOMATED METHOD 05/28/2024 8:35 PM [facility] Bilirubin, Urine Negative Negative LAB URINALYSIS - AUTOMATED METHOD 05/28/2024 8:35 PM EDT [facility] Blood, Urine Negative Negative LAB URINALYSIS - AUTOMATED METHOD 05/28/2024 8:35 PM EDT [facility] RBC, Urine 0.0 0 - 4 /HPF LAB URINALYSIS - AUTOMATED METHOD 05/28/2024 8:35 PM EDT [facility] WBC, Urine 22.2(H) 0 - 4 /HPF LAB URINALYSIS - AUTOMATED METHOD 05/28/2024 8:35 PM EDT [facility] Squamous Epithelial, Urine 5 0 - 60 /LPF LAB URINALYSIS - AUTOMATED METHOD 05/28/2024 8:35 PM EDT [facility] Crystals, Urine Moderate Amorphous Phosphate crystals. /LPF LAB URINALYSIS - AUTOMATED METHOD 05/28/2024 8:35 PM EDT [facility] Bacteria, Urine Few(A) Negative /HPF LAB URINALYSIS - AUTOMATED METHOD 05/28/2024 8:35 PM EDT [facility] Hyaline Casts, Urine 0.0 0 - 3 /LPF LAB URINALYSIS - AUTOMATED METHOD 05/28/2024 8:35 PM EDT [facility] Urine Urine specimen obtained by clean catch procedure / Unknown Non-blood Collection / Unknown 05/28/2024 7:31 PM EDT 05/28/2024 8:14 PM EDT us Norma ASCENCIO LAB URINE ORDERABLES Fin al Result [facility] [address] [place] [address], * Carranza urine culture tube (05/28/2024 7:31 PM EDT) Extra Tube Hold for add-ons. 05/28/2024 10:05 PM EDT [facility] Comment:Auto resulted. Urine Urine specimen obtained by clean catch procedure / Unknown Non-blood Collection / Unknown 05/28/2024 7:31 PM EDT 05/28/2024 8:15 PM EDT Norma ASCENCIO LAB URINE ORDERABLES Fin al Result Performing Organization Address [facility]/ZIP Co de Phone Number [facility] [address] [place] [address], [place] [phone] * Phosphorus (05/28/2024 6:13 PM EDT) Phosphorus 3.2 2.5 - 4.5 mg/dL LAB CHEMISTRY METHOD 05/28/2024 8:06 PM EDT [facility] Blood Venous blood specimen / Unknown Venipuncture / Unknown 05/28/2024 6:13 PM EDT 05/28/2024 7:20 PM EDT [facility] [place] LAB BLOOD ORDERABLES Fin al Result Performing Organization Address [facility] Co de Phone Number [facility] [address] [place] [address], [place] [phone] * Magnesium (05/28/2024 6:13 PM EDT) Magnesium 1.9 1.9 - 2.6 mg/dL LAB CHEMISTRY METHOD 05/28/2024 8:06 PM EDT [facility] Blood Venous blood specimen / Unknown Venipuncture / Unknown 05/28/2024 6:13 PM EDT 05/28/2024 7:20 PM EDT [facility] LAB BLOOD ORDERABLES Fin al Result Performing Organization Address City/[facility]/ZIP Co de Phone Number [facility] [address] [place] [address], [place] [phone] * (ABNORMAL) Comprehensive metabolic panel (05/28/2024 6:13 PM EDT) Sodium 135 133 - 145 mmol/L LAB CHEMISTRY METHOD 05/28/2024 8:06 PM [facility] Potassium 3.7 3.5 - 5.5 mmol/L LAB CHEMISTRY METHOD 05/28/2024 8:06 PM [facility] Chloride 103 96 - 110 mmol/L LAB CHEMISTRY METHOD 05/28/2024 8:06 PM [facility] CO2 29 21 - 32 mmol/L LAB CHEMISTRY METHOD 05/28/2024 8:06 PM [facility] Anion Gap 3 3 - 11 LAB CHEMISTRY METHOD 05/28/2024 8:06 PM [facility] Glucose 95 70 - 100 mg/dL LAB CHEMISTRY METHOD 05/28/2024 8:06 PM [facility] BUN 8 5 - 25 mg/dL LAB CHEMISTRY METHOD 05/28/2024 8:06 PM [facility] Creatinine 0.62 0.50 - 1.10 mg/dL LAB CHEMISTRY METHOD 05/28/2024 8:06 PM [facility] eGFR 108 >=60 mL/min/1. 73m2 LAB CHEMISTRY METHOD 05/28/2024 8:06 PM [facility] Comment:Calculation based on the??Chronic Kidney Disease Epidemiology Collaboration (CKD-EPI) equation refit??without adjustment for race. BUN/Creatinine Ratio 12.9 LAB CHEMISTRY METHOD 05/28/2024 8:06 PM [facility] Calcium 8.8 8.5 - 10.5 mg/dL LAB CHEMISTRY METHOD 05/28/2024 8:06 PM [facility] AST (SGOT) 8(L) 10 - 42 unit/L LAB CHEMISTRY METHOD 05/28/2024 8:06 PM [facility] ALT (SGPT) 9(L) 10 - 60 unit/L LAB CHEMISTRY METHOD 05/28/2024 8:06 PM EDT [facility] Alkaline Phosphatase 111 42 - 121 unit/L LAB CHEMISTRY METHOD 05/28/2024 8:06 PM EDT [facility] Total Protein 6.2 6.0 - 8.0 g/dL LAB CHEMISTRY METHOD 05/28/2024 8:06 PM EDT [facility] Albumin 2.7(L) 3.2 - 5.0 g/dL LAB CHEMISTRY METHOD 05/28/2024 8:06 PM EDT [facility] Total Bilirubin 0.4 0.0 - 1.4 mg/dL LAB CHEMISTRY METHOD 05/28/2024 8:06 PM EDT [facility] Blood Venous blood specimen / Unknown Venipuncture / Unknown 05/28/2024 6:13 PM EDT 05/28/2024 7:20 PM EDT [facility] BLOOD ORDERABLES Fin al Result [facility] [address] [place] [address], * Rad Onc Msq Treatment Summary (03/31/2024 [...] RADIATION ONCOLOGY from Last [address] [place] [address] [address] MEDICARE Member Subscriber Plan / Payer (Ef fective 2023-Present) Name:Tono May Relation to Subscriber:Self Name:Tono May Payer ID:[id number] Group ID:[id number] Type:Not on file Address: [place] [address] [address] [place] [id number] Advance Directives Documents on File Type Date Recorded Patient Research Interviewer Expl anation Advance Directives and Livin g [...] Agents on File Name Relationship Healthcare Agent [facility] Care Agent Care Teams Infection Control Nurse Relationship Specialty Start Date End Date Guillermo, MD Sneha [address] [place] [phone] PCP - General 01/23/23
--- OUTSIDE RECORDS SUMMARY | 2024-06-28 17:09 | XMS_ITS | Encounter Summary ---
Author Organization [employer] Address [address] [facility] 7t [place] [address] Care Team Providers Care Ski Base Trimmer Name Role Phone Sneha Li MD Primary Care Provider +1- [phone] Nona Hanna MD Unavailable Reason for Visit * Reason Onset Date Comments Nurse Triage 01/01/2023 Encounter Details Date Type Department Care Team ([facility] st Contact Info) Description 01/01/2023 Telephone [facility] [address] [place], [place] [phone] Sneha Li MD [address] [place] [address] Nurse Triage Social History Tobacco Use Types [...] 01/01/2023 2:55 PM EST Triage call with deaf interpreter ID [id number]. Pt advocate Shayne Golden is [...] requested. Earliest apt is 01/22/23 at 1100am. deaf interpreter is needed at time of visit. Protocol [...] The caller accepted this outcome Please call [phone] documented in this encounter Plan of Treatment Upcoming Encounters Date Type Department Care Team (Late st Contact Info) Description 07/28/2024 3:30 PM EDT Office Visit [address] [address] Sneha Li MD [address] [place] [address] 08/23/2024 1:30 PM EDT Nurse Only [address] [address] documented as of this encounter Visit Diagnoses Not on filedocumented in this encounter Care Teams Ski Base Trimmer Relationship Specialty Start Date End Date Sneha Li MD [address] [place] [address] PCP - General Family Medicine 10/02/18 Nona Hanna MD [address] [place] [address] Urology 04/02/24 Dr. Lalito Miller MD [address] [address] Gynecologic Oncology 12/31/23 Dr. Samina Diaz [facility] Radiation Oncology 12/04/23 Dr. Pamela Medrano DO, Oncology 11/26/23 [facility] 11/20/23 documented as of this encounter
--- OUTSIDE RECORDS SUMMARY | 2024-06-28 17:09 | XMS_ITS | Encounter Summary ---
Author Organization [employer] Address [address] [place] [address] 7t [place] [address] Care Team Providers Care Infrastructure Project Manager Name Role Phone Sneha Li MD Primary Care Provider +1- [phone] Nona Hanna MD Unavailable Encounter Details Date Type Department Care Team (Late st Contact Info) Description 03/19/2022 Abstract [facility] [address] [place] [phone] Sneha Li MD [address] [place] [address] [phone] Social History Tobacco Use Types Packs/Day Years [...] Description 07/28/2024 3:30 PM EDT Office Visit [facility] [address] [place] [phone] Sneha Li MD [address] [place] [address] [phone] 08/23/2024 1:30 PM EDT Nurse Only [address] [phone] documented as of this encounter Procedures Procedure [...] on filedocumented in this encounter Care Teams Infrastructure Project Manager Relationship Specialty Start Date End Date Sneha Li MD [address] [place] [address] PCP - General Family Medicine 10/02/18 Nona Hanna MD [address] [place] [address] Drive [address] [place] [address] Urology 04/02/24 Dr. Lalito Miller MD [address] [address] Gynecologic Oncology 12/31/23 Dr. Samina Diaz [facility] Radiation Oncology 12/04/23 Dr. Pamela Medrano DO, Oncology 11/26/23 [facility] 11/20/23 documented as of this encounter
--- OUTSIDE RECORDS SUMMARY | 2024-06-28 17:09 | XMS_ITS | Encounter Summary ---
Author Organization [facility] Address [address] [place] [address] Care Team Providers Care Senior Health Educator Name Role Phone Sneha Li MD Primary Care Provider +1- [phone] Reason for Visit * Imaging (Routine) - Authorized Specialty Diagnoses / Procedures Referred By Contac roderick Referred To Contact Radiology Diagnoses Unspecified lump in the right breast, upper outer quadrant Procedures [facility] Mammo Digital Diagnostic w Bernadine bilat MG Mammo Digital Diagnostic w Bernadine Right Sneha Li MD [address] [place] [address] Phone: tel: fax: [facility] [place] Referral ID Status Reason Start Date Expiration Date V isits Requested Visits Authorized [id number] Authorized 05/13/2024 05/13/2025 1 1 Encounter Details Date Type Department Care Team (Latest Contact Info) Description 06/24/2024 2:02 PM EDT - 06/24/2024 11:59 PM EDT Hospital En[facility] [address] [address] Unspecified lump in the right [...] care for your loved ones. For example, children's program coordinator or elderly care for an older adult? [...] Assessment Author Yes 02/05/2024 3:20 PM Aubrey Milaln RN * Are you blind or do [...] Info) Description 06/29/2024 1:30 PM EDT Appointment [facility] Radiation Oncology [address] [place] [phone] Samina Diaz MD [address] [place] [address] 07/12/2024 2:15 PM EDT Office Visit [facility] Hematology Oncology [address] [place] [phone] Arlen Medrano, DO [address] [place] [address] documented as of this encounter Procedures Procedure [...] BILATERAL Mammography location: [facility] [address] [place], [address] -------- FINAL REPORT -------- Dictated By: Alvin White Dictated Date: 06/24/2024 15:43 ET Assigned Physician: Alvin White Reviewed and Electronically Signed By: Alvin White Signed Date: 06/24/2024 15:52 ET Workstation ID: [id number] Transcribed By: Self Edit Transcribed Date: 06/24/2024 [...] concern. Computer-aided detection was employed with the [employer] 3-D. TISSUE DENSITY: The breasts are heterogeneously [...] BILATERAL Mammography location: [facility] [address], [address] -------- FINAL REPORT -------- Dictated By: Alvin White Dictated Date: 06/24/2024 15:43 ET Assigned Physician: Alvin White Reviewed and Electronically Signed By: Alvin White Signed Date: 06/24/2024 15:52 ET Workstation ID: [id number] Transcribed By: Self Edit Transcribed Date: 06/24/2024 15:48 ET Sneha Li MD IMG BI PROCEDURES Final Re sult documented in this encounter Visit Diagnoses Diagnosis Unspecified lump in the right breast, upper outer quadrant documented in this encounter Care Teams Senior Health Educator Relationship Specialty Start Date End Date Sneha Li MD [address] [place] [phone] PCP - General 01/23/23 documented as of this encounter
--- OUTSIDE RECORDS SUMMARY | 2024-06-28 17:09 | XMS_ITS | Encounter Summary ---
Author Organization [employer] Address [address] [facility] 7t [place] [address] Care Team Providers Care Casework Specialist Name Role Phone Sneha Li MD Primary Care Provider +1- [phone] Nona Hanna MD Unavailable Encounter Details Date Type Department Care Team (Late st Contact Info) Description 01/22/2023 Orders Only [facility] [address] [place], [place] [phone] Sneha Li MD [address] [place], [place] [phone] Low vitamin D level Social History Tobacco [...] Description 07/28/2024 3:30 PM EDT Office Visit [address] [address] Sneha Li MD [address] [place] [address] 08/23/2024 1:30 PM EDT Nurse Only [facility] [address] [place] [address] documented as of this encounter Visit Diagnoses Diagnosis Low vitamin D level documented in this encounter Care Teams Casework Specialist Relationship Specialty Start Date End Date Sneha Li MD [address] [place] [address] PCP - General Family Medicine 10/02/18 Nona Hanna MD [address] [place] [address] Urology 04/02/24 Dr. Lalito Miller MD [address] [address] Gynecologic Oncology 12/31/23 Dr. Samina Diaz [facility] Radiation Oncology 12/04/23 Dr. Pamela Medrano DO, Oncology 11/26/23 [facility] 11/20/23 documented as of this encounter
--- OUTSIDE RECORDS SUMMARY | 2024-06-28 17:09 | XMS_ITS ---
Author Organization [facility] Address [address] [place] [address] Care Team Providers Care Safety Attendant Name Role Phone Guillermo, Sneha AVILEZ Primary Care Provider +1- [phone] Active Problems Problem Noted Date Diagnosed Date Anal pain 05/28/2024 Rectal mass 02/05/2024 Schizophrenia (CMS/HCC V24, CMS/HCC V28) 024 Primary squamous cell carcin comfort of anus (CMS/HCC V24, CMS/HCC V28) 12/16/2023 Cancer Staging:Clinical:Stage IIIC(cT4, cN1, cM0) - Signed by Samina Diaz MD on 01/01/2024 S/P colostomy ([facility]/HCC V24, [facility] V28) 024 Adult failure to thrive 10/24/2023 Overview (04/26/2024): -Will prescribe Ensure 10/24/23 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 -care transferred by [facility] oncology to [facility] -Seen by Dr. Shayne Brock, general surgery 12/16/2023 for consultation regarding management of locally advanced squamous cell cancer . This was requested by radiation oncology however they deferred to Dr. Pelayo at [facility] as he did the colostomy on her -seen 12/24/23 with Pamela Medrano DO, Hematology/Oncology at [facility]: pet scan which shows involvement of [...] is Dr. Samina Diaz -12/25/[address] Onc [address] Miller :The tumor is [...] examination to be formed under anesthesia. -12/29/23 gynecology teacher onc examination under anesthesia with biopsies of cervix, vagina, vulva, and possible cystoscopy and rigid proctoscopy for further evaluation of the extent of malignancy. -coordinate with Dr. Samina Diaz to see if she would be available during the surgery to also assess the tumor and aid with radiation planning. -follow up with heme onc with Talia Blanchard -follow up with gynecology teacher onc Paul Yanez -Pain medication sent by [...] Other constipation 06/25/2023 Other hemorrhoids 06/25/2023 Schizophrenia ([facility] V24, [facility] V28) 024 Congenital deafness 03/21/2023 COPD (chronic obstructive pu lmonary disease) ([facility] V24, [facility] V28) 03/21/2023 Nicotine dependence 03/21/2023 Class 1 obesity 01/22/2023 Status post laparoscopic cholecystectomy 023 Dyslipidemia 07/31/2022 Overview (04/26/2024): Lab Results Component Value Date TRIG 130 01/22/2023 CHOL 132 01/22/2023 LDLCHOLCAL 77 01/22/2023 HDL 29 (L) 01/22/2023 -continue lifestyle modifications Low vitamin D level 07/31/2022 Overview (04/26/2024): Lab Results Component Value Date [id number] 10.6 (L) 01/22/2023 -vit D 50,000 weekly [...] deafness 07/31/2022 Overview (04/26/2024): -Has services with [employer]. -Needs ASL interpreters for all speciality appointments. Cigarette nicotine dependence 07/31/2022 Overview (04/26/2024): In precontemplative stages of quitting. Declines medication. -Cigg/day: 20 -Age started: 17 -Total years smokin -Pack year history: 37 Encouraged smoking cessation resources such as pharmacomtherapy, [facility] smoking cessation group, and [facility] pharmacy smoking cessation clinic. She will try [...] f/u with Dr. Peterson. -Her caseworkr at [facility] is Matt #[phone] -Continue with therapist Cara Ramsay. -Prescribed 0.5 mg Lorazepam, BID on recent admission to [facility] on 08/27/23 and Risperidone was increased [...]
--- OUTSIDE RECORDS SUMMARY | 2024-06-28 17:09 | XMS_ITS | Encounter Summary ---
Author Organization [employer] Address [address] [facility] [address] 7t [place] [address] Care Team Providers Care Cinder Block Mason Name Role Phone Sneha Li MD Primary Care Provider +1- [phone] Nona Hanna MD Unavailable Encounter Details Date Type Department Care Team (Late st Contact Info) Description 12/16/2023 Orders Only [facility] [address] [place], [place] [phone] Sneha Li MD [address] [place], [place] [phone] Metastatic squamous cell carcinoma involving anus with [...] Description 07/28/2024 3:30 PM EDT Office Visit [facility] [address] [place] [address] Sneha Li MD [address] [place] [address] 08/23/2024 1:30 PM EDT Nurse Only [facility] [address] [place] [address] documented as of this encounter Visit Diagnoses Diagnosis 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 Lalito Miller MD [address] [address] Gynecologic Oncology 12/31/23 Dr. Samina Diaz [facility] Radiation Oncology 12/04/23 Dr. Pamela Medrano DO, Oncology 11/26/23 [facility] 11/20/23 documented as of this encounter
--- OUTSIDE RECORDS SUMMARY | 2024-06-28 17:09 | XMS_ITS | Encounter Summary ---
Author Organization [employer] Address [address] [facility] 7t [place] [address] Care Team Providers Care Scruff Worker Name Role Phone Sneha Li MD Primary Care Provider +1- [phone] Nona Hanna MD Unavailable Encounter Details Date Type Department Care Team (Late st Contact Info) Description 01/30/2024 Orders Only [facility] [address] [place], [place] [phone] Sneha Li MD [address] [place], [place] [phone] Metastatic squamous cell carcinoma involving anus with [...] Description 07/28/2024 3:30 PM EDT Office Visit [facility] [address] [place] [address] Sneha Li MD [address] [place] [address] 08/23/2024 1:30 PM EDT Nurse Only [address] [address] documented as of this encounter Visit Diagnoses Diagnosis 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 Lalito Miller MD [address] [address] Gynecologic Oncology 12/31/23 Dr. Samina Diaz [facility] Radiation Oncology 12/04/23 Dr. Pamela Medrano DO, Oncology 11/26/23 [facility] 11/20/23 documented as of this encounter
--- OUTSIDE RECORDS SUMMARY | 2024-06-28 17:09 | XMS_ITS | Encounter Summary ---
Author Organization [employer] Address [address] [facility] [address] 7t [place] [address] Care Team Providers Care Regulatory Law Specialist Name Role Phone Sneha Li MD Primary Care Provider +1- [phone] Nona Hanna MD Unavailable Encounter Details Date Type Department Care Team (Late st Contact Info) Description 10/24/2023 Orders Only [facility] [address] [place], [place] [phone] Sneha Li MD [address] [place], [place] [phone] Social History Tobacco Use Types Packs/Day Years [...] [facility] [address] [place] [address] Sneha Li MD [address] [place] [address] 08/23/2024 1:30 PM EDT Nurse Only [facility]ICINE [address] [place] [address] documented as of this encounter Visit Diagnoses Not on filedocumented in this encounter Additional Health Concerns Assessment Noted Time PHQ-9 Depression Total Score: 4 10/08/19 24 9:22 AM EDT documented as of this encounter Care Teams Regulatory Law Specialist Relationship Specialty Start Date End Date Sneha Li MD [address] [place] [address] PCP - General Family Medicine 10/02/18 Nona Hanna MD [address] [place] [address] Urology 04/02/24 Dr. Lalito Miller MD [address] [address] Gynecologic Oncology 12/31/[address] [facility] Radiation Oncology 12/04/23 Dr. Pamela Medrano DO, Oncology 11/26/23 [facility] 11/20/23 documented as of this encounter
== END 2024-06-28 14:03 | disposition home or self-care (01) ==
LOC: HO.LNP 14:02
PROVIDERS: PCP Family Medicine; Visit Provider Urology
DX: Z46.6 Encounter for fitting and adjustment of urinary device (principal); R30.0 Dysuria; R39.9 Unspecified symptoms and signs involving the genitourinary system
CPT/HCPCS: 51702; 81003; 87086; 87088; 87186

== ENCOUNTER 2024-08-02 09:54 | Outpatient (AMB) | payer OTHER, SELFPAY ==
--- NOTE | 2024-08-02 10:25 | MHC.OFFVIS ---
Intake Visit Reasons: F/U Intake Note: Patient presents today for follow up Urology Medication: Vitamin B, Tamsulosin Antibiotic Allergy:NONE Blood Thinner:NONE Bed Laborer Required: No Accompanied by: Unknown Allergies No Known Allergies (No Known Allergies*) Allergy (Verified 08/02/24 10:26) Medication List - Last Reconciled 08/02/24 by Nona Mcintosh MD acetaminophen 500 - 1,000 mg PO Q8-12H PRN ascorbic acid (vitamin C) 250 mg PO BID cefuroxime axetil 500 mg PO BID 5 days clotrimazole-betamethasone 1-0.05 % 1 appl topical BID 2 weeks lorazepam 0.5 mg PO BID melatonin 6 mg (2 x 3 mg) PO BEDTIME PRN nicotine 1 patch transdermal DAILY oxycodone 10 mg PO Q4H PRN oxycodone ER (OxyContin) 20 mg (2 x 10 mg) PO BID polyethylene glycol 3350 17 grams PO DAILY PRN risperidone 4 mg PO BEDTIME risperidone 1 mg PO BID solifenacin (Vesicare) 10 mg PO DAILY tamsulosin 0.4 mg PO BEDTIME HPI Comments Details: 08/02/24-- History of Present Illness - The patient is a 53-year-old female presenting with urinary retention. - She has a history of urinary retention and currently uses a Rocha catheter. - The catheter was last changed two months ago, and she reports ongoing issues with it. - She is prescribed Vesicare for bladder spasms. - The patient has a history of schizophrenia and metastatic anal cancer, for which a colostomy was placed. - She is deaf and communicates by reading lips. Plan - Conduct a voiding trial to evaluate the patient's ability to urinate independently. - If the voiding trial is unsuccessful, replace the Rocha catheter. - Discuss the option of suprapubic tube management with the patient. 05/07/24--Here for office cystoscopy-Yanna is a 53-year-old female who is deaf; history of schizophrenia, anxiety/depression, 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 Rocha is in place patient has failed voiding trials. Cystoscopy findings: bladder wall thickening,erythematous changes c/w chronic rocha and cystitis. Plan continue with rocha to manage urinary retention, vesicare daily, ceftin bid for dys. 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 Rocha is in place patient has failed voiding trials. On examination there is excoriation of her perineum. Nursing staff has changed Rocha catheter 16 [address] placed. We will empirically place her on Bactrim. We will start VESIcare for bladder spasms. Lotrisone ointment to apply to perineum. Follow-up in 2 weeks for nursing staff to review the perineum. 11/28/23--52-year-old female with history of schizophrenia, anxiety/depression, metastatic cancer likely anal in origin and mild persistent asthma who is deaf and requires ASL interpretation here for voiding trial. Patient failed voiding trial 14 fr catheter placed. Start tamsulosin, fu in 4 weeks for repeat voiding trial with Urology nurse [facility] Medical History Squamous cell carcinoma of anal canal Schizophrenia Asthma History of gallbladder disease Chronic pain of left knee Low vitamin D level Dyslipidemia Mental health disorder Hx of Lyme disease Congenital deafness Surgical History Hx of surgical procedure (~11/13/23) Hx of tubal ligation Hx of appendectomy History of cholecystectomy Hx of foot surgery Family History Mother Hypertension Social History Household Members: None Housing: Apartment Are you a primary hospice care consultant to a significant other at home: No Do you presently have visiting nurse or other home services: Yes ([facility]) Alcohol intake: former Patient Tobacco Use Status: Former Tobacco user Tobacco use type: Cigarette Cigarette Packs Per Day: 1 Years Smoked: 30 service: No Current occupational status: disabled Female Reproductive History Menstrual Age of Menarche: 15 Review of Systems Const All systems reviewed & are unremarkable except as noted in HPI and below Reports no additional complaints Eyes Reports no additional complaints ENT Reports no additional complaints Card Reports no additional complaints Resp Reports no additional complaints GI Reports no additional complaints Reports as per HPI Musc Reports no additional complaints Skin/Breast Reports system reviewed and no additional complaints, except as documented Neuro Reports no additional complaints Psych Reports no additional complaints Endo Reports no additional complaints Augusto/Lymph Reports no additional complaints Aller/Immun Reports no additional complaints Office Procedures Bladder/Catheter Procedure Details: Patient presents to office for voiding trial. 60ml instilled into bladder via 14 Fr rocha catheter. Patient only able to tolerate 60mls. 14 Fr rocha catheter removed. Patient tolerated removal. Patient able to immediately void 100ml out. Bladder scan after was 28ml. Educated patient to call us if she has any voiding issues today or the next couple days and to drink extra fluids. Patient verbalized understanding. 88991-Hqcaqsctxc of Bladder Procedure code (CPT) selection complete Post Void Residual Post Residual Void Post Void Residual (PVR): 28 [id number]-[id number] Void Residual by ultrasound Assessment & Plan Assessment & Plan (1) Squamous cell carcinoma of anal canal: Code(s): C21.1 - Malignant neoplasm of anal canal Category: Medical (2) Urinary retention: Code(s): R33.9 - Retention of urine, unspecified Category: Medical (3) Cystitis: Code(s): N30.90 - Cystitis, unspecified without hematuria Category: Medical (4) Detrusor overactivity: Code(s): N32.81 - Overactive bladder Category: Medical (5) UTI (urinary tract infection): Code(s): N39.0 - Urinary tract infection, site not specified Category: Medical Plan VESIcare 10 mg daily, Cont rocha with q4 week changes and prn Voiding trial today, Rocha removed Bactrim DS 1 tab twice a day for 5 days Orders: Orders AMB Bladder/Catheter Procedure 08/02/24 R33.9 - Retention of urine, unspecified AMB Post Void Residual by ultrasound 08/02/24 R33.9 - Retention of urine, unspecified Medications: New sulfamethoxazole-trimethoprim 800-160 mg (Bactrim DS) 1 tab PO BID 10 tabs 0RF Discontinued cefuroxime axetil Discontinued Reason: Patient Completed Course 500 mg PO BID 5 days 10 tabs 0RF Scribe Plan - Not visible on output: Patient was informed and verbally consented to the use of an ambient scribe for clinic note documentation during this visit. Coding Level of Care Code Est Pt Level 4 (91699) Complex EM visit Add On G2211 Diagnoses Squamous cell carcinoma of anal canal C21.1 Urinary retention R33.9 Cystitis N30.90 Detrusor overactivity N32.81 UTI (urinary tract infection) N39.0 CPT Codes Bladder/Catheter Procedure - CPT: 36885-Aonnstuydc of Bladder ([id number]) Post Residual Void - PVR CPT Code: 77132-Gjvt Void Residual by ultrasound ([id number])
--- OUTSIDE RECORDS SUMMARY | 2024-08-02 10:49 | XMS_ITS | Encounter Summary ---
Author Organization [employer] Address [address] [place] [address] Care Team Providers Care Lanolin Plant Operator Name Role Phone Sneha Li MD Primary Care Provider [phone] Nona Hanna MD Unavailable Reason for Visit * Reason Onset Date Comments Durable Medical Equipment 05/27/2023 Encounter Details Date Type Department Care Team (Late st Contact Info) Description 05/27/2023 Telephone [facility] [address] [place], [place] [id number] Sneha Li MD [address] [place] [address] Durable Medical Equipment Social History Tobacco Use [...] 12:28 PM EDT Tc from Norma with [facility] requesting DME: Shower chair If any questions you can contact Norma at [phone]. Norma would like that faxed to [facility]. L&C documented in this encounter Plan of Treatment Upcoming Encounters Date Type Department Care Team (Late st Contact Info) Description 08/23/2024 1:30 PM EDT Nurse Only [facility] [address] [place] [address] documented as of this encounter Visit Diagnoses Not on filedocumented in this encounter Care Teams Lanolin Plant Operator Relationship Specialty Start Date End Date Sneha Li MD [address] [place] [address] PCP - General Family Medicine 10/02/18 Nona Hanna MD [address] [place] [address] Drive [address] [place] [address] Urology 04/02/24 Dr. Lalito Miller MD [address] [address] Gynecologic Oncology 12/31/23 Dr. Samina Diaz [facility] Radiation Oncology 12/04/23 Dr. Pamela Medrano DO, Oncology 11/26/23 [facility] 11/20/23 documented as of this encounter
== END 2024-08-02 11:44 | disposition home or self-care (01) ==
PROVIDERS: PCP Family Medicine; Visit Provider Urology
DX: C21.1 Malignant neoplasm of anal canal (principal); N30.90 Cystitis, unspecified without hematuria; N32.81 Overactive bladder; R33.9 Retention of urine, unspecified
CPT/HCPCS: 51700; 99214; G2211

== ENCOUNTER → 2024-08-02 09:54 | Outpatient (BNVA) | payer OTHER, SELFPAY | PROVIDERS: PCP Family Medicine; Visit Provider Urology | DX: R33.9 Retention of urine, unspecified (principal); N30.90 Cystitis, unspecified without hematuria; N32.81 Overactive bladder; Z79.891 Long term (current) use of opiate analgesic; Z79.899 Other long term (current) drug therapy | CPT/HCPCS: 51700; 51798; 99212 ==